=== PATIENT | female | born 1980 | race African-American/Black ===

== ENCOUNTER 2022-09-22 17:31 | Emergency (ER) | payer OTHER ==
--- OUTSIDE RECORDS SUMMARY | 2022-09-22 17:43 | XMS REPORT | Continuity of Care Document ---
:1980 Author Organization [facility] t Address [address] [facility] [address] [place] [address] Care Team Providers Name Role Phone Asked, No Pcp Primary Care Physician Unavailable ADAMS_R Attending Clinician Unavailable Yenny MORENO, Blanco Sanchez Attending Clinician [phone] Tyler MORENO, Yusuf Brown Attending Clinician Evelia Navarrete RN Attending Clinician Unavailable Sae MORENO, Samantha Rushing Attending Clinician [phone] 1 Mateo RNAndria Attending Clinician Unavailable Hallie Medina Attending Clinician Unavailable Brandee Xavier DO Attending Clinician Ramu RNHemalatha Attending Clinician Unavailable Primo MORENO, Ishaan Mercado Attending Clinician Cecilia Obrien MD Attending Clinician Nadege Obrien MD Attending Clinician Den Lea Attending Clinician Noah MORENO, David Britt Attending Clinician Marga MORENO, Nan Attending Clinician Demetrio HAMMOND, Keith Irvin Attending Clinician [phone] Cleo GUTIERRES Attending Clinician Cong Pearson Attending Clinician Jhon Cherry MD Attending Clinician [phone] JIMMIE ALVARADO Attending Clinician Unavailable Marshal Maya Attending Clinician Unavailable Yusuf Castle Attending Clinician Unavailable Delisa Shepherd Attending Clinician Unavailable Chuy Vega Attending Clinician Unavailable ANDRIY_Gee Admitting Clinician Unavailable YUSUF BRADY Admitting Clinician Unavailable Physician, No Primary or Family Admitting Clinician UnavailCECILIA Ray Admitting Clinician Unavailable MD ISHAAN TILLMAN Admitting Clinician Unavailable Marshal Maya Admitting Clinician Unavailable Yusuf Castle Admitting Clinician Unavailable Delisa Shepherd Admitting Clinician Unavailable UNDEFINED Admitting Clinician Unavailable KNOW, DOES_NOT Admitting Clinician Unavailable Payers Payer Name Policy Type Policy Number Effective Date Expiration Date S ource Problems Condition Condition Condition Status Onset Resolution Last Treating Co mments Source Name Details Category Date Date Treatment Clinician Date Diabetes Diabetes Problem Active Lm t mellitus Mellitus 09-17 Clinic 00:00: 00 Osteomyeli Osteomyeli Problem Active C hrist tis of tis of 09-17 Clinic left foot Left Foot 00:00: 00 Generalize Generalize Disease Active M ethodi d weakness d weakness 09-07 st 00:00: Hospita 00 l 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 09-02 st left foot, left foot, 00:00: Ho spita unspecifie unspecifie 00 l d type d type Left foot Left foot Disease Active Met hodi infection infection 06-16 st 00:00: Hospita 00 l Allergies, Adverse Reactions, Alerts Allergy Allergy Status Severity Reaction(s) Onset Inactive Treating Comm ents Source Name Type Date Date Clinician Sulfa Propensi Active Hives Methodi (Sulfona ty to 3-08 st mide adverse 00:00: Hospita Antibiot reaction 00 l ics) s to drug Sulfa DA Active [place] [facility] (Sulfona 8-17 Clear mide 00:00: [facility] Sulfa DA Active [place] [facility] (Sulfona 4-15 Clear mide 00:00: Jj Antibiot 00 [facility] Social History Social Habit Start Date Stop Date Quantity Comments Source Gender identity [facility] Sexual orientation [facility] History of Social 2022-09-08 2022-09-[address] function 00:00:00 00:00:00 Hospital Alcohol intake 2022-09-02 2022-09-02 Lifetime [facility] 00:00:00 00:00:00 non-drinker Hospital (finding) Tobacco use and 2022-06-16 2022-06-16 Smokeless [facility] 00:00:00 00:00:00 tobacco non-user Hospital Sex Assigned At [birth year] [facility] 00[facility] Smoking Status Start Date Stop Date Source Never Smoker [facility] Medications Ordered Filled Start Stop Current Ordering Indication Dosage Frequency Signature Comments Components Source Medication Medication Date Date Medication? Clinician (SIG) Name Name insulin Yes 26U Q.5D Inject Methodi GLARGINE -[address] (LANTUS) 16:41: (26 Units [facility]osp [facility] 100 unit/mL 13 total) l injection under the (vial) skin 2 (two) times a day. insulin Yes Inject Method[facility] lispro [address] (HUMALOG 16:41: skin. Hospita U-100 13 l INSULIN SUBQ) linezolid 2022- No 600mg Q.5D Take 1 Meth abby (ZYVOX) 600 5-30 06-[address] mg tablet 00:00: 04:59 (600 mg Hosp [facility] 00 :00 total) by l mouth 2 (two) times a day for 14 days. levoFLOXaci 2022- No 750mg QD Take 1 Me thodi n 09-07 06-[address] (Levaquin) 00:00: 04:59 (750 mg Hos isabel 750 MG 00 :00 total) by l tablet mouth daily for 14 days. metroNIDAZO 2022- No 500mg [id number] Take 1 Methodi LE (FlagyL) 09-07 06-[id number] 500 MG 00:00: 04:59 3D (500 mg Hospita tablet 00 :00 total) by l mouth 3 (three) times a day for 14 days. insulin Yes 26U Q.5D Inject Methodi GLARGINE 5-[address] (LANTUS) 11:39: (26 Units [facility]osp [facility] 100 unit/mL 09 total) l injection under the (vial) skin 2 (two) times a day. insulin Yes Inject Methodi lispro 5-[address] (HUMALOG 11:32: skin. Hospita U-100 20 l INSULIN SUBQ) insulin Yes Inject Methodi GLARGINE 3-[address] (LANTUS) 20:22: skin. Hospita 100 unit/mL 02 l injection (vial) insulin 0 Yes Inject Method[facility] lispro 3-[address] (HUMALOG 20:22: skin. Hospita U-100 02 l INSULIN SUBQ) polyethylen 2022- No 17g QD Take 17 g Methodi e glycol 3-16 04-[address] (MIRALAX) 00:00: 04:59 daily for Ho spita 17 gram 00 :00 30 days. l packet polyethylen 2022-0 2022- No 17g QD Take 17 g Methodi e glycol 3-16 04-[address] (MIRALAX) 00:00: 04:59 daily for Ho spita 17 gram 00 :00 30 days. l packet polyethylen 2022-0 2022- No 17g QD Take 17 g Methodi e glycol 3-16 04-[address] (MIRALAX) 00:00: 04:59 daily for Ho spita 17 gram 00 :00 30 days. l packet cefTRIAXone 2022-0 2022- No 2g Q24H Infuse 2 g Methodi (ROCEPHIN) 3-16 03-[address] 2 g in 100 00:00: 04:59 venous Hosp [facility] ML Mini-Bag 00 :00 catheter l Plus daily for 14 days. cefTRIAXone 2022- No 2g Q24H Infuse 2 g Methodi (ROCEPHIN) 06-[address] 2 g in 100 00:00: 04:59 venous [facility]osp [facility]a ML Mini-Bag 00 :00 catheter l Plus daily for 14 days. cefTRIAXone 0 2022- No 2g Q24H Infuse 2 g Methodi (ROCEPHIN) 06-[address] 2 g in 100 00:00: 04:59 venous Hosp [facility] ML Mini-Bag 00 :00 catheter l Plus daily for 14 days. [place]DRO[place] [id number] 1{tbl} Q6H Take 1 M ethodi -acetaminop 3-[address] hen (WatchParty) 00:00: mouth Hospi ta 7.5-325 mg 00 every 6 l per tablet (six) hours as needed for severe pain .acute pain. Max Daily Amount: 4 tablets naloxone 0 Yes .2mg Infuse 0.5 Met hodi (NARCAN) 3-15 mL (0.[address] 0.4 mg/mL 00:00: total) Hospit a injection 00 into a l venous catheter once as needed for opioid reversal or respirator y depression (as needed for respirator y rate 8 per minute or less OR patient sommnolent and difficult to arouse (POSS GREATER than 3).). HYDROcodone Yes [id number] 1{tbl} Q6H Take 1 M ethodi -acetaminop 3-[address] hen (WatchParty) 00:00: mouth Hospi ta 7.5-325 mg 00 every 6 l per tablet (six) hours as needed for severe pain .acute pain. Max Daily Amount: 4 tablets naloxone 2022-0 Yes .2mg Infuse 0.5 Met hodi (NARCAN) 3-15 mL (0.[address] 0.4 mg/mL 00:00: total) Hospit a injection 00 into a l venous catheter once as needed for opioid reversal or respirator y depression (as needed for respirator y rate 8 per minute or less OR patient sommnolent and difficult to arouse (POSS GREATER than 3).). HYDROcodone Yes [id number] 1{tbl} Q6H Take 1 M ethodi -acetaminop 3-[address] hen (NORCO) 00:00: mouth Hospi ta 7.5-325 mg 00 every 6 l per tablet (six) hours as needed for severe pain .acute pain. Max Daily Amount: 4 tablets naloxone Yes .2mg Infuse 0.5 Met hodi (NARCAN) 3-15 mL (0.[address] 0.4 mg/mL 00:00: total) Hospit a injection 00 into a l venous catheter once as needed for opioid reversal or respirator y depression (as needed for respirator y rate 8 per minute or less OR patient sommnolent and difficult to arouse (POSS GREATER than 3).). bisacodyL 2022- No 10mg Q24H Insert 1 Met hodi (DULCOLAX) 3-15 -[address] 10 mg 00:00: 04:59 y (10 mg Hospita suppository 00 :00 total) l into the rectum daily as needed for constipati on for up to 30 days. lactulose 2022- No 20g Q.5D Take 30 mL M ethodi 20 gram/30 -15 -15 ([address] mL solution 00:00: 04:59 total) by Hospita 00 :00 mouth 2 l (two) times a day as needed (constipat ion) for up to 30 days. ondansetron 2022- No 4mg Q8H Take 1 Met hodi ODT 3-15 -15 tablet (4 st (ZOFRAN-ODT 00:00: 04:59 mg total) Hospita ) 4 MG 00 :00 by mouth l disintegrat every 8 ing tablet (eight) hours as needed for nausea or vomiting for up to 30 days. sennosides- 2022- No 2{tbl} Q.5D Take 2 M ethodi docusate 3-15 04-[address] sodium 00:00: 04:59 mouth 2 Hospita (SENOKOT-S) 00 :00 (two) l 8.6-50 mg times a per tablet day for 30 days. bisacodyL 2022-0 3- No 10mg Q24H Insert 1 Met hodi (DULCOLAX) 3-15 04-[address] 10 mg 00:00: 04:59 y (10 mg Hospita suppository 00 :00 total) l into the rectum daily as needed for constipati on for up to 30 days. lactulose 2022-0 2023- No 20g Q.5D Take 30 mL M ethodi 20 gram/30 3-15 04-15 ([address] mL solution 00:00: 04:59 total) by Hospita 00 :00 mouth 2 l (two) times a day as needed (constipat ion) for up to 30 days. ondansetron 2022-0 2022- No 4mg Q8H Take 1 Met hodi ODT 3-15 04-15 tablet (4 st (ZOFRAN-ODT 00:00: 04:59 mg total) Hospita ) 4 MG 00 :00 by mouth l disintegrat every 8 ing tablet (eight) hours as needed for nausea or vomiting for up to 30 days. sennosides- 2022-0 2022- No 2{tbl} Q.5D Take 2 M ethodi docusate 3-15 04-[address] sodium 00:00: 04:59 mouth 2 Hospita (SENOKOT-S) 00 :00 (two) l 8.6-50 mg times a per tablet day for 30 days. bisacodyL 2022-0 3- No 10mg Q24H Insert 1 Met hodi (DULCOLAX) 3-15 04-[address] 10 mg 00:00: 04:59 y (10 mg Hospita suppository 00 :00 total) l into the rectum daily as needed for constipati on for up to 30 days. lactulose 3-0 2023- No 20g Q.5D Take 30 mL M ethodi 20 gram/30 3-15 04-15 ([address] mL solution 00:00: 04:59 total) by Hospita 00 :00 mouth 2 l (two) times a day as needed (constipat ion) for up to 30 days. ondansetron 2022-0 2023- No 4mg Q8H Take 1 Met hodi ODT 3-15 04-15 tablet (4 st (ZOFRAN-ODT 00:00: 04:59 mg total) Hospita ) 4 MG 00 :00 by mouth l disintegrat every 8 ing tablet (eight) hours as needed for nausea or vomiting for up to 30 days. sennosides- 2022-0 2022- No 2{tbl} Q.5D Take 2 M ethodi docusate 3-15 04-[address] sodium 00:00: 04:59 mouth 2 Hospita (SENOKOT-S) 00 :00 (two) l 8.6-50 mg times a per tablet day for 30 days. Humalog Humalog No Humalog Porter Jamie [facility] KwikPen KwikPen KwikPen (U-100) 100 (U-100) 100 (U-100) unit/mL unit/mL 100 subcutaneou subcutaneou unit/mL s half-unit s half-unit subcutaneo pen Inject pen Inject us by by half-unit subcutaneou subcutaneou pen Inject s route. s route. by subcutaneo us route. Lantus Lantus No Lantus [facility] U-100 U-100 U-100 Clinic Insulin 100 Insulin 100 Insulin unit/mL unit/mL 100 subcutaneou subcutaneou unit/mL s solution s solution subcutaneo INJECT 25 INJECT 25 us UNITS UNDER UNITS UNDER solution THE SKIN THE SKIN INJECT 25 TWICE A DAY TWICE A DAY UNITS UNDER THE SKIN TWICE A DAY levofloxaci levofloxaci No 1 Q1D levofloxac Porter n 750 mg n 750 mg in 750 mg Cl inic tablet Take tablet Take tablet 1 tablet 1 tablet Take 1 every day every day tablet by oral by oral every day route. route. by oral route. linezolid linezolid No 1 Q12H linezolid Porter 600 mg 600 mg 600 mg Clinic tablet Take tablet Take tablet 1 tablet 1 tablet Take 1 every 12 every 12 tablet hours by hours by every 12 oral route oral route hours by for 14 for 14 oral route days. days. for 14 days. metronidazo metronidazo No metronidaz [facility] le 500 mg le 500 mg ole 500 mg Clinic tablet TAKE tablet TAKE tablet 1 TABLET BY 1 TABLET BY TAKE 1 MOUTH THREE MOUTH THREE TABLET BY TIMES DAILY TIMES DAILY MOUTH THREE TIMES DAILY Vital Signs Vital Name Observation Time Observation Value Comments Source BP Diastolic 2022-09-17 00:00:00 95 mm[Hg] [facility] Height 2022-09-17 00:00:00 71 [in_i] [facility] BP Systolic 2022-09-17 00:00:00 146 mm[Hg] [facility] Systolic blood 2022-09-08 12:46:54 146 mm[Hg] [facility] Hospital pressure Diastolic blood 2022-09-08 12:46:54 81 [facility]Hg[facility] Heart rate 2022-09-08 12:46:54 88 /min [facility] Body temperature 2022-09-08 12:46:54 36.94 Latricia [facility] Respiratory rate 2022-09-08 12:46:54 18 /min [facility] Oxygen saturation in 2022-09-08 12:46:54 99 /min [facility] Arterial blood by Pulse oximetry Systolic blood 2022-09-07 21:09:01 142 mm[Hg] Method ist Hospital pressure Diastolic blood 2022-09-07 21:09:01 74 mm[Hg] [facility] pressure Heart rate 2022-09-07 21:09:01 80 /min [facility] Body temperature 2022-09-07 21:09:01 36.83 Latricia [facility] Respiratory rate 2022-09-07 21:09:01 16 /min [facility] Oxygen saturation in 2022-09-07 21:09:01 100 /min [facility] Arterial blood by Pulse oximetry Body weight 2022-09-02 11:00:00 102.3 kg [facility] BMI 2022-09-02 11:00:00 32.36 kg/m2 [facility] Body height 2022-09-02 04:07:00 177.8 cm [facility] Systolic blood 2022-08-05 22:33:32 119 mm[Hg] [facility] Hospital pressure Diastolic blood 2022-08-05 22:33:32 71 mm[Hg] [facility] Hospital pressure Heart rate 2022-08-05 22:33:32 95 /min [facility] Body temperature 2022-08-05 22:33:32 36.72 Latricia [facility] Respiratory rate 2022-08-05 22:33:32 19 /min [facility] Oxygen saturation in 2022-08-05 22:33:32 100 /min [facility] Arterial blood by Pulse oximetry Body height 2022-06-17 04:34:00 177.8 cm [facility] Body weight 2022-06-17 04:34:00 157.8 kg [facility] BMI 2022-06-17 04:34:00 49.92 kg/m2 [facility] Procedures Procedure Date / Time Performing Clinician Source Performed POC GLUCOSE 2022-09-08 17:31:00 Moosavi, Yusuf [facility] POC GLUCOSE 2022-09-08 13:53:00 Moosavi, Yusuf [facility] POC GLUCOSE 2022-09-08 12:48:00 Tyler, Yusuf [facility] CBC WITH PLATELET AND 2022-09-08 10:45:00 Elvira Rodriguez [facility] DIFFERENTIAL BASIC METABOLIC PANEL 2022-09-08 10:45:00 Elvira Rodriguez [facility] ESTIMATED GFR 2022-09-08 10:45:00 Elvira Rodriguez [facility] MANUAL DIFFERENTIAL 2022-09-08 10:45:00 Elvira Rodriguez [facility] POC GLUCOSE 2022-09-08 01:19:00 Moosavi, Yusuf [facility] POC GLUCOSE 2022-09-07 22:22:00 Moosavi, Yusuf [facility] POC GLUCOSE 2022-09-07 16:17:00 Moosavi, Yusuf [facility] POC GLUCOSE 2022-09-07 12:24:00 Moosachata, Uysuf [facility] CBC WITH PLATELET AND 2022-09-07 09:47:00 Elvira Rodriguezhad [facility] DIFFERENTIAL BASIC METABOLIC PANEL 2022-09-07 09:47:00 Elvira Rodriguez [facility] CREATINE KINASE, TOTAL 2022-09-07 09:47:00 Idalia Glaser [facility] (CPK) ESTIMATED GFR 2022-09-07 09:47:00 Elvira Rodriguez [facility] PICC INSERTION REQUEST 2022-09-07 03:03:[address]asp[address]Dean [facility] POC GLUCOSE 2022-09-07 02:59:00 Moosavi, Yusuf [facility] POC GLUCOSE 2022-09-07 01:08:00 Moosavi, Yusuf [facility] POC GLUCOSE 2022-09-06 22:29:00 Moosavi, Yusuf [facility] POC GLUCOSE 2022-09-06 17:04:00 Moosavi, Yusuf [facility] POC GLUCOSE 2022-09-06 13:20:00 Moosavi, Yusuf [facility] BASIC METABOLIC PANEL 2022-09-06 09:05:00 [facility] WITH [facility] AND 2022-09-06 09:05:00 Elvira Rodriguez [facility] DIFFERENTIAL ESTIMATED GFR 2022-09-06 09:05:00 RudolphBambi [facility] POC GLUCOSE 2022-09-06 04:09:00 Moosavi, Yusuf [facility] POC GLUCOSE 2022-09-06 00:34:00 Moosavi, Yusuf [facility] POC GLUCOSE 2022-09-05 22:53:00 Moosavi, Yusuf [facility] POC GLUCOSE 2022-09-05 18:00:00 Moosavi, Yusuf [facility] TTE COMPLETE, WO CONTRAST, 2022-09-05 15:28:21 Idalia Glaser [facility] W DOPPLER ([id number]) CBC WITH PLATELET AND 2022-09-05 15:02:00 [facility] METABOLIC PANEL 2022-09-05 13:38:00 Rudolph [facility] ESTIMATED GFR 2022-09-05 13:38:00 [facility] 2022-09-05 13:27:00 Moosavi, Yusuf [facility] CREATININE LEVEL 2022-09-05 10:53:00 [facility] ESTIMATED GFR 2022-09-05 10:53:00 [facility] POC GLUCOSE 2022-09-05 06:19:00 Moosavi, Yusuf [facility] POC GLUCOSE 2022-09-05 01:49:00 Moosavi, Yusuf [facility] POC GLUCOSE 2022-09-04 23:37:00 Moosavi, Yusuf [facility] POC GLUCOSE 2022-09-04 19:17:00 Moosavi, Yusuf [facility] POC GLUCOSE 2022-09-04 18:25:00 Moosavi, Yusuf [facility] POC GLUCOSE 2022-09-04 13:58:00 Moosavi, Yusuf [facility] BLOOD CULTURE, AEROBIC & 2022-09-04 08:11:00 [facility] ANAEROBIC CREATININE LEVEL 2022-09-04 08:10:00 [facility] VANCOMYCIN LEVEL, RANDOM 2022-09-04 08:10:00 [facility] ESTIMATED GFR 2022-09-04 08:10:00 [facility] POC GLUCOSE 2022-09-04 02:59:00 Moosavi, Yusuf [facility] POC GLUCOSE 2022-09-04 01:50:00 Moosavi, Yusuf [facility] POC GLUCOSE 2022-09-03 22:20:00 Moosavi, Yusuf [facility] POC GLUCOSE 2022-09-03 17:45:00 Moosavi, Yusuf [facility] POC GLUCOSE 2022-09-03 14:43:00 Moosavi, Yusuf [facility] VANCOMYCIN LEVEL, RANDOM 2022-09-03 13:57:00 [facility] CREATININE LEVEL 2022-09-03 13:57:00 [facility] ESTIMATED GFR 2022-09-03 13:57:00 Jailyn [facility] POC GLUCOSE 2022-09-03 13:22:00 Moosavi, Yusuf [facility] POC GLUCOSE 2022-09-03 03:49:00 Moosavi, Yusuf [facility] MRI LOWER EXTREMITY JOINT 2022-09-03 03[facility] Chika MRI LOWER EXTREMITY W WO 2022-09-03 03:29:34 Jailyn [facility] CONTRAST LEFT POC GLUCOSE 2022-09-03 01:20:00 Moosavi, Yusuf [facility] spital [facility] METHICILLIN-RESISTANT 2022-09-03 00:58:00 [facility] STAPHYLOCOCCUS AUREUS (MRSA), ANIRUDH POC GLUCOSE 2022-09-02 23:19:00 Moosavi, Yusuf [facility] spital [facility]ada[facility] POC GLUCOSE 2022-09-02 22:05:00 Moosavi, Yusuf [facility] POC GLUCOSE 2022-09-02 19:18:00 Moosavi, Yusuf [facility] POC GLUCOSE 2022-09-02 18:24:00 Moosavi, [facility] spital [facility] AEROBIC CULTURE 2022-09-02 17:37:00 Bryson [facility] GRAM STAIN 2022-09-02 17:37:00 Bryson [facility] ANAEROBIC CULTURE 2022-09-02 17:37:00 Bryson [facility] POC GLUCOSE 2022-09-02 15:16:00 Moosavi, Yusuf [facility] spital [facility] CBC WITH PLATELET AND 2022-09-02 11:35:00 Ian Raymundo [facility] DIFFERENTIAL COMPREHENSIVE METABOLIC 2022-09-02 11:35:00 Ian Raymundo [facility] PANEL LACTIC ACID LEVEL, SEPSIS 2022-09-02 11:35:00 Murphy Ramon [facility] - NOW AND REPEAT 2X EVERY Go 3 HOURS ESTIMATED GFR 2022-09-02 11:35:00 Ian Raymundo [facility] HEMOGLOBIN A1C 2022-09-02 11:35:00 Idalia Glaser [facility] URINE CULTURE 2022-09-02 11:32:00 [facility] Go URINALYSIS SCREEN AND 2022-09-02 11:32:00 [facility] MICROSCOPY, WITH REFLEX TO Go CULTURE POC GLUCOSE 2022-09-02 08:30:00 Yusuf Brady [facility] LACTIC ACID LEVEL, SEPSIS 2022-09-02 08:04:00 [facility] - NOW AND REPEAT 2X EVERY Go 3 HOURS BLOOD CULTURE, AEROBIC & 2022-09-02 05:01:00 [facility] ANAEROBIC Go BLOOD CULTURE, AEROBIC & 2022-09-02 05:00:00 [facility] ANAEROBIC Go LACTIC ACID LEVEL, SEPSIS 2022-09-02 05:00:00 [facility] - NOW AND REPEAT 2X EVERY Go 3 HOURS CBC WITH PLATELET AND 2022-09-02 05:00:00 [facility] DIFFERENTIAL Go COMPREHENSIVE METABOLIC 2022-09-02 05:00:00 [facility] PANEL Go PROTHROMBIN TIME WITH INR 2022-09-02 05:00:00 [facility] Go PARTIAL THROMBOPLASTIN 2022-09-02 05:00:00 [facility] TIME (PTT) Go ESTIMATED GFR 2022-09-02 05:00:00 [facility] Go BLOOD CULTURE, AEROBIC & 2022-08-27 08:24:[address] [facility] ANAEROBIC Kristan LACTIC ACID, I-STAT 2022-08-27 07:46:00 [facility] BLOOD CULT[facility], AEROBIC & 2022-08-27 07:05:[address] [facility] ANAEROBIC Kristan CBC WITH PLATELET AND 2022-08-27 07:05:00 Samantha Quevedo Method [facility] DIFFERENTIAL Kristan COMPREHENSIVE METABOLIC 2022-08-27 07:05:00 [facility] PANEL Kristan ESTIMATED GFR 2022-08-27 07:05:00 [facility] 2022-08-27 07:05:00 [facility] XR FOOT 2 VW LEFT 2022-08-27 05:27:45 [facility] POC GLUCOSE 2022-06-23 21:22:[address] [facility] VENIP[facility] NEED PHYS 2022-06-23 19:40:32 AltreVeronique [facility] SKILL,DX OR RX POC GLUCOSE 2022-06-23 17:09:00 [facility] POC GLUCOSE 2022-06-23 13:10:00 [facility] BASIC METABOLIC PANEL 2022-06-23 10:48:00 Keith Atkinson [facility] CBC WITH PLATELET AND 2022-06-23 10:48:00 Marga [facility] DIFFERENTIAL ESTIMATED GFR 2022-06-23 10:48:00 Keith Atkinson [facility] POC GLUCOSE 2022-06-23 10:01:00 [facility] POC GLUCOSE 2022-06-23 02:27:00 Marga, [facility] POC GLUCOSE 2022-06-22 21:26:00 [facility] POC GLUCOSE 2022-06-22 16:54:00 [facility] POC GLUCOSE 2022-06-22 12:51:00 [facility] POC GLUCOSE 2022-06-22 08:09:00 David Zamora POC GLUCOSE 2022-06-22 01:38:00 Zamora, David [facility] POC GLUCOSE 2022-06-21 21:53:00 Zamora, David [facility] POC GLUCOSE 2022-06-21 17:36:00 Zamora, David [facility] POC GLUCOSE 2022-06-21 12:40:00 Zamora, David [facility] POC GLUCOSE 2022-06-21 09:38:00 Zamora, David [facility] POC GLUCOSE 2022-06-21 01:21:00 Zamora, David [facility] POC GLUCOSE 2022-06-20 20:46:00 Zamora, David [facility] POC GLUCOSE 2022-06-20 13:09:00 Zamora, David [facility] COMPREHENSIVE METABOLIC 2022-06-20 09:10:00 [facility] [facility] PANEL [facility] ESTIMATED GFR 2022-06-20 09:10:00 MicahNadege capellan Ho spital VANCOMYCIN LEVEL, TROUGH 2022-06-20 09:10:00 [facility] CBC WITH PLATELET AND 2022-06-20 09:10:00 Zamora, [facility] DIFFERENTIAL Balwinder POC GLUCOSE 2022-06-20 03:12:00 Zamora, David [facility] Balwinder POC GLUCOSE 2022-06-19 23:02:00 Zamora, David [facility] Balwinder POC GLUCOSE 2022-06-19 18:12:00 Zamora, David Bateman Ho spital Balwinder XR FOOT 3+ VW LEFT 2022-06-19 15:16:52 Demetrio, [facility] POC GLUCOSE 2022-06-19 14:43:00 Zamora, David Ghosh spital Balwinder FUNGUS CULTURE 2022-06-19 14:22:00 Demetrio bebo Ghosh spital [employer] CULTURE 2022-06-19 14:22:00 Keith Atkinson spital [employer] GRAM STAIN 2022-06-19 14:22:00 [facility]GICAL PATHOLOGY REQUEST 2022-06-19 13:59:00 [facility], FOOT, 2022-06-19 13:50:00 Demetrio [facility] TRANSMETATARSAL Brandee ANAEROBIC CULTURE 2022-06-19 13:22:00 Demetrio [facility] Brandee AEROBIC CULTURE 2022-06-19 13:22:00 Keith Atkinson [facility] Brandee FUNGUS SMEAR 2022-06-19 13:22:00 [facility] [employer] STAIN 2022-06-19 13:22:00 [facility]rio [facility] Brandee COMPREHENSIVE METABOLIC 2022-06-19 12:12:00 Demetrio bebo [facility] PANEL Brandee CBC WITH PLATELET AND 2022-06-19 12:12:00 [facility] Brandee ESTIMATED GFR 2022-06-19 12:12:00 Dem[facility]rio [facility] Brandee PROTHROMBIN TIME WITH INR 2022-06-19 12:12:00 [facility] Yusuf POC GLUCOSE 2022-06-19 09:46:00 [facility] Yusuf ESTIMATED GFR 2022-06-19 08:29:00 [facility] Yusuf POC GLUCOSE 2022-06-19 05:34:00 [facility] Yusuf POC GLUCOSE 2022-06-19 02:27:00 [facility] Yusuf POC GLUCOSE 2022-06-18 22:10:00 [facility] Yusuf BASIC METABOLIC PANEL 2022-06-18 20:30:[address] [facility] Brandee CBC WITH PLATELET AND 2022-06-18 20:30:[address] [facility] DIFFERENTIAL Kunjan ESTIMATED GFR 2022-06-18 20:30:00 [facility] Yusuf POC GLUCOSE 2022-06-18 14:21:00 [facility] Yusuf [place] AN ELECTIVE 2022-06-18 12:59:18 Lilian Pineda Ho spital [employer] [place] POC GLUCOSE 2022-06-18 12:29:00 [facility] Yusuf POC GLUCOSE 2022-06-18 03:30:00 [facility] Yusuf POC GLUCOSE 2022-06-17 22:13:00 [facility] Yusuf POC GLUCOSE 2022-06-17 18:07:00 [facility] Yusuf XR FOOT 3+ VW LEFT 2022-06-17 16:53:57 Demetrio [facility] SURGICAL PATHOLOG[facility] REQUEST 2022-06-17 15:10:00 [facility] Yusuf POC GLUCOSE 2022-06-17 14:35:00 [facility] Yusuf POC GLUCOSE 2022-06-17 13:35:00 [facility] Yusuf FUNGUS CULTURE 2022-06-17 13:12:00 Keith Atkinson spital [employer] CULTURE 2022-06-17 13:12:00 Keith Atkinson spital [employer] GRAM STAIN 2022-06-17 13:12:00 Demetrio bebo Ghosh spital [employer] AMPUTATION, FOOT, 2022-06-17 12:43:00 Demetrio [facility] TRANSMETATARSAL Brandee ANAEROBIC CULTURE 2022-06-17 12:12:00 [facility] AEROBIC CULTURE 2022-06-17 12:12:00 Keith Atkinson spital [employer] STAIN 2022-06-17 12:12:00 Keith Atkinson spital [employer] ABO AND RH CONFIRMATION BY 2022-06-17 12:08:00 Nadege Obrien [facility] PROTOCOL PROTHROMBIN TIME WITH INR 2022-06-17 11:45:00 Keith Atkinson [facility] Brandee TYPE AND SCREEN 2022-06-17 11:45:00 Keith Atkinson spital Brandee POC GLUCOSE 2022-06-17 11:42:00 Nadege Obrien Ho spital US DUPLEX ARTERIAL LOWER 2022-06-17 10:30:[address] [facility] EXTREMITY LEFT CBC HEMOGRAM 2022-06-17 10:20:00 Nadege Obrien spital MAGNESIUM LEVEL 2022-06-17 10:20:00 Nadege Obrien spital THYROID STIMULATING 2022-06-17 10:20:00 Nadege Obrien [facility] HORMONE CREATINE KINASE, TOTAL 2022-06-17 10:20:00 Nadege Obrien [facility] ([facility] VITAMIN B12 LEVEL 2022-06-17 10:20:00 [facility] Brand[facility] B NATRIURETIC PEPTIDE 2022-06-17 10:20:00 Nadege Obrien [facility] PROCALCITONIN 2022-06-17 10:20:00 Keith Atkinson spital Brandee COMPREHENSIVE METABOLIC 2022-06-17 10:20:00 Nadege Obrien [facility] PANEL ESTIMATED GFR 2022-06-17 10:20:00 Nadege Obrien spital AMYLASE LEVEL 2022-06-17 10:20:00 Nadege Obrien spital FERRITIN LEVEL 2022-06-17 10:20:00 Nadege Obrien spital TOTAL IRON BINDING 2022-06-17 10:20:00 Micah [facility] CAPACITY URINE CULTURE 2022-06-17 08:11:[address] LOWER EXTREMITY WO 2022-06-17 08:09:39 Nadege Obrien [facility] CONTRAST LEFT CT HEAD WO CONTRAST 2022-06-17 07:54:30 Micah [facility] URINALYSIS SCREEN AND 2022-06-17 07:40:00 [facility] MICROSCOPY, WITH REFLEX TO CULTURE SODIUM LEVEL, URINE, 2022-06-17 07:40:00 [facility] RANDOM CHLORIDE LEVEL, URINE, 2022-06-17 07:40:00 [facility] RANDOM OSMOLALITY, URINE 2022-06-17 07:40:00 [facility] HCG QUALITATIVE, URINE 2022-06-17 07:40:00 [facility] SCREEN ECG 12-LEAD 2022-06-17 06:15:21 [facility] spital METHICILLIN-RESISTANT 2022-06-17 05:35:00 [facility] STAPHYLOCOCCUS AUREUS (MRSA), ANIRUDH LACTIC ACID LEVEL 2022-06-17 05:35:00 [facility] PROCALCITONIN 2022-06-17 05:35:00 [facility] spital XR FOOT 3+ VW LEFT 2022-06-17 04:01:51 [facility] Rogelio TROPONIN T 2022-06-17 03:46:00 [facility] hyac[facility]htal Brandee TROPONIN, I-STAT 2022-06-17 00:39:00 Keith Atkinsonist H ospital Brandee SEDIMENTATION RATE 2022-06-17 00:39:00 [facility] Rogelio C-REACTIVE PROTEIN 2022-06-17 00:39:00 [facility] Rogelio CT RENAL STONE PROTOCOL 2022-06-16 23:59:00 [facility] Rogelio XR CHEST 2 VW 2022-06-16 23:58:45 [facility] spital Rogelio COVID-19, INFLUENZA A&B, 2022-06-16 21:58:00 [facility] AND RSV QUALITATIVE RT-PCR Rogelio CBC WITH PLATELET AND 2022-06-16 21:58:00 [facility] DIFFERENTIAL Rogelio COMPREHENSIVE METABOLIC 2022-06-16 21:58:00 [facility] PANEL Rogelio TROPONIN, I-STAT 2022-06-16 21:58:00 Keith Atkinson NATRIURETIC PEP, I-STAT 2022-06-16 21:58:00 Ishaan Tillman [facility] Rogelio AMYLASE LEVEL 2022-06-16 21:58:00 Ishaan Tillman Ho spital Rogelio ESTIMATED GFR 2022-06-16 21:58:00 Ishaan Tillman spital Rogelio MANUAL DIFFERENTIAL 2022-06-16 21:58:00 [facility] ED PRELIMINARY 2022-06-16 21:57:50 [facility] INTERPRETATION Rogelio BLOOD CULTURE, AEROBIC & 2022-06-16 21:05:[address] [facility] ANAEROBIC Rogelio BLOOD CULTURE, AEROBIC & 2022-06-16 21:00:[address] [facility] ANAEROBIC Rogelio ECG 12-LEAD 2022-06-15 21:51:22 Nadege Obrien Ho spital [id number] 2022-02-12 00:00:00 [facility] [id number] 2022-02-12 00:00:00 [facility] [id number] 2022-02-08 00:00:00 [facility] [id number] 2021-11-30 00:00:00 BOKSY [facility] [id number] 2021-11-27 00:00:00 SCOTTIE.01 [facility] [id number] 2021-11-27 00:00:00 SCOTTIE.01 [facility] [id number] 2021-10-15 00:00:00 NASLI.01 [facility] [id number] 2021-10-14 00:00:00 NASLI.01 [facility] [id number] 2021-10-12 00:00:00 NASLI.01 [facility] [id number] 2021-10-08 00:00:00 [facility] [id number] 2021-10-08 00:00[facility] [id number] 2021-10-08 [facility] Plan of Care Planned Activity Planned Date Details Comments Source Future Scheduled 2022-09-17 COVID-19 VACCINE (#1) [facility] Test 09:10:33 [code = COVID-19 VACCINE (#1)] Future Scheduled 2022-09-17 Pneumococcal Vaccine: [facility] Test 09:10:33 Pediatrics (0 to 5 Years) and At-Risk Patients (6 to 64 Years) (1 - PCV) [code = Pneumococcal Vaccine: Pediatrics (0 to 5 Years) and At-Risk Patients (6 to 64 Years) (1 - PCV)] Future Scheduled 2022-09-17 DIABETES: RETINAL EYE [facility] Test 09:10:33 EXAM [code = DIABETES: RETINAL EYE EXAM] Future Scheduled 2022-09-17 [facility] 09:10:33 [code = URINE MICROALBUMIN] Future Scheduled 2022-09-17 Hepatitis C screening [facility] Test 09:10:33 (procedure) [code = 155275713] Future Scheduled 2022-09-17 [facility] Test 09:10:33 malignant neoplasm of cervix (procedure) [code = 626232675] Future Scheduled 2022-09-17 BREAST CANCER [facility] Test 09:10:33 SCREENING [code = BREAST CANCER SCREENING] Future Scheduled 2022-09-17 INFLUENZA VACCINE [facility] 09:10:33 [code = INFLUENZA VACCINE] Future Scheduled 2022-09-17 [facility]ETIC [facility] Test 09:10:33 [code = DIABETIC FOOT EXAM] Diagnostic Test 2022-09-17 HbA1c (hemoglobin [facility] Pending 00:00:00 A1c), blood [code = HbA1c (hemoglobin A1c), blood] Diagnostic Test 2022-09-17 glucose, fingerstick, [facility] Pending 00:00:00 blood [code = glucose, fingerstick, blood] Future Scheduled 2022-09-07 COVID-19 VACCINE (#1) [facility] Test 14:47:37 [code = COVID-19 VACCINE (#1)] Future Scheduled 2022-09-07 Pneumococcal Vaccine: [facility] Test 14:47:37 Pediatrics (0 to 5 Years) and At-Risk Patients (6 to 64 Years) (1 - PCV) [code = Pneumococcal Vaccine: Pediatrics (0 to 5 Years) and At-Risk Patients (6 to 64 Years) (1 - PCV)] Future Scheduled 2022-09-07 DIABETES: RETINAL EYE [facility] Test 14:47:37 EXAM [code = DIABETES: RETINAL EYE EXAM] Future Scheduled 2022-09-07 [facility] Test 14:47:37 [code = URINE MICROALBUMIN] Future Scheduled 2022-09-07 Hepatitis C screening [facility] Test 14:47:37 (procedure) [code = 173198102] Future Scheduled 2022-09-07 [facility] Test 14:47:37 malignant neoplasm of cervix (procedure) [code = 128465556] Future Scheduled 2022-09-07 BREAST CANCER [facility] Test 14:47:37 SCREENING [code = BREAST CANCER SCREENING] Future Scheduled 2022-09-07 INFLUENZA VACCINE [facility] Test 14:47:37 [code = INFLUENZA VACCINE] Future Scheduled 2022-09-07 [facility] Test 14:47:37 [code = DIABETIC FOOT EXAM] Future Scheduled 2022-08-10 COVID-19 VACCINE (#1) [facility] Test 09:04:27 [code = COVID-19 VACCINE (#1)] Future Scheduled 2022-08-10 Pneumococcal Vaccine: [facility] Test 09:04:27 Pediatrics (0 to 5 Years) and At-Risk Patients (6 to 64 Years) (1 - PCV) [code = Pneumococcal Vaccine: Pediatrics (0 to 5 Years) and At-Risk Patients (6 to 64 Years) (1 - PCV)] Future Scheduled 2022-08-10 DIABETES: RETINAL EYE [facility] Test 09:04:27 EXAM [code = DIABETES: RETINAL EYE EXAM] Future Scheduled 2022-08-10 [facility] Test 09:04:27 [code = URINE MICROALBUMIN] Future Scheduled 2022-08-10 Hepatitis C screening [facility] Test 09:04:27 (procedure) [code = 878106340] Future Scheduled 2022-08-10 [facility] Test 09:04:27 malignant neoplasm of cervix (procedure) [code = 110155348] Future Scheduled 2022-08-10 BREAST CANCER [facility] Test 09:04:27 SCREENING [code = BREAST CANCER SCREENING] Future Scheduled 2022-08-10 INFLUENZA VACCINE [facility] Test 09:04:27 [code = INFLUENZA VACCINE] Future Scheduled 2022-08-10 DIABETIC FOOT [facility]AM [facility] Test 09:04: [code = DIABETIC FOOT EXAM] Encounters Start End Encounter Admission Attending Care Care Encounter Source Date/Time Date/Time Type Type Clinicians Facility Department ID 2022-09-20 2022-09-20 Outpatient [facility] [id number] [facility]:00:00 00:00:00 06 Clinic 2022-09-17 2022-09-17 Outpatient [facility] [id number] [facility] 00:00:00 00:00:00 0609 [facility] 2022-09-17 2022-09-17 Tahira [facility] [place] - [facility] 09 [facility] 00:00:00 00:00:00 [facility] Musa Emerson 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 2022-09-16 2022-09-16 Outpatient [facility] [id number] [facility] 00:00:00 00:00:00 0608 [facility] 2022-09-15 2022-09-15 Outpatient [facility] [id number] [facility] 00:00:00 00:00:00 0607 [facility] 2022-09-01 2022-09-08 [facility] Schuyler RamonMason 1.2.840.1 [id number] Methodi 23:08:00 16:41:00 Encounter TylerYusuf 27245.1.[address] 3.430.2.7 Hospit a .3.698031 l .8 2022-09-08 2022-09-08 Orders Evelia Navarrete 1.2.840.1 [id number] Methodi 00:00:00 00:00:[address] 3.430.2.7 Hospit a .3.666407 l .8 2022-09-01 2022-09-08 [facility], 1.2.840.1 [id number] 2099 [id number] [place] 00:00:00 00:00:00 Encounter YUSUF 52729.1.1 [address] .3.172554 .8 2022-09-02 2022-09-02 Travel 1.2.840.1 1.2.601.567 0878 [id number] Methodi 00:00:00 00:00:[address] 3.430.2.7 0.2.7.3.698 Ho spita .3.126171 084.8 l .8 2022-09-02 2022-09-02 Travel 1.2.840.1 1.2.727.437 8596 024058 Methodi 00:00:00 00:00:[address] 3.430.2.7 0.2.7.3.698 Ho spita .3.868087 084.8 l .8 2022-08-26 2022-08-27 Emergency Nweze, 1.2.840.1 [id number] 2099 [id number] Methodi 23:54:00 04:10:[address] Kristan 3.430.2.7 Hosp sonya .3.285749 l .8 2022-08-26 2022-08-27 Emergency Nweze, 1.2.840.1 [id number] 2099 [id number] Methodi 23:54:00 04:10:[address] Kristan 3.430.2.7 Hosp sonya .3.996076 l .8 2022-08-26 2022-08-26 Travel 1.2.840.1 1.2.219.727 2882 049464 Methodi 00:00:00 00:00:[address] 3.430.2.7 0.2.7.3.698 Ho spita .3.957469 084.8 l .8 2022-08-26 2022-08-26 Travel 1.2.840.1 1.2.508.396 7593 819714 Methodi 00:00:00 00:00:[address] 3.430.2.7 0.2.7.3.698 Ho spita .3.585567 084.8 l .8 2022-08-12 2022-08-12 Abstract Mindy Galindoi 1.2.840.1 [id number] 2 [id number] Methodi 00:00:00 00:00:[address] 3.430.2.7 Hospit a .3.899557 l .8 2022-08-12 2022-08-12 Abstract Mateo Andria 1.2.840.1 [id number] 2 [id number] Methodi 00:00:00 00:00:[address] 3.430.2.7 Hospit a .3.201774 l .8 2022-08-10 2022-08-11 Emergency EM Carol, [facility] WENDY [id number] [facility] 18:52:00 00:15:[address] 2022-08-05 2022-08-05 Emergency [facility], 1.2.840.1 [id number] Methodi 18:57:00 20:12:[address] 3.430.2.7 Hospit a .3.317200 l .8 2022-08-05 2022-08-05 Travel 1.2.840.1 1.2.633.373 1175 [id number] Methodi 00:00:00 00:00:[address] 3.430.2.7 0.2.7.3.698 Ho spita .3.812357 084.8 l .8 2022-08-05 2022-08-05 Emergency [facility] 807 [id number] 392 [place] 00:00:00 00:00:[address]AN[address] 2022-08-05 2022-08-05 Travel 1.2.840.1 1.2.825.081 9892 745577 Methodi 00:00:00 00:00:[address] 3.430.2.7 0.2.7.3.698 Ho spita .3.035510 084.8 l .8 2022-06-29 2022-06-29 Orders Obi, Hemalatha 1.2.840.1 [id number] 053 [id number] Methodi 00:00:00 00:00:[address] 3.430.2.7 Hospit a .3.221147 l .8 2022-06-29 2022-06-29 Orders Obi, Hemalatha 1.2.840.1 [id number] Methodi 00:00:00 00:00:[address] 3.430.2.7 Hospit a .3.989411 l .8 2022-06-16 2022-06-23 [facility] Ishaan Tillman 1.2.840.1 1 [id number] Methodi 15:30:00 20:22:00 Encounter Cecilia Obrien 75223.1.[address] Micah, Nadege 3.430.2.7 [facility] .3.869946 l David Zamora .8 Nan Gresham 2022-06-16 2022-06-23 [facility] 1.2.840.1 1 [id number] Methodi 15:30:00 20:22:00 Encounter MicahCecilia capellan 01864.1.[address] Micah, Nadege 3.430.2.7 [facility] Yusuf .3.163917 l David Zamora .8 Nan Gresham 2022-06-19 2022-06-19 Surgery Demetrio, 1.2.840.1 [id number] Methodi 08:00:00 09:20:[address] Kunjan 3.430.2.7 Hospit a .3.736741 l .8 2022-06-19 2022-06-19 Surgery Demetrio, 1.2.840.1 [id number] 9466 Methodi 08:00:00 09:20:[address] Kunjan 3.430.2.7 Hospit a .3.635125 l .8 2022-06-19 2022-06-19 Anesthesia , Cleo 1.2.840.1 [id number] 426 [id number] Methodi 07:50:00 08:39:00 Event Lili, Cong Redd 89670.1.[address] 3.430.2.7 Hospit a .3.706189 l .8 2022-06-19 2022-06-19 Anesthesia Tom, Cleo 1.2.840.1 [id number] 779 [id number] Methodi 07:50:00 08:39:00 Event Lili, Cong Redd 85633.1.[address] 3.430.2.7 Hospit a .3.326043 l .8 2022-06-17 2022-06-17 Surgery Demetrio, 1.2.840.1 [id number] 7373 Methodi 07:10:00 08:40:[address] Kunjan 3.430.2.7 Hospit a .3.621971 l .8 2022-06-17 2022-06-17 Surgery Demetrio, 1.2.840.1 [id number] 3464 Methodi 07:10:00 08:40:[address] Kunjan 3.430.2.7 Hospit a .3.545771 l .8 2022-06-17 2022-06-17 Anesthesia [facility] 1.2.840.1 [id number] Methodi 06:43:00 07:34:00 Event janie, 42935.1.[address] Jhon 3.430.2.7 Hosp sonya .3.819814 l .8 2022-06-17 2022-06-17 Anesthesia Pasdar-Ambar 1.2.840.1 [id number] Methodi 06:43:00 07:34:00 Event janie, 37853.1.[address] Jhon 3.430.2.7 Hosp sonya .3.153550 l .8 2022-06-16 2022-06-16 Travel 1.2.840.1 1.2.928.930 2774 519004 Methodi 00:00:00 00:00:[address] 3.430.2.7 0.2.7.3.698 Ho spita .3.224484 084.8 l .8 2022-06-16 2022-06-16 Travel 1.2.840.1 1.2.610.718 5461 601672 Methodi 00:00:00 00:00:[address] 3.430.2.7 0.2.7.3.698 Ho spita .3.412065 084.8 l .8 2022-03-11 2022-03-11 Outpatient [facility] [id number] [facility] 00:00:00 00:00:00 JIMMIE 2022-02-08 2022-02-13 Inpatient EM CRYSTAL Maya MEDI.01 [id number] [facility] 00:23:00 13:44:00 Musaddiq 12 [facility] 2022-02-08 2022-02-08 Outpatient ONI Maya LABO [id number] [facility] 00:43:00 00:43:00 Musaddiq 97 [facility] 2021-11-25 2021-12-07 Inpatient EM CRYSTAL Castle INTE.02 [id number] [facility] 18:22:00 18:52:00 Yusuf 30 [facility] 2021-10-08 2021-10-22 Inpatient EM MARY Shepherd INTE [id number] [facility] 21:44:00 18:23:00 Delisa [id number] [facility] 2021-10-08 2021-10-22 Inpatient EM Cora, HCACL INTE [id number] [facility] 21:44:00 18:23:00 Delisa 26 [facility] 2021-10-09 2021-10-09 Outpatient NEERU Vega, HCACL LABO [id number] [facility] 00:42:00 00:42:00 Chuy 73 [facility] 2021-10-09 2021-10-09 Outpatient NEERU Vega, HCACL HCACL [id number] [facility] 00:42:00 00:42:00 Chuy [id number] [facility] 2021-10-08 2021-10-08 Emergency EM Silvia, HCAPM WENDY [id number] [facility] 13:58:00 20:10:00 Chuy 63 [facility] 2021-10-08 2021-10-08 Emergency EM Silvia, HCAPM HCAPM [id number] [facility] 13:58:00 20:10:00 Chuy [id number] [facility] 2017-06-17 2017-06-17 [facility] [id number] [place] 00:00:00 00:00:00 [facility] Results Test Description Test Time Test Comments Results Result Comments Source Hemoglobin A1c/Hemoglobin.total in Blood 2022-09-17 15:45:47 Test Item Value Reference Range Interpretation Comme nts HbA1c (test code = HbA1c) 8.2 [facility] [Mass/volume] in Capillary [id number] 15:34:50 Test Item Value Reference Range Interpretation Comments Blood Glucose: mg/dl (test code = Blood 502 Glucose: mg/dl) [facility] [id number] 17:32:00 Test Item Value Reference Range Interpretation Comments POC glucose (test code 119 mg/dL 65-99 H Opera ebenezer Name: Estuardo = 45119-2) UmbargerDevice ID: [id number] able: HMW Notified public health technician Interpretation Abnormal (test code = 47594-4) [facility] [id number] 16:18:00 Test Item Value Reference Range Interpretation Comments POC glucose (test code 160 mg/dL 65-99 H Opera tor Name: Sussy = 82004-0) Sommer ID: [id number] able: HMW Notified public health technician Interpretation Abnormal (test code = 22933-0) [id number] 19:28:00 Test Item Value Reference Interpretation Comments Range Anaerobic culture Porphyromonas A Specimen isolate ([facility] Information[facility] code = 49498-1) performance Source: Woun dSpecimen characteristics of Site: Paxton muñoz, left this assay on this isolatewere validated by the Microbiology Laboratory at [facility]. This source has not been approved by the U.S. Food and Drug Administration. The results are not intended to be used as the sole means for clinical diagnosis or patient management. The Microbiology Laboratory is authorized under the clinical Laboratory Improvement Amendments of 1988 (CLIA-88) to perform high complexity testing. Lab Abnormal Interpretation (test code = 54506-8) [facility] [id number] 19:28:00 Test Item Value Reference Interpretation Comments Range Anaerobic culture Porphyromonas A Specimen isolate ([facility] InformationSpe [facility] code = 86402-7) performance Source: Woun dSpecimen characteristics of Site: Paxton t, leonides this assay on this isolatewere validated by the Microbiology Laboratory at [facility]. This source has not been approved by the U.S. Food and Drug Administration. The results are not intended to be used as the sole means for clinical diagnosis or patient management. The Microbiology Laboratory is authorized under the clinical Laboratory Improvement Amendments of 1988 (CLIA-88) to perform high complexity testing. Lab Abnormal Interpretation (test code = 56947-0) [facility], (w Contrast, Strain and 3D if needed)2022-09-05 15:50:16 Test Item Value Reference Interpretation Comments Range IVS,d (test code = 0.84 cm 0.6-1.19 [id number]) IVS s 2D (test code 1.43 cm = 5567928466) LVPWD,d (test code = 1.07 cm 0.60-1.19 1862779107) LVPW s PLAX (test 1.31 cm code = 6775711425) LV,s (test code = 3.65 cm 3617229432) LV mass (test code = 173.59 g 9913822820) LVOT Diam,S (test 1.97 cm code = 9135424288) LV [place] VOL (test 120.24 ml 46-106 A code = 0384265647) LV SYS VOL (test 56.08 ml 14-42 A code = 2405745623) MV [place] (test 1.00 m/s code = 5769873292) MV [place] A [place] (test 0.60 m/s code = 4389773438) E/A ratio (test code 1.67 <=0.8 A = 3599078024) E wave decelartion 185.12 See_Comment A [Automat ed time (test code = message] T he [id number]) system which generated this result transmitted reference range : 200 msec. The reference range was not used to interpret this result as normal/abnormal . LV,d (test code = 5.04 cm 2915963117) IVS/LVPW,2D (test 0.79 code = 6245881069) LV EF,2D (test code 62.09 % = 5788374387) LV FS Cube 2D (test 27.62 code = 2597086766) LV FS Teich 2D (test 27.62 code = 1684880525) LV SV Teich 2D (test 64.16 ml code = 1869657623) LV Vol s Teich PSAX 56.08 ml (test code = 1121363962) LVOT stroke volume 0.49 cm3 (test code = 9156559749) Left Atrium 3.82 cm <=3.8 A Dimension Anterior (test code = 1248142521) LA Vol MOD A4C (test 49.39 ml code = 0645656186) LA area s A4C (test 19.64 cm2 code = 3531336170) LVOT area (test code 3.05 cm2 = 6624547291) LVOT Vmax (test code 0.92 m/s = 5292779030) AoV Mean PG (test 3.41 See_Comment [Automate d code = 2213931864) message] The system which generated this result transmitted reference range : 20 mmHg. The reference range was not used to interpret this result as normal/abnormal . AoV Peak PG (test 6.37 mmHg code = 6184207797) AV LVOT peak 3.37 mmHg gradient (test code = 0270033464) AoV Area, Vmax (test 2.23 cm2 >=1.5 code = 7156134285) LVOT VTI (CM) (test 16.00 cm code = 6757401363) AoV Vmax (test code 1.26 m/s = 3680713162) AoV Vmn (test code = 0.87 m/s 4609290238) AoV Area, VTI (test 1.83 cm2 code = 1465954267) LVOT CO (test code = 3.77 l/min 2266829652) LVOT HR for LVOT CO 79.02 bpm (test code = 8701292391) Velocity Ratio 0.73 m/s (V1/V2) (test code = 4689) MV mean gradient 0.88 See_Comment [Automated (test code = message] The 6622783932) system which generated this result transmitted reference range : 5 mmHg. The reference range was not used to interpret this result as normal/abnormal . MR peak grad (test 2.05 mmHg code = 7312945928) MV stenosis pressure 53.68 ms <=150 1/2 time (test code = 9374569371) MV E A ratio (test 1.68 code = 3324796111) MV valve area p 1/2 4.10 cm2 method (test code = 3597713158) MV VTI Tips (test 0.16 m code = 5649213475) MV Vmax (test code = 0.72 m 7512643084) RVOT Vmax (test code 0.60 m/s = 8074347749) PV Mean Grad (test 1.44 mmHg code = 7102557046) PV Pk Grad (test 2.57 See_Comment [Automated code = 4728194848) message] The system which generated this result transmitted reference range : 36 mmHg. The reference range was not used to interpret this result as normal/abnormal . PV VTI (test code = 0.18 m 7539966851) RVOT pk grad (test 1.45 mmHg code = 3332684942) PV VMAX (test code = 0.80 m/s <=3 3835845487) PV Vmn (test code = 0.57 7404254993) Ao Root Diameter 2.57 cm <=3.99 (test code = 6655985835) Ao Root Diameter 2.57 cm (test code = 1324327662) Ascending aorta 2.04 cm (test code = 8027460307) Pred METS R1 (test 9.27 code = 7064759508) Pred Exer Dur R1 9.88 (test code = 2999421343) MV Decel slope (test 5.42 m/s2 code = 2579741445) LVPW pct thck PLAX 21.87 % (test code = 0542343885) LV vol s cube 2D 48.43 ml (test code = 0150227402) LV vol d cube 2D 127.73 ml (test code = 1450981926) LV SV Cube 2D (test 79.30 ml code = 4878200531) IVS pct thck PLAX 69.63 % (test code = 7006364916) Calc MPHR (test code 178.23 bpm = 7375975187) 85 of MPHR (test 151.50 code = 3063409734) RVOT VTI (test code 0.13 m = 6278657553) RVOT Vmn (test code 0.45 m/s = 4580939737) RVOT mean grad (test 0.89 mmHg code = 6918099941) LVOT mean grad (test 1.61 mmHg code = 9537944894) Aov area Vmn (test 2.10 cm2 code = 5761055333) MV AE ratio (test 0.59 code = 7301756051) LVOT Vmn (test code 0.60 = 4724542478) AoV VTI (test code = 0.26 m 3837800453) LVOT VTI (test code 0.16 m = 3693909153) BECKY (test code = BECKY) Left Ventricle: Normal wall motion. Normal systolic function with a visually estimated EF of 55 - 60%. Right Ventricle: Normal systolic function. Pericardium: There is no pericardial effusion present. Left VentricleLeft ventricle size is normal. Normal wall thickness. Normal wall motion. Normal systolic function with a visually estimated EF of 55 - 60%.Right VentricleRight ventricle size is normal. Normal systolic function.Left AtriumLeft atrium size is normal.Right AtriumRight atrium size is normal.Mitral ValveValve structure is normal. No significant valvular regurgitation. No stenosis.Tricuspid ValveValve structure is normal. No significant valvular regurgitation. No stenosis.Aortic ValveValve structure is normal. No significant valvular regurgitation. No stenosis.Pulmonic ValveValve structure is normal. No significant valvular regurgitation. No stenosis.Pericardium There is no pericardial effusion present.AortaNormal sized aortic root.Study DetailsStudy quality was adequate. A complete 2D, color flow Doppler and spectral Doppler echocardiogram was performed. Technical difficulties due to patient's body habitus and lung artifact. Lab Interpretation Abnormal (test code = 61059-8) [facility], (w Contrast, Strain and 3D if needed)2022-09-05 15:50:16 Test Item Value Reference Interpretation Comments Range IVS,d (test code = 0.84 cm 0.6-1.19 6764604303) IVS s 2D (test code 1.43 cm = 6461769251) LVPWD,d (test code = 1.07 cm 0.60-1.19 1603902570) LVPW s PLAX (test 1.31 cm code = 3093139333) LV,s (test code = 3.65 cm 2548884300) LV mass (test code = 173.59 g 9899435850) LVOT Diam,S (test 1.97 cm code = 5836245530) LV SHE[place]TON VOL (test 120.24 ml 46-106 A code = 9838240922) LV SYS VOL (test 56.08 ml 14-42 A code = 4177081166) MV Peak E [place] (test 1.00 m/s code = 0075018215) MV Peak A [place] (test 0.60 m/s code = 7316847203) E/A ratio (test code 1.67 <=0.8 A = 7296242852) E wave decelartion 185.12 See_Comment A [Automat ed time (test code = message] T he 2200468026) system which generated this result transmitted reference range : 200 msec. The reference range was not used to interpret this result as normal/abnormal . LV,d (test code = 5.04 cm 4819716345) IVS/LVPW,2D (test 0.79 code = 7675208163) LV EF,2D (test code 62.09 % = 7042487854) LV FS Cube 2D (test 27.62 code = 7100160349) LV FS Teich 2D (test 27.62 code = 6508784787) LV SV Teich 2D (test 64.16 ml code = 3289000690) LV Vol s Teich PSAX 56.08 ml (test code = 2397973104) LVOT stroke volume 0.49 cm3 (test code = 3624589947) Left Atrium 3.82 cm <=3.8 A Dimension Anterior (test code = 1726469016) LA Vol MOD A4C (test 49.39 ml code = 3360907064) LA area s A4C (test 19.64 cm2 code = 0931782057) LVOT area (test code 3.05 cm2 = 4103482985) LVOT Vmax (test code 0.92 m/s = 2671913720) AoV Mean PG (test 3.41 See_Comment [Automate d code = 1950174721) message] The system which generated this result transmitted reference range : 20 mmHg. The reference range was not used to interpret this result as normal/abnormal . AoV Peak PG (test 6.37 mmHg code = 5854695929) AV LVOT peak 3.37 mmHg gradient (test code = 4216982784) AoV Area, Vmax (test 2.23 cm2 >=1.5 code = 2934364153) LVOT VTI (CM) (test 16.00 cm code = 1088889834) AoV Vmax (test code 1.26 m/s = 0501855739) AoV Vmn (test code = 0.87 m/s 6107047949) AoV Area, VTI (test 1.83 cm2 code = 4459062233) LVOT CO (test code = 3.77 l/min 1449935330) LVOT HR for LVOT CO 79.02 bpm (test code = 5420549578) Velocity Ratio 0.73 m/s (V1/V2) (test code = 4689) MV mean gradient 0.88 See_Comment [Automated (test code = message] The 9021566795) system which generated this result transmitted reference range : 5 mmHg. The reference range was not used to interpret this result as normal/abnormal . MR peak grad (test 2.05 mmHg code = 4418964808) MV stenosis pressure 53.68 ms <=150 1/2 time (test code = 4959254965) MV E A ratio (test 1.68 code = 6202167464) MV valve area p 1/2 4.10 cm2 method (test code = 8184205475) MV VTI Tips (test 0.16 m code = 5866930097) MV Vmax (test code = 0.72 m 7935772892) RVOT Vmax (test code 0.60 m/s = 1003647350) PV Mean Grad (test 1.44 mmHg code = 6670565631) PV Pk Grad (test 2.57 See_Comment [Automated code = 4137945898) message] The system which generated this result transmitted reference range : 36 mmHg. The reference range was not used to interpret this result as normal/abnormal . PV VTI (test code = 0.18 m 1404872952) RVOT pk grad (test 1.45 mmHg code = 4471991444) PV VMAX (test code = 0.80 m/s <=3 2610698412) PV Vmn (test code = 0.57 0854074732) Ao Root Diameter 2.57 cm <=3.99 (test code = 6301551328) Ao Root Diameter 2.57 cm (test code = 1736745750) Ascending aorta 2.04 cm (test code = 6259798331) Pred METS R1 (test 9.27 code = 3242817161) Pred Exer Dur R1 9.88 (test code = 4288996675) MV Decel slope (test 5.42 m/s2 code = 0267107088) LVPW pct thck PLAX 21.87 % (test code = 5489709194) LV vol s cube 2D 48.43 ml (test code = 8537306162) LV vol d cube 2D 127.73 ml (test code = 3798548467) LV SV Cube 2D (test 79.30 ml code = 2283496502) IVS pct thck PLAX 69.63 % (test code = 8651475343) Calc MPHR (test code 178.23 bpm = 2202682706) 85 of MPHR (test 151.50 code = 1028663034) RVOT VTI (test code 0.13 m = 1142774497) RVOT Vmn (test code 0.45 m/s = 5074277211) RVOT mean grad (test 0.89 mmHg code = 9337877874) LVOT mean grad (test 1.61 mmHg code = 1559494580) Aov area Vmn (test 2.10 cm2 code = 4022348380) MV AE ratio (test 0.59 code = 8364070340) LVOT Vmn (test code 0.60 = 5637989091) AoV VTI (test code = 0.26 m 7576587842) LVOT VTI (test code 0.16 m = 8500600332) BECKY (test code = BECKY) Left Ventricle: Normal wall motion. Normal systolic function with a visually estimated EF of 55 - 60%. Right Ventricle: Normal systolic function. Pericardium: There is no pericardial effusion present. Left VentricleLeft ventricle size is normal. Normal wall thickness. Normal wall motion. Normal systolic function with a visually estimated EF of 55 - 60%.Right VentricleRight ventricle size is normal. Normal systolic function.Left AtriumLeft atrium size is normal.Right AtriumRight atrium size is normal.Mitral ValveValve structure is normal. No significant valvular regurgitation. No stenosis.Tricuspid ValveValve structure is normal. No significant valvular regurgitation. No stenosis.Aortic ValveValve structure is normal. No significant valvular regurgitation. No stenosis.Pulmonic ValveValve structure is normal. No significant valvular regurgitation. No stenosis.Pericardium There is no pericardial effusion present.AortaNormal sized aortic root.Study DetailsStudy quality was adequate. A complete 2D, color flow Doppler and spectral Doppler echocardiogram was performed. Technical difficulties due to patient's body habitus and lung artifact. Lab Interpretation Abnormal (test code = 24177-4) [facility] [id number] 12:20:00 Test Item Value Reference Range Interpretation Comments Urine culture (test SEE COMMENT Bacteriu chaitanya screen code = 1820127) negative. [facility] [id number] 12:20:00 Test Item Value Reference Range Interpretation Comments Urine culture (test SEE COMMENT Bacteriu chaitanya screen code = 6446387) negative. [facility] [id number] 22:29:00 Test Item Value Reference Range Interpretation Comments SODIUM (test code 135 mmol/L 134-147 N = NA) POTASSIUM (test 3.8 mmol/L 3.4-5.0 N code = K) CHLORIDE (test 105 mmol/L 100-108 N code = CL) CARBON DIOXIDE 26 mmol/L 21-32 N (test code = CO2) ANION GAP (test 4.0 GAP calc 4.0-15.0 N code = GAP) GLUCOSE (test code 183 MG/DL 70-110 H = GLU) BLOOD UREA 21 MG/DL 7-18 H NITROGEN (test code = BUN) GLOMERULAR >=60 max >60 The Glomerular FILTRATION RATE estimate estGFR Filtratio n Rate is a (test code = GFR) calculated parameterbased on serum Creatinin e, patient age and sex. GFR valuesless than 60 mL/min/1.73 square meters are mahnaz cative ofChronic Kidne y Disease. Values less than 15 mL/min/1.73squa re meters indicate Kidney failure. The calculation for GFR is based on the CK D-EPI (2020) calculat ion. This formulais race indifferent and is the recommended formula for GFR by the National Kid[employer] Foundation for Adults.The GFR will not calculate i f the sex is unknown or if thepatient's ag e is <18 years. CREATININE (test 1.0 MG/DL 0.6-1.0 N code = CREAT) TOTAL PROTEIN 7.7 G/DL 6.4-8.2 N (test code = PROT) ALBUMIN (test code 3.0 G/DL 3.4-5.0 L = ALB) GLOBULIN (test 4.7 GM/dL code = GLOB) ALBUMIN/GLOBULIN 0.6 RATIO 1.2-2.2 L RATIO (test code = A/G) CALCIUM (test code 9.0 MG/DL 8.5-10.1 N = CA) BILIRUBIN TOTAL 0.40 MG/DL 0.2-1.2 N (test code = BILT) SGOT/AST (test 20 Unit/L 15-37 N code = AST) SGPT/ALT (test 18 Unit/L 12-78 N code = ALT) ALKALINE 66 Unit/L 45-117 N PHOSPHATASE TOTAL (test code = ALKP) CBC W/AUTO [id number] 21:46:00 Test Item Value Reference Range Interpretation Comments WHITE BLOOD CELL (test code = 11.1 K/mm3 3.5-11.0 H WBC) RED BLOOD CELL (test code = 3.93 M/mm3 4.70-6.10 L RBC) HEMOGLOBIN (test code = HGB) 9.9 G/DL 10.4-14.9 L HEMATOCRIT (test code = HCT) 31.2 % 31.5-44.1 L MEAN CELL VOLUME (test code = 79.4 Fl 84.5-98.6 L MCV) MEAN CELL HGB (test code = MCH) 25.2 pg 27.0-34.2 L MEAN CELL HGB CONCETRATION 31.7 G/DL 31.5-34.0 N (test code = MCHC) RED CELL DISTRIBUTION WIDTH 15.3 SD 11.5-14.5 H (test code = RDW) PLATELET COUNT (test code = 227 K/mm3 150-450 N PLT) MEAN PLATELET VOLUME (test code 11.60 fL 7.0-10.5 H = MPV) NEUTROPHIL % (test code = NT%) 55.2 % 40-76 N IMMATURE GRANULOCYTE % (test 0.4 % 0.0-5.0 N code = IG%) LYMPHOCYTE % (test code = LY%) 37.9 % 20.5-51.1 N MONOCYTE % (test code = MO%) 5.9 % 1.7-9.3 N EOSINOPHIL % (test code = EO%) 0.0 % 0.0-6.0 N BASOPHIL % (test code = BA%) 0.6 % 0.0-2.0 N NUCLEATED RBC % (test code = 0.0 /100WBC% 0.0-1.0 N NRBC%) NEUTROPHIL # (test code = NT#) 6.1 K/mm3 1.8-7.6 N IMMATURE GRANULOCYTE # (test 0.04 x10 3/uL 0.00-0.03 H code = IG#) LYMPHOCYTE # (test code = LY#) 4.2 K/mm3 0.6-3.2 H MONOCYTE # (test code = MO#) 0.7 K/mm3 0.3-1.1 N EOSINOPHIL # (test code = EO#) 0.0 K/mm3 0.0-0.4 N BASOPHIL # (test code = BA#) 0.1 K/mm3 0.0-0.1 N NUCLEATED RBC # (test code = 0.0 K/mm3 0.0-0.1 N NRBC#) MANUAL DIFF REQUIRED (test code NO DIFF/SCN CRITERIA = MDIFF) AFB [id number] 00:13:00 Test Item Value Reference Range Interpretation Comments AFB culture No growth Specimen isolate (test after 6 weeks InformationSp ecimen code = 543-9) of Source: [place] geSpecimen incubation. Site: [facility] [id number] 00:13:00 Test Item Value Reference Range Interpretation Comments AFB culture No growth Specimen isolate (test after 6 weeks InformationSp ecimen code = 543-9) of Source: [place] geSpecimen incubation. Site: Foot: [facility]ef [facility] [id number] 00:13:00 Test Item Value Reference Range Interpretation Comments AFB culture No growth Specimen isolate (test after 6 weeks InformationSp ecimen code = 543-9) of Source: [place] geSpecimen incubation. Site: Foot: [facility]ef [facility] [id number] 00:15:00 Test Item Value Reference Range Interpretation Comments Fungus culture No growth Specimen isolate (test after 4 weeks InformationSp ecimen code = 580-1) of Source: [place] geSpecimen incubation. Site: Foot: [facility]ef [facility] [id number] 00:15:00 Test Item Value Reference Range Interpretation Comments Fungus culture No growth Specimen isolate (test after 4 weeks InformationSp ecimen code = 580-1) of Source: [place] geSpecimen incubation. Site: Foot: [facility]ef t [facility] [id number] 00:15:00 Test Item Value Reference Range Interpretation Comments Fungus culture No growth Specimen isolate (test after 4 weeks InformationSp ecimen code = 580-1) of Source: [place] geSpecimen incubation. Site: Foot: [facility]ef [facility] [id number] 13:44:20 Test Item Value Reference Range Interpretation Comments Case number (test code = [id number]) Surgical pathology See link below for report (test code = PDF Lab Report 2252) Result status (test code This is Final Report = [id number]) for [id number] [facility] [id number] 13:44:20 Test Item Value Reference Range Interpretation Comments Case number (test code = [id number]) Surgical pathology See link below for report (test code = PDF Lab Report 2255) Result status (test code This is Final Report = [id number]) for [id number] [facility] [id number] 13:44:20 Test Item Value Reference Range Interpretation Comments Case number (test code = [id number]) Surgical pathology See link below for report (test code = PDF Lab Report 2255) Result status (test code This is Final Report = [id number]) for [id number] [facility] [id number] 21:23:00 Test Item Value Reference Range Interpretation Comments POC glucose (test code = 125 mg/dL 65-99 H Ope rator Name: Vasquez [id number]) GimiDevice ID: [id number] able: RN Notified Lab Interpretation (test Abnormal code = 41453-7) [facility] [id number] 14:56:00 Test Item Value Reference Range Interpretation Comments Anaerobic No anaerobic Specimen culture isolate organisms InformationS pecimen (test code = isolated. Source: [facility] 03685-6) Site: Foot: Lef t foot culture [facility] [id number] 21:54:00 Test Item Value Reference Range Interpretation Comments AFB stain No acid fast Specimen (test code = bacilli (AFB) InformationSpe cimen 676-7) seen. Source: [facility] Site: Foot: Lef t foot culture [facility] [id number] 21:54:00 Test Item Value Reference Range Interpretation Comments AFB stain No acid fast Specimen (test code = bacilli (AFB) InformationSpe cimen 676-7) seen. Source: [facility] eSpecimen Site: Foot: Lef t foot culture [facility] [id number] 21:54:00 Test Item Value Reference Range Interpretation Comments AFB stain No acid fast Specimen (test code = bacilli (AFB) InformationSpe cimen 676-7) seen. Source: [facility] Site: Foot: Lef t foot culture [facility] [id number] 18:01:00 Test Item Value Reference Range Interpretation Comments Fungus smear No fungi Specimen (test code = observed. InformationSpec imen Source: 1443) DrainageSpecime n Site: Foot: Left foot culture [facility] [id number] 18:01:00 Test Item Value Reference Range Interpretation Comments Fungus smear No fungi Specimen (test code = observed. InformationSpec imen Source: 1443) DrainageSpecime n Site: Foot: Left foot culture [facility] [id number] 18:01:00 Test Item Value Reference Range Interpretation Comments Fungus smear No fungi Specimen (test code = observed. InformationSpec imen Source: 1443) DrainageSpecime n Site: Foot: Left foot culture [facility] [id number] 02:31:00 Test Item Value Reference Range Interpretation Comments Gram stain No WBC's or Specimen isolate (test organisms seen. Information Specimen code = 1469) Source: [place] eSpecimen Site: Foot: Lef t foot culture [facility] [id number] 18:47:00 Test Item Value Reference Range Interpretation Comments Urine culture Mixed adelso Specimen isolate (test <=10-3 col/cc InformationSp ecimen code = 40923-4) Source: Urin eSpecimen Site: Clean cat ch [facility] 12 [id number] 17:51:52 Test Item Value Reference Range Interpretation Comments Ventricular rate (test 87 code = 253) Atrial rate (test code 87 = 255) TN interval (test code 178 = 266) QRSD interval (test 96 code = 260) QT interval (test code 378 = 264) QTC interval (test code 454 = 265) P axis 1 (test code = 67 267) QRS axis 1 (test code = 21 268) T wave axis (test code 62 = 270) EKG impression (test Normal sinus code = 273) rhythm-Normal ECG-In automated comparison with ECG of 31-OCT-2012 10:14,-No significant change was found- [facility] [id number] 17:51:52 Test Item Value Reference Range Interpretation Comments Ventricular rate (test 87 code = 253) Atrial rate (test code 87 = 255) TN interval (test code 178 = 266) QRSD interval (test 96 code = 260) QT interval (test code 378 = 264) QTC interval (test code 454 = 265) P axis 1 (test code = 67 267) QRS axis 1 (test code = 21 268) T wave axis (test code 62 = 270) EKG impression (test Normal sinus code = 273) rhythm-Normal ECG-In automated comparison with ECG of 31-OCT-2012 10:14,-No significant change was found- [facility] 12 [id number] 17:51:52 Test Item Value Reference Range Interpretation Comments Ventricular rate (test 87 code = 253) Atrial rate (test code 87 = 255) TN interval (test code 178 = 266) QRSD interval (test 96 code = 260) QT interval (test code 378 = 264) QTC interval (test code 454 = 265) P axis 1 (test code = 67 267) QRS axis 1 (test code = 21 268) T wave axis (test code 62 = 270) EKG impression (test Normal sinus code = 273) rhythm-Normal ECG-In automated comparison with ECG of 31-OCT-2012 10:14,-No significant change was found- [facility] Preliminary Interpretation - Not an [id number] 21:57:50 Test Item Value Reference Range Interpretation Comments BECKY (test code = BECKY) Ishaan Tillman MD 06/18/2022 7:08 [facility] Preliminary Interpretation - Not an OrderPerformed by: Ishaan Tillman MDAuthorized by: Ishaan Tillman MD ECG reviewed by ED Physician in the absence of a aerial photogrammetrist: yes Interpretation: Interpretation: abnormal Quality: Tracing quality: Limited by artifactRate: ECG rate: 114 ECG rate assessment: tachycardic Rhythm: Rhythm: sinus tachycardia Ectopy: Ectopy: none QRS: QRS axis: Normal QRS intervals: NormalConduction: Conduction: normal ST segments: ST segments: NormalT waves: T waves: inverted Inverted: AVLComments: TN 152. QRS 96. QTc 443. Lab Interpretation Abnormal (test code = 60782-0) [facility] Preliminary Interpretation - Not an [id number] 21:57:50 Test Item Value Reference Range Interpretation Comments BECKY (test code = BECKY) Ishaan Tillman MD 06/18/2022 7:08 [facility] Preliminary Interpretation - Not an OrderPerformed by: Ishaan Tillman MDAuthorized by: Ishaan Tillman MD ECG reviewed by ED Physician in the absence of a aerial photogrammetrist: yes Interpretation: Interpretation: abnormal Quality: Tracing quality: Limited by artifactRate: ECG rate: 114 ECG rate assessment: tachycardic Rhythm: Rhythm: sinus tachycardia Ectopy: Ectopy: none QRS: QRS axis: Normal QRS intervals: NormalConduction: Conduction: normal ST segments: ST segments: NormalT waves: T waves: inverted Inverted: AVLComments: TN 152. QRS 96. QTc 443. Lab Interpretation Abnormal (test code = 13318-0) [facility] Preliminary Interpretation - Not an [id number] 21:57:50 Test Item Value Reference Range Interpretation Comments BECKY (test code = BECKY) Ishaan Tillman MD 06/18/2022 7:08 [facility] Preliminary Interpretation - Not an OrderPerformed by: Ishaan Tillman MDAuthorized by: Ishaan Tillman MD ECG reviewed by ED Physician in the absence of a aerial photogrammetrist: yes Interpretation: Interpretation: abnormal Quality: Tracing quality: Limited by artifactRate: ECG rate: 114 ECG rate assessment: tachycardic Rhythm: Rhythm: sinus tachycardia Ectopy: Ectopy: none QRS: QRS axis: Normal QRS intervals: NormalConduction: Conduction: normal ST segments: ST segments: NormalT waves: T waves: inverted Inverted: AVLComments: TN 152. QRS 96. QTc 443. Lab Interpretation Abnormal (test code = 99113-6) [facility] virus A and B [id number] 16:55:25 Test Item Value Reference Range Interpretation Comments SARS-CoV-2 (COVID-19) RNA Not detected [Presence] in Respiratory specimen by ANIRUDH with probe detection (test code = 81891-8) Whether patient resides in a No congregate care setting (test code = 09688-4) Date and time of symptom onset Unknown (test code = 75600-4) Whether the patient was No hospitalized for condition of interest (test code = 96829-9) Whether the patient was admitted No to intensive care unit (ICU) for condition of interest (test code = 86866-7) Whether patient is employed in a No healthcare setting (test code = 56997-9) Whether the patient has symptoms No related to condition of interest (test code = 55540-8) status (test code = No 31592-4) [facility] [id number] 11:33:00 Test Item Value Reference Range Interpretation Comments GLUCOSE BEDSIDE TESTING (test code 136 mg/dL 70-110 H = GLUBED) GLUCOSE BEDSIDE [id number] 11:32:00 Test Item Value Reference Range Interpretation Comments GLUCOSE BEDSIDE TESTING (test code 162 mg/dL 70-110 H = GLUBED) GLUCOSE BEDSIDE [id number] 11:36:00 Test Item Value Reference Range Interpretation Comments GLUCOSE BEDSIDE TESTING (test code 154 mg/dL 70-110 H = GLUBED) GLUCOSE BEDSIDE [id number] 07:55:00 Test Item Value Reference Range Interpretation Comments GLUCOSE BEDSIDE TESTING (test code 135 mg/dL 70-110 H = GLUBED) [id number] 21:13:00 Test Item Value Reference Range Interpretation Comments VANCOMYCIN (test code = VANCO) 7.0 mcG/ML 5-40 N GLUCOSE BEDSIDE [id number] 20:28:00 Test Item Value Reference Range Interpretation Comments GLUCOSE BEDSIDE TESTING (test code 249 mg/dL 70-110 H = GLUBED) - XR CHEST 1 [id number] 19:31:00 [facility] 1980 Sex: F Name: HARLEEN [facility]ZANO [facility] [place] : 1980 Age/S: 41 / F [address] Unit #: [id number] Loc: [place] [address] Phys: Prakash Larsen MD Acct: [id number] Dis Date: Status: ADM IN PHONE #: [phone] Exam Date: 02/12/20221919 FAX #: Reason: PICC PLACEMENT EXAMS: CPT: [id number] XR CHEST 1 V 98146 Fluoro Time: DAP (Gy m2): Air Kerma (mGy): EXAMINATION: - XR CHEST 1 V HISTORY: PICC line placement COMPARISON: Chest x-ray performed December 01, 2021 LOCATION CODE: C3 FINDINGS: Single frontal view of the chest is submitted for evaluation. Right-sided PICC line has been placed since the prior study. Tip projects over the area of the mid to distal superior vena cava. Cardiac silhouette is the upper limits of normal for size. Lungs are clear. No acute bony abnormalities are identified. IMPRESSION: Right-sided PICC line as above [id number] Reported and signed by: Shantell Macario M.D. CC: Prakash Larsen MD; Marshal Maya MD PAGE 1 Signed Report Name: HARLEEN MANZANO [place] : 1980 Age/S: 41 / F [address] [place] [address] Unit #: [id number] Loc: [place] [address] Phys: Prakash Larsen MD Acct: [id number] Dis Date: Status: ADM IN PHONE #: [phone] Exam Date: 02/12/20221919 FAX #: Reason: PICC PLACEMENT EXAMS: CPT: [id number] XR CHEST 1 V 56327 Fluoro Time: DAP (Gy m2): Air Kerma (mGy): (Continued) Technologist: Yamila Chavez, RT(R)(CT) Trnscb Date/Time: 02/12/2022 (1930) [id number] Orig Print D/T: S: 02/12/2022 (9192) PAGE 2 Signed ReportGLUCOSE BEDSIDE [id number] 16:39:00 Test Item Value Reference Range Interpretation Comments GLUCOSE BEDSIDE TESTING (test code 206 mg/dL 70-110 H = GLUBED) GLUCOSE BEDSIDE [id number] 07:31:00 Test Item Value Reference Range Interpretation Comments GLUCOSE BEDSIDE TESTING (test code 160 mg/dL 70-110 H = GLUBED) CREATINE KINASE (CK)2022-02-12 04:51:00 Test Item Value Reference Range Interpretation Comments CREATINE KINASE (CK) (test code = 139 Unit/L 26-192 N CK) GLUCOSE BEDSIDE [id number] 20:35:00 Test Item Value Reference Range Interpretation Comments GLUCOSE BEDSIDE TESTING (test code 216 mg/dL 70-110 H = GLUBED) GLUCOSE BEDSIDE [id number] 17:03:00 Test Item Value Reference Range Interpretation Comments GLUCOSE BEDSIDE TESTING (test code 198 mg/dL 70-110 H = GLUBED) GLUCOSE BEDSIDE [id number] 07:47:00 Test Item Value Reference Range Interpretation Comments GLUCOSE BEDSIDE TESTING (test code 161 mg/dL 70-110 H = GLUBED) [id number] 06:48:00 Test Item Value Reference Range Interpretation Comments VANCOMYCIN (test code = VANCO) 22.1 mcG/ML 5-40 N VANCOMYCIN [id number] 21:20:00 Test Item Value Reference Range Interpretation Comments VANCOMYCIN TROUGH (test code = 29.9 mcG/ML 10-20 H VANCT) GLUCOSE BEDSIDE [id number] 20:35:00 Test Item Value Reference Range Interpretation Comments GLUCOSE BEDSIDE TESTING (test code 186 mg/dL 70-110 H = GLUBED) GLUCOSE BEDSIDE [id number] 17:06:00 Test Item Value Reference Range Interpretation Comments GLUCOSE BEDSIDE TESTING (test code 260 mg/dL 70-110 H = GLUBED) VANCOMYCIN [id number] 12:38:00 Test Item Value Reference Range Interpretation Comments VANCOMYCIN PEAK (test code = 37.9 mcG/ML 20-40 N VANCP) GLUCOSE BEDSIDE [id number] 11:38:00 Test Item Value Reference Range Interpretation Comments GLUCOSE BEDSIDE TESTING (test code 177 mg/dL 70-110 H = GLUBED) GLUCOSE BEDSIDE [id number] 08:10:00 Test Item Value Reference Range Interpretation Comments GLUCOSE BEDSIDE TESTING (test code 149 mg/dL 70-110 H = GLUBED) GLUCOSE BEDSIDE [id number] 20:41:00 Test Item Value Reference Range Interpretation Comments GLUCOSE BEDSIDE TESTING (test code 267 mg/dL 70-110 H = GLUBED) GLUCOSE BEDSIDE [id number] 16:58:00 Test Item Value Reference Range Interpretation Comments GLUCOSE BEDSIDE TESTING (test code 262 mg/dL 70-110 H = GLUBED) GLUCOSE BEDSIDE [id number] 11:26:00 Test Item Value Reference Range Interpretation Comments GLUCOSE BEDSIDE TESTING (test code 246 mg/dL 70-110 H = GLUBED) - MRI LOW EXT W/O CONT [id number] 09:24:00 [facility] : 1980 Sex: F FAX: Juan A Perkins [phone] Camps: PM St: ADM FAX: Marshal Maya MD [phone] Name: HARLEEN MANZANO [facility] : 1980 Age/S: 41/F [address] [facility] [address] Unit #: [id number] Loc: [address] [place] [address] Phys: Pro Bustamante MD Acct: [id number] Dis Date: Status: ADM IN PHONE #: [phone] Exam Date: 02/09/2022 0856 FAX #: Reason: R/o abscess, osteomyelitis, gas producing infec EXAMS: CPT: [id number] [place] [address] EXAM: - MRI LOW EXT W/O CONT LT LOCATION: C3 HISTORY: R/o abscess, osteomyelitis, gas producing infection COMPARISON: None available at the time of interpretation. 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 Loss of T1 signal in the 4th metatarsal head and 4th proximal phalangeal base. Soft tissues: 4.5 x 0.8 x 1.5 cm fluidcollection at the dorsal lateral aspect of the forefoot adjacent to the 4th and 5th digits with 2 sinus tracts at the lateral and dorsal aspect of the skin. IMPRESSION: Osteomyelitis involving the distal 5th metatarsal and around the 4th MTP joint as above. 4.5 cm fluid collection at the dorsal lateral aspect of the forefoot with 2 sinus tracts. Electronically Signed by CORTNEY PARKINSON M.D. on02/09/2022 at 0924 Reported and signed by: CORTNEY PARKINSON M.D. CC: Pro Pritchard MD; Marshal Maya MD Technologist: Hussein Tamayo, RT(R)(CT)(MR) Transcribed Date/Time/By: 02/09/2022 (923) :[email or web address] Orig Print D/T: S: 02/09/2022 (4150) PAGE 1 Signed ReportGLUCOSE BEDSIDE [id number] 07:39:00 Test Item Value Reference Range Interpretation Comments GLUCOSE BEDSIDE TESTING (test code 243 mg/dL 70-110 H = GLUBED) GLUCOSE BEDSIDE [id number] 06:12:00 Test Item Value Reference Range Interpretation Comments GLUCOSE BEDSIDE TESTING (test code 307 mg/dL 70-110 H = GLUBED) BASIC METABOLIC [id number] 04:41:00 Test Item Value Reference Range Interpretation Comments SODIUM (test code = NA) 134 mmol/L 134-147 N POTASSIUM (test code = 4.1 mmol/L 3.4-5.0 N K) CHLORIDE (test code = 105 mmol/L 100-108 N CL) CARBON DIOXIDE (test 22 mmol/L 21-32 N code = CO2) ANION GAP (test code = 7.0 GAP calc 4.0-15.0 N GAP) GLUCOSE (test code = 230 MG/DL 70-110 H GLU) BLOOD UREA NITROGEN 19 MG/DL 7-18 H (test code = BUN) GLOMERULAR FILTRATION >=60 max estimate >60 RATE (test code = GFR) estGFR CREATININE (test code = 1.0 MG/DL 0.6-1.0 N CREAT) CALCIUM (test code = CA) 8.6 MG/DL 8.5-10.1 N CBC W/AUTO [id number] 04:31:00 Test Item Value Reference Range Interpretation Comments WHITE BLOOD CELL (test code = 8.7 K/mm3 3.5-11.0 N WBC) RED BLOOD CELL (test code = 3.76 M/mm3 4.70-6.10 L RBC) HEMOGLOBIN (test code = HGB) 9.3 G/DL 10.4-14.9 L HEMATOCRIT (test code = HCT) 29.6 % 31.5-44.1 L MEAN CELL VOLUME (test code = 78.7 Fl 84.5-98.6 L MCV) MEAN CELL HGB (test code = MCH) 24.7 pg 27.0-34.2 L MEAN CELL HGB CONCETRATION 31.4 G/DL 31.5-34.0 L (test code = MCHC) RED CELL DISTRIBUTION WIDTH 16.1 SD 11.5-14.5 H (test code = RDW) PLATELET COUNT (test code = 284 K/mm3 150-450 N PLT) MEAN PLATELET VOLUME (test code 11.20 fL 7.0-10.5 H = MPV) NEUTROPHIL % (test code = NT%) 65.2 % 40-76 IMMATURE GRANULOCYTE % (test 0.3 % 0.0-5.0 N code = IG%) LYMPHOCYTE % (test code = LY%) 26.6 % 20.5-51.1 N MONOCYTE % (test code = MO%) 7.2 % 1.7-9.3 N EOSINOPHIL % (test code = EO%) 0.1 % 0.0-6.0 N BASOPHIL % (test code = BA%) 0.6 % 0.0-2.0 N NUCLEATED RBC % (test code = 0.0 /100WBC% 0.0-1.0 N NRBC%) NEUTROPHIL # (test code = NT#) 5.7 K/mm3 1.8-7.6 N IMMATURE GRANULOCYTE # (test 0.03 x10 3/uL 0.00-0.03 N code = IG#) LYMPHOCYTE # (test code = LY#) 2.3 K/mm3 0.6-3.2 N MONOCYTE # (test code = MO#) 0.6 K/mm3 0.3-1.1 N EOSINOPHIL # (test code = EO#) 0.0 K/mm3 0.0-0.4 N BASOPHIL # (test code = BA#) 0.1 K/mm3 0.0-0.1 N NUCLEATED RBC # (test code = 0.0 K/mm3 0.0-0.1 N NRBC#) MANUAL DIFF REQUIRED (test code NO DIFF/SCN CRITERIA = MDIFF) GLUCOSE BEDSIDE [id number] 22:52:00 Test Item Value Reference Range Interpretation Comments GLUCOSE BEDSIDE TESTING (test code 264 mg/dL 70-110 H = GLUBED) GLUCOSE BEDSIDE [id number] 21:22:00 Test Item Value Reference Range Interpretation Comments GLUCOSE BEDSIDE TESTING (test code 291 mg/dL 70-110 H = GLUBED) GLUCOSE BEDSIDE [id number] 12:12:00 Test Item Value Reference Range Interpretation Comments GLUCOSE BEDSIDE TESTING (test code 163 mg/dL 70-110 H = GLUBED) GLUCOSE BEDSIDE [id number] 07:27:00 Test Item Value Reference Range Interpretation Comments GLUCOSE BEDSIDE TESTING (test code 157 mg/dL 70-110 H = GLUBED) GLUCOSE BEDSIDE [id number] 01:57:00 Test Item Value Reference Range Interpretation Comments GLUCOSE BEDSIDE TESTING (test code 156 mg/dL 70-110 H = GLUBED) - XR FOOT 3+V [id number] 22:39:00 [facility] 1980 Sex: F Name: HARLEEN MANZANO [facility] : 1980 Age/S: 41 / F [address] Unit #: [id number] Loc: [place] [address] Phys: Abdi Prabhakar NP Acct: [id number] Dis Date: Status: REG ER PHONE #: [phone] Exam Date: 02/07/20222199 FAX #: Reason: LEFT FOOT PAIN EXAMS: CPT: [id number] XR FOOT 3+[place] [address] Fluoro Time: DAP (Gy m2): Air Kerma (mGy): LOCATION: [facility] HISTORY: Female, 41 years of age with left foot pain, wound. Surgery last month. EXAM: LEFT FOOT, 3 VIEWS COMPARISON: Previous left footx-rays 11/25/2021 FINDINGS: The patient has had amputation of 5th toe at the level of distal metatarsal diaphysis. Soft tissue swelling and soft tissue wound noted at the amputation stump. 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 Osteolytic change in the head of 4th metatarsal and base of 4th proximal phalanx has progressed, now with pathologic nond isplaced fractures. Periosteal reaction is seen along the stump of 5th metatarsal. No other osteolytic lesions. IMPRESSION: 1. Open wound at 5th ray stump. 2. 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 3. 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 at 7272 Reported and signed by: Adri Urrutia MD CC: Abdi Prabhakar BIG DATA SOFTWARE ENGINEER PAGE 1 Signed Report Name: HARLEEN MANZANO [facility] : 1980 Age/S: 41 / F [address] [facility] [address] Unit #: [id number] Loc: [place] [address] Phys: Abdi Prabhakar [employer] DATA SOFTWARE ENGINEER Acct: [id number] Dis Date: Status: REG ER PHONE #: [phone] Exam Date: 02/07/20222199 FAX #: Reason: LEFT FOOT PAIN EXAMS: CPT: [id number] XR FOOT 3+[place] [address] Fluoro Time: DAP (Gy m2): Air Kerma (mGy): (Continued) Technologist: Roslyn Llanos, RT(R)(CT) Trnscb Date/Time: 02/07/2022 (2238) [email or web address] Orig Print D/T: S: 02/07/2022 (2241) PAGE 2 Signed ReportUA RFLX MICR CULT IF [id number] 22:21:00 Test Item Value Reference Range Interpretation Comments UA COLOR (test code = YELLOW discript YEL/STRAW COLU) UA APPEARANCE (test code CLOUDY discript CLEAR A = APPU) UA GLUCOSE DIPSTICK (test NEGATIVE mg/dL NEG code = DGLUU) UA BILIRUBIN DIPSTICK NEGATIVE mg/dL NEG (test code = BILU) UA KETONE DIPSTICK (test NEGATIVE mg/dL NEG code = KETU) UA SPECIFIC GRAVITY (test 1.010 SG 1.005-1.030 code = SGU) UA BLOOD DIPSTICK (test TRACE mg/DL NEG A code = JOYCELYN) UA PH DIPSTICK (test code 6.0 pH UNITS 5.0-7.0 = CATERINA) UA PROTEIN DIPSTICK (test 1+ mg/dL NEG A code = PROU) UA UROBILINIOGEN DIPSTICK 0.2 mg/dL <2.0 (test code = URO) UA NITRITE DIPSTICK (test POSITIVE SCREEN NEG A code = BRITNEY) UA LEUKOCYTE ESTERASE 2+ Leuk/mcL NEGATIVE A DIPSTICK (test code = LEUU) UA CULTURE NEEDED? (test YES,WBC>10 & EPI<25 Culture CHK code = UACULT) Criteria UA WBC (test code = WBCU) >50 #WBC/HPF 0-3 A UA RBC (test code = RBCU) 0-1 #RBC/HPF 0-3 UA BACTERIA (test code = 4+ /HPF NONE-TRACE A BACU) UA SQUAMOUS CELLS (test 1+ /HPF NONE A code = SQU) Indication for culture: Dysuria/FrequencySOURCE OF URINE: CLEAN CATCHCOVID 19 INHOUSE [id number] 22:14:00 Test Item Value Reference Range Interpretation Comments COVID 19 INHOUSE AG NEGATIVE Negative Per manu facturer, (test code = negative result s should [id number]) be treated aspr esumptive and, if inconsi stent with clinical signs andsymptoms or necessary for patient man agement, should betested with an alternative mol ecular assay. Negative resultsdo not preclude SA RS-CoV-2 infection and s hould not be usedas the s ole basis for patient man agement decisions. Nega tive results should be considered in t he context of apatient's r ecent exposures, hist ory, presence of cli nicalsigns and symptoms co nsistent with COVID-19. CBC W/AUTO [id number] 21:58:00 Test Item Value Reference Range Interpretation Comments WHITE BLOOD CELL (test code = 11.7 K/mm3 3.5-11.0 H WBC) RED BLOOD CELL (test code = 4.26 M/mm3 4.70-6.10 L RBC) HEMOGLOBIN (test code = HGB) 10.4 G/DL 10.4-14.9 N HEMATOCRIT (test code = HCT) 33.0 % 31.5-44.1 N MEAN CELL VOLUME (test code = 77.5 Fl 84.5-98.6 L MCV) MEAN CELL HGB (test code = MCH) 24.4 pg 27.0-34.2 L MEAN CELL HGB CONCETRATION 31.5 G/DL 31.5-34.0 N (test code = MCHC) RED CELL DISTRIBUTION WIDTH 16.5 SD 11.5-14.5 H (test code = RDW) PLATELET COUNT (test code = 293 K/mm3 150-450 N PLT) MEAN PLATELET VOLUME (test code 11.00 fL 7.0-10.5 H = MPV) NEUTROPHIL % (test code = NT%) 56.5 % 40-76 N IMMATURE GRANULOCYTE % (test 0.4 % 0.0-5.0 N code = IG%) LYMPHOCYTE % (test code = LY%) 36.8 % 20.5-51.1 N MONOCYTE % (test code = MO%) 5.7 % 1.7-9.3 N EOSINOPHIL % (test code = EO%) 0.0 % 0.0-6.0 N BASOPHIL % (test code = BA%) 0.6 % 0.0-2.0 N NUCLEATED RBC % (test code = 0.0 /100WBC% 0.0-1.0 N NRBC%) NEUTROPHIL # (test code = NT#) 6.6 K/mm3 1.8-7.6 N IMMATURE GRANULOCYTE # (test 0.05 x10 3/uL 0.00-0.03 H code = IG#) LYMPHOCYTE # (test code = LY#) 4.3 K/mm3 0.6-3.2 H MONOCYTE # (test code = MO#) 0.7 K/mm3 0.3-1.1 N EOSINOPHIL # (test code = EO#) 0.0 K/mm3 0.0-0.4 N BASOPHIL # (test code = BA#) 0.1 K/mm3 0.0-0.1 N NUCLEATED RBC # (test code = 0.0 K/mm3 0.0-0.1 N NRBC#) MANUAL DIFF REQUIRED (test code NO DIFF/SCN CRITERIA = MDIFF) HCG [id number] 21:56:00 Test Item Value Reference Range Interpretation Comments HCG SERUM (test < 1 mi-IU/ML 0-6 N 0 - 6 NOT > 6 code = HCG) SUGGESTIVE OF E YEHUDA RISES TWO FOLD EVERY 2 DAYS; S UGGEST RECONFIRMING AF TER 2 DAYS. 150,000-2 00[address] TRIMESTER 10 ,000 - 50,000 2ND & 3R D TRIMESTER BASIC METABOLIC [id number] 21:56:00 Test Item Value Reference Range Interpretation Comments SODIUM (test code = NA) 135 mmol/L 134-147 N POTASSIUM (test code = 4.6 mmol/L 3.4-5.0 N K) CHLORIDE (test code = 102 mmol/L 100-108 N CL) CARBON DIOXIDE (test 24 mmol/L 21-32 N code = CO2) ANION GAP (test code = 9.0 GAP calc 4.0-15.0 N GAP) GLUCOSE (test code = 137 MG/DL 70-110 H GLU) BLOOD UREA NITROGEN 25 MG/DL 7-18 H (test code = BUN) GLOMERULAR FILTRATION >=60 max estimate >60 RATE (test code = GFR) estGFR CREATININE (test code = 1.2 MG/DL 0.6-1.0 H CREAT) CALCIUM (test code = CA) 9.0 MG/DL 8.5-10.1 N HEPATIC FUNCTION [id number] 21:56:00 Test Item Value Reference Range Interpretation Comments TOTAL PROTEIN (test code = PROT) 8.3 G/DL 6.4-8.2 H ALBUMIN (test code = ALB) 3.3 G/DL 3.4-5.0 L BILIRUBIN TOTAL (test code = BILT) 0.20 MG/DL 0.2-1.2 N BILIRUBIN DIRECT (test code = 0.10 MG/DL 0.00-0.30 N BILD) BILIRUBIN INDIRECT (test code = 0.10 MG/DL 0.2-1.2 L BILIND) SGOT/AST (test code = AST) 22 Unit/L 15-37 N SGPT/ALT (test code = ALT) 23 Unit/L 12-78 N ALKALINE PHOSPHATASE TOTAL (test 78 Unit/L 45-117 N code = ALKP) LACTIC [id number] 21:43:00 Test Item Value Reference Range Interpretation Comments LACTIC ACID (test code = LACT) 1.7 mmol/L 0.4-2.0 N [id number] 16:45:00 Test Item Value Reference Range Interpretation Comments SURGICAL (test code = SR) --------RUN DATE: 12/08/21 [facility] EMILY PAGE 1 RUN TIME: 1645 Specimen Inquiry RUN USER: INTERFACE --------PATIENT: HARLEEN MANZANO LOC: JOSE Meléndez #: [id number] AGE/SX: 41/F ROOM: [facility] RE11/25/21REG DR: Yusuf Castle MD : 80 BED: 1 DIS: 12/07/21 STATUS: DIS IN TLOC: -------- SPEC #: [id number]:[id number] RECD: 11/27/21 STATUS: HUMAIRA REQ #: [id number] LAURA: 11/27/21 [facility] DR: Yusuf Castle MD ENTERED: 11/27/21 SP TYPE: SURGICAL OTHR DR: No Primary or Family Physician Self Referred Jose Garland MD, Stephen Q MD Mendoza Requena, Daniel MDORDERED: 85560, 22305, 68464, ANATOMIC SPEC, SPECIMEN TRACK COPIES TO: No Primary or Family Physician [place] [address] [facility] [address] [place] [address] Jose Garland MD [address] [facility] [address] [place] [address] Jonathan Hernandez MD [address] [place] [address] [place] [address] [place] [address] PROCEDURES: 33581 (12/08/21-1639) 78868 (12/08/21-1639) 47953 (12/08/21-1640) SPECIMEN TRACK (11/27/21-1027) TISSUES: A. TOE, NOS - 5TH LEFT TOE CONTINUED ON NEXT PAGE --------RUN DATE: 12/08/21 [facility] PAGE 2 RUN TIME: 1644 Specimen Inquiry RUN USER: INTERFACE --------SPEC #: [id number]:[id number]:[id number] PATIENT: HARLEEN MANZANO #[id number] (Continued) FINAL DIAGNOSIS LEFT 5TH TOE, AMPUTATION: - Ischemic changes involving skin and subcutaneous tissue.- Focal acute inflammation.- Negative special stain for fungal elements.- No osteomyelitis.- Bone and soft tissue margin free of inflammation. GROSS DESCRIPTION Left 5th toe. It consists of distal tip of toe measuring 1.7 x 2.2 x 1.7 cm. The margin ofresection is inked black. Cut sections reveal a lesion on the anterior surface measuring0.6 x 0.5 cm with a thin rim of possible viable skin. The margin of resection is inkedblack. Cut sections reveal firm underlying bone. Sections are submitted fordecalcification as A1. The remainder of the toe is sectioned and submitted entirely asA2-A3. [facility] component [facility], [place] [address] MICROSCOPIC DESCRIPTION Specimen is entirely submitted for microscopic evaluation. Sections reveal skin andunderlying bone. There is focal ischemic changes. Under the ischemic changes, the smallblood vessels are thrombosed with complete occlusion of lumen. There is markedhyperkeratosis and parakeratosis. There is acute inflammation involving epithelial layer. Special stain of PAS for fungal elements is negative. No osteomyelitis is seen. Softtissue and bone margins are free of inflammation. -------- Signed SIGNATURE ON FILE Flora Chahal 12/08/21 1645 -------- END OF REPORT GLUCOSE BEDSIDE [id number] 16:19:00 Test Item Value Reference Range Interpretation Comments GLUCOSE BEDSIDE TESTING (test code 271 mg/dL 70-110 H = GLUBED) GLUCOSE BEDSIDE [id number] 11:59:00 Test Item Value Reference Range Interpretation Comments GLUCOSE BEDSIDE TESTING (test code 164 mg/dL 70-110 H = GLUBED) GLUCOSE BEDSIDE [id number] 08:18:00 Test Item Value Reference Range Interpretation Comments GLUCOSE BEDSIDE TESTING (test code 113 mg/dL 70-110 H = GLUBED) BASIC METABOLIC [id number] 04:37:00 Test Item Value Reference Range Interpretation Comments SODIUM (test code = NA) 139 mmol/L 134-147 N POTASSIUM (test code = K) 3.6 mmol/L 3.4-5.0 N CHLORIDE (test code = CL) 106 mmol/L 100-108 N CARBON DIOXIDE (test code = CO2) 27 mmol/L 21-32 N ANION GAP (test code = GAP) 6.0 GAP calc 4.0-15.0 N GLUCOSE (test code = GLU) 135 MG/DL 70-110 H BLOOD UREA NITROGEN (test code = 8 MG/DL 7-18 N BUN) GLOMERULAR FILTRATION RATE (test 53 estGFR >60 L code = GFR) CREATININE (test code = CREAT) 1.4 MG/DL 0.6-1.0 H CALCIUM (test code = CA) 8.6 MG/DL 8.5-10.1 N [id number] 04:37:00 Test Item Value Reference Range Interpretation Comments PHOSPHOROUS (test code = PHOS) 3.6 MG/DL 2.5-4.9 N [id number] 04:37:00 Test Item Value Reference Range Interpretation Comments MAGNESIUM (test code = MAG) 1.6 MG/DL 1.8-2.4 L CBC W/AUTO [id number] 04:23:00 Test Item Value Reference Range Interpretation Comments WHITE BLOOD CELL (test code = 9.3 K/mm3 3.5-11.0 N WBC) RED BLOOD CELL (test code = 3.67 M/mm3 4.70-6.10 L RBC) HEMOGLOBIN (test code = HGB) 9.0 G/DL 10.4-14.9 L HEMATOCRIT (test code = HCT) 29.7 % 31.5-44.1 L MEAN CELL VOLUME (test code = 80.9 Fl 84.5-98.6 L MCV) MEAN CELL HGB (test code = MCH) 24.5 pg 27.0-34.2 L MEAN CELL HGB CONCETRATION 30.3 G/DL 31.5-34.0 L (test code = MCHC) RED CELL DISTRIBUTION WIDTH 13.9 SD 11.5-14.5 N (test code = RDW) PLATELET COUNT (test code = 286 K/mm3 150-450 N PLT) MEAN PLATELET VOLUME (test code 10.90 fL 7.0-10.5 H = MPV) NEUTROPHIL % (test code = NT%) 56.6 % 40-76 N IMMATURE GRANULOCYTE % (test 0.5 % 0.0-5.0 N code = IG%) LYMPHOCYTE % (test code = LY%) 35.5 % 20.5-51.1 N MONOCYTE % (test code = MO%) 6.7 % 1.7-9.3 N EOSINOPHIL % (test code = EO%) 0.0 % 0.0-6.0 N BASOPHIL % (test code = BA%) 0.7 % 0.0-2.0 N NUCLEATED RBC % (test code = 0.0 /100WBC% 0.0-1.0 N NRBC%) NEUTROPHIL # (test code = NT#) 5.3 K/mm3 1.8-7.6 N IMMATURE GRANULOCYTE # (test 0.05 x10 3/uL 0.00-0.03 H code = IG#) LYMPHOCYTE # (test code = LY#) 3.3 K/mm3 0.6-3.2 H MONOCYTE # (test code = MO#) 0.6 K/mm3 0.3-1.1 N EOSINOPHIL # (test code = EO#) 0.0 K/mm3 0.0-0.4 N BASOPHIL # (test code = BA#) 0.1 K/mm3 0.0-0.1 N NUCLEATED RBC # (test code = 0.0 K/mm3 0.0-0.1 N NRBC#) MANUAL DIFF REQUIRED (test code NO DIFF/SCN CRITERIA = MDIFF) GLUCOSE BEDSIDE [id number] 20:13:00 Test Item Value Reference Range Interpretation Comments GLUCOSE BEDSIDE TESTING (test code 236 mg/dL 70-110 H = GLUBED) GLUCOSE BEDSIDE [id number] 17:06:00 Test Item Value Reference Range Interpretation Comments GLUCOSE BEDSIDE TESTING (test code 188 mg/dL 70-110 H = GLUBED) GLUCOSE BEDSIDE [id number] 11:39:00 Test Item Value Reference Range Interpretation Comments GLUCOSE BEDSIDE TESTING (test code 135 mg/dL 70-110 H = GLUBED) GLUCOSE BEDSIDE [id number] 08:11:00 Test Item Value Reference Range Interpretation Comments GLUCOSE BEDSIDE TESTING (test code = 89 mg/dL 70-110 N GLUBED) CBC W/AUTO [id number] 05:27:00 Test Item Value Reference Range Interpretation Comments WHITE BLOOD CELL (test code = 10.1 K/mm3 3.5-11.0 N WBC) RED BLOOD CELL (test code = 3.41 M/mm3 4.70-6.10 L RBC) HEMOGLOBIN (test code = HGB) 8.4 G/DL 10.4-14.9 L HEMATOCRIT (test code = HCT) 27.6 % 31.5-44.1 L MEAN CELL VOLUME (test code = 80.9 Fl 84.5-98.6 L MCV) MEAN CELL HGB (test code = MCH) 24.6 pg 27.0-34.2 L MEAN CELL HGB CONCETRATION 30.4 G/DL 31.5-34.0 L (test code = MCHC) RED CELL DISTRIBUTION WIDTH 14.0 SD 11.5-14.5 N (test code = RDW) PLATELET COUNT (test code = 281 K/mm3 150-450 N PLT) MEAN PLATELET VOLUME (test code 11.20 fL 7.0-10.5 H = MPV) NEUTROPHIL % (test code = NT%) 59.1 % 40-76 N IMMATURE GRANULOCYTE % (test 0.4 % 0.0-5.0 N code = IG%) LYMPHOCYTE % (test code = LY%) 31.7 % 20.5-51.1 N MONOCYTE % (test code = MO%) 8.0 % 1.7-9.3 N EOSINOPHIL % (test code = EO%) 0.0 % 0.0-6.0 N BASOPHIL % (test code = BA%) 0.8 % 0.0-2.0 N NUCLEATED RBC % (test code = 0.0 /100WBC% 0.0-1.0 N NRBC%) NEUTROPHIL # (test code = NT#) 6.0 K/mm3 1.8-7.6 N IMMATURE GRANULOCYTE # (test 0.04 x10 3/uL 0.00-0.03 H code = IG#) LYMPHOCYTE # (test code = LY#) 3.2 K/mm3 0.6-3.2 N MONOCYTE # (test code = MO#) 0.8 K/mm3 0.3-1.1 N EOSINOPHIL # (test code = EO#) 0.0 K/mm3 0.0-0.4 N BASOPHIL # (test code = BA#) 0.1 K/mm3 0.0-0.1 N NUCLEATED RBC # (test code = 0.0 K/mm3 0.0-0.1 N NRBC#) MANUAL DIFF REQUIRED (test code NO DIFF/SCN CRITERIA = MDIFF) GLUCOSE BEDSIDE [id number] 19:29:00 Test Item Value Reference Range Interpretation Comments GLUCOSE BEDSIDE TESTING (test code 185 mg/dL 70-110 H = GLUBED) GLUCOSE BEDSIDE [id number] 15:49:00 Test Item Value Reference Range Interpretation Comments GLUCOSE BEDSIDE TESTING (test code 197 mg/dL 70-110 H = GLUBED) GLUCOSE BEDSIDE [id number] 11:52:00 Test Item Value Reference Range Interpretation Comments GLUCOSE BEDSIDE TESTING (test code 177 mg/dL 70-110 H = GLUBED) GLUCOSE BEDSIDE [id number] 08:04:00 Test Item Value Reference Range Interpretation Comments GLUCOSE BEDSIDE TESTING (test code 121 mg/dL 70-110 H = GLUBED) GLUCOSE BEDSIDE [id number] 16:44:00 Test Item Value Reference Range Interpretation Comments GLUCOSE BEDSIDE TESTING (test code 148 mg/dL 70-110 H = GLUBED) GLUCOSE BEDSIDE [id number] 11:42:00 Test Item Value Reference Range Interpretation Comments GLUCOSE BEDSIDE TESTING (test code 121 mg/dL 70-110 H = GLUBED) GLUCOSE BEDSIDE [id number] 07:54:00 Test Item Value Reference Range Interpretation Comments GLUCOSE BEDSIDE TESTING (test code = 79 mg/dL 70-110 N GLUBED) GLUCOSE BEDSIDE [id number] 20:33:00 Test Item Value Reference Range Interpretation Comments GLUCOSE BEDSIDE TESTING (test code 212 mg/dL 70-110 H = GLUBED) GLUCOSE BEDSIDE [id number] 16:07:00 Test Item Value Reference Range Interpretation Comments GLUCOSE BEDSIDE TESTING (test code 142 mg/dL 70-110 H = GLUBED) GLUCOSE BEDSIDE [id number] 11:50:00 Test Item Value Reference Range Interpretation Comments GLUCOSE BEDSIDE TESTING (test code = 85 mg/dL 70-110 N GLUBED) GLUCOSE BEDSIDE [id number] 07:21:00 Test Item Value Reference Range Interpretation Comments GLUCOSE BEDSIDE TESTING (test code 124 mg/dL 70-110 H = GLUBED) RENAL FUNCTION [id number] 05:07:00 Test Item Value Reference Range Interpretation Comments SODIUM (test code = NA) 141 mmol/L 134-147 N POTASSIUM (test code = K) 3.5 mmol/L 3.4-5.0 N CHLORIDE (test code = CL) 108 mmol/L 100-108 N CARBON DIOXIDE (test code = CO2) 26 mmol/L 21-32 N GLUCOSE (test code = GLU) 128 MG/DL 70-110 H BLOOD UREA NITROGEN (test code = 11 MG/DL 7-18 N BUN) GLOMERULAR FILTRATION RATE (test 40 estGFR >60 L code = GFR) CREATININE (test code = CREAT) 1.8 MG/DL 0.6-1.0 H ALBUMIN (test code = ALB) 2.0 G/DL 3.4-5.0 L CALCIUM (test code = CA) 8.5 MG/DL 8.5-10.1 N PHOSPHOROUS (test code = PHOS) 4.0 MG/DL 2.5-4.9 N CREATINE KINASE (CK)2021-12-03 05:07:00 Test Item Value Reference Range Interpretation Comments CREATINE KINASE (CK) (test code = 64 Unit/L 26-192 N CK) GLUCOSE BEDSIDE [id number] 20:52:00 Test Item Value Reference Range Interpretation Comments GLUCOSE BEDSIDE TESTING (test code 151 mg/dL 70-110 H = GLUBED) GLUCOSE BEDSIDE [id number] 15:43:00 Test Item Value Reference Range Interpretation Comments GLUCOSE BEDSIDE TESTING (test code 183 mg/dL 70-110 H = GLUBED) GLUCOSE BEDSIDE [id number] 11:32:00 Test Item Value Reference Range Interpretation Comments GLUCOSE BEDSIDE TESTING (test code 116 mg/dL 70-110 H = GLUBED) GLUCOSE BEDSIDE [id number] 07:40:00 Test Item Value Reference Range Interpretation Comments GLUCOSE BEDSIDE TESTING (test code = 98 mg/dL 70-110 N GLUBED) BASIC METABOLIC [id number] 05:08:00 Test Item Value Reference Range Interpretation Comments SODIUM (test code = NA) 140 mmol/L 134-147 N POTASSIUM (test code = K) 3.5 mmol/L 3.4-5.0 N CHLORIDE (test code = CL) 110 mmol/L 100-108 H CARBON DIOXIDE (test code = CO2) 25 mmol/L 21-32 N ANION GAP (test code = GAP) 5.0 GAP calc 4.0-15.0 N GLUCOSE (test code = GLU) 115 MG/DL 70-110 H BLOOD UREA NITROGEN (test code = 11 MG/DL 7-18 N BUN) GLOMERULAR FILTRATION RATE (test 33 estGFR >60 L code = GFR) CREATININE (test code = CREAT) 2.1 MG/DL 0.6-1.0 H CALCIUM (test code = CA) 8.4 MG/DL 8.5-10.1 L RENAL FUNCTION [id number] 05:08:00 Test Item Value Reference Range Interpretation Comments ALBUMIN (test code = ALB) 2.1 G/DL 3.4-5.0 L PHOSPHOROUS (test code = PHOS) 4.0 MG/DL 2.5-4.9 N THYROID STIMULATING [id number] 05:08:00 Test Item Value Reference Range Interpretation Comments THYROID STIMULATING HORMONE 1.370 mcIU/ML 0.340-4.820 N (test code = TSH) GLUCOSE BEDSIDE [id number] 20:22:00 Test Item Value Reference Range Interpretation Comments GLUCOSE BEDSIDE TESTING (test code 200 mg/dL 70-110 H = GLUBED) GLUCOSE BEDSIDE [id number] 16:44:00 Test Item Value Reference Range Interpretation Comments GLUCOSE BEDSIDE TESTING (test code 135 mg/dL 70-110 H = GLUBED) - XR CHEST 2 [id number] 15:56:00 [facility] 1980 Sex: F Name: HARLEEN MANZANO [facility] : 1980 Age/S: 41 / F [address] Unit #: [id number] Loc: [place] [address] Phys: Yusuf Castle MD Acct: [id number] Dis Date: Status: ADM IN PHONE #: [phone] Exam Date: 12/01/2021 1510 FAX #: Reason: abnormal xr chest 1view EXAMS: CPT: [id number] XR CHEST 2 V 62337 Fluoro Time: DAP (Gy m2): Air Kerma (mGy): C3 TIME OF STUDY: 12/01/2021 12:29 PM REASON FOR EXAM: abnormal xr chest 1view COMPARISON: Chest radiograph one day prior FINDINGS: PA and lateral upright views of the chest were obtained. Support devices: Stable Lungs: Patchy bilateral airspace opacities are unchanged. Pleura: No pleural effusion or pneumothorax. Heart and Mediastinum: Normalcardiomediastinal silhouette and great vessels. Bones: Normal regional skeletal structures. IMPRESSION: 1. Stable patchy bilateral airspace opacities. 2. Previously questioned nodular density over the right upper chest is likely due to superimposed 1st rib artifact as it is not visualized on this exam. at 1556 Reported and signed by: Basilio Holcomb M.D. CC: Yusuf Castle MD PAGE 1 Signed Report Name: HARLEEN MANZANO [facility] : 1980 Age/S: 41 / F [address] [address] Unit #: [id number] Loc: [place] [address] Phys: Yusuf Castle MD Acct: [id number] Dis Date: Status: ADM IN PHONE #: [phone] Exam Date: 12/01/2021 1510 FAX #: Reason: abnormal xr chest 1view EXAMS: CPT: [id number] XR CHEST 2 V 65567 Fluoro Time: DAP (Gy m2): Air Kerma (mGy): (Continued) Technologist: James Osullivan RT(R) Trnncb Date/Time: 12/01/2021 (1086) [email or web address] Orig Print D/T: S: 12/01/2021 (1600) PAGE 2 Signed ReportGLUCOSE BEDSIDE [id number] 11:39:00 Test Item Value Reference Range Interpretation Comments GLUCOSE BEDSIDE TESTING (test code 247 mg/dL 70-110 H = GLUBED) GLUCOSE BEDSIDE [id number] 07:34:00 Test Item Value Reference Range Interpretation Comments GLUCOSE BEDSIDE TESTING (test code 126 mg/dL 70-110 H = GLUBED) BASIC METABOLIC [id number] 05:47:00 Test Item Value Reference Range Interpretation Comments SODIUM (test code = NA) 141 mmol/L 134-147 N POTASSIUM (test code = K) 3.7 mmol/L 3.4-5.0 N CHLORIDE (test code = CL) 109 mmol/L 100-108 H CARBON DIOXIDE (test code = CO2) 25 mmol/L 21-32 N ANION GAP (test code = GAP) 7.0 GAP calc 4.0-15.0 N GLUCOSE (test code = GLU) 149 MG/DL 70-110 H BLOOD UREA NITROGEN (test code = 14 MG/DL 7-18 N BUN) GLOMERULAR FILTRATION RATE (test 29 estGFR >60 L code = GFR) CREATININE (test code = CREAT) 2.4 MG/DL 0.6-1.0 H CALCIUM (test code = CA) 8.0 MG/DL 8.5-10.1 L RENAL FUNCTION [id number] 05:47:00 Test Item Value Reference Range Interpretation Comments ALBUMIN (test code = ALB) 1.9 G/DL 3.4-5.0 L PHOSPHOROUS (test code = PHOS) 4.0 MG/DL 2.5-4.9 N [id number] 05:47:00 Test Item Value Reference Range Interpretation Comments MAGNESIUM (test code = MAG) 1.5 MG/DL 1.8-2.4 L GLUCOSE BEDSIDE [id number] 20:43:00 Test Item Value Reference Range Interpretation Comments GLUCOSE BEDSIDE TESTING (test code 204 mg/dL 70-110 H = GLUBED) GLUCOSE BEDSIDE [id number] 16:33:00 Test Item Value Reference Range Interpretation Comments GLUCOSE BEDSIDE TESTING (test code 115 mg/dL 70-110 H = GLUBED) - XR CHEST 1 [id number] 15:26:00 [facility] 1980 Sex: F Name: HARLEEN MANZANO [place] : 1980 Age/S: 41 / F [address] [address] Unit #: [id number] Loc: [place] [address] Phys: Pro Bustamante MD Acct: [id number] Dis Date: Status: ADM IN PHONE #: [phone] Exam Date: 11/30/2021 1510 FAX #: Reason: PICC PLACEMENT EXAMS: CPT: [id number] XR CHEST 1 V 60308 Fluoro Time: DAP (Gy m2): Air Kerma (mGy): Location: C3 EXAM: XR CHEST 1 VIEW INDICATION: PICC PLACEMENT COMPARISON: 11/25/2021 TECHNIQUE: AP Chest FINDINGS: Lines, tubes and hardware: Left PICC tip overlies the expected location of the cavoatrial junction. Lungs and pleura: Low lung volumes limit the evaluation. No focal consolidation. Bilateral costophrenic sulci are sharp. No appreciable pneumothorax. There is a 1.7 cm nodular opacity along the superior right hilum. Heart/mediastinum: The cardiomediastinal silhouette is stable. Bones/soft tissues: No acute bony abnormality. IMPRESSION: 1. Left PICC, as above. 2. No appreciable pneumothorax. No radiographic evidence of acute cardiopulmonary abnormality. 4. Incidental 1.7 cm superior right hilar nodular opacity, which may represent a prominent vessel or an object on the skin surface. A pulmonary nodule is not excluded. Low lung volumes limit evaluation. Consider follow-up with a standing, PA/lateral 2 view chest radiograph versus CT. at 1526 Reported and signed by: Vance Culp M.D. CC: Yusuf Castle MD; Pro Pritchard MD PAGE 1 Signed Report Name: HARLEEN MANZANO [facility] : 1980 Age/S: 41 / F [address] [address] Unit #: [id number] Loc: [place] [address] Phys: Pro Bustamante MD Acct: [id number] Dis Date: Status: ADM IN PHONE #: [phone] Exam Date: 11/30/2021 1510 FAX #: Reason: PICC PLACEMENT EXAMS: CPT: [id number] XR CHEST 1 V 87110 Fluoro Time: DAP (Gy m2): Air Kerma (mGy): (Continued) Technologist: Tiffani Santiago RT(R)(CT) Trnscb Date/Time: 11/30/2021 (152) [email or web address] Orig Print D/T: S: 11/30/2021 (4272) PAGE 2 Signed ReportGLUCOSE BEDSIDE [id number] 11:44:00 Test Item Value Reference Range Interpretation Comments GLUCOSE BEDSIDE TESTING (test code 214 mg/dL 70-110 H = GLUBED) GLUCOSE BEDSIDE [id number] 07:51:00 Test Item Value Reference Range Interpretation Comments GLUCOSE BEDSIDE TESTING (test code 133 mg/dL 70-110 H = GLUBED) GLUCOSE BEDSIDE [id number] 06:30:00 Test Item Value Reference Range Interpretation Comments GLUCOSE BEDSIDE TESTING (test code 138 mg/dL 70-110 H = GLUBED) BASIC METABOLIC [id number] 06:17:00 Test Item Value Reference Range Interpretation Comments SODIUM (test code = NA) 140 mmol/L 134-147 N POTASSIUM (test code = K) 3.7 mmol/L 3.4-5.0 N CHLORIDE (test code = CL) 108 mmol/L 100-108 N CARBON DIOXIDE (test code = CO2) 25 mmol/L 21-32 N ANION GAP (test code = GAP) 7.0 GAP calc 4.0-15.0 N GLUCOSE (test code = GLU) 135 MG/DL 70-110 H BLOOD UREA NITROGEN (test code = 14 MG/DL 7-18 N BUN) GLOMERULAR FILTRATION RATE (test 26 estGFR >60 L code = GFR) CREATININE (test code = CREAT) 2.6 MG/DL 0.6-1.0 H CALCIUM (test code = CA) 8.2 MG/DL 8.5-10.1 L RENAL FUNCTION [id number] 06:17:00 Test Item Value Reference Range Interpretation Comments ALBUMIN (test code = ALB) 2.1 G/DL 3.4-5.0 L PHOSPHOROUS (test code = PHOS) 4.1 MG/DL 2.5-4.9 N CBC W/AUTO [id number] 06:10:00 Test Item Value Reference Range Interpretation Comments WHITE BLOOD CELL (test code = 8.5 K/mm3 3.5-11.0 N WBC) RED BLOOD CELL (test code = 3.69 M/mm3 4.70-6.10 L RBC) HEMOGLOBIN (test code = HGB) 9.1 G/DL 10.4-14.9 L HEMATOCRIT (test code = HCT) 29.5 % 31.5-44.1 L MEAN CELL VOLUME (test code = 79.9 Fl 84.5-98.6 L MCV) MEAN CELL HGB (test code = MCH) 24.7 pg 27.0-34.2 L MEAN CELL HGB CONCETRATION 30.8 G/DL 31.5-34.0 L (test code = MCHC) RED CELL DISTRIBUTION WIDTH 13.6 SD 11.5-14.5 N (test code = RDW) PLATELET COUNT (test code = 325 K/mm3 150-450 N PLT) MEAN PLATELET VOLUME (test code 10.90 fL 7.0-10.5 H = MPV) NEUTROPHIL % (test code = NT%) 63.2 % 40-76 N IMMATURE GRANULOCYTE % (test 0.4 % 0.0-5.0 N code = IG%) LYMPHOCYTE % (test code = LY%) 26.4 % 20.5-51.1 N MONOCYTE % (test code = MO%) 9.6 % 1.7-9.3 H EOSINOPHIL % (test code = EO%) 0.0 % 0.0-6.0 N BASOPHIL % (test code = BA%) 0.4 % 0.0-2.0 N NUCLEATED RBC % (test code = 0.0 /100WBC% 0.0-1.0 N NRBC%) NEUTROPHIL # (test code = NT#) 5.4 K/mm3 1.8-7.6 N IMMATURE GRANULOCYTE # (test 0.03 x10 3/uL 0.00-0.03 N code = IG#) LYMPHOCYTE # (test code = LY#) 2.2 K/mm3 0.6-3.2 N MONOCYTE # (test code = MO#) 0.8 K/mm3 0.3-1.1 N EOSINOPHIL # (test code = EO#) 0.0 K/mm3 0.0-0.4 N BASOPHIL # (test code = BA#) 0.0 K/mm3 0.0-0.1 N NUCLEATED RBC # (test code = 0.0 K/mm3 0.0-0.1 N NRBC#) MANUAL DIFF REQUIRED (test code NO DIFF/SCN CRITERIA = MDIFF) UR SODIUM [id number] 05:12:00 Test Item Value Reference Range Interpretation Comments UR SODIUM RANDOM 37 MEQ/L See_Comment The Referen ce Range and (test code = YADI) Method Per formance specificationsh ave not been established for this fluid. The test result should be correlated into the clinical context forinte rpretation. [Automated mess age] The system which ge nerated this result transmit kennedy reference range: (). The reference range was not u sed to interpret this result as normal/abnormal . UR CREATININE [id number] 05:12:00 Test Item Value Reference Range Interpretation Comments UR CREATININE RANDOM (test code = 76.6 MG/DL 30-125 N CREATU) UR SODIUM [id number] 05:11:00 Test Item Value Reference Range Interpretation Comments UR SODIUM RANDOM 37 MEQ/L The Referen ce Range and (test code = YADI) Method Per formance specificationsh ave not been established for this fluid. The test result should be correlated into the clinical context forinte rpretation. GLUCOSE BEDSIDE [id number] 20:59:00 Test Item Value Reference Range Interpretation Comments GLUCOSE BEDSIDE TESTING (test code 191 mg/dL 70-110 H = GLUBED) - DUP LE ART UNI [id number] 16:33:00 [facility] 1980 Sex: F [place] : 1980 Age/S: 41 / F [address] [address] Unit #: [id number] Loc: [place] [address] Phys: Jonathan Hernandez MD Acct: [id number] Dis Date: Status: ADM IN PHONE #: [phone] Exam Date: 11/29/2021 1600 FAX #: Reason: check on blood circulation/rule out PAD EXAMS: CPT: [id number] PEND[facility] TO [facility] [address] Location code: H5 Arterial Sonogram Left Lower Extremity Indication: check on blood circulation/rule out PAD. Comparison: None Technique: [place] scale, color flow, and spectral Doppler imaging of the left lower extremity was performed. Findings: Triphasic flow with normal spectral analysis and normal peak systolic and diastolic velocities, is identified in the common femoral, superficial femoral, popliteal, anterior tibial, and posterior tibial arteries. Impression: 1. No evidence of hemodynamically significant stenosis. The degree of stenosis is determined by Nascet derived PSV criteria. at 1633 Reported and signed by: Pro Ugarte M.D. CC: Yusuf Castle MD; Jonathan Hernandez MD Technologist: Susanne Emerson [facility] Date/Time: 11/29/2021 (1633) [email or web address] PAGE 1 Signed Report Name: HARLEEN MANZANO : 1980 Age/S: 41 / F [address] [address] Unit #: [id number] Loc: [place] [address] Phys: Jonathan Hernandez MD Acct: [id number] Dis Date: Status: ADM IN PHONE #: [phone] Exam Date: 11/29/2021 1600 FAX #: Reason: check on blood circulation/rule out PAD EXAMS: CPT: [id number] [place] [address] (Continued) Orig Print D/T: S: 11/29/2021 (1636) Probe: PAGE 2 Signed ReportGLUCOSE BEDSIDE [id number] 15:14:00 Test Item Value Reference Range Interpretation Comments GLUCOSE BEDSIDE TESTING (test code 164 mg/dL 70-110 H = GLUBED) GLUCOSE BEDSIDE [id number] 11:18:00 Test Item Value Reference Range Interpretation Comments GLUCOSE BEDSIDE TESTING (test code 148 mg/dL 70-110 H = GLUBED) GLUCOSE BEDSIDE [id number] 06:48:00 Test Item Value Reference Range Interpretation Comments GLUCOSE BEDSIDE TESTING (test code 127 mg/dL 70-110 H = GLUBED) BASIC METABOLIC [id number] 05:57:00 Test Item Value Reference Range Interpretation Comments SODIUM (test code = NA) 137 mmol/L 134-147 N POTASSIUM (test code = K) 3.5 mmol/L 3.4-5.0 N CHLORIDE (test code = CL) 106 mmol/L 100-108 N CARBON DIOXIDE (test code = CO2) 24 mmol/L 21-32 N ANION GAP (test code = GAP) 7.0 GAP calc 4.0-15.0 N GLUCOSE (test code = GLU) 128 MG/DL 70-110 H BLOOD UREA NITROGEN (test code = 14 MG/DL 7-18 N BUN) GLOMERULAR FILTRATION RATE (test 27 estGFR >60 L code = GFR) CREATININE (test code = CREAT) 2.5 MG/DL 0.6-1.0 H CALCIUM (test code = CA) 7.8 MG/DL 8.5-10.1 L RENAL FUNCTION [id number] 05:57:00 Test Item Value Reference Range Interpretation Comments ALBUMIN (test code = ALB) 2.0 G/DL 3.4-5.0 L PHOSPHOROUS (test code = PHOS) 4.3 MG/DL 2.5-4.9 N [id number] 05:57:00 Test Item Value Reference Range Interpretation Comments MAGNESIUM (test code = MAG) 1.8 MG/DL 1.8-2.4 N CBC W/AUTO [id number] 05:43:00 Test Item Value Reference Range Interpretation Comments WHITE BLOOD CELL (test code = 8.1 K/mm3 3.5-11.0 N WBC) RED BLOOD CELL (test code = 3.33 M/mm3 4.70-6.10 L RBC) HEMOGLOBIN (test code = HGB) 8.3 G/DL 10.4-14.9 L HEMATOCRIT (test code = HCT) 26.0 % 31.5-44.1 L MEAN CELL VOLUME (test code = 78.1 Fl 84.5-98.6 L MCV) MEAN CELL HGB (test code = MCH) 24.9 pg 27.0-34.2 L MEAN CELL HGB CONCETRATION 31.9 G/DL 31.5-34.0 N (test code = MCHC) RED CELL DISTRIBUTION WIDTH 13.5 SD 11.5-14.5 N (test code = RDW) PLATELET COUNT (test code = 314 K/mm3 150-450 N PLT) MEAN PLATELET VOLUME (test code 11.20 fL 7.0-10.5 H = MPV) NEUTROPHIL % (test code = NT%) 58.2 % 40-76 IMMATURE GRANULOCYTE % (test 0.5 % 0.0-5.0 N code = IG%) LYMPHOCYTE % (test code = LY%) 31.6 % 20.5-51.1 N MONOCYTE % (test code = MO%) 9.2 % 1.7-9.3 N EOSINOPHIL % (test code = EO%) 0.0 % 0.0-6.0 N BASOPHIL % (test code = BA%) 0.5 % 0.0-2.0 N NUCLEATED RBC % (test code = 0.0 /100WBC% 0.0-1.0 N NRBC%) NEUTROPHIL # (test code = NT#) 4.7 K/mm3 1.8-7.6 N IMMATURE GRANULOCYTE # (test 0.04 x10 3/uL 0.00-0.03 H code = IG#) LYMPHOCYTE # (test code = LY#) 2.6 K/mm3 0.6-3.2 N MONOCYTE # (test code = MO#) 0.7 K/mm3 0.3-1.1 N EOSINOPHIL # (test code = EO#) 0.0 K/mm3 0.0-0.4 N BASOPHIL # (test code = BA#) 0.0 K/mm3 0.0-0.1 N NUCLEATED RBC # (test code = 0.0 K/mm3 0.0-0.1 N NRBC#) MANUAL DIFF REQUIRED (test code NO DIFF/SCN CRITERIA = MDIFF) GLUCOSE BEDSIDE [id number] 20:57:00 Test Item Value Reference Range Interpretation Comments GLUCOSE BEDSIDE TESTING (test code 211 mg/dL 70-110 H = GLUBED) GLUCOSE BEDSIDE [id number] 17:11:00 Test Item Value Reference Range Interpretation Comments GLUCOSE BEDSIDE TESTING (test code 179 mg/dL 70-110 H = GLUBED) - US RETRO [id number] 17:06:00 [facility] 1980 Sex: F Name: HARLEEN MANZANO [facility] : 1980 Age/S: 41 / F [address] [address] Unit #: [id number] Loc: [place] [address] Phys: Gabriela Higginbotham MD Acct: [id number] Dis Date: Status: ADM IN PHONE #: [phone] Exam Date: 2021 1643 FAX #: Reason: JAYLEEN/CKD EXAMS: CPT: [id number] [facility] [address] Location code: H5 Renal Sonogram Indication: JAYLEEN/CKD. Comparison: None. Technical factors: Long and short axis york scale images were obtained with Doppler and color flow evaluation. Findings: Rightkidney: The kidney measures 10.5 x 5.7 x 6.2 cm. No hydronephrosis or perirenal fluid collection. Renal cortical thickness of 1.9 cm is normal. Parenchymal echogenicity is normal. No evidence of renal cyst or mass. Left kidney: The kidney measures 9.2 x 5 x 4.7 cm. No hydronephrosis or perirenal fluidcollection. Renal cortical thickness of 1.8 cmis normal. Parenchymal echogenicity is normal. No evidence of renal cyst or mass. Impression: 1. Normal exam. at 1706 Reported and signed by: Pro Ugarte M.D. CC: Gabriela Higginbotham MD; Yusuf Castle MD Technologist: Susanne Emerson Trnncb Date/Time: 2021 (170) [email or web address] PAGE 1 Signed Report Name: HARLEEN MANZANO [facility] : 1980 Age/S: 41 / F [address] [address] Unit #: [id number] Loc: [place] [address] Phys: Gabriela Higginbotham MD Acct: [id number] Dis Date: Status: ADM IN PHONE #: [phone] Exam Date: 2021 1643 FAX #: Reason: JAYLEEN/CKD EXAMS: CPT: [id number] [facility] [address] (Continued) Orig Print D/T: S: 2021 (170) Probe: PAGE 2 SignedReport GLUCOSE BEDSIDE [id number] 11:17:00 Test Item Value Reference Range Interpretation Comments GLUCOSE BEDSIDE TESTING (test code 170 mg/dL 70-110 H = GLUBED) GLUCOSE BEDSIDE [id number] 07:37:00 Test Item Value Reference Range Interpretation Comments GLUCOSE BEDSIDE TESTING (test code 229 mg/dL 70-110 H = GLUBED) BASIC METABOLIC [id number] 05:48:00 Test Item Value Reference Range Interpretation Comments SODIUM (test code = NA) 134 mmol/L 134-147 N POTASSIUM (test code = K) 3.2 mmol/L 3.4-5.0 L CHLORIDE (test code = CL) 101 mmol/L 100-108 N CARBON DIOXIDE (test code = 21 mmol/L 21-32 N CO2) ANION GAP (test code = GAP) 12.0 GAP calc 4.0-15.0 N GLUCOSE (test code = GLU) 216 MG/DL 70-110 H BLOOD UREA NITROGEN (test code 13 MG/DL 7-18 N = BUN) GLOMERULAR FILTRATION RATE 30 estGFR >60 L (test code = GFR) CREATININE (test code = CREAT) 2.3 MG/DL 0.6-1.0 H CALCIUM (test code = CA) 8.0 MG/DL 8.5-10.1 L [id number] 05:48:00 Test Item Value Reference Range Interpretation Comments PHOSPHOROUS (test code = PHOS) 3.7 MG/DL 2.5-4.9 N [id number] 05:48:00 Test Item Value Reference Range Interpretation Comments MAGNESIUM (test code = MAG) 1.3 MG/DL 1.8-2.4 L GLUCOSE BEDSIDE [id number] 15:59:00 Test Item Value Reference Range Interpretation Comments GLUCOSE BEDSIDE TESTING (test code 262 mg/dL 70-110 H = GLUBED) GLUCOSE BEDSIDE [id number] 11:13:00 Test Item Value Reference Range Interpretation Comments GLUCOSE BEDSIDE TESTING (test code 205 mg/dL 70-110 H = GLUBED) GLUCOSE BEDSIDE [id number] 10:16:00 Test Item Value Reference Range Interpretation Comments GLUCOSE BEDSIDE TESTING (test code 182 mg/dL 70-110 H = GLUBED) BASIC METABOLIC [id number] 07:08:00 Test Item Value Reference Range Interpretation Comments SODIUM (test code = NA) 137 mmol/L 134-147 N POTASSIUM (test code = K) 3.2 mmol/L 3.4-5.0 L CHLORIDE (test code = CL) 103 mmol/L 100-108 N CARBON DIOXIDE (test code = 24 mmol/L 21-32 N CO2) ANION GAP (test code = GAP) 10.0 GAP calc 4.0-15.0 N GLUCOSE (test code = GLU) 144 MG/DL 70-110 H BLOOD UREA NITROGEN (test code 7 MG/DL 7-18 N = BUN) GLOMERULAR FILTRATION RATE 58 estGFR >60 L (test code = GFR) CREATININE (test code = CREAT) 1.3 MG/DL 0.6-1.0 H CALCIUM (test code = CA) 8.0 MG/DL 8.5-10.1 L HCG SERUM [id number] 07:08:00 Test Item Value Reference Range Interpretation Comments HCG SERUM QUAL (test SERUM NEGATIVE SCREEN NEGATIVE code = HCGQL) VANCOMYCIN [id number] 06:49:00 Test Item Value Reference Range Interpretation Comments VANCOMYCIN TROUGH (test code = 27.5 mcG/ML 10-20 H VANCT) CBC W/AUTO [id number] 06:38:00 Test Item Value Reference Range Interpretation Comments WHITE BLOOD CELL (test code = 10.0 K/mm3 3.5-11.0 N WBC) RED BLOOD CELL (test code = 3.54 M/mm3 4.70-6.10 L RBC) HEMOGLOBIN (test code = HGB) 8.8 G/DL 10.4-14.9 L HEMATOCRIT (test code = HCT) 27.5 % 31.5-44.1 L MEAN CELL VOLUME (test code = 77.7 Fl 84.5-98.6 L MCV) MEAN CELL HGB (test code = MCH) 24.9 pg 27.0-34.2 L MEAN CELL HGB CONCETRATION 32.0 G/DL 31.5-34.0 N (test code = MCHC) RED CELL DISTRIBUTION WIDTH 13.5 SD 11.5-14.5 N (test code = RDW) PLATELET COUNT (test code = 344 K/mm3 150-450 N PLT) MEAN PLATELET VOLUME (test code 11.00 fL 7.0-10.5 H = MPV) NEUTROPHIL % (test code = NT%) 72.0 % 40-76 N IMMATURE GRANULOCYTE % (test 0.5 % 0.0-5.0 N code = IG%) LYMPHOCYTE % (test code = LY%) 15.1 % 20.5-51.1 L MONOCYTE % (test code = MO%) 12.0 % 1.7-9.3 H EOSINOPHIL % (test code = EO%) 0.0 % 0.0-6.0 N BASOPHIL % (test code = BA%) 0.4 % 0.0-2.0 N NUCLEATED RBC % (test code = 0.0 /100WBC% 0.0-1.0 N NRBC%) NEUTROPHIL # (test code = NT#) 7.2 K/mm3 1.8-7.6 N IMMATURE GRANULOCYTE # (test 0.05 x10 3/uL 0.00-0.03 H code = IG#) LYMPHOCYTE # (test code = LY#) 1.5 K/mm3 0.6-3.2 N MONOCYTE # (test code = MO#) 1.2 K/mm3 0.3-1.1 H EOSINOPHIL # (test code = EO#) 0.0 K/mm3 0.0-0.4 N BASOPHIL # (test code = BA#) 0.0 K/mm3 0.0-0.1 N NUCLEATED RBC # (test code = 0.0 K/mm3 0.0-0.1 N NRBC#) MANUAL DIFF REQUIRED (test code NO DIFF/SCN CRITERIA = MDIFF) GLUCOSE BEDSIDE [id number] 20:22:00 Test Item Value Reference Range Interpretation Comments GLUCOSE BEDSIDE TESTING (test code 273 mg/dL 70-110 H = GLUBED) GLUCOSE BEDSIDE [id number] 16:55:00 Test Item Value Reference Range Interpretation Comments GLUCOSE BEDSIDE TESTING (test code 265 mg/dL 70-110 H = GLUBED) - MRI LOW EXT W/O CONT [id number] 16:18:00 [facility] 1980 Sex: F FAX: Yusuf Finch MD [phone] Camps: PM St: ADM FAX: Ryanne Alonso [phone] Name: HARLEEN MANZANO [facility] [place] : 1980 Age/S: 40/F [address] Unit #: [id number] Loc: LEliasPO[address] [place], [place] [address]Pxwr: Jose Garland MD Acct: [id number] Dis Date: Status: ADM IN PHONE #: [phone] Exam Date: 11/26/2021 1420 FAX #: Reason: Left foot osteomyelitis 5the toe, rule out 4th EXAMS: CPT: [id number] [place] L[place] EX[place] W/[place] [address] Exam: MRI left foot without contrast Dictation location: B2 INDICATION: Left foot cellulitis 5th toe, rule out 4th toe osteomyelitis COMPARISON: Left foot x-ray on 07/26/2021 TECHNIQUE: Axial T1 and T2 fat-sat, coronal T1 and PD fat-sat, and sagittal STIR and T1-weighted sequences of the left foot were obtained without IV contrast. DISCUSSION: Osseous structures: There is cortical erosion or T1 marrow replacement involving the proximal, mid, and distal phalanges of the 5th digit, as well as the head, neck, distal diaphysis of the 5th metatarsal, consistent with osteomyelitis. There are cortical erosions and marrow replacement of the 4th metatarsal head, consistent with osteomyelitis, and questionably at the volar base of the proximal 4th phalanx. The 1st through 3rd rays are unremarkable. Septic arthritis at the 4th and 5th MTP joints is possible, although would be more likely at the 5th MTP joint. Soft tissues: A wound/ulcer is identified plantar to the 4thand 5th MTP joints. An abscess is seen dorsal to the proximal 5th phalanx and continuing inferiorly on each side of the proximal 5th phalanx, measuring up to 4 x 2 x 1.8 cm (dorsal to plantar by transverse by proximal distal). IMPRESSION: 1. Osteomyelitis of the 5th digit phalanges and the head, neck, and distal diaphysis of the 5th metatarsal. 2. Osteomyelitis of the head of the 4th metatarsal. There is questionable osteomyelitis of the volar base of the proximal 4th phalanx. Septic arthritis of the 4th and 5th MTP joints is possible, although would be more likely of the 5th MTP joint. 3. Wound/ulcer plantar to the 4th and 5th MTP joints. There is an abscess dorsal, medial, and lateral to the proximal 5th phalanx, measuring 4 x 2 x 1.8 cm. PAGE 1 Signed Report (CONTINUED) FAX: Yusuf Finch [facility] [phone] Camps: PM St: ADM FAX: Ryanne Alonso [phone] Name: HARLEEN MANZANO [facility] : 1980 Age/S: 40/F [address] Unit #: [id number] Loc: L.[address] [place] [address] Phys: Jose Garland MD Acct: [id number] Dis Date: Status: ADM IN PHONE #: [phone] Exam Date: 11/26/2021 1420 FAX #: Reason: Left foot osteomyelitis 5the toe, rule out 4th EXAMS: CPT: [id number] [place] LOWEXT W/[place] [address] (Continued) at 1618 Reported and signed by: Jimmy Arango M.D. CC: Yusuf Castle MD; Jose Valiente Technologist: RT Maura(R)(MR) Transcribed Date/Time/By: 11/26/2021 (1618) :[email or web address] Orig Print D/T: S: 11/26/2021 (3498) PAGE 2 Signed ReportGLUCOSE BEDSIDE TESTING 2021-11-26 12:04:00 Test Item Value Reference Range Interpretation Comments GLUCOSE BEDSIDE TESTING (test code 246 mg/dL 70-110 H = GLUBED) GLUCOSE BEDSIDE [id number] 08:10:00 Test Item Value Reference Range Interpretation Comments GLUCOSE BEDSIDE TESTING (test code 213 mg/dL 70-110 H = GLUBED) GLUCOSE BEDSIDE [id number] 22:01:00 Test Item Value Reference Range Interpretation Comments GLUCOSE BEDSIDE TESTING (test code 238 mg/dL 70-110 H = GLUBED) - XR CHEST 1 [id number] 21:35:00 [facility] : 1980 Sex: F Name: HARLEEN MANZANO [facility] : 1980 Age/S: 40 / F [address] Unit #: [id number] Loc: [place] [address] Phys: Yusuf Castle MD Acct: [id number] Dis Date: Status: ADM IN PHONE #: [phone] Exam Date: 11/25/20211920 FAX #: Reason: fever EXAMS: CPT: [id number] XR CHEST 1 V 29802 Fluoro Time: DAP (Gy m2): Air Kerma (mGy): HISTORY: Fever Location: C3 COMPARISON:10/15/2021 FINDINGS: Heart size is upper normal. The lungs are clear of focal consolidation. No effusion, pneumothorax, oracute osseous abnormality. IMPRESSION: 1. No focal consolidation. No other acute abnormality. Elec tronically Signed by Faizan Vazquez on 11/25/2021 at 2135 Reported and signed by: Timi Vazquez M.D. CC: Yusuf Castle MD PAGE 1 Signed Report Name: HARLEEN MANZANO [facility] : 1980 Age/S: 40 / F [address] Unit #: [id number] Loc: [place] [address] Phys: Yusuf Castle MD Acct: [id number] Dis Date: Status: ADM IN PHONE #: [phone] Exam Date: 11/25/20211920 FAX #: Reason: fever EXAMS: CPT: [id number] XR CHEST 1 V 34219 Fluoro Time: DAP (Gy m2): Air Kerma (mGy): (Continued) Technologist: Olga Acosta, RT(R)(CT) Trnscb Date/Time: 11/25/2021 (2134) [email or web address] Orig Print D/T: S: 11/25/2021 (2137) PAGE 2 Signed ReportLACTIC [id number] 19:31:00 Test Item Value Reference Range Interpretation Comments LACTIC ACID (test code = LACT) 1.0 mmol/L 0.4-2.0 COVID 19 Asymptomatic IH [id number] 19:03:00 Test Item Value Reference Range Interpretation Comments COVID 19 Asymptomatic NEGATIVE Negative Per ma nufacturer, IH AG (test code = negative results should COVNONPUIAG) be treated aspresumptive a nd, if inconsistent wi th clinical signs andsymptoms or necessary for p atient management, ramya uld betested with a n alternative mol ecular assay. Negative resultsdo not p reclude SARS-CoV-2 infe ction and should not be usedas the sole basis for patient man agement decisions. Nega tive results should be considered in t he context of apat ient's recent exposure s, history, presen ce of clinicalsigns a nd symptoms consis tent with COVID-19. LACTIC [id number] 17:25:00 Test Item Value Reference Range Interpretation Comments LACTIC ACID (test code = LACT) 2.7 mmol/L 0.4-2.0 H BASIC METABOLIC [id number] 17:24:00 Test Item Value Reference Range Interpretation Comments SODIUM (test code = NA) 132 mmol/L 134-147 L POTASSIUM (test code = K) 3.0 mmol/L 3.4-5.0 L CHLORIDE (test code = CL) 96 mmol/L 100-108 L CARBON DIOXIDE (test code = 25 mmol/L 21-32 N CO2) ANION GAP (test code = GAP) 11.0 GAP calc 4.0-15.0 N GLUCOSE (test code = GLU) 211 MG/DL 70-110 H BLOOD UREA NITROGEN (test code 6 MG/DL 7-18 L = BUN) GLOMERULAR FILTRATION RATE 58 estGFR >60 L (test code = GFR) CREATININE (test code = CREAT) 1.3 MG/DL 0.6-1.0 H CALCIUM (test code = CA) 9.1 MG/DL 8.5-10.1 N Completed by Nursing: NOHEPATIC FUNCTION [id number] 17:24:00 Test Item Value Reference Range Interpretation Comments TOTAL PROTEIN (test code = PROT) 8.5 G/DL 6.4-8.2 H ALBUMIN (test code = ALB) 2.8 G/DL 3.4-5.0 L BILIRUBIN TOTAL (test code = BILT) 0.40 MG/DL 0.2-1.2 N BILIRUBIN DIRECT (test code = 0.10 MG/DL 0.00-0.30 N BILD) BILIRUBIN INDIRECT (test code = 0.30 MG/DL 0.2-1.2 N BILIND) SGOT/AST (test code = AST) 14 Unit/L 15-37 L SGPT/ALT (test code = ALT) 11 Unit/L 12-78 L ALKALINE PHOSPHATASE TOTAL (test 73 Unit/L 45-117 N code = ALKP) Completed by Nursing: NOTROP-I HIGH [id number] 17:24:00 Test Item Value Reference Range Interpretation Comments TROP-I HIGH 4.7 ng/L 0-34 N CAUTION: Units of the SENSITIVITY (test current te st methodology code = TROPIHS) (ng/L) diffe rfrom the prior test meth odology (ng/mL) by a fa ctor of 1000. 99t h Percentile Uppe r Reference Limit (URL):Fem ales: 34 ng/LMales: 54 n g/L In order to distin guish acute elevations of h igh sensitivitytrop onin from other clinical conditions, the FourthUnive rsal Definition of M yocardial Infarction stressesclinica l assessment and the demonstration o f a rise and/orfall in s erial troponin result s above the URL. Results fr om different metho dologies should not be c omparedto one another as quantitative re sults and URLs may varyby method. Completed by Nursing: NOCBC W/AUTO [id number] 16:59:00 Test Item Value Reference Range Interpretation Comments WHITE BLOOD CELL (test code = 12.3 K/mm3 3.5-11.0 H WBC) RED BLOOD CELL (test code = 4.26 M/mm3 4.70-6.10 L RBC) HEMOGLOBIN (test code = HGB) 10.6 G/DL 10.4-14.9 N HEMATOCRIT (test code = HCT) 33.1 % 31.5-44.1 N MEAN CELL VOLUME (test code = 77.7 Fl 84.5-98.6 L MCV) MEAN CELL HGB (test code = MCH) 24.9 pg 27.0-34.2 L MEAN CELL HGB CONCETRATION 32.0 G/DL 31.5-34.0 N (test code = MCHC) RED CELL DISTRIBUTION WIDTH 13.2 SD 11.5-14.5 N (test code = RDW) PLATELET COUNT (test code = 425 K/mm3 150-450 N PLT) MEAN PLATELET VOLUME (test code 11.30 fL 7.0-10.5 H = MPV) NEUTROPHIL % (test code = NT%) 78.6 % 40-76 H IMMATURE GRANULOCYTE % (test 0.4 % 0.0-5.0 N code = IG%) LYMPHOCYTE % (test code = LY%) 15.9 % 20.5-51.1 L MONOCYTE % (test code = MO%) 4.9 % 1.7-9.3 N EOSINOPHIL % (test code = EO%) 0.0 % 0.0-6.0 N BASOPHIL % (test code = BA%) 0.2 % 0.0-2.0 N NUCLEATED RBC % (test code = 0.0 /100WBC% 0.0-1.0 N NRBC%) NEUTROPHIL # (test code = NT#) 9.7 K/mm3 1.8-7.6 H IMMATURE GRANULOCYTE # (test 0.05 x10 3/uL 0.00-0.03 H code = IG#) LYMPHOCYTE # (test code = LY#) 2.0 K/mm3 0.6-3.2 N MONOCYTE # (test code = MO#) 0.6 K/mm3 0.3-1.1 N EOSINOPHIL # (test code = EO#) 0.0 K/mm3 0.0-0.4 N BASOPHIL # (test code = BA#) 0.0 K/mm3 0.0-0.1 N NUCLEATED RBC # (test code = 0.0 K/mm3 0.0-0.1 N NRBC#) MANUAL DIFF REQUIRED (test code NO DIFF/SCN CRITERIA = MDIFF) - XR FOOT 3+V [id number] 16:43:00 [facility] 1980 Sex: F Name: AHRLEEN MANZANO [facility] : 1980 Age/S: 40 / F [address] [address] Unit #: [id number] Loc: [place] [address] Phys: ZenonMichael Acct: [id number] Dis Date: Status: PRE ER PHONE #: [phone] Exam Date: 11/25/2021 1623 FAX #: Reason: infection EXAMS: CPT: [id number] XR FOOT 3+V LT [address]Envexb Time: DAP (Gy m2): Air Kerma (mGy): Dictation location: U19. LEFT FOOT, 3 VIEWS HISTORY: Infection. FINDINGS: Soft tissue swelling and subcutaneous emphysema seen along the fifth digit MTP joint. Erosions are seen along the fifth metatarsal head and fifth proximal phalanx. Likely pathological fractures involving the fifth metatarsal head and fifth proximal phalanx. Degenerative changes noted along the dorsum of the midfoot with dorsal osteophytes. Vascular calcifications. IMPRESSION: Osteomyelitis with pathological fractures involving the fifth metatarsal head and fifth proximal phalanx. Subcutaneous emphysema overlying the fifth proximal phalanx may relate to overlying wound or potentially a gas gangrene. at 1643 Reported and signed by: Christine Marshall M.D. CC: Michael Wu DO PAGE 1 Signed Report Name: HARLEEN MANZANO [facility] : 1980 Age/S: 40 / F [address] [address] Unit #: [id number] Loc: [place] [address] Phys: Michael Wu DO Acct: [id number] Dis Date: Status: PRE ER PHONE #: [phone] Exam Date: 11/25/2021 1629 FAX #: Reason: infection EXAMS: CPT: [id number] XR FOOT 3+[place] [address] FluoroTime: DAP (Gy m2): Air Kerma (mGy): (Continued) Technologist: Nicholas Mas, RT(R)(CT) Trnscb Date/Time: 11/25/2021 (1642) [email or web address] Orig Print D/T: S: 11/25/2021 (1645) PAGE 2 S[facility] Report[facility] ART[facility] BLOOD [id number] 11:02:00 Test Item Value Reference Range Interpretation Comments POC ARTERIAL BLOOD GAS PH (test < 6.999 7.35-7.45 LL code = POCPHA) POC ARTERIAL BLOOD GAS PCO2 32.3 mmHg 35.0-45 L (test code = [id number]) POC TCO2 ARTERIAL (test code = 7.8 POCTCO2) POC ARTERIAL BLOOD GAS PO2 (test 546.0 mmHg 80-100.0 HH code = NRPWO7E) POC HCO3 ARTERIAL (test code = 6.8 MMOL/L 22.0-26.0 LL [id number]) POC BASE EXCESS (test code = -25.6 MMOL/L -4.0-4.0 L POCBEA) POC O2 SATURATION (test code = 99.9 % 90-100 N POCO2S) FIO2 (test code = FIO2A) 100 % PaO2/FiO2 (test code = [id number]) 546.00 mm/Hg ABG DELIVERY (test code = CARLOS) Adult Vent ABG VENT MODE (test code = AC MODEA) ABG VENT RESP RATE (test code = 18 /MIN RRA) ABG TIDAL VOLUME (test code = 500 ml TVA) ABG PEEP (test code = PEEPA) 5 cmH2O ABG TEMPERATURE (test code = 98.6 F TEMPA) ABG SITE (test code = SITEA) R Radial SINTIA'S TEST (test code = Positive ALLENS) BASIC METABOLIC [id number] 11:02:00 Test Item Value Reference Range Interpretation Comments SODIUM (test code = NA/ABG) 133 MEQ/L 134-147 L POTASSIUM (test code = K/ABG) 4.5 MEQ/L 3.4-5.0 N CHLORIDE (test code = CL/ABG) 108 MEQ/L 100-108 N CREATININE ABG (test code = 2.3 mg/dL 0.6-1.0 H CREAABG) POC IONIZED CALCIUM (test code = 1.25 MMOL/L 1.12-1.32 N POCCA) POC GLUCOSE (test code = POCGLU) > 700 MG/DL 70-110 H HEMOGLOBIN [id number] 11:02:00 Test Item Value Reference Range Interpretation Comments HEMOGLOBIN ABG (test code = 13.0 G/DL 11.0-15.0 N HGB/ABG) [id number] 11:02:00 Test Item Value Reference Range Interpretation Comments HEMATOCRIT (test code = HCT/ABG) 38 % 33.0-45.0 N POC LACTIC [id number] 11:02:00 Test Item Value Reference Range Interpretation Comments POC LACTIC ACID (test code = 1.5 mmol/l 0.9-1.7 N POCLAC) GLUCOSE [id number] 15:34:00 Test Item Value Reference Range Interpretation Comments GLUCOSE BEDSIDE (test 302 MG/DL 70-110 H Perfor med by certified code = GLUBED) 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 RENAL FUNCTION [id number] 07:20:00 Test Item Value Reference Range Interpretation Comments SODIUM (test code = NA) 132 mEq/L 134-147 L POTASSIUM (test code = 5.4 mEq/L 3.4-5.0 H SPECI MEN 1+ K) HEMOLYZED.Resul ts known to be adv ersely affected by hem olysis are: Potassium Magnesium LDH Phosphorus CHLORIDE (test code = 101 mEq/L 100-108 N CL) CARBON DIOXIDE (test 20 mEq/l 21-33 L code = CO2) ANION GAP (test code = 16 0-20 N GAP) GLUCOSE (test code = 189 mg/dL 70-110 H GLU) BLOOD UREA NITROGEN 12 mg/dL 7-18 (test code = BUN) GLOMERULAR FILTRATION 31.6 95-105 L Units of measure = RATE (test code = GFR) ml/mi n/1.73 m2 CREATININE (test code = 2.1 mg/dL 0.6-1.3 H CREAT) ALBUMIN (test code = 2.30 g/dL 3.4-5.0 L ALB) CALCIUM (test code = 8.5 mg/dL 8.0-10.5 N CA) PHOSPHOROUS (test code 4.4 MG/DL 2.5-4.9 N = PHOS) GLUCOSE [id number] 22:27:00 Test Item Value Reference Range Interpretation Comments GLUCOSE BEDSIDE (test 153 MG/DL 70-110 H Perfor med by certified code = GLUBED) 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 GLUCOSE [id number] 17:09:00 Test Item Value Reference Range Interpretation Comments GLUCOSE BEDSIDE (test 172 MG/DL 70-110 H Perfor med by certified code = GLUBED) 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 GLUCOSE [id number] 11:34:00 Test Item Value Reference Range Interpretation Comments GLUCOSE BEDSIDE (test 173 MG/DL 70-110 H Perfor med by certified code = GLUBED) 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 CBC W/AUTO [id number] 08:04:00 Test Item Value Reference Range Interpretation Comments WHITE BLOOD CELL (test code = 12.9 x10 3/uL 4.5-11.0 H WBC) RED BLOOD CELL (test code = 3.68 x10 6/uL 3.54-5.02 N RBC) HEMOGLOBIN (test code = HGB) 9.2 g/dL 11.0-15.0 L HEMATOCRIT (test code = HCT) 31.1 % 33.0-45.0 L MEAN CELL VOLUME (test code = 84.5 fL 81.0-99.0 N MCV) MEAN CELL HGB (test code = MCH) 25.0 pg 27.0-33.0 L MEAN CELL HGB CONCETRATION 29.6 g/dL 33.0-37.0 L (test code = MCHC) RED CELL DISTRIBUTION WIDTH CV 14.2 % 11.5-14.5 N (test code = RDW) RED CELL DISTRIBUTION WIDTH SD 44.0 fL 37.0-54.0 N (test code = RDW-SD) PLATELET COUNT (test code = 350 x10 3/uL 150-400 N PLT) MEAN PLATELET VOLUME (test code 12.4 fL 7.0-9.0 H = MPV) NEUTROPHIL % (test code = NT%) 51.0 % 56.0-77.0 L IMMATURE GRANULOCYTE % (test 0.3 % 0.0-2.0 N code = IG%) LYMPHOCYTE % (test code = LY%) 38.8 % 14.0-32.0 H MONOCYTE % (test code = MO%) 9.0 % 4.8-9.0 N EOSINOPHIL % (test code = EO%) 0.2 % 0.3-3.7 L BASOPHIL % (test code = BA%) 0.7 % 0.0-2.0 N NUCLEATED RBC % (test code = 0.0 % 0-0 N NRBC%) NEUTROPHIL # (test code = NT#) 6.58 x10 3/uL 2.0-7.6 N IMMATURE GRANULOCYTE # (test 0.04 x10 3/uL 0.00-0.03 H code = IG#) LYMPHOCYTE # (test code = LY#) 5.00 x10 3/uL 1.0-3.8 H MONOCYTE # (test code = MO#) 1.16 x10 3/uL 0.1-0.8 H EOSINOPHIL # (test code = EO#) 0.02 x10 3/uL 0.0-0.2 N BASOPHIL # (test code = BA#) 0.09 x10 3/uL 0.0-0.2 N NUCLEATED RBC # (test code = 0.00 x10 3/uL 0.0-0.1 N NRBC#) MANUAL DIFF REQUIRED (test code NO = MDIFF) GLUCOSE [id number] 07:48:00 Test Item Value Reference Range Interpretation Comments GLUCOSE BEDSIDE (test 240 MG/DL 70-110 H Perfor med by certified code = GLUBED) 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 RENAL FUNCTION [id number] 07:43:00 Test Item Value Reference Range Interpretation Comments SODIUM (test code = NA) 138 mEq/L 134-147 N POTASSIUM (test code = 3.3 mEq/L 3.4-5.0 L K) CHLORIDE (test code = 99 mEq/L 100-108 L CL) CARBON DIOXIDE (test 28 mEq/l 21-33 code = CO2) ANION GAP (test code = 14 0-20 N GAP) GLUCOSE (test code = 229 mg/dL 70-110 H GLU) BLOOD UREA NITROGEN 19 mg/dL 7-18 H (test code = BUN) GLOMERULAR FILTRATION 28.4 95-105 L Units of measure = RATE (test code = GFR) ml/mi n/1.73 m2 CREATININE (test code = 2.3 mg/dL 0.6-1.3 H CREAT) ALBUMIN (test code = 2.90 g/dL 3.4-5.0 L ALB) CALCIUM (test code = CA) 8.9 mg/dL 8.0-10.5 N PHOSPHOROUS (test code = 4.3 MG/DL 2.5-4.9 N PHOS) GLUCOSE [id number] 23:43:00 Test Item Value Reference Range Interpretation Comments GLUCOSE BEDSIDE (test 286 MG/DL 70-110 H Perfor med by certified code = GLUBED) 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 GLUCOSE [id number] 17:13:00 Test Item Value Reference Range Interpretation Comments GLUCOSE BEDSIDE (test 308 MG/DL 70-110 H Perfor med by certified code = GLUBED) 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 GLUCOSE [id number] 12:07:00 Test Item Value Reference Range Interpretation Comments GLUCOSE BEDSIDE (test 332 MG/DL 70-110 H Perfor med by certified code = GLUBED) 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 [facility] CBC W/AUTO [id number] 08:50:00 Test Item Value Reference Range Interpretation Comments WHITE BLOOD CELL (test code = 14.8 x10 3/uL 4.5-11.0 H WBC) RED BLOOD CELL (test code = 3.76 x10 6/uL 3.54-5.02 N RBC) HEMOGLOBIN (test code = HGB) 9.6 g/dL 11.0-15.0 L HEMATOCRIT (test code = HCT) 32.4 % 33.0-45.0 L MEAN CELL VOLUME (test code = 86.2 fL 81.0-99.0 N MCV) MEAN CELL HGB (test code = MCH) 25.5 pg 27.0-33.0 L MEAN CELL HGB CONCETRATION 29.6 g/dL 33.0-37.0 L (test code = MCHC) RED CELL DISTRIBUTION WIDTH CV 14.6 % 11.5-14.5 H (test code = RDW) RED CELL DISTRIBUTION WIDTH SD 45.7 fL 37.0-54.0 N (test code = RDW-SD) PLATELET COUNT (test code = 326 x10 3/uL 150-400 N PLT) MEAN PLATELET VOLUME (test code 12.3 fL 7.0-9.0 H = MPV) NEUTROPHIL % (test code = NT%) 59.6 % 56.0-77.0 N IMMATURE GRANULOCYTE % (test 0.5 % 0.0-2.0 N code = IG%) LYMPHOCYTE % (test code = LY%) 30.5 % 14.0-32.0 N MONOCYTE % (test code = MO%) 8.7 % 4.8-9.0 N EOSINOPHIL % (test code = EO%) 0.1 % 0.3-3.7 L BASOPHIL % (test code = BA%) 0.6 % 0.0-2.0 N NUCLEATED RBC % (test code = 0.0 % 0-0 N NRBC%) NEUTROPHIL # (test code = NT#) 8.82 x10 3/uL 2.0-7.6 H IMMATURE GRANULOCYTE # (test 0.07 x10 3/uL 0.00-0.03 H code = IG#) LYMPHOCYTE # (test code = LY#) 4.52 x10 3/uL 1.0-3.8 H MONOCYTE # (test code = MO#) 1.29 x10 3/uL 0.1-0.8 H EOSINOPHIL # (test code = EO#) 0.02 x10 3/uL 0.0-0.2 N BASOPHIL # (test code = BA#) 0.09 x10 3/uL 0.0-0.2 N NUCLEATED RBC # (test code = 0.00 x10 3/uL 0.0-0.1 N NRBC#) MANUAL DIFF REQUIRED (test code NO = MDIFF) RENAL FUNCTION [id number] 08:18:00 Test Item Value Reference Range Interpretation Comments SODIUM (test code = NA) 137 mEq/L 134-147 N POTASSIUM (test code = 3.4 mEq/L 3.4-5.0 N K) CHLORIDE (test code = 97 mEq/L 100-108 L CL) CARBON DIOXIDE (test 22 mEq/l 21-33 N code = CO2) ANION GAP (test code = 21 0-20 H GAP) GLUCOSE (test code = 328 mg/dL 70-110 H GLU) BLOOD UREA NITROGEN 24 mg/dL 7-18 H (test code = BUN) GLOMERULAR FILTRATION 25.8 95-105 L Units of measure = RATE (test code = GFR) ml/mi n/1.73 m2 CREATININE (test code = 2.5 mg/dL 0.6-1.3 H CREAT) ALBUMIN (test code = 2.90 g/dL 3.4-5.0 L ALB) CALCIUM (test code = CA) 8.9 mg/dL 8.0-10.5 N PHOSPHOROUS (test code = 5.0 MG/DL 2.5-4.9 H PHOS) GLUCOSE [id number] 08:05:00 Test Item Value Reference Range Interpretation Comments GLUCOSE BEDSIDE (test 325 MG/DL 70-110 H Perfor med by certified code = GLUBED) 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 [facility] GLUCOSE [id number] 06:47:00 Test Item Value Reference Range Interpretation Comments GLUCOSE BEDSIDE (test 301 MG/DL 70-110 H Perfor med by certified code = GLUBED) 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 [facility] GLUCOSE [id number] 21:37:00 Test Item Value Reference Range Interpretation Comments GLUCOSE BEDSIDE (test 237 MG/DL 70-110 H Perfor med by certified code = GLUBED) 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 GLUCOSE [id number] 17:58:00 Test Item Value Reference Range Interpretation Comments GLUCOSE BEDSIDE (test 207 MG/DL 70-110 H Perfor med by certified code = GLUBED) 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 GLUCOSE [id number] 12:39:00 Test Item Value Reference Range Interpretation Comments GLUCOSE BEDSIDE (test 230 MG/DL 70-110 H Perfor med by certified code = GLUBED) 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 GLUCOSE [id number] 11:34:00 Test Item Value Reference Range Interpretation Comments GLUCOSE BEDSIDE (test 209 MG/DL 70-110 H Perfor med by certified code = GLUBED) 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 BASIC METABOLIC [id number] 08:14:00 Test Item Value Reference Range Interpretation Comments SODIUM (test code = NA) 141 mEq/L 134-147 N POTASSIUM (test code = 3.3 mEq/L 3.4-5.0 L K) CHLORIDE (test code = 100 mEq/L 100-108 N CL) CARBON DIOXIDE (test 27 mEq/l 21-33 N code = CO2) ANION GAP (test code = 18 0-20 N GAP) GLUCOSE (test code = 127 mg/dL 70-110 H GLU) BLOOD UREA NITROGEN 26 mg/dL 7-18 H (test code = BUN) GLOMERULAR FILTRATION 28.4 95-105 L Units of measure = RATE (test code = GFR) ml/mi n/1.73 m2 CREATININE (test code = 2.3 mg/dL 0.6-1.3 H CREAT) CALCIUM (test code = 8.9 mg/dL 8.0-10.5 N CA) CBC W/AUTO [id number] 07:50:00 Test Item Value Reference Range Interpretation Comments WHITE BLOOD CELL (test code = 12.2 x10 3/uL 4.5-11.0 H WBC) RED BLOOD CELL (test code = 4.01 x10 6/uL 3.54-5.02 N RBC) HEMOGLOBIN (test code = HGB) 10.2 g/dL 11.0-15.0 L HEMATOCRIT (test code = HCT) 33.7 % 33.0-45.0 N MEAN CELL VOLUME (test code = 84.0 fL 81.0-99.0 N MCV) MEAN CELL HGB (test code = MCH) 25.4 pg 27.0-33.0 L MEAN CELL HGB CONCETRATION 30.3 g/dL 33.0-37.0 L (test code = MCHC) RED CELL DISTRIBUTION WIDTH CV 14.5 % 11.5-14.5 N (test code = RDW) RED CELL DISTRIBUTION WIDTH SD 44.3 fL 37.0-54.0 N (test code = RDW-SD) PLATELET COUNT (test code = 357 x10 3/uL 150-400 N PLT) MEAN PLATELET VOLUME (test code 12.0 fL 7.0-9.0 H = MPV) NEUTROPHIL % (test code = NT%) 49.5 % 56.0-77.0 L IMMATURE GRANULOCYTE % (test 0.4 % 0.0-2.0 N code = IG%) LYMPHOCYTE % (test code = LY%) 38.3 % 14.0-32.0 H MONOCYTE % (test code = MO%) 11.0 % 4.8-9.0 H EOSINOPHIL % (test code = EO%) 0.2 % 0.3-3.7 L BASOPHIL % (test code = BA%) 0.6 % 0.0-2.0 N NUCLEATED RBC % (test code = 0.0 % 0-0 N NRBC%) NEUTROPHIL # (test code = NT#) 6.03 x10 3/uL 2.0-7.6 N IMMATURE GRANULOCYTE # (test 0.05 x10 3/uL 0.00-0.03 H code = IG#) LYMPHOCYTE # (test code = LY#) 4.67 x10 3/uL 1.0-3.8 H MONOCYTE # (test code = MO#) 1.34 x10 3/uL 0.1-0.8 H EOSINOPHIL # (test code = EO#) 0.02 x10 3/uL 0.0-0.2 N BASOPHIL # (test code = BA#) 0.07 x10 3/uL 0.0-0.2 N NUCLEATED RBC # (test code = 0.00 x10 3/uL 0.0-0.1 N NRBC#) MANUAL DIFF REQUIRED (test code NO = MDIFF) GLUCOSE [id number] 07:35:00 Test Item Value Reference Range Interpretation Comments GLUCOSE BEDSIDE (test 140 MG/DL 70-110 H Perfor med by certified code = GLUBED) 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 GLUCOSE [id number] 20:28:00 Test Item Value Reference Range Interpretation Comments GLUCOSE BEDSIDE (test 118 MG/DL 70-110 H Perfor med by certified code = GLUBED) 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 GLUCOSE [id number] 17:06:00 Test Item Value Reference Range Interpretation Comments GLUCOSE BEDSIDE (test 105 MG/DL 70-110 N Perfor med by certified code = GLUBED) 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 GLUCOSE [id number] 12:03:00 Test Item Value Reference Range Interpretation Comments GLUCOSE BEDSIDE (test 96 MG/DL 70-110 N Perfor med by certified code = GLUBED) 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 CBC W/AUTO [id number] 10:25:00 Test Item Value Reference Range Interpretation Comments WHITE BLOOD CELL 11.4 x10 3/uL 4.5-11.0 H (test code = WBC) RED BLOOD CELL (test 3.90 x10 6/uL 3.54-5.02 N code = RBC) HEMOGLOBIN (test code 9.8 g/dL 11.0-15.0 L = HGB) HEMATOCRIT (test code 32.3 % 33.0-45.0 L = HCT) MEAN CELL VOLUME 82.8 fL 81.0-99.0 N (test code = MCV) MEAN CELL HGB (test 25.1 pg 27.0-33.0 L code = MCH) MEAN CELL HGB 30.3 g/dL 33.0-37.0 L CONCETRATION (test code = MCHC) RED CELL DISTRIBUTION 14.6 % 11.5-14.5 H WIDTH CV (test code = RDW) RED CELL DISTRIBUTION 43.4 fL 37.0-54.0 N WIDTH SD (test code = RDW-SD) PLATELET COUNT (test 310 x10 3/uL 150-400 N code = PLT) MEAN PLATELET VOLUME 11.5 fL 7.0-9.0 H (test code = MPV) NEUTROPHIL % (test 39.8 % 56.0-77.0 L code = NT%) LYMPHOCYTE % (test 46.9 % 14.0-32.0 H code = LY%) NEUTROPHIL # (test 4.54 x10 3/uL 2.0-7.6 N code = NT#) LYMPHOCYTE # (test 5.35 x10 3/uL 1.0-3.8 H code = LY#) MANUAL DIFF REQUIRED NO SLIDE R JAMENABILMONO, (test code = MDIFF) CONSISTE NT WITH AUTO DIFF. IMMATURE GRANULOCYTE 0.6 % 0.0-2.0 N % (test code = IG%) MONOCYTE % (test code 12.0 % 4.8-9.0 H = MO%) EOSINOPHIL % (test 0.2 % 0.3-3.7 L code = EO%) BASOPHIL % (test code 0.5 % 0.0-2.0 N = BA%) NUCLEATED RBC % (test 0.0 % 0-0 N code = NRBC%) IMMATURE GRANULOCYTE 0.07 x10 3/uL 0.00-0.03 H # (test code = IG#) MONOCYTE # (test code 1.37 x10 3/uL 0.1-0.8 H = MO#) EOSINOPHIL # (test 0.02 x10 3/uL 0.0-0.2 N code = EO#) BASOPHIL # (test code 0.06 x10 3/uL 0.0-0.2 N = BA#) NUCLEATED RBC # (test 0.00 x10 3/uL 0.0-0.1 N code = NRBC#) GLUCOSE [id number] 08:15:00 Test Item Value Reference Range Interpretation Comments GLUCOSE BEDSIDE (test 87 MG/DL 70-[address] 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 [facility] BASIC METABOLIC [id number] 08:13:00 Test Item Value Reference Range Interpretation Comments SODIUM (test code = NA) 142 mEq/L 134-147 N POTASSIUM (test code = 3.1 mEq/L 3.4-5.0 L K) CHLORIDE (test code = 101 mEq/L 100-108 CL) CARBON DIOXIDE (test 34 mEq/l 21-33 H code = CO2) ANION GAP (test code = 10 0-20 N GAP) GLUCOSE (test code = 88 mg/dL 70-110 N GLU) BLOOD UREA NITROGEN 36 mg/dL 7-18 H (test code = BUN) GLOMERULAR FILTRATION 25.8 95-105 L Units of measure = RATE (test code = GFR) ml/mi n/1.73 m2 CREATININE (test code = 2.5 mg/dL 0.6-1.3 H CREAT) CALCIUM (test code = 8.7 mg/dL 8.0-10.5 N CA) GLUCOSE [id number] 06:26:00 Test Item Value Reference Range Interpretation Comments GLUCOSE BEDSIDE (test 90 MG/DL 70-110 N Perfor med by certified code = GLUBED) 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 GLUCOSE [id number] 04:43:00 Test Item Value Reference Range Interpretation Comments GLUCOSE BEDSIDE (test 67 MG/DL 70-110 L Perfor med by certified code = GLUBED) 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 GLUCOSE [id number] 20:30:00 Test Item Value Reference Range Interpretation Comments GLUCOSE BEDSIDE (test 62 MG/DL 70-110 L Perfor med by certified code = GLUBED) 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 BASIC METABOLIC [id number] 04:21:00 Test Item Value Reference Range Interpretation Comments SODIUM (test code = NA) 146 mEq/L 134-147 N POTASSIUM (test code = 3.4 mEq/L 3.4-5.0 N K) CHLORIDE (test code = 107 mEq/L 100-108 N CL) CARBON DIOXIDE (test 30 mEq/l 21-33 N code = CO2) ANION GAP (test code = 12 0-20 N GAP) GLUCOSE (test code = 84 mg/dL 70-110 N GLU) BLOOD UREA NITROGEN 34 mg/dL 7-18 H (test code = BUN) GLOMERULAR FILTRATION 19.4 95-105 L Units of measure = RATE (test code = GFR) ml/mi n/1.73 m2 CREATININE (test code = 3.2 mg/dL 0.6-1.3 H CREAT) CALCIUM (test code = 9.1 mg/dL 8.0-10.5 N CA) CBC W/O [id number] 04:04:00 Test Item Value Reference Range Interpretation Comments WHITE BLOOD CELL (test code = 8.6 x10 3/uL 4.5-11.0 N WBC) RED BLOOD CELL (test code = 4.04 x10 6/uL 3.54-5.02 N RBC) HEMOGLOBIN (test code = HGB) 10.4 g/dL 11.0-15.0 L HEMATOCRIT (test code = HCT) 34.1 % 33.0-45.0 N MEAN CELL VOLUME (test code = 84.4 fL 81.0-99.0 MCV) MEAN CELL HGB (test code = MCH) 25.7 pg 27.0-33.0 L MEAN CELL HGB CONCETRATION 30.5 g/dL 33.0-37.0 L (test code = MCHC) RED CELL DISTRIBUTION WIDTH CV 15.1 % 11.5-14.5 H (test code = RDW) RED CELL DISTRIBUTION WIDTH SD 46.1 fL 37.0-54.0 N (test code = RDW-SD) PLATELET COUNT (test code = 251 x10 3/uL 150-400 N PLT) MEAN PLATELET VOLUME (test code 11.3 fL 7.0-9.0 H = MPV) GLUCOSE [id number] 00:49:00 Test Item Value Reference Range Interpretation Comments GLUCOSE BEDSIDE (test 105 MG/DL 70-110 N Perfor med by certified code = GLUBED) 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 [facility] COMPREHENSIVE METABOLIC [id number] 08:10:00 Test Item Value Reference Range Interpretation Comments SODIUM (test code = NA) 145 mEq/L 134-147 N POTASSIUM (test code = 3.5 mEq/L 3.4-5.0 N K) CHLORIDE (test code = 106 mEq/L 100-108 N CL) CARBON DIOXIDE (test 32 mEq/l 21-33 N code = CO2) ANION GAP (test code = 11 0-20 N GAP) GLUCOSE (test code = 96 mg/dL 70-110 GLU) BLOOD UREA NITROGEN 51 mg/dL 7-18 H (test code = BUN) GLOMERULAR FILTRATION 15.9 95-105 L Units of measure = RATE (test code = GFR) ml/mi n/1.73 m2 CREATININE (test code = 3.8 mg/dL 0.6-1.3 H CREAT) TOTAL PROTEIN (test 7.6 g/dL 6.4-8.2 N code = PROT) ALBUMIN (test code = 2.80 g/dL 3.4-5.0 L ALB) CALCIUM (test code = 9.6 mg/dL 8.0-10.5 N CA) BILIRUBIN TOTAL (test 0.20 mg/dL 0.0-1.0 N code = BILT) SGOT/AST (test code = 22 IUnit/L 15-37 N AST) SGPT/ALT (test code = < 7 IUnit/L 30-65 L ALT) ALKALINE PHOSPHATASE 142 IUnit/L 20-125 H TOTAL (test code = ALKP) [id number] 08:10:00 Test Item Value Reference Range Interpretation Comments PHOSPHOROUS (test code = PHOS) 4.5 MG/DL 2.5-4.9 N [id number] 08:10:00 Test Item Value Reference Range Interpretation Comments MAGNESIUM (test code = MAG) 2.32 mg/dL 1.80-2.40 N CALCIUM [id number] 08:10:00 Test Item Value Reference Range Interpretation Comments CALCIUM IONIZED (test code = TOMER) 1.21 MMOL/L 1.12-1.32 N CBC W/AUTO [id number] 07:53:00 Test Item Value Reference Range Interpretation Comments WHITE BLOOD CELL (test code = 12.2 x10 3/uL 4.5-11.0 H WBC) RED BLOOD CELL (test code = 3.88 x10 6/uL 3.54-5.02 N RBC) HEMOGLOBIN (test code = HGB) 10.1 g/dL 11.0-15.0 L HEMATOCRIT (test code = HCT) 31.6 % 33.0-45.0 L MEAN CELL VOLUME (test code = 81.4 fL 81.0-99.0 MCV) MEAN CELL HGB (test code = MCH) 26.0 pg 27.0-33.0 L MEAN CELL HGB CONCETRATION 32.0 g/dL 33.0-37.0 L (test code = MCHC) RED CELL DISTRIBUTION WIDTH CV 15.1 % 11.5-14.5 H (test code = RDW) RED CELL DISTRIBUTION WIDTH SD 44.5 fL 37.0-54.0 N (test code = RDW-SD) PLATELET COUNT (test code = 291 x10 3/uL 150-400 N PLT) MEAN PLATELET VOLUME (test code 11.0 fL 7.0-9.0 H = MPV) NEUTROPHIL % (test code = NT%) 49.7 % 56.0-77.0 L IMMATURE GRANULOCYTE % (test 1.9 % 0.0-2.0 N code = IG%) LYMPHOCYTE % (test code = LY%) 29.4 % 14.0-32.0 N MONOCYTE % (test code = MO%) 18.2 % 4.8-9.0 H EOSINOPHIL % (test code = EO%) 0.3 % 0.3-3.7 N BASOPHIL % (test code = BA%) 0.5 % 0.0-2.0 N NUCLEATED RBC % (test code = 0.0 % 0-0 N NRBC%) NEUTROPHIL # (test code = NT#) 6.06 x10 3/uL 2.0-7.6 N IMMATURE GRANULOCYTE # (test 0.23 x10 3/uL 0.00-0.03 H code = IG#) LYMPHOCYTE # (test code = LY#) 3.58 x10 3/uL 1.0-3.8 N MONOCYTE # (test code = MO#) 2.22 x10 3/uL 0.1-0.8 H EOSINOPHIL # (test code = EO#) 0.04 x10 3/uL 0.0-0.2 N BASOPHIL # (test code = BA#) 0.06 x10 3/uL 0.0-0.2 N NUCLEATED RBC # (test code = 0.00 x10 3/uL 0.0-0.1 N NRBC#) MANUAL DIFF REQUIRED (test code NO = MDIFF) GLUCOSE [id number] 01:53:00 Test Item Value Reference Range Interpretation Comments GLUCOSE BEDSIDE (test 164 MG/DL 70-110 H Perfor med by certified code = GLUBED) 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 GLUCOSE [id number] 08:42:00 Test Item Value Reference Range Interpretation Comments GLUCOSE BEDSIDE (test 148 MG/DL 70-110 H Perfor med by certified code = GLUBED) 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 COMPREHENSIVE METABOLIC [id number] 07:34:00 Test Item Value Reference Range Interpretation Comments SODIUM (test code = NA) 145 mEq/L 134-147 N POTASSIUM (test code = 3.2 mEq/L 3.4-5.0 L K) CHLORIDE (test code = 107 mEq/L 100-108 N CL) CARBON DIOXIDE (test 28 mEq/l 21-33 code = CO2) ANION GAP (test code = 13 0-20 N GAP) GLUCOSE (test code = 189 mg/dL 70-110 H GLU) BLOOD UREA NITROGEN 56 mg/dL 7-18 H (test code = BUN) GLOMERULAR FILTRATION 13.8 95-105 L Units of measure = RATE (test code = GFR) ml/mi n/1.73 m2 CREATININE (test code = 4.3 mg/dL 0.6-1.3 H CREAT) TOTAL PROTEIN (test 6.9 g/dL 6.4-8.2 N code = PROT) ALBUMIN (test code = 2.60 g/dL 3.4-5.0 L ALB) CALCIUM (test code = 9.2 mg/dL 8.0-10.5 N CA) BILIRUBIN TOTAL (test 0.20 mg/dL 0.0-1.0 N code = BILT) SGOT/AST (test code = 16 IUnit/L 15-37 N AST) SGPT/ALT (test code = < 7 IUnit/L 30-65 L ALT) ALKALINE PHOSPHATASE 149 IUnit/L 20-125 H TOTAL (test code = ALKP) [id number] 07:34:00 Test Item Value Reference Range Interpretation Comments PHOSPHOROUS (test code = PHOS) 4.8 MG/DL 2.5-4.9 N [id number] 07:34:00 Test Item Value Reference Range Interpretation Comments MAGNESIUM (test code = MAG) 2.39 mg/dL 1.80-2.40 N CALCIUM [id number] 07:34:00 Test Item Value Reference Range Interpretation Comments CALCIUM IONIZED (test code = TOMER) 1.20 MMOL/L 1.12-1.32 N CBC W/AUTO [id number] 07:14:00 Test Item Value Reference Range Interpretation Comments WHITE BLOOD CELL (test code = 11.9 x10 3/uL 4.5-11.0 H WBC) RED BLOOD CELL (test code = 3.56 x10 6/uL 3.54-5.02 N RBC) HEMOGLOBIN (test code = HGB) 9.2 g/dL 11.0-15.0 L HEMATOCRIT (test code = HCT) 27.6 % 33.0-45.0 L MEAN CELL VOLUME (test code = 77.5 fL 81.0-99.0 L MCV) MEAN CELL HGB (test code = MCH) 25.8 pg 27.0-33.0 L MEAN CELL HGB CONCETRATION 33.3 g/dL 33.0-37.0 N (test code = MCHC) RED CELL DISTRIBUTION WIDTH CV 14.6 % 11.5-14.5 H (test code = RDW) PLATELET COUNT (test code = 262 x10 3/uL 150-400 N PLT) NEUTROPHIL % (test code = NT%) 59.3 % 56.0-77.0 N LYMPHOCYTE % (test code = LY%) 22.5 % 14.0-32.0 N NEUTROPHIL # (test code = NT#) 7.05 x10 3/uL 2.0-7.6 N LYMPHOCYTE # (test code = LY#) 2.68 x10 3/uL 1.0-3.8 N MANUAL DIFF REQUIRED (test code NO = MDIFF) RED CELL DISTRIBUTION WIDTH SD 41.2 fL 37.0-54.0 N (test code = RDW-SD) MEAN PLATELET VOLUME (test code 11.4 fL 7.0-9.0 H = MPV) IMMATURE GRANULOCYTE % (test 1.5 % 0.0-2.0 N code = IG%) MONOCYTE % (test code = MO%) 15.6 % 4.8-9.0 H EOSINOPHIL % (test code = EO%) 0.8 % 0.3-3.7 N BASOPHIL % (test code = BA%) 0.3 % 0.0-2.0 N NUCLEATED RBC % (test code = 0.0 % 0-0 N NRBC%) IMMATURE GRANULOCYTE # (test 0.18 x10 3/uL 0.00-0.03 H code = IG#) MONOCYTE # (test code = MO#) 1.85 x10 3/uL 0.1-0.8 H EOSINOPHIL # (test code = EO#) 0.09 x10 3/uL 0.0-0.2 N BASOPHIL # (test code = BA#) 0.04 x10 3/uL 0.0-0.2 N NUCLEATED RBC # (test code = 0.00 x10 3/uL 0.0-0.1 N NRBC#) GLUCOSE [id number] 06:18:00 Test Item Value Reference Range Interpretation Comments GLUCOSE BEDSIDE (test 176 MG/DL 70-110 H Perfor med by certified code = GLUBED) 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 1 [id number] 00:00:00 [facility] 1980 Sex: F FAX: Laura Trinh MD [phone] [place]: St: ADM FAX: Y J Carlos Gomez MD [phone] Name: HARLEEN MANZANO [facility] : 1980 Age/S: 40/F [address] [place] [address] Unit #: [id number] Loc: G.28 [place] [address] Phys: J Carlos Gomez MD Acct: [id number] Dis Date: Status: ADM IN PHONE #: [phone] Exam Date: 10/15/2021 0608 FAX #: [phone] Reason: INTUBATED/COVID EXAMS: CPT CODE: [id number] XR CHEST 1 V [id number] PROCEDURE INFORMATION: Exam: XR Chest Exam date and time: 10/15/2021 5:41 AM Age: 40 years old Clinical indication: Other: Intubated/covid TECHNIQUE: Imaging protocol: Radiologic exam of the chest. Views: 1 view. COMPARISON: CR XR CHEST 1V 10/14/2021 5:53 AM FINDINGS: Tubes, catheters and devices: Right IJ catheter terminating the cavoatrial junction. Interval removal of the endotracheal and esop hagogastric tubes. Lungs: Low lung volumes. Stable bilateral perihilar fullness. No focal airspace consolidations. Pleural spaces: Unremarkable. No pleural effusion. No pneumothorax. Heart/Mediastinum:Unremarkable. Bones/joints: Unremarkable. IMPRESSION: Mild vascular congestion. No focal airspace con solidations. at 0740 Reported and signed by: Petey Brooks M.D. 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 GLUCOSE [id number] 10:22:00 Test Item Value Reference Range Interpretation Comments GLUCOSE BEDSIDE (test 311 MG/DL 70-110 H Perfor med by certified code = GLUBED) 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 COMPREHENSIVE METABOLIC [id number] 05:53:00 Test Item Value Reference Range Interpretation Comments SODIUM (test code = NA) 139 mEq/L 134-147 N POTASSIUM (test code = 4.1 mEq/L 3.4-5.0 N K) CHLORIDE (test code = 103 mEq/L 100-108 N CL) CARBON DIOXIDE (test 22 mEq/l 21-33 N code = CO2) ANION GAP (test code = 18 0-20 N GAP) GLUCOSE (test code = 401 mg/dL 70-110 H GLU) BLOOD UREA NITROGEN 68 mg/dL 7-18 H (test code = BUN) GLOMERULAR FILTRATION 11.3 95-105 L Units of measure = RATE (test code = GFR) ml/mi n/1.73 m2 CREATININE (test code = 5.1 mg/dL 0.6-1.3 H CREAT) TOTAL PROTEIN (test 6.6 g/dL 6.4-8.2 code = PROT) ALBUMIN (test code = 2.50 g/dL 3.4-5.0 L ALB) CALCIUM (test code = 8.6 mg/dL 8.0-10.5 N CA) BILIRUBIN TOTAL (test 0.20 mg/dL 0.0-1.0 code = BILT) SGOT/AST (test code = 18 IUnit/L 15-37 N AST) SGPT/ALT (test code = < 7 IUnit/L 30-65 L ALT) ALKALINE PHOSPHATASE 153 IUnit/L 20-125 H TOTAL (test code = ALKP) [id number] 05:53:00 Test Item Value Reference Range Interpretation Comments PHOSPHOROUS (test code = PHOS) 5.2 MG/DL 2.5-4.9 H [id number] 05:53:00 Test Item Value Reference Range Interpretation Comments MAGNESIUM (test code = MAG) 2.51 mg/dL 1.80-2.40 H CALCIUM [id number] 05:53:00 Test Item Value Reference Range Interpretation Comments CALCIUM IONIZED (test code = TOMER) 1.18 MMOL/L 1.12-1.32 N CBC W/AUTO [id number] 05:34:00 Test Item Value Reference Range Interpretation Comments WHITE BLOOD CELL (test code = 12.1 x10 3/uL 4.5-11.0 H WBC) RED BLOOD CELL (test code = 3.27 x10 6/uL 3.54-5.02 L RBC) HEMOGLOBIN (test code = HGB) 8.5 g/dL 11.0-15.0 L HEMATOCRIT (test code = HCT) 25.6 % 33.0-45.0 L MEAN CELL VOLUME (test code = 78.3 fL 81.0-99.0 L MCV) MEAN CELL HGB (test code = MCH) 26.0 pg 27.0-33.0 L MEAN CELL HGB CONCETRATION 33.2 g/dL 33.0-37.0 N (test code = MCHC) RED CELL DISTRIBUTION WIDTH CV 14.8 % 11.5-14.5 H (test code = RDW) RED CELL DISTRIBUTION WIDTH SD 42.7 fL 37.0-54.0 N (test code = RDW-SD) PLATELET COUNT (test code = 223 x10 3/uL 150-400 N PLT) MEAN PLATELET VOLUME (test code 11.8 fL 7.0-9.0 H = MPV) NEUTROPHIL % (test code = NT%) 71.5 % 56.0-77.0 N IMMATURE GRANULOCYTE % (test 1.4 % 0.0-2.0 N code = IG%) LYMPHOCYTE % (test code = LY%) 15.0 % 14.0-32.0 N MONOCYTE % (test code = MO%) 11.6 % 4.8-9.0 H EOSINOPHIL % (test code = EO%) 0.3 % 0.3-3.7 N BASOPHIL % (test code = BA%) 0.2 % 0.0-2.0 N NUCLEATED RBC % (test code = 0.0 % 0-0 N NRBC%) NEUTROPHIL # (test code = NT#) 8.63 x10 3/uL 2.0-7.6 H IMMATURE GRANULOCYTE # (test 0.17 x10 3/uL 0.00-0.03 H code = IG#) LYMPHOCYTE # (test code = LY#) 1.81 x10 3/uL 1.0-3.8 N MONOCYTE # (test code = MO#) 1.40 x10 3/uL 0.1-0.8 H EOSINOPHIL # (test code = EO#) 0.04 x10 3/uL 0.0-0.2 N BASOPHIL # (test code = BA#) 0.02 x10 3/uL 0.0-0.2 N NUCLEATED RBC # (test code = 0.00 x10 3/uL 0.0-0.1 N NRBC#) MANUAL DIFF REQUIRED (test code NO = MDIFF) POC ARTERIAL BLOOD [id number] 03:13:00 Test Item Value Reference Range Interpretation Comments POC ARTERIAL BLOOD GAS PH (test 7.376 7.35-7.45 N code = POCPHA) POC ARTERIAL BLOOD GAS PCO2 35.9 mmHg 35.0-45 N (test code = FRPADP6U) POC TCO2 ARTERIAL (test code = 22.2 POCTCO2) POC ARTERIAL BLOOD GAS PO2 (test 93.8 mmHg 80-100.0 N code = POONO0D) POC HCO3 ARTERIAL (test code = 21.1 MMOL/L 22.0-26.0 L [id number]) POC BASE EXCESS (test code = -4.1 MMOL/L -4.0-4.0 L POCBEA) POC O2 SATURATION (test code = 97.2 % 90-100 N POCO2S) FIO2 (test code = FIO2A) 40 % PaO2/FiO2 (test code = [id number]) 234.50 mm/Hg ABG DELIVERY (test code = CARLOS) Adult Vent ABG VENT MODE (test code = AC MODEA) ABG VENT RESP RATE (test code = 18 /MIN RRA) ABG TIDAL VOLUME (test code = 500 ml TVA) ABG PEEP (test code = PEEPA) 5 cmH2O ABG SITE (test code = SITEA) R Radial SINTIA'S TEST (test code = Positive ALLENS) GLUCOSE [id number] 00:36:00 Test Item Value Reference Range Interpretation Comments GLUCOSE BEDSIDE (test 303 MG/DL 70-110 H Perfor med by certified code = GLUBED) 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 1 [id number] 00:00:00 [facility] 1980 Sex: F FAX: Laura Trinh MD [phone] [place]: St: ADM FAX: Y J Carlos Gomez MD [phone] Name: HARLEEN MANZANO [facility] : 1980 Age/S: 40/F [address] [place] [address] Unit #: [id number] Loc: G.28 [place] [address] Phys: J Carlos Gomez MD Acct: [id number] Dis Date: Status: ADM IN PHONE #: [phone] Exam Date: 10/14/2021641 FAX #: [phone] Reason: INTUBATED/COVID EXAMS: CPT CODE: [id number] XR CHEST1 V [id number] PROCEDURE INFORMATION: Exam: XR Chest Exam date and time: 10/14/2021 5:53 AM Age: 40 years old Clinical indication: Other: Intubated/covid TECHNIQUE: Imaging protocol: Radiologic exam of the chest. Views: 1 view. COMPARISON: CR XR CHEST 1V 10/13/2021 5:43 AM FINDINGS: There is no abnormal radiopaque foreign body. The cardiac silhouette is normal. There is no pneumothorax visible. There are prominent bilateral interstitial lung markings. There are opacities in the right lung base. There is an endotracheal tube. Its tip is in the mid trachea. There is a nasogastric tube. Its tip is in the stomach. There is a central line. Its tip is in the region of the superior cavoatrial junction. IMPRESSION: 1. There are prominent bilateral interstitial lung markings. This may be due to pulmonary edema or atypical pneumonitis. 2. There are opacities in the right lung base. This may be due to the alveolar component of pulmonary edema, atelectasis, or pneumonia. at 4605 Reported and signed by: Abdi Bradford M.D. 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 GLUCOSE [id number] 08:30:00 Test Item Value Reference Range Interpretation Comments GLUCOSE BEDSIDE (test 188 MG/DL 70-110 H Perfor med by certified code = GLUBED) 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 COMPREHENSIVE METABOLIC [id number] 06:13:00 Test Item Value Reference Range Interpretation Comments SODIUM (test code = NA) 137 mEq/L 134-147 N POTASSIUM (test code = 3.7 mEq/L 3.4-5.0 N K) CHLORIDE (test code = 108 mEq/L 100-108 N CL) CARBON DIOXIDE (test 23 mEq/l 21-33 N code = CO2) ANION GAP (test code = 10 0-20 N GAP) GLUCOSE (test code = 162 mg/dL 70-110 H GLU) BLOOD UREA NITROGEN 65 mg/dL 7-18 H (test code = BUN) GLOMERULAR FILTRATION 11.6 95-105 L Units of measure = RATE (test code = GFR) ml/mi n/1.73 m2 CREATININE (test code = 5.0 mg/dL 0.6-1.3 H CREAT) TOTAL PROTEIN (test 5.6 g/dL 6.4-8.2 L code = PROT) ALBUMIN (test code = 2.30 g/dL 3.4-5.0 L ALB) CALCIUM (test code = 8.2 mg/dL 8.0-10.5 N CA) BILIRUBIN TOTAL (test 0.30 mg/dL 0.0-1.0 N code = BILT) SGOT/AST (test code = 24 IUnit/L 15-37 N AST) SGPT/ALT (test code = 7 IUnit/L 30-65 L ALT) ALKALINE PHOSPHATASE 152 IUnit/L 20-125 H TOTAL (test code = ALKP) [id number] 06:13:00 Test Item Value Reference Range Interpretation Comments PHOSPHOROUS (test code = PHOS) 4.0 MG/DL 2.5-4.9 [id number] 06:13:00 Test Item Value Reference Range Interpretation Comments MAGNESIUM (test code = MAG) 2.46 mg/dL 1.80-2.40 H VITAMIN [id number] 06:13:00 Test Item Value Reference Range Interpretation Comments VITAMIN B12 (test code = VITB12) 1579 pg/mL 193-986 H CALCIUM [id number] 06:13:00 Test Item Value Reference Range Interpretation Comments CALCIUM IONIZED (test code = TOMER) 1.16 MMOL/L 1.12-1.32 N CORTISOL [id number] 06:13:00 Test Item Value Reference Range Interpretation Comments CORTISOL AM (test 19.35 ug/dL Reference Interval: code = CORTAM) 2mo-13yrs: 2. 4-22.9 ug/dL 14-15yrs( Male): 2.5-22.9 ug/dL 14-15yrs(Female ): 2.5-28.6 ug/dL 16-18yrs(M/F): 2.4-28.6 ug/dLAdults(M/F ) AM: 4.3-22.4 ug/dLAdults(M/F ) PM: 3.1-16.7 ug/dL C REACTIVE [id number] 05:58:00 Test Item Value Reference Range Interpretation Comments C REACTIVE PROTEIN (test code = 116.0 mg/L <10.0 H CRP) CBC W/AUTO [id number] 05:51:00 Test Item Value Reference Range Interpretation Comments WHITE BLOOD CELL (test code = 11.8 x10 3/uL 4.5-11.0 H WBC) RED BLOOD CELL (test code = 2.97 x10 6/uL 3.54-5.02 L RBC) HEMOGLOBIN (test code = HGB) 7.8 g/dL 11.0-15.0 L HEMATOCRIT (test code = HCT) 23.3 % 33.0-45.0 L MEAN CELL VOLUME (test code = 78.5 fL 81.0-99.0 L MCV) MEAN CELL HGB (test code = MCH) 26.3 pg 27.0-33.0 L MEAN CELL HGB CONCETRATION 33.5 g/dL 33.0-37.0 N (test code = MCHC) RED CELL DISTRIBUTION WIDTH CV 14.9 % 11.5-14.5 H (test code = RDW) RED CELL DISTRIBUTION WIDTH SD 42.9 fL 37.0-54.0 N (test code = RDW-SD) PLATELET COUNT (test code = 205 x10 3/uL 150-400 N PLT) MEAN PLATELET VOLUME (test code 11.9 fL 7.0-9.0 H = MPV) NEUTROPHIL % (test code = NT%) 62.4 % 56.0-77.0 N IMMATURE GRANULOCYTE % (test 0.8 % 0.0-2.0 N code = IG%) LYMPHOCYTE % (test code = LY%) 23.4 % 14.0-32.0 N MONOCYTE % (test code = MO%) 12.9 % 4.8-9.0 H EOSINOPHIL % (test code = EO%) 0.3 % 0.3-3.7 N BASOPHIL % (test code = BA%) 0.2 % 0.0-2.0 N NUCLEATED RBC % (test code = 0.0 % 0-0 N NRBC%) NEUTROPHIL # (test code = NT#) 7.39 x10 3/uL 2.0-7.6 N IMMATURE GRANULOCYTE # (test 0.09 x10 3/uL 0.00-0.03 H code = IG#) LYMPHOCYTE # (test code = LY#) 2.77 x10 3/uL 1.0-3.8 N MONOCYTE # (test code = MO#) 1.53 x10 3/uL 0.1-0.8 H EOSINOPHIL # (test code = EO#) 0.03 x10 3/uL 0.0-0.2 N BASOPHIL # (test code = BA#) 0.02 x10 3/uL 0.0-0.2 N NUCLEATED RBC # (test code = 0.00 x10 3/uL 0.0-0.1 N NRBC#) MANUAL DIFF REQUIRED (test code NO = MDIFF) [id number] 05:51:00 Test Item Value Reference Range Interpretation Comments AMMONIA (test code = AMM) < 10 umol/L 11-35 L UA RFLX MICR CULT IF [id number] 04:43:00 Test Item Value Reference Range Interpretation Comments UA COLOR (test code = COLU) YELLOW YEL/STRAW UA APPEARANCE (test code = SL CLOUDY CLEAR APPU) UA GLUCOSE DIPSTICK (test code NEGATIVE NEGATIVE = DGLUU) UA BILIRUBIN DIPSTICK (test NEGATIVE NEGATIVE code = BILU) UA KETONE DIPSTICK (test code = NEGATIVE NEGATIVE KETU) UA SPECIFIC GRAVITY (test code 1.005 1.005-1.030 N = SGU) UA BLOOD DIPSTICK (test code = 1+ NEGATIVE A JOYCELYN) UA PH DIPSTICK (test code = 5.0 5.0-7.0 N CATERINA) UA PROTEIN DIPSTICK (test code NEGATIVE NEGATIVE = PROU) UA UROBILINIOGEN DIPSTICK (test 0.2 mg/dL 0.2-1.0 code = URO) UA NITRITE DIPSTICK (test code NEGATIVE NEGATIVE = BRITNEY) UA LEUKOCYTE ESTERASE DIPSTICK NEGATIVE NEGATIVE (test code = LEUU) UA WBC (test code = WBCU) 10-20 WBC/HPF 0-3 A UA RBC (test code = RBCU) 4-10 RBC/HPF 0-3 UA WBC NO REFLEX (test code = 10-20 WBC/HPF 0-3 A WBCUCL) UA BACTERIA (test code = BACU) TRACE /HPF NONE SEEN UA SQUAMOUS CELLS (test code = 0-5 /HPF NONE SEEN SQU) UA TRANSITIONAL CELLS (test TRACE /HPF NONE SEEN code = TRANU) UA MUCUS (test code = MUCU) TRACE /LPF NONE SEEN UR HCG [id number] 04:33:00 Test Item Value Reference Range Interpretation Comments UR HCG QUAL (test code = HCGQLU) NEGATIVE NEGATIVE POC ARTERIAL BLOOD [id number] 03:24:00 Test Item Value Reference Range Interpretation Comments POC ARTERIAL BLOOD GAS PH (test 7.404 7.35-7.45 N code = POCPHA) POC ARTERIAL BLOOD GAS PCO2 34.8 mmHg 35.0-45 L (test code = [id number]) POC TCO2 ARTERIAL (test code = 22.9 POCTCO2) POC ARTERIAL BLOOD GAS PO2 (test 157.5 mmHg 80-100.0 H code = ASWAG5K) POC HCO3 ARTERIAL (test code = 21.8 MMOL/L 22.0-26.0 L SRFPOO7E) POC BASE EXCESS (test code = -2.9 MMOL/L -4.0-4.0 N POCBEA) POC O2 SATURATION (test code = 99.4 % 90-100 N POCO2S) FIO2 (test code = FIO2A) 40 % PaO2/FiO2 (test code = [id number]) 393.75 mm/Hg ABG DELIVERY (test code = CARLOS) Adult Vent ABG VENT MODE (test code = AC MODEA) ABG VENT RESP RATE (test code = 18 /MIN RRA) ABG TIDAL VOLUME (test code = 500 ml TVA) ABG PEEP (test code = PEEPA) 5 cmH2O ABG SITE (test code = SITEA) R Radial SINTIA'S TEST (test code = Positive ALLENS) GLUCOSE [id number] 01:22:00 Test Item Value Reference Range Interpretation Comments GLUCOSE BEDSIDE (test 113 MG/DL 70-110 H Perfor med by certified code = GLUBED) 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 1 [id number] 00:00[facility]00 [facility] 1980 Sex: F FAX: Laura Trinh MD [phone] [place]: St: ADM FAX: Y J Carlos Gomez MD [phone] Name: HARLEEN MANZANO [facility] : 1980 Age/S: 40/F [address] [place] [address] Unit #: [id number] Loc: G.M328 [place] [address] Phys: J Carlos Gomez MD Acct: [id number] Dis Date: Status: ADM IN PHONE #: [phone] Exam Date: 10/13/2021615 FAX #: [phone] Reason: INTUBATED/COVID EXAMS: CPT CODE: [id number] XR CHEST1 V 17477 PROCEDURE INFORMATION: Exam: XR Chest Exam date and time: 10/13/2021 5:43 AM Age: 40 years old Clinical indication: Other: Intubated/covid TECHNIQUE: Imaging protocol: Radiologic exam of the chest. Views: 1 view. COMPARISON: CR XR CHEST 1V 10/12/2021 5:50 AM FINDINGS: Tubes, catheters and devices: Right jugular line, endotracheal tube, and gastric tube are not significantly changed. Lungs: No change in mild patchy airspace opacities and interstitial infiltrates bilaterally. Pleural spaces: Nopleural effusion. No pneumothorax. Heart/Mediastinum: Heart size is within normal limits. Vasculature is unremarkable. Bones/joints: No acute abnormality. IMPRESSION: Stable chest. at 0658 Reported and signed by: Jimmy Figueroa M.D. CC: Laura Trinh MD; J Carlos Gomez MD Technologist: RT Destiny(R) Trnscrd Date/Time/By: 10/13/2021 (0658) : By: [email or web address] Orig Print D/T: S: 10/13/2021 (0659) PAGE 1 Signed Report- XR FOOT 2 VIEWS [id number] 00:00:00 [facility] JJName: HARLEEN MANZANO : 1980 Sex: F FAX: Deonte Huff MD [place]: St: [facility] FAX: Laura Trinh MD [phone] Name: HARLEEN MANZANO [facility] : 1980Age/S: 40/ [address] [place] [address] Unit #: [id number] Loc: G.M328 [place] [address] Phys: Doente Higginbotham MD Acct: [id number] Dis Date: Status: ADM IN PHONE #: [phone] Exam Date: 10/13/2021 1328 FAX #: [phone] Reason: R/O OM EXAMS: CPT CODE: [id number] XR FOOT 2 [place] [id number] PROCEDURE INFORMATION: Exam: XR Right Foot Exam date and time: 10/13/2021 11:22 AM Age: 40 years old Clinical indication: Condition or disease; Other: Rule out osteomyelitis; Additional info: R/O om; signs and symptomsnot specified. TECHNIQUE: Imaging protocol: Radiologic exam of the Right foot. Views: 1 or 2 views. AP and Lateral COMPARISON: No relevant prior studies available. FINDINGS: Limitations: Bandage and other material external of the patient. Absence of oblique image may limit assessment. Bones/joints: There is no fracture, dislocation or bone destructive lesion. There are mild degenerative changes of the 1st metatarsophalangeal joint. Soft tissues: Soft tissues appear diffusely edematous. No gross subcutaneous gas or radiopaque foreign material. Notes: If there is further concern, follow-up radiographs, CT or MRI may be obtained for complete assessment. PROCEDURE INFORMATION: Exam: XR Left Foot Exam date and time: 10/13/2021 11:22 AM Age: 40 years old Clinical indication: Condition or disease; Other: Rule out osteomyelitis; Additional info: R/O om; signs and symptoms not specified. TECHNIQUE: Imaging protocol: Radiologic exam of the Left foot. Views: 1 or 2 views. AP and Lateral COMPARISON: No relevant prior studies available. FINDINGS: Limitations: Bandage and other material external of the patient. Absence of oblique image may limit assessment. Bones/joints: There isno fracture, dislocation or bone destructive lesion. There are mild degenerative changes of the 1st metatarsophalangeal joint. Soft tissues: The soft tissues are diffusely edematous. No gross subcutaneous gas or radiopaque foreign material. Notes: If there is further concern, follow-up radiographs, CTor PAGE 1 Signed Report (CONTINUED) FAX: Deonte Huff MD [place]: St: [facility] FAX: Laura Trinh MD Name: HARLEEN MANZANO [facility] : 1980 Age/S: 40/F [address] [place] [address] Unit #: [id number] Loc: G.M328 [place] [address] Phys: Deonte Higginbotham MD Acct: [id number] Dis Date: Status: ADM IN PHONE #: [phone] Exam Date: 10/13/2021 1328 FAX #: [phone] Reason: R/O OM EXAMS: CPT CODE: [id number] FOOT [address] [place] [address] <Continued> MRI may be obtained for complete assessment. IMPRESSION: XR Right Foot 1. Soft tissue swelling. 2. No radiographic evidence for osteomyelitis. XR Left Foot 1. Soft tissue swelling. 2. No radiographic evidence for osteomyelitis. El ectronically Signed by Faizan Mares on 10/13/2021 at 1327 Reported and signed by: Mason Mares M.D. 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 [id number] 13:47:00 Test Item Value Reference Range Interpretation Comments [id number] POSITIVE Negative A Note: this e ntry is for (test code = TRACKING purpos es only and [id number]) [facility] See specimen commen ts fororiginal lab oratory and specimen date. 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 HGB [id number] 12:44:00 Test Item Value Reference Range Interpretation Comments HEMOGLOBIN (test code = HGB) 7.9 g/dL 11.0-15.0 L HEMATOCRIT (test code = HCT) 23.2 % 33.0-45.0 L GLUCOSE [id number] 08:43:00 Test Item Value Reference Range Interpretation Comments GLUCOSE BEDSIDE (test 88 MG/DL 70-[address] 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 The test result should be correlated into the clinical context forinte rpretation. UR CREATININE [id number] 07:23:00 Test Item Value Reference Range Interpretation Comments UR CREATININE 113.5 mg/dL The Reference Range and RANDOM (test code Method Per formance = CREATU) specificationsh ave not been establishe d for this fluid. The test resultshould be correlated into the clinical contex t forinterpretati on. POC ARTERIAL BLOOD [id number] 06:28:00 Test Item Value Reference Range Interpretation Comments POC ARTERIAL BLOOD GAS PH (test 7.415 7.35-7.45 N code = POCPHA) POC ARTERIAL BLOOD GAS PCO2 37.0 mmHg 35.0-45 N (test code = VBIAJS9D) POC TCO2 ARTERIAL (test code = 24.8 POCTCO2) POC ARTERIAL BLOOD GAS PO2 (test 75.3 mmHg 80-100.0 L code = YPXRT3W) POC HCO3 ARTERIAL (test code = 23.7 MMOL/L 22.0-26.0 N MKISMP1X) POC BASE EXCESS (test code = -0.9 MMOL/L -4.0-4.0 N POCBEA) POC O2 SATURATION (test code = 95.2 % 90-100 N POCO2S) FIO2 (test code = FIO2A) 30 % PaO2/FiO2 (test code = [id number]) 251.00 mm/Hg ABG DELIVERY (test code = CARLOS) Adult Vent ABG VENT MODE (test code = AC MODEA) ABG VENT RESP RATE (test code = 18 /MIN RRA) ABG TIDAL VOLUME (test code = 500 ml TVA) ABG PEEP (test code = PEEPA) 5 cmH2O ABG SITE (test code = SITEA) R Radial SINTIA'S TEST (test code = Positive ALLENS) COMPREHENSIVE METABOLIC [id number] 05:25:00 Test Item Value Reference Range Interpretation Comments SODIUM (test code = NA) 138 mEq/L 134-147 N POTASSIUM (test code = 3.8 mEq/L 3.4-5.0 N K) CHLORIDE (test code = 106 mEq/L 100-108 N CL) CARBON DIOXIDE (test 25 mEq/l 21-33 N code = CO2) ANION GAP (test code = 11 0-20 N GAP) GLUCOSE (test code = 88 mg/dL 70-110 GLU) BLOOD UREA NITROGEN 54 mg/dL 7-18 H (test code = BUN) GLOMERULAR FILTRATION 12.8 95-105 L Units of measure = RATE (test code = GFR) ml/mi n/1.73 m2 CREATININE (test code = 4.6 mg/dL 0.6-1.3 H CREAT) TOTAL PROTEIN (test 6.0 g/dL 6.4-8.2 L code = PROT) ALBUMIN (test code = 2.50 g/dL 3.4-5.0 L ALB) CALCIUM (test code = 8.3 mg/dL 8.0-10.5 N CA) BILIRUBIN TOTAL (test 0.30 mg/dL 0.0-1.0 N code = BILT) SGOT/AST (test code = 24 IUnit/L 15-37 N AST) SGPT/ALT (test code = 11 IUnit/L 30-65 L ALT) ALKALINE PHOSPHATASE 117 IUnit/L 20-125 N TOTAL (test code = ALKP) [id number] 05:25:00 Test Item Value Reference Range Interpretation Comments PHOSPHOROUS (test code = PHOS) 2.5 MG/DL 2.5-4.9 [id number] 05:25:00 Test Item Value Reference Range Interpretation Comments MAGNESIUM (test code = MAG) 2.53 mg/dL 1.80-2.40 H CALCIUM [id number] 05:25:00 Test Item Value Reference Range Interpretation Comments CALCIUM IONIZED (test code = TOMER) 1.17 MMOL/L 1.12-1.32 N CBC W/AUTO [id number] 05:12:00 Test Item Value Reference Range Interpretation Comments WHITE BLOOD CELL (test code = 12.3 x10 3/uL 4.5-11.0 H WBC) RED BLOOD CELL (test code = 2.84 x10 6/uL 3.54-5.02 L RBC) HEMOGLOBIN (test code = HGB) 7.4 g/dL 11.0-15.0 L HEMATOCRIT (test code = HCT) 22.3 % 33.0-45.0 L MEAN CELL VOLUME (test code = 78.5 fL 81.0-99.0 L MCV) MEAN CELL HGB (test code = MCH) 26.1 pg 27.0-33.0 L MEAN CELL HGB CONCETRATION 33.2 g/dL 33.0-37.0 N (test code = MCHC) RED CELL DISTRIBUTION WIDTH CV 14.6 % 11.5-14.5 H (test code = RDW) RED CELL DISTRIBUTION WIDTH SD 42.1 fL 37.0-54.0 N (test code = RDW-SD) PLATELET COUNT (test code = 199 x10 3/uL 150-400 N PLT) MEAN PLATELET VOLUME (test code 12.0 fL 7.0-9.0 H = MPV) NEUTROPHIL % (test code = NT%) 49.4 % 56.0-77.0 L IMMATURE GRANULOCYTE % (test 0.6 % 0.0-2.0 N code = IG%) LYMPHOCYTE % (test code = LY%) 37.5 % 14.0-32.0 H MONOCYTE % (test code = MO%) 12.2 % 4.8-9.0 H EOSINOPHIL % (test code = EO%) 0.1 % 0.3-3.7 L BASOPHIL % (test code = BA%) 0.2 % 0.0-2.0 N NUCLEATED RBC % (test code = 0.2 % 0-0 H NRBC%) NEUTROPHIL # (test code = NT#) 6.10 x10 3/uL 2.0-7.6 N IMMATURE GRANULOCYTE # (test 0.07 x10 3/uL 0.00-0.03 H code = IG#) LYMPHOCYTE # (test code = LY#) 4.63 x10 3/uL 1.0-3.8 H MONOCYTE # (test code = MO#) 1.50 x10 3/uL 0.1-0.8 H EOSINOPHIL # (test code = EO#) 0.01 x10 3/uL 0.0-0.2 N BASOPHIL # (test code = BA#) 0.03 x10 3/uL 0.0-0.2 N NUCLEATED RBC # (test code = 0.02 x10 3/uL 0.0-0.1 N NRBC#) MANUAL DIFF REQUIRED (test code NO = MDIFF) GLUCOSE [id number] 04:48:00 Test Item Value Reference Range Interpretation Comments GLUCOSE BEDSIDE (test 90 MG/DL 70-110 N Perfor med by certified code = GLUBED) 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 1 [id number] 00:00:00 [facility] JJName: HARLEEN MANZANO : 1980 Sex: F FAX: Laura Trinh MD [phone] [place]: St: [facility] FAX: Y J Carlos Gomez MD [phone] Name: HARLEEN MANZANO [facility] : 1980 Age/S: 40/F [address] [place] [address] Unit #: [id number] Loc: G.M328 [place] [address] Phys: J Carlos Gomez MD Acct: [id number] Dis Date: Status: ADM IN PHONE #: [phone] Exam Date: 10/12/2021622 FAX #: [phone] Reason: INTUBATED/COVID EXAMS: CPT CODE: [id number] XR CHEST1 V 51578 PROCEDURE INFORMATION: Exam: XR Chest Exam date and time: 10/12/2021 5:50 AM Age: 40 years o ld Clinical indication: Device placement; Ett placement (vent status); Additional info: Intubated/covid TECHNIQUE: Imaging protocol: Radiologic exam of the chest. Views: 1 view. COMPARISON: CR XR [id number] 10/11/2021 5:43 AM FINDINGS: Limitations: Portable technique and patient body habitus. Skin fold overlies the left hemithorax creating artifactual lucencies. Tubes, catheters and devices: Endotrachealtube approximately 3.4 cm above the watson. Enteric tube enters the stomach, redirected on itself with tip beyond the field of view. Right central venous catheter tip at the level of cavoatrial junction. EKG leads overlie the chest. Lungs: Lung volumes are low similar to that on prior exam. There are i ndistinct perihilar and infrahilar opacities. Pleural spaces: There is no pneumothorax or gross pleural effusion. Heart/Mediastinum: The cardiomediastinal silhouette is stable. Artifactual lucency paralleling the left mediastinal contours related to skin fold. Bones/joints: Unremarkable. IMPRESSION: Es sentially stable exam. Mid and lower lung zone pulmonary opacities. Edema and pneumonia in the differential. at 0710 Reported and signed by: aMson Mares M.D. 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 BASIC METABOLIC [id number] 07:28:00 Test Item Value Reference Range Interpretation Comments SODIUM (test code = NA) 140 mEq/L 134-147 N POTASSIUM (test code = 3.2 mEq/L 3.4-5.0 L K) CHLORIDE (test code = 106 mEq/L 100-108 N CL) CARBON DIOXIDE (test 24 mEq/l 21-33 N code = CO2) ANION GAP (test code = 14 0-20 N GAP) GLUCOSE (test code = 174 mg/dL 70-110 H GLU) BLOOD UREA NITROGEN 49 mg/dL 7-18 H (test code = BUN) GLOMERULAR FILTRATION 15.4 95-105 L Units of measure = RATE (test code = GFR) ml/mi n/1.73 m2 CREATININE (test code = 3.9 mg/dL 0.6-1.3 H CREAT) CALCIUM (test code = 7.9 mg/dL 8.0-10.5 L CA) [id number] 07:28:00 Test Item Value Reference Range Interpretation Comments PHOSPHOROUS (test code = PHOS) 1.8 MG/DL 2.5-4.9 L [id number] 07:28:00 Test Item Value Reference Range Interpretation Comments LIPASE (test code = LIP) 45 U/L 13-57 N [id number] 07:28:00 Test Item Value Reference Range Interpretation Comments MAGNESIUM (test code = MAG) 2.73 mg/dL 1.80-2.40 H T4 [id number] 07:28:00 Test Item Value Reference Range Interpretation Comments T4 FREE (test code = T4F) 1.0 ng/dL 0.77-1.61 N THYROID STIMULATING [id number] 07:28:00 Test Item Value Reference Range Interpretation Comments THYROID STIMULATING 0.03 0.42-5.47 L Results in HORMONE (test code = TSH) mi lli-International Units/mL [id number] 05:36:00 Test Item Value Reference Range Interpretation Comments AMMONIA (test code = AMM) 20 umol/L 11-35 N PROTHROMBIN [id number] 05:28:00 Test Item Value Reference Range Interpretation Comments PROTHROMBIN TIME 11.6 SECONDS 9.3-12.9 N PATIENT (test code = PTP) INTERNATIONAL NORMAL 1.0 0.8-1.2 N TARGET INR BY RATIO (test code = INDICATIO N Indication INR) INR1. Prophylax is of venous thrombos is 2.0 - 3.0 (orthoped ic surgery), Proph ylaxis of venous throm bosis (other than hig h-risk surgery), Treat ment of Deep Vein Thrombosis/Pulm onary Embolism, Preve ntion of systemic emb olism - Tissue heart va lves, Acute Myocardia l Infarction (to prevent systemic emboli sm), Valvular heart disease, Atrial Fibrillation, Bileaflet mecha nical valve in aortic position.2. Mec hanical prosthetic valv es (high risk), 2 .5 - 3.5 Presence of Lupus Anticoagulant o r Antiphospholipi d Antibodies, Pre vention of systemic emb olism - Acute Myocardia l Infarction (to prevent recurrent infar ct). CBC W/AUTO [id number] 05:28:00 Test Item Value Reference Range Interpretation Comments WHITE BLOOD CELL (test code = 16.1 x10 3/uL 4.5-11.0 H WBC) RED BLOOD CELL (test code = 3.00 x10 6/uL 3.54-5.02 L RBC) HEMOGLOBIN (test code = HGB) 7.9 g/dL 11.0-15.0 L HEMATOCRIT (test code = HCT) 23.5 % 33.0-45.0 L MEAN CELL VOLUME (test code = 78.3 fL 81.0-99.0 L MCV) MEAN CELL HGB (test code = MCH) 26.3 pg 27.0-33.0 L MEAN CELL HGB CONCETRATION 33.6 g/dL 33.0-37.0 N (test code = MCHC) RED CELL DISTRIBUTION WIDTH CV 14.6 % 11.5-14.5 H (test code = RDW) RED CELL DISTRIBUTION WIDTH SD 41.1 fL 37.0-54.0 N (test code = RDW-SD) PLATELET COUNT (test code = 211 x10 3/uL 150-400 N PLT) MEAN PLATELET VOLUME (test code 11.9 fL 7.0-9.0 H = MPV) NEUTROPHIL % (test code = NT%) 57.0 % 56.0-77.0 N IMMATURE GRANULOCYTE % (test 1.1 % 0.0-2.0 N code = IG%) LYMPHOCYTE % (test code = LY%) 31.2 % 14.0-32.0 N MONOCYTE % (test code = MO%) 10.4 % 4.8-9.0 H EOSINOPHIL % (test code = EO%) 0.1 % 0.3-3.7 L BASOPHIL % (test code = BA%) 0.2 % 0.0-2.0 N NUCLEATED RBC % (test code = 0.4 % 0-0 H NRBC%) NEUTROPHIL # (test code = NT#) 9.16 x10 3/uL 2.0-7.6 H IMMATURE GRANULOCYTE # (test 0.18 x10 3/uL 0.00-0.03 H code = IG#) LYMPHOCYTE # (test code = LY#) 5.02 x10 3/uL 1.0-3.8 H MONOCYTE # (test code = MO#) 1.67 x10 3/uL 0.1-0.8 H EOSINOPHIL # (test code = EO#) 0.01 x10 3/uL 0.0-0.2 N BASOPHIL # (test code = BA#) 0.03 x10 3/uL 0.0-0.2 N NUCLEATED RBC # (test code = 0.06 x10 3/uL 0.0-0.1 N NRBC#) MANUAL DIFF REQUIRED (test code NO = MDIFF) POC ARTERIAL BLOOD [id number] 03:37:00 Test Item Value Reference Range Interpretation Comments POC ARTERIAL BLOOD GAS PH (test 7.397 7.35-7.45 N code = POCPHA) POC ARTERIAL BLOOD GAS PCO2 37.6 mmHg 35.0-45 N (test code = AVPRPI1G) POC TCO2 ARTERIAL (test code = 24.3 POCTCO2) POC ARTERIAL BLOOD GAS PO2 (test 150.8 mmHg 80-100.0 H code = KEYAO3V) POC HCO3 ARTERIAL (test code = 23.1 MMOL/L 22.0-26.0 N EOSKFB1K) POC BASE EXCESS (test code = -1.7 MMOL/L -4.0-4.0 N POCBEA) POC O2 SATURATION (test code = 99.3 % 90-100 N POCO2S) FIO2 (test code = FIO2A) 30 % PaO2/FiO2 (test code = [id number]) 502.66 mm/Hg ABG DELIVERY (test code = CARLOS) Adult Vent ABG VENT MODE (test code = AC MODEA) ABG VENT RESP RATE (test code = 18 /MIN RRA) ABG PEEP (test code = PEEPA) 5 cmH2O ABG SITE (test code = SITEA) R Radial SINTIA'S TEST (test code = Positive [facility]) - CT HEAD/BRAIN W/O [id number] 00:00:00 [facility] 1980 Sex: F Name: HARLEEN MANZANO [facility] : 1980 Age/S: 40 / F [address] [place] [address] Unit #: [id number] Loc: [place] [address] Phys: Kermit Casas MD Acct: [id number] Dis Date: Status: ADM IN PHONE#: [phone] Exam Date: 10/11/2021 1608 FAX #: [phone] Reason: encephalopathy EXAMS: CPT CODE: [id number] CT HEAD/BRAIN W/O CONT [id number] PROCEDURE INFORMATION: Exam: CT Head Without Contrast Examdate and time: 10/11/2021 4:08 PM Age: 40 years old Clinical indication: Other: Encephalopathy TECHNIQUE: Imaging protocol: Computed tomography of the head without contrast. Radiation optimization: All CT scans at this facility use at least one of these dose optimization techniques: automated exposure control; mA and/or kV adjustment per patient size (includes targeted exams where dose is matched to clinical indication); or iterative reconstruction. COMPARISON: CT HEAD/BRAIN W/O CONT 10/08/2021 4:10 PM FINDINGS: Tubes, catheters and devices: ET tube and nasogastric tube are noted. Brain: There is mild patchy low attenuation in the cerebral white matter, likely reflecting chronic small vessel ischemic disease. No mass, mass effect, extra-axial fluid collection or hemorrhage is seen. Cerebral ventricles: No ventriculomegaly. Paranasal sinuses: Mild mucosal thickening is present along ethmoid septations and within the maxillary antra bilaterally. There is mild mucosal thickening in the left sphenoidsinus. No fluid levels. Mastoid air cells: Visualized mastoid air cells are well aerated. Bones/joints: Unremarkable. No acute fracture. Soft tissues: Unremarkable. IMPRESSION: No acute intracranial abnormality. No change as compared to a study dated 10/08/2021. at 1624 Reported and signed by: Hollie De La Rosa M.D. CC: Laura Trinh MD; Kermit Casas MD Technologist:CONI Muniz (N)(CT) CTDI: DLP: Trnscb Date/Time: 10/11/2021 (1623) [email or web address] Orig Print D/T: S: 10/11/2021 (8430) PAGE 1 Signed Report- CT ABD PELVIS W/O [id number] 00:00:00 [facility] 1980 Sex: F Name: HARLEEN MANZANO [facility] [place] : 1980 Age/S: 40 / F [address] [place] [address] Unit #: [id number] Loc: [place] [address] Phys: Kermit Casas MD Acct: [id number] Dis Date: Status: ADM IN PHONE#: [phone] Exam Date: 10/11/2021 1604 FAX #: [phone] Reason: small bowel obstruction EXAMS: CPT CODE: [id number] CT ABD PELVIS W/O CONT 33678 PROCEDURE INFORMATION: Exam: CT Abdomen And PelvisWithout Contrast Exam date and time: 10/11/2021 4:03 PM Age: 40 years old Clinical indication: Other: Small bowel obstruction TECHNIQUE: Imaging protocol: Computed tomography of the abdomen and pelvis without contrast. Radiation optimization: All CT scans at this facility use at least one of these doseoptimization techniques: automated exposure control; mA and/or kV adjustment per patient size (includes targeted exams where dose is matched to clinical indication); or iterative reconstruction. Other contrast: Oral, Gastrografin, 10; COMPARISON: US ABDOMEN COMPLETE 10/08/2021 7:02 PM FINDINGS: Tubes, catheters and devices: Nasogastric tube terminates in the distal stomach. Lungs: Small bilateral basilar pleural effusions. Bilateral basilar dependent passive atelectasis. Liver: Normal. No mass. Gallbladder and bile ducts: Normal. No calcified stones. No ductal dilation. Pancreas: Normal. No ductal dilation. Spleen: Normal. No splenomegaly. Adrenal glands: Normal. No mass. Kidneys and ureters: Normal. No hydronephrosis. Stomach and bowel: Normal stomach and duodenum. Normal small bowel. No small bowel obstruction. Normal colon. Appendix: Normal appendix. Intraperitoneal space: Unremarkable. No free air. No significant fluid collection. Vasculature: Mild iliac arterial calcifications. Lymph nodes: Unremarkable. No enlarged lymph nodes. Urinary bladder: Urinary bladder decompressed by [place] catheter. Reproductive: Unremarkable as visualized. Bones/joints: No acute osseous abnormality or aggressive osseous lesion. Old healed fracture deformity of the right proximal femur noted. Soft tissues: Small 2 cm fat-containing umbilical hernia. IMPRESSION: 1. No small- bowel obstruction. 2. Small bilateral basilar pleural effusions. 3. No acute abnormality in the abdomen or pelvis. PAGE 1 Signed Report (CONTINUED) Name: HARLEEN MANZANO [facility] Eliel Jj : 1980 Age/S: 40 / F [address] [place] [address] BlvdUnit #: [id number] Loc: [place] [address] Phys: Kermit Casas MD Acct: [id number] Dis Date: Status:ADM IN PHONE #: [phone] Exam Date: 10/11/2021 1604 FAX #: [phone] Reason: small bowel obstruction EXAMS: CPT CODE: [id number] CT ABD PELVIS W/O CONT 06789 <Continued> Electronically Si gned by Faizan Boston on 10/11/2021 at 1632 Reported and signed by: Mulugeta Boston M.D. CC: Laura Trinh MD; Kermit Casas MD Technologist:CONI Muniz (N)(CT) CTDI: DLP: Trnscb Date/Time: 10/11/2021 (1631) [email or web address] Orig Print D/T: S: 10/11/2021 (598) PAGE 2 Signed Report- XR CHEST 1 [id number] 00:00:00 [facility] 1980 Sex: F FAX: Laura Trinh MD [phone] [place]: St: ADM FAX: J Carlos Franz MD [phone] Name: HARLEEN MANZANO [facility] : 1980 Age/S: 40/F [address] [place] [address] Unit #: [id number] Loc: [address] [place] [address] Phys: J Carlos Gomez MD Acct: [id number] Dis Date: Status: ADM IN PHONE #: [phone] Exam Date: 10/11/2021 1633 FAX #: [phone] Reason: INTUBATED/COVID EXAMS: CPT CODE: [id number] XR CHEST 1 V 38801 PROCEDURE INFORMATION: Exam: XR Chest Exam date and time: 10/11/2021 5:43 AM Age: 40 years old Clinical indication: Pain; Additional info: Intubated/covid TECHNIQUE: Imaging protocol: Radiologicexam of the chest. Views: 1 view. COMPARISON: CR XR CHEST 1V 10/10/2021 8:42 AM FINDINGS: Tubes, catheters and devices: Support devices are stable in position. Lungs: Ill-defined bibasilar infiltrates and diminished lung volumes. Findings may reflect atelectasis, aspiration or pneumonia. Pleural spaces:No pleural effusion. No pneumothorax. Heart/Mediastinum: Heart size is stable. Bones/joints: No acute abnormality. IMPRESSION: 1. Support devices are stable in position. 2. Ill-defined bibasilar infiltrates and diminished lung volumes. Findings may reflect atelectasis, aspiration or pneumonia. at 0640 Reported and signed by: Gunnar Pack M.D. CC: Laura Trinh MD; J Carlos Gomez MD Technologist: Sara Jernigan, RT(R) Trnscrd Date/Time/By: 10/11/2021 (06) : By: [email or web address] Orig Print D/T: S: 10/11/2021 (1630) PAGE 1 Signed Report- US RETROPERITONEAL [id number] 00:00:00 [facility] : 1980 Sex: F Name: HARLEEN MANZANO [facility] [place] : 1980 Age/S: 40 / F [address] [place] [address] Unit #: [id number] Loc: [place] [address] Phys: Laura Trinh MD Acct: [id number] Dis Date: Status: ADM IN PHONE #:[phone] Exam Date: 10/11/2021752 FAX #: [phone] Reason: JAYLEEN EXAMS: CPT CODE: [id number] US RETROPERITONEAL COM [id number] PROCEDURE INFORMATION: Exam: US Retroperitoneal; Complete; Kidneys and Bladder Exam date and time: 10/11/2021 7:19 AM Age: 40 years old Clinical indication: Other: Jayleen TECHNIQUE: Imaging protocol: Real-time ultrasound of the retroperitoneum with image documentation. Complete exam focused on the kidneys and bladder. COMPARISON: No relevant prior studies available. FINDINGS: Right kidney: The right kidney measures 12.9 cm. No stones. No hydronephrosis. Left kidney: Limited visualization left kidney. No stones. No hydronephrosis. Urinary bladder: Unremarkable. IMPRESSION: No acute sonographic finding at 0859 Reported and signed by: Nazario Li M.D. CC: Laura Trinh MD Technologist: Maria Del Rosario Dimas RDMS() Trnscb Date/Time: 10/11/2021 (0859) [email or web address] Orig Print D/T: S: 10/11/2021 (0900) Probe: PAGE 1 Signed ReportAMMONIA 2021-10-10 19:58:00 Test Item Value Reference Range Interpretation Comments AMMONIA (test code = AMM) 21 umol/L 11-35 N LACTIC [id number] 18:51:00 Test Item Value Reference Range Interpretation Comments LACTIC ACID (test code = LACT) 1.1 mmol/L 0.4-1.9 N UA RFLX MICR CULT IF [id number] 18:49:00 Test Item Value Reference Range Interpretation Comments UA COLOR (test code = COLU) YELLOW YEL/STRAW UA APPEARANCE (test code = CLOUDY CLEAR A APPU) UA GLUCOSE DIPSTICK (test code 2+ NEGATIVE A = DGLUU) UA BILIRUBIN DIPSTICK (test NEGATIVE NEGATIVE code = BILU) UA KETONE DIPSTICK (test code = TRACE NEGATIVE A KETU) UA SPECIFIC GRAVITY (test code 1.009 1.005-1.030 N = SGU) UA BLOOD DIPSTICK (test code = 2+ NEGATIVE A JOYCELYN) UA PH DIPSTICK (test code = 5.0 5.0-7.0 N CATERINA) UA PROTEIN DIPSTICK (test code 1+ NEGATIVE A = PROU) UA UROBILINIOGEN DIPSTICK (test 0.2 mg/dL 0.2-1.0 code = URO) UA NITRITE DIPSTICK (test code NEGATIVE NEGATIVE = BRITNEY) UA LEUKOCYTE ESTERASE DIPSTICK 3+ NEGATIVE A (test code = LEUU) UA WBC (test code = WBCU) 21-50 WBC/HPF 0-3 A UA RBC (test code = RBCU) 21-50 RBC/HPF 0-3 UA WBC NO REFLEX (test code = 21-50 WBC/HPF 0-3 A WBCUCL) UA BACTERIA (test code = BACU) 1+ /HPF NONE SEEN A UA SQUAMOUS CELLS (test code = 0-5 /HPF NONE SEEN SQU) UA MUCUS (test code = MUCU) TRACE /LPF NONE SEEN Cath type: Temporary/indwellingIN date: 10/08/21IN time: 2143Elapse time: 43 Hrs 05 MinsIndication for culture: Temperature > 100.4 FSpecimen Description: INDWELLING CATH ([place])Cath Status: Under 72 hoursGLUCOSE [id number] 17:37:00 Test Item Value Reference Range Interpretation Comments GLUCOSE BEDSIDE (test 233 MG/DL 70-110 H Perfor med by certified code = GLUBED) 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 [facility] RENAL FUNCTION [id number] 16:09:00 Test Item Value Reference Range Interpretation Comments SODIUM (test code = NA) 139 mEq/L 134-147 N POTASSIUM (test code = 3.2 mEq/L 3.4-5.0 L K) CHLORIDE (test code = 106 mEq/L 100-108 N CL) CARBON DIOXIDE (test 24 mEq/l 21-33 N code = CO2) ANION GAP (test code = 12 0-20 N GAP) GLUCOSE (test code = 242 mg/dL 70-110 H GLU) BLOOD UREA NITROGEN 47 mg/dL 7-18 H (test code = BUN) GLOMERULAR FILTRATION 16.9 95-105 L Units of measure = RATE (test code = GFR) ml/mi n/1.73 m2 CREATININE (test code = 3.6 mg/dL 0.6-1.3 H CREAT) ALBUMIN (test code = 2.80 g/dL 3.4-5.0 L ALB) CALCIUM (test code = CA) 8.0 mg/dL 8.0-10.5 N PHOSPHOROUS (test code = 2.1 MG/DL 2.5-4.9 L PHOS) COMMENTS: Every 6 hours until anion gap </= 12 mEq/L, then every morning [id number] 16:09:00 Test Item Value Reference Range Interpretation Comments MAGNESIUM (test code = MAG) 2.63 mg/dL 1.80-2.40 H COMMENTS: Every 6 hours until anion gap </= 12 mEq/L, then every morning GLUCOSE [id number] 14:46:00 Test Item Value Reference Range Interpretation Comments GLUCOSE BEDSIDE (test 265 MG/DL 70-110 H Perfor med by certified code = GLUBED) 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 [facility] CBC W/AUTO [id number] 05:36:00 Test Item Value Reference Range Interpretation Comments WHITE BLOOD CELL (test code = 16.6 x10 3/uL 4.5-11.0 H WBC) RED BLOOD CELL (test code = 3.06 x10 6/uL 3.54-5.02 L RBC) HEMOGLOBIN (test code = HGB) 8.1 g/dL 11.0-15.0 L HEMATOCRIT (test code = HCT) 23.4 % 33.0-45.0 L MEAN CELL VOLUME (test code = 76.5 fL 81.0-99.0 L MCV) MEAN CELL HGB (test code = 26.5 pg 27.0-33.0 L MCH) MEAN CELL HGB CONCETRATION 34.6 g/dL 33.0-37.0 N (test code = MCHC) RED CELL DISTRIBUTION WIDTH CV 14.0 % 11.5-14.5 N (test code = RDW) RED CELL DISTRIBUTION WIDTH SD 39.4 fL 37.0-54.0 N (test code = RDW-SD) PLATELET COUNT (test code = 224 x10 3/uL 150-400 N PLT) MEAN PLATELET VOLUME (test 11.9 fL 7.0-9.0 H code = MPV) NEUTROPHIL % (test code = NT%) 74.4 % 56.0-77.0 N IMMATURE GRANULOCYTE % (test 2.4 % 0.0-2.0 H code = IG%) LYMPHOCYTE % (test code = LY%) 12.1 % 14.0-32.0 L MONOCYTE % (test code = MO%) 11.0 % 4.8-9.0 H EOSINOPHIL % (test code = EO%) 0.0 % 0.3-3.7 L BASOPHIL % (test code = BA%) 0.1 % 0.0-2.0 N NUCLEATED RBC % (test code = 0.7 % 0-0 H NRBC%) NEUTROPHIL # (test code = NT#) 12.34 x10 3/uL 2.0-7.6 H IMMATURE GRANULOCYTE # (test 0.40 x10 3/uL 0.00-0.03 H code = IG#) LYMPHOCYTE # (test code = LY#) 2.01 x10 3/uL 1.0-3.8 N MONOCYTE # (test code = MO#) 1.83 x10 3/uL 0.1-0.8 H EOSINOPHIL # (test code = EO#) 0.00 x10 3/uL 0.0-0.2 N BASOPHIL # (test code = BA#) 0.02 x10 3/uL 0.0-0.2 N NUCLEATED RBC # (test code = 0.12 x10 3/uL 0.0-0.1 H NRBC#) MANUAL DIFF REQUIRED (test NO code = MDIFF) RENAL FUNCTION [id number] 05:07:00 Test Item Value Reference Range Interpretation Comments SODIUM (test code = NA) 139 mEq/L 134-147 N POTASSIUM (test code = 3.9 mEq/L 3.4-5.0 N K) CHLORIDE (test code = 107 mEq/L 100-108 N CL) CARBON DIOXIDE (test 24 mEq/l 21-33 N code = CO2) ANION GAP (test code = 12 0-20 N GAP) GLUCOSE (test code = 266 mg/dL 70-110 H GLU) BLOOD UREA NITROGEN 45 mg/dL 7-18 H (test code = BUN) GLOMERULAR FILTRATION 18.7 95-105 L Units of measure = RATE (test code = GFR) ml/mi n/1.73 m2 CREATININE (test code = 3.3 mg/dL 0.6-1.3 H CREAT) ALBUMIN (test code = 2.30 g/dL 3.4-5.0 L ALB) CALCIUM (test code = CA) 8.1 mg/dL 8.0-10.5 N PHOSPHOROUS (test code = 2.2 MG/DL 2.5-4.9 L PHOS) COMMENTS: Every 6 hours until anion gap </= 12 mEq/L, then every morning [id number] 05:07:00 Test Item Value Reference Range Interpretation Comments MAGNESIUM (test code = MAG) 1.84 mg/dL 1.80-2.40 N COMMENTS: Every 6 hours until anion gap </= 12 mEq/L, then every morning GLUCOSE [id number] 05:01:00 Test Item Value Reference Range Interpretation Comments GLUCOSE BEDSIDE (test 263 MG/DL 70-110 H Perfor med by certified code = GLUBED) 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 POC ARTERIAL BLOOD [id number] 04:22:00 Test Item Value Reference Range Interpretation Comments POC ARTERIAL BLOOD GAS PH (test 7.353 7.35-7.45 N code = POCPHA) POC ARTERIAL BLOOD GAS PCO2 42.3 mmHg 35.0-45 N (test code = [id number]) POC TCO2 ARTERIAL (test code = 24.8 POCTCO2) POC ARTERIAL BLOOD GAS PO2 (test 188.3 mmHg 80-100.0 H code = BIPJC0G) POC HCO3 ARTERIAL (test code = 23.5 MMOL/L 22.0-26.0 N [id number]) POC BASE EXCESS (test code = -2.0 MMOL/L -4.0-4.0 N POCBEA) POC O2 SATURATION (test code = 99.6 % 90-100 N POCO2S) FIO2 (test code = FIO2A) 35 % PaO2/FiO2 (test code = [id number]) 538.00 mm/Hg ABG DELIVERY (test code = CARLOS) Adult Vent ABG VENT MODE (test code = AC MODEA) ABG VENT RESP RATE (test code = 18 /MIN RRA) ABG TIDAL VOLUME (test code = 500 ml TVA) ABG PEEP (test code = PEEPA) 5 cmH2O ABG SITE (test code = SITEA) R Radial SINTIA'S TEST (test code = Negative ALLENS) RENAL FUNCTION [id number] 00:37:00 Test Item Value Reference Range Interpretation Comments SODIUM (test code = NA) 137 mEq/L 134-147 N POTASSIUM (test code = 3.7 mEq/L 3.4-5.0 N K) CHLORIDE (test code = 105 mEq/L 100-108 N CL) CARBON DIOXIDE (test 25 mEq/l 21-33 N code = CO2) ANION GAP (test code = 11 0-20 N GAP) GLUCOSE (test code = 302 mg/dL 70-110 H GLU) BLOOD UREA NITROGEN 44 mg/dL 7-18 H (test code = BUN) GLOMERULAR FILTRATION 18.7 95-105 L Units of measure = RATE (test code = GFR) ml/mi n/1.73 m2 CREATININE (test code = 3.3 mg/dL 0.6-1.3 H CREAT) ALBUMIN (test code = 2.40 g/dL 3.4-5.0 L ALB) CALCIUM (test code = CA) 8.1 mg/dL 8.0-10.5 N PHOSPHOROUS (test code = 1.3 MG/DL 2.5-4.9 L PHOS) COMMENTS: Every 6 hours until anion gap </= 12 mEq/L, then every morning [id number] 00:37:00 Test Item Value Reference Range Interpretation Comments MAGNESIUM (test code = MAG) 1.90 mg/dL 1.80-2.40 N COMMENTS: Every 6 hours until anion gap </= 12 mEq/L, then every morning- XR CHEST 1 [id number] 00:00:00 [facility] 1980 Sex: F FAX: Greg Mallory MD [place]: St: ADM FAX: James Cruz MD [phone] Name: HARLEEN MANZANO [facility] [place] : 1980 Age/S: 40/F [address] [place] [address] Unit #: [id number] Loc: G.M328 [place] [address] Phys: Greg Araiza MD Acct: [id number] Dis Date: Status: ADM IN PHONE #: [phone] Exam Date: 10/10/2021 0857 FAX #: [phone] Reason: Intubated EXAMS: CPT CODE: [id number] XR CHEST 1 V 55390 PROCEDURE INFORMATION: Exam: XR Chest Exam date and time: 10/10/2021 8:42 AM Age: 40 years old Clinical indication: Other: Intubated TECHNIQUE: Imaging protocol: Radiologic exam of the chest. Views: 1 view. COMPARISON: CR XR CHEST 1V 10/08/2021 9:20 PM FINDINGS: Tubes, catheters and devices: Endotracheal tube, nasogastric tube and right IJ catheter remain in place Lungs: Lungs are slightly low volume. No definite consolidation allowing for technique. Pleural spaces: Unremarkable. No pleural effusion. No pneumot horax. Heart/Mediastinum: Heart size is within normal limits. Vasculature is unremarkable. Bones/joints: Unremarkable. IMPRESSION: Stable radiographic appearance of the chest. at 0916 Reported and signed by: Nazario Li M.D. CC: Greg Mallory MD; James Teran MD Technologist: RT Prakash(R) Trnscrd Date/Time/By: 10/10/2021 (915) : By: [email or web address] Orig Print D/T: S: 10/10/2021 (16) PAGE 1 Signed ReportRENAL FUNCTION [id number] 20:16:00 Test Item Value Reference Range Interpretation Comments SODIUM (test code = NA) 138 mEq/L 134-147 N POTASSIUM (test code = 3.5 mEq/L 3.4-5.0 N K) CHLORIDE (test code = 105 mEq/L 100-108 N CL) CARBON DIOXIDE (test 25 mEq/l 21-33 N code = CO2) ANION GAP (test code = 11 0-20 N GAP) GLUCOSE (test code = 347 mg/dL 70-110 H GLU) BLOOD UREA NITROGEN 46 mg/dL 7-18 H (test code = BUN) GLOMERULAR FILTRATION 19.4 95-105 L Units of measure = RATE (test code = GFR) ml/mi n/1.73 m2 CREATININE (test code = 3.2 mg/dL 0.6-1.3 H CREAT) ALBUMIN (test code = 2.60 g/dL 3.4-5.0 L ALB) CALCIUM (test code = CA) 8.4 mg/dL 8.0-10.5 N PHOSPHOROUS (test code = 1.6 MG/DL 2.5-4.9 L PHOS) COMMENTS: Every 6 hours until anion gap </= 12 mEq/L, then every morning [id number] 20:16:00 Test Item Value Reference Range Interpretation Comments MAGNESIUM (test code = MAG) 1.94 mg/dL 1.80-2.40 COMMENTS: Every 6 hours until anion gap </= 12 mEq/L, then every morning GLUCOSE [id number] 17:41:00 Test Item Value Reference Range Interpretation Comments GLUCOSE BEDSIDE (test 334 MG/DL 70-110 H Perfor med by certified code = GLUBED) 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 RENAL FUNCTION [id number] 14:18:00 Test Item Value Reference Range Interpretation Comments SODIUM (test code = NA) 137 mEq/L 134-147 N POTASSIUM (test code = 3.0 mEq/L 3.4-5.0 L K) CHLORIDE (test code = 104 mEq/L 100-108 N CL) CARBON DIOXIDE (test 22 mEq/l 21-33 N code = CO2) ANION GAP (test code = 14 0-20 N GAP) GLUCOSE (test code = 441 mg/dL 70-110 H GLU) BLOOD UREA NITROGEN 48 mg/dL 7-18 H (test code = BUN) GLOMERULAR FILTRATION 18.1 95-105 L Units of measure = RATE (test code = GFR) ml/mi n/1.73 m2 CREATININE (test code = 3.4 mg/dL 0.6-1.3 H CREAT) ALBUMIN (test code = 2.50 g/dL 3.4-5.0 L ALB) CALCIUM (test code = CA) 8.6 mg/dL 8.0-10.5 N PHOSPHOROUS (test code = 0.7 MG/DL 2.5-4.9 L PHOS) COMMENTS: Every 6 hours until anion gap </= 12 mEq/L, then every morning [id number] 14:18:00 Test Item Value Reference Range Interpretation Comments MAGNESIUM (test code = MAG) 1.54 mg/dL 1.80-2.40 L COMMENTS: Every 6 hours until anion gap </= 12 mEq/L, then every morning GLUCOSE [id number] 13:08:00 Test Item Value Reference Range Interpretation Comments GLUCOSE BEDSIDE (test 398 MG/DL 70-110 H Perfor med by certified code = GLUBED) 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 [id number] 08:29:00 Test Item Value Reference Range Interpretation Comments HGBA1C% (test code = HGBA1C%) > 14.0 %A1C 4.8-6.0 H RENAL FUNCTION [id number] 07:03:00 Test Item Value Reference Range Interpretation Comments SODIUM (test code = NA) 137 mEq/L 134-147 POTASSIUM (test code = 3.0 mEq/L 3.4-5.0 L K) CHLORIDE (test code = 104 mEq/L 100-108 CL) CARBON DIOXIDE (test 18 mEq/l 21-33 L code = CO2) ANION GAP (test code = 18 0-20 N GAP) GLUCOSE (test code = 687 mg/dL 70-110 HH Critica l result GLU) called to TRU LÓPEZ/Gee Hall GEliasLAB.LS at 065 8 10/09/21Nurse gee torres back resut and tech confirmed it's correct? YES BLOOD UREA NITROGEN 47 mg/dL 7-18 H (test code = BUN) GLOMERULAR FILTRATION 19.4 95-105 L Units of measure = RATE (test code = GFR) ml/mi n/1.73 m2 CREATININE (test code = 3.2 mg/dL 0.6-1.3 H CREAT) ALBUMIN (test code = 2.40 g/dL 3.4-5.0 L ALB) CALCIUM (test code = 8.3 mg/dL 8.0-10.5 N CA) PHOSPHOROUS (test code 1.3 MG/DL 2.5-4.9 L = PHOS) COMMENTS: Every 6 hours until anion gap </= 12 mEq/L, then every morning [id number] 07:03:00 Test Item Value Reference Range Interpretation Comments MAGNESIUM (test code = MAG) 1.65 mg/dL 1.80-2.40 L COMMENTS: Every 6 hours until anion gap </= 12 mEq/L, then every morning GLUCOSE [id number] 06:26:00 Test Item Value Reference Range Interpretation Comments GLUCOSE BEDSIDE > 600 MG/DL 70-110 H Performed by certified (test code = GLUBED) operato r at [facility] GLUCOSE [id number] 06:18:00 Test Item Value Reference Range Interpretation Comments GLUCOSE BEDSIDE > 600 MG/DL 70-110 H Performed by certified (test code = GLUBED) operato r at [facility] GLUCOSE [id number] 06:18:00 Test Item Value Reference Range Interpretation Comments GLUCOSE BEDSIDE > 600 MG/DL 70-110 H Performed by certified (test code = GLUBED) operato r at [facility] GLUCOSE [id number] 06:18:00 Test Item Value Reference Range Interpretation Comments GLUCOSE BEDSIDE > 600 MG/DL 70-110 H Performed by certified (test code = GLUBED) operato r at [facility] GLUCOSE [id number] 06:18:00 Test Item Value Reference Range Interpretation Comments GLUCOSE BEDSIDE > 600 MG/DL 70-110 H Performed by certified (test code = GLUBED) operato r at [facility] GLUCOSE [id number] 06:18:00 Test Item Value Reference Range Interpretation Comments GLUCOSE BEDSIDE > 600 MG/DL 70-110 H Performed by certified (test code = GLUBED) operato r at [facility] POC ARTERIAL BLOOD [id number] 04:05:00 Test Item Value Reference Range Interpretation Comments POC ARTERIAL BLOOD GAS PH (test 7.223 7.35-7.45 LL code = POCPHA) POC ARTERIAL BLOOD GAS PCO2 29.3 mmHg 35.0-45 LL (test code = BDNTPW7D) POC TCO2 ARTERIAL (test code = 13.0 POCTCO2) POC ARTERIAL BLOOD GAS PO2 (test 217.6 mmHg 80-100.0 HH code = BGXGF1L) POC HCO3 ARTERIAL (test code = 12.1 MMOL/L 22.0-26.0 LL HVGQZA5N) POC BASE EXCESS (test code = -15.6 MMOL/L -4.0-4.0 L POCBEA) POC O2 SATURATION (test code = 99.6 % 90-100 N POCO2S) FIO2 (test code = FIO2A) 40 % PaO2/FiO2 (test code = GCH1TLM1) 544.00 mm/Hg ABG DELIVERY (test code = CARLOS) Adult Vent ABG VENT MODE (test code = AC MODEA) ABG VENT RESP RATE (test code = 18 /MIN RRA) ABG TIDAL VOLUME (test code = 500 ml TVA) ABG PEEP (test code = PEEPA) 5 cmH2O ABG SITE (test code = SITEA) R Radial SINTIA'S TEST (test code = Positive ALLENS) COMPREHENSIVE METABOLIC [id number] 22:09:00 Test Item Value Reference Range Interpretation Comments SODIUM (test code = 130 mEq/L 134-147 L NA) POTASSIUM (test 4.3 mEq/L 3.4-5.0 N code = K) CHLORIDE (test code 99 mEq/L 100-108 L = CL) CARBON DIOXIDE < 10 mEq/l 21-33 L (test code = CO2) ANION GAP (test TEST NOT 0-20 NOT CALCULAT ED DUE code = GAP) PERFORMED TO CO2<10 GLUCOSE (test code 903 mg/dL 70-110 HH Critical result = GLU) called to Sheldon NELSON G.LAB.UN at 220 7 10/08/21Nurse r ead back resut and tech confirmed it's correct? Y BLOOD UREA NITROGEN 40 mg/dL 7-18 H (test code = BUN) GLOMERULAR 22.6 95-105 L Units of measur e = FILTRATION RATE ml/min/1.73 m2 (test code = GFR) CREATININE (test 2.8 mg/dL 0.6-1.3 H code = CREAT) TOTAL PROTEIN (test 6.7 g/dL 6.4-8.2 N code = PROT) ALBUMIN (test code 2.50 g/dL 3.4-5.0 L = ALB) CALCIUM (test code 8.5 mg/dL 8.0-10.5 N = CA) BILIRUBIN TOTAL 0.60 mg/dL 0.0-1.0 N (test code = BILT) SGOT/AST (test code 29 IUnit/L 15-37 N = AST) SGPT/ALT (test code 15 IUnit/L 30-65 L = ALT) ALKALINE 126 IUnit/L 20-125 H PHOSPHATASE TOTAL (test code = ALKP) [id number] 22:09:00 Test Item Value Reference Range Interpretation Comments PHOSPHOROUS (test code = PHOS) 7.1 MG/DL 2.5-4.9 H [id number] 22:09:00 Test Item Value Reference Range Interpretation Comments MAGNESIUM (test code = MAG) 2.02 mg/dL 1.80-2.40 N CBC W/AUTO [id number] 22:01:00 Test Item Value Reference Range Interpretation Comments WHITE BLOOD CELL 22.6 x10 3/uL 4.5-11.0 H (test code = WBC) RED BLOOD CELL (test 4.15 x10 6/uL 3.54-5.02 N code = RBC) HEMOGLOBIN (test code 10.9 g/dL 11.0-15.0 L = HGB) HEMATOCRIT (test code 35.7 % 33.0-45.0 N = HCT) MEAN CELL VOLUME 86.0 fL 81.0-99.0 N (test code = MCV) MEAN CELL HGB (test 26.3 pg 27.0-33.0 L code = MCH) MEAN CELL HGB 30.5 g/dL 33.0-37.0 L CONCETRATION (test code = MCHC) RED CELL DISTRIBUTION 14.4 % 11.5-14.5 N WIDTH CV (test code = RDW) RED CELL DISTRIBUTION 45.2 fL 37.0-54.0 N WIDTH SD (test code = RDW-SD) PLATELET COUNT (test 315 x10 3/uL 150-400 N code = PLT) MEAN PLATELET VOLUME 12.3 fL 7.0-9.0 H (test code = MPV) NEUTROPHIL % (test 52.6 % 56.0-77.0 L code = NT%) LYMPHOCYTE % (test 10.5 % 14.0-32.0 L code = LY%) NEUTROPHIL # (test 11.89 x10 3/uL 2.0-7.6 H code = NT#) LYMPHOCYTE # (test 2.37 x10 3/uL 1.0-3.8 N code = LY#) MANUAL DIFF REQUIRED NO SLIDE R EVIEWED, (test code = MDIFF) CONSISTE NT WITH AUTO DIFF. IMMATURE GRANULOCYTE 2.7 % 0.0-2.0 H % (test code = IG%) MONOCYTE % (test code 3.6 % 4.8-9.0 L = MO%) EOSINOPHIL % (test 30.4 % 0.3-3.7 H code = EO%) BASOPHIL % (test code 0.2 % 0.0-2.0 N = BA%) NUCLEATED RBC % (test 0.1 % 0-0 H code = NRBC%) IMMATURE GRANULOCYTE 0.60 x10 3/uL 0.00-0.03 H # (test code = IG#) MONOCYTE # (test code 0.82 x10 3/uL 0.1-0.8 H = MO#) EOSINOPHIL # (test 6.87 x10 3/uL 0.0-0.2 H code = EO#) BASOPHIL # (test code 0.04 x10 3/uL 0.0-0.2 N = BA#) NUCLEATED RBC # (test 0.02 x10 3/uL 0.0-0.1 N code = NRBC#) LACTIC [id number] 21:47:00 Test Item Value Reference Range Interpretation Comments LACTIC ACID (test code = LACT) 1.3 mmol/L 0.4-1.9 N - US ABDOMEN [id number] 20:27:00 [facility] 1980 Sex: F Name: HARLEEN MANZANO [facility] : 1980 Age/S: 40 / F [id number] [address] Unit #: [id number] Loc: [place] [address] Phys: Chuy Vega MD Acct: [id number] Dis Date: Status: DEP ER PHONE #: [phone] Exam Date: 10/08/20212022 FAX #: Reason: Abdominal pain, elevated lipase, AMS EXAMS: CPT: [id number] US ABDOMEN COMPLETE 85596 EXAMINATION: - US ABDOMEN COMPLETE INDICATION: Abdominal pain, elevated lipase, AMS COMPARISON: Ultrasound abdomen June 02, 2011 LOCATION: H68 TECHNIQUE: Grayscale and Doppler sonographic images were obtained of the abdomen. FINDINGS: Exam is significantly limited by body habitus and bowel gas. Liver is unremarkable in appearance. Common bile duct measures 0.4 cm in caliber where visualized. No gallstones. Gallbladder wall is normal in thickness. No pericholecystic fluid. Spleen measures 10.8 cm. Right kidney measures 11.7 x 6.6 x 5.8 cm. Normal cortical echogenicity. Normal cortical thickness. No hydronephrosis. Left kidney measures 11.7 x 6.6 x 5.9 cm. Normal cortical echogenicity. Normal cortical thickness. No hydronephrosis. Pancreas, aorta, and IVC are not well seen due to limitations of exam. IMPRESSION: Significantly limited exam. No abnormalities were seen. at 2026 Reported and signed by: Michael Justice M.D. CC: Chuy Vega MD Technologist: Special Needs Child Caregiver Trnscb Date/Time: 10/08/2021 (2026) [email or web address] PAGE 1 Signed Report Name: HARLEEN MANZANO [facility] : 1980 Age/S: 40 / F [id number] [address] Unit #: [id number] Loc: [place] [address] Phys: Chuy Vega MD Acct: [id number] Dis Date: Status: DEP ER PHONE #: [phone] Exam Date: 10/08/20212022 FAX #: Reason: Abdominal pain, elevated lipase, AMS EXAMS: CPT: [id number] US ABDOMEN COMPLETE 25382 (Continued) Orig Print D/T: S: 10/08/2021 (2030) Probe: PAGE 2 Signed ReportBASIC METABOLIC [id number] 18:34:00 Test Item Value Reference Range Interpretation Comments SODIUM (test code = NA) 136 mmol/L 134-147 N POTASSIUM (test code = K) 5.7 mmol/L 3.4-5.0 H CHLORIDE (test code = CL) 100 mmol/L 100-108 N CARBON DIOXIDE (test code = 9 mmol/L 21-32 LL CO2) ANION GAP (test code = GAP) 27.0 GAP calc 4.0-15.0 H GLUCOSE (test code = GLU) 1043 MG/DL 70-110 HH BLOOD UREA NITROGEN (test code 41 MG/DL 7-18 H = BUN) GLOMERULAR FILTRATION RATE 27 estGFR >60 L (test code = GFR) CREATININE (test code = CREAT) 2.5 MG/DL 0.6-1.0 H CALCIUM (test code = CA) 8.8 MG/DL 8.5-10.1 N CREATINE KINASE (CK)2021-10-08 18:34:00 Test Item Value Reference Range Interpretation Comments CREATINE KINASE (CK) (test code = 197 Unit/L 26-192 H CK) Last Dose Date: 10/08/21 Dose Time: [id number] 18:34:00 Test Item Value Reference Range Interpretation Comments ACETAMINOPHEN (test code = ACET) < 2.0 mcG/ML 10.0-30.0 L Last Dose Date: 10/08/21 Dose Time: 1408VENOUS BLOOD [id number] 17:58:00 Test Item Value Reference Range Interpretation Comments VENOUS BLOOD GAS 6.87 pH units 7.26-7.43 L PH (test code = PHV) VENOUS BLOOD GAS 46 mmHg 33-58 N PCO2 (test code = PCO2V) VENOUS BLOOD GAS 176 mmHg 80-100 H PO2 (test code = PO2V) VBG HCO3 (test 8.1 mmol/L 22.0-26.0 L code = HCO3V) VBG BASE EXCESS -25.5 mmol/L -2.0-2.0 L (test code = LUNA) VENOUS BLOOD GAS 98 % (calc) 72-77 H O2 SAT. (test code = O2SATV) VENOUS BLOOD GAS 100 % 21-100 N FIO2 (test code = FIO2V) VBG VENT MODE A/C Descript VentMode (test code = MODEV) ISAURA. BLOOD GAS 25 /MIN RESP. RATE (test code = RRV) VBG TIDAL VOLUME 450 ml (test code = TVV) VENOUS BLOOD GAS 5.0 cm H2O See_Comment [Automated message] PEEP (test code = The system which PEEPV) generated this result transmitted ref erence range: 0-. The reference range was not used to int erpret this result as normal/abnormal . VENOUS BLOOD GAS Other Site DESCRIPTION SITE (test code = SITEV) CBC W/O [id number] 17:53:00 Test Item Value Reference Range Interpretation Comments WHITE BLOOD CELL (test code = WBC) 21.4 K/mm3 3.5-11.0 H RED BLOOD CELL (test code = RBC) 3.87 M/mm3 4.70-6.10 L HEMOGLOBIN (test code = HGB) 10.2 G/DL 10.4-14.9 L HEMATOCRIT (test code = HCT) 33.7 % 31.5-44.1 N MEAN CELL VOLUME (test code = MCV) 87.1 Fl 84.5-98.6 N MEAN CELL HGB (test code = MCH) 26.4 pg 27.0-34.2 L MEAN CELL HGB CONCETRATION (test 30.3 G/DL 31.5-34.0 L code = MCHC) RED CELL DISTRIBUTION WIDTH (test 14.4 SD 11.5-14.5 N code = RDW) PLATELET COUNT (test code = PLT) 294 K/mm3 150-450 N MEAN PLATELET VOLUME (test code = 11.60 fL 7.0-10.5 H MPV) LACTIC [id number] 17:34:00 Test Item Value Reference Range Interpretation Comments LACTIC ACID (test code = LACT) 1.0 mmol/L 0.4-2.0 CBC W/AUTO [id number] 16:47:00 Test Item Value Reference Range Interpretation Comments WHITE BLOOD CELL 26.1 K/mm3 3.5-11.0 H (test code = WBC) RED BLOOD CELL (test 4.62 M/mm3 4.70-6.10 L code = RBC) HEMOGLOBIN (test code 11.9 G/DL 10.4-14.9 N = HGB) HEMATOCRIT (test code 41.7 % 31.5-44.1 N = HCT) MEAN CELL VOLUME 90.3 Fl 84.5-98.6 N (test code = MCV) MEAN CELL HGB (test 25.8 pg 27.0-34.2 L code = MCH) MEAN CELL HGB 28.5 G/DL 31.5-34.0 L CONCETRATION (test code = MCHC) RED CELL DISTRIBUTION 14.6 SD 11.5-14.5 H WIDTH (test code = RDW) PLATELET COUNT (test 386 K/mm3 150-450 N code = PLT) MEAN PLATELET VOLUME 12.20 fL 7.0-10.5 H (test code = MPV) NEUTROPHIL % (test 75.8 % 40-76 N code = NT%) IMMATURE GRANULOCYTE 3.9 % 0.0-5.0 N % (test code = IG%) LYMPHOCYTE % (test 13.8 % 20.5-51.1 L code = LY%) MONOCYTE % (test code 6.0 % 1.7-9.3 N = MO%) EOSINOPHIL % (test 0.0 % 0.0-6.0 N code = EO%) BASOPHIL % (test code 0.5 % 0.0-2.0 N = BA%) NUCLEATED RBC % (test 0.0 /100WBC% 0.0-1.0 N code = NRBC%) NEUTROPHIL # (test 19.8 K/mm3 1.8-7.6 H code = NT#) IMMATURE GRANULOCYTE 1.03 x10 3/uL 0.00-0.03 H # (test code = IG#) LYMPHOCYTE # (test 3.6 K/mm3 0.6-3.2 H code = LY#) MONOCYTE # (test code 1.6 K/mm3 0.3-1.1 H = MO#) EOSINOPHIL # (test 0.0 K/mm3 0.0-0.4 N code = EO#) BASOPHIL # (test code 0.1 K/mm3 0.0-0.1 N = BA#) NUCLEATED RBC # (test 0.0 K/mm3 0.0-0.1 N code = NRBC#) MANUAL DIFF REQUIRED NO DIFF/SCN CRITERIA SLIDE R BELINDA (test code = MDIFF) CONSISTA NT WITH AUTO DIFFERENTI AL. - CT HEAD/BRAIN W/O [id number] 16:32:00 [facility] 1980 Sex: F Name: HARLEEN MANZANO [facility] : 1980 Age/S: 40 / F [id number] Unit #: [id number] Loc: [place] [address] Phys: Chuy Vega MD Acct: [id number] Dis Date: Status: REG ER PHONE #: [phone] Exam Date: 10/08/20211612 FAX #: Reason: found down, vomiting EXAMS: CPT: [id number] CT HEAD/BRAIN W/O CONT 31485 Location code: H5 CT Cervical Spine Indication: found down, vomiting. Comparison: none. Technique: Axial images were obtained with sagittal and coronal reconstruction. Dose: 1352.07 mGy. This exam was performed according to our departmental dose-optimization program, which includes automated exposure control, adjustment of the mA and/or kV according to patient size and/or use of iterative reconstruction technique. Findings: Alignment is satisfactory . Vertebral body height is maintained. No fracture or subluxation. Mild narrowing of the intervertebral disc spaces with moderateanterior spondylosis at C4-5 and C5-6. The craniocervical junction is intact. Soft tissues are unremarkable. C2 -- 3: Unremarkable. C3 -- 4: Unremarkable. C4---5: Unremarkable. C5 -- 6: Unremarkable. C6 -- 7: Unremarkable. C7 -- T1: Unremarkable. NG tube and oral endotracheal tube in place. PAGE 1 Signed Report (CONTINUED) Name: HARLEEN MANZANO [facility] : 1980 Age/S: 40 / F [address] [facility] Unit #: [id number] Loc: [place] [address] Phys: Chuy Vega MD Acct: [id number] Dis Date: Status: REG ER PHONE #: [phone] Exam Date: 10/08/20211612 FAX #: Reason: found down, vomiting EXAMS: CPT: [id number] CT HEAD/BRAIN W/O CONT 68603 (Continued) Impression: 1. No evidence of trauma. Location code: H5 CT Brain Without Contrast Indication: found down, vomiting Comparison: None Technical factors: Axial images were obtained from the base of the skull to the vertex. Sagittal and coronal reconstruction.Dose: 1352 mGy. This exam was performed according to our departmental dose-optimization program, which includes automated exposure control, adjustment of the mA and/or kV accordingto patient size and/or use of iterative reconstruction technique. Findings: Ventricles and sulci areof normal caliber for patient age. No hemorrhage, mass-effect, or abnormal extra-axial fluid collection. No evidence of acute infarct. Calvarium is unremarkable. No confluent otomastoid disease. Orbitsare normal in appearance. Paranasal sinuses are clear. Impression: 1. Normal non contrast CT scan ofthe brain. PAGE 2 Signed Report (CONTINUED) Name: HARLEEN MANZANO [facility] : 1980 Age/S: 40 / F [address] Unit #: [id number] Loc: [place] [address] Phys: Chuy Vega MD Acct: [id number] Dis Date: Status: REG ER PHONE #: [phone] Exam Date: 10/08/20211612 FAX #: Reason: found down, vomiting EXAMS: CPT: [id number] CT HEAD/BRAIN W/O CONT 07167 (Continued) ElectronicallySigned by Faizan Ugarte on 10/08/2021 at 1632 Reported and signed by: Pro Ugarte M.D. CC: Chuy Vega MD Technologist:James Osullivan, RT(R); Damian CTDI: DLP: Trnscb Date/Time: 10/08/2021 (1631) Ciera Orig Print D/T: S: 10/08/2021 (1634) PAGE 3 Signed Report- CT C-SPINE W/O [id number] 16:32:00 [facility] 1980 Sex: F Name: HARLEEN MANZANO [facility] : 1980 Age/S: 40 / F [address] [address] Unit #: [id number] Loc: [place] [address] Phys: Chuy Vega MD Acct: [id number] Dis Date: Status: REG ER PHONE #: [phone] Exam Date: 10/08/2021 1612 FAX #: Reason: found down, vomiting EXAMS: CPT: [id number] CT C- SPINE W/O CONT 91236 Location code: H5 CT Cervical Spine Indication: found down, vomiting. Comparison: none. Technique: Axial images were obtained with sagittal and coronal reconstruction. Dose: 1352.07 mGy. This exam was performed according to our departmental dose-optimization program, which includes automated exposure control, adjustment of the mA and/or kV according to patient size and/or use of iterative reconstruction technique. Findings: Alignment is satisfactory . Vertebral body height is maintained. No fracture or subluxation. Mild narrowing of the intervertebral disc spaces with moderateanterior spondylosis at C4-5 and C5-6. The craniocervical junction is intact. Soft tissues are unremarkable. C2 -- 3: Unremarkable. C3 -- 4: Unremarkable. C4---5: Unremarkable. C5 -- 6: Unremarkable. C6 -- 7: Unremarkable. C7 -- T1: Unremarkable. NG tube and oral endotracheal tube in place. PAGE 1 Signed Report (CONTINUED) [facility] 1980 Age[facility]S: 40 / F [id number] Unit #: [id number] Loc: [place] [address] Phys: Chuy Vega MD Acct: [id number] Dis Date:Status: REG ER PHONE #: [phone] Exam Date: 10/08/20211611 FAX #: Reason: found down, vomiting EXAMS: CPT: [id number] CT C-SPINE W/O CONT 76764 (Continued) Impression: 1. No evidence of trauma. Location code: H5 CT Brain Without Contrast Indication: found down, vomiting Comparison: None Technicalfactors: Axial images were obtained from the base of the skull to the vertex. Sagittal and coronal reconstruction.Dose: 1352 mGy. This exam was performed according to our departmental dose-optimizationprogram, which includes automated exposure control, adjustment of the mA and/or kV according to patient size and/or use of iterative reconstruction technique. Findings: Ventricles and sulci are of normal caliber for patient age. No hemorrhage, mass-effect, or abnormal extra-axial fluid collection. No evidence of acute infarct. Calvarium is unremarkable. No confluent otomastoid disease. Orbits are normal in appearance. Paranasal sinuses are clear. Impression: 1. Normal non contrast CT scan of the brain. PAGE 2 Signed Report (CONTINUED) Name: HARLEEN MANZANO [facility] : 1980 Age/S: 40 / F [id number] [address] Unit #: [id number] Loc: [place] [address] Phys: Chuy Vega MD Acct: [id number] Dis Date: Status: REG ER PHONE #: [phone] Exam Date: 10/08/20211611 FAX #: Reason: founddown, vomiting EXAMS: CPT: [id number] CT C-SPINE W/O CONT 46633 (Continued) at 1632 Reported and signed by: Pro Ugarte M.D. CC: Chuy Vega MD Technologist:James Osullivan, RT(R); Damian CTDI: DLP: Trnscb Date/Time: 0 10/08/2021 (163) [email or web address] Orig Print D/T: S: 10/08/2021 (1255) PAGE 3 Signed ReportBASIC METABOLIC [id number] 16:28:00 Test Item Value Reference Range Interpretation Comments SODIUM (test code = NA) 130 mmol/L 134-147 L POTASSIUM (test code = K) 6.4 mmol/L 3.4-5.0 HH CHLORIDE (test code = CL) 98 mmol/L 100-108 L CARBON DIOXIDE (test code = 6 mmol/L 21-32 LL CO2) ANION GAP (test code = GAP) 26.0 GAP calc 4.0-15.0 H GLUCOSE (test code = GLU) 1095 MG/DL 70-110 HH BLOOD UREA NITROGEN (test code 38 MG/DL 7-18 H = BUN) GLOMERULAR FILTRATION RATE 29 estGFR >60 L (test code = GFR) CREATININE (test code = CREAT) 2.4 MG/DL 0.6-1.0 H CALCIUM (test code = CA) 8.5 MG/DL 8.5-10.1 N Completed by Nursing: YESTroponin I Result: .Performed By: .If Critical Value, Physician Notified: .Date & Time Test Performed: .HEPATIC FUNCTION PANEL 2021-10-08 16:28:00 Test Item Value Reference Range Interpretation Comments TOTAL PROTEIN (test code = PROT) 7.1 G/DL 6.4-8.2 N ALBUMIN (test code = ALB) 2.1 G/DL 3.4-5.0 L BILIRUBIN TOTAL (test code = BILT) 0.90 MG/DL 0.2-1.2 N BILIRUBIN DIRECT (test code = 0.30 MG/DL 0.00-0.30 N BILD) BILIRUBIN INDIRECT (test code = 0.60 MG/DL 0.2-1.2 N BILIND) SGOT/AST (test code = AST) 29 Unit/L 15-37 N SGPT/ALT (test code = ALT) 13 Unit/L 12-78 N ALKALINE PHOSPHATASE TOTAL (test 130 Unit/L 45-117 H code = ALKP) Completed by Nursing: YESTroponin I Result: .Performed By: .If Critical Value, Physician Notified: .Date & Time Test Performed: .[id number] 16:28:00 Test Item Value Reference Range Interpretation Comments PHOSPHOROUS (test code = PHOS) 8.9 MG/DL 2.5-4.9 H Completed by Nursing: YESTroponin I Result: .Performed By: .If Critical Value, Physician Notified: .Date & Time Test Performed: .[id number] 16:28:00 Test Item Value Reference Range Interpretation Comments LIPASE (test code = LIP) 636 Unit/L 114-286 H Completed by Nursing: YESTroponin I Result: .Performed By: .If Critical Value, Physician Notified: .Date & Time Test Performed: .[id number] 16:28:00 Test Item Value Reference Range Interpretation Comments MAGNESIUM (test code = MAG) 2.7 MG/DL 1.8-2.4 H Completed by Nursing: YESTroponin I Result: .Performed By: .If Critical Value, Physician Notified: .Date & Time Test Performed: .NT PRO-BRAIN NATRIURETIC [id number] 16:28:00 Test Item Value Reference Range Interpretation Comments NT PRO-BRAIN NATRIURETIC PEPTI 2132 PG/ML 0-100 H (test code = PROBNP) Completed by Nursing: YESTroponin I Result: .Performed By: .If Critical Value, Physician Notified: .Date & Time Test Performed: .TROP-I HIGH SENSITIVITY 2021-10-08 16:28:00 Test Item Value Reference Range Interpretation Comments TROP-I HIGH 10.2 ng/L 0-34 N CAUTION: Units of the SENSITIVITY (test current te st methodology code = TROPIHS) (ng/L) diffe rfrom the prior test meth odology (ng/mL) by a fa ctor of 1000. 99t h Percentile Uppe r Reference Limit (URL):Fem ales: 34 ng/LMales: 54 n g/L In order to distin guish acute elevations of h igh sensitivitytrop onin from other clinical conditions, the FourthUnive rsal Definition of M yocardial Infarction stressesclinica l assessment and the demonstration o f a rise and/orfall in s erial troponin result s above the URL. Results fr om different metho dologies should not be c omparedto one another as quantitative re sults and URLs may varyby method. Completed by Nursing: YESTroponin I Result: .Performed By: .If Critical Value, Physician Notified: .Date & Time Test Performed: .[id number] 16:28:00 Test Item Value Reference Range Interpretation Comments ALCOHOL (test code = ALC) < 3 MG/DL 0-10 N Completed by Nursing: YESTroponin I Result: .Performed By: .If Critical Value, Physician Notified: .Date & Time Test Performed: .- XR CHEST 1 [id number] 16:15:00[facility] 1980 Sex: F Name: HARLEEN MANZANO [facility] : 1980 Age/S: 40 / F [address] [facility] [address] Unit #: [id number] Loc: [place] [address] Phys: Chuy Vega MD Acct: [id number] Dis Date: Status: REG ER PHONE #: [phone] Exam Date: 10/08/2021 160 FAX #: Reason: Code Sepsis EXAMS: CPT: [id number] XR CHEST 1 V 11780 Fluoro Time: DAP (Gy m2): Air Kerma (mGy): REASON FOR EXAM: Code sepsis, unresponsive. COMPARISON: February 26, 2014. Chest, portable single frontal view. Right jugular line with its tip in the superior vena cava and right atrial junction. ET tube 4.5 cm above the watson. NG tube in the stomach. The lungs are slightly decreased in inflation with perihilar densities present that may indicate somevascular congestion/fluid overload.. Heart size is normal. No effusion or pneumothorax can be seen. Osseous structures appear to be intact. IMPRESSION: Support lines and tubes intact. Decreased lung inflation level. Vascular congestive changes possibly. Location: 9 at 1615 Reported and signed by: Timi Davis M.D. CC: Elba Vega MD PAGE 1 Signed Report Name: HARLEEN MANZANO [place] : 1980 Age/S: 40 / F [address] [address] Unit #: [id number] Loc: [place] [address] Phys: Chuy Vega MD Acct: [id number] Dis Date: Status: REG ER PHONE #: [phone] Exam Date: 10/08/2021 1609 FAX #: Reason: Code Sepsis EXAMS: CPT: [id number] XR CHEST 1 V 49951 Fluoro Time: DAP (Gy m2): Air Kerma (mGy): (Continued) Technologist: Anisa Peng, RT(R) Trnscb Date/Time: 10/08/2021 (1615) [email or web address] Orig Print D/T: S: 10/08/2021 (1618) PAGE 2 Signed ReportUA RFLX MICR CULT IF [id number] 15:26:00 Test Item Value Reference Range Interpretation Comments UA COLOR (test code = YELLOW discript YEL/STRAW COLU) UA APPEARANCE (test code CLEAR discript CLEAR = APPU) UA GLUCOSE DIPSTICK (test 3+ mg/dL NEG code = DGLUU) UA BILIRUBIN DIPSTICK NEGATIVE mg/dL NEG (test code = BILU) UA KETONE DIPSTICK (test 3+ mg/dL NEG A code = KETU) UA SPECIFIC GRAVITY (test 1.020 SG 1.005-1.030 code = SGU) UA BLOOD DIPSTICK (test 2+ mg/DL NEG A code = JOYCELYN) UA PH DIPSTICK (test code <=5.0 pH UNITS 5.0-7.0 = CATERINA) UA PROTEIN DIPSTICK (test 1+ mg/dL NEG A code = PROU) UA UROBILINIOGEN DIPSTICK 0.2 mg/dL <2.0 (test code = URO) UA NITRITE DIPSTICK (test NEGATIVE SCREEN NEG code = BRITNEY) UA LEUKOCYTE ESTERASE NEGATIVE Leuk/mcL NEGATIVE DIPSTICK (test code = LEUU) UA CULTURE NEEDED? (test NO, WBC<10 Criteria Culture CHK code = UACULT) UA WBC (test code = WBCU) 0-1 #WBC/HPF 0-3 UA RBC (test code = RBCU) 3-5 #RBC/HPF 0-3 A UA BACTERIA (test code = 1+ /HPF NONE-TRACE A BACU) UA SQUAMOUS CELLS (test 1+ /HPF NONE A code = SQU) Indication for culture: Gross HematuriaDRUGS OF ABUSE SCREEN [id number] 15:26:00 Test Item Value Reference Range Interpretation Comments URN COCAINE (test NEGATIVE See_Comment UNCONFIRME D code = COCAURN) SCcutoff SCREENING RE SULTS SHOULD NOT BE U SED FORNON-MEDICAL PURPOSES. [Automated message] The system which generated this result transmit kennedy reference range : <300 NG/ML. The reference range was not used to interpret this result as normal/abnormal . URN CANNABINOIDS NEGATIVE See_Comment UNCONFIRMED (test code = SCcutoff SCREENING RESUL TS CANNABURN) SHOULD NOT BE U SED FORNON-MEDICAL PURPOSES. [Automated message] The system which generated this result transmit kennedy reference range : <50 NG/ML. The reference range was not used to interpret this result as normal/abnormal . URN AMPHETAMINE (test NEGATIVE See_Comment UNCONF IRMED code = AMPHETURN) SCcutoff SCREENING RESULTS SHOULD NOT BE U SED FORNON-MEDICAL PURPOSES. [Automated message] The system which generated this result transmit kennedy reference range : <1000 NG/ML. Th e reference range was not used to interpret this result as normal/abnormal . URN BARBITURATE (test NEGATIVE See_Comment UNCONF IRMED code = BARBITURN) SCcutoff SCREENING RESULTS SHOULD NOT BE U SED FORNON-MEDICAL PURPOSES. [Automated message] The system which generated this result transmit kennedy reference range : <200 NG/ML. The reference range was not used to interpret this result as normal/abnormal . URN BENZODIAZEPINE NEGATIVE See_Comment UNCONFIRM ED (test code = SCcutoff SCREENING RESUL TS BENZOURN) SHOULD NOT BE U SED FORNON-MEDICAL PURPOSES. [Automated message] The system which generated this result transmit kennedy reference range : <200 NG/ML. The reference range was not used to interpret this result as normal/abnormal . URN OPIATES (test NEGATIVE See_Comment UNCONFIRME D code = OPIATURN) SCcutoff SCREENING R ESULTS SHOULD NOT BE U SED FORNON-MEDICAL PURPOSES. [Automated message] The system which generated this result transmit kennedy reference range : <300 NG/ML. The reference range was not used to interpret this result as normal/abnormal . URN PHENCYCLIDINE NEGATIVE See_Comment UNCONFIRME D (PCP) (test code = SCcutoff SCREENING RESULTS PHENCURN) SHOULD NOT BE U SED FORNON-MEDICAL PURPOSES. [Automated message] The system which generated this result transmit kennedy reference range : <25 NG/ML. The reference range was not used to interpret this result as normal/abnormal . URN METHADONE (test NEGATIVE See_Comment UNCONFIR MED code = METHAURN) SCcutoff SCREENING R ESULTS SHOULD NOT BE U SED FORNON-MEDICAL PURPOSES. [Automated message] The system which generated this result transmit kennedy reference range : <300 NG/ML. The reference range was not used to interpret this result as normal/abnormal . Indication for culture: Gross HematuriaCOVID 19 Asymptomatic IH [id number] 15:01:00 Test Item Value Reference Range Interpretation Comments COVID 19 Asymptomatic IH AG (test POSITIVE Negative A code = COVNONPUIAG) HCG [id number] 15:00:00 Test Item Value Reference Range Interpretation Comments HCG SERUM (test < 1 mi-IU/ML 0-6 N 0 - 6 NOT P REGNANT > 6 code = HCG) SUGGESTIVE OF E YEHUDA RISES TWO FOLD EVERY 2 DAYS; S UGGEST RECONFIRMING AF TER 2 DAYS. 150,000-2 00,[address] TRIMESTER 10 ,000 - 50,000 2ND & 3R D TRIMESTER LACTIC [id number] 15:00:00 Test Item Value Reference Range Interpretation Comments LACTIC ACID (test code = LACT) 2.1 mmol/L 0.4-2.0 H [id number] 14:59:00 Test Item Value Reference Range Interpretation Comments SALICYLATE (test code 4.8 MG/DL See_Comment N [Auto mated message] = RAMON) The system whic h generated this result transmitted ref erence range: 2.8-20.0 THER. The reference r west was not used to interpret this result as normal/abnor mal. PROTHROMBIN [id number] 14:47:00 Test Item Value Reference Range Interpretation Comments PT PATIENT (test 11.7 SECONDS 9.3-12.9 N code = PTP) INTERNATIONAL NORMAL 1.03 INR Unit 0.8-1.2 N TARGE T INR BY RATIO (test code = INDICATIO N Indication INR) INR1. Prophylax is of venous thrombos is 2.0 - 3.0 (orthoped ic surgery), Proph ylaxis of venous throm bosis (other than hig h-risk surgery), Treat ment of Deep Vein Thrombosis/Pulm onary Embolism, Preve ntion of systemic emb olism - Tissue heart va lves, Acute Myocardia l Infarction (to prevent systemic emboli sm), Valvular heart disease, Acute Myocardial Infa rction (to prevent sys temic embolism), Valv ular heart disease, Atrial Fibrillation, Bileaflet mecha nical valve in aortic position.2. Mec hanical prosthetic valv es (high risk), 2. 5 - 3.5 Presence of Lup us Anticoagulant o r Antiphospholipi d Antibodies, Pre vention of systemic emb olism - Acute Myocardia l Infarction (to prevent recurrent infar ct). THROMBOPLASTIN TIME [id number] 14:47:00 Test Item Value Reference Range Interpretation Comments THROMBOPLASTIN TIME PARTIAL 26.3 SECONDS 26-35 N (test code = PTT) VENOUS BLOOD [id number] 14:19:00 Test Item Value Reference Range Interpretation Comments VENOUS BLOOD GAS PH 6.71 pH units 7.26-7.43 L (test code = PHV) VENOUS BLOOD GAS PCO2 25 mmHg 33-58 L (test code = PCO2V) VENOUS BLOOD GAS PO2 68 mmHg 80-100 L (test code = PO2V) VBG HCO3 (test code = 3.0 mmol/L 22.0-26.0 L HCO3V) VBG BASE EXCESS (test -33.2 mmol/L -2.0-2.0 L code = LUNA) VENOUS BLOOD GAS O2 67 % (calc) 72-77 L SAT. (test code = O2SATV) VENOUS BLOOD GAS FIO2 100 % 21-100 N (test code = FIO2V) VBG VENT MODE (test non-rebreather mask VentMode code = MODEV) Descript VENOUS BLOOD GAS SITE Other Site DESCRIPTION (test code = SITEV) - XR CHEST 1 [id number] 00:00:00 [facility] : 1980 Sex: F FAX: Mark Gorman MD [place]: St: ADM Name: HARLEEN MANZANO [facility] : 1980 Age/S: 40/F [address] [place] [address] Unit #: [id number] Loc: [place] [address] Phys: Mark Gorman MD Acct: [id number] Dis Date: Status: ADM IN PHONE #: [phone] Exam Date: 10/08/20212149 FAX #: [phone] Reason: intubated EXAMS: CPT CODE: [id number] XR CHEST 1 V 24018 PROCEDURE INFORMATION: Exam: XR Chest Exam date and time: 10/08/2021 9:20 PM Age: 40 years old Clinical indication: Device placement; Ett placement (vent status); Additional info: Intubated TECHNIQUE: Imaging protocol: Radiologic exam of the chest. Views: 1 view. COMPARISON: CR XR CHEST 1V 10/08/2021 3:50 PM FINDINGS: Tubes, catheters and devices: An endotracheal tube terminates 5.1 cm above the watson. An enteric tube enters the stomach and extends beyond the field of view. A right neck access central venous catheter terminates in the superior venacava similar to prior. Lungs: Unremarkable. No consolidation. Pleural spaces: Unremarkable. No pleural effusion. No pneumothorax. Heart/Mediastinum: Unremarkable. No cardiomegaly. Bones/joints: Unremarkable. IMPRESSION: 1. An endotracheal tube terminates 5.1 cm above the watson. 2. An enteric tube enters the stomach and extends beyond the field of view. 3. A right neck access central venous catheter terminates in the superior vena cava similar to prior. 4. There is no acute cardiopulmonary process. at 2221 Reported and signed by: Mark De Leon D.O. CC: Mark Gorman MD Technologist: RT Ronn(Gee) Trnscrd Date/Time/By:10/08/2021 (2220) : By: [email or web address] Orig Print D/T: S: 10/08/2021 (2220) PAGE 1 Signed Report Notes Date/Time Note Provider Source 2022-08-10 20:06:00-00:00 [facility] ([facility]) EMERGENCY PROVIDER REPORT REPORT#:[id number] REPORT STATUS: Signed DATE:08/10/22 TIME:2005 PATIENT: HARLEEN MANZANO UNIT #: [id number] ROOM/BED: : 80 AGE: 41 SEX: F PCP PHYS: No Prima ry or Family Physician SERVICE AUTHOR: Hallie Medina MD * ALL edits or amendments must be made on the [email or web address]/computer document * HPI- Female Free Text HPI Notes Free Text HPI Notes 41-year-old female with history of diabetes, CKD presenting with 2 weeks of urinary symptoms which she describes the increas ed frequency and urgency. Denies dysuria. Denies fever or chills. She also is concerned and would like her kidney function checked. She is also request ing a dressing change for her prior amputation. Pending wound care appointment on August 18 General Initial Greet Date/Time 08/10/22 1855 Presentation Chief Complaint Urinary frequency )( Sudden in Onset? No Review of Systems ROS Statements All systems rev neg except as marked. Basic Review of Systems Basic ROS EYES: No redness, RESP: No SOB , CV: No chest pain, HEM: No bleeding/ bruising, PSYCH: NL thought content Focused Review of Systems Constitutional Denies: Chills, Fatigue, Fever. Past Medical History - Adult Stated Complaint FREQUENT URINATION, WOUND DRESS ING CHANGE L FOOT Allergies Coded Allergies: Sulfa (Sulfonamide Antibiotics) (Mild, HIVES ) Home Medications Active Scripts DME - GLUCOSE LANCETS (GLUCOSE LANCETS) EACH MIS C DAILY DME - GLUCOSE LANCETS (GLUCOSE LANCETS) EACH OK SC DAILY #400 Prov: 10/22/21 DME - GLUCOSE METER (GLUCOSE METER) EACH MISC DIR DME - GLUCOSE METER (GLUCOSE METER) EACH MISC A SDIR #1 Prov: 10/22/21 DME - GLUCOSE STRIPS (GLUCOSE STRIPS) EACH MISC DAILY DME - GLUCOSE STRIPS (GLUCOSE STRIPS) EACH MISC DAILY #400 Prov: 10/22/21 cefTRIAXone (ROCEPHIN) 2,000 MG IV DAILY metroNIDAZOLE (FLAGYL) 500 MG PO TID metroNIDAZOLE (FLAGYL) 500 MG PO TID #127 TABS Prov: 02/12/22 DAPTOmycin (CUBICIN) 1,000 MG IV DAILY INSULIN GLARGINE (LANTUS) 25 UNIT SUBQ QAM INSULIN GLARGINE (LANTUS) 30 UNIT SUBQ QPM INSULIN LISPRO (HumaLOG) 6 UNIT SUBQ AC INSULIN LISPRO (HumaLOG) 6 UNIT SUBQ AC #1000 M L Prov: 10/22/21 Past Medical History: Reports: Diabetes mellitus. 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 Recent illness as mentioned in HPI Additional Surgical History Additional Family History Reviewed not significant in this patient's care Alcohol Use Denies EtOH use Drug Use Denies recreational drugs Smoking status for patients 13 years old or olde r: Unknown,if ever smoked Physical Exam Vital Signs Vital Signs First Documented: Result Date Time Pulse Ox 100 08/10 1953 B/P 148/87 08/10 1953 B/P Mean 107 08/10 1953 O2 Delivery Room air 08/10 1953 Temp 37.2 08/10 1953 Pulse 91 08/10 1953 Resp 18 08/10 1953 Last Documented: Result Date Time Pulse Ox 100 08/11 14 B/P 148/91 08/11 14 B/P Mean 110 08/11 14 O2 Delivery Room air 08/11 14 Temp 37.1 08/11 14 Pulse 90 08/11 14 Resp 17 08/11 14 Review of Vital Signs Reviewed Basic Physical Exam Basic PE GEN: Well appearing /NAD, HEAD: Atraumatic/NC, EYES: PERRL, conj clear, ENT: Membranes moist, NECK: Supple, RESP: No res p distress, CV: Reg rate rhythm, ABD: Soft/non-tender , EXT: No gross abnormality, SKIN: No rashes, warm/ dry, NEURO: alert oriented, NEURO: gross movemen t NL, PSYCH: NL thought content Focused PE Genitourinary General Exam deferred (No pelvic or vaginal com plaint) Interpretation Diagnostics Lab Results Interpretation Results Laboratory Tests 08/10/222126: [Embedded Image Not Available] Laboratory Tests: 08/10 2126 Chemistry Sodium (134 - 147 mmol/L) 135 Potassium (3.4 - 5.0 mmol/L) 3.8 Chloride (100 - 108 mmol/L) 105 Carbon Dioxide (21 - 32 mmol/L) 26 Anion Gap (4.0 - 15.0 GAP calc) 4.0 BUN (7 - 18 MG/DL) 21 H Creatinine (0.6 - 1.0 MG/DL) 1.0 Glomerular Filtr Rate (>60 estGFR) >=60 max est imate Glucose (70 - 110 MG/DL) 183 H Calcium (8.5 - 10.1 MG/DL) 9.0 Total Bilirubin (0.2 - 1.2 MG/DL) 0.40 AST (15 - 37 Unit/L) 20 ALT (12 - 78 Unit/L) 18 Total Alk Phosphatase (45 - 117 Unit/L) 66 Total Protein (6.4 - 8.2 G/DL) 7.7 Albumin (3.4 - 5.0 G/DL) 3.0 L Globulin (GM/dL) 4.7 Albumin/Globulin Ratio (1.2 - 2.2 RATIO) 0.6 L Hematology WBC (3.5 - 11.0 K/mm3) 11.1 H RBC (4.70 - 6.10 M/mm3) 3.93 L Hgb (10.4 - 14.9 G/DL) 9.9 L Hct (31.5 - 44.1 %) 31.2 L MCV (84.5 - 98.6 Fl) 79.4 L MCH (27.0 - 34.2 pg) 25.2 L MCHC (31.5 - 34.0 G/DL) 31.7 RDW (11.5 - 14.5 SD) 15.3 H Plt Count (150 - 450 K/mm3) 227 MPV (7.0 - 10.5 fL) 11.60 H Neut % (Auto) (40 - 76 %) 55.2 Lymph % (Auto) (20.5 - 51.1 %) 37.9 [place] % (Auto) (1.7 - 9.3 %) 5.9 Eos % (Auto) (0.0 - 6.0 %) 0.0 Baso % (Auto) (0.0 - 2.0 %) 0.6 Neut # (Auto) (1.8 - 7.6 K/mm3) 6.1 Lymph # (Auto) (0.6 - 3.2 K/mm3) 4.2 H [place] # (Auto) (0.3 - 1.1 K/mm3) 0.7 Eos # (Auto) (0.0 - 0.4 K/mm3) 0.0 Baso # (Auto) (0.0 - 0.1 K/mm3) 0.1 Abs Immat Gran (auto) (0.00 - 0.03 x10 3/uL) 0. 04 H Add Manual Diff (CRITERIA DIFF/SCN) NO Immature Gran % (0.0 - 5.0 %) 0.4 Nucleated RBC % (0.0 - 1.0 /100WBC%) 0.0 Patient Discharge Departure Vital Signs/Condition Vital Signs First Documented: Result Date Time Pulse Ox 100 08/10 1953 B/P 148/87 08/10 1953 B/P Mean 107 08/10 1953 O2 Delivery Room air 08/10 1953 Temp 37.2 08/10 1953 Pulse 91 08/10 1953 Resp 18 08/10 1953 Last Documented: Result Date Time Pulse Ox 100 05/03 0015 B/P 148/91 05/03 0015 B/P Mean 110 08/11 14 O2 Delivery Room air 08/11 14 Temp 37.1 08/11 14 Pulse 90 08/11 14 Resp 17 08/11 14 All vital signs available at the time of this en try have been reviewed. Clinical Impression Clinical Impression Primary Impression: Encounter for dressing of wo und Disposition Decision Discharge )( Discharged to Home Yes )( Time 0002 )( Date 08/11/22 Discharge/Care Plan Counseled Regarding Diagnosis, Lab resul ts, Need for follow-up, When to return to ED Patient Instructions ED Dressing Change Additional Instructions FOLLOW UP WITH YOUR PRIMARY CARE DOCTOR Discharge Note I have spoken with the patie nt and/or caregivers. I have explained the patient's condition, diagnoses and josé luis atment plan based on the information available to me at this time. I have answered the patient's and/ or caregiver's questions and addressed any concerns. The patient and/or careg kasia have as good an understanding of the patient 's diagnosis, condition and treatment plan as can be expected at this point. The vital signs have bee n stable. The patient's condition is stable and appr opriate for discharge from the emergency department. The patient will pursue further outpatient evalu ation with the primary care physician or other designated or consulting phys ician as outlined in the discharge instructions. The patient and/or caregivers are agreeable to this plan of care and follow-up instructions have been exp lained in detail. The patient and/or caregivers have received these instructio ns in written format and have expressed an understanding of the discharge inst ructions. The patient and/or caregivers are aware that any significant change in condition or worsening of symptoms should prompt an immediate return to [facility] or the closest emergency department or a call to 911. at [address] [facility] #: [id number] END OF REPORT 2022-02-19 20:54:00-00:00 [id number] [facility] [address] [place] [id number] PATIENT NAME: HARLEEN MANZANO ADMIT DATE: 2 ACCOUNT NO: [id number] ROOM NO: S218 AGE: 41 REPORT TYPE: 360 - QUERY RESPONSE DOCUMENT SEX: F ADMITTING PHYSICIAN: Marshal Maya MD ATTENDING PHYSICIAN: Marshal Maya MD Provider Query QUERY TEXT: Relationship Procedure Condition 360MD Query related questions should be directed to::Jennifer moni [facility] Coding Query Helpline Please clarify the etiology of the diagnosis Paxton t wound/Osteomyelitis and its relationship, if an y, to the procedure left 5th toe ray amputation. The classification system provides these guideli melina for intraoperative and/or post procedure conditions /diagnoses: -- Not all post procedure conditions are classif ied as complications. - There must be an unexpected or abnormal occurr ence. - There must be a documented cause and effect re lationship between the condition and the care. - There must be an indication that it is a compl ication -- The term ''complication'' as used in ICD-10-C M does not imply that improper or inadequate care is respo nsible for the problem -- There is no time limit for development of com plication -- The term postoperative requires clarity to de termine if it is a complication or condition resulting fro m medical/surgical care that is a residual condit ion of the procedure. -- When laceration/tear/enterotomy occurs during a procedure, the physician must provide clarity a s to whether the tear was an incidental occurrence i nherent to the procedure or clinically significant (compli cation). -- When hemorrhage occurs with procedure, clarif y if it is expected or unexpected as well as abnormal amou nt of blood loss and the organ or tissue structure involved (i.e., subcutaneous, fascia, specific organ, specific artery/vein, etc.). The patient's Clinical Indicators include: Medical Reason: LEFT FOOT OSTEOMYELITIS, UTI - O E orders on 02/08/2022 S/p left 5th toe ray amputation and debridement 4th toe MTP joint 12/01/21 - Hospitalist History Physical Open wound at 5th ray stump - ED PHYSICIAN RECOR D 02/07/2022 Left foot severe soft tissue infection with oste omyelitis - Infect Disease Consult Note 02/08/2022 X ray of the foot shows open wound (5th) with blankenship bcutaneous emphysema/gas gangrene (4th, 5th) and progressi on of osteomyelitis (4th) - Hospitalist Discharge Curt mckeon 02/13/2022 Wound of left foot, suspicious gas gangrene - Ho spitalist History Physical 02/08/2022 Options provided: -- Routine, inherent or integral -- Unexpected or abnormal -- Unrelated, Please specify the cause if known. -- Other - I will add my own diagnosis -- Dismiss - Not applicable / Not valid -- Dismiss - Clinically unable to determine / Un known -- Assign to another provider QUERY RESPONSE: This was unrelated to procedure/due to other cau se. Query created by: Jin Whitlock on 022 4:13 AM at 2054 PATIENT NAME: HARLEEN MANZANO 0412 2022-02-13 19:08:00-00:00 [facility] ([facility]) Infectious Dis. Progress Note REPORT#:[id number] REPORT STATUS: Signed DATE:02/13/22 TIME:1907 PATIENT: HARLEEN MANZANO UNIT #: [id number] ROOM/BED: [place] [address] : 80 AGE: 41 SEX: F ATTEND: Tee Maya MD ADM AUTHOR: Pro Bustamante MD * ALL edits or amendments must be made on the wst.cn/computer document * Subjective Chief complaint: Foot infection HPI: Pain under control, she wants to go home . Pt is on vancomycin, ceftriaxone and metronidazole. Review of Systems Constitutional: Denies: fever. Objective General VS/I O: Vital Signs Date Temp Pulse Resp B/P B/P Mean Pulse Ox FiO2 02/12-02/13 36.6-37.1 88-100 14-16 109-134/61-85 77.4-101.2 97-100 Last Documented: Result Date Time Pulse Ox 99 02/13 1128 B/P 127/79 02/13 1128 B/P Mean 94.8 02/13 112 O2 Delivery Room air 02/14 1128 Temp 36.9 02/13 112 Pulse 90 02/13 112 Resp 14 02/13 1128 Vital Signs: Date Time Temp Pulse Resp B/P B/P Pulse O2 O2 F low FiO2 Mean Ox Delivery Rate 02/13 1128 36.9 90 14 127/79 94.8 99 Room air 02/13 0746 37.1 88 14 109/61 77.4 97 Room air 02/13 0321 36.8 90 15 119/75 90.1 98 Room air 02/12 2307 36.6 96 16 134/85 101.2 99 Room air 02/12 1944 36.9 100 16 130/84 99.1 100 Room air 24 hour I O ending at 0700: 02/13 0700 02/12 1900 Intake Total 240 Output Total Balance 240 Intake, Oral 240 Number Voids 1 PATIENT WEIGHT: Weight (lb): Weight (oz): Weight (kg): 165.909 Physical Exam General appearance: obese, awake Head/Eyes: atraumatic, normocephalic Cardiovascular: regular rate rhythm Respiratory: aerating well, no distress Abdomen: non-tender, soft, no distention Extremities: Left foot with dressing Neuro/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 OPERATOR: alert, oriented X 3, normal speech Diagnosis, Assessment Plan Free Text A P: No new CBC Imaging X-ray left foot reviewed 02/07 MRI left foot reviewed 02/09 Assessment 1. Left foot soft tissue infection with osteomye litis. 2. Recent E. coli bacteremia (S=ceftriaxone, Jazzmine syn). 3. Previous wound cx showed E. coli, VRE (R=ampi cillin) and MSSE. 4. S/p I D on 11/27/21 and left 5th toe ray amput ation and debridement 4th toe MTP joint 12/01/21. 5. Acute renal insufficiency. 3. Uncontrolled DM with peripheral neuropathy. 5. Obesity, severe. 6. UTI - E. coli Plan 1. Vancomycin and ceftriaxone (day 7) with metro nidazole (day 6). 2. For discharge, pt can go on ceftriaxo ne 2 gm IV q24h and daptomycin 1 gm IV q24h for 4-6 weeks. 3. Case discussed with Dr. Darlene garcia. He recommends conservative management as the gas observed in the foot is due to an op en wound and the fluid collection does not look infected. 4. Monitor CBC and kidney function. 5. Recommend removing old PICC line and placing a new one before discharge. 6. CM consulted to arrange home IV abxs. 7. Pt can be discharged from ID standpoint. at 1909 RPT #: [id number] END OF REPORT 2022-02-13 14:35:00-00:00 [facility] ([facility]) Hospitalist Discharge Summary REPORT#:[id number] REPORT STATUS: Signed DATE:02/13/22 TIME:1435 PATIENT: HARLEEN MANZANO UNIT #: [id number] ROOM/BED: [place] [address] : 80 AGE: 41 SEX: F ATTEND: Tee aMya MD ADM AUTHOR: Prakash Larsen MD * ALL edits or amendments must be made on the el [employer]/computer document * General Information Date of admission: Observation Start Date: Date of admission: 02/08/22 Discharge date: 02/13/22 Discharge diagnosis: see hosp course Hospital course: 41-year-old morbidly obese female with PMSHx lef t diabetic foot osteomyelitis with abscess and sepsis with E. coli bacteremia, s/p left 5th toe ray amputation and debridement 4th toe MTP joint 12/01/21 who was discharged to home health with IV antibiotics Ceftriaxone 2 gm IV q24h and daptomycin 1 gm IV q24h for 6 weeks til 01/05/22, and oral metron idazole til 12/21/21 presented to the ED with a left foot odor for the past 4 weeks. Patient complete d antibiotics regimen. Still PICC line present. After home health ser vice completion, patient quit changing the dressing or providing any care to her foot a pproximately 4 weeks ago [employer]. Patient has a severe appearing infection on her proximal left lateral foot . X ray of the foot shows open w ound (5th) with subcutaneous emphysema/gas gangrene (4th, 5th) and progression of osteomyelitis (4th ). Patient was not septic. Ceftriaxone/vancomycin given at ED. Orthopedic c onsulted. Also found to have UTI. Patient is admitted for further evaluation and management of foot gangrene. Free text DxA P notes: #Wound of left foot, suspicious gas gangrene ortho consulted Appreciate recommendations Antibiotics mgmg per ID blood culture negative to date MRI of the left foot noted, fluid noted 4.5 cm, no need for any surgical intervention this admission PER orthopedics #Osteomyelitis of left DM foot ortho consulted Appreciate surgery On IV Antibiotics- per ID needs home abx: CM con sulted dc home with home IV abx #Type I diabetes mellitus, uncontrolled, with ne uropathy ACHS SSI #UTI (urinary tract infection) on antibiotics E coli on cxs #Obesity Lifestyle modification #Renal insufficiency monitor renal parameter Caution with nephrotoxic meds Seen and examined, much improved Discharge home with home IV antibiotics Discharge time 33 minutes Pt. condition on discharge: improved, stable Free Text DxA P Notes Free text DxA P notes: #Wound of left foot, suspicious gas gangrene ortho consulted Appreciate recommendations Antibiotics mgmg per ID blood culture negative to date MRI of the left foot noted, fluid noted 4.5 cm, no need for any surgical intervention this admission orthopedics #Osteomyelitis of left DM foot ortho consulted Appreciate surgery On IV Antibiotics #Type I diabetes mellitus, uncontrolled, with ne uropathy ACHS SSI #UTI (urinary tract infection) on antibiotics #Obesity Lifestyle modification #Renal insufficiency monitor renal parameter Caution with nephrotoxic meds Disposition Patient improved, conditional discharge once yves e IV antibiotics are set up Pending on antibiotics set up VTE ppx: Lovenox Full code Med Rec Med Rec Discharge meds: Stop taking the following medications: INSULIN GLARGINE (LANTUS) 100 UNIT/ML VIAL 15 UNIT SUBCUTANEOUS EVERY 12 HOURS. Qty = 20 Continue taking these medications: INSULIN LISPRO (HumaLOG) 100 UNIT/ML VIAL 6 UNIT SUBCUTANEOUS BEFORE MEALS. Qty = 1000 Start taking the following new medications: cefTRIAXone (ROCEPHIN) 2 GRAM VIAL 2,000 MILLIGRAM INTRAVENOUS DAILY. Days = 42 No Refills INSULIN GLARGINE (LANTUS) 100 UNIT/ML VIAL 25 UNIT SUBCUTANEOUS EVERY MORNING. Days = 30 No Refills INSULIN GLARGINE (LANTUS) 100 UNIT/ML VIAL 30 UNIT SUBCUTANEOUS EVERY EVENING. Days = 30 No Refills metroNIDAZOLE (FLAGYL) 500 MG TAB 500 MILLIGRAM ORAL THREE TIMES A DAY. Qty = 127 No Refills DAPTOmycin (CUBICIN) 500 MG VIAL 1,000 MILLIGRAM INTRAVENOUS DAILY. Days = 42 No Refills Discharge Instructions PCP Discharge to: Home Health wPlan of Care Additional Discharge Routines: PCP Follow-Up, Co nsultant Follow-Up Diet: Resume Home Diet/Feeds Activity: As Tolerated Prescriptions: on chart Discharge management: greater than 30 mins Follow-up Appointments PCP follow-up: PCP: No Primary or Family Physician PCP follow up timeframe: In 3 days Attending Physician: Attending Physician: Prakash Larsen MD Consulting provider 1: Provider 1: Hector Garcia MD Specialty: ORTHOEDICS Consult follow up timeframe: In 1-2 weeks Electronically Signed by Prakash Larsen MD on at 1849 RPT #: [id number] END OF REPORT 2022-02-12 11:56:00-00:00 [facility] Hospitalist Progress Note REPORT#:[id number] REPORT STATUS: Signed DATE:02/12/22 TIME:1156 PATIENT: HARLEEN MANZANO UNIT #: [id number] ROOM/BED: [place] [address] : 80 AGE: 41 SEX: F ATTEND: Cy Maya MD ADM AUTHOR: Prakash Larsen MD * ALL edits or amendments must be made on the wst.cn/computer document * Subjective Chief complaint: left foot wound Review of Systems Respiratory: Denies: SOB. Cardiovascular: Denies: chest pain. GI: Denies: nausea, vomiting. Objective General VS/I O: Vital Signs: Date Time Temp Pulse Resp B/P B/P Pulse O2 O2 F low FiO2 Mean Ox Delivery Rate 02/12 1139 36.7 85 15 155/86 109.2 100 Room air 02/12 0630 36.9 90 16 124/78 93.0 99 Room air 02/12 0443 37.0 95 14 106/68 80.4 97 Room air 02/11 2251 37.0 99 15 133/80 97.5 98 Room air 02/11 1907 36.9 96 15 131/84 99.4 99 Room air 02/11 1604 37.1 88 16 127/84 98.5 100 Room air PATIENT WEIGHT: Weight (lb): Weight (oz): Weight (kg): 165.909 Physical Exam General appearance: alert, awake Cardiovascular: normal capillary refill, normal heart sounds, regular rate rhythm Respiratory: aerating well, clear to auscultatio n, symmetric expansion, no distress Abdomen: non-tender, normal bowel sounds , soft, no distention, no guarding, no mass/organomegaly, no rebound Genitourinary: no flank pain Extremities: moves all, LLE open wound/edema Musculoskeletal: normal inspection Neuro/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 OPERATOR: alert, oriented X 3, normal speech, n o motor deficits, no sensory deficits Wound/incision: Location: left 4th and 5th toe Site Condition: necrotic tissue, odor Diagnosis, Assessment Plan Free Text DxA P Notes Free text DxA P notes: #Wound of left foot, suspicious gas gangrene ortho consulted Appreciate recommendations Antibiotics mgmg per ID blood culture negative to date MRI of the left foot noted, fluid noted 4.5 cm, no need for any surgical intervention this admission orthopedics #Osteomyelitis of left DM foot ortho consulted Appreciate surgery On IV Antibiotics #Type I diabetes mellitus, uncontrolled, with ne uropathy ACHS SSI #UTI (urinary tract infection) on antibiotics #Obesity Lifestyle modification #Renal insufficiency monitor renal parameter Caution with nephrotoxic meds Disposition Patient improved, conditional discharge once yves e IV antibiotics are set up Pending on antibiotics set up VTE ppx: Lovenox Full code Electronically Signed by Prakash Larsen MD on at 0758 RPT #: [id number] END OF REPORT 2022-02-12 10:07:00-00:00 [facility] ([facility]) Infectious Dis. Progress Note REPORT#:[id number] REPORT STATUS: Signed DATE:02/12/22 TIME:1007 PATIENT: HARLEEN MANZANO UNIT #: [id number] ROOM/BED: [place] [address] : 80 AGE: 41 SEX: F ATTEND: Tee Maya MD ADM AUTHOR: Pro Bustamante MD * ALL edits or amendments must be made on the el [employer]/computer document * Subjective Chief complaint: Foot infection HPI: Last WBC was normal, pt is on vancomycin, ceftri axone and metronidazole. Review of Systems Constitutional: Denies: fever. Objective General VS/I O: Vital Signs Date Temp Pulse Resp B/P B/P Mean Pulse Ox FiO2 02/11-02/12 36.9-37.1 88-99 14-16 106-133/64-84 80.4-99.4 97-100 Last Documented: Result Date Time Pulse Ox 99 02/12 0630 B/P 124/78 02/12 0630 B/P Mean 93.0 02/12 0630 O2 Delivery Room air 02/12 06 Temp 36.9 02/12 0630 Pulse 90 02/12 0630 Resp 16 02/12 0630 Vital Signs: Date Time Temp Pulse Resp B/P B/P Pulse O2 O2 F low FiO2 Mean Ox Delivery Rate 02/12 630 36.9 90 16 124/78 93.0 99 Room air 02/12 0443 37.0 95 14 106/68 80.4 97 Room air 02/11 2251 37.0 99 15 133/80 97.5 98 Room air 02/11 1907 36.9 96 15 131/84 99.4 99 Room air 02/11 1604 37.1 88 16 127/84 98.5 100 Room air 02/11 1150 36.9 90 15 113/64 80.4 99 Room air PATIENT WEIGHT: Weight (lb): Weight (oz): Weight (kg): 165.909 Physical Exam General appearance: alert, awake, oriented Head/Eyes: atraumatic, normocephalic Cardiovascular: regular rate rhythm Respiratory: aerating well, no distress Abdomen: non-tender, soft, no distention Extremities: Left foot with dressing Neuro/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 OPERATOR: alert, oriented X 3, normal speech Diagnosis, Assessment Plan Free Text A P: No new CBC Imaging X-ray left foot reviewed 02/07 MRI left foot reviewed 02/09 Assessment 1. Left foot soft tissue infection with osteomye litis. 2. Recent E. coli bacteremia (S=ceftriaxone, Jazzmine syn). 3. Previous wound cx showed E. coli, VRE (R=ampi cillin) and MSSE. 4. S/p I D on 11/27/21 and left 5th toe ray amput ation and debridement 4th toe MTP joint 12/01/21. 5. Acute renal insufficiency. 3. Uncontrolled DM with peripheral neuropathy. 5. Obesity, severe. 6. UTI - E. coli Plan 1. Vancomycin and ceftriaxone (day 6) with metro nidazole (day 5). 2. For discharge, pt can go on ceftriaxo ne 2 gm IV q24h and daptomycin 1 gm IV q24h for 4-6 weeks. 3. Case discussed with Dr. Darlene garcia. He recommends conservative management as the gas observed in the foot is due to an op en wound and the fluid collection does not look infected. 4. Monitor CBC and kidney function. 5. Recommend removing old PICC line and placing a new one before discharge. 6. CM consulted to arrange home IV abxs. 7. Pt can be discharged from ID standpoint. at 1010 RPT #: [id number] END OF REPORT 2022-02-11 20:50:00-00:00 [facility] ([facility]) Orthopaedic Progress Note REPORT#:[id number] REPORT STATUS: Signed DATE:02/11/22 TIME:2049 PATIENT: HARLEEN MANZANO UNIT #: [id number] ROOM/BED: [place] [address] : 80 AGE: 41 SEX: F ATTEND: Tee Maya MD ADM AUTHOR: Hector Garcia MD * ALL edits or amendments must be made on the el [employer]/computer document * Subjective Chief complaint: had long discussion with jamaica peguero, did not have silvadene dressing changes until today, fluid not abscess but fluid from wound, n o surgical debridement indications, will follow Electronically Signed by Hector Garcia MD on at 2059 RPT #: [id number] END OF REPORT 2022-02-11 13:58:00-00:00 [facility] ([facility]) Infectious Dis. Progress Note REPORT#:[id number] REPORT STATUS: Signed DATE:02/11/22 TIME:1357 PATIENT: HARLEEN MANZANO UNIT #: [id number] ROOM/BED: [place] [address] : 80 AGE: 41 SEX: F ATTEND: Cy Maya MD ADM AUTHOR: Pro Bustamante MD * ALL edits or amendments must be made on the el [employer]ronic/computer document * Subjective Chief complaint: Foot infection HPI: Last WBC was normal, pt is on vancomycin, ceftri axone and metronidazole. Review of Systems Constitutional: Denies: fever. Objective Physical Exam Head/Eyes: atraumatic, normocephalic Cardiovascular: regular rate rhythm Respiratory: aerating well, no distress Abdomen: non-tender, soft, no distention Extremities: Left foot with dressing Neuro/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 OPERATOR: alert, oriented X 3, normal speech Diagnosis, Assessment Plan Free Text A P: No new CBC Imaging X-ray left foot reviewed 02/07 MRI left foot reviewed 02/09 Assessment 1. Left foot soft tissue infection with osteomye litis. 2. Recent E. coli bacteremia (S=ceftriaxone, Jazzmine syn). 3. Previous wound cx showed E. coli, VRE (R=ampi cillin) and MSSE. 4. S/p I D on 11/27/21 and left 5th toe ray amput ation and debridement 4th toe MTP joint 12/01/21. 5. Acute renal insufficiency. 3. Uncontrolled DM with peripheral neuropathy. 5. Obesity, severe. 6. UTI - E. coli Plan 1. Vancomycin and ceftriaxone (day 5) and metron idazole (day 4). 2. For discharge, pt could g o on ceftriaxone 2 gm IV q24h and daptomycin 1 gm IV q24h for 6 weeks plus metronidazole for 4 weeks. 3. Case discussed with Dr. Darlene garcia. He recommends conservative management as the gas observed in the foot is due to an op en wound and the fluid collection does not look infected. 4. Monitor CBC, vanco levels and kidney function . 5. Recommend removing old PICC line and placing a new one before discharge. 6. CM consulted to arrange home IV abxs. at 2216 [facility] #: [id number] END OF REPORT 2022-02-11 11:58:00-00:00 [facility] Hospitalist Progress Note REPORT#:[id number] REPORT STATUS: Signed DATE:02/11/22 TIME:1158 PATIENT: HARLEEN MANZANO UNIT #: [id number] ROOM/BED: [address]1 : 80 AGE: 41 SEX: F ATTEND: Tee Maya MD ADM AUTHOR: Prakash Larsen MD * ALL edits or amendments must be made on the [employer]/computer document * Subjective Chief complaint: left foot wound Review of Systems Respiratory: Denies: SOB. Cardiovascular: Denies: chest pain. GI: Denies: nausea, vomiting. Objective General VS/I O: Vital Signs: Date Time Temp Pulse Resp B/P B/P Pulse O2 O2 F low FiO2 Mean Ox Delivery Rate 02/11 1150 36.9 90 15 113/64 80.4 99 Room air 02/11 0629 37.0 89 15 120/73 88.5 98 Room air 02/11 0424 36.8 93 16 102/66 78.5 98 02/10 2336 36.4 92 16 113/71 85.2 100 02/10 2032 37.0 93 15 124/77 92.6 100 Room air 02/10 1653 37.0 89 14 133/81 98.5 99 Room air 24 hour I O ending at 0700: 02/11 0700 02/10 1900 Intake Total Output Total Balance Number Voids 1 PATIENT WEIGHT: Weight (lb): Weight (oz): Weight (kg): 165.909 Physical Exam General appearance: alert, awake Cardiovascular: normal capillary refill, normal heart sounds, regular rate rhythm Respiratory: aerating well, clear to auscultatio n, symmetric expansion, no distress Abdomen: non-tender, normal bowel sounds , soft, no distention, no guarding, no mass/organomegaly, no rebound Genitourinary: no flank pain Extremities: moves all, LLE open wound/edema Musculoskeletal: normal inspection Neuro/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 OPERATOR: alert, oriented X 3, normal speech, n o motor deficits, no sensory deficits Wound/incision: Location: left 4th and 5th toe Site Condition: necrotic tissue, odor Diagnosis, Assessment Plan Free Text DxA P Notes Free text DxA P notes: #Wound of left foot, suspicious gas gangrene ortho consulted Appreciate recommendations Antibiotics mgmg per ID blood culture negative to date MRI of the left foot noted, fluid noted 4.5 cm, no need for any surgical intervention this admission orthopedics #Osteomyelitis of left DM foot ortho consulted Appreciate surgery On IV Antibiotics #Type I diabetes mellitus, uncontrolled, with ne uropathy ACHS SSI #UTI (urinary tract infection) on antibiotics #Obesity Lifestyle modification #Renal insufficiency monitor renal parameter Caution with nephrotoxic meds VTE ppx: Lovenox Full code Electronically Signed by Prakash Larsen MD on at 1159 RPT #: [id number] END OF REPORT 2022-02-11 08:31:00-00:00 [facility] Prog.Note-Vancomycin REPORT#:[id number] REPORT STATUS: Signed DATE:02/11/22 TIME:830 PATIENT: HARLEEN MANZANO UNIT #: [id number] ROOM/BED: [place] [address] : 80 AGE: 41 SEX: F ATTEND: Tee Maya MD ADM AUTHOR: Jose Grace [facility] * ALL edits or amendments must be made on the wst.cn/computer document * Vancomycin Vancomycin Medication Therapy Goal: AUC 400-600 mcg*hr/mL Indication for treatment: LEFT FOOT OSTEOMYELITIS VS and I/O: Vital Signs Date Temp Pulse Resp B/P B/P Mean Pulse Ox FiO2 02/08-02/11 36.4-37.0 85-106 14-16 102-165/66-97 78.5-119.8 98-100 72 hours ending at 0700 02/11 1900 02/10 1900 02/08 1900 Intake 500 500 Total Output Total Balance 500 500 Intake, 500 500 Oral Number 1 Voids 72 Hour I O Total 02/11 07 Intake Total 500 500 Output Total Balance 500 500 Labs: Laboratory Tests: 02/11 2030 1206 Toxicology Vancomycin Peak (20 - 40 mcG/ML) 37.9 Vancomycin Trough (10 - 20 mcG/ML) 29.9 H Random Vancomycin (5 - 40 mcG/ML) 22.1 Treatment plan: consult Rationale: 41 y/o 165kg female with h/o left foot osteo with abscess and E. Coli bacteremia continuing vancomycin/ceftriaxone/metron idazole. ID following, recs amputation or at least debridement as abx alone are unlikel y to cure infection. LABS * leukocytosis resolved * SCr 1, CrCL >100 * urine culture grew E. Coli (pansensitive) * blood cultures show NGTD * calculated vanc AUC on 1500mg q12h was 816 (goal 400-600), random level this AM is 22.1. PLAN: Will hold vancomycin today as well and ord er random level with AM labs. Calculated revised dose of vancomycin 10 00mg q12h would give an AUC of 544 and revised trough of 19.3. If random level is <19 t omorrow will start vancomycin 1000mg q12h. Pharmacy will continue to follow up! at 0832 RPT #: [id number] END OF REPORT 2022-02-10 10:29:00-00:00 [facility] ([facility]) Infectious Dis. Progress Note REPORT#:[id number] REPORT STATUS: Signed DATE:02/10/22 TIME:1029 PATIENT: HARLEEN MANZANO UNIT #: [id number] ROOM/BED: [place] [address] : 80 AGE: 41 SEX: F ATTEND: Tee Maya MD ADM AUTHOR: Donna Vieyra MD * ALL edits or amendments must be made on the el [employer]/computer document * Subjective HPI: 41-year-old morbidly obese f emale with h/o left foot osteomyelitis with abscess and E. coli bacteremia, s/p left 5th toe ray amputation and debridement 4th toe MTP joint 12/01/21 who was di scharged to home with ceftriaxone and daptomycin for 6 weeks til 01/05/22, and oral metronidazole til 12/21/21. I spoke with the pt after discharge. She receive d the antibiotic bags at home but let the antbiotic bags . She informed esau mcclure that she did not take the antibiotics (unclear for how long) fort personal reas ons. I explained her that it was extremely important to take the antibiotics otherwise she would lose her foot, develop sepsis or . I also spoke with Dr. Hernandez who informed me t hat she had missed the apppointments with him. I explained to her that the appointments with Dr. Hernandez were critical but still she did not present to h er appointments. Pt now presents to the ED with worsening left f oot wound with foul smell for 4 weeks. Pt still has a PICC line. X-ray of the foot show ed subcutaneous emphysema/gas gangrene (4th, 5th) and progression of osteomyel itis (4th). events noted no new complaints Review of Systems Constitutional: Denies: fever. Objective General VS/I O: Vital Signs Date Temp Pulse Resp B/P B/P Mean Pulse Ox FiO2 02/09-02/10 36.7-37.0 90-106 14-16 119-154/75-91 91.4-112.3 100 Last Documented: Result Date Time Pulse Ox 100 02/10 0714 B/P 154/91 02/10 0714 B/P Mean 112.3 02/10 0714 O2 Delivery Room air 02/10 07 Temp 37.0 02/10 0714 Pulse 106 02/10 0714 Resp 14 02/10 0714 Vital Signs: Date Time Temp Pulse Resp B/P B/P Pulse O2 O2 F low FiO2 Mean Ox Delivery Rate 02/10 07 37.0 106 14 154/91 112.3 100 Room ai r 02/10 0508 36.8 90 15 119/78 91.4 100 02/09 2347 36.7 92 16 130/83 98.4 100 02/09 1842 36.9 94 16 142/85 103.9 100 02/09 1653 37.0 100 14 126/76 92.5 100 Room air 02/09 1120 36.9 97 14 128/75 92.7 100 Room air 24 hour I O ending at 0700: 02/10 0700 02/09 1900 Intake Total 500 Output Total Balance 500 Intake, Oral 500 PATIENT WEIGHT: Weight (lb): Weight (oz): Weight (kg): 165.909 Physical Exam General appearance: awake Head/Eyes: atraumatic, normocephalic ENT: moist mucosal membranes Neck: no masses or swelling Cardiovascular: regular rate rhythm Respiratory: aerating well, no distress Abdomen: non-tender, soft, no distention Genitourinary: no flank pain Extremities: Left foot with dressing Neuro/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 OPERATOR: alert, oriented X 3, normal speech Skin: no rash Psychiatry: normal affect, normal judgment/insig ht Diagnosis, Assessment Plan Free Text A P: Laboratory Tests Laboratory Tests 02/09/22 0410: [Embedded Image Not Available] 02/07/222108: [Embedded Image Not Available] 02/07/222053: [Embedded Image Not Available] Imaging X-ray left foot reviewed 02/07 Assessment 1. Left foot severe soft tissue infection with o steomyelitis. noted MRI 2. Recent E. coli bacteremia (S=ceftriaxone, Jazzmine syn). 3. Previous wound cx showed E. coli, VRE (R=ampi cillin) and MSSE. 4. S/p I D on 11/27/21 and left 5th toe ray amput ation and debridement 4th toe MTP joint 12/01/21. 5. Acute renal insufficiency. 3. Uncontrolled DM with peripheral neuropathy. 5. Obesity, severe. 6. UTI- E.coli Plan 1. Pt has major issues with compliance, may not be a candidate for home IV abx unless she committs to treatment plan this time 2. recommend amputation or al least debridement as antibiotics alone are unlikely to cure her infection. also there are no optimal po Ab to treat the VRE usp it is also ampicillin resistant MRI (osteomyelitis involving the distal 5th meta tarsal and around the 4th MTP joint as above. 4.5 cm fluid collection at the dorsal lateral as pect of the forefoot with 2 sinus tracts). 3. Vancomycin and ceftriaxone for now (day 4). 4. on metronidazole (day 3). 5. Follow vancomycin levels. 6. Monitor CBC and kidney function. 7. Ortho consult noted. Pt may be amenable to debidement if needed will await ortho recs 8. Wound care consult. 9. Recommend removing old PICC line before disch arge. Electronically Signed by Donna Vieyra MD on 06/02 at 1647 RPT #: [id number] END OF REPORT 2022-02-09 14:04:00-00:00 [facility] ([facility]) Hospitalist Progress Note REPORT#:[id number] REPORT STATUS: Signed DATE:02/09/22 TIME:1403 PATIENT: HARLEEN MANZANO UNIT #: [id number] ROOM/BED: [place] [address] : 80 AGE: 41 SEX: F ATTEND: Tee Maya MD ADM AUTHOR: Prakash Larsen MD * ALL edits or amendments must be made on the [email or web address].cn/computer document * Subjective Chief complaint: left foot wound Review of Systems Respiratory: Denies: productive cough (sputum), SOB. Cardiovascular: Denies: chest pain. GI: Denies: nausea, vomiting. Objective General VS/I O: Vital Signs: Date Time Temp Pulse Resp B/P B/P Pulse O2 O2 F low FiO2 Mean Ox Delivery Rate 02/09 1120 36.9 97 14 128/75 92.7 100 Room air 02/09 0638 37.0 96 14 128/74 91.6 99 Room air 02/09 0429 36.9 103 16 136/82 99.8 100 02/08 2327 36.8 96 16 134/83 100.4 100 02/08 2107 36.8 102 16 165/97 119.8 100 02/08 1640 36.5 98 14 149/92 111.1 100 Room air 24 hour I O ending at 0700: 02/09 0700 02/08 1900 Intake Total 500 Output Total Balance 500 Intake, Oral 500 PATIENT WEIGHT: Weight (lb): Weight (oz): Weight (kg): 165.909 Physical Exam General appearance: alert, awake Cardiovascular: normal capillary refill, normal heart sounds, regular rate rhythm Respiratory: aerating well, clear to auscultatio n, symmetric expansion, no distress Abdomen: non-tender, normal bowel sounds , soft, no distention, no guarding, no mass/organomegaly, no rebound Genitourinary: no flank pain Extremities: moves all, LLE open wound/edema Musculoskeletal: normal inspection Neuro/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 OPERATOR: alert, oriented X 3, normal speech, n o motor deficits, no sensory deficits Wound/incision: Location: left 4th and 5th toe Site Condition: necrotic tissue, odor Diagnosis, Assessment Plan Free Text DxA P Notes Free text DxA P notes: #Wound of left foot, suspicious gas gangrene ortho consulted Appreciate recommendations Antibiotics mgmg per ID blood culture pending MRI of the left foot noted, fluid noted 4.5 cm, pending further recommendations from Ortho #Osteomyelitis of left DM foot ortho consulted Appreciate surgery On IV Antibiotics #Type I diabetes mellitus, uncontrolled, with ne uropathy ACHS SSI #UTI (urinary tract infection) on antibiotics #Obesity Lifestyle modification #Renal insufficiency monitor renal parameter Caution with nephrotoxic meds VTE ppx: Lovenox Full code Electronically Signed by Prakash Larsen MD on at 1405 RPT #: [id number] END OF REPORT 2022-02-09 10:27:00-00:00 [facility] ([facility]) Infectious Dis. Progress Note REPORT#:[id number] REPORT STATUS: Signed DATE:02/09/22 TIME:1027 PATIENT: HARLEEN MANZANO UNIT #: [id number] ROOM/BED: [place] [address] : 80 AGE: 41 SEX: F ATTEND: Tee Maya MD ADM AUTHOR: Donna Vieyra MD * ALL edits or amendments must be made on the [email or web address].cn/computer document * Subjective HPI: 41-year-old morbidly obese f emale with h/o left foot osteomyelitis with abscess and E. coli bacteremia, s/p left 5th toe ray amputation and debridement 4th toe MTP joint 12/01/21 who was di scharged to home with ceftriaxone and daptomycin for 6 weeks til 01/05/22, and oral metronidazole til 12/21/21. I spoke with the pt after discharge. She receive d the antibiotic bags at home but let the antbiotic bags . She informed esau mcclure that she did not take the antibiotics (unclear for how long) fort personal reas ons. I explained her that it was extremely important to take the antibiotics otherwise she would lose her foot, develop sepsis or . I also spoke with Dr. Hernandez who informed me t hat she had missed the apppointments with him. I explained to her that the appointments with Dr. Hernandez were critical but still she did not present to h er appointments. Pt now presents to the ED with worsening left f oot wound with foul smell for 4 weeks. Pt still has a PICC line. X-ray of the foot show ed subcutaneous emphysema/gas gangrene (4th, 5th) and progression of osteomyel itis (4th). events noted Review of Systems Constitutional: Denies: fever. Objective General VS/I O: Vital Signs Date Temp Pulse Resp B/P B/P Mean Pulse Ox FiO2 02/08-02/09 36.5-37.0 85-103 14-16 128-165/74-97 91.6-119.8 99-100 Last Documented: Result Date Time Pulse Ox 99 02/09 0638 B/P 128/74 02/09 0638 B/P Mean 91.6 02/09 0638 O2 Delivery Room air 02/09 638 Temp 37.0 02/09 06 Pulse 96 02/09 06 Resp 14 02/09 06 Vital Signs: Date Time Temp Pulse Resp B/P B/P Pulse O2 O2 F low FiO2 Mean Ox Delivery Rate 02/09 06 37.0 96 14 128/74 91.6 99 Room air 02/09 0429 36.9 103 16 136/82 99.8 100 02/08 2327 36.8 96 16 134/83 100.4 100 02/08 2107 36.8 102 16 165/97 119.8 100 02/08 1640 36.5 98 14 149/92 111.1 100 Room air 02/08 1054 36.7 85 14 142/84 103.2 100 Room air 24 hour I O ending at 0700: 02/09 0700 02/08 1900 Intake Total 500 Output Total Balance 500 Intake, Oral 500 PATIENT WEIGHT: Weight (lb): Weight (oz): Weight (kg): 165.909 Physical Exam General appearance: awake Head/Eyes: atraumatic, normocephalic ENT: moist mucosal membranes Neck: non-tender, normal thyroid, no masses or s welling Cardiovascular: regular rate rhythm Respiratory: aerating well, no distress Abdomen: non-tender, normal bowel sounds, no dis tention Genitourinary: no flank pain Extremities: Left foot with dressing Neuro/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 OPERATOR: alert, oriented X 3, normal speech Skin: no rash Psychiatry: normal affect, normal judgment/insig ht, normal mood Diagnosis, Assessment Plan Free Text A P: Laboratory Tests 02/07/222108: [Embedded Image Not Available] 02/07/222053: [Embedded Image Not Available] Imaging X-ray left foot reviewed 02/07 Assessment 1. Left foot severe soft tissue infection with o steomyelitis. noted MRI 2. Recent E. coli bacteremia (S=ceftriaxone, Jazzmine syn). 3. Previous wound cx showed E. coli, VRE (R=ampi cillin) and MSSE. 4. S/p I D on 11/27/21 and left 5th toe ray amput ation and debridement 4th toe MTP joint 12/01/21. 5. Acute renal insufficiency. 3. Uncontrolled DM with peripheral neuropathy. 5. Obesity, severe. Plan 1. Pt has major issues with compliance, I do not think she is a candidate for home IV abx therapy as she changed her mind and did not want to have IV abxs after discharge and she let the antibioti c bags that were sent to her home. 2. recommend amputation or al least debridement as antibiotics alone are unlikely to cure her infection. also there are no optimal po Ab to treat the VRE 3. Vancomycin and ceftriaxone for now (day 3). 4. on metronidazole (day 2). 5. Follow vancomycin levels. 6. MRI left foot noted. 7. Monitor CBC and kidney function. 8. Ortho consult noted. Pt may be amenable to debidement if needed 9. Wound care consult. 10. Recommend removing old PICC line before disc harge. 11. follow urine cx Electronically Signed by Donna Vieyra MD on 05/02 at 1553 [facility] #: [id number] END OF REPORT 2022-02-08 11:36:00-00:00 [facility] ([facility]) Infect Disease Consult Note REPORT#:[id number] REPORT STATUS: Signed DATE:02/08/22 TIME:113 PATIENT: HARLEEN MANZANO UNIT #: [id number] ROOM/BED: [place] [address] : 80 AGE: 41 SEX: F ATTEND: Tee Maya MD ADM AUTHOR: Pro Bustamante MD * ALL edits or amendments must be made on the [email or web address]/computer document * History of Present Illness Reason for consult: Foot infection PCP: PCP: No Primary or Family Physician HPI: 41-year-old morbidly obese f emale with h/o left foot osteomyelitis with abscess and E. coli bacteremia, s/p left 5th toe ray amputation and debridement 4th toe MTP joint 12/01/21 who was di scharged to home with ceftriaxone and daptomycin for 6 weeks til 01/05/22, and oral metronidazole til 12/21/21. I spoke with the pt after discharge. She receive d the antibiotic bags at home but let the antbiotic bags . She informed esau mcclure that she did not take the antibiotics (unclear for how long) fort personal reas ons. I explained her that it was extremely important to take the antibiotics otherwise she would lose her foot, develop sepsis or . I also spoke with Dr. Hernandez who informed me t hat she had missed the apppointments with him. I explained to her that the appointments with Dr. Hernandez were critical but still she did not present to h er appointments. Pt now presents to the ED with worsening left f oot wound with foul smell for 4 weeks. Pt still has a PICC line. X-ray of the foot show ed subcutaneous emphysema/gas gangrene (4th, 5th) and progression of osteomyel itis (4th). History - Adult longitudinal Past medical history: Reports: Diabetes mellitus. 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 Additional surgical history: S/p left 5th toe ray amputation and debridement 4th toe MTP joint 12/01/21 Additional family history: Reviewed not significant in this patient's care Alcohol use: Denies EtOH use Drug use: Denies recreational drugs Smoking status for patients 13 years old or olde r: Never Smoker Allergies: Coded Allergies: Sulfa (Sulfonamide Antibiotics) (Mild, HIVES ) Review of Systems Constitutional: Reports: fatigue. Skin: Denies: rash. Allergy/Immun: Denies itching Eyes: Denies discharge ENT: Denies: throat pain. Respiratory: Denies: productive cough (sputum). Cardiovascular: Denies: chest pain. GI: Denies: abdominal pain. : Denies: dysuria. Musculoskeletal: Reports: other (Left foot wound). Neuro: Denies: headache. Objective General VS/I O: Vital Signs Date Temp Pulse Resp B/P B/P Mean Pulse Ox FiO 2 02/07-02/08 36.7-36.9 85-103 14-19 139-160/73-8 9 95-112.4 98-100 Last Documented: Result Date Time Pulse Ox 100 02/08 1054 B/P 142/84 02/08 1054 B/P Mean 103.2 02/08 1054 O2 Delivery Room air 02/08 1054 Temp 36.7 02/08 1054 Pulse 85 02/08 1054 Resp 14 02/08 1054 Vital Signs: Date Time Temp Pulse Resp B/P B/P Pulse O2 O2 F low FiO2 Mean Ox Delivery Rate 02/08 1054 36.7 85 14 142/84 103.2 100 Room air 02/08 0721 36.7 95 14 143/83 103.1 100 Room air 02/08 0144 36.9 103 18 160/89 112.4 100 Room a ir 02/07 2330 98 16 155/74 101 98 02/07 2230 90 17 139/73 95 100 02/07 2130 99 17 142/76 98 100 02/07 1958 36.8 97 19 143/82 102 100 Room air 24 hour I O ending at 0700: 02/08 0700 02/07 1900 Intake Total Output Total Balance Patient 165.909 kg Weight Weight Stated/Reported Measurement Method PATIENT WEIGHT: Weight (lb): Weight (oz): Weight (kg): 165.909 Physical Exam General appearance: obese, alert, awake, oriente d, conversational, no respiratory distress Head/Eyes: atraumatic, clear cornea, EOMI, maria l l conjunctiva/sclera, normal eyelids/periorb, normocephalic ENT: moist mucosal membranes, normal nose Neck: full range of motion, non-tender, supple/n o meningismus, no masses or swelling Cardiovascular: regular rate rhythm Respiratory: aerating well, symmetric expansion, no distress Abdomen: non-tender, normal bowel sounds, soft, no CVA tenderness, no distention , no guarding Genitourinary: no flank pain Extremities: Left foot wound with foul smell, wi th dressing Neuro/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 OPERATOR: alert, oriented X 3, CNII-XII intact, normal speech Skin: normal turgor, no rash Psychiatry: normal affect, normal judgment/insig ht, normal mood Diagnosis, Assessment Plan Free Text DxA P Notes Free text DxA P notes: Laboratory Tests 02/07/222108: [Embedded Image Not Available] 02/07/222053: [Embedded Image Not Available] Imaging X-ray left foot reviewed 02/07 Assessment 1. Left foot severe soft tissue infection with o steomyelitis. 2. Recent E. coli bacteremia (S=ceftriaxone, Jazzmine syn). 3. Previous wound cx showed E. coli, VRE (R=ampi cillin) and MSSE. 4. S/p I D on 11/27/21 and left 5th toe ray amput ation and debridement 4th toe MTP joint 12/01/21. 5. Acute renal insufficiency. 3. Uncontrolled DM with peripheral neuropathy. 5. Obesity, severe. Plan 1. Pt has major issues with compliance, I do not think she is a candidate for home IV abx therapy as she changed her mind and did not want to have IV abxs after discharge and she let the antibioti c bags that were sent to her home. 2. I recommend amputation or al least debridemen t as antibiotics alone are unlikely to cure her infection. 3. Vancomycin and ceftriaxone for now (day 2). 4. Add metronidazole. 5. Follow vancomycin levels. 6. MRI left foot. 7. Monitor CBC and kidney function. 8. Ortho sx consult. 9. Wound care consult. 10. Recommend removing old PICC line before disc harge. Thank you for this consult. at 1530 RPT #: [id number] END OF REPORT 2022-02-08 10:56:00-00:00 [facility] ([facility]) Hospitalist Progress Note REPORT#:[id number] REPORT STATUS: Signed DATE:02/08/22 TIME:1055 PATIENT: HARLEEN MANZANO UNIT #: [id number] ROOM/BED: [place] [address] : 80 AGE: 41 SEX: F ATTEND: Tee Maya MD ADM AUTHOR: Stephy Benitez MSN * ALL edits or amendments must be made on the [email or web address]/computer document * Stephy Benitez 02/08/22 1056: Subjective Chief complaint: left foot wound and odor HPI: 41-year-old morbidly obese female with PMSHx lef t diabetic foot osteomyelitis with abscess and sepsis with E. coli bacteremia, s/p left 5th toe ray amputation and debridement 4th toe MTP joint 12/01/21 who was discharged to home health with IV antibiotics Ceftriaxone 2 gm IV q24h and daptomycin 1 gm IV q24h for 6 weeks til 01/05/22, and oral metron idazole til 12/21/21 presented to the ED with a left foot odor for the past 4 weeks. Patient complete d antibiotics regimen. Still PICC line present. After home health ser vice completion, patient quit changing the dressing or providing any care to her foot a pproximately 4 weeks ago. Patient has a severe appeari ng infection on her proximal left lateral foot with a string gauze hanging out that the patient repo rts has been in there over 5 weeks. The foot has a malodor coming from it. Th ere is no wound drainage at this time. X ray of the foot shows open wound (5th) with subcutaneous emphysema /gas gangrene (4th, 5th) and progression of oste omyelitis (4th). Patient was not septic. Ceftriaxone/vancomycin given at ED. Orthopedic consulted. Also found to have UTI. Patient i s admitted for further evaluation and management of foot gangrene. Review of Systems Skin: Reports: swelling. Musculoskeletal: Extremity pain: Reports: left lower. Extremity swelling: Reports: left lower. All systems rev neg: except as marked Objective General Medications: Active Meds + DC'd Last 24 Hrs Non-Formulary Medication (VANCOMYCIN TROUGH BISI NDER) 1 EACH ONCE ONE MISC Non-Formulary Medication (VANCOMYCIN PEAK REMIND ER) 1 EACH ONCE ONE MISC Enoxaparin Sodium (lovENOX) 40 MG Q12HR SUBQ Vancomycin HCl (Vancomycin HCl) 1,500 MG Q12HR I V Sodium Chloride (0.9% Sodium Chloride) 250 ML Sterile Water (WATER FOR INJECTION) 20 ML DAILY IV Ceftriaxone Sodium (ROCEPHIN) 2,000 MG DAILY IV Vancomycin HCl (VANCOMYCIN HCL) 1,000 MG Q12HR I V (DC) Sodium Chloride (0.9% Sodium Chloride) 250 ML Insulin Human Lispro (HUMALOG) S/SCALE LOW AC HS SUBQ Dextrose/Water (Dextrose 50% W SYRINGE) 50 ML DIR PRN IV (CKD) Docusate Sodium (COLACE) 100 MG Q12H PRN PRN PO Miscellaneous Information (VANCOMYCIN PHARMACY T O DOSE) PHARMACY TO DOSE REMINDER ASDIR IV Morphine Sulfate (morphine Sulfate) 2 MG Q3H PRN PRN IV Ondansetron HCl (ZOFRAN) 4 MG Q4H PRN PRN IV Vancomycin HCl (Vancomycin HCl) 1,500 MG ONCE@03 00 IV (DC) Sodium Chloride (0.9% Sodium Chloride) 250 ML Vancomycin HCl (VANCOMYCIN HCL) 1,[address] A IV (DC) Sodium Chloride (0.9% Sodium Chloride) 250 ML Ceftriaxone Sodium (ROCEPHIN) 1,000 MG X1ED STA IV (DC) Sterile Water (WATER FOR INJECTION) 10 ML Sodium Chloride (0.9% Sodium Chloride) 1,000 ML X1ED STA IV (DC) Physical Exam General appearance: alert, awake, oriented Head/Eyes: atraumatic, normal conjunctiva/sclera , normal eyelids/periorb., normocephalic, PERRL ENT: moist mucosal membranes Cardiovascular: normal capillary refill, normal heart sounds, regular rate rhythm Respiratory: aerating well, clear to auscultatio n, symmetric expansion, no distress Abdomen: non-tender, normal bowel sounds , soft, no distention, no guarding, no mass/organomegaly, no rebound Extremities: moves all, LLE open wound/edema Neuro/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 OPERATOR: alert, oriented X 3, normal speech, n o motor deficits, no sensory deficits Wound/incision: Location: left 4th and 5th toe Site Condition: necrotic tissue, odor Psychiatry: normal affect Results Findings/Data: Laboratory Tests 02/08 02/08 02/07 02/07 0718 0149 2108 2010 Chemistry Sodium (134 - 147 mmol/L) 135 Potassium (3.4 - 5.0 mmol/L) 4.6 Chloride (100 - 108 mmol/L) 102 Carbon Dioxide (21 - 32 mmol/L) 24 Anion Gap (4.0 - 15.0 GAP calc) 9.0 BUN (7 - 18 MG/DL) 25 H Creatinine (0.6 - 1.0 MG/DL) 1.2 H Glomerular Filtr Rate (>60 estGFR) >=60 max est imate Glucose (70 - 110 MG/DL) 137 H POC Glucose (70 - 110 mg/dL) 157 H 156 H Lactic Acid (0.4 - 2.0 mmol/L) 1.7 Calcium (8.5 - 10.1 MG/DL) 9.0 Total Bilirubin (0.2 - 1.2 MG/DL) 0.20 Direct Bilirubin (0.00 - 0.30 MG/DL) 0.10 Indirect Bilirubin (0.2 - 1.2 MG/DL) 0.10 L AST (15 - 37 Unit/L) 22 ALT (12 - 78 Unit/L) 23 Total Alk Phosphatase (45 - 117 78 Unit/L) Total Protein (6.4 - 8.2 G/DL) 8.3 H Albumin (3.4 - 5.0 G/DL) 3.3 L Laboratory Tests 02/07 2054 Hematology WBC (3.5 - 11.0 K/mm3) 11.7 H RBC (4.70 - 6.10 M/mm3) 4.26 L Hgb (10.4 - 14.9 G/DL) 10.4 Hct (31.5 - 44.1 %) 33.0 MCV (84.5 - 98.6 Fl) 77.5 L MCH (27.0 - 34.2 pg) 24.4 L MCHC (31.5 - 34.0 G/DL) 31.5 RDW (11.5 - 14.5 SD) 16.5 H Plt Count (150 - 450 K/mm3) 293 MPV (7.0 - 10.5 fL) 11.00 H Neut % (Auto) (40 - 76 %) 56.5 Lymph % (Auto) (20.5 - 51.1 %) 36.8 [place] % (Auto) (1.7 - 9.3 %) 5.7 Eos % (Auto) (0.0 - 6.0 %) 0.0 Baso % (Auto) (0.0 - 2.0 %) 0.6 Neut # (Auto) (1.8 - 7.6 K/mm3) 6.6 Lymph # (Auto) (0.6 - 3.2 K/mm3) 4.3 H [place] # (Auto) (0.3 - 1.1 K/mm3) 0.7 Eos # (Auto) (0.0 - 0.4 K/mm3) 0.0 Baso # (Auto) (0.0 - 0.1 K/mm3) 0.1 Abs Immat Gran (auto) (0.00 - 0.03 x10 3/uL) 0. 05 H Add Manual Diff (CRITERIA DIFF/SCN) NO Immature Gran % (0.0 - 5.0 %) 0.4 Nucleated RBC % (0.0 - 1.0 /100WBC%) 0.0 Laboratory Tests 02/07 2109 Miscellaneous Maternal Serum HCG (0 - 6 mi-IU/ML) < 1 Laboratory Tests 02/07 2109 Serology SARS-CoV-2 Ag (Rapid) (Negative) NEGATIVE Laboratory Tests 02/08 2124 Urines Urine Color (YEL/STRAW discript) YELLOW Urine Appearance (CLEAR discript) CLOUDY H Urine pH (5.0 - 7.0 pH UNITS) 6.0 Ur Specific [place] (1.005 - 1.030 SG) 1.010 Urine Protein (NEG mg/dL) 1+ H Urine Glucose (UA) (NEG mg/dL) NEGATIVE Urine Ketones (NEG mg/dL) NEGATIVE Urine Blood (NEG mg/DL) TRACE H Urine Nitrite (NEG SCREEN) POSITIVE H Urine Bilirubin (NEG mg/dL) NEGATIVE Urine Urobilinogen (<2.0 mg/dL) 0.2 Ur Leukocyte Esterase (NEGATIVE Leuk/mcL) 2+ H Urine RBC (0 - 3 #RBC/HPF) 0-1 Urine WBC (0 - 3 #WBC/HPF) >50 H Ur Squamous Epith Cells (NONE /HPF) 1+ H Urine Bacteria (NONE - TRACE /HPF) 4+ H Urine Culture Screen (Culture CHK Criteria) YES ,WBC>10 EPI<25 Radiology data: Recent Impressions: RADIOLOGY - XR FOOT 3+V LT 02/08 2140 Report Impression - Status: SIGNED Entered: 02/07/20222241 IMPRESSION: 1. Open wound at 5th ray stump. 2. Subcutaneous emphysema/gas gangrene in soft t issues dorsal to the 4th and 5th metatarsals. 3. Progression of osteomyelitis in head of 4th m etatarsal and base of 4th proximal phalanx with pathologic fractures. Impression By: Mary Urrutia MD Diagnosis, Assessment Plan Free Text DxA P Notes Free text DxA P notes: #Wound of left foot, suspicious gas gangrene ortho consulted N.p.o. for possible surgery Antibiotics mgmg per ID blood culture pending #Osteomyelitis of left DM foot ortho consulted Awaits surgery evaluation On IV Antibiotics #Type I diabetes mellitus, uncontrolled, with ne uropathy ACHS SSI #UTI (urinary tract infection) on antibiotics #Obesity Lifestyle modification #Renal insufficiency monitor renal parameter Caution with nephrotoxic meds VTE ppx: hold for possible surgery Full code Marshal Maya 02/08/22 1425: Attestations Physician Attestation Agree w/findings plan: Agree with the findings and plan as documented facundo Keyes NP; * my personal evaluation is L foot wound, ortho consult, IV antibx Electronically Signed by Stephy Benitez MSN o n 02/08/22 at 1102 Electronically Signed by Marshal Maya MD on 1 at 1429 RPT #: [id number] END OF REPORT 2022-02-08 10:56:00-00:00 [id number] [address] PATIENT NAME: HARLEEN MANZANO ADMIT DATE: ACCOUNT NO: [id number] ROOM NO: [facility] AGE: 41 REPORT TYPE: CONSULTATION SEX: F ADMITTING PHYSICIAN: Marshal Maya MD ATTENDING PHYSICIAN: Marshal Maya MD CONSULTATION DATE: 02/08/2022 SNOW REMOVAL SUPERVISOR: Hector Garcia MD. HISTORY OF PRESENT ILLNESS: This is a very pleas ant 41-year-old who was here with her 10-year-old mayuri flynn who unfortunately back in November had an amputation of the fifth toe. She showed me pictures from at, initially had a very big ulcer on the bottom of the fifth toe and there w as a question of gas gangrene that was read by the radiologist with air in it. Unfortunately, what happened is that she went about a tue without doing dressing changes and I guess maybe three times a week, a nurse was coming or maybe it was on a daily basis and she was packing in the surface a nd so this gauze had been in there for one month and was becoming foul smelling and that is why she e nded up coming in. REVIEW OF SYSTEMS: In terms of her review of sys tems, she does have diabetes. She does have obesity. Her creatinine wa s 1.2. She has a positive UA, so maybe has a UTI as well. Albumin is 3.3. No other hear t, lung, GI, or Endocrine. PHYSICAL EXAMINATION: She has got a coup le of ulcers superiorly that are small kind of areas where I think they have been packi ng it just creating this area and then on the bottom part, it is probably about a half dollar size underneath like the fourth metatarsal. Review of the plain x-rays d oes show some air in the joint, but it is because of the packing there on the wound, but not necessar breana because of it is a gas gangrene. She has a little b it of motion up and down with her toes. Her big toe does not seem to move. The tissue is nicely gran ulating. I think it kind of smelled a little bad only an d the fact that the packing had been in there for a month, but she has got capillary refill less abdirizak n 3 seconds. I could not palpate dorsalis pedis per se, but the skin is o pen. ASSESSMENT AND PLAN: We had a long discu ssion and she is quite reasonable. Her white count is up a little b it of 11.7, but I thought we could either do one of two things. If she wants it closed, we can do a fourth ray resection there to kind of close the skin there and there does seem to be some bony changes in the fourth that are consistent with osteomyelitis. I am okay with doing some wet-to-dry, it is open, so I am not so worried a bout the infection going the other way, but do some Silvadene dressin g changes b.i.d. and when she does not feel like it is progressing, then we cou ld do the amputation at that point. My recommendation would be probably to do that ampu tation to get closure, but at this point, she does not want to do that and I a m not sure that there is an emergency to do it at this point, so we are jarvis g to just kind of do the PATIENT NAME: HARLEEN MANZANO 0412 Silvadene dressing changes, treat it with some IV antibiotics and I gave her my card and told her to call me 01/11 with a ny questions, and if she feels like it is not progressing, but at this point, she feels like it is progressing and getting better and at this point, there is no real gangrene, so I am okay just treating it with the Silvadene dressing changes. I did gauze and Miguel wrap as opposed to the Kerlix that is there. Thank you again for the kind consultation. If yo u have any comments or questions, please give me a call. Dictated By: Hector Garcia MD Date Dictated: 02/08/2022 10:56:26 Date Transcribed: 02/08/2022 18:49:16 /[facility] Receipt ID: [id number] Authenticated by Hector Garcia MD On 09:41:53 AM at 0941 PATIENT NAME: HARLEEN MANZANO [id number] 2022-02-08 07:35:00-00:00 [facility] ([facility]) Pharmacy Prog.Note-Vancomycin REPORT#:[id number] REPORT STATUS: Signed DATE:02/08/22 TIME:734 PATIENT: HARLEEN MANZANO UNIT #: [id number] ROOM/BED: [address] : 80 AGE: 41 SEX: F ATTEND: Tee Maya MD ADM AUTHOR: Jose Grace [facility] * ALL edits or amendments must be made on the el [employer]/computer document * Vancomycin Vancomycin Medication Therapy Goal: AUC 400-600 mcg*hr/mL Indication for treatment: LEFT FOOT OSTEOMYELITIS VS and I/O: Vital Signs Date Temp Pulse Resp B/P B/P Mean Pulse Ox FiO 2 02/07-02/08 36.7-36.9 90-103 14-19 139-160/73-8 9 95-112.4 98-100 72 hours ending at 0700 02/08 0702/07 1900 Intake Total Output Total Balance Patient 165.909 kg Weight Weight Stated/Rep orted Measuremen t Method 72 Hour I O Total 02/08 Intake Total Output Total Balance Labs: Laboratory Test : 02/07 Chemistry BUN (7 - 18 MG/DL) 25 H Creatinine (0.6 - 1.0 MG/DL) 1.2 H Hematology WBC (3.5 - 11.0 K/mm3) 11.7 H Microbiology: 02/08 643 BLOOD: Blood Culture - RECD 02/08 23 NASAL: MRSA Screen - ORD 02/07 2221 URINE: Urine Culture - RECD 02/07 2109 BLOOD: Blood Culture - CAN Cancelled: @SPECIMEN REJECTED DUE TO: ALICIA 02/07 2045 BLOOD: Blood Culture - RECD Treatment plan: consult, initiation of therapy Rationale: 41 y/o 165kg female presented to [facility] with left f oot osteomyelitis. Of note patient has h/o left diabeti c foot osteomyelitis s/p left 5th ray amputation and 4th ray debridement on . Patient has sulfa allergy was on ceftriaxone and daptomycin for 6 weeks (end day 01/05) and oral m etronidazole from 12/21 to present. Additionally patient found to have UTI. Pharmacy consulted to dose vancomycin for osteomyelitis. LABS * mild leukocytosis * SCr 1.2 (patient has CKD III, baseline?), CrCl AdjBW >100 * blood and urine cultures pending. PLAN: Vancomycin 2500mg loading dose giv en followed by vancomycin 1500mg q12h. Vancomycin peak and trough scheduled for 02/10 @1200 and 2000 respectively with goal AUC 400-600. Pharmacy will continue to follow up! at 0736 RPT #: [id number] END OF REPORT 2022-02-08 01:07:00-00:00 [facility] ([facility]) Hospitalist History Physical REPORT#:[id number] REPORT STATUS: Signed DATE:02/08/22 TIME:106 PATIENT: HARLEEN MANZANO UNIT #: [id number] ROOM/BED: [facility]18-1 : 80 AGE: 41 SEX: F ATTEND: Tee Maya MD ADM AUTHOR: Marilyn Sotelo APRNNP * ALL edits or amendments must be made on the el [employer]/computer document * Marilyn Sotelo 02/08/22 010: History of Present Illness HPI Chief complaint: left foot wound and odor PCP: PCP: No Primary or Family Physician HPI: 41-year-old morbidly obese female with PMSHx lef t diabetic foot osteomyelitis with abscess and sepsis with E. coli bacteremia, s/p left 5th toe ray amputation and debridement 4th toe MTP joint 12/01/21 who was discharged to home health with IV antibiotics Ceftriaxone 2 gm IV q24h and daptomycin 1 gm IV q24h for 6 weeks til 01/05/22, and oral metron idazole til 12/21/21 presented to the ED with a left foot odor for the past 4 weeks. Patient complete d antibiotics regimen. Still PICC line present. After home health ser vice completion, patient quit changing the dressing or providing any care to her foot a pproximately 4 weeks ago. Patient has a severe appeari ng infection on her proximal left lateral foot with a string gauze hanging out that the patient repo rts has been in there over 5 weeks. The foot has a malodor coming from it. Th ere is no wound drainage at this time. X ray of the foot shows open wound (5th) with subcutaneous emphysema /gas gangrene (4th, 5th) and progression of oste omyelitis (4th). Patient was not septic. Ceftriaxone/vancomycin given at ED. Orthopedic consulted. Also found to have UTI. Patient i s admitted for further evaluation and management of foot gangrene. Informant/historian: patient, prior records, ref erring physician History Past medical history: Reports: Diabetes mellitus. 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 Additional surgical history: S/p left 5th toe ray amputation and debridement 4th toe MTP joint 12/01/21 Additional family history: Reviewed not significant in this patient's care Alcohol use: Denies EtOH use Drug use: Denies recreational drugs Smoking status for patients 13 years old or olde r: Never Smoker Medication/Allergy-Vaccine Hx Medications: Home Medications: Medication Dose/Rte/Freq Days Qty Entered Last Max Daily Dose Reviewed DME - GLUCOSE LANCETS 10/22/21 02/08/22 (GLUCOSE LANCETS) 1345 0149 Strength: 1 ITEM EACH DME - GLUCOSE METER 10/22/21 02/08/22 (GLUCOSE METER) 1345 0149 Strength: 1 ITEM EACH DME - GLUCOSE STRIPS 10/22/21 02/08/22 (GLUCOSE STRIPS) 1345 0149 Strength: 1 ITEM EACH INSULIN GLARGINE 15 UNIT SUBQ Q12H 20 12/07/21 02/08/22 (LANTUS) 1333 0148 Strength: 100 UNIT/ML VIAL INSULIN LISPRO (HumaLOG) 6 UNIT SUBQ AC 1000 Strength: 100 UNIT/ML VIAL 1306 Current Hospital Medications: Anti-Infective Agents Sig/Aubrey Start time Last Medication Dose Route Stop Time Status Admin Vancomycin HCl 1,000 MG X1ED STA 02/07 2300 DC 02/07 (VANCOMYCIN HCL) IV 02/07 2359 2336 Sodium Chloride 250 ML (0.9% Sodium Chloride) Ceftriaxone Sodium 1,000 MG X1ED STA 02/07 2009 AC 02/07 (ROCEPHIN) IV 02/08 0608 2307 Sterile Water 10 ML (WATER FOR INJECTION) Electrolytic, Caloric, And Noe Sig/Aubrey Start time Last Medication Dose Route Stop Time Status Admin Sodium Chloride 1,000 ML X1ED STA 02/08 2008 DC 02/07 (0.9% Sodium IV 02/07 2108 2125 Chloride) Allergies: Coded Allergies: Sulfa (Sulfonamide Antibiotics) (Mild, HIVES ) Review of Systems Constitutional: Denies: chills, fatigue, fever, generalized weak ness, lethargy, malaise. Skin: Reports: other (left foot wound). Allergy/Immun: Denies: allergic reaction. Eyes: Denies: redness, discharge. ENT: Denies: sore throat. Respiratory: Denies: MCALLISTER (dyspnea on exertion), hemop tysis, productive cough (sputum), SOB, wheezing. Cardiovascular: Denies: chest pain, MCALLISTER (dyspnea on exertion), e xochitl, palpitations, parox nocturnal dyspnea. GI: Denies: abdominal pain, nausea, vomiting. : Denies: dysuria, flank pain. Musculoskeletal: Extremity pain: Denies: left upper, left lower, right upper, ri ght lower. Heme: Denies: adenopathy. Endocrine: Denies: cold intolerance, heat intolerance. Neuro: Denies: confusion, dizziness, seizure, syncope. Psych: Denies: anxiety. Objective General VS/I O: Vital Signs: Date Time Temp Pulse Resp B/P B/P Pulse O2 O2 F low FiO2 Mean Ox Delivery Rate 02/08 0144 36.9 103 18 160/89 112.4 100 Room ai r 02/07 2330 98 16 155/74 101 98 02/07 2230 90 17 139/73 95 100 02/07 2130 99 17 142/76 98 100 02/07 1958 36.8 97 19 143/82 102 100 Room air 24 hour I O ending at 0700: 02/08 0700 02/07 1900 Intake Total Output Total Balance Patient 165.909 kg Weight Weight Stated/Reported Measurement Method PATIENT WEIGHT: Weight (lb): Weight (oz): Weight (kg): 165.909 Medications: Active Meds + DC'd Last 24 Hrs Vancomycin HCl (VANCOMYCIN HCL) 1,[address] A IV (DC) Sodium Chloride (0.9% Sodium Chloride) 250 ML Ceftriaxone Sodium (ROCEPHIN) 1,000 MG X1ED STA IV Sterile Water (WATER FOR INJECTION) 10 ML Sodium Chloride (0.9% Sodium Chloride) 1,000 ML X1ED STA IV (DC) Physical Exam General appearance: alert, a wake, oriented, no acute distress, pleasant, mental status normal, no respiratory distress Head/Eyes: atraumatic, normal conjunctiva/sclera , normal eyelids/periorb., normocephalic, PERRL ENT: moist mucosal membranes Neck: full range of motion, normal thyroid, no J VD, no masses or swelling Cardiovascular: normal capillary refill, normal heart sounds, regular rate rhythm Respiratory: aerating well, clear to auscultatio n, symmetric expansion, no distress Abdomen: non-tender, normal bowel sounds , soft, no distention, no guarding, no mass/organomegaly, no rebound Genitourinary: no flank pain Extremities: no cyanosis, no edema Musculoskeletal: normal inspection Neuro/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 OPERATOR: alert, oriented X 3, normal speech, n o motor deficits, no sensory deficits Wound/incision: Location: left 4th and 5th toe Site Condition: necrotic tissue, odor Lymphatics: neck normal, no lymphadenopathy Psychiatry: normal affect Results Findings/Data: Laboratory Tests 02/08 Chemistry Sodium (134 - 147 mmol/L) 135 Potassium (3.4 - 5.0 mmol/L) 4.6 Chloride (100 - 108 mmol/L) 102 Carbon Dioxide (21 - 32 mmol/L) 24 Anion Gap (4.0 - 15.0 GAP calc) 9.0 BUN (7 - 18 MG/DL) 25 H Creatinine (0.6 - 1.0 MG/DL) 1.2 H Glomerular Filtr Rate (>60 estGFR) >=60 max est imate Glucose (70 - 110 MG/DL) 137 H POC Glucose (70 - 110 mg/dL) 156 H Lactic Acid (0.4 - 2.0 mmol/L) 1.7 Calcium (8.5 - 10.1 MG/DL) 9.0 Total Bilirubin (0.2 - 1.2 MG/DL) 0.20 Direct Bilirubin (0.00 - 0.30 MG/DL) 0.10 Indirect Bilirubin (0.2 - 1.2 MG/DL) 0.10 L AST (15 - 37 Unit/L) 22 ALT (12 - 78 Unit/L) 23 Total Alk Phosphatase (45 - 117 Unit/L) 78 Total Protein (6.4 - 8.2 G/DL) 8.3 H Albumin (3.4 - 5.0 G/DL) 3.3 L Laboratory Tests 02/07 2054 Hematology WBC (3.5 - 11.0 K/mm3) 11.7 H RBC (4.70 - 6.10 M/mm3) 4.26 L Hgb (10.4 - 14.9 G/DL) 10.4 Hct (31.5 - 44.1 %) 33.0 MCV (84.5 - 98.6 Fl) 77.5 L MCH (27.0 - 34.2 pg) 24.4 L MCHC (31.5 - 34.0 G/DL) 31.5 RDW (11.5 - 14.5 SD) 16.5 H Plt Count (150 - 450 K/mm3) 293 MPV (7.0 - 10.5 fL) 11.00 H Neut % (Auto) (40 - 76 %) 56.5 Lymph % (Auto) (20.5 - 51.1 %) 36.8 [place] % (Auto) (1.7 - 9.3 %) 5.7 Eos % (Auto) (0.0 - 6.0 %) 0.0 Baso % (Auto) (0.0 - 2.0 %) 0.6 Neut # (Auto) (1.8 - 7.6 K/mm3) 6.6 Lymph # (Auto) (0.6 - 3.2 K/mm3) 4.3 H [place] # (Auto) (0.3 - 1.1 K/mm3) 0.7 Eos # (Auto) (0.0 - 0.4 K/mm3) 0.0 Baso # (Auto) (0.0 - 0.1 K/mm3) 0.1 Abs Immat Gran (auto) (0.00 - 0.03 x10 3/uL) 0 .05 H Add Manual Diff (CRITERIA DIFF/SCN) NO Immature Gran % (0.0 - 5.0 %) 0.4 Nucleated RBC % (0.0 - 1.0 /100WBC%) 0.0 Laboratory Tests 02/07 2109 Miscellaneous Maternal Serum HCG (0 - 6 mi-IU/ML) < 1 Laboratory Tests 02/07 2109 Serology SARS-CoV-2 Ag (Rapid) (Negative) NEGATIVE Laboratory Tests 02/08 2124 Urines Urine Color (YEL/STRAW discript) YELLOW Urine Appearance (CLEAR discript) CLOUDY H Urine pH (5.0 - 7.0 pH UNITS) 6.0 Ur Specific [place] (1.005 - 1.030 SG) 1.010 Urine Protein (NEG mg/dL) 1+ H Urine Glucose (UA) (NEG mg/dL) NEGATIVE Urine Ketones (NEG mg/dL) NEGATIVE Urine Blood (NEG mg/DL) TRACE H Urine Nitrite (NEG SCREEN) POSITIVE H Urine Bilirubin (NEG mg/dL) NEGATIVE Urine Urobilinogen (<2.0 mg/dL) 0.2 Ur Leukocyte Esterase (NEGATIVE Leuk/mcL) 2+ H Urine RBC (0 - 3 #RBC/HPF) 0-1 Urine WBC (0 - 3 #WBC/HPF) >50 H Ur Squamous Epith Cells (NONE /HPF) 1+ H Urine Bacteria (NONE - TRACE /HPF) 4+ H Urine Culture Screen (Culture CHK Criteria) YES ,WBC>10 EPI<25 Radiology data: Recent Impressions: RADIOLOGY - XR FOOT 3+V LT 02/08 2140 Report Impression - Status: SIGNED Entered: 02/07/20222241 IMPRESSION: 1. Open wound at 5th ray stump. 2. Subcutaneous emphysema/gas gangrene in soft t issues dorsal to the 4th and 5th metatarsals. 3. Progression of osteomyelitis in head of 4th m etatarsal and base of 4th proximal phalanx with pathologic fractures. Impression By: Mary - Adri Urrutia MD Diagnosis, Assessment Plan Free Text DxA P Notes Free Text DxA P Notes: 1. Wound of left foot, suspicious gas gangrene ortho consulted N.p.o. midnight for possible surgery Antibiotics no evidences of sepsis (LA nl, vitals stable), trace leukocytosis monitor for sepsis blood culture pending defer vascular surgeon consult per day team 2. Osteomyelitis of left DM foot ortho consulted N.p.o. midnight for possible surgery Antibiotics 3. Type I diabetes mellitus, uncontrolled, with neuropathy ACHS SSI 4. UTI (urinary tract infection) on antibiotics 5. Obesity Lifestyle modification 6. Renal insufficiency monitor renal parameter VTE ppx: hold for possible surgery Full code Marshal Maya 02/08/22 1357: Attestations Physician Attestation Agree w/findings plan: Agree with the findings and plan as documented b y KEL Cruz * my personal evaluation is foot wound, antibx, cultures Electronically Signed by Marilyn Sotelo n 02/08/22 at 0252 Electronically Signed by Marshal Maya MD on 1 at 142 RPT #: [id number] END OF REPORT 2022-02-07 20:07:00-00:00 [facility] ([facility]) EMERGENCY PROVIDER REPORT REPORT#:[id number] REPORT STATUS: Signed DATE:02/07/22 TIME:2006 PATIENT: HARLEEN MANZANO UNIT #: [id number] ROOM/BED: S218-1 : 80 AGE: 41 SEX: F PCP PHYS: No Primar y or Family Physician SERVICE AUTHOR: Abdi Prabhakar BIG DATA SOFTWARE ENGINEER * ALL edits or amendments must be made on the el [employer]/computer document * Abdi Prabhakar 02/07/22 2007: HPI-Foot Prob/Inj General Initial Greet Date/Time 02/07/221902 Presentation Chief Complaint LEFT FOOT ODOR Hx Obtained From Patient Free Text HPI Notes Free Text HPI Notes 41-year-old morbidly obese female presen ts to the ED with a left foot odor for the past 4 weeks. Patient reports she had surger y on November 27, [address] Garland of the orthopedic surgeon related to a diabetic foot wound. Patient reports she was discharged from the hospital on December 08 2021 and had home health coming to her home until 30 days ago when they quit coming. Patient states she quit changing the dressing or providi ng any care to her foot approximately 4 weeks ago. Patient has a severe appearing infection on her proximal left lateral foot with a string gauze h anging out that the patient reports has been in there over 5 weeks. The foot has a malodorous aura coming from it. There is no wound drainage at this time . Review of Systems ROS Statements All systems rev neg except as marked. Free Text ROS Notes Free Text ROS Notes Left foot wound Past Medical History - Adult Stated Complaint SURGERY IN DEC, WOUND DRESSING NEEDS CHANGING Allergies Coded Allergies: Sulfa (Sulfonamide Antibiotics) (Mild, HIVES ) Home Medications Active Scripts DME - GLUCOSE LANCETS (GLUCOSE LANCETS) EACH MIS C DAILY DME - GLUCOSE LANCETS (GLUCOSE LANCETS) EACH OK SC DAILY #400 Prov: 10/22/21 DME - GLUCOSE METER (GLUCOSE METER) EACH MISC DIR DME - GLUCOSE METER (GLUCOSE METER) EACH MISC A SDIR #1 Prov: 10/22/21 DME - GLUCOSE STRIPS (GLUCOSE STRIPS) EACH MISC DAILY DME - GLUCOSE STRIPS (GLUCOSE STRIPS) EACH MISC DAILY #400 Prov: 10/22/21 METOPROLOL TARTRATE (LOPRESSOR) 25 MG PO Q12HR METOPROLOL TARTRATE (LOPRESSOR) 25 MG PO Q12HR #60 TAB Prov: 12/07/21 INSULIN GLARGINE (LANTUS) 15 UNIT SUBQ Q12H INSULIN GLARGINE (LANTUS) 15 UNIT SUBQ Q12H #20 ML Prov: 12/07/21 cefTRIAXone (ROCEPHIN) 1 GM IV DAILY DAPTOmycin (CUBICIN) 1,000 MG IV Q24H metroNIDAZOLE (FLAGYL) 500 MG PO Q12H metroNIDAZOLE (FLAGYL) 500 MG PO Q12H #42 TABS Prov: 12/07/21 INSULIN LISPRO (HumaLOG) 6 UNIT SUBQ AC INSULIN LISPRO (HumaLOG) 6 UNIT SUBQ AC #1000 M L Prov: 10/22/21 Past Medical History: Reports: Diabetes mellitus. 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 Recent illness as mentioned in HPI Additional Surgical History Additional Family History Reviewed not significant in this patient's care Alcohol Use Denies EtOH use Drug Use Denies recreational drugs Smoking status for patients 13 years old or olde r: Never Smoker Physical Exam Vital Signs Vital Signs First Documented: Result Date Time Pulse Ox 100 02/07 1958 B/P 143/82 02/07 1958 B/P Mean 102 02/07 1958 O2 Delivery Room air 02/07 1958 Temp 36.8 02/07 1958 Pulse 97 02/07 1958 Resp 19 02/07 1958 Last Documented: Result Date Time Pulse Ox 98 02/07 2330 B/P 155/74 02/07 2330 B/P Mean 101 02/07 2330 Pulse 98 02/07 2330 Resp 16 02/07 2330 O2 Delivery Room air 02/07 1958 Temp 36.8 02/07 1958 Review of Vital Signs Reviewed Focused PE General/Const General/Const Awake, Alert, Well appearing MS Ankle/Foot Ankle/Foot Atraumatic, Full range of mo tion, No deformity, Neurologic intact, Vascular intact, No ligamentous injury, Tendon f unction NL, No edema Text/Dict Note Patient has a severe appear ing infection on her proximal left lateral foot with a string gauze hanging out that the patient repo rts has been in there over 5 weeks. The foot has a malodorous aura coming fro m it. There is no wound drainage at this time. 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 Left Foot Swelling present, Tenderness present, Erythema present, Warmth present. Skin Skin Color NL, Warm, Dry, Intact, Turgor NL, No swelling Neurologic Neurologic Oriented X3, Speech NL, No motor def icits, No sensory deficits Interpretation Diagnostics Lab Results Interpretation Results Laboratory Tests 02/07/222108: [Embedded Image Not Available] 02/07/222053: [Embedded Image Not Available] Laboratory Tests: 02/08 2124 Urines Urine Color (YEL/STRAW discript) YELLOW Urine Appearance (CLEAR discript) CLOUDY H Urine pH (5.0 - 7.0 pH UNITS) 6.0 Ur Specific [place] (1.005 - 1.030 SG) 1.010 Urine Protein (NEG mg/dL) 1+ H Urine Glucose (UA) (NEG mg/dL) NEGATIVE Urine Ketones (NEG mg/dL) NEGATIVE Urine Blood (NEG mg/DL) TRACE H Urine Nitrite (NEG SCREEN) POSITIVE H Urine Bilirubin (NEG mg/dL) NEGATIVE Urine Urobilinogen (<2.0 mg/dL) 0.2 Ur Leukocyte Esterase (NEGATIVE Leuk/mcL) 2+ H Urine RBC (0 - 3 #RBC/HPF) 0-1 Urine WBC (0 - 3 #WBC/HPF) >50 H Ur Squamous Epith Cells (NONE /HPF) 1+ H Urine Bacteria (NONE - TRACE /HPF) 4+ H Urine Culture Screen (Culture CHK Criteria) YES ,WBC>10 EPI<25 02/07 Chemistry Sodium (134 - 147 mmol/L) 135 Potassium (3.4 - 5.0 mmol/L) 4.6 Chloride (100 - 108 mmol/L) 102 Carbon Dioxide (21 - 32 mmol/L) 24 Anion Gap (4.0 - 15.0 GAP calc) 9.0 BUN (7 - 18 MG/DL) 25 H Creatinine (0.6 - 1.0 MG/DL) 1.2 H Glomerular Filtr Rate (>60 estGFR) >=60 max est imate Glucose (70 - 110 MG/DL) 137 H Calcium (8.5 - 10.1 MG/DL) 9.0 Total Bilirubin (0.2 - 1.2 MG/DL) 0.20 Direct Bilirubin (0.00 - 0.30 MG/DL) 0.10 Indirect Bilirubin (0.2 - 1.2 MG/DL) 0.10 L AST (15 - 37 Unit/L) 22 ALT (12 - 78 Unit/L) 23 Total Alk Phosphatase (45 - 117 Unit/L) 78 Total Protein (6.4 - 8.2 G/DL) 8.3 H Albumin (3.4 - 5.0 G/DL) 3.3 L Hematology WBC (3.5 - 11.0 K/mm3) 11.7 H RBC (4.70 - 6.10 M/mm3) 4.26 L Hgb (10.4 - 14.9 G/DL) 10.4 Hct (31.5 - 44.1 %) 33.0 MCV (84.5 - 98.6 Fl) 77.5 L MCH (27.0 - 34.2 pg) 24.4 L MCHC (31.5 - 34.0 G/DL) 31.5 RDW (11.5 - 14.5 SD) 16.5 H Plt Count (150 - 450 K/mm3) 293 MPV (7.0 - 10.5 fL) 11.00 H Neut % (Auto) (40 - 76 %) 56.5 Lymph % (Auto) (20.5 - 51.1 %) 36.8 [place] % (Auto) (1.7 - 9.3 %) 5.7 Eos % (Auto) (0.0 - 6.0 %) 0.0 Baso % (Auto) (0.0 - 2.0 %) 0.6 Neut # (Auto) (1.8 - 7.6 K/mm3) 6.6 Lymph # (Auto) (0.6 - 3.2 K/mm3) 4.3 H [place] # (Auto) (0.3 - 1.1 K/mm3) 0.7 Eos # (Auto) (0.0 - 0.4 K/mm3) 0.0 Baso # (Auto) (0.0 - 0.1 K/mm3) 0.1 Abs Immat Gran (auto) (0.00 - 0.03 x10 3/uL) 0. 05 H Add Manual Diff (CRITERIA DIFF/SCN) NO Immature Gran % (0.0 - 5.0 %) 0.4 Nucleated RBC % (0.0 - 1.0 /100WBC%) 0.0 Miscellaneous Maternal Serum HCG (0 - 6 mi-IU/ML) < 1 Serology SARS-CoV-2 Ag (Rapid) (Negative) NEGATIVE 02/07 2011 Chemistry Lactic Acid (0.4 - 2.0 mmol/L) 1.7 Microbiology: Date/Time Procedure - Status Source Growth 02/08 0023 MRSA Screen - ORD NASAL 02/07 2221 Urine Culture - RECD URINE 02/07 2109 Blood Culture - CAN BLOOD Cancelled: @SPECIMEN REJECTED DUE TO: CAT GABY 02/07 2045 Blood Culture - RECD BLOOD Recent Impressions: RADIOLOGY - XR FOOT 3+V LT 02/08 2140 Report Impression - Status: SIGNED Entered: 02/07/20222241 IMPRESSION: 1. Open wound at 5th ray stump. 2. Subcutaneous emphysema/gas gangrene in soft t issues dorsal to the 4th and 5th metatarsals. 3. Progression of osteomyelitis in head of 4th m etatarsal and base of 4th proximal phalanx with pathologic fractures. Impression By: Mary - Adri Urrutia MD Lab Imaging Statement Laboratory radiographic studies reviewed and con sidered in the medical decision-making. Point of Care Testing Pulse Oximetry Pulse Ox % 100 On: Room air Interpretation Interpreted by me Re-Evaluation MDM Free Text MDM Notes Free Text MDM Notes Upon seeing patient she did not trigger sepsis based on her vital sign. However , due to the level of infection that I observed in her left foot a sepsis protocol was initiated. While the nurses were dr binaing the blood work, the patient refused any antibiotics until he r blood work came back. I attempted to explain the necessity of these antibiotics due t o her foot infection but she adamantly refused again, stating," not until my blood results come back". Patient has leukocytosis but the lactic is maria l l. Patient has a severe osteomyelitis in her left foot which the radiologist reports the open wound at the fifth ray stump. Subcuta neous emphysema/gas gangrene in the soft tissues of the dorsal fourth and fifth metatarsals. Progres britni of osteomyelitis in the head of the fourth metatarsal and base of the fo urth proximal phalanx with pathologic fractures. Discussed these re sults with patient who is agreeable to admission. ED Course Medication(s) Ordered Medication(s) Ordered: Anti-Infective Agents Sig/Aubrey Start time Last Medication Dose Route Stop Time Status Admin Vancomycin HCl 1,000 MG X1ED STA 02/07 2300 DC 02/07 Sodium Chloride 250 ML IV 02/07 2359 2336 Ceftriaxone Sodium 1,000 MG X1ED STA 02/07 2009 AC 02/07 Sterile Water 10 ML IV 02/08 0608 2307 Electrolytic, Caloric, And Noe Sig/Aubrey Start time Last Medication Dose Route Stop Time Status Admin Sodium Chloride 1,000 ML X1ED STA 02/08 2008 DC 10/30 IV 02/07 Consultation Consultation Referral/Consult Name Hector Garcia MD Audio/Video Technician Called Surgeon Requested Call Time 003 Requested Call Date 02/08/22 Call Returned Call returned Call Returned Time 004 Call Returned Date 02/08/22 Audio/Video Technician Will see patient, Agrees with eval, Agrees with plan Patient Discharge Departure Vital Signs/Condition Vital Signs First Documented: Result Date Time Pulse Ox 100 02/07 1958 B/P 143/82 02/07 1958 B/P Mean 102 02/07 1958 O2 Delivery Room air 02/07 1958 Temp 36.8 02/07 1958 Pulse 97 02/07 1958 Resp 19 02/07 1958 Last Documented: Result Date Time Pulse Ox 98 02/07 2330 B/P 155/74 02/07 2330 B/P Mean 101 02/07 2330 Pulse 98 02/07 2330 Resp 16 02/07 2330 O2 Delivery Room air 02/07 1958 Temp 36.8 02/07 1958 All vital signs available at the time of this en try have been reviewed. Condition Stable Clinical Impression Clinical Impression Primary Impression: Osteomyelitis of left foot Secondary Impressions: UTI (urinary tract infect ion) Disposition Decision Admit Admit Physician Name Marshal Maya MD Request Time 0020 Request Date 02/08/22 )( Admission Accepts Yes )( Accepted Time 002 )( Accepted Date 02/08/22 Call Information will see patient, agrees with eval, agrees with plan, ADMISSION ACCEPTED BY MARILYN SOTELO BIG DATA SOFTWARE ENGINEER FOR DR. MAYA. Ranjeet Paulino 02/08/22 0141: Patient Discharge Departure Supervising Physician Note MidLv Saw Pt Alone I have reviewed the PA/BIG DATA SOFTWARE ENGINEER's note and plan of car e. I was available for consultation as needed at al l times during the patient's visit in the emergency department. I agree with the clinical impression , plan and disposition. Electronically Signed by Abdi Prabhakar NP on at 0041 Electronically Signed by Ranjeet Coronel MD on at 0141 RPT #: [id number] END OF REPORT 2021-12-07 20:23:00-00:00 [facility] nephrology progress note report#:[id number] report status: signed date:12/07/21 time:2022 patient: harleen manzano unit #: [id number] room/bed: linda [place] [address] : 80 age: 41 sex: f attend: samanta castle md adm dt: 11/25/21 author: gabriela higginbotham md * all edits or amendments must be made on the [employer]st[employer]/computer document * subjective hpi: events noted and chart reviewed. no report of cp , sob or n/v. objective general vs/i o: vital signs: date time temp pulse resp b/p b/p pulse o2 o2 f low fio2 mean ox delivery rate 12/07 1610 36.6 83 14 151/96 114.5 100 room air 12/07 1150 37.0 77 16 157/80 105.6 100 12/07 1132 36.7 12/07 1128 79 18 135/83 100 97 nasal 2 cannula 12/07 0806 36.4 82 18 143/86 105.0 99 12/07 0412 36.7 85 17 129/85 100.0 99 12/07 0024 36.5 76 16 125/82 96.4 99 24 hour i o ending at 0700: 12/07 0700 12/06 1900 intake total 490.00 output total balance 490.00 intake, iv 250.00 intake, oral 240 number voids 1 patient weight: weight (lb): 365 weight (oz): 12.27 weight (kg): 165.561 medications active meds + dc'd last 24 hrs magnesium oxide (mag-ox 400) 800 mg once one po (dc) insulin glargine (lantus/semglee) 15 unit q12h s ubq (dcd) alteplase, recombinant (cathflo activase) 2 mg a sdir iv (dcd) sterile water (water for injection) 2.2 ml linezolid (zyvox) 600 mg q12hr po (dcd) insulin human lispro (humalog) 4 unit ac subq (d cd) ampicillin sodium/sulbactam sodium (unasyn 3 gm) 3 gm q6hr iv (dcd) sodium chloride (sodium chloride 0.9%) 100 ml loratadine (claritin) 10 mg daily po (dcd) docusate sodium (colace) 100 mg bid po (dcd) ondansetron hcl (zofran) 8 mg q8h prn prn po (dc d) ondansetron hcl (zofran) 8 mg q8h prn prn iv (dc d) non-formulary medication (vancomycin trough bisi nder) 1 each asdir misc (dc) dextrose/water (dextrose 50% w syringe) 25 ml as dir prn iv (dcd) dextrose/water (dextrose 50% w syringe) 50 ml as dir prn iv (dcd) glucagon (glucagon) 1 mg asdir prn im (dcd) heparin sodium (porcine) (heparin sodium) 5,000 unit q8hr subq (dcd) insulin human lispro (humalog) 0 ac hs subq (dcd ) metoprolol tartrate (lopressor) 25 mg q12hr po ( dcd) hydralazine hcl (apresoline) 10 mg q6h prn prn i v (dcd) lactulose (lactulose) 20 gm q6h prn prn po (dcd) ondansetron hcl (zofran odt) 4 mg q4h prn prn po (dcd) physical exam general appearance: no respiratory distress head/eyes: atraumatic neck: supple/no meningismus cardiovascular: regular rate and rhythm respiratory: clear to auscultation abdomen: soft extremities: no edema neuro/insurance risk surveyor: alert psychiatry: normal mood results findings/data: laboratory tests 12/07 12/07 12/07 12/07 1605 1142 0803 0415 chemistry sodium (134 - 147 mmol/l) 139 potassium (3.4 - 5.0 mmol/l) 3.6 chloride (100 - 108 mmol/l) 106 carbon dioxide (21 - 32 mmol/l) 27 anion gap (4.0 - 15.0 gap calc) 6.0 bun (7 - 18 mg/dl) 8 creatinine (0.6 - 1.0 mg/dl) 1.4 h glomerular filtr rate (>60 estgfr) 53 l glucose (70 - 110 mg/dl) 135 h poc glucose (70 - 110 mg/dl) 271 h 164 h 113 h calcium (8.5 - 10.1 mg/dl) 8.6 phosphorus (2.5 - 4.9 mg/dl) 3.6 magnesium (1.8 - 2.4 mg/dl) 1.6 l laboratory tests 12/07 0415 hematology wbc (3.5 - 11.0 k/mm3) 9.3 rbc (4.70 - 6.10 m/mm3) 3.67 l hgb (10.4 - 14.9 g/dl) 9.0 l hct (31.5 - 44.1 %) 29.7 l mcv (84.5 - 98.6 fl) 80.9 l mch (27.0 - 34.2 pg) 24.5 l mchc (31.5 - 34.0 g/dl) 30.3 l rdw (11.5 - 14.5 sd) 13.9 plt count (150 - 450 k/mm3) 286 mpv (7.0 - 10.5 fl) 10.90 h neut % (auto) (40 - 76 %) 56.6 lymph % (auto) (20.5 - 51.1 %) 35.5 mono % (auto) (1.7 - 9.3 %) 6.7 eos % (auto) (0.0 - 6.0 %) 0.0 baso % (auto) (0.0 - 2.0 %) 0.7 neut # (auto) (1.8 - 7.6 k/mm3) 5.3 lymph # (auto) (0.6 - 3.2 k/mm3) 3.3 h mono # (auto) (0.3 - 1.1 k/mm3) 0.6 eos # (auto) (0.0 - 0.4 k/mm3) 0.0 baso # (auto) (0.0 - 0.1 k/mm3) 0.1 abs immat gran (auto) (0.00 - 0.03 x10 3/ul) 0. 05 h add manual diff (criteria diff/scn) no immature gran % (0.0 - 5.0 %) 0.5 nucleated rbc % (0.0 - 1.0 /100wbc%) 0.0 diagnosis, assessment plan free text a p: assessment/plan: jayleen on ckd-iiia likely due to atn. improving ser um cr. continue to monitor volume status - acceptable. off ivf serum lytes/acid-base - acceptable. hypomagnesemia - replete mag. dm - per primary team. no acute indication for hd today. ok to dc home from renal standpoint. consultants: infectious disease, nephrology, ort hopedics electronically signed by gabriela higginbotham md on 12/15/21 at 0731 rpt #: [id number] end of report 2021-12-07 17:41:00-00:00 [facility] ([facility]) wound care progress note report#:[id number] report status: signed date:12/07/21 time:1740 patient: harleen manzano unit #: [id number] room/bed: [place] [address] : 80 age: 41 sex: f attend: samanta castle md adm dt: 11/25/21 author: jonathan hernandez md * all edits or amendments must be made on the el [employer]/computer document * subjective chief complaint: wound care hpi: i carried out the wound care at bedside unable to obtain: medical condition objective general vs: last documented: result date time pulse ox 100 12/07 1610 b/p 151/96 12/07 1610 b/p mean 114.5 12/07 1610 o2 delivery room air 12/07 1610 temp 97.9 12/07 1610 pulse 83 12/07 1610 resp 14 12/07 1610 o2 flow rate 2 12/07 1128 patient weight: weight (lb): 365 weight (oz): 12.27 weight (kg): 165.561 medications: active meds + dc'd last 24 hrs magnesium oxide (mag-ox 400) 800 mg once one po (dc) insulin glargine (lantus/semglee) 15 unit q12h s ubq (dc) insulin glargine (lantus/semglee) 15 unit q12h subq alteplase, recombinant (cathflo activase) 2 mg a sdir iv (ckd) sterile water (water for injection) 2.2 ml linezolid (zyvox) 600 mg q12hr po insulin human lispro (humalog) 4 unit ac subq ampicillin sodium/sulbactam sodium (unasyn 3 gm) 3 gm q6hr iv sodium chloride (sodium chloride 0.9%) 100 ml loratadine (claritin) 10 mg daily po docusate sodium (colace) 100 mg bid po ondansetron hcl (zofran) 8 mg q8h prn prn po ondansetron hcl (zofran) 8 mg q8h prn prn iv non-formulary medication (vancomycin trough bisi nder) 1 each asdir misc (dc) dextrose/water (dextrose 50% w syringe) 25 ml as dir prn iv (ckd) dextrose/water (dextrose 50% w syringe) 50 ml as dir prn iv (ckd) glucagon (glucagon) 1 mg asdir prn im heparin sodium (porcine) (heparin sodium) 5,000 unit q8hr subq insulin human lispro (humalog) 0 ac hs subq metoprolol tartrate (lopressor) 25 mg q12hr po hydralazine hcl (apresoline) 10 mg q6h prn prn i v lactulose (lactulose) 20 gm q6h prn prn po ondansetron hcl (zofran odt) 4 mg q4h prn prn po nutrition assessment: the data set between the solid lines has been im ported from the dietitian's assessment. any exceptions have been noted under provider comments. bmi calculated: 50.9 nutrition related diagnosis: nutrition diagnosis details: nutrition problem: nutrition etiology: nutrition signs and symptoms: nutrition prescription: dietitian name: assessment completed: provider comments on imported dietitian assessme nt: physical exam general appearance: chronically ill appearing neck: no jvd abdomen: non-tender extremities: no edema wound assessment wound assessment 1: type/cause: post-op wound location: foot tissue layers: limited to skin breakdown diagnosis, assessment plan problem list/a p: 1. wound of left foot 3 times a week wound dressing changes a long with once weekly dressing changes done in my office wll be conducted lavage the wound cavity with saline pack with aquacel ag cover with nonwoven gauze kerlix wrap then miguel band as secondary change dressings daily 2. obesity advised weight loss to help with pressure reduc tion. 3. type i diabetes mellitus with hyperosmolarit y, uncontrolled arterial dopplers negative for any pad 4. jayleen (acute kidney injury) consultants: infectious disease, nephrology, ort hopedics electronically signed by jonathan hernandez md on at 1745 rpt #: [id number] end of report 2021-12-07 15:45:00-00:00 [facility] ([facility]) hospitalist discharge summary report#:[id number] report status: signed date:12/07/21 time:1545 patient: harleen manzano unit #: [id number] room/bed: [place] [address] : 80 age: 41 sex: f attend: samanta castle md adm dt: 11/25/21 author: prakash larsen md * all edits or amendments must be made on the el [employer]/computer document * general information date of admission: observation start date: date of admission: 11/25/21 discharge date: 12/07/21 discharge diagnosis: see hosp course hospital course: this is 40-year-old lady who came in with compla ins of fevers nausea and vomiting and left foot infection. patient stated that she was admitted and [facility] for 2 weeks and was discharged home on october 22 a t which point she was found to have left foot wound for which podiatry recommended outpatient follow -up and oral antibiotics. patient was getting home health and woun d care at home and she went to see her film and video graphics designer on and as told that she has probably bone infection and was given antibiotics - since she had been having fevers on and off and some nausea episodes of vomiting nonbilious and nonbloody. free text dxa p notes: sepsis with osteomyelitis of the left foot follow infectious work-up in cluding blood cultures-blood culture november 25 with e. 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 orthopedics thinks that they did not get the margins cleared up so will need 6 weeks of iv antibiotics monitor hemodynamic status closely postoperative care as per orthopedics. have also involved wound care as requested by orthopedics. id also on board as per id dc with iv ceftriaxone and dapto and p o flagyl left foot osteo- see above e. coli bacteremia patient blood culture growing e. coli pansensiti ve. most probable source appears to be left foot osteo and abscess. repea t blood cultures negative so far. already got picc line.. id on board. diabetes mellitus continue with insulin lantus. keep on insulin sl iding scale and premeal insulin. monitor blood sugars. renal dysfunction patient actually had atn in october and creatinine was slowly improving but then again deteriorated. cr improved 1.4 anemia in the postoperative phase. monitor h h. improved abnormal chest x-ray does seem to be some artifact. 2 view x-ray did show that it was overreading. dvt prophylaxis patient is full code disposition patient has no insurance coverage for [facility] nursing, patient will need to go home with iv antibiotics, discussed with case teo hilary seen and examined discharge home with home health discharge time 34-minute consultants: infectious disease, nephrology, ort hopediwill pt. condition on discharge: improved, stable free text dxa p notes free text dxa p notes: sepsis with osteomyelitis of the left foot follow infectious work-up in cluding blood cultures-blood culture november 25 with e. 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 orthopedics thinks that they did not get the margins cleared up so will need 6 weeks of iv antibiotics monitor hemodynamic status closely postoperative care as per orthopedics. have also involved wound care as requested by orthopedics. id also on board as per id wound cultures are growing enterococcu s and possibly e. coli. still pending final sensitivity and identification in the system but as per id enterococcus is vre. started on linezolid and un asyn probably discharged on daptomycin. left foot osteo- see above e. coli bacteremia patient blood culture growing e. coli pansensiti ve. most probable source appears to be left foot osteo and abscess. repea t blood cultures negative so far. already got picc line.. id on board. diabetes mellitus continue with insulin lantus. keep on insulin sl iding scale and premeal insulin. monitor blood sugars. patient refused long-acting insulin this morning renal dysfunction patient actually had atn in october and creatinine was slowly improving but then again deteriorated. could be related to the zulma efren. nephrology on board thinks there could be some prerenal component. s top iv fluids. continue to monitor renal function avoid nephrotoxic medicat ion anemia in the postoperative phase. monitor h h. improved abnormal chest x-ray does seem to be some artifact. 2 view x-ray did show that it was overreading. dvt prophylaxis patient is full code disposition patient [facility], patient will need to go home with iv antibiotics, discussed with case teo richard med rec med rec discharge meds: stop taking the following medications: amoxicillin (amoxil) 500 mg cap 500 milligram oral every 8 hours. qty = 33 furosemide (lasix) 40 mg tab 40 milligram oral daily. qty = 30 insulin glargine (lantus) 100 unit/ml vial 20 unit subcutaneous twice daily. qty = 1000 continue taking these medications: insulin lispro (humalog) 100 unit/ml vial 6 unit subcutaneous before meals. qty = 1000 start taking the following new medications: metoprolol tartrate (lopressor) 25 mg tab 25 milligram oral every 12 hours. qty = 60 no refills insulin glargine (lantus) 100 unit/ml vial 15 unit subcutaneous every 12 hours. qty = 20 no refills ceftriaxone (rocephin) 2 gram vial 1 gram intravenous daily. days = 42 no refills daptomycin (cubicin) 500 mg vial 1,000 milligram intravenous every 24 hours. days = 42 no refills metronidazole (flagyl) 500 mg tab 500 milligram oral every 12 hours. qty = 42 no refills objective free text obj notes free text obj notes: physical examination patient is a pleasant person lying on the bed does not appear to be in distress heent pupils equal round reactive light and acco mmodating normocephalic/ atraumatic skull normal oral mucosa neck supple no jvd chest clear bilateral entry no wheeze or crackle s cvs s1-s2 no murmur rubs or gallop abdomen soft nontender bowel sounds positive extremities no pedal edema pulses palpable left foot fifth metatarsal under the bandage whi ch was not open insurance risk surveyor alert oriented x3 moving all 4 extremities d ecrease sensation bilateral lower extremity up to chaney psych examination normal mood discharge instructions pcp discharge to: home health wplan of care additional discharge routines: pcp follow-up, co nsultant follow-up diet: diabetic, cardiac activity: as tolerated prescriptions: on chart discharge management: greater than 30 mins follow-up appointments pcp follow-up: pcp: no primary or family physician pcp follow up timeframe: in 3 days consulting provider 1: provider 1: jose garland md specialty: orthopaedic surgery phone: [phone] consult follow up timeframe: in 5 days electronically signed by prakash larsen md on at 1524 rpt #: [id number] end of report 2021-12-07 12:49:00-00:00 [facility] ([facility]) infectious dis. progress note report#:[id number] report status: signed date:12/07/21 time:1249 patient: harleen manzano unit #: [id number] room/bed: [facility]1 : 80 age: 41 sex: f attend: samanta castle md adm dt: 11/25/21 author: pro bustamante md * all edits or amendments must be made on the el [employer]/computer document * subjective chief complaint: foot infection, left hpi: wbc remains normal, pt is on unasyn and linezoli d. review of systems constitutional: denies: fever. objective physical exam general appearance: alert, awake head/eyes: atraumatic, normocephalic cardiovascular: normal heart sounds respiratory: clear to auscultation, no distress abdomen: non-tender, soft, no distention neuro/insurance risk surveyor: alert, oriented x 3 skin: no rash diagnosis, assessment plan free text a p: laboratory tests 12/07/21 0415: [embedded image not available] 12/06/21 0445: [embedded image not available] current abx zyvox 6 unasyn 7 prior clindamycin 7 ceftriaxone 7 zosyn impression 1. 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 coli bacteremia (s=ceftriaxone, unasyn). wound cx ramya wed e. 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 acute renal insufficiency, also had atn/arf i n 10/2021 3. uncontrolled dm with neuropathy had complex hospital stay 10/09-10/22/21- had to be intubated per records 4. h/o covid - october 2021 5. obesity discussion leukocytosis resolved grew e.coli and enterococcus from foot wound 10/10 (sensitive isolates) was sent home on amoxicillin and started on clin damycin as outpt after seeing film and video graphics designer recs 1. ceftriaxone 2 gm iv q24h and daptomycin 1 gm iv q24h for 6 weeks. end date: . 2. oral metronidazole for 2 additional weeks. en d date: 12/21/21. 3. picc line 4. watch cbc diff and kidney function/cr closely 5. wound care 6. cm consulted. pt going home as her insurance does not cover snf services. 7. pt can be discharged from id standpoint. electronically signed by pro bustamante md on 12/07/21 at 1251 rpt #: [id number] end of report 2021-12-07 12:41:00-00:00 [facility] ([facility]) hospitalist progress note report#:[id number] report status: signed date:12/07/21 time:1241 patient: harleen manzano unit #: [id number] room/bed: [place] [address] : 80 age: 41 sex: f attend: samanta castle md adm dt: 11/25/21 author: prakash larsen md * all edits or amendments must be made on the [employer]/computer document * subjective chief complaint: no complaints today review of systems respiratory: denies: sob. cardiovascular: denies: chest pain. gi: denies: nausea, vomiting. objective general vs/i o: vital signs: date time temp pulse resp b/p b/p pulse o2 o2 f low fio2 mean ox delivery rate 12/07 1150 37.0 77 16 157/80 105.6 100 12/07 1132 36.7 12/07 1128 79 18 135/83 100 97 nasal 2 cannula 12/07 0806 36.4 82 18 143/86 105.0 99 12/07 0412 36.7 85 17 129/85 100.0 99 12/07 0024 36.5 76 16 125/82 96.4 99 12/06 2006 36.4 88 16 154/95 114.6 100 room air 12/06 1627 36.5 83 18 159/93 115.2 99 room air 24 hour i o ending at 0700: 12/07 0700 12/06 1900 intake total 490.00 output total balance 490.00 intake, iv 250.00 intake, oral 240 number voids 1 patient weight: weight (lb): 365 weight (oz): 12.27 weight (kg): 165.561 physical exam general appearance: alert, awake cardiovascular: normal capillary refill, regular rate rhythm respiratory: clear to auscultation, no distress abdomen: non-tender, normal bowel sounds, soft, no distention extremities: moves all, normal capillary refill, normal range of motion, no edema neuro/insurance risk surveyor: alert, oriented x 3 diagnosis, assessment plan free text dxa p notes free text dxa p notes: sepsis with osteomyelitis of the left foot follow infectious work-up in cluding blood cultures-blood culture november 25 with e. 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 orthopedics thinks that they did not get the margins cleared up so will need 6 weeks of iv antibiotics monitor hemodynamic status closely postoperative care as per orthopedics. have also involved wound care as requested by orthopedics. id also on board as per id wound cultures are growing enterococcu s and possibly e. coli. still pending final sensitivity and identification in the system but as per id enterococcus is vre. started on linezolid and un asyn probably discharged on daptomycin. left foot osteo- see above e. coli bacteremia patient blood culture growing e. coli pansensiti ve. most probable source appears to be left foot osteo and abscess. repea t blood cultures negative so far. already got picc line.. id on board. diabetes mellitus continue with insulin lantus. keep on insulin sl iding scale and premeal insulin. monitor blood sugars. patient refused long-acting insulin this morning renal dysfunction patient actually had atn in october and creatinine was slowly improving but then again deteriorated. could be related to the surg krissy. nephrology on board thinks there could be some prerenal component. s top iv fluids. continue to monitor renal function avoid nephrotoxic medicat ion anemia in the postoperative phase. monitor h h. improved abnormal chest x-ray does seem to be some artifact. 2 view x-ray did show that it was overreading. dvt prophylaxis patient is full code disposition patient has no insurance coverage for [facility] nursing, patient will need to go home with iv antibiotics, discussed with case teo richard electronically signed by prakash larsen md on at 1241 rpt #: [id number] end of report 2021-12-06 12:42:00-00:00 [facility] ([facility]) hospitalist progress note report#:[id number] report status: signed date:12/06/21 time:1242 patient: harleen manzano unit #: [id number] room/bed: [place] [address] : 80 age: 41 sex: f attend: samnata castle md adm dt: 11/25/21 author: prakash larsen md * all edits or amendments must be made on the [employer]/computer document * subjective chief complaint: no complaints today review of systems respiratory: denies: sob. cardiovascular: denies: chest pain. gi: denies: nausea, vomiting. objective general vs/i o: vital signs: date time temp pulse resp b/p b/p pulse o2 o2 f low fio2 mean ox delivery rate 12/06 1055 36.4 87 18 143/85 104.1 99 room air 12/06 0800 37.5 90 18 152/93 112.7 100 room air 12/06 0452 36.8 86 14 134/81 98.3 99 room air 12/05 2355 36.4 86 18 142/85 104.0 100 12/05 2153 36.5 95 17 153/95 113.9 100 room air 12/05 1532 36.4 80 17 135/89 104.6 100 room air patient weight: weight (lb): 365 weight (oz): 12.27 weight (kg): 165.561 physical exam general appearance: alert, awake cardiovascular: normal capillary refill, regular rate rhythm respiratory: clear to auscultation, no distress abdomen: non-tender, normal bowel sounds, soft, no distention extremities: moves all, normal capillary refill, normal range of motion, no edema neuro/insurance risk surveyor: alert, oriented x 3 diagnosis, assessment plan free text dxa p notes free text dxa p notes: sepsis with osteomyelitis of the left foot follow infectious work-up in cluding blood cultures-blood culture november 25 with e. 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 orthopedics thinks that they did not get the margins cleared up so will need 6 weeks of iv antibiotics monitor hemodynamic status closely postoperative care as per orthopedics. have also involved wound care as requested by orthopedics. id also on board as per id wound cultures are growing enterococcu s and possibly e. coli. still pending final sensitivity and identification in the system but as per id enterococcus is vre. started on linezolid and un asyn probably discharged on daptomycin. left foot osteo- see above e. coli bacteremia patient blood culture growing e. coli pansensiti ve. most probable source appears to be left foot osteo and abscess. repea t blood cultures negative so far. already got picc line.. id on board. diabetes mellitus continue with insulin lantus. keep on insulin sl iding scale and premeal insulin. monitor blood sugars. patient refused long-acting insulin this morning renal dysfunction patient actually had atn in october and creatinine was slowly improving but then again deteriorated. could be related to the surg krissy. nephrology on board thinks there could be some prerenal component. s top iv fluids. continue to monitor renal function avoid nephrotoxic medicat ion anemia in the postoperative phase. monitor h h. improved abnormal chest x-ray does seem to be some artifact. 2 view x-ray did show that it was overreading. dvt prophylaxis patient is full code disposition patient has no insurance coverage for [facility] nursing, patient will need to go home with iv antibiotics, discussed with case teo richard electronically signed by prakash larsen md on at 1247 rpt #: [id number] end of report 2021-12-06 11:39:00-00:00 [facility] ([facility]) infectious dis. progress note report#:[id number] report status: signed date:12/06/21 time:1139 patient: harleen manzano unit #: [id number] room/bed: [place] [address] : 80 age: 41 sex: f attend: samanta castle md adm dt: 11/25/21 author: pro bustamante md * all edits or amendments must be made on the el [employer]/computer document * subjective chief complaint: foot infection, left hpi: wbc remains normal, pt remains on unasyn and holland ezolid. review of systems constitutional: denies: fever. objective physical exam general appearance: alert, awake head/eyes: atraumatic, normocephalic cardiovascular: normal heart sounds respiratory: clear to auscultation, no distress abdomen: non-tender, soft, no distention extremities: no cyanosis neuro/insurance risk surveyor: alert, oriented x 3 skin: no rash diagnosis, assessment plan free text a p: laboratory tests 12/06/21 0445: [embedded image not available] current abx zyvox 5 unasyn 6 prior clindamycin 7 ceftriaxone 7 zosyn impression 1. 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 coli bacteremia (s=ceftriaxone, unasyn). wound cx ramya wed e. 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 acute renal insufficiency, also had atn/arf i n 10/2021 3. uncontrolled dm with neuropathy had complex hospital stay 10/09-10/22/21- had to be intubated per records 4. h/o covid - october 2021 5. obesity discussion leukocytosis resolved grew e.coli and enterococcus from foot wound 10/10 (sensitive isolates) was sent home on amoxicillin and started on clin damycin as outpt after seeing film and video graphics designer recs 1. ceftriaxone 2 gm iv q24h and daptomycin 1 gm iv q24h for 6 weeks. end datel . 2. oral metronidazole for 2 additional weeks. en d date: 12/21/21. 3. picc line 4. watch cbc diff and kidney function/cr closely 5. wound care 6. cm consulted. pt going home as her insurance does not cover snf services. electronically signed by pro bustamnate md on 12/06/21 at 1201 rpt #: [id number] end of report 2021-12-05 18:26:00-00:00 [facility] ([facility]) wound care progress note report#:[id number] report status: signed date:12/05/21 time:1825 patient: harleen manzano unit #: [id number] room/bed: [facility]1 : 80 age: 41 sex: f attend: samanta castle md adm dt: 11/25/21 author: jonathan hernandez md * all edits or amendments must be made on the el [employer]/computer document * subjective chief complaint: wound care hpi: i carried out the wound care at bedside patient reports: yes: able to communicate, drainage from wound, f eeling better. no: odor. objective general vs: last documented: result date time pulse ox 100 12/05 153 b/p 135/89 12/06 1531 b/p mean 104.6 12/05 153 o2 delivery room air 12/06 1531 temp 97.5 12/06 1531 pulse 80 12/05 153 resp 17 12/05 153 patient weight: weight (lb): 365 weight (oz): 12.27 weight (kg): 165.561 medications: active meds + dc'd last 24 hrs alteplase, recombinant (cathflo activase) 2 mg a sdir iv (ckd) sterile water (water for injection) 2.2 ml linezolid (zyvox) 600 mg q12hr po insulin glargine (lantus/semglee) 22 unit q12h s ubq insulin human lispro (humalog) 4 unit ac subq ampicillin sodium/sulbactam sodium (unasyn 3 gm) 3 gm q6hr iv sodium chloride (sodium chloride 0.9%) 100 ml loratadine (claritin) 10 mg daily po docusate sodium (colace) 100 mg bid po ondansetron hcl (zofran) 8 mg q8h prn prn po ondansetron hcl (zofran) 8 mg q8h prn prn iv non-formulary medication (vancomycin trough bisi nder) 1 each asdir misc dextrose/water (dextrose 50% w syringe) 25 ml as dir prn iv (ckd) dextrose/water (dextrose 50% w syringe) 50 ml as dir prn iv (ckd) glucagon (glucagon) 1 mg asdir prn im heparin sodium (porcine) (heparin sodium) 5,000 unit q8hr subq insulin human lispro (humalog) 0 ac hs subq metoprolol tartrate (lopressor) 25 mg q12hr po hydralazine hcl (apresoline) 10 mg q6h prn prn i v hydrocodone bitart/acetaminophen (norco 10/325) 1 tab q6h prn prn po lactulose (lactulose) 20 gm q6h prn prn po ondansetron hcl (zofran odt) 4 mg q4h prn prn po tramadol hcl (ultram) 50 mg q6h prn prn po nutrition assessment: the data set between the solid lines has been im ported from the dietitian's assessment. any exceptions have been noted under provider comments. bmi calculated: 50.9 nutrition related diagnosis: nutrition diagnosis details: nutrition problem: nutrition etiology: nutrition signs and symptoms: nutrition prescription: dietitian name: assessment completed: provider comments on imported dietitian assessme nt: physical exam general appearance: chronically ill appearing neck: no jvd abdomen: non-tender extremities: no edema wound assessment wound assessment 1: type/cause: post-op wound location: foot tissue layers: limited to skin breakdown diagnosis, assessment plan problem list/a p: 1. wound of left foot cont daily dressing changes while in ho use. use my same home health order for discharge lavage the wound cavity with saline pack with aquacel ag cover with nonwoven gauze kerlix wrap then miguel band as secondary change dressings daily 2. obesity advised weight loss to help with pressure reduc tion. 3. type i diabetes mellitus with hyperosmolarit y, uncontrolled arterial dopplers negative for any pad 4. jayleen (acute kidney injury) consultants: infectious disease, nephrology, ort hopedics electronically signed by jonathan hernandez md on at 1827 rpt #: [id number] end of report 2021-12-05 10:58:00-00:00 [facility] ([facility]) hospitalist progress note report#:[id number] report status: signed date:12/05/21 time:1057 patient: harleen manzano unit #: [id number] room/bed: [place] [address] : 80 age: 41 sex: f attend: samanta castle md adm dt: 11/25/21 author: prakash larsen md * all edits or amendments must be made on the [employer] document * subjective chief complaint: no complaints today review of systems respiratory: denies: sob. cardiovascular: denies: chest pain. gi: denies: nausea, vomiting. objective general vs/i o: vital signs: date time temp pulse resp b/p b/p pulse o2 o2 f low fio2 mean ox delivery rate 12/05 0711 91 132/83 99.4 99 room air 12/05 0344 36.8 85 14 126/79 94.5 95 12/04 2354 36.4 79 14 147/87 107.1 99 12/04 1941 36.4 89 14 155/89 111.4 99 12/04 1603 36.4 85 17 143/91 108.0 99 room air 12/04 1102 36.5 82 17 132/84 99.8 100 room air patient weight: weight (lb): 365 weight (oz): 12.27 weight (kg): 165.561 physical exam general appearance: alert, awake cardiovascular: normal capillary refill, regular rate rhythm respiratory: clear to auscultation, no distress abdomen: non-tender, normal bowel sounds, soft, no distention extremities: moves all, normal capillary refill, normal range of motion, no edema neuro/insurance risk surveyor: alert, oriented x 3 free text obj notes free text obj notes: physical examination patient is a pleasant person lying on the bed does not appear to be in distress heent pupils equal round reactive light and acco mmodating normocephalic/ atraumatic skull normal oral mucosa neck supple no jvd chest clear bilateral entry no wheeze or crackle s cvs s1-s2 no murmur rubs or gallop abdomen soft nontender bowel sounds positive extremities no pedal edema pulses palpable left foot fifth metatarsal under the bandage whi ch was not open insurance risk surveyor alert oriented x3 moving all 4 extremities d ecrease sensation bilateral lower extremity up to chaney psych examination normal mood diagnosis, assessment plan free text dxa p notes free text dxa p notes: sepsis with osteomyelitis of the left foot follow infectious work-up in cluding blood cultures-blood culture november 25 with e. 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 orthopedics thinks that they did not get the margins cleared up so will need 6 weeks of iv antibiotics monitor hemodynamic status closely postoperative care as per orthopedics. have also involved wound care as requested by orthopedics. id also on board as per id wound cultures are growing enterococcu s and possibly e. coli. still pending final sensitivity and identification in the system but as per id enterococcus is vre. started on linezolid and un asyn probably discharged on daptomycin. left foot osteo- see above e. coli bacteremia patient blood culture growing e. coli pansensiti ve. most probable source appears to be left foot osteo and abscess. repea t blood cultures negative so far. already got picc line.. id on board. diabetes mellitus continue with insulin lantus. keep on insulin sl iding scale and premeal insulin. monitor blood sugars. renal dysfunction patient actually had atn in october and creatinine was slowly improving but then again deteriorated. could be related to the surg krissy. nephrology on board thinks there could be some prerenal component. s top iv fluids. continue to monitor renal function avoid nephrotoxic medicat ion anemia in the postoperative phase. monitor h h. improved abnormal chest x-ray does seem to be some artifact. 2 view x-ray did show that it was overreading. dvt prophylaxis patient is full code disposition patient has no insurance coverage for [facility] nursing, patient will need to go home with iv antibiotics, discussed with case teo martinmarlyn electronically signed by prakash larsen md on at 1215 rpt #: [id number] end of report 2021-12-04 22:10:00-00:00 [facility] ([facility]) wound care progress note report#:[id number] report status: signed date:12/04/21 time:2209 patient: harleen manzano unit #: [id number] room/bed: [place] [address] : 80 age: 41 sex: f attend: samanta castle md adm dt: 11/25/21 author: jonathan hernandez md * all edits or amendments must be made on the el [employer]/computer document * subjective chief complaint: wound care hpi: ortho requested daily dressing changes patient reports: yes: able to communicate, drainage from wound, f eeling better. no: odor. objective general vs: last documented: result date time pulse ox 99 12/04 1940 b/p 155/89 12/04 1940 b/p mean 111.4 12/04 1940 temp 97.5 12/04 1940 pulse 89 12/04 1940 resp 14 12/04 1940 o2 delivery room air 12/04 1603 patient weight: weight (lb): 365 weight (oz): 12.27 weight (kg): 165.561 medications: active meds + dc'd last 24 hrs linezolid (zyvox) 600 mg q12hr po insulin glargine (lantus/semglee) 22 unit q12h s ubq insulin human lispro (humalog) 4 unit ac subq ampicillin sodium/sulbactam sodium (unasyn 3 gm) 3 gm q6hr iv sodium chloride (sodium chloride 0.9%) 100 ml insulin glargine (lantus/semglee) 25 unit q12h s ubq (dc) insulin human lispro (humalog) 3 unit ac subq (d c) loratadine (claritin) 10 mg daily po linezolid (zyvox 600mg/ d5w 300ml) 300 ml q12h i v (dc) ampicillin sodium/sulbactam sodium (unasyn 3 gm) 3 gm q8h iv (dc) sodium chloride (sodium chloride 0.9%) 100 ml docusate sodium (colace) 100 mg bid po ondansetron hcl (zofran) 8 mg q8h prn prn po ondansetron hcl (zofran) 8 mg q8h prn prn iv non-formulary medication (vancomycin trough bisi nder) 1 each asdir misc dextrose/water (dextrose 50% w syringe) 25 ml a sdir prn iv (ckd) dextrose/water (dextrose 50% w syringe) 50 ml as dir prn iv (ckd) glucagon (glucagon) 1 mg asdir prn im heparin sodium (porcine) (heparin sodium) 5,000 unit q8hr subq insulin human lispro (humalog) 0 ac hs subq metoprolol tartrate (lopressor) 25 mg q12hr po hydralazine hcl (apresoline) 10 mg q6h prn prn i v hydrocodone bitart/acetaminophen (norco 10/325) 1 tab q6h prn prn po lactulose (lactulose) 20 gm q6h prn prn po ondansetron hcl (zofran odt) 4 mg q4h prn prn po tramadol hcl (ultram) 50 mg q6h prn prn po nutrition assessment: the data set between the solid lines has been im ported from the dietitian's assessment. any exceptions have been noted under provider comments. bmi calculated: 50.9 nutrition related diagnosis: nutrition diagnosis details: nutrition problem: nutrition etiology: nutrition signs and symptoms: nutrition prescription: dietitian name: assessment completed: provider comments on imported dietitian assessme nt: physical exam general appearance: chronically ill appearing neck: no jvd abdomen: non-tender extremities: no edema wound assessment wound assessment 1: type/cause: post-op wound location: foot tissue layers: limited to skin breakdown diagnosis, assessment plan problem list/a p: 1. wound of left foot escalate to daily dressing changes while in sharifa se lavage the wound cavity with saline pack with aquacel ag cover with nonwoven gauze kerlix wrap then miguel band as secondary change dressings daily 2. obesity advised weight loss to help with pressure reduc tion. 3. type i diabetes mellitus with hyperosmolarit y, uncontrolled arterial dopplers negative for any pad 4. jayleen (acute kidney injury) consultants: infectious disease, nephrology, ort hopedics electronically signed by jonathan hernandez md on at 2213 rpt #: [id number] end of report 2021-12-04 11:40:00-00:00 [facility] ([facility]) hospitalist progress note report#:[id number] report status: signed date:12/04/21 time:1140 patient: harleen manzano unit #: [id number] room/bed: [place] [address] : 80 age: 41 sex: f attend: samanta castle md adm dt: 11/25/21 author: yusuf castle md * all edits or amendments must be made on the [employer]/computer document * subjective chief complaint: fevers nausea vomiting comments: .patient lying on the bed feels better objective general vs/i o: vital signs: date time temp pulse resp b/p b/p pulse o2 o2 f low fio2 mean ox delivery rate 12/04 1102 97.7 82 17 132/84 99.8 100 room air 12/04 0715 98.1 91 18 105/62 76.3 97 room air 12/04 0514 98.4 90 18 124/77 93.0 98 12/04 0000 97.5 87 18 144/90 107.7 100 12/03 1956 98.1 12/03 1946 87 18 134/81 99.0 100 12/03 1554 97.5 91 14 141/92 108.1 100 room ai r 24 hour i o ending at 0700: 12/04 0700 12/03 1900 intake total 870.00 1290.00 output total 280 balance 590.00 1290.00 intake, iv 540.00 420.00 intake, oral 330 870 number voids 2 output, urine 280 patient weight: weight (lb): 365 weight (oz): 12.27 weight (kg): 165.561 medications: active meds + dc'd last 24 hrs linezolid (zyvox) 600 mg q12hr po insulin glargine (lantus/semglee) 22 unit q12h subq (unv) insulin human lispro (humalog) 4 unit ac subq (u nv) ampicillin sodium/sulbactam sodium (unasyn 3 gm) 3 gm q6hr iv sodium chloride (sodium chloride 0.9%) 100 ml insulin glargine (lantus/semglee) 25 unit q12h s ubq (dcr) insulin human lispro (humalog) 3 unit ac subq (d cr) loratadine (claritin) 10 mg daily po linezolid (zyvox 600mg/ d5w 300ml) 300 ml q12h i v (dc) ampicillin sodium/sulbactam sodium (unasyn 3 gm) 3 gm q8h iv (dc) sodium chloride (sodium chloride 0.9%) 100 ml docusate sodium (colace) 100 mg bid po ondansetron hcl (zofran) 8 mg q8h prn prn po ondansetron hcl (zofran) 8 mg q8h prn prn iv non-formulary medication (vancomycin trough bisi nder) 1 each asdir misc insulin glargine (lantus/semglee) 30 unit q12h s ubq (dc) insulin human lispro (humalog) 5 unit ac subq (d c) dextrose/water (dextrose 50% w syringe) 25 ml as dir prn iv (ckd) dextrose/water (dextrose 50% w syringe) 50 ml as dir prn iv (ckd) glucagon (glucagon) 1 mg asdir prn im heparin sodium (porcine) (heparin sodium) 5,000 unit q8hr subq insulin human lispro (humalog) 0 ac hs subq metoprolol tartrate (lopressor) 25 mg q12hr po hydralazine hcl (apresoline) 10 mg q6h prn prn i v hydrocodone bitart/acetaminophen (norco 10/325) 1 tab q6h prn prn po lactulose (lactulose) 20 gm q6h prn prn po ondansetron hcl (zofran odt) 4 mg q4h prn prn po tramadol hcl (ultram) 50 mg q6h prn prn po results findings/data: laboratory tests 12/04 12/03 12/03 0713 2006 1551 chemistry poc glucose (70 - 110 mg/dl) 79 212 h 142 h results: labs reviewed, current med profile rev' d free text obj notes free text obj notes: physical examination patient is a pleasant person lying on the bed does not appear to be in distress heent pupils equal round reactive light and acco mmodating normocephalic/ atraumatic skull normal oral mucosa neck supple no jvd chest clear bilateral entry no wheeze or crackle s cvs s1-s2 no murmur rubs or gallop abdomen soft nontender bowel sounds positive extremities no pedal edema pulses palpable left foot fifth metatarsal under the bandage whi ch was not open insurance risk surveyor alert oriented x3 moving all 4 extremities d ecrease sensation bilateral lower extremity up to chaney psych examination normal mood diagnosis, assessment plan consultants: infectious disease, nephrology, ort hopedics free text dxa p notes free text dxa p notes: sepsis with osteomyelitis of the left foot follow infectious work-up including blood cultur es orthopedics consulted status post amputation of 5th ray, i d of 4th to e mtp joint. orthopedics thinks that they did not get the margins cleared up so will need 6 weeks of iv antibiotics monitor hemodynamic status closely postoperative care as per orthopedics. have also involved wound care as requested by orthopedics. id also on board as per id wound cultures are growing enterococcu s and possibly e. coli. still pending final sensitivity and identification in the system but as per id enterococcus is vre. started on linezolid and un asyn probably discharged on daptomycin. left foot osteo- see above e. coli bacteremia patient blood culture growing e. coli pansensiti ve. most probable source appears to be left foot osteo and abscess. repea t blood cultures negative so far. already got picc line.. id on board. diabetes mellitus continue with insulin lantus. keep on insulin sl iding scale and premeal insulin. monitor blood sugars. renal dysfunction patient actually had atn in october and creatinine was slowly improving but then again deteriorated. could be related to the surg krissy. nephrology on board thinks there could be some prerenal component. s top iv fluids. continue to monitor renal function avoid nephrotoxic medicat ion anemia in the postoperative phase. monitor h h. improved abnormal chest x-ray does seem to be some artifact. 2 view x-ray did show that it was overreading. dvt prophylaxis patient is full code patient was explained the pl an in detail all medication effect side effects were discussed all questions answered she agreed with the plan possible skilled placement versus rehab versus h ome with home health electronically signed by yusuf castle md on at 1143 rpt #: [id number] end of report 2021-12-04 10:39:00-00:00 [facility] ([facility] nephrology progress note report#:[id number] report status: signed date:12/04/21 time:1039 patient: harleen manzano unit #: [id number] room/bed: [place] [address] : 80 age: 41 sex: f attend: samanta castle md adm dt: 11/25/21 author: jaylen harrison md * all edits or amendments must be made on the [employer]/computer document * subjective hpi: no events, no cp, no sob, no n/v/abd pain objective general vs/i o: vital signs: date time temp pulse resp b/p b/p pulse o2 o2 f low fio2 mean ox delivery rate 12/04 0715 36.7 91 18 105/62 76.3 97 room air 12/04 0514 36.9 90 18 124/77 93.0 98 12/04 0000 36.4 87 18 144/90 107.7 100 12/03 1956 36.7 12/03 1946 87 18 134/81 99.0 100 12/03 1554 36.4 91 14 141/92 108.1 100 room air 12/03 1138 36.8 80 14 152/82 105.4 100 room air 24 hour i o ending at 0700: 12/04 0700 12/03 1900 intake total 870.00 1290.00 output total 280 balance 590.00 1290.00 intake, iv 540.00 420.00 intake, oral 330 870 number voids 2 output, urine 280 patient weight: weight (lb): 365 weight (oz): 12.27 weight (kg): 165.561 physical exam general appearance: no acute distress head/eyes: atraumatic neck: supple/no meningismus cardiovascular: regular rate and rhythm respiratory: clear to auscultation abdomen: soft extremities: no edema neuro/insurance risk surveyor: alert psychiatry: normal mood diagnosis, assessment plan free text a p: assessment/plan: jayleen on ckd-iiia likely due to atn. indices rowan r, continue to monitor volume status now ok, off ivf lytes, acid-base acceptable ok to dc home from renal standpoint electronically signed by jaylen harrison md on 12/04/21 at 1039 rpt #: [id number] end of report 2021-12-04 10:34:00-00:00 [facility] ([facility]) infectious dis. progress note report#:[id number] report status: signed date:12/04/21 time:1034 patient: harleen manzano unit #: [id number] room/bed: [place] [address] : 80 age: 41 sex: f attend: samanta castle md adm dt: 11/25/21 author: donna vieyra md * all edits or amendments must be made on the [employer]/computer document * subjective chief complaint: foot infection, left hpi: no more itching events noted no other new complaints review of systems constitutional: denies: fever. skin: denies: rash. objective general vs/i o: vital signs date temp pulse resp b/p b/p mean pulse ox fio2 12/03-12/04 36.4-36.9 80-91 14-18 105-152/62-92 76.3-108.1 97-100 last documented: result date time pulse ox 97 12/04 714 b/p 105/62 12/04 714 b/p mean 76.3 12/04 07 o2 delivery room air 12/04 714 temp 36.7 12/04 07 pulse 91 12/04 0715 resp 18 12/04 714 vital signs: date time temp pulse resp b/p b/p pulse o2 o2 f low fio2 mean ox delivery rate 12/04 0715 36.7 91 18 105/62 76.3 97 room air 12/04 0514 36.9 90 18 124/77 93.0 98 12/04 0000 36.4 87 18 144/90 107.7 100 12/03 1956 36.7 12/03 1946 87 18 134/81 99.0 100 12/03 1554 36.4 91 14 141/92 108.1 100 room air 12/03 1138 36.8 80 14 152/82 105.4 100 room air 24 hour i o ending at 0700: 12/04 0700 12/03 1900 intake total 870.00 1290.00 output total 280 balance 590.00 1290.00 intake, iv 540.00 420.00 intake, oral 330 870 number voids 2 output, urine 280 patient weight: weight (lb): 365 weight (oz): 12.27 weight (kg): 165.561 physical exam general appearance: awake head/eyes: atraumatic, normocephalic ent: moist mucosal membranes neck: no masses or swelling cardiovascular: normal heart sounds respiratory: clear to auscultation, no distress abdomen: non-tender, soft, no distention genitourinary: no flank pain extremities: no cyanosis musculoskeletal: no joint swelling neuro/insurance risk surveyor: alert, oriented x 3 skin: no rash psychiatry: normal affect diagnosis, assessment plan free text a p: laboratory tests 12/02/21 0425: [embedded image not available] 12/01/21 0515: [embedded image not available] mar was reviewed current abx zyvox 3 unasyn 4 prior clindamycin 7 ceftriaxone 7 zosyn impression 1. 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 coli bacteremia (s=ceftriaxone, unasyn). wound cx ramya wed e. 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 acute renal insufficiency, also had atn/arf i n 10/2021 3. uncontrolled dm with neuropathy had complex hospital stay 10/09-10/22/21- had to be intubated per records 4. h/o covid - october 2021 5. obesity discussion leukocytosis resolved grew e.coli and enterococcus from foot wound 10/10 (sensitive isolates) was sent home on amoxicillin and started on clin damycin as outpt after seeing film and video graphics designer recs 1. unasyn (which covers e. coli and anaerobes)- jenae adjust dose 2. start daptomycin 1000 mg iv daily for vre at time of dc; is on zyvox while here cpk from yesterday is 64 3. duration: 6 weeks. end date: 01/05/22. 4. picc line 5. watch cbc diff and kidney function/cr closely 6. wound care 7.no more itching- no rash seen could be from xerosis/ dryness 8. will need lab monitoring by physician at facility- at least weekly cbc diff, cmp, esr, crp, cpk consultants: infectious disease, nephrology, ort hopedics electronically signed by donna vieyra md on at 1520 rpt #: [id number] end of report 2021-12-04 09:54:00-00:00 [facility] ([facility]) orthopaedic progress note report#:[id number] report status: signed date:12/04/21 time:953 patient: harleen manzano unit #: [id number] room/bed: [place] [address] : 80 age: 41 sex: f attend: samanta castle md adm dt: 11/25/21 author: jose garland * all edits or amendments must be made on the el [employer]/computer document * subjective hpi: 7 days s/p left foot i d with amputation of 5th ray, i d of 4th toe mtp joint she has been doing well. able to ambulate with post op shoe wound care is on board for dressing change she denies any drainage objective vs: last documented: result date time pulse ox 97 12/04 0715 b/p 105/62 12/04 0715 b/p mean 76.3 12/04 0715 o2 delivery room air 12/04 714 temp 98.1 12/04 0715 pulse 91 12/04 0715 resp 18 12/04 0715 patient weight: weight (lb): 365 weight (oz): 12.27 weight (kg): 165.561 free text obj notes free text obj notes: wound: clean, dry with open wound on plantar lat eral aspect of foot diagnosis, assessment plan free text a p: diagnosis, assessment plan free text a p: 7 days s/p left foot i d with amputation of 5th ray, i d of 4th toe mtp joint plan: continue dressing change as per wound care recom mendation continue pt patient can be discharged once cleared by admitt ing team, and id team for iv antibioics consultants: infectious disease, nephrology, ort hopedics electronically signed by jose garland on 12/04/21 at 0959 rpt #: [id number] end of report 2021-12-03 16:41:00-00:00 [facility] ([facility]) wound care progress note report#:[id number] report status: signed date:12/03/21 time:164 patient: harleen manzano unit #: [id number] room/bed: [place] [address] : 80 age: 41 sex: f attend: samanta castle md adm dt: 11/25/21 author: jonathan hernandez md * all edits or amendments must be made on the el [employer]/computer document * subjective chief complaint: wound care hpi: no acute events unable to obtain: medical condition objective general vs: last documented: result date time pulse ox 100 12/04 1102 b/p 132/84 12/04 1102 b/p mean 99.8 12/04 1102 o2 delivery room air 12/04 110 temp 97.7 12/04 1102 pulse 82 12/04 1102 resp 17 12/04 1102 patient weight: weight (lb): 365 weight (oz): 12.27 weight (kg): 165.561 medications: active meds + dc'd last 24 hrs linezolid (zyvox) 600 mg q12hr po insulin glargine (lantus/semglee) 22 unit q12h s ubq insulin human lispro (humalog) 4 unit ac subq ampicillin sodium/sulbactam sodium (unasyn 3 gm) 3 gm q6hr iv sodium chloride (sodium chloride 0.9%) 100 ml insulin glargine (lantus/semglee) 25 unit q12h s ubq (dc) insulin human lispro (humalog) 3 unit ac subq (d c) loratadine (claritin) 10 mg daily po linezolid (zyvox 600mg/ d5w 300ml) 300 ml q12h i v (dc) ampicillin sodium/sulbactam sodium (unasyn 3 gm) 3 gm q8h iv (dc) sodium chloride (sodium chloride 0.9%) 100 ml docusate sodium (colace) 100 mg bid po ondansetron hcl (zofran) 8 mg q8h prn prn po ondansetron hcl (zofran) 8 mg q8h prn prn iv non-formulary medication (vancomycin trough bisi nder) 1 each asdir misc dextrose/water (dextrose 50% w syringe) 25 ml as dir prn iv (ckd) dextrose/water (dextrose 50% w syringe) 50 ml as dir prn iv (ckd) glucagon (glucagon) 1 mg asdir prn im heparin sodium (porcine) (heparin sodium) 5,000 unit q8hr subq insulin human lispro (humalog) 0 ac hs subq metoprolol tartrate (lopressor) 25 mg q12hr po hydralazine hcl (apresoline) 10 mg q6h prn prn i v hydrocodone bitart/acetaminophen (norco 10/325) 1 tab q6h prn prn po lactulose (lactulose) 20 gm q6h prn prn po ondansetron hcl (zofran odt) 4 mg q4h prn prn po tramadol hcl (ultram) 50 mg q6h prn prn po nutrition assessment: the data set between the solid lines has been im ported from the dietitian's assessment. any exceptions have been noted under provider comments. bmi calculated: 50.9 nutrition related diagnosis: nutrition diagnosis details: nutrition problem: nutrition etiology: nutrition signs and symptoms: nutrition prescription: dietitian name: assessment completed: provider comments on imported dietitian assessme nt: physical exam general appearance: obese neck: no jvd abdomen: non-tender extremities: no edema wound assessment wound assessment 1: type/cause: post-op wound location: foot tissue layers: limited to skin breakdown diagnosis, assessment plan problem list/a p: 1. wound of left foot lavage the wound cavity with saline pack with aquacel ag cover with nonwoven gauze kerlix wrap then miguel band as secondary change dressing on tuesday, tuesday, s unday 2. obesity advised weight loss to help with pressure reduc tion. 3. type i diabetes mellitus with hyperosmolarit y, uncontrolled arterial dopplers negative for any pad 4. jayleen (acute kidney injury) consultants: infectious disease, nephrology, ort hopedics electronically signed by jonathan hernandez md on at 1535 rpt #: [id number] end of report 2021-12-03 12:04:00-00:00 [facility] ([facility]) hospitalist progress note report#:[id number] report status: signed date:12/03/21 time:1204 patient: harleen manzano unit #: [id number] room/bed: [place] [address] : 80 age: 41 sex: f attend: samanta castle md adm dt: 11/25/21 author: yusuf castle md * all edits or amendments must be made on the el [employer]/computer document * subjective chief complaint: fevers nausea vomiting comments: patient lying on the bed feels better di d mention that she had some itching in the past few days but no rash objective general vs/i o: vital signs: date time temp pulse resp b/p b/p pulse o2 o2 f low fio2 mean ox delivery rate 12/03 1138 98.2 80 14 152/82 105.4 100 room air 12/03 0819 97.7 80 14 111/71 84.3 97 room air 12/03 0425 98.2 86 18 139/83 101.4 99 12/02 2358 97.9 85 16 103/69 80.3 97 room air 12/02 1946 97.7 90 16 152/93 113.0 99 room air 12/02 1600 97.7 84 14 147/84 105 99 room air 12/02 1533 97.7 84 14 147/84 105.1 99 room air 24 hour i o ending at 0700: 12/03 0700 12/02 1900 intake total 540.00 1260.00 output total 280 balance 540.00 980.00 intake, iv 420.00 100.00 intake, oral 120 1160 number voids 4 output, 280 emesis patient 165.561 kg weight patient weight: weight (lb): 365 weight (oz): 12.27 weight (kg): 165.561 medications: active meds + dc'd last 24 hrs linezolid (zyvox 600mg/ d5w 300ml) 300 ml q12h i v daptomycin (cubicin 500mg) 1,000 mg q24h iv (can ) sodium chloride (sodium chloride 0.9%) 100 ml ampicillin sodium/sulbactam sodium (unasyn 3 gm) 3 gm q8h iv sodium chloride (sodium chloride 0.9%) 100 ml docusate sodium (colace) 100 mg bid po ondansetron hcl (zofran) 8 mg q8h prn prn po ondansetron hcl (zofran) 8 mg q8h prn prn iv non-formulary medication (vancomycin trough bisi nder) 1 each asdir misc insulin glargine (lantus/semglee) 30 unit q12h s ubq insulin human lispro (humalog) 5 unit ac subq dextrose/water (dextrose 50% w syringe) 25 ml as dir prn iv (ckd) dextrose/water (dextrose 50% w syringe) 50 ml as dir prn iv (ckd) glucagon (glucagon) 1 mg asdir prn im heparin sodium (porcine) (heparin sodium) 5,000 unit q8hr subq insulin human lispro (humalog) 0 ac hs subq metoprolol tartrate (lopressor) 25 mg q12hr po hydralazine hcl (apresoline) 10 mg q6h prn prn i v hydrocodone bitart/acetaminophen (norco 10/325) 1 tab q6h prn prn po lactulose (lactulose) 20 gm q6h prn prn po ondansetron hcl (zofran odt) 4 mg q4h prn prn po tramadol hcl (ultram) 50 mg q6h prn prn po results findings/data: laboratory tests 12/03 12/03 12/03 12/02 12/02 1135 0712 0315 1942 1531 chemistry sodium (134 - 147 mmol/l) 141 potassium (3.4 - 5.0 mmol/l) 3.5 chloride (100 - 108 mmol/l) 108 carbon dioxide (21 - 32 mmol/l) 26 bun (7 - 18 mg/dl) 11 creatinine (0.6 - 1.0 mg/dl) 1.8 h glomerular filtr rate (>60 estgfr) 40 l glucose (70 - 110 mg/dl) 128 h poc glucose (70 - 110 mg/dl) 85 124 h 151 h 183 h calcium (8.5 - 10.1 mg/dl) 8.5 phosphorus (2.5 - 4.9 mg/dl) 4.0 total creatine kinase (26 - 192 unit/l) 64 albumin (3.4 - 5.0 g/dl) 2.0 l results: labs reviewed, current med profile rev' d free text obj notes free text obj notes: physical examination patient is a pleasant person lying on the bed does not appear to be in distress heent pupils equal round reactive light and acco mmodating normocephalic/ atraumatic skull normal oral mucosa neck supple no jvd chest clear bilateral entry no wheeze or crackle s cvs s1-s2 no murmur rubs or gallop abdomen soft nontender bowel sounds positive extremities no pedal edema pulses palpable left foot fifth metatarsal under the bandage whi ch was not open insurance risk surveyor alert oriented x3 moving all 4 extremities d ecrease sensation bilateral lower extremity up to chaney psych examination normal mood diagnosis, assessment plan consultants: infectious disease, nephrology, ort hopejason free text dxa p notes free text dxa p notes: sepsis with osteomyelitis of the left foot continue with iv fluids follow infectious work-up including blood cultur es started on broad-spectrum antibiotics including vanco ceftriaxone and clindamycin. now switched to unasyn by infectiou s disease. orthopedics consulted status post i d and fifth metatarsal amputation. orthopedics thinks that they did not get the margins cleared up so will need 6 weeks of iv antibiotics monitor hemodynamic status closely postoperative care as per orthopedics. have also involved wound care as requested by orthopedics. id also on board as per id wound cultures are growing enterococcu s and possibly e. coli. still pending final sensitivity and identification in the system but as per id enterococcus is vre. started on linezolid probab ly discharged on daptomycin. left foot osteo- see above e. coli bacteremia patient blood culture growing e. coli pansensiti ve. most probable source appears to be left foot osteo and abscess. repea t blood cultures negative so far. already got picc line.. id on board. diabetes mellitus continue with insulin lantus. keep on insulin sl iding scale and premeal insulin. monitor blood sugars. renal dysfunction patient actually had atn in october and creatinine was slowly improving but then again deteriorated. could be related to the surg krissy. nephrology on board thinks there could be some prerenal component. s top iv fluids. continue to monitor renal function avoid nephrotoxic medicat ion anemia in the postoperative phase. monitor h h. improved abnormal chest x-ray does seem to be some artifact. 2 view x-ray did show that it was overreading. dvt prophylaxis patient is full code patient was explained the pl an in detail all medication effect side effects were discussed all questions answered she agreed with the plan possible skilled placement versus rehab versus h ome with home health electronically signed by yusuf castle md on at 1207 rpt #: [id number] end of report 2021-12-03 11:11:00-00:00 [facility]) infectious dis. progress note report#:[id number] report status: signed date:12/03/21 time:1111 patient: harleen manzano unit #: [id number] room/bed: po10-1 : 80 age: 41 sex: f attend: samanta castle md adm dt: 11/25/21 author: donna vieyra md * all edits or amendments must be made on the el [employer]/computer document * subjective chief complaint: foot infection, left hpi: c/o itching events noted review of systems constitutional: denies: fever. skin: denies: rash. objective general vs/i o: vital signs date temp pulse resp b/p b/p mean pulse ox fio2 12/02-12/03 36.5-36.8 80-90 14-18 103-152/69-93 80.3-113.0 97-99 last documented: result date time pulse ox 97 12/03 0819 b/p 111/71 12/03 0819 b/p mean 84.3 12/03 0819 o2 delivery room air 12/03 0819 temp 36.5 12/03 0819 pulse 80 12/03 0819 resp 14 12/03 0819 vital signs: date time temp pulse resp b/p b/p pulse o2 o2 f low fio2 mean ox delivery rate 12/03 0819 36.5 80 14 111/71 84.3 97 room air 12/03 0425 36.8 86 18 139/83 101.4 99 12/02 2358 36.6 85 16 103/69 80.3 97 room air 12/02 1946 36.5 90 16 152/93 113.0 99 room air 12/02 1600 36.5 84 14 147/84 105 99 room air 12/02 1533 36.5 84 14 147/84 105.1 99 room air 12/02 1200 36.5 80 14 135/90 105 98 room air 12/02 1130 36.5 80 14 135/90 105.3 98 room air 24 hour i o ending at 0700: 12/03 0700 12/02 1900 intake total 540.00 1260.00 output total 280 balance 540.00 980.00 intake, iv 420.00 100.00 intake, oral 120 1160 number voids 4 output, 280 emesis patient 165.561 kg weight patient weight: weight (lb): 365 weight (oz): 12.27 weight (kg): 165.561 physical exam general appearance: awake head/eyes: atraumatic, normocephalic ent: moist mucosal membranes neck: no masses or swelling cardiovascular: normal heart sounds respiratory: clear to auscultation, no distress abdomen: non-tender, soft, no distention genitourinary: no flank pain extremities: no cyanosis, le ft foot wound plantar, 5th toe, boggy area on dorsum with fluctuance musculoskeletal: no joint swelling neuro/insurance risk surveyor: alert, oriented x 3 skin: no rash psychiatry: normal affect diagnosis, assessment plan free text a p: laboratory tests 12/02/21 0425: [embedded image not available] 12/01/21 0515: [embedded image not available] mar was reviewed current abx zyvox 2 unasyn 3 prior clindamycin 7 ceftriaxone 7 zosyn impression 1. 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 coli bacteremia (s=ceftriaxone, unasyn). wound cx ramya wed e. coli, vre and coag-neg staph (msse) gas was present in tissue s/p partial amputation by ortho 11/27/21 s/p left 5th toe ray amputation and debridement 4th toe 12/01/21 2. acute renal insufficiency,n also had atn/arf in 10/2021 3. uncontrolled dm with neuropathy had complex hospital stay 10/09-10/22/21- had to be intubated per records 4. h/o covid - october 2021 5. obesity discussion leukocytosis resolved grew e.coli and enterococcus from foot wound 10/10 (sensitive isolates) was sent home on amoxicillin and started clindam ycin as outpt after seeing film and video graphics designer recs 1. unasyn (which covers e. coli and anaerobes) 2. start daptomycin for vre at time of dc, on zy vox while here 3. duration: 6 weeks. end date: 01/05/22. 4. picc line ordered 5. watch cbc diff and kidney function/cr closely 6. wound care 7. c/o itching- no rash seen will monitor consultants: infectious disease, nephrology, ort hopedics electronically signed by donna vieyra md on at 1528 [facility] #: [id number] end of report 2021-12-02 22:23:00-00:00 [facility] ([facility]) wound care progress note report#:[id number] report status: signed date:12/02/21 time:2222 patient: harleen manzano unit #: [id number] room/bed: [place] [address] : 80 age: 41 sex: f attend: samanta castle md adm dt: 11/25/21 author: jonathan hernandez md * all edits or amendments must be made on the [employer]/computer document * subjective chief complaint: wound care hpi: i carried out the wound care at bedside patient reports: yes: able to communicate, drainage from wound, f eeling better. no: odor. objective general vs: last documented: result date time pulse ox 99 12/02 1945 b/p 152/93 12/02 1945 b/p mean 113.0 12/02 1945 o2 delivery room air 12/02 1945 temp 97.7 12/02 1945 pulse 90 12/02 1945 resp 16 12/02 1945 patient weight: weight (lb): 365 weight (oz): 12.27 weight (kg): 165.561 medications: active meds + dc'd last 24 hrs linezolid (zyvox 600mg/ d5w 300ml) 300 ml q12h i v daptomycin (cubicin 500mg) 1,000 mg q24h iv (can ) sodium chloride (sodium chloride 0.9%) 100 ml ampicillin sodium/sulbactam sodium (unasyn 3 gm) 3 gm q8h iv sodium chloride (sodium chloride 0.9%) 100 ml docusate sodium (colace) 100 mg bid po ondansetron hcl (zofran) 8 mg q8h prn prn po ondansetron hcl (zofran) 8 mg q8h prn prn iv non-formulary medication (vancomycin trough bisi nder) 1 each asdir misc insulin glargine (lantus/semglee) 30 unit q12h s ubq insulin human lispro (humalog) 5 unit ac subq dextrose/water (dextrose 50% w syringe) 25 ml as dir prn iv (ckd) dextrose/water (dextrose 50% w syringe) 50 ml as dir prn iv (ckd) glucagon (glucagon) 1 mg asdir prn im heparin sodium (porcine) (heparin sodium) 5,000 unit q8hr subq insulin human lispro (humalog) 0 ac hs subq metoprolol tartrate (lopressor) 25 mg q12hr po hydralazine hcl (apresoline) 10 mg q6h prn prn i v hydrocodone bitart/acetaminophen (norco 10/325) 1 tab q6h prn prn po lactulose (lactulose) 20 gm q6h prn prn po ondansetron hcl (zofran odt) 4 mg q4h prn prn po tramadol hcl (ultram) 50 mg q6h prn prn po nutrition assessment: the data set between the solid lines has been im ported from the dietitian's assessment. any exceptions have been noted under provider comments. bmi calculated: 50.9 nutrition related diagnosis: nutrition diagnosis details: nutrition problem: nutrition etiology: nutrition signs and symptoms: nutrition prescription: dietitian name: assessment completed: provider comments on imported dietitian assessme nt: physical exam general appearance: obese neck: no jvd abdomen: non-tender extremities: no edema wound assessment wound assessment 1: type/cause: post-op wound location: foot tissue layers: limited to skin breakdown diagnosis, assessment plan problem list/a p: 1. wound of left foot lavage the wound cavity with saline pack with aquacel ag cover with nonwoven gauze kerlix wrap then miguel band as secondary change dressing on tuesday, day tuesday, s unday 2. obesity advised weight loss to help with pressure reduc tion. 3. type i diabetes mellitus with hyperosmolarit y, uncontrolled arterial dopplers negative for any pad 4. jayleen (acute kidney injury) consultants: infectious disease, nephrology, ort hopedics electronically signed by jonathan hernandez md on at 2227 rpt #: [id number] end of report 2021-12-02 12:01:00-00:00 [facility] ([facility]) infectious dis. progress note report#:[id number] report status: signed date:12/02/21 time:1201 patient: harleen manzano unit #: [id number] room/bed: [place] [address] : 80 age: 41 sex: f attend: samanta castle md adm dt: 11/25/21 author: pro bustamante md * all edits or amendments must be made on the [employer]computer document * subjective chief complaint: foot infection, left hpi: leukocytosis resolved. last blood cx neg to date . wound cx showed vre. objective physical exam head/eyes: atraumatic, normocephalic cardiovascular: normal heart sounds respiratory: clear to auscultation, no distress abdomen: non-tender, soft, no distention extremities: no cyanosis, le ft foot wound plantar, 5th toe, boggy area on dorsum with fluctuance neuro/insurance risk surveyor: alert, oriented x 3 skin: no rash diagnosis, assessment plan free text a p: laboratory tests 12/02/21 0425: [embedded image not available] 12/01/21 0515: [embedded image not available] current abx clindamycin 7 ceftriaxone 7 zosyn dc impression 1. 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 coli bacteremia (s=ceftriaxone, unasyn). wound cx ramya wed e. coli, vre and coag-neg staph gas present in tissue s/p partial amputation by ortho 11/27/21 s/p left 5th toe ray amputation and debridement 4th toe 12/01/21 2. acute renal insufficiency, had atn/arf in 2021 3. uncontrolled dm with neuropathy had complex hospital stay 10/09-10/22/21- had to be intubated per records 4. h/o covid - october 2021 5. obesity discussion leukocytosis resolved grew e.coli and enterococcus from foot wound 10/10 (sensitive isolates) was sent home on amoxicillin and started clindam ycin as outpt after seeing film and video graphics designer recs 1. unasyn (which covers e. coli and anaerobes) 2. start daptomycin for vre 3. duration: around 6 weeks. end date: 01/05/22. 4. picc line ordered 5. watch cbc diff and kidney function 6. wound care electronically signed by pro bustamante md on 12/02/21 at 1431 rpt #: [id number] end of report 2021-12-02 10:23:00-00:00 [facility] ([facility]) hospitalist progress note report#:[id number] report status: signed date:12/02/21 time:1023 patient: harleen manzano unit #: [id number] room/bed: [address] : 80 age: 41 sex: f attend: samanta castle md adm dt: 11/25/21 author: yusuf castle md * all edits or amendments must be made on the [employer]computer document * subjective chief complaint: fevers nausea vomiting comments: patient lying on the bed, feels better. objective general vs/i o: vital signs: date time temp pulse resp b/p b/p pulse o2 o2 flow fio2 mean ox delivery rate 12/02 0836 98.2 87 14 131/85 100.4 100 room air 12/02 0750 98.4 85 16 107/68 81.3 97 12/02 0318 98.2 87 16 128/84 98.6 97 room air 12/01 2303 98.2 92 16 120/76 90.9 98 room air 12/01 1917 99 16 151/84 0.0 100 room air 12/01 1103 98.4 88 16 125/84 97.7 99 24 hour i o ending at 0700: 12/02 0700 12/01 1900 intake total 270.00 output total balance 270.00 intake, iv 20.00 intake, oral 250 number voids 1 patient weight: weight (lb): 365 weight (oz): 12.27 weight (kg): 165.909 medications: active meds + dc'd last 24 hrs ampicillin sodium/sulbactam sodium (unasyn 3 gm) 3 gm q8h iv sodium chloride (sodium chloride 0.9%) 100 ml magnesium sulfate/dextrose (magnesium sulfate 1 g in dextrose 5% 100 ml) 100 ml once one iv (dc) docusate sodium (colace) 100 mg bid po ondansetron hcl (zofran) 8 mg q8h prn prn po ondansetron hcl (zofran) 8 mg q8h prn prn iv non-formulary medication (vancomycin trough bisi nder) 1 each asdir misc insulin glargine (lantus/semglee) 30 unit q12h s ubq insulin human lispro (humalog) 5 unit ac subq ceftriaxone sodium (rocephin) 2,000 mg q24h iv ( dc) sodium chloride (0.9% sodium chloride) 50 ml dextrose/water (dextrose 50% w syringe) 25 ml as dir prn iv (ckd) dextrose/water (dextrose 50% w syringe) 50 ml as dir prn iv (ckd) glucagon (glucagon) 1 mg asdir prn im clindamycin phosphate/dextrose (cleocin 900mg/d5 w 50ml) 50 ml q8hr iv ( dc) heparin sodium (porcine) (heparin sodium) 5,000 unit q8hr subq insulin human lispro (humalog) 0 ac hs subq metoprolol tartrate (lopressor) 25 mg q12hr po hydralazine hcl (apresoline) 10 mg q6h prn prn i v hydrocodone bitart/acetaminophen (norco 10/325) 1 tab q6h prn prn po lactulose (lactulose) 20 gm q6h prn prn po ondansetron hcl (zofran odt) 4 mg q4h prn prn po tramadol hcl (ultram) 50 mg q6h prn prn po results findings/data: laboratory tests 12/02 12/02 12/01 12/01 12/01 0729 0425 1907 1558 1104 chemistry sodium (134 - 147 mmol/l) 140 potassium (3.4 - 5.0 mmol/l) 3.5 chloride (100 - 108 mmol/l) 110 h carbon dioxide (21 - 32 mmol/l) 25 anion gap (4.0 - 15.0 gap calc) 5.0 bun (7 - 18 mg/dl) 11 creatinine (0.6 - 1.0 mg/dl) 2.1 h glomerular filtr rate (>60 estgfr) 33 l glucose (70 - 110 mg/dl) 115 h poc glucose (70 - 110 mg/dl) 98 200 h 135 h 247 h calcium (8.5 - 10.1 mg/dl) 8.4 l phosphorus (2.5 - 4.9 mg/dl) 4.0 albumin (3.4 - 5.0 g/dl) 2.1 l tsh (0.340 - 4.820 mciu/ml) 1.370 radiology data: recent impressions: radiology - xr chest 2 v 12/01 1505 report impression - status: signed entered: 12/01/2021 1600 impression: 1. stable patchy bilateral airspace opacities. 2. previously questioned nodular density over th e right upper chest is likely due to superimposed 1st rib artifact a s it is not visualized on this exam. impression by: momo holcomb m.d. results: labs reviewed, current med profile rev' d free text obj notes free text obj notes: physical examination patient is a pleasant person lying on the bed does not appear to be in distress heent pupils equal round reactive light and acco mmodating normocephalic/ atraumatic skull normal oral mucosa neck supple no jvd chest clear bilateral entry no wheeze or crackle s cvs s1-s2 no murmur rubs or gallop abdomen soft nontender bowel sounds positive extremities no pedal edema pulses palpable left foot fifth metatarsal under the bandage whi ch was not open insurance risk surveyor alert oriented x3 moving all 4 extremities d ecrease sensation bilateral lower extremity up to chaney psych examination normal mood diagnosis, assessment plan consultants: infectious disease, nephrology, ort hopediwill free text dxa p notes free text dxa p notes: sepsis with osteomyelitis of the left foot continue with iv fluids follow infectious work-up including blood cultur es started on broad-spectrum antibiotics including vanco ceftriaxone and clindamycin. now switched to unasyn by infectiou s disease. orthopedics consulted status post i d and fifth metatarsal amputation. orthopedics thinks that they did not get the margins cleared up so will need 6 weeks of iv antibiotics monitor hemodynamic status closely postoperative care as per orthopedics. have also involved wound care as requested by orthopedics. id also on board as per id wound cultures are growing enterococcu s and possibly e. coli. still pending final sensitivity and identification. left foot osteo- see above e. coli bacteremia patient blood culture growing e. coli pansensiti ve. most probable source appears to be left foot osteo and abscess. repea t blood cultures negative so far. already got picc line.. id on board. diabetes mellitus continue with insulin lantus. keep on insulin sl iding scale and premeal insulin. monitor blood sugars. renal dysfunction patient actually had atn in october and creatinine was slowly improving but then again deteriorated. could be related to the surg krissy. nephrology on board thinks there could be some prerenal component st op iv. continue to monitor renal function avoid nephrotoxic medication anemia in the postoperative phase. monitor h h. improved abnormal chest x-ray does seem to be some artifact. 2 view x-ray did show that it was overreading. dvt prophylaxis patient is full code patient was explained the pl an in detail all medication effect side effects were discussed all questions answered she agreed with the plan possible skilled placement electronically signed by yusuf castle md on at 1027 rpt #: [id number] end of report 2021-12-02 09:48:00-00:00 [facility] ([facility]) nephrology progress note report#:[id number] report status: signed date:12/02/21 time:947 patient: harleen manzano unit #: [id number] [address] age: 41 sex: f attend: samanta castle md adm dt: 11/25/21 author: jaylen harrison md * all edits or amendments must be made on the el ectronic/computer document * subjective hpi: no events, no cp, no sob, no n/v/abd pain objective general vs/i o: vital signs: date time temp pulse resp b/p b/p pulse o2 o2 f low fio2 mean ox delivery rate 12/02 0836 36.8 87 14 131/85 100.4 100 room ai r 12/02 0750 36.9 85 16 107/68 81.3 97 12/02 0318 36.8 87 16 128/84 98.6 97 room air 12/01 2303 36.8 92 16 120/76 90.9 98 room air 12/01 1917 99 16 151/84 0.0 100 room air 12/01 1103 36.9 88 16 125/84 97.7 99 24 hour i o ending at 0700: 12/02 0700 12/01 1900 intake total 270.00 output total balance 270.00 intake, iv 20.00 intake, oral 250 number voids 1 patient weight: weight (lb): 365 weight (oz): 12.27 weight (kg): 165.909 medications active meds + dc'd last 24 hrs ampicillin sodium/sulbactam sodium (unasyn 3 gm) 3 gm q8h iv sodium chloride (sodium chloride 0.9%) 100 ml magnesium sulfate/dextrose (magnesium sulfate 1 g in dextrose 5% 100 ml) 100 ml once one iv (dc) docusate sodium (colace) 100 mg bid po ondansetron hcl (zofran) 8 mg q8h prn prn po ondansetron hcl (zofran) 8 mg q8h prn prn iv non-formulary medication (vancomycin trough bisi nder) 1 each asdir misc insulin glargine (lantus/semglee) 30 unit q12h s ubq insulin human lispro (humalog) 5 unit ac subq ceftriaxone sodium (rocephin) 2,000 mg q24h iv ( dc) sodium chloride (0.9% sodium chloride) 50 ml dextrose/water (dextrose 50% w syringe) 25 ml as dir prn iv (ckd) dextrose/water (dextrose 50% w syringe) 50 ml as dir prn iv (ckd) glucagon (glucagon) 1 mg asdir prn im clindamycin phosphate/dextrose (cleocin 900mg/d5 w 50ml) 50 ml q8hr iv ( dc) heparin sodium (porcine) (heparin sodium) 5,000 unit q8hr subq insulin human lispro (humalog) 0 ac hs subq metoprolol tartrate (lopressor) 25 mg q12hr po hydralazine hcl (apresoline) 10 mg q6h prn prn i v hydrocodone bitart/acetaminophen (norco 10/325) 1 tab q6h prn prn po lactulose (lactulose) 20 gm q6h prn prn po ondansetron hcl (zofran odt) 4 mg q4h prn prn po tramadol hcl (ultram) 50 mg q6h prn prn po physical exam general appearance: no acute distress head/eyes: atraumatic neck: supple/no meningismus cardiovascular: regular rate and rhythm respiratory: clear to auscultation abdomen: soft extremities: no edema neuro/insurance risk surveyor: alert psychiatry: normal mood diagnosis, assessment plan free text a p: assessment/plan: jayleen on ckd-iiia likely due to atn. indices rowan r, continue to monitor volume status now ok, off ivf lytes, acid-base acceptable ok to dc home from renal standpoint electronically signed by jaylen harrison md on 12/02/21 at 0949 [facility] #: [id number] end of report 2021-12-01 18:58:00-00:00 [facility] ([facility]) wound care progress note report#:[id number] report status: signed date:12/01/21 time:1857 patient: harleen manzano unit #: [id number] room/bed: [facility] : 80 age: 41 sex: f attend: samanta castle md adm dt: 11/25/21 author: jonathan hernandez md * all edits or amendments must be made on the wst.cn/computer document * subjective chief complaint: wound care hpi: i carried out the woudn care at bedside patient reports: yes: able to communicate, feeling better, pain c ontrolled. no: drainage from wound. objective general vs: last documented: result date time pulse ox 99 12/01 1103 b/p 125/84 12/01 1103 b/p mean 97.7 12/01 1103 temp 98.4 12/01 1103 pulse 88 12/01 1103 resp 16 12/01 1103 o2 delivery room air 12/01 0702 patient weight: weight (lb): 365 weight (oz): 12.27 weight (kg): 165.909 medications: active meds + dc'd last 24 hrs ampicillin sodium/sulbactam sodium (unasyn 3 gm) 3 gm q8h iv sodium chloride (sodium chloride 0.9%) 100 ml magnesium sulfate/dextrose (magnesium sulfate 1 g in dextrose 5% 100 ml) 100 ml once one iv (dc) docusate sodium (colace) 100 mg bid po ondansetron hcl (zofran) 8 mg q8h prn prn po ondansetron hcl (zofran) 8 mg q8h prn prn iv non-formulary medication (vancomycin trough bisi nder) 1 each asdir misc insulin glargine (lantus/semglee) 30 unit q12h s ubq insulin human lispro (humalog) 5 unit ac subq ceftriaxone sodium (rocephin) 2,000 mg q24h iv ( dc) sodium chloride (0.9% sodium chloride) 50 ml dextrose/water (dextrose 50% w syringe) 25 ml as dir prn iv (ckd) dextrose/water (dextrose 50% w syringe) 50 ml as dir prn iv (ckd) glucagon (glucagon) 1 mg asdir prn im clindamycin phosphate/dextrose (cleocin 900mg/d5 w 50ml) 50 ml q8hr iv ( dc) heparin sodium (porcine) (heparin sodium) 5,000 unit q8hr subq insulin human lispro (humalog) 0 ac hs subq metoprolol tartrate (lopressor) 25 mg q12hr po hydralazine hcl (apresoline) 10 mg q6h prn prn i v hydrocodone bitart/acetaminophen (norco 10/325) 1 tab q6h prn prn po lactulose (lactulose) 20 gm q6h prn prn po ondansetron hcl (zofran odt) 4 mg q4h prn prn po tramadol hcl (ultram) 50 mg q6h prn prn po nutrition assessment: the data set between the solid lines has been im ported from the dietitian's assessment. any exceptions have been noted under provider comments. bmi calculated: 51.0 nutrition related diagnosis: nutrition diagnosis details: nutrition problem: nutrition etiology: nutrition signs and symptoms: nutrition prescription: dietitian name: assessment completed: provider comments on imported dietitian assessme nt: physical exam general appearance: chronically ill appearing neck: no jvd abdomen: non-tender extremities: no edema wound assessment wound assessment 1: type/cause: post-op wound location: foot tissue layers: limited to skin breakdown diagnosis, assessment plan problem list/a p: 1. wound of left foot lavage the wound cavity with saline pack with aquacel ag cover with nonwoven gauze kerlix wrap then miguel band as secondary change dressing on tuesday, tuesday, s unday 2. obesity advised weight loss to help with pressure reduc tion. 3. type i diabetes mellitus with hyperosmolarit y, uncontrolled arterial dopplers negative for any pad 4. jayleen (acute kidney injury) consultants: infectious disease, nephrology, ort hopedics electronically signed by jonathan hernandez md on at 0233 rpt #: [id number] end of report 2021-12-01 12:26:00-00:00 [facility] ([facility]) hospitalist progress note report#:[id number] report status: signed date:12/01/21 time:1225 patient: harleen manzano unit #: [id number] room/bed: [place] [address] : 80 age: 41 sex: f attend: samanta castle md adm dt: 11/25/21 author: yusuf castle md * all edits or amendments must be made on the wst.cn/[employer] document * subjective chief complaint: fevers nausea vomiting comments: patient lying on the bed. denies any complaints. objective general vs/i o: vital signs: date time temp pulse resp b/p b/p pulse o2 o2 f low fio2 mean ox delivery rate 12/01 1103 98.4 88 16 125/84 97.7 99 12/01 0702 97.5 82 18 112/65 80.3 97 room air 12/01 0443 98.6 82 16 110/72 84.5 97 room air 12/01 0229 98.4 85 16 94/61 72.3 97 room air 11/30 2010 99.0 94 16 142/83 103.0 98 room air 11/30 1627 98.6 89 16 144/96 112 100 room air patient weight: weight (lb): 365 weight (oz): 12.27 weight (kg): 165.909 results findings/data: laboratory tests 12/01 12/01 12/01 11/30 11/30 1104 0700 0515 2036 1625 chemistry sodium (134 - 147 mmol/l) 141 potassium (3.4 - 5.0 mmol/l) 3.7 chloride (100 - 108 mmol/l) 109 h carbon dioxide (21 - 32 mmol/l) 25 anion gap (4.0 - 15.0 gap calc) 7.0 bun (7 - 18 mg/dl) 14 creatinine (0.6 - 1.0 mg/dl) 2.4 h glomerular filtr rate (>60 estgfr) 29 l glucose (70 - 110 mg/dl) 149 h poc glucose (70 - 110 mg/dl) 247 h 126 h 204 h 115 h calcium (8.5 - 10.1 mg/dl) 8.0 l phosphorus (2.5 - 4.9 mg/dl) 4.0 magnesium (1.8 - 2.4 mg/dl) 1.5 l albumin (3.4 - 5.0 g/dl) 1.9 l radiology data: recent impressions: radiology - xr chest 1 v 11/30 1505 report impression - status: signed entered: 11/30/2021 1529 impression: 1. left picc, as above. 2. no appreciable pneumothorax. no radiographic evidence of acute cardiopulmonary abnormality. 4. incidental 1.7 cm superior right hilar nodula r opacity, which may represent a prominent vessel or an object on the skin surface. a pulmonary nodule is not excluded. low lung volum es limit evaluation. consider follow-up with a standing, pa/lateral 2 view chest radiograph versus ct. impression by: [email or web address] - virgil vasquez results: labs reviewed, current med profile rev' d free text obj notes free text obj notes: physical examination patient is a pleasant person lying on the bed does not appear to be in distress heent pupils equal round reactive light and acco mmodating normocephalic/ atraumatic skull normal oral mucosa neck supple no jvd chest clear bilateral entry no wheeze or crackle s cvs s1-s2 no murmur rubs or gallop abdomen soft nontender bowel sounds positive extremities no pedal edema pulses palpable left foot fifth metatarsal under the bandage whi ch was not open insurance risk surveyor alert oriented x3 moving all 4 extremities d ecrease sensation bilateral lower extremity up to chaney psych examination normal mood diagnosis, assessment plan consultants: infectious disease, nephrology, ort hopedics free text dxa p notes free text dxa p notes: sepsis with osteomyelitis of the left foot continue with iv fluids follow infectious work-up including blood cultur es started on broad-spectrum antibiotics including vanco ceftriaxone and clindamycin. vanco was stopped. orthopedics consulted status post i d and fifth metatarsal amputation. orthopedics thinks that they did not get the margins cleared up so will need 6 weeks of iv antibiotics monitor hemodynamic status closely postoperative care as per orthopedics. have also involved wound care as requested by orthopedics. id also on board as per id wound cultures are growing enterococcu s and possibly e. coli. still pending final sensitivity and identification left foot osteo- see above e. coli bacteremia patient blood culture growing e. coli pansensiti ve. most probable source appears to be left foot osteo and abscess. repea t blood cultures negative so far. already got picc line.. id on board. diabetes mellitus continue with insulin lantus. keep on insulin sl iding scale and premeal insulin. monitor blood sugars. renal dysfunction patient actually had atn in october and creatinine was slowly improving but then again deteriorated. could be related to the surg krissy. nephrology on board thinks there could be some p rerenal component continue with fluids. continue to monitor renal function avoid nephrotoxic medicat ion anemia in the postoperative phase. monitor h h. improved abnormal chest x-ray does seem to be some artifact. will get two-view x-ray chest dvt prophylaxis patient is full code patient was explained the pl an in detail all medication effect side effects were discussed all questions answered she agreed with the plan electronically signed by yusuf castle md on at 1231 rpt #: [id number] end of report 2021-12-01 12:09:00-00:00 [facility] ([facility]) infectious dis. progress note report#:[id number] report status: signed date:12/01/21 time:1209 patient: harleen manzano unit #: [id number] room/bed: [place] [address] : 80 age: 41 sex: f attend: samanta castle md adm dt: 11/25/21 author: pro bustamante md * all edits or amendments must be made on the el [employer]/computer document * subjective chief complaint: foot infection, left hpi: leukocytosis resolved. last blood cx neg to date . review of systems constitutional: denies: fever. objective general vs/i o: vital signs date temp pulse resp b/p b/p mean pulse ox fio2 11/30-12/01 36.4-37.2 82-94 16-18 94-144/61-96 72.3-112 97-100 last documented: result date time pulse ox 99 12/01 1103 b/p 125/84 12/01 1103 b/p mean 97.7 12/01 1103 temp 36.9 12/01 1103 pulse 88 12/01 1103 resp 16 12/01 1103 o2 delivery room air 12/01 0702 vital signs: date time temp pulse resp b/p b/p pulse o2 o2 f low fio2 mean ox delivery rate 12/01 1103 36.9 88 16 125/84 97.7 99 12/01 0702 36.4 82 18 112/65 80.3 97 room air 12/01 0443 37.0 82 16 110/72 84.5 97 room air 12/01 0229 36.9 85 16 94/61 72.3 97 room air 11/30 2010 37.2 94 16 142/83 103.0 98 room air 11/30 1627 37.0 89 16 144/96 112 100 room air patient weight: weight (lb): 365 weight (oz): 12.27 weight (kg): 165.909 physical exam general appearance: alert, awake head/eyes: atraumatic, normocephalic cardiovascular: normal heart sounds respiratory: clear to auscultation, no distress abdomen: non-tender, soft, no distention extremities: no cyanosis, le ft foot wound plantar, 5th toe, boggy area on dorsum with fluctuance neuro/insurance risk surveyor: alert, oriented x 3 diagnosis, assessment plan free text a p: laboratory tests 12/01/21 0515: [embedded image not available] 11/30/21 0555: [embedded image not available] current abx clindamycin 6 ceftriaxone 6 zosyn dc impression 1. 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 coli bacteremia (s=ceftriaxone, unasyn). gas present in tissue s/p partial amputation by ortho 11/27/21 s/p left 5th toe ray amputation and debridement 4th toe 12/01/21 2. acute renal insufficiency, had atn/arf in 2021 3. uncontrolled dm with neuropathy had complex hospital stay 10/09-10/22/21- had to be intubated per records 4. h/o covid - october 2021 5. obesity discussion leukocytosis resolved grew e.coli and enterococcus from foot wound 10/10 (sensitive isolates) was sent home on amoxicillin and started clindam ycin as outpt after seeing film and video graphics designer recs 1. switch ceftriaxone and clindamycin to unasyn (which covers e. coli and enterococcus) 2. duration: 6 weeks. end date: 01/05/22. 3. picc line ordered 4. watch cbc diff and kidney function 5. follow blood and wound cxs 6. wound care electronically signed by pro bustamante md on 12/01/21 at 1410 rpt #: [id number] end of report 2021-12-01 11:55:00-00:00 [facility] ([facility]) nephrology progress note report#:[id number] report status: signed date:12/01/21 time:1155 patient: harleen manzano unit #: [id number] room/bed: [place] [address] : 80 age: 41 sex: f attend: samanta castle md adm dt: 11/25/21 author: jaylen harrison md * all edits or amendments must be made on the wst.cn/computer document * subjective hpi: overall better, no cp, no sob, no n/v/abd pain objective general vs/i o: vital signs: date time temp pulse resp b/p b/p pulse o2 o2 f low fio2 mean ox delivery rate 12/01 1103 36.9 88 16 125/84 97.7 99 12/01 0702 36.4 82 18 112/65 80.3 97 room air 12/01 0443 37.0 82 16 110/72 84.5 97 room air 12/01 0229 36.9 85 16 94/61 72.3 97 room air 11/30 2010 37.2 94 16 142/83 103.0 98 room air 11/30 1627 37.0 89 16 144/96 112 100 room air patient weight: weight (lb): 365 weight (oz): 12.27 weight (kg): 165.909 physical exam general appearance: no acute distress head/eyes: atraumatic neck: supple/no meningismus cardiovascular: regular rate and rhythm respiratory: clear to auscultation abdomen: soft extremities: no edema neuro/insurance risk surveyor: alert psychiatry: normal mood diagnosis, assessment plan free text a p: assessment/plan: jayleen on ckd-iiia likely due to atn. indices rowan r, continue to monitor volume status now ok, dcd ivf lytes, acid-base acceptable electronically signed by jaylen harrison md on 12/01/21 at 1156 rpt #: [id number] end of report 2021-12-01 00:44:00-00:00 [id number] [facility] [address] [place] [address] patient name: harleen manzano admit date: 2 account no: [id number] room no: [facility] age: 41 report type: operative report sex: f admitting physician: yusuf castle md attending physician: yusuf castle md operation date: 11/27/2021 operating surgeon: jose garland md bus assistant: preoperative diagnoses: 1. left foot nonhealing ulce rs extending deep to the bone on the plantar aspect of the foot. 2. left foot osteomyelitis of the fifth metatars al and proximal phalanx. 3. left foot osteomyelitis and septic arthritis of the fourth metatarsophalangeal joint. postoperative diagnoses: 1. left foot nonhealing ulce rs extending deep to the bone on the plantar aspect of the foot. 2. left foot osteomyelitis of the fifth metatars al and proximal phalanx. 3. left foot osteomyelitis and septic arthritis of the fourth metatarsophalangeal joint. operative procedures: 1. ray amputation of the left fifth toe. 2. arthrotomy with debridement and synovectomy o f the left fourth toe metatarsophalangeal joints. 3. irrigation with excisional debridement of the left foot nonhealing ulcer extending deep to the bone. anesthesia: indications: the patient is a 41-year-old female with a history of uncontrolled diabetes, admitted to the [facility] with nonhealing ulcers of the foot on the plantar aspect with drainage . after reviewing radiographs and mri, found to have osteomyelitis of the fifth metatarsal as well as proximal phalanx of the fifth toe with some changes on th e fourth toe mtp joint area. operative procedure was indicated. risks and benefits were discussed. potential complications were reviewed and consent was obta ined. description of the procedure : the patient was brought to the operating room and placed on the operating tabl e in supine position with a bump under the left hip. general anesthesia was given. preoperative iv a ntibiotic was given. left lower extremity was prepped and draped in usual sterile fashion. time-out was performed. tourniquet was inflated. we started c leaning the abscess on the patient name: harleen manzano 3430 plantar aspect with excision of the necrotic tis sues. since we noticed it was extending all the way deep to the metatarsal hea d, we excised, a decision was made to proceed with a ray amputation. w e used the open ulcer area and excised all necrotic ulcer border and margins to the ble eding tissue. so, the completion of the amputation was performed by excising the fifth toe as well as part of the metatarsal head. we obtained the juliet per cultures, and we ended up excising the necrotic bone all the way up to the mid shaft area. we found a good circulation from more proximal part of the fifth metatarsal. the tissue was sent for histopathological review. tissue wa s also sent for cultures too. we excised all necrotic tiss ues around the ulcer bed and excised completely and wound was irrigated by using 6 l of normal salin e. we changed all instruments and all brand new gloves. arthrotomy of the fourth toe, we found some necrotic tissues around the mtp evgeny nt. synovectomy was performed. we also did sequestrectomy of the base of the proximal p halanx as well as part of the metatarsal, though the most of the oint was stil l maintained and decision was made to salvage the joint. wound was irrigated a gain and we left it open and packed with half-inch iodoform dressing gauze. wet-to-dry dressing was placed. the patient was placed in a postoperativ e shoe. the patient was shifted in the recovery room in stable condition. the patient t olerated the entire operative procedures very well. i, dr. garland, performed the entire operative procedure. dictated by: jose garland md wt: op:ladithya/scottie. dd: 12/01/2021 00:44:55 dt: 12/01/2021 01:35:59 conf#: [id number]/did#: [id number] authenticated and edited by jose keene i, md on 12/06/21 11:32:02 pm electronically signed by jose garland md on 12/06/21 at 1133 patient name: harleen manzano 3430 2021-11-30 16:20:00-00:00 [facility] ([facility]) wound care progress note report#:[id number] report status: signed date:11/30/21 time:1620 patient: harleen manzano unit #: [id number] room/bed: [place] [address] : 80 age: 41 sex: f attend: samanta castle md adm dt: 11/25/21 author: jonathan hernandez md * all edits or amendments must be made on the wst.cn/computer document * subjective chief complaint: wound care hpi: i informed ms. manzano about her negative arteria l doppler patient reports: yes: able to communicate, feeling better, pain c ontrolled. no: drainage from wound. objective general vs: last documented: result date time pulse ox 98 11/30 1108 b/p 118/82 11/30 1108 b/p mean 94 11/30 1108 o2 delivery room air 11/30 1108 temp 97.9 11/30 1108 pulse 78 11/30 1108 resp 18 11/30 1108 patient weight: weight (lb): 365 weight (oz): 12.27 weight (kg): 165.909 medications: active meds + dc'd last 24 hrs potassium chloride (kcl) 10 meq .q20h iv (dc) lactated ringer's (lactated ringers) 1,000 ml docusate sodium (colace) 100 mg bid po pregabalin (lyrica) 75 mg bid po (dc) ondansetron hcl (zofran) 8 mg q8h prn prn po ondansetron hcl (zofran) 8 mg q8h prn prn iv non-formulary medication (vancomycin trough bisi nder) 1 each asdir misc insulin glargine (lantus/semglee) 30 unit q12h s ubq insulin human lispro (humalog) 5 unit ac subq ceftriaxone sodium (rocephin) 2,000 mg q24h iv sodium chloride (0.9% sodium chloride) 50 ml dextrose/water (dextrose 50% w syringe) 25 ml as dir prn iv (ckd) dextrose/water (dextrose 50% w syringe) 50 ml as dir prn iv (ckd) glucagon (glucagon) 1 mg asdir prn im clindamycin phosphate/dextrose (cleocin 900mg/d5 w 50ml) 50 ml q8hr iv heparin sodium (porcine) (heparin sodium) 5,000 unit q8hr subq insulin human lispro (humalog) 0 ac hs subq metoprolol tartrate (lopressor) 25 mg q12hr po hydralazine hcl (apresoline) 10 mg q6h prn prn i v hydrocodone bitart/acetaminophen (norco 10/325) 1 tab q6h prn prn po lactulose (lactulose) 20 gm q6h prn prn po ondansetron hcl (zofran odt) 4 mg q4h prn prn po tramadol hcl (ultram) 50 mg q6h prn prn po nutrition assessment: the data set between the solid lines has been im ported from the dietitian's assessment. any exceptions have been noted under provider comments. bmi calculated: 51.0 nutrition related diagnosis: nutrition diagnosis details: nutrition problem: nutrition etiology: nutrition signs and symptoms: nutrition prescription: dietitian name: assessment completed: provider comments on imported dietitian assessme nt: physical exam general appearance: chronically ill appearing neck: no jvd abdomen: non-tender extremities: no edema wound assessment wound assessment 1: type/cause: post-op wound location: foot tissue layers: limited to skin breakdown diagnosis, assessment plan problem list/a p: 1. wound of left foot defer dressing changes to orthopedics. defer de cision to bear any weight though would be better to non weight bear for no w. 2. obesity advised weight loss to help with pressure reduc tion. 3. type i diabetes mellitus with hyperosmolarit y, uncontrolled arterial dopplers negative for any pad 4. jayleen (acute kidney injury) consultants: infectious disease, nephrology, ort hopedics electronically signed by jonathan hernandez md on at 1621 rpt #: [id number] end of report 2021-11-30 11:40:00-00:00 [facility] hospital) hospitalist progress note report#:[id number] report status: signed date:11/30/21 time:1140 patient: harleen manzano unit #: [id number] room/bed: [place] [address] : 80 age: 41 sex: f attend: samanta castle md adm dt: 11/25/21 author: yusuf castle md * all edits or amendments must be made on the [employer]/computer document * subjective chief complaint: fevers nausea vomiting comments: patient lying on the bed feels better denies any complaint. objective general vs/i o: vital signs: date time temp pulse resp b/p b/p pulse o2 o2 f low fio2 mean ox delivery rate 11/30 07 98.1 80 18 105/70 81.9 96 room air 11/30 0505 98.2 86 18 130/75 93.2 98 room air 11/30 0007 98.6 81 16 135/79 97.6 98 room air 11/29 2016 98.4 90 16 110/73 84.9 98 room air 11/29 180 98.1 101 14 132/84 99.9 97 room air 24 hour i o ending at 0700: 11/30 0700 11/29 1900 intake total 900.00 360 output total balance 900.00 360 intake, iv 800.00 intake, oral 100 360 number voids 1 patient weight: weight (lb): 365 weight (oz): 12.27 weight (kg): 165.909 medications: active meds + dc'd last 24 hrs potassium chloride (kcl) 10 meq .q20h iv (dc) lactated ringer's (lactated ringers) 1,000 ml docusate sodium (colace) 100 mg bid po pregabalin (lyrica) 75 mg bid po (dc) ondansetron hcl (zofran) 8 mg q8h prn prn po ondansetron hcl (zofran) 8 mg q8h prn prn iv non-formulary medication (vancomycin trough bisi nder) 1 each asdir misc insulin glargine (lantus/semglee) 30 unit q12h s ubq insulin human lispro (humalog) 5 unit ac subq ceftriaxone sodium (rocephin) 2,000 mg q24h iv sodium chloride (0.9% sodium chloride) 50 ml dextrose/water (dextrose 50% w syringe) 25 ml as dir prn iv (ckd) dextrose/water (dextrose 50% w syringe) 50 ml as dir prn iv (ckd) glucagon (glucagon) 1 mg asdir prn im clindamycin phosphate/dextrose (cleocin 900mg/d5 w 50ml) 50 ml q8hr iv heparin sodium (porcine) (heparin sodium) 5,000 unit q8hr subq insulin human lispro (humalog) 0 ac hs subq metoprolol tartrate (lopressor) 25 mg q12hr po hydralazine hcl (apresoline) 10 mg q6h prn prn i v hydrocodone bitart/acetaminophen (norco 10/325) 1 tab q6h prn prn po lactulose (lactulose) 20 gm q6h prn prn po ondansetron hcl (zofran odt) 4 mg q4h prn prn po tramadol hcl (ultram) 50 mg q6h prn prn po results findings/data: laboratory tests 11/30 11/30 11/30 11/29 11/29 0714 0617 0555 2050 1502 chemistry sodium (134 - 147 mmol/l) 140 potassium (3.4 - 5.0 mmol/l) 3.7 chloride (100 - 108 mmol/l) 108 carbon dioxide (21 - 32 mmol/l) 25 anion gap (4.0 - 15.0 gap calc) 7.0 bun (7 - 18 mg/dl) 14 creatinine (0.6 - 1.0 mg/dl) 2.6 h glomerular filtr rate (>60 estgfr) 26 l glucose (70 - 110 mg/dl) 135 h poc glucose (70 - 110 mg/dl) 133 h 138 h 191 h 164 h calcium (8.5 - 10.1 mg/dl) 8.2 l phosphorus (2.5 - 4.9 mg/dl) 4.1 albumin (3.4 - 5.0 g/dl) 2.1 l laboratory tests 11/30 0555 hematology wbc (3.5 - 11.0 k/mm3) 8.5 rbc (4.70 - 6.10 m/mm3) 3.69 l hgb (10.4 - 14.9 g/dl) 9.1 l hct (31.5 - 44.1 %) 29.5 l mcv (84.5 - 98.6 fl) 79.9 l mch (27.0 - 34.2 pg) 24.7 l mchc (31.5 - 34.0 g/dl) 30.8 l rdw (11.5 - 14.5 sd) 13.6 plt count (150 - 450 k/mm3) 325 mpv (7.0 - 10.5 fl) 10.90 h neut % (auto) (40 - 76 %) 63.2 lymph % (auto) (20.5 - 51.1 %) 26.4 mono % (auto) (1.7 - 9.3 %) 9.6 h eos % (auto) (0.0 - 6.0 %) 0.0 baso % (auto) (0.0 - 2.0 %) 0.4 neut # (auto) (1.8 - 7.6 k/mm3) 5.4 lymph # (auto) (0.6 - 3.2 k/mm3) 2.2 mono # (auto) (0.3 - 1.1 k/mm3) 0.8 eos # (auto) (0.0 - 0.4 k/mm3) 0.0 baso # (auto) (0.0 - 0.1 k/mm3) 0.0 abs immat gran (auto) (0.00 - 0.03 x10 3/ul) 0. 03 add manual diff (criteria diff/scn) no immature gran % (0.0 - 5.0 %) 0.4 nucleated rbc % (0.0 - 1.0 /100wbc%) 0.0 radiology data: recent impressions: ultrasound - dup le art uni lt 11/29 1518 report impression - status: signed entered: 11/29/2021 1636 impression: 1. no evidence of hemodynamically significant st enosis. the degree of stenosis is determined by nascet d erived psv criteria. impression by: esau morin results: labs reviewed, current med profile rev' d free text obj notes free text obj notes: physical examination patient is a pleasant person lying on the bed does not appear to be in distress heent pupils equal round reactive light and acco mmodating normocephalic/ atraumatic skull normal oral mucosa neck supple no jvd chest clear bilateral entry no wheeze or crackle s cvs s1-s2 no murmur rubs or gallop abdomen soft nontender bowel sounds positive extremities no pedal edema pulses palpable left foot fifth metatarsal under the bandage whi ch was not open insurance risk surveyor alert oriented x3 moving all 4 extremities d ecrease sensation bilateral lower extremity up to chaney psych examination normal mood diagnosis, assessment plan consultants: infectious disease, nephrology, ort hopedics free text dxa p notes free text dxa p notes: sepsis with osteomyelitis of the left foot continue with iv fluids follow infectious work-up including blood cultur es started on broad-spectrum antibiotics including vanco ceftriaxone and clindamycin. vanco was stopped. orthopedics consulted status post i d and fifth metatarsal amputation. orthopedics thinks that they did not get the margins cleared up so will need 6 weeks of iv antibiotics monitor hemodynamic status closely postoperative care as per orthopedics. have also involved wound care as requested by orthopedics. id also on board left foot osteo- see above e. coli bacteremia patient blood culture growing e. coli pansensiti ve. most probable source appears to be left foot osteo and abscess. repea t blood cultures negative so far. id ordered picc line. id on board. diabetes mellitus continue with insulin lantus. keep on insulin sl iding scale and premeal insulin. monitor blood sugars. renal dysfunction patient actually had atn in october and creatinine was slowly improving but then again deteriorated. could be related to the surg krissy. nephrology on board thinks there could be some p rerenal component continue with fluids. continue to monitor renal function avoid nephrotoxic medicat ion anemia in the postoperative phase. monitor h h. improved dvt prophylaxis patient is full code patient was explained the pl an in detail all medication effect side effects were discussed all questions answered she agreed with the plan electronically signed by yusuf castle md on at 1142 rpt #: [id number] end of report 2021-11-30 11:38:00-00:00 [facility] ([facility]) infectious dis. progress note report#:[id number] report status: signed date:11/30/21 time:1138 patient: harleen manzano unit #: [id number] room/bed: [place] [address] : 80 age: 41 sex: f attend: samanta castle md adm dt: 11/25/21 author: pro bustamante md * all edits or amendments must be made on the el [employer]/computer document * subjective chief complaint: foot infection, left hpi: leukocytosis resolved. e. coli found in blood cx . review of systems constitutional: denies: fever. objective physical exam general appearance: awake head/eyes: atraumatic, normocephalic cardiovascular: normal heart sounds respiratory: clear to auscultation, no distress abdomen: non-tender, soft, no distention extremities: no cyanosis, le ft foot wound plantar, 5th toe, boggy area on dorsum with fluctuance neuro/insurance risk surveyor: alert, oriented x 3 skin: no rash diagnosis, assessment plan free text a p: laboratory tests 11/30/21 0555: [embedded image not available] current abx clindamycin 6 ceftriaxone zosyn dc impression 1. 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 coli bacteremia (s=ceftriaxone, unasyn). gas was seen in tissue on imaging s/p partial am putation by ortho 11/27/21 2. acute renal insufficiency had atn/arf in 10/2021 3. uncontrolled dm with neuropathy had dka in 10/2021 had complex hospital stay 10/09-10/22/21- had to be intubated per records 4. h/o covid - october 2021 5. 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) nephrology progress note report#:[id number] report status: signed date:11/30/21 time:1025 patient: harleen manzano unit #: [id number] room/bed: [place] [address] : 80 age: 41 sex: f attend: samanta castle md adm dt: 11/25/21 author: jaylen harrison md * all edits or amendments must be made on the [employer]/computer document * subjective hpi: overall better, no cp, no sob, no n/v/abd pain, tolerating po intake objective general vs/i o: vital signs: date time temp pulse resp b/p b/p pulse o2 o2 f low fio2 mean ox delivery rate 11/30 0716 36.7 80 18 105/70 81.9 96 room air 11/30 0505 36.8 86 18 130/75 93.2 98 room air 11/30 0007 37.0 81 16 135/79 97.6 98 room air 11/29 2016 36.9 90 16 110/73 84.9 98 room air 11/29 1806 36.7 101 14 132/84 99.9 97 room air 11/29 1112 36.3 79 14 105/68 80.4 98 room air 24 hour i o ending at 0700: 11/30 0700 11/29 1900 intake total 900.00 360 output total balance 900.00 360 intake, iv 800.00 intake, oral 100 360 number voids 1 patient weight: weight (lb): 365 weight (oz): 12.27 weight (kg): 165.909 medications active meds + dc'd last 24 hrs potassium chloride (kcl) 10 meq .q20h iv (dcr) lactated ringer's (lactated ringers) 1,000 ml docusate sodium (colace) 100 mg bid po pregabalin (lyrica) 75 mg bid po (dc) ondansetron hcl (zofran) 8 mg q8h prn prn po ondansetron hcl (zofran) 8 mg q8h prn prn iv non-formulary medication (vancomycin trough bisi nder) 1 each asdir misc insulin glargine (lantus/semglee) 30 unit q12h s ubq insulin human lispro (humalog) 5 unit ac subq ceftriaxone sodium (rocephin) 2,000 mg q24h iv sodium chloride (0.9% sodium chloride) 50 ml dextrose/water (dextrose 50% w syringe) 25 ml as dir prn iv (ckd) dextrose/water (dextrose 50% w syringe) 50 ml as dir prn iv (ckd) glucagon (glucagon) 1 mg asdir prn im clindamycin phosphate/dextrose (cleocin 900mg/d5 w 50ml) 50 ml q8hr iv heparin sodium (porcine) (heparin sodium) 5,000 unit q8hr subq insulin human lispro (humalog) 0 ac hs subq metoprolol tartrate (lopressor) 25 mg q12hr po hydralazine hcl (apresoline) 10 mg q6h prn prn i v hydrocodone bitart/acetaminophen (norco 10/325) 1 tab q6h prn prn po lactulose (lactulose) 20 gm q6h prn prn po ondansetron hcl (zofran odt) 4 mg q4h prn prn po tramadol hcl (ultram) 50 mg q6h prn prn po physical exam general appearance: no acute distress head/eyes: atraumatic neck: supple/no meningismus cardiovascular: regular rate and rhythm respiratory: clear to auscultation abdomen: soft extremities: no edema neuro/insurance risk surveyor: alert psychiatry: normal mood diagnosis, assessment plan free text a p: assessment/plan: jayleen on ckd-iiia likely due to atn. indices stabi lizing, continue to monitor volume status now ok, dc ivf lytes, acid-base acceptable electronically signed by jaylen harrison md on 11/30/21 at 1027 rpt #: [id number] end of report 2021-11-29 14:56:00-00:00 [facility] ([facility]) wound care progress note report#:[id number] report status: signed date:11/29/21 time:6 patient: harleen manzano unit #: [id number] room/bed: [place] [address] : 80 age: 41 sex: f attend: samanta castle md adm dt: 11/25/21 author: jonathan hernandez md * all edits or amendments must be made on the [employer]/computer document * subjective chief complaint: wound care hpi: mri showed abscess and osteo. pt has been walkin g on her ext patient reports: yes: able to communicate, dr salazar from wound, feeling better, pain controlled. objective general vs: last documented: result date time pulse ox 98 11/29 1112 b/p 105/68 11/29 111 b/p mean 80.4 11/29 1112 o2 delivery room air 11/29 111 temp 97.3 11/29 111 pulse 79 11/29 1112 resp 14 11/29 111 patient weight: weight (lb): 365 weight (oz): 12.27 weight (kg): 165.909 medications: active meds + dc'd last 24 hrs potassium chloride (kcl) 10 meq .q20h iv lactated ringer's (lactated ringers) 1,000 ml potassium chloride (k-dur 20 meq) 20 meq once on e po (dc) magnesium sulfate/dextrose (magnesium sulfate 1 g in dextrose 5% 100 ml) 100 ml once one iv (dc) docusate sodium (colace) 100 mg bid po pregabalin (lyrica) 75 mg bid po ondansetron hcl (zofran) 8 mg q8h prn prn po ondansetron hcl (zofran) 8 mg q8h prn prn iv non-formulary medication (vancomycin trough bisi nder) 1 each asdir misc insulin glargine (lantus/semglee) 30 unit q12h s ubq insulin human lispro (humalog) 5 unit ac subq ceftriaxone sodium (rocephin) 2,000 mg q24h iv sodium chloride (0.9% sodium chloride) 50 ml dextrose/water (dextrose 50% w syringe) 25 ml as dir prn iv (ckd) dextrose/water (dextrose 50% w syringe) 50 ml as dir prn iv (ckd) glucagon (glucagon) 1 mg asdir prn im clindamycin phosphate/dextrose (cleocin 900mg/d5 w 50ml) 50 ml q8hr iv heparin sodium (porcine) (heparin sodium) 5,000 unit q8hr subq insulin human lispro (humalog) 0 ac hs subq metoprolol tartrate (lopressor) 25 mg q12hr po hydralazine hcl (apresoline) 10 mg q6h prn prn i v hydrocodone bitart/acetaminophen (norco 10/325) 1 tab q6h prn prn po lactulose (lactulose) 20 gm q6h prn prn po ondansetron hcl (zofran odt) 4 mg q4h prn prn po tramadol hcl (ultram) 50 mg q6h prn prn po nutrition assessment: the data set between the solid lines has been im ported from the dietitian's assessment. any exceptions have been noted under provider comments. bmi calculated: 51.0 nutrition related diagnosis: nutrition diagnosis details: nutrition problem: nutrition etiology: nutrition signs and symptoms: nutrition prescription: dietitian name: assessment completed: provider comments on imported dietitian assessme nt: physical exam general appearance: obese neck: no jvd abdomen: non-tender extremities: no edema wound assessment wound assessment 1: type/cause: post-op wound location: foot tissue layers: limited to skin breakdown diagnosis, assessment plan problem list/a p: 1. wound of left foot defer dressing changes to orthopedics. defer de cision to bear any weight though would be better to non weight bear for no w. 2. obesity advised weight loss to help with pressure reduc tion. 3. type i diabetes mellitus with hyperosmolarit y, uncontrolled based on mri, ordered arterial doppler to eval vasculature patency 4. jayleen (acute kidney injury) consultants: infectious disease, nephrology, ort hopedics electronically signed by jonathan hernandez md on at 1458 rpt #: [id number] end of report 2021-11-29 11:41:00-00:00 [facility] ([facility] hospitalist progress note report#:[id number] report status: signed date:11/29/21 time:1141 patient: harleen maznano unit #: [id number] room/bed: [place] [address] : 80 age: 41 sex: f attend: samanta castle md adm dt: 11/25/21 author: yusuf castle md * all edits or amendments must be made on the [employer]/computer document * subjective chief complaint: fevers nausea vomiting comments: patient lying on the bed feels better. denies an y complaints. objective general vs/i o: vital signs: date time temp pulse resp b/p b/p pulse o2 o2 f low fio2 mean ox delivery rate 11/29 1112 97.3 79 14 105/68 80.4 98 room air 11/29 0827 97.5 80 14 114/75 88.1 99 room air 11/28 2324 97.9 78 16 115/77 89.5 97 room air 11/28 2026 98.6 84 16 135/72 93.0 98 room air 11/28 1643 97.9 82 16 118/71 86.6 99 24 hour i o ending at 0700: 11/29 0700 11/28 1900 intake total 1000.00 output total balance 1000.00 intake, iv 800.00 intake, oral 200 patient weight: weight (lb): 365 weight (oz): 12.27 weight (kg): 165.909 medications: active meds + dc'd last 24 hrs potassium chloride (kcl) 10 meq .q20h iv lactated ringer's (lactated ringers) 1,000 ml potassium chloride (k-dur 20 meq) 20 meq once on e po (dc) magnesium sulfate/dextrose (magnesium sulfate 1 g in dextrose 5% 100 ml) 100 ml once one iv (dc) docusate sodium (colace) 100 mg bid po pregabalin (lyrica) 75 mg bid po ondansetron hcl (zofran) 8 mg q8h prn prn po ondansetron hcl (zofran) 8 mg q8h prn prn iv non-formulary medication (vancomycin trough bisi nder) 1 each asdir misc insulin glargine (lantus/semglee) 30 unit q12h s ubq insulin human lispro (humalog) 5 unit ac subq ceftriaxone sodium (rocephin) 2,000 mg q24h iv sodium chloride (0.9% sodium chloride) 50 ml dextrose/water (dextrose 50% w syringe) 25 ml as dir prn iv (ckd) dextrose/water (dextrose 50% w syringe) 50 ml as dir prn iv (ckd) glucagon (glucagon) 1 mg asdir prn im clindamycin phosphate/dextrose (cleocin 900mg/d5 w 50ml) 50 ml q8hr iv heparin sodium (porcine) (heparin sodium) 5,000 unit q8hr subq insulin human lispro (humalog) 0 ac hs subq metoprolol tartrate (lopressor) 25 mg q12hr po hydralazine hcl (apresoline) 10 mg q6h prn prn i v hydrocodone bitart/acetaminophen (norco 10/325) 1 tab q6h prn prn po lactulose (lactulose) 20 gm q6h prn prn po ondansetron hcl (zofran odt) 4 mg q4h prn prn po tramadol hcl (ultram) 50 mg q6h prn prn po results findings/data: laboratory tests 11/29 11/29 11/29 11/28 11/28 1111 0642 0503 2049 1640 chemistry sodium (134 - 147 mmol/l) 137 potassium (3.4 - 5.0 mmol/l) 3.5 chloride (100 - 108 mmol/l) 106 carbon dioxide (21 - 32 mmol/l) 24 anion gap (4.0 - 15.0 gap calc) 7.0 bun (7 - 18 mg/dl) 14 creatinine (0.6 - 1.0 mg/dl) 2.5 h glomerular filtr rate (>60 estgfr) 27 l glucose (70 - 110 mg/dl) 128 h poc glucose (70 - 110 mg/dl) 148 h 127 h 211 h 179 h calcium (8.5 - 10.1 mg/dl) 7.8 l phosphorus (2.5 - 4.9 mg/dl) 4.3 magnesium (1.8 - 2.4 mg/dl) 1.8 albumin (3.4 - 5.0 g/dl) 2.0 l laboratory tests 11/29 0530 hematology wbc (3.5 - 11.0 k/mm3) 8.1 rbc (4.70 - 6.10 m/mm3) 3.33 l hgb (10.4 - 14.9 g/dl) 8.3 l hct (31.5 - 44.1 %) 26.0 l mcv (84.5 - 98.6 fl) 78.1 l mch (27.0 - 34.2 pg) 24.9 l mchc (31.5 - 34.0 g/dl) 31.9 rdw (11.5 - 14.5 sd) 13.5 plt count (150 - 450 k/mm3) 314 mpv (7.0 - 10.5 fl) 11.20 h neut % (auto) (40 - 76 %) 58.2 lymph % (auto) (20.5 - 51.1 %) 31.6 mono % (auto) (1.7 - 9.3 %) 9.2 eos % (auto) (0.0 - 6.0 %) 0.0 baso % (auto) (0.0 - 2.0 %) 0.5 neut # (auto) (1.8 - 7.6 k/mm3) 4.7 lymph # (auto) (0.6 - 3.2 k/mm3) 2.6 mono # (auto) (0.3 - 1.1 k/mm3) 0.7 eos # (auto) (0.0 - 0.4 k/mm3) 0.0 baso # (auto) (0.0 - 0.1 k/mm3) 0.0 abs immat gran (auto) (0.00 - 0.03 x10 3/ul) 0. 04 h add manual diff (criteria diff/scn) no immature gran % (0.0 - 5.0 %) 0.5 nucleated rbc % (0.0 - 1.0 /100wbc%) 0.0 laboratory tests 11/29 1040 urines ur random creatinine (30 - 125 mg/dl) 76.6 radiology data: recent impressions: ultrasound - [facility] 11/28 1623 report impression - status: signed entered: 2021 0820 impression: 1. normal exam. impression by: esau morin results: labs reviewed, current med profile rev' d free text obj notes free text obj notes: physical examination patient is a pleasant person lying on the bed does not appear to be in distress heent pupils equal round reactive light and acco mmodating normocephalic/ atraumatic skull normal oral mucosa neck supple no jvd chest clear bilateral entry no wheeze or crackle s cvs s1-s2 no murmur rubs or gallop abdomen soft nontender bowel sounds positive extremities no pedal edema pulses palpable left foot fifth metatarsal under the bandage whi ch was not open insurance risk surveyor alert oriented x3 moving all 4 extremities d ecrease sensation bilateral lower extremity up to chaney psych examination normal mood diagnosis, assessment plan consultants: infectious disease, nephrology, ort hopedics free text dxa p notes free text dxa p notes: sepsis with osteomyelitis of the left foot continue with iv fluids follow infectious work-up including blood cultur es started on broad-spectrum antibiotics including vanco ceftriaxone and clindamycin. vanco was stopped. orthopedics consulted status post i d and fifth metatarsal amputation. orthopedics thinks that they did not get the margins cleared up so will need 6 weeks of iv antibiotics monitor hemodynamic status closely postoperative care as per orthopedics. have also involved wound care as requested by orthopedics. id also on board left foot osteo- see above e. coli bacteremia patient blood culture growing e. coli pansensiti ve. most probable source appears to be left foot osteo and abscess. repea t blood cultures negative for 24 hours. id ordered picc line. id on board. diabetes mellitus continue with insulin lantus. keep on insulin sl iding scale and premeal insulin. monitor blood sugars. renal dysfunction patient actually had atn in october and creatinine was slowly improving but then again deteriorated. could be related to the surg krissy. nephrology on board thinks there could be some p rerenal component continue with fluids. continue to monitor renal function avoid nephrotoxic medicat ion anemia in the postoperative phase. monitor h h. still fluctuating. dvt prophylaxis patient is full code patient was explained the pl an in detail all medication effect side effects were discussed all questions answered she agreed with the plan electronically signed by yusuf castle md on at 1147 rpt #: [id number] end of report 2021 16:03:00-00:00 [facility] ([facility]) nephrology consultation note report#:[id number] report status: signed date:11/28/21 time:1603 patient: harleen manzano unit #: [id number] room/bed: [place] [address] : 80 age: 41 sex: f attend: samanta castle md adm dt: 11/25/21 author: gabriela higginbotham md * all edits or amendments must be made on the el [employer]/computer document * history of present illness requesting clinician: dr. castle reason for consult: elevated serum creatinine. fluid, electrolyte, and acid-base management. chief complaint: n/v fever pcp: pcp: no primary or family physician hpi: patient is a 41 years old female who was admitted to [facility] for sepsis and left foot infecti on after she presented with chief c/o n/vand fever. s/p surgery. was on iv vanco mycin. serum cr at 2.3 from 1.3 on admission. no cp , sob, dysuria or nunez at the present time. history - adult longitudinal past medical history: reports: diabetes mellitus. 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 recent illness as mentioned in hpi additional surgical history: family history additional family history: reviewed not significant in this patient's care social history alcohol use: denies etoh use drug use: denies recreational drugs smoking status: smoking status for patients 13 years old or old er: never smoker medication/allergy-vaccine hx medications: home medications: dme - glucose lancets (glucose lancets) each mis c daily dme - glucose meter (glucose meter) each misc as dir dme - glucose strips (glucose strips) each misc daily amoxicillin (amoxil) 500 mg po q8hr furosemide (lasix) 40 mg po daily insulin glargine (lantus) 20 unit subq bid insulin lispro (humalog) 6 unit subq ac allergies: coded allergies: sulfa (sulfonamide antibiotics) (mild, hives ) review of systems constitutional: reports: fever. eyes: denies: visual loss/blurred. ent: denies: sore throat. respiratory: denies: sob. cardiovascular: denies: chest pain. gi: reports: nausea, vomiting. gu: denies: dysuria. neuro: denies: seizure. objective general vs/i o: vital signs: date time temp pulse resp b/p b/p pulse o2 o2 f low fio2 mean ox delivery rate 11/28 1044 36.8 79 18 111/70 83.5 100 11/28 0759 36.7 77 16 100/61 73.8 97 11/28 0337 36.9 81 16 122/72 88.4 96 room air 11/27 2342 36.9 80 16 136/77 96.6 95 room air 11/27 1927 36.6 81 16 142/84 103.6 99 room air 24 hour i o ending at 0700: 11/28 0700 11/27 1900 intake total 310.00 480 output total balance 310.00 480 intake, iv 70.00 intake, oral 240 480 patient weight: weight (lb): 365 weight (oz): 12.27 weight (kg): 165.909 medications: active meds + dc'd last 24 hrs magnesium sulfate/dextrose (magnesium sulfate 1 g in dextrose 5% 100 ml) 100 ml once one iv (dc) docusate sodium (colace) 100 mg bid po pregabalin (lyrica) 75 mg bid po insulin human lispro (humalog) 10 unit once one subq (dc) lactated ringer's (lactated ringers) 1,000 ml as dir iv (dc) ondansetron hcl (zofran) 8 mg q8h prn prn po ondansetron hcl (zofran) 8 mg q8h prn prn iv non-formulary medication (vancomycin trough bisi nder) 1 each asdir misc hydrocodone bitart/acetaminophen (norco 5/325) 1 tab pacu once prn po ( dc) hydrocodone bitart/acetaminophen (norco 10/325) 1 tab pacu once prn po ( dc) hydromorphone hcl (dilaudid) 0.5 mg pacu q10min prn prn iv (dc) insulin human lispro (humalog) 0 pacu once prn s ubq (dc) labetalol hcl (trandate) 5 mg pacu q10min prn pr n iv (dc) meperidine hcl (demerol) 12.5 mg pacu once prn i v (dc) ondansetron hcl (zofran) 4 mg pacu once prn iv ( dc) insulin glargine (lantus/semglee) 30 unit q12h s ubq insulin human lispro (humalog) 5 unit ac subq ceftriaxone sodium (rocephin) 2,000 mg q24h iv sodium chloride (0.9% sodium chloride) 50 ml dextrose/water (dextrose 50% w syringe) 25 ml as dir prn iv (ckd) dextrose/water (dextrose 50% w syringe) 50 ml as dir prn iv (ckd) glucagon (glucagon) 1 mg asdir prn im clindamycin phosphate/dextrose (cleocin 900mg/d5 w 50ml) 50 ml q8hr iv heparin sodium (porcine) (heparin sodium) 5,000 unit q8hr subq insulin human lispro (humalog) 0 ac hs subq metoprolol tartrate (lopressor) 25 mg q12hr po hydralazine hcl (apresoline) 10 mg q6h prn prn i v hydrocodone bitart/acetaminophen (norco 10/325) 1 tab q6h prn prn po lactulose (lactulose) 20 gm q6h prn prn po ondansetron hcl (zofran odt) 4 mg q4h prn prn po tramadol hcl (ultram) 50 mg q6h prn prn po physical exam general appearance: no respiratory distress head/eyes: atraumatic neck: supple/no meningismus cardiovascular: regular rate and rhythm respiratory: clear to auscultation abdomen: soft extremities: no edema neuro/insurance risk surveyor: alert psychiatry: normal mood results findings/data: laboratory tests 11/28 11/28 11/28 1042 0717 0515 chemistry sodium (134 - 147 mmol/l) 134 potassium (3.4 - 5.0 mmol/l) 3.2 l chloride (100 - 108 mmol/l) 101 carbon dioxide (21 - 32 mmol/l) 21 anion gap (4.0 - 15.0 gap calc) 12.0 bun (7 - 18 mg/dl) 13 creatinine (0.6 - 1.0 mg/dl) 2.3 h glomerular filtr rate (>60 estgfr) 30 l glucose (70 - 110 mg/dl) 216 h poc glucose (70 - 110 mg/dl) 170 h 229 h calcium (8.5 - 10.1 mg/dl) 8.0 l phosphorus (2.5 - 4.9 mg/dl) 3.7 magnesium (1.8 - 2.4 mg/dl) 1.3 l diagnosis, assessment plan consultants: infectious disease, nephrology, ort lili free text dxa p notes free text dxa p notes: assessment: jayleen on ckd-iiia. volume depletion. hypokalemia. hyponatremia - improved. hypomagnesemia. anemia. left foot infection. dm. obesity. sepsis. plan: differential for jayleen on ckd includes pre-renal + /- atn in setting of volume depletion, infection/bacteremia, vancomycin use, and s/p surgery. will check renal ultrasound to evaluate the kidneys and rule out obstruction. will continue to monitor renal indices and urine output. will check ua + microscopic analysis, and urine sodium and urine c reatinine levels. off vancomycin. will start on ivf with lr + kcl as pt also has hypokalemia. serum electrolytes - replete k. serum sodium bet ter. monitor serum lytes. acid/base - stable. replete mag. monitor serum calcium, phosphorous, and magnesium levels. monitor h and h levels. monitor blood pressure. strict i's and o's and daily weights. renally dose all medications. avoid nsaid's except aspirin. no miguel inhibitor/arb for now. presently, there is no acute indication for hemo dialysis. plan d/w primary attending. thanks for the consult. will follow pt with you. please call for any questions. electronically signed by gabriela higginbotham md on 12/15/21 at 0731 rpt #: [id number] end of report 2021 10:59:00-00:00 [facility] ([facility]) hospitalist progress note report#:[id number] report status: signed date:11/28/21 time:105 patient: harleen manzano unit #: [id number] room/bed: [place] [address] : 80 age: 41 sex: f attend: samanta castle md adm dt: 11/25/21 author: yusuf castle md * all edits or amendments must be made on the el [employer]/computer document * see addendum subjective chief complaint: fevers nausea vomiting free text subj notes free text subj notes: patient lying on the bed feels better. slightly sleepy as did not sleep that well overnight. blood culture growing e. coli objective general vs/i o: vital signs: date time temp pulse resp b/p b/p pulse o2 o2 f low fio2 mean ox delivery rate 11/28 1044 98.2 79 18 111/70 83.5 100 11/28 0759 98.1 77 16 100/61 73.8 97 11/28 0337 98.4 81 16 122/72 88.4 96 room air 11/27 2342 98.4 80 16 136/77 96.6 95 room air 11/27 1927 97.9 81 16 142/84 103.6 99 room air 11/27 1541 88 16 158/87 111.0 11/27 1453 97.7 89 14 161/86 110.9 99 room air 24 hour i o ending at 0700: 11/28 0700 11/27 1900 intake total 310.00 480 output total balance 310.00 480 intake, iv 70.00 intake, oral 240 480 patient weight: weight (lb): 365 weight (oz): 12.27 weight (kg): 165.909 medications: active meds + dc'd last 24 hrs docusate sodium (colace) 100 mg bid po pregabalin (lyrica) 75 mg bid po vancomycin hcl (vancomycin hcl) 1,500 mg daily i v (can) sodium chloride (0.9% sodium chloride) 250 ml insulin human lispro (humalog) 10 unit once one subq (dc) potassium chloride (k-dur 20 meq) 40 meq once o ne po (dc) lactated ringer's (lactated ringers) 1,000 ml as dir iv (dc) ondansetron hcl (zofran) 8 mg q8h prn prn po ondansetron hcl (zofran) 8 mg q8h prn prn iv non-formulary medication (vancomycin trough bisi nder) 1 each asdir misc hydrocodone bitart/acetaminophen (norco 5/325) 1 tab pacu once prn po ( dc) hydrocodone bitart/acetaminophen (norco 10/325) 1 tab pacu once prn po ( dc) hydromorphone hcl (dilaudid) 0.5 mg pacu q10min prn prn iv (dc) insulin human lispro (humalog) 0 pacu once prn s ubq (dc) labetalol hcl (trandate) 5 mg pacu q10min prn pr n iv (dc) meperidine hcl (demerol) 12.5 mg pacu once prn i v (dc) ondansetron hcl (zofran) 4 mg pacu once prn iv ( dc) insulin glargine (lantus/semglee) 30 unit q12h s ubq insulin human lispro (humalog) 5 unit ac subq ceftriaxone sodium (rocephin) 2,000 mg q24h iv sodium chloride (0.9% sodium chloride) 50 ml dextrose/water (dextrose 50% w syringe) 25 ml as dir prn iv (ckd) dextrose/water (dextrose 50% w syringe) 50 ml as dir prn iv (ckd) glucagon (glucagon) 1 mg asdir prn im clindamycin phosphate/dextrose (cleocin 900mg/d5 w 50ml) 50 ml q8hr iv heparin sodium (porcine) (heparin sodium) 5,000 unit q8hr subq insulin human lispro (humalog) 0 ac hs subq metoprolol tartrate (lopressor) 25 mg q12hr po hydralazine hcl (apresoline) 10 mg q6h prn prn i v hydrocodone bitart/acetaminophen (norco 10/325) 1 tab q6h prn prn po lactulose (lactulose) 20 gm q6h prn prn po miscellaneous information (vancomycin pharmacy t o dose) 1 each asdir iv (dc) ondansetron hcl (zofran odt) 4 mg q4h prn prn po tramadol hcl (ultram) 50 mg q6h prn prn po results findings/data: laboratory tests 11/28 11/28 11/27 0717 0515 1544 chemistry sodium (134 - 147 mmol/l) 134 potassium (3.4 - 5.0 mmol/l) 3.2 l chloride (100 - 108 mmol/l) 101 carbon dioxide (21 - 32 mmol/l) 21 anion gap (4.0 - 15.0 gap calc) 12.0 bun (7 - 18 mg/dl) 13 creatinine (0.6 - 1.0 mg/dl) 2.3 h glomerular filtr rate (>60 estgfr) 30 l glucose (70 - 110 mg/dl) 216 h poc glucose (70 - 110 mg/dl) 229 h 262 h calcium (8.5 - 10.1 mg/dl) 8.0 l phosphorus (2.5 - 4.9 mg/dl) 3.7 magnesium (1.8 - 2.4 mg/dl) 1.3 l results: labs reviewed, current med profile rev' d free text obj notes free text obj notes: physical examination patient is a pleasant person lying on the bed does not appear to be in distress heent pupils equal round reactive light and acco mmodating normocephalic/ atraumatic skull normal oral mucosa neck supple no jvd chest clear bilateral entry no wheeze or crackle s cvs s1-s2 no murmur rubs or gallop abdomen soft nontender bowel sounds positive extremities no pedal edema pulses palpable left foot fifth metatarsal under the bandage whi ch was not open insurance risk surveyor alert oriented x3 moving all 4 extremities d ecrease sensation bilateral lower extremity up to chaney psych examination normal mood diagnosis, assessment plan consultants: infectious disease, nephrology, ort hopedics free text dxa p notes free text dxa p notes: sepsis with osteomyelitis of the left foot continue with iv fluids follow infectious work-up including blood cultur es started on broad-spectrum antibiotics including vanco ceftriaxone and clindamycin. vanco was stopped. orthopedics consulted status post i d and fifth metatarsal amputation. orthopedics thinks that they did not get the margins cleared up so will need 6 weeks of iv antibiotics monitor hemodynamic status closely postoperative care as per orthopedics. have also involved wound care as requested by orthopedics. id also on board left foot osteo- see above e. coli bacteremia patient blood culture growing e. coli pansensiti ve. most probable source appears to be left foot osteo and abscess. will need to get repeat blood cultures to document that the bacteremia is kathie red up before putting in the picc line. id on board. diabetes mellitus continue with insulin lantus. keep on insulin sl iding scale and premeal insulin. monitor blood sugars. renal dysfunction patient actually had atn in october and creatinine was slowly improving but then again deteriorated. could be related to the surg krissy. i have asked nephrology to evaluate. continue to monitor renal function avoid nephrotoxic medication dvt prophylaxis patient is full code patient was explained the pl an in detail all medication effect side effects were discussed all questions answered she agreed with the plan electronically signed by yusuf castle md on at 1105 addendum 1: 11/28/21 1105 by yusuf castle md will get bladder scan to make sure there is no u rinary tension. electronically signed by yusuf castle md on at 1106 rpt #: [id number] end of report 2021 10:32:00-00:00 [facility] ([facility]) infectious dis. progress note report#:[id number] report status: signed date:11/28/21 time:1032 patient: harleen manzano unit #: [id number] room/bed: [place] [address] : 80 age: 41 sex: f attend: samanta castle md adm dt: 11/25/21 author: pro bustamante md * all edits or amendments must be made on the [employer]/computer document * subjective chief complaint: foot infection, left hpi: leukocytosis has decreased. e. coli found in blo od cx. objective physical exam head/eyes: atraumatic, normocephalic cardiovascular: normal heart sounds respiratory: clear to auscultation, no distress abdomen: non-tender, soft, no distention extremities: no cyanosis, le ft foot wound plantar, 5th toe, boggy area on dorsum with fluctuance neuro/insurance risk surveyor: alert, oriented x 3 skin: no rash diagnosis, assessment plan free text a p: laboratory tests 11/28/21 0515: [embedded image not available] 11/27/21 0620: [embedded image not available] current ab zosyn, clindamycin 4 impression 1. 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 coli bacteremia (s=ceftriaxone, unasyn). gas was seen in tissue on imaging s/p partial am putation by ortho 11/27/21 2. acute renal insufficiency had atn/arf in 10/2021 3. uncontrolled dm with neuropathy had dka in 10/2021 had complex hospital stay 10/09-10/22/21- had to be intubated per records 4. h/o covid - october 2021 5. 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) wound care consultation note report#:[id number] report status: signed date:11/27/21 time:2321 patient: harleen manzano unit #: [id number] room/bed: [place] [address] : 80 age: 41 sex: f attend: carlo castle ed, md adm dt: 11/25/21 author: jonathan hernandez md * all edits or amendments must be made on the [employer]/computer document * history of present illness requesting clinician: yusuf castle md reason for consult: wound care hpi: ms. curran is a 40 year old lady who came in with complains of fevers nausea and vomiting and left foot infection. patien t stated that she was admitted and [facility] for 2 weeks and wa s discharged home on october 22 at which point she was found to have left foot wound. podiatry recommen ded outpatient follow-up and oral antibiotics. history past history past medical history: diabetes mellitus past surgical history: tma past family history: father mother relation not specified for: family history: diabetes family history: heart disease medications: home medications: medication dose/rte/freq days qty entered last max daily dose reviewed dme - glucose lancets 10/22/21 (glucose lancets) 1345 strength: 1 item each dme - glucose meter 10/22/21 (glucose meter) 1345 strength: 1 item each dme - glucose strips 10/22/21 (glucose strips) 1345 strength: 1 item each amoxicillin (amoxil) 500 mg po q8hr 33 10/22/21 strength: 500 mg cap 1306 furosemide (lasix) 40 mg po daily 30 10/22/21 strength: 40 mg tab 1306 insulin glargine 20 unit subq bid 1000 10/22/21 (lantus) 1306 strength: 100 unit/ml vial insulin lispro (humalog) 6 unit subq ac 1000 0 10/22/21 strength: 100 unit/ml vial 1306 current hospital medications: 08:00 sig/aubrey start time last medication dose route stop time status admin non-formulary 1 each asdir 11/27 0800 ac medication misc 12/27 0759 (vancomycin trough reminder) anti-infective agents sig/aubrey start time last medication dose route stop time status admin ceftriaxone sodium 2,000 mg q24h 11/26 1245 ac 11/29 (rocephin) iv 12/10 1244 1242 sodium chloride 50 ml (0.9% sodium chloride) clindamycin 50 ml q8hr 11/26 0600 ac 11/29 phosphate/dextrose iv 12/10 0559 0601 (cleocin 900mg/d5w 50ml) blood formation,coagulation sig/aubrey start time last medication dose route stop time status admin heparin sodium 5,000 unit q8hr 11/25 2200 ac (porcine) subq 12/09 2159 0601 (heparin sodium) cardiovascular drugs sig/aubrey start time last medication dose route stop time status admin metoprolol tartrate 25 mg q12hr 11/25 2100 ac 0 11/29 (lopressor) po 12/25 2059 0850 hydralazine hcl 10 mg q6h prn prn 11/25 1900 ac 11/26 (apresoline) iv 12/25 1859 0422 central nervous system agents sig/aubrey start time last medication dose route stop time status admin magnesium sulfate/ 100 ml once one 11/28 1415 d c 11/28 dextrose iv 11/28 1514 1446 (magnesium sulfate 1 g in dextrose 5% 100 ml) pregabalin 75 mg bid 11/28 0900 ac 11/29 (lyrica) po 11/29 1701 0850 hydrocodone bitart/ 1 tab q6h prn prn 11/25 190 0 ac 11/26 acetaminophen po 12/05 1859 1726 (norco 10/325) tramadol hcl 50 mg q6h prn prn 11/25 1900 ac (ultram) po 12/05 1859 2157 electrolytic, caloric, and noe sig/aubrey start time last medication dose route stop time status admin potassium chloride 10 meq .q20h 11/28 1745 ac 0 11/28 (kcl) iv 12/28 1744 1842 lactated ringer's 1,000 ml (lactated ringers) potassium chloride 20 meq once one 11/28 1745 d c 11/28 (k-dur 20 meq) po 11/28 1746 1825 dextrose/water 25 ml asdir prn 11/26 1030 ckd (dextrose 50% w iv 12/26 1029 syringe) dextrose/water 50 ml asdir prn 11/26 1030 ckd (dextrose 50% w iv 12/26 1029 syringe) lactulose 20 gm q6h prn prn 11/25 1900 ac (lactulose) po 12/25 1859 gastrointestinal drugs sig/aubrey start time last medication dose route stop time status admin docusate sodium 100 mg bid 11/28 0900 ac 11/29 (colace) po 12/28 0859 0850 ondansetron hcl 8 mg q8h prn prn 11/27 0845 ac (zofran) po 12/27 0844 ondansetron hcl 8 mg q8h prn prn 11/27 0845 ac (zofran) iv 12/27 0844 ondansetron hcl 4 mg q4h prn prn 11/25 1900 ac (zofran odt) po 12/25 1859 hormones and synthetic substit sig/aubrey start time last medication dose route stop time status admin insulin glargine 30 unit q12h 11/26 1900 ac (lantus/semglee) subq 12/26 1859 0646 insulin human lispro 5 unit ac 11/26 1630 ac (humalog) subq 12/26 1629 1241 glucagon 1 mg asdir prn 11/26 1030 ac (glucagon) im 12/26 1029 insulin human lispro 0 ac hs 11/25 2100 ac 11/10 0 (humalog) subq 12/259 1825 allergies: coded allergies: sulfa (sulfonamide antibiotics) (mild, hives ) review of systems skin: reports: other (left foot wound). objective vs/i o: last documented: result date time pulse ox 98 11/29 1112 b/p 105/68 11/29 1112 b/p mean 80.4 11/29 1112 o2 delivery room air 11/29 111 temp 97.3 11/29 1112 pulse 79 11/29 1112 resp 14 11/29 1112 24 hour i o ending at 0700: 11/29 0700 11/28 1900 intake total 1000.00 output total balance 1000.00 intake, iv 800.00 intake, oral 200 general appearance: obese head/eyes: atraumatic neck: no jvd cardiovascular: no rub respiratory: no distress abdomen: soft, non-tender extremities: no edema neuro/insurance risk surveyor: alert, disoriented skin: dry wound assessment wound assessment 1: type/cause: post-op wound location: foot tissue layers: limited to skin breakdown diagnosis, assessment plan problem list/a p: 1. wound of left foot a p defer dressing changes to orthopedics. defer de cision to bear any weight though would be better to non weight bear for no w. 2. obesity a p advised weight loss to help with pressure reduc tion. 3. type i diabetes mellitus with hyperosmolarit y, uncontrolled a p f/u mri. may need to implore vasculature patenc y 4. jayleen (acute kidney injury) electronically signed by jonathan hernandez md on at 1456 rpt #: [id number] end of report 2021-11-27 14:52:00-00:00 [facility] ([facility]) hospitalist progress note report#:[id number] report status: signed date:11/27/21 time:1452 patient: harleen manzano unit #: [id number] [address] age: 40 sex: f attend: carlo castle ed, md adm dt: 11/25/21 author: yusuf castle md * all edits or amendments must be made on the [employer] document * subjective chief complaint: fevers nausea vomiting comments: patient lying on the bed just returned from surg krissy. feels better. objective general vs/i o: vital signs: date time temp pulse resp b/p b/p pulse o2 o2 f low fio2 mean ox delivery rate 11/27 1046 97.6 86 16 128/82 97 98 11/27 1025 83 10 126/75 99 11/27 1020 85 11 126/77 99 11/27 1015 90 11 128/71 98 11/27 1010 84 16 130/61 99 room air 11/27 1005 97.1 83 20 131/73 100 room air 11/27 0713 85 18 122/60 100 room air 11/27 0327 98.4 81 16 94/62 72.6 98 room air 11/26 2313 98.8 87 16 106/66 79.3 97 room air 11/26 1941 98.8 92 16 91/56 67.6 97 room air 11/26 1644 99.1 98 18 147/80 102.5 98 room air 24 hour i o ending at 0700: 11/27 0700 11/26 1900 intake total output total balance patient 165.909 kg weight weight stated/reported measurement method patient weight: weight (lb): 365 weight (oz): 12.27 weight (kg): 165.909 medications: active meds + dc'd last 24 hrs docusate sodium (colace) 100 mg bid po pregabalin (lyrica) 75 mg bid po vancomycin hcl (vancomycin hcl) 1,500 mg daily i v (can) sodium chloride (0.9% sodium chloride) 250 ml fentanyl citrate (sublimaze) 0 .stk-med one .rou te (dc) acetaminophen (tylenol extra strength) 1,000 mg q6h po (dc) lactated ringer's (lactated ringers) 1,000 ml as dir iv ondansetron hcl (zofran) 8 mg q8h prn prn po ondansetron hcl (zofran) 8 mg q8h prn prn iv ephedrine sulfate (ephedrine sulfate) 0 .stk-med one .route (dc) sodium chloride (sodium chloride 0.9%) 10 ml .s tk-med one iv (dc) non-formulary medication (vancomycin trough bisi nder) 1 each asdir misc fentanyl citrate (sublimaze) 0 .stk-med one .rou te (dc) glycopyrrolate (robinul) 0 .stk-med one .route ( dc) lidocaine hcl (xylocaine) 0 .stk-med one .route (dc) propofol (diprivan) 20 ml .stk-med one iv (dc) bupivacaine hcl (marcaine 0.5%) 0 .stk-med one . route (dc) vancomycin hcl (vancomycin hcl) 0 .stk-med one . route (dc) hydrocodone bitart/acetaminophen (norco 5/325) 1 tab pacu once prn po hydrocodone bitart/acetaminophen (norco 10/325) 1 tab pacu once prn po hydromorphone hcl (dilaudid) 0.5 mg pacu q10min prn prn iv insulin human lispro (humalog) 0 pacu once prn s ubq labetalol hcl (trandate) 5 mg pacu q10min prn pr n iv meperidine hcl (demerol) 12.5 mg pacu once prn i v ondansetron hcl (zofran) 4 mg pacu once prn iv insulin glargine (lantus/semglee) 30 unit q12h s ubq insulin human lispro (humalog) 5 unit ac subq ceftriaxone sodium (rocephin) 2,000 mg q24h iv sodium chloride (0.9% sodium chloride) 50 ml dextrose/water (dextrose 50% w syringe) 25 ml as dir prn iv (ckd) dextrose/water (dextrose 50% w syringe) 50 ml as dir prn iv (ckd) glucagon (glucagon) 1 mg asdir prn im vancomycin hcl (vancomycin hcl) 1,250 mg q12hr i v (dc) sodium chloride (0.9% sodium chloride) 250 ml clindamycin phosphate/dextrose (cleocin 900mg/d5 w 50ml) 50 ml q8hr iv heparin sodium (porcine) (heparin sodium) 5,000 unit q8hr subq insulin human lispro (humalog) 0 ac hs subq metoprolol tartrate (lopressor) 25 mg q12hr po hydralazine hcl (apresoline) 10 mg q6h prn prn i v hydrocodone bitart/acetaminophen (norco 10/325) 1 tab q6h prn prn po lactulose (lactulose) 20 gm q6h prn prn po miscellaneous information (vancomycin pharmacy t o dose) 1 each asdir iv (dc) ondansetron hcl (zofran odt) 4 mg q4h prn prn po sodium chloride (0.9% sodium chloride) 1,000 ml .q10h iv (dc) tramadol hcl (ultram) 50 mg q6h prn prn po results findings/data: laboratory tests 11/27 11/27 11/27 11/26 1053 1009 0620 1937 chemistry sodium (134 - 147 mmol/l) 137 potassium (3.4 - 5.0 mmol/l) 3.2 l chloride (100 - 108 mmol/l) 103 carbon dioxide (21 - 32 mmol/l) 24 anion gap (4.0 - 15.0 gap calc) 10.0 bun (7 - 18 mg/dl) 7 creatinine (0.6 - 1.0 mg/dl) 1.3 h glomerular filtr rate (>60 estgfr) 58 l glucose (70 - 110 mg/dl) 144 h poc glucose (70 - 110 mg/dl) 205 h 182 h 273 h calcium (8.5 - 10.1 mg/dl) 8.0 l serum , qual (negative screen) serum n egative 11/26 1643 chemistry poc glucose (70 - 110 mg/dl) 265 h laboratory tests 11/27 0620 hematology wbc (3.5 - 11.0 k/mm3) 10.0 rbc (4.70 - 6.10 m/mm3) 3.54 l hgb (10.4 - 14.9 g/dl) 8.8 l hct (31.5 - 44.1 %) 27.5 l mcv (84.5 - 98.6 fl) 77.7 l mch (27.0 - 34.2 pg) 24.9 l mchc (31.5 - 34.0 g/dl) 32.0 rdw (11.5 - 14.5 sd) 13.5 plt count (150 - 450 k/mm3) 344 mpv (7.0 - 10.5 fl) 11.00 h neut % (auto) (40 - 76 %) 72.0 lymph % (auto) (20.5 - 51.1 %) 15.1 l mono % (auto) (1.7 - 9.3 %) 12.0 h eos % (auto) (0.0 - 6.0 %) 0.0 baso % (auto) (0.0 - 2.0 %) 0.4 neut # (auto) (1.8 - 7.6 k/mm3) 7.2 lymph # (auto) (0.6 - 3.2 k/mm3) 1.5 mono # (auto) (0.3 - 1.1 k/mm3) 1.2 h eos # (auto) (0.0 - 0.4 k/mm3) 0.0 baso # (auto) (0.0 - 0.1 k/mm3) 0.0 abs immat gran (auto) (0.00 - 0.03 x10 3/ul) 0. 05 h add manual diff (criteria diff/scn) no immature gran % (0.0 - 5.0 %) 0.5 nucleated rbc % (0.0 - 1.0 /100wbc%) 0.0 laboratory tests 11/27 0620 toxicology vancomycin trough (10 - 20 mcg/ml) 27.5 h results: labs reviewed, current med profile rev' d free text obj notes free text obj notes: physical examination patient is a pleasant person lying on the bed does not appear to be in distress heent pupils equal round reactive light and acco mmodating normocephalic/ atraumatic skull normal oral mucosa neck supple no jvd chest clear bilateral entry no wheeze or crackle s cvs s1-s2 no murmur rubs or gallop abdomen soft nontender bowel sounds positive extremities no pedal edema pulses palpable left foot fifth metatarsal under the bandage whi ch was not open insurance risk surveyor alert oriented x3 moving all 4 extremities d ecrease sensation bilateral lower extremity up to chaney psych examination normal mood diagnosis, assessment plan consultants: infectious disease, orthopedics free text dxa p notes free text dxa p notes: sepsis with osteomyelitis of the left foot continue with iv fluids follow infectious work-up including blood cultur es started on broad-spectrum antibiotics including vanco ceftriaxone and clindamycin orthopedics consulted status post i d and fifth metatarsal amputation. orthopedics thinks that they did not get the margins cleared up so will need 6 weeks of iv antibiotics monitor hemodynamic status closely postoperative care as per orthopedics. have also involved wound care as requested by orthopedics. id also on board left foot osteo- see above bacteremia patient blood culture growing gram-negat kianna rods. most probable source appears to be left foot osteo and abscess. will need to get repeat blood cultures to document that the bacteremia is cleared up before putting in the picc line. id on board. diabetes mellitus continue with insulin lantus. keep on insulin sl iding scale and premeal insulin. monitor blood sugars. renal dysfunction patient actually had atn in october and creatinine is slowly improving. continue to monitor renal function avoid nephrotoxic medi cation dvt prophylaxis patient is full code patient was explained the pl an in detail all medication effect side effects were discussed all questions answered she agreed with the plan electronically signed by yusuf castle md on at 1455 [facility] #: [id number] end of report 2021-11-27 12:29:00-00:00 [facility] ([facility]) infectious dis. progress note report#:[id number] report status: signed date:11/27/21 time:1229 patient: harleen manzano unit #: [id number] room/bed: [place] [address] : 80 age: 40 sex: f attend: samanta castle md adm dt: 11/25/21 author: pro bustamante md * all edits or amendments must be made on the el [employer]/computer document * subjective chief complaint: foot infection, left hpi: leukocytosis has decreased. e. coli found in blo od cx. review of systems constitutional: denies: fever. objective physical exam general appearance: awake head/eyes: atraumatic, normocephalic cardiovascular: normal heart sounds respiratory: clear to auscultation, no distress abdomen: non-tender, soft, no distention extremities: no cyanosis, le ft foot wound plantar, 5th toe, boggy area on dorsum with fluctuance neuro/insurance risk surveyor: alert, oriented x 3 diagnosis, assessment plan free text a p: laboratory tests 11/27/21 0620: [embedded image not available] current ab vancomycin,zosyn, clindamycin 3 impression 1. left diabetic foot osteomyelitis with abscess and sepsis gas was seen in tissue on imaging s/p partial am putation by ortho 11/27/21 2. acute renal insufficiency had atn/arf in 10/2021 3. uncontrolled dm with neuropathy had dka in 10/2021 had complex hospital stay 10/09-10/22/21- had to be intubated per records 4. h/o covid - october 2021 5. 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) pharmacy prog.note-vancomycin report#:[id number] report status: signed date:11/27/21 time:1019 patient: harleen manzano unit #: [id number] room/bed: [place] [address] : 80 age: 40 sex: f attend: samanta castle md adm dt: 11/25/21 author: abigail spain [facility] * all edits or amendments must be made on the el [employer]/computer document * vancomycin vancomycin medication therapy goal: trough 15-20 mcg/ml indication for treatment: osteomyelitis site of infection: suspected, known current therapy: vanc 1.25g q12hr weight: actual weight (kg): 165 labs: laboratory tests: 11/28 619 toxicology vancomycin trough (10 - 20 mcg/ml) 27.5 h laboratory test : 11/28 619 chemistry bun (7 - 18 mg/dl) 7 creatinine (0.6 - 1.0 mg/dl) 1.3 h hematology wbc (3.5 - 11.0 k/mm3) 10.0 microbiology: 11/27 920 wnd other: acid fast bacilli smear - recd 11/27 920 wnd other: acid fast bacilli culture - recd 11/27 920 drainage: fungal smear - recd 11/27 920 drainage: fungal culture - recd 11/27 920 toe: wound culture - recd 11/27 920 toe: anaerobic culture - recd 11/27 920 toe: gram stain - recd 11/26 041 nasal: mrsa screen - comp 11/25 162 blood: blood culture - res 11/25 1620 blood: blood culture - res 11/25 161 blood: blood culture - res gram negative max 11/25 161 blood: blood culture - res treatment plan: change regimen regimen: trough 27.5 hold vanc dose today restart tomorrow at vanc 1.5g q24hr draw trough on 12/01 @ 0800 monitor renal function electronically signed by abigail spain [facility] on 2 at 1021 rpt #: [id number] end of report 2021-11-27 08:05:00-00:00 [facility] ([facility]) orthopaedic progress note report#:[id number] report status: signed date:11/27/21 time:804 patient: harleen manzano unit #: [id number] room/bed: [place] [address] : 80 age: 40 sex: f attend: samanta castle md adm dt: 11/25/21 author: jose garland * all edits or amendments must be made on the el [employer]/computer document * subjective hpi: follow up of mri exam. objective vs: last documented: result date time pulse ox 100 11/27 0713 b/p 122/60 11/27 0713 o2 delivery room air 11/27 07 pulse 85 11/27 0713 resp 18 11/27 07 b/p mean 72.6 11/27 0327 temp 98.4 11/27 0327 patient weight: weight (lb): 365 weight (oz): 12.27 weight (kg): 165.909 free text obj notes free text obj notes: physical exam vs/i o: vital signs date temp pulse resp b/p b/p mean pulse ox fio2 11/25 102.5 115 18 148/78 101 100 last documented: result date time pulse ox 100 11/25 1600 b/p 148/78 11/25 1600 b/p mean 101 11/25 1600 o2 delivery room air 11/25 1600 temp 102.5 11/25 1600 pulse 115 11/25 1600 resp 18 11/25 1600 patient weight and bmi weight (kg): 165.909 bmi: 51.0 results findings/data: laboratory tests: 11/25 11/25 1620 1615 chemistry sodium (134 - 147 mmol/l) 132 l potassium (3.4 - 5.0 mmol/l) 3.0 l chloride (100 - 108 mmol/l) 96 l carbon dioxide (21 - 32 mmol/l) 25 anion gap (4.0 - 15.0 gap calc) 11.0 bun (7 - 18 mg/dl) 6 l creatinine (0.6 - 1.0 mg/dl) 1.3 h glomerular filtr rate (>60 estgfr) 58 l glucose (70 - 110 mg/dl) 211 h lactic acid (0.4 - 2.0 mmol/l) 2.7 h calcium (8.5 - 10.1 mg/dl) 9.1 total bilirubin (0.2 - 1.2 mg/dl) 0.40 direct bilirubin (0.00 - 0.30 mg/dl) 0.10 indirect bilirubin (0.2 - 1.2 mg/dl) 0.30 ast (15 - 37 unit/l) 14 l alt (12 - 78 unit/l) 11 l total alk phosphatase (45 - 117 unit/l) 73 troponin i high sens (0 - 34 ng/l) 4.7 total protein (6.4 - 8.2 g/dl) 8.5 h albumin (3.4 - 5.0 g/dl) 2.8 l hematology wbc (3.5 - 11.0 k/mm3) 12.3 h rbc (4.70 - 6.10 m/mm3) 4.26 l hgb (10.4 - 14.9 g/dl) 10.6 hct (31.5 - 44.1 %) 33.1 mcv (84.5 - 98.6 fl) 77.7 l mch (27.0 - 34.2 pg) 24.9 l mchc (31.5 - 34.0 g/dl) 32.0 rdw (11.5 - 14.5 sd) 13.2 plt count (150 - 450 k/mm3) 425 mpv (7.0 - 10.5 fl) 11.30 h neut % (auto) (40 - 76 %) 78.6 h lymph % (auto) (20.5 - 51.1 %) 15.9 l mono % (auto) (1.7 - 9.3 %) 4.9 eos % (auto) (0.0 - 6.0 %) 0.0 baso % (auto) (0.0 - 2.0 %) 0.2 neut # (auto) (1.8 - 7.6 k/mm3) 9.7 h lymph # (auto) (0.6 - 3.2 k/mm3) 2.0 mono # (auto) (0.3 - 1.1 k/mm3) 0.6 eos # (auto) (0.0 - 0.4 k/mm3) 0.0 baso # (auto) (0.0 - 0.1 k/mm3) 0.0 abs immat gran (auto) (0.00 - 0.03 x10 3/ul) 0. 05 h add manual diff (criteria diff/scn) no immature gran % (0.0 - 5.0 %) 0.4 nucleated rbc % (0.0 - 1.0 /100wbc%) 0.0 laboratory tests 11/25/21 1620: [embedded image not available] radiology data: recent impressions: radiology - xr foot 3+v lt 11/259 report impression - status: signed entered: 11/25/2021 6442 impression: osteomyelitis with pathological fractures involv ing the fifth metatarsal head and fifth proximal phalanx. subc utaneous emphysema overlying the fifth proximal phalanx may relate to overlying wound or potentially a gas gangrene. impression by: [email or web address] Misa marshall m.d. results: labs reviewed, x-ray personally reviewe d, current med profile rev'd mri of foot: osteomyelitis of 5th and 4th toe at metatarsal head with septic arthritis of 4th and 5th mtp joint free text pe notes free text pe notes: physical examination patient is a pleasant person lying on the bed does not appear to be in distress heent pupils equal round reactive light and acco mmodating normocephalic/ atraumatic skull normal oral mucosa neck supple no jvd chest clear bilateral entry no wheeze or crackle s cvs s1-s2 no murmur rubs or gallop abdomen soft nontender bowel sounds positive extremities no pedal edema pulses palpable left foot fifth metatarsal bone malodorous wound no discharge nontender dusky colored. decrease sensation at tip of 5th toe wi th unstable mtp joint. mild swelling of 4th toe insurance risk surveyor alert oriented x3 moving all 4 extremities decree sensation bilateral lower extremity up to chaney psych examination normal mood no suicidal homici breanna ideation diagnosis, assessment plan free text a p: diagnosis, assessment plan free text a p: left foot diabetic ulcer with drainage left foot osteomyelitis of 5h toe proxim al phalanx and part of metatarsal head osteomyelitis of 4th toe metatarsal head with septic arthrtis of 5th and 4th mtp joints plan: recommend surgery recommend mri of foot to rule out osteomyelitis of 4th toe surgery tomorrow i d of left foot with amputation of 5th toe, pos sible amputation of 4th toe . diabetic control as per hosptialist service antibiotics as per id physician recommendation consultants: infectious disease, orthopedics electronically signed by jose garland on 11/27/21 at 0809 rpt #: [id number] end of report 2021-11-26 12:41:00-00:00 [facility] ([facility]) infect disease consult note report#:[id number] report status: signed date:11/26/21 time:1241 patient: harleen manzano unit #: [id number] room/bed: [place] [address] : 80 age: 40 sex: f attend: samanta castle md adm dt: 11/25/21 author: donna vieyra md * all edits or amendments must be made on the el [employer]/computer document * history of present illness reason for consult: diabetic foot infection chief complaint: foot infection, left hpi: came with worsening left foot wound c/o n/v and fever had a recent complex hospitalization in [facility] 10/09-10/20/21 dka/ atn/ covid 19/ diabetic foot infection no cp/sob has some foul odor and drainage from letf foot history - adult longitudinal past medical history: reports: diabetes mellitus. 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 recent illness as mentioned in hpi additional surgical history: additional family history: reviewed not significant in this patient's care alcohol use: denies etoh use drug use: denies recreational drugs smoking status: smoking status for patients 13 years old or old er: never smoker medications: home medications: medication dose/rte/freq days qty entered last max daily dose reviewed dme - glucose lancets 10/22/21 (glucose lancets) 1345 strength: 1 item each dme - glucose meter 10/22/21 (glucose meter) 1345 strength: 1 item each dme - glucose strips 10/22/21 (glucose strips) 1345 strength: 1 item each amoxicillin (amoxil) 500 mg po q8hr 33 10/22/21 strength: 500 mg cap 1306 furosemide (lasix) 40 mg po daily 30 10/22/21 strength: 40 mg tab 1306 insulin glargine 20 unit subq bid 1000 10/22/21 (lantus) 1306 strength: 100 unit/ml vial insulin lispro (humalog) 6 unit subq ac 1000 strength: 100 unit/ml vial 1306 current hospital medications: 08:00 sig/aubrey start time last medication dose route stop time status admin non-formulary 1 each asdir 11/27 0800 ac medication misc 12/27 0759 (vancomycin trough reminder) miscellaneous 1 each asdir 11/25 1900 ac information iv 12/25 1859 (vancomycin pharmacy to dose) anti-infective agents sig/aubrey start time last medication dose route stop time status admin ceftriaxone sodium 2,000 mg q24h 11/26 1245 unv (rocephin) iv 12/10 1244 sodium chloride 50 ml (0.9% sodium chloride) vancomycin hcl 1,250 mg q12hr 11/26 0900 ac (vancomycin hcl) iv 12/10 0859 0813 sodium chloride 250 ml (0.9% sodium chloride) clindamycin 50 ml q8hr 11/26 0600 ac 11/26 phosphate/dextrose iv 12/10 0559 0511 (cleocin 900mg/d5w 50ml) piperacillin sod/ 3.375 gm q8hr 11/26 0600 dcr 11/26 tazobactam sod iv 12/10 0559 0510 (zosyn) sodium chloride 100 ml (sodium chloride 0.9%) clindamycin 50 ml x1ed sta 11/25 1649 dc 11/25 phosphate/dextrose iv 11/25 1708 1758 (cleocin 900mg/d5w 50ml) piperacillin sod/ 4.5 gm x1ed sta 11/25 1611 d c 11/25 tazobactam sod iv 11/25 1658 1713 (zosyn) sodium chloride 100 ml (sodium chloride 0.9%) vancomycin hcl 1,000 mg x1ed sta 11/25 1611 dc 11/25 (vancomycin hcl) iv 11/25 1740 1845 sodium chloride 250 ml (0.9% sodium chloride) blood formation,coagulation sig/aubrey start time last medication dose route stop time status admin heparin sodium 5,000 unit q8hr 11/25 2200 ac (porcine) subq 12/09 2159 0511 (heparin sodium) cardiovascular drugs sig/aubrey start time last medication dose route stop time status admin metoprolol tartrate 25 mg q12hr 11/25 2100 ac 0 11/26 (lopressor) po 12/25 2058 0812 hydralazine hcl 10 mg q6h prn prn 11/25 1900 ac 11/26 (apresoline) iv 12/25 1859 0422 central nervous system agents sig/aubrey start time last medication dose route stop time status admin hydrocodone bitart/ 1 tab q6h prn prn 11/25 190 0 ac acetaminophen po 12/05 185 (norco 10/325) tramadol hcl 50 mg q6h prn prn 11/25 1900 ac (ultram) po 12/05 1859 acetaminophen 1,000 mg x1ed sta 11/25 1610 dc 0 11/25 (tylenol extra po 11/25 1611 1724 strength) electrolytic, caloric, and noe sig/aubrey start time last medication dose route stop time status admin dextrose/water 25 ml asdir prn 11/26 1030 ckd (dextrose 50% w iv 12/26 1029 syringe) dextrose/water 50 ml asdir prn 11/26 1030 ckd (dextrose 50% w iv 12/26 1029 syringe) lactulose 20 gm q6h prn prn 11/25 1900 ac (lactulose) po 12/25 1859 sodium chloride 1,000 ml .q10h 11/25 1900 ac (0.9% sodium iv 11/26 1459 0510 chloride) potassium chloride 40 meq x1ed sta 11/25 1822 d c 11/25 (k-dur 20 meq) po 11/25 1823 1903 sodium chloride 1,000 ml x1ed sta 11/25 1610 dc 11/25 (0.9% sodium iv 11/25 1710 1759 chloride) gastrointestinal drugs sig/aubrey start time last medication dose route stop time status admin ondansetron hcl 4 mg q4h prn prn 11/25 1900 ac (zofran odt) po 12/25 1859 ondansetron hcl 4 mg x1ed sta 11/25 1713 dc (zofran) iv 11/25 1714 1733 hormones and synthetic substit sig/aubrey start time last medication dose route stop time status admin insulin glargine 30 unit q12h 11/26 1900 unv (lantus/semglee) subq 12/26 1859 insulin human lispro 5 unit ac 11/26 1630 unv (humalog) subq 12/26 1629 glucagon 1 mg asdir prn 11/26 1030 ac (glucagon) im 12/26 1029 insulin human lispro 0 ac hs 11/25 2100 ac 11/09 8 (humalog) subq 12/25 2059 1146 insulin glargine 20 unit q12h 11/25 1900 dcr (lantus/semglee) subq 12/25 1859 0813 allergies: coded allergies: sulfa (sulfonamide antibiotics) (mild, hives ) free text pmh notes: history past medical surgical hx 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 recent illness as mentioned in hpi additional surgical history: family history additional family history: reviewed not significant in this patient's care social history alcohol use: denies etoh use drug use: denies recreational drugs smoking status: smoking status for patients 13 years old or old er: never smoker medication/allergy-vaccine hx medications: home medications: dme - glucose lancets (glucose lancets) each mis c daily dme - glucose meter (glucose meter) each misc as dir dme - glucose strips (glucose strips) each misc daily amoxicillin (amoxil) 500 mg po q8hr furosemide (lasix) 40 mg po daily insulin glargine (lantus) 20 unit subq bid insulin lispro (humalog) 6 unit subq ac allergies: coded allergies: sulfa (sulfonamide antibiotics) (mild, hives ) review of systems constitutional: reports: fever. skin: denies: rash. eyes: denies eye pain ent: denies: mouth pain. respiratory: denies: mcallister (dyspnea on exertion). cardiovascular: denies: chest pain. gi: denies: abdominal pain. gu: denies: flank pain. musculoskeletal: denies: joint swelling. neuro: denies: confusion. psych: denies: agitation. all systems rev neg: except as marked objective general vs/i o: vital signs date temp pulse resp b/p b/p mean pulse ox fio2 11/25-11/26 36.6-39.2 82-115 16-18 112-163/65-10 80.8-121.3 97-100 0 last documented: result date time pulse ox 100 11/26 1106 b/p 121/74 11/26 1106 b/p mean 89.9 11/26 1106 o2 delivery room air 11/26 1106 temp 37.5 11/26 1106 pulse 82 11/26 1106 resp 18 11/26 1106 vital signs: date time temp pulse resp b/p b/p pulse o2 o2 f low fio2 mean ox delivery rate 11/26 1106 37.5 82 18 121/74 89.9 100 room air 11/26 0712 37.8 94 18 112/65 80.8 97 room air 11/26 0411 37.8 94 18 163/100 121.3 99 11/26 0001 36.6 88 16 147/84 105.3 99 room air 11/25 2032 37.0 94 16 126/80 95.2 99 room air 11/25 1909 36.7 98 134/80 98 100 11/25 1600 39.2 115 18 148/78 101 100 room air 24 hour i o ending at 0700: 11/26 0700 11/25 1900 intake total output total balance patient 165.909 kg weight weight stated/reported measurement method patient weight: weight (lb): weight (oz): weight (kg): 165.909 physical exam general appearance: awake head/eyes: atraumatic, normocephalic ent: moist mucosal membranes neck: no masses or swelling cardiovascular: normal heart sounds respiratory: clear to auscultation, no distress abdomen: non-tender, soft, no distention genitourinary: no flank pain extremities: no cyanosis, le ft foot wound plantar, 5th toe, boggy area on dorsum with fluctuance musculoskeletal: no joint swelling neuro/insurance risk surveyor: alert, oriented x 3 skin: no rash psychiatry: normal affect diagnosis, assessment plan free text dxa p notes free text dxa p notes: laboratory tests 11/25/21 1620: [embedded image not available] current ab vancomycin,zosyn, clindamycin 2 impression 1. left diabetic foot infection with sepsis gas was seen in tissue on imaging suspected osteomyelitis left 5th prox phalanx an d metatarsal head suspect abscess 2. renal insufficiency had atn/arf in 10/2021 3. uncontrolled dm with neuropathy had dka in 10/2021 has complex hospital stay 10/09-10/22/21- had to be intubated per records 4. h/o covid - october 2021 5. obesity discussion noted fevers has leukocytosis- mild grew e.coli and enterococcus from foot wound 10/10 (sensitive isolates) was sent home on amoxicillin and started clindam ycin last week afetr seeing film and video graphics designer recs cont vancomcyin per pharm dosing cautiously- dis cussed with pharmacy dc zosyn- start ceftriaoxone cont clindamycin for now monitor fever curve watch cbc diff and bmp watch crcl closely- recent atn 10/2021 follow blood cx discussed with ortho- or tomorrow (5th and possi ble 4th toe amputations) will follow mri left foot will await or findings wound care will follow or cx and path assess tdap status electronically signed by donna vieyra md on at 1455 rpt #: [id number] end of report 2021-11-26 12:09:00-00:00 [facility]) hospitalist progress note report#:[id number] report status: signed date:11/26/21 time:1209 patient: harleen manzano unit #: [id number] room/bed: [place] [address] : 80 age: 40 sex: f attend: samanta castle md adm dt: 11/25/21 author: yusuf castle md * all edits or amendments must be made on the [employer]/computer document * subjective chief complaint: fevers nausea vomiting comments: patient lying on the bed actually feels better w as afebrile overnight. orthopedics evaluating the patient. objective general vs/i o: vital signs: date time temp pulse resp b/p b/p pulse o2 o2 f low fio2 mean ox delivery rate 11/26 1106 99.5 82 18 121/74 89.9 100 room air 11/26 0712 100.0 94 18 112/65 80.8 97 room air 11/26 0411 100.0 94 18 163/100 121.3 99 11/26 0001 97.9 88 16 147/84 105.3 99 room air 11/25 2032 98.6 94 16 126/80 95.2 99 room air 11/25 1909 98.1 98 134/80 98 100 11/25 1600 102.5 115 18 148/78 101 100 room air 24 hour i o ending at 0700: 11/26 0700 11/25 1900 intake total output total balance patient 165.909 kg weight weight stated/reported measurement method patient weight: weight (lb): weight (oz): weight (kg): 165.909 medications: active meds + dc'd last 24 hrs non-formulary medication (vancomycin trough bisi nder) 1 each asdir misc insulin glargine (lantus/semglee) 30 unit q12h s ubq (unv) insulin human lispro (humalog) 5 unit ac subq (u nv) dextrose/water (dextrose 50% w syringe) 25 ml as dir prn iv (ckd) dextrose/water (dextrose 50% w syringe) 50 ml as dir prn iv (ckd) glucagon (glucagon) 1 mg asdir prn im vancomycin hcl (vancomycin hcl) 1,250 mg q12hr i v sodium chloride (0.9% sodium chloride) 250 ml clindamycin phosphate/dextrose (cleocin 900mg/d5 w 50ml) 50 ml q8hr iv piperacillin sod/tazobactam sod (zosyn) 3.375 gm q8hr iv sodium chloride (sodium chloride 0.9%) 100 ml heparin sodium (porcine) (heparin sodium) 5,000 unit q8hr subq insulin human lispro (humalog) 0 ac hs subq metoprolol tartrate (lopressor) 25 mg q12hr po hydralazine hcl (apresoline) 10 mg q6h prn prn i v hydrocodone bitart/acetaminophen (norco 10/325) 1 tab q6h prn prn po insulin glargine (lantus/semglee) 20 unit q12h s ubq (dcr) lactulose (lactulose) 20 gm q6h prn prn po miscellaneous information (vancomycin pharmacy t o dose) 1 each asdir iv ondansetron hcl (zofran odt) 4 mg q4h prn prn po sodium chloride (0.9% sodium chloride) 1,000 ml .q10h iv tramadol hcl (ultram) 50 mg q6h prn prn po potassium chloride (k-dur 20 meq) [address] a po (dc) ondansetron hcl (zofran) 4 mg x1ed sta iv (dc) clindamycin phosphate/dextrose (cleocin 900mg/d5 w 50ml) 50 ml x1ed sta iv (dc) piperacillin sod/tazobactam sod (zosyn) 4.5 gm x 1ed sta iv (dc) sodium chloride (sodium chloride 0.9%) 100 ml vancomycin hcl (vancomycin hcl) 1,[address] a iv (dc) sodium chloride (0.9% sodium chloride) 250 ml acetaminophen (tylenol extra strength) 1,000 mg x1ed sta po (dc) sodium chloride (0.9% sodium chloride) 1,000 ml x1ed sta iv (dc) results findings/data: laboratory tests 11/26 11/26 11/25 11/25 11/25 1134 0758 2144 1850 1620 chemistry sodium (134 - 147 mmol/l) 132 l potassium (3.4 - 5.0 mmol/l) 3.0 l chloride (100 - 108 mmol/l) 96 l carbon dioxide (21 - 32 mmol/l) 25 anion gap (4.0 - 15.0 gap calc) 11.0 bun (7 - 18 mg/dl) 6 l creatinine (0.6 - 1.0 mg/dl) 1.3 h glomerular filtr rate (>60 estgfr) 58 l glucose (70 - 110 mg/dl) 211 h poc glucose (70 - 110 mg/dl) 246 h 213 h 238 h lactic acid (0.4 - 2.0 mmol/l) 1.0 calcium (8.5 - 10.1 mg/dl) 9.1 total bilirubin (0.2 - 1.2 mg/dl) 0.40 direct bilirubin (0.00 - 0.30 mg/dl) 0.10 indirect bilirubin (0.2 - 1.2 mg/dl) 0.30 ast (15 - 37 unit/l) 14 l alt (12 - 78 unit/l) 11 l total alk phosphatase (45 - 117 unit/l) 73 troponin i high sens (0 - 34 ng/l) 4.7 total protein (6.4 - 8.2 g/dl) 8.5 h albumin (3.4 - 5.0 g/dl) 2.8 l 11/25 1615 chemistry lactic acid (0.4 - 2.0 mmol/l) 2.7 h laboratory tests 11/25 1620 hematology wbc (3.5 - 11.0 k/mm3) 12.3 h rbc (4.70 - 6.10 m/mm3) 4.26 l hgb (10.4 - 14.9 g/dl) 10.6 hct (31.5 - 44.1 %) 33.1 mcv (84.5 - 98.6 fl) 77.7 l mch (27.0 - 34.2 pg) 24.9 l mchc (31.5 - 34.0 g/dl) 32.0 rdw (11.5 - 14.5 sd) 13.2 plt count (150 - 450 k/mm3) 425 mpv (7.0 - 10.5 fl) 11.30 h neut % (auto) (40 - 76 %) 78.6 h lymph % (auto) (20.5 - 51.1 %) 15.9 l mono % (auto) (1.7 - 9.3 %) 4.9 eos % (auto) (0.0 - 6.0 %) 0.0 baso % (auto) (0.0 - 2.0 %) 0.2 neut # (auto) (1.8 - 7.6 k/mm3) 9.7 h lymph # (auto) (0.6 - 3.2 k/mm3) 2.0 mono # (auto) (0.3 - 1.1 k/mm3) 0.6 eos # (auto) (0.0 - 0.4 k/mm3) 0.0 baso # (auto) (0.0 - 0.1 k/mm3) 0.0 abs immat gran (auto) (0.00 - 0.03 x10 3/ul) 0. 05 h add manual diff (criteria diff/scn) no immature gran % (0.0 - 5.0 %) 0.4 nucleated rbc % (0.0 - 1.0 /100wbc%) 0.0 laboratory tests 11/25 1644 serology sars-cov-2 ag (rapid) (negative) negative radiology data: recent impressions: radiology - xr foot 3+v lt 11/25 1629 report impression - status: signed entered: 11/25/2021 1646 impression: osteomyelitis with pathological fractures involv ing the fifth metatarsal head and fifth proximal phalanx. subc utaneous emphysema overlying the fifth proximal phalanx may relate to overlying wound or potentially a gas gangrene. impression by: [email or web address] - christine marshall m.d. radiology - xr chest 1 v 11/25 1921 report impression - status: signed entered: 11/25/2021 2138 impression: 1. no focal consolidation. no other acute abnorm ality. impression by: [email or web address] - timi vazquez m.d. results: labs reviewed, current med profile rev' d free text obj notes free text obj notes: physical examination patient is a pleasant person lying on the bed does not appear to be in distress heent pupils equal round reactive light and acco mmodating normocephalic/ atraumatic skull normal oral mucosa neck supple no jvd chest clear bilateral entry no wheeze or crackle s cvs s1-s2 no murmur rubs or gallop abdomen soft nontender bowel sounds positive extremities no pedal edema pulses palpable left foot fifth metatarsal under the bandage whi ch was not open insurance risk surveyor alert oriented x3 moving all 4 extremities decree sensation bilateral lower extremity up to chaney psych examination normal mood diagnosis, assessment plan consultants: infectious disease, orthopedics free text dxa p notes free text dxa p notes: sepsis with osteomyelitis of the left foot continue with iv fluids follow infectious work-up including blood cultur es started on broad-spectrum antibiotics including vanco zosyn and clindamycin orthopedics consulted planning for surgical i d tomorrow monitor hemodynamic status closely keep n.p.o. overnight id also on board left foot osteo- see above diabetes mellitus continue with insulin lantus. keep on insulin sl iding scale and premeal insulin. monitor blood sugars. give half the dos e if patient is going to go for any procedure. renal dysfunction patient actually had atn in october and creatinine is slowly improving. continue to monitor renal function avoid nephrotoxic medi cation dvt prophylaxis patient is full code patient was explained the an in detail all medication effect side effects were discussed all questions answered she agreed with the plan electronically signed by yusuf castle md on at 1211 rpt #: [id number] end of report 2021-11-26 12:01:00-00:00 [facility] ([facility]) orthopaedic consult note report#:[id number] report status: signed date:11/26/21 time:1201 patient: harleen manzano unit #: [id number] room/bed: [place] [address] : 80 age: 40 sex: f attend: samanta castle md adm dt: 11/25/21 author: jose garland md * all edits or amendments must be made on the el [employer]/computer document * history of present illness free text hpi notes free text hpi notes: hpi chief complaint: left foot non healing ulcer with drainage hpi: this is 40-year-old lady with uncontrolled type i dm who came to er yesterday in with complains of fevers nausea and vomiting and left foot swelling with non healing ulcer and drainage patient stated that she was admitted and [facility] and was discharged home on october 22 a t which point she was found to have left foot wound for which podiatry and recommended outpatient fo llow-up and oral antibiotics. patient was getting home health and woun d care at home and she went to see her film and video graphics designer on and w as told that she has probably bone infection and was given antibiotics even though she was asked to c ome to the ed but she had to make arrangements for her care so she ca me today to the er. since she has been having fevers on and off and some nause a episodes of vomiting nonbilious and nonbloody. she says that there is some wound discharge but not that much it does have some odor on the left foot wound. she does not feel that much pain because of neuropathy. she denies any headache sore throat cough earache nasal discharge visual changes any chest pain palpitation shortness of breath a ny abdominal pain diarrhea constipation any problem in the urine she does have peripheral neuropathy which has not changed denies any focal weakness. denie s any bruising bleeding any rash. in october she was admitted for dka sepsis was intu bated in the icu gradually improved and was moved out of icu. orthopedic surgery was consulted for left foot n on healing wound history - adult longitudinal past medical history: reports: diabetes mellitus. 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 recent illness as mentioned in hpi additional surgical history: family history additional family history: reviewed not significant in this patient's care social history alcohol use: denies etoh use drug use: denies recreational drugs smoking status: smoking status for patients 13 years old or old er: never smoker medication/allergy-vaccine hx medications: home medications: dme - glucose lancets (glucose lancets) each mis c daily dme - glucose meter (glucose meter) each misc as dir dme - glucose strips (glucose strips) each misc daily amoxicillin (amoxil) 500 mg po q8hr furosemide (lasix) 40 mg po daily insulin glargine (lantus) 20 unit subq bid insulin lispro (humalog) 6 unit subq ac allergies: coded allergies: sulfa (sulfonamide antibiotics) (mild, hives ) review of systems free text ros notes free text ros notes: review of systems all systems rev neg: except as noted objective vs: last documented: result date time pulse ox 100 11/26 1106 b/p 121/74 11/26 1106 b/p mean 89.9 11/26 1106 o2 delivery room air 11/26 1106 temp 99.5 11/26 1106 pulse 82 11/26 1106 resp 18 11/26 1106 patient weight: weight (lb): weight (oz): weight (kg): 165.909 free text obj notes free text obj notes: physical exam vs/i o: vital signs date temp pulse resp b/p b/p mean pulse ox fio2 11/25 102.5 115 18 148/78 101 100 last documented: result date time pulse ox 100 11/25 1600 b/p 148/78 11/25 1600 b/p mean 101 11/25 1600 o2 delivery room air 11/25 1600 temp 102.5 11/25 1600 pulse 115 11/25 1600 resp 18 11/25 1600 patient weight and bmi weight (kg): 165.909 bmi: 51.0 results findings/data: laboratory tests: 11/25 11/25 1620 1615 chemistry sodium (134 - 147 mmol/l) 132 l potassium (3.4 - 5.0 mmol/l) 3.0 l chloride (100 - 108 mmol/l) 96 l carbon dioxide (21 - 32 mmol/l) 25 anion gap (4.0 - 15.0 gap calc) 11.0 bun (7 - 18 mg/dl) 6 l creatinine (0.6 - 1.0 mg/dl) 1.3 h glomerular filtr rate (>60 estgfr) 58 l glucose (70 - 110 mg/dl) 211 h lactic acid (0.4 - 2.0 mmol/l) 2.7 h calcium (8.5 - 10.1 mg/dl) 9.1 total bilirubin (0.2 - 1.2 mg/dl) 0.40 direct bilirubin (0.00 - 0.30 mg/dl) 0.10 indirect bilirubin (0.2 - 1.2 mg/dl) 0.30 ast (15 - 37 unit/l) 14 l alt (12 - 78 unit/l) 11 l total alk phosphatase (45 - 117 unit/l) 73 troponin i high sens (0 - 34 ng/l) 4.7 total protein (6.4 - 8.2 g/dl) 8.5 h albumin (3.4 - 5.0 g/dl) 2.8 l hematology wbc (3.5 - 11.0 k/mm3) 12.3 h rbc (4.70 - 6.10 m/mm3) 4.26 l hgb (10.4 - 14.9 g/dl) 10.6 hct (31.5 - 44.1 %) 33.1 mcv (84.5 - 98.6 fl) 77.7 l mch (27.0 - 34.2 pg) 24.9 l mchc (31.5 - 34.0 g/dl) 32.0 rdw (11.5 - 14.5 sd) 13.2 plt count (150 - 450 k/mm3) 425 mpv (7.0 - 10.5 fl) 11.30 h neut % (auto) (40 - 76 %) 78.6 h lymph % (auto) (20.5 - 51.1 %) 15.9 l mono % (auto) (1.7 - 9.3 %) 4.9 eos % (auto) (0.0 - 6.0 %) 0.0 baso % (auto) (0.0 - 2.0 %) 0.2 neut # (auto) (1.8 - 7.6 k/mm3) 9.7 h lymph # (auto) (0.6 - 3.2 k/mm3) 2.0 mono # (auto) (0.3 - 1.1 k/mm3) 0.6 eos # (auto) (0.0 - 0.4 k/mm3) 0.0 baso # (auto) (0.0 - 0.1 k/mm3) 0.0 abs immat gran (auto) (0.00 - 0.03 x10 3/ul) 0. 05 h add manual diff (criteria diff/scn) no immature gran % (0.0 - 5.0 %) 0.4 nucleated rbc % (0.0 - 1.0 /100wbc%) 0.0 laboratory tests 11/25/21 1620: [embedded image not available] radiology data: recent impressions: radiology - xr foot 3+v lt 11/25 1629 report impression - status: signed entered: 11/25/2021 1646 impression: osteomyelitis with pathological fractures involv ing the fifth metatarsal head and fifth proximal phalanx. subc utaneous emphysema overlying the fifth proximal phalanx may relate to overlying wound or potentially a gas gangrene. impression by: [email or web address] - christine marshall m.d. results: labs reviewed, x-ray personally reviewe d, current med profile rev'd free text pe notes free text pe notes: physical examination patient is a pleasant person lying on the bed does not appear to be in distress heent pupils equal round reactive light and acco mmodating normocephalic/ atraumatic skull normal oral mucosa neck supple no jvd chest clear bilateral entry no wheeze or crackle s cvs s1-s2 no murmur rubs or gallop abdomen soft nontender bowel sounds positive extremities no pedal edema pulses palpable left foot fifth metatarsal bone malodorous wound no discharge nontender dusky colored. decrease sensation at tip of 5th toe wi th unstable mtp joint. mild swelling of 4th toe insurance risk surveyor alert oriented x3 moving all 4 extremities decree sensation bilateral lower extremity up to chaney psych examination normal mood no suicidal homici breanna ideation diagnosis, assessment plan free text a p: diagnosis, assessment plan free text a p: left foot diabetic ulcer with drainage left foot osteomyelitis of 5h toe proxim al phalanx and part of metatarsal head plan: recommend surgery recommend mri of foot to rule out osteomyelitis of 4th toe surgery tomorrow i d of left foot with possibel amputation of 5th toe, possibly 4th toe, depending on mri findings. diabetic control as per hosptialist service antibiotics as per id physician recommendation consultants: orthopedics electronically signed by jose garland on 11/26/21 at 1209 rpt #: [id number] end of report 2021-11-25 19:27:00-00:00 [facility] Prog.Note-Vancomycin REPORT#:[id number] REPORT STATUS: Signed DATE:11/25/21 TIME:1926 PATIENT: HARLEEN MANZANO UNIT #: [id number] ROOM/BED: [place] [address] : 80 AGE: 40 SEX: F ATTEND: Samanta Castle MD ADM AUTHOR: Verna Hickman RPh * ALL edits or amendments must be made on the [email or web address]/computer document * Vancomycin Vancomycin Medication Therapy Goal: trough 15-20 mcg/mL Indication for treatment: OSTEOMYELITIS Day of therapy: 1 Weight: Actual weight (kg): 165.9 Labs: Laboratory Test : 11/25 1620 Chemistry BUN (7 - 18 MG/DL) 6 L Creatinine (0.6 - 1.0 MG/DL) 1.3 H Hematology WBC (3.5 - 11.0 K/mm3) 12.3 H Microbiology: 11/25 1822 NASAL: MRSA Screen - ORD 11/25 1620 BLOOD: Blood Culture - RECD 11/25 1615 BLOOD: Blood Culture - RECD Treatment plan: consult, initiation of therapy Regimen: BMI 51 VANC 1 G X1 IN ER VANC 1.25 G Q12H TROUGH 11/28 799 Electronically Signed by Verna Hickman RPh on 0 11/25/21 at 1930 RPT #: [id number] END OF REPORT 2021-11-25 18:53:00-00:00 [facility] Hospitalist History Physical REPORT#:[id number] REPORT STATUS: Signed DATE:11/25/21 TIME:1852 PATIENT: HARLEEN MANZANO UNIT #: [id number] ROOM/BED: [place] : 80 AGE: 40 SEX: F ATTEND: Samanta Castle MD ADM AUTHOR: Yusuf Castle MD * ALL edits or amendments must be made on the el [employer]/computer document * History of Present Illness HPI Chief complaint: Fevers nausea vomiting HPI: This is 40-year-old lady who came in with compla ins of fevers nausea and vomiting and left foot infection. Patient stated that she was admitted and [facility] for [facility] weeks and was discharged home on October 22 a t which point she was found to have left foot wound for which podiatry and recommended outpatient fo llow-up and oral antibiotics. Patient was getting home health and woun d care at home and she went to see her film and video graphics designer on and w as told that she has probably bone infection and was given antibiotics even though she was asked to c ome to the ED but she had to make arrangements for her care so she ca me today to the ER. Since she has been having fevers on and off and some nause a episodes of vomiting nonbilious and nonbloody. She says that there is some wound discharge but not that much it does have some odor on the left foot wound. She does not feel that much pain because of neuropathy. She denies any headache sore throat cough earache nasal discharge visual changes any chest pain palpitation shortness of breath a ny abdominal pain diarrhea constipation any problem in the urine she does have peripheral neuropathy which has not changed denies any focal weakness. Denie s any bruising bleeding any rash. In October she was admitted for DKA sepsis was intu bated in the ICU gradually improved and was moved out of ICU. History Past Medical Surgical Hx Additional medical history: Diabetes mellitus on insulin With neuropathy Recent illness as mentioned in HPI Additional surgical history: Family History Additional family history: Reviewed not significant in this patient's care Social History Alcohol use: Denies EtOH use Drug use: Denies recreational drugs Smoking status: Smoking status for patients 13 years old or old er: Never Smoker Medication/Allergy-Vaccine Hx Medications: Home Medications: DME - GLUCOSE LANCETS (GLUCOSE LANCETS) EACH MIS C DAILY DME - GLUCOSE METER (GLUCOSE METER) EACH MISC DIR DME - GLUCOSE STRIPS (GLUCOSE STRIPS) EACH MISC DAILY AMOXICILLIN (AMOXIL) 500 MG PO Q8HR FUROSEMIDE (LASIX) 40 MG PO DAILY INSULIN GLARGINE (LANTUS) 20 UNIT SUBQ BID INSULIN LISPRO (HumaLOG) 6 UNIT SUBQ AC Allergies: Coded Allergies: Sulfa (Sulfonamide Antibiotics) (Mild, HIVES ) Review of Systems All systems rev neg: except as noted Physical Exam VS/I O: Vital Signs Date Temp Pulse Resp B/P B/P Mean Pulse Ox FiO2 11/25 102.5 115 18 148/78 101 100 Last Documented: Result Date Time Pulse Ox 100 11/25 1600 B/P 148/78 11/25 1600 B/P Mean 101 11/25 1600 O2 Delivery Room air 11/25 1600 Temp 102.5 11/25 1600 Pulse 115 11/25 1600 Resp 18 11/25 1600 Patient Weight and BMI Weight (kg): 165.909 BMI: 51.0 Results Findings/Data: Laboratory Tests: 11/25 11/25 1620 1615 Chemistry Sodium (134 - 147 mmol/L) 132 L Potassium (3.4 - 5.0 mmol/L) 3.0 L Chloride (100 - 108 mmol/L) 96 L Carbon Dioxide (21 - 32 mmol/L) 25 Anion Gap (4.0 - 15.0 GAP calc) 11.0 BUN (7 - 18 MG/DL) 6 L Creatinine (0.6 - 1.0 MG/DL) 1.3 H Glomerular Filtr Rate (>60 estGFR) 58 L Glucose (70 - 110 MG/DL) 211 H Lactic Acid (0.4 - 2.0 mmol/L) 2.7 H Calcium (8.5 - 10.1 MG/DL) 9.1 Total Bilirubin (0.2 - 1.2 MG/DL) 0.40 Direct Bilirubin (0.00 - 0.30 MG/DL) 0.10 Indirect Bilirubin (0.2 - 1.2 MG/DL) 0.30 AST (15 - 37 Unit/L) 14 L ALT (12 - 78 Unit/L) 11 L Total Alk Phosphatase (45 - 117 Unit/L) 73 Troponin I High Sens (0 - 34 ng/L) 4.7 Total Protein (6.4 - 8.2 G/DL) 8.5 H Albumin (3.4 - 5.0 G/DL) 2.8 L Hematology WBC (3.5 - 11.0 K/mm3) 12.3 H RBC (4.70 - 6.10 M/mm3) 4.26 L Hgb (10.4 - 14.9 G/DL) 10.6 Hct (31.5 - 44.1 %) 33.1 MCV (84.5 - 98.6 Fl) 77.7 L MCH (27.0 - 34.2 pg) 24.9 L MCHC (31.5 - 34.0 G/DL) 32.0 RDW (11.5 - 14.5 SD) 13.2 Plt Count (150 - 450 K/mm3) 425 MPV (7.0 - 10.5 fL) 11.30 H Neut % (Auto) (40 - 76 %) 78.6 H Lymph % (Auto) (20.5 - 51.1 %) 15.9 L [place] % (Auto) (1.7 - 9.3 %) 4.9 Eos % (Auto) (0.0 - 6.0 %) 0.0 Baso % (Auto) (0.0 - 2.0 %) 0.2 Neut # (Auto) (1.8 - 7.6 K/mm3) 9.7 H Lymph # (Auto) (0.6 - 3.2 K/mm3) 2.0 [place] # (Auto) (0.3 - 1.1 K/mm3) 0.6 Eos # (Auto) (0.0 - 0.4 K/mm3) 0.0 Baso # (Auto) (0.0 - 0.1 K/mm3) 0.0 Abs Immat Gran (auto) (0.00 - 0.03 x10 3/uL) 0. 05 H Add Manual Diff (CRITERIA DIFF/SCN) NO Immature Gran % (0.0 - 5.0 %) 0.4 Nucleated RBC % (0.0 - 1.0 /100WBC%) 0.0 Laboratory Tests 11/25/21 1620: [Embedded Image Not Available] Radiology data: Recent Impressions: RADIOLOGY - XR FOOT 3+V LT 11/25 1629 Report Impression - Status: SIGNED Entered: 11/25/2021 1646 IMPRESSION: Osteomyelitis with pathological fractures involv ing the fifth metatarsal head and fifth proximal phalanx. Subc utaneous emphysema overlying the fifth proximal phalanx may relate to overlying wound or potentially a gas gangrene. Impression By: [email or web address] Mias Marshall M.D. Results: labs reviewed, x-ray personally reviewe d, current med profile rev'd Free Text PE Notes Free Text PE Notes: Physical examination Patient is a pleasant person lying on the bed does not appear to be in distress HEENT pupils equal round reactive light and acco mmodating normocephalic/ atraumatic skull normal oral mucosa Neck supple no JVD Chest clear bilateral entry no wheeze or crackle s CVS S1-S2 no murmur rubs or gallop Abdomen soft nontender bowel sounds positive Extremities no pedal edema pulses palpable Left foot fifth metatarsal bone malodorous wound no discharge nontender dusky colored 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 Monitor hemodynamic status closely Tentatively keep n.p.o. overnight We will also ask ID to evaluate Left foot osteo- See above Diabetes mellitus Continue with insulin Lantus. Keep on insulin sl iding scale. Monitor blood sugars. Give half the dose if patient is going t o go for any procedure. Renal dysfunction Patient actually had ATN in October and creatinine is slowly improving. Continue to monitor renal function avoid nephrotoxic medi cation DVT prophylaxis Patient is full code Patient was explained the pl an in detail all medication effect side effects were discussed all questions answered she agreed with the plan Consultants: orthopedics Electronically Signed by Yusuf Castle MD on at 1902 RPT #: [id number] END OF REPORT 2021-11-25 17:03:00-00:00 [id number] [facility] [address] [place] [address] patient name: harleen manzano admit date: 2 account no: [id number] room no: [facility] age: 41 report type: eelectrocardiogram sex: f admitting physician: yusuf castle md attending physician: yusuf castle md order: [id number] test reason : cp test date/time stamp: tuenov 25 2021 17:03:42 blood pressure : 188/086 mmhg vent. rate : 114 bpm atrial rate : 114 bpm p-r int : 174 ms qrs dur : 092 ms qt int : 336 ms p-r-t axes : 116 184 088 degree s qtc int : 463 ms suspect arm lead reversal, interpretation as sumes no reversal sinus tachycardia right superior axis deviation pulmonary disease pattern abnormal ecg no previous ecgs available confirmed by md eloisa, ramon ([id number]) on 11:13:24 am referred by: self referred confirmed by:ramon robert md electronically signed by ramon amin md on 11/29/21 at 1113 patient name: harleen manzano [id number] 2021-11-25 16:12:00-00:00 [facility] ([facility]) emergency provider report report#:[id number] report status: signed date:11/25/21 time:1612 patient: harleen manzano unit #: [id number] room/bed: [address] : 80 age: 40 sex: f pcp phys: no primar y or family physician service dt: 11/25/21 author: michael wu do * all edits or amendments must be made on the el [employer]/computer document * hpi-general illness general confirmed patient yes initial greet date/time 11/25/21 5718 presentation chief complaint __ (foot infection) hx obtained from patient sudden in onset? no onset occurred days ago symptom duration since onset progression since onset gradually worsening context of onset amphetamine use caused by no trauma by history severity: current no pain currently associated with denies: abdominal pain, bleeding, chest pain, co ugh, fever, headache, loss of consciousness, rash, shortness of breath, syncop e, vomiting. 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 review of systems ros statements complete sys rev neg except as marked. review of systems constitutional denies: chills, fatigue, fever, recent wt loss. respiratory denies: cough, non-productive, cough, productive , shortness of breath. gi denies: abdominal pain, nausea, vomiting. musculoskeletal denies: extremity pain, extremity swelling, join t pain, joint swelling. skin denies: rash, swelling. past medical history - adult stated complaint left foot infection, chills, ab d pain allergies coded allergies: sulfa (sulfonamide antibiotics) (mild, hives ) home medications active scripts dme - glucose lancets (glucose lancets) each mis c daily dme - glucose lancets (glucose lancets) each sc sc daily #400 prov: 10/22/21 dme - glucose meter (glucose meter) each misc as dir dme - glucose meter (glucose meter) each misc a sdir #1 prov: 10/22/21 dme - glucose strips (glucose strips) [facility] - glucose strips (glucose strips) each misc daily #400 prov: 10/22/21 amoxicillin (amoxil) 500 mg po q8hr amoxicillin (amoxil) 500 mg po q8hr #33 cap prov: 10/22/21 furosemide (lasix) 40 mg po daily furosemide (lasix) 40 mg po daily #30 tab prov: 10/22/21 insulin glargine (lantus) 20 unit subq bid insulin glargine (lantus) 20 unit subq bid #100 0 ml prov: 10/22/21 insulin lispro (humalog) 6 unit subq ac insulin lispro (humalog) 6 unit subq ac #1000 m l prov: 10/22/21 past medical history: reports: diabetes mellitus. additional medical history anemia additional surgical history right hip smoking status for patients 13 years old or olde r: never smoker physical exam vital signs vital signs first documented: result date time pulse ox 100 11/25 1600 b/p 148/78 11/25 1600 b/p mean 101 11/25 1600 o2 delivery room air 11/25 1600 temp 102.5 11/25 1600 pulse 115 11/25 1600 resp 18 11/25 1600 last documented: result date time pulse ox 100 11/25 1600 b/p 148/78 11/25 1600 b/p mean 101 11/25 1600 o2 delivery room air 11/25 1600 temp 102.5 11/25 1600 pulse 115 11/25 1600 resp 18 11/25 1600 review of vital signs reviewed physical exam general/const general/const awake, alert, not toxic appearing ms head head normocephalic eyes eyes perrl ears/nose/throat ears/nose/throat airway patent, mucous membrane s moist, pharynx nl ms neck neck supple, no meningismus, full range of crystal on, no swelling, non-tender, no masses resp/chest respiratory/chest breath sounds nl, breath soun ds = bilat, no respiratory distress, no rales, no rhonchi, no wheezing cardiovascular cardiovascular heart rate nl, regular r hythm, heart sounds nl, cap refill not delayed, peripheral circulation nl ms upper extrem upper extremity/ms inspection nl, no swelling, non-tender, no erythema, no deformity, neurologic intact, vascular intact, n o clubbing/cyanosis ms wrist/hand wrist/hand inspection nl, no swelling, no erythema, non-tender, no deformity, neurologic intact, vascular intact, no clubbing/ cyanosis ms lower extrem lower ext/pelvis/ms inspection nl, no swelling, non-tender, no erythema, no deformity, neurologic intact, vascular intact, n o edema ms ankle/foot ankle/foot non-tender, no deformity, neurologic intact, vascular intact text/dict notes open wound present to left foot. it is foul-smel ling and with yellow puslike drainage. no crepitus. skin skin color nl, warm, dry, turgor nl neurologic neurologic oriented x3, speech nl, no motor def icits, no sensory deficits interpretation diagnostics lab results interpretation results laboratory tests 11/25/21 1620: [embedded image not available] laboratory tests: 11/25 11/25 11/25 1645 1620 1615 chemistry sodium (134 - 147 mmol/l) 132 l potassium (3.4 - 5.0 mmol/l) 3.0 l chloride (100 - 108 mmol/l) 96 l carbon dioxide (21 - 32 mmol/l) 25 anion gap (4.0 - 15.0 gap calc) 11.0 bun (7 - 18 mg/dl) 6 l creatinine (0.6 - 1.0 mg/dl) 1.3 h glomerular filtr rate (>60 estgfr) 58 l glucose (70 - 110 mg/dl) 211 h lactic acid (0.4 - 2.0 mmol/l) 2.7 h calcium (8.5 - 10.1 mg/dl) 9.1 total bilirubin (0.2 - 1.2 mg/dl) 0.40 direct bilirubin (0.00 - 0.30 mg/dl) 0.10 indirect bilirubin (0.2 - 1.2 mg/dl) 0.30 ast (15 - 37 unit/l) 14 l alt (12 - 78 unit/l) 11 l total alk phosphatase (45 - 117 unit/l) 73 troponin i high sens (0 - 34 ng/l) 4.7 total protein (6.4 - 8.2 g/dl) 8.5 h albumin (3.4 - 5.0 g/dl) 2.8 l hematology wbc (3.5 - 11.0 k/mm3) 12.3 h rbc (4.70 - 6.10 m/mm3) 4.26 l hgb (10.4 - 14.9 g/dl) 10.6 hct (31.5 - 44.1 %) 33.1 mcv (84.5 - 98.6 fl) 77.7 l mch (27.0 - 34.2 pg) 24.9 l mchc (31.5 - 34.0 g/dl) 32.0 rdw (11.5 - 14.5 sd) 13.2 plt count (150 - 450 k/mm3) 425 mpv (7.0 - 10.5 fl) 11.30 h neut % (auto) (40 - 76 %) 78.6 h lymph % (auto) (20.5 - 51.1 %) 15.9 l mono % (auto) (1.7 - 9.3 %) 4.9 eos % (auto) (0.0 - 6.0 %) 0.0 baso % (auto) (0.0 - 2.0 %) 0.2 neut # (auto) (1.8 - 7.6 k/mm3) 9.7 h lymph # (auto) (0.6 - 3.2 k/mm3) 2.0 mono # (auto) (0.3 - 1.1 k/mm3) 0.6 eos # (auto) (0.0 - 0.4 k/mm3) 0.0 baso # (auto) (0.0 - 0.1 k/mm3) 0.0 abs immat gran (auto) (0.00 - 0.03 x10 3/ul) 0 .05 h add manual diff (criteria diff/scn) no immature gran % (0.0 - 5.0 %) 0.4 nucleated rbc % (0.0 - 1.0 /100wbc%) 0.0 serology sars-cov-2 ag (rapid) (negative) negative microbiology: date/time procedure - status source growth 11/25 1620 blood culture - res blood 11/25 1620 blood culture - res blood 11/25 1615 blood culture - res blood gram negative max 11/25 1615 blood culture - res blood recent impressions: radiology - xr foot 3+v lt 11/25 1629 report impression - status: signed entered: 11/25/2021 1646 impression: osteomyelitis with pathological fractures involv ing the fifth metatarsal head and fifth proximal phalanx. subc utaneous emphysema overlying the fifth proximal phalanx may relate to overlying wound or potentially a gas gangrene. impression by: [email or web address] - christine marshall m.d. ecg #1 interpretation text/dict note sinus tachycardia rate 114 left axis no acute st segment or t wave changes no heart blocks date 11/25/21 time 1703 interpreted by and reviewed by me re-evaluation mdm re-evaluation/progress #1 text/dict note no longer febrile or tachycardic. blood pressure remained stable. no additional complaints. time of re-eval 1800 re-eval status improved ed course medication(s) ordered medication(s) ordered: anti-infective agents sig/aubrey start time last medication dose route stop time status admin clindamycin 50 ml x1ed sta 11/25 1649 dc 11/25 phosphate/dextrose iv 11/25 1708 1758 piperacillin sod/ 4.5 gm x1ed sta 11/25 1611 dc 11/25 tazobactam sod iv 11/25 1658 1713 sodium chloride 100 ml vancomycin hcl 1,000 mg x1ed sta 11/25 1611 dc sodium chloride 250 ml iv 11/25 1740 central nervous system agents sig/aubrey start time last medication dose route stop time status admin acetaminophen 1,000 mg x1ed sta 11/25 1610 dc 0 11/25 po 11/25 1611 1724 electrolytic, caloric, and neo sig/aubrey start time last medication dose route stop time status admin potassium chloride 40 meq x1ed sta 11/25 1822 d c po 11/25 1823 sodium chloride 1,000 ml x1ed sta 11/25 1610 dc 11/25 iv 11/25 1710 1759 gastrointestinal drugs sig/aubrey start time last medication dose route stop time status admin ondansetron hcl 4 mg x1ed sta 11/25 1713 dc iv 11/25 1714 1733 consultation consultation referral/consult name jose garland md natural remedy consultant called orthopedic requested call time 1815 requested call date 11/25/21 call returned call returned call returned time 1815 call returned date 11/25/21 natural remedy consultant will see patient patient discharge departure vital signs/condition vital signs first documented: result date time pulse ox 100 11/25 1600 b/p 148/78 11/25 1600 b/p mean 101 11/25 1600 o2 delivery room air 11/25 1600 temp 102.5 11/25 1600 pulse 115 11/25 1600 resp 18 11/25 1600 last documented: result date time pulse ox 100 11/25 1600 b/p 148/78 11/25 1600 b/p mean 101 11/25 1600 o2 delivery room air 11/25 1600 temp 102.5 11/25 1600 pulse 115 11/25 1600 resp 18 11/25 1600 all vital signs available at the time of this en try have been reviewed. clinical impression clinical impression primary impression: osteomyelitis of left foot secondary impressions: severe sepsis disposition decision admit admit physician name yusuf castle md admit physician hospitalist request time 180 request date 11/25/21 )( admission accepts yes )( accepted time 180 )( accepted date 11/25/21 call information will see patient, agrees with eval, agrees with plan discharge/care plan counseled regarding diagnosi s, lab results, imaging studies, need for admission critical care time spent (minutes): 35 services performed patient management by me, maria isabel mcclure spent at bedside, reviewing test results, reviewing imaging, discussing henrietta ent care, documentation in record, time with fam/surrogate separately billable procedures excluded from maria isabel mcclure. electronically signed by michael wu do on at 1041 [facility] #: [id number] end of report 2021-11-22 22:37:00-00:00 [id number] [place] [address] PATIENT NAME: HARLEEN MANZANO ADMIT DATE: 2 ACCOUNT NO: [id number] ROOM NO: AGE: 40 REPORT TYPE: DISCHARGE SUMMARY SEX: F ADMITTING PHYSICIAN: ATTENDING PHYSICIAN:Chuy Vega MD ADMISSION DATE: 10/09/2021 DISCHARGE DATE: 10/22/2021 01:00:00 REASON FOR ADMISSION: Altered mental status. DISCHARGE DIAGNOSES: 1. Acute hypoxic respiratory failure. 2. Sepsis. 3. Acute kidney injury. 4. Acute encephalopathy. 5. Anemia. 6. Bacteremia. 7. Diabetic foot infected wounds. 8. Urinary tract infection. 9. Diabetic ketoacidosis. 10. COVID-19 infection. 11. Hypernatremia. CONSULTANTS: Critical care, Darvin costello MD from endocrinology, Pradip Akhtar MD from infectious disease, Tuyet Mccollum MD from nephrology, neurology service. HOSPITAL COURSE: This is a 40-year-old female wi th history significant for diabetes mellitus, who was found unresponsive wh en she was brought in the ED, she was seem to have DKA. Her CO2 was 9. Her WBC was 20. She was resuscitated, intubated, and central line was pl aced in the ED. She was admitted to ICU. She was put on IV insulin drip. Her A1c was greater than 14. Endocrinology was following for her diabetes. Marge mcclure was also seen to have JAYLEEN, which was followed by nephrology, along with a l ow CO2. She was found to have multiple infections. She was seen to hav e a wound infection in the foot wound, which grew Escherichia coli and Enteroco ccus. She was followed by ID services. She was also seen to have UTI along with bactere bruno. Strep mitis was found on the blood culture. Repeat on 10/10/2021 was nega tive. She was also seemed to have COVID positive. She was subsequently extuba kennedy. Her antibiotic was changed to amoxicillin. She did much better. She was sent to the floor. She was subsequently discharged on 10/22/2021. PHYSICAL EXAMINATION: VITAL SIGNS: Stable. Please see the EMR. GENERAL: No acute distress. NECK: Supple. LUNGS: Clear to auscultation bilaterally. HEART: S1 and S2. Regular rate and rhythm. No mu rmurs, gallops, or rubs. ABDOMEN: Positive bowel sounds. Soft, nontender, and nondistended. PATIENT NAME: HARLEEN MANZANO 2173 EXTREMITIES: No clubbing, cyanosis, or edema. LABORATORY DATA: Reviewed. MEDICATIONS: Please see the EMR. DIET: Diabetic. ACTIVITY: As tolerated. FOLLOWUP: 1. Follow up with endocrinology in about 2 weeks . 2. Follow up with PCP. spent more than 30 min in discharge planning for the patient. Dictated By: Delisa Shepherd MD WT: DS:[email or web address] Conf#: [id number]#: [id number] Authenticated and Edited by Delisa Shepherd MD On 11/23/21 7:15:29 AM at 0717 PATIENT NAME: HARLEEN MANZANO 2173 2021-10-22 19:49:00-00:00 [facility] Infectious Dis. Progress Note REPORT#:[id number] REPORT STATUS: Signed DATE:10/22/21 TIME: 1948 PATIENT: HARLEEN MANZANO UNIT #: [id number] ROOM/BED: [place] [address] : 80 AGE: 40 SEX: F ATTEND: Shoaib Shepherd MD ADM AUTHOR: Pradip Akhtar MD, MD * ALL edits or amendments must be made on the el ectronic/computer document * Subjective Chief complaint: DKA HPI: 40-year-old female with past medical history sig nificant for diabetes who was found unresponsive by her da ughter for unknown period of time. Her glucose 1095 and WBC 20 1K. Patient was resuscitated, intubated and central line was placed in ED. Patient reports: No: complaints. Review of Systems Constitutional: Denies: chills, fatigue. Skin: Denies: abrasion, bruising. Allergy/Immun: Denies: allergic reaction, anaphylaxis. Eyes: Denies: redness, discharge. ENT: Denies: ear drainage, ear ringing. Respiratory: Denies: MCALLISTER (dyspnea on exertion), non productiv e cough. Cardiovascular: Denies: chest pain, MCALLISTER (dyspnea on exertion). Objective General VS/I O: Vital Signs Date Temp Pulse Resp B/P B/P Mean Pulse Ox FiO2 10/21-10/22 97.7-98.4 84-107 12-16 120-130/78-86 92.1-98.8 97-99 Last Documented: Result Date Time Pulse Ox 99 10/22 1522 B/P 129/81 10/22 1522 B/P Mean 97.2 10/22 1522 Temp 98.2 10/22 1522 Pulse 94 10/22 1522 Resp 12 10/22 1134 O2 Delivery Room air 10/22 0854 FiO2 21 10/15 0920 O2 Flow Rate 15.0 07/03 1600 Vital Signs: Date Time Temp Pulse Resp B/P B/P Pulse O2 O2 F low FiO2 Mean Ox Delivery Rate 10/22 1522 98.2 94 129/81 97.2 99 10/22 1134 97.7 107 12 124/86 98.8 97 10/22 0854 98.2 87 15 128/79 95.6 99 Room air 10/22 0504 98.4 90 16 130/79 95.6 97 Room air 10/21 2350 98.2 84 14 120/78 92.1 98 Room air PATIENT WEIGHT: Weight (lb): 378 Weight (oz): 0 Weight (kg): 171.458 Medications: Active Meds + DC'd Last 24 Hrs Sodium Polystyrene Sulfonate (KAYEXELATE) 30 GM ONCE ONE PO (DC) Insulin Human Lispro (HUMALOG) 6 UNIT AC SUBQ (D CD) Potassium Chloride (POTASSIUM CHLORIDE 20MEQ TAB .ER) 20 MEQ ONCE PO (DC) Furosemide (LASIX) 40 MG DAILY PO (DCD) Insulin Glargine (Lantus/Semglee) 20 UNIT BID BLANKENSHIP BQ (DCD) Ondansetron HCl (ZOFRAN) 4 MG Q6H PRN PRN IV (DC D) Amoxicillin (AMOXIL) 500 MG Q8HR PO (DCD) Polyethylene Glycol (MIRALAX) 17 GM DAILY PRN PO (DCD) Senna (SENOKOT 8.6 MG TABLET) 2 TAB DAILY PRN PO (DCD) Insulin Human Lispro (HUMALOG) 0 AC HS SUBQ (DCD ) Acetaminophen (TYLENOL) 650 MG Q6H PRN PRN PO (D CD) Sodium Hypochlorite (DAKIN'S 1/2 STRENGTH 0.25% 480 ML TOP SOLN) 1 APPLIC DAILY TOPICAL (DCD) Labetalol HCl (LABETALOL HCL) 20 MG Q6H PRN PRN IV (DCD) Heparin Sodium (HEPARIN 5000 UNITS/ML) 5,000 UNI T Q8H SUBQ (DCD) Dextrose/Water (DEXTROSE 50% W SYRINGE) 50 ML DIR PRN IV (DCD) Physical Exam General appearance: no acute distress Head/Eyes: atraumatic, normocephalic Neck: non-tender, supple/no meningismus Cardiovascular: normal heart sounds, no murmur Respiratory: clear to auscultation, symmetric ex pansion Abdomen: non-tender, soft Extremities: no clubbing Results Findings/Data: Laboratory Tests 10/22 10/22 10/22 10/22 10/21 1520 1136 0856 0540 2216 Chemistry Sodium (134 - 147 mEq/L) 132 L Potassium (3.4 - 5.0 mEq/L) 5.4 H Chloride (100 - 108 mEq/L) 101 Carbon Dioxide (21 - 33 mEq/l) 20 L Anion Gap (0 - 20) 16 BUN (7 - 18 mg/dL) 12 Creatinine (0.6 - 1.3 mg/dL) 2.1 H Glomerular Filtr Rate (95 - 105) 31.6 L Glucose (70 - 110 mg/dL) 189 H POC Glucose (70 - 110 MG/DL) 302 H 191 H 211 H 153 H Calcium (8.0 - 10.5 mg/dL) 8.5 Phosphorus (2.5 - 4.9 MG/DL) 4.4 Albumin (3.4 - 5.0 g/dL) 2.30 L Results: labs reviewed, turner l signs reviewed, x-ray personally reviewed, current med profile rev'd Treatment Prophylaxis Treatment Prophylaxis CVC/PICC documentation: The data below has been imported from nursing do cumentation. Any exceptions have been noted below under Provider comments. CVC/PICC insertion date/time: No CVC/PICC Provider comments on imported nursing data: [] Diagnosis, Assessment Plan Problem List/A P: 1. DKA (diabetic ketoacidosis) 2. COVID 3. JAYLEEN (acute kidney injury) 4. Severe sepsis 5. Metabolic encephalopathy Free Text A P: Severe DKA, intubated due to AMS COVID positive 10/08, without pnuemonia or hypoxi a Strep mitis on blood 10/08, repeat 10/10 negative L foot wound culture 10/10 E coli and Enterococcus JAYLEEN, resolving AMS improved and extubated 10/14 s/p Ancef, on Amoxil -11/01 will follow Consultants: endocrinology, infectious disease, nephrology Electronically Signed by Pradip Akhtar MD, MD on at 1950 RPT #:[id number] END OF REPORT 2021-10-22 18:32:00-00:00 [facility] ([facility] Podiatry Progress Note REPORT#:[id number] REPORT STATUS: Signed DATE:10/22/21 TIME: 1831 PATIENT: HARLEEN MANZANO UNIT #: [id number] ROOM/BED: [place] [address] : 80 AGE: 40 SEX: F ATTEND: Shoaib Shepherd MD ADM AUTHOR: Kristin Alvarenga DPM * ALL edits or amendments must be made on the el [employer]/computer document * Subjective Chief complaint: left and right foot ulcers Objective General VS: Last Documented: Result Date Time Pulse Ox 99 10/22 1522 B/P 129/81 10/22 1522 B/P Mean 97.2 10/22 1522 Temp 36.8 10/22 1522 Pulse 94 10/22 1522 Resp 12 10/22 1134 O2 Delivery Room air 10/22 0854 FiO2 21 10/15 0920 O2 Flow Rate 15.0 10/11 1600 PATIENT WEIGHT: Weight (lb): 378 Weight (oz): 0 Weight (kg): 171.458 Medications: Active Meds + DC'd Last 24 Hrs Sodium Polystyrene Sulfonate (KAYEXELATE) 30 GM ONCE ONE PO (DC) Insulin Human Lispro (HUMALOG) 6 UNIT AC SUBQ (D CD) Potassium Chloride (POTASSIUM CHLORIDE 20MEQ TAB .ER) 20 MEQ ONCE PO (DC) Furosemide (LASIX) 40 MG DAILY PO (DCD) Insulin Glargine (Lantus/Semglee) 20 UNIT BID BLANKENSHIP BQ (DCD) Ondansetron HCl (ZOFRAN) 4 MG Q6H PRN PRN IV (DC D) Amoxicillin (AMOXIL) 500 MG Q8HR PO (DCD) Polyethylene Glycol (MIRALAX) 17 GM DAILY PRN PO (DCD) Senna (SENOKOT 8.6 MG TABLET) 2 TAB DAILY PRN PO (DCD) Insulin Human Lispro (HUMALOG) 0 AC HS SUBQ (DCD ) Acetaminophen (TYLENOL) 650 MG Q6H PRN PRN PO (D CD) Sodium Hypochlorite (DAKIN'S 1/2 STRENGTH 0.25% 480 ML TOP SOLN) 1 APPLIC DAILY TOPICAL (DCD) Labetalol HCl (LABETALOL HCL) 20 MG Q6H PRN PRN IV (DCD) Heparin Sodium (HEPARIN 5000 UNITS/ML) 5,000 UNI T Q8H SUBQ (DCD) Dextrose/Water (DEXTROSE 50% W SYRINGE) 50 ML DIR PRN IV (DCD) Nutrition assessment: The data set between the solid lines has been im ported from the dietitian's assessment. Any exceptions have been noted under Provider comments. BMI Calculated: 55.8 Nutrition related diagnosis: Morbid obesity Nutrition diagnosis details: BMI 40 or more Nutrition problem: Inadequate energy intake Nutrition etiology: Acute illness Nutrition signs and symptoms: <10% MEAL INTAKE Nutrition prescription: LIBERALIZE DIET TO REGUL AR ENSURE TID Dietitian name: Travis Soriano, DIET Assessment completed: 10/19/21 Provider comments on imported dietitian assessme nt: Physical Exam General appearance: awake Wound/incision: Location: left and right foot Musculoskeletal: Musculoskeletal: decreased ROM Skin: erythema Ulcer: Location: foot Results Findings/Data: Laboratory Tests: 10/22 10/22 10/22 10/22 10/21 1520 1136 0856 0540 2216 Chemistry Sodium (134 - 147 mEq/L) 132 L Potassium (3.4 - 5.0 mEq/L) 5.4 H Chloride (100 - 108 mEq/L) 101 Carbon Dioxide (21 - 33 mEq/l) 20 L Anion Gap (0 - 20) 16 BUN (7 - 18 mg/dL) 12 Creatinine (0.6 - 1.3 mg/dL) 2.1 H Glomerular Filtr Rate (95 - 105) 31.6 L Glucose (70 - 110 mg/dL) 189 H POC Glucose (70 - 110 MG/DL) 302 H 191 H 211 H 153 H Calcium (8.0 - 10.5 mg/dL) 8.5 Phosphorus (2.5 - 4.9 MG/DL) 4.4 Albumin (3.4 - 5.0 g/dL) 2.30 L Results: labs reviewed Diagnosis, Assessment Plan Free Text A P: Ulcerations bilateral feet Type II DM Ulceration left foot may benefit from debridemen t Continue with local wound care for now. Discussed with patient that the x-rays showed so ft tissue swelling, but no evidence of bone infection. Will await improvement before any consideration of operative plans ID on board Will follow Consultants: endocrinology, infectious disease, nephrology Electronically Signed by Kristin Alvarenga DPM on at 1509 RPT #:[id number] END OF REPORT 2021-10-22 16:13:00-00:00 [facility] ([facility]) Nephrology Progress Note REPORT#:[id number] REPORT STATUS: Signed DATE:10/22/21 TIME: 1613 PATIENT: HARLEEN MANZANO UNIT #: [id number] ROOM/BED: [place] [address] : 80 AGE: 40 SEX: F ATTEND: Shoaib Shepherd MD ADM AUTHOR: Timoteo Walker MD * ALL edits or amendments must be made on the wst.cn/computer document * Subjective Comments: Data and notes, reviewed Dw pt and Rn Dw Dr Shepherd awake, nad No chf sxs vss Review of Systems Constitutional: Denies: fever. Respiratory: Denies: MCALLISTER (dyspnea on exer tion), hemoptysis, non productive cough, productive cough (sputum), SOB. Cardiovascular: Denies: chest pain, parox nocturnal dyspnea. GI: Denies: abdominal pain, nausea. Heme: Denies: bleeding. Neuro: Denies: change in LOC, confusion. Objective General VS/I O: Vital Signs: Date Time Temp Pulse Resp B/P B/P Pulse O2 O2 F low FiO2 Mean Ox Delivery Rate 10/22 1522 98.2 94 129/81 97.2 99 10/22 1134 97.7 107 12 124/86 98.8 97 10/22 0854 98.2 87 15 128/79 95.6 99 Room air 10/22 0504 98.4 90 16 130/79 95.6 97 Room air 10/21 2350 98.2 84 14 120/78 92.1 98 Room air 10/21 1902 98.1 83 12 155/84 107.8 99 Room air 10/21 1700 98.6 87 16 127/79 95.1 96 Room air PATIENT WEIGHT: Weight (lb): 378 Weight (oz): 0 Weight (kg): 171.458 Physical Exam General appearance: alert, awake, oriented, no a cute distress, pleasant, conversational, mental status normal, no respira tory distress ENT: moist mucous membranes Cardiovascular: regular rate and rhythm Respiratory: decreased breath sounds, aerating w ell, normal breath sounds, symmetric expansion, no distress Abdomen: soft, obese Genitourinary: no flank pain Extremities: swelling Neuro/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 OPERATOR: alert, oriented X 3 Skin: intact Psychiatry: no hallucinations Results Results: labs reviewed, vital signs reviewed, vi viv signs stable Diagnosis, Assessment Plan Free Text A P: JAYLEEN, nonoliguric stable azotemia CKD 4 Fluid overload +Diuresis/po Hyperkalemia med rx and diet DKA Resolved glycemic rx underway Respiratory failure Improved COVID+ Bacteremia, alpha Strep Left foot wound culture with E.coli and Enteroco ccus JAYLEEN likely 2/2 ATN Plan: Outpt renal clinic in 2 weeks/labs Lowered K+ diet, dw pt Consultants: endocrinology, infectious disease, nephrology Plan discussed with: patient, admitting physicia n, nurse Electronically Signed by Timoteo Walker MD on 10/09 07/31 at 1616 RPT #:[id number] END OF REPORT 2021-10-22 08:40:00-00:00 [facility] Progress Note REPORT#:[id number] REPORT STATUS: Signed DATE:10/22/21 TIME: 0840 PATIENT: HARLEEN MANZANO UNIT #: [id number] ROOM/BED: [place] [address] : 80 AGE: 40 SEX: F ATTEND: Shoaib Shepherd MD ADM AUTHOR: Ema Hernandez PA-C * ALL edits or amendments must be made on the el MD[employer]unction/computer document * Subjective Chief complaint: Pt seen and examined. States feeling much more c onfident today with getting around. Objective General VS: Vital Signs: Date Time Temp Pulse Resp B/P B/P Pulse O2 O2 F low FiO2 Mean Ox Delivery Rate 10/22 0504 98.4 90 16 130/79 95.6 97 Room air 10/21 2350 98.2 84 14 120/78 92.1 98 Room air 10/21 1902 98.1 83 12 155/84 107.8 99 Room air 10/21 1700 98.6 87 16 127/79 95.1 96 Room air 10/21 1123 98.2 92 18 130/76 94.1 97 Room air PATIENT WEIGHT: Weight (lb): 378 Weight (oz): 0 Weight (kg): 171.458 Medications: Active Meds + DC'd Last 24 Hrs Insulin Human Lispro (HUMALOG) 6 UNIT AC SUBQ Potassium Chloride (POTASSIUM CHLORIDE 20MEQ TAB .ER) 20 MEQ ONCE PO (DC) Furosemide (LASIX) 40 MG DAILY PO Insulin Glargine (Lantus/Semglee) 20 UNIT BID BLANKENSHIP BQ Insulin Human Lispro (HUMALOG) 5 UNIT AC SUBQ (D C) Ondansetron HCl (ZOFRAN) 4 MG Q6H PRN PRN IV Amoxicillin (AMOXIL) 500 MG Q8HR PO Polyethylene Glycol (MIRALAX) 17 GM DAILY PRN PO Senna (SENOKOT 8.6 MG TABLET) 2 TAB DAILY PRN PO (CKD) Insulin Human Lispro (HUMALOG) 0 AC HS SUBQ Acetaminophen (TYLENOL) 650 MG Q6H PRN PRN PO Sodium Hypochlorite (DAKIN'S 1/2 STRENGTH 0.25% 480 ML TOP SOLN) 1 APPLIC DAILY TOPICAL Labetalol HCl (LABETALOL HCL) 20 MG Q6H PRN PRN IV Heparin Sodium (HEPARIN 5000 UNITS/ML) 5,000 UNI T Q8H SUBQ Dextrose/Water (DEXTROSE 50% W SYRINGE) 50 ML DIR PRN IV (CKD) Functional Progress Functional progress: FUNCTIONAL TRAINING 1. Medical Record reviewed. 2. Explanation of procedure, desired effects, a nd precautions reviewed with patient and/or caregiver. 3. Patient positioned for comfort, dressed for privacy, footwear utilized. 4. Exposed skin inspected before and after proc edure. 5. Patient checked for lines, tubes, dressing, incisions, and other medical devices for safe mobility and/or positioning. SUPERVISION: 1. One on one supervision with josseline aj provided to ensure proper performance of all activities. Yes Precautions: Fall SAFETY CONSIDERATIONS COVID Safety addressed through use of: Gait Belt Extra Personnel Verbal Cues Weightbearing Restrictions: No Restriction ACTIVITIES PERFORMED: Bed Mobility - Rolling: Modified [place] Bed Mobility - Supine to Sit: Modified Independ ence Bed Mobility - Sit to Supine: Modified Independ ence Scooting: Modified [place] Pivot Transfer: Modified [place] Trunk control: Modified [place] Sit to Stand: Modified [place] Static Sitting: Modified [place] Dynamic Sitting: Modified [place] Static Standing: Modified [place] Dynamic Standing: Modified [place] Functional Ambulation: Supervision or Set-up Distance in Feet: 15 Functional Exercises: BED MOBILITY SITTING EOB SIT TO STANDS GAIT STEP TAPS ATTEMPTED STEP UPS Durable Medical Equipment Currently Utilized: Hospital Bed Walker, Rolling Effects of Treatment: [place] of care decreased Post [place] Precautions: IN BED CALL BUTTON WITHIN REACH NURSING NOTIFIED Functional Mob.Cmt: PT AGREEABLE TO P.TLAVERNE Griffin SESSION, CASE MANAGMENT STATED PT INPATIENT REHAB IS DENIED, HOWEVER THE CONCERN IS STAIRS. PT TX SUPINE TO SIT INDEPENDENTLY R SIDE OF BED, STATES SHE CANNOT PERFORM TASK OT L SIDE OF BED. SIT TO SUPINE P T STANDS UP, TURNS 180, AND CRAWLS IN BED. STATED SHE CANNOT PERFOM TASK ANY OTHER WAY. PT WALKED AROUND BED, LIFTED WALKER OVER HEAD TO AMBULATE TO L SIDE OF BED. COMPLETED 5 X STEP TAPS ON 6" STEP TO PREPARE FOR STAIR TRAINING. 2X ATTEMTPED YAYO P UPS ON STAIR TO PREPARE FOR D/C HOME TO HOUSE WITH STAIRS, PT UNABLE TO LIFT UP ONTO STEP, USING R W FOR SUPPORT. UPON FURTHER DISCUSSION PT STATES HER BEDROOM AND FULL BATH IS UPSTAIRS, HOWEVER THER E IS A HALF BATH AND BED TO STAY DOWN STAIRS. PT PRESENTS WITH SAFETY DEFICITS AND IS UNABLE AT THIS TIME TO ACCESS UPSTAIRS TO TAKE A SHOWER. PT STATES HER SISTER IS COMING INTO TOWN NEXT MARÍA Suggs TO ASSIST NEEDED. P.T. CONTINUES TO RECOMMEND INPATIENT REHAB. WILL CONTINUE GAIT TRAINING, STAIR TRAINING, SAFETY EDUCATION WHILE IN HOSPITAL. NURSE NOTIFIEID. ATTEMPTED TO FIND [facility] HOWEVER PER NURSE, ORANGE GROWER IS GONE FOR THE DAY. PT charges: FT/Therap. Activity 69496 If this is the patient's last treatment, this e ntry serves as the discharge summary: Y Start time: 1515 Stop time: 154 Treatment Time : ( minutes) 0:30 Completed by: Rosanna Thomas . Physical Therapy: Plan of Care Short Term Goals TARGET DATE GOAL MET End Polisher Goals TARGET DATE GOAL MET . PRIOR TO TREATMENT: 1. Medical Record reviewed. 2. Explanation of procedure, desired effects, a nd precautions reviewed with patient and/or caregiver. 3. Patient positioned for comfort and privacy. 4. Exposed skin inspected before and after proc edure. 5. Patient checked for lines, tubes, dressing, incisions, and other medical devices for safe mobility and/or positioning. 6. Patient verbalizes awareness and willingness to participate as applicable. SUPERVISION: 1. One on one supervision with cueing and edmond tance provided to ensure proper performance of all activities: Yes ACTIVITIES PERFORMED: Bathing Training: No Grooming and Hygiene: Yes Toileting: Yes Feeding: No Upper Extremity Dressing: No Lower Extremity Dressing: No Precautions: Fall Airborne Contact Droplet Requires verbal cues to direct task: No Positions Used: Standing no Assist Sitting on edge of bed FUNCTIONAL BALANCE DURING ACTIVITY: Good TREATMENT OUTCOMES: Goals Achieved: Yes Progress demonstrated toward desired goals: Yes Decreased level of assistance needed: Yes Patient unable to tolerate intervention: No Activity tolerance: 10-20 minutes Durable Medical Equipment Recomended: RW Comments: completed bed mobility Mod I, t/f into bathroom w/ use of RW Mod I sit<>stand from toilet/toileting Mod I hygiene/grooming sinkside w/ occasional externalsupport Mod I patient progressing well towards meeting goals no complaints of pain before, during, after session Document OT charges: SELF/HOME MGT/ADL [id number] Document Pain/Education: No Review OT Plan of Care: Yes If this is the patient's last treatment, this e ntry serves as the discharge summary: Y Start Time: 1023 Stop Time: 1035 Treatment time ( minutes): 0:12 Completed by: Sin Bess - GROOMING/HYGIENE: Washing hands/face: Modified [place] Oral Hygiene: Modified [place] Combing/brushing hair: Not Tested Applying/removing make-up: Not Tested Shaving face: Not Applicable ----- Toileting: Modified [place] Safety awareness demonstrated during completion of task: Yes Requires set up of supplies: No ----- ----- ----- ----- . 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 . Physical Exam General appearance: alert, awake HEENT: anicteric, mucosal membranes moist, scler a clear Neck: supple, no JVD Cardiovascular: regular rate rhythm, S1/S2 Respiratory: aerating well, clear bilaterally Abdomen: obese, bowel sounds present, non-disten ded, soft, non-tender Skin: dry, intact, no rash Musculoskeletal - general: Musculoskeletal - general: joints normal, range of motion normal, strength testing normal Neuro/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 OPERATOR: alert, oriented X 3, no motor deficit s, no sensory deficits Results Findings/Data: Laboratory Tests: 10/22 10/21 10/21 10/21 0540 2216 1658 1122 Chemistry Sodium (134 - 147 mEq/L) 132 L Potassium (3.4 - 5.0 mEq/L) 5.4 H Chloride (100 - 108 mEq/L) 101 Carbon Dioxide (21 - 33 mEq/l) 20 L Anion Gap (0 - 20) 16 BUN (7 - 18 mg/dL) 12 Creatinine (0.6 - 1.3 mg/dL) 2.1 H Glomerular Filtr Rate (95 - 105) 31.6 L Glucose (70 - 110 mg/dL) 189 H POC Glucose (70 - 110 MG/DL) 153 H 172 H 173 H Calcium (8.0 - 10.5 mg/dL) 8.5 Phosphorus (2.5 - 4.9 MG/DL) 4.4 Albumin (3.4 - 5.0 g/dL) 2.30 L Diagnosis, Assessment Plan Free Text A P: Pt is actually doing pretty well from a mobility standpoint. No needs for OT. Ok to DC home with once medically cleared. Discu ssed with her and she agrees. Her aunt lives near by and sister is flying in t o assist her next week. Discussed importance of medical complinace. Thank you for allowing us to particpate in the c are of the patient. 10/22:Pt seen and examined. She has been up and walking with the RW. She states more confident today with mobility. Discussed wi th CM. HH arranged. Consultants: endocrinology, infectious disease, nephrology Rehab attestation: Face to face exam completed. Treatment plan disc ussed with patient. Meets continued stay criteria. Agree with interdiscipl inary treatment plan. Electronically Signed by Ema Hernandez PA-C on at 1823 [facility] #:[id number] END OF REPORT 2021-10-21 20:05:00-00:00 [facility] Hospitalist Progress Note REPORT#:[id number] REPORT STATUS: Signed DATE:10/21/21 TIME: 2004 PATIENT: HARLEEN MANZANO UNIT #: [id number] ROOM/BED: [place] [address] : 80 AGE: 40 SEX: F ATTEND: Laura Trinh ADM AUTHOR: Delisa Shepherd MD * ALL edits or amendments must be made on the [email or web address]/computer document * Subjective Chief complaint: Patient too high functioning [facility] Patient got denied. Patient working with PT/OT. No acute complaints. Objective General VS/I O: Vital Signs: Date Time Temp Pulse Resp B/P B/P Pulse O2 O2 Flow FiO2 Mean Ox Delivery Rate 10/21 1902 98.1 83 12 155/84 107.8 99 Room air 10/21 1700 98.6 87 16 127/79 95.1 96 Room air 10/21 1123 98.2 92 18 130/76 94.1 97 Room air 10/21 0740 98.1 93 18 138/82 100.9 95 Room air 10/21 0335 98.2 88 17 131/80 96.7 96 Room air 10/20 2338 98.2 96 17 147/82 103.4 96 Room air PATIENT WEIGHT: Weight (lb): 378 Weight (oz): 0 Weight (kg): 171.458 Medications: Active Meds + DC'd Last 24 Hrs Insulin Human Lispro (HUMALOG) 6 UNIT AC SUBQ Potassium Chloride (POTASSIUM CHLORIDE 20MEQ TAB .ER) 20 MEQ ONCE PO (CKD ) Furosemide (LASIX) 40 MG DAILY PO Insulin Glargine (Lantus/Semglee) 20 UNIT BID BLANKENSHIP BQ Insulin Human Lispro (HUMALOG) 5 UNIT AC SUBQ ( DC) Ondansetron HCl (ZOFRAN) 4 MG Q6H PRN PRN IV Amoxicillin (AMOXIL) 500 MG Q8HR PO Polyethylene Glycol (MIRALAX) 17 GM DAILY PRN PO Senna (SENOKOT 8.6 MG TABLET) 2 TAB DAILY PRN PO (CKD) Insulin Human Lispro (HUMALOG) 0 AC HS SUBQ Acetaminophen (TYLENOL) 650 MG Q6H PRN PRN PO Sodium Hypochlorite (DAKIN'S 1/2 STRENGTH 0.25% 480 ML TOP SOLN) 1 APPLIC DAILY TOPICAL Labetalol HCl (LABETALOL HCL) 20 MG Q6H PRN PRN IV Heparin Sodium (HEPARIN 5000 UNITS/ML) 5,000 UNI T Q8H SUBQ Dextrose/Water (DEXTROSE 50% W SYRINGE) 50 ML DIR PRN IV (CKD) Nutrition assessment: The data set between the solid lines has been im ported from the dietitian's assessment. Any exceptions have been noted under Provider comments. BMI Calculated: 55.8 Nutrition related diagnosis: Morbid obesity Nutrition diagnosis details: BMI 40 or more Nutrition problem: Inadequate energy intake Nutrition etiology: Acute illness Nutrition signs and symptoms: <10% MEAL INTAKE Nutrition prescription: LIBERALIZE DIET TO REGUL AR ENSURE TID Dietitian name: Travis Soriano, DIET Assessment completed: 10/19/21 Provider comments on imported dietitian assessme nt: Physical Exam General appearance: no acute distress Head/Eyes: normocephalic ENT: moist mucosal membranes Neck: no JVD Cardiovascular: normal heart sounds, regular rat e rhythm Respiratory: aerating well, clear to auscultatio n, symmetric expansion Abdomen: non-tender, normal bowel sounds, soft, no distention Extremities: b/l feet wound Neuro/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 OPERATOR: alert, oriented X 3, CNII-XII intact, normal speech Skin: dry Psychiatry: normal mood Results Findings/Data: Laboratory Tests 10/21 10/21 10/21 10/21 10/20 1658 1122 0737 0530 2332 Chemistry Sodium (134 - 147 mEq/L) 138 Potassium (3.4 - 5.0 mEq/L) 3.3 L Chloride (100 - 108 mEq/L) 99 L Carbon Dioxide (21 - 33 mEq/l) 28 Anion Gap (0 - 20) 14 BUN (7 - 18 mg/dL) 19 H Creatinine (0.6 - 1.3 mg/dL) 2.3 H Glomerular Filtr Rate (95 - 105) 28.4 L Glucose (70 - 110 mg/dL) 229 H POC Glucose (70 - 110 MG/DL) 172 H 173 H 240 H 286 H Calcium (8.0 - 10.5 mg/dL) 8.9 Phosphorus (2.5 - 4.9 MG/DL) 4.3 Albumin (3.4 - 5.0 g/dL) 2.90 L Laboratory Tests 10/21 0530 Hematology WBC (4.5 - 11.0 x10 3/uL) 12.9 H RBC (3.54 - 5.02 x10 6/uL) 3.68 Hgb (11.0 - 15.0 g/dL) 9.2 L Hct (33.0 - 45.0 %) 31.1 L MCV (81.0 - 99.0 fL) 84.5 MCH (27.0 - 33.0 pg) 25.0 L MCHC (33.0 - 37.0 g/dL) 29.6 L RDW (11.5 - 14.5 %) 14.2 Plt Count (150 - 400 x10 3/uL) 350 MPV (7.0 - 9.0 fL) 12.4 H Neut % (Auto) (56.0 - 77.0 %) 51.0 L Lymph % (Auto) (14.0 - 32.0 %) 38.8 H [place] % (Auto) (4.8 - 9.0 %) 9.0 Eos % (Auto) (0.3 - 3.7 %) 0.2 L Baso % (Auto) (0.0 - 2.0 %) 0.7 Neut # (Auto) (2.0 - 7.6 x10 3/uL) 6.58 Lymph # (Auto) (1.0 - 3.8 x10 3/uL) 5.00 H [place] # (Auto) (0.1 - 0.8 x10 3/uL) 1.16 H Eos # (Auto) (0.0 - 0.2 x10 3/uL) 0.02 Baso # (Auto) (0.0 - 0.2 x10 3/uL) 0.09 Abs Immat Gran (auto) (0.00 - 0.03 x10 3/uL) 0. 04 H Add Manual Diff NO Immature Gran % (0.0 - 2.0 %) 0.3 Nucleated RBC % (0 - 0 %) 0.0 Nucleated RBCs # (Man) (0.0 - 0.1 x10 3/uL) 0.0 0 Diagnosis, Assessment Plan Consultants: endocrinology, infectious disease, nephrology Free Text DxA P Notes Free text DxA P notes: Assessment and plans: Acute respiratory failure: Intubated for airway protection, sedated ICC on board S/p extubation on 10/14 Now saturating well on room air Sepsis: Blood culture strep species on 10/08, repeat blo od culture from 10/10 negative, urine culture growing yeast, wound cultu re growing diphtheroids, coag negative staph, E. coli, Enterococcus species s/p ancef; on amoxicillin till 11/01 -ID and podiatry seen On fluconazole for yeast in urine (10/23) Leukocytosis-improving JAYLEEN: creat stable; on lasix Acute encephalopathy: -due to above causes -treat underlying causes CT head ordered unremarkable 10/11 EEG showing moderate encephalopathy 10/12 Resolved Anemia: No active bleeding noted Monitor H H every 6 hours for 24 hours 10/12 blood transfusion if hemoglobin drops below 7 H H stable Bacteremia Management same as above b/l Foot infected wound Management same as above UTI Management same as above DKA: A1c more than 14 Insulin drip switched to blankenship bcu insulin, Glargine 25 unit bid, lispro 2 unit AC , ISS, hypoglycemia protocol Endocrine managing Constipation: Bowel regimen COVID 19 infection: Patient did not have respiratory distress on ad mission, intubated for airway protection COVID PCR positive Hyponatremia from osmotic hyperglycemia: Corrected sodium is elevated in hyperna tremic range due to severe dehydration Monitor lab hypokalemia-replete and monitor -heparin for DVT prophylaxis Diabetic diet Famotidine for GI prophylaxis Morning labs Disposition: On IV antibiotic. On IV Lasix. [place] l function slowly improving. Awaiting PT/OT eval. check labs in am Possible home with home health tomorrow Quality: Gen Med Crit Care VTE Prophylaxis VTE prophylaxis initiated: yes Current Medications Current medication review: I attest that the foregoing medication list in t medical record is true, accurate, and complete to the best of my knowled ge. Electronically Signed by Delisa Shepherd MD on 0 10/21/21 at 2007 RPT #:[id number] END OF REPORT 2021-10-21 19:47:00-00:00 [facility] Podiatry Progress Note REPORT#:[id number] REPORT STATUS: Signed DATE:10/21/21 TIME: 1946 PATIENT: HARLEEN MANZANO UNIT #: [id number] ROOM/BED: [place] [address] : 80 AGE: 40 SEX: F ATTEND: Shoaib Shepherd MD ADM AUTHOR: Kristin Alvarenga DPM * ALL edits or amendments must be made on the [email or web address].cn/computer document * Subjective Chief complaint: left and right foot ulcers Objective Physical Exam Wound/incision: Location: left and right foot Musculoskeletal: Musculoskeletal: decreased ROM Skin: erythema Ulcer: Location: foot Results Findings/Data: Laboratory Tests: 10/21 10/21 10/21 10/21 10/20 1658 1122 0737 0530 2332 Chemistry Sodium (134 - 147 mEq/L) 138 Potassium (3.4 - 5.0 mEq/L) 3.3 L Chloride (100 - 108 mEq/L) 99 L Carbon Dioxide (21 - 33 mEq/l) 28 Anion Gap (0 - 20) 14 BUN (7 - 18 mg/dL) 19 H Creatinine (0.6 - 1.3 mg/dL) 2.3 H Glomerular Filtr Rate (95 - 105) 28.4 L Glucose (70 - 110 mg/dL) 229 H POC Glucose (70 - 110 MG/DL) 172 H 173 H 240 H 286 H Calcium (8.0 - 10.5 mg/dL) 8.9 Phosphorus (2.5 - 4.9 MG/DL) 4.3 Albumin (3.4 - 5.0 g/dL) 2.90 L Hematology WBC (4.5 - 11.0 x10 3/uL) 12.9 H RBC (3.54 - 5.02 x10 6/uL) 3.68 Hgb (11.0 - 15.0 g/dL) 9.2 L Hct (33.0 - 45.0 %) 31.1 L MCV (81.0 - 99.0 fL) 84.5 MCH (27.0 - 33.0 pg) 25.0 L MCHC (33.0 - 37.0 g/dL) 29.6 L RDW (11.5 - 14.5 %) 14.2 Plt Count (150 - 400 x10 3/uL) 350 MPV (7.0 - 9.0 fL) 12.4 H Neut % (Auto) (56.0 - 77.0 %) 51.0 L Lymph % (Auto) (14.0 - 32.0 %) 38.8 H [place] % (Auto) (4.8 - 9.0 %) 9.0 Eos % (Auto) (0.3 - 3.7 %) 0.2 L Baso % (Auto) (0.0 - 2.0 %) 0.7 Neut # (Auto) (2.0 - 7.6 x10 3/uL) 6.58 Lymph # (Auto) (1.0 - 3.8 x10 3/uL) 5.00 H [place] # (Auto) (0.1 - 0.8 x10 3/uL) 1.16 H Eos # (Auto) (0.0 - 0.2 x10 3/uL) 0.02 Baso # (Auto) (0.0 - 0.2 x10 3/uL) 0.09 Abs Immat Gran (auto) (0.00 - 0.03 0.04 H x10 3/uL) Add Manual Diff NO Immature Gran % (0.0 - 2.0 %) 0.3 Nucleated RBC % (0 - 0 %) 0.0 Nucleated RBCs # (Man) (0.0 - 0.1 0.00 x10 3/uL) Results: labs reviewed Diagnosis, Assessment Plan Free Text A P: Ulcerations bilateral feet Type II DM Ulceration left foot may benefit from debridemen t Continue with local wound care for now. Discussed with patient that the x-rays showed so ft tissue swelling, but no evidence of bone infection. Will await improvement before any consideration of operative plans ID on board Will follow Consultants: endocrinology, infectious disease, nephrology Electronically Signed by Kristin Alvarenga DPM on at 1509 RPT #:[id number] END OF REPORT 2021-10-21 15:37:00-00:00 [facility] ([facility]) Infectious Dis. Progress Note REPORT#:[id number] REPORT STATUS: Signed DATE:10/21/21 TIME: 1537 PATIENT: HARLEEN MANZANO UNIT #: [id number] ROOM/BED: [place] [address] : 80 AGE: 40 SEX: F ATTEND: Laura Trinh ADM AUTHOR: Pradip Akhtar MD, MD * ALL edits or amendments must be made on the [email or web address]/computer document * Subjective Chief complaint: DKA HPI: 40-year-old female with past medical history sig nificant for diabetes who was found unresponsive by her da ughter for unknown period of time. Her glucose 1095 and WBC 20 1K. Patient was resuscitated, intubated and central line was placed in ED. Patient reports: No: complaints. Review of Systems Constitutional: Denies: chills, fatigue. Skin: Denies: abrasion, bruising. Allergy/Immun: Denies: allergic reaction, anaphylaxis. Eyes: Denies: redness, discharge. ENT: Denies: ear drainage, ear ringing. Respiratory: Denies: MCALLISTER (dyspnea on exertion), hemoptysis. Cardiovascular: Denies: chest pain, MCALLISTER (dyspnea on exertion). Objective General VS/I O: Vital Signs Date Temp Pulse Resp B/P B/P Mean Pulse Ox FiO2 10/20-10/21 98.1-98.2 88-101 17-18 106-149/64-85 77.7-106.3 95-99 Last Documented: Result Date Time Pulse Ox 97 10/21 1123 B/P 130/76 10/21 1123 B/P Mean 94.1 10/21 1123 O2 Delivery Room air 10/21 1123 Temp 98.2 10/21 1123 Pulse 92 10/21 1123 Resp 18 10/21 1123 FiO2 21 10/15 0920 O2 Flow Rate 15.0 10/11 1600 Vital Signs: Date Time Temp Pulse Resp B/P B/P Pulse O2 O2 F low FiO2 Mean Ox Delivery Rate 10/21 1123 98.2 92 18 130/76 94.1 97 Room air 10/21 0740 98.1 93 18 138/82 100.9 95 Room air 10/21 0335 98.2 88 17 131/80 96.7 96 Room air 10/20 2338 98.2 96 17 147/82 103.4 96 Room air 10/20 1930 98.1 101 17 106/64 77.7 96 Room air 10/20 1703 101 18 149/85 106.3 99 Room air PATIENT WEIGHT: Weight (lb): 378 Weight (oz): 0 Weight (kg): 171.458 Medications: Active Meds + DC'd Last 24 Hrs Insulin Human Lispro (HUMALOG) 6 UNIT AC SUBQ Potassium Chloride (POTASSIUM CHLORIDE 20MEQ TAB .ER) 20 MEQ ONCE PO (CKD ) Furosemide (LASIX) 40 MG DAILY PO Insulin Glargine (Lantus/Semglee) 20 UNIT BID BLANKENSHIP BQ Insulin Human Lispro (HUMALOG) 5 UNIT AC SUBQ (D C) Ondansetron HCl (ZOFRAN) 4 MG Q6H PRN PRN IV Amoxicillin (AMOXIL) 500 MG Q8HR PO Polyethylene Glycol (MIRALAX) 17 GM DAILY PRN PO Senna (SENOKOT 8.6 MG TABLET) 2 TAB DAILY PRN PO (CKD) Insulin Human Lispro (HUMALOG) 0 AC HS SUBQ Acetaminophen (TYLENOL) 650 MG Q6H PRN PRN PO Sodium Hypochlorite (DAKIN'S 1/2 STRENGTH 0.25% 480 ML TOP SOLN) 1 APPLIC DAILY TOPICAL Labetalol HCl (LABETALOL HCL) 20 MG Q6H PRN PRN IV Heparin Sodium (HEPARIN 5000 UNITS/ML) 5,000 UNI T Q8H SUBQ Dextrose/Water (DEXTROSE 50% W SYRINGE) 50 ML DIR PRN IV (CKD) Physical Exam General appearance: no acute distress Head/Eyes: atraumatic, normocephalic Neck: non-tender, supple/no meningismus Cardiovascular: normal heart sounds, no murmur Respiratory: clear to auscultation, symmetric ex pansion Abdomen: non-tender, soft Extremities: no clubbing Results Findings/Data: Laboratory Tests 10/21 10/21 10/21 10/20 10/20 1122 0737 0530 2332 1701 Chemistry Sodium (134 - 147 mEq/L) 138 Potassium (3.4 - 5.0 mEq/L) 3.3 L Chloride (100 - 108 mEq/L) 99 L Carbon Dioxide (21 - 33 mEq/l) 28 Anion Gap (0 - 20) 14 BUN (7 - 18 mg/dL) 19 H Creatinine (0.6 - 1.3 mg/dL) 2.3 H Glomerular Filtr Rate (95 - 105) 28.4 L Glucose (70 - 110 mg/dL) 229 H POC Glucose (70 - 110 MG/DL) 173 H 240 H 286 H 308 H Calcium (8.0 - 10.5 mg/dL) 8.9 Phosphorus (2.5 - 4.9 MG/DL) 4.3 Albumin (3.4 - 5.0 g/dL) 2.90 L Laboratory Tests 10/21 0530 Hematology WBC (4.5 - 11.0 x10 3/uL) 12.9 H RBC (3.54 - 5.02 x10 6/uL) 3.68 Hgb (11.0 - 15.0 g/dL) 9.2 L Hct (33.0 - 45.0 %) 31.1 L MCV (81.0 - 99.0 fL) 84.5 MCH (27.0 - 33.0 pg) 25.0 L MCHC (33.0 - 37.0 g/dL) 29.6 L RDW (11.5 - 14.5 %) 14.2 Plt Count (150 - 400 x10 3/uL) 350 MPV (7.0 - 9.0 fL) 12.4 H Neut % (Auto) (56.0 - 77.0 %) 51.0 L Lymph % (Auto) (14.0 - 32.0 %) 38.8 H [place] % (Auto) (4.8 - 9.0 %) 9.0 Eos % (Auto) (0.3 - 3.7 %) 0.2 L Baso % (Auto) (0.0 - 2.0 %) 0.7 Neut # (Auto) (2.0 - 7.6 x10 3/uL) 6.58 Lymph # (Auto) (1.0 - 3.8 x10 3/uL) 5.00 H [place] # (Auto) (0.1 - 0.8 x10 3/uL) 1.16 H Eos # (Auto) (0.0 - 0.2 x10 3/uL) 0.02 Baso # (Auto) (0.0 - 0.2 x10 3/uL) 0.09 Abs Immat Gran (auto) (0.00 - 0.03 x10 3/uL) 0. 04 H Add Manual Diff NO Immature Gran % (0.0 - 2.0 %) 0.3 Nucleated RBC % (0 - 0 %) 0.0 Nucleated RBCs # (Man) (0.0 - 0.1 x10 3/uL) 0.0 0 Results: labs reviewed, turner l signs reviewed, x-ray personally reviewed, current med profile rev'd Treatment Prophylaxis Treatment Prophylaxis CVC/PICC documentation: The data below has been imported from nursing do cumentation. Any exceptions have been noted below under Provider comments. CVC/PICC insertion date/time: No CVC/PICC Provider comments on imported nursing data: [] Diagnosis, Assessment Plan Problem List/A P: 1. DKA (diabetic ketoacidosis) 2. COVID 3. JAYLEEN (acute kidney injury) 4. Severe sepsis 5. Metabolic encephalopathy Free Text A P: Severe DKA, intubated due to AMS COVID positive 10/08, without pnuemonia or hypoxi a Strep mitis on blood 10/08, repeat 10/10 negative L foot wound culture 10/10 E coli and Enterococcus JAYLEEN, resolving AMS improved and extubated 10/14 s/p Ancef, on Amoxil -11/01 will follow Consultants: endocrinology, infectious disease, nephrology Electronically Signed by Pradip Akhtar MD, MD on at 1539 [facility] #:[id number] END OF REPORT 2021-10-21 15:31:00-00:00 [facility] ([facility]) Nephrology Progress Note REPORT#:[id number] REPORT STATUS: Signed DATE:10/21/21 TIME: 1531 PATIENT: HARLEEN MANZANO UNIT #: [id number] ROOM/BED: [place] [address] : 80 AGE: 40 SEX: F ATTEND: Laura Trinh ADM AUTHOR: Timoteo Walker MD * ALL edits or amendments must be made on the wst.cn/[employer] document * Subjective Comments: Data and notes, reviewed Dw Rn Vic Review of Systems Constitutional: Denies: fever. Respiratory: Denies: non productive cough, productive cough ( sputum). Cardiovascular: Denies: chest pain. GI: Denies: abdominal pain, nausea. Heme: Denies: bleeding. Neuro: Denies: change in LOC, confusion. Objective General VS/I O: Vital Signs: Date Time Temp Pulse Resp B/P B/P Pulse O2 O2 F low FiO2 Mean Ox Delivery Rate 10/21 1123 98.2 92 18 130/76 94.1 97 Room air 10/21 0740 98.1 93 18 138/82 100.9 95 Room air 10/21 0335 98.2 88 17 131/80 96.7 96 Room air 10/20 2338 98.2 96 17 147/82 103.4 96 Room air 10/20 1930 98.1 101 17 106/64 77.7 96 Room air 10/20 1703 101 18 149/85 106.3 99 Room air PATIENT WEIGHT: Weight (lb): 378 Weight (oz): 0 Weight (kg): 171.458 Physical Exam General appearance: alert, awake, no acute distr ess, no respiratory distress ENT: moist mucous membranes Cardiovascular: regular rate and rhythm Respiratory: decreased breath sounds Abdomen: soft, obese Genitourinary: urinary catheter Extremities: swelling Neuro/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 OPERATOR: alert, oriented X 3 Psychiatry: no hallucinations Results Results: labs reviewed, vital signs reviewed, vi viv signs stable Diagnosis, Assessment Plan Free Text A P: JAYLEEN, nonoliguric stable azotemia/imporved CKD 4 Fluid overload +Diuresis Hypokalemia Replete, prn DKA Resolved glycemic rx underway Respiratory failure Improved COVID+ Bacteremia, alpha Strep Left foot wound culture with E.coli and Enteroco ccus JAYLEEN likely 2/2 ATN Plan: Replete K+, po Changed to po Lasix, daily Strict I/Os No indication for dialysis at this time Consultants: endocrinology, infectious disease, nephrology Plan discussed with: nurse Electronically Signed by Timoteo Walker MD on 10/09 06/30 at 1532 RPT #:[id number] END OF REPORT 2021-10-21 13:30:00-00:00 [facility] Endocrinology Progress Note REPORT#:[id number] REPORT STATUS: Signed DATE:10/21/21 TIME: 1330 PATIENT: HARLEEN MANZANO UNIT #: [id number] ROOM/BED: [place] [address] : 80 AGE: 40 SEX: F ATTEND: Shoaib Shepherd MD ADM AUTHOR: Gino Hernandez * ALL edits or amendments must be made on the [email or web address]/[employer] document * Subjective Chief complaint: f/u DM I tolerating diet Objective General VS: Last Documented: Result Date Time Pulse Ox 97 10/21 1123 B/P 130/76 10/21 1123 B/P Mean 94.1 10/21 1123 O2 Delivery Room air 10/21 1123 Temp 98.2 10/21 1123 Pulse 92 10/21 1123 Resp 18 10/21 1123 FiO2 21 10/15 0920 O2 Flow Rate 15.0 10/11 1600 PATIENT WEIGHT: Weight (lb): 378 Weight (oz): 0 Weight (kg): 171.458 Medications: Active Meds + DC'd Last 24 Hrs Insulin Human Lispro (HUMALOG) 6 UNIT AC SUBQ (U NV) Potassium Chloride (POTASSIUM CHLORIDE 20MEQ TAB .ER) 20 MEQ ONCE PO (CKD ) Furosemide (LASIX) 40 MG DAILY PO Insulin Glargine (Lantus/Semglee) 20 UNIT BID BLANKENSHIP BQ Insulin Human Lispro (HUMALOG) 5 UNIT AC SUBQ (D Cr) Ondansetron HCl (ZOFRAN) 4 MG Q6H PRN PRN IV Amoxicillin (AMOXIL) 500 MG Q8HR PO Insulin Glargine (Lantus/Semglee) 20 UNIT DAILY SUBQ (DC) Polyethylene Glycol (MIRALAX) 17 GM DAILY PRN PO Senna (SENOKOT 8.6 MG TABLET) 2 TAB DAILY PRN PO (CKD) Insulin Human Lispro (HUMALOG) 0 AC HS SUBQ Acetaminophen (TYLENOL) 650 MG Q6H PRN PRN PO Furosemide (LASIX 20MG INJ) 20 MG BID 9A 5P IV ( DC) Sodium Hypochlorite (DAKIN'S 1/2 STRENGTH 0.25% 480 ML TOP SOLN) 1 APPLIC DAILY TOPICAL Fluconazole/Sodium Chloride (FLUCONAZOLE 200MG/N S 100ML) 100 ML DAILY IV (DC) Labetalol HCl (LABETALOL HCL) 20 MG Q6H PRN PRN IV Heparin Sodium (HEPARIN 5000 UNITS/ML) 5,000 UNI T Q8H SUBQ Dextrose/Water (DEXTROSE 50% W SYRINGE) 50 ML DIR PRN IV (CKD) Nutrition assessment: The data set between the solid lines has been im ported from the dietitian's assessment. Any exceptions have been noted under Provider comments. BMI Calculated: 55.8 Nutrition related diagnosis: Morbid obesity Nutrition diagnosis details: BMI 40 or more Nutrition problem: Inadequate energy intake Nutrition etiology: Acute illness Nutrition signs and symptoms: <10% MEAL INTAKE Nutrition prescription: LIBERALIZE DIET TO REGUL AR ENSURE TID Dietitian name: Travis Soriano, DIET Assessment completed: 10/19/21 Provider comments on imported dietitian assessme nt: Physical Exam General appearance: alert, awake, oriented HEENT: normocephalic Neck: supple Cardiovascular: regular rate rhythm Respiratory: no distress Abdomen: soft Genitourinary: not indicated Extremities: warm Musculoskeletal: normal inspection Neuro/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 OPERATOR: alert, oriented X 3, normal speech Skin: dry, intact, warm Findings/data: Laboratory Tests: 10/21 10/21 10/21 10/20 10/20 1122 0737 0530 2332 1701 Chemistry Sodium (134 - 147 mEq/L) 138 Potassium (3.4 - 5.0 mEq/L) 3.3 L Chloride (100 - 108 mEq/L) 99 L Carbon Dioxide (21 - 33 mEq/l) 28 Anion Gap (0 - 20) 14 BUN (7 - 18 mg/dL) 19 H Creatinine (0.6 - 1.3 mg/dL) 2.3 H Glomerular Filtr Rate (95 - 105) 28.4 L Glucose (70 - 110 mg/dL) 229 H POC Glucose (70 - 110 MG/DL) 173 H 240 H 286 H 308 H Calcium (8.0 - 10.5 mg/dL) 8.9 Phosphorus (2.5 - 4.9 MG/DL) 4.3 Albumin (3.4 - 5.0 g/dL) 2.90 L Hematology WBC (4.5 - 11.0 x10 3/uL) 12.9 H RBC (3.54 - 5.02 x10 6/uL) 3.68 Hgb (11.0 - 15.0 g/dL) 9.2 L Hct (33.0 - 45.0 %) 31.1 L MCV (81.0 - 99.0 fL) 84.5 MCH (27.0 - 33.0 pg) 25.0 L MCHC (33.0 - 37.0 g/dL) 29.6 L RDW (11.5 - 14.5 %) 14.2 Plt Count (150 - 400 x10 3/uL) 350 MPV (7.0 - 9.0 fL) 12.4 H Neut % (Auto) (56.0 - 77.0 %) 51.0 L Lymph % (Auto) (14.0 - 32.0 %) 38.8 H [place] % (Auto) (4.8 - 9.0 %) 9.0 Eos % (Auto) (0.3 - 3.7 %) 0.2 L Baso % (Auto) (0.0 - 2.0 %) 0.7 Neut # (Auto) (2.0 - 7.6 x10 3/uL) 6.58 Lymph # (Auto) (1.0 - 3.8 x10 3/uL) 5.00 H [place] # (Auto) (0.1 - 0.8 x10 3/uL) 1.16 H Eos # (Auto) (0.0 - 0.2 x10 3/uL) 0.02 Baso # (Auto) (0.0 - 0.2 x10 3/uL) 0.09 Abs Immat Gran (auto) (0.00 - 0.03 0.04 H x10 3/uL) Add Manual Diff NO Immature Gran % (0.0 - 2.0 %) 0.3 Nucleated RBC % (0 - 0 %) 0.0 Nucleated RBCs # (Man) (0.0 - 0.1 0.00 x10 3/uL) Laboratory Tests: 10/21 10/21 10/21 10/20 10/20 1122 0737 0530 2332 1701 Chemistry Sodium (134 - 147 mEq/L) 138 Potassium (3.4 - 5.0 mEq/L) 3.3 L Chloride (100 - 108 mEq/L) 99 L Carbon Dioxide (21 - 33 mEq/l) 28 Anion Gap (0 - 20) 14 BUN (7 - 18 mg/dL) 19 H Creatinine (0.6 - 1.3 mg/dL) 2.3 H Glomerular Filtr Rate (95 - 105) 28.4 L Glucose (70 - 110 mg/dL) 229 H POC Glucose (70 - 110 MG/DL) 173 H 240 H 286 H 308 H Calcium (8.0 - 10.5 mg/dL) 8.9 Phosphorus (2.5 - 4.9 MG/DL) 4.3 Albumin (3.4 - 5.0 g/dL) 2.90 L Hematology WBC (4.5 - 11.0 x10 3/uL) 12.9 H RBC (3.54 - 5.02 x10 6/uL) 3.68 Hgb (11.0 - 15.0 g/dL) 9.2 L Hct (33.0 - 45.0 %) 31.1 L MCV (81.0 - 99.0 fL) 84.5 MCH (27.0 - 33.0 pg) 25.0 L MCHC (33.0 - 37.0 g/dL) 29.6 L RDW (11.5 - 14.5 %) 14.2 Plt Count (150 - 400 x10 3/uL) 350 MPV (7.0 - 9.0 fL) 12.4 H Neut % (Auto) (56.0 - 77.0 %) 51.0 L Lymph % (Auto) (14.0 - 32.0 %) 38.8 H [place] % (Auto) (4.8 - 9.0 %) 9.0 Eos % (Auto) (0.3 - 3.7 %) 0.2 L Baso % (Auto) (0.0 - 2.0 %) 0.7 Neut # (Auto) (2.0 - 7.6 x10 3/uL) 6.58 Lymph # (Auto) (1.0 - 3.8 x10 3/uL) 5.00 H [place] # (Auto) (0.1 - 0.8 x10 3/uL) 1.16 H Eos # (Auto) (0.0 - 0.2 x10 3/uL) 0.02 Baso # (Auto) (0.0 - 0.2 x10 3/uL) 0.09 Abs Immat Gran (auto) (0.00 - 0.03 0.04 H x10 3/uL) Add Manual Diff NO Immature Gran % (0.0 - 2.0 %) 0.3 Nucleated RBC % (0 - 0 %) 0.0 Nucleated RBCs # (Man) (0.0 - 0.1 0.00 x10 3/uL) Diagnosis, Assessment Plan Free Text A P: 1.DM I in DKA HgbA1c >14 adjust Lantus adjust Humalog monitor glucose diabetic diet diabetic teaching DC Plan:Lantus and Humalog, follow in office at the next available appointment. 2.Sick euthyroid recheck in 6 weeks 3.Acute respiratory failure intubated 4.Altered mental status non-contrast CTH unremarkable patient not MRI-compatible resolved neurology following 5.JAYLEEN with worsening renal function nephrology following 6.COVID-19 7.Bacteremia with alpha Streptococcus species on abx ID following 8.Wounds present to L + R foot debridement on abx Podiatry following Consultants: endocrinology, infectious disease, nephrology at 1348 Electronically Signed by Darvin Mooney MD on 0 10/23/21 at 1523 [facility] #:[id number] END OF REPORT 2021-10-21 13:20:00-00:00 [id number] [place] [address] PATIENT NAME: HARLEEN MANZANO ADMIT DATE: 2 ACCOUNT NO: [id number] ROOM NO: [facility] AGE: 40 REPORT TYPE: 360 - QUERY RESPONSE DOCUMENT SEX: F ADMITTING PHYSICIAN:Laura Trinh MD ATTENDING PHYSICIAN:Laura Trinh MD Provider Query QUERY TEXT: Stage CKD 360MD Query related questions should be directed to: Jennifer montenegro [facility] [place] Coding Query Hotline Based on your clinical judgment, can you further specify the stage of the chronic kidney disease located in [Insert source document(s) and date(s)]? Pertinent lab findings are as follows: [Insert serum creatinine and/or glomerular filtr ation rate and date(s)] Stages of Kidney Damage according to the [employer] are defined as follows: -- Stage 1 Kidney damage with normal kidney func tion (GFR > 90) -- Stage 2 Kidney damage with mildly decreased k idney function (GFR 60-89) -- Stage 3a Kidney damage with mildly to moderat scooter decreased kidney function (GFR 45-59) -- Stage 3b Kidney damage with moderately to sev erely decreased kidney function (GFR 30-44) -- Stage 4 Kidney damage with severely decreased kidney function (GFR 15-29) -- Stage 5 Kidney failure (GFR <15 or on dialysi s) -- End Stage Renal Disease (GFR <15 or on dialys is or transplant) The patient's Clinical Indicators include: JAYLEEN vs JAYLEEN on CKD secondary to DKA/hypovolemia/A TN: high dose lasix. avoid nephrotoxins.: ccpn 10/13 BUN-49H CREATININE-3.9H GFR-15.4L NS 1,000 mL: JUN 15 Options provided: -- Stage 1 -- Stage 2 -- Stage 3a -- Stage 3b -- Stage 3 -- Stage 4 -- Stage 5 -- End Stage -- Other - I will add my own diagnosis -- Dismiss - Not applicable / Not valid -- Dismiss - Clinically unable to determine / Un known -- Assign to another provider QUERY RESPONSE: The patient has stage 2 chronic kidney disease. Query created by: MOMO CORTES on 022 12:34 AM Electronically Signed by Laura Trinh MD on at 1320 PATIENT NAME: HARLEEN MANZANO [id number] 2021-10-21 06:52:00-00:00 [facility] Rehab Consult REPORT#:[id number] REPORT STATUS: Signed DATE:10/21/21 TIME: 651 PATIENT: HARLEEN MANZANO UNIT #: [id number] ROOM/BED: [place] [address] : 80 AGE: 40 SEX: F ATTEND: Laura Trinh ADM AUTHOR: Ema Hernandez PA-C * ALL edits or amendments must be made on the wst.cn/computer document * History of Present Illness HPI PCP: PCP: No Primary or Family Physician Requesting clinician: Dr. Shepherd Etiologic diagnosis: Critical Illness Myopathy/ Metabolic Encephalopa thy HPI: Patient is a 40-year-old fem venita with past medical history significant for type I diabetes who was found unresponsive by her daugh ter for an unknown period of time. In the ER she was noted to have a blood blankenship gar in the thousands with CO2 of 9 and WBC count of 20,000. She underwent resu scitation and was intubated with central line placed. e was admitted secondary to DKA and found to have a COVID-positive test and acut e respiratory failure with acute kidney injury. She was aggressively treated with IV hydration and p laced on a insulin drip. She was noted to have a left and right foot wound li brennen from poorly controlled diabetes. ID, Endocrinology and nephrology were consulted. Renal ultrasound was performed on 7 3 showing no acute sonographi c findings. CT of the abdomen pelvis shows no small bowel obstruction, small b ilateral basilar pleural effusions with no other abnormalities noted. CT of the head brain shows no acute intercranial abnormalities. Chest x-ray sh ows ill-defined bibasilar infiltrates diminished lung volumes likely atelectasis. During her ICU stay she was noted to have metabolic encephalopathy. CT h ead negative. An EEG was ordered. Blood cultures grew out strep mitis johann teremia, L foot wound culture with E coli and Enterococcus. EEG showed presenc e of continuous slowing suggestive of moderate degree of encephalopathy. Given her degree of Encephalopathy Neurology recmmended a LP. Her Cr started to elevated. Fluids held thinking more related to fluid overload and given IV lasix. She was able to be extubated, but remained confused. Underwen t a 24 hr EEG. Her Blood cultures have since remained negative. ID switch ed her from ancef to amoxicillin. She has improved enough she has bee n transferred out of the ICU. Off all drips. Therapy consu lted. She is making improvements with mobility, but did have a fall the other day. No acute injuries . She was seen by Occupational Therapy and noted to be supervision with grooming/ hygiene, modified independent with toileting, blankenship pervision with lower body dressing. She ambulated with physical therapy 35 feet at supervision. Functional Status PT evaluation: devices for safe mobility and/or positioning. SUPERVISION: 1. One on one supervision with cueing and edmond tance provided to ensure proper performance of all activities. Yes Precautions: Fall SAFETY CONSIDERATIONS COVID Safety addressed through use of: Gait Belt Extra Personnel Verbal Cues Weightbearing Restrictions: No Restriction ACTIVITIES PERFORMED: Bed Mobility - Rolling: Moderate Assistance Bed Mobility - Supine to Sit: Not Tested Bed Mobility - Sit to Supine: Moderate Assistan ce Scooting: Moderate Assistance Pivot Transfer: Supervision or Set-up Trunk control: Supervision or Set-up Sit to Stand: Supervision or Set-up Static Sitting: Supervision or Set-up Dynamic Sitting: Supervision or Set-up Static Standing: Supervision or Set-up Dynamic Standing: Supervision or Set-up Functional Ambulation: Supervision or Set-up Distance in Feet: 35 FT Functional Exercises: BED MOBS SIT TO STANDS AND GAIT WITH RW Durable Medical Equipment Currently Utilized: Hospital Bed Walker, Rolling Effects of Treatment: [place] of care decreased Post [place] Precautions: In Bed, rails Up Bed Alarm Raw Finish Mill Operator Light in Reach Nursing Notified Pulse OX in Place Review Plan of Care: Yes Functional Mob.Cmt: PT WAS SITTING IN CHAIR AT THE START OF THERAPY.SIT TO STANDS VERY SLOWLY FROM TRANSPOR T CHAIR.GAIT WITH RW X 35 FT WITH MIN ASSIST.SLOW [place]AG[place].TRANSFER BACK TO BED IWTH MOD ASSIST WITH PT HAVING PROBLEMS GETTING LE BACK INTO BED.LEG LIFT WAS TRIED BUT PT WAS UNABLE TO PUT LE BACK INTO BED. PT charges: FT/Therap. Activity 11916 If this is the patient's last treatment, this e ntry Start time: 1340 Stop time: 1355 Treatment Time : ( minutes) 0:15 Completed by: Mateus Thapa Conference/Supervising PT: Yes Supervising Therapist: Taya Hammonds . Physical Therapy: Plan of Care OT evaluation: TREATMENT OUTCOMES: Goals Achieved: Yes Progress demonstrated toward desired goals: Yes Decreased level of assistance needed: Yes Patient unable to tolerate intervention: No Activity tolerance: 20-30 minutes Durable Medical Equipment Recomended: RW Comments: no c/o pain before, during, after session. bed mobility: Min A w/ use of hospital bed LE dressing: supervision EOB toileting w/ riser: Mod I t/fs: SBA w/ and w/o RW hyg/grooming standing sinkside: Supervision w/ external support of sink motivated and willing to participate Document OT charges: SELF/HOME MGT/ADL [id number] Document Pain/Education: No Review OT Plan of Care: Yes If this is the patient's last treatment, this e ntry serves as the discharge summary: Y Start Time: 1007 Stop Time: 1035 Treatment time ( minutes): 0:28 Completed by: Sin Bess - GROOMING/HYGIENE: Washing hands/face: Supervision or Set-up Oral Hygiene: Supervision or Set-up Combing/brushing hair: Not Tested Applying/removing make-up: Not Tested Shaving face: Not Applicable ----- Toileting: Modified [place] Safety awareness demonstrated during completion of task: Yes Requires set up of supplies: No ----- ----- ----- Lower Extremity Dressing: Supervision or Set-up Increased time required: Yes Requires set up of supplies: Yes - History Past medical history: Reports: Diabetes mellitus. Additional medical history: anemia Additional surgical history: right hip Smoking status: Smoking status for patients 13 years old or old er: Unknown,if ever smoked Medications: Home Medications: Medication Dose/Rte/Freq Days Qty Entered Last Max Daily Dose Reviewed Unable to Obtain Home Medication History Current Hospital Medications: Anti-Infective Agents Sig/Aubrey Start time Last Medication Dose Route Stop Time Status Admin Amoxicillin 500 MG Q8HR 10/18 2199 AC 10/21 (AMOXIL) PO 11/01 6392 8660 Fluconazole/Sodium 100 ML DAILY 10/13 0900 DC 0 10/20 Chloride IV 10/23 0859 0852 (FLUCONAZOLE 200MG/ NS 100ML) Blood Formation,Coagulation Sig/Aubrey Start time Last Medication Dose Route Stop Time Status Admin Heparin Sodium 5,000 UNIT Q8H 10/10 0600 AC (HEPARIN 5000 UNITS/ SUBQ 11/09 0559 0452 ML) Cardiovascular Drugs Sig/Aubrey Start time Last Medication Dose Route Stop Time Status Admin Labetalol HCl 20 MG Q6H PRN PRN 10/12 2315 AC 0 10/17 (LABETALOL HCL) IV 11/11 2314 0003 Central Nervous System Agents Sig/Aubrey Start time Last Medication Dose Route Stop Time Status Admin Acetaminophen 650 MG Q6H PRN PRN 10/15 1515 AC 10/16 (TYLENOL) PO 11/14 1514 0151 Disinfectants (For Non-Dermato Sig/Aubrey Start time Last Medication Dose Route Stop Time Status Admin Sodium Hypochlorite 1 APPLIC DAILY 10/14 0900 A C 10/20 (DAKIN'S 1/2 TOPICAL 11/13 0859 0853 STRENGTH 0.25% 480 ML TOP SOLN) Electrolytic, Caloric, And Noe Sig/Aubrey Start time Last Medication Dose Route Stop Time Status Admin Furosemide 40 MG DAILY 10/21 0900 AC (LASIX) PO 11/20 0859 Furosemide 20 MG BID 9A 5P 10/15 0900 DC 10/20 (LASIX 20MG INJ) IV 11/14 0859 0852 Dextrose/Water 50 ML ASDIR PRN 10/08 2130 CKD (DEXTROSE 50% W IV 11/07 2128 SYRINGE) Gastrointestinal Drugs Sig/Aubrey Start time Last Medication Dose Route Stop Time Status Admin Ondansetron HCl 4 MG Q6H PRN PRN 10/19 0130 AC 10/19 (ZOFRAN) IV 11/18 0129 0136 Polyethylene Glycol 17 GM DAILY PRN 10/17 1315 AC (MIRALAX) PO 11/16 1314 Senna 2 TAB DAILY PRN 10/17 1300 CKD (SENOKOT 8.6 MG PO 11/17 0859 TABLET) Hormones And Synthetic Substit Sig/Aubrey Start time Last Medication Dose Route Stop Time Status Admin Insulin Glargine 20 UNIT BID 10/20 2100 AC 10/09 2 (Lantus/Semglee) SUBQ 11/19 Insulin Human Lispro 5 UNIT AC 10/20 1630 AC (HUMALOG) SUBQ 11/19 1629 1726 Insulin Glargine 20 UNIT DAILY 10/18 0905 DC (Lantus/Semglee) SUBQ 11/17 0904 0821 Insulin Human Lispro 0 AC HS 10/15 1630 AC 10/09 2 (HUMALOG) SUBQ 11/14 1629 2227 Allergies: Coded Allergies: Sulfa (Sulfonamide Antibiotics) (Mild, HIVES ) Objective Physical Exam VS: Last Documented: Result Date Time Pulse Ox 96 10/21 033 B/P 131/80 10/21 0335 B/P Mean 96.7 10/21 033 O2 Delivery Room air 10/21 334 Temp 98.2 10/21 334 Pulse 88 10/21 334 Resp 17 10/21 033 FiO2 21 10/15 0920 O2 Flow Rate 15.0 10/11 1600 PATIENT WEIGHT: Weight (lb): 378 Weight (oz): 0 Weight (kg): 171.458 General appearance: alert, awake, oriented HEENT: anicteric, mucosal membranes moist, scler a clear Neck: supple, no JVD Cardiovascular: regular rate rhythm, S1/S2 Respiratory: aerating well, clear bilaterally Abdomen: obese, bowel sounds present, non-disten ded, soft, non-tender Skin: dry, intact, no rash Musculoskeletal - general: Musculoskeletal - general: joints normal, range of motion normal, strength testing normal Neuro/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 OPERATOR: alert, oriented X 3, no motor deficit s, no sensory deficits Results Findings/Data: Laboratory Tests: 10/20 10/20 10/20 10/20 2332 1701 1156 0753 Chemistry POC Glucose (70 - 110 MG/DL) 286 H 308 H 332 H 325 H Diagnosis, Assessment Plan Free Text A P: Pt is actually doing pretty well from a mobility standpoint. No needs for OT. Ok to DC home with HH once medically cleared. Discu ssed with her and she agrees. Her aunt lives near by and sister is flying in t o assist her next week. Discussed importance of medical complinace. Thank you for allowing us to particpate in the c are of the patient. Electronically Signed by Ema Hernandez PA-C on at 1441 RPT #:[id number] END OF REPORT 2021-10-20 23:40:00-00:00 [facility] Hospitalist Progress Note REPORT#:[id number] REPORT STATUS: Signed DATE:10/20/21 TIME: 2339 PATIENT: HARLEEN MANZANO UNIT #: [id number] ROOM/BED: [place] [address] : 80 AGE: 40 SEX: F ATTEND: Laura Trinh ADM AUTHOR: Delisa Shepherd MD * ALL edits or amendments must be made on the wst.cn/Rec[employer]Match document * Subjective Chief complaint: per PT cannot go home as cannot walk up the stai rs. Objective General VS/I O: Vital Signs: Date Time Temp Pulse Resp B/P B/P Pulse O2 O2 F low FiO2 Mean Ox Delivery Rate 10/20 2338 98.2 96 17 147/82 103.4 96 Room air 10/20 1930 98.1 101 17 106/64 77.7 96 Room air 10/20 1703 101 18 149/85 106.3 99 Room air 10/20 1158 98.2 103 18 100/70 80.1 98 Room air 10/20 0756 98.2 97 16 145/68 93.6 96 Room air 10/20 0416 98.4 96 20 134/76 95.6 95 / 0026 99.0 97 18 142/79 100.4 97 PATIENT WEIGHT: Weight (lb): 378 Weight (oz): 0 Weight (kg): 171.458 Medications: Active Meds + DC'd Last 24 Hrs Furosemide (LASIX) 40 MG DAILY PO Insulin Glargine (Lantus/Semglee) 20 UNIT BID BLANKENSHIP BQ Insulin Human Lispro (HUMALOG) 5 UNIT AC SUBQ Ondansetron HCl (ZOFRAN) 4 MG Q6H PRN PRN IV Amoxicillin (AMOXIL) 500 MG Q8HR PO Insulin Glargine (Lantus/Semglee) 20 UNIT DAILY SUBQ (DC) Polyethylene Glycol (MIRALAX) 17 GM DAILY PRN PO Senna (SENOKOT 8.6 MG TABLET) 2 TAB DAILY PRN PO (CKD) Insulin Human Lispro (HUMALOG) 0 AC HS SUBQ Acetaminophen (TYLENOL) 650 MG Q6H PRN PRN PO Furosemide (LASIX 20MG INJ) 20 MG BID 9A 5P IV ( DC) Sodium Hypochlorite (DAKIN'S 1/2 STRENGTH 0.25% 480 ML TOP SOLN) 1 APPLIC DAILY TOPICAL Fluconazole/Sodium Chloride (FLUCONAZOLE 200MG/N S 100ML) 100 ML DAILY IV (DC) Labetalol HCl (LABETALOL HCL) 20 MG Q6H PRN PRN IV Heparin Sodium (HEPARIN 5000 UNITS/ML) 5,000 UNI T Q8H SUBQ Dextrose/Water (DEXTROSE 50% W SYRINGE) 50 ML DIR PRN IV (CKD) Physical Exam General appearance: no acute distress Head/Eyes: normocephalic ENT: moist mucosal membranes Neck: no JVD Cardiovascular: normal heart sounds, regular rat e rhythm Respiratory: aerating well, clear to auscultatio n, symmetric expansion Abdomen: non-tender, normal bowel sounds, soft, no distention Extremities: b/l feet wound Neuro/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 OPERATOR: alert, oriented X 3, CNII-XII intact, normal speech Skin: dry Psychiatry: normal mood Results Findings/Data: Laboratory Tests 10/20 10/20 10/20 10/20 10/20 1701 1156 0753 0636 0550 Chemistry Sodium (134 - 147 mEq/L) 137 Potassium (3.4 - 5.0 mEq/L) 3.4 Chloride (100 - 108 mEq/L) 97 L Carbon Dioxide (21 - 33 mEq/l) 22 Anion Gap (0 - 20) 21 H BUN (7 - 18 mg/dL) 24 H Creatinine (0.6 - 1.3 mg/dL) 2.5 H Glomerular Filtr Rate (95 - 105) 25.8 L Glucose (70 - 110 mg/dL) 328 H POC Glucose (70 - 110 MG/DL) 308 H 332 H 325 H 301 H Calcium (8.0 - 10.5 mg/dL) 8.9 Phosphorus (2.5 - 4.9 MG/DL) 5.0 H Albumin (3.4 - 5.0 g/dL) 2.90 L Laboratory Tests 10/20 0550 Hematology WBC (4.5 - 11.0 x10 3/uL) 14.8 H RBC (3.54 - 5.02 x10 6/uL) 3.76 Hgb (11.0 - 15.0 g/dL) 9.6 L Hct (33.0 - 45.0 %) 32.4 L MCV (81.0 - 99.0 fL) 86.2 MCH (27.0 - 33.0 pg) 25.5 L MCHC (33.0 - 37.0 g/dL) 29.6 L RDW (11.5 - 14.5 %) 14.6 H Plt Count (150 - 400 x10 3/uL) 326 MPV (7.0 - 9.0 fL) 12.3 H Neut % (Auto) (56.0 - 77.0 %) 59.6 Lymph % (Auto) (14.0 - 32.0 %) 30.5 [place] % (Auto) (4.8 - 9.0 %) 8.7 Eos % (Auto) (0.3 - 3.7 %) 0.1 L Baso % (Auto) (0.0 - 2.0 %) 0.6 Neut # (Auto) (2.0 - 7.6 x10 3/uL) 8.82 H Lymph # (Auto) (1.0 - 3.8 x10 3/uL) 4.52 H [place] # (Auto) (0.1 - 0.8 x10 3/uL) 1.29 H Eos # (Auto) (0.0 - 0.2 x10 3/uL) 0.02 Baso # (Auto) (0.0 - 0.2 x10 3/uL) 0.09 Abs Immat Gran (auto) (0.00 - 0.03 x10 3/uL) 0. 07 H Add Manual Diff NO Immature Gran % (0.0 - 2.0 %) 0.5 Nucleated RBC % (0 - 0 %) 0.0 Nucleated RBCs # (Man) (0.0 - 0.1 x10 3/uL) 0.0 0 Diagnosis, Assessment Plan Consultants: endocrinology, infectious disease, nephrology Free Text DxA P Notes Free text DxA P notes: Assessment and plans: Acute respiratory failure: Intubated for airway protection, sedated ICC on board S/p extubation on 10/14 Now saturating well on room air Sepsis: Blood culture strep species on 10/08, repeat blo od culture from 10/10 negative, urine culture growing yeast, wound cultu re growing diphtheroids, coag negative staph, E. coli, Enterococcus species s/p ancef; on amoxicillin till 11/01 -ID and podiatry seen On fluconazole for yeast in urine (10/23) JAYLEEN: creat stable; on lasix Acute encephalopathy: -due to above causes -treat underlying causes CT head ordered unremarkable 10/11 EEG showing moderate encephalopathy 10/12 Resolved Anemia: No active bleeding noted Monitor H H every 6 hours for 24 hours 10/12 blood transfusion if hemoglobin drops below 7 H H stable Bacteremia Management same as above b/l Foot infected wound Management same as above UTI Management same as above DKA: A1c more than 14 Insulin drip switched to blankenship bcu insulin, Glargine 25 unit bid, lispro 2 unit AC , ISS, hypoglycemia protocol Endocrine managing Constipation: Bowel regimen COVID 19 infection: Patient did not have respiratory distress on ad mission, intubated for airway protection COVID PCR positive Hyponatremia from osmotic hyperglycemia: Corrected sodium is elevated in hyperna tremic range due to severe dehydration Monitor lab hypokalemia-replete and monitor -heparin for DVT prophylaxis Diabetic diet Famotidine for GI prophylaxis Morning labs Disposition: On IV antibiotic. On IV Lasix. Eden l function slowly improving. Awaiting PT/OT eval. check labs in am will consult rehab and case manageement for poss ible IRF patient's insurance has no benefit for SNF Quality: Gen Med Crit Care VTE Prophylaxis VTE prophylaxis initiated: yes Current Medications Current medication review: I attest that the foregoing medication list in t he medical record is true, accurate, and complete to the best of my knowled ge. Electronically Signed by Delisa Shepherd MD on 0 10/21/21 at 0924 [facility] #:[id number] END OF REPORT 2021-10-20 15:55:00-00:00 [facility] Nephrology Progress Note REPORT#:[id number] REPORT STATUS: Signed DATE:10/20/21 TIME: 155 PATIENT: HARLEEN MANZANO UNIT #: [id number] ROOM/BED: [place] [address] : 80 AGE: 40 SEX: F ATTEND: Laura Trinh ADM AUTHOR: Timoteo Walker MD * ALL edits or amendments must be made on the el MD[employer]/computer document * Subjective Comments: Data and notes, reviewed Dw pt Awake, nad No chf sxs vss Review of Systems Constitutional: Denies: fever. Respiratory: Denies: MCALLISTER (dyspnea on exertion), non productiv e cough, productive cough ( sputum), SOB. Cardiovascular: Denies: chest pain. GI: Denies: abdominal pain, nausea. Heme: Denies: bleeding. Neuro: Denies: change in LOC, confusion. Objective General VS/I O: Vital Signs: Date Time Temp Pulse Resp B/P B/P Pulse O2 O2 F low FiO2 Mean Ox Delivery Rate 10/20 1158 98.2 103 18 100/70 80.1 98 Room air 10/20 0756 98.2 97 16 145/68 93.6 96 Room air 10/20 0416 98.4 96 20 134/76 95.6 95 10/20 0026 99.0 97 18 142/79 100.4 97 10/19 1927 98.2 98 18 138/79 98.9 98 PATIENT WEIGHT: Weight (lb): 378 Weight (oz): 0 Weight (kg): 171.458 Physical Exam General appearance: alert, a wake, oriented, no acute distress, pleasant, mental status normal, no respiratory distress ENT: moist mucous membranes Cardiovascular: regular rate and rhythm Respiratory: decreased breath sounds Abdomen: soft, obese Genitourinary: urinary catheter Extremities: swelling Neuro/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 OPERATOR: alert, oriented X 3 Psychiatry: no hallucinations Results Results: labs reviewed, vital signs reviewed, vi viv signs stable Diagnosis, Assessment Plan Free Text A P: JAYLEEN, nonoliguric and improvied/stable azotemia Fluid overload +Diuresis Hypokalemia Replete, prn DKA Resolved glycemic rx underway Respiratory failure Improved COVID+ Bacteremia, alpha Strep Left foot wound culture with E.coli and Enteroco ccus JAYLEEN likely 2/2 ATN Plan: Replete K+, prn Change to po Lasix, daily Strict I/Os No indication for dialysis at this time Consultants: endocrinology, infectious disease, nephrology Plan discussed with: patient, admitting physicia n Electronically Signed by Timoteo Walker MD on 07/1 2/22 at 1557 RPT #:[id number] END OF REPORT 2021-10-20 14:58:00-00:00 [facility] ([facility] Infectious Dis. Progress Note REPORT#:[id number] REPORT STATUS: Signed DATE:10/20/21 TIME: 1457 PATIENT: HARLEEN MANZANO UNIT #: [id number] ROOM/BED: [place] [address] : 80 AGE: 40 SEX: F ATTEND: Laura Trinh ADM AUTHOR: Pradip Akhtar MD, MD * ALL edits or amendments must be made on the [email or web address]/computer document * Subjective Chief complaint: DKA HPI: 40-year-old female with past medical history sig nificant for diabetes who was found unresponsive by her da ughter for unknown period of time. Her glucose 1095 and WBC 20 1K. Patient was resuscitated, intubated and central line was placed in ED. Patient reports: No: complaints. Review of Systems Constitutional: Denies: chills, fatigue. Skin: Denies: abrasion, bruising. Allergy/Immun: Denies: allergic reaction, anaphylaxis. Eyes: Denies: redness, discharge. ENT: Denies: ear drainage, ear ringing. Respiratory: Denies: MCALLISTER (dyspnea on exertion), hemoptysis. Cardiovascular: Denies: chest pain, MCALLISTER (dyspnea on exertion). GI: Denies: abdominal pain, anorexia. Objective General VS/I O: Vital Signs Date Temp Pulse Resp B/P B/P Mean Pulse Ox FiO2 10/19-10/20 98.2-99.0 92-103 16-20 100-145/68-82 80.1-100.4 95-98 Last Documented: Result Date Time Pulse Ox 98 10/20 1158 B/P 100/70 10/20 1158 B/P Mean 80.1 10/20 1158 O2 Delivery Room air 10/20 1158 Temp 98.2 10/20 1158 Pulse 103 / 1158 Resp 18 10/20 1158 FiO2 21 10/15 0920 O2 Flow Rate 15.0 07/03 1600 Vital Signs: Date Time Temp Pulse Resp B/P B/P Pulse O2 O2 F low FiO2 Mean Ox Delivery Rate 10/20 1158 98.2 103 18 100/70 80.1 98 Room air 10/20 0756 98.2 97 16 145/68 93.6 96 Room air 10/20 0416 98.4 96 20 134/76 95.6 95 10/20 0026 99.0 97 18 142/79 100.4 97 10/19 1927 98.2 98 18 138/79 98.9 98 10/19 1535 98.4 92 18 132/82 99.1 98 PATIENT WEIGHT: Weight (lb): 378 Weight (oz): 0 Weight (kg): 171.458 Medications: Active Meds + DC'd Last 24 Hrs Insulin Glargine (Lantus/Semglee) 20 UNIT BID BLANKENSHIP BQ Insulin Human Lispro (HUMALOG) 5 UNIT AC SUBQ Ondansetron HCl (ZOFRAN) 4 MG Q6H PRN PRN IV Amoxicillin (AMOXIL) 500 MG Q8HR PO Insulin Glargine (Lantus/Semglee) 20 UNIT DAILY SUBQ (DC) Polyethylene Glycol (MIRALAX) 17 GM DAILY PRN PO Senna (SENOKOT 8.6 MG TABLET) 2 TAB DAILY PRN PO (CKD) Insulin Human Lispro (HUMALOG) 0 AC HS SUBQ Acetaminophen (TYLENOL) 650 MG Q6H PRN PRN PO Furosemide (LASIX 20MG INJ) 20 MG BID 9A 5P IV Sodium Hypochlorite (DAKIN'S 1/2 STRENGTH 0.25% 480 ML TOP SOLN) 1 APPLIC DAILY TOPICAL Fluconazole/Sodium Chloride (FLUCONAZOLE 200MG/N S 100ML) 100 ML DAILY IV Labetalol HCl (LABETALOL HCL) 20 MG Q6H PRN PRN IV Heparin Sodium (HEPARIN 5000 UNITS/ML) 5,000 UNI T Q8H SUBQ Dextrose/Water (DEXTROSE 50% W SYRINGE) 50 ML DIR PRN IV (CKD) Physical Exam General appearance: no acute distress Head/Eyes: atraumatic, normocephalic Neck: non-tender, supple/no meningismus Cardiovascular: normal heart sounds, no murmur Respiratory: clear to auscultation, symmetric ex pansion Abdomen: non-tender, soft Extremities: no clubbing Results Findings/Data: Laboratory Tests 07/10/20 1156 0753 0636 0550 2127 Chemistry Sodium (134 - 147 mEq/L) 137 Potassium (3.4 - 5.0 mEq/L) 3.4 Chloride (100 - 108 mEq/L) 97 L Carbon Dioxide (21 - 33 mEq/l) 22 Anion Gap (0 - 20) 21 H BUN (7 - 18 mg/dL) 24 H Creatinine (0.6 - 1.3 mg/dL) 2.5 H Glomerular Filtr Rate (95 - 105) 25.8 L Glucose (70 - 110 mg/dL) 328 H POC Glucose (70 - 110 MG/DL) 332 H 325 H 301 H 237 H Calcium (8.0 - 10.5 mg/dL) 8.9 Phosphorus (2.5 - 4.9 MG/DL) 5.0 H Albumin (3.4 - 5.0 g/dL) 2.90 L 10/19 1747 Chemistry POC Glucose (70 - 110 MG/DL) 207 H Laboratory Tests 10/20 0550 Hematology WBC (4.5 - 11.0 x10 3/uL) 14.8 H RBC (3.54 - 5.02 x10 6/uL) 3.76 Hgb (11.0 - 15.0 g/dL) 9.6 L Hct (33.0 - 45.0 %) 32.4 L MCV (81.0 - 99.0 fL) 86.2 MCH (27.0 - 33.0 pg) 25.5 L MCHC (33.0 - 37.0 g/dL) 29.6 L RDW (11.5 - 14.5 %) 14.6 H Plt Count (150 - 400 x10 3/uL) 326 MPV (7.0 - 9.0 fL) 12.3 H Neut % (Auto) (56.0 - 77.0 %) 59.6 Lymph % (Auto) (14.0 - 32.0 %) 30.5 [place] % (Auto) (4.8 - 9.0 %) 8.7 Eos % (Auto) (0.3 - 3.7 %) 0.1 L Baso % (Auto) (0.0 - 2.0 %) 0.6 Neut # (Auto) (2.0 - 7.6 x10 3/uL) 8.82 H Lymph # (Auto) (1.0 - 3.8 x10 3/uL) 4.52 H [place] # (Auto) (0.1 - 0.8 x10 3/uL) 1.29 H Eos # (Auto) (0.0 - 0.2 x10 3/uL) 0.02 Baso # (Auto) (0.0 - 0.2 x10 3/uL) 0.09 Abs Immat Gran (auto) (0.00 - 0.03 x10 3/uL) 0. 07 H Add Manual Diff NO Immature Gran % (0.0 - 2.0 %) 0.5 Nucleated RBC % (0 - 0 %) 0.0 Nucleated RBCs # (Man) (0.0 - 0.1 x10 3/uL) 0.0 0 Results: labs reviewed, turner l signs reviewed, x-ray personally reviewed, current med profile rev'd Treatment Prophylaxis Treatment Prophylaxis CVC/PICC documentation: The data below has been imported from nursing do cumentation. Any exceptions have been noted below under Provider comments. CVC/PICC insertion date/time: No CVC/PICC Provider comments on imported nursing data: [] Diagnosis, Assessment Plan Problem List/A P: 1. DKA (diabetic ketoacidosis) 2. COVID 3. JAYLEEN (acute kidney injury) 4. Severe sepsis 5. Metabolic encephalopathy Free Text A P: Severe DKA, intubated due to AMS COVID positive 10/08, without pnuemonia or hypoxi a Strep mitis on blood 10/08, repeat 10/10 negative L foot wound culture 10/10 E coli and Enterococcus JAYLEEN, resolving AMS improved and extubated 10/14 s/p Ancef, on Amoxil -11/01 will follow Consultants: endocrinology, infectious disease, nephrology Electronically Signed by Pradip Akhtar MD, MD on at 1459 RPT #:[id number] END OF REPORT 2021-10-20 14:21:00-00:00 [facility] ([facility]) Endocrinology Progress Note REPORT#:[id number] REPORT STATUS: Signed DATE:10/20/21 TIME: 1421 PATIENT: HARLEEN MANZANO UNIT #: [id number] ROOM[address]BED: [address] : 80 AGE: 40 SEX: F ATTEND: Geoff Shepherd MD ADM AUTHOR: Gino Hernandez * ALL edits or amendments must be made on the [email or web address]/computer document * Subjective Chief complaint: f/u DM I tolerating diet had fruit today Objective General VS: Last Documented: Result Date Time Pulse Ox 98 10/20 1158 B/P 100/70 10/20 1158 B/P Mean 80.1 10/20 1158 O2 Delivery Room air 10/20 1158 Temp 98.2 10/20 1158 Pulse 103 10/20 1158 Resp 18 10/20 1158 FiO2 21 10/15 0920 O2 Flow Rate 15.0 10/11 1600 PATIENT WEIGHT: Weight (lb): 378 Weight (oz): 0 Weight (kg): 171.458 Medications: Active Meds + DC'd Last 24 Hrs Insulin Glargine (Lantus/Semglee) 20 UNIT BID BLANKENSHIP BQ Insulin Human Lispro (HUMALOG) 5 UNIT AC SUBQ Ondansetron HCl (ZOFRAN) 4 MG Q6H PRN PRN IV Amoxicillin (AMOXIL) 500 MG Q8HR PO Insulin Glargine (Lantus/Semglee) 20 UNIT DAILY SUBQ (DC) Polyethylene Glycol (MIRALAX) 17 GM DAILY PRN PO Senna (SENOKOT 8.6 MG TABLET) 2 TAB DAILY PRN PO (CKD) Insulin Human Lispro (HUMALOG) 0 AC HS SUBQ Acetaminophen (TYLENOL) 650 MG Q6H PRN PRN PO Furosemide (LASIX 20MG INJ) 20 MG BID 9A 5P IV Sodium Hypochlorite (DAKIN'S 1/2 STRENGTH 0.25% 480 ML TOP SOLN) 1 APPLIC DAILY TOPICAL Fluconazole/Sodium Chloride (FLUCONAZOLE 200MG/N S 100ML) 100 ML DAILY IV Labetalol HCl (LABETALOL HCL) 20 MG Q6H PRN PRN IV Heparin Sodium (HEPARIN 5000 UNITS/ML) 5,000 UNI T Q8H SUBQ Dextrose/Water (DEXTROSE 50% W SYRINGE) 50 ML DIR PRN IV (CKD) Nutrition assessment: The data set between the solid lines has been im ported from the dietitian's assessment. Any exceptions have been noted under Provider comments. BMI Calculated: 55.8 Nutrition related diagnosis: Morbid obesity Nutrition diagnosis details: BMI 40 or more Nutrition problem: Inadequate energy intake Nutrition etiology: Acute illness Nutrition signs and symptoms: <10% MEAL INTAKE Nutrition prescription: LIBERALIZE DIET TO REGUL AR ENSURE TID Dietitian name: Travis Soriano, DIET Assessment completed: 10/19/21 Provider comments on imported dietitian assessme nt: Physical Exam General appearance: alert, awake, oriented HEENT: normocephalic Neck: supple Cardiovascular: regular rate rhythm Respiratory: no distress Abdomen: soft Genitourinary: not indicated Extremities: warm Musculoskeletal: normal inspection Neuro/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 OPERATOR: alert, oriented X 3, normal speech Skin: dry, intact, warm Findings/data: Laboratory Tests: 10/20 10/20 10/20 10/20 10/19 1156 0753 0636 0550 2127 Chemistry Sodium (134 - 147 mEq/L) 137 Potassium (3.4 - 5.0 mEq/L) 3.4 Chloride (100 - 108 mEq/L) 97 L Carbon Dioxide (21 - 33 mEq/l) 22 Anion Gap (0 - 20) 21 H BUN (7 - 18 mg/dL) 24 H Creatinine (0.6 - 1.3 mg/dL) 2.5 H Glomerular Filtr Rate (95 - 105) 25.8 L Glucose (70 - 110 mg/dL) 328 H POC Glucose (70 - 110 MG/DL) 332 H 325 H 301 H 237 H Calcium (8.0 - 10.5 mg/dL) 8.9 Phosphorus (2.5 - 4.9 MG/DL) 5.0 H Albumin (3.4 - 5.0 g/dL) 2.90 L Hematology WBC (4.5 - 11.0 x10 3/uL) 14.8 H RBC (3.54 - 5.02 x10 6/uL) 3.76 Hgb (11.0 - 15.0 g/dL) 9.6 L Hct (33.0 - 45.0 %) 32.4 L MCV (81.0 - 99.0 fL) 86.2 MCH (27.0 - 33.0 pg) 25.5 L MCHC (33.0 - 37.0 g/dL) 29.6 L RDW (11.5 - 14.5 %) 14.6 H Plt Count (150 - 400 x10 3/uL) 326 MPV (7.0 - 9.0 fL) 12.3 H Neut % (Auto) (56.0 - 77.0 %) 59.6 Lymph % (Auto) (14.0 - 32.0 %) 30.5 [place] % (Auto) (4.8 - 9.0 %) 8.7 Eos % (Auto) (0.3 - 3.7 %) 0.1 L Baso % (Auto) (0.0 - 2.0 %) 0.6 Neut # (Auto) (2.0 - 7.6 x10 3/uL) 8.82 H Lymph # (Auto) (1.0 - 3.8 x10 3/uL) 4.52 H [place] # (Auto) (0.1 - 0.8 x10 3/uL) 1.29 H Eos # (Auto) (0.0 - 0.2 x10 3/uL) 0.02 Baso # (Auto) (0.0 - 0.2 x10 3/uL) 0.09 Abs Immat Gran (auto) (0.00 - 0.03 0.07 H x10 3/uL) Add Manual Diff NO Immature Gran % (0.0 - 2.0 %) 0.5 Nucleated RBC % (0 - 0 %) 0.0 Nucleated RBCs # (Man) (0.0 - 0.1 0.00 x10 3/uL) 10/19 1747 Chemistry POC Glucose (70 - 110 MG/DL) 207 H Laboratory Tests: 10/20 10/20 10/20 10/20 10/19 1156 0753 0628 0177 9574 Chemistry Sodium (134 - 147 mEq/L) 137 Potassium (3.4 - 5.0 mEq/L) 3.4 Chloride (100 - 108 mEq/L) 97 L Carbon Dioxide (21 - 33 mEq/l) 22 Anion Gap (0 - 20) 21 H BUN (7 - 18 mg/dL) 24 H Creatinine (0.6 - 1.3 mg/dL) 2.5 H Glomerular Filtr Rate (95 - 105) 25.8 L Glucose (70 - 110 mg/dL) 328 H POC Glucose (70 - 110 MG/DL) 332 H 325 H 301 H 237 H Calcium (8.0 - 10.5 mg/dL) 8.9 Phosphorus (2.5 - 4.9 MG/DL) 5.0 H Albumin (3.4 - 5.0 g/dL) 2.90 L Hematology WBC (4.5 - 11.0 x10 3/uL) 14.8 H RBC (3.54 - 5.02 x10 6/uL) 3.76 Hgb (11.0 - 15.0 g/dL) 9.6 L Hct (33.0 - 45.0 %) 32.4 L MCV (81.0 - 99.0 fL) 86.2 MCH (27.0 - 33.0 pg) 25.5 L MCHC (33.0 - 37.0 g/dL) 29.6 L RDW (11.5 - 14.5 %) 14.6 H Plt Count (150 - 400 x10 3/uL) 326 MPV (7.0 - 9.0 fL) 12.3 H Neut % (Auto) (56.0 - 77.0 %) 59.6 Lymph % (Auto) (14.0 - 32.0 %) 30.5 [place] % (Auto) (4.8 - 9.0 %) 8.7 Eos % (Auto) (0.3 - 3.7 %) 0.1 L Baso % (Auto) (0.0 - 2.0 %) 0.6 Neut # (Auto) (2.0 - 7.6 x10 3/uL) 8.82 H Lymph # (Auto) (1.0 - 3.8 x10 3/uL) 4.52 H [place] # (Auto) (0.1 - 0.8 x10 3/uL) 1.29 H Eos # (Auto) (0.0 - 0.2 x10 3/uL) 0.02 Baso # (Auto) (0.0 - 0.2 x10 3/uL) 0.09 Abs Immat Gran (auto) (0.00 - 0.03 0.07 H x10 3/uL) Add Manual Diff NO Immature Gran % (0.0 - 2.0 %) 0.5 Nucleated RBC % (0 - 0 %) 0.0 Nucleated RBCs # (Man) (0.0 - 0.1 0.00 x10 3/uL) 10/19 1747 Chemistry POC Glucose (70 - 110 MG/DL) 207 H Diagnosis, Assessment Plan Free Text A P: 1.DM I in DKA HgbA1c >14 adjust lantus adjust Humalog monitor glucose diabetic diet diabetic teaching DC Plan:Lantus and Humalog, follow in office at the next available appointment. 2.Sick euthyroid recheck in 6 weeks 3.Acute respiratory failure intubated 4.Altered mental status non-contrast CTH unremarkable patient not MRI-compatible resolved neurology following 5.JAYLEEN with worsening renal function nephrology following 6.COVID-19 7.Bacteremia with alpha Streptococcus species on abx ID following 8.Wounds present to L + R foot debridement on abx Podiatry following Consultants: endocrinology, infectious disease, nephrology at 1348 Electronically Signed by Darvin Mooney MD on 0 10/23/21 at 1523 RPT #:[id number] END OF REPORT 2021-10-19 22:49:00-00:00 [facility] Hospitalist Progress Note REPORT#:[id number] REPORT STATUS: Signed DATE:10/19/21 TIME: 2248 PATIENT: HARLEEN MANZANO UNIT #: [id number] ROOM/BED: [place] [address] : 80 AGE: 40 SEX: F ATTEND: Laura Trinh ADM AUTHOR: Delisa Shepherd MD * ALL edits or amendments must be made on the [email or web address]/computer document * Subjective Chief complaint: PT/OT seen. still needs to have more practice wh ile inhouse. Objective General VS/I O: Vital Signs: Date Time Temp Pulse Resp B/P B/P Pulse O2 O2 F low FiO2 Mean Ox Delivery Rate 10/19 1927 98.2 98 18 138/79 98.9 98 10/19 1535 98.4 92 18 132/82 99.1 98 10/19 1102 98.6 100 16 134/74 93.7 97 10/19 0701 98.2 95 16 145/84 104.0 96 10/19 0416 98.4 91 12 137/84 101.8 96 Room air 10/19 0028 98.8 99 12 123/84 96.9 97 Room air 24 hour I O ending at 0700: 10/19 0700 10/18 1900 Intake Total Output Total 2600 Balance -2600 Output, Urine 2600 PATIENT WEIGHT: Weight (lb): 378 Weight (oz): 0 Weight (kg): 171.458 Medications: Active Meds + DC'd Last 24 Hrs Potassium Chloride (POTASSIUM CHLORIDE 20MEQ TAB .ER) 20 MEQ ONCE ONE PO (DC) Ondansetron HCl (ZOFRAN) 4 MG Q6H PRN PRN IV Amoxicillin (AMOXIL) 500 MG Q8HR PO Insulin Glargine (Lantus/Semglee) 20 UNIT DAILY SUBQ Polyethylene Glycol (MIRALAX) 17 GM DAILY PRN PO Senna (SENOKOT 8.6 MG TABLET) 2 TAB DAILY PRN PO (CKD) Insulin Human Lispro (HUMALOG) 2 UNIT AC SUBQ (D C) Insulin Human Lispro (HUMALOG) 0 AC HS SUBQ Acetaminophen (TYLENOL) 650 MG Q6H PRN PRN PO Furosemide (LASIX 20MG INJ) 20 MG BID 9A 5P IV Sodium Hypochlorite (DAKIN'S 1/2 STRENGTH 0.25% 480 ML TOP SOLN) 1 APPLIC DAILY TOPICAL Fluconazole/Sodium Chloride (FLUCONAZOLE 200MG/N S 100ML) 100 ML DAILY IV Labetalol HCl (LABETALOL HCL) 20 MG Q6H PRN PRN IV Heparin Sodium (HEPARIN 5000 UNITS/ML) 5,000 UNI T Q8H SUBQ Dextrose/Water (DEXTROSE 50% W SYRINGE) 50 ML DIR PRN IV (CKD) Physical Exam General appearance: no acute distress Head/Eyes: normocephalic ENT: moist mucosal membranes Neck: no JVD Cardiovascular: normal heart sounds, regular rat e rhythm Respiratory: aerating well, clear to auscultatio n, symmetric expansion Abdomen: non-tender, normal bowel sounds, soft, no distention Extremities: b/l feet wound Neuro/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 OPERATOR: alert, oriented X 3, CNII-XII intact, normal speech Skin: dry Psychiatry: normal mood Results Findings/Data: Laboratory Tests 10/19 10/19 10/19 10/19 10/19 2127 1747 1228 1103 0703 Chemistry POC Glucose (70 - 110 MG/DL) 237 H 207 H 230 H 209 H 140 H 10/19 0525 Chemistry Sodium (134 - 147 mEq/L) 141 Potassium (3.4 - 5.0 mEq/L) 3.3 L Chloride (100 - 108 mEq/L) 100 Carbon Dioxide (21 - 33 mEq/l) 27 Anion Gap (0 - 20) 18 BUN (7 - 18 mg/dL) 26 H Creatinine (0.6 - 1.3 mg/dL) 2.3 H Glomerular Filtr Rate (95 - 105) 28.4 L Glucose (70 - 110 mg/dL) 127 H Calcium (8.0 - 10.5 mg/dL) 8.9 Laboratory Tests 10/19 0525 Hematology WBC (4.5 - 11.0 x10 3/uL) 12.2 H RBC (3.54 - 5.02 x10 6/uL) 4.01 Hgb (11.0 - 15.0 g/dL) 10.2 L Hct (33.0 - 45.0 %) 33.7 MCV (81.0 - 99.0 fL) 84.0 MCH (27.0 - 33.0 pg) 25.4 L MCHC (33.0 - 37.0 g/dL) 30.3 L RDW (11.5 - 14.5 %) 14.5 Plt Count (150 - 400 x10 3/uL) 357 MPV (7.0 - 9.0 fL) 12.0 H Neut % (Auto) (56.0 - 77.0 %) 49.5 L Lymph % (Auto) (14.0 - 32.0 %) 38.3 H [place] % (Auto) (4.8 - 9.0 %) 11.0 H Eos % (Auto) (0.3 - 3.7 %) 0.2 L Baso % (Auto) (0.0 - 2.0 %) 0.6 Neut # (Auto) (2.0 - 7.6 x10 3/uL) 6.03 Lymph # (Auto) (1.0 - 3.8 x10 3/uL) 4.67 H [place] # (Auto) (0.1 - 0.8 x10 3/uL) 1.34 H Eos # (Auto) (0.0 - 0.2 x10 3/uL) 0.02 Baso # (Auto) (0.0 - 0.2 x10 3/uL) 0.07 Abs Immat Gran (auto) (0.00 - 0.03 x10 3/uL) 0. 05 H Add Manual Diff NO Immature Gran % (0.0 - 2.0 %) 0.4 Nucleated RBC % (0 - 0 %) 0.0 Nucleated RBCs # (Man) (0.0 - 0.1 x10 3/uL) 0.0 0 Diagnosis, Assessment Plan Consultants: endocrinology, infectious disease, nephrology Free Text DxA P Notes Free text DxA P notes: Assessment and plans: Acute respiratory failure: Intubated for airway protection, sedated ICC on board S/p extubation on 10/14 Now saturating well on room air Sepsis: Blood culture strep species on 10/08, repeat blo od culture from 10/10 negative, urine culture growing yeast, wound cultu re growing diphtheroids, coag negative staph, E. coli, Enterococcus species s/p ancef; on amoxicillin till 11/01 -ID and podiatry seen On fluconazole for yeast in urine (10/23) JAYLEEN: creat stable; on lasix Acute encephalopathy: -due to above causes -treat underlying causes CT head ordered unremarkable 10/11 EEG showing moderate encephalopathy 10/12 Resolved Anemia: No active bleeding noted Monitor H H every 6 hours for 24 hours 10/12 blood transfusion if hemoglobin drops below 7 H H stable Bacteremia Management same as above b/l Foot infected wound Management same as above UTI Management same as above DKA: A1c more than 14 Insulin drip switched to blankenship bcu insulin, Glargine 25 unit bid, lispro 2 unit AC , ISS, hypoglycemia protocol Endocrine managing Constipation: Bowel regimen COVID 19 infection: Patient did not have respiratory distress on ad mission, intubated for airway protection COVID PCR positive Hyponatremia from osmotic hyperglycemia: Corrected sodium is elevated in hyperna tremic range due to severe dehydration Monitor lab hypokalemia-replete and monitor -heparin for DVT prophylaxis Diabetic diet Famotidine for GI prophylaxis Morning labs Disposition: On IV antibiotic. On IV Lasix. Eden l function slowly improving. Awaiting PT/OT eval. check labs in am Disposition:- based on PT/OT. Quality: Gen Med Crit Care VTE Prophylaxis VTE prophylaxis initiated: yes Current Medications Current medication review: I attest that the foregoing medication list in t medical record is true, accurate, and complete to the best of my knowled ge. Electronically Signed by Delisa Shepherd MD on 0 10/19/21 at 2253 [facility] #:[id number] END OF REPORT 2021-10-19 12:55:00-00:00 [facility] Nephrology Progress Note REPORT#:[id number] REPORT STATUS: Signed DATE:10/19/21 TIME: 1255 PATIENT: HARLEEN MANZANO UNIT #: [id number] ROOM/BED: [place] [address] : 80 AGE: 40 SEX: F ATTEND: Laura Trinh ADM AUTHOR: Timoteo Walker MD * ALL edits or amendments must be made on the wst.cn/computer document * Subjective Comments: Data and notes, reviewed Awake, alert nad Feels better, per pt O>I vss Review of Systems Constitutional: Reports: fatigue. Denies: fever. Respiratory: Denies: hemoptysis, productive cough (sputum). Cardiovascular: Denies: chest pain. GI: Denies: abdominal pain, nausea, vomiting. Heme: Denies: bleeding. Neuro: Denies: change in LOC, confusion. Objective General VS/I O: Vital Signs: Date Time Temp Pulse Resp B/P B/P Pulse O2 O2 F low FiO2 Mean Ox Delivery Rate 10/19 1102 98.6 100 16 134/74 93.7 97 10/19 0701 98.2 95 16 145/84 104.0 96 10/19 0416 98.4 91 12 137/84 101.8 96 Room air 10/19 0028 98.8 99 12 123/84 96.9 97 Room air 10/18 2018 98.2 85 12 153/87 108.7 97 Room air 10/18 1656 98.2 83 18 133/88 103.0 96 Room air 24 hour I O ending at 0700: 10/19 0700 10/18 1900 Intake Total Output Total 2600 Balance -2600 Output, Urine 2600 PATIENT WEIGHT: Weight (lb): 378 Weight (oz): 0 Weight (kg): 171.458 Physical Exam General appearance: alert, awake, oriented, no a cute distress, pleasant, conversational, mental status normal, no respira tory distress ENT: moist mucous membranes Cardiovascular: regular rate and rhythm Respiratory: decreased breath sounds Abdomen: soft, obese Genitourinary: urinary catheter Extremities: swelling Neuro/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 OPERATOR: alert, oriented X 3 Psychiatry: no hallucinations Results Results: labs reviewed, vital signs reviewed, vi viv signs stable Diagnosis, Assessment Plan Free Text A P: JAYLEEN, nonoliguric and improving azotemia Fluid overload +Diuresis Hypokalemia Replete, prn DKA Resolved glycemic rx underway Respiratory failure Improved COVID+ Bacteremia, alpha Strep Left foot wound culture with E.coli and Enteroco ccus JAYLEEN likely 2/2 ATN Cr continues to trend down now Replete K+ Continue scheduled IV Lasix Strict I/Os No indication for dialysis at this time Consultants: endocrinology, infectious disease, nephrology Plan discussed with: patient Electronically Signed by Timoteo Walker MD on 10/09 05/02 at 1257 RPT #:[id number] END OF REPORT 2021-10-19 11:47:00-00:00 [facility] Infectious Dis. Progress Note REPORT#:[id number] REPORT STATUS: Signed DATE:10/19/21 TIME: 1147 PATIENT: HARLEEN MANZANO UNIT #: [id number] ROOM/BED: [address] : 80 AGE: 40 SEX: F ATTEND: Laura Trinh ADM AUTHOR: Pradip Akhtar MD, MD * ALL edits or amendments must be made on the el ectronic/computer document * Subjective Chief complaint: DKA HPI: 40-year-old female with past medical history sig nificant for diabetes who was found unresponsive by her da ughter for unknown period of time. Her glucose 1095 and WBC 20 1K. Patient was resuscitated, intubated and central line was placed in ED. Patient reports: No: complaints. Review of Systems Constitutional: Denies: chills, fatigue. Skin: Denies: abrasion, bruising. Allergy/Immun: Denies: allergic reaction, anaphylaxis. Eyes: Denies: redness, discharge. ENT: Denies: ear drainage, ear ringing. Respiratory: Denies: MCALLISTER (dyspnea on exertion), hemoptysis. Cardiovascular: Denies: chest pain, MCALLISTER (dyspnea on exertion). Objective General VS/I O: Vital Signs Date Temp Pulse Resp B/P B/P Mean Pulse Ox FiO2 10/18-10/19 98.2-98.8 83-100 12-18 123-154/74-89 93.7-111.0 96-97 Last Documented: Result Date Time Pulse Ox 97 10/19 1102 B/P 134/74 07/ 1102 B/P Mean 93.7 10/19 1102 Temp 98.6 10/19 1102 Pulse 100 / 1102 Resp 16 10/19 1102 O2 Delivery Room air 10/19 0416 FiO2 21 / 0920 O2 Flow Rate 15.0 07/03 1600 Vital Signs: Date Time Temp Pulse Resp B/P B/P Pulse O2 O2 F low FiO2 Mean Ox Delivery Rate 10/19 1102 98.6 100 16 134/74 93.7 97 / 0701 98.2 95 16 145/84 104.0 96 10/19 0416 98.4 91 12 137/84 101.8 96 Room air 10/19 0028 98.8 99 12 123/84 96.9 97 Room air 10/18 2017 98.2 85 12 153/87 108.7 97 Room air 10/18 1656 98.2 83 18 133/88 103.0 96 Room air 10/18 1154 98.6 89 16 154/89 111.0 97 Room air 24 hour I O ending at 0700: 10/19 0700 10/18 1900 Intake Total Output Total 2600 Balance -2600 Output, Urine 2600 PATIENT WEIGHT: Weight (lb): 378 Weight (oz): 0 Weight (kg): 171.458 Medications: Active Meds + DC'd Last 24 Hrs Ondansetron HCl (ZOFRAN) 4 MG Q6H PRN PRN IV Amoxicillin (AMOXIL) 500 MG Q8HR PO Insulin Glargine (Lantus/Semglee) 20 UNIT DAILY SUBQ Polyethylene Glycol (MIRALAX) 17 GM DAILY PRN PO Senna (SENOKOT 8.6 MG TABLET) 2 TAB DAILY PRN PO (CKD) Insulin Human Lispro (HUMALOG) 2 UNIT AC SUBQ Insulin Human Lispro (HUMALOG) 0 AC HS SUBQ Acetaminophen (TYLENOL) 650 MG Q6H PRN PRN PO Furosemide (LASIX 20MG INJ) 20 MG BID 9A 5P IV Sodium Hypochlorite (DAKIN'S 1/2 STRENGTH 0.25% 480 ML TOP SOLN) 1 APPLIC DAILY TOPICAL Fluconazole/Sodium Chloride (FLUCONAZOLE 200MG/N S 100ML) 100 ML DAILY IV Labetalol HCl (LABETALOL HCL) 20 MG Q6H PRN PRN IV Heparin Sodium (HEPARIN 5000 UNITS/ML) 5,000 UNI T Q8H SUBQ Dextrose/Water (DEXTROSE 50% W SYRINGE) 50 ML DIR PRN IV (CKD) Physical Exam General appearance: no acute distress Head/Eyes: atraumatic, normocephalic Neck: non-tender, supple/no meningismus Cardiovascular: normal heart sounds, no murmur Respiratory: clear to auscultation, symmetric ex pansion Abdomen: non-tender, soft Extremities: no clubbing Results Findings/Data: Laboratory Tests 10/19 10/19 10/19 10/18 10/18 [id number] Chemistry Sodium (134 - 147 mEq/L) 141 Potassium (3.4 - 5.0 mEq/L) 3.3 L Chloride (100 - 108 mEq/L) 100 Carbon Dioxide (21 - 33 mEq/l) 27 Anion Gap (0 - 20) 18 BUN (7 - 18 mg/dL) 26 H Creatinine (0.6 - 1.3 mg/dL) 2.3 H Glomerular Filtr Rate (95 - 105) 28.4 L Glucose (70 - 110 mg/dL) 127 H POC Glucose (70 - 110 MG/DL) 209 H 140 H 118 H 105 Calcium (8.0 - 10.5 mg/dL) 8.9 10/18 1152 Chemistry POC Glucose (70 - 110 MG/DL) 96 Laboratory Tests 10/19 0525 Hematology WBC (4.5 - 11.0 x10 3/uL) 12.2 H RBC (3.54 - 5.02 x10 6/uL) 4.01 Hgb (11.0 - 15.0 g/dL) 10.2 L Hct (33.0 - 45.0 %) 33.7 MCV (81.0 - 99.0 fL) 84.0 MCH (27.0 - 33.0 pg) 25.4 L MCHC (33.0 - 37.0 g/dL) 30.3 L RDW (11.5 - 14.5 %) 14.5 Plt Count (150 - 400 x10 3/uL) 357 MPV (7.0 - 9.0 fL) 12.0 H Neut % (Auto) (56.0 - 77.0 %) 49.5 L Lymph % (Auto) (14.0 - 32.0 %) 38.3 H [place] % (Auto) (4.8 - 9.0 %) 11.0 H Eos % (Auto) (0.3 - 3.7 %) 0.2 L Baso % (Auto) (0.0 - 2.0 %) 0.6 Neut # (Auto) (2.0 - 7.6 x10 3/uL) 6.03 Lymph # (Auto) (1.0 - 3.8 x10 3/uL) 4.67 H [place] # (Auto) (0.1 - 0.8 x10 3/uL) 1.34 H Eos # (Auto) (0.0 - 0.2 x10 3/uL) 0.02 Baso # (Auto) (0.0 - 0.2 x10 3/uL) 0.07 Abs Immat Gran (auto) (0.00 - 0.03 x10 3/uL) 0. 05 H Add Manual Diff NO Immature Gran % (0.0 - 2.0 %) 0.4 Nucleated RBC % (0 - 0 %) 0.0 Nucleated RBCs # (Man) (0.0 - 0.1 x10 3/uL) 0.0 0 Results: labs reviewed, turner l signs reviewed, x-ray personally reviewed, current med profile rev'd Treatment Prophylaxis Treatment Prophylaxis CVC/PICC documentation: The data below has been imported from nursing do cumentation. Any exceptions have been noted below under Provider comments. CVC/PICC insertion date/time: No CVC/PICC Provider comments on imported nursing data: [] Diagnosis, Assessment Plan Problem List/A P: 1. DKA (diabetic ketoacidosis) 2. COVID 3. JAYLEEN (acute kidney injury) 4. Severe sepsis 5. Metabolic encephalopathy Free Text A P: Severe DKA, intubated due to AMS COVID positive 10/08, without pnuemonia or hypoxi a Strep mitis on blood 10/08, repeat 10/10 negative L foot wound culture 10/10 E coli and Enterococcus JAYLEEN, resolving AMS improved and extubated 10/14 s/p Ancef, on Amoxil -11/01 will follow Consultants: endocrinology, infectious disease, nephrology Electronically Signed by Pradip Akhtar MD, MD on at 1148 RPT #:[id number] END OF REPORT 2021-10-18 17:03:00-00:00 [facility] ([facility]) Infectious Dis. Progress Note REPORT#:[id number] REPORT STATUS: Signed DATE:10/18/21 TIME: 1702 PATIENT: HARLEEN MANZANO UNIT #: [id number] ROOM[address]BED: [address] : [address] AGE: 40 SEX: F ATTEND: Laura Trinh ADM AUTHOR: Pradip Akhtar MD, MD * ALL edits or amendments must be made on the [employer]/computer document * Subjective Chief complaint: DKA HPI: 40-year-old female with past medical history sig nificant for diabetes who was found unresponsive by her marisa chavez for unknown period of time. Her glucose 1095 and WBC 20 1K. Patient was resuscitated, intubated and central line was placed in ED. Patient reports: No: complaints. Review of Systems Constitutional: Denies: chills, fatigue. Skin: Denies: abrasion, bruising. Allergy/Immun: Denies: allergic reaction, hives. Eyes: Denies: redness, discharge. ENT: Denies: ear drainage, earache. Respiratory: Denies: MCALLISTER (dyspnea on exertion), hemoptysis. Cardiovascular: Denies: chest pain, MCALLISTER (dyspnea on exertion). Objective General VS/I O: Vital Signs Date Temp Pulse Resp B/P B/P Mean Pulse Ox FiO2 10/17-10/18 98.2-98.8 83-89 12-18 132-156/73-89 92.8-111.0 94-98 Last Documented: Result Date Time Pulse Ox 96 10/18 1656 B/P 133/88 / 1656 B/P Mean 103.0 / 1656 O2 Delivery Room air 10/18 1656 Temp 98.2 07/ 1656 Pulse 83 07/10 1656 Resp 18 07/10 1656 FiO2 21 /07 0920 O2 Flow Rate 15.0 07/03 1600 Vital Signs: Date Time Temp Pulse Resp B/P B/P Pulse O2 O2 F low FiO2 Mean Ox Delivery Rate 10/18 1656 98.2 83 18 133/88 103.0 96 Room air 10/18 1154 98.6 89 16 154/89 111.0 97 Room air / 0804 98.6 85 18 132/73 92.8 97 Room air / 0433 98.4 88 14 145/84 104.6 94 Room air / 0044 98.2 86 18 140/82 101.6 98 / 2203 98.8 87 12 156/84 108 98 Room air PATIENT WEIGHT: Weight (lb): 378 Weight (oz): 0 Weight (kg): 171.458 Medications: Active Meds + DC'd Last 24 Hrs Insulin Glargine (Lantus/Semglee) 20 UNIT DAILY SUBQ Insulin Glargine (Lantus/Semglee) 20 UNIT BID BLANKENSHIP BQ (DC) Polyethylene Glycol (MIRALAX) 17 GM DAILY PRN PO Senna (SENOKOT 8.6 MG TABLET) 2 TAB DAILY PRN PO (CKD) Insulin Human Lispro (HUMALOG) 2 UNIT AC SUBQ Insulin Human Lispro (HUMALOG) 0 AC HS SUBQ Acetaminophen (TYLENOL) 650 MG Q6H PRN PRN PO Furosemide (LASIX 20MG INJ) 20 MG BID 9A 5P IV Sodium Hypochlorite (DAKIN'S 1/2 STRENGTH 0.25% 480 ML TOP SOLN) 1 APPLIC DAILY TOPICAL Fluconazole/Sodium Chloride (FLUCONAZOLE 200MG/N S 100ML) 100 ML DAILY IV Labetalol HCl (LABETALOL HCL) 20 MG Q6H PRN PRN IV Cefazolin Sodium (KEFZOL OR ANCEF) 1 GM Q12H IV (DC) Sodium Chloride (SODIUM CHLORIDE) 10 ML Heparin Sodium (HEPARIN 5000 UNITS/ML) 5,000 UNI T Q8H SUBQ Dextrose/Water (DEXTROSE 50% W SYRINGE) 50 ML DIR PRN IV (CKD) Physical Exam General appearance: no acute distress Head/Eyes: atraumatic, normocephalic Neck: non-tender, supple/no meningismus Cardiovascular: normal heart sounds, no murmur Respiratory: clear to auscultation, symmetric ex pansion Abdomen: non-tender, soft Extremities: no clubbing Results Findings/Data: Laboratory Tests 10/18 10/18 10/18 10/18 10/18 1152 0803 0616 0600 0432 Chemistry Sodium (134 - 147 mEq/L) 142 Potassium (3.4 - 5.0 mEq/L) 3.1 L Chloride (100 - 108 mEq/L) 101 Carbon Dioxide (21 - 33 mEq/l) 34 H Anion Gap (0 - 20) 10 BUN (7 - 18 mg/dL) 36 H Creatinine (0.6 - 1.3 mg/dL) 2.5 H Glomerular Filtr Rate (95 - 105) 25.8 L Glucose (70 - 110 mg/dL) 88 POC Glucose (70 - 110 MG/DL) 96 87 90 67 L Calcium (8.0 - 10.5 mg/dL) 8.7 10/17 2018 Chemistry POC Glucose (70 - 110 MG/DL) 62 L Laboratory Tests 10/18 0600 Hematology WBC (4.5 - 11.0 x10 3/uL) 11.4 H RBC (3.54 - 5.02 x10 6/uL) 3.90 Hgb (11.0 - 15.0 g/dL) 9.8 L Hct (33.0 - 45.0 %) 32.3 L MCV (81.0 - 99.0 fL) 82.8 MCH (27.0 - 33.0 pg) 25.1 L MCHC (33.0 - 37.0 g/dL) 30.3 L RDW (11.5 - 14.5 %) 14.6 H Plt Count (150 - 400 x10 3/uL) 310 MPV (7.0 - 9.0 fL) 11.5 H Neut % (Auto) (56.0 - 77.0 %) 39.8 L Lymph % (Auto) (14.0 - 32.0 %) 46.9 H [place] % (Auto) (4.8 - 9.0 %) 12.0 H Eos % (Auto) (0.3 - 3.7 %) 0.2 L Baso % (Auto) (0.0 - 2.0 %) 0.5 Neut # (Auto) (2.0 - 7.6 x10 3/uL) 4.54 Lymph # (Auto) (1.0 - 3.8 x10 3/uL) 5.35 H [place] # (Auto) (0.1 - 0.8 x10 3/uL) 1.37 H Eos # (Auto) (0.0 - 0.2 x10 3/uL) 0.02 Baso # (Auto) (0.0 - 0.2 x10 3/uL) 0.06 Abs Immat Gran (auto) (0.00 - 0.03 x10 3/uL) 0. 07 H Add Manual Diff NO Immature Gran % (0.0 - 2.0 %) 0.6 Nucleated RBC % (0 - 0 %) 0.0 Nucleated RBCs # (Man) (0.0 - 0.1 x10 3/uL) 0.0 0 Results: labs reviewed, turner l signs reviewed, x-ray personally reviewed, current med profile rev'd Treatment Prophylaxis Treatment Prophylaxis CVC/PICC documentation: The data below has been imported from nursing do cumentation. Any exceptions have been noted below under Provider comments. CVC/PICC insertion date/time: No CVC/PICC Provider comments on imported nursing data: [] Diagnosis, Assessment Plan Problem List/A P: 1. DKA (diabetic ketoacidosis) 2. COVID 3. JAYLEEN (acute kidney injury) 4. Severe sepsis 5. Metabolic encephalopathy Free Text A P: Severe DKA, intubated due to AMS COVID positive 10/08, without pnuemonia or hypoxi a Strep mitis on blood 10/08, repeat 10/10 negative L foot wound culture 10/10 E coli and Enterococcus JAYLEEN, resolving AMS improved and extubated 10/14 s/p Ancef, on Amoxil -11/01 will follow Electronically Signed by Pradip Akhtar MD, MD on at 1707 RPT #:[id number] END OF REPORT 2021-10-18 10:29:00-00:00 [facility] Podiatry Progress Note REPORT#:[id number] REPORT STATUS: Signed DATE:10/18/21 TIME: 1029 PATIENT: HARLEEN MANZANO UNIT #: [id number] ROOM/BED: [place] [address] : 80 AGE: 40 SEX: F ATTEND: Laura Trinh ADM AUTHOR: Martir Zamora DPEsau * ALL edits or amendments must be made on the [email or web address]/computer document * Subjective Chief complaint: left and right foot ulcers Patient reports: no abdomina l pain, no chest pain, no cough, no fever, no nausea Objective General VS: Last Documented: Result Date Time Pulse Ox 97 10/19 803 B/P 132/73 10/19 803 B/P Mean 92.8 10/19 803 O2 Delivery Room air 07/10 0804 Temp 98.6 10/18 0804 Pulse 85 10/18 0804 Resp 18 10/18 0804 FiO2 21 10/15 0920 O2 Flow Rate 15.0 10/11 1600 PATIENT WEIGHT: Weight (lb): 378 Weight (oz): 0 Weight (kg): 171.458 Medications: Active Meds + DC'd Last 24 Hrs Insulin Glargine (Lantus/Semglee) 20 UNIT DAILY SUBQ Polyethylene Glycol (MIRALAX) 17 GM DAILY PO (CA N) Insulin Glargine (Lantus/Semglee) 20 UNIT BID BLANKENSHIP BQ (DC) Polyethylene Glycol (MIRALAX) 17 GM DAILY PRN PO Senna (SENOKOT 8.6 MG TABLET) 2 TAB DAILY PRN PO (CKD) Insulin Glargine (Lantus/Semglee) 25 UNIT BID BLANKENSHIP BQ (DC) Insulin Human Lispro (HUMALOG) 2 UNIT AC SUBQ Insulin Human Lispro (HUMALOG) 0 AC HS SUBQ Acetaminophen (TYLENOL) 650 MG Q6H PRN PRN PO Furosemide (LASIX 20MG INJ) 20 MG BID 9A 5P IV Sodium Hypochlorite (DAKIN'S 1/2 STRENGTH 0.25% 480 ML TOP SOLN) 1 APPLIC DAILY TOPICAL Fluconazole/Sodium Chloride (FLUCONAZOLE 200MG/N S 100ML) 100 ML DAILY IV Labetalol HCl (LABETALOL HCL) 20 MG Q6H PRN PRN IV Polyethylene Glycol (MIRALAX) 17 GM BID FEED-TUB E (DC) Senna/Docusate Sodium (SENOKOT S) 2 TAB DAILY FE ED-TUBE (DC) Cefazolin Sodium (KEFZOL OR ANCEF) 1 GM Q12H IV (DC) Sodium Chloride (SODIUM CHLORIDE) 10 ML Heparin Sodium (HEPARIN 5000 UNITS/ML) 5,000 UNI T Q8H SUBQ Dextrose/Water (DEXTROSE 50% W SYRINGE) 50 ML DIR PRN IV (CKD) Nutrition assessment: The data set between the solid lines has been im ported from the dietitian's assessment. Any exceptions have been noted under Provider comments. BMI Calculated: 55.8 Nutrition related diagnosis: Morbid obesity Nutrition diagnosis details: BMI 40 or more Nutrition problem: Inadequate energy intake Nutrition etiology: Acute illness Nutrition signs and symptoms: <10% MEAL INTAKE Nutrition prescription: LIBERALIZE DIET TO REGUL AR ENSURE TID Dietitian name: Travis Soriano, DIET Assessment completed: 10/15/21 Provider comments on imported dietitian assessme nt: Physical Exam General appearance: alert, awake, oriented Wound/incision: Location: left and right foot Musculoskeletal: Musculoskeletal: decreased ROM Skin: erythema Ulcer: Location: foot Results Findings/Data: Laboratory Tests: 10/18 10/18 10/18 10/18 10/17 0803 0616 0600 0432 2018 Chemistry Sodium (134 - 147 mEq/L) 142 Potassium (3.4 - 5.0 mEq/L) 3.1 L Chloride (100 - 108 mEq/L) 101 Carbon Dioxide (21 - 33 mEq/l) 34 H Anion Gap (0 - 20) 10 BUN (7 - 18 mg/dL) 36 H Creatinine (0.6 - 1.3 mg/dL) 2.5 H Glomerular Filtr Rate (95 - 105) 25.8 L Glucose (70 - 110 mg/dL) 88 POC Glucose (70 - 110 MG/DL) 87 90 67 L 62 L Calcium (8.0 - 10.5 mg/dL) 8.7 Hematology WBC (4.5 - 11.0 x10 3/uL) 11.4 H RBC (3.54 - 5.02 x10 6/uL) 3.90 Hgb (11.0 - 15.0 g/dL) 9.8 L Hct (33.0 - 45.0 %) 32.3 L MCV (81.0 - 99.0 fL) 82.8 MCH (27.0 - 33.0 pg) 25.1 L MCHC (33.0 - 37.0 g/dL) 30.3 L RDW (11.5 - 14.5 %) 14.6 H Plt Count (150 - 400 x10 3/uL) 310 MPV (7.0 - 9.0 fL) 11.5 H Neut % (Auto) (56.0 - 77.0 %) 39.8 L Lymph % (Auto) (14.0 - 32.0 %) 46.9 H [place] % (Auto) (4.8 - 9.0 %) 12.0 H Eos % (Auto) (0.3 - 3.7 %) 0.2 L Baso % (Auto) (0.0 - 2.0 %) 0.5 Neut # (Auto) (2.0 - 7.6 x10 3/uL) 4.54 Lymph # (Auto) (1.0 - 3.8 x10 3/uL) 5.35 H [place] # (Auto) (0.1 - 0.8 x10 3/uL) 1.37 H Eos # (Auto) (0.0 - 0.2 x10 3/uL) 0.02 Baso # (Auto) (0.0 - 0.2 x10 3/uL) 0.06 Abs Immat Gran (auto) (0.00 - 0.03 0.07 H x10 3/uL) Add Manual Diff NO Immature Gran % (0.0 - 2.0 %) 0.6 Nucleated RBC % (0 - 0 %) 0.0 Nucleated RBCs # (Man) (0.0 - 0.1 0.00 x10 3/uL) 10/17 07 1642 1133 Chemistry POC Glucose (70 - 110 MG/DL) 73 118 H Diagnosis, Assessment Plan Free Text A P: Ulcerations bilateral feet Type II DM Ulceration left foot may benefit from debridemen t Continue with local wound care for now. Discussed with patient that the x-rays showed so ft tissue swelling, but no evidence of bone infection. Will await improvement before any consideration of operative plans ID on board Will follow Electronically Signed by Martir Zamora DPM on 01/30 at 1031 RPT #:[id number] END OF REPORT 2021-10-18 08:02:00-00:00 [facility] ([facility]) Hospitalist Progress Note REPORT#:[id number] REPORT STATUS: Signed DATE:10/18/21 TIME: 801 PATIENT: HARLEEN MANZANO UNIT #: [id number] ROOM/BED: [place] [address] : 80 AGE: 40 SEX: F ATTEND: Laura Trinh ADM AUTHOR: Delisa Shepherd MD * ALL edits or amendments must be made on the [employer]/computer document * Subjective Chief complaint: awaiting PT/OT evaluation. Objective General VS/I O: Vital Signs: Date Time Temp Pulse Resp B/P B/P Pulse O2 O2 F low FiO2 Mean Ox Delivery Rate 10/18 0433 98.4 88 14 145/84 104.6 94 Room air 10/18 0044 98.2 86 18 140/82 101.6 98 10/17 2203 98.8 87 12 156/84 108 98 Room air 10/17 1643 97.7 89 18 159/82 107.7 97 Room air 10/17 1137 97.9 97 18 180/84 115.9 97 Room air PATIENT WEIGHT: Weight (lb): 378 Weight (oz): 0 Weight (kg): 171.458 Medications: Active Meds + DC'd Last 24 Hrs Polyethylene Glycol (MIRALAX) 17 GM DAILY PO (CA N) Insulin Glargine (Lantus/Semglee) 20 UNIT BID BLANKENSHIP BQ Polyethylene Glycol (MIRALAX) 17 GM DAILY PRN P O Senna (SENOKOT 8.6 MG TABLET) 2 TAB DAILY PRN PO (CKD) Insulin Glargine (Lantus/Semglee) 25 UNIT BID BLANKENSHIP BQ (DC) Insulin Human Lispro (HUMALOG) 2 UNIT AC SUBQ Insulin Human Lispro (HUMALOG) 0 AC HS SUBQ Acetaminophen (TYLENOL) 650 MG Q6H PRN PRN PO Furosemide (LASIX 20MG INJ) 20 MG BID 9A 5P IV Sodium Hypochlorite (DAKIN'S 1/2 STRENGTH 0.25% 480 ML TOP SOLN) 1 APPLIC DAILY TOPICAL Fluconazole/Sodium Chloride (FLUCONAZOLE 200MG/N S 100ML) 100 ML DAILY IV Labetalol HCl (LABETALOL HCL) 20 MG Q6H PRN PRN IV Polyethylene Glycol (MIRALAX) 17 GM BID FEED-TUB E (DC) Senna/Docusate Sodium (SENOKOT S) 2 TAB DAILY FE ED-TUBE (DC) Cefazolin Sodium (KEFZOL OR ANCEF) 1 GM Q12H IV (DC) Sodium Chloride (SODIUM CHLORIDE) 10 ML Heparin Sodium (HEPARIN 5000 UNITS/ML) 5,000 UNI T Q8H SUBQ Dextrose/Water (DEXTROSE 50% W SYRINGE) 50 ML DIR PRN IV (CKD) Physical Exam General appearance: no acute distress Head/Eyes: normocephalic ENT: moist mucosal membranes Neck: no JVD Cardiovascular: normal heart sounds, regular rat e rhythm Respiratory: aerating well, clear to auscultatio n, symmetric expansion Abdomen: non-tender, normal bowel sounds, soft, no distention Extremities: b/l feet wound Neuro/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 OPERATOR: alert, oriented X 3, CNII-XII intact, normal speech Skin: dry Psychiatry: normal mood Results Findings/Data: Laboratory Tests 10/1816 2 2018 1642 1133 Chemistry POC Glucose (70 - 110 MG/DL) 90 67 L 62 L 73 11 8 H Laboratory Tests 10/18 0600 Hematology WBC (4.5 - 11.0 x10 3/uL) 11.4 H RBC (3.54 - 5.02 x10 6/uL) 3.90 Hgb (11.0 - 15.0 g/dL) 9.8 L Hct (33.0 - 45.0 %) 32.3 L MCV (81.0 - 99.0 fL) 82.8 MCH (27.0 - 33.0 pg) 25.1 L MCHC (33.0 - 37.0 g/dL) 30.3 L RDW (11.5 - 14.5 %) 14.6 H Plt Count (150 - 400 x10 3/uL) 310 MPV (7.0 - 9.0 fL) 11.5 H Diagnosis, Assessment Plan Consultants: endocrinology, infectious disease, nephrology Free Text DxA P Notes Free text DxA P notes: Assessment and plans: Acute respiratory failure: Intubated for airway protection, sedated ICC on board S/p extubation on 10/14 Now saturating well on room air Sepsis: Blood culture strep species on 10/08, repeat blo od culture from 10/10 negative, urine culture growing yeast, wound cultu re growing diphtheroids, coag negative staph, E. coli, Enterococcus species Received vancomycin x1 s/p ancef ID on board Echo when recommended by ID May need debridement of the left foot wound as per podiatry Unable to MRI, bilateral foot x-ray unremarkabl e for OM On fluconazole for yeast in urine (10/23) JAYLEEN: Likely secondary to above causes. Patient also received Lasix today 10/10 Avoid nephrotoxic drugs Renal ultrasound Was on dopamine for short duration 10/11 IV fluid hydration - LR DC'd Renal managing On IV Lasix 20 mg bid Renal function improved Acute encephalopathy: -due to above causes -treat underlying causes CT head ordered unremarkable 10/11 EEG showing moderate encephalopathy 10/12 Resolved Anemia: No active bleeding noted Monitor H H every 6 hours for 24 hours 10/12 blood transfusion if hemoglobin drops below 7 H H stable Bacteremia Management same as above b/l Foot infected wound Management same as above UTI Management same as above DKA: A1c more than 14 Insulin drip switched to blankenship bcu insulin, Glargine 25 unit bid, lispro 2 unit AC , ISS, hypoglycemia protocol Endocrine managing Constipation: Bowel regimen COVID 19 infection: Patient did not have respiratory distress on ad mission, intubated for airway protection COVID PCR positive Hyponatremia from osmotic hyperglycemia: Corrected sodium is elevated in hyperna tremic range due to severe dehydration Monitor lab -heparin for DVT prophylaxis Diabetic diet Famotidine for GI prophylaxis Morning labs Disposition: On IV antibiotic. On IV Lasix. Eden l function slowly improving. Awaiting PT/OT eval. check labs in am Quality: Gen Med Crit Care VTE Prophylaxis VTE prophylaxis initiated: yes Current Medications Current medication review: I attest that the [facility] is true, accurate, and complete to the best of my knowled ge. Electronically Signed by Delisa Shepherd MD on 0 10/18/21 at 2325 RPT #:[id number] END OF REPORT 2021-10-17 23:29:00-00:00 [facility] Hospitalist Progress Note REPORT#:[id number] REPORT STATUS: Signed DATE:10/17/21 TIME: 2329 PATIENT: HARLEEN MANZANO UNIT #: [id number] ROOM/BED: [address] : 80 AGE: 40 SEX: F ATTEND: Laura Trinh ADM AUTHOR: Delisa Shepherd MD * ALL edits or amendments must be made on the [employer]/computer document * Subjective Chief complaint: awaiting PT/OT evaluation. Objective General VS/I O: Vital Signs: Date Time Temp Pulse Resp B/P B/P Pulse O2 O2 F low FiO2 Mean Ox Delivery Rate 10/17 2203 98.8 87 12 156/84 108 98 Room air 10/17 1643 97.7 89 18 159/82 107.7 97 Room air 10/17 1137 97.9 97 18 180/84 115.9 97 Room air 10/17 0751 98.6 75 18 130/78 95.4 100 Room air 10/17 0340 98.6 88 16 159/87 110.7 99 / 0200 80 24 170/87 118 96 / 0100 81 14 156/76 107 97 / 0033 98 Room air / 0029 84 15 154/77 108 100 07/ 0000 98.9 07/ 0000 87 16 187/84 120 97 24 hour I O ending at 0700: 10/17 0700 07/08 1900 Intake Total 509.31 Output Total 1300 2450 Balance -1300 -1940.69 Intake, IV 109.31 Intake, Oral 400 Number 2 Bowel Movements Output, Urine 1300 2450 PATIENT WEIGHT: Weight (lb): 378 Weight (oz): 0 Weight (kg): 171.458 Medications: Active Meds + DC'd Last 24 Hrs Polyethylene Glycol (MIRALAX) 17 GM DAILY PO (CA N) Insulin Glargine (Lantus/Semglee) 20 UNIT BID BLANKENSHIP BQ Polyethylene Glycol (MIRALAX) 17 GM DAILY PRN PO Senna (SENOKOT 8.6 MG TABLET) 2 TAB DAILY PRN PO (CKD) Dextrose/Sodium Chloride (D5 0.225%NS 1,000mL) 1 ,000 ML .Q8H IV (CAN) Sodium Bicarbonate (SODIUM BICARBONATE) 50 MEQ ONCE ONE IV (CAN) Insulin Glargine (Lantus/Semglee) 25 UNIT BID BLANKENSHIP BQ (DC) Insulin Human Lispro (HUMALOG) 2 UNIT AC SUBQ Insulin Human Lispro (HUMALOG) 0 AC HS SUBQ Acetaminophen (TYLENOL) 650 MG Q6H PRN PRN PO Furosemide (LASIX 20MG INJ) 20 MG BID 9A 5P IV Sodium Hypochlorite (DAKIN'S 1/2 STRENGTH 0.25% 480 ML TOP SOLN) 1 APPLIC DAILY TOPICAL Fluconazole/Sodium Chloride (FLUCONAZOLE 200MG/N S 100ML) 100 ML DAILY IV Labetalol HCl (LABETALOL HCL) 20 MG Q6H PRN PRN IV Polyethylene Glycol (MIRALAX) 17 GM BID FEED-TUB E (DC) Senna/Docusate Sodium (SENOKOT S) 2 TAB DAILY FE ED-TUBE (DC) Cefazolin Sodium (KEFZOL OR ANCEF) 1 GM Q12H IV Sodium Chloride (SODIUM CHLORIDE) 10 ML Heparin Sodium (HEPARIN 5000 UNITS/ML) 5,000 UNI T Q8H SUBQ Dextrose/Water (DEXTROSE 50% W SYRINGE) 50 ML DIR PRN IV (CKD) Physical Exam General appearance: no acute distress Head/Eyes: normocephalic ENT: moist mucosal membranes Neck: no JVD Cardiovascular: normal heart sounds, regular rat e rhythm Respiratory: aerating well, clear to auscultatio n, symmetric expansion Abdomen: non-tender, normal bowel sounds, soft, no distention Extremities: b/l feet wound Neuro/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 OPERATOR: alert, oriented X 3, CNII-XII intact, normal speech Skin: dry Psychiatry: normal mood Results Findings/Data: Laboratory Tests 10/17 1642 1133 0749 0330 Chemistry Sodium (134 - 147 mEq/L) 146 Potassium (3.4 - 5.0 mEq/L) 3.4 Chloride (100 - 108 mEq/L) 107 Carbon Dioxide (21 - 33 mEq/l) 30 Anion Gap (0 - 20) 12 BUN (7 - 18 mg/dL) 34 H Creatinine (0.6 - 1.3 mg/dL) 3.2 H Glomerular Filtr Rate (95 - 105) 19.4 L Glucose (70 - 110 mg/dL) 84 POC Glucose (70 - 110 MG/DL) 62 L 73 118 H 52 L Calcium (8.0 - 10.5 mg/dL) 9.1 10/17 0037 Chemistry POC Glucose (70 - 110 MG/DL) 105 Laboratory Tests 10/17 0330 Hematology WBC (4.5 - 11.0 x10 3/uL) 8.6 RBC (3.54 - 5.02 x10 6/uL) 4.04 Hgb (11.0 - 15.0 g/dL) 10.4 L Hct (33.0 - 45.0 %) 34.1 MCV (81.0 - 99.0 fL) 84.4 MCH (27.0 - 33.0 pg) 25.7 L MCHC (33.0 - 37.0 g/dL) 30.5 L RDW (11.5 - 14.5 %) 15.1 H Plt Count (150 - 400 x10 3/uL) 251 MPV (7.0 - 9.0 fL) 11.3 H Diagnosis, Assessment Plan Free Text DxA P Notes Free text DxA P notes: Assessment and plans: Acute respiratory failure: Intubated for airway protection, sedated ICC on board S/p extubation on 10/14 Now saturating well on room air Sepsis: Blood culture strep species on 10/08, repeat blo od culture from 10/10 negative, urine culture growing yeast, wound cultu re growing diphtheroids, coag negative staph, E. coli, Enterococcus species Received vancomycin x1 Ancef as per ID (10/18); amoxicillin on discharg e ID on board Echo when recommended by ID May need debridement of the left foot wound as per podiatry Unable to MRI, bilateral foot x-ray unremarkabl e for OM On fluconazole for yeast in urine (10/23) JAYLEEN: Likely secondary to above causes. Patient also received Lasix today 10/10 Avoid nephrotoxic drugs Renal ultrasound Was on dopamine for short duration 10/11 IV fluid hydration - LR DC'd Renal managing On IV Lasix 20 mg bid Renal function improved Acute encephalopathy: -due to above causes -treat underlying causes CT head ordered unremarkable 10/11 EEG showing moderate encephalopathy 10/12 Resolved Anemia: No active bleeding noted Monitor H H every 6 hours for 24 hours 10/12 blood transfusion if hemoglobin drops below 7 H H stable Bacteremia Management same as above b/l Foot infected wound Management same as above UTI Management same as above DKA: A1c more than 14 Insulin drip switched to blankenship bcu insulin, Glargine 25 unit bid, lispro 2 unit AC , ISS, hypoglycemia protocol Endocrine managing Constipation: Bowel regimen COVID 19 infection: Patient did not have respiratory distress on ad mission, intubated for airway protection COVID PCR positive Hyponatremia from osmotic hyperglycemia: Corrected sodium is elevated in hyperna tremic range due to severe dehydration Monitor lab -heparin for DVT prophylaxis Diabetic diet Famotidine for GI prophylaxis Morning labs Disposition: On IV antibiotic. On IV Lasix. Eden l function slowly improving. Awaiting PT/OT eval. check labs in am Quality: Gen Med Crit Care VTE Prophylaxis VTE prophylaxis initiated: yes Current Medications Current medication review: I attest that the foregoing medication list in t medical record is true, accurate, and complete to the best of my knowled ge. Electronically Signed by Delisa Shepherd MD on 0 10/17/21 at 2331 RPT #:[id number] END OF REPORT 2021-10-17 13:51:00-00:00 [facility] Endocrinology Progress Note REPORT#:[id number] REPORT STATUS: Signed DATE:10/17/21 TIME: 1351 PATIENT: HARLEEN MANZANO UNIT #: [id number] ROOM/BED: [place] [address] : 80 AGE: 40 SEX: F ATTEND: Laura Trinh ADM AUTHOR: Darvin Mooney MD * ALL edits or amendments must be made on the [email or web address]/computer document * Subjective Chief complaint: f/u DM I on diet Objective General VS: Last Documented: Result Date Time Pulse Ox 97 10/17 1137 B/P 180/84 10/17 1137 B/P Mean 115.9 10/17 1137 O2 Delivery Room air 10/17 113 Temp 36.6 10/17 1137 Pulse 97 10/17 1137 Resp 18 10/17 1137 FiO2 21 10/15 0920 O2 Flow Rate 15.0 10/11 1600 PATIENT WEIGHT: Weight (lb): 378 Weight (oz): 0 Weight (kg): 171.458 Medications: Active Meds + DC'd Last 24 Hrs Polyethylene Glycol (MIRALAX) 17 GM DAILY PO (C AN) Insulin Glargine (Lantus/Semglee) 20 UNIT BID BLANKENSHIP BQ Polyethylene Glycol (MIRALAX) 17 GM DAILY PRN PO Senna (SENOKOT 8.6 MG TABLET) 2 TAB DAILY PRN PO (CKD) Dextrose/Sodium Chloride (D5 0.225%NS 1,000mL) 1 ,000 ML .Q8H IV (CAN) Sodium Bicarbonate (SODIUM BICARBONATE) 50 MEQ O NCE ONE IV (CAN) Insulin Glargine (Lantus/Semglee) 25 UNIT BID [place] BQ (DC) Insulin Human Lispro (HUMALOG) 2 UNIT AC SUBQ Insulin Glargine (Lantus/Semglee) 35 UNIT BID [place] BQ (DC) Insulin Human Lispro (HUMALOG) 5 UNIT AC SUBQ (D C) Insulin Human Lispro (HUMALOG) 0 AC HS SUBQ Acetaminophen (TYLENOL) 650 MG Q6H PRN PRN PO Furosemide (LASIX 20MG INJ) 20 MG BID 9A 5P IV Sodium Hypochlorite (DAKIN'S 1/2 STRENGTH 0.25% 480 ML TOP SOLN) 1 APPLIC DAILY TOPICAL Fluconazole/Sodium Chloride (FLUCONAZOLE 200MG/N S 100ML) 100 ML DAILY IV Labetalol HCl (LABETALOL HCL) 20 MG Q6H PRN PRN IV Polyethylene Glycol (MIRALAX) 17 GM BID FEED-TUB E (DC) Senna/Docusate Sodium (SENOKOT S) 2 TAB DAILY FE ED-TUBE (DC) Cefazolin Sodium (KEFZOL OR ANCEF) 1 GM Q12H IV Sodium Chloride (SODIUM CHLORIDE) 10 ML Heparin Sodium (HEPARIN 5000 UNITS/ML) 5,000 UNI T Q8H SUBQ Dextrose/Water (DEXTROSE 50% W SYRINGE) 50 ML DIR PRN IV (CKD) Physical Exam General appearance: sleeping comfortably Findings/data: Laboratory Tests: 10/17 10/17 10/17 10/17 10/16 1133 0749 0330 0037 2008 Chemistry Sodium (134 - 147 mEq/L) 146 Potassium (3.4 - 5.0 mEq/L) 3.4 Chloride (100 - 108 mEq/L) 107 Carbon Dioxide (21 - 33 mEq/l) 30 Anion Gap (0 - 20) 12 BUN (7 - 18 mg/dL) 34 H Creatinine (0.6 - 1.3 mg/dL) 3.2 H Glomerular Filtr Rate (95 - 105) 19.4 L Glucose (70 - 110 mg/dL) 84 POC Glucose (70 - 110 MG/DL) 118 H 52 L 105 107 Calcium (8.0 - 10.5 mg/dL) 9.1 Hematology WBC (4.5 - 11.0 x10 3/uL) 8.6 RBC (3.54 - 5.02 x10 6/uL) 4.04 Hgb (11.0 - 15.0 g/dL) 10.4 L Hct (33.0 - 45.0 %) 34.1 MCV (81.0 - 99.0 fL) 84.4 MCH (27.0 - 33.0 pg) 25.7 L MCHC (33.0 - 37.0 g/dL) 30.5 L RDW (11.5 - 14.5 %) 15.1 H Plt Count (150 - 400 x10 3/uL) 251 MPV (7.0 - 9.0 fL) 11.3 H 07/08 1633 Chemistry POC Glucose (70 - 110 MG/DL) 142 H Diagnosis, Assessment Plan Free Text A P: 1.DM I in DKA HgbA1c >14 adjust lantus adjust Humalog monitor glucose diabetic diet diabetic teaching DC Plan:Lantus and Humalog, follow in office at the next available appointment. 2.Sick euthyroid recheck in 6 weeks 3.Acute respiratory failure intubated 4.Altered mental status non-contrast CTH unremarkable patient not MRI-compatible resolved neurology following 5.JAYLEEN with worsening renal function nephrology following 6.COVID-19 7.Bacteremia with alpha Streptococcus species on abx ID following 8.Wounds present to L + R foot debridement on abx Podiatry following Electronically Signed by Darvin Mooney MD on 0 10/17/21 at 1351 RPT #:[id number] END OF REPORT 2021-10-17 10:59:00-00:00 [facility] ([facility] Podiatry Progress Note REPORT#:[id number] REPORT STATUS: Signed DATE:10/17/21 TIME: 1059 PATIENT: HARLEEN MANZANO UNIT #: [id number] ROOM/BED: [place] [address] : 80 AGE: 40 SEX: F ATTEND: Laura Trinh ADM AUTHOR: Martir Zamora DPM * ALL edits or amendments must be made on the [email or web address] document * Subjective Chief complaint: left and right foot ulcers Patient reports: no abdominal pain, no chest eliana n, no cough, no fatigue, no fever, no nausea, no shortness of breath Objective General VS: Last Documented: Result Date Time Pulse Ox 100 10/17 750 B/P 130/78 10/17 750 B/P Mean 95.4 10/17 750 O2 Delivery Room air 10/17 750 Temp 98.6 10/17 750 Pulse 75 10/17 750 Resp 18 10/17 750 FiO2 21 10/16 919 O2 Flow Rate 15.0 10/11 1600 PATIENT WEIGHT: Weight (lb): 378 Weight (oz): 0 Weight (kg): 171.458 Medications: Active Meds + DC'd Last 24 Hrs Dextrose/Sodium Chloride (D5 0.225%NS 1,000mL) 1 ,000 ML .Q8H IV (CAN) Sodium Bicarbonate (SODIUM BICARBONATE) 50 MEQ O NCE ONE IV (CAN) Insulin Glargine (Lantus/Semglee) 25 UNIT BID BLANKENSHIP BQ Insulin Human Lispro (HUMALOG) 2 UNIT AC SUBQ Insulin Glargine (Lantus/Semglee) 35 UNIT BID BLANKENSHIP BQ (DC) Insulin Human Lispro (HUMALOG) 5 UNIT AC SUBQ (D C) Insulin Human Lispro (HUMALOG) 0 AC HS SUBQ Acetaminophen (TYLENOL) 650 MG Q6H PRN PRN PO Furosemide (LASIX 20MG INJ) 20 MG BID 9A 5P IV Sodium Hypochlorite (DAKIN'S 1/2 STRENGTH 0.25% 480 ML TOP SOLN) 1 APPLIC DAILY TOPICAL Fluconazole/Sodium Chloride (FLUCONAZOLE 200MG/N S 100ML) 100 ML DAILY IV Labetalol HCl (LABETALOL HCL) 20 MG Q6H PRN PRN IV Polyethylene Glycol (MIRALAX) 17 GM BID FEED-TUB E Senna/Docusate Sodium (SENOKOT S) 2 TAB DAILY FE ED-TUBE Cefazolin Sodium (KEFZOL OR ANCEF) 1 GM Q12H IV Sodium Chloride (SODIUM CHLORIDE) 10 ML Heparin Sodium (HEPARIN 5000 UNITS/ML) 5,000 UNI T Q8H SUBQ Dextrose/Water (DEXTROSE 50% W SYRINGE) 50 ML DIR PRN IV (CKD) I O: 24 hour I O ending at 0700: 10/17 0700 10/16 1900 Intake Total 509.31 Output Total 1300 2450 Balance -1300 -1940.69 Intake, IV 109.31 Intake, Oral 400 Number 2 Bowel Movements Output, Urine 1300 2450 Nutrition assessment: The data set between the solid lines has been im ported from the dietitian's assessment. Any exceptions have been noted under Provider comments. BMI Calculated: 55.8 Nutrition related diagnosis: Morbid obesity Nutrition diagnosis details: BMI 40 or more Nutrition problem: Inadequate energy intake Nutrition etiology: Acute illness Nutrition signs and symptoms: <10% MEAL INTAKE Nutrition prescription: LIBERALIZE DIET TO REGU LAR ENSURE TID Dietitian name: Clevelanddavid Fitzgeraldd, DIET Assessment completed: 10/15/21 Provider comments on imported dietitian assessme nt: Physical Exam General appearance: alert, awake, oriented Wound/incision: Location: left and right foot Musculoskeletal: Musculoskeletal: decreased ROM Skin: erythema Ulcer: Location: foot Results Findings/Data: Laboratory Tests: 10/17 10/17 10/17 10/16 10/16 0749 0330 0037 2008 1633 Chemistry Sodium (134 - 147 mEq/L) 146 Potassium (3.4 - 5.0 mEq/L) 3.4 Chloride (100 - 108 mEq/L) 107 Carbon Dioxide (21 - 33 mEq/l) 30 Anion Gap (0 - 20) 12 BUN (7 - 18 mg/dL) 34 H Creatinine (0.6 - 1.3 mg/dL) 3.2 H Glomerular Filtr Rate (95 - 105) 19.4 L Glucose (70 - 110 mg/dL) 84 POC Glucose (70 - 110 MG/DL) 52 L 105 107 142 H Calcium (8.0 - 10.5 mg/dL) 9.1 Hematology WBC (4.5 - 11.0 x10 3/uL) 8.6 RBC (3.54 - 5.02 x10 6/uL) 4.04 Hgb (11.0 - 15.0 g/dL) 10.4 L Hct (33.0 - 45.0 %) 34.1 MCV (81.0 - 99.0 fL) 84.4 MCH (27.0 - 33.0 pg) 25.7 L MCHC (33.0 - 37.0 g/dL) 30.5 L RDW (11.5 - 14.5 %) 15.1 H Plt Count (150 - 400 x10 3/uL) 251 MPV (7.0 - 9.0 fL) 11.3 H 07/08 1326 Chemistry POC Glucose (70 - 110 MG/DL) 76 Radiology data: IMPRESSION: XR Right Foot 1. Soft tissue swelling. 2. No radiographic evidence for osteomyelitis. XR Left Foot 1. Soft tissue swelling. 2. No radiographic evidence for osteomyelitis. Diagnosis, Assessment Plan Free Text A P: Ulcerations bilateral feet Ulceration left foot may benefit from debridemen t Continue with local wound care for now. Discussed with patient that the x-rays showed so ft tissue swelling, but no evidence of bone infection. Will await improvement before any consideration of operative plans ID on board Will follow Electronically Signed by Martir Zamora DPM on 12/31 at 1102 RPT #:[id number] END OF REPORT 2021-10-17 06:56:00-00:00 [facility] ([facility]) Nephrology Progress Note REPORT#:[id number] REPORT STATUS: Signed DATE:10/17/21 TIME: 655 PATIENT: HARLEEN MANZANO UNIT #: [id number] ROOM/BED: [facility] : 80 AGE: 40 SEX: F ATTEND: Laura Trinh ADM AUTHOR: Gen Agosto MD * ALL edits or amendments must be made on the [email or web address]/computer document * Subjective Chief complaint: Chart reviewed Events noted Objective General VS/I O: Vital Signs: Date Time Temp Pulse Resp B/P B/P Pulse O2 O2 F low FiO2 Mean Ox Delivery Rate 10/17 0340 98.6 88 16 159/87 110.7 99 07/09 0200 80 24 170/87 118 96 07/09 0100 81 14 156/76 107 97 07/09 0033 98 Room air 07/09 0029 84 15 154/77 108 100 07/09 0000 98.9 07/09 0000 87 16 187/84 120 97 07/08 2301 88 20 174/80 115 97 07/08 2203 90 23 142/71 101 96 07/08 2100 88 14 96 07/08 2000 99.2 07/08 2000 86 15 98 07/08 1900 98 22 97 07/08 1836 88 14 170/73 105 96 07/08 1705 91 33 161/71 97 98 07/08 1632 93 26 177/86 123 97 07/08 1600 98.3 07/08 1445 91 20 132/71 94 95 07/08 1331 86 20 182/84 121 99 07/08 1200 98.0 07/08 1038 86 15 167/76 109 99 07/08 0904 93 16 175/79 113 100 07/08 0800 98.1 07/08 0734 102 23 179/86 123 94 24 hour I O ending at 0700: 07/09 0700 07/08 1900 Intake Total 509.31 Output Total 1300 2450 Balance -1300 -1940.69 Intake, IV 109.31 Intake, Oral 400 Number 2 Bowel Movements Output, Urine 1300 2450 PATIENT WEIGHT: Weight (lb): 378 Weight (oz): 0 Weight (kg): 171.458 Medications Active Meds + DC'd Last 24 Hrs Dextrose/Sodium Chloride (D5 0.225%NS 1,000mL) 1 ,000 ML .Q8H IV (CAN) Sodium Bicarbonate (SODIUM BICARBONATE) 50 MEQ O NCE ONE IV (CAN) Insulin Glargine (Lantus/Semglee) 25 UNIT BID BLANKENSHIP BQ Insulin Human Lispro (HUMALOG) 2 UNIT AC SUBQ Insulin Glargine (Lantus/Semglee) 35 UNIT BID BLANKENSHIP BQ (DC) Insulin Human Lispro (HUMALOG) 5 UNIT AC SUBQ (D C) Insulin Human Lispro (HUMALOG) 0 AC HS SUBQ Acetaminophen (TYLENOL) 650 MG Q6H PRN PRN PO Furosemide (LASIX 20MG INJ) 20 MG BID 9A 5P IV Sodium Hypochlorite (DAKIN'S 1/2 STRENGTH 0.25% 480 ML TOP SOLN) 1 APPLIC DAILY TOPICAL Fluconazole/Sodium Chloride (FLUCONAZOLE 200MG/N S 100ML) 100 ML DAILY IV Labetalol HCl (LABETALOL HCL) 20 MG Q6H PRN PRN IV Polyethylene Glycol (MIRALAX) 17 GM BID FEED-TUB E Senna/Docusate Sodium (SENOKOT S) 2 TAB DAILY FE ED-TUBE Cefazolin Sodium (KEFZOL OR ANCEF) 1 GM Q12H IV Sodium Chloride (SODIUM CHLORIDE) 10 ML Heparin Sodium (HEPARIN 5000 UNITS/ML) 5,000 UNI T Q8H SUBQ Dextrose/Water (DEXTROSE 50% W SYRINGE) 50 ML DIR PRN IV (CKD) Physical Exam ENT: moist mucous membranes Cardiovascular: regular rate and rhythm Respiratory: decreased breath sounds Abdomen: soft, obese Genitourinary: urinary catheter Extremities: swelling Neuro/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 OPERATOR: alert, oriented X 3 Psychiatry: unable to evaluate Results Findings/Data: Laboratory Tests 10/17 1633 1326 Chemistry Sodium (134 - 147 mEq/L) 146 Potassium (3.4 - 5.0 mEq/L) 3.4 Chloride (100 - 108 mEq/L) 107 Carbon Dioxide (21 - 33 mEq/l) 30 Anion Gap (0 - 20) 12 BUN (7 - 18 mg/dL) 34 H Creatinine (0.6 - 1.3 mg/dL) 3.2 H Glomerular Filtr Rate (95 - 105) 19.4 L Glucose (70 - 110 mg/dL) 84 POC Glucose (70 - 110 MG/DL) 105 107 142 H 76 Calcium (8.0 - 10.5 mg/dL) 9.1 10/16 10/16 0843 0740 Chemistry Sodium (134 - 147 mEq/L) 145 Potassium (3.4 - 5.0 mEq/L) 3.5 Chloride (100 - 108 mEq/L) 106 Carbon Dioxide (21 - 33 mEq/l) 32 Anion Gap (0 - 20) 11 BUN (7 - 18 mg/dL) 51 H Creatinine (0.6 - 1.3 mg/dL) 3.8 H Glomerular Filtr Rate (95 - 105) 15.9 L Glucose (70 - 110 mg/dL) 96 POC Glucose (70 - 110 MG/DL) 92 Calcium (8.0 - 10.5 mg/dL) 9.6 Ionized Calcium Jay (1.12 - 1.32 MMOL/L) 1.21 Phosphorus (2.5 - 4.9 MG/DL) 4.5 Magnesium (1.80 - 2.40 mg/dL) 2.32 Total Bilirubin (0.0 - 1.0 mg/dL) 0.20 AST (15 - 37 IUnit/L) 22 ALT (30 - 65 IUnit/L) < 7 L Total Alk Phosphatase (20 - 125 IUnit/L) 142 H Total Protein (6.4 - 8.2 g/dL) 7.6 Albumin (3.4 - 5.0 g/dL) 2.80 L Laboratory Tests 10/17 10/16 0330 0740 Hematology WBC (4.5 - 11.0 x10 3/uL) 8.6 12.2 H RBC (3.54 - 5.02 x10 6/uL) 4.04 3.88 Hgb (11.0 - 15.0 g/dL) 10.4 L 10.1 L Hct (33.0 - 45.0 %) 34.1 31.6 L MCV (81.0 - 99.0 fL) 84.4 81.4 MCH (27.0 - 33.0 pg) 25.7 L 26.0 L MCHC (33.0 - 37.0 g/dL) 30.5 L 32.0 L RDW (11.5 - 14.5 %) 15.1 H 15.1 H Plt Count (150 - 400 x10 3/uL) 251 291 MPV (7.0 - 9.0 fL) 11.3 H 11.0 H Neut % (Auto) (56.0 - 77.0 %) 49.7 L Lymph % (Auto) (14.0 - 32.0 %) 29.4 [place] % (Auto) (4.8 - 9.0 %) 18.2 H Eos % (Auto) (0.3 - 3.7 %) 0.3 Baso % (Auto) (0.0 - 2.0 %) 0.5 Neut # (Auto) (2.0 - 7.6 x10 3/uL) 6.06 Lymph # (Auto) (1.0 - 3.8 x10 3/uL) 3.58 [place] # (Auto) (0.1 - 0.8 x10 3/uL) 2.22 H Eos # (Auto) (0.0 - 0.2 x10 3/uL) 0.04 Baso # (Auto) (0.0 - 0.2 x10 3/uL) 0.06 Abs Immat Gran (auto) (0.00 - 0.03 x10 3/uL) 0. 23 H Add Manual Diff NO Immature Gran % (0.0 - 2.0 %) 1.9 Nucleated RBC % (0 - 0 %) 0.0 Nucleated RBCs # (Man) (0.0 - 0.1 x10 3/uL) 0.0 0 Diagnosis, Assessment Plan Free Text A P: JAYLEEN Fluid overload Hypokalemia Hypophosphatemia DKA Respiratory failure COVID+ Bacteremia, alpha Strep Left foot wound culture with E.coli and Enteroco ccus JAYLEEN likely 2/2 ATN Cr continues to trend down now Lytes and acid/base status acceptable Continue scheduled IV Lasix Strict I/Os No indication for dialysis at this time Electronically Signed by Gen Agosto MD on 12/31 at 1710 RPT #:[id number] END OF REPORT 2021-10-16 17:08:00-00:00 [facility] ([facility]) Infectious Dis. Progress Note REPORT#:[id number] REPORT STATUS: Signed DATE:10/16/21 TIME: 1708 PATIENT: HARLEEN MANZANO UNIT #: [id number] ROOM/BED: [place] [id number] : 80 AGE: 40 SEX: F ATTEND: Laura Trinh ADM AUTHOR: Pradip Akhtar MD, MD * ALL edits or amendments must be made on the el ectronic/computer document * Subjective Chief complaint: DKA HPI: 40-year-old female with past medical history sig nificant for diabetes who was found unresponsive by her da kathy for unknown period of time. Her glucose 1095 and WBC 20 1K. Patient was resuscitated, intubated and central line was placed in ED. Patient reports: No: complaints. Review of Systems Constitutional: Denies: chills, fatigue. Skin: Denies: abrasion, bruising. Allergy/Immun: Denies: allergic reaction, anaphylaxis. Eyes: Denies: redness, discharge. ENT: Denies: ear drainage, ear ringing. Respiratory: Denies: MCALLISTER (dyspnea on exertion), hemoptysis. Objective General VS/I O: Vital Signs Date Temp Pulse Resp B/P B/P Mean Pulse Ox FiO2 07/-10/16 98.0-98.4 86-103 15-24 132-182/65-8 6 94-123 94-100 Last Documented: Result Date Time Pulse Ox 95 07/08 1445 B/P 132/71 07/08 1445 B/P Mean 94 07/08 1445 Pulse 91 07/08 1445 Resp 20 /08 1445 Temp 98.0 07/08 1200 FiO2 21 07/07 0920 O2 Delivery Room air /07 0920 O2 Flow Rate 15.0 07/03 1600 Vital Signs: Date Time Temp Pulse Resp B/P B/P Pulse O2 O2 F low FiO2 Mean Ox Delivery Rate /08 1445 91 20 132/71 94 95 07/08 1331 86 20 182/84 121 99 07/08 1200 98.0 07/08 1038 86 15 167/76 109 99 07/08 0904 93 16 175/79 113 100 07/08 0800 98.1 07/08 0734 102 23 179/86 123 94 07/08 0638 92 20 154/74 106 98 07/08 0400 98.3 07/08 0015 97 16 146/65 94 96 07/08 0000 98.4 07/07 2242 102 19 163/81 114 98 07/07 2146 103 15 147/79 107 99 07/07 1999 98.2 07/07 1804 101 24 167/77 111 99 24 hour I O ending at 0700: 07/08 0700 07/07 1900 Intake Total 971.61 Output Total 1999 5120 Balance -19994148.39 Intake, IV 471.61 Intake, Oral 500 Number 1 Bowel Movements Output, Urine 1999 5120 Patient 171.458 kg Weight PATIENT WEIGHT: Weight (lb): 378 Weight (oz): 0 Weight (kg): 171.458 Medications: Active Meds + DC'd Last 24 Hrs Insulin Glargine (Lantus/Semglee) 25 UNIT BID BLANKENSHIP BQ Insulin Human Lispro (HUMALOG) 2 UNIT AC SUBQ Insulin Glargine (Lantus/Semglee) 35 UNIT BID BLANKENSHIP BQ (DC) Insulin Human Lispro (HUMALOG) 5 UNIT AC SUBQ (D C) Insulin Human Lispro (HUMALOG) 0 AC HS SUBQ Acetaminophen (TYLENOL) 650 MG Q6H PRN PRN PO Furosemide (LASIX 20MG INJ) 20 MG BID 9A 5P IV Sodium Hypochlorite (DAKIN'S 1/2 STRENGTH 0.25% 480 ML TOP SOLN) 1 APPLIC DAILY TOPICAL Fluconazole/Sodium Chloride (FLUCONAZOLE 200MG/N S 100ML) 100 ML DAILY IV Labetalol HCl (LABETALOL HCL) 20 MG Q6H PRN PRN IV Polyethylene Glycol (MIRALAX) 17 GM BID FEED-TUB E Senna/Docusate Sodium (SENOKOT S) 2 TAB DAILY FE ED-TUBE Cefazolin Sodium (KEFZOL OR ANCEF) 1 GM Q12H IV Sodium Chloride (SODIUM CHLORIDE) 10 ML Heparin Sodium (HEPARIN 5000 UNITS/ML) 5,000 UNI T Q8H SUBQ Dextrose/Water (DEXTROSE 50% W SYRINGE) 50 ML DIR PRN IV (CKD) Physical Exam General appearance: no acute distress Head/Eyes: atraumatic, normocephalic Neck: non-tender, supple/no meningismus Cardiovascular: normal heart sounds, no murmur Respiratory: clear to auscultation, symmetric ex pansion Abdomen: non-tender, soft Extremities: no clubbing Results Findings/Data: Laboratory Tests 10/16 10/16 10/16 10/16 10/15 1633 1326 0843 0740 2110 Chemistry Sodium (134 - 147 mEq/L) 145 Potassium (3.4 - 5.0 mEq/L) 3.5 Chloride (100 - 108 mEq/L) 106 Carbon Dioxide (21 - 33 mEq/l) 32 Anion Gap (0 - 20) 11 BUN (7 - 18 mg/dL) 51 H Creatinine (0.6 - 1.3 mg/dL) 3.8 H Glomerular Filtr Rate (95 - 105) 15.9 L Glucose (70 - 110 mg/dL) 96 POC Glucose (70 - 110 MG/DL) 142 H 76 92 164 H Calcium (8.0 - 10.5 mg/dL) 9.6 Ionized Calcium Jay (1.12 - 1.32 MMOL/L) 1.21 Phosphorus (2.5 - 4.9 MG/DL) 4.5 Magnesium (1.80 - 2.40 mg/dL) 2.32 Total Bilirubin (0.0 - 1.0 mg/dL) 0.20 AST (15 - 37 IUnit/L) 22 ALT (30 - 65 IUnit/L) < 7 L Total Alk Phosphatase (20 - 125 IUnit/L) 142 H Total Protein (6.4 - 8.2 g/dL) 7.6 Albumin (3.4 - 5.0 g/dL) 2.80 L Laboratory Tests 10/16 0740 Hematology WBC (4.5 - 11.0 x10 3/uL) 12.2 H RBC (3.54 - 5.02 x10 6/uL) 3.88 Hgb (11.0 - 15.0 g/dL) 10.1 L Hct (33.0 - 45.0 %) 31.6 L MCV (81.0 - 99.0 fL) 81.4 MCH (27.0 - 33.0 pg) 26.0 L MCHC (33.0 - 37.0 g/dL) 32.0 L RDW (11.5 - 14.5 %) 15.1 H Plt Count (150 - 400 x10 3/uL) 291 MPV (7.0 - 9.0 fL) 11.0 H Neut % (Auto) (56.0 - 77.0 %) 49.7 L Lymph % (Auto) (14.0 - 32.0 %) 29.4 [place] % (Auto) (4.8 - 9.0 %) 18.2 H Eos % (Auto) (0.3 - 3.7 %) 0.3 Baso % (Auto) (0.0 - 2.0 %) 0.5 Neut # (Auto) (2.0 - 7.6 x10 3/uL) 6.06 Lymph # (Auto) (1.0 - 3.8 x10 3/uL) 3.58 [place] # (Auto) (0.1 - 0.8 x10 3/uL) 2.22 H Eos # (Auto) (0.0 - 0.2 x10 3/uL) 0.04 Baso # (Auto) (0.0 - 0.2 x10 3/uL) 0.06 Abs Immat Gran (auto) (0.00 - 0.03 x10 3/uL) 0. 23 H Add Manual Diff NO Immature Gran % (0.0 - 2.0 %) 1.9 Nucleated RBC % (0 - 0 %) 0.0 Nucleated RBCs # (Man) (0.0 - 0.1 x10 3/uL) 0.0 0 Results: labs reviewed, turner l signs reviewed, x-ray personally reviewed, current med profile rev'd Treatment Prophylaxis Treatment Prophylaxis CVC/PICC documentation: The data below has been imported from nursing do cumentation. Any exceptions have been noted below under Provider comments. CVC/PICC insertion date/time: No CVC/PICC Provider comments on imported nursing data: [] Diagnosis, Assessment Plan Problem List/A P: 1. DKA (diabetic ketoacidosis) 2. COVID 3. JAYLEEN (acute kidney injury) 4. Severe sepsis 5. Metabolic encephalopathy Free Text A P: Severe DKA, intubated due to AMS COVID without pnuemonia or hypoxia Strep mitis on blood 10/08, repeat 10/10 negative L foot wound culture E coli and Enterococcus JAYLEEN, Nephrology monitoring for HD need AMS improved and extubated 10/14 On Ancef while inpt plan on Amoxil for DC will follow Electronically Signed by Pradip Akhtar MD, MD on at 1712 RPT #:[id number] END OF REPORT 2021-10-16 16:35:00-00:00 [facility] ([facility] Nephrology Progress Note REPORT#:[id number] REPORT STATUS: Signed DATE:10/16/21 TIME: 1635 PATIENT: HARLEEN MANZANO UNIT #: [id number] ROOM/BED: [place] [id number] : 80 AGE: 40 SEX: F ATTEND: Laura Trinh ADM AUTHOR: Mary Steiner MD * ALL edits or amendments must be made on the el [employer]/computer document * Subjective Chief complaint: Chart reviewed Events noted Objective General VS/I O: Vital Signs: Date Time Temp Pulse Resp B/P B/P Pulse O2 O2 F low FiO2 Mean Ox Delivery Rate 10/16 1445 91 20 132/71 94 95 07/08 1331 86 20 182/84 121 99 07/08 1200 36.7 07/08 1038 86 15 167/76 109 99 07/08 0904 93 16 175/79 113 100 07/08 0800 36.7 07/08 0734 102 23 179/86 123 94 07/08 0638 92 20 154/74 106 98 07/08 0400 36.8 07/08 0015 97 16 146/65 94 96 07/08 0000 36.9 07/07 2242 102 19 163/81 114 98 07/07 2146 103 15 147/79 107 99 07/07 2000 36.8 07/07 1804 101 24 167/77 111 99 07/07 1700 96 20 149/72 103 97 24 hour I O ending at 0700: 07/08 0700 07/07 1900 Intake Total 971.61 Output Total 1999 5120 Balance -1999 -4148.39 Intake, IV 471.61 Intake, Oral 500 Number 1 Bowel Movements Output, Urine 1999 5120 Patient 171.458 kg Weight PATIENT WEIGHT: Weight (lb): 378 Weight (oz): 0 Weight (kg): 171.458 Medications Active Meds + DC'd Last 24 Hrs Insulin Glargine (Lantus/Semglee) 25 UNIT BID BLANKENSHIP BQ Insulin Human Lispro (HUMALOG) 2 UNIT AC SUBQ Insulin Glargine (Lantus/Semglee) 35 UNIT BID BLANKENSHIP BQ (DC) Insulin Human Lispro (HUMALOG) 5 UNIT AC SUBQ (D C) Insulin Human Lispro (HUMALOG) 0 AC HS SUBQ Acetaminophen (TYLENOL) 650 MG Q6H PRN PRN PO Furosemide (LASIX 20MG INJ) 20 MG BID 9A 5P IV Sodium Hypochlorite (DAKIN'S 1/2 STRENGTH 0.25% 480 ML TOP SOLN) 1 APPLIC DAILY TOPICAL Fluconazole/Sodium Chloride (FLUCONAZOLE 200MG/N S 100ML) 100 ML DAILY IV Labetalol HCl (LABETALOL HCL) 20 MG Q6H PRN PRN IV Polyethylene Glycol (MIRALAX) 17 GM BID FEED-TUB E Senna/Docusate Sodium (SENOKOT S) 2 TAB DAILY FE ED-TUBE Cefazolin Sodium (KEFZOL OR ANCEF) 1 GM Q12H IV Sodium Chloride (SODIUM CHLORIDE) 10 ML Heparin Sodium (HEPARIN 5000 UNITS/ML) 5,000 UNI T Q8H SUBQ Dextrose/Water (DEXTROSE 50% W SYRINGE) 50 ML DIR PRN IV (CKD) Physical Exam General appearance: no acute distress ENT: moist mucous membranes Cardiovascular: regular rate and rhythm Respiratory: decreased breath sounds Abdomen: soft, obese Genitourinary: urinary catheter Extremities: swelling Neuro/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 OPERATOR: alert, oriented X 3 Results Findings/Data: Laboratory Tests 10/16 10/16 10/16 10/15 10/15 1326 0843 0740 2110 1645 Chemistry Sodium (134 - 147 mEq/L) 145 Potassium (3.4 - 5.0 mEq/L) 3.5 Chloride (100 - 108 mEq/L) 106 Carbon Dioxide (21 - 33 mEq/l) 32 Anion Gap (0 - 20) 11 BUN (7 - 18 mg/dL) 51 H Creatinine (0.6 - 1.3 mg/dL) 3.8 H Glomerular Filtr Rate (95 - 105) 15.9 L Glucose (70 - 110 mg/dL) 96 POC Glucose (70 - 110 MG/DL) 76 92 164 H 139 H Calcium (8.0 - 10.5 mg/dL) 9.6 Ionized Calcium Jay (1.12 - 1.32 MMOL/L) 1.21 Phosphorus (2.5 - 4.9 MG/DL) 4.5 Magnesium (1.80 - 2.40 mg/dL) 2.32 Total Bilirubin (0.0 - 1.0 mg/dL) 0.20 AST (15 - 37 IUnit/L) 22 ALT (30 - 65 IUnit/L) < 7 L Total Alk Phosphatase (20 - 125 IUnit/L) 142 H Total Protein (6.4 - 8.2 g/dL) 7.6 Albumin (3.4 - 5.0 g/dL) 2.80 L Laboratory Tests 10/16 0740 Hematology WBC (4.5 - 11.0 x10 3/uL) 12.2 H RBC (3.54 - 5.02 x10 6/uL) 3.88 Hgb (11.0 - 15.0 g/dL) 10.1 L Hct (33.0 - 45.0 %) 31.6 L MCV (81.0 - 99.0 fL) 81.4 MCH (27.0 - 33.0 pg) 26.0 L MCHC (33.0 - 37.0 g/dL) 32.0 L RDW (11.5 - 14.5 %) 15.1 H Plt Count (150 - 400 x10 3/uL) 291 MPV (7.0 - 9.0 fL) 11.0 H Neut % (Auto) (56.0 - 77.0 %) 49.7 L Lymph % (Auto) (14.0 - 32.0 %) 29.4 [place] % (Auto) (4.8 - 9.0 %) 18.2 H Eos % (Auto) (0.3 - 3.7 %) 0.3 Baso % (Auto) (0.0 - 2.0 %) 0.5 Neut # (Auto) (2.0 - 7.6 x10 3/uL) 6.06 Lymph # (Auto) (1.0 - 3.8 x10 3/uL) 3.58 [place] # (Auto) (0.1 - 0.8 x10 3/uL) 2.22 H Eos # (Auto) (0.0 - 0.2 x10 3/uL) 0.04 Baso # (Auto) (0.0 - 0.2 x10 3/uL) 0.06 Abs Immat Gran (auto) (0.00 - 0.03 x10 3/uL) 0. 23 H Add Manual Diff NO Immature Gran % (0.0 - 2.0 %) 1.9 Nucleated RBC % (0 - 0 %) 0.0 Nucleated RBCs # (Man) (0.0 - 0.1 x10 3/uL) 0.0 0 Diagnosis, Assessment Plan Free Text A P: JAYLEEN Fluid overload Hypokalemia Hypophosphatemia DKA Respiratory failure COVID+ Bacteremia, alpha Strep Left foot wound culture with E.coli and Enteroco ccus JAYLEEN likely 2/2 ATN Cr continues to trend down now Lytes and acid/base status acceptable Continue scheduled IV Lasix Strict I/Os No indication for dialysis at this time Electronically Signed by Mary Steiner MD on 0 10/16/21 at 1637 RPT #:[id number] END OF REPORT 2021-10-16 15:09:00-00:00 [facility] Endocrinology Progress Note REPORT#:[id number] REPORT STATUS: Signed DATE:10/16/21 TIME: 1509 PATIENT: HARLEEN MANZANO UNIT #: [id number] ROOM/BED: [place] [address] : 80 AGE: 40 SEX: F ATTEND: Laura Trinh ADM AUTHOR: Gino Hernandez * ALL edits or amendments must be made on the [email or web address] document * Subjective Chief complaint: f/u DM I on diet Objective General VS: Last Documented: Result Date Time Pulse Ox 99 10/16 1038 B/P 167/76 10/16 1038 B/P Mean 109 10/16 1038 Pulse 86 10/16 1038 Resp 15 10/16 1038 Temp 98.3 10/16 0400 FiO2 21 10/15 0920 O2 Delivery Room air 10/15 0920 O2 Flow Rate 15.0 10/11 1600 PATIENT WEIGHT: Weight (lb): 378 Weight (oz): 0 Weight (kg): 171.458 Medications: Active Meds + DC'd Last 24 Hrs Insulin Glargine (Lantus/Semglee) 25 UNIT BID BLANKENSHIP BQ Insulin Human Lispro (HUMALOG) 2 UNIT AC SUBQ (U NV) Insulin Glargine (Lantus/Semglee) 35 UNIT BID BLANK[place]IP BQ (DC) Insulin Human Lispro (HUMALOG) 5 UNIT AC SUBQ (D Cr) Insulin Human Lispro (HUMALOG) 0 AC HS SUBQ Potassium Chloride (POTASSIUM CHLORIDE 10 MEQ TA B.ER) 30 MEQ ONCE ONE PO (DC) Acetaminophen (TYLENOL) 650 MG Q6H PRN PRN PO Furosemide (LASIX 20MG INJ) 20 MG BID 9A 5P IV Sodium Hypochlorite (DAKIN'S 1/2 STRENGTH 0.25% 480 ML TOP SOLN) 1 APPLIC DAILY TOPICAL Fluconazole/Sodium Chloride (FLUCONAZOLE 200MG/N S 100ML) 100 ML DAILY IV Labetalol HCl (LABETALOL HCL) 20 MG Q6H PRN PRN IV Polyethylene Glycol (MIRALAX) 17 GM BID FEED-TUB E Senna/Docusate Sodium (SENOKOT S) 2 TAB DAILY FE ED-TUBE Cefazolin Sodium (KEFZOL OR ANCEF) 1 GM Q12H IV Sodium Chloride (SODIUM CHLORIDE) 10 ML Heparin Sodium (HEPARIN 5000 UNITS/ML) 5,000 UNI T Q8H SUBQ Dextrose/Water (DEXTROSE 50% W SYRINGE) 50 ML DIR PRN IV (CKD) Nutrition assessment: The data set between the solid lines has been im ported from the dietitian's assessment. Any exceptions have been noted under Provider comments. BMI Calculated: 55.8 Nutrition related diagnosis: Morbid obesity Nutrition diagnosis details: BMI 40 or more Nutrition problem: Inadequate energy intake Nutrition etiology: Acute illness Nutrition signs and symptoms: <10% MEAL INTAKE Nutrition prescription: LIBERALIZE DIET TO REGUL AR ENSURE TID Dietitian name: Travis Soriano, DIET Assessment completed: 10/15/21 Provider comments on imported dietitian assessme nt: Physical Exam General appearance: alert, awake HEENT: normocephalic Neck: supple Cardiovascular: regular rate rhythm Respiratory: no distress Genitourinary: not indicated Musculoskeletal: normal inspection Neuro/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 OPERATOR: alert Findings/data: Laboratory Tests: 10/16 10/16 10/16 10/15 10/15 1326 0843 0740 2110 1645 Chemistry Sodium (134 - 147 mEq/L) 145 Potassium (3.4 - 5.0 mEq/L) 3.5 Chloride (100 - 108 mEq/L) 106 Carbon Dioxide (21 - 33 mEq/l) 32 Anion Gap (0 - 20) 11 BUN (7 - 18 mg/dL) 51 H Creatinine (0.6 - 1.3 mg/dL) 3.8 H Glomerular Filtr Rate (95 - 105) 15.9 L Glucose (70 - 110 mg/dL) 96 POC Glucose (70 - 110 MG/DL) 76 92 164 H 139 H Calcium (8.0 - 10.5 mg/dL) 9.6 Ionized Calcium Jay (1.12 - 1.32 MMOL/L) 1.21 Phosphorus (2.5 - 4.9 MG/DL) 4.5 Magnesium (1.80 - 2.40 mg/dL) 2.32 Total Bilirubin (0.0 - 1.0 mg/dL) 0.20 AST (15 - 37 IUnit/L) 22 ALT (30 - 65 IUnit/L) < 7 L Total Alk Phosphatase (20 - 125 IUnit/L) 142 H Total Protein (6.4 - 8.2 g/dL) 7.6 Albumin (3.4 - 5.0 g/dL) 2.80 L Hematology WBC (4.5 - 11.0 x10 3/uL) 12.2 H RBC (3.54 - 5.02 x10 6/uL) 3.88 Hgb (11.0 - 15.0 g/dL) 10.1 L Hct (33.0 - 45.0 %) 31.6 L MCV (81.0 - 99.0 fL) 81.4 MCH (27.0 - 33.0 pg) 26.0 L MCHC (33.0 - 37.0 g/dL) 32.0 L RDW (11.5 - 14.5 %) 15.1 H Plt Count (150 - 400 x10 3/uL) 291 MPV (7.0 - 9.0 fL) 11.0 H Neut % (Auto) (56.0 - 77.0 %) 49.7 L Lymph % (Auto) (14.0 - 32.0 %) 29.4 [place] % (Auto) (4.8 - 9.0 %) 18.2 H Eos % (Auto) (0.3 - 3.7 %) 0.3 Baso % (Auto) (0.0 - 2.0 %) 0.5 Neut # (Auto) (2.0 - 7.6 x10 3/uL) 6.06 Lymph # (Auto) (1.0 - 3.8 x10 3/uL) 3.58 [place] # (Auto) (0.1 - 0.8 x10 3/uL) 2.22 H Eos # (Auto) (0.0 - 0.2 x10 3/uL) 0.04 Baso # (Auto) (0.0 - 0.2 x10 3/uL) 0.06 Abs Immat Gran (auto) (0.00 - 0.03 0.23 H x10 3/uL) Add Manual Diff NO Immature Gran % (0.0 - 2.0 %) 1.9 Nucleated RBC % (0 - 0 %) 0.0 Nucleated RBCs # (Man) (0.0 - 0.1 0.00 x10 3/uL) Laboratory Tests: 10/16 10/16 10/16 10/15 10/15 1326 0843 0740 2110 1645 Chemistry Sodium (134 - 147 mEq/L) 145 Potassium (3.4 - 5.0 mEq/L) 3.5 Chloride (100 - 108 mEq/L) 106 Carbon Dioxide (21 - 33 mEq/l) 32 Anion Gap (0 - 20) 11 BUN (7 - 18 mg/dL) 51 H Creatinine (0.6 - 1.3 mg/dL) 3.8 H Glomerular Filtr Rate (95 - 105) 15.9 L Glucose (70 - 110 mg/dL) 96 POC Glucose (70 - 110 MG/DL) 76 92 164 H 139 H Calcium (8.0 - 10.5 mg/dL) 9.6 Ionized Calcium Jay (1.12 - 1.32 MMOL/L) 1.21 Phosphorus (2.5 - 4.9 MG/DL) 4.5 Magnesium (1.80 - 2.40 mg/dL) 2.32 Total Bilirubin (0.0 - 1.0 mg/dL) 0.20 AST (15 - 37 IUnit/L) 22 ALT (30 - 65 IUnit/L) < 7 L Total Alk Phosphatase (20 - 125 IUnit/L) 142 H Total Protein (6.4 - 8.2 g/dL) 7.6 Albumin (3.4 - 5.0 g/dL) 2.80 L Hematology WBC (4.5 - 11.0 x10 3/uL) 12.2 H RBC (3.54 - 5.02 x10 6/uL) 3.88 Hgb (11.0 - 15.0 g/dL) 10.1 L Hct (33.0 - 45.0 %) 31.6 L MCV (81.0 - 99.0 fL) 81.4 MCH (27.0 - 33.0 pg) 26.0 L MCHC (33.0 - 37.0 g/dL) 32.0 L RDW (11.5 - 14.5 %) 15.1 H Plt Count (150 - 400 x10 3/uL) 291 MPV (7.0 - 9.0 fL) 11.0 H Neut % (Auto) (56.0 - 77.0 %) 49.7 L Lymph % (Auto) (14.0 - 32.0 %) 29.4 [place] % (Auto) (4.8 - 9.0 %) 18.2 H Eos % (Auto) (0.3 - 3.7 %) 0.3 Baso % (Auto) (0.0 - 2.0 %) 0.5 Neut # (Auto) (2.0 - 7.6 x10 3/uL) 6.06 Lymph # (Auto) (1.0 - 3.8 x10 3/uL) 3.58 [place] # (Auto) (0.1 - 0.8 x10 3/uL) 2.22 H Eos # (Auto) (0.0 - 0.2 x10 3/uL) 0.04 Baso # (Auto) (0.0 - 0.2 x10 3/uL) 0.06 Abs Immat Gran (auto) (0.00 - 0.03 0.23 H x10 3/uL) Add Manual Diff NO Immature Gran % (0.0 - 2.0 %) 1.9 Nucleated RBC % (0 - 0 %) 0.0 Nucleated RBCs # (Man) (0.0 - 0.1 0.00 x10 3/uL) Diagnosis, Assessment Plan Free Text A P: 1.DM I in DKA HgbA1c >14 adjust lantus adjust Humalog monitor glucose diabetic diet diabetic teaching DC Plan:Lantus and Humalog, follow in office at the next available appointment. 2.Sick euthyroid recheck in 6 weeks 3.Acute respiratory failure intubated 4.Altered mental status non-contrast CTH unremarkable patient not MRI-compatible resolved neurology following 5.JAYLEEN with worsening renal function nephrology following 6.COVID-19 7.Bacteremia with alpha Streptococcus species on abx ID following 8.Wounds present to L + R foot debridement on abx Podiatry following at 1511 Electronically Signed by Darvin Mooney MD on 0 10/17/21 at 1229 RPT #:[id number] END OF REPORT 2021-10-16 11:52:00-00:00 [facility] Hospitalist Progress Note REPORT#:[id number] REPORT STATUS: Signed DATE:10/16/21 TIME: 1152 PATIENT: HARLEEN MANZANO UNIT #: [id number] ROOM[address]BED: [address] : 80 AGE: 40 SEX: F ATTEND: Laura Trinh ADM AUTHOR: Laura Trinh MD * ALL edits or amendments must be made on the [email or web address]/computer document * Subjective Chief complaint: Patient had a fall by bedside, slipped on the fl oor, did not hit her head. No other complaints Objective General VS/I O: Vital Signs: Date Time Temp Pulse Resp B/P B/P Pulse O2 O2 F low FiO2 Mean Ox Delivery Rate 10/16 1038 86 15 167/76 109 99 07/08 0904 93 16 175/79 113 100 /08 0734 102 23 179/86 123 94 07/08 0638 92 20 154/74 106 98 07/08 0400 98.3 / 0015 97 16 146/65 94 96 07/08 0000 98.4 10/15 2242 102 19 163/81 114 98 10/15 2146 103 15 147/79 107 99 10/16 1999 98.2 10/15 1804 101 24 167/77 111 99 10/15 1700 96 20 149/72 103 97 10/15 1601 102 146/65 94 10/15 1600 98.5 24 hour I O ending at 0700: 10/16 0700 10/15 1900 Intake Total 971.61 Output Total 1999 5120 Balance -1999 -4148.39 Intake, IV 471.61 Intake, Oral 500 Number 1 Bowel Movements Output, Urine 1999 5120 Patient 171.458 kg Weight PATIENT WEIGHT: Weight (lb): 378 Weight (oz): 0 Weight (kg): 171.458 Medications: Active Meds + DC'd Last 24 Hrs Insulin Glargine (Lantus/Semglee) 25 UNIT BID BLANKENSHIP BQ Insulin Human Lispro (HUMALOG) 2 UNIT AC SUBQ Insulin Glargine (Lantus/Semglee) 35 UNIT BID BLANKENSHIP BQ (DC) Insulin Human Lispro (HUMALOG) 5 UNIT AC SUBQ (D C) Insulin Human Lispro (HUMALOG) 0 AC HS SUBQ Potassium Chloride (POTASSIUM CHLORIDE 10 MEQ TA B.ER) 30 MEQ ONCE ONE PO (DC) Acetaminophen (TYLENOL) 650 MG Q6H PRN PRN PO Furosemide (LASIX 20MG INJ) 20 MG BID 9A 5P IV Sodium Hypochlorite (DAKIN'S 1/2 STRENGTH 0.25% 480 ML TOP SOLN) 1 APPLIC DAILY TOPICAL Fluconazole/Sodium Chloride (FLUCONAZOLE 200MG/N S 100ML) 100 ML DAILY IV Labetalol HCl (LABETALOL HCL) 20 MG Q6H PRN PRN IV Polyethylene Glycol (MIRALAX) 17 GM BID FEED-TUB E Senna/Docusate Sodium (SENOKOT S) 2 TAB DAILY FE ED-TUBE Cefazolin Sodium (KEFZOL OR ANCEF) 1 GM Q12H IV Sodium Chloride (SODIUM CHLORIDE) 10 ML Heparin Sodium (HEPARIN 5000 UNITS/ML) 5,000 UNI T Q8H SUBQ Dextrose/Water (DEXTROSE 50% W SYRINGE) 50 ML DIR PRN IV (CKD) Physical Exam General appearance: alert, awake, oriented Head/Eyes: normocephalic ENT: moist mucosal membranes Neck: no JVD Cardiovascular: normal heart sounds, regular rat e rhythm Respiratory: aerating well, clear to auscultatio n, symmetric expansion Abdomen: non-tender, normal bowel sounds, soft, no distention Extremities: b/l feet wound Neuro/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 OPERATOR: alert, oriented X 3, CNII-XII intact, normal speech Skin: dry Psychiatry: normal mood Results Findings/Data: Laboratory Tests 10/16 10/16 10/16 10/15 10/15 1326 0843 0740 2110 1645 Chemistry Sodium (134 - 147 mEq/L) 145 Potassium (3.4 - 5.0 mEq/L) 3.5 Chloride (100 - 108 mEq/L) 106 Carbon Dioxide (21 - 33 mEq/l) 32 Anion Gap (0 - 20) 11 BUN (7 - 18 mg/dL) 51 H Creatinine (0.6 - 1.3 mg/dL) 3.8 H Glomerular Filtr Rate (95 - 105) 15.9 L Glucose (70 - 110 mg/dL) 96 POC Glucose (70 - 110 MG/DL) 76 92 164 H 139 H Calcium (8.0 - 10.5 mg/dL) 9.6 Ionized Calcium Jay (1.12 - 1.32 MMOL/L) 1.21 Phosphorus (2.5 - 4.9 MG/DL) 4.5 Magnesium (1.80 - 2.40 mg/dL) 2.32 Total Bilirubin (0.0 - 1.0 mg/dL) 0.20 AST (15 - 37 IUnit/L) 22 ALT (30 - 65 IUnit/L) < 7 L Total Alk Phosphatase (20 - 125 IUnit/L) 142 H Total Protein (6.4 - 8.2 g/dL) 7.6 Albumin (3.4 - 5.0 g/dL) 2.80 L Laboratory Tests 10/16 0740 Hematology WBC (4.5 - 11.0 x10 3/uL) 12.2 H RBC (3.54 - 5.02 x10 6/uL) 3.88 Hgb (11.0 - 15.0 g/dL) 10.1 L Hct (33.0 - 45.0 %) 31.6 L MCV (81.0 - 99.0 fL) 81.4 MCH (27.0 - 33.0 pg) 26.0 L MCHC (33.0 - 37.0 g/dL) 32.0 L RDW (11.5 - 14.5 %) 15.1 H Plt Count (150 - 400 x10 3/uL) 291 MPV (7.0 - 9.0 fL) 11.0 H Neut % (Auto) (56.0 - 77.0 %) 49.7 L Lymph % (Auto) (14.0 - 32.0 %) 29.4 [place] % (Auto) (4.8 - 9.0 %) 18.2 H Eos % (Auto) (0.3 - 3.7 %) 0.3 Baso % (Auto) (0.0 - 2.0 %) 0.5 Neut # (Auto) (2.0 - 7.6 x10 3/uL) 6.06 Lymph # (Auto) (1.0 - 3.8 x10 3/uL) 3.58 [place] # (Auto) (0.1 - 0.8 x10 3/uL) 2.22 H Eos # (Auto) (0.0 - 0.2 x10 3/uL) 0.04 Baso # (Auto) (0.0 - 0.2 x10 3/uL) 0.06 Abs Immat Gran (auto) (0.00 - 0.03 x10 3/uL) 0. 23 H Add Manual Diff NO Immature Gran % (0.0 - 2.0 %) 1.9 Nucleated RBC % (0 - 0 %) 0.0 Nucleated RBCs # (Man) (0.0 - 0.1 x10 3/uL) 0. 00 Diagnosis, Assessment Plan Free Text DxA P Notes Free text DxA P notes: Assessment and plans: Acute respiratory failure: Intubated for airway protection, sedated ICC on board S/p extubation on 10/14 Now saturating well on room air Sepsis: Leukocytosis, tachycardia, JAYLEEN, UA positive for UTI, bilateral foot wounds, low blood pressure Blood culture strep species on 10/08, repeat blo od culture from 10/10 negative, urine culture growing yeast, wound cultu re growing diphtheroids, coag negative staph, E. coli, Enterococcus species Received vancomycin x1 Ancef as per ID (10/18) ID on board Echo when recommended by ID Wound care nurse consult for bilateral foot wou nd CT abdomen and pelvis unremarkable May need debridement of the left foot wound as per podiatry Unable to MRI, bilateral foot x-ray unremarkabl e for OM On fluconazole for yeast in urine (10/23) JAYLEEN: Likely secondary to above causes. Patient also received Lasix today 10/10 Avoid nephrotoxic drugs Renal ultrasound Was on dopamine for short duration 10/11 IV fluid hydration - LR DC'd Renal managing On IV Lasix 20 mg bid Renal function improving Acute encephalopathy: -due to above causes -treat underlying causes CT head ordered unremarkable 10/11 EEG showing moderate encephalopathy 10/12 Resolved Anemia: No active bleeding noted Monitor H H every 6 hours for 24 hours 10/12 blood transfusion if hemoglobin drops below 7 H H stable Bacteremia Management same as above b/l Foot infected wound Management same as above UTI Management same as above DKA: A1c more than 14 Insulin drip switched to blankenship bcu insulin, Glargine 25 unit bid, lispro 2 unit AC , ISS, hypoglycemia protocol Endocrine managing Constipation: Bowel regimen COVID 19 infection: Patient did not have respiratory distress on ad mission, intubated for airway protection COVID PCR positive Hyponatremia from osmotic hyperglycemia: Corrected sodium is elevated in hyperna tremic range due to severe dehydration Monitor lab -heparin for DVT prophylaxis Diabetic diet Famotidine for GI prophylaxis Morning labs Disposition: On IV antibiotic. On IV Lasix. Eden l function slowly improving. Awaiting PT/OT eval. okay to transfer out of ICU to [facility]. Quality: Gen Med Crit Care VTE Prophylaxis VTE prophylaxis initiated: yes Current Medications Current medication review: I attest that the foregoing medication list in t medical record is true, accurate, and complete to the best of my knowled ge. Electronically Signed by Laura Trinh MD on 2 at 1530 [facility] #:[id number] END OF REPORT 2021-10-15 22:47:00-00:00 [facility] ([facility]) Infectious Dis. Progress Note REPORT#:[id number] REPORT STATUS: Signed DATE:10/15/21 TIME: 2246 PATIENT: HARLEEN MANZANO UNIT #: [id number] ROOM/BED: [place] [address] : 80 AGE: 40 SEX: F ATTEND: Laura Trinh ADM AUTHOR: Pradip Akhtar MD, MD * ALL edits or amendments must be made on the [email or web address]/computer document * Subjective Chief complaint: DKA HPI: 40-year-old female with past medical history sig nificant for diabetes who was found unresponsive by her da kathy for unknown period of time. Her glucose 1095 and WBC 20 1K. Patient was resuscitated, intubated and central line was placed in ED. Patient reports: No: complaints. Review of Systems Constitutional: Denies: chills, fatigue. Skin: Denies: abrasion, bruising. Allergy/Immun: Denies: allergic reaction, anaphylaxis. Eyes: Denies: redness, discharge. ENT: Denies: ear drainage, ear ringing. Respiratory: Denies: MCALLISTER (dyspnea on exertion), hemoptysis. Cardiovascular: Denies: chest pain, MCALLISTER (dyspnea on exertion). Objective General VS/I O: Vital Signs Date Temp Pulse Resp B/P B/P Mean Pulse Ox FiO2 07/-10/15 97.0-98.5 55-104 11-28 134-173/65-9 4 94-120 94-100 21 Last Documented: Result Date Time Pulse Ox 99 07/ 1804 B/P 167/77 07/07 1804 B/P Mean 111 07/07 1804 Pulse 101 07/07 1804 Resp 24 / 1804 Temp 98.5 07/07 1600 FiO2 21 / 0920 O2 Delivery Room air / 0920 O2 Flow Rate 15.0 07/03 1600 Vital Signs: Date Time Temp Pulse Resp B/P B/P Pulse O2 O2 F low FiO2 Mean Ox Delivery Rate /07 1804 101 24 167/77 111 99 07/07 1700 96 20 149/72 103 97 07/07 1601 102 146/65 94 07/07 1600 98.5 07/07 1430 104 21 173/77 110 94 07/07 1345 95 17 164/86 117 97 07/07 1330 92 19 100 07/07 1300 83 28 99 07/07 1200 98.1 07/07 1200 88 22 159/94 120 99 07/07 1100 97.7 76 18 148/81 107 100 07/07 1000 97.2 63 19 143/86 108 100 07/07 0920 98 Room air 21 07/07 0900 97.0 63 11 134/82 103 100 07/07 0800 98.5 07/07 0800 97.0 55 12 142/77 104 100 07/07 0700 97.0 56 12 145/80 106 100 07/07 0645 97.0 56 12 100 07/07 0630 97.0 58 12 100 07/07 0615 97.0 59 12 100 07/07 0600 97.2 57 12 141/78 103 100 07/07 0545 97.2 58 12 100 07/07 0530 97.2 60 13 99 07/07 0515 97.2 61 12 100 07/07 0500 97.2 62 16 139/81 104 100 07/07 0445 97.2 64 12 100 07/07 0430 97.2 66 12 100 07/07 0415 97.2 67 12 100 07/07 0400 97.2 69 12 100 07/07 0345 97.2 71 13 100 07/07 0330 97.2 70 15 100 07/07 0315 97.2 68 12 100 07/07 0300 97.2 63 12 100 07/07 0245 97.2 58 12 100 07/07 0230 97.2 59 12 100 07/07 0215 97.2 60 12 100 07/07 0200 97.2 65 15 100 07/07 0145 97.2 60 13 100 07/07 0130 97.3 62 13 100 07/07 0115 97.3 55 12 100 07/07 0100 97.5 56 12 100 07/07 0030 97.7 60 13 99 07/07 0015 97.5 58 12 100 07/07 0000 97.5 62 13 100 07/06 2345 97.5 58 12 99 07/06 2330 97.7 60 12 99 07/06 2315 97.7 63 13 100 07/06 2300 97.7 66 14 158/85 117 100 24 hour I O ending at 0700: 07/07 0700 07/06 1900 Intake Total 410.00 Output Total 3386 Balance -2976.00 Intake, Free 30 Water Intake, IV 80.00 Intake, Tube 300 Feeding Number 1 Bowel Movements Output, Urine 3386 Patient 171.7 kg Weight Weight Bed scale Measurement Method PATIENT WEIGHT: Weight (lb): 378 Weight (oz): 0 Weight (kg): 171.458 Medications: Active Meds + DC'd Last 24 Hrs Insulin Glargine (Lantus/Semglee) 35 UNIT BID BLANKENSHIP BQ Insulin Human Lispro (HUMALOG) 5 UNIT AC SUBQ Insulin Human Lispro (HUMALOG) 0 AC HS SUBQ Potassium Chloride (POTASSIUM CHLORIDE 10 MEQ TA B.ER) 30 MEQ ONCE ONE PO (DC) Acetaminophen (TYLENOL) 650 MG Q6H PRN PRN PO Furosemide (LASIX 20MG INJ) 20 MG BID 9A 5P IV Insulin Glargine (Lantus/Semglee) 30 UNIT BID BLANKENSHIP BQ (DC) Sodium Hypochlorite (DAKIN'S 1/2 STRENGTH 0.25% 480 ML TOP SOLN) 1 APPLIC DAILY TOPICAL Fluconazole/Sodium Chloride (FLUCONAZOLE 200MG/N S 100ML) 100 ML DAILY IV Dexmedetomidine/Sodium Chloride (PRECEDEX 1000MC G/NS 250ML) 250 ML ASDIR IV (DC) Metoclopramide HCl (REGLAN) 5 MG Q8H IV (DC) Labetalol HCl (LABETALOL HCL) 20 MG Q6H PRN PRN IV Polyethylene Glycol (MIRALAX) 17 GM BID FEED-TUB E Senna/Docusate Sodium (SENOKOT S) 2 TAB DAILY F EED-TUBE Insulin Human Lispro (HUMALOG) 0 Q4H SUBQ (DC) Cefazolin Sodium (KEFZOL OR ANCEF) 1 GM Q12H IV Sodium Chloride (SODIUM CHLORIDE) 10 ML Heparin Sodium (HEPARIN 5000 UNITS/ML) 5,000 UNI T Q8H SUBQ Propofol (DIPRIVAN 1,000MG/100ML) 100 ML TITRATE IV (DC) Lactated Ringer's (LACTATED RINGERS) 1,000 ML B OLUS IV (DC) Dextrose/Water (DEXTROSE 50% W SYRINGE) 50 ML DIR PRN IV (CKD) Dextrose/Water (Dextrose 10% W) 1,000 ML ASDIR I V (DC) Magnesium Sulfate (MAGNESIUM SULFATE 2GM/SWFI 50 ML) 50 ML ASDIR PRN IV ( DC) Magnesium Sulfate (MAGNESIUM SULFATE 4GM/SWFI 10 0ML) 100 ML ASDIR PRN IV (DC) Potassium Chloride (POTASSIUM CHLORIDE 20MEQ TAB .ER) 20 MEQ ASDIR PRN PO (DC) Potassium Chloride (POTASSIUM CHLORIDE 20MEQ TAB .ER) 40 MEQ ASDIR PRN PO (DC) Potassium Chloride (POTASSIUM CHLORIDE 20MEQ TAB .ER) 60 MEQ ASDIR PRN PO (DC) Potassium Chloride (KCL 20MEQ/SWFI 100ML) 100 ML ASDIR PRN IV (DC) Potassium Phosphate (POTASSIUM PHOSPHATE) 15 MM ASDIR PRN IV (DC) Sodium Chloride (SODIUM CHLORIDE 0.9%) 250 ML Physical Exam General appearance: no acute distress Head/Eyes: atraumatic, normocephalic Neck: non-tender, supple/no meningismus Cardiovascular: normal heart sounds, no murmur Respiratory: clear to auscultation, symmetric ex pansion Abdomen: non-tender, soft Extremities: no clubbing Results Findings/Data: Laboratory Tests 10/15 10/15 10/15 10/15 10/15 1645 1403 1117 0830 0630 Chemistry Sodium (134 - 147 mEq/L) 145 Potassium (3.4 - 5.0 mEq/L) 3.2 L Chloride (100 - 108 mEq/L) 107 Carbon Dioxide (21 - 33 mEq/l) 28 Anion Gap (0 - 20) 13 BUN (7 - 18 mg/dL) 56 H Creatinine (0.6 - 1.3 mg/dL) 4.3 H Glomerular Filtr Rate (95 - 105) 13.8 L Glucose (70 - 110 mg/dL) 189 H POC Glucose (70 - 110 MG/DL) 139 H 165 H 164 H 148 H Calcium (8.0 - 10.5 mg/dL) 9.2 Ionized Calcium Jay (1.12 - 1.32 MMOL/L) 1.20 Phosphorus (2.5 - 4.9 MG/DL) 4.8 Magnesium (1.80 - 2.40 mg/dL) 2.39 Total Bilirubin (0.0 - 1.0 mg/dL) 0.20 AST (15 - 37 IUnit/L) 16 ALT (30 - 65 IUnit/L) < 7 L Total Alk Phosphatase (20 - 125 IUnit/L) 149 H Total Protein (6.4 - 8.2 g/dL) 6.9 Albumin (3.4 - 5.0 g/dL) 2.60 L 10/15 10/15 0608 0128 Chemistry POC Glucose (70 - 110 MG/DL) 176 H 249 H Laboratory Tests 10/15 629 Hematology WBC (4.5 - 11.0 x10 3/uL) 11.9 H RBC (3.54 - 5.02 x10 6/uL) 3.56 Hgb (11.0 - 15.0 g/dL) 9.2 L Hct (33.0 - 45.0 %) 27.6 L MCV (81.0 - 99.0 fL) 77.5 L MCH (27.0 - 33.0 pg) 25.8 L MCHC (33.0 - 37.0 g/dL) 33.3 RDW (11.5 - 14.5 %) 14.6 H Plt Count (150 - 400 x10 3/uL) 262 MPV (7.0 - 9.0 fL) 11.4 H Neut % (Auto) (56.0 - 77.0 %) 59.3 Lymph % (Auto) (14.0 - 32.0 %) 22.5 [place] % (Auto) (4.8 - 9.0 %) 15.6 H Eos % (Auto) (0.3 - 3.7 %) 0.8 Baso % (Auto) (0.0 - 2.0 %) 0.3 Neut # (Auto) (2.0 - 7.6 x10 3/uL) 7.05 Lymph # (Auto) (1.0 - 3.8 x10 3/uL) 2.68 [place] # (Auto) (0.1 - 0.8 x10 3/uL) 1.85 H Eos # (Auto) (0.0 - 0.2 x10 3/uL) 0.09 Baso # (Auto) (0.0 - 0.2 x10 3/uL) 0.04 Abs Immat Gran (auto) (0.00 - 0.03 x10 3/uL) 0. 18 H Add Manual Diff NO Immature Gran % (0.0 - 2.0 %) 1.5 Nucleated RBC % (0 - 0 %) 0.0 Nucleated RBCs # (Man) (0.0 - 0.1 x10 3/uL) 0.0 0 Radiology data: Recent Impressions: RADIOLOGY - XR CHEST 1 V 10/15 0608 Report Impression - Status: SIGNED Entered: 10/15/2021 2493 IMPRESSION: Mild vascular congestion. No focal airspace cons olidations. Impression By: [email or web address] - Virgil Jaime Results: labs reviewed, turner l signs reviewed, x-ray personally reviewed, current med profile rev'd Treatment Prophylaxis Treatment Prophylaxis CVC/PICC documentation: The data below has been imported from nursing do cumentation. Any exceptions have been noted below under Provider comments. CVC/PICC insertion date/time: No CVC/PICC Provider comments on imported nursing data: [] Diagnosis, Assessment Plan Problem List/A P: 1. DKA (diabetic ketoacidosis) 2. COVID 3. JAYLEEN (acute kidney injury) 4. Severe sepsis 5. Metabolic encephalopathy Free Text A P: Severe DKA, intubated due to AMS COVID without pnuemonia or hypoxia Strep mitis on blood 10/08, repeat 10/10 negative L foot wound culture E coli and Enterococcus JAYLEEN, Nephrology monitoring for HD need AMS improved and extubated 10/14 On Ancef will follow Electronically Signed by Pradip Akhtar MD, MD on at 2248 RPT #:[id number] END OF REPORT 2021-10-15 15:54:00-00:00 [facility] ([facility]) Nephrology Progress Note REPORT#:[id number] REPORT STATUS: Signed DATE:10/15/21 TIME: 1554 PATIENT: HARLEEN MANZANO UNIT #: [id number] ROOM/BED: [facility] : 80 AGE: 40 SEX: F ATTEND: Laura Trinh ADM AUTHOR: Mary Steiner MD * ALL edits or amendments must be made on the el [employer]/computer document * Subjective Chief complaint: Chart reviewed Events noted Extubated Sitting up at the side of the bed Objective General VS/I O: Vital Signs: Date Time Temp Pulse Resp B/P B/P Pulse O2 O2 F low FiO2 Mean Ox Delivery Rate 10/15 1200 36.7 07/07 0920 98 Room air 21 07/07 0700 36.1 56 12 145/80 106 100 07/07 0645 36.1 56 12 100 07/07 0630 36.1 58 12 100 07/07 0615 36.1 59 12 100 07/07 0600 36.2 57 12 141/78 103 100 07/07 0545 36.2 58 12 100 07/07 0530 36.2 60 13 99 07/07 0515 36.2 61 12 100 07/07 0500 36.2 62 16 139/81 104 100 07/07 0445 36.2 64 12 100 07/07 0430 36.2 66 12 100 07/07 0415 36.2 67 12 100 07/07 0400 36.2 69 12 100 07/07 0345 36.2 71 13 100 07/07 0330 36.2 70 15 100 07/07 0315 36.2 68 12 100 07/07 0300 36.2 63 12 100 07/07 0245 36.2 58 12 100 07/07 0230 36.2 59 12 100 07/07 0215 36.2 60 12 100 07/07 0200 36.2 65 15 100 07/07 0145 36.2 60 13 100 07/07 0130 36.3 62 13 100 07/07 0115 36.3 55 12 100 07/07 0100 36.4 56 12 100 07/07 0030 36.5 60 13 99 07/07 0015 36.4 58 12 100 07/07 0000 36.4 62 13 100 07/06 2345 36.4 58 12 99 07/06 2330 36.5 60 12 99 07/06 2315 36.5 63 13 100 07/06 2300 36.5 66 14 158/85 117 100 07/06 2245 36.5 66 12 99 07/06 2230 36.6 61 13 100 07/06 2215 36.6 62 13 99 07/06 2200 36.6 62 14 100 07/06 2145 36.6 67 14 07/06 2130 36.6 69 17 07/06 2115 36.7 63 12 99 07/06 2100 36.7 65 14 99 07/06 2045 36.7 68 14 99 07/06 2029 36.7 67 14 99 07/06 2014 36.7 68 15 100 07/06 2000 36.7 74 17 168/92 121 99 07/06 1945 36.9 89 26 99 07/06 1930 37.0 75 20 100 07/06 1915 37.0 76 19 99 07/06 1909 37.0 73 22 168/79 113 99 07/06 1900 37.0 71 21 98 07/06 1845 36.9 70 14 99 07/06 1830 37.0 73 14 99 07/06 1815 37.0 78 22 99 07/06 1802 36.9 74 20 136/76 101 100 07/06 1800 36.9 72 21 98 07/06 1745 36.9 74 15 98 07/06 1730 36.9 80 15 97 07/06 1715 36.9 69 14 98 07/06 1700 36.9 73 22 148/69 99 98 07/06 1645 37.0 66 14 96 07/06 1630 37.0 67 15 97 07/06 1615 37.1 69 15 97 07/06 1600 37.1 63 17 146/74 103 96 24 hour I O ending at 0700: 10/15 0700 07/06 1900 Intake Total 410.00 Output Total 3386 Balance -2976.00 Intake, Free 30 Water Intake, IV 80.00 Intake, Tube 300 Feeding Number 1 Bowel Movements Output, Urine 3386 Patient 171.7 kg Weight Weight Bed scale Measurement Method PATIENT WEIGHT: Weight (lb): 378 Weight (oz): 8.54 Weight (kg): 171.700 Medications Active Meds + DC'd Last 24 Hrs Insulin Glargine (Lantus/Semglee) 35 UNIT BID BLANKENSHIP BQ Insulin Human Lispro (HUMALOG) 5 UNIT AC SUBQ Insulin Human Lispro (HUMALOG) 0 AC HS SUBQ Acetaminophen (TYLENOL) 650 MG Q6H PRN PRN PO Furosemide (LASIX 20MG INJ) 20 MG BID 9A 5P IV Insulin Glargine (Lantus/Semglee) 30 UNIT BID BLANKENSHIP BQ (DC) Sodium Hypochlorite (DAKIN'S 1/2 STRENGTH 0.25% 480 ML TOP SOLN) 1 APPLIC DAILY TOPICAL Fluconazole/Sodium Chloride (FLUCONAZOLE 200MG/N S 100ML) 100 ML DAILY IV Dexmedetomidine/Sodium Chloride (PRECEDEX 1000MC G/NS 250ML) 250 ML ASDIR IV (DC) Metoclopramide HCl (REGLAN) 5 MG Q8H IV (DC) Labetalol HCl (LABETALOL HCL) 20 MG Q6H PRN PRN IV Polyethylene Glycol (MIRALAX) 17 GM BID FEED-TUB E Senna/Docusate Sodium (SENOKOT S) 2 TAB DAILY FE ED-TUBE Insulin Human Lispro (HUMALOG) 0 Q4H SUBQ (DC) Cefazolin Sodium (KEFZOL OR ANCEF) 1 GM Q12H IV Sodium Chloride (SODIUM CHLORIDE) 10 ML Heparin Sodium (HEPARIN 5000 UNITS/ML) 5,000 UNI T Q8H SUBQ Propofol (DIPRIVAN 1,000MG/100ML) 100 ML TITRATE IV (DC) Lactated Ringer's (LACTATED RINGERS) 1,000 ML DIAZ EVANGELINA IV (DC) Dextrose/Water (DEXTROSE 50% W SYRINGE) 50 ML DIR PRN IV (CKD) Dextrose/Water (Dextrose 10% W) 1,000 ML ASDIR I V (DC) Magnesium Sulfate (MAGNESIUM SULFATE 2GM/SWFI 50 ML) 50 ML ASDIR PRN IV ( DC) Magnesium Sulfate (MAGNESIUM SULFATE 4GM/SWFI 10 0ML) 100 ML ASDIR PRN IV (DC) Potassium Chloride (POTASSIUM CHLORIDE 20MEQ TAB .ER) 20 MEQ ASDIR PRN PO (DC) Potassium Chloride (POTASSIUM CHLORIDE 20MEQ TAB .ER) 40 MEQ ASDIR PRN PO (DC) Potassium Chloride (POTASSIUM CHLORIDE 20MEQ TAB .ER) 60 MEQ ASDIR PRN PO (DC) Potassium Chloride (KCL 20MEQ/SWFI 100ML) 100 ML ASDIR PRN IV (DC) Potassium Phosphate (POTASSIUM PHOSPHATE) 15 MM ASDIR PRN IV (DC) Sodium Chloride (SODIUM CHLORIDE 0.9%) 250 ML Physical Exam General appearance: no acute distress ENT: moist mucous membranes Cardiovascular: regular rate and rhythm Respiratory: decreased breath sounds Abdomen: soft, obese Genitourinary: urinary catheter Extremities: swelling Neuro/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 OPERATOR: alert, oriented X 3 Results Findings/Data: Laboratory Tests 10/15 10/15 10/15 10/15 10/15 1403 1117 0830 0630 0608 Chemistry Sodium (134 - 147 mEq/L) 145 Potassium (3.4 - 5.0 mEq/L) 3.2 L Chloride (100 - 108 mEq/L) 107 Carbon Dioxide (21 - 33 mEq/l) 28 Anion Gap (0 - 20) 13 BUN (7 - 18 mg/dL) 56 H Creatinine (0.6 - 1.3 mg/dL) 4.3 H Glomerular Filtr Rate (95 - 105) 13.8 L Glucose (70 - 110 mg/dL) 189 H POC Glucose (70 - 110 MG/DL) 165 H 164 H 148 H 176 H Calcium (8.0 - 10.5 mg/dL) 9.2 Ionized Calcium Jay (1.12 - 1.32 1.20 MMOL/L) Phosphorus (2.5 - 4.9 MG/DL) 4.8 Magnesium (1.80 - 2.40 mg/dL) 2.39 Total Bilirubin (0.0 - 1.0 mg/dL) 0.20 AST (15 - 37 IUnit/L) 16 ALT (30 - 65 IUnit/L) < 7 L Total Alk Phosphatase (20 - 125 149 H IUnit/L) Total Protein (6.4 - 8.2 g/dL) 6.9 Albumin (3.4 - 5.0 g/dL) 2.60 L 10/15 10/14 10/14 0128 2133 1804 Chemistry POC Glucose (70 - 110 MG/DL) 249 H 224 H 282 H Laboratory Tests 10/15 0630 Hematology WBC (4.5 - 11.0 x10 3/uL) 11.9 H RBC (3.54 - 5.02 x10 6/uL) 3.56 Hgb (11.0 - 15.0 g/dL) 9.2 L Hct (33.0 - 45.0 %) 27.6 L MCV (81.0 - 99.0 fL) 77.5 L MCH (27.0 - 33.0 pg) 25.8 L MCHC (33.0 - 37.0 g/dL) 33.3 RDW (11.5 - 14.5 %) 14.6 H Plt Count (150 - 400 x10 3/uL) 262 MPV (7.0 - 9.0 fL) 11.4 H Neut % (Auto) (56.0 - 77.0 %) 59.3 Lymph % (Auto) (14.0 - 32.0 %) 22.5 [place] % (Auto) (4.8 - 9.0 %) 15.6 H Eos % (Auto) (0.3 - 3.7 %) 0.8 Baso % (Auto) (0.0 - 2.0 %) 0.3 Neut # (Auto) (2.0 - 7.6 x10 3/uL) 7.05 Lymph # (Auto) (1.0 - 3.8 x10 3/uL) 2.68 [place] # (Auto) (0.1 - 0.8 x10 3/uL) 1.85 H Eos # (Auto) (0.0 - 0.2 x10 3/uL) 0.09 Baso # (Auto) (0.0 - 0.2 x10 3/uL) 0.04 Abs Immat Gran (auto) (0.00 - 0.03 x10 3/uL) 0. 18 H Add Manual Diff NO Immature Gran % (0.0 - 2.0 %) 1.5 Nucleated RBC % (0 - 0 %) 0.0 Nucleated RBCs # (Man) (0.0 - 0.1 x10 3/uL) 0.0 0 Diagnosis, Assessment Plan Free Text A P: JAYLEEN Fluid overload Hypokalemia Hypophosphatemia DKA Respiratory failure COVID+ Left foot wound culture with E.coli and Enteroco ccus JAYLEEN likely 2/2 ATN Cr starting to trend down now Continue scheduled IV Lasix Strict I/Os Replete K Phos better after repletion Acidosis also better No emergent indication for dialysis yet, but jenae l continue to monitor renal indices closely Electronically Signed by Mary Steiner MD on 0 10/15/21 at 1558 RPT #:[id number] END OF REPORT 2021-10-15 14:04:00-00:00 [facility] ([facility] Endocrinology Progress Note REPORT#:[id number] REPORT STATUS: Signed DATE:10/15/21 TIME: 1404 PATIENT: HARLEEN MANZANO UNIT #: [id number] ROOM/BED: [place] [address] : 80 AGE: 40 SEX: F ATTEND: Laura Trinh ADM AUTHOR: Gino Hernandez * ALL edits or amendments must be made on the el ectronic/computer document * Subjective Chief complaint: f/u DM I up in bed to start diet Objective General VS: Last Documented: Result Date Time Pulse Ox 98 10/16 919 FiO2 21 10/16 919 O2 Delivery Room air 10/16 919 B/P 145/80 10/15 699 B/P Mean 106 10/15 699 Temp 97.0 10/15 699 Pulse 56 10/15 699 Resp 12 10/15 699 O2 Flow Rate 15.0 10/11 1600 PATIENT WEIGHT: Weight (lb): 378 Weight (oz): 8.54 Weight (kg): 171.700 Medications: Active Meds + DC'd Last 24 Hrs Insulin Glargine (Lantus/Semglee) 35 UNIT BID BLANKENSHIP BQ (UNV) Insulin Human Lispro (HUMALOG) 5 UNIT AC SUBQ (U NV) Insulin Human Lispro (HUMALOG) 0 AC HS SUBQ (UNV r) Furosemide (LASIX 20MG INJ) 20 MG BID 9A 5P IV Insulin Glargine (Lantus/Semglee) 30 UNIT BID BLANKENSHIP BQ (DCr) Sodium Hypochlorite (DAKIN'S 1/2 STRENGTH 0.25% 480 ML TOP SOLN) 1 APPLIC DAILY TOPICAL Fluconazole/Sodium Chloride (FLUCONAZOLE 200MG/N S 100ML) 100 ML DAILY IV Dexmedetomidine/Sodium Chloride (PRECEDEX 1000MC G/NS 250ML) 250 ML ASDIR IV (DC) Metoclopramide HCl (REGLAN) 5 MG Q8H IV (DC) Labetalol HCl (LABETALOL HCL) 20 MG Q6H PRN PRN IV Polyethylene Glycol (MIRALAX) 17 GM BID FEED-TUB E Senna/Docusate Sodium (SENOKOT S) 2 TAB DAILY FE ED-TUBE Insulin Human Lispro (HUMALOG) 0 Q4H SUBQ (DCr) Cefazolin Sodium (KEFZOL OR ANCEF) 1 GM Q12H IV Sodium Chloride (SODIUM CHLORIDE) 10 ML Heparin Sodium (HEPARIN 5000 UNITS/ML) 5,000 UNI T Q8H SUBQ Propofol (DIPRIVAN 1,000MG/100ML) 100 ML TITRATE IV (DC) Lactated Ringer's (LACTATED RINGERS) 1,000 ML DIAZ EVANGELINA IV (DC) Dextrose/Water (DEXTROSE 50% W SYRINGE) 50 ML DIR PRN IV (CKD) Dextrose/Water (Dextrose 10% W) 1,000 ML ASDIR I V (DC) Magnesium Sulfate (MAGNESIUM SULFATE 2GM/SWFI 50 ML) 50 ML ASDIR PRN IV ( DC) Magnesium Sulfate (MAGNESIUM SULFATE 4GM/SWFI 10 0ML) 100 ML ASDIR PRN IV (DC) Potassium Chloride (POTASSIUM CHLORIDE 20MEQ TAB .ER) 20 MEQ ASDIR PRN PO (DC) Potassium Chloride (POTASSIUM CHLORIDE 20MEQ TAB .ER) 40 MEQ ASDIR PRN PO (DC) Potassium Chloride (POTASSIUM CHLORIDE 20MEQ TAB .ER) 60 MEQ ASDIR PRN PO (DC) Potassium Chloride (KCL 20MEQ/SWFI 100ML) 100 ML ASDIR PRN IV (DC) Potassium Phosphate (POTASSIUM PHOSPHATE) 15 MM ASDIR PRN IV (DC) Sodium Chloride (SODIUM CHLORIDE 0.9%) 250 ML Nutrition assessment: The data set between the solid lines has been im ported from the dietitian's assessment. Any exceptions have been noted under Provider comments. BMI Calculated: 55.9 Nutrition related diagnosis: Morbid obesity Nutrition diagnosis details: BMI 40 or more Nutrition problem: Inadequate energy intake Nutrition etiology: Ventilator dependent Nutrition signs and symptoms: +OGT REQUIRING TF TO MEET, NEEDS Nutrition prescription: TURNER L HP @ 65 ML/HR; FWF @ 30 ML Q4H PROVIDES 1560 KCAL , 137 G PRO, 1484 ML FREE H2O TF+PROPOFOL PROVID ES 1956 KCAL/D MEETS 100% OF ESTIMATED NEEDS Dietitian name: Travis Soriano, DIET Assessment completed: 10/12/21 Provider comments on imported dietitian assessme nt: Physical Exam General appearance: obese, alert, awake HEENT: normocephalic Cardiovascular: regular rate rhythm Respiratory: no distress Genitourinary: not indicated Musculoskeletal: normal inspection Neuro/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 OPERATOR: alert Findings/data: Laboratory Tests: 10/15 10/15 10/15 10/15 1117 0830 0630 0608 Chemistry Sodium (134 - 147 mEq/L) 145 Potassium (3.4 - 5.0 mEq/L) 3.2 L Chloride (100 - 108 mEq/L) 107 Carbon Dioxide (21 - 33 mEq/l) 28 Anion Gap (0 - 20) 13 BUN (7 - 18 mg/dL) 56 H Creatinine (0.6 - 1.3 mg/dL) 4.3 H Glomerular Filtr Rate (95 - 105) 13.8 L Glucose (70 - 110 mg/dL) 189 H POC Glucose (70 - 110 MG/DL) 164 H 148 H 176 H Calcium (8.0 - 10.5 mg/dL) 9.2 Ionized Calcium Jay (1.12 - 1.32 MMOL/L) 1.20 Phosphorus (2.5 - 4.9 MG/DL) 4.8 Magnesium (1.80 - 2.40 mg/dL) 2.39 Total Bilirubin (0.0 - 1.0 mg/dL) 0.20 AST (15 - 37 IUnit/L) 16 ALT (30 - 65 IUnit/L) < 7 L Total Alk Phosphatase (20 - 125 IUnit/L) 149 H Total Protein (6.4 - 8.2 g/dL) 6.9 Albumin (3.4 - 5.0 g/dL) 2.60 L Hematology WBC (4.5 - 11.0 x10 3/uL) 11.9 H RBC (3.54 - 5.02 x10 6/uL) 3.56 Hgb (11.0 - 15.0 g/dL) 9.2 L Hct (33.0 - 45.0 %) 27.6 L MCV (81.0 - 99.0 fL) 77.5 L MCH (27.0 - 33.0 pg) 25.8 L MCHC (33.0 - 37.0 g/dL) 33.3 RDW (11.5 - 14.5 %) 14.6 H Plt Count (150 - 400 x10 3/uL) 262 MPV (7.0 - 9.0 fL) 11.4 H Neut % (Auto) (56.0 - 77.0 %) 59.3 Lymph % (Auto) (14.0 - 32.0 %) 22.5 [place] % (Auto) (4.8 - 9.0 %) 15.6 H Eos % (Auto) (0.3 - 3.7 %) 0.8 Baso % (Auto) (0.0 - 2.0 %) 0.3 Neut # (Auto) (2.0 - 7.6 x10 3/uL) 7.05 Lymph # (Auto) (1.0 - 3.8 x10 3/uL) 2.68 [place] # (Auto) (0.1 - 0.8 x10 3/uL) 1.85 H Eos # (Auto) (0.0 - 0.2 x10 3/uL) 0.09 Baso # (Auto) (0.0 - 0.2 x10 3/uL) 0.04 Abs Immat Gran (auto) (0.00 - 0.03 x10 3/uL) 0. 18 H Add Manual Diff NO Immature Gran % (0.0 - 2.0 %) 1.5 Nucleated RBC % (0 - 0 %) 0.0 Nucleated RBCs # (Man) (0.0 - 0.1 x10 3/uL) 0.0 0 10/15 10/14 10/14 0128 2133 1804 Chemistry POC Glucose (70 - 110 MG/DL) 249 H 224 H 282 H Recent Impressions: RADIOLOGY - XR CHEST 1 V 10/15 06 Report Impression - Status: SIGNED Entered: 10/15/2021 0741 IMPRESSION: Mild vascular congestion. No focal airspace cons olidations. Impression By: [email or web address] - Virgil Jaime Laboratory Tests: 10/15 10/15 10/15 10/15 1117 0830 0630 0608 Chemistry Sodium (134 - 147 mEq/L) 145 Potassium (3.4 - 5.0 mEq/L) 3.2 L Chloride (100 - 108 mEq/L) 107 Carbon Dioxide (21 - 33 mEq/l) 28 Anion Gap (0 - 20) 13 BUN (7 - 18 mg/dL) 56 H Creatinine (0.6 - 1.3 mg/dL) 4.3 H Glomerular Filtr Rate (95 - 105) 13.8 L Glucose (70 - 110 mg/dL) 189 H POC Glucose (70 - 110 MG/DL) 164 H 148 H 176 H Calcium (8.0 - 10.5 mg/dL) 9.2 Ionized Calcium Jay (1.12 - 1.32 MMOL/L) 1.20 Phosphorus (2.5 - 4.9 MG/DL) 4.8 Magnesium (1.80 - 2.40 mg/dL) 2.39 Total Bilirubin (0.0 - 1.0 mg/dL) 0.20 AST (15 - 37 IUnit/L) 16 ALT (30 - 65 IUnit/L) < 7 L Total Alk Phosphatase (20 - 125 IUnit/L) 149 H Total Protein (6.4 - 8.2 g/dL) 6.9 Albumin (3.4 - 5.0 g/dL) 2.60 L Hematology WBC (4.5 - 11.0 x10 3/uL) 11.9 H RBC (3.54 - 5.02 x10 6/uL) 3.56 Hgb (11.0 - 15.0 g/dL) 9.2 L Hct (33.0 - 45.0 %) 27.6 L MCV (81.0 - 99.0 fL) 77.5 L MCH (27.0 - 33.0 pg) 25.8 L MCHC (33.0 - 37.0 g/dL) 33.3 RDW (11.5 - 14.5 %) 14.6 H Plt Count (150 - 400 x10 3/uL) 262 MPV (7.0 - 9.0 fL) 11.4 H Neut % (Auto) (56.0 - 77.0 %) 59.3 Lymph % (Auto) (14.0 - 32.0 %) 22.5 [place] % (Auto) (4.8 - 9.0 %) 15.6 H Eos % (Auto) (0.3 - 3.7 %) 0.8 Baso % (Auto) (0.0 - 2.0 %) 0.3 Neut # (Auto) (2.0 - 7.6 x10 3/uL) 7.05 Lymph # (Auto) (1.0 - 3.8 x10 3/uL) 2.68 [place] # (Auto) (0.1 - 0.8 x10 3/uL) 1.85 H Eos # (Auto) (0.0 - 0.2 x10 3/uL) 0.09 Baso # (Auto) (0.0 - 0.2 x10 3/uL) 0.04 Abs Immat Gran (auto) (0.00 - 0.03 x10 3/uL) 0. 18 H Add Manual Diff NO Immature Gran % (0.0 - 2.0 %) 1.5 Nucleated RBC % (0 - 0 %) 0.0 Nucleated RBCs # (Man) (0.0 - 0.1 x10 3/uL) 0.0 0 10/15 10/14 10/14 0128 2133 1804 Chemistry POC Glucose (70 - 110 MG/DL) 249 H 224 H 282 H Recent Impressions: RADIOLOGY - XR CHEST 1 V 10/15 0608 Report Impression - Status: SIGNED Entered: 10/15/202141 IMPRESSION: Mild vascular congestion. No focal airspace cons olidations. Impression By: [email or web address] - Virgil Jaime Diagnosis, Assessment Plan Free Text A P: 1.DM I in DKA HgbA1c >14 adjust lantus start Humalog monitor glucose diabetic diet diabetic teaching DC Plan:Lantus and Humalog, follow in office at the next available appointment. 2.Abnormal thyroid function recheck TSH post decadron 3.Acute respiratory failure intubated 4.Altered mental status non-contrast CTH unremarkable patient not MRI-compatible resolved neurology following 5.JAYLEEN with worsening renal function nephrology following 6.COVID-19 7.Bacteremia with alpha Streptococcus species on abx ID following 8.Wounds present to L + R foot debridement on abx Podiatry following at 1510 Electronically Signed by Darvin Mooney MD on 0 10/17/21 at 3159 RPT #:[id number] END OF REPORT 2021-10-15 12:18:00-00:00 [facility] Hospitalist Progress Note REPORT#:[id number] REPORT STATUS: Signed DATE:10/15/21 TIME: 1218 PATIENT: HARLEEN MANZANO UNIT #: [id number] ROOM/BED: [facility]28-1 : 80 AGE: 40 SEX: F ATTEND: Laura Trinh ADM AUTHOR: Laura Trinh MD * ALL edits or amendments must be made on the [email or web address] document * Subjective Chief complaint: Patient extubated yesterday. Now widely awake. P assed speech eval. Objective General VS/I O: Vital Signs: Date Time Temp Pulse Resp B/P B/P Pulse O2 O2 F low FiO2 Mean Ox Delivery Rate 10/15 1200 98.1 07/ 0920 98 Room air 21 / 0700 97.0 56 12 145/80 106 100 07/07 0645 97.0 56 12 100 07/07 0630 97.0 58 12 100 07/07 0615 97.0 59 12 100 07/07 0600 97.2 57 12 141/78 103 100 07/07 0545 97.2 58 12 100 07/07 0530 97.2 60 13 99 07/07 0515 97.2 61 12 100 07/07 0500 97.2 62 16 139/81 104 100 07/07 0445 97.2 64 12 100 07/07 0430 97.2 66 12 100 07/07 0415 97.2 67 12 100 07/07 0400 97.2 69 12 100 07/07 0345 97.2 71 13 100 07/07 0330 97.2 70 15 100 07/07 0315 97.2 68 12 100 07/07 0300 97.2 63 12 100 07/07 0245 97.2 58 12 100 07/07 0230 97.2 59 12 100 07/07 0215 97.2 60 12 100 07/07 0200 97.2 65 15 100 07/07 0145 97.2 60 13 100 07/07 0130 97.3 62 13 100 07/07 0115 97.3 55 12 100 07/07 0100 97.5 56 12 100 07/07 0030 97.7 60 13 99 07/07 0015 97.5 58 12 100 07/07 0000 97.5 62 13 100 07/06 2345 97.5 58 12 99 07/06 2330 97.7 60 12 99 07/06 2315 97.7 63 13 100 07/06 2300 97.7 66 14 158/85 117 100 07/06 2245 97.7 66 12 99 07/06 2230 97.9 61 13 100 07/06 2215 97.9 62 13 99 07/06 2200 97.9 62 14 100 07/06 2145 97.9 67 14 07/06 2130 97.9 69 17 07/06 2115 98.1 63 12 99 07/06 2099 98.1 65 14 99 07/06 2044 98.1 68 14 99 07/06 2029 98.1 67 14 99 07/06 2014 98.1 68 15 100 07/06 1999 98.1 74 17 168/92 121 99 07/06 1945 98.4 89 26 99 07/06 1930 98.6 75 20 100 07/06 1915 98.6 76 19 99 07/06 1909 98.6 73 22 168/79 113 99 07/06 1900 98.6 71 21 98 07/06 1845 98.4 70 14 99 07/06 1830 98.6 73 14 99 07/06 1815 98.6 78 22 99 07/06 1802 98.4 74 20 136/76 101 100 07/06 1800 98.4 72 21 98 07/06 1745 98.4 74 15 98 07/06 1730 98.4 80 15 97 07/06 1715 98.4 69 14 98 07/06 1700 98.4 73 22 148/69 99 98 07/06 1645 98.6 66 14 96 07/06 1630 98.6 67 15 97 07/06 1615 98.8 69 15 97 07/06 1600 98.8 63 17 146/74 103 96 07/06 1545 98.8 65 15 95 07/06 1530 98.8 66 15 95 07/06 1515 98.8 70 16 95 24 hour I O ending at 0700: 07/07 0700 07/06 1900 Intake Total 410.00 Output Total 3386 Balance -2976.00 Intake, Free 30 Water Intake, IV 80.00 Intake, Tube 300 Feeding Number 1 Bowel Movements Output, Urine 3386 Patient 171.7 kg Weight Weight Bed scale Measurement Method PATIENT WEIGHT: Weight (lb): 378 Weight (oz): 8.54 Weight (kg): 171.700 Medications: Active Meds + DC'd Last 24 Hrs Insulin Glargine (Lantus/Semglee) 35 UNIT BID BLANKENSHIP BQ Insulin Human Lispro (HUMALOG) 5 UNIT AC SUBQ Insulin Human Lispro (HUMALOG) 0 AC HS SUBQ Acetaminophen (TYLENOL) 650 MG Q6H PRN PRN PO (U NV) Furosemide (LASIX 20MG INJ) 20 MG BID 9A 5P IV Insulin Glargine (Lantus/Semglee) 30 UNIT BID BLANKENSHIP BQ (DC) Sodium Hypochlorite (DAKIN'S 1/2 STRENGTH 0.25% 480 ML TOP SOLN) 1 APPLIC DAILY TOPICAL Fluconazole/Sodium Chloride (FLUCONAZOLE 200MG/N S 100ML) 100 ML DAILY IV Dexmedetomidine/Sodium Chloride (PRECEDEX 1000MC G/NS 250ML) 250 ML ASDIR IV (DC) Metoclopramide HCl (REGLAN) 5 MG Q8H IV (DC) Labetalol HCl (LABETALOL HCL) 20 MG Q6H PRN PRN IV Polyethylene Glycol (MIRALAX) 17 GM BID FEED-TUB E Senna/Docusate Sodium (SENOKOT S) 2 TAB DAILY FE ED-TUBE Insulin Human Lispro (HUMALOG) 0 Q4H SUBQ (DC) Cefazolin Sodium (KEFZOL OR ANCEF) 1 GM Q12H IV Sodium Chloride (SODIUM CHLORIDE) 10 ML Heparin Sodium (HEPARIN 5000 UNITS/ML) 5,000 UNI T Q8H SUBQ Propofol (DIPRIVAN 1,000MG/100ML) 100 ML TITRATE IV (DC) Lactated Ringer's (LACTATED RINGERS) 1,000 ML DIAZ EVANGELINA IV (DC) Dextrose/Water (DEXTROSE 50% W SYRINGE) 50 ML DIR PRN IV (CKD) Dextrose/Water (Dextrose 10% W) 1,000 ML ASDIR I V (DC) Magnesium Sulfate (MAGNESIUM SULFATE 2GM/SWFI 50 ML) 50 ML ASDIR PRN IV ( DC) Magnesium Sulfate (MAGNESIUM SULFATE 4GM/SWFI 10 0ML) 100 ML ASDIR PRN IV (DC) Potassium Chloride (POTASSIUM CHLORIDE 20MEQ TAB .ER) 20 MEQ ASDIR PRN PO (DC) Potassium Chloride (POTASSIUM CHLORIDE 20MEQ TAB .ER) 40 MEQ ASDIR PRN PO (DC) Potassium Chloride (POTASSIUM CHLORIDE 20MEQ TAB .ER) 60 MEQ ASDIR PRN PO (DC) Potassium Chloride (KCL 20MEQ/SWFI 100ML) 100 ML ASDIR PRN IV (DC) Potassium Phosphate (POTASSIUM PHOSPHATE) 15 MM ASDIR PRN IV (DC) Sodium Chloride (SODIUM CHLORIDE 0.9%) 250 ML Physical Exam General appearance: obese, alert, awake, oriente d Head/Eyes: normocephalic ENT: moist mucosal membranes Neck: no JVD Cardiovascular: normal heart sounds, regular rat e rhythm Respiratory: aerating well, clear to auscultatio n, symmetric expansion Abdomen: non-tender, normal bowel sounds, soft, no distention Extremities: b/l feet wound Neuro/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20 Phosphorus (2.5 - 4.9 MG/DL) 4.8 Magnesium (1.80 - 2.40 mg/dL) 2.39 Total Bilirubin (0.0 - 1.0 mg/dL) 0.20 AST (15 - 37 IUnit/L) 16 ALT (30 - 65 IUnit/L) < 7 L Total Alk Phosphatase (20 - 125 IUnit/L) 149 H Total Protein (6.4 - 8.2 g/dL) 6.9 Albumin (3.4 - 5.0 g/dL) 2.60 L 10/15 10/14 10/14 0128 2133 1804 Chemistry POC Glucose (70 - 110 MG/DL) 249 H 224 H 282 H Laboratory Tests 10/15 0630 Hematology WBC (4.5 - 11.0 x10 3/uL) 11.9 H RBC (3.54 - 5.02 x10 6/uL) 3.56 Hgb (11.0 - 15.0 g/dL) 9.2 L Hct (33.0 - 45.0 %) 27.6 L MCV (81.0 - 99.0 fL) 77.5 L MCH (27.0 - 33.0 pg) 25.8 L MCHC (33.0 - 37.0 g/dL) 33.3 RDW (11.5 - 14.5 %) 14.6 H Plt Count (150 - 400 x10 3/uL) 262 MPV (7.0 - 9.0 fL) 11.4 H Neut % (Auto) (56.0 - 77.0 %) 59.3 Lymph % (Auto) (14.0 - 32.0 %) 22.5 [place] % (Auto) (4.8 - 9.0 %) 15.6 H Eos % (Auto) (0.3 - 3.7 %) 0.8 Baso % (Auto) (0.0 - 2.0 %) 0.3 Neut # (Auto) (2.0 - 7.6 x10 3/uL) 7.05 Lymph # (Auto) (1.0 - 3.8 x10 3/uL) 2.68 [place] # (Auto) (0.1 - 0.8 x10 3/uL) 1.85 H Eos # (Auto) (0.0 - 0.2 x10 3/uL) 0.09 Baso # (Auto) (0.0 - 0.2 x10 3/uL) 0.04 Abs Immat Gran (auto) (0.00 - 0.03 x10 3/uL) 0. 18 H Add Manual Diff NO Immature Gran % (0.0 - 2.0 %) 1.5 Nucleated RBC % (0 - 0 %) 0.0 Nucleated RBCs # (Man) (0.0 - 0.1 x10 3/uL) 0.0 0 Radiology data: Recent Impressions: RADIOLOGY - XR CHEST 1 V 10/15 0608 Report Impression - Status: SIGNED Entered: 10/15/2021 0741 IMPRESSION: Mild vascular congestion. No focal airspace cons olidations. Impression By: [email or web address] - Virgil Jaime Diagnosis, Assessment Plan Free Text DxA P Notes Free text DxA P notes: Assessment and plans: Acute respiratory failure: Intubated for airway protection, sedated ICC on board S/p extubation on 10/14 Now saturating well on room air Sepsis: Leukocytosis, tachycardia, JAYLEEN, UA positive for UTI, bilateral foot wounds, low blood pressure Blood culture strep species on 10/08, repeat blo od culture from 10/10 negative, urine culture growing yeast, wound cultu re growing diphtheroids, coag negative staph, E. coli, Enterococcus species Received vancomycin x1 Ancef as per ID ID on board Echo when recommended by ID Wound care nurse consult for bilateral foot wou nd CT abdomen and pelvis unremarkable May need debridement of the left foot wound as per podiatry Unable to MRI, bilateral foot x-ray unremarkabl e for OM On fluconazole for yeast in urine JAYLEEN: Likely secondary to above causes. Patient also received Lasix today 10/10 Avoid nephrotoxic drugs Renal ultrasound Was on dopamine for short duration 10/11 IV fluid hydration - LR DC'd Renal managing On IV Lasix Renal function improving Acute encephalopathy: -due to above causes -treat underlying causes CT head ordered unremarkable 10/11 EEG showing moderate encephalopathy 10/12 Resolved Anemia: No active bleeding noted Monitor H H every 6 hours for 24 hours 10/12 blood transfusion if hemoglobin drops below 7 H H stable Bacteremia Management same as above b/l Foot infected wound Management same as above UTI Management same as above DKA: A1c more than 14 Insulin drip switched to subcu insulin Endocrine managing Constipation: Bowel regimen COVID 19 infection: Patient did not have respiratory distress on ad mission, intubated for airway protection COVID PCR positive Hyponatremia from osmotic hyperglycemia: Corrected sodium is elevated in hyperna tremic range due to severe dehydration Monitor lab -heparin for DVT prophylaxis Diabetic diet Famotidine for GI prophylaxis Morning labs Disposition: On IV antibiotic. On IV Lasix. Eden l function worsening. Awaiting PT/OT eval. Continue ICU care. Quality: Gen Med Crit Care VTE Prophylaxis VTE prophylaxis initiated: yes Current Medications Current medication review: I attest that the foregoing medication list in t medical record is true, accurate, and complete to the best of my knowled ge. Electronically Signed by Laura Trinh MD on 2 at 1516 RPT #:[id number] END OF REPORT 2021-10-15 11:16:00-00:00 [facility] ([facility] Electroencephalogram-EEG REPORT#:[id number] REPORT STATUS: Signed DATE:10/15/21 TIME: 1116 PATIENT: HARLEEN MANZANO UNIT #: [id number] ROOM/BED: [place] [id number] : 80 AGE: 40 SEX: F ATTEND: Shoaib Shepherd MD ADM AUTHOR: Maegan Munoz MD * ALL edits or amendments must be made on the [email or web address] document * Procedure Procedure Date of procedure: 10/15/21 Procedure performed: continuous VEEG Indication: seizure, status epilepticus Impression/Conclusion: Date of procedure: 10/14-10/2021 Procedure performed: continuous VEEG Indication: seizure, status epilepticus Impression/Conclusion: Begin Time: 10/14/2021 226 pm End Time: 10/15/2021 1001am TECHNICAL SUMMARY: This is an adult usp vi bobby electroencephalogram performed using the standard [employer] 10/20 electrode placement system. One channel was used for EOG and other channel was u sed for ECG. This study was retrospectively reviewed. FINDINGS: The background act ivity shows a posterior dominant rhythm 6-7 Hz which is intermittently sustained. There is diffuse sl owing of the background. There are no definite areas of focal abnormaliti es or epileptiform activity noted. The EKG rhythm strip demonstrates a regu lar rhythm and a rate of approximately 60-90 beats per minute. IMPRESSION: This patient's usp vid eo electroencephalogram is abnormal in the presence of diffuse slowing of the b ackground. There are no definite areas of epileptiform activity noted. Electronically Signed by Maegan Munoz MD 11/23/21 at 1937 RPT #:[id number] END OF REPORT 2021-10-14 18:18:00-00:00 [facility] ([facility]) Infectious Dis. Progress Note REPORT#:[id number] REPORT STATUS: Signed DATE:10/14/21 TIME: 1817 PATIENT: HARLEEN MANZANO UNIT #: [id number] ROOM/BED: [place] [id number] : 80 AGE: 40 SEX: F ATTEND: Laura Trinh ADM AUTHOR: Pradip Akhtar MD, MD * ALL edits or amendments must be made on the el [employer]/computer document * Subjective Chief complaint: DKA HPI: 40-year-old female with past medical history sig nificant for diabetes who was found unresponsive by her da ughter for unknown period of time. Her glucose 1095 and WBC 20 1K. Patient was resuscitated, intubated and central line was placed in ED. Unable to obtain: medical condition Review of Systems Unable to obtain due to: mc Objective General VS/I O: Vital Signs Date Temp Pulse Resp B/P B/P Mean Pulse Ox FiO2 07/05-10/14 96.6-98.6 62-91 17-45 141-183/67-99 97-131 100 40 Last Documented: Result Date Time Pulse Ox 100 07/06 1204 FiO2 40 07/06 1204 Pulse 86 07/06 1204 O2 Delivery Ventilator 07/06 0800 B/P 146/69 07/06 0630 B/P Mean 99 07/06 0630 Temp 97.9 07/06 0630 Resp 18 07/06 0630 O2 Flow Rate 15.0 07/03 1600 Vital Signs: Date Time Temp Pulse Resp B/P B/P Pulse O2 O2 F low FiO2 Mean Ox Delivery Rate /06 1204 86 100 40 07/06 0800 Ventilator 07/06 0750 100 Ventilator 40 07/06 0750 71 100 40 07/06 0630 97.9 69 18 146/69 99 100 07/06 0600 97.5 69 18 144/68 98 100 07/06 0530 98.1 71 17 142/67 97 100 07/06 0500 98.4 75 22 142/67 97 100 07/06 0400 98.3 07/06 0400 98.6 81 31 170/83 119 100 07/06 0330 98.4 72 18 161/78 112 100 07/06 0315 98.4 69 21 163/78 112 100 07/06 0308 69 100 40 07/06 0300 98.2 74 19 170/78 116 100 07/06 0245 98.1 78 21 176/85 122 100 07/06 0230 97.9 82 29 176/89 125 100 07/06 0215 97.5 91 22 183/90 129 100 07/06 0200 97.3 74 18 155/78 110 100 07/06 0145 97.2 84 22 176/97 126 100 07/06 0130 97.0 66 22 153/84 112 100 07/06 0115 97.0 68 24 151/76 110 100 07/06 0100 96.8 72 18 156/89 117 100 07/06 0045 96.8 75 17 155/88 115 100 07/06 0030 96.8 62 18 150/82 110 100 07/06 0015 97.0 62 18 150/83 110 100 07/06 0000 97.2 07/06 0000 97.0 63 18 151/84 111 100 07/05 2345 97.0 65 20 154/85 113 100 07/05 2330 96.8 68 23 157/81 113 100 07/05 2315 96.8 82 38 163/84 116 100 07/05 2302 83 100 40 07/05 2300 96.8 89 45 183/99 131 100 07/05 2245 96.8 69 22 147/84 109 100 07/05 2230 96.8 72 30 141/81 104 100 07/05 2215 96.8 69 23 143/84 108 100 07/05 2200 96.6 64 20 148/80 110 100 07/05 2145 96.8 64 19 150/87 113 100 07/05 2130 96.8 64 18 148/86 111 100 07/05 2115 96.8 64 18 148/85 111 100 07/05 2099 97.0 64 18 148/85 111 100 07/05 2044 97.0 64 18 148/85 110 100 07/05 2029 97.0 65 19 150/85 112 100 07/05 2014 97.0 66 20 152/85 112 100 07/05 1999 97.0 40 07/05 1999 Ventilator 40 07/05 1999 97.0 68 18 154/81 111 100 07/05 3 69 100 40 07/05 5 97.0 77 40 161/95 120 100 07/05 1930 97.0 66 18 146/88 112 100 07/05 1915 97.0 66 18 145/87 111 100 07/05 1902 97.0 68 17 100 07/05 1900 97.0 69 19 145/86 110 100 07/05 1845 97.0 66 18 149/88 113 100 07/05 1830 97.0 66 18 149/84 110 100 24 hour I O ending at 0700: 07/06 0700 07/05 1900 Intake Total 961.39 1012.79 Output Total 1475 2600 Balance -513.61 -1587.21 Intake, Free 60 60 Water Intake, IV 205.39 395.79 Intake, Tube 696 557 Feeding Number 1 1 Bowel Movements Output, Urine 1475 2600 Patient 171.5 kg Weight Weight Bed scale Measurement Method PATIENT WEIGHT: Weight (lb): 378 Weight (oz): 8.54 Weight (kg): 171.700 Medications: Active Meds + DC'd Last 24 Hrs Furosemide (LASIX 20MG INJ) 20 MG BID 9A 5P IV Insulin Glargine (Lantus/Semglee) 36 UNIT BID BLANKENSHIP BQ (DC) Insulin Glargine (Lantus/Semglee) 30 UNIT BID BLANKENSHIP BQ Furosemide (LASIX 20MG INJ) 20 MG ONCE ONE IV (D C) Insulin Glargine (Lantus/Semglee) 10 UNIT ONCE O NE SUBQ (DC) Sodium Hypochlorite (DAKIN'S 1/2 STRENGTH 0.25% 480 ML TOP SOLN) 1 APPLIC DAILY TOPICAL Insulin Glargine (Lantus/Semglee) 20 UNIT BID BLANKENSHIP BQ (DC) Fluconazole/Sodium Chloride (FLUCONAZOLE 200MG/N S 100ML) 100 ML DAILY IV Dexmedetomidine/Sodium Chloride (PRECEDEX 1000MC G/NS 250ML) 250 ML ASDIR IV Metoclopramide HCl (REGLAN) 5 MG Q8H IV Labetalol HCl (LABETALOL HCL) 20 MG Q6H PRN PRN IV Polyethylene Glycol (MIRALAX) 17 GM BID FEED-TUB E Senna/Docusate Sodium (SENOKOT S) 2 TAB DAILY FE ED-TUBE Insulin Human Lispro (HUMALOG) 0 Q4H SUBQ Cefazolin Sodium (KEFZOL OR ANCEF) 1 GM Q12H IV Sodium Chloride (SODIUM CHLORIDE) 10 ML Heparin Sodium (HEPARIN 5000 UNITS/ML) 5,000 UNI T Q8H SUBQ Propofol (DIPRIVAN 1,000MG/100ML) 100 ML TITRATE IV (CKD) Lactated Ringer's (LACTATED RINGERS) 1,000 ML DIAZ EVANGELINA IV Famotidine (PEPCID) 20 MG Q12HR IV (DC) Fentanyl Citrate (Fentanyl 2,500MCG/NS 250ML) 25 0 ML ASDIR IV (DC) Dextrose/Water (DEXTROSE 50% W SYRINGE) 50 ML DIR PRN IV (CKD) Dextrose/Water (Dextrose 10% W) 1,000 ML ASDIR I V Magnesium Sulfate (MAGNESIUM SULFATE 2GM/SWFI 50 ML) 50 ML ASDIR PRN IV Magnesium Sulfate (MAGNESIUM SULFATE 4GM/SWFI 10 0ML) 100 ML ASDIR PRN IV Potassium Chloride (POTASSIUM CHLORIDE 20MEQ TAB .ER) 20 MEQ ASDIR PRN PO Potassium Chloride (POTASSIUM CHLORIDE 20MEQ TAB .ER) 40 MEQ ASDIR PRN PO Potassium Chloride (POTASSIUM CHLORIDE 20MEQ TAB .ER) 60 MEQ ASDIR PRN PO (CKD) Potassium Chloride (KCL 20MEQ/SWFI 100ML) 100 ML ASDIR PRN IV Potassium Phosphate (POTASSIUM PHOSPHATE) 15 MM ASDIR PRN IV Sodium Chloride (SODIUM CHLORIDE 0.9%) 250 ML Physical Exam General appearance: lethargic Head/Eyes: atraumatic, normocephalic Neck: non-tender, supple/no meningismus Cardiovascular: normal heart sounds, no murmur Respiratory: clear to auscultation, symmetric ex pansion Abdomen: non-tender, soft Extremities: no clubbing Results Findings/Data: Laboratory Tests 10/14 310 Blood Gas Puncture Site R Radial O2 Saturation (90 - 100 %) 97.2 ABG pH (7.35 - 7.45) 7.376 ABG pCO2 (35.0 - 45 mmHg) 35.9 ABG pO2 (80 - 100.0 mmHg) 93.8 ABG PO2/FiO2 Ratio (mm/Hg) 234.50 ABG HCO3 (22.0 - 26.0 MMOL/L) 21.1 L ABG Total CO2 22.2 ABG Base Excess (-4.0 - 4.0 MMOL/L) -4.1 L Sintia Test Positive O2 Delivery Device Adult Vent Vent Mode AC Vent Rate (/MIN) 18 FiO2 (%) 40 Tidal Volume (ml) 500 PEEP (cmH2O) 5 Laboratory Tests 10/14 10/14 10/14 10/14 10/13 1217 0948 0515 0021 2000 Chemistry Sodium (134 - 147 mEq/L) 139 Potassium (3.4 - 5.0 mEq/L) 4.1 Chloride (100 - 108 mEq/L) 103 Carbon Dioxide (21 - 33 mEq/l) 22 Anion Gap (0 - 20) 18 BUN (7 - 18 mg/dL) 68 H Creatinine (0.6 - 1.3 mg/dL) 5.1 H Glomerular Filtr Rate (95 - 105) 11.3 L Glucose (70 - 110 mg/dL) 401 H POC Glucose (70 - 110 MG/DL) 286 H 311 H 303 H 240 H Calcium (8.0 - 10.5 mg/dL) 8.6 Ionized Calcium Jay (1.12 - 1.32 MMOL/L) 1.18 Phosphorus (2.5 - 4.9 MG/DL) 5.2 H Magnesium (1.80 - 2.40 mg/dL) 2.51 H Total Bilirubin (0.0 - 1.0 mg/dL) 0.20 AST (15 - 37 IUnit/L) 18 ALT (30 - 65 IUnit/L) < 7 L Total Alk Phosphatase (20 - 125 IUnit/L) 153 H Total Protein (6.4 - 8.2 g/dL) 6.6 Albumin (3.4 - 5.0 g/dL) 2.50 L Laboratory Tests 10/14 514 Hematology WBC (4.5 - 11.0 x10 3/uL) 12.1 H RBC (3.54 - 5.02 x10 6/uL) 3.27 L Hgb (11.0 - 15.0 g/dL) 8.5 L Hct (33.0 - 45.0 %) 25.6 L MCV (81.0 - 99.0 fL) 78.3 L MCH (27.0 - 33.0 pg) 26.0 L MCHC (33.0 - 37.0 g/dL) 33.2 RDW (11.5 - 14.5 %) 14.8 H Plt Count (150 - 400 x10 3/uL) 223 MPV (7.0 - 9.0 fL) 11.8 H Neut % (Auto) (56.0 - 77.0 %) 71.5 Lymph % (Auto) (14.0 - 32.0 %) 15.0 [place] % (Auto) (4.8 - 9.0 %) 11.6 H Eos % (Auto) (0.3 - 3.7 %) 0.3 Baso % (Auto) (0.0 - 2.0 %) 0.2 Neut # (Auto) (2.0 - 7.6 x10 3/uL) 8.63 H Lymph # (Auto) (1.0 - 3.8 x10 3/uL) 1.81 [place] # (Auto) (0.1 - 0.8 x10 3/uL) 1.40 H Eos # (Auto) (0.0 - 0.2 x10 3/uL) 0.04 Baso # (Auto) (0.0 - 0.2 x10 3/uL) 0.02 Abs Immat Gran (auto) (0.00 - 0.03 x10 3/uL) 0. 17 H Add Manual Diff NO Immature Gran % (0.0 - 2.0 %) 1.4 Nucleated RBC % (0 - 0 %) 0.0 Nucleated RBCs # (Man) (0.0 - 0.1 x10 3/uL) 0.0 0 Radiology data: Recent Impressions: RADIOLOGY - XR CHEST 1 V 10/14 0542 Report Impression - Status: SIGNED Entered: 10/14/2021 0755 IMPRESSION: 1. There are prominent bilateral interstitial marleny ng markings. This may be due to pulmonary edema or atypical pneumo nitis. 2. There are opacities in the right lung base. T his may be due to the alveolar component of pulmonary edema, atele ctasis, or pneumonia. Impression By: [email or web address] - Abdi Bradford M.D. Results: labs reviewed, turner l signs reviewed, x-ray personally reviewed, current med profile rev'd Treatment Prophylaxis Treatment Prophylaxis CVC/PICC documentation: The data below has been imported from nursing do cumentation. Any exceptions have been noted below under Provider comments. CVC/PICC insertion date/time: CVC multi lumen tr iple Internal jugular Right Inserted 10/08/212143 Provider comments on imported nursing data: [] Diagnosis, Assessment Plan Problem List/A P: 1. DKA (diabetic ketoacidosis) 2. COVID 3. JAYLEEN (acute kidney injury) 4. Severe sepsis 5. Metabolic encephalopathy Free Text A P: Severe DKA, intubated due to AMS COVID without pnuemonia or hypoxia Strep mitis on blood 10/08, repeat 10/10 negative L foot wound culture E coli and Enterococcus JAYLEEN, Nephrology monitoring for HD need AMS improved and extubated 10/14 On Ancef will follow Electronically Signed by Pradip Akhtar MD, MD on at 1820 RPT #:[id number] END OF REPORT 2021-10-14 18:13:00-00:00 [facility] ([facility]) Electroencephalogram-EEG REPORT#:[id number] REPORT STATUS: Signed DATE:10/14/21 TIME: 1812 PATIENT: HARLEEN MANZANO UNIT #: [id number] ROOM/BED: [place] [address] : 80 AGE: 40 SEX: F ATTEND: Shoaib Shepherd MD ADM AUTHOR: Maegan Munoz MD * ALL edits or amendments must be made on the [email or web address]/computer document * Procedure Procedure Date of procedure: 10/14/21 Procedure performed: continuous VEEG Indication: seizure, status epilepticus Impression/Conclusion: Date of procedure: 10/14/2021 Procedure performed: continuous VEEG Indication: seizure, status epilepticus Impression/Conclusion: Begin Time: 10/14/2021 626 am End Time: 10/14/2021 226 pm TECHNICAL SUMMARY: This is an adult usp vi bobby electroencephalogram performed using the standard [employer] 10/20 electrode placement system. One channel was used for EOG and other channel was u sed for ECG. This study was retrospectively reviewed. FINDINGS: The background act ivity shows a posterior dominant rhythm 6-7 Hz which is intermittently sustained. There is diffuse sl owing of the background. Occasional triphasic waves are seen with no kathie r laterality. There are no definite areas of focal abnormaliti es or epileptiform activity noted. The EKG rhythm strip demonstrates a regu lar rhythm and a rate of approximately 60-90 beats per minute. IMPRESSION: This patient's usp vid eo electroencephalogram is abnormal in the presence of diffuse slowing of the b ackground. There are no definite areas of epileptiform activity noted. Electronically Signed by Maegan Munoz MD o n 11/23/21 at 1936 RPT #:[id number] END OF REPORT 2021-10-14 16:16:00-00:00 [facility] Nephrology Progress Note REPORT#:[id number] REPORT STATUS: Signed DATE:10/14/21 TIME: 1616 PATIENT: HARLEEN MANZANO UNIT #: [id number] ROOM/BED: [place] [id number] : 80 AGE: 40 SEX: F ATTEND: Laura Trinh ADM AUTHOR: Mary Steiner MD * ALL edits or amendments must be made on the [email or web address]/computer document * Subjective Chief complaint: Chart reviewed Events noted Off sedation and following commands Objective General VS/I O: Vital Signs: Date Time Temp Pulse Resp B/P B/P Pulse O2 O2 F low FiO2 Mean Ox Delivery Rate 10/14 1204 86 100 40 07/06 0800 Ventilator / 0750 100 Ventilator 40 07/06 0750 71 100 40 07/06 0630 36.6 69 18 146/69 99 100 07/06 0600 36.4 69 18 144/68 98 100 07/06 0530 36.7 71 17 142/67 97 100 07/06 0500 36.9 75 22 142/67 97 100 07/06 0400 36.8 07/06 0400 37.0 81 31 170/83 119 100 07/06 0330 36.9 72 18 161/78 112 100 07/06 0315 36.9 69 21 163/78 112 100 07/06 0308 69 100 40 07/06 0300 36.8 74 19 170/78 116 100 07/06 0245 36.7 78 21 176/85 122 100 07/06 0230 36.6 82 29 176/89 125 100 07/06 0215 36.4 91 22 183/90 129 100 07/06 0200 36.3 74 18 155/78 110 100 07/06 0145 36.2 84 22 176/97 126 100 07/06 0130 36.1 66 22 153/84 112 100 07/06 0115 36.1 68 24 151/76 110 100 07/06 0100 36.0 72 18 156/89 117 100 07/06 0045 36.0 75 17 155/88 115 100 07/06 0030 36.0 62 18 150/82 110 100 07/06 0015 36.1 62 18 150/83 110 100 07/06 0000 36.2 07/06 0000 36.1 63 18 151/84 111 100 07/05 2345 36.1 65 20 154/85 113 100 07/05 2330 36.0 68 23 157/81 113 100 07/05 2315 36.0 82 38 163/84 116 100 07/05 2302 83 100 40 07/05 2300 36.0 89 45 183/99 131 100 07/05 2245 36.0 69 22 147/84 109 100 07/05 2230 36.0 72 30 141/81 104 100 07/05 2215 36.0 69 23 143/84 108 100 07/05 2200 35.9 64 20 148/80 110 100 07/05 2145 36.0 64 19 150/87 113 100 07/05 2130 36.0 64 18 148/86 111 100 07/05 2115 36.0 64 18 148/85 111 100 07/05 2100 36.1 64 18 148/85 111 100 07/05 2045 36.1 64 18 148/85 110 100 07/05 2030 36.1 65 19 150/85 112 100 07/05 2015 36.1 66 20 152/85 112 100 07/05 1999 36.1 40 07/05 1999 Ventilator 40 07/05 1999 36.1 68 18 154/81 111 100 07/05 1953 69 100 40 07/05 1945 36.1 77 40 161/95 120 100 07/05 1930 36.1 66 18 146/88 112 100 07/05 1915 36.1 66 18 145/87 111 100 07/05 1902 36.1 68 17 100 07/05 1900 36.1 69 19 145/86 110 100 07/05 1845 36.1 66 18 149/88 113 100 07/05 1830 36.1 66 18 149/84 110 100 07/05 1815 36.1 66 18 149/81 109 100 07/05 1800 36.1 76 18 154/93 116 100 07/05 1745 36.1 65 18 145/84 109 100 07/05 1730 36.2 66 18 142/83 107 100 07/05 1715 36.2 67 18 143/87 108 100 07/05 1700 36.2 67 18 143/82 108 100 07/05 1645 36.3 69 19 141/85 108 100 07/05 1630 36.3 72 23 139/86 106 100 24 hour I O ending at 0700: 10/14 0700 07 1900 Intake Total 961.39 1012.79 Output Total 1475 2600 Balance -513.61 -1587.21 Intake, Free 60 60 Water Intake, IV 205.39 395.79 Intake, Tube 696 557 Feeding Number 1 1 Bowel Movements Output, Urine 1475 2600 Patient 171.5 kg Weight Weight Bed scale Measurement Method PATIENT WEIGHT: Weight (lb): 378 Weight (oz): 8.54 Weight (kg): 171.700 Medications Active Meds + DC'd Last 24 Hrs Insulin Glargine (Lantus/Semglee) 36 UNIT BID BLANKENSHIP BQ (DC) Insulin Glargine (Lantus/Semglee) 30 UNIT BID BLANKENSHIP BQ Furosemide (LASIX 20MG INJ) 20 MG ONCE ONE IV (D C) Insulin Glargine (Lantus/Semglee) 10 UNIT ONCE O NE SUBQ (DC) Sodium Hypochlorite (DAKIN'S 1/2 STRENGTH 0.25% 480 ML TOP SOLN) 1 APPLIC DAILY TOPICAL Insulin Glargine (Lantus/Semglee) 15 UNIT BID BLANKENSHIP BQ (CAN) Insulin Glargine (Lantus/Semglee) 20 UNIT BID BLANKENSHIP BQ (DC) Fluconazole/Sodium Chloride (FLUCONAZOLE 200MG/N S 100ML) 100 ML DAILY IV Dexmedetomidine/Sodium Chloride (PRECEDEX 1000MC G/NS 250ML) 250 ML ASDIR IV Metoclopramide HCl (REGLAN) 5 MG Q8H IV Labetalol HCl (LABETALOL HCL) 20 MG Q6H PRN PRN IV Polyethylene Glycol (MIRALAX) 17 GM BID FEED-TUB E Senna/Docusate Sodium (SENOKOT S) 2 TAB DAILY FE ED-TUBE Insulin Human Lispro (HUMALOG) 0 Q4H SUBQ Cefazolin Sodium (KEFZOL OR ANCEF) 1 GM Q12H IV Sodium Chloride (SODIUM CHLORIDE) 10 ML Heparin Sodium (HEPARIN 5000 UNITS/ML) 5,000 UNI T Q8H SUBQ Propofol (DIPRIVAN 1,000MG/100ML) 100 ML TITRATE IV (CKD) Lactated Ringer's (LACTATED RINGERS) 1,000 ML IDAZ EVANGELINA IV Famotidine (PEPCID) 20 MG Q12HR IV (DC) Fentanyl Citrate (Fentanyl 2,500MCG/NS 250ML) 25 0 ML ASDIR IV (DC) Dextrose/Water (DEXTROSE 50% W SYRINGE) 50 ML DIR PRN IV (CKD) Dextrose/Water (Dextrose 10% W) 1,000 ML ASDIR I V Magnesium Sulfate (MAGNESIUM SULFATE 2GM/SWFI 50 ML) 50 ML ASDIR PRN IV Magnesium Sulfate (MAGNESIUM SULFATE 4GM/SWFI 10 0ML) 100 ML ASDIR PRN IV Potassium Chloride (POTASSIUM CHLORIDE 20MEQ TAB .ER) 20 MEQ ASDIR PRN PO Potassium Chloride (POTASSIUM CHLORIDE 20MEQ TAB .ER) 40 MEQ ASDIR PRN PO Potassium Chloride (POTASSIUM CHLORIDE 20MEQ TAB .ER) 60 MEQ ASDIR PRN PO (CKD) Potassium Chloride (KCL 20MEQ/SWFI 100ML) 100 ML ASDIR PRN IV Potassium Phosphate (POTASSIUM PHOSPHATE) 15 MM ASDIR PRN IV Sodium Chloride (SODIUM CHLORIDE 0.9%) 250 ML Physical Exam General appearance: respiratory support, awake ENT: ET tube Cardiovascular: regular rate and rhythm Respiratory: decreased breath sounds Abdomen: soft, obese Genitourinary: urinary catheter Extremities: swelling Neuro/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 OPERATOR: alert, follows commands Results Findings/Data: Laboratory Tests 10/14 310 Blood Gas Puncture Site R Radial O2 Saturation (90 - 100 %) 97.2 ABG pH (7.35 - 7.45) 7.376 ABG pCO2 (35.0 - 45 mmHg) 35.9 ABG pO2 (80 - 100.0 mmHg) 93.8 ABG PO2/FiO2 Ratio (mm/Hg) 234.50 ABG HCO3 (22.0 - 26.0 MMOL/L) 21.1 L ABG Total CO2 22.2 ABG Base Excess (-4.0 - 4.0 MMOL/L) -4.1 L Sintia Test Positive O2 Delivery Device Adult Vent Vent Mode AC Vent Rate (/MIN) 18 FiO2 (%) 40 Tidal Volume (ml) 500 PEEP (cmH2O) 5 Laboratory Tests 10/1448 0515 1 2000 1639 Chemistry Sodium (134 - 147 mEq/L) 139 Potassium (3.4 - 5.0 mEq/L) 4.1 Chloride (100 - 108 mEq/L) 103 Carbon Dioxide (21 - 33 mEq/l) 22 Anion Gap (0 - 20) 18 BUN (7 - 18 mg/dL) 68 H Creatinine (0.6 - 1.3 mg/dL) 5.1 H Glomerular Filtr Rate (95 - 105) 11.3 L Glucose (70 - 110 mg/dL) 401 H POC Glucose (70 - 110 MG/DL) 311 H 303 H 240 H 226 H Calcium (8.0 - 10.5 mg/dL) 8.6 Ionized Calcium Jay (1.12 - 1.32 1.18 MMOL/L) Phosphorus (2.5 - 4.9 MG/DL) 5.2 H Magnesium (1.80 - 2.40 mg/dL) 2.51 H Total Bilirubin (0.0 - 1.0 mg/dL) 0.20 AST (15 - 37 IUnit/L) 18 ALT (30 - 65 IUnit/L) < 7 L Total Alk Phosphatase (20 - 125 153 H IUnit/L) Total Protein (6.4 - 8.2 g/dL) 6.6 Albumin (3.4 - 5.0 g/dL) 2.50 L Laboratory Tests 10/14 514 Hematology WBC (4.5 - 11.0 x10 3/uL) 12.1 H RBC (3.54 - 5.02 x10 6/uL) 3.27 L Hgb (11.0 - 15.0 g/dL) 8.5 L Hct (33.0 - 45.0 %) 25.6 L MCV (81.0 - 99.0 fL) 78.3 L MCH (27.0 - 33.0 pg) 26.0 L MCHC (33.0 - 37.0 g/dL) 33.2 RDW (11.5 - 14.5 %) 14.8 H Plt Count (150 - 400 x10 3/uL) 223 MPV (7.0 - 9.0 fL) 11.8 H Neut % (Auto) (56.0 - 77.0 %) 71.5 Lymph % (Auto) (14.0 - 32.0 %) 15.0 [place] % (Auto) (4.8 - 9.0 %) 11.6 H Eos % (Auto) (0.3 - 3.7 %) 0.3 Baso % (Auto) (0.0 - 2.0 %) 0.2 Neut # (Auto) (2.0 - 7.6 x10 3/uL) 8.63 H Lymph # (Auto) (1.0 - 3.8 x10 3/uL) 1.81 [place] # (Auto) (0.1 - 0.8 x10 3/uL) 1.40 H Eos # (Auto) (0.0 - 0.2 x10 3/uL) 0.04 Baso # (Auto) (0.0 - 0.2 x10 3/uL) 0.02 Abs Immat Gran (auto) (0.00 - 0.03 x10 3/uL) 0. 17 H Add Manual Diff NO Immature Gran % (0.0 - 2.0 %) 1.4 Nucleated RBC % (0 - 0 %) 0.0 Nucleated RBCs # (Man) (0.0 - 0.1 x10 3/uL) 0.0 0 Diagnosis, Assessment Plan Free Text A P: JAYLEEN Fluid overload Hypokalemia Hypophosphatemia DKA Respiratory failure COVID+ Left foot wound culture with E.coli and Enteroco ccus JAYLEEN likely 2/2 ATN Cr continues to rise but good UOP Another dose of Lasix given today. Will schedule this for now to help with volume status Potassium and phosphorus improved after repletio n Acidosis also better No emergent indication for dialysis yet, but jenae l continue to monitor renal indices closely Electronically Signed by Mary Steiner MD on 0 10/14/21 at 1620 RPT #:[id number] END OF REPORT 2021-10-14 15:32:00-00:00 [facility] ([facility]) Critical Care Progress Note REPORT#:[id number] REPORT STATUS: Signed DATE:10/14/21 TIME: 1531 PATIENT: HARLEEN MANZANO UNIT #: [id number] ROOM/BED: [address] : 80 AGE: 40 SEX: F ATTEND: Laura Trinh ADM AUTHOR: Greg Mallory MD * ALL edits or amendments must be made on the [email or web address]/computer document * Subjective Chief complaint: AMS HPI: 40 year old female with hist ory of DM, obesity. Presented to [facility] on with complaints of lethar gy, weakness, nausea, and vomiting. Pt was intubated for airway protection then t x to [facility] d/t bed availabilty. She was found to be in DKA and +COVID. Blood cultures were positive for alpha strep. Comments: Interval history- Patient was awake off sedation following command s. SBT done and was extubated Objective General VS/I O Last Documented: Result Date Time Pulse Ox 100 10/14 1204 FiO2 40 10/14 1204 Pulse 86 10/14 1204 O2 Delivery Ventilator 10/14 0800 B/P 146/69 10/14 0630 B/P Mean 99 10/14 0630 Temp 36.6 10/14 0630 Resp 18 10/14 0630 O2 Flow Rate 15.0 10/11 1600 24 hour I O ending at 0700: 06 0700 07/ 1900 Intake Total 961.39 1012.79 Output Total 1475 2600 Balance -513.61 -1587.21 Intake, Free 60 60 Water Intake, IV 205.39 395.79 Intake, Tube 696 557 Feeding Number 1 1 Bowel Movements Output, Urine 1475 2600 Patient 171.5 kg Weight Weight Bed scale Measurement Method PATIENT WEIGHT: Weight (lb): 378 Weight (oz): 1.48 Weight (kg): 171.500 Medications: Active Meds + DC'd Last 24 Hrs Insulin Glargine (Lantus/Semglee) 36 UNIT BID BLANKENSHIP BQ (DC) Insulin Glargine (Lantus/Semglee) 30 UNIT BID BLANKENSHIP BQ Furosemide (LASIX 20MG INJ) 20 MG ONCE ONE IV (D C) Insulin Glargine (Lantus/Semglee) 10 UNIT ONCE O NE SUBQ (DC) Sodium Hypochlorite (DAKIN'S 1/2 STRENGTH 0.25% 480 ML TOP SOLN) 1 APPLIC DAILY TOPICAL Insulin Glargine (Lantus/Semglee) 15 UNIT BID BLANKENSHIP BQ (CAN) Insulin Glargine (Lantus/Semglee) 20 UNIT BID BLANKENSHIP BQ (DC) Fluconazole/Sodium Chloride (FLUCONAZOLE 200MG/N S 100ML) 100 ML DAILY IV Dexmedetomidine/Sodium Chloride (PRECEDEX 1000MC G/NS 250ML) 250 ML ASDIR IV Metoclopramide HCl (REGLAN) 5 MG Q8H IV Labetalol HCl (LABETALOL HCL) 20 MG Q6H PRN PRN IV Polyethylene Glycol (MIRALAX) 17 GM BID FEED-TUB E Senna/Docusate Sodium (SENOKOT S) 2 TAB DAILY FE ED-TUBE Insulin Human Lispro (HUMALOG) 0 Q4H SUBQ Cefazolin Sodium (KEFZOL OR ANCEF) 1 GM Q12H IV Sodium Chloride (SODIUM CHLORIDE) 10 ML Heparin Sodium (HEPARIN 5000 UNITS/ML) 5,000 UNI T Q8H SUBQ Propofol (DIPRIVAN 1,000MG/100ML) 100 ML TITRATE IV (CKD) Lactated Ringer's (LACTATED RINGERS) 1,000 ML DIAZ EVANGELINA IV Famotidine (PEPCID) 20 MG Q12HR IV (DC) Fentanyl Citrate (Fentanyl 2,500MCG/NS 250ML) 25 0 ML ASDIR IV (DC) Dextrose/Water (DEXTROSE 50% W SYRINGE) 50 ML DIR PRN IV (CKD) Dextrose/Water (Dextrose 10% W) 1,000 ML ASDIR I V Magnesium Sulfate (MAGNESIUM SULFATE 2GM/SWFI 50 ML) 50 ML ASDIR PRN IV Magnesium Sulfate (MAGNESIUM SULFATE 4GM/SWFI 10 0ML) 100 ML ASDIR PRN IV Potassium Chloride (POTASSIUM CHLORIDE 20MEQ TAB .ER) 20 MEQ ASDIR PRN PO Potassium Chloride (POTASSIUM CHLORIDE 20MEQ TAB .ER) 40 MEQ ASDIR PRN PO Potassium Chloride (POTASSIUM CHLORIDE 20MEQ TAB .ER) 60 MEQ ASDIR PRN PO (CKD) Potassium Chloride (KCL 20MEQ/SWFI 100ML) 100 ML ASDIR PRN IV Potassium Phosphate (POTASSIUM PHOSPHATE) 15 MM ASDIR PRN IV Sodium Chloride (SODIUM CHLORIDE 0.9%) 250 ML Physical Exam Head/eyes: atraumatic, clear cornea, normal eyel ids/periorb. ENT: moist mucosal membranes, normal dentition, normal nose Neck: full range of motion, non-tender, no JVD, no masses or swelling Cardiovascular: normal capillary refill, normal heart sounds, regular rate and rhythm Respiratory: aerating well, clear to auscultatio n, symmetric expansion Abdomen: obese, soft, non-tender, normal bowel s ounds Genitourinary: urinary catheter Extremities: moves all, no cyanosis, no edema Musculoskeletal normal inspection 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, disoriented, n o motor deficits, no sensory deficits Skin: dry, intact Psychiatry: unable to evaluate Results Findings/data: Laboratory Tests 10/14 031 Blood Gas Puncture Site R Radial O2 Saturation (90 - 100 %) 97.2 ABG pH (7.35 - 7.45) 7.376 ABG pCO2 (35.0 - 45 mmHg) 35.9 ABG pO2 (80 - 100.0 mmHg) 93.8 ABG PO2/FiO2 Ratio (mm/Hg) 234.50 ABG HCO3 (22.0 - 26.0 MMOL/L) 21.1 L ABG Total CO2 22.2 ABG Base Excess (-4.0 - 4.0 MMOL/L) -4.1 L Sintia Test Positive O2 Delivery Device Adult Vent Vent Mode AC Vent Rate (/MIN) 18 FiO2 (%) 40 Tidal Volume (ml) 500 PEEP (cmH2O) 5 Laboratory Tests 10/14 10/14 10/14 10/13 10/13 0948 0515 0021 2000 1639 Chemistry Sodium (134 - 147 mEq/L) 139 Potassium (3.4 - 5.0 mEq/L) 4.1 Chloride (100 - 108 mEq/L) 103 Carbon Dioxide (21 - 33 mEq/l) 22 Anion Gap (0 - 20) 18 BUN (7 - 18 mg/dL) 68 H Creatinine (0.6 - 1.3 mg/dL) 5.1 H Glomerular Filtr Rate (95 - 105) 11.3 L Glucose (70 - 110 mg/dL) 401 H POC Glucose (70 - 110 MG/DL) 311 H 303 H 240 H 226 H Calcium (8.0 - 10.5 mg/dL) 8.6 Ionized Calcium Jay (1.12 - 1.32 1.18 MMOL/L) Phosphorus (2.5 - 4.9 MG/DL) 5.2 H Magnesium (1.80 - 2.40 mg/dL) 2.51 H Total Bilirubin (0.0 - 1.0 mg/dL) 0.20 AST (15 - 37 IUnit/L) 18 ALT (30 - 65 IUnit/L) < 7 L Total Alk Phosphatase (20 - 125 153 H IUnit/L) Total Protein (6.4 - 8.2 g/dL) 6.6 Albumin (3.4 - 5.0 g/dL) 2.50 L Laboratory Tests 10/14 0515 Hematology WBC (4.5 - 11.0 x10 3/uL) 12.1 H RBC (3.54 - 5.02 x10 6/uL) 3.27 L Hgb (11.0 - 15.0 g/dL) 8.5 L Hct (33.0 - 45.0 %) 25.6 L MCV (81.0 - 99.0 fL) 78.3 L MCH (27.0 - 33.0 pg) 26.0 L MCHC (33.0 - 37.0 g/dL) 33.2 RDW (11.5 - 14.5 %) 14.8 H Plt Count (150 - 400 x10 3/uL) 223 MPV (7.0 - 9.0 fL) 11.8 H Neut % (Auto) (56.0 - 77.0 %) 71.5 Lymph % (Auto) (14.0 - 32.0 %) 15.0 [place] % (Auto) (4.8 - 9.0 %) 11.6 H Eos % (Auto) (0.3 - 3.7 %) 0.3 Baso % (Auto) (0.0 - 2.0 %) 0.2 Neut # (Auto) (2.0 - 7.6 x10 3/uL) 8.63 H Lymph # (Auto) (1.0 - 3.8 x10 3/uL) 1.81 [place] # (Auto) (0.1 - 0.8 x10 3/uL) 1.40 H Eos # (Auto) (0.0 - 0.2 x10 3/uL) 0.04 Baso # (Auto) (0.0 - 0.2 x10 3/uL) 0.02 Abs Immat Gran (auto) (0.00 - 0.03 x10 3/uL) 0. 17 H Add Manual Diff NO Immature Gran % (0.0 - 2.0 %) 1.4 Nucleated RBC % (0 - 0 %) 0.0 Nucleated RBCs # (Man) (0.0 - 0.1 x10 3/uL) 0.0 0 Laboratory Tests 10/14/21 0515: [Embedded Image Not Available] Microbiology: 10/13 152 URINE: Urine Culture - RES YEAST Radiology data Recent Impressions: RADIOLOGY - XR CHEST 1 V 10/14 0542 Report Impression - Status: SIGNED Entered: 10/14/2021 0755 IMPRESSION: 1. There are prominent bilateral interstitial marleny ng markings. This may be due to pulmonary edema or atypical pneumo nitis. 2. There are opacities in the right lung base. T his may be due to the alveolar component of pulmonary edema, atele ctasis, or pneumonia. Impression By: [email or web address] - Abdi Bradford M.D. Diagnosis, Assessment Plan Problem list/A P: 1. DKA (diabetic ketoacidosis) 2. Respiratory failure 3. COVID 4. JAYLEEN (acute kidney injury) 5. Hyperkalemia 6. Severe sepsis 7. Metabolic encephalopathy Free text A P: 40-year-old female admitted to ICU Acute respiratory failure requiring intubation d ue to mental status change Altered mental status likely metabolic encephalo antonio DKA with acidosis severe pH was less than 6.9 JAYLEEN with worsening renal function Diabetes with hemoglobin A1c more than 14 Bacteremia with alpha Streptococcus species COVID-positive She was awake and following commands, extubated. 2 L nasal cannula saturating well. Creatinine increasing but she has good urine out put. We will give 1 dose of Lasix to help with diuresis so that we can extubate her. Chest x-ray also shows features of pulmonary edema. Renal is following. She is on cefazolin. ID following EEG has been negative. Insulin is being adjusted for blood sugars. By e ndocrine. She is n.p.o. After bedside swallow can start her on diabetic diet. Heparin subcu for DVT prophylaxis PT OT eval Total critical care time 35 minutes Electronically Signed by Greg Mallory MD on 0 10/14/21 at 1555 RPT #:[id number] END OF REPORT 2021-10-14 13:29:00-00:00 [facility] Endocrinology Progress Note REPORT#:[id number] REPORT STATUS: Signed DATE:10/14/21 TIME: 1329 PATIENT: HARLEEN MANZANO UNIT #: [id number] ROOM/BED: [place] [address] : 80 AGE: 40 SEX: F ATTEND: Laura Trinh ADM AUTHOR: Gino Hernandez * ALL edits or amendments must be made on the [email or web address] document * Subjective Chief complaint: f/u DM I extubated TF off swallow screen pending Objective General VS: Last Documented: Result Date Time Pulse Ox 100 10/14 1204 FiO2 40 07/ 1204 Pulse 86 07/06 1204 O2 Delivery Ventilator 10/14 0750 B/P 146/69 07/06 0630 B/P Mean 99 10/14 0630 Temp 97.9 10/14 0630 Resp 18 / 0630 O2 Flow Rate 15.0 07/ 1600 PATIENT WEIGHT: Weight (lb): 378 Weight (oz): 1.48 Weight (kg): 171.500 Medications: Active Meds + DC'd Last 24 Hrs Insulin Glargine (Lantus/Semglee) 36 UNIT BID S UBQ Furosemide (LASIX 20MG INJ) 20 MG ONCE ONE IV (D C) Insulin Glargine (Lantus/Semglee) 10 UNIT ONCE O NE SUBQ (DC) Sodium Hypochlorite (DAKIN'S 1/2 STRENGTH 0.25% 480 ML TOP SOLN) 1 APPLIC DAILY TOPICAL Insulin Glargine (Lantus/Semglee) 15 UNIT BID BLANKENSHIP BQ (CAN) Insulin Glargine (Lantus/Semglee) 20 UNIT BID BLANKENSHIP BQ (DC) Fluconazole/Sodium Chloride (FLUCONAZOLE 200MG/N S 100ML) 100 ML DAILY IV Dexmedetomidine/Sodium Chloride (PRECEDEX 1000MC G/NS 250ML) 250 ML ASDIR IV Metoclopramide HCl (REGLAN) 5 MG Q8H IV Labetalol HCl (LABETALOL HCL) 20 MG Q6H PRN PRN IV Insulin Glargine (Lantus/Semglee) 25 UNIT BID BLANKENSHIP BQ (DC) Polyethylene Glycol (MIRALAX) 17 GM BID FEED-TUB E Senna/Docusate Sodium (SENOKOT S) 2 TAB DAILY FE ED-TUBE Insulin Human Lispro (HUMALOG) 0 Q4H SUBQ Cefazolin Sodium (KEFZOL OR ANCEF) 1 GM Q12H IV Sodium Chloride (SODIUM CHLORIDE) 10 ML Heparin Sodium (HEPARIN 5000 UNITS/ML) 5,000 UNI T Q8H SUBQ Propofol (DIPRIVAN 1,000MG/100ML) 100 ML TITRATE IV (CKD) Lactated Ringer's (LACTATED RINGERS) 1,000 ML DIAZ EVANGELINA IV Famotidine (PEPCID) 20 MG Q12HR IV (DC) Fentanyl Citrate (Fentanyl 2,500MCG/NS 250ML) 25 0 ML ASDIR IV (DC) Dextrose/Water (DEXTROSE 50% W SYRINGE) 50 ML DIR PRN IV (CKD) Dextrose/Water (Dextrose 10% W) 1,000 ML ASDIR IV Magnesium Sulfate (MAGNESIUM SULFATE 2GM/SWFI 50 ML) 50 ML ASDIR PRN IV Magnesium Sulfate (MAGNESIUM SULFATE 4GM/SWFI 10 0ML) 100 ML ASDIR PRN IV Potassium Chloride (POTASSIUM CHLORIDE 20MEQ TAB .ER) 20 MEQ ASDIR PRN PO Potassium Chloride (POTASSIUM CHLORIDE 20MEQ TAB .ER) 40 MEQ ASDIR PRN PO Potassium Chloride (POTASSIUM CHLORIDE 20MEQ TAB .ER) 60 MEQ ASDIR PRN PO (CKD) Potassium Chloride (KCL 20MEQ/SWFI 100ML) 100 ML ASDIR PRN IV Potassium Phosphate (POTASSIUM PHOSPHATE) 15 MM ASDIR PRN IV Sodium Chloride (SODIUM CHLORIDE 0.9%) 250 ML Nutrition assessment: The data set between the solid lines has been im ported from the dietitian's assessment. Any exceptions have been noted under Provider comments. BMI Calculated: 55.8 Nutrition related diagnosis: Morbid obesity Nutrition diagnosis details: BMI 40 or more Nutrition problem: Inadequate energy intake Nutrition etiology: Ventilator dependent Nutrition signs and symptoms: +OGT REQUIRING TF TO MEET, NEEDS Nutrition prescription: TURNER L HP @ 65 ML/HR; FWF @ 30 ML Q4H PROVIDES 1560 KCAL , 137 G PRO, 1484 ML FREE H2O TF+PROPOFOL PROVID ES 1956 KCAL/D MEETS 100% OF ESTIMATED NEEDS Dietitian name: Travis Soriano, DIET Assessment completed: 10/12/21 Provider comments on imported dietitian assessme nt: Physical Exam General appearance: alert, awake HEENT: normocephalic Cardiovascular: regular rate rhythm Genitourinary: not indicated Musculoskeletal: normal inspection Neuro/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 OPERATOR: alert Findings/data: Laboratory Tests: 10/14 10/14 10/14 10/14 0948 0515 0311 0021 Blood Gas Puncture Site R Radial O2 Saturation (90 - 100 %) 97.2 ABG pH (7.35 - 7.45) 7.376 ABG pCO2 (35.0 - 45 mmHg) 35.9 ABG pO2 (80 - 100.0 mmHg) 93.8 ABG PO2/FiO2 Ratio (mm/Hg) 234.50 ABG HCO3 (22.0 - 26.0 MMOL/L) 21.1 L ABG Total CO2 22.2 ABG Base Excess (-4.0 - 4.0 MMOL/L) -4.1 L Sintia Test Positive O2 Delivery Device Adult Vent Vent Mode AC Vent Rate (/MIN) 18 FiO2 (%) 40 Tidal Volume (ml) 500 PEEP (cmH2O) 5 Chemistry Sodium (134 - 147 mEq/L) 139 Potassium (3.4 - 5.0 mEq/L) 4.1 Chloride (100 - 108 mEq/L) 103 Carbon Dioxide (21 - 33 mEq/l) 22 Anion Gap (0 - 20) 18 BUN (7 - 18 mg/dL) 68 H Creatinine (0.6 - 1.3 mg/dL) 5.1 H Glomerular Filtr Rate (95 - 105) 11.3 L Glucose (70 - 110 mg/dL) 401 H POC Glucose (70 - 110 MG/DL) 311 H 303 H Calcium (8.0 - 10.5 mg/dL) 8.6 Ionized Calcium Jay (1.12 - 1.32 MMOL/L) 1.18 Phosphorus (2.5 - 4.9 MG/DL) 5.2 H Magnesium (1.80 - 2.40 mg/dL) 2.51 H Total Bilirubin (0.0 - 1.0 mg/dL) 0.20 AST (15 - 37 IUnit/L) 18 ALT (30 - 65 IUnit/L) < 7 L Total Alk Phosphatase (20 - 125 IUnit/L) 153 H Total Protein (6.4 - 8.2 g/dL) 6.6 Albumin (3.4 - 5.0 g/dL) 2.50 L Hematology WBC (4.5 - 11.0 x10 3/uL) 12.1 H RBC (3.54 - 5.02 x10 6/uL) 3.27 L Hgb (11.0 - 15.0 g/dL) 8.5 L Hct (33.0 - 45.0 %) 25.6 L MCV (81.0 - 99.0 fL) 78.3 L MCH (27.0 - 33.0 pg) 26.0 L MCHC (33.0 - 37.0 g/dL) 33.2 RDW (11.5 - 14.5 %) 14.8 H Plt Count (150 - 400 x10 3/uL) 223 MPV (7.0 - 9.0 fL) 11.8 H Neut % (Auto) (56.0 - 77.0 %) 71.5 Lymph % (Auto) (14.0 - 32.0 %) 15.0 [place] % (Auto) (4.8 - 9.0 %) 11.6 H Eos % (Auto) (0.3 - 3.7 %) 0.3 Baso % (Auto) (0.0 - 2.0 %) 0.2 Neut # (Auto) (2.0 - 7.6 x10 3/uL) 8.63 H Lymph # (Auto) (1.0 - 3.8 x10 3/uL) 1.81 [place] # (Auto) (0.1 - 0.8 x10 3/uL) 1.40 H Eos # (Auto) (0.0 - 0.2 x10 3/uL) 0.04 Baso # (Auto) (0.0 - 0.2 x10 3/uL) 0.02 Abs Immat Gran (auto) (0.00 - 0.03 x10 3/uL) 0. 17 H Add Manual Diff NO Immature Gran % (0.0 - 2.0 %) 1.4 Nucleated RBC % (0 - 0 %) 0.0 Nucleated RBCs # (Man) (0.0 - 0.1 x10 3/uL) 0.0 0 10/13 1639 1349 Chemistry POC Glucose (70 - 110 MG/DL) 240 H 226 H 215 H Recent Impressions: RADIOLOGY - XR CHEST 1 V 10/14 0542 Report Impression - Status: SIGNED Entered: 10/14/2021 0755 IMPRESSION: 1. There are prominent bilateral interstitial marleny ng markings. This may be due to pulmonary edema or atypical pneumo nitis. 2. There are opacities in the right lung base. T his may be due to the alveolar component of pulmonary edema, atele ctasis, or pneumonia. Impression By: [email or web address] - Abdi Bradford M.D. Laboratory Tests: 10/14 10/14 10/14 10/14 0948 0515 0311 0021 Blood Gas Puncture Site R Radial O2 Saturation (90 - 100 %) 97.2 ABG pH (7.35 - 7.45) 7.376 ABG pCO2 (35.0 - 45 mmHg) 35.9 ABG pO2 (80 - 100.0 mmHg) 93.8 ABG PO2/FiO2 Ratio (mm/Hg) 234.50 ABG HCO3 (22.0 - 26.0 MMOL/L) 21.1 L ABG Total CO2 22.2 ABG Base Excess (-4.0 - 4.0 MMOL/L) -4.1 L Sintia Test Positive O2 Delivery Device Adult Vent Vent Mode AC Vent Rate (/MIN) 18 FiO2 (%) 40 Tidal Volume (ml) 500 PEEP (cmH2O) 5 Chemistry Sodium (134 - 147 mEq/L) 139 Potassium (3.4 - 5.0 mEq/L) 4.1 Chloride (100 - 108 mEq/L) 103 Carbon Dioxide (21 - 33 mEq/l) 22 Anion Gap (0 - 20) 18 BUN (7 - 18 mg/dL) 68 H Creatinine (0.6 - 1.3 mg/dL) 5.1 H Glomerular Filtr Rate (95 - 105) 11.3 L Glucose (70 - 110 mg/dL) 401 H POC Glucose (70 - 110 MG/DL) 311 H 303 H Calcium (8.0 - 10.5 mg/dL) 8.6 Ionized Calcium Jay (1.12 - 1.32 MMOL/L) 1.18 Phosphorus (2.5 - 4.9 MG/DL) 5.2 H Magnesium (1.80 - 2.40 mg/dL) 2.51 H Total Bilirubin (0.0 - 1.0 mg/dL) 0.20 AST (15 - 37 IUnit/L) 18 ALT (30 - 65 IUnit/L) < 7 L Total Alk Phosphatase (20 - 125 IUnit/L) 153 H Total Protein (6.4 - 8.2 g/dL) 6.6 Albumin (3.4 - 5.0 g/dL) 2.50 L Hematology WBC (4.5 - 11.0 x10 3/uL) 12.1 H RBC (3.54 - 5.02 x10 6/uL) 3.27 L Hgb (11.0 - 15.0 g/dL) 8.5 L Hct (33.0 - 45.0 %) 25.6 L MCV (81.0 - 99.0 fL) 78.3 L MCH (27.0 - 33.0 pg) 26.0 L MCHC (33.0 - 37.0 g/dL) 33.2 RDW (11.5 - 14.5 %) 14.8 H Plt Count (150 - 400 x10 3/uL) 223 MPV (7.0 - 9.0 fL) 11.8 H Neut % (Auto) (56.0 - 77.0 %) 71.5 Lymph % (Auto) (14.0 - 32.0 %) 15.0 [place] % (Auto) (4.8 - 9.0 %) 11.6 H Eos % (Auto) (0.3 - 3.7 %) 0.3 Baso % (Auto) (0.0 - 2.0 %) 0.2 Neut # (Auto) (2.0 - 7.6 x10 3/uL) 8.63 H Lymph # (Auto) (1.0 - 3.8 x10 3/uL) 1.81 [place] # (Auto) (0.1 - 0.8 x10 3/uL) 1.40 H Eos # (Auto) (0.0 - 0.2 x10 3/uL) 0.04 Baso # (Auto) (0.0 - 0.2 x10 3/uL) 0.02 Abs Immat Gran (auto) (0.00 - 0.03 x10 3/uL) 0. 17 H Add Manual Diff NO Immature Gran % (0.0 - 2.0 %) 1.4 Nucleated RBC % (0 - 0 %) 0.0 Nucleated RBCs # (Man) (0.0 - 0.1 x10 3/uL) 0.0 0 10/13 1639 1349 Chemistry POC Glucose (70 - 110 MG/DL) 240 H 226 H 215 H Recent Impressions: RADIOLOGY - XR CHEST 1 V 10/14 0642 Report Impression - Status: SIGNED Entered: 10/14/2021 1923 IMPRESSION: 1. There are prominent bilateral interstitial marleny ng markings. This may be due to pulmonary edema or atypical pneumo nitis. 2. There are opacities in the right lung base. T his may be due to the alveolar component of pulmonary edema, atele ctasis, or pneumonia. Impression By: [email or web address] - Abdi Bradford M.D. Diagnosis, Assessment Plan Free Text A P: 1.DM I in DKA HgbA1c >14 adjust lantus swallow screen pending continue SSI monitor glucose 2.Abnormal thyroid function recheck TSH post decadron 3.Acute respiratory failure intubated 4.Altered mental status non-contrast CTH unremarkable patient not MRI-compatible LP neurology following 5.JAYLEEN with worsening renal function nephrology following 6.COVID-19 7.Bacteremia with alpha Streptococcus species on abx ID following 8.Wounds present to L + R foot debridement on abx Podiatry following at 1407 Electronically Signed by Darvin Mooney MD on 0 10/17/21 at 0417 RPT #:[id number] END OF REPORT 2021-10-14 12:12:00-00:00 [facility] Neurology Progress Note REPORT#:[id number] REPORT STATUS: Signed DATE:10/14/21 TIME: 1212 PATIENT: HARLEEN MANZANO UNIT #: [id number] ROOM/BED: [place] [id number] : 80 AGE: 40 SEX: F ATTEND: Laura Trinh ADM AUTHOR: Rj Menjivar MD * ALL edits or amendments must be made on the [email or web address] document * Subjective Comments: Video EEG without focal triphasic waves or dysfu nction or epileptiform discharges. No acute changes. Remains intubated on precedex. Review of Systems Free Text ROS Notes Free Text ROS Notes: KATHERYN 2/2 pt condition Objective General VS: Last Documented: Result Date Time Pulse Ox 100 10/14 1204 FiO2 40 10/14 1204 Pulse 86 / 1204 O2 Delivery Ventilator 10/14 0750 B/P 146/69 10/14 0630 B/P Mean 99 10/14 0630 Temp 36.6 10/14 0630 Resp 18 10/14 0630 O2 Flow Rate 15.0 10/11 1600 PATIENT WEIGHT: Weight (lb): 378 Weight (oz): 1.48 Weight (kg): 171.500 Medications Current Home Medications Unable to Obtain Home Medication History Active Meds + DC'd Last 24 Hrs Insulin Glargine (Lantus/Semglee) 36 UNIT BID BLANKENSHIP BQ (UNV) Furosemide (LASIX 20MG INJ) 20 MG ONCE ONE IV ( DC) Insulin Glargine (Lantus/Semglee) 10 UNIT ONCE O NE SUBQ (DC) Sodium Hypochlorite (DAKIN'S 1/2 STRENGTH 0.25% 480 ML TOP SOLN) 1 APPLIC DAILY TOPICAL Insulin Glargine (Lantus/Semglee) 15 UNIT BID BLANKENSHIP BQ (CAN) Insulin Glargine (Lantus/Semglee) 20 UNIT BID BLANKENSHIP BQ (DCr) Fluconazole/Sodium Chloride (FLUCONAZOLE 200MG/N S 100ML) 100 ML DAILY IV Dexmedetomidine/Sodium Chloride (PRECEDEX 1000MC G/NS 250ML) 250 ML ASDIR IV Metoclopramide HCl (REGLAN) 5 MG Q8H IV Labetalol HCl (LABETALOL HCL) 20 MG Q6H PRN PRN IV Insulin Glargine (Lantus/Semglee) 25 UNIT BID BLANKENSHIP BQ (DC) Polyethylene Glycol (MIRALAX) 17 GM BID FEED-TUB E Senna/Docusate Sodium (SENOKOT S) 2 TAB DAILY FE ED-TUBE Insulin Human Lispro (HUMALOG) 0 Q4H SUBQ Cefazolin Sodium (KEFZOL OR ANCEF) 1 GM Q12H IV Sodium Chloride (SODIUM CHLORIDE) 10 ML Heparin Sodium (HEPARIN 5000 UNITS/ML) 5,000 UNI T Q8H SUBQ Propofol (DIPRIVAN 1,000MG/100ML) 100 ML TITRATE IV (CKD) Lactated Ringer's (LACTATED RINGERS) 1,000 ML DIAZ EVANGELINA IV Famotidine (PEPCID) 20 MG Q12HR IV Fentanyl Citrate (Fentanyl 2,500MCG/NS 250ML) 25 0 ML ASDIR IV (DC) Dextrose/Water (DEXTROSE 50% W SYRINGE) 50 ML DIR PRN IV (CKD) Dextrose/Water (Dextrose 10% W) 1,000 ML ASDIR I V Magnesium Sulfate (MAGNESIUM SULFATE 2GM/SWFI 50 ML) 50 ML ASDIR PRN IV Magnesium Sulfate (MAGNESIUM SULFATE 4GM/SWFI 10 0ML) 100 ML ASDIR PRN IV Potassium Chloride (POTASSIUM CHLORIDE 20MEQ TAB .ER) 20 MEQ ASDIR PRN PO Potassium Chloride (POTASSIUM CHLORIDE 20MEQ TAB .ER) 40 MEQ ASDIR PRN PO Potassium Chloride (POTASSIUM CHLORIDE 20MEQ TAB .ER) 60 MEQ ASDIR PRN PO (CKD) Potassium Chloride (KCL 20MEQ/SWFI 100ML) 100 ML ASDIR PRN IV Potassium Phosphate (POTASSIUM PHOSPHATE) 15 MM ASDIR PRN IV Sodium Chloride (SODIUM CHLORIDE 0.9%) 250 ML Nutrition assessment: The data set between the solid lines has been im ported from the dietitian's assessment. Any exceptions have been noted under Provider comments. BMI Calculated: 55.8 Nutrition related diagnosis: Morbid obesity Nutrition diagnosis details: BMI 40 or more Nutrition problem: Inadequate energy intake Nutrition etiology: Ventilator dependent Nutrition signs and symptoms: +OGT REQUIRING TF TO MEET, NEEDS Nutrition prescription: TURNER L HP @ 65 ML/HR; FWF @ 30 ML Q4H PROVIDES 1560 KCAL , 137 G PRO, 1484 ML FREE H2O TF+PROPOFOL PROVID ES 1956 KCAL/D MEETS 100% OF ESTIMATED NEEDS Dietitian name: Travis Soriano, DIET Assessment completed: 10/12/21 Provider comments on imported dietitian assessme nt: Results Findings/Data: Laboratory Tests 10/14 031 Blood Gas Puncture Site R Radial O2 Saturation (90 - 100 %) 97.2 ABG pH (7.35 - 7.45) 7.376 ABG pCO2 (35.0 - 45 mmHg) 35.9 ABG pO2 (80 - 100.0 mmHg) 93.8 ABG PO2/FiO2 Ratio (mm/Hg) 234.50 ABG HCO3 (22.0 - 26.0 MMOL/L) 21.1 L ABG Total CO2 22.2 ABG Base Excess (-4.0 - 4.0 MMOL/L) -4.1 L Sintia Test Positive O2 Delivery Device Adult Vent Vent Mode AC Vent Rate (/MIN) 18 FiO2 (%) 40 Tidal Volume (ml) 500 PEEP (cmH2O) 5 Laboratory Tests 10/14 10/14 10/14 10/13 10/13 0948 0515 0021 2000 1639 Chemistry Sodium (134 - 147 mEq/L) 139 Potassium (3.4 - 5.0 mEq/L) 4.1 Chloride (100 - 108 mEq/L) 103 Carbon Dioxide (21 - 33 mEq/l) 22 Anion Gap (0 - 20) 18 BUN (7 - 18 mg/dL) 68 H Creatinine (0.6 - 1.3 mg/dL) 5.1 H Glomerular Filtr Rate (95 - 105) 11.3 L Glucose (70 - 110 mg/dL) 401 H POC Glucose (70 - 110 MG/DL) 311 H 303 H 240 H 226 H Calcium (8.0 - 10.5 mg/dL) 8.6 Ionized Calcium Jay (1.12 - 1.32 MMOL/L) 1.18 Phosphorus (2.5 - 4.9 MG/DL) 5.2 H Magnesium (1.80 - 2.40 mg/dL) 2.51 H Total Bilirubin (0.0 - 1.0 mg/dL) 0.20 AST (15 - 37 IUnit/L) 18 ALT (30 - 65 IUnit/L) < 7 L Total Alk Phosphatase (20 - 125 IUnit/L) 153 H Total Protein (6.4 - 8.2 g/dL) 6.6 Albumin (3.4 - 5.0 g/dL) 2.50 L 10/13 1349 Chemistry POC Glucose (70 - 110 MG/DL) 215 H Laboratory Tests 10/14 0515 Hematology WBC (4.5 - 11.0 x10 3/uL) 12.1 H RBC (3.54 - 5.02 x10 6/uL) 3.27 L Hgb (11.0 - 15.0 g/dL) 8.5 L Hct (33.0 - 45.0 %) 25.6 L MCV (81.0 - 99.0 fL) 78.3 L MCH (27.0 - 33.0 pg) 26.0 L MCHC (33.0 - 37.0 g/dL) 33.2 RDW (11.5 - 14.5 %) 14.8 H Plt Count (150 - 400 x10 3/uL) 223 MPV (7.0 - 9.0 fL) 11.8 H Neut % (Auto) (56.0 - 77.0 %) 71.5 Lymph % (Auto) (14.0 - 32.0 %) 15.0 [place] % (Auto) (4.8 - 9.0 %) 11.6 H Eos % (Auto) (0.3 - 3.7 %) 0.3 Baso % (Auto) (0.0 - 2.0 %) 0.2 Neut # (Auto) (2.0 - 7.6 x10 3/uL) 8.63 H Lymph # (Auto) (1.0 - 3.8 x10 3/uL) 1.81 [place] # (Auto) (0.1 - 0.8 x10 3/uL) 1.40 H Eos # (Auto) (0.0 - 0.2 x10 3/uL) 0.04 Baso # (Auto) (0.0 - 0.2 x10 3/uL) 0.02 Abs Immat Gran (auto) (0.00 - 0.03 x10 3/uL) 0. 17 H Add Manual Diff NO Immature Gran % (0.0 - 2.0 %) 1.4 Nucleated RBC % (0 - 0 %) 0.0 Nucleated RBCs # (Man) (0.0 - 0.1 x10 3/uL) 0.0 0 Radiology Data: Recent Impressions: RADIOLOGY - XR FOOT 2 VIEWS BI 10/13 1214 Report Impression - Status: SIGNED Entered: 10/13/2021 1329 IMPRESSION: XR Right Foot 1. Soft tissue swelling. 2. No radiographic evidence for osteomyelitis. XR Left Foot 1. Soft tissue swelling. 2. No radiographic evidence for osteomyelitis. Impression By: Bryanna Mares M.D. RADIOLOGY - XR CHEST 1 V 10/14 0642 Report Impression - Status: SIGNED Entered: 10/14/2021 0755 IMPRESSION: 1. There are prominent bilateral interstitial marleny ng markings. This may be due to pulmonary edema or atypical pneumo nitis. 2. There are opacities in the right lung base. T his may be due to the alveolar component of pulmonary edema, atele ctasis, or pneumonia. Impression By: Anuradha Bradford M.D. Results: labs reviewed, vital signs reviewed Free Text Obj Notes Free Text Obj Notes: Intubated and sedated on precedex, breathing at ventilator set rate, no motor response to noxious stimuli Pupils 2.5mm reactive b/l, i ntermittent arrhythmic left orbicularis contraction, no BTT either side Facial symmetry difficult to determine 2/2 ETT Reflexes 0+ throughout Extremities flaccid x4 (+)cough (+)gag (+)corneals (-)dolls Diagnosis, Assessment Plan Free Text A P: 40-year-old woman with diabe elisabet currently admitted to ICU since 10/08/21 with DKA , sepsis in setting of UTI and bilateral foot wo unds on antibiotics, course notable for persistent encephalopathy, worsening JAYLEEN and difficulty weaning ventilator support. No focal or clearly epilepti form findings. EEG with suggestion of structural vs epileptiform dysfunc tion left central region. Impression: toxic-metabolic/infectious e ncephalopathy, ICU delirium, ?critical illness neuropathy/myopathy, consider neuroinfec tious etiologies. Recommend: - non-contrast CTH unremarkable - patient not MRI-compatible - discuss with ID whether would broaden antimicr obial coverage for bacterial/ viral meningoencephalitides - would ideally need CSF if able to obtain - cEEG reviewed, no epileptiform abnormalities o r non-convulsive seizures - no AEDs for now - management of acute infectious and metabolic i ssues per primary, ICC, consultants - at this time with no speci fic neurologic interventions pending neurology will follow peripherally, please do not hesitate to c all with any questions or if patient with new focal signs or symptoms - d/w RN Electronically Signed by Rj Menjivar MD on 09/30 at 1217 RPT #:[id number] END OF REPORT 2021-10-14 11:23:00-00:00 [facility] Hospitalist Progress Note REPORT#:[id number] REPORT STATUS: Signed DATE:10/14/21 TIME: 1123 PATIENT: HARLEEN MANZANO UNIT #: [id number] ROOM/BED: [address] : 80 AGE: 40 SEX: F ATTEND: Laura Trinh ADM AUTHOR: Laura Trinh MD * ALL edits or amendments must be made on the el [employer]/computer document * Subjective Chief complaint: On spontaneous breathing trial today, following commands. Renal function worsening, IV Lasix x1, on 24-hour EEG, on subcu insulin Objective General VS/I O: Vital Signs: Date Time Temp Pulse Resp B/P B/P Pulse O2 O2 F low FiO2 Mean Ox Delivery Rate 07/ 1204 86 100 40 07/06 0750 100 Ventilator 40 07/06 0750 71 100 40 07/06 0630 97.9 69 18 146/69 99 100 07/06 0600 97.5 69 18 144/68 98 100 07/06 0530 98.1 71 17 142/67 97 100 07/06 0500 98.4 75 22 142/67 97 100 07/06 0400 98.3 07/06 0400 98.6 81 31 170/83 119 100 07/06 0330 98.4 72 18 161/78 112 100 07/06 0315 98.4 69 21 163/78 112 100 07/06 0308 69 100 40 07/06 0300 98.2 74 19 170/78 116 100 07/06 0245 98.1 78 21 176/85 122 100 07/06 0230 97.9 82 29 176/89 125 100 07/06 0215 97.5 91 22 183/90 129 100 07/06 0200 97.3 74 18 155/78 110 100 07/06 0145 97.2 84 22 176/97 126 100 07/06 0130 97.0 66 22 153/84 112 100 07/06 0115 97.0 68 24 151/76 110 100 07/06 0100 96.8 72 18 156/89 117 100 07/06 0045 96.8 75 17 155/88 115 100 07/06 0030 96.8 62 18 150/82 110 100 07/06 0015 97.0 62 18 150/83 110 100 07/06 0000 97.2 07/06 0000 97.0 63 18 151/84 111 100 07/05 2345 97.0 65 20 154/85 113 100 07/05 2330 96.8 68 23 157/81 113 100 07/05 2315 96.8 82 38 163/84 116 100 07/05 2302 83 100 40 07/05 2300 96.8 89 45 183/99 131 100 07/05 2245 96.8 69 22 147/84 109 100 07/05 2230 96.8 72 30 141/81 104 100 07/05 2215 96.8 69 23 143/84 108 100 07/05 2200 96.6 64 20 148/80 110 100 07/05 2145 96.8 64 19 150/87 113 100 07/05 2130 96.8 64 18 148/86 111 100 07/05 211 96.8 64 18 148/85 111 100 07/05 2100 97.0 64 18 148/85 111 100 07/05 2044 97.0 64 18 148/85 110 100 07/05 2029 97.0 65 19 150/85 112 100 07/05 2014 97.0 66 20 152/85 112 100 07/05 1999 97.0 40 07/05 1999 Ventilator 40 07/05 1999 97.0 68 18 154/81 111 100 07/05 1953 69 100 40 07/05 1945 97.0 77 40 161/95 120 100 07/05 1930 97.0 66 18 146/88 112 100 07/05 1915 97.0 66 18 145/87 111 100 07/05 1902 97.0 68 17 100 07/05 1900 97.0 69 19 145/86 110 100 07/05 1845 97.0 66 18 149/88 113 100 07/05 1830 97.0 66 18 149/84 110 100 07/05 1815 97.0 66 18 149/81 109 100 07/05 1800 97.0 76 18 154/93 116 100 07/05 1745 97.0 65 18 145/84 109 100 07/05 1730 97.2 66 18 142/83 107 100 07/05 1715 97.2 67 18 143/87 108 100 07/05 1700 97.2 67 18 143/82 108 100 07/05 1645 97.3 69 19 141/85 108 100 07/05 1630 97.3 72 23 139/86 106 100 07/05 1615 97.3 68 18 135/81 103 100 07/05 1612 97.3 69 18 100 07/05 1600 97.3 07/05 1600 97.3 69 18 135/78 101 100 07/05 1545 97.3 80 18 145/90 111 100 07/05 1530 97.3 69 18 135/79 102 100 07/05 1519 68 100 07/05 1515 97.5 68 18 133/78 100 100 24 hour I O ending at 0700: 07/06 0700 07/05 1900 Intake Total 961.39 1012.79 Output Total 1475 2600 Balance -513.61 -1587.21 Intake, Free 60 60 Water Intake, IV 205.39 395.79 Intake, Tube 696 557 Feeding Number 1 1 Bowel Movements Output, Urine 1475 2600 Patient 171.5 kg Weight Weight Bed scale Measurement Method PATIENT WEIGHT: Weight (lb): 378 Weight (oz): 1.48 Weight (kg): 171.500 Medications: Active Meds + DC'd Last 24 Hrs Insulin Glargine (Lantus/Semglee) 36 UNIT BID BLANKENSHIP BQ (DC) Insulin Glargine (Lantus/Semglee) 30 UNIT BID BLANKENSHIP BQ Furosemide (LASIX 20MG INJ) 20 MG ONCE ONE IV (D C) Insulin Glargine (Lantus/Semglee) 10 UNIT ONCE O NE SUBQ (DC) Sodium Hypochlorite (DAKIN'S 1/2 STRENGTH 0.25% 480 ML TOP SOLN) 1 APPLIC DAILY TOPICAL Insulin Glargine (Lantus/Semglee) 15 UNIT BID BLANKENSHIP BQ (CAN) Insulin Glargine (Lantus/Semglee) 20 UNIT BID BLANKENSHIP BQ (DC) Fluconazole/Sodium Chloride (FLUCONAZOLE 200MG/N S 100ML) 100 ML DAILY IV Dexmedetomidine/Sodium Chloride (PRECEDEX 1000MC G/NS 250ML) 250 ML ASDIR IV Metoclopramide HCl (REGLAN) 5 MG Q8H IV Labetalol HCl (LABETALOL HCL) 20 MG Q6H PRN PRN IV Polyethylene Glycol (MIRALAX) 17 GM BID FEED-TUB E Senna/Docusate Sodium (SENOKOT S) 2 TAB DAILY FE ED-TUBE Insulin Human Lispro (HUMALOG) 0 Q4H SUBQ Cefazolin Sodium (KEFZOL OR ANCEF) 1 GM Q12H IV Sodium Chloride (SODIUM CHLORIDE) 10 ML Heparin Sodium (HEPARIN 5000 UNITS/ML) 5,000 UNI T Q8H SUBQ Propofol (DIPRIVAN 1,000MG/100ML) 100 ML TITRATE IV (CKD) Lactated Ringer's (LACTATED RINGERS) 1,000 ML DIAZ EVANGELINA IV Famotidine (PEPCID) 20 MG Q12HR IV (DC) Fentanyl Citrate (Fentanyl 2,500MCG/NS 250ML) 25 0 ML ASDIR IV (DC) Dextrose/Water (DEXTROSE 50% W SYRINGE) 50 ML DIR PRN IV (CKD) Dextrose/Water (Dextrose 10% W) 1,000 ML ASDIR I V Magnesium Sulfate (MAGNESIUM SULFATE 2GM/SWFI 50 ML) 50 ML ASDIR PRN IV Magnesium Sulfate (MAGNESIUM SULFATE 4GM/SWFI 10 0ML) 100 ML ASDIR PRN IV Potassium Chloride (POTASSIUM CHLORIDE 20MEQ TAB .ER) 20 MEQ ASDIR PRN PO Potassium Chloride (POTASSIUM CHLORIDE 20MEQ TAB .ER) 40 MEQ ASDIR PRN PO Potassium Chloride (POTASSIUM CHLORIDE 20MEQ TAB .ER) 60 MEQ ASDIR PRN PO (CKD) Potassium Chloride (KCL 20MEQ/SWFI 100ML) 100 ML ASDIR PRN IV Potassium Phosphate (POTASSIUM PHOSPHATE) 15 MM ASDIR PRN IV Sodium Chloride (SODIUM CHLORIDE 0.9%) 250 ML Physical Exam General appearance: altered mental status Head/Eyes: normocephalic ENT: intubated Neck: no JVD Cardiovascular: normal heart sounds, regular rat e rhythm Respiratory: aerating well, clear to auscultatio n, symmetric expansion Abdomen: non-tender, normal bowel sounds, soft, no distention Extremities: b/l feet wound 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 Skin: dry Psychiatry: unable to evaluate Results Findings/Data: Laboratory Tests 10/14 310 Blood Gas Puncture Site R Radial O2 Saturation (90 - 100 %) 97.2 ABG pH (7.35 - 7.45) 7.376 ABG pCO2 (35.0 - 45 mmHg) 35.9 ABG pO2 (80 - 100.0 mmHg) 93.8 ABG PO2/FiO2 Ratio (mm/Hg) 234.50 ABG HCO3 (22.0 - 26.0 MMOL/L) 21.1 L ABG Total CO2 22.2 ABG Base Excess (-4.0 - 4.0 MMOL/L) -4.1 L Sintia Test Positive O2 Delivery Device Adult Vent Vent Mode AC Vent Rate (/MIN) 18 FiO2 (%) 40 Tidal Volume (ml) 500 PEEP (cmH2O) 5 Laboratory Tests 10/14 10/14 10/14 10/13 10/13 0948 0515 0021 2000 1639 Chemistry Sodium (134 - 147 mEq/L) 139 Potassium (3.4 - 5.0 mEq/L) 4.1 Chloride (100 - 108 mEq/L) 103 Carbon Dioxide (21 - 33 mEq/l) 22 Anion Gap (0 - 20) 18 BUN (7 - 18 mg/dL) 68 H Creatinine (0.6 - 1.3 mg/dL) 5.1 H Glomerular Filtr Rate (95 - 105) 11.3 L Glucose (70 - 110 mg/dL) 401 H POC Glucose (70 - 110 MG/DL) 311 H 303 H 240 H 226 H Calcium (8.0 - 10.5 mg/dL) 8.6 Ionized Calcium Jay (1.12 - 1.32 1.18 MMOL/L) Phosphorus (2.5 - 4.9 MG/DL) 5.2 H Magnesium (1.80 - 2.40 mg/dL) 2.51 H Total Bilirubin (0.0 - 1.0 mg/dL) 0.20 AST (15 - 37 IUnit/L) 18 ALT (30 - 65 IUnit/L) < 7 L Total Alk Phosphatase (20 - 125 153 H IUnit/L) Total Protein (6.4 - 8.2 g/dL) 6.6 Albumin (3.4 - 5.0 g/dL) 2.50 L Laboratory Tests 10/14 0515 Hematology WBC (4.5 - 11.0 x10 3/uL) 12.1 H RBC (3.54 - 5.02 x10 6/uL) 3.27 L Hgb (11.0 - 15.0 g/dL) 8.5 L Hct (33.0 - 45.0 %) 25.6 L MCV (81.0 - 99.0 fL) 78.3 L MCH (27.0 - 33.0 pg) 26.0 L MCHC (33.0 - 37.0 g/dL) 33.2 RDW (11.5 - 14.5 %) 14.8 H Plt Count (150 - 400 x10 3/uL) 223 MPV (7.0 - 9.0 fL) 11.8 H Neut % (Auto) (56.0 - 77.0 %) 71.5 Lymph % (Auto) (14.0 - 32.0 %) 15.0 [place] % (Auto) (4.8 - 9.0 %) 11.6 H Eos % (Auto) (0.3 - 3.7 %) 0.3 Baso % (Auto) (0.0 - 2.0 %) 0.2 Neut # (Auto) (2.0 - 7.6 x10 3/uL) 8.63 H Lymph # (Auto) (1.0 - 3.8 x10 3/uL) 1.81 [place] # (Auto) (0.1 - 0.8 x10 3/uL) 1.40 H Eos # (Auto) (0.0 - 0.2 x10 3/uL) 0.04 Baso # (Auto) (0.0 - 0.2 x10 3/uL) 0.02 Abs Immat Gran (auto) (0.00 - 0.03 x10 3/uL) 0. 17 H Add Manual Diff NO Immature Gran % (0.0 - 2.0 %) 1.4 Nucleated RBC % (0 - 0 %) 0.0 Nucleated RBCs # (Man) (0.0 - 0.1 x10 3/uL) 0.0 0 Radiology data: Recent Impressions: RADIOLOGY - XR CHEST 1 V 10/14 0642 Report Impression - Status: SIGNED Entered: 10/14/2021 0755 IMPRESSION: 1. There are prominent bilateral interstitial marleny ng markings. This may be due to pulmonary edema or atypical pneumo nitis. 2. There are opacities in the right lung base. T his may be due to the alveolar component of pulmonary edema, atele ctasis, or pneumonia. Impression By: [email or web address] - Abdi Bradford M.D. Diagnosis, Assessment Plan Free Text DxA P Notes Free text DxA P notes: Assessment and plans: Acute respiratory failure: Intubated for airway protection, sedated Failed CPAP trial 10/10 ICC on board Spontaneous breathing trial, plan for extubatio n today 10/14 Sepsis: Leukocytosis, tachycardia, JAYLEEN, UA positive for UTI, bilateral foot wounds, low blood pressure Blood culture strep species on 10/08, repeat blo od culture from 10/10 negative, urine culture growing yeast, wound cultu re growing diphtheroids, coag negative staph, E. coli, Enterococcus species Received vancomycin x1 Ancef as per ID ID on board Echo when recommended by ID Wound care nurse consult for bilateral foot wou nd CT abdomen and pelvis unremarkable May need debridement of the left foot wound as per podiatry Unable to MRI, bilateral foot x-ray unremarkabl e for OM On fluconazole for yeast in urine JAYLEEN: Likely secondary to above causes. Patient also received Lasix today 10/10 Avoid nephrotoxic drugs Renal ultrasound Was on dopamine for short duration 10/11 IV fluid hydration - LR DC'd Renal managing Lasix as needed May require hemodialysis Acute encephalopathy: -due to above causes -treat underlying causes CT head ordered unremarkable 10/11 EEG showing moderate encephalopathy 10/12 Ammonia IR consulted for LP On 24-hour EEG Anemia: No active bleeding noted Monitor H H every 6 hours for 24 hours / blood transfusion if hemoglobin drops below 7 H H stable Bacteremia Management same as above b/l Foot infected wound Management same as above UTI Management same as above DKA: A1c more than 14 Insulin drip switched to subcu insulin Endocrine managing Constipation: Bowel regimen COVID 19 infection: Patient did not have respiratory distress on ad mission, intubated for airway protection COVID PCR positive Hyponatremia from osmotic hyperglycemia: Corrected sodium is elevated in hyperna tremic range due to severe dehydration Monitor lab -heparin for DVT prophylaxis T feeding Famotidine for GI prophylaxis [place] in place Morning labs Disposition: On IV antibioti c. Intubated, on spontaneous breathing trial today, plan for extubation today. Follow-up with aniya hernandez. May need LP as per neurology. Renal function worsening. PT/OT consu lt. Continue ICU care. Quality: Gen Med Crit Care VTE Prophylaxis VTE prophylaxis initiated: yes Current Medications Current medication review: I attest that the foregoing medication list in t medical record is true, accurate, and complete to the best of my knowled ge. Electronically Signed by Laura Trinh MD on 2 at 1515 RPT #:[id number] END OF REPORT 2021-10-14 09:28:00-00:00 [facility] ([facility]) Electroencephalogram-EEG REPORT#:[id number] REPORT STATUS: Signed DATE:10/14/21 TIME: 927 PATIENT: HARLEEN MANZANO UNIT #: [id number] ROOM/BED: [facility]-1 : 80 AGE: 40 SEX: F ATTEND: Shoaib Shepherd MD ADM AUTHOR: Maegan Munoz MD * ALL edits or amendments must be made on the el ectronic/RecycleMatch document * Procedure Procedure Date of procedure: 10/14/21 Procedure performed: continuous VEEG Indication: seizure, status epilepticus Impression/Conclusion: Date of procedure: 10/13-09/2021 Procedure performed: continuous VEEG Indication: seizure, status epilepticus Impression/Conclusion: Begin Time: 10/13/2021 226 pm End Time: 10/14/2021 626 am TECHNICAL SUMMARY: This is an adult director long term care vi bobby electroencephalogram performed using the standard [employer] 10/20 electrode placement system. One channel was used for EOG and other channel was u sed for ECG. This study was retrospectively reviewed. FINDINGS: The background act ivity shows a posterior dominant rhythm 6-7 Hz which is intermittently sustained. There is diffuse sl owing of the background. Occasional triphasic waves are seen with no kathie r laterality. There are no definite areas of focal abnormaliti es or epileptiform activity noted. The EKG rhythm strip demonstrates a regu lar rhythm and a rate of approximately 60-90 beats per minute. IMPRESSION: This patient's director long term care vid eo electroencephalogram is abnormal in the presence of diffuse slowing of the b ackground. There are no definite areas of epileptiform activity noted. Electronically Signed by Maegan Munoz MD 11/23/21 at 1936 RPT #:[id number] END OF REPORT 2021-10-13 16:05:00-00:00 [facility] REPORT#:[id number] REPORT STATUS: Signed DATE:10/13/21 TIME: 1605 PATIENT: HARLEEN MANZANO UNIT #: [id number] ROOM[address]BED[address] : [address] AGE: 40 SEX: F ATTEND: Laura Trinh ADM AUTHOR: Fermin Perea DPEsau * ALL edits or amendments must be made on the [email or web address]/RecycleMatch document * Subjective Chief complaint: left and right foot ulcers Objective Physical Exam General appearance: alert, no acute distress Wound/incision: Location: left and right foot Musculoskeletal: Musculoskeletal: decreased ROM Skin: erythema Ulcer: Location: foot Diagnosis, Assessment Plan Free Text A P: A/P Wounds present to L + R foot Wound present to L foot may benefit from debride ment Will get radiographs to establish baseline for B /L lower extremities Will await improvement before any consideration of operative plans ID on board Will follow dr perea Electronically Signed by Fermin Perea DPM on at 1608 RPT #:[id number] END OF REPORT 2021-10-13 15:17:00-00:00 [facility] ([facility] Endocrinology Progress Note REPORT#:[id number] REPORT STATUS: Signed DATE:10/13/21 TIME: 151 PATIENT: HARLEEN MANZANO UNIT #: [id number] ROOM/BED: [place] [address] : 80 AGE: 40 SEX: F ATTEND: Laura Trinh ADM AUTHOR: Gino Hernandez * ALL edits or amendments must be made on the [email or web address]/[email or web address] document * Subjective Chief complaint: f/u DM I Lantus had to be held last night now back on vital protein TF Objective General VS: Last Documented: Result Date Time Pulse Ox 97 10/13 1204 Temp 98.4 07/ 1204 Pulse 88 07/ 1204 Resp 39 07/ 1204 B/P 159/121 07/05 1200 B/P Mean 136 07/05 1200 FiO2 97 / 0822 O2 Delivery Ventilator 10/13 0822 O2 Flow Rate 15.0 07/03 1600 PATIENT WEIGHT: Weight (lb): 414 Weight (oz): 14.56 Weight (kg): 188.200 Medications: Active Meds + DC'd Last 24 Hrs Insulin Glargine (Lantus/Semglee) 15 UNIT BID BLANKENSHIP BQ Fluconazole/Sodium Chloride (FLUCONAZOLE 200MG/N S 100ML) 100 ML DAILY IV Dexmedetomidine/Sodium Chloride (PRECEDEX 1000MC G/NS 250ML) 250 ML ASDIR IV Fluconazole/Sodium Chloride (FLUCONAZOLE 200MG/N S 100ML) 100 ML ONCE ONE IV (DC) Metoclopramide HCl (REGLAN) 5 MG Q8H IV Labetalol HCl (LABETALOL HCL) 20 MG Q6H PRN PRN IV Insulin Glargine (Lantus/Semglee) 25 UNIT BID BLANKENSHIP BQ (DC) Polyethylene Glycol (MIRALAX) 17 GM BID FEED-TUB E Senna/Docusate Sodium (SENOKOT S) 2 TAB DAILY FE ED-TUBE Insulin Human Lispro (HUMALOG) 0 Q4H SUBQ Cefazolin Sodium (KEFZOL OR ANCEF) 1 GM Q12H IV Sodium Chloride (SODIUM CHLORIDE) 10 ML Heparin Sodium (HEPARIN 5000 UNITS/ML) 5,000 UNI T Q8H SUBQ Propofol (DIPRIVAN 1,000MG/100ML) 100 ML TITRATE IV (CKD) Lactated Ringer's (LACTATED RINGERS) 1,000 ML DIAZ EVANGELINA IV Famotidine (PEPCID) 20 MG Q12HR IV Fentanyl Citrate (Fentanyl 2,500MCG/NS 250ML) 25 0 ML ASDIR IV (CKD) Mupirocin (BACTROBAN 2% 22 GM OINTMENT) 1 APPLIC BID NASAL (DC) Dextrose/Water (DEXTROSE 50% W SYRINGE) 50 ML DIR PRN IV (CKD) Dextrose/Water (Dextrose 10% W) 1,000 ML ASDIR I V Magnesium Sulfate (MAGNESIUM SULFATE 2GM/SWFI 50 ML) 50 ML ASDIR PRN IV Magnesium Sulfate (MAGNESIUM SULFATE 4GM/SWFI 10 0ML) 100 ML ASDIR PRN IV Potassium Chloride (POTASSIUM CHLORIDE 20MEQ TAB .ER) 20 MEQ ASDIR PRN PO Potassium Chloride (POTASSIUM CHLORIDE 20MEQ TAB .ER) 40 MEQ ASDIR PRN PO Potassium Chloride (POTASSIUM CHLORIDE 20MEQ TAB .ER) 60 MEQ ASDIR PRN PO (CKD) Potassium Chloride (KCL 20MEQ/SWFI 100ML) 100 ML ASDIR PRN IV Potassium Phosphate (POTASSIUM PHOSPHATE) 15 MM ASDIR PRN IV Sodium Chloride (SODIUM CHLORIDE 0.9%) 250 ML Nutrition assessment: The data set between the solid lines has been im ported from the dietitian's assessment. Any exceptions have been noted under Provider comments. BMI Calculated: 61.3 Nutrition related diagnosis: Morbid obesity Nutrition diagnosis details: BMI 40 or more Nutrition problem: Inadequate energy intake Nutrition etiology: Ventilator dependent Nutrition signs and symptoms: +OGT REQUIRING TF TO MEET, NEEDS Nutrition prescription: TURNER L HP @ 65 ML/HR; FWF @ 30 ML Q4H PROVIDES 1560 KCAL , 137 G PRO, 1484 ML FREE H2O TF+PROPOFOL PROVID ES 1956 KCAL/D MEETS 100% OF ESTIMATED NEEDS Dietitian name: Travis Soriano, DIET Assessment completed: 10/12/21 Provider comments on imported dietitian assessme nt: Physical Exam General appearance: altered mental status HEENT: normocephalic Neck: supple Cardiovascular: regular rate rhythm Respiratory: intubated Genitourinary: not indicated Musculoskeletal: normal inspection 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 Findings/data: Laboratory Tests: 10/13 10/13 10/13 10/13 1349 0819 0510 0510 Chemistry POC Glucose (70 - 110 MG/DL) 215 H 188 H Ammonia (11 - 35 umol/L) < 10 L C-Reactive Protein (<10.0 mg/L) 116.0 H 10/13 10/13 10/13 0510 0319 0153 Blood Gas Puncture Site R Radial O2 Saturation (90 - 100 %) 99.4 ABG pH (7.35 - 7.45) 7.404 ABG pCO2 (35.0 - 45 mmHg) 34.8 L ABG pO2 (80 - 100.0 mmHg) 157.5 H ABG PO2/FiO2 Ratio (mm/Hg) 393.75 ABG HCO3 (22.0 - 26.0 MMOL/L) 21.8 L ABG Total CO2 22.9 ABG Base Excess (-4.0 - 4.0 MMOL/L) -2.9 Sintia Test Positive O2 Delivery Device Adult Vent Vent Mode AC Vent Rate (/MIN) 18 FiO2 (%) 40 Tidal Volume (ml) 500 PEEP (cmH2O) 5 Chemistry Sodium (134 - 147 mEq/L) 137 Potassium (3.4 - 5.0 mEq/L) 3.7 Chloride (100 - 108 mEq/L) 108 Carbon Dioxide (21 - 33 mEq/l) 23 Anion Gap (0 - 20) 10 BUN (7 - 18 mg/dL) 65 H Creatinine (0.6 - 1.3 mg/dL) 5.0 H Glomerular Filtr Rate (95 - 105) 11.6 L Glucose (70 - 110 mg/dL) 162 H Calcium (8.0 - 10.5 mg/dL) 8.2 Ionized Calcium Jay (1.12 - 1.32 MMOL/L) 1.16 Phosphorus (2.5 - 4.9 MG/DL) 4.0 Magnesium (1.80 - 2.40 mg/dL) 2.46 H Total Bilirubin (0.0 - 1.0 mg/dL) 0.30 AST (15 - 37 IUnit/L) 24 ALT (30 - 65 IUnit/L) 7 L Total Alk Phosphatase (20 - 125 IUnit/L) 152 H Total Protein (6.4 - 8.2 g/dL) 5.6 L Albumin (3.4 - 5.0 g/dL) 2.30 L Vitamin B12 (193 - 986 pg/mL) 1579 H Cortisol AM Sample (ug/dL) 19.35 Hematology WBC (4.5 - 11.0 x10 3/uL) 11.8 H RBC (3.54 - 5.02 x10 6/uL) 2.97 L Hgb (11.0 - 15.0 g/dL) 7.8 L Hct (33.0 - 45.0 %) 23.3 L MCV (81.0 - 99.0 fL) 78.5 L MCH (27.0 - 33.0 pg) 26.3 L MCHC (33.0 - 37.0 g/dL) 33.5 RDW (11.5 - 14.5 %) 14.9 H Plt Count (150 - 400 x10 3/uL) 205 MPV (7.0 - 9.0 fL) 11.9 H Neut % (Auto) (56.0 - 77.0 %) 62.4 Lymph % (Auto) (14.0 - 32.0 %) 23.4 [place] % (Auto) (4.8 - 9.0 %) 12.9 H Eos % (Auto) (0.3 - 3.7 %) 0.3 Baso % (Auto) (0.0 - 2.0 %) 0.2 Neut # (Auto) (2.0 - 7.6 x10 3/uL) 7.39 Lymph # (Auto) (1.0 - 3.8 x10 3/uL) 2.77 [place] # (Auto) (0.1 - 0.8 x10 3/uL) 1.53 H Eos # (Auto) (0.0 - 0.2 x10 3/uL) 0.03 Baso # (Auto) (0.0 - 0.2 x10 3/uL) 0.02 Abs Immat Gran (auto) (0.00 - 0.03 x10 3/uL) 0 .09 H Add Manual Diff NO Immature Gran % (0.0 - 2.0 %) 0.8 Nucleated RBC % (0 - 0 %) 0.0 Nucleated RBCs # (Man) (0.0 - 0.1 x10 3/uL) 0.0 0 Urines Urine HCG, Qual (NEGATIVE) NEGATIVE 10/13 10/12 10/12 10/12 0153 2345 2108 1651 Chemistry POC Glucose (70 - 110 MG/DL) 113 H 112 H 92 Urines Urine Color (YEL/STRAW) YELLOW Urine Appearance (CLEAR) SL CLOUDY Urine pH (5.0 - 7.0) 5.0 Ur Specific [place] (1.005 - 1.030) 1.005 Urine Protein (NEGATIVE) NEGATIVE Urine Glucose (UA) (NEGATIVE) NEGATIVE Urine Ketones (NEGATIVE) NEGATIVE Urine Blood (NEGATIVE) 1+ H Urine Nitrite (NEGATIVE) NEGATIVE Urine Bilirubin (NEGATIVE) NEGATIVE Urine Urobilinogen (0.2 - 1.0 mg/dL) 0.2 Ur Leukocyte Esterase (NEGATIVE) NEGATIVE Urine RBC (0 - 3 RBC/HPF) 4-10 Urine WBC (0 - 3 WBC/HPF) 10-20 H Ur Squamous Epith Cells (NONE SEEN /HPF) 0-5 Ur Transition Epith Cell (NONE SEEN /HPF) TRACE Urine Bacteria (NONE SEEN /HPF) TRACE Urine Mucus (NONE SEEN /LPF) TRACE Microbiology: Date/Time Procedure - Status Source Growth 10/13 152 Urine Culture - RECD URINE Recent Impressions: RADIOLOGY - XR CHEST 1 V 10/14 615 Report Impression - Status: SIGNED Entered: 10/13/2021 0659 IMPRESSION: Stable chest. Impression By: [email or web address] Esau Stein RADIOLOGY - XR FOOT 2 VIEWS BI 10/13 1214 Report Impression - Status: SIGNED Entered: 10/13/2021 1329 IMPRESSION: XR Right Foot 1. Soft tissue swelling. 2. No radiographic evidence for osteomyelitis. XR Left Foot 1. Soft tissue swelling. 2. No radiographic evidence for osteomyelitis. Impression By: Bryanna Mares M.D. Laboratory Tests: 10/13 10/13 10/13 10/13 1349 0819 0510 0510 Chemistry POC Glucose (70 - 110 MG/DL) 215 H 188 H Ammonia (11 - 35 umol/L) < 10 L C-Reactive Protein (<10.0 mg/L) 116.0 H 10/13 10/13 10/13 0510 0319 0153 Blood Gas Puncture Site R Radial O2 Saturation (90 - 100 %) 99.4 ABG pH (7.35 - 7.45) 7.404 ABG pCO2 (35.0 - 45 mmHg) 34.8 L ABG pO2 (80 - 100.0 mmHg) 157.5 H ABG PO2/FiO2 Ratio (mm/Hg) 393.75 ABG HCO3 (22.0 - 26.0 MMOL/L) 21.8 L ABG Total CO2 22.9 ABG Base Excess (-4.0 - 4.0 MMOL/L) -2.9 Sintia Test Positive O2 Delivery Device Adult Vent Vent Mode AC Vent Rate (/MIN) 18 FiO2 (%) 40 Tidal Volume (ml) 500 PEEP (cmH2O) 5 Chemistry Sodium (134 - 147 mEq/L) 137 Potassium (3.4 - 5.0 mEq/L) 3.7 Chloride (100 - 108 mEq/L) 108 Carbon Dioxide (21 - 33 mEq/l) 23 Anion Gap (0 - 20) 10 BUN (7 - 18 mg/dL) 65 H Creatinine (0.6 - 1.3 mg/dL) 5.0 H Glomerular Filtr Rate (95 - 105) 11.6 L Glucose (70 - 110 mg/dL) 162 H Calcium (8.0 - 10.5 mg/dL) 8.2 Ionized Calcium Jay (1.12 - 1.32 MMOL/L) 1.16 Phosphorus (2.5 - 4.9 MG/DL) 4.0 Magnesium (1.80 - 2.40 mg/dL) 2.46 H Total Bilirubin (0.0 - 1.0 mg/dL) 0.30 AST (15 - 37 IUnit/L) 24 ALT (30 - 65 IUnit/L) 7 L Total Alk Phosphatase (20 - 125 IUnit/L) 152 H Total Protein (6.4 - 8.2 g/dL) 5.6 L Albumin (3.4 - 5.0 g/dL) 2.30 L Vitamin B12 (193 - 986 pg/mL) 1579 H Cortisol AM Sample (ug/dL) 19.35 Hematology WBC (4.5 - 11.0 x10 3/uL) 11.8 H RBC (3.54 - 5.02 x10 6/uL) 2.97 L Hgb (11.0 - 15.0 g/dL) 7.8 L Hct (33.0 - 45.0 %) 23.3 L MCV (81.0 - 99.0 fL) 78.5 L MCH (27.0 - 33.0 pg) 26.3 L MCHC (33.0 - 37.0 g/dL) 33.5 RDW (11.5 - 14.5 %) 14.9 H Plt Count (150 - 400 x10 3/uL) 205 MPV (7.0 - 9.0 fL) 11.9 H Neut % (Auto) (56.0 - 77.0 %) 62.4 Lymph % (Auto) (14.0 - 32.0 %) 23.4 [place] % (Auto) (4.8 - 9.0 %) 12.9 H Eos % (Auto) (0.3 - 3.7 %) 0.3 Baso % (Auto) (0.0 - 2.0 %) 0.2 Neut # (Auto) (2.0 - 7.6 x10 3/uL) 7.39 Lymph # (Auto) (1.0 - 3.8 x10 3/uL) 2.77 [place] # (Auto) (0.1 - 0.8 x10 3/uL) 1.53 H Eos # (Auto) (0.0 - 0.2 x10 3/uL) 0.03 Baso # (Auto) (0.0 - 0.2 x10 3/uL) 0.02 Abs Immat Gran (auto) (0.00 - 0.03 x10 3/uL) 0. 09 H Add Manual Diff NO Immature Gran % (0.0 - 2.0 %) 0.8 Nucleated RBC % (0 - 0 %) 0.0 Nucleated RBCs # (Man) (0.0 - 0.1 x10 3/uL) 0.0 0 Urines Urine HCG, Qual (NEGATIVE) NEGATIVE 10/13 10/12 10/12 10/12 0153 2345 2108 1651 Chemistry POC Glucose (70 - 110 MG/DL) 113 H 112 H 92 Urines Urine Color (YEL/STRAW) YELLOW Urine Appearance (CLEAR) SL CLOUDY Urine pH (5.0 - 7.0) 5.0 Ur Specific [place] (1.005 - 1.030) 1.005 Urine Protein (NEGATIVE) NEGATIVE Urine Glucose (UA) (NEGATIVE) NEGATIVE Urine Ketones (NEGATIVE) NEGATIVE Urine Blood (NEGATIVE) 1+ H Urine Nitrite (NEGATIVE) NEGATIVE Urine Bilirubin (NEGATIVE) NEGATIVE Urine Urobilinogen (0.2 - 1.0 mg/dL) 0.2 Ur Leukocyte Esterase (NEGATIVE) NEGATIVE Urine RBC (0 - 3 RBC/HPF) 4-10 Urine WBC (0 - 3 WBC/HPF) 10-20 H Ur Squamous Epith Cells (NONE SEEN /HPF) 0-5 Ur Transition Epith Cell (NONE SEEN /HPF) TRACE Urine Bacteria (NONE SEEN /HPF) TRACE Urine Mucus (NONE SEEN /LPF) TRACE Microbiology: Date/Time Procedure - Status Source Growth 10/13 015 Urine Culture - RECD URINE Recent Impressions: RADIOLOGY - XR CHEST 1 V 10/13 0616 Report Impression - Status: SIGNED Entered: 10/13/2021 0659 IMPRESSION: Stable chest. Impression By: [email or web address] - Esau Angelo. RADIOLOGY - XR FOOT 2 VIEWS BI 10/13 1214 Report Impression - Status: SIGNED Entered: 10/13/2021 1329 IMPRESSION: XR Right Foot 1. Soft tissue swelling. 2. No radiographic evidence for osteomyelitis. XR Left Foot 1. Soft tissue swelling. 2. No radiographic evidence for osteomyelitis. Impression By: Bryanna Mares M.D. Diagnosis, Assessment Plan Free Text A P: 1.DM I in DKA HgbA1c >14 adjust lantus on TF monitor glucose 2.Abnormal thyroid function recheck TSH post decadron 3.Acute respiratory failure intubated 4.Altered mental status non-contrast CTH unremarkable patient not MRI-compatible LP neurology following 5.JAYLEEN with worsening renal function nephrology following 6.COVID-19 7.Bacteremia with alpha Streptococcus species on abx ID following 8.Wounds present to L + R foot debridement on abx Podiatry following at 1338 Electronically Signed by Darvin Mooney MD on 0 10/17/21 at 1229 RPT #:[id number] END OF REPORT 2021-10-13 15:02:00-00:00 [facility] Infectious Dis. Progress Note REPORT#:[id number] REPORT STATUS: Signed DATE:10/13/21 TIME: 1502 PATIENT: HARLEEN MANZANO UNIT #: [id number] ROOM/BED: [place] [address] : 80 AGE: 40 SEX: F ATTEND: Laura Trinh ADM AUTHOR: Pradip Akhtar MD, MD * ALL edits or amendments must be made on the [email or web address]/computer document * Subjective Chief complaint: DKA HPI: 40-year-old female with past medical history sig nificant for diabetes who was found unresponsive by her marisa chavez for unknown period of time. Her glucose 1095 and WBC 20 1K. Patient was resuscitated, intubated and central line was placed in ED. Unable to obtain: medical condition Review of Systems Unable to obtain due to: mc Objective General VS/I O: Vital Signs Date Temp Pulse Resp B/P B/P Mean Pulse Ox FiO2 /-10/13 97.3-99.3 82-118 10-56 114-199/57-12 1 81-137 40-100 30-97 Last Documented: Result Date Time Pulse Ox 97 10/13 1204 Temp 98.4 07/05 1204 Pulse 88 07/05 1204 Resp 39 07/05 1204 B/P 159/121 07/05 1200 B/P Mean 136 07/05 1200 FiO2 97 07/05 0822 O2 Delivery Ventilator 07/05 0822 O2 Flow Rate 15.0 07/03 1600 Vital Signs: Date Time Temp Pulse Resp B/P B/P Pulse O2 O2 Flow FiO2 Mean Ox Delivery Rate 07/05 1204 98.4 88 39 97 07/05 1200 98.4 07/05 1200 98.4 90 48 159/121 136 97 07/05 1151 96 97 07/05 1145 98.4 99 44 161/91 118 94 07/05 1130 98.6 96 33 97 07/05 1115 98.8 94 39 145/74 100 95 07/05 1100 103 56 168/97 125 93 07/05 1046 99.0 103 42 177/89 124 96 07/05 1045 99.0 103 39 96 07/05 1030 98.8 106 42 191/101 136 99 07/05 1015 98.8 100 27 158/75 108 100 07/05 1000 98.8 96 22 143/69 99 96 07/05 0945 99.0 95 42 136/63 91 94 07/05 0930 99.0 115 48 187/92 130 97 07/05 0915 99.0 118 48 195/93 133 99 07/05 0900 99.0 118 41 186/92 130 99 07/05 0845 99.0 102 26 134/63 90 100 07/05 0830 99.1 102 24 142/65 94 100 07/05 0822 40 Ventilator 97 07/05 0822 107 97 40 07/05 0815 99.1 103 22 131/57 86 97 07/05 0800 99.1 Ventilator 07/05 0800 99.1 116 22 171/79 114 98 07/05 0745 99.1 116 26 178/83 121 100 07/05 0730 99.1 116 22 182/91 127 100 07/05 0715 99.0 113 25 182/86 123 100 07/05 0700 99.0 109 18 174/84 121 100 07/05 0400 98.6 07/05 0318 91 100 30 07/05 0300 98.4 91 17 156/77 110 100 07/05 0230 98.4 111 27 190/96 137 100 07/05 0209 98.6 98 20 149/74 108 100 07/05 0200 98.8 109 40 163/104 127 100 07/05 0159 98.8 101 31 142/72 101 100 07/05 0100 99.1 91 18 114/57 81 100 07/05 0030 99.3 96 18 127/59 85 100 07/05 0000 99.3 07/05 0000 99.3 109 18 163/77 111 98 07/04 2330 99.3 97 18 130/61 88 100 07/04 2300 99.1 96 19 135/63 90 99 07/04 2257 98 100 40 07/04 2230 98.8 102 18 140/72 99 100 07/04 2200 98.4 94 18 129/62 88 100 07/04 2130 98.1 99 18 164/75 108 100 07/04 2100 97.7 101 18 171/83 119 100 07/04 2030 97.5 101 19 177/82 118 100 07/04 1999 99.0 07/04 1999 Ventilator 30 07/04 1999 97.5 98 21 179/85 122 100 07/04 1947 100 100 30 07/04 1930 97.3 100 13 186/89 128 100 07/04 1915 97.3 96 13 100 07/04 1900 97.3 96 13 156/78 108 100 07/04 1826 97.3 94 12 100 07/04 1815 97.5 93 12 100 07/04 1808 97.5 96 13 163/93 119 100 07/04 1800 97.5 105 15 199/94 135 100 07/04 1745 97.5 92 14 100 07/04 1730 97.5 84 13 123/69 90 100 07/04 1715 97.5 90 11 100 07/04 1700 97.5 84 12 127/66 90 100 07/04 1645 97.5 85 13 100 07/04 1634 97.5 85 21 100 07/04 1630 97.5 85 11 137/68 96 100 07/04 1615 97.5 83 15 100 07/04 1600 97.5 07/04 1600 97.5 90 12 147/75 105 100 07/04 1557 82 100 30 07/04 1557 89 12 100 07/04 1545 97.3 87 10 100 07/04 1530 97.3 88 18 146/75 103 100 07/04 1515 97.3 89 18 100 24 hour I O ending at 0700: 0705 0700 0704 1900 Intake Total 489.71 1338.55 Output Total 2075 700 Balance -1585.29 638.55 Intake, Free 60 60 Water Intake, IV 113.71 941.55 Intake, Tube 316 337 Feeding Number 0 Bowel Movements Output, Urine 2075 700 Patient 188.2 kg 188.6 kg Weight Weight Bed scale Bed scale Measurement Method PATIENT WEIGHT: Weight (lb): 414 Weight (oz): 14.56 Weight (kg): 188.200 Medications: Active Meds + DC'd Last 24 Hrs Insulin Glargine (Lantus/Semglee) 15 UNIT BID BLANKENSHIP BQ Fluconazole/Sodium Chloride (FLUCONAZOLE 200MG/N S 100ML) 100 ML DAILY IV Dexmedetomidine/Sodium Chloride (PRECEDEX 1000MC G/NS 250ML) 250 ML ASDIR IV Fluconazole/Sodium Chloride (FLUCONAZOLE 200MG/N S 100ML) 100 ML ONCE ONE IV (DC) Metoclopramide HCl (REGLAN) 5 MG Q8H IV Labetalol HCl (LABETALOL HCL) 20 MG Q6H PRN PRN IV Insulin Glargine (Lantus/Semglee) 25 UNIT BID BLANKENSHIP BQ (DC) Lactated Ringer's (LACTATED RINGERS) 1,000 ML .Q 20H IV (DC) Polyethylene Glycol (MIRALAX) 17 GM BID FEED-TUB E Senna/Docusate Sodium (SENOKOT S) 2 TAB DAILY FE ED-TUBE Insulin Human Lispro (HUMALOG) 0 Q4H SUBQ Cefazolin Sodium (KEFZOL OR ANCEF) 1 GM Q12H IV Sodium Chloride (SODIUM CHLORIDE) 10 ML Heparin Sodium (HEPARIN 5000 UNITS/ML) 5,000 UNI T Q8H SUBQ Lactated Ringer's (LACTATED RINGERS) 1,000 ML .Q 10H IV (DC) Propofol (DIPRIVAN 1,000MG/100ML) 100 ML TITRATE IV (CKD) Lactated Ringer's (LACTATED RINGERS) 1,000 ML DIAZ EVANGELINA IV Famotidine (PEPCID) 20 MG Q12HR IV Fentanyl Citrate (Fentanyl 2,500MCG/NS 250ML) 25 0 ML ASDIR IV (CKD) Mupirocin (BACTROBAN 2% 22 GM OINTMENT) 1 APPLIC BID NASAL (DC) Dextrose/Water (DEXTROSE 50% W SYRINGE) 50 ML DIR PRN IV (CKD) Dextrose/Water (Dextrose 10% W) 1,000 ML ASDIR I V Magnesium Sulfate (MAGNESIUM SULFATE 2GM/SWFI 50 ML) 50 ML ASDIR PRN IV Magnesium Sulfate (MAGNESIUM SULFATE 4GM/SWFI 10 0ML) 100 ML ASDIR PRN IV Potassium Chloride (POTASSIUM CHLORIDE 20MEQ TAB .ER) 20 MEQ ASDIR PRN PO Potassium Chloride (POTASSIUM CHLORIDE 20MEQ TAB .ER) 40 MEQ ASDIR PRN PO Potassium Chloride (POTASSIUM CHLORIDE 20MEQ TAB .ER) 60 MEQ ASDIR PRN PO (CKD) Potassium Chloride (KCL 20MEQ/SWFI 100ML) 100 ML ASDIR PRN IV Potassium Phosphate (POTASSIUM PHOSPHATE) 15 MM ASDIR PRN IV Sodium Chloride (SODIUM CHLORIDE 0.9%) 250 ML Physical Exam General appearance: lethargic Head/Eyes: atraumatic, normocephalic Neck: non-tender, supple/no meningismus Cardiovascular: normal heart sounds, no murmur Respiratory: clear to auscultation, symmetric ex pansion Abdomen: non-tender, soft Extremities: no clubbing Results Findings/Data: Laboratory Tests 10/13 0319 Blood Gas Puncture Site R Radial O2 Saturation (90 - 100 %) 99.4 ABG pH (7.35 - 7.45) 7.404 ABG pCO2 (35.0 - 45 mmHg) 34.8 L ABG pO2 (80 - 100.0 mmHg) 157.5 H ABG PO2/FiO2 Ratio (mm/Hg) 393.75 ABG HCO3 (22.0 - 26.0 MMOL/L) 21.8 L ABG Total CO2 22.9 ABG Base Excess (-4.0 - 4.0 MMOL/L) -2.9 Sintia Test Positive O2 Delivery Device Adult Vent Vent Mode AC Vent Rate (/MIN) 18 FiO2 (%) 40 Tidal Volume (ml) 500 PEEP (cmH2O) 5 Laboratory Tests 10/13 10/13 10/13 10/13 1349 0819 0510 0510 Chemistry POC Glucose (70 - 110 MG/DL) 215 H 188 H Ammonia (11 - 35 umol/L) < 10 L C-Reactive Protein (<10.0 mg/L) 116.0 H 10/13 2345 2108 1651 Chemistry Sodium (134 - 147 mEq/L) 137 Potassium (3.4 - 5.0 mEq/L) 3.7 Chloride (100 - 108 mEq/L) 108 Carbon Dioxide (21 - 33 mEq/l) 23 Anion Gap (0 - 20) 10 BUN (7 - 18 mg/dL) 65 H Creatinine (0.6 - 1.3 mg/dL) 5.0 H Glomerular Filtr Rate (95 - 105) 11.6 L Glucose (70 - 110 mg/dL) 162 H POC Glucose (70 - 110 MG/DL) 113 H 112 H 92 Calcium (8.0 - 10.5 mg/dL) 8.2 Ionized Calcium Jay (1.12 - 1.32 MMOL/L) 1.16 Phosphorus (2.5 - 4.9 MG/DL) 4.0 Magnesium (1.80 - 2.40 mg/dL) 2.46 H Total Bilirubin (0.0 - 1.0 mg/dL) 0.30 AST (15 - 37 IUnit/L) 24 ALT (30 - 65 IUnit/L) 7 L Total Alk Phosphatase (20 - 125 IUnit/L) 152 H Total Protein (6.4 - 8.2 g/dL) 5.6 L Albumin (3.4 - 5.0 g/dL) 2.30 L Vitamin B12 (193 - 986 pg/mL) 1579 H Cortisol AM Sample (ug/dL) 19.35 Laboratory Tests 10/13 509 Hematology WBC (4.5 - 11.0 x10 3/uL) 11.8 H RBC (3.54 - 5.02 x10 6/uL) 2.97 L Hgb (11.0 - 15.0 g/dL) 7.8 L Hct (33.0 - 45.0 %) 23.3 L MCV (81.0 - 99.0 fL) 78.5 L MCH (27.0 - 33.0 pg) 26.3 L MCHC (33.0 - 37.0 g/dL) 33.5 RDW (11.5 - 14.5 %) 14.9 H Plt Count (150 - 400 x10 3/uL) 205 MPV (7.0 - 9.0 fL) 11.9 H Neut % (Auto) (56.0 - 77.0 %) 62.4 Lymph % (Auto) (14.0 - 32.0 %) 23.4 [place] % (Auto) (4.8 - 9.0 %) 12.9 H Eos % (Auto) (0.3 - 3.7 %) 0.3 Baso % (Auto) (0.0 - 2.0 %) 0.2 Neut # (Auto) (2.0 - 7.6 x10 3/uL) 7.39 Lymph # (Auto) (1.0 - 3.8 x10 3/uL) 2.77 [place] # (Auto) (0.1 - 0.8 x10 3/uL) 1.53 H Eos # (Auto) (0.0 - 0.2 x10 3/uL) 0.03 Baso # (Auto) (0.0 - 0.2 x10 3/uL) 0.02 Abs Immat Gran (auto) (0.00 - 0.03 x10 3/uL) 0. 09 H Add Manual Diff NO Immature Gran % (0.0 - 2.0 %) 0.8 Nucleated RBC % (0 - 0 %) 0.0 Nucleated RBCs # (Man) (0.0 - 0.1 x10 3/uL) 0.0 0 Laboratory Tests 10/13 10/13 0153 0153 Urines Urine Color (YEL/STRAW) YELLOW Urine Appearance (CLEAR) SL CLOUDY Urine pH (5.0 - 7.0) 5.0 Ur Specific [place] (1.005 - 1.030) 1.005 Urine Protein (NEGATIVE) NEGATIVE Urine Glucose (UA) (NEGATIVE) NEGATIVE Urine Ketones (NEGATIVE) NEGATIVE Urine Blood (NEGATIVE) 1+ H Urine Nitrite (NEGATIVE) NEGATIVE Urine Bilirubin (NEGATIVE) NEGATIVE Urine Urobilinogen (0.2 - 1.0 mg/dL) 0.2 Ur Leukocyte Esterase (NEGATIVE) NEGATIVE Urine RBC (0 - 3 RBC/HPF) 4-10 Urine WBC (0 - 3 WBC/HPF) 10-20 H Ur Squamous Epith Cells (NONE SEEN /HPF) 0-5 Ur Transition Epith Cell (NONE SEEN /HPF) TRACE Urine Bacteria (NONE SEEN /HPF) TRACE Urine Mucus (NONE SEEN /LPF) TRACE Urine HCG, Qual (NEGATIVE) NEGATIVE Radiology data: Recent Impressions: RADIOLOGY - XR CHEST 1 V 10/13 0616 Report Impression - Status: SIGNED Entered: 10/13/2021 0659 IMPRESSION: Stable chest. Impression By: KhaiBJMEsau Bello. RADIOLOGY - XR FOOT 2 VIEWS BI 10/13 1214 Report Impression - Status: SIGNED Entered: 10/13/2021 1329 IMPRESSION: XR Right Foot 1. Soft tissue swelling. 2. No radiographic evidence for osteomyelitis. XR Left Foot 1. Soft tissue swelling. 2. No radiographic evidence for osteomyelitis. Impression By: Bryanna Mares M.D. Results: labs reviewed, turner l signs reviewed, x-ray personally reviewed, current med profile rev'd Treatment Prophylaxis Treatment Prophylaxis CVC/PICC documentation: The data below has been imported from nursing do cumentation. Any exceptions have been noted below under Provider comments. CVC/PICC insertion date/time: CVC multi lumen tr iple Internal jugular Right Inserted 10/08/21 2651 Provider comments on imported nursing data: [] Diagnosis, Assessment Plan Problem List/A P: 1. DKA (diabetic ketoacidosis) 2. COVID 3. JAYLEEN (acute kidney injury) 4. Severe sepsis 5. Metabolic encephalopathy Free Text A P: Severe DKA, intubated due to AMS COVID without pnuemonia or hypoxia Strep mitis on blood 10/08, repeat 10/10 negative L foot wound culture E coli and Enterococcus JAYLEEN, Nephrology monitoring for HD need On Ancef LP requested by Neurology plan to change to Unasyn/Augemetin after LP will follow Plan discussed with: admitting physician, thais mancilla ([facility] BIG DATA SOFTWARE ENGINEER) Electronically Signed by Pradip Akhtar MD, MD on at 1508 RPT #:[id number] END OF REPORT 2021-10-13 14:02:00-00:00 [facility] ([facility] Nephrology Progress Note REPORT#:[id number] REPORT STATUS: Signed DATE:10/13/21 TIME: 1402 PATIENT: HARLEEN MANZANO UNIT #: [id number] ROOM/BED: [place] [id number] : 80 AGE: 40 SEX: F ATTEND: Laura Trinh ADM AUTHOR: Mary Steiner MD * ALL edits or amendments must be made on the [email or web address]/[employer] document * Subjective Chief complaint: Chart reviewed Events noted Objective General VS/I O: Vital Signs: Date Time Temp Pulse Resp B/P B/P Pulse O2 O2 F low FiO2 Mean Ox Delivery Rate 07/05 1204 36.9 88 39 97 07/05 1200 36.9 07/05 1200 36.9 90 48 159/121 136 97 07/05 1151 96 97 07/05 1145 36.9 99 44 161/91 118 94 07/05 1130 37.0 96 33 97 07/05 1115 37.1 94 39 145/74 100 95 07/05 1100 103 56 168/97 125 93 07/05 1046 37.2 103 42 177/89 124 96 07/05 1045 37.2 103 39 96 07/05 1030 37.1 106 42 191/101 136 99 07/05 1015 37.1 100 27 158/75 108 100 07/05 1000 37.1 96 22 143/69 99 96 07/05 0945 37.2 95 42 136/63 91 94 07/05 0930 37.2 115 48 187/92 130 97 07/05 0915 37.2 118 48 195/93 133 99 07/05 0900 37.2 118 41 186/92 130 99 07/05 0845 37.2 102 26 134/63 90 100 07/05 0830 37.3 102 24 142/65 94 100 07/05 0822 40 Ventilator 97 07/05 0822 107 97 40 07/05 0815 37.3 103 22 131/57 86 97 07/05 0800 37.3 Ventilator 07/05 0800 37.3 116 22 171/79 114 98 07/05 0745 37.3 116 26 178/83 121 100 07/05 0730 37.3 116 22 182/91 127 100 07/05 0715 37.2 113 25 182/86 123 100 07/05 0700 37.2 109 18 174/84 121 100 07/05 0400 37.0 07/05 0318 91 100 30 07/05 0300 36.9 91 17 156/77 110 100 07/05 0230 36.9 111 27 190/96 137 100 07/05 0209 37.0 98 20 149/74 108 100 07/05 0200 37.1 109 40 163/104 127 100 07/05 0159 37.1 101 31 142/72 101 100 07/05 0100 37.3 91 18 114/57 81 100 07/05 0030 37.4 96 18 127/59 85 100 07/05 0000 37.4 07/05 0000 37.4 109 18 163/77 111 98 07/04 2330 37.4 97 18 130/61 88 100 07/04 2300 37.3 96 19 135/63 90 99 07/04 2257 98 100 40 07/04 2230 37.1 102 18 140/72 99 100 07/04 2200 36.9 94 18 129/62 88 100 07/04 2130 36.7 99 18 164/75 108 100 07/04 2100 36.5 101 18 171/83 119 100 07/04 2030 36.4 101 19 177/82 118 100 07/04 2000 37.2 07/04 2000 Ventilator 30 07/04 2000 36.4 98 21 179/85 122 100 07/04 1947 100 100 30 07/04 1930 36.3 100 13 186/89 128 100 07/04 1915 36.3 96 13 100 07/04 1900 36.3 96 13 156/78 108 100 07/04 1826 36.3 94 12 100 07/04 1815 36.4 93 12 100 07/04 1808 36.4 96 13 163/93 119 100 07/04 1800 36.4 105 15 199/94 135 100 07/04 1745 36.4 92 14 100 07/04 1730 36.4 84 13 123/69 90 100 07/04 1715 36.4 90 11 100 07/04 1700 36.4 84 12 127/66 90 100 07/04 1645 36.4 85 13 100 07/04 1634 36.4 85 21 100 07/04 1630 36.4 85 11 137/68 96 100 07/04 1615 36.4 83 15 100 07/04 1600 36.4 07/04 1600 36.4 90 12 147/75 105 100 07/04 1557 82 100 30 07/04 1557 89 12 100 07/04 1545 36.3 87 10 100 07/04 1530 36.3 88 18 146/75 103 100 07/04 1515 36.3 89 18 100 07/04 1500 36.3 89 18 145/71 100 100 07/04 1445 36.2 82 18 100 07/04 1430 36.2 90 18 154/76 108 100 07/04 1415 36.2 92 18 100 07/04 1413 36.2 92 18 100 24 hour I O ending at 0700: 07/05 0700 07/04 1900 Intake Total 489.71 1338.55 Output Total 2075 700 Balance -1585.29 638.55 Intake, Free 60 60 Water Intake, IV 113.71 941.55 Intake, Tube 316 337 Feeding Number 0 Bowel Movements Output, Urine 2075 700 Patient 188.2 kg 188.6 kg Weight Weight Bed scale Bed scale Measurement Method PATIENT WEIGHT: Weight (lb): 414 Weight (oz): 14.56 Weight (kg): 188.200 Medications Active Meds + DC'd Last 24 Hrs Fluconazole/Sodium Chloride (FLUCONAZOLE 200MG/N S 100ML) 100 ML DAILY IV Dexmedetomidine/Sodium Chloride (PRECEDEX 1000MC G/NS 250ML) 250 ML ASDIR IV Fluconazole/Sodium Chloride (FLUCONAZOLE 200MG/N S 100ML) 100 ML ONCE ONE IV (DC) Metoclopramide HCl (REGLAN) 5 MG Q8H IV Labetalol HCl (LABETALOL HCL) 20 MG Q6H PRN PRN IV Insulin Glargine (Lantus/Semglee) 25 UNIT BID BLANKENSHIP BQ Furosemide (LASIX 40 mg/4 mL INJECTION) 80 MG ON CE ONE IV (DC) Lactated Ringer's (LACTATED RINGERS) 1,000 ML .Q 20H IV (DC) Polyethylene Glycol (MIRALAX) 17 GM BID FEED-TUB E Senna/Docusate Sodium (SENOKOT S) 2 TAB DAILY F EED-TUBE Insulin Human Lispro (HUMALOG) 0 Q4H SUBQ Cefazolin Sodium (KEFZOL OR ANCEF) 1 GM Q12H IV Sodium Chloride (SODIUM CHLORIDE) 10 ML Heparin Sodium (HEPARIN 5000 UNITS/ML) 5,000 UNI T Q8H SUBQ Lactated Ringer's (LACTATED RINGERS) 1,000 ML .Q 10H IV (DC) Propofol (DIPRIVAN 1,000MG/100ML) 100 ML TITRATE IV (CKD) Lactated Ringer's (LACTATED RINGERS) 1,000 ML DIAZ EVANGELINA IV Famotidine (PEPCID) 20 MG Q12HR IV Fentanyl Citrate (Fentanyl 2,500MCG/NS 250ML) 25 0 ML ASDIR IV (CKD) Mupirocin (BACTROBAN 2% 22 GM OINTMENT) 1 APPLIC BID NASAL (DC) Dextrose/Water (DEXTROSE 50% W SYRINGE) 50 ML DIR PRN IV (CKD) Dextrose/Water (Dextrose 10% W) 1,000 ML ASDIR I V Magnesium Sulfate (MAGNESIUM SULFATE 2GM/SWFI 50 ML) 50 ML ASDIR PRN IV Magnesium Sulfate (MAGNESIUM SULFATE 4GM/SWFI 10 0ML) 100 ML ASDIR PRN IV Potassium Chloride (POTASSIUM CHLORIDE 20MEQ TAB .ER) 20 MEQ ASDIR PRN PO Potassium Chloride (POTASSIUM CHLORIDE 20MEQ TAB .ER) 40 MEQ ASDIR PRN PO Potassium Chloride (POTASSIUM CHLORIDE 20MEQ TAB .ER) 60 MEQ ASDIR PRN PO (CKD) Potassium Chloride (KCL 20MEQ/SWFI 100ML) 100 ML ASDIR PRN IV Potassium Phosphate (POTASSIUM PHOSPHATE) 15 MM ASDIR PRN IV Sodium Chloride (SODIUM CHLORIDE 0.9%) 250 ML Physical Exam General appearance: respiratory support ENT: ET tube Cardiovascular: deferred due to COVID-19 isolati on Respiratory: deferred due to COVID-19 isolation Abdomen: deferred due to COVID-19 isolation Genitourinary: urinary catheter Extremities: trace visible edema Neuro/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 OPERATOR: on vent, per RN, does not follow comm ands Psychiatry: unable to evaluate Results Findings/Data: Laboratory Tests 10/13 318 Blood Gas Puncture Site R Radial O2 Saturation (90 - 100 %) 99.4 ABG pH (7.35 - 7.45) 7.404 ABG pCO2 (35.0 - 45 mmHg) 34.8 L ABG pO2 (80 - 100.0 mmHg) 157.5 H ABG PO2/FiO2 Ratio (mm/Hg) 393.75 ABG HCO3 (22.0 - 26.0 MMOL/L) 21.8 L ABG Total CO2 22.9 ABG Base Excess (-4.0 - 4.0 MMOL/L) -2.9 Sintia Test Positive O2 Delivery Device Adult Vent Vent Mode AC Vent Rate (/MIN) 18 FiO2 (%) 40 Tidal Volume (ml) 500 PEEP (cmH2O) 5 Laboratory Tests 10/13 10/13 10/13 10/13 1349 0819 0510 0510 Chemistry POC Glucose (70 - 110 MG/DL) 215 H 188 H Ammonia (11 - 35 umol/L) < 10 L C-Reactive Protein (<10.0 mg/L) 116.0 H 10/13 10/12 10/12 10/12 0510 2345 2108 1651 Chemistry Sodium (134 - 147 mEq/L) 137 Potassium (3.4 - 5.0 mEq/L) 3.7 Chloride (100 - 108 mEq/L) 108 Carbon Dioxide (21 - 33 mEq/l) 23 Anion Gap (0 - 20) 10 BUN (7 - 18 mg/dL) 65 H Creatinine (0.6 - 1.3 mg/dL) 5.0 H Glomerular Filtr Rate (95 - 105) 11.6 L Glucose (70 - 110 mg/dL) 162 H POC Glucose (70 - 110 MG/DL) 113 H 112 H 92 Calcium (8.0 - 10.5 mg/dL) 8.2 Ionized Calcium Jay (1.12 - 1.32 MMOL/L) 1.16 Phosphorus (2.5 - 4.9 MG/DL) 4.0 Magnesium (1.80 - 2.40 mg/dL) 2.46 H Total Bilirubin (0.0 - 1.0 mg/dL) 0.30 AST (15 - 37 IUnit/L) 24 ALT (30 - 65 IUnit/L) 7 L Total Alk Phosphatase (20 - 125 IUnit/L) 152 H Total Protein (6.4 - 8.2 g/dL) 5.6 L Albumin (3.4 - 5.0 g/dL) 2.30 L Vitamin B12 (193 - 986 pg/mL) 1579 H Cortisol AM Sample (ug/dL) 19.35 Laboratory Tests 10/13 0510 Hematology WBC (4.5 - 11.0 x10 3/uL) 11.8 H RBC (3.54 - 5.02 x10 6/uL) 2.97 L Hgb (11.0 - 15.0 g/dL) 7.8 L Hct (33.0 - 45.0 %) 23.3 L MCV (81.0 - 99.0 fL) 78.5 L MCH (27.0 - 33.0 pg) 26.3 L MCHC (33.0 - 37.0 g/dL) 33.5 RDW (11.5 - 14.5 %) 14.9 H Plt Count (150 - 400 x10 3/uL) 205 MPV (7.0 - 9.0 fL) 11.9 H Neut % (Auto) (56.0 - 77.0 %) 62.4 Lymph % (Auto) (14.0 - 32.0 %) 23.4 [place] % (Auto) (4.8 - 9.0 %) 12.9 H Eos % (Auto) (0.3 - 3.7 %) 0.3 Baso % (Auto) (0.0 - 2.0 %) 0.2 Neut # (Auto) (2.0 - 7.6 x10 3/uL) 7.39 Lymph # (Auto) (1.0 - 3.8 x10 3/uL) 2.77 [place] # (Auto) (0.1 - 0.8 x10 3/uL) 1.53 H Eos # (Auto) (0.0 - 0.2 x10 3/uL) 0.03 Baso # (Auto) (0.0 - 0.2 x10 3/uL) 0.02 Abs Immat Gran (auto) (0.00 - 0.03 x10 3/uL) 0. 09 H Add Manual Diff NO Immature Gran % (0.0 - 2.0 %) 0.8 Nucleated RBC % (0 - 0 %) 0.0 Nucleated RBCs # (Man) (0.0 - 0.1 x10 3/uL) 0.0 0 Laboratory Tests 10/13 10/13 0153 8963 Urines Urine Color (YEL/STRAW) YELLOW Urine Appearance (CLEAR) SL CLOUDY Urine pH (5.0 - 7.0) 5.0 Ur Specific [place] (1.005 - 1.030) 1.005 Urine Protein (NEGATIVE) NEGATIVE Urine Glucose (UA) (NEGATIVE) NEGATIVE Urine Ketones (NEGATIVE) NEGATIVE Urine Blood (NEGATIVE) 1+ H Urine Nitrite (NEGATIVE) NEGATIVE Urine Bilirubin (NEGATIVE) NEGATIVE Urine Urobilinogen (0.2 - 1.0 mg/dL) 0.2 Ur Leukocyte Esterase (NEGATIVE) NEGATIVE Urine RBC (0 - 3 RBC/HPF) 4-10 Urine WBC (0 - 3 WBC/HPF) 10-20 H Ur Squamous Epith Cells (NONE SEEN /HPF) 0-5 Ur Transition Epith Cell (NONE SEEN /HPF) TRACE Urine Bacteria (NONE SEEN /HPF) TRACE Urine Mucus (NONE SEEN /LPF) TRACE Urine HCG, Qual (NEGATIVE) NEGATIVE Radiology data: Recent Impressions: RADIOLOGY - XR CHEST 1 V 10/13 0616 Report Impression - Status: SIGNED Entered: 10/13/2021 0659 IMPRESSION: Stable chest. Impression By: KhaiBJMEsau Bello. RADIOLOGY - XR FOOT 2 VIEWS BI 10/13 1214 Report Impression - Status: SIGNED Entered: 10/13/2021 1329 IMPRESSION: XR Right Foot 1. Soft tissue swelling. 2. No radiographic evidence for osteomyelitis. XR Left Foot 1. Soft tissue swelling. 2. No radiographic evidence for osteomyelitis. Impression By: Bryanna Mares M.D. Diagnosis, Assessment Plan Free Text A P: JAYLEEN Hypokalemia Hypophosphatemia DKA Respiratory failure COVID+ Left foot wound culture with E.coli and Enteroco ccus JAYLEEN likely 2/2 ATN Cr continues to rise but good UOP S/p IV Lasix x 1 yesterday and she continues to make about 100mL/hr of urine Hold further dosing of Lasix for now Potassium and phosphorus improved after repletio n Acidosis also better No emergent indication for dialysis yet, but jenae l continue to monitor renal indices closely Electronically Signed by Mary Steiner MD on 0 10/13/21 at 1632 RPT #:[id number] END OF REPORT 2021-10-13 13:32:00-00:00 [facility] Critical Care Progress Note REPORT#:[id number] REPORT STATUS: Signed DATE:10/13/21 TIME: 1332 PATIENT: HARLEEN MANZANO UNIT #: [id number] ROOM/BED: [facility] : 80 AGE: 40 SEX: F ATTEND: Laura Trinh ADM AUTHOR: Ira Salazar BIG DATA SOFTWARE ENGINEER * ALL edits or amendments must be made on the [email or web address]/computer document * Subjective Chief complaint: AMS HPI: 40 year old female with hist ory of DM, obesity. Presented to [facility] on with complaints of lethar gy, weakness, nausea, and vomiting. Pt was intubated for airway protection then t x to [facility] d/t bed availabilty. She was found to be in DKA and +COVID. Blood cultures were positive for alpha strep. Review of Systems Unable to obtain due to: intubated Objective General VS/I O Vital Signs Date Temp Pulse Resp B/P B/P Mean Pulse Ox FiO2 10/12-10/13 97.2-99.3 82-118 10-56 114-199/57-12 1 81-137 40-100 30-97 24 hour I O ending at 0700: 10/13 0700 07/ 1900 Intake Total 489.71 1338.55 Output Total 2075 700 Balance -1585.29 638.55 Intake, Free 60 60 Water Intake, IV 113.71 941.55 Intake, Tube 316 337 Feeding Number 0 Bowel Movements Output, Urine 2075 700 Patient 188.2 kg 188.6 kg Weight Weight Bed scale Bed scale Measurement Method PATIENT WEIGHT: Weight (lb): 414 Weight (oz): 14.56 Weight (kg): 188.200 Temperature maximum: 99.3 Nutrition assessment: The data set between the solid lines has been im ported from the dietitian's assessment. Any exceptions have been noted under Provider comments. BMI Calculated: 61.3 Nutrition related diagnosis: Morbid obesity Nutrition diagnosis details: BMI 40 or more Nutrition problem: Inadequate energy intake Nutrition etiology: Ventilator dependent Nutrition signs and symptoms: +OGT REQUIRING TF TO MEET, NEEDS Nutrition prescription: TURNER L HP @ 65 ML/HR; FWF @ 30 ML Q4H PROVIDES 1560 KCAL , 137 G PRO, 1484 ML FREE H2O TF+PROPOFOL PROVID ES 1956 KCAL/D MEETS 100% OF ESTIMATED NEEDS Dietitian name: Travis Soriano, DIET Assessment completed: 10/12/21 Provider comments on imported dietitian assessme nt: Physical Exam General appearance: altered mental status, obese , respiratory support Head/eyes: atraumatic, clear cornea, normal eyel ids/periorb. ENT: moist mucosal membranes, normal dentition, normal nose Neck: full range of motion, non-tender, no JVD, no masses or swelling Cardiovascular: normal capillary refill, normal heart sounds, regular rate and rhythm Respiratory: aerating well, clear to auscultatio n, symmetric expansion Abdomen: obese, soft, non-tender, normal bowel s ounds Genitourinary: urinary catheter Extremities: moves all, no cyanosis, no edema Musculoskeletal normal inspection 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, disoriented, n o motor deficits, no sensory deficits Skin: dry, intact Psychiatry: unable to evaluate Results Findings/data: Laboratory Tests 10/13 318 Blood Gas Puncture Site R Radial O2 Saturation (90 - 100 %) 99.4 ABG pH (7.35 - 7.45) 7.404 ABG pCO2 (35.0 - 45 mmHg) 34.8 L ABG pO2 (80 - 100.0 mmHg) 157.5 H ABG PO2/FiO2 Ratio (mm/Hg) 393.75 ABG HCO3 (22.0 - 26.0 MMOL/L) 21.8 L ABG Total CO2 22.9 ABG Base Excess (-4.0 - 4.0 MMOL/L) -2.9 Sintia Test Positive O2 Delivery Device Adult Vent Vent Mode AC Vent Rate (/MIN) 18 FiO2 (%) 40 Tidal Volume (ml) 500 PEEP (cmH2O) 5 Laboratory Tests 10/13/21 0510: [Embedded Image Not Available] Microbiology: 07/05 0153 URINE: Urine Culture - RECD 10/11 0858 BLOOD: Blood Culture - RES 10/11 0858 BLOOD: Blood Culture - RES 10/10 1755 URINE: Urine Culture - COMP YEAST 10/10 1745 FOOT: Wound Culture - COMP ESCHERICHIA COLI ENTEROCOCCUS FAECALIS Radiology data Recent Impressions: RADIOLOGY - XR CHEST 1 V 10/13 0616 Report Impression - Status: SIGNED Entered: 10/13/2021 0659 IMPRESSION: Stable chest. Impression By: KhaiBJMEsau Bello RADIOLOGY - XR FOOT 2 VIEWS BI 10/13 1214 Report Impression - Status: SIGNED Entered: 10/13/2021 1329 IMPRESSION: XR Right Foot 1. Soft tissue swelling. 2. No radiographic evidence for osteomyelitis. XR Left Foot 1. Soft tissue swelling. 2. No radiographic evidence for osteomyelitis. Impression By: Bryanna Mares M.D. Results: labs reviewed, vital signs reviewed, vi viv signs stable, rhythm personally rev'd, x-ray personally reviewed, cur rent med profile rev'd Diagnosis, Assessment Plan Problem list/A P: 1. DKA (diabetic ketoacidosis) 2. Respiratory failure 3. COVID 4. JAYLEEN (acute kidney injury) 5. Hyperkalemia 6. Severe sepsis 7. Metabolic encephalopathy Free text A P: Neuro: *agitation, anxiety - propofol, fent. ho ld sedatives as tolerated for accurate neuro check *metabolic encephalopathy - Hold sedative as phoebe erated. monitor neuro checks q4h. reverse metabolic derrangments. -CTH on admission negative for any intracranial abnormality -f/u CTH 10/11 shows no change -EEG 10/13 shows continuous slowing, generalized, triphasic waves which are left central predominant. The pre sence of diffuse slowing is suggestive of a moderate degree of encephalopathy. Tr iphasic waves suggest metabolic encephalopathy, but with some focal triphasic wa ves there may be underlying anatomical or functional dysfunction, possibly epileptiform--- VEEG order ed -Pt is unable to have MRI d/t body habitus -ordered LP as reccomened by neurology * Neurology following CV: *hypotension - resolved off dopamine Pulm/airway: *acute respiratory failure, dependence on mechanical ventilation - currently on cmv 18/500/5/30 daily SAT/SB T. opens eyes briskly but does not FC. Consider SBT once more awake. ABG stable. GI: cont tf/ bowel regimen Renal: *JAYLEEN vs JAYLEEN on CKD secondary to DKA/hypovolemia/ ATN: high dose lasix. avoid nephrotoxins. Monitor I O. hypervolemic, oliguri c. no acute need for HD. * Nephrology following Heme: *microcytic anemia - stable ID: *Alpha strep bacteremia - 7 day course of ancef *covid: no current need for steriods or RDV * ID following Endo: *uncontrolled DM, DKA - DKA and GAP resolved; cont low SSI + 15 units of lantus BID. glucose so far controlled. PPX DVT: hep sq GI px: famotidine Dispo: cont ICU I have spent 33 minutes crit ical care time assessing, reviewing labs and imaging and discussing plan of care with the critical ca re weight inspector. Code status: full code Plan discussed with: admitting physician, collab orating MD, nurse, interdisc care team, pharmacy/pharmacist Critical care time: Minutes: 33 Quality: Gen Med Crit Care VTE Prophylaxis VTE prophylaxis initiated: yes Electronically Signed by Ira Salazar NP on 0 10/13/21 at 1443 RPT #:[id number] END OF REPORT 2021-10-13 11:47:00-00:00 [facility] Neurology Consultation Note REPORT#:[id number] REPORT STATUS: Signed DATE:10/13/21 TIME: 1147 PATIENT: HARLEEN MANZANO UNIT #: [id number] ROOM/BED: [facility]28-1 : 80 AGE: 40 SEX: F ATTEND: Laura Trinh ADM AUTHOR: Rj Menjivar MD * ALL edits or amendments must be made on the el [employer]/computer document * History of Present Illness HPI Requesting clinician: KEL Salazar Reason for consult: encephalopathy HPI: History is obtained from chart and staff as henrietta ent intubated. Attempted to reach patient's spouse Eryn Wilcox ([phone] ) [facility]'s other listed NOK advises he has not sp oken to patient in over 10 years. 40 year-old woman with a history of diabetes is currently admitted to ICU for management of DKA, neurology consulted for ongoi ng encephalopathy. Per documentation the patient was found down by her daughter and brought to an outside hospital ER on , where she was found to be in severe DKA, JAYLEEN and sepsis. She required intubation for airw ay protection. On admission to ICU she was noted to be COVID+ with positive UTI, bilate ral foot wounds growing diphtheroids, CoNS, E. coli, enterococcus, and b lood cultures positive for strep. She failed a CPAP trial 10/10/21, and has n ot clearly been following any commands. She has been on ce fazolin. Her renal function appears to be worsening daily. Staff note she has roving eye movements, and is moving all extremities equally and appears to be very strong. No clearl y abnormal rhythmic motor activity. EEG 10/12/21 demonstrated continuous slowing with triphasic waves that are left central predominant, possibl y due to focal dysfunction or epileptiform activity. History - Adult longitudinal Past medical history: Reports: Diabetes mellitus. Additional medical history: anemia Additional surgical history: right hip Smoking status: Smoking status for patients 13 years old or old er: Unknown,if ever smoked Allergies: Coded Allergies: Sulfa (Sulfonamide Antibiotics) (Mild, HIVES ) Review of Systems Free Text ROS Notes Free Text ROS Notes: KATHERYN 2/2 pt condition Objective General VS: Last Documented: Result Date Time Pulse Ox 40 10/13 0822 FiO2 97 10/13 0822 O2 Delivery Ventilator 10/13 08 Pulse 107 / 0822 Temp 37.0 / 0400 B/P 156/77 / 0300 B/P Mean 110 / 0300 Resp 17 10/13 0300 O2 Flow Rate 15.0 10/11 1600 PATIENT WEIGHT: Weight (lb): 414 Weight (oz): 14.56 Weight (kg): 188.200 Medications Current Home Medications Unable to Obtain Home Medication History Active Meds + DC'd Last 24 Hrs Fluconazole/Sodium Chloride (FLUCONAZOLE 200MG/N S 100ML) 100 ML DAILY IV Dexmedetomidine/Sodium Chloride (PRECEDEX 1000MC G/NS 250ML) 250 ML ASDIR IV Fluconazole/Sodium Chloride (FLUCONAZOLE 200MG/N S 100ML) 100 ML ONCE ONE IV (DC) Metoclopramide HCl (REGLAN) 5 MG Q8H IV Labetalol HCl (LABETALOL HCL) 20 MG Q6H PRN PRN IV Insulin Glargine (Lantus/Semglee) 25 UNIT BID BLANKENSHIP BQ Furosemide (LASIX 40 mg/4 mL INJECTION) 80 MG ON CE ONE IV (DC) Lactated Ringer's (LACTATED RINGERS) 1,000 ML .Q 20H IV (DC) Polyethylene Glycol (MIRALAX) 17 GM BID FEED-TUB E Senna/Docusate Sodium (SENOKOT S) 2 TAB DAILY FE ED-TUBE Insulin Human Lispro (HUMALOG) 0 Q4H SUBQ Cefazolin Sodium (KEFZOL OR ANCEF) 1 GM Q12H IV Sodium Chloride (SODIUM CHLORIDE) 10 ML Heparin Sodium (HEPARIN 5000 UNITS/ML) 5,000 UNI T Q8H SUBQ Lactated Ringer's (LACTATED RINGERS) 1,000 ML .Q 10H IV (DC) Propofol (DIPRIVAN 1,000MG/100ML) 100 ML TITRATE IV (CKD) Lactated Ringer's (LACTATED RINGERS) 1,000 ML DIAZ EVANGELINA IV Famotidine (PEPCID) 20 MG Q12HR IV Fentanyl Citrate (Fentanyl 2,500MCG/NS 250ML) 25 0 ML ASDIR IV (CKD) Mupirocin (BACTROBAN 2% 22 GM OINTMENT) 1 APPLIC BID NASAL (DC) Dextrose/Water (DEXTROSE 50% W SYRINGE) 50 ML DIR PRN IV (CKD) Dextrose/Water (Dextrose 10% W) 1,000 ML ASDIR I V Magnesium Sulfate (MAGNESIUM SULFATE 2GM/SWFI 50 ML) 50 ML ASDIR PRN IV Magnesium Sulfate (MAGNESIUM SULFATE 4GM/SWFI 10 0ML) 100 ML ASDIR PRN IV Potassium Chloride (POTASSIUM CHLORIDE 20MEQ TAB .ER) 20 MEQ ASDIR PRN PO Potassium Chloride (POTASSIUM CHLORIDE 20MEQ TAB .ER) 40 MEQ ASDIR PRN PO Potassium Chloride (POTASSIUM CHLORIDE 20MEQ TAB .ER) 60 MEQ ASDIR PRN PO (CKD) Potassium Chloride (KCL 20MEQ/SWFI 100ML) 100 ML ASDIR PRN IV Potassium Phosphate (POTASSIUM PHOSPHATE) 15 MM ASDIR PRN IV Sodium Chloride (SODIUM CHLORIDE 0.9%) 250 ML Nutrition assessment: The data set between the solid lines has been im ported from the dietitian's assessment. Any exceptions have been noted under Provider comments. BMI Calculated: 61.3 Nutrition related diagnosis: Morbid obesity Nutrition diagnosis details: BMI 40 or more Nutrition problem: Inadequate energy intake Nutrition etiology: Ventilator dependent Nutrition signs and symptoms: +OGT REQUIRING TF TO MEET, NEEDS Nutrition prescription: TURNER L HP @ 65 ML/HR; FWF @ 30 ML Q4H PROVIDES 1560 KCAL , 137 G PRO, 1484 ML FREE H2O TF+PROPOFOL PROVID ES 1956 KCAL/D MEETS 100% OF ESTIMATED NEEDS Dietitian name: Travis Soriano, DIET Assessment completed: 10/12/21 Provider comments on imported dietitian assessme nt: Results Findings/Data: Laboratory Tests 10/13 318 Blood Gas Puncture Site R Radial O2 Saturation (90 - 100 %) 99.4 ABG pH (7.35 - 7.45) 7.404 ABG pCO2 (35.0 - 45 mmHg) 34.8 L ABG pO2 (80 - 100.0 mmHg) 157.5 H ABG PO2/FiO2 Ratio (mm/Hg) 393.75 ABG HCO3 (22.0 - 26.0 MMOL/L) 21.8 L ABG Total CO2 22.9 ABG Base Excess (-4.0 - 4.0 MMOL/L) -2.9 Sintia Test Positive O2 Delivery Device Adult Vent Vent Mode AC Vent Rate (/MIN) 18 FiO2 (%) 40 Tidal Volume (ml) 500 PEEP (cmH2O) 5 Laboratory Tests 10/13 10/13 10/13 10/13 0819 0510 0510 0510 Chemistry Sodium (134 - 147 mEq/L) 137 Potassium (3.4 - 5.0 mEq/L) 3.7 Chloride (100 - 108 mEq/L) 108 Carbon Dioxide (21 - 33 mEq/l) 23 Anion Gap (0 - 20) 10 BUN (7 - 18 mg/dL) 65 H Creatinine (0.6 - 1.3 mg/dL) 5.0 H Glomerular Filtr Rate (95 - 105) 11.6 L Glucose (70 - 110 mg/dL) 162 H POC Glucose (70 - 110 MG/DL) 188 H Calcium (8.0 - 10.5 mg/dL) 8.2 Ionized Calcium Jay (1.12 - 1.32 MMOL/L) 1.16 Phosphorus (2.5 - 4.9 MG/DL) 4.0 Magnesium (1.80 - 2.40 mg/dL) 2.46 H Total Bilirubin (0.0 - 1.0 mg/dL) 0.30 AST (15 - 37 IUnit/L) 24 ALT (30 - 65 IUnit/L) 7 L Total Alk Phosphatase (20 - 125 IUnit/L) 152 H Ammonia (11 - 35 umol/L) < 10 L C-Reactive Protein (<10.0 mg/L) 116.0 H Total Protein (6.4 - 8.2 g/dL) 5.6 L Albumin (3.4 - 5.0 g/dL) 2.30 L Vitamin B12 (193 - 986 pg/mL) 1579 H Cortisol AM Sample (ug/dL) 19.35 10/12 10/12 10/12 10/12 2345 2108 1651 1236 Chemistry POC Glucose (70 - 110 MG/DL) 113 H 112 H 92 79 Laboratory Tests 10/13 10/12 0510 1228 Hematology WBC (4.5 - 11.0 x10 3/uL) 11.8 H RBC (3.54 - 5.02 x10 6/uL) 2.97 L Hgb (11.0 - 15.0 g/dL) 7.8 L 7.9 L Hct (33.0 - 45.0 %) 23.3 L 23.2 L MCV (81.0 - 99.0 fL) 78.5 L MCH (27.0 - 33.0 pg) 26.3 L MCHC (33.0 - 37.0 g/dL) 33.5 RDW (11.5 - 14.5 %) 14.9 H Plt Count (150 - 400 x10 3/uL) 205 MPV (7.0 - 9.0 fL) 11.9 H Neut % (Auto) (56.0 - 77.0 %) 62.4 Lymph % (Auto) (14.0 - 32.0 %) 23.4 [place] % (Auto) (4.8 - 9.0 %) 12.9 H Eos % (Auto) (0.3 - 3.7 %) 0.3 Baso % (Auto) (0.0 - 2.0 %) 0.2 Neut # (Auto) (2.0 - 7.6 x10 3/uL) 7.39 Lymph # (Auto) (1.0 - 3.8 x10 3/uL) 2.77 [place] # (Auto) (0.1 - 0.8 x10 3/uL) 1.53 H Eos # (Auto) (0.0 - 0.2 x10 3/uL) 0.03 Baso # (Auto) (0.0 - 0.2 x10 3/uL) 0.02 Abs Immat Gran (auto) (0.00 - 0.03 x10 3/uL) 0. 09 H Add Manual Diff NO Immature Gran % (0.0 - 2.0 %) 0.8 Nucleated RBC % (0 - 0 %) 0.0 Nucleated RBCs # (Man) (0.0 - 0.1 x10 3/uL) 0.0 0 Laboratory Tests 10/13 10/13 0153 0153 Urines Urine Color (YEL/STRAW) YELLOW Urine Appearance (CLEAR) SL CLOUDY Urine pH (5.0 - 7.0) 5.0 Ur Specific [place] (1.005 - 1.030) 1.005 Urine Protein (NEGATIVE) NEGATIVE Urine Glucose (UA) (NEGATIVE) NEGATIVE Urine Ketones (NEGATIVE) NEGATIVE Urine Blood (NEGATIVE) 1+ H Urine Nitrite (NEGATIVE) NEGATIVE Urine Bilirubin (NEGATIVE) NEGATIVE Urine Urobilinogen (0.2 - 1.0 mg/dL) 0.2 Ur Leukocyte Esterase (NEGATIVE) NEGATIVE Urine RBC (0 - 3 RBC/HPF) 4-10 Urine WBC (0 - 3 WBC/HPF) 10-20 H Ur Squamous Epith Cells (NONE SEEN /HPF) 0-5 Ur Transition Epith Cell (NONE SEEN /HPF) TRACE Urine Bacteria (NONE SEEN /HPF) TRACE Urine Mucus (NONE SEEN /LPF) TRACE Urine HCG, Qual (NEGATIVE) NEGATIVE Radiology Data: Recent Impressions: RADIOLOGY - XR CHEST 1 V 10/14 615 Report Impression - Status: SIGNED Entered: 10/13/2021 0659 IMPRESSION: Stable chest. Impression By: [email or web address] - Esau Angelo Results: labs reviewed, vital signs reviewed, CT results reviewed Free Text Obj Notes Free Text Obj Notes: Exam is deferred due to COVID-positive status Diagnosis, Assessment Plan Plan discussed with: nurse Free Text DxA P Notes Free text DxA P notes: 40-year-old woman with diabe elisabet currently admitted to ICU since 10/08/21 with DKA , sepsis in setting of UTI and bilateral foot wo unds on antibiotics, course notable for persistent encephalopathy, worsening JAYLEEN and difficulty weaning ventilator support. No focal or clearly epilepti form findings. EEG with suggestion of structural vs epileptiform dysfunc tion left central region. Impression: toxic-metabolic/infectious encephalo antonio, ICU delirium, should evaluate for non-convulsive seizures and conside r neuroinfectious etiologies. Recommend: - non-contrast CTH unremarkable - patient not MRI-compatible - discuss with ID whether would broaden antimicr obial coverage for bacterial/ viral meningoencephalitides - would ideally need CSF however body habitus m ay preclude this - cEEG - no AEDs for now - management of acute infectious and metabolic i ssues per primary, ICC, consultants - will follow up results of testing with further recommendations - d/w RN Electronically Signed by Rj Menjivar MD on 08/30 at 1224 RPT #:[id number] END OF REPORT 2021-10-13 10:42:00-00:00 [facility] ([facility] Hospitalist Progress Note REPORT#:[id number] REPORT STATUS: Signed DATE:10/13/21 TIME: 1041 PATIENT: HARLEEN MANZANO UNIT #: [id number] ROOM/BED: [address] : 80 AGE: 40 SEX: F ATTEND: Laura Trinh ADM AUTHOR: Laura Trinh MD * ALL edits or amendments must be made on the [email or web address] document * Subjective Chief complaint: Patient intubated, sedated, weaning off sedation Objective General VS/I O: Vital Signs: Date Time Temp Pulse Resp B/P B/P Pulse O2 O2 F low FiO2 Mean Ox Delivery Rate 07/05 1902 97.0 68 17 100 07/05 1900 97.0 69 19 145/86 110 100 07/05 1845 97.0 66 18 149/88 113 100 07/05 1830 97.0 66 18 149/84 110 100 07/05 1815 97.0 66 18 149/81 109 100 07/05 1800 97.0 76 18 154/93 116 100 07/05 1745 97.0 65 18 145/84 109 100 07/05 1730 97.2 66 18 142/83 107 100 07/05 1715 97.2 67 18 143/87 108 100 07/05 1700 97.2 67 18 143/82 108 100 07/05 1645 97.3 69 19 141/85 108 100 07/05 1630 97.3 72 23 139/86 106 100 07/05 1615 97.3 68 18 135/81 103 100 07/05 1612 97.3 69 18 100 07/05 1600 97.3 07/05 1600 97.3 69 18 135/78 101 100 07/05 1545 97.3 80 18 145/90 111 100 07/05 1530 97.3 69 18 135/79 102 100 07/05 1519 68 100 07/05 1515 97.5 68 18 133/78 100 100 07/05 1500 97.5 68 18 134/77 100 100 07/05 1445 97.5 68 18 135/78 101 100 07/05 1430 97.7 71 23 137/77 101 100 07/05 1415 97.7 75 38 139/78 102 100 07/05 1400 97.7 72 35 129/73 94 100 07/05 1345 97.9 75 34 132/74 97 99 07/05 1330 97.9 74 37 129/69 93 99 07/05 1315 97.9 74 27 131/69 94 98 07/05 1300 98.1 80 27 138/70 98 99 07/05 1245 98.1 81 33 138/68 96 97 07/05 1230 98.2 83 36 140/69 98 97 07/05 1215 98.2 90 39 153/77 108 95 07/05 1204 98.4 88 39 97 07/05 1200 98.4 07/05 1200 98.4 90 48 159/121 136 97 07/05 1151 96 97 07/05 1145 98.4 99 44 161/91 118 94 07/05 1130 98.6 96 33 97 07/05 1115 98.8 94 39 145/74 100 95 07/05 1100 103 56 168/97 125 93 07/05 1046 99.0 103 42 177/89 124 96 07/05 1045 99.0 103 39 96 07/05 1030 98.8 106 42 191/101 136 99 07/05 1015 98.8 100 27 158/75 108 100 07/05 1000 98.8 96 22 143/69 99 96 07/05 0945 99.0 95 42 136/63 91 94 07/05 0930 99.0 115 48 187/92 130 97 07/05 0915 99.0 118 48 195/93 133 99 07/05 0900 99.0 118 41 186/92 130 99 07/05 0845 99.0 102 26 134/63 90 100 07/05 0830 99.1 102 24 142/65 94 100 07/05 0822 40 Ventilator 97 07/05 0822 107 97 40 07/05 0815 99.1 103 22 131/57 86 97 07/05 0800 99.1 Ventilator 07/05 0800 99.1 116 22 171/79 114 98 07/05 0745 99.1 116 26 178/83 121 100 07/05 0730 99.1 116 22 182/91 127 100 07/05 0715 99.0 113 25 182/86 123 100 07/05 0700 99.0 109 18 174/84 121 100 07/05 0400 98.6 07/05 0318 91 100 30 07/05 0300 98.4 91 17 156/77 110 100 07/05 0230 98.4 111 27 190/96 137 100 07/05 0209 98.6 98 20 149/74 108 100 07/05 0200 98.8 109 40 163/104 127 100 07/05 0159 98.8 101 31 142/72 101 100 07/05 0100 99.1 91 18 114/57 81 100 07/05 0030 99.3 96 18 127/59 85 100 07/05 0000 99.3 07/05 0000 99.3 109 18 163/77 111 98 07/04 2330 99.3 97 18 130/61 88 100 07/04 2300 99.1 96 19 135/63 90 99 07/04 2257 98 100 40 07/04 2230 98.8 102 18 140/72 99 100 07/04 2200 98.4 94 18 129/62 88 100 07/04 2130 98.1 99 18 164/75 108 100 07/04 2100 97.7 101 18 171/83 119 100 07/04 2030 97.5 101 19 177/82 118 100 07/04 1999 99.0 071999 Ventilator 30 10/13 1999 97.5 98 21 179/85 122 100 07/04 1947 100 100 30 07/ 1930 97.3 100 13 186/89 128 100 07/04 1915 97.3 96 13 100 24 hour I O ending at 0700: 10/13 0700 / 1900 Intake Total 489.71 1338.55 Output Total 2075 700 Balance -1585.29 638.55 Intake, Free 60 60 Water Intake, IV 113.71 941.55 Intake, Tube 316 337 Feeding Number 0 Bowel Movements Output, Urine 2075 700 Patient 188.2 kg 188.6 kg Weight Weight Bed scale Bed scale Measurement Method PATIENT WEIGHT: Weight (lb): 414 Weight (oz): 14.56 Weight (kg): 188.200 Medications: Active Meds + DC'd Last 24 Hrs Insulin Glargine (Lantus/Semglee) 15 UNIT BID BLANKENSHIP BQ (CAN) Insulin Glargine (Lantus/Semglee) 20 UNIT BID BLANKENSHIP BQ Fluconazole/Sodium Chloride (FLUCONAZOLE 200MG/N S 100ML) 100 ML DAILY IV Dexmedetomidine/Sodium Chloride (PRECEDEX 1000MC G/NS 250ML) 250 ML ASDIR IV Fluconazole/Sodium Chloride (FLUCONAZOLE 200MG/N S 100ML) 100 ML ONCE ONE IV (DC) Metoclopramide HCl (REGLAN) 5 MG Q8H IV Labetalol HCl (LABETALOL HCL) 20 MG Q6H PRN PRN IV Insulin Glargine (Lantus/Semglee) 25 UNIT BID BLANKENSHIP BQ (DC) Polyethylene Glycol (MIRALAX) 17 GM BID FEED-TUB E Senna/Docusate Sodium (SENOKOT S) 2 TAB DAILY FE ED-TUBE Insulin Human Lispro (HUMALOG) 0 Q4H SUBQ Cefazolin Sodium (KEFZOL OR ANCEF) 1 GM Q12H IV Sodium Chloride (SODIUM CHLORIDE) 10 ML Heparin Sodium (HEPARIN 5000 UNITS/ML) 5,000 UNI T Q8H SUBQ Propofol (DIPRIVAN 1,000MG/100ML) 100 ML TITRATE IV (CKD) Lactated Ringer's (LACTATED RINGERS) 1,000 ML DIAZ EVANGELINA IV Famotidine (PEPCID) 20 MG Q12HR IV Fentanyl Citrate (Fentanyl 2,500MCG/NS 250ML) 25 0 ML ASDIR IV (CKD) Mupirocin (BACTROBAN 2% 22 GM OINTMENT) 1 APPLIC BID NASAL (DC) Dextrose/Water (DEXTROSE 50% W SYRINGE) 50 ML DIR PRN IV (CKD) Dextrose/Water (Dextrose 10% W) 1,000 ML ASDIR I V Magnesium Sulfate (MAGNESIUM SULFATE 2GM/SWFI 50 ML) 50 ML ASDIR PRN IV Magnesium Sulfate (MAGNESIUM SULFATE 4GM/SWFI 10 0ML) 100 ML ASDIR PRN IV Potassium Chloride (POTASSIUM CHLORIDE 20MEQ TAB .ER) 20 MEQ ASDIR PRN PO Potassium Chloride (POTASSIUM CHLORIDE 20MEQ TAB .ER) 40 MEQ ASDIR PRN PO Potassium Chloride (POTASSIUM CHLORIDE 20MEQ TAB .ER) 60 MEQ ASDIR PRN PO (CKD) Potassium Chloride (KCL 20MEQ/SWFI 100ML) 100 ML ASDIR PRN IV Potassium Phosphate (POTASSIUM PHOSPHATE) 15 MM ASDIR PRN IV Sodium Chloride (SODIUM CHLORIDE 0.9%) 250 ML Physical Exam General appearance: altered mental status Head/Eyes: normocephalic ENT: intubated Neck: no JVD Cardiovascular: normal heart sounds, regular rat e rhythm Respiratory: aerating well, clear to auscultatio n, symmetric expansion Abdomen: non-tender, normal bowel sounds, soft, no distention Extremities: b/l feet wound 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 Skin: dry Psychiatry: unable to evaluate Results Findings/Data: Laboratory Tests 10/13 318 Blood Gas Puncture Site R Radial O2 Saturation (90 - 100 %) 99.4 ABG pH (7.35 - 7.45) 7.404 ABG pCO2 (35.0 - 45 mmHg) 34.8 L ABG pO2 (80 - 100.0 mmHg) 157.5 H ABG PO2/FiO2 Ratio (mm/Hg) 393.75 ABG HCO3 (22.0 - 26.0 MMOL/L) 21.8 L ABG Total CO2 22.9 ABG Base Excess (-4.0 - 4.0 MMOL/L) -2.9 Sintia Test Positive O2 Delivery Device Adult Vent Vent Mode AC Vent Rate (/MIN) 18 FiO2 (%) 40 Tidal Volume (ml) 500 PEEP (cmH2O) 5 Laboratory Tests 10/13 10/13 10/13 10/13 10/13 1639 1349 0819 0510 0510 Chemistry POC Glucose (70 - 110 MG/DL) 226 H 215 H 188 H Ammonia (11 - 35 umol/L) < 10 L C-Reactive Protein (<10.0 mg/L) 116.0 H 10/13 10/12 10/12 0510 2345 2108 Chemistry Sodium (134 - 147 mEq/L) 137 Potassium (3.4 - 5.0 mEq/L) 3.7 Chloride (100 - 108 mEq/L) 108 Carbon Dioxide (21 - 33 mEq/l) 23 Anion Gap (0 - 20) 10 BUN (7 - 18 mg/dL) 65 H Creatinine (0.6 - 1.3 mg/dL) 5.0 H Glomerular Filtr Rate (95 - 105) 11.6 L Glucose (70 - 110 mg/dL) 162 H POC Glucose (70 - 110 MG/DL) 113 H 112 H Calcium (8.0 - 10.5 mg/dL) 8.2 Ionized Calcium Jay (1.12 - 1.32 MMOL/L) 1.16 Phosphorus (2.5 - 4.9 MG/DL) 4.0 Magnesium (1.80 - 2.40 mg/dL) 2.46 H Total Bilirubin (0.0 - 1.0 mg/dL) 0.30 AST (15 - 37 IUnit/L) 24 ALT (30 - 65 IUnit/L) 7 L Total Alk Phosphatase (20 - 125 IUnit/L) 152 H Total Protein (6.4 - 8.2 g/dL) 5.6 L Albumin (3.4 - 5.0 g/dL) 2.30 L Vitamin B12 (193 - 986 pg/mL) 1579 H Cortisol AM Sample (ug/dL) 19.35 Laboratory Tests 10/13 0510 Hematology WBC (4.5 - 11.0 x10 3/uL) 11.8 H RBC (3.54 - 5.02 x10 6/uL) 2.97 L Hgb (11.0 - 15.0 g/dL) 7.8 L Hct (33.0 - 45.0 %) 23.3 L MCV (81.0 - 99.0 fL) 78.5 L MCH (27.0 - 33.0 pg) 26.3 L MCHC (33.0 - 37.0 g/dL) 33.5 RDW (11.5 - 14.5 %) 14.9 H Plt Count (150 - 400 x10 3/uL) 205 MPV (7.0 - 9.0 fL) 11.9 H Neut % (Auto) (56.0 - 77.0 %) 62.4 Lymph % (Auto) (14.0 - 32.0 %) 23.4 [place] % (Auto) (4.8 - 9.0 %) 12.9 H Eos % (Auto) (0.3 - 3.7 %) 0.3 Baso % (Auto) (0.0 - 2.0 %) 0.2 Neut # (Auto) (2.0 - 7.6 x10 3/uL) 7.39 Lymph # (Auto) (1.0 - 3.8 x10 3/uL) 2.77 [place] # (Auto) (0.1 - 0.8 x10 3/uL) 1.53 H Eos # (Auto) (0.0 - 0.2 x10 3/uL) 0.03 Baso # (Auto) (0.0 - 0.2 x10 3/uL) 0.02 Abs Immat Gran (auto) (0.00 - 0.03 x10 3/uL) 0 .09 H Add Manual Diff NO Immature Gran % (0.0 - 2.0 %) 0.8 Nucleated RBC % (0 - 0 %) 0.0 Nucleated RBCs # (Man) (0.0 - 0.1 x10 3/uL) 0.0 0 Laboratory Tests 10/13 10/13 0153 0153 Urines Urine Color (YEL/STRAW) YELLOW Urine Appearance (CLEAR) SL CLOUDY Urine pH (5.0 - 7.0) 5.0 Ur Specific [place] (1.005 - 1.030) 1.005 Urine Protein (NEGATIVE) NEGATIVE Urine Glucose (UA) (NEGATIVE) NEGATIVE Urine Ketones (NEGATIVE) NEGATIVE Urine Blood (NEGATIVE) 1+ H Urine Nitrite (NEGATIVE) NEGATIVE Urine Bilirubin (NEGATIVE) NEGATIVE Urine Urobilinogen (0.2 - 1.0 mg/dL) 0.2 Ur Leukocyte Esterase (NEGATIVE) NEGATIVE Urine RBC (0 - 3 RBC/HPF) 4-10 Urine WBC (0 - 3 WBC/HPF) 10-20 H Ur Squamous Epith Cells (NONE SEEN /HPF) 0-5 Ur Transition Epith Cell (NONE SEEN /HPF) TRACE Urine Bacteria (NONE SEEN /HPF) TRACE Urine Mucus (NONE SEEN /LPF) TRACE Urine HCG, Qual (NEGATIVE) NEGATIVE Radiology data: Recent Impressions: RADIOLOGY - XR CHEST 1 V 10/13 0616 Report Impression - Status: SIGNED Entered: 10/13/2021 0659 IMPRESSION: Stable chest. Impression By: [email or web address] Esau Stein RADIOLOGY - XR FOOT 2 VIEWS BI 10/13 1214 Report Impression - Status: SIGNED Entered: 10/13/2021 1329 IMPRESSION: XR Right Foot 1. Soft tissue swelling. 2. No radiographic evidence for osteomyelitis. XR Left Foot 1. Soft tissue swelling. 2. No radiographic evidence for osteomyelitis. Impression By: Bryanna Mares M.D. Diagnosis, Assessment Plan Free Text DxA P Notes Free text DxA P notes: Assessment and plans: Acute respiratory failure: Intubated for airway protection, sedated Failed CPAP trial 10/10 ICC on board Sepsis: Leukocytosis, tachycardia, JAYLEEN, UA positive for UTI, bilateral foot wounds, low blood pressure Blood culture strep species on 10/08, repeat blo od culture from 10/10 negative, urine culture growing yeast, wound cultu re growing diphtheroids, coag negative staph, E. coli, Enterococcus species Received vancomycin x1 Ancef as per ID ID on board Echo when recommended by ID Wound care nurse consult for bilateral foot wou nd CT abdomen and pelvis unremarkable May need debridement of the left foot wound as per podiatry Unable to MRI, bilateral foot x-ray unremarkabl e for OM On fluconazole for yeast in urine JAYLEEN: Likely secondary to above causes. Patient also received Lasix today 7/ Avoid nephrotoxic drugs Renal ultrasound Was on dopamine for short duration / IV fluid hydration - LR DC'd Renal managing Lasix as needed May require hemodialysis Acute encephalopathy: -due to above causes -treat underlying causes CT head ordered unremarkable 10/11 EEG showing moderate encephalopathy / Ammonia IR consulted for LP Anemia: No active bleeding noted Monitor H H every 6 hours for 24 hours / blood transfusion if hemoglobin drops below 7 H H stable Bacteremia Management same as above b/l Foot infected wound Management same as above UTI Management same as above DKA: A1c more than 14 Insulin drip switched to subcu insulin Endocrine managing Constipation: Bowel regimen COVID 19 infection: Patient did not have respiratory distress on ad mission, intubated for airway protection COVID PCR positive Hyponatremia from osmotic hyperglycemia: Corrected sodium is elevated in hyperna tremic range due to severe dehydration Monitor lab -heparin for DVT prophylaxis T feeding Famotidine for GI prophylaxis [place] in place Morning labs Disposition: On IV antibiotic. Intubated, sedate d. Follow-up with cultures. Mental status altered. IR consulted for LP. Cont inue ICU care. Quality: Gen Med Crit Care VTE Prophylaxis VTE prophylaxis initiated: yes Current Medications Current medication review: I attest that the foregoing medication list in t medical record is true, accurate, and complete to the best of my knowled ge. Electronically Signed by Laura Trinh MD on 2 at 1920 RPT #:[id number] END OF REPORT 2021-10-13 10:34:00-00:00 [facility] ([facility] Electroencephalogram-EEG REPORT#:[id number] REPORT STATUS: Signed DATE:10/13/21 TIME: 1034 PATIENT: HARLEEN MANZANO UNIT #: [id number] ROOM/BED: M328-1 : 80 AGE: 40 SEX: F ATTEND: Laura Trinh ADM AUTHOR: Maegan Ricardo MD * ALL edits or amendments must be made on the [email or web address] document * Procedure Procedure Date of procedure: 10/12/21 Procedure performed: routine EEG Indication: seizure Impression/Conclusion: Procedure description This is an adult electroence phalogram performed using the standard international 10/20 electrode placement system. One channel is used for EOG and another channel is used for EKG. Findings During the maximum alert state no definite poste rior dominant rhythm or an anterior to posterior voltage gradient s een. Background consists predominantly of diffuse 6-7 Hz theta activity intermixed with occasional 3-4 Hz delta activity. There are triphasi c waves noted in the EEG which are more frequent and higher amplitude in the left central region. There were no significant ch anges noted in the EEG using varying frequencies of flickering light. No electrographic seizures are seen. The EKG rhythm strip demonstrates a regu lar cardiac rhythm and a rate of 60-90 bpm. Impression: This is an abnormal EEG due to the presence of continuous slowing, generalized, triphasic waves which are left central predomina nt. The presence of diffuse slowing is suggestive of a moderate degree of en cephalopathy. Triphasic waves suggest metabolic encephalop athy, but with some focal triphasic waves there may be underlying anatomical or functional dysfuncti on, possibly epileptiform. No electrographic seizures seen. Electronically Signed by Maegan Ricardo MD 10/13/21 at 1110 RPT #:[id number] END OF REPORT 2021-10-12 15:14:00-00:00 [facility]) Clinical Note REPORT#:[id number] REPORT STATUS: Signed DATE:10/12/21 TIME: 1514 PATIENT: HARLEEN MANZANO UNIT #: [id number] ROOM/BED: [place] [id number] : 80 AGE: 40 SEX: F ATTEND: Laura Trinh ADM AUTHOR: Filipe Owens MD * ALL edits or amendments must be made on the [email or web address] document * Clinical Note Note: [id number] Electronically Signed by Filipe Owens MD on at 1514 RPT #:[id number] END OF REPORT 2021-10-12 15:14:00-00:00 [id number] [address] PATIENT NAME: HARLEEN MANZANO ADMIT DATE: 2 ACCOUNT NO: [id number] ROOM NO: [id number].[id number] AGE: 40 REPORT TYPE: PROGRESS NOTE SEX: F ADMITTING PHYSICIAN:Delisa Shepherd MD ATTENDING PHYSICIAN:Delisa Shepherd MD DATE: 10/12/2021 SUBJECTIVE: Remains on the ventilator. In COVID isolation. Some swelling is noted. OBJECTIVE: VITAL SIGNS: Temperature 36.1, pulse 90, blood p ressure 157/71. Exam is done from a distance due to COVID-19 travis demic. Visible swelling is noted. Orally intubated. Appears sedate and generally calm. LABORATORY DATA: Hemoglobin 7.9, white count 12, 300, platelets are 199. Creatinine up to 4.6, BUN is 54, serum CO2 of 25 , potassium 3.8. IMAGING: Chest x-ray seems to be showing potenti ally some pulmonary edema. ASSESSMENT: 1. Acute tubular necrosis, presumably so urce of the urine versus skin lesions. 2. Respiratory failure. 3. Below-knee amputation. 4. Acute tubular necrosis. PLAN: From renal standpoint, I do not think the fluids are actually helping her renal function, we will stop them given chest x-ray appearance. Start Lasix IV. May need dialysis if she does not turn around. We will follow along with you. Remains critically ill. Dictated By: Filipe Owens MD WT: PN:FRANCIS/OSMIN/MALINA Conf#: [id number]#: [id number] Authenticated by Filipe Owens MD On 10/31/2021 08 :40:11 AM Electronically Signed by Filipe Owens MD on 10/31 at 0840 PATIENT NAME: AHRLEEN MANZANO [id number] 2021-10-12 12:08:00-00:00 [facility] ([place]) Hospitalist Progress Note REPORT#:[id number] REPORT STATUS: Signed DATE:10/12/21 TIME: 1208 PATIENT: HARLEEN MANZANO UNIT #: [id number] ROOM/BED: [address] : 80 AGE: 40 SEX: F ATTEND: Laura Trinh ADM AUTHOR: Laura Trinh MD * ALL edits or amendments must be made on the [email or web address] document * Subjective Chief complaint: Patient intubated, sedated, weaning off sedation Objective General VS/I O: Vital Signs: Date Time Temp Pulse Resp B/P B/P Pulse O2 O2 Flow FiO2 Mean Ox Delivery Rate 10/12 1413 97.2 92 18 100 07/04 1400 97.0 95 18 157/77 110 100 07/04 1345 97.0 90 18 100 07/04 1330 97.0 91 18 155/78 110 100 07/04 1315 97.0 97 23 100 07/04 1300 96.8 95 18 162/82 115 100 07/04 1245 96.8 90 18 100 07/04 1243 96.8 92 18 100 07/04 1230 96.8 92 18 148/75 103 100 07/04 1223 94 100 07/04 1215 97.0 95 23 100 07/04 1200 97.0 07/04 1200 97.0 93 25 146/75 104 100 07/04 1145 97.0 92 14 100 07/04 1130 97.0 91 14 152/76 106 100 07/04 1115 97.2 91 21 100 07/04 1100 97.2 91 18 151/84 111 100 07/04 1051 97.2 92 18 100 07/04 1045 97.2 90 18 100 07/04 1030 97.2 75 18 99/54 71 100 07/04 1015 97.3 77 18 100 07/04 1000 97.3 78 18 103/60 75 100 07/04 0945 97.3 78 18 100 07/04 0930 97.3 78 18 107/60 77 100 07/04 0915 97.5 79 18 100 07/04 0900 97.5 83 18 116/62 83 100 07/04 0845 97.7 87 19 100 07/04 0830 97.7 89 18 118/66 87 100 07/04 0817 100 Ventilator 30 07/04 0817 88 100 30 07/04 0815 97.7 87 18 100 07/04 0800 97.9 07/04 0800 Ventilator 07/04 0800 97.9 82 18 105/59 78 100 07/04 0745 97.9 87 18 100 07/04 0730 97.9 87 18 115/59 81 100 07/04 0715 98.1 84 18 100 07/04 0700 98.1 86 18 115/57 79 99 07/04 0630 18 07/04 0630 90 07/04 0630 98.2 07/04 0630 83 07/04 0630 117/60 07/04 0630 100 07/04 0621 18 07/04 0621 91 07/04 0621 98.4 07/04 0621 79 07/04 0621 114/58 07/04 0621 100 07/04 0500 19 07/04 0500 90 07/04 0500 98.8 07/04 0500 75 07/04 0500 101/55 07/04 0500 99 07/04 0430 97 07/04 0430 98.8 07/04 0430 83 07/04 0430 122/59 07/04 0430 100 07/04 0400 100 07/04 0400 98.8 07/04 0400 98.0 Ventilator 30 07/04 0400 87 07/04 0400 130/61 07/04 0400 99 07/04 0330 101 07/04 0330 98.8 07/04 0330 92 07/04 0330 131/67 07/04 0330 100 07/04 0245 14 07/04 0244 90 100 35 07/04 0230 0 07/04 0230 90 07/04 0230 98.4 07/04 0230 82 07/04 0230 117/58 07/04 0230 99 07/04 0200 13 07/04 0200 102 07/04 0200 98.1 07/04 0200 157/80 07/04 0200 100 07/04 0100 97.7 07/04 0100 82 07/04 0100 115/58 07/04 0100 99 07/04 0000 99 07/04 0000 97.5 07/04 0000 97.9 Ventilator 30 07/04 0000 108 07/04 0000 157/75 07/04 0000 100 07/03 2300 99 10/11 2300 97.9 10/11 2300 106 / 2300 159/75 10/11 2300 100 10/11 2250 101 10/11 2250 98.1 10/11 2250 108 / 2250 159/75 / 2250 100 / 2245 98 100 30 10/11 2200 18 10/11 2200 85 10/11 2200 98.2 10/11 2200 66 10/11 2200 87/54 10/11 2200 99 10/11 2099 18 10/11 2099 99 10/11 2099 98.6 10/11 2100 75 10/11 2100 104/57 10/11 2100 100 10/12 1999 18 10/12 1999 97 10/12 1999 98.8 10/12 1999 98.8 Ventilator 30 10/12 1999 Ventilator 30 10/12 1999 67 10/12 1999 95/52 10/12 1999 100 10/11 1944 99 100 30 10/11 1900 18 10/11 1900 92 10/11 1900 98.4 10/11 1900 69 10/11 1900 94/53 10/11 1900 99 10/11 1616 97 100 30 24 hour I O ending at 0700: 10/12 0700 10/11 1900 Intake Total 1669.00 1753.00 Output Total 160 150 Balance 1509.00 1603.00 Intake, Free 30 0 Water Intake, IV 1501.00 1753.00 Intake, Oral 0 Intake, Other 0 Intake, Tube 138 0 Feeding Number 0 Bowel Movements Output, Urine 160 150 Patient 182.4 kg Weight Weight Bed scale Measurement Method PATIENT WEIGHT: Weight (lb): 415 Weight (oz): 12.67 Weight (kg): 188.600 Medications: Active Meds + DC'd Last 24 Hrs Insulin Glargine (Lantus/Semglee) 25 UNIT BID BLANKENSHIP BQ Furosemide (LASIX 40 mg/4 mL INJECTION) 80 MG ON CE ONE IV (DC) Lactated Ringer's (LACTATED RINGERS) 1,000 ML .Q 20H IV (DC) Polyethylene Glycol (MIRALAX) 17 GM BID FEED-TUB E Senna/Docusate Sodium (SENOKOT S) 2 TAB DAILY FE ED-TUBE Bisacodyl (DULCOLAX) 10 MG ONCE ONE RECTAL (DC) Insulin Human Lispro (HUMALOG) 0 Q4H SUBQ Cefazolin Sodium (KEFZOL OR ANCEF) 1 GM Q12H IV Sodium Chloride (SODIUM CHLORIDE) 10 ML Insulin Glargine (Lantus/Semglee) 36 UNIT BID BLANKENSHIP BQ (DC) Heparin Sodium (HEPARIN 5000 UNITS/ML) 5,000 UNI T Q8H SUBQ Lactated Ringer's (LACTATED RINGERS) 1,000 ML .Q 10H IV (DC) Propofol (DIPRIVAN 1,000MG/100ML) 100 ML TITRATE IV (CKD) Lactated Ringer's (LACTATED RINGERS) 1,000 ML DIAZ EVANGELINA IV Famotidine (PEPCID) 20 MG Q12HR IV Fentanyl Citrate (Fentanyl 2,500MCG/NS 250ML) 25 0 ML ASDIR IV (CKD) Mupirocin (BACTROBAN 2% 22 GM OINTMENT) 1 APPLIC BID NASAL Dextrose/Water (DEXTROSE 50% W SYRINGE) 50 ML DIR PRN IV (CKD) Dextrose/Water (Dextrose 10% W) 1,000 ML ASDIR I V Insulin Human Regular (HumuLIN R) 100 UNIT ASDIR IV (DC) Sodium Chloride (SODIUM CHLORIDE 0.9%) 99 ML Magnesium Sulfate (MAGNESIUM SULFATE 2GM/SWFI 50 ML) 50 ML ASDIR PRN IV Magnesium Sulfate (MAGNESIUM SULFATE 4GM/SWFI 10 0ML) 100 ML ASDIR PRN IV Potassium Chloride (POTASSIUM CHLORIDE 20MEQ TAB .ER) 20 MEQ ASDIR PRN PO Potassium Chloride (POTASSIUM CHLORIDE 20MEQ TAB .ER) 40 MEQ ASDIR PRN PO Potassium Chloride (POTASSIUM CHLORIDE 20MEQ TAB .ER) 60 MEQ ASDIR PRN PO (CKD) Potassium Chloride (KCL 20MEQ/SWFI 100ML) 100 ML ASDIR PRN IV Potassium Phosphate (POTASSIUM PHOSPHATE) 15 MM ASDIR PRN IV Sodium Chloride (SODIUM CHLORIDE 0.9%) 250 ML Physical Exam General appearance: altered mental status Head/Eyes: normocephalic ENT: intubated Neck: no JVD Cardiovascular: normal heart sounds, regular rat e rhythm Respiratory: aerating well, clear to auscultatio n, symmetric expansion Abdomen: non-tender, normal bowel sounds, soft, no distention Extremities: b/l feet wound 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 Skin: dry Psychiatry: unable to evaluate Results Findings/Data: Laboratory Tests 10/12 06 Blood Gas Puncture Site R Radial O2 Saturation (90 - 100 %) 95.2 ABG pH (7.35 - 7.45) 7.415 ABG pCO2 (35.0 - 45 mmHg) 37.0 ABG pO2 (80 - 100.0 mmHg) 75.3 L ABG PO2/FiO2 Ratio (mm/Hg) 251.00 ABG HCO3 (22.0 - 26.0 MMOL/L) 23.7 ABG Total CO2 24.8 ABG Base Excess (-4.0 - 4.0 MMOL/L) -0.9 Sintia Test Positive O2 Delivery Device Adult Vent Vent Mode AC Vent Rate (/MIN) 18 FiO2 (%) 30 Tidal Volume (ml) 500 PEEP (cmH2O) 5 Laboratory Tests 10/12 10/12 10/12 10/12 10/12 1236 0818 0450 0437 0044 Chemistry Sodium (134 - 147 mEq/L) 138 Potassium (3.4 - 5.0 mEq/L) 3.8 Chloride (100 - 108 mEq/L) 106 Carbon Dioxide (21 - 33 mEq/l) 25 Anion Gap (0 - 20) 11 BUN (7 - 18 mg/dL) 54 H Creatinine (0.6 - 1.3 mg/dL) 4.6 H Glomerular Filtr Rate (95 - 105) 12.8 L Glucose (70 - 110 mg/dL) 88 POC Glucose (70 - 110 MG/DL) 79 88 90 99 Calcium (8.0 - 10.5 mg/dL) 8.3 Ionized Calcium Jay (1.12 - 1.32 MMOL/L) 1.17 Phosphorus (2.5 - 4.9 MG/DL) 2.5 Magnesium (1.80 - 2.40 mg/dL) 2.53 H Total Bilirubin (0.0 - 1.0 mg/dL) 0.30 AST (15 - 37 IUnit/L) 24 ALT (30 - 65 IUnit/L) 11 L Total Alk Phosphatase (20 - 125 IUnit/L) 117 Total Protein (6.4 - 8.2 g/dL) 6.0 L Albumin (3.4 - 5.0 g/dL) 2.50 L 10/11 10/11 10/11 10/11 2105 1839 1755 1641 Chemistry POC Glucose (70 - 110 MG/DL) 100 98 115 H 109 Laboratory Tests 10/12 10/12 1228 0450 Hematology WBC (4.5 - 11.0 x10 3/uL) 12.3 H RBC (3.54 - 5.02 x10 6/uL) 2.84 L Hgb (11.0 - 15.0 g/dL) 7.9 L 7.4 L Hct (33.0 - 45.0 %) 23.2 L 22.3 L MCV (81.0 - 99.0 fL) 78.5 L MCH (27.0 - 33.0 pg) 26.1 L MCHC (33.0 - 37.0 g/dL) 33.2 RDW (11.5 - 14.5 %) 14.6 H Plt Count (150 - 400 x10 3/uL) 199 MPV (7.0 - 9.0 fL) 12.0 H Neut % (Auto) (56.0 - 77.0 %) 49.4 L Lymph % (Auto) (14.0 - 32.0 %) 37.5 H [place] % (Auto) (4.8 - 9.0 %) 12.2 H Eos % (Auto) (0.3 - 3.7 %) 0.1 L Baso % (Auto) (0.0 - 2.0 %) 0.2 Neut # (Auto) (2.0 - 7.6 x10 3/uL) 6.10 Lymph # (Auto) (1.0 - 3.8 x10 3/uL) 4.63 H [place] # (Auto) (0.1 - 0.8 x10 3/uL) 1.50 H Eos # (Auto) (0.0 - 0.2 x10 3/uL) 0.01 Baso # (Auto) (0.0 - 0.2 x10 3/uL) 0.03 Abs Immat Gran (auto) (0.00 - 0.03 x10 3/uL) 0. 07 H Add Manual Diff NO Immature Gran % (0.0 - 2.0 %) 0.6 Nucleated RBC % (0 - 0 %) 0.2 H Nucleated RBCs # (Man) (0.0 - 0.1 x10 3/uL) 0.0 2 Laboratory Tests 10/12 0640 Urines Ur Random Creatinine (mg/dL) 113.5 Ur Random Sodium (MEQ/L) 39 Radiology data: Recent Impressions: RADIOLOGY - XR CHEST 1 V 10/11 1633 Report Impression - Status: SIGNED Entered: 10/11/2021 1634 IMPRESSION: 1. Support devices are stable in position. 2. Ill-defined bibasilar infiltrates and diminis hed lung volumes. Findings may reflect atelectasis, aspiration or pneumonia. Impression By: Melody Pack M.D. RADIOLOGY - XR CHEST 1 V 10/12 0623 Report Impression - Status: SIGNED Entered: 10/12/2021 0710 IMPRESSION: Essentially stable exam. Mid and lower lung zone pulmonary opacities. Edema and pneumonia in the differenti al. Impression By: Bryanna Mares M.D. Diagnosis, Assessment Plan Free Text DxA P Notes Free text DxA P notes: Assessment and plans: Acute respiratory failure: Intubated for airway protection, sedated Failed CPAP trial 10/10 ICC on board Sepsis: Leukocytosis, tachycardia, JAYLEEN, UA positive for UTI, bilateral foot wounds, low blood pressure Blood culture strep species on 10/08, repeat blo od culture, urine culture growing yeast, wound culture growing diphtheroids, coag negative staph, E. coli, Enterococcus species Received vancomycin x1 Ancef as per ID ID on board Echo when recommended by ID Wound care nurse consult for bilateral foot wou nd CT abdomen and pelvis unremarkable May need debridement of the left foot wound MRI of bilateral lower extremity to rule out OM JAYLEEN: Likely secondary to above causes. Patient also received Lasix today 10/10 Avoid nephrotoxic drugs Renal ultrasound Was on dopamine for short duration 10/11 IV fluid hydration - LR Renal managing Acute encephalopathy: -due to above causes -treat underlying causes CT head ordered unremarkable 10/11 Follow-up with EEG reading 10/12 Ammonia Anemia: No active bleeding noted Monitor H H every 6 hours Do blood transfusion if hemoglobin drops below 7 Bacteremia Management same as above b/l Foot infected wound Management same as above UTI Management same as above DKA: A1c more than 14 Insulin drip switched to subcu insulin Endocrine managing Constipation: Bowel regimen COVID 19 infection: Patient did not have respiratory distress on ad mission, intubated for airway protection COVID PCR pending Hyponatremia from osmotic hyperglycemia: Corrected sodium is elevated in hyperna tremic range due to severe dehydration Monitor lab -heparin for DVT prophylaxis T feeding Famotidine for GI prophylaxis [place] in place Morning labs Disposition: On IV antibiotic. Intubated, sedate d. Follow-up with cultures. MRI bilateral foot ordered to rule out O M. Follow-up with EEG reading. Follow- up with ammonia level. Continue ICU care. Quality: Gen Med Crit Care VTE Prophylaxis VTE prophylaxis initiated: yes Current Medications Current medication review: I attest that the foregoing medication list in t medical record is true, accurate, and complete to the best of my knowled ge. Electronically Signed by Laura Trinh MD on 2 at 1623 RPT #:[id number] END OF REPORT 2021-10-12 08:16:00-00:00 [facility] Critical Care Progress Note REPORT#:[id number] REPORT STATUS: Signed DATE:10/12/21 TIME: 815 PATIENT: HARLEEN MANZANO UNIT #: [id number] ROOM/BED: [facility]-1 : 80 AGE: 40 SEX: F ATTEND: Laura Trinh ADM AUTHOR: Ira Salazar BIG DATA SOFTWARE ENGINEER * ALL edits or amendments must be made on the el MD[employer]unction/computer document * Subjective Chief complaint: AMS HPI: 40 year old female with hist ory of DM, obesity. Presented to [facility] on with complaints of lethar gy, weakness, nausea, and vomiting. Pt was intubated for airway protection then t x to [facility] d/t bed availabilty. She was found to be in DKA and +COVID. Blood cultures were positive for alpha strep. Review of Systems Unable to obtain due to: intubated Objective General VS/I O Vital Signs Date Temp Pulse Resp B/P B/P Mean Pulse Ox FiO 2 10/11-10/12 97.5-98.8 85-102 0-19 78-159/48-80 58-108 99-100 30-35 24 hour I O ending at 0700: 10/12 0710/11 1900 Intake Total 1669.00 1753.00 Output Total 160 150 Balance 1509.00 1603.00 Intake, Free 30 0 Water Intake, IV 1501.00 1753.00 Intake, Oral 0 Intake, Other 0 Intake, Tube 138 0 Feeding Number 0 Bowel Movements Output, Urine 160 150 Patient 182.4 kg Weight Weight Bed scale Measurement Method PATIENT WEIGHT: Weight (lb): 402 Weight (oz): 1.97 Weight (kg): 182.400 Temperature maximum: 98.8 Nutrition assessment: The data set between the solid lines has been im ported from the dietitian's assessment. Any exceptions have been noted under Provider comments. BMI Calculated: 59.4 Nutrition related diagnosis: Morbid obesity Nutrition diagnosis details: BMI 40 or more Nutrition problem: Inadequate energy intake Nutrition etiology: Ventilator dependent Nutrition signs and symptoms: +OGT REQUIRING TF TO MEET, NEEDS Nutrition prescription: TURNER L HP @ 65 ML/HR; FWF @ 30 ML Q4H PROVIDES 1560 KCAL , 137 G PRO, 1484 ML FREE H2O TF+PROPOFOL PROVID ES 1824 KCAL/D MEETS 100% OF ESTIMATED NEEDS Dietitian name: Travis Fitzgeraldd, DIET Assessment completed: 10/09/21 Provider comments on imported dietitian assessme nt: Physical Exam General appearance: altered mental status, obese , respiratory support Head/eyes: atraumatic, clear cornea, normal eyel ids/periorb. ENT: moist mucosal membranes, normal dentition, normal nose Neck: full range of motion, non-tender, no JVD, no masses or swelling Cardiovascular: normal capillary refill, normal heart sounds, regular rate and rhythm Respiratory: aerating well, clear to auscultatio n, symmetric expansion Abdomen: obese, soft, non-tender, normal bowel s ounds Genitourinary: urinary catheter Extremities: moves all, no cyanosis, no edema Musculoskeletal normal inspection 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, disoriented, n o motor deficits, no sensory deficits Skin: dry, intact Psychiatry: unable to evaluate Results Findings/data: Laboratory Tests 10/12 06 Blood Gas Puncture Site R Radial O2 Saturation (90 - 100 %) 95.2 ABG pH (7.35 - 7.45) 7.415 ABG pCO2 (35.0 - 45 mmHg) 37.0 ABG pO2 (80 - 100.0 mmHg) 75.3 L ABG PO2/FiO2 Ratio (mm/Hg) 251.00 ABG HCO3 (22.0 - 26.0 MMOL/L) 23.7 ABG Total CO2 24.8 ABG Base Excess (-4.0 - 4.0 MMOL/L) -0.9 Sintia Test Positive O2 Delivery Device Adult Vent Vent Mode AC Vent Rate (/MIN) 18 FiO2 (%) 30 Tidal Volume (ml) 500 PEEP (cmH2O) 5 Laboratory Tests 10/12 10/12 10/12 10/11 10/11 0450 0437 0044 2105 1839 Chemistry Sodium (134 - 147 mEq/L) 138 Potassium (3.4 - 5.0 mEq/L) 3.8 Chloride (100 - 108 mEq/L) 106 Carbon Dioxide (21 - 33 mEq/l) 25 Anion Gap (0 - 20) 11 BUN (7 - 18 mg/dL) 54 H Creatinine (0.6 - 1.3 mg/dL) 4.6 H Glomerular Filtr Rate (95 - 105) 12.8 L Glucose (70 - 110 mg/dL) 88 POC Glucose (70 - 110 MG/DL) 90 99 100 98 Calcium (8.0 - 10.5 mg/dL) 8.3 Ionized Calcium Jay (1.12 - 1.32 MMOL/L) 1.17 Phosphorus (2.5 - 4.9 MG/DL) 2.5 Magnesium (1.80 - 2.40 mg/dL) 2.53 H Total Bilirubin (0.0 - 1.0 mg/dL) 0.30 AST (15 - 37 IUnit/L) 24 ALT (30 - 65 IUnit/L) 11 L Total Alk Phosphatase (20 - 125 IUnit/L) 117 Total Protein (6.4 - 8.2 g/dL) 6.0 L Albumin (3.4 - 5.0 g/dL) 2.50 L 10/11 10/11 10/11 10/11 10/11 1755 1641 1453 1359 1314 Chemistry POC Glucose (70 - 110 MG/DL) 115 H 109 109 115 H 113 H 10/11 10/11 10/11 10/11 1210 1048 0955 0909 Chemistry POC Glucose (70 - 110 MG/DL) 132 H 143 H 133 H 128 H Laboratory Tests 10/12 0450 Hematology WBC (4.5 - 11.0 x10 3/uL) 12.3 H RBC (3.54 - 5.02 x10 6/uL) 2.84 L Hgb (11.0 - 15.0 g/dL) 7.4 L Hct (33.0 - 45.0 %) 22.3 L MCV (81.0 - 99.0 fL) 78.5 L MCH (27.0 - 33.0 pg) 26.1 L MCHC (33.0 - 37.0 g/dL) 33.2 RDW (11.5 - 14.5 %) 14.6 H Plt Count (150 - 400 x10 3/uL) 199 MPV (7.0 - 9.0 fL) 12.0 H Neut % (Auto) (56.0 - 77.0 %) 49.4 L Lymph % (Auto) (14.0 - 32.0 %) 37.5 H [place] % (Auto) (4.8 - 9.0 %) 12.2 H Eos % (Auto) (0.3 - 3.7 %) 0.1 L Baso % (Auto) (0.0 - 2.0 %) 0.2 Neut # (Auto) (2.0 - 7.6 x10 3/uL) 6.10 Lymph # (Auto) (1.0 - 3.8 x10 3/uL) 4.63 H [place] # (Auto) (0.1 - 0.8 x10 3/uL) 1.50 H Eos # (Auto) (0.0 - 0.2 x10 3/uL) 0.01 Baso # (Auto) (0.0 - 0.2 x10 3/uL) 0.03 Abs Immat Gran (auto) (0.00 - 0.03 x10 3/uL) 0. 07 H Add Manual Diff NO Immature Gran % (0.0 - 2.0 %) 0.6 Nucleated RBC % (0 - 0 %) 0.2 H Nucleated RBCs # (Man) (0.0 - 0.1 x10 3/uL) 0.0 2 Laboratory Tests 10/12 0640 Urines Ur Random Creatinine (mg/dL) 113.5 Ur Random Sodium (MEQ/L) 39 Laboratory Tests 10/12/21 0450: [Embedded Image Not Available] Microbiology: 10/11 857 BLOOD: Blood Culture - RECD 10/11 08 BLOOD: Blood Culture - RECD 10/10 1755 URINE: Urine Culture - RES 10/10 1745 FOOT: Wound Culture - RES GRAM NEGATIVE MAX 10/10 0000 NASAL: MRSA DNA Surveillance Screen - COMP Radiology data Recent Impressions: CAT SCAN - CT ABD PELVIS W/O CONT 10/11 1300 Report Impression - Status: SIGNED Entered: 10/11/2021 1633 IMPRESSION: 1. No small-bowel obstruction. 2. Small bilateral basilar pleural effusions. 3. No acute abnormality in the abdomen or pelvis . Impression By: Scott Boston M.D. CAT SCAN - CT HEAD/BRAIN W/O CONT 10/11 1515 Report Impression - Status: SIGNED Entered: 10/11/2021 1625 IMPRESSION: No acute intracranial abnormality. No change as compared to a study dated 10/08/2021. Impression By: Virgil Lopez RADIOLOGY - XR CHEST 1 V 10/11 1633 Report Impression - Status: SIGNED Entered: 10/11/2021 1634 IMPRESSION: 1. Support devices are stable in position. 2. Ill-defined bibasilar infiltrates and diminis hed lung volumes. Findings may reflect atelectasis, aspiration or pneumonia. Impression By: Melody Pack M.D. RADIOLOGY - XR CHEST 1 V 10/12 0623 Report Impression - Status: SIGNED Entered: 10/12/2021 0710 IMPRESSION: Essentially stable exam. Mid and lower lung zone pulmonary opacities. Edema and pneumonia in the differenti al. Impression By: Bryanna Mares M.D. Results: labs reviewed, vital signs reviewed, vi viv signs stable, rhythm personally rev'd, x-ray personally reviewed, addis levinet med profile rev'd Diagnosis, Assessment Plan Problem list/A P: 1. DKA (diabetic ketoacidosis) 2. Respiratory failure 3. COVID 4. JAYLEEN (acute kidney injury) 5. Hyperkalemia 6. Severe sepsis 7. Metabolic encephalopathy Free text A P: Neuro: *agitation, anxiety - propofol, fent. ho ld sedatives as tolerated for accurate neuro check *metabolic encephalopathy - Hold sedative as phoebe erated. monitor neuro checks q4h. reverse metabolic derrangments. -CTH on admission negative for any intracranial abnormality -f/u CTH 10/11 shows no change -EEG pending CV: *hypotension - resolved off dopamine Pulm/airway: *acute respiratory failure, dependence on mechanical ventilation - currently on cmv 18/500/5/30 daily SAT/SB T. opens eyes briskly but does not FC. Consider SBT once more awake. ABG stable. GI: cont tf/ bowel regimen Renal: *JAYLEEN vs JAYLEEN on CKD secondary to DKA/hypovolemia/ ATN: cont IVF. avoid nephrotoxins. Monitor I O. hypervolemic, oliguri c * Nephrology following Heme: *microcytic anemia - downtrending, trend HH Q6h. ID: *Alpha strep bacteremia - 7 day course of ancef *covid: no current need for steriods or RDV * ID following Endo: *uncontrolled DM, DKA - DKA and GAP resolved; cont low SSI + 36 units of lantus BID. glucose so far controlled. PPX DVT: hep sq GI px: famotidine Dispo: cont ICU I have spent 35 minutes crit ical care time assessing, reviewing labs and imaging and discussing plan of care with the critical ca re weight inspector. Plan discussed with: lg dickerson MD, consultants, nurse, interdisc care team, pharmacy/pharmacist Critical care time: Minutes: 35 Quality: Gen Med Crit Care VTE Prophylaxis VTE prophylaxis initiated: yes Electronically Signed by Ira Salazar BIG DATA SOFTWARE ENGINEER on 0 10/12/21 at 1407 RPT #:[id number] END OF REPORT 2021-10-11 20:26:00-00:00 [facility] Endocrinology Progress Note REPORT#:[id number] REPORT STATUS: Signed DATE:10/11/21 TIME: 2025 PATIENT: HARLEEN MANZANO UNIT #: [id number] [address] : 80 AGE: 40 SEX: F ATTEND: Laura Trinh ADM AUTHOR: Gino Hernandez * ALL edits or amendments must be made on the [email or web address]/computer document * Subjective Chief complaint: f/u DM I on TF insulin gtt off Objective General VS: Last Documented: Result Date Time Pulse Ox 100 10/12 1943 FiO2 30 10/11 194 Pulse 99 / 1944 B/P 110/70 / 1600 B/P Mean 83 / 1600 O2 Delivery Ventilator 10/11 1600 O2 Flow Rate 15.0 / 1600 Temp 97.9 10/11 1600 Resp 17 10/11 1600 PATIENT WEIGHT: Weight (lb): 402 Weight (oz): 1.97 Weight (kg): 182.400 Medications: Active Meds + DC'd Last 24 Hrs Insulin Human Lispro (HUMALOG) 0 Q4H SUBQ Cefazolin Sodium (KEFZOL OR ANCEF) 1 GM Q12H IV Sodium Chloride (SODIUM CHLORIDE) 10 ML Ceftriaxone Sodium (ROCEPHIN 1000MG VIAL) 2,000 MG Q24H IV (DC) Sodium Chloride (SODIUM CHLORIDE) 10 ML Insulin Glargine (Lantus/Semglee) 36 UNIT BID BLANKENSHIP BQ Vancomycin HCl (VANCOMYCIN HCL) 3,000 MG ONCE ON E IV (DC) Sodium Chloride (NS 0.9%) 500 ML Miscellaneous Information (VANCOMYCIN PHARMACY T O DOSE) 1 EACH ASDIR IV (DC) Dopamine HCl/Dextrose (DOPamine 400MG/D5W 250ML) 250 ML ASDIR IV (DC) Insulin Glargine (Lantus/Semglee) 25 UNIT BID BLANKENSHIP BQ (DC) Heparin Sodium (HEPARIN 5000 UNITS/ML) 5,000 UNI T Q8H SUBQ Lactated Ringer's (LACTATED RINGERS) 1,000 ML .Q 10H IV Propofol (DIPRIVAN 1,000MG/100ML) 100 ML TITRATE IV (CKD) Lactated Ringer's (LACTATED RINGERS) 1,000 ML DIAZ EVANGELINA IV Famotidine (PEPCID) 20 MG Q12HR IV Fentanyl Citrate (Fentanyl 2,500MCG/NS 250ML) 25 0 ML ASDIR IV (CKD) Mupirocin (BACTROBAN 2% 22 GM OINTMENT) 1 APPLIC BID NASAL Dextrose/Water (DEXTROSE 50% W SYRINGE) 50 ML DIR PRN IV (CKD) Dextrose/Water (Dextrose 10% W) 1,000 ML ASDIR I V Insulin Human Regular (HumuLIN R) 100 UNIT ASDIR IV (DC) Sodium Chloride (SODIUM CHLORIDE 0.9%) 99 ML Magnesium Sulfate (MAGNESIUM SULFATE 2GM/SWFI 50 ML) 50 ML ASDIR PRN IV Magnesium Sulfate (MAGNESIUM SULFATE 4GM/SWFI 10 0ML) 100 ML ASDIR PRN IV Potassium Chloride (POTASSIUM CHLORIDE 20MEQ TAB .ER) 20 MEQ ASDIR PRN PO Potassium Chloride (POTASSIUM CHLORIDE 20MEQ TAB .ER) 40 MEQ ASDIR PRN PO Potassium Chloride (POTASSIUM CHLORIDE 20MEQ TAB .ER) 60 MEQ ASDIR PRN PO (CKD) Potassium Chloride (KCL 20MEQ/SWFI 100ML) 100 ML ASDIR PRN IV Potassium Phosphate (POTASSIUM PHOSPHATE) 15 MM ASDIR PRN IV Sodium Chloride (SODIUM CHLORIDE 0.9%) 250 ML Nutrition assessment: The data set between the solid lines has been im ported from the dietitian's assessment. Any exceptions have been noted under Provider comments. BMI Calculated: 59.4 Nutrition related diagnosis: Morbid obesity Nutrition diagnosis details: BMI 40 or more Nutrition problem: Inadequate energy intake Nutrition etiology: Ventilator dependent Nutrition signs and symptoms: +OGT REQUIRING TF TO MEET, NEEDS Nutrition prescription: TURNER L HP @ 65 ML/HR; FWF @ 30 ML Q4H PROVIDES 1560 KCAL , 137 G PRO, 1484 ML FREE H2O TF+PROPOFOL PROVID ES 1824 KCAL/D MEETS 100% OF ESTIMATED NEEDS Dietitian name: Travis Soriano, DIET Assessment completed: 10/09/21 Provider comments on imported dietitian assessme nt: Physical Exam General appearance: altered mental status HEENT: normocephalic Cardiovascular: regular rate rhythm Respiratory: intubated Genitourinary: not indicated Musculoskeletal: normal inspection 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 Findings/data: Laboratory Tests: 10/11 10/11 10/11 10/11 10/11 1641 1453 1359 1314 1210 Chemistry POC Glucose (70 - 110 MG/DL) 109 109 115 H 113 H 132 H 10/11 10/11 10/11 10/11 10/11 1048 0955 0909 0800 0500 Chemistry Sodium (134 - 147 mEq/L) 140 Potassium (3.4 - 5.0 mEq/L) 3.2 L Chloride (100 - 108 mEq/L) 106 Carbon Dioxide (21 - 33 mEq/l) 24 Anion Gap (0 - 20) 14 BUN (7 - 18 mg/dL) 49 H Creatinine (0.6 - 1.3 mg/dL) 3.9 H Glomerular Filtr Rate (95 - 105) 15.4 L Glucose (70 - 110 mg/dL) 174 H POC Glucose (70 - 110 MG/DL) 143 H 133 H 128 H 142 H Calcium (8.0 - 10.5 mg/dL) 7.9 L Phosphorus (2.5 - 4.9 MG/DL) 1.8 L Magnesium (1.80 - 2.40 mg/dL) 2.73 H Lipase (13 - 57 U/L) 45 TSH (0.42 - 5.47) 0.03 L Free T4 (0.77 - 1.61 ng/dL) 1.0 10/11 10/11 10/11 10/11 0500 0334 0323 0207 Blood Gas Puncture Site R Radial O2 Saturation (90 - 100 %) 99.3 ABG pH (7.35 - 7.45) 7.397 ABG pCO2 (35.0 - 45 mmHg) 37.6 ABG pO2 (80 - 100.0 mmHg) 150.8 H ABG PO2/FiO2 Ratio (mm/Hg) 502.66 ABG HCO3 (22.0 - 26.0 MMOL/L) 23.1 ABG Total CO2 24.3 ABG Base Excess (-4.0 - 4.0 MMOL/L) -1.7 Sintia Test Positive O2 Delivery Device Adult Vent Vent Mode AC Vent Rate (/MIN) 18 FiO2 (%) 30 PEEP (cmH2O) 5 Chemistry POC Glucose (70 - 110 MG/DL) 207 H 202 H Ammonia (11 - 35 umol/L) 20 Coagulation INR (0.8 - 1.2) 1.0 PT Patient/Control Mix (9.3 - 12.9 SECONDS) 11. 6 Hematology WBC (4.5 - 11.0 x10 3/uL) 16.1 H RBC (3.54 - 5.02 x10 6/uL) 3.00 L Hgb (11.0 - 15.0 g/dL) 7.9 L Hct (33.0 - 45.0 %) 23.5 L MCV (81.0 - 99.0 fL) 78.3 L MCH (27.0 - 33.0 pg) 26.3 L MCHC (33.0 - 37.0 g/dL) 33.6 RDW (11.5 - 14.5 %) 14.6 H Plt Count (150 - 400 x10 3/uL) 211 MPV (7.0 - 9.0 fL) 11.9 H Neut % (Auto) (56.0 - 77.0 %) 57.0 Lymph % (Auto) (14.0 - 32.0 %) 31.2 [place] % (Auto) (4.8 - 9.0 %) 10.4 H Eos % (Auto) (0.3 - 3.7 %) 0.1 L Baso % (Auto) (0.0 - 2.0 %) 0.2 Neut # (Auto) (2.0 - 7.6 x10 3/uL) 9.16 H Lymph # (Auto) (1.0 - 3.8 x10 3/uL) 5.02 H [place] # (Auto) (0.1 - 0.8 x10 3/uL) 1.67 H Eos # (Auto) (0.0 - 0.2 x10 3/uL) 0.01 Baso # (Auto) (0.0 - 0.2 x10 3/uL) 0.03 Abs Immat Gran (auto) (0.00 - 0.03 x10 3/uL) 0. 18 H Add Manual Diff NO Immature Gran % (0.0 - 2.0 %) 1.1 Nucleated RBC % (0 - 0 %) 0.4 H Nucleated RBCs # (Man) (0.0 - 0.1 x10 3/uL) 0.0 6 10/11 10/10 0010 2147 Chemistry POC Glucose (70 - 110 MG/DL) 237 H 254 H Microbiology: Date/Time Procedure - Status Source Growth 10/11 857 Blood Culture - RECD BLOOD 10/11 857 Blood Culture - RECD BLOOD Recent Impressions: ULTRASOUND - US RETROPERITONEAL COM 10/11 0753 Report Impression - Status: SIGNED Entered: 10/11/2021 0900 IMPRESSION: No acute sonographic finding Impression By: [email or web address] Esau Alonso. CAT SCAN - CT ABD PELVIS W/O CONT 10/11 1300 Report Impression - Status: SIGNED Entered: 10/11/2021 1633 IMPRESSION: 1. No small-bowel obstruction. 2. Small bilateral basilar pleural effusions. 3. No acute abnormality in the abdomen or pelvis . Impression By: Scott Boston M.D. CAT SCAN - CT HEAD/BRAIN W/O CONT 10/11 1515 Report Impression - Status: SIGNED Entered: 10/11/2021 1625 IMPRESSION: No acute intracranial abnormality. No change as compared to a study dated 10/08/2021. Impression By: Virgil Lopez RADIOLOGY - XR CHEST 1 V 10/11 1633 Report Impression - Status: SIGNED Entered: 10/11/2021 1634 IMPRESSION: 1. Support devices are stable in position. 2. Ill-defined bibasilar infiltrates and diminis hed lung volumes. Findings may reflect atelectasis, aspiration or pneumonia. Impression By: [email or web address] - Gunnar Pack M.D. Laboratory Tests: 10/11 10/11 10/11 10/11 10/11 1641 1453 1359 1314 1210 Chemistry POC Glucose (70 - 110 MG/DL) 109 109 115 H 113 H 132 H 10/11 10/11 10/11 10/11 10/11 1048 0955 0909 0800 0500 Chemistry Sodium (134 - 147 mEq/L) 140 Potassium (3.4 - 5.0 mEq/L) 3.2 L Chloride (100 - 108 mEq/L) 106 Carbon Dioxide (21 - 33 mEq/l) 24 Anion Gap (0 - 20) 14 BUN (7 - 18 mg/dL) 49 H Creatinine (0.6 - 1.3 mg/dL) 3.9 H Glomerular Filtr Rate (95 - 105) 15.4 L Glucose (70 - 110 mg/dL) 174 H POC Glucose (70 - 110 MG/DL) 143 H 133 H 128 H 142 H Calcium (8.0 - 10.5 mg/dL) 7.9 L Phosphorus (2.5 - 4.9 MG/DL) 1.8 L Magnesium (1.80 - 2.40 mg/dL) 2.73 H Lipase (13 - 57 U/L) 45 TSH (0.42 - 5.47) 0.03 L Free T4 (0.77 - 1.61 ng/dL) 1.0 10/11 10/11 10/11 10/11 0500 0334 0323 0207 Blood Gas Puncture Site R Radial O2 Saturation (90 - 100 %) 99.3 ABG pH (7.35 - 7.45) 7.397 ABG pCO2 (35.0 - 45 mmHg) 37.6 ABG pO2 (80 - 100.0 mmHg) 150.8 H ABG PO2/FiO2 Ratio (mm/Hg) 502.66 ABG HCO3 (22.0 - 26.0 MMOL/L) 23.1 ABG Total CO2 24.3 ABG Base Excess (-4.0 - 4.0 MMOL/L) -1.7 Sintia Test Positive O2 Delivery Device Adult Vent Vent Mode AC Vent Rate (/MIN) 18 FiO2 (%) 30 PEEP (cmH2O) 5 Chemistry POC Glucose (70 - 110 MG/DL) 207 H 202 H Ammonia (11 - 35 umol/L) 20 Coagulation INR (0.8 - 1.2) 1.0 PT Patient/Control Mix (9.3 - 12.9 SECONDS) 11. 6 Hematology WBC (4.5 - 11.0 x10 3/uL) 16.1 H RBC (3.54 - 5.02 x10 6/uL) 3.00 L Hgb (11.0 - 15.0 g/dL) 7.9 L Hct (33.0 - 45.0 %) 23.5 L MCV (81.0 - 99.0 fL) 78.3 L MCH (27.0 - 33.0 pg) 26.3 L MCHC (33.0 - 37.0 g/dL) 33.6 RDW (11.5 - 14.5 %) 14.6 H Plt Count (150 - 400 x10 3/uL) 211 MPV (7.0 - 9.0 fL) 11.9 H Neut % (Auto) (56.0 - 77.0 %) 57.0 Lymph % (Auto) (14.0 - 32.0 %) 31.2 [place] % (Auto) (4.8 - 9.0 %) 10.4 H Eos % (Auto) (0.3 - 3.7 %) 0.1 L Baso % (Auto) (0.0 - 2.0 %) 0.2 Neut # (Auto) (2.0 - 7.6 x10 3/uL) 9.16 H Lymph # (Auto) (1.0 - 3.8 x10 3/uL) 5.02 H [place] # (Auto) (0.1 - 0.8 x10 3/uL) 1.67 H Eos # (Auto) (0.0 - 0.2 x10 3/uL) 0.01 Baso # (Auto) (0.0 - 0.2 x10 3/uL) 0.03 Abs Immat Gran (auto) (0.00 - 0.03 x10 3/uL) 0. 18 H Add Manual Diff NO Immature Gran % (0.0 - 2.0 %) 1.1 Nucleated RBC % (0 - 0 %) 0.4 H Nucleated RBCs # (Man) (0.0 - 0.1 x10 3/uL) 0.0 6 10/11 10/10 0010 2147 Chemistry POC Glucose (70 - 110 MG/DL) 237 H 254 H Microbiology: Date/Time Procedure - Status Source Growth 10/11 857 Blood Culture - RECD BLOOD 07/03 0858 Blood Culture - RECD BLOOD Recent Impressions: ULTRASOUND - US RETROPERITONEAL COM 10/11 0753 Report Impression - Status: SIGNED Entered: 10/11/2021 0900 IMPRESSION: No acute sonographic finding Impression By: [email or web address] - Esau Gary. CAT SCAN - CT ABD PELVIS W/O CONT 10/11 1300 Report Impression - Status: SIGNED Entered: 10/11/2021 1633 IMPRESSION: 1. No small-bowel obstruction. 2. Small bilateral basilar pleural effusions. 3. No acute abnormality in the abdomen or pelvis . Impression By: KhaiAWG Misa Boston M.D. CAT SCAN - CT HEAD/BRAIN W/O CONT 10/11 1515 Report Impression - Status: SIGNED Entered: 10/11/2021 1625 IMPRESSION: No acute intracranial abnormality. No change as compared to a study dated 10/08/2021. Impression By: Virgil Lopez RADIOLOGY - XR CHEST 1 V 10/11 1633 Report Impression - Status: SIGNED Entered: 10/11/2021 1634 IMPRESSION: 1. Support devices are stable in position. 2. Ill-defined bibasilar infiltrates and diminis hed lung volumes. Findings may reflect atelectasis, aspiration or pneumonia. Impression By: [email or web address] - Gunnar Pack M.D. Diagnosis, Assessment Plan Free Text A P: 1.DM I in DKA HgbA1c >14 adjust lantus on TF monitor glucose 2.Abnormal thyroid function recheck TSH post decadron 3.Acute respiratory failure intubated 4.Altered mental status 5.JAYLEEN with worsening renal function nephrology following 6.COVID-19 7.Bacteremia with alpha Streptococcus species on abx 8.Wounds present to L + R foot debridement on abx Podiatry following at 1338 Electronically Signed by Darvin Mooney MD on 0 10/17/21 at 1228 RPT #:[id number] END OF REPORT 2021-10-11 19:59:00-00:00 [facility] ([facility] Nephrology Consultation Note REPORT#:[id number] REPORT STATUS: Signed DATE:10/11/21 TIME: 1958 PATIENT: HARLEEN MANZANO UNIT #: [id number] ROOM/BED: [facility]28-1 : 80 AGE: 40 SEX: F ATTEND: Laura Trinh ADM AUTHOR: Gabriela Higginbotham MD * ALL edits or amendments must be made on the [email or web address]/computer document * History of Present Illness Requesting clinician: Dr. Trinh Reason for consult: Elevated serum Cr Fluid, electrolyte, and acid/base management Chief complaint: AMS PCP: PCP: No Primary or Family Physician HPI: Patient is a 40 years old female who was admitted to [facility] ED for AMS, DKA, resp failure, JAYLEEN, COVID-19. She is currently in ICU, intubated and on vent. On IVF. Off Dopamine and Insulin drips. Nurse at [facility]. Serum Cr at 3.9 BUN 49. As pt is intubated and on vent, unable to pr ovide any history or ROS. History - Adult longitudinal Past medical history: Reports: Diabetes mellitus. Additional medical history: anemia Additional surgical history: right hip Smoking status: Smoking status for patients 13 years old or old er: Unknown,if ever smoked Allergies: Coded Allergies: Sulfa (Sulfonamide Antibiotics) (Mild, HIVES ) Review of Systems Unable to obtain due to: as pt on vent Objective General VS/I O: Vital Signs: Date Time Temp Pulse Resp B/P B/P Pulse O2 O2 F low FiO2 Mean Ox Delivery Rate 10/11 1944 99 100 30 07/03 1616 97 100 30 07/03 1600 36.6 99 17 110/70 83 100 Ventilator 15.0 30 07/03 1200 36.7 90 18 78/48 58 07/03 0800 36.7 99 18 103/55 71 100 Ventilator 15.0 30 07/03 0753 92 100 30 07/03 0400 36.7 Ventilator 30 07/ 0238 86 100 35 07/03 0151 100 07/ 0145 17 07/03 0145 88 07/03 0145 36.8 07/03 0145 72 07/03 0145 99/55 07/03 0145 100 07/03 0130 18 07/03 0130 88 07/03 0130 36.7 07/03 0130 76 07/03 0130 100/59 07/03 0130 100 07/03 0115 18 07/03 0115 87 07/03 0115 36.6 07/03 0115 73 07/03 0115 100/55 07/03 0115 100 07/03 0100 18 07/03 0100 85 07/03 0100 36.5 07/03 0100 77 07/03 0100 103/59 07/03 0100 100 07/03 0045 18 07/03 0045 88 07/03 0045 36.4 07/03 0045 75 07/03 0045 107/55 07/03 0045 100 07/03 0030 18 07/03 0030 90 07/03 0030 36.3 07/03 0030 77 07/03 0030 110/58 07/03 0030 100 07/03 0015 17 07/03 0015 100 07/03 0015 36.4 07/03 0015 86 07/03 0015 118/66 07/03 0015 100 07/03 0000 16 07/03 0000 105 07/03 0000 36.4 07/03 0000 36.5 Ventilator 30 07/03 0000 89 07/03 0000 123/68 07/03 0000 100 07/02 2345 28 07/02 2345 106 07/02 2345 36.3 07/02 2345 86 07/02 2345 117/70 07/02 2345 99 07/02 2330 18 07/02 2330 94 07/02 2330 36.5 07/02 2330 81 07/02 2330 111/59 07/02 2330 100 07/02 2315 18 07/02 2315 91 07/02 2315 36.5 07/02 2315 75 07/02 2315 109/55 07/02 2315 100 07/02 2300 18 07/02 2300 90 07/02 2300 36.5 07/02 2300 75 07/02 2300 108/55 07/02 2300 100 07/02 2245 18 07/02 2245 90 07/02 2245 36.5 07/02 2245 75 07/02 2245 108/55 07/02 2245 100 07/02 2230 18 07/02 2230 90 07/02 2230 36.6 07/02 2230 80 07/02 2230 108/58 07/02 2230 100 07/02 2227 92 100 335 07/02 2215 18 07/02 2215 92 07/02 2215 36.6 07/02 2215 76 07/02 2215 111/56 07/02 2215 100 07/02 2200 18 07/02 2200 95 07/02 2200 36.6 07/02 2200 79 07/02 2200 114/57 07/02 2200 100 07/02 2145 18 07/02 2145 96 07/02 2145 36.6 07/02 2145 79 07/02 2145 113/58 07/02 2145 100 07/02 2130 18 07/02 2130 90 07/02 2130 36.6 07/02 2130 79 07/02 2130 109/57 07/02 2130 100 07/02 2115 18 07/02 2115 100 07/02 2115 36.7 07/02 2115 85 07/02 2115 120/63 07/02 2115 100 07/02 2100 18 07/02 2100 90 07/02 2100 36.7 07/02 2100 80 07/02 2100 108/59 07/02 2100 100 07/02 2045 18 07/02 2045 91 07/02 2045 36.7 07/02 2045 79 07/02 2045 109/58 07/02 2045 98 07/02 2030 17 07/02 2030 93 07/02 2030 36.8 07/02 2030 80 07/02 2030 107/57 07/02 2030 99 07/02 2014 16 072014 98 07/02 2014 36.8 07/02 2015 83 07/02 2015 116/58 07/02 2014 99 07/02 1999 15 071999 104 07/02 1999 36.7 07/02 1999 Ventilator 30 07/02 1999 89 07/02 1999 129/62 07/02 2000 100 24 hour I O ending at 0700: 07/03 0700 07/02 1900 Intake Total 2456.00 2676.00 Output Total 705 175 Balance 1751.00 2501.00 Intake, Free 50 30 Water Intake, IV 2299.00 2473.00 Intake, Oral 0 Intake, Tube 107 173 Feeding Number 0 Bowel Movements Output, 450 Gastric Drainage Output, Urine 255 175 Patient 177.9 kg Weight Weight Bed scale Measurement Method PATIENT WEIGHT: Weight (lb): 402 Weight (oz): 1.97 Weight (kg): 182.400 Medications: Active Meds + DC'd Last 24 Hrs Insulin Human Lispro (HUMALOG) 0 Q4H SUBQ Cefazolin Sodium (KEFZOL OR ANCEF) 1 GM Q12H IV Sodium Chloride (SODIUM CHLORIDE) 10 ML Ceftriaxone Sodium (ROCEPHIN 1000MG VIAL) 2,000 MG Q24H IV (DC) Sodium Chloride (SODIUM CHLORIDE) 10 ML Insulin Glargine (Lantus/Semglee) 36 UNIT BID BLANKENSHIP BQ Vancomycin HCl (VANCOMYCIN HCL) 3,000 MG ONCE ON E IV (DC) Sodium Chloride (NS 0.9%) 500 ML Miscellaneous Information (VANCOMYCIN PHARMACY T O DOSE) 1 EACH ASDIR IV (DC) Dopamine HCl/Dextrose (DOPamine 400MG/D5W 250ML) 250 ML ASDIR IV (DC) Insulin Glargine (Lantus/Semglee) 25 UNIT BID BLANKENSHIP BQ (DC) Heparin Sodium (HEPARIN 5000 UNITS/ML) 5,000 UNI T Q8H SUBQ Lactated Ringer's (LACTATED RINGERS) 1,000 ML .Q 10H IV Propofol (DIPRIVAN 1,000MG/100ML) 100 ML TITRATE IV (CKD) Lactated Ringer's (LACTATED RINGERS) 1,000 ML DIAZ EVANGELINA IV Famotidine (PEPCID) 20 MG Q12HR IV Fentanyl Citrate (Fentanyl 2,500MCG/NS 250ML) 25 0 ML ASDIR IV (CKD) Mupirocin (BACTROBAN 2% 22 GM OINTMENT) 1 APPLIC BID NASAL Dextrose/Water (DEXTROSE 50% W SYRINGE) 50 ML DIR PRN IV (CKD) Dextrose/Water (Dextrose 10% W) 1,000 ML ASDIR I V Insulin Human Regular (HumuLIN R) 100 UNIT ASDIR IV (DC) Sodium Chloride (SODIUM CHLORIDE 0.9%) 99 ML Magnesium Sulfate (MAGNESIUM SULFATE 2GM/SWFI 50 ML) 50 ML ASDIR PRN IV Magnesium Sulfate (MAGNESIUM SULFATE 4GM/SWFI 10 0ML) 100 ML ASDIR PRN IV Potassium Chloride (POTASSIUM CHLORIDE 20MEQ TAB .ER) 20 MEQ ASDIR PRN PO Potassium Chloride (POTASSIUM CHLORIDE 20MEQ TAB .ER) 40 MEQ ASDIR PRN PO Potassium Chloride (POTASSIUM CHLORIDE 20MEQ TAB .ER) 60 MEQ ASDIR PRN PO (CKD) Potassium Chloride (KCL 20MEQ/SWFI 100ML) 100 ML ASDIR PRN IV Potassium Phosphate (POTASSIUM PHOSPHATE) 15 MM ASDIR PRN IV Sodium Chloride (SODIUM CHLORIDE 0.9%) 250 ML Physical Exam General appearance: intubated and on vent Head/eyes: atraumatic ENT: ET tube Cardiovascular: deferred due to COVID-19 isolati on Respiratory: deferred due to COVID-19 isolation Abdomen: deferred due to COVID-19 isolation Genitourinary: urinary catheter Extremities: trace edema Neuro/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 OPERATOR: on vent Psychiatry: unable to evaluate Results Findings/Data: Laboratory Tests 10/11 0334 Blood Gas Puncture Site R Radial O2 Saturation (90 - 100 %) 99.3 ABG pH (7.35 - 7.45) 7.397 ABG pCO2 (35.0 - 45 mmHg) 37.6 ABG pO2 (80 - 100.0 mmHg) 150.8 H ABG PO2/FiO2 Ratio (mm/Hg) 502.66 ABG HCO3 (22.0 - 26.0 MMOL/L) 23.1 ABG Total CO2 24.3 ABG Base Excess (-4.0 - 4.0 MMOL/L) -1.7 Sintia Test Positive O2 Delivery Device Adult Vent Vent Mode AC Vent Rate (/MIN) 18 FiO2 (%) 30 PEEP (cmH2O) 5 Laboratory Tests 10/11 10/11 10/11 10/11 10/11 1641 1453 1359 1314 1210 Chemistry POC Glucose (70 - 110 MG/DL) 109 109 115 H 113 H 132 H 10/11 10/11 10/11 10/11 10/11 1048 0955 0909 0800 0500 Chemistry Sodium (134 - 147 mEq/L) 140 Potassium (3.4 - 5.0 mEq/L) 3.2 L Chloride (100 - 108 mEq/L) 106 Carbon Dioxide (21 - 33 mEq/l) 24 Anion Gap (0 - 20) 14 BUN (7 - 18 mg/dL) 49 H Creatinine (0.6 - 1.3 mg/dL) 3.9 H Glomerular Filtr Rate (95 - 105) 15.4 L Glucose (70 - 110 mg/dL) 174 H POC Glucose (70 - 110 MG/DL) 143 H 133 H 128 H 142 H Calcium (8.0 - 10.5 mg/dL) 7.9 L Phosphorus (2.5 - 4.9 MG/DL) 1.8 L Magnesium (1.80 - 2.40 mg/dL) 2.73 H Lipase (13 - 57 U/L) 45 TSH (0.42 - 5.47) 0.03 L Free T4 (0.77 - 1.61 ng/dL) 1.0 10/11 10/11 10/11 10/11 10/10 0500 0323 0207 0010 2147 Chemistry POC Glucose (70 - 110 MG/DL) 207 H 202 H 237 H 254 H Ammonia (11 - 35 umol/L) 20 10/10 2008 Chemistry POC Glucose (70 - 110 MG/DL) 260 H Laboratory Tests 10/11 0500 Coagulation INR (0.8 - 1.2) 1.0 PT Patient/Control Mix (9.3 - 12.9 SECONDS) 11. 6 Laboratory Tests 10/11 0500 Hematology WBC (4.5 - 11.0 x10 3/uL) 16.1 H RBC (3.54 - 5.02 x10 6/uL) 3.00 L Hgb (11.0 - 15.0 g/dL) 7.9 L Hct (33.0 - 45.0 %) 23.5 L MCV (81.0 - 99.0 fL) 78.3 L MCH (27.0 - 33.0 pg) 26.3 L MCHC (33.0 - 37.0 g/dL) 33.6 RDW (11.5 - 14.5 %) 14.6 H Plt Count (150 - 400 x10 3/uL) 211 MPV (7.0 - 9.0 fL) 11.9 H Neut % (Auto) (56.0 - 77.0 %) 57.0 Lymph % (Auto) (14.0 - 32.0 %) 31.2 [place] % (Auto) (4.8 - 9.0 %) 10.4 H Eos % (Auto) (0.3 - 3.7 %) 0.1 L Baso % (Auto) (0.0 - 2.0 %) 0.2 Neut # (Auto) (2.0 - 7.6 x10 3/uL) 9.16 H Lymph # (Auto) (1.0 - 3.8 x10 3/uL) 5.02 H [place] # (Auto) (0.1 - 0.8 x10 3/uL) 1.67 H Eos # (Auto) (0.0 - 0.2 x10 3/uL) 0.01 Baso # (Auto) (0.0 - 0.2 x10 3/uL) 0.03 Abs Immat Gran (auto) (0.00 - 0.03 x10 3/uL) 0. 18 H Add Manual Diff NO Immature Gran % (0.0 - 2.0 %) 1.1 Nucleated RBC % (0 - 0 %) 0.4 H Nucleated RBCs # (Man) (0.0 - 0.1 x10 3/uL) 0.0 6 Radiology data: Recent Impressions: ULTRASOUND - US RETROPERITONEAL COM 10/11 0753 Report Impression - Status: SIGNED Entered: 10/11/2021 0900 IMPRESSION: No acute sonographic finding Impression By: [email or web address] Esau Alonso. CAT SCAN - CT ABD PELVIS W/O CONT 10/11 1300 Report Impression - Status: SIGNED Entered: 10/11/2021 1633 IMPRESSION: 1. No small-bowel obstruction. 2. Small bilateral basilar pleural effusions. 3. No acute abnormality in the abdomen or pelvis . Impression By: Scott Boston M.D. CAT SCAN - CT HEAD/BRAIN W/O CONT 10/11 1515 Report Impression - Status: SIGNED Entered: 10/11/2021 1625 IMPRESSION: No acute intracranial abnormality. No change as compared to a study dated 10/08/2021. Impression By: Virgil Lopez RADIOLOGY - XR CHEST 1 V 10/11 1633 Report Impression - Status: SIGNED Entered: 10/11/2021 1634 IMPRESSION: 1. Support devices are stable in position. 2. Ill-defined bibasilar infiltrates and diminis hed lung volumes. Findings may reflect atelectasis, aspiration or pneumonia. Impression By: Melody Pack M.D. Diagnosis, Assessment Plan Free Text DxA P Notes Free text DxA P notes: A: ? JAYLEEN vs JAYLEEN on CKD. Hypokalemia. S/p DKA. Hypophosphatemia. Uncontrolled DM. Resp failure. Anemia. Morbid obesity. + COVID-19. P: ? JAYLEEN vs JAYLEEN on CKD likely 2 ' to ATN. No hydro on renal U/S. Continue IVF. Will monitor renal indices and UOP. No acute indicati on for HD today. Will check urine sodium urine Cr levels. Replete K Phos. Monitor serum lytes, and serum C a/Phos/Mag levels. Acidosis - improved. Monitor serum HCO3. Vent per pulm. Renally dose all meds. Plan d/w pt's nurse. Thanks for the consult. Will follow pt with you. at 1635 RPT #:[id number] END OF REPORT 2021-10-11 13:25:00-00:00 [facility] Critical Care Progress Note REPORT#:[id number] REPORT STATUS: Signed DATE:10/11/21 TIME: 1325 PATIENT: HRALEEN MANZANO UNIT #: [id number] ROOM/BED: [place] [id number] : 80 AGE: 40 SEX: F ATTEND: Laura Trinh ADM AUTHOR: Kermit Casas MD * ALL edits or amendments must be made on the [email or web address]/computer document * Subjective HPI: 40 year old female with history of DM, obesity w ho presented 10/08 found down. She was found to have DKA and was incidental fnd ing of covid. Bacterial cultures were positive for step sp. Diagnosis, Assessment Plan Free text A P: 24 hr events: continued encephalopathy PE: intubated, unresponsive, kevin gs are clear to auscultation, heart is regular rate and rhythm, abdomen is soft AP: Neuro: *agitation, anxiety - propofol, fent *metabolic encephalopathy - minimize sedatives, check head CT, EEG CV: *hypotension - currently on renal dose dopamine, wean off as tolerated Pulm/airway: *acute respiratory failure, dependence on mechanical ventilation - currently on cmv 500/5/30 due to encephalopathy; cont full vent support pending improvement in encephalopathy GI: Renal: *acute renal failure - nephro consulted Heme: *anemia - no transfusion required at this time, cont trend hh ID: *bacteremia - cont abx per ID *covid - ID following Endo: *DM, DKA - DKA and GAP resolved; currently on in sulin infusion, wean off as tolerated MSK: Nutr: cont TF DVT px: hep sq GI px: famotidine Bowel regimen: Dispo: cont ICU I have seen and examined the patient and spent 3 8 min of critical care time excluding time spent on procedures. Electronically Signed by Kermit Casas MD on 06/30 at 1501 RPT #:[id number] END OF REPORT 2021-10-11 12:51:00-00:00 [facility] Hospitalist Progress Note REPORT#:[id number] REPORT STATUS: Signed DATE:10/11/21 TIME: 1251 PATIENT: HARLEEN MANZANO UNIT #: [id number] ROOM/BED: [place] [id number] : 80 AGE: 40 SEX: F ATTEND: Laura Trinh MD ADM AUTHOR: Laura Trinh MD * ALL edits or amendments must be made on the [employer]/computer document * Subjective Chief complaint: Patient intubated, sedated, altered off sedation , failed CPAP trial yesterday Objective General VS/I O: Vital Signs: Date Time Temp Pulse Resp B/P B/P Pulse O2 O2 F low FiO2 Mean Ox Delivery Rate 10/11 1200 98.0 90 18 78/48 58 07/ 0800 98.1 99 18 103/55 71 100 Ventilator 15.0 30 07/ 0400 98.1 Ventilator 30 10/11 0238 86 100 35 / 0151 100 10/11 0145 17 10/11 0145 88 / 0145 98.2 07/ 0145 72 07/ 0145 99/55 07/ 0145 100 07/ 0130 18 10/11 0130 88 / 0130 98.1 10/11 0130 76 / 0130 100/59 07/03 0130 100 07/03 0115 18 07/03 0115 87 07/03 0115 97.9 07/03 0115 73 07/03 0115 100/55 07/03 0115 100 07/03 0100 18 07/03 0100 85 07/03 0100 97.7 07/03 0100 77 07/03 0100 103/59 07/03 0100 100 07/03 0045 18 07/03 0045 88 07/03 0045 97.5 07/03 0045 75 07/03 0045 107/55 07/03 0045 100 07/03 0030 18 07/03 0030 90 07/03 0030 97.3 07/03 0030 77 07/03 0030 110/58 07/03 0030 100 07/03 0015 17 07/03 0015 100 07/03 0015 97.5 07/03 0015 86 07/03 0015 118/66 07/03 0015 100 07/03 0000 16 07/03 0000 105 07/03 0000 97.5 07/03 0000 97.7 Ventilator 30 07/03 0000 89 07/03 0000 123/68 07/03 0000 100 07/02 2345 28 07/02 2345 106 07/02 2345 97.3 07/02 2345 86 07/02 2345 117/70 07/02 2345 99 07/02 2330 18 07/02 2330 94 07/02 2330 97.7 07/02 2330 81 07/02 2330 111/59 07/02 2330 100 07/02 2315 18 07/02 2315 91 07/02 2315 97.7 07/02 2315 75 07/02 2315 109/55 07/02 2315 100 07/02 2300 18 07/02 2300 90 07/02 2300 97.7 07/02 2300 75 07/02 2300 108/55 07/02 2300 100 07/02 2245 18 07/02 2245 90 07/02 2245 97.7 07/02 2245 75 07/02 2245 108/55 07/02 2245 100 07/02 2230 18 07/02 2230 90 07/02 2230 97.9 07/02 2230 80 07/02 2230 108/58 07/02 2230 100 07/02 2227 92 100 335 07/02 2215 18 07/02 2215 92 07/02 2215 97.9 07/02 2215 76 07/02 2215 111/56 07/02 2215 100 07/02 2200 18 07/02 2200 95 07/02 2200 97.9 07/02 2200 79 07/02 2200 114/57 07/02 2200 100 07/02 2145 18 07/02 2145 96 07/02 2145 97.9 07/02 2145 79 07/02 2145 113/58 07/02 2145 100 07/02 2130 18 07/02 2130 90 07/02 2130 97.9 07/02 2130 79 07/02 2130 109/57 07/02 2130 100 07/02 2115 18 07/02 2115 100 07/02 2115 98.1 07/02 2115 85 07/02 2115 120/63 07/02 2115 100 07/02 2100 18 07/02 2100 90 07/02 2100 98.1 07/02 2100 80 07/02 2100 108/59 07/02 2100 100 07/02 2045 18 07/02 2045 91 07/02 2045 98.1 07/02 2045 79 07/02 2045 109/58 07/02 2045 98 07/02 2030 17 07/02 2030 93 07/02 2030 98.2 07/02 2030 80 07/02 2030 107/57 07/02 2030 99 07/02 2014 16 07/02 2014 98 07/02 2014 98.2 07/02 2014 83 07/02 2015 116/58 07/02 2015 99 07/02 1999 15 07/02 1999 104 07/02 1999 98.1 07/02 1999 Ventilator 30 07/02 1999 89 07/02 1999 129/62 07/02 1999 100 07/02 1949 99 100 30 07/02 1945 18 07/02 1945 97 07/02 1945 133/64 07/02 1945 100 07/02 1930 18 07/02 1930 102 07/02 1930 95 07/02 1930 136/69 07/02 1930 100 07/02 1918 97.5 Ventilator 30 07/02 1915 12 07/02 1915 96 07/02 1915 98 07/02 1915 141/69 07/02 1915 100 07/02 1900 102 07/02 1900 96 07/02 1900 140/68 07/02 1900 99 10/10 1845 118 10/10 1845 97.3 10/10 1845 111 10/10 1845 156/80 10/10 1845 100 10/10 1745 111 100 30 24 hour I O ending at 0700: 10/11 0710/10 1900 Intake Total 2456.00 2676.00 Output Total 705 175 Balance 1751.00 2501.00 Intake, Free 50 30 Water Intake, IV 2299.00 2473.00 Intake, Oral 0 Intake, Tube 107 173 Feeding Number 0 Bowel Movements Output, 450 Gastric Drainage Output, Urine 255 175 Patient 177.9 kg Weight Weight Bed scale Measurement Method PATIENT WEIGHT: Weight (lb): 402 Weight (oz): 1.97 Weight (kg): 182.400 Medications: Active Meds + DC'd Last 24 Hrs Cefazolin Sodium (KEFZOL OR ANCEF) 1 GM Q12H IV Sodium Chloride (SODIUM CHLORIDE) 10 ML Ceftriaxone Sodium (ROCEPHIN 1000MG VIAL) 2,000 MG Q24H IV (DC) Sodium Chloride (SODIUM CHLORIDE) 10 ML Insulin Glargine (Lantus/Semglee) 36 UNIT BID BLANKENSHIP BQ Vancomycin HCl (VANCOMYCIN HCL) 3,000 MG ONCE ON E IV (DC) Sodium Chloride (NS 0.9%) 500 ML Miscellaneous Information (VANCOMYCIN PHARMACY T O DOSE) 1 EACH ASDIR IV (DC) Dopamine HCl/Dextrose (DOPamine 400MG/D5W 250ML) 250 ML ASDIR IV (DC) Insulin Glargine (Lantus/Semglee) 25 UNIT BID BLANKENSHIP BQ (DC) Heparin Sodium (HEPARIN 5000 UNITS/ML) 5,000 UNI T Q8H SUBQ Lactated Ringer's (LACTATED RINGERS) 1,000 ML .Q 10H IV Propofol (DIPRIVAN 1,000MG/100ML) 100 ML TITRATE IV (CKD) Lactated Ringer's (LACTATED RINGERS) 1,000 ML DIAZ EVANGELINA IV Famotidine (PEPCID) 20 MG Q12HR IV Fentanyl Citrate (Fentanyl 2,500MCG/NS 250ML) 25 0 ML ASDIR IV (CKD) Mupirocin (BACTROBAN 2% 22 GM OINTMENT) 1 APPLIC BID NASAL Dextrose/Water (DEXTROSE 50% W SYRINGE) 50 ML DIR PRN IV (CKD) Dextrose/Water (Dextrose 10% W) 1,000 ML ASDIR I V Insulin Human Regular (HumuLIN R) 100 UNIT ASDIR IV (CKD) Sodium Chloride (SODIUM CHLORIDE 0.9%) 99 ML Magnesium Sulfate (MAGNESIUM SULFATE 2GM/SWFI 50 ML) 50 ML ASDIR PRN IV Magnesium Sulfate (MAGNESIUM SULFATE 4GM/SWFI 10 0ML) 100 ML ASDIR PRN IV Potassium Chloride (POTASSIUM CHLORIDE 20MEQ TAB .ER) 20 MEQ ASDIR PRN PO Potassium Chloride (POTASSIUM CHLORIDE 20MEQ TAB .ER) 40 MEQ ASDIR PRN PO Potassium Chloride (POTASSIUM CHLORIDE 20MEQ TAB .ER) 60 MEQ ASDIR PRN PO (CKD) Potassium Chloride (KCL 20MEQ/SWFI 100ML) 100 ML ASDIR PRN IV Potassium Phosphate (POTASSIUM PHOSPHATE) 15 MM ASDIR PRN IV Sodium Chloride (SODIUM CHLORIDE 0.9%) 250 ML Physical Exam General appearance: altered mental status Head/Eyes: normocephalic ENT: intubated Neck: no JVD Cardiovascular: normal heart sounds, regular rat e rhythm Respiratory: aerating well, clear to auscultatio n, symmetric expansion Abdomen: non-tender, normal bowel sounds, soft, no distention Extremities: b/l feet wound 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 Skin: dry Psychiatry: unable to evaluate Results Findings/Data: Laboratory Tests 10/11 0334 Blood Gas Puncture Site R Radial O2 Saturation (90 - 100 %) 99.3 ABG pH (7.35 - 7.45) 7.397 ABG pCO2 (35.0 - 45 mmHg) 37.6 ABG pO2 (80 - 100.0 mmHg) 150.8 H ABG PO2/FiO2 Ratio (mm/Hg) 502.66 ABG HCO3 (22.0 - 26.0 MMOL/L) 23.1 ABG Total CO2 24.3 ABG Base Excess (-4.0 - 4.0 MMOL/L) -1.7 Sintia Test Positive O2 Delivery Device Adult Vent Vent Mode AC Vent Rate (/MIN) 18 FiO2 (%) 30 PEEP (cmH2O) 5 Laboratory Tests 10/11 10/11 10/11 10/11 10/11 1641 1453 1359 1314 1210 Chemistry POC Glucose (70 - 110 MG/DL) 109 109 115 H 113 H 132 H 10/11 10/11 10/11 10/11 10/11 1048 0955 0909 0800 0500 Chemistry Sodium (134 - 147 mEq/L) 140 Potassium (3.4 - 5.0 mEq/L) 3.2 L Chloride (100 - 108 mEq/L) 106 Carbon Dioxide (21 - 33 mEq/l) 24 Anion Gap (0 - 20) 14 BUN (7 - 18 mg/dL) 49 H Creatinine (0.6 - 1.3 mg/dL) 3.9 H Glomerular Filtr Rate (95 - 105) 15.4 L Glucose (70 - 110 mg/dL) 174 H POC Glucose (70 - 110 MG/DL) 143 H 133 H 128 H 142 H Calcium (8.0 - 10.5 mg/dL) 7.9 L Phosphorus (2.5 - 4.9 MG/DL) 1.8 L Magnesium (1.80 - 2.40 mg/dL) 2.73 H Lipase (13 - 57 U/L) 45 TSH (0.42 - 5.47) 0.03 L Free T4 (0.77 - 1.61 ng/dL) 1.0 10/11 10/11 10/11 10/11 10/10 0500 0323 0207 0010 2147 Chemistry POC Glucose (70 - 110 MG/DL) 207 H 202 H 237 H 254 H Ammonia (11 - 35 umol/L) 10/10 1916 1809 1805 Chemistry POC Glucose (70 - 110 MG/DL) 260 H 291 H 290 H Lactic Acid (0.4 - 1.9 mmol/L) 1.1 Ammonia (11 - 35 umol/L) 10/10 1729 Chemistry POC Glucose (70 - 110 MG/DL) 273 H Laboratory Tests 10/11 050 Coagulation INR (0.8 - 1.2) 1.0 PT Patient/Control Mix (9.3 - 12.9 SECONDS) 11. 6 Laboratory Tests 10/11 0500 Hematology WBC (4.5 - 11.0 x10 3/uL) 16.1 H RBC (3.54 - 5.02 x10 6/uL) 3.00 L Hgb (11.0 - 15.0 g/dL) 7.9 L Hct (33.0 - 45.0 %) 23.5 L MCV (81.0 - 99.0 fL) 78.3 L MCH (27.0 - 33.0 pg) 26.3 L MCHC (33.0 - 37.0 g/dL) 33.6 RDW (11.5 - 14.5 %) 14.6 H Plt Count (150 - 400 x10 3/uL) 211 MPV (7.0 - 9.0 fL) 11.9 H Neut % (Auto) (56.0 - 77.0 %) 57.0 Lymph % (Auto) (14.0 - 32.0 %) 31.2 [place] % (Auto) (4.8 - 9.0 %) 10.4 H Eos % (Auto) (0.3 - 3.7 %) 0.1 L Baso % (Auto) (0.0 - 2.0 %) 0.2 Neut # (Auto) (2.0 - 7.6 x10 3/uL) 9.16 H Lymph # (Auto) (1.0 - 3.8 x10 3/uL) 5.02 H [place] # (Auto) (0.1 - 0.8 x10 3/uL) 1.67 H Eos # (Auto) (0.0 - 0.2 x10 3/uL) 0.01 Baso # (Auto) (0.0 - 0.2 x10 3/uL) 0.03 Abs Immat Gran (auto) (0.00 - 0.03 x10 3/uL) 0 .18 H Add Manual Diff NO Immature Gran % (0.0 - 2.0 %) 1.1 Nucleated RBC % (0 - 0 %) 0.4 H Nucleated RBCs # (Man) (0.0 - 0.1 x10 3/uL) 0.0 6 Laboratory Tests 10/10 1755 Urines Urine Color (YEL/STRAW) YELLOW Urine Appearance (CLEAR) CLOUDY H Urine pH (5.0 - 7.0) 5.0 Ur Specific [place] (1.005 - 1.030) 1.009 Urine Protein (NEGATIVE) 1+ H Urine Glucose (UA) (NEGATIVE) 2+ H Urine Ketones (NEGATIVE) TRACE H Urine Blood (NEGATIVE) 2+ H Urine Nitrite (NEGATIVE) NEGATIVE Urine Bilirubin (NEGATIVE) NEGATIVE Urine Urobilinogen (0.2 - 1.0 mg/dL) 0.2 Ur Leukocyte Esterase (NEGATIVE) 3+ H Urine RBC (0 - 3 RBC/HPF) 21-50 Urine WBC (0 - 3 WBC/HPF) 21-50 H Ur Squamous Epith Cells (NONE SEEN /HPF) 0-5 Urine Bacteria (NONE SEEN /HPF) 1+ H Urine Mucus (NONE SEEN /LPF) TRACE Radiology data: Recent Impressions: ULTRASOUND - US RETROPERITONEAL COM 10/11 0753 Report Impression - Status: SIGNED Entered: 10/11/2021 0900 IMPRESSION: No acute sonographic finding Impression By: [email or web address] - Esau Gary CAT SCAN - CT ABD PELVIS W/O CONT 10/11 1300 Report Impression - Status: SIGNED Entered: 10/11/2021 1633 IMPRESSION: 1. No small-bowel obstruction. 2. Small bilateral basilar pleural effusions. 3. No acute abnormality in the abdomen or pelvis . Impression By: KhaiAWG Misa Boston M.D. CAT SCAN - CT HEAD/BRAIN W/O CONT 10/11 1515 Report Impression - Status: SIGNED Entered: 10/11/2021 1625 IMPRESSION: No acute intracranial abnormality. No change as compared to a study dated 10/08/2021. Impression By: Virgil Lopez RADIOLOGY - XR CHEST 1 V 10/11 1633 Report Impression - Status: SIGNED Entered: 10/11/2021 1634 IMPRESSION: 1. Support devices are stable in position. 2. Ill-defined bibasilar infiltrates and diminis hed lung volumes. Findings may reflect atelectasis, aspiration or pneumonia. Impression By: Melody Pack M.D. Diagnosis, Assessment Plan Free Text DxA P Notes Free text DxA P notes: Assessment: DKA: A1c more than 14 On insulin drip, subcu insulin Endocrine managing Acute respiratory failure: Intubated for airway protection, sedated Failed CPAP trial 10/10 ICC on board Sepsis: Leukocytosis, tachycardia, JAYLEEN, UA positive for UTI, bilateral foot wounds, low blood pressure Blood culture strep species on 10/08, repeat blo od culture, urine culture, wound culture Received vancomycin x1 Ancef as per ID ID on board Echo when recommended by ID Wound care nurse consult for bilateral foot wou nd Awaiting podiatry recommendation for infected b ilateral foot wounds JAYLEEN: Likely secondary to above causes. Patient also received Lasix today 10/10 Renal consult IV fluid hydration Avoid nephrotoxic drugs Renal ultrasound Was on department for short duration 10/11 Acute encephalopathy: -due to above causes -treat underlying causes CT head ordered 10/11 COVID 19 infection: Patient did not have respiratory distress on ad mission, intubated for airway protection Hyponatremia from osmotic hyperglycemia: Corrected sodium is elevated in hyperna tremic range due to severe dehydration Monitor lab -heparin for DVT prophylaxis Tube feeding on hold because of high residuals. Follow-up with CT abdomen/ pelvis 10/[address] Disposition: Awaiting renal, podiatry recommenda tion. On IV antibiotic. Intubated, sedated. Follow-up with cultures. CT head, CT abdomen and pelvis ordered. Tube feeding on hold for high residuals . Continue ICU care. Quality: Gen Med Crit Care VTE Prophylaxis VTE prophylaxis initiated: yes Current Medications Current medication review: I attest that the [facility] is true, accurate, and complete to the best of my knowled ge. Electronically Signed by Laura Trinh MD on 2 at 1733 RPT #:[id number] END OF REPORT 2021-10-10 22:32:00-00:00 [facility] ([facility] Infect Disease Consult Note REPORT#:[id number] REPORT STATUS: Signed DATE:10/10/21 TIME: 2231 PATIENT: HARLEEN MANZANO UNIT #: [id number] ROOM/BED: [place] [id number] : 80 AGE: 40 SEX: F ATTEND: Laura Trinh ADM AUTHOR: Pradip Akhtar MD, MD * ALL edits or amendments must be made on the el [place]/computer document * History of Present Illness Requesting Clinician: Dr. Trinh Reason for consult: Bacteremia Chief complaint: DKA HPI: 40-year-old female with past medical history sig nificant for diabetes who was found unresponsive by her da ughter for unknown period of time. Her glucose 1095 and WBC 20 1K. Patient was resuscitated, intubated and central line was placed in ED. History - Adult longitudinal Past medical history: Reports: Diabetes mellitus. Additional medical history: anemia Additional surgical history: right hip Smoking status: Smoking status for patients 13 years old or old er: Unknown,if ever smoked Allergies: Coded Allergies: Sulfa (Sulfonamide Antibiotics) (Mild, HIVES ) Review of Systems Unable to obtain due to: mv Free Text ROS Notes Free Text ROS Notes: seen early PM Objective General VS/I O: Vital Signs Date Temp Pulse Resp B/P B/P Mean Pulse Ox FiO2 07/01-10/10 96.4-98.1 86-111 18-19 87-138/54-71 65-96 30-100 30335 Last Documented: Result Date Time Pulse Ox 100 / 222 FiO2 335 / 2227 Pulse 92 / 2227 O2 Delivery Ventilator /1999 Temp 97.5 07/02 1918 B/P 120/61 /02 1600 B/P Mean 80 07/02 1600 O2 Flow Rate 15.0 07/02 1600 Resp 18 07/ 1600 Vital Signs: Date Time Temp Pulse Resp B/P B/P Pulse O2 O2 F low FiO2 Mean Ox Delivery Rate /02 2227 92 100 335 07/02 2000 Ventilator 30 07/02 1949 99 100 30 07/02 1918 97.5 Ventilator 30 07/02 1745 111 100 30 07/02 1600 97.9 90 18 120/61 80 30 Ventilator 1 5.0 100 07/02 1242 98 100 30 07/02 1200 98.0 91 18 100/56 70 30 Ventilator 1 5.0 100 07/02 1100 Ventilator 15.0 30 07/02 0902 100 Ventilator 30 07/02 0902 88 100 30 07/02 0800 97.5 90 18 106/65 78 100 Ventilator 15.0 30 07/02 0600 19 07/02 0600 104 07/02 0600 97.7 07/02 0600 79 07/02 0600 105/63 07/02 0600 100 07/02 0500 18 07/02 0500 92 07/02 0500 98.1 07/02 0500 68 07/02 0500 90/55 07/02 0500 99 07/02 0400 18 07/02 0400 101 07/02 0400 97.9 07/02 0400 98.1 Ventilator 35 07/02 0400 75 07/02 0400 101/60 07/02 0400 98 07/02 0300 18 07/02 0300 92 07/02 0300 97.2 07/02 0300 68 07/02 0300 90/55 07/02 0300 99 07/02 0252 96 99 40 07/02 0200 18 07/02 0200 86 07/02 0200 96.6 07/02 0200 65 07/02 0200 87/54 07/02 0200 100 07/02 0100 18 07/02 0100 87 07/02 0100 96.4 07/02 0100 78 07/02 0100 104/61 07/02 0100 100 07/02 0000 19 07/02 0000 100 07/02 0000 96.6 07/02 0000 96.5 Ventilator 35 07/02 0000 92 07/02 0000 126/71 07/02 0000 100 07/01 2311 96 100 35 07/01 2300 18 07/ 2300 96 07/ 2300 96.8 07/ 2300 96 07/01 2300 138/71 07/01 2300 100 24 hour I O ending at 0700: /02 0700 07/ 1900 Intake Total 4700.00 4714.00 Output Total 50 510 Balance 4650.00 4204.00 Intake, Free 30 Water Intake, IV 4401.00 4639.00 Intake, Oral 0 Intake, Tube 269 25 Feeding Intake, Tube 50 Irrigant Number 0 Bowel Movements Output, 300 Gastric Drainage Output, Urine 50 210 Patient 166.4 kg Weight Weight Bed scale Measurement Method PATIENT WEIGHT: Weight (lb): 392 Weight (oz): 3.24 Weight (kg): 177.900 Antibiotic comments: Rocephin Physical Exam General appearance: respiratory support, respons iveness Head/Eyes: atraumatic, normocephalic Neck: non-tender, supple/no meningismus Cardiovascular: normal heart sounds, no murmur Respiratory: clear to auscultation, symmetric ex pansion Abdomen: non-tender, soft Extremities: no clubbing Results Findings/Data: Laboratory Tests 10/11 419 Blood Gas Puncture Site R Radial O2 Saturation (90 - 100 %) 99.6 ABG pH (7.35 - 7.45) 7.353 ABG pCO2 (35.0 - 45 mmHg) 42.3 ABG pO2 (80 - 100.0 mmHg) 188.3 H ABG PO2/FiO2 Ratio (mm/Hg) 538.00 ABG HCO3 (22.0 - 26.0 MMOL/L) 23.5 ABG Total CO2 24.8 ABG Base Excess (-4.0 - 4.0 MMOL/L) -2.0 Sintia Test Negative O2 Delivery Device Adult Vent Vent Mode AC Vent Rate (/MIN) 18 FiO2 (%) 35 Tidal Volume (ml) 500 PEEP (cmH2O) 5 Laboratory Tests 10/10 10/10 10/10 10/10 10/10 1920 1805 1520 1439 1234 Chemistry Sodium (134 - 147 mEq/L) 139 Potassium (3.4 - 5.0 mEq/L) 3.2 L Chloride (100 - 108 mEq/L) 106 Carbon Dioxide (21 - 33 mEq/l) 24 Anion Gap (0 - 20) 12 BUN (7 - 18 mg/dL) 47 H Creatinine (0.6 - 1.3 mg/dL) 3.6 H Glomerular Filtr Rate (95 - 105) 16.9 L Glucose (70 - 110 mg/dL) 242 H POC Glucose (70 - 110 MG/DL) 233 H 265 H Lactic Acid (0.4 - 1.9 mmol/L) 1.1 Calcium (8.0 - 10.5 mg/dL) 8.0 Phosphorus (2.5 - 4.9 MG/DL) 2.1 L Magnesium (1.80 - 2.40 mg/dL) 2.63 H Ammonia (11 - 35 umol/L) 21 Albumin (3.4 - 5.0 g/dL) 2.80 L 10/10 10/10 10/10 10/10 10/10 1124 0955 0910 0610 0405 Chemistry Sodium (134 - 147 mEq/L) 139 Potassium (3.4 - 5.0 mEq/L) 3.9 Chloride (100 - 108 mEq/L) 107 Carbon Dioxide (21 - 33 mEq/l) 24 Anion Gap (0 - 20) 12 BUN (7 - 18 mg/dL) 45 H Creatinine (0.6 - 1.3 mg/dL) 3.3 H Glomerular Filtr Rate (95 - 105) 18.7 L Glucose (70 - 110 mg/dL) 266 H POC Glucose (70 - 110 MG/DL) 258 H 234 H 244 H 269 H Calcium (8.0 - 10.5 mg/dL) 8.1 Phosphorus (2.5 - 4.9 MG/DL) 2.2 L Magnesium (1.80 - 2.40 mg/dL) 1.84 Albumin (3.4 - 5.0 g/dL) 2.30 L 10/10 10/10 10/10 10/10 10/09 0323 0200 0038 0000 2309 Chemistry Sodium (134 - 147 mEq/L) 137 Potassium (3.4 - 5.0 mEq/L) 3.7 Chloride (100 - 108 mEq/L) 105 Carbon Dioxide (21 - 33 mEq/l) 25 Anion Gap (0 - 20) 11 BUN (7 - 18 mg/dL) 44 H Creatinine (0.6 - 1.3 mg/dL) 3.3 H Glomerular Filtr Rate (95 - 105) 18.7 L Glucose (70 - 110 mg/dL) 302 H POC Glucose (70 - 110 MG/DL) 263 H 264 H 265 H 272 H Calcium (8.0 - 10.5 mg/dL) 8.1 Phosphorus (2.5 - 4.9 MG/DL) 1.3 L Magnesium (1.80 - 2.40 mg/dL) 1.90 Albumin (3.4 - 5.0 g/dL) 2.40 L 10/094 Chemistry POC Glucose (70 - 110 MG/DL) 275 H Laboratory Tests 10/10 0405 Hematology WBC (4.5 - 11.0 x10 3/uL) 16.6 H RBC (3.54 - 5.02 x10 6/uL) 3.06 L Hgb (11.0 - 15.0 g/dL) 8.1 L Hct (33.0 - 45.0 %) 23.4 L MCV (81.0 - 99.0 fL) 76.5 L MCH (27.0 - 33.0 pg) 26.5 L MCHC (33.0 - 37.0 g/dL) 34.6 RDW (11.5 - 14.5 %) 14.0 Plt Count (150 - 400 x10 3/uL) 224 MPV (7.0 - 9.0 fL) 11.9 H Neut % (Auto) (56.0 - 77.0 %) 74.4 Lymph % (Auto) (14.0 - 32.0 %) 12.1 L [place] % (Auto) (4.8 - 9.0 %) 11.0 H Eos % (Auto) (0.3 - 3.7 %) 0.0 L Baso % (Auto) (0.0 - 2.0 %) 0.1 Neut # (Auto) (2.0 - 7.6 x10 3/uL) 12.34 H Lymph # (Auto) (1.0 - 3.8 x10 3/uL) 2.01 [place] # (Auto) (0.1 - 0.8 x10 3/uL) 1.83 H Eos # (Auto) (0.0 - 0.2 x10 3/uL) 0.00 Baso # (Auto) (0.0 - 0.2 x10 3/uL) 0.02 Abs Immat Gran (auto) (0.00 - 0.03 x10 3/uL) 0. 40 H Add Manual Diff NO Immature Gran % (0.0 - 2.0 %) 2.4 H Nucleated RBC % (0 - 0 %) 0.7 H Nucleated RBCs # (Man) (0.0 - 0.1 x10 3/uL) 0.1 2 H Laboratory Tests 10/10 1755 Urines Urine Color (YEL/STRAW) YELLOW Urine Appearance (CLEAR) CLOUDY H Urine pH (5.0 - 7.0) 5.0 Ur Specific [place] (1.005 - 1.030) 1.009 Urine Protein (NEGATIVE) 1+ H Urine Glucose (UA) (NEGATIVE) 2+ H Urine Ketones (NEGATIVE) TRACE H Urine Blood (NEGATIVE) 2+ H Urine Nitrite (NEGATIVE) NEGATIVE Urine Bilirubin (NEGATIVE) NEGATIVE Urine Urobilinogen (0.2 - 1.0 mg/dL) 0.2 Ur Leukocyte Esterase (NEGATIVE) 3+ H Urine RBC (0 - 3 RBC/HPF) 21-50 Urine WBC (0 - 3 WBC/HPF) 21-50 H Ur Squamous Epith Cells (NONE SEEN /HPF) 0-5 Urine Bacteria (NONE SEEN /HPF) 1+ H Urine Mucus (NONE SEEN /LPF) TRACE Microbiology Date/Time Procedure - Status Source Growth 10/10 0000 MRSA DNA Surveillance Screen - COMP NASAL Radiology data: Recent Impressions: RADIOLOGY - XR CHEST 1 V 10/10 0857 Report Impression - Status: SIGNED Entered: 10/10/2021 0916 IMPRESSION: Stable radiographic appearance of the chest. Impression By: Esau Archer Results: labs reviewed, turner l signs reviewed, x-ray personally reviewed, current med profile rev'd Treatment Prophylaxis Treatment Prophylaxis CVC/PICC documentation: The data below has been imported from nursing do cumentation. Any exceptions have been noted below under Provider comments. CVC/PICC insertion date/time: CVC multi lumen tr iple Internal jugular Right Inserted 10/08/212143 Provider comments on imported nursing data: [] Diagnosis, Assessment Plan Problem List/A P: 1. DKA (diabetic ketoacidosis) 2. COVID 3. JAYLEEN (acute kidney injury) 4. Severe sepsis 5. Metabolic encephalopathy Free Text DxA P Notes Free text DxA P notes: Severe DKA, intubated due to AMS COVID without pnuemonia or hypoxia Strep sp on blood 10/08 JAYLEEN change to Ancef repeat blood culture will follow Thank you Electronically Signed by Pradip Akhtar MD, MD on at 2234 RPT #:[id number] END OF REPORT 2021-10-10 21:02:00-00:00 [facility] Endocrinology Consultation REPORT#:[id number] REPORT STATUS: Signed DATE:10/10/21 TIME: 2101 PATIENT: HARLEEN MANZANO UNIT #: [id number] ROOM/BED: [place] [id number] : 80 AGE: 40 SEX: F ATTEND: Laura Trinh ADM AUTHOR: Gino Hernandez * ALL edits or amendments must be made on the el ectronic/computer document * History of Present Illness Requesting Clinician: Reason for consult: DKA Chief complaint: Sepsis DKA intuabted HPI: 40-year-old female with past medical history sig nificant for diabetes who was found unresponsive by her daughter for u nknown period of time. Her GCS was low in ER and glucose was above thousand, serum CO2 was 9 and WBC 20 1K. Patient was resuscitated, intubated and central line was placed in ED. Consulted for DKA. She has PMH morbid ob esity and DM1 presented to [place] ER with complaints of lethargy and weakness, nausea and vomiting. Noted to have glucose >1000 and finding of COVID. Patient is intubated, sedated, altered, off sedation, failed CPAP trial. Arrived with a bloo d glucose of 903 here and CO2 greater than 10. Blood gluco se remain in the 200's and a stable insulin gtt rate of 6 u/hr. RN at bedside. Is on TF, nutrition is to see for change to glucerna. Currently not on steroids. HgbA1c >14 Check TFT' s History - Adult longitudinal Past medical history: Reports: Diabetes mellitus. Additional medical history: anemia Additional surgical history: right hip Smoking status: Smoking status for patients 13 years old or old er: Unknown,if ever smoked Allergies: Coded Allergies: Sulfa (Sulfonamide Antibiotics) (Mild, HIVES ) Review of Systems Unable to obtain due to: AMS Objective VS/I O: Last Documented: Result Date Time FiO2 30 10/11 1999 O2 Delivery Ventilator 10/11 1999 Pulse Ox 100 10/10 194 Pulse 99 10/10 1949 Temp 97.5 10/10 1918 B/P 120/61 10/10 1600 B/P Mean 80 10/10 1600 O2 Flow Rate 15.0 10/10 1600 Resp 18 10/10 1600 24 hour I O ending at 0700: 10/10 0700 10/09 1900 Intake Total 4700.00 4714.00 Output Total 50 510 Balance 4650.00 4204.00 Intake, Free 30 Water Intake, IV 4401.00 4639.00 Intake, Oral 0 Intake, Tube 269 25 Feeding Intake, Tube 50 Irrigant Number 0 Bowel Movements Output, 300 Gastric Drainage Output, Urine 50 210 Patient 166.4 kg Weight Weight Bed scale Measurement Method PATIENT WEIGHT: Weight (lb): 392 Weight (oz): 3.24 Weight (kg): 177.900 General appearance: altered mental status Head/Eyes: atraumatic, normocephalic ENT: normal ear left, normal ear right, normal n ose Cardiovascular: regular rate rhythm Respiratory: intubated 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 Results Findings/Data: Laboratory Tests: 10/10 10/10 10/10 10/10 10/10 1920 1805 1755 1520 1439 Chemistry Sodium (134 - 147 mEq/L) 139 Potassium (3.4 - 5.0 mEq/L) 3.2 L Chloride (100 - 108 mEq/L) 106 Carbon Dioxide (21 - 33 mEq/l) 24 Anion Gap (0 - 20) 12 BUN (7 - 18 mg/dL) 47 H Creatinine (0.6 - 1.3 mg/dL) 3.6 H Glomerular Filtr Rate (95 - 105) 16.9 L Glucose (70 - 110 mg/dL) 242 H POC Glucose (70 - 110 MG/DL) 233 H Lactic Acid (0.4 - 1.9 mmol/L) 1.1 Calcium (8.0 - 10.5 mg/dL) 8.0 Phosphorus (2.5 - 4.9 MG/DL) 2.1 L Magnesium (1.80 - 2.40 mg/dL) 2.63 H Ammonia (11 - 35 umol/L) 21 Albumin (3.4 - 5.0 g/dL) 2.80 L Urines Urine Color (YEL/STRAW) YELLOW Urine Appearance (CLEAR) CLOUDY H Urine pH (5.0 - 7.0) 5.0 Ur Specific [place] (1.005 - 1.030) 1.009 Urine Protein (NEGATIVE) 1+ H Urine Glucose (UA) (NEGATIVE) 2+ H Urine Ketones (NEGATIVE) TRACE H Urine Blood (NEGATIVE) 2+ H Urine Nitrite (NEGATIVE) NEGATIVE Urine Bilirubin (NEGATIVE) NEGATIVE Urine Urobilinogen (0.2 - 1.0 mg/dL) 0.2 Ur Leukocyte Esterase (NEGATIVE) 3+ H Urine RBC (0 - 3 RBC/HPF) 21-50 Urine WBC (0 - 3 WBC/HPF) 21-50 H Ur Squamous Epith Cells (NONE SEEN 0-5 /HPF) Urine Bacteria (NONE SEEN /HPF) 1+ H Urine Mucus (NONE SEEN /LPF) TRACE 10/10 10/10 10/10 10/10 10/10 1234 1124 0955 0910 0610 Chemistry POC Glucose (70 - 110 MG/DL) 265 H 258 H 234 H 244 H 269 H 10/10 10/10 10/10 10/10 4385 0407 0323 0200 Blood Gas Puncture Site R Radial O2 Saturation (90 - 100 %) 99.6 ABG pH (7.35 - 7.45) 7.353 ABG pCO2 (35.0 - 45 mmHg) 42.3 ABG pO2 (80 - 100.0 mmHg) 188.3 H ABG PO2/FiO2 Ratio (mm/Hg) 538.00 ABG HCO3 (22.0 - 26.0 MMOL/L) 23.5 ABG Total CO2 24.8 ABG Base Excess (-4.0 - 4.0 MMOL/L) -2.0 Sintia Test Negative O2 Delivery Device Adult Vent Vent Mode AC Vent Rate (/MIN) 18 FiO2 (%) 35 Tidal Volume (ml) 500 PEEP (cmH2O) 5 Chemistry Sodium (134 - 147 mEq/L) 139 Potassium (3.4 - 5.0 mEq/L) 3.9 Chloride (100 - 108 mEq/L) 107 Carbon Dioxide (21 - 33 mEq/l) 24 Anion Gap (0 - 20) 12 BUN (7 - 18 mg/dL) 45 H Creatinine (0.6 - 1.3 mg/dL) 3.3 H Glomerular Filtr Rate (95 - 105) 18.7 L Glucose (70 - 110 mg/dL) 266 H POC Glucose (70 - 110 MG/DL) 263 H 264 H Calcium (8.0 - 10.5 mg/dL) 8.1 Phosphorus (2.5 - 4.9 MG/DL) 2.2 L Magnesium (1.80 - 2.40 mg/dL) 1.84 Albumin (3.4 - 5.0 g/dL) 2.30 L Hematology WBC (4.5 - 11.0 x10 3/uL) 16.6 H RBC (3.54 - 5.02 x10 6/uL) 3.06 L Hgb (11.0 - 15.0 g/dL) 8.1 L Hct (33.0 - 45.0 %) 23.4 L MCV (81.0 - 99.0 fL) 76.5 L MCH (27.0 - 33.0 pg) 26.5 L MCHC (33.0 - 37.0 g/dL) 34.6 RDW (11.5 - 14.5 %) 14.0 Plt Count (150 - 400 x10 3/uL) 224 MPV (7.0 - 9.0 fL) 11.9 H Neut % (Auto) (56.0 - 77.0 %) 74.4 Lymph % (Auto) (14.0 - 32.0 %) 12.1 L [place] % (Auto) (4.8 - 9.0 %) 11.0 H Eos % (Auto) (0.3 - 3.7 %) 0.0 L Baso % (Auto) (0.0 - 2.0 %) 0.1 Neut # (Auto) (2.0 - 7.6 x10 3/uL) 12.34 H Lymph # (Auto) (1.0 - 3.8 x10 3/uL) 2.01 [place] # (Auto) (0.1 - 0.8 x10 3/uL) 1.83 H Eos # (Auto) (0.0 - 0.2 x10 3/uL) 0.00 Baso # (Auto) (0.0 - 0.2 x10 3/uL) 0.02 Abs Immat Gran (auto) (0.00 - 0.03 0.40 H x10 3/uL) Add Manual Diff NO Immature Gran % (0.0 - 2.0 %) 2.4 H Nucleated RBC % (0 - 0 %) 0.7 H Nucleated RBCs # (Man) (0.0 - 0.1 x10 3/uL) 0. 12 H 10/10 10/10 10/09 10/09 10/09 0038 0000 [id number] Chemistry Sodium (134 - 147 mEq/L) 137 Potassium (3.4 - 5.0 mEq/L) 3.7 Chloride (100 - 108 mEq/L) 105 Carbon Dioxide (21 - 33 mEq/l) 25 Anion Gap (0 - 20) 11 BUN (7 - 18 mg/dL) 44 H Creatinine (0.6 - 1.3 mg/dL) 3.3 H Glomerular Filtr Rate (95 - 105) 18.7 L Glucose (70 - 110 mg/dL) 302 H POC Glucose (70 - 110 MG/DL) 265 H 272 H 275 H 270 H Calcium (8.0 - 10.5 mg/dL) 8.1 Phosphorus (2.5 - 4.9 MG/DL) 1.3 L Magnesium (1.80 - 2.40 mg/dL) 1.90 Albumin (3.4 - 5.0 g/dL) 2.40 L Microbiology: Date/Time Procedure - Status Source Growth 10/10 1755 Urine Culture - [facility] URINE 10/10 1745 Wound Culture - [facility] FOOT 10/10 0000 MRSA DNA Surveillance Screen - COMP NASAL Recent Impressions: RADIOLOGY - XR CHEST 1 V 10/10 856 Report Impression - Status: SIGNED Entered: 10/10/2021915 IMPRESSION: Stable radiographic appearance of the chest. Impression By: Natalee - Esau Gary Diagnosis, Assessment Plan Free Text A P: 1.DM I in DKA HgbA1c >14 TFT's pending adjust lantus continue insulin gtt on TF monitor glucose 2.Acute respiratory failure intubated 3.Altered mental status 2/2 to DKA 4.JAYLEEN with worsening renal function 5.COVID-19 6.Bacteremia with alpha Streptococcus species on abx Thank you for the kind consult. at 1338 Electronically Signed by Darvin Mooney MD on 0 10/17/21 at 1228 RPT #:[id number] END OF REPORT 2021-10-10 17:35:00-00:00 [facility] ([facility] Critical Care Progress Note REPORT#:[id number] REPORT STATUS: Signed DATE:10/10/21 TIME: 1734 PATIENT: HARLEEN MANZANO UNIT #: [id number] ROOM/BED: [address] : 80 AGE: 40 SEX: F ATTEND: Laura Trinh ADM AUTHOR: Greg Mallory MD * ALL edits or amendments must be made on the el [employer]/computer document * Subjective Chief complaint: AMS HPI: she has PMH morbid obesity and DM1 presents to [place] ER with complaints of clarissa rgy and weakness, nausea and vomiting. noted to have gluc ose >1000 and finding of COVID as well. poor history due to patient mental status and she was intubat ed for airway protection. due to bed capacity transferred to our facility for further care. she is on insulin infusion, sedated with fentany l, on levophed at low dose Comments: Interval history- Patient's anion gap is improved Mental status not at baseline wakes up but not f ollows commands. Worsening renal function given fluid boluses ove rnight for decreased urine output Objective General VS/I O Last Documented: Result Date Time Pulse Ox 30 10/10 1600 B/P 120/61 10/10 1600 B/P Mean 80 10/10 1600 FiO2 100 10/10 1600 O2 Delivery Ventilator 10/11 1599 O2 Flow Rate 15.0 10/10 1600 Temp 36.6 10/10 1600 Pulse 90 10/10 1600 Resp 18 10/10 1600 24 hour I O ending at 0700: 10/10 0700 07/ 1900 Intake Total 4700.00 4714.00 Output Total 50 510 Balance 4650.00 4204.00 Intake, Free 30 Water Intake, IV 4401.00 4639.00 Intake, Oral 0 Intake, Tube 269 25 Feeding Intake, Tube 50 Irrigant Number 0 Bowel Movements Output, 300 Gastric Drainage Output, Urine 50 210 Patient 166.4 kg Weight Weight Bed scale Measurement Method PATIENT WEIGHT: Weight (lb): 392 Weight (oz): 3.24 Weight (kg): 177.900 Medications: Active Meds + DC'd Last 24 Hrs Ceftriaxone Sodium (ROCEPHIN 1000MG VIAL) 2,000 MG Q24H IV Sodium Chloride (SODIUM CHLORIDE) 10 ML Vancomycin HCl (VANCOMYCIN HCL) 3,000 MG ONCE ON E IV Sodium Chloride (NS 0.9%) 500 ML Miscellaneous Information (VANCOMYCIN PHARMACY T O DOSE) 1 EACH ASDIR IV (CKD) Phosphorus (K-PHOS NEUTRAL) 250 MG ONCE ONE FEED -TUBE (DC) Dopamine HCl/Dextrose (DOPamine 400MG/D5W 250ML) 250 ML ASDIR IV Insulin Glargine (Lantus/Semglee) 25 UNIT BID BLANKENSHIP BQ Albumin Human (ALBUMINAR-25%) 50 ML ONCE ONE IV (DC) Furosemide (LASIX 40 mg/4 mL INJECTION) 40 MG ON CE ONE IV (DC) Albumin Human (ALBUMINAR 5% 12.5GM/250ML) 250 ML Q30M IV (DC) Magnesium Sulfate (MAGNESIUM SULFATE 4GM/SWFI 10 0ML) 100 ML ONCE ONE IV (DC) Heparin Sodium (HEPARIN 5000 UNITS/ML) 5,000 UNI T Q8H SUBQ Sodium Chloride (SODIUM CHLORIDE 0.9%) 1,000 ML BOLUS ONCE ONE IV (DC) Sodium Chloride (SODIUM CHLORIDE 0.9%) 1,000 ML BOLUS ONCE ONE IV (DC) Lactated Ringer's (LACTATED RINGERS) 1,000 ML .Q 10H IV Lactated Ringer's (LACTATED RINGERS) 1,000 ML .Q 10H IV (DC) Propofol (DIPRIVAN 1,000MG/100ML) 100 ML TITRATE IV (CKD) Lactated Ringer's (LACTATED RINGERS) 1,000 ML DIAZ EVANGELINA IV Azithromycin (ZITHROMAX) 250 MG DAILY FEED-TUBE (DC) Famotidine (PEPCID) 20 MG Q12HR IV Fentanyl Citrate (Fentanyl 2,500MCG/NS 250ML) 25 0 ML ASDIR IV (CKD) Ceftriaxone Sodium (ROCEPHIN 1000MG VIAL) 1,000 MG Q24H IV (DC) Sodium Chloride (SODIUM CHLORIDE) 10 ML Mupirocin (BACTROBAN 2% 22 GM OINTMENT) 1 APPLIC BID NASAL Sodium Bicarbonate (SODIUM BICARBONATE) 150 ML Q 11H IV (DC) Dextrose/Water (DEXTROSE 5% WATER) 1,000 ML Dextrose/Water (DEXTROSE 50% W SYRINGE) 50 ML DIR PRN IV (CKD) Dextrose/Water (Dextrose 10% W) 1,000 ML ASDIR I V Insulin Human Regular (HumuLIN R) 100 UNIT ASDIR IV (CKD) Sodium Chloride (SODIUM CHLORIDE 0.9%) 99 ML Magnesium Sulfate (MAGNESIUM SULFATE 2GM/SWFI 50 ML) 50 ML ASDIR PRN IV Magnesium Sulfate (MAGNESIUM SULFATE 4GM/SWFI 10 0ML) 100 ML ASDIR PRN IV Potassium Chloride (POTASSIUM CHLORIDE 20MEQ TAB .ER) 20 MEQ ASDIR PRN PO Potassium Chloride (POTASSIUM CHLORIDE 20MEQ TAB .ER) 40 MEQ ASDIR PRN PO Potassium Chloride (POTASSIUM CHLORIDE 20MEQ TAB .ER) 60 MEQ ASDIR PRN PO (CKD) Potassium Chloride (KCL 20MEQ/SWFI 100ML) 100 ML ASDIR PRN IV Potassium Phosphate (POTASSIUM PHOSPHATE) 15 MM ASDIR PRN IV Sodium Chloride (SODIUM CHLORIDE 0.9%) 250 ML Results Findings/data: Laboratory Tests 10/10 0420 Blood Gas Puncture Site R Radial O2 Saturation (90 - 100 %) 99.6 ABG pH (7.35 - 7.45) 7.353 ABG pCO2 (35.0 - 45 mmHg) 42.3 ABG pO2 (80 - 100.0 mmHg) 188.3 H ABG PO2/FiO2 Ratio (mm/Hg) 538.00 ABG HCO3 (22.0 - 26.0 MMOL/L) 23.5 ABG Total CO2 24.8 ABG Base Excess (-4.0 - 4.0 MMOL/L) -2.0 Sintia Test Negative O2 Delivery Device Adult Vent Vent Mode AC Vent Rate (/MIN) 18 FiO2 (%) 35 Tidal Volume (ml) 500 PEEP (cmH2O) 5 Laboratory Tests 10/10 10/10 10/10 10/10 10/10 1520 1234 1124 0955 0910 Chemistry Sodium (134 - 147 mEq/L) 139 Potassium (3.4 - 5.0 mEq/L) 3.2 L Chloride (100 - 108 mEq/L) 106 Carbon Dioxide (21 - 33 mEq/l) 24 Anion Gap (0 - 20) 12 BUN (7 - 18 mg/dL) 47 H Creatinine (0.6 - 1.3 mg/dL) 3.6 H Glomerular Filtr Rate (95 - 105) 16.9 L Glucose (70 - 110 mg/dL) 242 H POC Glucose (70 - 110 MG/DL) 265 H 258 H 234 H 244 H Calcium (8.0 - 10.5 mg/dL) 8.0 Phosphorus (2.5 - 4.9 MG/DL) 2.1 L Magnesium (1.80 - 2.40 mg/dL) 2.63 H Albumin (3.4 - 5.0 g/dL) 2.80 L 10/10 10/10 10/10 10/10 10/10 0610 0405 0323 0200 0038 Chemistry Sodium (134 - 147 mEq/L) 139 Potassium (3.4 - 5.0 mEq/L) 3.9 Chloride (100 - 108 mEq/L) 107 Carbon Dioxide (21 - 33 mEq/l) 24 Anion Gap (0 - 20) 12 BUN (7 - 18 mg/dL) 45 H Creatinine (0.6 - 1.3 mg/dL) 3.3 H Glomerular Filtr Rate (95 - 105) 18.7 L Glucose (70 - 110 mg/dL) 266 H POC Glucose (70 - 110 MG/DL) 269 H 263 H 264 H 265 H Calcium (8.0 - 10.5 mg/dL) 8.1 Phosphorus (2.5 - 4.9 MG/DL) 2.2 L Magnesium (1.80 - 2.40 mg/dL) 1.84 Albumin (3.4 - 5.0 g/dL) 2.30 L 10/10 10/09 10/09 10/09 10/09 0000 2309 2234 2136 2026 Chemistry Sodium (134 - 147 mEq/L) 137 Potassium (3.4 - 5.0 mEq/L) 3.7 Chloride (100 - 108 mEq/L) 105 Carbon Dioxide (21 - 33 mEq/l) 25 Anion Gap (0 - 20) 11 BUN (7 - 18 mg/dL) 44 H Creatinine (0.6 - 1.3 mg/dL) 3.3 H Glomerular Filtr Rate (95 - 105) 18.7 L Glucose (70 - 110 mg/dL) 302 H POC Glucose (70 - 110 MG/DL) 272 H 275 H 270 H 323 H Calcium (8.0 - 10.5 mg/dL) 8.1 Phosphorus (2.5 - 4.9 MG/DL) 1.3 L Magnesium (1.80 - 2.40 mg/dL) 1.90 Albumin (3.4 - 5.0 g/dL) 2.40 L 10/09 10/09 191 191 Chemistry Sodium (134 - 147 mEq/L) 138 Potassium (3.4 - 5.0 mEq/L) 3.5 Chloride (100 - 108 mEq/L) 105 Carbon Dioxide (21 - 33 mEq/l) 25 Anion Gap (0 - 20) 11 BUN (7 - 18 mg/dL) 46 H Creatinine (0.6 - 1.3 mg/dL) 3.2 H Glomerular Filtr Rate (95 - 105) 19.4 L Glucose (70 - 110 mg/dL) 347 H POC Glucose (70 - 110 MG/DL) 330 H Calcium (8.0 - 10.5 mg/dL) 8.4 Phosphorus (2.5 - 4.9 MG/DL) 1.6 L Magnesium (1.80 - 2.40 mg/dL) 1.94 Albumin (3.4 - 5.0 g/dL) 2.60 L Laboratory Tests 10/10 0405 Hematology WBC (4.5 - 11.0 x10 3/uL) 16.6 H RBC (3.54 - 5.02 x10 6/uL) 3.06 L Hgb (11.0 - 15.0 g/dL) 8.1 L Hct (33.0 - 45.0 %) 23.4 L MCV (81.0 - 99.0 fL) 76.5 L MCH (27.0 - 33.0 pg) 26.5 L MCHC (33.0 - 37.0 g/dL) 34.6 RDW (11.5 - 14.5 %) 14.0 Plt Count (150 - 400 x10 3/uL) 224 MPV (7.0 - 9.0 fL) 11.9 H Neut % (Auto) (56.0 - 77.0 %) 74.4 Lymph % (Auto) (14.0 - 32.0 %) 12.1 L [place] % (Auto) (4.8 - 9.0 %) 11.0 H Eos % (Auto) (0.3 - 3.7 %) 0.0 L Baso % (Auto) (0.0 - 2.0 %) 0.1 Neut # (Auto) (2.0 - 7.6 x10 3/uL) 12.34 H Lymph # (Auto) (1.0 - 3.8 x10 3/uL) 2.01 [place] # (Auto) (0.1 - 0.8 x10 3/uL) 1.83 H Eos # (Auto) (0.0 - 0.2 x10 3/uL) 0.00 Baso # (Auto) (0.0 - 0.2 x10 3/uL) 0.02 Abs Immat Gran (auto) (0.00 - 0.03 x10 3/uL) 0. 40 H Add Manual Diff NO Immature Gran % (0.0 - 2.0 %) 2.4 H Nucleated RBC % (0 - 0 %) 0.7 H Nucleated RBCs # (Man) (0.0 - 0.1 x10 3/uL) 0.1 2 H Laboratory Tests 10/10/21 1520: [Embedded Image Not Available] 10/10/21 0405: [Embedded Image Not Available] 10/10/21 0000: [Embedded Image Not Available] 10/09/21 1915: [Embedded Image Not Available] Microbiology: 10/10 1650 FOOT: Wound Culture - ORD 10/10 0000 NASAL: MRSA DNA Surveillance Screen - COMP 10/08 2217 BLOOD: Blood Culture - CAN Cancelled: DUPLICATE ORDER 10/08 2217 BLOOD: Blood Culture - CAN Cancelled: DUPLICATE ORDER 10/09 2107 BLOOD: Blood Culture - RES 10/09 2107 BLOOD: Blood Culture - RES Free Text Obj Notes Free Text Obj Notes: Gen: intubated, sedated HEENT: no lymphadenopathy, no masses CVS: S1S2, RRR Resp: bilateral crackles, equal air entry bilate rally Gastro: non-distended, no organomegaly, BS reduc ed Lymphatics: trace LE edema, distal pulses palpab le Skin: Extremities lower foot poorly maintained. Neuro: gag and cough. Moving all extremities Diagnosis, Assessment Plan Problem list/A P: 1. DKA (diabetic ketoacidosis) 2. Respiratory failure 3. COVID 4. JAYLEEN (acute kidney injury) 5. Hyperkalemia 6. Severe sepsis 7. Metabolic encephalopathy Free text A P: 40-year-old female admitted to ICU Acute respiratory failure requiring intubation d ue to mental status change Altered mental status likely metabolic encephalo antonio DKA with acidosis severe pH was less than 6.9 JAYLEEN with worsening renal function Diabetes with hemoglobin A1c more than 14 Bacteremia with alpha Streptococcus species COVID-positive Sedate with propofol and fentanyl. And has received fluids as +8.8 L last n ight. We will give her 1 dose of Lasix to see if helps with her urine output. A lso started on dopamine renal dosing 3 mics. Renal consult was placed by primary to juana echavarria. Blood cultures are positive. Continue with antibiotics ceftriaxone increased to 2 g. And vancomycin pending sensitivities ID [email or web address] luation pending. Obtain echo Continue with the current ve nt settings requiring minimal vent support. Patient still not awake enough to extubated. Patient mcallister s have some upward eyeball rolling. Will place cerebral to rule out any sei zures Continue insulin. Started on Lantus 25 and twice daily. Awaiting endocrine evaluation. Continue with the drip until her sug ars are well controlled and then stop. Tube feeds PPI daily as intubated Heparin subcu for DVT prophylaxis Patient is critically ill Total critical care time 40 minutes Electronically Signed by Greg Mallory MD on 0 10/10/21 at 1742 RPT #:[id number] END OF REPORT 2021-10-10 17:05:00-00:00 [facility] ([facility] Pharmacy Prog.Note-Vancomycin REPORT#:[id number] REPORT STATUS: Signed DATE:10/10/21 TIME: 1705 PATIENT: HARLEEN MANZANO UNIT #: [id number] ROOM/BED: [place] [id number] : 80 AGE: 40 SEX: F ATTEND: Laura Trinh ADM AUTHOR: Ericka Evans [facility] * ALL edits or amendments must be made on the [email or web address] document * Vancomycin Vancomycin Medication Therapy Goal: trough 10-15 mcg/mL Indication for treatment: SSTI Current therapy: New start Day of therapy: Weight: Actual weight (kg): 178 VS and I/O: Vital Signs Date Temp Pulse Resp B/P B/P Mean Pulse Ox FiO2 10/08-10/10 94.5-99.0 62-130 9-37 87-143/50-71 65-98 30-100 30-100 72 hours ending at 0700 10/10 0710/09 1900 10/09 07 1900 Intake 4700.00 4714.00 770.00 Total Output 50 510 700 Total Balance 4650.00 4204.00 70.00 Intake, 30 Free Water Intake, IV 4401.00 4639.00 770.00 Intake, 0 Oral Intake, 269 25 Tube Feeding Intake, 50 Tube Irrigant Number 0 Bowel Movements Output, 300 Gastric Drainage Output, 50 210 700 Urine Patient 166.4 kg 162.273 kg Weight Weight Bed scale Estimated Measuremen t Method 72 Hour I O Total 10/10 0710/09 0710/08 07 Intake Total 9414.00 770.00 Output Total 560 700 Balance 8854.00 70.00 Labs: Laboratory Test : 10/10 10/10 10/10 10/09 1520 0405 0000 1915 Chemistry BUN (7 - 18 mg/dL) 47 H 45 H 44 H 46 H Creatinine (0.6 - 1.3 mg/dL) 3.6 H 3.3 H 3.3 H 3.2 H Hematology WBC (4.5 - 11.0 x10 3/uL) 16.6 H Microbiology: 10/10 1650 FOOT: Wound Culture - ORD 10/10 0000 NASAL: MRSA DNA Surveillance Screen - COMP 10/08 2217 BLOOD: Blood Culture - CAN Cancelled: DUPLICATE ORDER 10/08 2217 BLOOD: Blood Culture - CAN Cancelled: DUPLICATE ORDER 10/09 2107 BLOOD: Blood Culture - RES 10/09 2107 BLOOD: Blood Culture - RES Pertinent tests: Recent Impressions: RADIOLOGY - XR CHEST 1 V 10/10 0857 Report Impression - Status: SIGNED Entered: 10/10/2021 0916 IMPRESSION: Stable radiographic appearance of the chest. Impression By: [email or web address] - Esau Gary Treatment plan: consult, initiation of therapy Regimen: Ms. Manzano is a 40-year-old female with past med ical history significant for diabetes who was found unres ponsive by her daughter for unknown period of time. Her glucose was >1000 with an elevated WBC count of 22,600. Patient was resuscitated, intubated, and a central line was placed. Pharmacy has been consulted to dose vancomycin. Consulting MD: Dr. Laura Trinh Indication: SSTI Trough goal: 10-15 mcg/mL 10/10 A P: 1. Vitals - Afebrile, BP 120/61mmHg, satting 100 % on vent (FiO2 35, peep 5). 2. Labs - WBC 16.6 (down from 22.6), no ESR/CRP, lactic acid 1.3, BUN 47, SCr 3.6, UOP 260mL documented/24hrs, CrCL 36mL/min ( adjBW). 3. Micro - Blood cx: NGTD. Left foot wound cx: p ending receipt. MRSA surveillance screen: negative. 4. Imaging - See above. 5. Dosing Monitoring - No mention of SSTI in MD notes so far, but noted order for left foot wound cx. Will initiate va ncomycin with a loading dose of 3000mg IV x1 dose (17mg/kg). Considering the pa rachana's body habitus (ABW = 178kg) and significant renal dysfunction, will plan to dose vancomycin by level for now rather than starting a sched uled maintenance regimen. Will order a random serum level for tomorrow at 1400 and redose if indicat ed. Thank you for the consult. Pharmacy will continu e to follow. Electronically Signed by Ericka Evans [facility] on 06/02 at 1722 RPT #:[id number] END OF REPORT 2021-10-10 14:53:00-00:00 [facility] Hospitalist Progress Note REPORT#:[id number] REPORT STATUS: Signed DATE:10/10/21 TIME: 1452 PATIENT: HARLEEN MANZANO UNIT #: [id number] ROOM/BED: [place] [address] : 80 AGE: 40 SEX: F ATTEND: Laura Trinh ADM AUTHOR: Laura Trinh MD * ALL edits or amendments must be made on the [email or web address]/computer document * See Addendum Subjective Chief complaint: Patient intubated, sedated, altered off sedation , failed CPAP trial Objective General VS/I O: Vital Signs: Date Time Temp Pulse Resp B/P B/P Pulse O2 O2 F low FiO2 Mean Ox Delivery Rate 10/10 1949 99 100 30 / 1918 97.5 Ventilator 30 / 1745 111 100 30 07/ 1600 97.9 90 18 120/61 80 30 Ventilator 15.0 100 07/02 1242 98 100 30 07/02 1200 98.0 91 18 100/56 70 30 Ventilator 1 5.0 100 07/02 0902 100 Ventilator 30 07/02 0902 88 100 30 07/02 0800 97.5 90 18 106/65 78 100 Ventilator 15.0 30 07/02 0600 19 07/02 0600 104 07/02 0600 97.7 07/02 0600 79 07/02 0600 105/63 07/02 0600 100 07/ 0500 18 07/02 0500 92 07/02 0500 98.1 07/02 0500 68 07/02 0500 90/55 07/02 0500 99 07/02 0400 18 07/02 0400 101 07/02 0400 97.9 07/02 0400 98.1 Ventilator 35 07/02 0400 75 07/02 0400 101/60 07/02 0400 98 07/02 0300 18 07/02 0300 92 07/02 0300 97.2 07/02 0300 68 07/02 0300 90/55 07/02 0300 99 07/02 0252 96 99 40 07/02 0200 18 07/02 0200 86 07/02 0200 96.6 07/02 0200 65 07/02 0200 87/54 07/02 0200 100 07/02 0100 18 07/02 0100 87 07/02 0100 96.4 07/02 0100 78 07/02 0100 104/61 07/02 0100 100 07/02 0000 19 07/02 0000 100 07/02 0000 96.6 07/02 0000 96.5 Ventilator 35 07/02 0000 92 07/02 0000 126/71 07/02 0000 100 07/01 2311 96 100 35 07/01 2300 18 07/01 2300 96 07/01 2300 96.8 07/01 2300 96 07/01 2300 138/71 07/01 2300 100 07/01 2200 18 07/01 2200 99 07/01 2200 96.8 07/01 2200 76 07/01 2200 104/58 07/01 2200 99 07/01 2100 18 07/ 2100 97 07/01 2100 97.3 07/ 2100 77 07/01 2100 104/58 07/01 2100 100 24 hour I O ending at 0700: 07/02 0700 07/01 1900 Intake Total 4700.00 4714.00 Output Total 50 510 Balance 4650.00 4204.00 Intake, Free 30 Water Intake, IV 4401.00 4639.00 Intake, Oral 0 Intake, Tube 269 25 Feeding Intake, Tube 50 Irrigant Number 0 Bowel Movements Output, 300 Gastric Drainage Output, Urine 50 210 Patient 166.4 kg Weight Weight Bed scale Measurement Method PATIENT WEIGHT: Weight (lb): 392 Weight (oz): 3.24 Weight (kg): 177.900 Medications: Active Meds + DC'd Last 24 Hrs Ceftriaxone Sodium (ROCEPHIN 1000MG VIAL) 2,000 MG Q24H IV Sodium Chloride (SODIUM CHLORIDE) 10 ML Vancomycin HCl (VANCOMYCIN HCL) 3,000 MG ONCE ON E IV Sodium Chloride (NS 0.9%) 500 ML Miscellaneous Information (VANCOMYCIN PHARMACY T O DOSE) 1 EACH ASDIR IV (CKD) Phosphorus (K-PHOS NEUTRAL) 250 MG ONCE ONE FEED -TUBE (DC) Dopamine HCl/Dextrose (DOPamine 400MG/D5W 250ML) 250 ML ASDIR IV Insulin Glargine (Lantus/Semglee) 25 UNIT BID BLANKENSHIP BQ Albumin Human (ALBUMINAR-25%) 50 ML ONCE ONE IV (DC) Furosemide (LASIX 40 mg/4 mL INJECTION) 40 MG ON CE ONE IV (DC) Albumin Human (ALBUMINAR 5% 12.5GM/250ML) 250 ML Q30M IV (DC) Magnesium Sulfate (MAGNESIUM SULFATE 4GM/SWFI 10 0ML) 100 ML ONCE ONE IV (DC) Heparin Sodium (HEPARIN 5000 UNITS/ML) 5,000 UNI T Q8H SUBQ Sodium Chloride (SODIUM CHLORIDE 0.9%) 1,000 ML BOLUS ONCE ONE IV (DC) Sodium Chloride (SODIUM CHLORIDE 0.9%) 1,000 ML BOLUS ONCE ONE IV (DC) Lactated Ringer's (LACTATED RINGERS) 1,000 ML .Q 10H IV Propofol (DIPRIVAN 1,000MG/100ML) 100 ML TITRATE IV (CKD) Lactated Ringer's (LACTATED RINGERS) 1,000 ML DIAZ EVANGELINA IV Azithromycin (ZITHROMAX) 250 MG DAILY FEED-TUBE (DC) Famotidine (PEPCID) 20 MG Q12HR IV Fentanyl Citrate (Fentanyl 2,500MCG/NS 250ML) 25 0 ML ASDIR IV (CKD) Ceftriaxone Sodium (ROCEPHIN 1000MG VIAL) 1,000 MG Q24H IV (DC) Sodium Chloride (SODIUM CHLORIDE) 10 ML Mupirocin (BACTROBAN 2% 22 GM OINTMENT) 1 APPLIC BID NASAL Sodium Bicarbonate (SODIUM BICARBONATE) 150 ML Q 11H IV (DC) Dextrose/Water (DEXTROSE 5% WATER) 1,000 ML Dextrose/Water (DEXTROSE 50% W SYRINGE) 50 ML DIR PRN IV (CKD) Dextrose/Water (Dextrose 10% W) 1,000 ML ASDIR I V Insulin Human Regular (HumuLIN R) 100 UNIT ASDIR IV (CKD) Sodium Chloride (SODIUM CHLORIDE 0.9%) 99 ML Magnesium Sulfate (MAGNESIUM SULFATE 2GM/SWFI 50 ML) 50 ML ASDIR PRN IV Magnesium Sulfate (MAGNESIUM SULFATE 4GM/SWFI 10 0ML) 100 ML ASDIR PRN IV Potassium Chloride (POTASSIUM CHLORIDE 20MEQ TAB .ER) 20 MEQ ASDIR PRN PO Potassium Chloride (POTASSIUM CHLORIDE 20MEQ TAB .ER) 40 MEQ ASDIR PRN PO Potassium Chloride (POTASSIUM CHLORIDE 20MEQ TAB .ER) 60 MEQ ASDIR PRN PO (CKD) Potassium Chloride (KCL 20MEQ/SWFI 100ML) 100 ML ASDIR PRN IV Potassium Phosphate (POTASSIUM PHOSPHATE) 15 MM ASDIR PRN IV Sodium Chloride (SODIUM CHLORIDE 0.9%) 250 ML Physical Exam General appearance: altered mental status Head/Eyes: normocephalic ENT: intubated Neck: no JVD Cardiovascular: tachycardic, normal heart sounds , regular rate rhythm Respiratory: aerating well, clear to auscultatio n, symmetric expansion Abdomen: non-tender, normal bowel sounds, soft, no distention Extremities: b/l feet wound 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 Skin: dry Psychiatry: unable to evaluate Results Findings/Data: Laboratory Tests 10/10 042 Blood Gas Puncture Site R Radial O2 Saturation (90 - 100 %) 99.6 ABG pH (7.35 - 7.45) 7.353 ABG pCO2 (35.0 - 45 mmHg) 42.3 ABG pO2 (80 - 100.0 mmHg) 188.3 H ABG PO2/FiO2 Ratio (mm/Hg) 538.00 ABG HCO3 (22.0 - 26.0 MMOL/L) 23.5 ABG Total CO2 24.8 ABG Base Excess (-4.0 - 4.0 MMOL/L) -2.0 Sintia Test Negative O2 Delivery Device Adult Vent Vent Mode AC Vent Rate (/MIN) 18 FiO2 (%) 35 Tidal Volume (ml) 500 PEEP (cmH2O) 5 Laboratory Tests 10/10 10/10 10/10 10/10 10/10 1920 1805 1520 1439 1234 Chemistry Sodium (134 - 147 mEq/L) 139 Potassium (3.4 - 5.0 mEq/L) 3.2 L Chloride (100 - 108 mEq/L) 106 Carbon Dioxide (21 - 33 mEq/l) 24 Anion Gap (0 - 20) 12 BUN (7 - 18 mg/dL) 47 H Creatinine (0.6 - 1.3 mg/dL) 3.6 H Glomerular Filtr Rate (95 - 105) 16.9 L Glucose (70 - 110 mg/dL) 242 H POC Glucose (70 - 110 MG/DL) 233 H 265 H Lactic Acid (0.4 - 1.9 mmol/L) 1.1 Calcium (8.0 - 10.5 mg/dL) 8.0 Phosphorus (2.5 - 4.9 MG/DL) 2.1 L Magnesium (1.80 - 2.40 mg/dL) 2.63 H Ammonia (11 - 35 umol/L) 21 Albumin (3.4 - 5.0 g/dL) 2.80 L 10/10 10/10 10/10 10/10 10/10 1124 0955 0910 0610 0405 Chemistry Sodium (134 - 147 mEq/L) 139 Potassium (3.4 - 5.0 mEq/L) 3.9 Chloride (100 - 108 mEq/L) 107 Carbon Dioxide (21 - 33 mEq/l) 24 Anion Gap (0 - 20) 12 BUN (7 - 18 mg/dL) 45 H Creatinine (0.6 - 1.3 mg/dL) 3.3 H Glomerular Filtr Rate (95 - 105) 18.7 L Glucose (70 - 110 mg/dL) 266 H POC Glucose (70 - 110 MG/DL) 258 H 234 H 244 H 269 H Calcium (8.0 - 10.5 mg/dL) 8.1 Phosphorus (2.5 - 4.9 MG/DL) 2.2 L Magnesium (1.80 - 2.40 mg/dL) 1.84 Albumin (3.4 - 5.0 g/dL) 2.30 L 10/10 10/10 10/10 10/10 10/09 0323 0200 0038 0000 2309 Chemistry Sodium (134 - 147 mEq/L) 137 Potassium (3.4 - 5.0 mEq/L) 3.7 Chloride (100 - 108 mEq/L) 105 Carbon Dioxide (21 - 33 mEq/l) 25 Anion Gap (0 - 20) 11 BUN (7 - 18 mg/dL) 44 H Creatinine (0.6 - 1.3 mg/dL) 3.3 H Glomerular Filtr Rate (95 - 105) 18.7 L Glucose (70 - 110 mg/dL) 302 H POC Glucose (70 - 110 MG/DL) 263 H 264 H 265 H 272 H Calcium (8.0 - 10.5 mg/dL) 8.1 Phosphorus (2.5 - 4.9 MG/DL) 1.3 L Magnesium (1.80 - 2.40 mg/dL) 1.90 Albumin (3.4 - 5.0 g/dL) 2.40 L 10/09 10/09 10/09 2234 2136 2027 Chemistry POC Glucose (70 - 110 MG/DL) 275 H 270 H 323 H Laboratory Tests 10/10 0405 Hematology WBC (4.5 - 11.0 x10 3/uL) 16.6 H RBC (3.54 - 5.02 x10 6/uL) 3.06 L Hgb (11.0 - 15.0 g/dL) 8.1 L Hct (33.0 - 45.0 %) 23.4 L MCV (81.0 - 99.0 fL) 76.5 L MCH (27.0 - 33.0 pg) 26.5 L MCHC (33.0 - 37.0 g/dL) 34.6 RDW (11.5 - 14.5 %) 14.0 Plt Count (150 - 400 x10 3/uL) 224 MPV (7.0 - 9.0 fL) 11.9 H Neut % (Auto) (56.0 - 77.0 %) 74.4 Lymph % (Auto) (14.0 - 32.0 %) 12.1 L [place] % (Auto) (4.8 - 9.0 %) 11.0 H Eos % (Auto) (0.3 - 3.7 %) 0.0 L Baso % (Auto) (0.0 - 2.0 %) 0.1 Neut # (Auto) (2.0 - 7.6 x10 3/uL) 12.34 H Lymph # (Auto) (1.0 - 3.8 x10 3/uL) 2.01 [place] # (Auto) (0.1 - 0.8 x10 3/uL) 1.83 H Eos # (Auto) (0.0 - 0.2 x10 3/uL) 0.00 Baso # (Auto) (0.0 - 0.2 x10 3/uL) 0.02 Abs Immat Gran (auto) (0.00 - 0.03 x10 3/uL) 0. 40 H Add Manual Diff NO Immature Gran % (0.0 - 2.0 %) 2.4 H Nucleated RBC % (0 - 0 %) 0.7 H Nucleated RBCs # (Man) (0.0 - 0.1 x10 3/uL) 0.1 2 H Laboratory Tests 10/10 1755 Urines Urine Color (YEL/STRAW) YELLOW Urine Appearance (CLEAR) CLOUDY H Urine pH (5.0 - 7.0) 5.0 Ur Specific [place] (1.005 - 1.030) 1.009 Urine Protein (NEGATIVE) 1+ H Urine Glucose (UA) (NEGATIVE) 2+ H Urine Ketones (NEGATIVE) TRACE H Urine Blood (NEGATIVE) 2+ H Urine Nitrite (NEGATIVE) NEGATIVE Urine Bilirubin (NEGATIVE) NEGATIVE Urine Urobilinogen (0.2 - 1.0 mg/dL) 0.2 Ur Leukocyte Esterase (NEGATIVE) 3+ H Urine RBC (0 - 3 RBC/HPF) 21-50 Urine WBC (0 - 3 WBC/HPF) 21-50 H Ur Squamous Epith Cells (NONE SEEN /HPF) 0-5 Urine Bacteria (NONE SEEN /HPF) 1+ H Urine Mucus (NONE SEEN /LPF) TRACE Microbiology Date/Time Procedure - Status Source Growth 10/10 0000 MRSA DNA Surveillance Screen - COMP NASAL Radiology data: Recent Impressions: RADIOLOGY - XR CHEST 1 V 10/10 0857 Report Impression - Status: SIGNED Entered: 10/10/2021 0916 IMPRESSION: Stable radiographic appearance of the chest. Impression By: [email or web address] - Esau Gary Diagnosis, Assessment Plan Free Text DxA P Notes Free text DxA P notes: Assessment: DKA: A1c more than 14 On insulin drip Endocrine consult Acute respiratory failure: Intubated for airway protection, sedated Failed CPAP trial 10/10 ICC on board Sepsis: Leukocytosis, tachycardia, JAYLEEN, UA positive for UTI, bilateral foot wounds, low blood pressure Blood culture, urine culture, wound culture, la ctic acid Pharmacy consult for vancomycin dosage adjustme nt Rocephin ID consult Wound care nurse consult for bilateral foot wou nd Awaiting podiatry recommendation for infected b ilateral foot wounds JAYLEEN: Likely secondary to above causes. Patient also received Lasix today 10/10 Renal consult IV fluid hydration Avoid nephrotoxic drugs Renal ultrasound COVID 19 infection: Patient did not have respiratory distress on ad mission, intubated for airway protection Hyponatremia from osmotic hyperglycemia: Corrected sodium is elevated in hyperna tremic range due to severe dehydration Monitor lab -heparin for DVT prophylaxis Tube feeding [place] in place Disposition: Awaiting renal, ID recommendation. On IV antibiotic. Intubated, sedated. Failed CPAP trial today. Continue ICU c are. Quality: Gen Med Crit Care VTE Prophylaxis VTE prophylaxis initiated: yes Current Medications Current medication review: I attest that the foregoing medication list in t medical record is true, accurate, and complete to the best of my knowled ge. Electronically Signed by Laura Trinh MD on 2 at 2011 Addendum 1: 10/10/212116 by Laura Trinh MD acute encephalopathy: -due to above causes -treat underlying causes Electronically Signed by Laura Trinh MD on 2 at 211 RPT #:[id number] END OF REPORT 2021-10-09 15:37:00-00:00 [facility] Hospitalist Progress Note REPORT#:[id number] REPORT STATUS: Signed DATE:10/09/21 TIME: 1536 PATIENT: HARLEEN MANZANO UNIT #: [id number] ROOM/BED: [place] [address] : 80 AGE: 40 SEX: F ATTEND: James Teran MD ADM AUTHOR: Gilberto Siegel DO * ALL edits or amendments must be made on the [email or web address] document * Subjective Comments: Patient seen and examined, remains intub ated. Discussed case with RN. Still on insulin drip. Objective General VS/I O: Vital Signs: Date Time Temp Pulse Resp B/P B/P Pulse O2 O2 F low FiO2 Mean Ox Delivery Rate 10/09 1309 126 100 35 10/09 1200 98.2 122 19 10/09 0809 100 Ventilator 40 10/09 0809 130 100 40 10/09 0800 98.3 128 19 130/63 85 40 Ventilator 15.0 100 07/01 0700 98.8 117 19 114/59 80 100 07/01 0650 99.0 116 18 114/57 78 100 07/01 0640 99.0 118 18 114/60 81 100 07/01 0630 98.8 116 18 109/58 77 100 07/01 0620 98.8 117 18 113/58 80 100 07/01 0610 98.8 117 18 115/58 81 100 07/01 0600 98.8 116 18 113/58 80 100 07/01 0550 98.8 113 18 108/57 77 99 07/01 0540 98.8 113 18 107/57 78 99 07/01 0530 98.8 113 18 102/56 76 99 07/01 0520 98.8 114 18 99/54 73 99 07/01 0510 98.6 116 18 113/58 81 99 07/01 0500 98.6 115 18 110/59 81 99 07/01 0450 98.6 115 18 107/59 79 99 07/01 0440 98.6 116 16 107/57 75 100 07/01 0430 98.6 117 17 110/55 77 100 07/01 0420 98.6 117 17 111/57 80 100 07/01 0410 98.6 115 16 119/61 82 100 07/01 0400 98.6 118 16 113/59 82 99 07/01 0340 98.4 119 16 109/59 80 100 07/01 0330 98.4 119 16 112/57 82 100 07/01 0320 98.4 120 18 111/56 75 100 07/01 0319 62 100 50 07/01 0310 98.4 120 14 107/59 76 100 07/01 0300 98.4 120 16 100/59 77 100 07/01 0259 122 100 40 07/01 0250 98.2 120 16 98/53 69 100 07/01 0240 98.2 120 15 101/58 75 100 07/01 0230 98.1 120 11 104/57 77 100 07/01 0220 97.7 120 16 107/58 78 100 07/01 0210 97.5 120 16 105/57 78 100 07/01 0200 97.3 119 16 104/56 76 100 07/01 0150 97.0 119 16 107/55 73 100 07/01 0140 96.8 119 16 102/56 75 100 07/01 0130 96.6 116 15 91/53 70 100 07/01 0120 96.4 117 15 105/57 73 100 07/01 0110 96.1 116 13 101/59 78 100 07/01 0100 95.9 118 13 114/62 82 100 07/01 0050 95.7 117 13 128/61 86 100 07/01 0040 95.4 117 13 125/63 85 100 07/01 0030 95.2 116 13 125/65 88 100 07/01 0020 95.0 115 14 114/65 83 100 07/01 0010 94.8 113 13 115/64 84 100 07/01 0000 Ventilator 40 07/01 0000 94.6 114 13 120/61 86 100 06/30 2350 94.5 113 13 124/62 85 100 06/30 2340 94.5 112 15 120/65 86 100 06/30 2330 94.5 115 14 118/65 83 100 06/30 2324 94.5 119 37 100 06/30 2320 94.5 116 18 119/61 84 100 06/30 2312 116 26 109/56 77 100 06/30 2200 112 15 102/53 74 100 06/30 2130 110 15 107/59 79 100 06/30 2100 110 17 104/57 76 100 06/30 2049 110 100 100 06/30 2048 110 20 104/57 72 100 Ventilator 24 hour I O ending at 0700: 07/ 0700 10/08 1900 Intake Total 770.00 Output Total 700 Balance 70.00 Intake, IV 770.00 Output, Urine 700 Patient 162.273 kg Weight Weight Estimated Measurement Method PATIENT WEIGHT: Weight (lb): 366 Weight (oz): 13.59 Weight (kg): 166.400 Medications: Active Meds + DC'd Last 24 Hrs Heparin Sodium (HEPARIN 5000 UNITS/ML) 5,000 UNI T Q8H SUBQ Potassium Chloride (KCL 10MEQ/SWFI 50ML) 50 ML Q 1H IV Lactated Ringer's (LACTATED RINGERS) 1,000 ML DIAZ EVANGELINA IV Propofol (DIPRIVAN 1,000MG/100ML) 100 ML TITRATE IV (CKD) Albumin Human (ALBUMINAR 5% 12.5GM/250ML) 250 ML Q30M IV (DC) Lactated Ringer's (LACTATED RINGERS) 1,000 ML DIAZ EVANGELINA IV Azithromycin (ZITHROMAX) 250 MG DAILY FEED-TUBE Dexamethasone Sodium Phosphate (DECADRON) 6 MG D AILY IV (DC) Enoxaparin Sodium (lovENOX) 30 MG Q24H SUBQ (DC) Famotidine (PEPCID) 20 MG Q12HR IV Fentanyl Citrate (Fentanyl 2,500MCG/NS 250ML) 25 0 ML ASDIR IV (CKD) Fentanyl Citrate (fentaNYL 500MCG/NS 50ML) 50 ML ASDIR IV (DC) Ceftriaxone Sodium (ROCEPHIN 1000MG VIAL) 1,000 MG Q24H IV Sodium Chloride (SODIUM CHLORIDE) 10 ML Mupirocin (BACTROBAN 2% 22 GM OINTMENT) 1 APPLIC BID NASAL Sodium Bicarbonate (SODIUM BICARBONATE) 150 ML Q 11H IV (CKD) Dextrose/Water (DEXTROSE 5% WATER) 1,000 ML Dextrose/Water (DEXTROSE 50% W SYRINGE) 50 ML DIR PRN IV (CKD) Dextrose/Water (Dextrose 10% W) 1,000 ML ASDIR I V Fentanyl Citrate (fentaNYL 500MCG/NS 50ML) 200 M CG TITRATE IV (CAN) Insulin Human Regular (HumuLIN R) 100 UNIT ASDIR IV (CKD) Sodium Chloride (SODIUM CHLORIDE 0.9%) 99 ML Magnesium Sulfate (MAGNESIUM SULFATE 2GM/SWFI 50 ML) 50 ML ASDIR PRN IV Magnesium Sulfate (MAGNESIUM SULFATE 4GM/SWFI 10 0ML) 100 ML ASDIR PRN IV Potassium Chloride (POTASSIUM CHLORIDE 20MEQ TAB .ER) 20 MEQ ASDIR PRN PO Potassium Chloride (POTASSIUM CHLORIDE 20MEQ TAB .ER) 40 MEQ ASDIR PRN PO Potassium Chloride (POTASSIUM CHLORIDE 20MEQ TAB .ER) 60 MEQ ASDIR PRN PO (CKD) Potassium Chloride (KCL 20MEQ/SWFI 100ML) 100 ML ASDIR PRN IV Potassium Phosphate (POTASSIUM PHOSPHATE) 15 MM ASDIR PRN IV Sodium Chloride (SODIUM CHLORIDE 0.9%) 250 ML Physical Exam General appearance: altered mental status, respi ratory support Head/Eyes: normocephalic ENT: intubated Neck: no JVD Cardiovascular: tachycardic, normal heart sounds , regular rate rhythm Respiratory: aerating well, clear to auscultatio n, symmetric expansion Abdomen: non-tender, normal bowel sounds, soft, no distention 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 Skin: dry Results Findings/Data: Laboratory Tests 10/090 5 Blood Gas Puncture Site R Radial R Radial O2 Saturation (90 - 100 %) 99.6 99.9 ABG pH (7.35 - 7.45) 7.223 *L < 6.999 *L ABG pCO2 (35.0 - 45 mmHg) 29.3 *L 32.3 L ABG pO2 (80 - 100.0 mmHg) 217.6 *H 546.0 *H ABG PO2/FiO2 Ratio (mm/Hg) 544.00 546.00 ABG HCO3 (22.0 - 26.0 MMOL/L) 12.1 *L 6.8 *L ABG Total CO2 13.0 7.8 ABG Base Excess (-4.0 - 4.0 MMOL/L) -15.6 L -25 .6 L ABG Hematocrit (33.0 - 45.0 %) 38 ABG Hemoglobin (11.0 - 15.0 G/DL) 13.0 Sintia Test Positive Positive Sodium (134 - 147 MEQ/L) 133 L Potassium (3.4 - 5.0 MEQ/L) 4.5 Chloride (100 - 108 MEQ/L) 108 Ionized Calcium (1.12 - 1.32 MMOL/L) 1.25 Lactic Acid (0.9 - 1.7 mmol/l) 1.5 Temperature (F) 98.6 O2 Delivery Device Adult Vent Adult Vent Vent Mode AC AC Vent Rate (/MIN) 18 18 FiO2 (%) 40 100 Tidal Volume (ml) 500 500 PEEP (cmH2O) 5 5 Laboratory Tests 10/09 10/09 10/09 10/09 10/09 1438 1345 1257 1100 1016 Chemistry Sodium (134 - 147 mEq/L) 137 Potassium (3.4 - 5.0 mEq/L) 3.0 L Chloride (100 - 108 mEq/L) 104 Carbon Dioxide (21 - 33 mEq/l) 22 Anion Gap (0 - 20) 14 BUN (7 - 18 mg/dL) 48 H Creatinine (0.6 - 1.3 mg/dL) 3.4 H Glomerular Filtr Rate (95 - 105) 18.1 L Glucose (70 - 110 mg/dL) 441 H POC Glucose (70 - 110 MG/DL) 383 H 398 H 503 H 501 H Calcium (8.0 - 10.5 mg/dL) 8.6 Phosphorus (2.5 - 4.9 MG/DL) 0.7 L Magnesium (1.80 - 2.40 mg/dL) 1.54 L Albumin (3.4 - 5.0 g/dL) 2.50 L 10/09 10/09 10/09 10/09 10/09 0615 0615 0612 0241 0142 Chemistry Sodium (134 - 147 mEq/L) 137 Potassium (3.4 - 5.0 mEq/L) 3.0 L Chloride (100 - 108 mEq/L) 104 Carbon Dioxide (21 - 33 mEq/l) 18 L Anion Gap (0 - 20) 18 BUN (7 - 18 mg/dL) 47 H Creatinine (0.6 - 1.3 mg/dL) 3.2 H Glomerular Filtr Rate (95 - 105) 19.4 L Glucose (70 - 110 mg/dL) 687 *H POC Glucose (70 - 110 MG/DL) > 600 H > 600 H > 600 H Hemoglobin A1c (4.8 - 6.0 %A1C) > 14.0 H Calcium (8.0 - 10.5 mg/dL) 8.3 Phosphorus (2.5 - 4.9 MG/DL) 1.3 L Magnesium (1.80 - 2.40 mg/dL) 1.65 L Albumin (3.4 - 5.0 g/dL) 2.40 L 10/09 10/08 10/08 10/08 10/08 0042 2340 2207 2108 2108 Chemistry Sodium (134 - 147 mEq/L) 130 L Potassium (3.4 - 5.0 mEq/L) 4.3 Chloride (100 - 108 mEq/L) 99 L Carbon Dioxide (21 - 33 mEq/l) < 10 L Anion Gap (0 - 20) TNP BUN (7 - 18 mg/dL) 40 H Creatinine (0.6 - 1.3 mg/dL) 2.8 H Glomerular Filtr Rate (95 - 105) 22.6 L Glucose (70 - 110 mg/dL) 903 *H POC Glucose (70 - 110 MG/DL) > 600 H > 600 H > 600 H Lactic Acid (0.4 - 1.9 mmol/L) 1.3 Calcium (8.0 - 10.5 mg/dL) 8.5 Phosphorus (2.5 - 4.9 MG/DL) 7.1 H Magnesium (1.80 - 2.40 mg/dL) 2.02 Total Bilirubin (0.0 - 1.0 mg/dL) 0.60 AST (15 - 37 IUnit/L) 29 ALT (30 - 65 IUnit/L) 15 L Total Alk Phosphatase (20 - 125 126 H IUnit/L) Total Protein (6.4 - 8.2 g/dL) 6.7 Albumin (3.4 - 5.0 g/dL) 2.50 L 10/08 2054 Chemistry POC Creatinine (0.6 - 1.0 mg/dL) 2.3 H Laboratory Tests 10/09 2107 Hematology WBC (4.5 - 11.0 x10 3/uL) 22.6 H RBC (3.54 - 5.02 x10 6/uL) 4.15 Hgb (11.0 - 15.0 g/dL) 10.9 L Hct (33.0 - 45.0 %) 35.7 MCV (81.0 - 99.0 fL) 86.0 MCH (27.0 - 33.0 pg) 26.3 L MCHC (33.0 - 37.0 g/dL) 30.5 L RDW (11.5 - 14.5 %) 14.4 Plt Count (150 - 400 x10 3/uL) 315 MPV (7.0 - 9.0 fL) 12.3 H Neut % (Auto) (56.0 - 77.0 %) 52.6 L Lymph % (Auto) (14.0 - 32.0 %) 10.5 L [place] % (Auto) (4.8 - 9.0 %) 3.6 L Eos % (Auto) (0.3 - 3.7 %) 30.4 H Baso % (Auto) (0.0 - 2.0 %) 0.2 Neut # (Auto) (2.0 - 7.6 x10 3/uL) 11.89 H Lymph # (Auto) (1.0 - 3.8 x10 3/uL) 2.37 [place] # (Auto) (0.1 - 0.8 x10 3/uL) 0.82 H Eos # (Auto) (0.0 - 0.2 x10 3/uL) 6.87 H Baso # (Auto) (0.0 - 0.2 x10 3/uL) 0.04 Abs Immat Gran (auto) (0.00 - 0.03 x10 3/uL) 0 .60 H Add Manual Diff NO Immature Gran % (0.0 - 2.0 %) 2.7 H Nucleated RBC % (0 - 0 %) 0.1 H Nucleated RBCs # (Man) (0.0 - 0.1 x10 3/uL) 0.0 2 Radiology data: Recent Impressions: RADIOLOGY - XR CHEST 1 V 10/08 2149 Report Impression - Status: SIGNED Entered: 10/08/20212220 IMPRESSION: 1. An endotracheal tube terminates 5.1 cm above the watson. 2. An enteric tube enters the stomach and extend s beyond the field of view. 3. A right neck access central venous catheter t erminates in the superior vena cava similar to prior. 4. There is no acute cardiopulmonary process. Impression By: [email or web address] - Mark De Leon D.O. Diagnosis, Assessment Plan Free Text DxA P Notes Free text DxA P notes: Assessment: -DKA -Acute respiratory failure: - SARS-CoV2 PNA -JAYLEEN -Reactive leukocytosis -Hyponatremia from osmotic hyperglycemia. Correc kennedy sodium is elevated in hypernatremic range due to severe dehydration. Plan: -Continue ICU management in the ICU keep n.p.o., IV hydration, insulin drip and replace electrolytes as per DKA protocol. -Podiatry and endocrinology evaluation -Ceftriaxone and azithromycin. -Mechanical ventilation as per weight inspector. -Provide stress ulcer prophylaxis and VTE prophy laxis Electronically Signed by Gilberto Siegel DO on 05/02 at 1539 [facility] #:[id number] END OF REPORT 2021-10-09 14:20:00-00:00 [facility] Critical Care Progress Note REPORT#:[id number] REPORT STATUS: Signed DATE:10/09/21 TIME: 0 PATIENT: HARLEEN MANZANO UNIT #: [id number] ROOM/BED: [place] [address] : 80 AGE: 40 SEX: F ATTEND: James Teran MD ADM AUTHOR: Greg Mallory MD * ALL edits or amendments must be made on the [employer]/computer document * Subjective Chief complaint: AMS HPI: she has PMH morbid obesity and DM1 presents to [place] ER with complaints of clarissa rgy and weakness, nausea and vomiting. noted to have gluc ose >1000 and finding of COVID as well. poor history due to patient mental status and she was intubat ed for airway protection. due to bed capacity transferred to our facility for further care. she is on insulin infusion, sedated with fentany l, on levophed at low dose Comments: Interval history- Patient is waking up but not following commands yet Is making urien about 25cc/hr Anion gap improving Objective General VS/I O Last Documented: Result Date Time Pulse Ox 100 10/09 1309 FiO2 35 10/09 1309 Pulse 126 10/09 1309 Temp 36.8 10/09 1200 Resp 19 10/09 1200 O2 Delivery Ventilator 10/09 0809 B/P 130/63 10/09 0800 B/P Mean 85 10/09 0800 O2 Flow Rate 15.0 10/09 0800 24 hour I O ending at 0700: 10/09 0700 10/08 1900 Intake Total 770.00 Output Total 700 Balance 70.00 Intake, IV 770.00 Output, Urine 700 Patient 162.273 kg Weight Weight Estimated Measurement Method PATIENT WEIGHT: Weight (lb): 366 Weight (oz): 13.59 Weight (kg): 166.400 Medications: Active Meds + DC'd Last 24 Hrs Heparin Sodium (HEPARIN 5000 UNITS/ML) 5,000 UNI T Q8H SUBQ Lactated Ringer's (LACTATED RINGERS) 1,000 ML DIAZ EVANGELINA IV Propofol (DIPRIVAN 1,000MG/100ML) 100 ML TITRATE IV (UNV) Albumin Human (ALBUMINAR 5% 12.5GM/250ML) 250 ML Q30M IV Lactated Ringer's (LACTATED RINGERS) 1,000 ML DIAZ EVANGELINA IV Azithromycin (ZITHROMAX) 250 MG DAILY FEED-TUBE Dexamethasone Sodium Phosphate (DECADRON) 6 MG D AILY IV (DC) Enoxaparin Sodium (lovENOX) 30 MG Q24H SUBQ (DC ) Famotidine (PEPCID) 20 MG Q12HR IV Fentanyl Citrate (Fentanyl 2,500MCG/NS 250ML) 25 0 ML ASDIR IV (CKD) Fentanyl Citrate (fentaNYL 500MCG/NS 50ML) 50 ML ASDIR IV (DC) Ceftriaxone Sodium (ROCEPHIN 1000MG VIAL) 1,000 MG Q24H IV Sodium Chloride (SODIUM CHLORIDE) 10 ML Mupirocin (BACTROBAN 2% 22 GM OINTMENT) 1 APPLIC BID NASAL Sodium Bicarbonate (SODIUM BICARBONATE) 150 ML Q 11H IV (CKD) Dextrose/Water (DEXTROSE 5% WATER) 1,000 ML Dextrose/Water (DEXTROSE 50% W SYRINGE) 50 ML DIR PRN IV (CKD) Dextrose/Water (Dextrose 10% W) 1,000 ML ASDIR I V Fentanyl Citrate (fentaNYL 500MCG/NS 50ML) 200 M CG TITRATE IV (CAN) Insulin Human Regular (HumuLIN R) 100 UNIT ASDIR IV (CKD) Sodium Chloride (SODIUM CHLORIDE 0.9%) 99 ML Magnesium Sulfate (MAGNESIUM SULFATE 2GM/SWFI 50 ML) 50 ML ASDIR PRN IV Magnesium Sulfate (MAGNESIUM SULFATE 4GM/SWFI 10 0ML) 100 ML ASDIR PRN IV Potassium Chloride (POTASSIUM CHLORIDE 20MEQ TAB .ER) 20 MEQ ASDIR PRN PO Potassium Chloride (POTASSIUM CHLORIDE 20MEQ TAB .ER) 40 MEQ ASDIR PRN PO Potassium Chloride (POTASSIUM CHLORIDE 20MEQ TAB .ER) 60 MEQ ASDIR PRN PO (CKD) Potassium Chloride (KCL 20MEQ/SWFI 100ML) 100 ML ASDIR PRN IV Potassium Phosphate (POTASSIUM PHOSPHATE) 15 MM ASDIR PRN IV Sodium Chloride (SODIUM CHLORIDE 0.9%) 250 ML Results Findings/data: Laboratory Tests 10/09 Blood Gas Puncture Site R Radial R Radial O2 Saturation (90 - 100 %) 99.6 99.9 ABG pH (7.35 - 7.45) 7.223 *L < 6.999 *L ABG pCO2 (35.0 - 45 mmHg) 29.3 *L 32.3 L ABG pO2 (80 - 100.0 mmHg) 217.6 *H 546.0 *H ABG PO2/FiO2 Ratio (mm/Hg) 544.00 546.00 ABG HCO3 (22.0 - 26.0 MMOL/L) 12.1 *L 6.8 *L ABG Total CO2 13.0 7.8 ABG Base Excess (-4.0 - 4.0 MMOL/L) -15.6 L -25 .6 L ABG Hematocrit (33.0 - 45.0 %) 38 ABG Hemoglobin (11.0 - 15.0 G/DL) 13.0 Sintia Test Positive Positive Sodium (134 - 147 MEQ/L) 133 L Potassium (3.4 - 5.0 MEQ/L) 4.5 Chloride (100 - 108 MEQ/L) 108 Ionized Calcium (1.12 - 1.32 MMOL/L) 1.25 Lactic Acid (0.9 - 1.7 mmol/l) 1.5 Temperature (F) 98.6 O2 Delivery Device Adult Vent Adult Vent Vent Mode AC AC Vent Rate (/MIN) 18 18 FiO2 (%) 40 100 Tidal Volume (ml) 500 500 PEEP (cmH2O) 5 5 Laboratory Tests 10/09 10/09 10/09 10/09 10/09 1438 1345 1257 1100 1016 Chemistry Sodium (134 - 147 mEq/L) 137 Potassium (3.4 - 5.0 mEq/L) 3.0 L Chloride (100 - 108 mEq/L) 104 Carbon Dioxide (21 - 33 mEq/l) 22 Anion Gap (0 - 20) 14 BUN (7 - 18 mg/dL) 48 H Creatinine (0.6 - 1.3 mg/dL) 3.4 H Glomerular Filtr Rate (95 - 105) 18.1 L Glucose (70 - 110 mg/dL) 441 H POC Glucose (70 - 110 MG/DL) 383 H 398 H 503 H 501 H Calcium (8.0 - 10.5 mg/dL) 8.6 Phosphorus (2.5 - 4.9 MG/DL) 0.7 L Magnesium (1.80 - 2.40 mg/dL) 1.54 L Albumin (3.4 - 5.0 g/dL) 2.50 L 10/09 10/09 10/09 10/09 10/09 0615 0615 0612 0241 0142 Chemistry Sodium (134 - 147 mEq/L) 137 Potassium (3.4 - 5.0 mEq/L) 3.0 L Chloride (100 - 108 mEq/L) 104 Carbon Dioxide (21 - 33 18 L mEq/l) Anion Gap (0 - 20) 18 BUN (7 - 18 mg/dL) 47 H Creatinine (0.6 - 1.3 mg/dL) 3.2 H Glomerular Filtr Rate (95 - 19.4 L 105) Glucose (70 - 110 mg/dL) 687 *H POC Glucose (70 - 110 MG/DL) > 600 H > 600 H > 600 H Hemoglobin A1c (4.8 - 6.0 > 14.0 H %A1C) Calcium (8.0 - 10.5 mg/dL) 8.3 Phosphorus (2.5 - 4.9 MG/DL) 1.3 L Magnesium (1.80 - 2.40 1.65 L mg/dL) Albumin (3.4 - 5.0 g/dL) 2.40 L 10/09 10/08 10/08 10/08 0042 2340 2206 2107 Chemistry POC Glucose (70 - 110 MG/DL) > 600 H > 600 H > 600 H Lactic Acid (0.4 - 1.9 mmol/L) 1.3 10/08 Chemistry Sodium (134 - 147 mEq/L) 130 L Potassium (3.4 - 5.0 mEq/L) 4.3 Chloride (100 - 108 mEq/L) 99 L Carbon Dioxide (21 - 33 mEq/l) < 10 L Anion Gap (0 - 20) TNP BUN (7 - 18 mg/dL) 40 H Creatinine (0.6 - 1.3 mg/dL) 2.8 H POC Creatinine (0.6 - 1.0 mg/dL) 2.3 H Glomerular Filtr Rate (95 - 105) 22.6 L Glucose (70 - 110 mg/dL) 903 *H Calcium (8.0 - 10.5 mg/dL) 8.5 Phosphorus (2.5 - 4.9 MG/DL) 7.1 H Magnesium (1.80 - 2.40 mg/dL) 2.02 Total Bilirubin (0.0 - 1.0 mg/dL) 0.60 AST (15 - 37 IUnit/L) 29 ALT (30 - 65 IUnit/L) 15 L Total Alk Phosphatase (20 - 125 IUnit/L) 126 H Total Protein (6.4 - 8.2 g/dL) 6.7 Albumin (3.4 - 5.0 g/dL) 2.50 L Laboratory Tests 10/09 2107 Hematology WBC (4.5 - 11.0 x10 3/uL) 22.6 H RBC (3.54 - 5.02 x10 6/uL) 4.15 Hgb (11.0 - 15.0 g/dL) 10.9 L Hct (33.0 - 45.0 %) 35.7 MCV (81.0 - 99.0 fL) 86.0 MCH (27.0 - 33.0 pg) 26.3 L MCHC (33.0 - 37.0 g/dL) 30.5 L RDW (11.5 - 14.5 %) 14.4 Plt Count (150 - 400 x10 3/uL) 315 MPV (7.0 - 9.0 fL) 12.3 H Neut % (Auto) (56.0 - 77.0 %) 52.6 L Lymph % (Auto) (14.0 - 32.0 %) 10.5 L [place] % (Auto) (4.8 - 9.0 %) 3.6 L Eos % (Auto) (0.3 - 3.7 %) 30.4 H Baso % (Auto) (0.0 - 2.0 %) 0.2 Neut # (Auto) (2.0 - 7.6 x10 3/uL) 11.89 H Lymph # (Auto) (1.0 - 3.8 x10 3/uL) 2.37 [place] # (Auto) (0.1 - 0.8 x10 3/uL) 0.82 H Eos # (Auto) (0.0 - 0.2 x10 3/uL) 6.87 H Baso # (Auto) (0.0 - 0.2 x10 3/uL) 0.04 Abs Immat Gran (auto) (0.00 - 0.03 x10 3/uL) 0. 60 H Add Manual Diff NO Immature Gran % (0.0 - 2.0 %) 2.7 H Nucleated RBC % (0 - 0 %) 0.1 H Nucleated RBCs # (Man) (0.0 - 0.1 x10 3/uL) 0. 02 Laboratory Tests 10/09/21 1345: [Embedded Image Not Available] 10/09/21 0615: [Embedded Image Not Available] 10/08/218: [Embedded Image Not Available] Microbiology: 10/08 2217 BLOOD: Blood Culture - CAN Cancelled: DUPLICATE ORDER 10/08 2217 BLOOD: Blood Culture - CAN Cancelled: DUPLICATE ORDER 10/09 2107 BLOOD: Blood Culture - RECD 10/09 2107 BLOOD: Blood Culture - RECD Radiology data Recent Impressions: RADIOLOGY - XR CHEST 1 V 10/08 2149 Report Impression - Status: SIGNED Entered: 10/08/20212220 IMPRESSION: 1. An endotracheal tube terminates 5.1 cm above the watson. 2. An enteric tube enters the stomach and extend s beyond the field of view. 3. A right neck access central venous catheter t erminates in the superior vena cava similar to prior. 4. There is no acute cardiopulmonary process. Impression By: [email or web address] - Mark De Leon D.O. Free Text Obj Notes Free Text Obj Notes: Gen: intubated, sedated HEENT: no lymphadenopathy, no masses CVS: S1S2, RRR Resp: bilateral crackles, equal air entry bilate rally Gastro: non-distended, no organomegaly, BS reduc ed Lymphatics: trace LE edema, distal pulses palpab le Skin: no visible ulcerations or lacerations Neuro: gag and cough. Moving all extremities Diagnosis, Assessment Plan Problem list/A P: 1. DKA (diabetic ketoacidosis) 2. Respiratory failure 3. COVID 4. JAYLEEN (acute kidney injury) 5. Hyperkalemia 6. Severe sepsis 7. Metabolic encephalopathy Free text A P: she presents with AMS and severe DKA with acidos is and signs of severe sepsis given aggressive IVF resuscitation on insulin infusion therapy per protocol aggressive electrolyte replacement due to severe acidosis,reduce bicarb drip to 50c c/hr HBA1c >14 with concurrent encephalopathy maintain sedation for ventilator synchrony, on f entanyl and propofol outside CT head negative for acute findings presumed sepsis present on admission check cultures initial lactic WNL trend WBC empiric rocephin concurrent COVID 19 Likely incidental. With very low minimum vent se ttings. We will hold off on the steroids or remdesivir. monitor UOP closely Making urine but worsening BUN and creatinine. W ill give 2 L of LR bolus and albumin. DVT/GI prophylaxis Total critical care time 35-minute Electronically Signed by Greg Mallory MD on 0 10/09/21 at 1455 RPT #:[id number] END OF REPORT 2021-10-09 02:02:00-00:00 [facility] Hospitalist History Physical REPORT#:[id number] REPORT STATUS: Signed DATE:10/09/21 TIME: 0202 PATIENT: HARLEEN MANZANO UNIT #: [id number] ROOM/BED: [place] [address] : 80 AGE: 40 SEX: F ATTEND: James Teran MD ADM AUTHOR: Emilie Ferguson MD * ALL edits or amendments must be made on the [email or web address] document * History of Present Illness HPI Chief complaint: Altered mental status PCP: PCP: No Primary or Family Physician HPI: 40-year-old female with past medical history sig nificant for diabetes who was found unresponsive by her daughter for u nknown period of time. Her GCS was low in ER and glucose was above thousand, serum CO2 was 9 and WBC 20 1K. Patient was resuscitated, intubated and central line was placed in ED. History Past Medical Surgical Hx Additional medical history: anemia Additional surgical history: right hip Social History Smoking status: Smoking status for patients 13 years old or old er: Unknown,if ever smoked Medication/Allergy-Vaccine Hx Allergies: Coded Allergies: Sulfa (Sulfonamide Antibiotics) (Mild, HIVES ) Review of Systems Unable to obtain due to: She is currently sedated and intubated. Physical Exam VS/I O: Vital Signs Date Temp Pulse Resp B/P B/P Mean Pulse Ox FiO2 10/08-10/09 94.5-98.2 110-120 11-37 91-128/53-65 70-88 100 40-100 Last Documented: Result Date Time Pulse Ox 100 10/09 0240 B/P 101/58 10/09 0240 B/P Mean 75 / 0240 Temp 98.2 / 0240 Pulse 120 / 0240 Resp 15 10/09 0240 FiO2 40 07/ 0000 O2 Delivery Ventilator 10/09 0000 24 hour I O ending at 0700: 07/ 0700 10/08 1900 Intake Total Output Total Balance Patient 162.273 kg Weight Weight Estimated Measurement Method Patient Weight and BMI Weight (kg): 162.273 BMI: 52.8 General appearance: respiratory support Head/Eyes: normocephalic Neck: no JVD Cardiovascular: tachycardic Respiratory: aerating well Skin: dry Results Findings/Data: Laboratory Tests: 10/08 Blood Gas Puncture Site R Radial O2 Saturation (90 - 100 %) 99.9 ABG pH (7.35 - 7.45) < 6.999 *L ABG pCO2 (35.0 - 45 mmHg) 32.3 L ABG pO2 (80 - 100.0 mmHg) 546.0 *H ABG PO2/FiO2 Ratio (mm/Hg) 546.00 ABG HCO3 (22.0 - 26.0 MMOL/L) 6.8 *L ABG Total CO2 7.8 ABG Base Excess (-4.0 - 4.0 MMOL/L) -25.6 L ABG Hematocrit (33.0 - 45.0 %) 38 ABG Hemoglobin (11.0 - 15.0 G/DL) 13.0 Sintia Test Positive Sodium (134 - 147 MEQ/L) 133 L Potassium (3.4 - 5.0 MEQ/L) 4.5 Chloride (100 - 108 MEQ/L) 108 Ionized Calcium (1.12 - 1.32 MMOL/L) 1.25 Lactic Acid (0.9 - 1.7 mmol/l) 1.5 Temperature (F) 98.6 O2 Delivery Device Adult Vent Vent Mode AC Vent Rate (/MIN) 18 FiO2 (%) 100 Tidal Volume (ml) 500 PEEP (cmH2O) 5 Chemistry Sodium (134 - 147 mEq/L) 130 L Potassium (3.4 - 5.0 mEq/L) 4.3 Chloride (100 - 108 mEq/L) 99 L Carbon Dioxide (21 - 33 mEq/l) < 10 L Anion Gap (0 - 20) TNP BUN (7 - 18 mg/dL) 40 H Creatinine (0.6 - 1.3 mg/dL) 2.8 H POC Creatinine (0.6 - 1.0 mg/dL) 2.3 H Glomerular Filtr Rate (95 - 105) 22.6 L Glucose (70 - 110 mg/dL) 903 *H Lactic Acid (0.4 - 1.9 mmol/L) 1.3 Calcium (8.0 - 10.5 mg/dL) 8.5 Phosphorus (2.5 - 4.9 MG/DL) 7.1 H Magnesium (1.80 - 2.40 mg/dL) 2.02 Total Bilirubin (0.0 - 1.0 mg/dL) 0.60 AST (15 - 37 IUnit/L) 29 ALT (30 - 65 IUnit/L) 15 L Total Alk Phosphatase (20 - 125 IUnit/L) 126 H Total Protein (6.4 - 8.2 g/dL) 6.7 Albumin (3.4 - 5.0 g/dL) 2.50 L Hematology WBC (4.5 - 11.0 x10 3/uL) 22.6 H RBC (3.54 - 5.02 x10 6/uL) 4.15 Hgb (11.0 - 15.0 g/dL) 10.9 L Hct (33.0 - 45.0 %) 35.7 MCV (81.0 - 99.0 fL) 86.0 MCH (27.0 - 33.0 pg) 26.3 L MCHC (33.0 - 37.0 g/dL) 30.5 L RDW (11.5 - 14.5 %) 14.4 Plt Count (150 - 400 x10 3/uL) 315 MPV (7.0 - 9.0 fL) 12.3 H Neut % (Auto) (56.0 - 77.0 %) 52.6 L Lymph % (Auto) (14.0 - 32.0 %) 10.5 L [place] % (Auto) (4.8 - 9.0 %) 3.6 L Eos % (Auto) (0.3 - 3.7 %) 30.4 H Baso % (Auto) (0.0 - 2.0 %) 0.2 Neut # (Auto) (2.0 - 7.6 x10 3/uL) 11.89 H Lymph # (Auto) (1.0 - 3.8 x10 3/uL) 2.37 Sweet[place] # (Auto) (0.1 - 0.8 x10 3/uL) 0.82 H Eos # (Auto) (0.0 - 0.2 x10 3/uL) 6.87 H Baso # (Auto) (0.0 - 0.2 x10 3/uL) 0.04 Abs Immat Gran (auto) (0.00 - 0.03 x10 3/uL) 0. 60 H Add Manual Diff NO Immature Gran % (0.0 - 2.0 %) 2.7 H Nucleated RBC % (0 - 0 %) 0.1 H Nucleated RBCs # (Man) (0.0 - 0.1 x10 3/uL) 0.0 2 Laboratory Tests 10/08/212107: [Embedded Image Not Available] Radiology data: Recent Impressions: RADIOLOGY - XR CHEST 1 V 10/08 2149 Report Impression - Status: SIGNED Entered: 10/08/20212220 IMPRESSION: 1. An endotracheal tube terminates 5.1 cm above the watson. 2. An enteric tube enters the stomach and extend s beyond the field of view. 3. A right neck access central venous catheter t erminates in the superior vena cava similar to prior. 4. There is no acute cardiopulmonary process. Impression By: [email or web address] - Mark De Leon D.O. Diagnosis, Assessment Plan Free Text A P: Assessment: -DKA -Acute respiratory failure: - SARS-CoV2 PNA -JAYLEEN -Reactive leukocytosis -Hyponatremia from osmotic hyperglycemia. Correc kennedy sodium is elevated in hypernatremic range due to severe dehydration. Plan: -Admit to ICU. Keep n.p.o., IV hydration, start insulin IV and replace electrolytes as per DKA protocol. -Ceftriaxone and azithromycin. -Mechanical ventilation as per weight inspector. -Obtain UA, urine sodium and creatinine. -Provide stress ulcer prophylaxis and VTE prophy laxis Electronically Signed by Emilie Ferguson MD on 0 10/09/21 at 0315 RPT #:[id number] END OF REPORT 2021-10-08 22:12:00-00:00 [facility] ([facility] Critical Care Consult Note REPORT#:[id number] REPORT STATUS: Signed DATE:10/08/21 TIME: 2211 PATIENT: HARLEEN MANZANO UNIT #: [id number] ROOM/BED: [place] [id number] : 80 AGE: 40 SEX: F ATTEND: James Teran MD ADM AUTHOR: Pierre Cordero MD * ALL edits or amendments must be made on the el [employer]/computer document * History of Present Illness HPI Requesting clinician: ER Reason for consult: respiratory failure Chief complaint: AMS HPI: she has PMH morbid obesity and DM1 presents to [place] ER with complaints of clarissa rgy and weakness, nausea and vomiting. noted to have gluc ose >1000 and finding of COVID as well. poor history due to patient mental status and she was intubat ed for airway protection. due to bed capacity transferred to our facility for further care. she is on insulin infusion, sedated with fentany l, on levophed at low dose History - Adult longitudinal Past medical history: Reports: Diabetes mellitus. Additional medical history: anemia Additional surgical history: right hip Smoking status: Smoking status for patients 13 years old or old er: Unknown,if ever smoked Allergies: Coded Allergies: Sulfa (Sulfonamide Antibiotics) (Mild, HIVES ) Review of Systems ROS Unable to obtain due to: intubated Objective Physical Exam VS/I O: Last Documented: Result Date Time Pulse Ox 100 10/08 2048 FiO2 100 10/08 2048 Pulse 110 10/08 2048 B/P 104/57 10/09 2047 B/P Mean 72 10/09 2047 O2 Delivery Ventilator 10/09 2047 Resp 20 10/09 2047 Patient Weight and BMI Weight (kg): 162.273 BMI: 52.8 Medications: Active Meds + DC'd Last 24 Hrs Dexamethasone Sodium Phosphate (DECADRON) 6 MG D AILY IV (UNV) Ceftriaxone Sodium (ROCEPHIN 1000MG VIAL) 1,000 MG Q24H IV (UNV) Sodium Chloride (SODIUM CHLORIDE) 10 ML Mupirocin (BACTROBAN 2% 22 GM OINTMENT) 1 APPLIC BID NASAL Sodium Bicarbonate (SODIUM BICARBONATE) 150 ML Q 11H IV (UNV) Dextrose/Water (DEXTROSE 5% WATER) 1,000 ML Dextrose/Water (DEXTROSE 50% W SYRINGE) 50 ML DIR PRN IV (CKD) Dextrose/Water (Dextrose 10% W) 1,000 ML ASDIR I V Fentanyl Citrate (fentaNYL 500MCG/NS 50ML) 200 M CG TITRATE IV (UNV) Insulin Human Regular (HumuLIN R) 100 UNIT ASDIR IV (CKD) Sodium Chloride (SODIUM CHLORIDE 0.9%) 99 ML Magnesium Sulfate (MAGNESIUM SULFATE 2GM/SWFI 50 ML) 50 ML ASDIR PRN IV Magnesium Sulfate (MAGNESIUM SULFATE 4GM/SWFI 10 0ML) 100 ML ASDIR PRN IV Potassium Chloride (POTASSIUM CHLORIDE 20MEQ TAB .ER) 20 MEQ ASDIR PRN PO Potassium Chloride (POTASSIUM CHLORIDE 20MEQ TAB .ER) 40 MEQ ASDIR PRN PO Potassium Chloride (POTASSIUM CHLORIDE 20MEQ TAB .ER) 60 MEQ ASDIR PRN PO (CKD) Potassium Chloride (KCL 20MEQ/SWFI 100ML) 100 ML ASDIR PRN IV Potassium Phosphate (POTASSIUM PHOSPHATE) 15 MM ASDIR PRN IV Sodium Chloride (SODIUM CHLORIDE 0.9%) 250 ML Results Findings/Data: Laboratory Tests 10/08/212107: [Embedded Image Not Available] Laboratory Tests 10/08 2054 Blood Gas Puncture Site R Radial O2 Saturation (90 - 100 %) 99.9 ABG pH (7.35 - 7.45) < 6.999 *L ABG pCO2 (35.0 - 45 mmHg) 32.3 L ABG pO2 (80 - 100.0 mmHg) 546.0 *H ABG PO2/FiO2 Ratio (mm/Hg) 546.00 ABG HCO3 (22.0 - 26.0 MMOL/L) 6.8 *L ABG Total CO2 7.8 ABG Base Excess (-4.0 - 4.0 MMOL/L) -25.6 L ABG Hematocrit (33.0 - 45.0 %) 38 ABG Hemoglobin (11.0 - 15.0 G/DL) 13.0 Sintia Test Positive Sodium (134 - 147 MEQ/L) 133 L Potassium (3.4 - 5.0 MEQ/L) 4.5 Chloride (100 - 108 MEQ/L) 108 Ionized Calcium (1.12 - 1.32 MMOL/L) 1.25 Lactic Acid (0.9 - 1.7 mmol/l) 1.5 Temperature (F) 98.6 O2 Delivery Device Adult Vent Vent Mode AC Vent Rate (/MIN) 18 FiO2 (%) 100 Tidal Volume (ml) 500 PEEP (cmH2O) 5 Laboratory Tests 10/08 Chemistry Sodium (134 - 147 mEq/L) 130 L Potassium (3.4 - 5.0 mEq/L) 4.3 Chloride (100 - 108 mEq/L) 99 L Carbon Dioxide (21 - 33 mEq/l) < 10 L Anion Gap (0 - 20) TNP BUN (7 - 18 mg/dL) 40 H Creatinine (0.6 - 1.3 mg/dL) 2.8 H POC Creatinine (0.6 - 1.0 mg/dL) 2.3 H Glomerular Filtr Rate (95 - 105) 22.6 L Glucose (70 - 110 mg/dL) 903 *H Lactic Acid (0.4 - 1.9 mmol/L) 1.3 Calcium (8.0 - 10.5 mg/dL) 8.5 Phosphorus (2.5 - 4.9 MG/DL) 7.1 H Magnesium (1.80 - 2.40 mg/dL) 2.02 Total Bilirubin (0.0 - 1.0 mg/dL) 0.60 AST (15 - 37 IUnit/L) 29 ALT (30 - 65 IUnit/L) 15 L Total Alk Phosphatase (20 - 125 IUnit/L) 126 H Total Protein (6.4 - 8.2 g/dL) 6.7 Albumin (3.4 - 5.0 g/dL) 2.50 L Laboratory Tests 10/08 2108 Hematology WBC (4.5 - 11.0 x10 3/uL) 22.6 H RBC (3.54 - 5.02 x10 6/uL) 4.15 Hgb (11.0 - 15.0 g/dL) 10.9 L Hct (33.0 - 45.0 %) 35.7 MCV (81.0 - 99.0 fL) 86.0 MCH (27.0 - 33.0 pg) 26.3 L MCHC (33.0 - 37.0 g/dL) 30.5 L RDW (11.5 - 14.5 %) 14.4 Plt Count (150 - 400 x10 3/uL) 315 MPV (7.0 - 9.0 fL) 12.3 H Neut % (Auto) (56.0 - 77.0 %) 52.6 L Lymph % (Auto) (14.0 - 32.0 %) 10.5 L [place] % (Auto) (4.8 - 9.0 %) 3.6 L Eos % (Auto) (0.3 - 3.7 %) 30.4 H Baso % (Auto) (0.0 - 2.0 %) 0.2 Neut # (Auto) (2.0 - 7.6 x10 3/uL) 11.89 H Lymph # (Auto) (1.0 - 3.8 x10 3/uL) 2.37 [place] # (Auto) (0.1 - 0.8 x10 3/uL) 0.82 H Eos # (Auto) (0.0 - 0.2 x10 3/uL) 6.87 H Baso # (Auto) (0.0 - 0.2 x10 3/uL) 0.04 Abs Immat Gran (auto) (0.00 - 0.03 x10 3/uL) 0. 60 H Add Manual Diff NO Immature Gran % (0.0 - 2.0 %) 2.7 H Nucleated RBC % (0 - 0 %) 0.1 H Nucleated RBCs # (Man) (0.0 - 0.1 x10 3/uL) 0.0 2 Microbiology: 10/09 2107 BLOOD: Blood Culture - RECD 10/09 2107 BLOOD: Blood Culture - RECD Free Text Obj Notes Free Text Obj Notes: Gen: intubated, sedated HEENT: no lymphadenopathy, no masses CVS: S1S2, RRR Resp: bilateral crackles, equal air entry bilate rally Gastro: non-distended, no organomegaly, BS reduc ed Lymphatics: trace LE edema, distal pulses palpab le Skin: no visible ulcerations or lacerations Neuro: weak gag Diagnosis, Assessment Plan Diagnosis, Assessment Plan Problem list/A P: 1. DKA (diabetic ketoacidosis) 2. Respiratory failure 3. COVID 4. JAYLEEN (acute kidney injury) 5. Hyperkalemia 6. Severe sepsis 7. Metabolic encephalopathy Critical care time: Minutes: 35 Code Status/Resusc. Discussion Code status: full code Free text DxA P: she presents with AMS and severe DKA with acidos is and signs of severe sepsis given aggressive IVF resuscitation on insulin infusion therapy per protocol aggressive electrolyte replacement due to severe acidosis, start on bicarb suppleme ntation check a1c with concurrent encephalopathy maintain sedation for ventilator synchrony outside CT head negative for acute findings presumed sepsis present on admission check cultures initial lactic WNL trend WBC empiric rocephin concurrent COVID 19 unclear timeline due to respiratory failure start steroids consider ID consult due to JAYLEEN - hold remdesivir for now add bronchodilators and inhaled steroids start dexamethasone monitor UOP closely dallas catheter for close I/O in the initial phas e DVT/GI prophylaxis Electronically Signed by Pierre Cordero MD on 09/11 at 2217 RPT #:[id number] END OF REPORT 2021-10-08 21:39:00-00:00 [facility] ([facility]) EMERGENCY PROVIDER REPORT REPORT#:[id number] REPORT STATUS: Signed DATE:10/08/21 TIME: 2138 PATIENT: HARLEEN MANZANO UNIT #: [id number] ROOM/BED: [place] [address] AGE: 40 SEX: F PCP PHYS: No Primary or Family Ph ysician SERVICE AUTHOR: Mark Gorman MD * ALL edits or amendments must be made on the el [employer]/computer document * HPI-General Illness Free Text HPI Notes Free Text HPI Notes 40-year-old female, history of diabetes. Patient daughter called 911 after patient was found down, unknown period time. Dec reased level of GCS, glucose read "high". On arrival to [facility] in ER, pat ient was evaluated, resuscitated, intubated, ronald tral line placed. Found to have glucose, high sugar of greater band 1000, acidosis down to 6.7. Henrietta ent given bicarb bolus, drip, started on insulin drip, flu id resuscitation. Transferred here for ICU level of care General Initial Greet Date/Time 10/08/212051 Presentation Chief Complaint FOUND DOWN Review of Systems ROS Statements Unable to Obtain ROS Patient condition Past Medical History - Adult Stated Complaint RESP FAILURE, DKA, COVID POSITI VE Allergies Coded Allergies: Sulfa (Sulfonamide Antibiotics) (Mild, HIVES ) Home Medications Reported Medications Unable to Obtain Home Medication History Discontinued Reported Medications Insulin NPH Human Recom (NovoLIN N) Insulin Reg Human Rec (NovoLIN R) VIT/FE FUMARATE/FA ( Multivitam in w/ Iron) 1 TAB PO DAILY Past Medical History: Reports: Diabetes mellitus. Additional Medical History anemia Additional Surgical History right hip Smoking status for patients 13 years old or olde r: Unknown,if ever smoked Physical Exam Vital Signs Vital Signs First Documented: Result Date Time Pulse Ox 100 10/09 2047 B/P 104/57 10/09 2047 B/P Mean 72 10/09 2047 O2 Delivery Ventilator 10/09 2047 Pulse 110 10/09 2047 Resp 20 10/09 2047 FiO2 100 10/08 2048 Last Documented: Result Date Time Pulse Ox 100 10/08 2129 B/P 107/59 10/08 2129 B/P Mean 79 10/08 2129 Pulse 110 10/08 2129 Resp 15 10/08 2129 FiO2 100 10/08 2048 O2 Delivery Ventilator 10/09 2047 Review of Vital Signs Reviewed Physical Exam General/Const Text/Dict Notes Intubated, sedated Eyes Text/Dict Notes Pupils pinpoint, minimally reactive Ears/Nose/Throat Text/Dict Notes ET tube in place. MS Neck Text/Dict Notes Right IJ central line Resp/Chest Respiratory/Chest Breath sounds NL, Breath soun ds = bilat Cardiovascular Cardiovascular Regular rhythm, Heart sounds NL Abdomen/GI Abdomen/GI Soft, No guarding, No rebound Neurologic Text/Dict Notes GCS 3, intubated Interpretation Diagnostics Lab Results Interpretation Results Laboratory Tests 10/08/212107: [Embedded Image Not Available] Laboratory Tests: 10/08 Blood Gas Puncture Site R Radial O2 Saturation (90 - 100 %) 99.9 ABG pH (7.35 - 7.45) < 6.999 *L ABG pCO2 (35.0 - 45 mmHg) 32.3 L ABG pO2 (80 - 100.0 mmHg) 546.0 *H ABG PO2/FiO2 Ratio (mm/Hg) 546.00 ABG HCO3 (22.0 - 26.0 MMOL/L) 6.8 *L ABG Total CO2 7.8 ABG Base Excess (-4.0 - 4.0 MMOL/L) -25.6 L ABG Hematocrit (33.0 - 45.0 %) 38 ABG Hemoglobin (11.0 - 15.0 G/DL) 13.0 Sintia Test Positive Sodium (134 - 147 MEQ/L) 133 L Potassium (3.4 - 5.0 MEQ/L) 4.5 Chloride (100 - 108 MEQ/L) 108 Ionized Calcium (1.12 - 1.32 MMOL/L) 1.25 Lactic Acid (0.9 - 1.7 mmol/l) 1.5 Temperature (F) 98.6 O2 Delivery Device Adult Vent Vent Mode AC Vent Rate (/MIN) 18 FiO2 (%) 100 Tidal Volume (ml) 500 PEEP (cmH2O) 5 Chemistry Sodium (134 - 147 mEq/L) 130 L Potassium (3.4 - 5.0 mEq/L) 4.3 Chloride (100 - 108 mEq/L) 99 L Carbon Dioxide (21 - 33 mEq/l) < 10 L Anion Gap (0 - 20) TNP BUN (7 - 18 mg/dL) 40 H Creatinine (0.6 - 1.3 mg/dL) 2.8 H POC Creatinine (0.6 - 1.0 mg/dL) 2.3 H Glomerular Filtr Rate (95 - 105) 22.6 L Glucose (70 - 110 mg/dL) 903 *H Lactic Acid (0.4 - 1.9 mmol/L) 1.3 Calcium (8.0 - 10.5 mg/dL) 8.5 Phosphorus (2.5 - 4.9 MG/DL) 7.1 H Magnesium (1.80 - 2.40 mg/dL) 2.02 Total Bilirubin (0.0 - 1.0 mg/dL) 0.60 AST (15 - 37 IUnit/L) 29 ALT (30 - 65 IUnit/L) 15 L Total Alk Phosphatase (20 - 125 IUnit/L) 126 H Total Protein (6.4 - 8.2 g/dL) 6.7 Albumin (3.4 - 5.0 g/dL) 2.50 L Hematology WBC (4.5 - 11.0 x10 3/uL) 22.6 H RBC (3.54 - 5.02 x10 6/uL) 4.15 Hgb (11.0 - 15.0 g/dL) 10.9 L Hct (33.0 - 45.0 %) 35.7 MCV (81.0 - 99.0 fL) 86.0 MCH (27.0 - 33.0 pg) 26.3 L MCHC (33.0 - 37.0 g/dL) 30.5 L RDW (11.5 - 14.5 %) 14.4 Plt Count (150 - 400 x10 3/uL) 315 MPV (7.0 - 9.0 fL) 12.3 H Neut % (Auto) (56.0 - 77.0 %) 52.6 L Lymph % (Auto) (14.0 - 32.0 %) 10.5 L [place] % (Auto) (4.8 - 9.0 %) 3.6 L Eos % (Auto) (0.3 - 3.7 %) 30.4 H Baso % (Auto) (0.0 - 2.0 %) 0.2 Neut # (Auto) (2.0 - 7.6 x10 3/uL) 11.89 H Lymph # (Auto) (1.0 - 3.8 x10 3/uL) 2.37 [place] # (Auto) (0.1 - 0.8 x10 3/uL) 0.82 H Eos # (Auto) (0.0 - 0.2 x10 3/uL) 6.87 H Baso # (Auto) (0.0 - 0.2 x10 3/uL) 0.04 Abs Immat Gran (auto) (0.00 - 0.03 x10 3/uL) 0. 60 H Add Manual Diff NO Immature Gran % (0.0 - 2.0 %) 2.7 H Nucleated RBC % (0 - 0 %) 0.1 H Nucleated RBCs # (Man) (0.0 - 0.1 x10 3/uL) 0.0 2 Microbiology: Date/Time Procedure - Status Source Growth 10/09 2107 Blood Culture - RECD BLOOD 10/09 2107 Blood Culture - RECD BLOOD Re-Evaluation MDM Free Text MDM Notes Free Text MDM Notes 40-year-old female, intubated, sedated, COVID-po sitive -Continued resuscitation, wi ll repeat ABG, blood work. We will continue insulin drip as long as potassium allows. -We will continue sedation. Patient not moving, only on fentanyl, no need for propofol currently. -Reviewed imaging prior to arrival. CT head miya ctionable. Mental status likely secondary to metabolic and infectious enc ephalopathy -We will repeat labs, ensure that patient is imp roving, consult ICU and admit ED Course Medication(s) Ordered Medication(s) Ordered: Central Nervous System Agents Sig/Aubrey Start time Last Medication Dose Route Stop Time Status Admin Fentanyl Citrate 200 MCG TITRATE 10/08 2129 CAN IV 10/13 2128 Magnesium Sulfate 50 ML ASDIR PRN 10/08 2129 AC IV 11/07 2128 Magnesium Sulfate 100 ML ASDIR PRN 10/08 2129 A C IV 11/07 2128 Electrolytic, Caloric, And Noe Sig/Aubrey Start time Last Medication Dose Route Stop Time Status Admin Dextrose/Water 50 ML ASDIR PRN 10/08 2129 CKD IV 11/07 2128 Dextrose/Water 1,000 ML ASDIR 10/08 2129 AC IV 11/07 2128 Potassium Chloride 20 MEQ ASDIR PRN 10/08 2129 AC PO 11/07 2128 Potassium Chloride 40 MEQ ASDIR PRN 10/08 2129 AC PO 11/07 2128 Potassium Chloride 60 MEQ ASDIR PRN 10/08 2129 CKD PO 11/07 2128 Potassium Chloride 100 ML ASDIR PRN 10/08 2129 AC IV 11/07 2128 Potassium Phosphate 15 MM ASDIR PRN 10/08 2129 AC Sodium Chloride 250 ML IV 11/07 2128 Hormones And Synthetic Substit Sig/Aubrey Start time Last Medication Dose Route Stop Time Status Admin Insulin Human Regular 100 UNIT ASDIR 10/08 213 0 CKD 10/08 Sodium Chloride 99 ML IV 11/07 2128 222 Skin And Mucous Membrane Agent Sig/Aubrey Start time Last Medication Dose Route Stop Time Status Admin Mupirocin 1 APPLIC BID 10/08 2214 AC 10/09 NASAL 10/13 0901 0012 Patient Discharge Departure Vital Signs/Condition Vital Signs First Documented: Result Date Time Pulse Ox 100 10/09 2047 B/P 104/57 10/09 2047 B/P Mean 72 10/09 2047 O2 Delivery Ventilator 10/09 2047 Pulse 110 10/09 2047 Resp 20 10/09 2047 FiO2 100 10/08 2048 Last Documented: Result Date Time Pulse Ox 100 10/08 2129 B/P 107/59 10/08 2129 B/P Mean 79 10/08 2129 Pulse 110 10/08 2129 Resp 15 10/08 2129 FiO2 100 10/08 2048 O2 Delivery Ventilator 10/09 2047 All vital signs available at the time of this en try have been reviewed. Clinical Impression Clinical Impression Primary Impression: Acidosis Secondary Impressions: COVID, DKA (diabe tic ketoacidosis), Respiratory failure Disposition Decision Admit Admit Physician Name James Teran MD )( Admission Accepts Yes )( Accepted Time 2138 )( Accepted Date 10/08/21 Call Information agrees with eval, agrees with plan Discharge/Care Plan Counseled Regarding Diagnosi s, Lab results, Imaging studies, Need for admission (Auto) Prescriptions Current Visit Scripts Unable to Obtain Home Medication History Critical Care Time Spent (minutes): 32 Services Performed Patient management by meMaria Isabel spent at bedside, Reviewing test results, Reviewing imaging, Discussing henrietta ent care, Documentation in record, Time with fam/surrogate Separately billable procedures excluded from maria isabel e. Patient was critically ill due to: DKA, respiratory failure, COVID My treatment and management were: Fluids, insulin drip, DKA order set, admission I CU, review of prior records CC Note 1 Total critical care time 32 minutes. Total criti ham care time documented does not include time spent on separately billed proc edures or the services of residents, students, nurses or physician assista nts. I personally saw and examined the patient. I have reviewed all diagno stic interpretations and treatment plans as written. I was present for the velasquez portions of any procedures performed and the inclusive time noted in any critical care statement. Critical care time includes patient m anagement by me, time spent at the patients bedside, time to review lab and imaging results, discussing patient care, documentation in the medical record, and time spent with the f amily or caregiver. Electronically Signed by Mark Gorman MD on 05/02 at 0025 RPT #:[id number] END OF REPORT 2021-10-08 14:37:00-00:00 [facility] ([facility]) EMERGENCY PROVIDER REPORT REPORT#:[id number] REPORT STATUS: Signed DATE:10/08/21 TIME:1437 PATIENT: HARLEEN MANZANO UNIT #: [id number] ROOM/BED: : 80 AGE: 40 SEX: F PCP PHYS: DOES_NOT KNOW SERVICE AUTHOR: Chuy Vega MD * ALL edits or amendments must be made on the el [employer]/computer document * HPI-Altered Mental Status General Confirmed Patient Yes Initial Greet Date/Time 10/08/21 1406 Presentation Chief Complaint Not acting right Hx Obtained From EMS Unable to Obtain Hx Altered mental status Onset Occurred Unknown Quality Unable to verbalize Free Text HPI Notes Free Text HPI Notes 48-year-old female, past med ical history of diabetes with unclear compliance of medications. Patient's daugh tina called 911 after patient was down on the ground for an unspecified period of time. Severely decr eased level of consciousness with EMS. Glucose greater than 600. Risk-Altered Mental Status NIH Stroke Scale NIH Stroke Scale Response Value NIHSS Applicable? No 0 Total 0 Review of Systems ROS Statements Unable to Obtain ROS Altered mental status Past Medical History - Adult Stated Complaint UNRESPONSIVE WITH HIGH BLOOD GL UCOSE Allergies Coded Allergies: Sulfa (Sulfonamide Antibiotics) (Mild, HIVES ) Home Medications Reported Medications Unable to Obtain Home Medication History Discontinued Reported Medications Insulin NPH Human Recom (NovoLIN N) Insulin Reg Human Rec (NovoLIN R) VIT/FE FUMARATE/FA ( Multivitam in w/ Iron) 1 TAB PO DAILY Unable to Obtain Past medical history, Past surg ical history, Family history, Smoking history, Social history Unobtainable due to: Altered mental status Past Medical History: Reports: Diabetes mellitus. Additional Medical History anemia Additional Surgical History right hip Smoking status for patients 13 years old or olde r: Unknown,if ever smoked Physical Exam Vital Signs Vital Signs First Documented: Result Date Time Pulse Ox 100 10/08 1359 B/P 119/62 10/08 1359 B/P Mean 81 10/08 1359 O2 Delivery Non rebreather mask 10/08 1359 O2 Flow Rate 10 10/08 1359 Temp 33.2 10/08 1359 Pulse 101 10/08 1359 Resp 18 10/08 1359 FiO2 100 10/08 1500 Last Documented: Result Date Time Pulse Ox 100 10/08 1830 B/P 143/67 10/08 1830 B/P Mean 92 10/08 1830 FiO2 100 10/08 1830 O2 Delivery Ventilator 10/08 1830 Pulse 104 10/08 1830 Resp 20 10/08 1830 Temp 33.0 10/08 1630 O2 Flow Rate 15 10/08 1500 Review of Vital Signs Reviewed Free Text PE Notes Free Text PE Notes General: Patient with notably decreased level of consciousness, ill-appearing, no acute evidence of clinically significant trau ma Cardiac: normal S1/S2, no tachycardia, 2+ pulses Pulmonary: no respiratory distress, CTAB, no str idor, positive tachypnea Abdomen: soft, NTND, no peritoneal findings Neuro: Symmetric strength in the bilateral extre mities, not withdrawing to noxious stimuli in the bilateral lower extremiti es Eyes: no acute deformities, lids unremarkable ENT: pink mucosa, patent becky es, profoundly dry mucous membranes, black substance in mouth, possibly blood Head: normocephalic, no acute traumatic abnormal ities Extremities: no acute deformities, appro priate ROM, no evidence of compartment syndrome or gross deformity Skin: no acute appearing rashes, sacrum unremark able Neck: trachea midline, appropriate ROM Interpretation Diagnostics Lab Results Interpretation Considerations Independ review imaging Results Laboratory Tests 10/08/21 1735: [Embedded Image Not Available] 10/08/21 1537: [Embedded Image Not Available] 10/08/21 1410: [Embedded Image Not Available] Laboratory Tests: 10/08 10/08 10/08 10/08 1752 1735 1735 1640 Blood Gas Puncture Site (DESCRIPTION Site) Other VBG pH (7.26 - 7.43 pH units) 6.87 L VBG pCO2 (33 - 58 mmHg) 46 VBG pO2 (80 - 100 mmHg) 176 H VBG HCO3 (22.0 - 26.0 mmol/L) 8.1 L VBG O2 Sat (Calc) (72 - 77 % (calc)) 98 H VBG Base Excess (-2.0 - 2.0 mmol/L) -25.5 L Respiration Rate (/MIN) 25 Vent Mode (VentMode Descript) A/C FiO2 (21 - 100 %) 100 Tidal Volume (ml) 450 PEEP (0 cm H2O) 5.0 Chemistry Sodium (134 - 147 mmol/L) 136 Potassium (3.4 - 5.0 mmol/L) 5.7 H Chloride (100 - 108 mmol/L) 100 Carbon Dioxide (21 - 32 mmol/L) 9 *L Anion Gap (4.0 - 15.0 GAP calc) 27.0 H BUN (7 - 18 MG/DL) 41 H Creatinine (0.6 - 1.0 MG/DL) 2.5 H Glomerular Filtr Rate (>60 estGFR) 27 L Glucose (70 - 110 MG/DL) 1043 *H Lactic Acid (0.4 - 2.0 mmol/L) 1.0 Calcium (8.5 - 10.1 MG/DL) 8.8 Total Creatine Kinase (26 - 192 Unit/L) 197 H Hematology WBC (3.5 - 11.0 K/mm3) 21.4 H RBC (4.70 - 6.10 M/mm3) 3.87 L Hgb (10.4 - 14.9 G/DL) 10.2 L Hct (31.5 - 44.1 %) 33.7 MCV (84.5 - 98.6 Fl) 87.1 MCH (27.0 - 34.2 pg) 26.4 L MCHC (31.5 - 34.0 G/DL) 30.3 L RDW (11.5 - 14.5 SD) 14.4 Plt Count (150 - 450 K/mm3) 294 MPV (7.0 - 10.5 fL) 11.60 H Toxicology Acetaminophen (10.0 - 30.0 mcG/ML) < 2.0 L 10/08 10/08 1537 1418 Chemistry Sodium (134 - 147 mmol/L) 130 L Potassium (3.4 - 5.0 mmol/L) 6.4 *H Chloride (100 - 108 mmol/L) 98 L Carbon Dioxide (21 - 32 mmol/L) 6 *L Anion Gap (4.0 - 15.0 GAP calc) 26.0 H BUN (7 - 18 MG/DL) 38 H Creatinine (0.6 - 1.0 MG/DL) 2.4 H Glomerular Filtr Rate (>60 estGFR) 29 L Glucose (70 - 110 MG/DL) 1095 *H Calcium (8.5 - 10.1 MG/DL) 8.5 Phosphorus (2.5 - 4.9 MG/DL) 8.9 H Magnesium (1.8 - 2.4 MG/DL) 2.7 H Total Bilirubin (0.2 - 1.2 MG/DL) 0.90 Direct Bilirubin (0.00 - 0.30 MG/DL) 0.30 Indirect Bilirubin (0.2 - 1.2 MG/DL) 0.60 AST (15 - 37 Unit/L) 29 ALT (12 - 78 Unit/L) 13 Total Alk Phosphatase (45 - 117 Unit/L) 130 H Troponin I High Sens (0 - 34 ng/L) 10.2 NT-Pro-B Natriuret Pep (0 - 100 PG/ML) 2132 H Total Protein (6.4 - 8.2 G/DL) 7.1 Albumin (3.4 - 5.0 G/DL) 2.1 L Lipase (114 - 286 Unit/L) 636 H Miscellaneous Maternal Serum HCG (0 - 6 mi-IU/ML) < 1 Serology SARS-CoV-2 Ag (Rapid) (Negative) POSITIVE Toxicology Salicylates (2.8 - 20.0 THER MG/DL) 4.8 Ethyl Alcohol (0 - 10 MG/DL) < 3 10/08 1412 Blood Gas Puncture Site (DESCRIPTION Site) Other VBG pH (7.26 - 7.43 pH units) 6.71 L VBG pCO2 (33 - 58 mmHg) 25 L VBG pO2 (80 - 100 mmHg) 68 L VBG HCO3 (22.0 - 26.0 mmol/L) 3.0 L VBG O2 Sat (Calc) (72 - 77 % (calc)) 67 L VBG Base Excess (-2.0 - 2.0 mmol/L) -33.2 L Vent Mode (VentMode Descript) non-rebreather ma sk FiO2 (21 - 100 %) 100 0610/08 1410 1403 Chemistry Lactic Acid (0.4 - 2.0 mmol/L) 2.1 H Coagulation INR (0.8 - 1.2 INR Unit) 1.03 PTT (Bernardo) (26 - 35 SECONDS) 26.3 PT Patient/Control Mix (9.3 - 12.9 SECONDS) 11. 7 Hematology WBC (3.5 - 11.0 K/mm3) 26.1 H RBC (4.70 - 6.10 M/mm3) 4.62 L Hgb (10.4 - 14.9 G/DL) 11.9 Hct (31.5 - 44.1 %) 41.7 MCV (84.5 - 98.6 Fl) 90.3 MCH (27.0 - 34.2 pg) 25.8 L MCHC (31.5 - 34.0 G/DL) 28.5 L RDW (11.5 - 14.5 SD) 14.6 H Plt Count (150 - 450 K/mm3) 386 MPV (7.0 - 10.5 fL) 12.20 H Neut % (Auto) (40 - 76 %) 75.8 Lymph % (Auto) (20.5 - 51.1 %) 13.8 L [place] % (Auto) (1.7 - 9.3 %) 6.0 Eos % (Auto) (0.0 - 6.0 %) 0.0 Baso % (Auto) (0.0 - 2.0 %) 0.5 Neut # (Auto) (1.8 - 7.6 K/mm3) 19.8 H Lymph # (Auto) (0.6 - 3.2 K/mm3) 3.6 H [place] # (Auto) (0.3 - 1.1 K/mm3) 1.6 H Eos # (Auto) (0.0 - 0.4 K/mm3) 0.0 Baso # (Auto) (0.0 - 0.1 K/mm3) 0.1 Abs Immat Gran (auto) (0.00 - 0.03 x10 3/uL) 1. 03 H Add Manual Diff (CRITERIA DIFF/SCN) NO Immature Gran % (0.0 - 5.0 %) 3.9 Nucleated RBC % (0.0 - 1.0 /100WBC%) 0.0 Toxicology Urine Opiates Screen (<300 NG/ML SCcutoff) NEGA TIVE Urine Methadone Screen (<300 NG/ML SCcutoff) NE GATIVE Urine Barbiturates (<200 NG/ML SCcutoff) NEGATI VE Ur Phencyclidine Scrn (<25 NG/ML SCcutoff) NEGA TIVE Ur Amphetamines Screen (<1000 NG/ML SCcutoff) N EGATIVE U Benzodiazepines Scrn (<200 NG/ML SCcutoff) NE GATIVE Urine Cocaine Screen (<300 NG/ML SCcutoff) NEGA TIVE Urine Cannabinoids (<50 NG/ML SCcutoff) NEGATIV E Urines Urine Color (YEL/STRAW discript) YELLOW Urine Appearance (CLEAR discript) CLEAR Urine pH (5.0 - 7.0 pH UNITS) <=5.0 Ur Specific [place] (1.005 - 1.030 SG) 1.020 Urine Protein (NEG mg/dL) 1+ H Urine Glucose (UA) (NEG mg/dL) 3+ Urine Ketones (NEG mg/dL) 3+ H Urine Blood (NEG mg/DL) 2+ H Urine Nitrite (NEG SCREEN) NEGATIVE Urine Bilirubin (NEG mg/dL) NEGATIVE Urine Urobilinogen (<2.0 mg/dL) 0.2 Ur Leukocyte Esterase (NEGATIVE Leuk/mcL) NEGAT KIANNA Urine RBC (0 - 3 #RBC/HPF) 3-5 H Urine WBC (0 - 3 #WBC/HPF) 0-1 Ur Squamous Epith Cells (NONE /HPF) 1+ H Urine Bacteria (NONE - TRACE /HPF) 1+ H Urine Culture Screen (Culture CHK Criteria) NO, WBC<10 Microbiology: Date/Time Procedure - Status Source Growth 10/08 1414 Blood Culture - RECD BLOOD 10/08 1404 Blood Culture - RECD BLOOD Recent Impressions: RADIOLOGY - XR CHEST 1 V 10/08 1608 Report Impression - Status: SIGNED Entered: 10/08/2021 1618 IMPRESSION: Support lines and tubes intact. Decr eased lung inflation level. Vascular congestive changes possibly. Location: U19 Impression By: [email or web address] - Virgil Zambrano CAT SCAN - CT C-SPINE W/O CONT 10/080 Report Impression - Status: SIGNED Entered: 10/08/2021 1635 Impression: 1. No evidence of trauma. Location code: H5 CT Brain Without Contrast Indication: found down, vomiting Comparison: None Technical factors: Axial images were obtained fr om the base of the skull to the vertex. Sagittal and coronal recons truction.Dose: 1352 mGy. This exam was performed according to our [facility] ental dose-optimization program, which includes automa kennedy exposure control, adjustment of the mA and/or kV according to henrietta ent size and/or use of iterative reconstruction technique. Findings: Ventricles and sulci are of normal caliber for p atient age. No hemorrhage, mass-effect, or abnormal extra-ax ial fluid collection. No evidence of acute infarct. Calvarium is unremarkable. No confluent otomastoid disease. Orbits are normal in appearance. Paranasal sinuses are clear. Impression: 1. Normal non contrast CT scan of the brain. Impression By: [email or web address] Esau Estes CAT SCAN - CT HEAD/BRAIN W/O CONT 10/08 1610 Report Impression - Status: SIGNED Entered: 10/08/2021 1635 Impression: 1. No evidence of trauma. Location code: H5 CT Brain Without Contrast Indication: found down, vomiting Comparison: None Technical factors: Axial images were obtained fr om the base of the skull to the vertex. Sagittal and coronal recons truction.Dose: 1352 mGy. This exam was performed according to our [facility] ental dose-optimization program, which includes automa kennedy exposure control, adjustment of the mA and/or kV according to henrietta ent size and/or use of iterative reconstruction technique. Findings: Ventricles and sulci are of normal caliber for p atient age. No hemorrhage, mass-effect, or abnormal extra-ax ial fluid collection. No evidence of acute infarct. Calvarium is unremarkable. No confluent otomastoid disease. Orbits are normal in appearance. Paranasal sinuses are clear. Impression: 1. Normal non contrast CT scan of the brain. Impression By: Esau Morin Lab Imaging Statement Laboratory radiographic studies reviewed and con sidered in the medical decision-making. ECG #1 Interpretation Text/Dict Note EKG interperted by physician and performed on 2021, at 2:24 PM. Normal sinus rhythm at 98, no STEMI, adequate tr acing, prolonged QTC. Procedures Central Line Placement #1 Procedure Performed by ED physician Consent/Setup/Site Prep Verified correct patient , Informed consent provided, Consent from spouse, Time-out performed, Oxygen administered, Pulse oximeter applied, convalescent sitter ros lied, Hand hygiene observed, Standard surgical scrub , Max barrier precaution, Sterile drapes applied , Position supine Skin Preparation Agent Hibiclens - Chlorhexidine Procedural Sedation/Analgesia Sedation: Etomidat e, Analgesia: Fentanyl Side/Location/Ultrasound Internal jugular R, Ult rasound assisted Catheter/Lumen/Technique Tri ple lumen, Seldinger technique, Guide wire removed, Secured with suture Number of Attempts 1 Post-Procedure/Complications Dressing placed, CXR neg for pneumothorax, Cath tip good position, Condition improved, Tolerated pro cedure well, Patient stable Intubation #1 Procedure Performed by ED physician Consent/Setup/Site Prep Verified correct patient , Informed consent provided, Consent from guardian Patient Position Neutral position Blade/ET Tube/Route Noble scope, ET tube cuffed, Route: oral Procedural Sedation/Analgesia Sedation: Etomidat e Neuromuscular Agent Rocuronium ET Confirmation Direct visualization, BS equal, End tidal CO2 device, CXR Secured/Marked ET tube device, Tube marked at li p Number of Attempts 1 Complications None Post-Procedure Condition improved, Tolerated pro cedure well, Patient stable Re-Evaluation MDM Free Text MDM Notes Free Text MDM Notes 40-year-old female, here critically ill, found d own, severe DKA with severe acidosis and COVID. Also with JAYLEEN, hyper kalemia, leukocytosis. Unable to get a CT of her abdomen. Increasing ventilation to att empt to compensate for metabolic acidosis. Patient appears to be declin ing, for which intubation subsequently done once VBG resulted. Does not ap pear to require emergent dialysis. Additionally, questionable upper GI bl eed, low risk for cirrhosis given labs. )( Re-Evaluation/Progress #1 Text/Dict Note Discussed case with . Consent for central line and intubation. In process of assembling resources for this now Time of Re-Eval 1436 )( Re-Eval Status Unchanged Re-Evaluation/Progress #2 Text/Dict Note Additional reevaluation(s) were performed but no t documented. Increased minute ventilation. Patient with appro priate peak pressures indicating plateau pressure acceptable. Per resp iratory difficulty to plateau pressures on his machine Time of Eval 1812 Re-Eval Status Improved ED Course Medication(s) Ordered Medication(s) Ordered: Anti-Infective Agents Sig/Aubrey Start time Last Medication Dose Route Stop Time Status Admin Piperacillin Sod/ 4.5 GM X1ED STA 10/08 1409 DC 10/08 Tazobactam Sod IV 10/08 1456 1415 Sodium Chloride 100 ML Vancomycin HCl 1,000 MG X1ED STA 10/08 1409 DC 10/08 Sodium Chloride 250 ML IV 10/08 1538 1415 Autonomic Drugs Sig/Aubrey Start time Last Medication Dose Route Stop Time Status Admin Norepinephrine 250 ML X1ED STA 10/08 1706 AC /30 Bitartrate IV 10/19 0305 1729 Rocuronium Pike 150 MG X1ED STA 10/08 1427 D C 10/08 IV 10/08 1428 1445 Central Nervous System Agents Sig/Aubrey Start time Last Medication Dose Route Stop Time Status Admin Magnesium Sulfate/ 100 ML ASDIR PRN 10/08 1645 AC Dextrose IV 10/09 1644 Fentanyl Citrate 100 ML X1ED STA 10/08 1501 CKD /30 IV 10/12 1900 1508 Etomidate 20 MG X1ED STA 10/08 1427 DC 10/08 IV 10/08 1428 1445 Propofol 100 ML X1ED STA 10/08 1427 CKD IV 10/12 1826 Electrolytic, Caloric, And Noe Sig/Aubrey Start time Last Medication Dose Route Stop Time Status Admin Sodium Chloride 1,000 ML X1ED STA 10/08 1903 AC IV 10/08 2001 Sodium Chloride 1,000 ML X1ED STA 10/08 1901 AC 10/08 IV 10/09 1999 1917 Sodium Bicarbonate 0 .STK-MED ONE 10/08 1706 DC IV Dextrose/Water 50 ML ASDIR PRN 10/08 1645 CKD IV 10/09 1644 Potassium Chloride 100 ML ASDIR PRN 10/08 1645 AC IV 10/09 1644 Calcium Chloride 1 GM X1ED STA 10/08 1640 DC Sodium Chloride 100 ML IV 10/08 1709 1659 Sodium Bicarbonate 150 MEQ X1ED STA 10/08 1640 DC 10/08 IV 10/08 1641 1711 Sodium Chloride 1,000 ML X1ED STA 10/08 1640 DC 10/08 IV 10/08 1740 1658 Sodium Polystyrene 30 GM X1ED STA 10/08 1640 DC 10/08 Sulfonate RECTAL 10/08 1641 1700 Sodium Bicarbonate 150 MEQ Q10H 10/08 1430 AC 0 10/08 Sterile Water 1,000 ML IV 11/07 1429 1538 Sodium Bicarbonate 150 MEQ X1ED STA 10/08 1425 DC 10/08 IV 10/08 1426 1432 Sodium Chloride 1,000 ML X1ED STA 10/08 1408 DC 10/08 IV 10/08 1507 1416 Sodium Chloride 1,000 ML X1ED STA 10/08 1406 DC 10/08 IV 10/08 1506 1413 Eye, Ear, Nose And Throat (Een Sig/Aubrey Start time Last Medication Dose Route Stop Time Status Admin Dexamethasone Sodium 6 MG X1ED STA 10/08 1701 D C 10/08 Phosphate IV 10/08 1702 1712 Gastrointestinal Drugs Sig/Aubrey Start time Last Medication Dose Route Stop Time Status Admin Pantoprazole Sodium 80 MG X1ED STA 10/08 1544 D C 10/08 IV 10/08 1545 1634 Pantoprazole Sodium 40 MG X1ED STA 10/08 1544 A C 10/08 Sodium Chloride 50 ML IV 10/08 2043 1635 Hormones And Synthetic Substit Sig/Aubrey Start time Last Medication Dose Route Stop Time Status Admin Insulin Human Regular 100 ML TITRATE 10/08 1645 CKD 10/08 IV 11/07 1644 1709 Insulin Human Regular 10 UNIT X1ED STA 10/08 16 40 DC 10/08 IV 10/08 1641 1659 Patient Discharge Departure Vital Signs/Condition Vital Signs First Documented: Result Date Time Pulse Ox 100 10/08 1359 B/P 119/62 10/08 1359 B/P Mean 81 10/08 1359 O2 Delivery Non rebreather mask 10/08 1359 O2 Flow Rate 10 10/08 1359 Temp 33.2 10/08 1359 Pulse 101 10/08 1359 Resp 18 10/08 1359 FiO2 100 10/08 1500 Last Documented: Result Date Time Pulse Ox 100 10/08 1830 B/P 143/67 10/08 1830 B/P Mean 92 10/08 1830 FiO2 100 10/08 1830 O2 Delivery Ventilator 10/08 1830 Pulse 104 10/08 1830 Resp 20 10/08 1830 Temp 33.0 10/08 1630 O2 Flow Rate 15 10/08 1500 All vital signs available at the time of this en try have been reviewed. Clinical Impression Clinical Impression Primary Impression: DKA (diabetic ketoacidosis) Secondary Impressions: JAYLEEN (acute kidney injury) , COVID, Hyperkalemia, Respiratory failure Disposition Decision Transfer )( Request Time 1645 )( Request Date 10/08/21 Call Returned Time 1719 Spoke with: Emergency physician [facility] Transfer Accepted Yes Accepted by: Sherif )( Acceptance Time 1719 )( Acceptance Date 10/08/21 Transfer Reason Capacity Patient Status Stable for transfer Patient Informed Yes Consent Obtained yes Consent Signed by: spouse Discharge/Care Plan Counseled Regarding Diagnosis, Lab resul ts, Imaging studies, Need for transfer (Auto) Prescriptions Current Visit Scripts Unable to Obtain Home Medication History Critical Care Time Spent (minutes): 49 Services Performed Patient management by Maria Isabel rojas spent at bedside, Reviewing test results, Reviewing imaging, Discussing henrietta ent care, Documentation in record, Time with fam/surrogate Separately billable procedures excluded from maria isabel mcclure. Quality Measures US for IJ Central Line US assisted IJ placement Electronically Signed by Chuy Vega MD on at [address] [facility] #: [id number] END OF REPORT 2021-10-08 14:24:00-00:00 [id number] [address] PATIENT NAME: HARLEEN MANZANO ADMIT DATE: 2 ACCOUNT NO: [id number] ROOM NO: AGE: 40 REPORT TYPE: eELECTROCARDIOGRAM SEX: F ADMITTING PHYSICIAN: ATTENDING PHYSICIAN: Order: [id number] Test Reason : (Not Selected) Test Date/Time Stamp: TueOct 08 2021 14:24:55 Blood Pressure : 119/062 mmHG Vent. Rate : 098 BPM Atrial Rate : 098 BPM P-R Int : 144 ms QRS Dur : 122 ms QT Int : 400 ms P-R-T Axes : 070 005 075 degree s QTc Int : 510 ms Normal sinus rhythm Confirmed by MD Eloisa, [place] ([id number]) on 4:30:06 PM Referred By: Self Referred Confirmed by:Ramon medel MD at 1630 PATIENT NAME: HARLEEN MANZANO [id number]
--- NOTE | 2022-09-22 18:12 | EDPHYS ---
Physician Documentation [facility] Name: Serjio Armendariz Age: 41 yrs Sex: Female : 1980 Arrival Date: 09/22/2022 Time: 17:31 Bed 5 Private MD: ED Physician Estrada Zamora HPI: 09/22 17:40 This 41 yrs old Black Female presents to ER via Wheelchair with complaints of Needing cp foot clean. 17:40 Patient presents to ED for recheck of: chronic wound to left foot. 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 Comes to cp this ED for dressing change as she didn't want to drive to [facility] today. Historical: - Allergies: 17:40 No Known Allergies; mb9 - Home Meds: 17:40 Insulin: Lantus Sub-Q [Active]; metronidazole 500 mg Oral tablet [Active]; linezolid mb9 oral [Active]; Levofloxacin Oral [Active]; - PMHx: 17:40 Diabetes mellitus; mb9 - PSHx: 17:40 left toe amputation; mb9 - Immunization history:: Adult Immunizations up to date. - Social history:: Smoking status: Patient denies any tobacco usage or history of. ROS: 17:45 Constitutional: Negative for body aches, chills, fever, poor PO intake. cp 17:45 Skin: Positive for of the left foot, chronic wound. cp 17:45 All other systems are negative. Exam: 17:50 Head/Face: Normocephalic, atraumatic. cp 17:50 Chest/axilla: Inspection: normal. 17:50 Constitutional: The patient appears in no acute distress, alert, awake, non-toxic, well cp developed, well nourished, obese. 17:50 Cardiovascular: Rate: tachycardic. 17:50 Respiratory: the patient does not display signs of respiratory distress, Respirations: normal, no use of accessory muscles, no retractions, labored breathing, is not present. 17:50 Abdomen/GI: Inspection: abdomen appears normal. 17:50 Musculoskeletal/extremity: Extremities: noted in the left foot: amputation site appears cp w/o erythema, open wound noted to heel of foot with purulent drainage noted. Vital Signs: 17:37 Weight 156.49 kg; Height 5 ft. 11 in. ; mb9 17:37 Pulse 105; Resp 18; Temp 98.6; Pulse Ox 100% on R/A; mb9 18:58 Pulse 95; Resp 16; Temp 98.5; Pulse Ox 99% ; bp 17:37 Body Mass Index 48.12 (156.49 kg, 180.34 cm) mb9 MDM: 17:37 Patient medically screened. cp 17:55 Differential diagnosis: sepsis. cp 18:10 Data reviewed: vital signs, nurses notes. cp 18:10 Care significantly affected by the following chronic conditions: Diabetes, Obesity. cp Counseling: I had a detailed discussion with the patient and/or guardian regarding: the historical points, exam findings, and any diagnostic results supporting the discharge/admit diagnosis, the need for outpatient follow up, a family practitioner, to return to the emergency department if symptoms worsen or persist or if there are any questions or concerns that arise at home. 09/22 18:09 Order name: Wound dressing; Complete Time: 18:55 cp Administered Medications: No medications were administered Disposition Summary: 09/22/22 18:11 Discharge Ordered Location: Home cp Problem: an ongoing problem cp Symptoms: have improved cp Condition: Stable cp Diagnosis - Encounter for change or removal of nonsurgical wound dressing cp Followup: cp - With: Private Physician - When: 2 - 3 days - Reason: Wound Recheck Discharge Instructions: - Discharge Summary Sheet cp - How to Change Your Wound Dressing cp Forms: - Medication Reconciliation Form cp - Thank You Letter cp - Antibiotic Education cp - Prescription Opioid Use cp Signatures: Ronald Hart PA PA cp Breneman, Mary Beth, RN RN mb9 Corrections: (The following items were deleted from the chart) 17:42 17:40 PSHx: metronidazole; mb9 mb9 09/23 18:06 09/22 17:55 Head/Face: Normocephalic, atraumatic. cp cp 09/23 18:09/22 17:55 Chest/axilla: Inspection: normal, cp cp 09/23 18:19 09/22 17:55 Constitutional: The patient appears in no acute distress, alert, awake, cp non-toxic, well developed, well nourished, obese, cp 09/23 18:19 09/22 17:55 Cardiovascular: Rate: tachycardic, cp cp 09/23 18:09/22 17:55 Respiratory: the patient does not display signs of respiratory distress, cp Respirations: normal, no use of accessory muscles, no retractions, labored breathing, is not present, cp 09/23 18:09/22 17:55 Abdomen/GI: Inspection: abdomen appears normal, cp cp
--- NOTE | 2022-09-22 18:12 | ER ---
Nurse's Notes [facility] Name: Sejrio Armendariz Age: 41 yrs Sex: Female : 1980 Arrival Date: 09/22/2022 Time: 17:31 Bed 5 Private MD: Diagnosis: Encounter for change or removal of nonsurgical wound dressing Presentation: 09/22 17:37 Chief complaint: Patient states: "I'm supposed to go to [place] to get my diabetic foot mb9 clean at the [facility] but it's 2 hrs away and didn't want to make the drive. 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 I brought all the supplies". Coronavirus screen: Vaccine status: Patient reports being unvaccinated. Ebola Screen: No symptoms or risks identified at this time. Initial Sepsis Screen: Does the patient meet any 2 criteria? No. Patient's initial sepsis screen is negative. Does the patient have a suspected source of infection? No. Patient's initial sepsis screen is negative. Risk Assessment: Do you want to hurt yourself or someone else? Patient reports no desire to harm self or others. Onset of symptoms was September 22, 2022. 17:37 Method Of Arrival: Wheelchair mb9 17:37 Acuity: ANGÉLICA 4 mb9 Triage Assessment: 17:45 General: Appears in no apparent distress. comfortable, Behavior is calm, cooperative, bp appropriate for age. Pain: Denies pain. EENT: No deficits noted. Neuro: No deficits noted. Cardiovascular: No deficits noted. Respiratory: No deficits noted. GI: No signs and/or symptoms were reported involving the gastrointestinal system. : No signs and/or symptoms were reported regarding the genitourinary system. Derm: No deficits noted. Musculoskeletal: No deficits noted. Injury Description: SURGICAL WOUND TO LEFT FOOT. Historical: - Allergies: 17:40 No Known Allergies; mb9 - Home Meds: 17:40 Insulin: Lantus Sub-Q [Active]; metronidazole 500 mg Oral tablet [Active]; linezolid mb9 oral [Active]; Levofloxacin Oral [Active]; - PMHx: 17:40 Diabetes mellitus; mb9 - PSHx: 17:40 left toe amputation; mb9 - Immunization history:: Adult Immunizations up to date. - Social history:: Smoking status: Patient denies any tobacco usage or history of. Screenin:57 [facility] ED Fall Risk Assessment (Adult) History of falling in the last 3 months, bp including since admission No falls in past 3 months (0 pts). Abuse screen: Denies threats or abuse. Denies injuries from another. Nutritional screening: No deficits noted. Tuberculosis screening: No symptoms or risk factors identified. Assessment: 17:45 General: SEE TRIAGE NOTE. bp 18:57 Reassessment: PT DC HOME. bp 19:15 Reassessment: No changes from previously documented assessment. Patient and/or family vc1 updated on plan of care and expected duration. Pain level reassessed. Vital Signs: 17:37 Weight 156.49 kg; Height 5 ft. 11 in. ; mb9 17:37 Pulse 105; Resp 18; Temp 98.6; Pulse Ox 100% on R/A; mb9 18:58 Pulse 95; Resp 16; Temp 98.5; Pulse Ox 99% ; bp 17:37 Body Mass Index 48.12 (156.49 kg, 180.34 cm) mb9 ED Course: 17:34 Patient arrived in ED. im 17:36 Ronald Hart PA is PHCP. cp 17:36 Estrada Zamora MD is Attending Physician. cp 17:37 Arm band placed on. mb9 17:40 Triage completed. mb9 18:42 Jimmy Tellez, CHRISS is Primary Nurse. bp 18:57 Patient has correct armband on for positive identification. Bed in low position. Call bp light in reach. Side rails up X2. 18:57 No provider procedures requiring assistance completed. Patient did not have IV access bp during this emergency room visit. Wound care: to SURGICAL located on ball of left foot. Administered Medications: No medications were administered Medication: 18:57 VIS not applicable for this client. bp Outcome: 18:11 Discharge ordered by MD. cp 18:57 Discharged to home via wheelchair, with family. bp 18:57 Condition: stable 18:57 Discharge instructions given to patient, family, Instructed on discharge instructions, follow up and referral plans. wound care, Demonstrated understanding of instructions, follow-up care, wound care. 19:21 Patient left the ED. mb9 Signatures: Ronald Hart PA PA cp Peltier, Brian, RN RN bp Kathi Gbibs RN RN vc1 Barbie Pritchard RN RN mb9 Anita Alamo Corrections: (The following items were deleted from the chart) 17:42 17:40 PSHx: metronidazole; anthony mb9
[2022-09-22 19:27] VITALS: TEMP 98.5; O2SAT 99
== END 2022-09-22 19:21 | disposition home or self-care (01) ==
LOC: ER 17:31
DX: Z48.01 Encounter for change or removal of surgical wound dressing (principal); Z89.422 Acquired absence of other left toe(s)
CPT/HCPCS: 99283

== ENCOUNTER 2022-10-01 18:55 | Emergency (ER) | payer OTHER ==
--- OUTSIDE RECORDS SUMMARY | 2022-10-01 19:13 | XMS REPORT | Continuity of Care Document ---
:1980 Author Organization [facility] t Address [address] [place] [address] Care Team Providers Name Role Phone Asked, No Pcp Primary Care Physician Unavailable ADAMS_R Attending Clinician Unavailable Yenny MORENO, Blanco Sanchez Attending Clinician [phone] Tyler MORENO, Yusuf Brown Attending Clinician Evelia Navarrete RN Attending Clinician Unavailable Sae MORENO, Samantha Rushing Attending Clinician [phone] Mateo RNAndria Attending Clinician Unavailable Hallie Medina Attending Clinician Unavailable Brandee Xavier DO Attending Clinician Ramu RNHemalatha Attending Clinician Unavailable Primo MORENO, Ishaan Mercado Attending Clinician Cecilia Obrien MD Attending Clinician Nadege Obrien MD Attending Clinician Den Lea Attending Clinician Noah MORENO, David Britt Attending Clinician Marga MORENO, Nan Attending Clinician Demetrio HAMMOND, Keith Irvin Attending Clinician [phone] Cleo GUTIERRES Attending Clinician Cong Pearson Attending Clinician Jhon Cherry MD Attending Clinician [phone] JIMMIE ALVARADO Attending Clinician Unavailable Marshal Maya Attending Clinician Unavailable Yusuf Castle Attending Clinician Unavailable Delisa Shepherd Attending Clinician Unavailable Chuy Vega Attending Clinician Unavailable ANDRIY_Cindy Admitting Clinician Unavailable YUSUF BRADY Admitting Clinician [...] ics) s to drug Sulfa DA Active [facility] (Sulfona 8-17 Clear mide 00:00: [facility] Sulfa DA Active [place] [facility] (Sulfona 4-15 Clear mide 00:00: Jj Antibiot 00 [facility] Social History Social Habit Start Date Stop Date Quantity Comments Source [facility] History of Social 2022-09-08 2022-09-[address] function 00:00:00 00:00:00 Hospital Alcohol intake 2022-09-02 2022-09-02 Lifetime [facility] 00:[facility] 00:00:00 non-drinker Hospital (finding) Tobacco use and 2022-06-16 2022-06-16 Smokeless [facility] 00:00:00 00:00:00 tobacco non-user Hospital Sex Assigned At [birth year] [facility] 00:[facility]00 [facility] Smoking Status Start Date Stop Date Source Never Smoker [facility] Medications Ordered Filled Start Stop Current Ordering Indication Dosage Frequency Signature Comments Components Source Medication Medication Date Date Medication? Clinician (SIG) Name Name insulin Yes 26U Q.5D Inject Methodi GLARGINE 5-[address] (LANTUS) 16:41: (26 Units [facility]osp [facility] 100 unit/mL 13 total) l injection under the (vial) skin 2 (two) times a day. insulin Yes Inject Methodi lispro 5-[address] (HUMALOG 16:41: skin. Hospita U-100 13 l INSULIN SUBQ) insulin Yes 26U Q.5D Inject Methodi GLARGINE 5-[address] (LANTUS) 16:41: (26 Units Hosp [facility]a 100 unit/mL 13 total) l injection under the (vial) skin 2 (two) times a day. insulin Yes Inject Methodi lispro 5-[address] (HUMALOG 16:41: skin. Hospita U-100 13 l INSULIN SUBQ) linezolid 2022-0 3- No 600mg Q.5D Take 1 Meth abby (ZYVOX) 600 09-[address] mg tablet 00:00: 04:59 (600 mg Hosp sonya 00 :00 total) by l mouth 2 (two) times a day for 14 days. levoFLOXaci 2022-0 3- No 750mg QD Take 1 Me thodi n 09-[address] (Levaquin) 00:00: 04:59 (750 mg Hos isabel 750 MG 00 :00 total) by l tablet mouth daily for 14 days. metroNIDAZO 2022-0 2023- No 500mg [id number] Take 1 Methodi LE (FlagyL) 09-[id number] 500 MG 00:00: 04:59 3D (500 mg Hospita tablet 00 :00 total) by l mouth 3 (three) times a day for 14 days. linezolid 2022-0 2022- No 600mg Q.5D Take 1 Meth abby (ZYVOX) 600 09-[address] mg tablet 00:00: 04:59 (600 mg Hosp [facility] 00 :00 total) by l mouth 2 (two) times a day for 14 days. levoFLOXaci 2022-0 2022- No 750mg QD Take 1 Me thodi n 09-[address] (Levaquin) 00:00: 04:59 (750 mg Hos isabel 750 MG 00 :00 total) by l tablet mouth daily for 14 days. metroNIDAZO 2022-0 3- No 500mg Q.[id number] Take 1 Methodi LE (FlagyL) 09-[id number] 500 MG 00:00: 04:59 3D (500 mg Hospita tablet 00 :00 total) by l mouth 3 (three) times a day for 14 days. insulin 2022-0 Yes 26U Q.5D Inject Methodi GLARGINE 5-[address] (LANTUS) 11:39: (26 Units Hosp sonya 100 unit/mL 09 total) l injection under the (vial) skin 2 (two) times a day. insulin 2023-0 Yes Inject Methodi lispro 5-[address] (HUMALOG 11:32: skin. Hospita U-100 20 l INSULIN SUBQ) insulin 0 Yes Inject Methodi GLARGINE 3-[address] (LANTUS) 20:22: skin. Hospita 100 unit/mL 02 l injection (vial) insulin Yes Inject Methodi lispro 3-[address] (HUMALOG 20:22: skin. Hospita U-100 02 l INSULIN SUBQ) polyethylen 2022-0 2023- No 17g QD Take 17 g Methodi e glycol 3-16 04-[address] (MIRALAX) 00:00: 04:59 daily for Ho spita 17 gram 00 :00 30 days. l packet polyethylen 2022-0 2022- No 17g QD Take 17 g Methodi e glycol 3-16 04-[address] (MIRALAX) 00:00: 04:59 daily for Ho spita 17 gram 00 :00 30 days. l packet polyethylen 2022-2022- No 17g QD Take 17 g Methodi e glycol 3-16 04-[address] (MIRALAX) 00:00: 04:59 daily for Ho spita 17 gram 00 :00 30 days. l packet polyethylen 2022-0 3- No 17g QD Take 17 g Methodi [...] l Plus daily for 14 days. cefTRIAXone 2022-0 3- No 2g Q24H Infuse 2 g Methodi (ROCEPHIN) -24 06- into a st 2 g in 100 00:00: 04:59 venous Hosp sonya ML Mini-Bag 00 :00 catheter l Plus daily for 14 days. cefTRIAXone 2022-0 3- No 2g Q24H Infuse 2 g Methodi (ROCEPHIN) 06-[address] 2 g in 100 00:00: 04:59 venous Hosp sonya ML Mini-Bag 00 :00 catheter l Plus daily for 14 days. cefTRIAXone 2022-0 2023- No 2g Q24H Infuse 2 g Methodi (ROCEPHIN) 16 07-[address] 2 g in 100 00:00: 04:59 venous Hosp sonya ML Mini-Bag 00 :00 catheter l Plus daily for 14 days. HYDROcodone 2022-0 Yes [id number] 1{tbl} Q6H Take 1 M ethodi -acetaminop 3-[address] hen (Groupsite) 00:00: mouth Hospi ta 7.5-325 mg 00 [...] to arouse (POSS GREATER than 3).). HYDROcodone 2022-0 Yes [id number] 1{tbl} Q6H Take 1 M ethodi -acetaminop 3-[address] hen (Groupsite) 00:00: mouth Hospi ta 7.5-325 mg 00 [...] to arouse (POSS GREATER than 3).). HYDROcodone 2022-0 Yes [id number] 1{tbl} Q6H Take 1 M ethodi -acetaminop 3-[address] hen (Groupsite) 00:00: mouth Hospi ta 7.5-325 mg 00 [...] arouse (POSS GREATER than 3).). HYDROcodone Yes [id number] 1{tbl} Q6H Take 1 M ethodi -acetaminop [...] per tablet day for 30 days. bisacodyL 2022-2022- No 10mg Q24H Insert 1 Met hodi (DULCOLAX) 3-15 -[address] 10 mg 00:00: 04:59 y (10 mg Hospita suppository 00 :00 total) l into the rectum daily as needed for constipati on for up to 30 days. lactulose 2022- No 20g Q.5D Take 30 mL M ethodi 20 gram/30 -24 07-15 ([address] mL solution 00:00: 04:59 [...] Q.5D Take 2 M ethodi docusate 3-15 -[address] sodium 00:00: 04:59 mouth 2 Hospita (SENOKOT-S) 00 :00 (two) l 8.6-50 mg times a per tablet day for 30 days. bisacodyL 2022-0 2022- No 10mg Q24H Insert 1 Met hodi (DULCOLAX) 3-15 -[address] 10 mg 00:00: 04:59 y (10 mg Hospita suppository 00 :00 total) l into the rectum daily as needed for constipati on for up to 30 days. lactulose 2023-0 2023- No 20g Q.5D Take 30 mL [...] for up to 30 days. sennosides- 2022-0 2023- No 2{tbl} Q.5D Take 2 M ethodi docusate 3-15 04-[address] sodium 00:00: 04:59 mouth 2 Hospita (SENOKOT-S) 00 :00 (two) l 8.6-50 mg times a per tablet day for 30 days. bisacodyL 2022-0 2022- No 10mg Q24H Insert 1 Met hodi (DULCOLAX) 3-15 04-[address] 10 mg 00:00: 04:59 y (10 mg Hospita suppository 00 :00 total) l into the rectum daily as needed for constipati on for up to 30 days. lactulose 3-0 2023- No 20g Q.5D Take 30 mL M ethodi 20 gram/30 3-15 -15 ([address] mL solution 00:00: [...] for up to 30 days. sennosides- 2022-0 2023- No 2{tbl} Q.5D Take 2 M ethodi docusate 3-15 04-[address] sodium 00:00: 04:59 mouth 2 Hospita (SENOKOT-S) 00 :00 (two) l 8.6-50 mg times a per tablet day for 30 days. Humalog Humalog No Humalog Porter Jamie Jamie Jamie [facility] KwikPen KwikPen KwikPen (U-100) 100 (U-100) 100 [...] pressure Diastolic blood 2022-09-08 12:46:54 81 mm[Hg] [facility] Heart rate 2022-09-08 12:46:54 88 /min [facility] Body temperature 2022-09-08 12:46:54 36.94 Latricia [facility] Respiratory rate 2022-09-08 12:46:54 18 /min [facility] Oxygen saturation in 2022-09-08 12:46:54 99 /min [facility] Arterial blood by Pulse oximetry Systolic blood 2022-09-07 21:09:01 142 mm[Hg] [facility] Hospital pressure Diastolic blood 2022-09-07 21:09:01 74 mm[Hg] [facility] pressure Heart rate 2022-09-07 21:09:01 80 /min [facility] Body temperature 2022-09-07 21:09:01 36.83 Latricia [facility] Respiratory rate 2022-09-07 21:09:01 16 /min [facility] Oxygen saturation in 2022-09-07 21:09:01 100 /min [facility] Arterial blood by Pulse oximetry Body weight 2022-09-02 11:00:00 102.3 kg [facility] BMI 2022-09-02 11:00:00 32.36 kg/m2 [facility] Body height 2022-09-02 04:07:00 177.8 cm [facility] Systolic blood 2022-08-05 22:33:32 119 mm[Hg] Method is Hospital pressure Diastolic blood 2022-08-05 22:33:32 71 mm[Hg] [facility] Hospital pressure Heart rate 2022-08-05 22:33:32 95 /min [facility] Body temperature 2022-08-05 22:33:32 36.72 Latricia [facility] Respiratory rate 2022-08-05 22:33:32 19 /min [facility] Oxygen saturation in 2022-08-05 22:33:32 100 /min [facility] Arterial blood by Pulse oximetry Body height 2022-06-17 04:34:00 177.8 cm [facility] Body weight 2022-06-17 04:34:00 157.8 kg [facility] BMI 2022-06-17 04:34:00 49.92 kg/m2 [facility] Procedures Procedure Date / Time Performing Clinician Source Performed POC GLUCOSE 2022-09-08 17:31:00 Moosavi, Yusuf [facility] POC GLUCOSE 2022-09-08 13:53:00 Moosavi, Yusuf [facility] POC GLUCOSE 2022-09-08 12:48:00 Moosavi, Yusuf [facility] CBC WITH PLATELET AND 2022-09-08 10:45:00 [facility] BASIC METABOLIC PANEL 2022-09-08 10:45:00 [facility] ESTIMATED GFR 2022-09-08 10:45:00 [facility] 2022-09-08 10:45[facility]00 [facility] 2022-09-08 01:19:00 Moosavi, Yusuf [facility] POC GLUCOSE 2022-09-07 22:22:00 Moosavi, Yusuf [facility] POC GLUCOSE 2022-09-07 16:17:00 Moosavi, Yusuf [facility] POC GLUCOSE 2022-09-07 12:24:00 Moosavi, Yusuf [facility] CBC WITH PLATELET AND 2022-09-07 09:47:00 MichaelElvira brar [facility] DIFFERENTIAL BASIC METABOLIC PANEL 2022-09-07 09:47:00 Michael [facility] CREATINE KINASE, TOTAL 2022-09-07 09:47:00 Jailyn [facility] ESTIMATED GFR 2022-09-07 09:47:00 Michael [facility] PICC INSERTION REQUEST 2022-09-07 03:03:58 [facility] POC GLUCOSE 2022-09-07 02:59:00 Moosavi, Yusuf [facility] POC GLUCOSE 2022-09-07 01:08:00 Moosavi, Yusuf [facility] POC GLUCOSE 2022-09-06 22:29:00 Moosavi, Yusuf [facility] POC GLUCOSE 2022-09-06 17:04:00 Moosavi, Yusuf [facility] POC GLUCOSE 2022-09-06 13:20:00 Moosavi, Yusuf [facility] BASIC METABOLIC PANEL 2022-09-06 09:05:00 [place] [facility] CBC WITH PLATELET AND 2022-09-06 09:05:00 Michael [facility] DIFFERENTIAL ESTIMATED GFR 2022-09-06 09:05:00 [facility] POC GLUCOSE 2022-09-06 04:09:00 Moosavi, Yusuf [facility] POC GLUCOSE 2022-09-06 00:34:00 Moosavi, Yusuf [facility] POC GLUCOSE 2022-09-05 22:53:00 Moosavi, Yusuf [facility] POC GLUCOSE 2022-09-05 18:00:00 Moosavi, Yusuf [facility] TTE COMPLETE, WO CONTRAST, 2022-09-05 15:28:21 [id number] CBC WITH PLATELET AND 2022-09-05 15:02:00 Michael [facility] DIFFERENTIAL BASIC METABOLIC PANEL 2022-09-05 13:38:00 [place] [facility] ESTIMATED GFR 2022-09-05 13:38:00 [place] [facility] POC GLUCOSE 2022-09-05 13:27:00 Moosavi, Yusuf [facility] CREATININE LEVEL 2022-09-05 10:53:00 [facility] 2022-09-05 10:53:00 Jailyn [facility] [place] POC GLUCOSE 2022-09-05 06:19:00 Moosavi, Yusuf [facility] POC GLUCOSE 2022-09-05 01:49:00 Moosavi, Yusuf [facility] POC GLUCOSE 2022-09-04 23:37:00 Moosavi, Yusuf [facility] POC GLUCOSE 2022-09-04 19:17:00 Moosavi, Yusuf [facility] POC GLUCOSE 2022-09-04 18:25:00 Moosavi, Y[facility]uf [facility] POC GLUCOSE 2022-09-04 13:58:00 Moosavi, Yusuf [facility] BLOOD CULTURE, AEROBIC & 2022-09-04 08:11:00 [facility] ANAEROBIC CREATININE LEVEL 2022-09-04 08:10:00 [facility] VANCOMYCIN LEVEL, RANDOM 2022-09-04 08:10:00 [facility] ESTIMATED GFR 2022-09-04 08:10:00 [facility] POC GLUCOSE 2022-09-04 02:59:00 Moosavi, [facility]uf [facility] POC GLUCOSE 2022-09-04 01:50:00 Moosavi, Y[facility]uf [facility] POC GLUCOSE 2022-09-03 22:20:00 Moosavi, Y[facility]uf [facility] POC GLUCOSE 2022-09-03 17:45:00 Moosavi, Y[facility]uf [facility] POC GLUCOSE 2022-09-03 14:43:00 Moosavi, Yusuf [facility] VANCOMYCIN LEVEL, RANDOM 2022-09-03 13:57:00 [facility] CREATININE LEVEL 2022-09-03 13:57:00 [facility] ESTIMATED GFR 2022-09-03 13:57:00 [facility] POC GLUCOSE 2022-09-03 13:22:00 Moosavi, Yusuf [facility] POC GLUCOSE 2022-09-03 03:49:00 Moosavi, Yusuf [facility] MRI LOWER EXTREMITY JOINT 2022-09-03 03:30:09 Anahy [facility] W WO CONTRAST LEFT Chika MRI LOWER EXTREMITY W WO 2022-09-03 03:29:34 Jailyn [facility] [place] CONTRAST LEFT POC GLUCOSE 2022-09-03 01:20:00 Moosavi, Yusuf [facility] METHICILLIN-RESISTANT 2022-09-03 00:58:00 Jailyn, [facility] STAPHYLOCOCCUS AUREUS (MRSA), ANIRUDH POC GLUCOSE 2022-09-02 23:19:00 Moosavi, [facility]uf [facility] POC GLUCOSE 2022-09-02 22:05:00 Moosavi, Yusuf [facility] POC GLUCOSE 2022-09-02 19:18:00 Moosavi, [facility]uf [facility] POC GLUCOSE 2022-09-02 18:24:00 Moosavi, Yusuf [facility] AEROBIC CULTURE 2022-09-02 17:37:00 [facility] GRAM STAIN 2022-09-02 17:37:00 Bryson [facility] ANAEROBIC CULTURE 2022-09-02 17:37:00 [facility] 2022-09-02 15:16:00 Moosavi, [facility] CBC WITH PLATELET AND 2022-09-02 11:35:00 Breanne [facility] DIFFERENTIAL COMPREHENSIVE METABOLIC 2022-09-02 11:35:00 Breanne [facility] PANEL LACTIC ACID LEVEL, SEPSIS 2022-09-02 11:35:00 Murphy Ramon [facility] - NOW AND REPEAT 2X EVERY Go 3 HOURS ESTIMATED GFR 2022-09-02 11:35:00 Breanne [facility] HEMOGLOBIN A1C 2022-09-02 11:35:00 Jailyn [facility] [place] URINE CULTURE 2022-09-02 11:32:00 Blanco Ramon [facility] Go URINALYSIS SCREEN AND 2022-09-02 11:32:00 [facility] MICROSCOPY, WITH REFLEX TO Go CULTURE POC GLUCOSE 2022-09-02 08:30:00 Yusuf Brady [facility] joselito Sanchez LACTIC ACID LEVEL, SEPSIS 2022-09-02 08:04:00 [facility] - NOW AND REPEAT 2X EVERY Go 3 HOURS BLOOD CULTURE, AEROBIC & 2022-09-02 05:01:00 [facility] ANAEROBIC Go BLOOD CULTURE, AEROBIC & 2022-09-02 05:00:00 [facility] ANAEROBIC Go LACTIC ACID LEVEL, SEPSIS 2022-09-02 05:00:00 [facility] - NOW AND REPEAT 2X EVERY Go 3 HOURS CBC WITH PLATELET AND 2022-09-02 05:00:00 [facility] DIFFERENTIAL Go COMPREHENSIVE METABOLIC 2022-09-02 05:00:00 [facility] PANEL Go PROTHROMBIN TIME WITH INR 2022-09-02 05:00:00 [facility] Go PARTIAL THROMBOPLASTIN 2022-09-02 05:00:00 [facility] TIME (PTT) Go ESTIMATED GFR 2022-09-02 05:00:00 [facility] Go BLOOD CULTURE, AEROBIC & 2022-08-27 08:24:00 Samantha levine [facility] ANAEROBIC Kristan LACTIC ACID, I-STAT 2022-08-27 07:46:00 [facility] BLOOD CULTURE, AEROBIC & 2022-08-27 07:05:00 [facility] Kristan CBC WITH PLATELET AND 2022-08-27 07:05:00 [facility] Kristan COMPREHENSIVE METABOLIC 2022-08-27 07:05:00 [facility] PANEL Kristan ESTIMATED GFR 2022-08-27 07:05:00 [facility]UAL DIFFERENTIAL 2022-08-27 07:05:00 [facility]W LEFT 2022-08-27 05:27:45 Samantha Quevedo [facility] Kristan POC GLUCOSE 2022-06-23 21:22:00 Marga, [facility] VENIPUNC NEED PHYS 2022-06-23 19:40:32 Altre, Shellaise [facility] SKILL,DX OR RX POC GLUCOSE 2022-06-23 17:09:00 [facility], [facility] POC GLUCOSE 2022-06-23 13:10:00 [facility], [facility] BASIC METABOLIC PANEL 2022-06-23 10:48:00 Keith Atkinson [facility] CBC WITH PLATELET AND 2022-06-23 10:48:00 [facility] ESTIM[facility] GFR 2022-06-23 10:48:00 Keith Atkinson [facility] POC GLUCOSE 2022-06-23 10:01:00 [facility] POC GLUCOSE 2022-06-23 02:27:00 [facility], [facility] POC GLUCOSE 2022-06-22 21:26:00 [facility], [facility] POC GLUCOSE 2022-06-22 16:54:00 [facility] POC GLUCOSE 2022-06-22 12:51:00 [facility], [facility] POC GLUCOSE 2022-06-22 08:09:00 David Zamora [facility] [place] POC GLUCOSE 2022-06-22 01:38:00 Noah David [facility] [place] POC GLUCOSE 2022-06-21 21:53:00 Zamora, David [facility] [place] POC GLUCOSE 2022-06-21 17:36:00 Zamora, David [facility] [place] POC GLUCOSE 2022-06-21 12:40:00 Zamora David [facility] [place] POC GLUCOSE 2022-06-21 09:38:00 Zamora, David [facility] [place] POC GLUCOSE 2022-06-21 01:21:00 Zamora, David [facility] [place] POC GLUCOSE 2022-06-20 20:46:00 Zamora, David [facility] [place] POC GLUCOSE 2022-06-20 13:09:00 Zamora, David [facility] [place] COMPREHENSIVE METABOLIC 2022-06-20 09:10:00 Keith Atkinson [facility] PANEL [facility] ESTIMATED GFR 2022-06-20 09:10:00 MicahNadege spital VANCOMYCIN LEVEL, TROUGH 2022-06-20 09:10:[address] [facility] CBC WITH PLATELET AND 2022-06-20 09:10:00 [facility] Bal[facility]inder POC GLUCOSE 2022-06-20 03:12:00 Zamora, David [facility] [place] POC GLUCOSE 2022-06-19 23:02:00 Zamora, David [facility] [place] POC GLUCOSE 2022-06-19 18:12:00 Zamora, Davidfernando Bateman spital Balwinder XR FOOT 3+ VW LEFT 2022-06-19 15:16:52 Demetrio [facility] POC GLUCOSE 2022-06-19 14:43:00 Zamora, David Bateman spital Balwinder FUNGUS CULTURE 2022-06-19 14:22:00 Demetrio jerrodnj [facility] [employer] CULTURE 2022-06-19 14:22:00 Demetrio jerrodnj [facility] sp[facility] [place] GRAM STAIN 2022-06-19 14:22:00 [facility] 2022-06-19 13:59:00 [facility]ora, [facility], FOOT, 2022-06-19 13:50:00 Demetrio [facility] TRANSMETATARSAL [facility] ANAEROBIC CULTURE 2022-06-19 13:22:00 Demetrio, [facility] Brandee AEROBIC CULTURE 2022-06-19 13:22:00 Keith Atkinson spiviv Irvin FUNGUS SMEAR 2022-06-19 13:22:00 Keith Atkinson [facility] [employer] STAIN 2022-06-19 13:22:00 Demetrio bebo Bateman [facility] Brandee COMPREHENSIVE METABOLIC 2022-06-19 12:12:00 Keith Atkinson Meth [facility] PANEL Terryyeyo CBC WITH PLATELET AND 2022-06-19 12:12:00 [facility] Brandee ESTIMATED GFR 2022-06-19 12:12:00 Keith Atkinson [facility] Brandee PROTHROMBIN TIME WITH INR 2022-06-19 12:12:00 [facility] Yusuf POC GLUCOSE 2022-06-19 09:46:00 [facility] Yusuf ESTIMATED GFR 2022-06-19 08:29:00 [facility] Yusuf POC GLUCOSE 2022-06-19 05:34:00 [facility] Yusuf POC GLUCOSE 2022-06-19 02:27:00 [facility] Yusuf POC GLUCOSE 2022-06-18 22:10:00 [facility] Yusuf BASIC METABOLIC PANEL 2022-06-18 20:30:00 [facility] Brandee CBC WITH PLATELET AND 2022-06-18 20:30:00 Demetrio [facility] DIFFERENTIAL Brandee ESTIMATED GFR 2022-06-18 20:30:00 [facility] Yusuf POC GLUCOSE 2022-06-18 14:21:00 [facility] Yusuf MD AN ELECTIVE 2022-06-18 12:59:18 Lilian Pineda spital [employer] [place] POC GLUCOSE 2022-06-18 12:29:00 [facility] Yusuf POC GLUCOSE 2022-06-18 03:30:00 [facility] Yusuf POC GLUCOSE 2022-06-17 22:13:00 [facility] Yusuf POC GLUCOSE 2022-06-17 18:07:00 [facility] Yusuf XR FOOT 3+ VW LEFT 2022-06-17 16:53:57 [facility] 2022-06-17 15:10:00 [facility] Yusuf POC GLUCOSE 2022-06-17 14:35:00 [facility] Yusuf POC GLUCOSE 2022-06-17 13:35:00 [facility] Yusuf FUNGUS CULTURE 2022-06-17 13:12:00 Julius Atkinsonnj [facility] sp[facility] [employer] CULTURE 2022-06-17 13:12:00 Demetrio [facility] sp[facility] [employer] GRAM STAIN 2022-06-17 13:12:00 [facility] joselito Irvin AMPUTATION, FOOT, 2022-06-17 12:43:00 Demetrio [facility] TRANSMETATARSAL Brandee ANAEROBIC CULTURE 2022-06-17 12:12:00 [facility] 2022-06-17 12:12:00 Demetrio [facility] [employer] STAIN 2022-06-17 12:12:[address] [facility] [place] ABO AND RH CONFIRMATION BY 2022-06-17 12:08:00 Nadege Obrien [facility] PROTOCOL PROTHROMBIN TIME WITH INR 2022-06-17 11:45:00 Keith Atkinson [facility] Brandee TYPE AND SCREEN 2022-06-17 11:45:00 [facility] [place] POC GLUCOSE 2022-06-17 11:42:00 Nadege [facility] US DUPLEX ARTERIAL LOWER 2022-06-17 10:30:00 Nadege Obrien [facility] EXTREMITY LEFT CBC HEMOGRAM 2022-06-17 10:20:00 Nadege Obrien [facility] MAGNESIUM LEVEL 2022-06-17 10:20:00 Nadege Obrien spital THYROID STIMULATING 2022-06-17 10:20:00 Nadege Obrien [facility] HORMONE CREATINE KINASE, TOTAL 2022-06-17 10:20:00 Micah [facility] ([facility]) VITAMIN B12 LEVEL 2022-06-17 10:20:00 [facility] B NATRIURETIC PEPTIDE 2022-06-17 10:20:00 MicahNadege woods [facility] PROCALCITONIN 2022-06-17 10:20:00 Demetrio [facility] COMPREHENSIVE METABOLIC 2022-06-17 10:20:00 Nadege Obrien [facility] PANEL ESTIMATED GFR 2022-06-17 10:20:00 Nadege Obrien spital AMYLASE LEVEL 2022-06-17 10:20:00 Nadege Obrien spital FERRITIN LEVEL 2022-06-17 10:20:00 Nadege Obrien spital TOTAL IRON BINDING 2022-06-17 10:20:00 [facility] Nadege [facility] CAPACITY URINE CULTURE 2022-06-17 08:11:[address] LOWER EXTREMITY WO 2022-06-17 08:09:39 Nadege Obrien [facility] CONTRAST LEFT CT HEAD WO CONTRAST 2022-06-17 07:54:30 MicahNadege [facility] URINALYSIS SCREEN AND 2022-06-17 07:40:00 Micah [facility] MICROSCOPY, WITH REFLEX TO CULTURE SODIUM LEVEL, URINE, 2022-06-17 07:40:00 [facility] CHLORIDE LEVEL, URINE, 2022-06-17 07:40:00 [facility] RANDOM OSMOLALITY, URINE 2022-06-17 07:40:00 [facility] HCG QUALITATIVE, URINE 2022-06-17 07:40:00 [facility] SCREEN ECG 12-LEAD 2022-06-17 06:15:21 [facility] spital METHICILLIN-RESISTANT 2022-06-17 05:35:00 [facility] STAPHYLOCOCCUS AUREUS (MRSA), ANIRUDH LACTIC ACID LEVEL 2022-06-17 05:35:00 [facility] PROCALCITONIN 2022-06-17 05:35:00 [facility] spital XR FOOT 3+ VW LEFT 2022-06-17 04:01:51 [facility] Rogelio TROPONIN T 2022-06-17 03:46:00 Keith Atkinson [facility] spital Kunyeyo TROPONIN, I-STAT 2022-06-17 00:39:00 Keith Atkinson [facility] ospital Kunyeyo SEDIMENTATION RATE 2022-06-17 00:39:00 [facility] C-REACTIVE PROTEIN 2022-06-17 00:39:[address] [facility] [address] RENAL STONE PROTOCOL 2022-06-16 23:59:00 [facility] Rogelio XR CHEST 2 VW 2022-06-16 23:58:45 [facility] spital Rogelio COVID-19, INFLUENZA A&B, 2022-06-16 21:58:00 [facility] AND RSV QUALITATIVE RT-PCR Rogelio CBC WITH PLATELET AND 2022-06-16 21:58:00 [facility] DIFFERENTIAL Rogelio COMPREHENSIVE METABOLIC 2022-06-16 21:58:00 [facility] PANEL Rogelio TROPONIN, I-STAT 2022-06-16 21:58:00 Keith Atkinson [facility] ospital Kunyeyo B NATRIURETIC PEP, I-STAT 2022-06-16 21:58:00 [facility]io AMYLASE LEVEL 2022-06-16 21:58:00 Ishaan Tillman spital Rogelio ESTIMATED GFR 2022-06-16 21:58:00 Ishaan Tillman hyacinthtal Rogelio MANUAL DIFFERENTIAL 2022-06-16 21:58:00 [facility] ED PRELIMINARY 2022-06-16 21:57:50 Ishaan deng [facility] INTERPRETATION Rogelio BLOOD CULTURE, AEROBIC & 2022-06-16 21:05:00 Ishaan Tillman Met [facility] ANAEROBIC Rogelio BLOOD CULTURE, AEROBIC & 2022-06-16 21:00:00 Ishaan Tillman Met [facility] ANAEROBIC Rogelio ECG 12-LEAD 2022-06-15 21:51:22 Nadege Obrien Ho spital [id number] 2022-02-12 00:00:00 WAU [facility] [id number] 2022-02-12 00:00:00 WAHMU [facility] [id number] 2022-02-08 00:00:00 [facility] [id number] 2021-11-30 00:00:00 BOKSY [facility] [id number] 2021-11-27 00:00:00 MARY.01 [facility] [id number] 2021-11-27 00:00:00 MARY.01 [facility] [id number] 2021-10-15 00:00:00 NASLI.01 [facility] [id number] 2021-10-14 00:00:00 NASLI.01 [facility] [id number] 2021-10-12 00:00:00 NASLI.01 [facility] [id number] 2021-10-08 00:00:00 VUPH [facility] [id number] 2021-10-08 00:00:00 VUPH [facility] [id number] 2021-10-08 00:00:00 VUPH [facility] Plan of Care Planned Activity Planned Date Details Comments Source Future Scheduled 2022-10-01 COVID-19 VACCINE (#1) [facility] Test 13:25:54 [code = COVID-19 VACCINE (#1)] Future Scheduled 2022-10-01 [facility] Test 13:25:54 Pediatrics (0 to 5 Years) and At-Risk Patients (6 to 64 Years) (1 - PCV) [code = Pneumococcal Vaccine: Pediatrics (0 to 5 Years) and At-Risk Patients (6 to 64 Years) (1 - PCV)] Future Scheduled 2022-10-01 [facility]ETES[facility] 13:25:54 EXAM [code = DIABETES: RETINAL EYE EXAM] Future Scheduled 2022-10-01 URINE [facility]ALBUMIN [facility] Test 13:25:54 [code = URINE MICROALBUMIN] Future Scheduled 2022-10-01 Hepatitis C [facility] Test 13:25:54 (procedure) [code = 959855398] Future Scheduled 2022-10-01 [facility] Test 13:25:54 malignant neoplasm of cervix (procedure) [code = 061672955] Future Scheduled 2022-10-01 BREAST [facility]CER [facility] Test 13:25:54 SCREENING [code = BREAST CANCER SCREENING] Future Scheduled 2022-10-01 INFLUENZA VACCINE [facility] Test 13:25:54 [code = INFLUENZA VACCINE] Future Scheduled 2022-10-01 [facility] 13:25:54 [code = DIABETIC FOOT EXAM] Future Scheduled 2022-09-17 COVID-19 VACCINE (#1) [facility] Test 09:10:33 [code = COVID-19 VACCINE (#1)] Future Scheduled 2022-09-17 Pneumococcal Vaccine: [facility] Test 09:10:33 Pediatrics (0 to 5 Years) and At-Risk Patients (6 to 64 Years) (1 - PCV) [code = Pneumococcal Vaccine: Pediatrics (0 to 5 Years) and At-Risk Patients (6 to 64 Years) (1 - PCV)] Future Scheduled 2022-09-17 DIABETES: [facility] Test 09:10:33 EXAM [code = DIABETES: RETINAL EYE EXAM] Future Scheduled 2022-09-17 [facility] Test 09:10:33 [code = URINE MICROALBUMIN] Future Scheduled 2022-09-17 [facility] Test 09:10:33 (procedure) [code = 838010464] Future Scheduled 2022-09-17 [facility] Test 09:10:33 malignant neoplasm of cervix (procedure) [code = 014537239] Future Scheduled 2022-09-17 BREAST CANCER [facility] Test 09:10:33 SCREENING [code = BREAST CANCER SCREENING] Future Scheduled 2022-09-17 INFLUENZA VACCINE [facility] Test 09:10:33 [code = INFLUENZA VACCINE] Future Scheduled 2022-09-17 DIABETIC FOOT EXAM [facility] Test 09:10:33 [code = DIABETIC FOOT EXAM] Diagnostic Test 2022-09-17 HbA1c (hemoglobin [facility] Pending 00:00:00 A1c), blood [code = HbA1c (hemoglobin A1c), blood] Diagnostic Test 2022-09-17 glucose, fingerstick, Chr ist Clinic Pending 00:00:00 blood [code = glucose, fingerstick, blood] Future Scheduled 2022-09-07 COVID-19 VACCINE (#1) [facility] Test 14:47:37 [code = COVID-19 VACCINE (#1)] Future Scheduled 2022-09-07 Pneumococcal Vaccine: [facility] Test 14:47:37 Pediatrics (0 to 5 Years) and At-Risk Patients (6 to 64 Years) (1 - PCV) [code = Pneumococcal Vaccine: Pediatrics (0 to 5 Years) and At-Risk Patients (6 to 64 Years) (1 - PCV)] Future Scheduled 2022-09-07 DIABETES: RETINAL EYE [facility] Test 14:47:37 EXAM [code = DIABETES: RETINAL EYE EXAM] Future Scheduled 2022-09-07 [facility] 14:47:37 [code = URINE MICROALBUMIN] Future Scheduled 2022-09-07 Hepatitis C screening [facility] Test 14:47:37 (procedure) [code = 343662622] Future Scheduled 2022-09-07 [facility] Test 14:47:37 malignant neoplasm of cervix (procedure) [code = 561233719] Future Scheduled 2022-09-07 BREAST [facility]CER [facility] Test 14:47:37 SCREENING [code = BREAST CANCER SCREENING] Future Scheduled 2022-09-07 INFLUENZA VACCINE [facility] Test 14:47:37 [code = INFLUENZA VACCINE] Future Scheduled 2022-09-07 [facility] Test 14:47:37 [code = DIABETIC FOOT EXAM] Future Scheduled 2022-08-10 COVID-19 VACCINE (#1) [facility] Test 09:04:27 [code = COVID-19 VACCINE (#1)] Future Scheduled 2022-08-10 Pneumococcal Vaccine: [facility] Test 09:04:27 Pediatrics (0 to 5 Years) and At-Risk Patients (6 to 64 Years) (1 - PCV) [code = Pneumococcal Vaccine: Pediatrics (0 to 5 Years) and At-Risk Patients (6 to 64 Years) (1 - PCV)] Future Scheduled 2022-08-10 DIABETES: RETINAL EYE [facility] Test 09:04:27 EXAM [code = DIABETES: RETINAL EYE EXAM] Future Scheduled 2022-08-10 [facility] Test 09:04:27 [code = URINE MICROALBUMIN] Future Scheduled 2022-08-10 Hepatitis C screening [facility] Test 09:04:27 (procedure) [code = 333742620] Future Scheduled 2022-08-10 [facility] Test 09:04:27 malignant neoplasm of cervix (procedure) [code = 547881078] Future Scheduled 2022-08-10 BREAST [facility]CER [facility] Test 09:04:27 SCREENING [code = BREAST CANCER SCREENING] Future Scheduled 2022-08-10 INFLUENZA VACCINE [facility] Test 09:04:27 [code = INFLUENZA VACCINE] Future Scheduled 2022-08-10 [facility]ETIC [facility]OT [facility] Test 09:04:27 [code = DIABETIC FOOT EXAM] Encounters Start End Encounter Admission Attending Care Care Encounter Source Date/Time Date/Time Type Type Clinicians Facility Department ID 2022-09-20 2022-09-20 Outpatient [facility] [id number] [facility] 00:00:00 00:00:00 611 Clinic 2022-09-17 2022-09-17 Outpatient [facility] [id number] [facility] 00:00:00 00:00:00 0609 Clinic 2022-09-17 2022-09-17 Tahira BAIG [place] - [facility] 09 [facility] 00:00:00 00:00:00 [facility] 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 2022-09-16 2022-09-16 Outpatient [facility] [id number] [facility] 00:00:00 00:00:00 0608 Clinic 2022-09-15 2022-09-15 Outpatient [facility] [id number] [facility] 00:00:00 00:00:00 0607 [facility] 2022-09-01 2022-09-08 [facility], NeilMason 1.2.840.1 [id number] Methodi 23:08:00 16:41:00 Encounter Yusuf Bradyab 40757.1.[address] 3.430.2.7 Hospit a .3.792467 l .8 2022-09-01 2022-09-08 [facility], NeilMason 1.2.840.1 [id number] Methodi 23:08:00 16:41:00 Encounter Yusuf Bradyab 92944.1.[address] 3.430.2.7 Hospit a .3.412607 l .8 2022-09-08 2022-09-08 Orders Navarrete, Evelia 1.2.840.1 [id number] 21 [id number] Methodi 00:00:00 00:00:[address] 3.430.2.7 Hospit a .3.348245 l .8 2022-09-08 2022-09-08 Orders Navarrete, Evelia 1.2.840.1 [id number] Methodi 00:00:00 00:00:[address] 3.430.2.7 Hospit a .3.016273 l .8 2022-09-02 2022-09-02 Travel 1.2.840.1 1.2.265.732 1402 [id number] Methodi 00:00:00 00:00:[address] 3.430.2.7 0.2.7.3.698 Ho spita .3.952864 084.8 l .8 2022-09-02 2022-09-02 Travel 1.2.840.1 1.2.970.334 7123 336778 Methodi 00:00:00 00:00:[address] 3.430.2.7 0.2.7.3.698 Ho spita .3.009063 084.8 l .8 2022-08-26 2022-08-27 Emergency Nweze, 1.2.840.1 [id number] 2099 [id number] Methodi 23:54:00 04:10:[address] Kristan 3.430.2.7 Hosp sonya .3.369245 l .8 2022-08-26 2022-08-27 Emergency Nweze, 1.2.840.1 [id number] 2099 [id number] Methodi 23:54:00 04:10:[address] Kristan 3.430.2.7 Hosp sonya .3.387535 l .8 2022-08-26 2022-08-26 Travel 1.2.840.1 1.2.336.845 2506 508623 Methodi 00:00:00 00:00:[address] 3.430.2.7 0.2.7.3.698 Ho spita .3.391514 084.8 l .8 2022-08-26 2022-08-26 Travel 1.2.840.1 1.2.980.754 0858 886110 Methodi 00:00:00 00:00:[address] 3.430.2.7 0.2.7.3.698 Ho spita .3.934249 084.8 l .8 2022-08-12 2022-08-12 Abstract Mateo, Andria 1.2.840.1 [id number] 2 [id number] Methodi 00:00:00 00:00:[address] 3.430.2.7 Hospit a .3.174008 l .8 2022-08-12 2022-08-12 Abstract Andria Galindo 1.2.840.1 [id number] 2 [id number] Methodi 00:00:00 00:00:[address] 3.430.2.7 Hospit a .3.538363 l .8 2022-08-10 2022-08-[address] [facility] WENDY [id number] [facility] 18:52:00 00:15:[address] 2022-08-05 2022-08-05 Emergency Mantena, 1.2.840.1 [id number] Methodi 18:57:00 20:12:[address] 3.430.2.7 Hospit a .3.471258 l .8 2022-08-05 2022-08-05 Emergency Mantena, 1.2.840.1 [id number] 382 [id number] Methodi 18:57:00 20:12:[address] 3.430.2.7 Hospit a .3.039822 l .8 2022-08-05 2022-08-05 Travel 1.2.840.1 1.2.774.583 2633 [id number] Methodi 00:00:00 00:00:[address] 3.430.2.7 0.2.7.3.698 Ho spita .3.439759 084.8 l .8 2022-08-05 2022-08-05 Travel 1.2.840.1 1.2.908.598 4935 906571 Methodi 00:00:00 00:00:[address] 3.430.2.7 0.2.7.3.698 Ho spita .3.271260 084.8 l .8 2022-06-29 2022-06-29 Orders ObHemalatha capellan 1.2.840.1 [id number] 442 [id number] Methodi 00:00:00 00:00:[address] 3.430.2.7 Hospit a .3.958458 l .8 2022-06-29 2022-06-29 [facility] Hemalatha Guallpa 1.2.840.1 [id number] 596 [id number] Methodi 00:00:00 00:00:[address] 3.430.2.7 Hospit a .3.341441 l .8 2022-06-16 2022-06-23 [facility] 1.2.840.1 1 [id number] Methodi 15:30:00 20:22:00 Encounter Akua Obrienan 39139.1.[address] Micah, Nadege 3.430.2.7 [facility] Yusuf .3.604272 l David Zamora .8 Nan Gresham 2022-06-16 2022-06-23 [facility].2.840.1 1 [id number] Methodi 15:30:00 20:22:00 Encounter Akua Obrienan 12263.1.[address] Micah, Nadege 3.430.2.7 [facility] Yusuf .3.650319 l David Zamora .8 Nan Gresham 2022-06-19 2022-06-19 Surgery Demetrio, 1.2.840.1 [id number] 5476 Methodi 08:00:00 09:20:[address] Kunjan 3.430.2.7 Hospit a .3.191402 l .8 2022-06-19 2022-06-19 Surgery Demetrio, 1.2.840.1 [id number] 7532 Methodi 08:00:00 09:20:[address] Kunjan 3.430.2.7 Hospit a .3.453977 l .8 2022-06-19 2022-06-19 Anesthesia Tom, Cleo 1.2.840.1 [id number] Methodi 07:50:00 08:39:00 Event Cong Pearson Redd 58352.1.[address] 3.430.2.7 Hospit a .3.801093 l .8 2022-06-19 2022-06-19 Anesthesia Tom Cleo 1.2.840.1 [id number] 432 [id number] Methodi 07:50:00 08:39:00 Event Cong Pearson Redd 67537.1.[address] 3.430.2.7 Hospit a .3.606755 l .8 2022-06-17 2022-06-17 Surgery Demetrio, 1.2.840.1 [id number] 0135 Methodi 07:10:00 08:40:[address] Kunjan 3.430.2.7 Hospit a .3.315077 l .8 2022-06-17 2022-06-17 Surgery Demetrio, 1.2.840.1 [id number] 2063 Methodi 07:10:00 08:40:[address] Kunjan 3.430.2.7 Hospit a .3.024312 l .8 2022-06-17 2022-06-17 Anesthesia Pasdar-Ambar 1.2.840.1 [id number] Methodi 06:43:00 07:34:00 Event janie, 71281.1.[address] Jhon 3.430.2.7 Hosp sonya .3.769498 l .8 2022-06-17 2022-06-17 Anesthesia Pasdar-Ambar 1.2.840.1 [id number] Methodi 06:43:00 07:34:00 Event janie, 33430.1.[address] Jhon 3.430.2.7 Hosp sonya .3.785044 l .8 2022-06-16 2022-06-16 Travel 1.2.840.1 1.2.727.061 6908 511174 Methodi 00:00:00 00:00:[address] 3.430.2.7 0.2.7.3.698 Ho spita .3.708186 084.8 l .8 2022-06-16 2022-06-16 Travel 1.2.840.1 1.2.033.691 7290 441587 Methodi 00:00:00 00:00:[address] 3.430.2.7 0.2.7.3.698 Ho spita .3.349122 084.8 l .8 2022-03-11 2022-03-11 [id number] 00:00:00 00:00:00 JIMMIE 2022-02-08 2022-02-13 Inpatient EM ONI MayaPM MEDI.01 [id number] [facility] 00:23:00 13:44:00 Musaddiq 12 [facility] 2022-02-08 2022-02-08 Outpatient Zulma, ONICL LABO [id number] [facility] 00:43:00 00:43:00 Musaddiq 97 [facility] 2021-11-25 2021-12-07 Inpatient EM CRYSTAL Castle INTE.02 [id number] [facility] 18:22:00 18:52:00 Yusuf 30 [facility] 2021-10-08 2021-10-22 Inpatient EM ONI ShepherdCL INTE [id number] [facility] 21:44:00 18:23:00 Delisa [id number] [facility] 2021-10-08 2021-10-22 Inpatient EM Cora, ONICL INTE [id number] [facility] 21:44:00 18:23:00 Delisa 26 [facility] 2021-10-09 2021-10-09 Outpatient ONI GalvezCL LABO [id number] [facility] 00:42:00 00:42:00 Chuy 73 [facility] 2021-10-09 2021-10-09 Outpatient ONI GalvezCL HCACL [id number] [facility] 00:42:00 00:42:00 Chuy [id number] [facility] 2021-10-08 2021-10-08 Emergency EM Silvia HCAPM WENDY [id number] [facility] 13:58:00 20:10:00 Chuy 63 [facility] 2021-10-08 2021-10-08 Emergency EM CRYSTAL Vega HCAPM [id number] [facility] 13:58:00 20:10:00 Chuy [id number] [facility] 2017-06-17 2017-06-[address] [facility] [id number] [place] 00:00:00 00:00:00 [facility] Results Test Description Test Time Test Comments Results Result Comments Source Hemoglobin A1c/Hemoglobin.total in Blood 2022-09-17 15:45:47 Test Item Value Reference Range Interpretation Comme nts HbA1c (test code = HbA1c) 8.2 [facility] [Mass/volume] in Capillary [id number] 15:34:50 Test Item Value Reference Range Interpretation Comments Blood Glucose: mg/dl (test code = Blood 502 Glucose: mg/dl) [facility] [id number] 17:32:00 Test Item Value Reference Range Interpretation Comments POC glucose (test code 119 mg/dL 65-99 H Opera tor Name: Estuardo = 61091-5) UmbargerDevice ID: [id number] able: HMW Notified operating engineer apprentice Interpretation Abnormal (test code = 89825-2) [facility] [id number] 17:32:00 Test Item Value Reference Range Interpretation Comments POC glucose (test code 119 mg/dL 65-99 H Opera tor Name: Estuardo = 79294-7) UmbargerDevice ID: [id number] able: HMW Notified operating engineer apprentice Interpretation Abnormal (test code = 98660-1) [facility] [id number] 16:18:00 Test Item Value Reference Range Interpretation Comments POC glucose (test code 160 mg/dL 65-99 H Opera tor Name: Elianapeggy = 40087-8) MarcelDevice ID: [id number] able: HMW Notified operating engineer apprentice Interpretation Abnormal (test code = 07956-9) [facility]2023-05-29 19:28:00 Test Item Value Reference Interpretation Comments Range Anaerobic culture Porphyromonas A Specimen isolate (test someraeThe InformationSpe [facility] code = 81575-5) performance Source: Woun dSpecimen characteristics of Site: [place] t, left this assay on this isolatewere validated by the Microbiology Laboratory at [facility]. This source has not been approved by the U.S. Food and Drug Administration. The results are not intended to be used as the sole means for clinical diagnosis or patient management. The Microbiology Laboratory is authorized under the clinical Laboratory Improvement Amendments of 1988 (CLIA-88) to perform high complexity testing. Lab Abnormal Interpretation (test code = 26895-8) [facility]2023-05-29 19:28:00 Test Item Value Reference Interpretation Comments Range Anaerobic culture Porphyromonas A Specimen isolate (test someraeThe InformationSpe [facility] code = 84643-0) performance Source: Woun dSpecimen characteristics of Site: [place] t, left this assay on this isolatewere validated by the Microbiology Laboratory at [facility]. This source has not been approved by the U.S. Food and Drug Administration. The results are not intended to be used as the sole means for clinical diagnosis or patient management. The Microbiology Laboratory is authorized under the clinical Laboratory Improvement Amendments of 1988 (CLIA-88) to perform high complexity testing. Lab Abnormal Interpretation (test code = 76930-9) [facility]2023-05-29 19:28:00 Test Item Value Reference Interpretation Comments Range Anaerobic culture Porphyromonas A Specimen isolate (test someraeThe InformationSpe [facility] code = 03185-0) performance Source: Woun dSpecimen characteristics of Site: [place] t, left this assay on this isolatewere validated by the Microbiology Laboratory at [facility]. This source has not been approved by the U.S. Food and Drug Administration. The results are not intended to be used as the sole means for clinical diagnosis or patient management. The Microbiology Laboratory is authorized under the clinical Laboratory Improvement Amendments of 1988 (CLIA-88) to perform high complexity testing. Lab Abnormal Interpretation (test code = 34242-8) [facility], (w Contrast, Strain and 3D if needed)2022-09-05 15:50:16 Test Item Value Reference Interpretation Comments Range IVS,d (test code = 0.84 cm 0.6-1.19 8796608520) IVS s 2D (test code 1.43 cm = 0637428059) LVPWD,d (test code = 1.07 cm 0.60-1.19 1023218216) LVPW s PLAX (test 1.31 cm code = 2473034605) LV,s (test code = 3.65 cm 8406742132) LV mass (test code = 173.59 g 0429456068) LVOT Diam,S (test 1.97 cm code = 6041847412) LV SHELTON VOL (test 120.24 ml 46-106 A code = 9448109071) LV SYS VOL (test 56.08 ml 14-42 A code = 7164133636) MV [place] E [place] (test 1.00 m/s code = 0190567421) MV Peak A [place] (test 0.60 m/s code = 5328626011) E/A ratio (test code 1.67 <=0.8 A = 4336418712) E wave decelartion 185.12 See_Comment A [Automat ed time (test code = message] T he 8975016485) system which generated this result transmitted reference range : 200 msec. The reference range was not used to interpret this result as normal/abnormal . LV,d (test code = 5.04 cm 1717992308) IVS/LVPW,2D (test 0.79 code = 9906826613) LV EF,2D (test code 62.09 % = 6313418092) LV FS Cube 2D (test 27.62 code = 4716969945) LV FS Teich 2D (test 27.62 code = 5906768327) LV SV Teich 2D (test 64.16 ml code = 6557542245) LV Vol s Teich PSAX 56.08 ml (test code = 6531521106) LVOT stroke volume 0.49 cm3 (test code = 8631160598) Left Atrium 3.82 cm <=3.8 A Dimension Anterior (test code = 5859968697) LA Vol MOD A4C (test 49.39 ml code = 4707707377) LA area s A4C (test 19.64 cm2 code = 3574498799) LVOT area (test code 3.05 cm2 = 2191127727) LVOT Vmax (test code 0.92 m/s = 5311774551) AoV Mean PG (test 3.41 See_Comment [Automate d code = 7271771243) message] The system which generated this result transmitted reference range : 20 mmHg. The reference range was not used to interpret this result as normal/abnormal . AoV Peak PG (test 6.37 mmHg code = 7443389378) AV LVOT peak 3.37 mmHg gradient (test code = 0244892721) AoV Area, Vmax (test 2.23 cm2 >=1.5 code = 3471954809) LVOT VTI (CM) (test 16.00 cm code = 6566449680) AoV Vmax (test code 1.26 m/s = 8371938014) AoV Vmn (test code = 0.87 m/s 2534321720) AoV Area, VTI (test 1.83 cm2 code = 8793138483) LVOT CO (test code = 3.77 l/min 1440400482) LVOT HR for LVOT CO 79.02 bpm (test code = 6117630622) Velocity Ratio 0.73 m/s (V1/V2) (test code = 4689) MV mean gradient 0.88 See_Comment [Automated (test code = message] The [id number]) system which generated this result transmitted reference range : 5 mmHg. The reference range was not used to interpret this result as normal/abnormal . MR peak grad (test 2.05 mmHg code = 4735701856) MV stenosis pressure 53.68 ms <=150 1/2 time (test code = 7546894497) MV E A ratio (test 1.68 code = 3865392078) MV valve area p 1/2 4.10 cm2 method (test code = 8467644543) MV VTI Tips (test 0.16 m code = 5596807349) MV Vmax (test code = 0.72 m 8608875091) RVOT Vmax (test code 0.60 m/s = 5690747129) PV Mean Grad (test 1.44 mmHg code = 2308572550) PV Pk Grad (test 2.57 See_Comment [Automated code = 4585014435) message] The system which generated this result transmitted reference range : 36 mmHg. The reference range was not used to interpret this result as normal/abnormal . PV VTI (test code = 0.18 m 3294797680) RVOT pk grad (test 1.45 mmHg code = 1983554326) PV VMAX (test code = 0.80 m/s <=3 6101833447) PV Vmn (test code = 0.57 9626923554) Ao Root Diameter 2.57 cm <=3.99 (test code = 5318449669) Ao Root Diameter 2.57 cm (test code = 7428613118) Ascending aorta 2.04 cm (test code = 1863874432) Pred METS R1 (test 9.27 code = 6974628744) Pred Exer Dur R1 9.88 (test code = 8425396880) MV Decel slope (test 5.42 m/s2 code = 5909854543) LVPW pct thck PLAX 21.87 % (test code = 5821292666) LV vol s cube 2D 48.43 ml (test code = 0497832456) LV vol d cube 2D 127.73 ml (test code = 2252064742) LV SV Cube 2D (test 79.30 ml code = 1561678086) IVS pct thck PLAX 69.63 % (test code = 5698780824) Calc MPHR (test code 178.23 bpm = 2182315770) 85 of MPHR (test 151.50 code = 7508322783) RVOT VTI (test code 0.13 m = 4486495147) RVOT Vmn (test code 0.45 m/s = 4728459743) RVOT mean grad (test 0.89 mmHg code = 3390909368) LVOT mean grad (test 1.61 mmHg code = 2904394354) Aov area Vmn (test 2.10 cm2 code = 0473681661) MV AE ratio (test 0.59 code = 4589670259) LVOT Vmn (test code 0.60 = 5238373712) AoV VTI (test code = 0.26 m 5296119234) LVOT VTI (test code 0.16 m = 1213276998) BECKY (test code = BECKY) Left Ventricle: [...] artifact. Lab Interpretation Abnormal (test code = 68007-0) [facility], (w Contrast, Strain and 3D if needed)2022-09-05 15:50:16 Test Item Value Reference Interpretation Comments Range IVS,d (test code = 0.84 cm 0.6-1.19 0106795604) IVS s 2D (test code 1.43 cm = 0297811570) LVPWD,d (test code = 1.07 cm 0.60-1.19 2169721863) LVPW s PLAX (test 1.31 cm code = 4320619096) LV,s (test code = 3.65 cm 4174116864) LV mass (test code = 173.59 g 9426422052) LVOT Diam,S (test 1.97 cm code = 7632578554) LV SHELTON VOL (test 120.24 ml 46-106 A code = 8772732613) LV SYS VOL (test 56.08 ml 14-42 A code = 2936313362) MV Peak E [place] (test 1.00 m/s code = 2570145924) MV Peak A [place] (test 0.60 m/s code = 8398792372) E/A ratio (test code 1.67 <=0.8 A = 4130814379) E wave decelartion 185.12 See_Comment A [Automat ed time (test code = message] T he 4784081021) system which generated this result transmitted reference range : 200 msec. The reference range was not used to interpret this result as normal/abnormal . LV,d (test code = 5.04 cm 9470870369) IVS/LVPW,2D (test 0.79 code = 0300793255) LV EF,2D (test code 62.09 % = 9103423925) LV FS Cube 2D (test 27.62 code = 5241458431) LV FS Teich 2D (test 27.62 code = 3873113088) LV SV Teich 2D (test 64.16 ml code = 2822326651) LV Vol s Teich PSAX 56.08 ml (test code = 5222534584) LVOT stroke volume 0.49 cm3 (test code = 6564372578) Left Atrium 3.82 cm <=3.8 A Dimension Anterior (test code = 4101959001) LA Vol MOD A4C (test 49.39 ml code = 2841642307) LA area s A4C (test 19.64 cm2 code = 3005368915) LVOT area (test code 3.05 cm2 = 9419024261) LVOT Vmax (test code 0.92 m/s = 5671646825) AoV Mean PG (test 3.41 See_Comment [Automate d code = 1729224511) message] The system which generated this result transmitted reference range : 20 mmHg. The reference range was not used to interpret this result as normal/abnormal . AoV Peak PG (test 6.37 mmHg code = 2514309067) AV LVOT peak 3.37 mmHg gradient (test code = 0390007256) AoV Area, Vmax (test 2.23 cm2 >=1.5 code = 0201216304) LVOT VTI (CM) (test 16.00 cm code = 9528566260) AoV Vmax (test code 1.26 m/s = 7545867596) AoV Vmn (test code = 0.87 m/s 2373820140) AoV Area, VTI (test 1.83 cm2 code = 3094711213) LVOT CO (test code = 3.77 l/min 9595716222) LVOT HR for LVOT CO 79.02 bpm (test code = 2166048534) Velocity Ratio 0.73 m/s (V1/V2) (test code = 4689) MV mean gradient 0.88 See_Comment [Automated (test code = message] The 2699237366) system which generated this result transmitted reference range : 5 mmHg. The reference range was not used to interpret this result as normal/abnormal . MR peak grad (test 2.05 mmHg code = 0890007485) MV stenosis pressure 53.68 ms <=150 1/2 time (test code = 3683661742) MV E A ratio (test 1.68 code = 8532829695) MV valve area p 1/2 4.10 cm2 method (test code = 1850737776) MV VTI Tips (test 0.16 m code = 9364081776) MV Vmax (test code = 0.72 m 4237502268) RVOT Vmax (test code 0.60 m/s = 6764060608) PV Mean Grad (test 1.44 mmHg code = 1280701726) PV Pk Grad (test 2.57 See_Comment [Automated code = 9879181578) message] The system which generated this result transmitted reference range : 36 mmHg. The reference range was not used to interpret this result as normal/abnormal . PV VTI (test code = 0.18 m 6480091406) RVOT pk grad (test 1.45 mmHg code = 2501195043) PV VMAX (test code = 0.80 m/s <=3 5431914051) PV Vmn (test code = 0.57 3523898700) Ao Root Diameter 2.57 cm <=3.99 (test code = 1868261004) Ao Root Diameter 2.57 cm (test code = 1357214176) Ascending aorta 2.04 cm (test code = 4546010310) Pred METS R1 (test 9.27 code = 2628628061) Pred Exer Dur R1 9.88 (test code = 4519324769) MV Decel slope (test 5.42 m/s2 code = 1874093999) LVPW pct thck PLAX 21.87 % (test code = 4966989360) LV vol s cube 2D 48.43 ml (test code = 0439486547) LV vol d cube 2D 127.73 ml (test code = 8480517376) LV SV Cube 2D (test 79.30 ml code = 7488013346) IVS pct thck PLAX 69.63 % (test code = 2419389686) Calc MPHR (test code 178.23 bpm = 8795150406) 85 of MPHR (test 151.50 code = 1928710066) RVOT VTI (test code 0.13 m = 6078009007) RVOT Vmn (test code 0.45 m/s = 1655186334) RVOT mean grad (test 0.89 mmHg code = 6247044416) LVOT mean grad (test 1.61 mmHg code = 2989925614) Aov area Vmn (test 2.10 cm2 code = 2701254810) MV AE ratio (test 0.59 code = 2891178024) LVOT Vmn (test code 0.60 = 6528528171) AoV VTI (test code = 0.26 m 4579984452) LVOT VTI (test code 0.16 m = 0330701670) BECKY (test code = BECKY) Left Ventricle: [...] artifact. Lab Interpretation Abnormal (test code = 62749-8) [facility] [id number] 12:20:00 Test Item Value Reference Range Interpretation Comments Urine culture (test SEE COMMENT Bacteriu chaitanya screen code = 0763372) negative. [facility] [id number] 12:20:00 Test Item Value Reference Range Interpretation Comments Urine culture (test SEE COMMENT Bacteriu chaitanya screen code = 8005542) negative. [facility] [id number] 12:20:00 Test Item Value Reference Range Interpretation Comments Urine culture (test SEE COMMENT Bacteriu chaitanya screen code = 5937132) negative. [facility] [id number] 22:29:00 Test Item Value Reference Range Interpretation [...] TOTAL (test code = ALKP) CBC W/AUTO [id number] 21:46:00 Test Item Value Reference Range Interpretation [...] code NO DIFF/SCN CRITERIA = MDIFF) AFB [id number] 00:13:00 Test Item Value Reference Range Interpretation Comments AFB culture No growth Specimen isolate (test after 6 weeks InformationSp ecimen code = 543-9) of Source: [place] geSpecimen incubation. Site: Foot: Lef t foot culture [facility] [id number] 00:13:00 Test Item Value Reference Range Interpretation Comments AFB culture No growth Specimen isolate (test after 6 weeks InformationSp ecimen code = 543-9) of Source: [place] geSpecimen incubation. Site: Foot: Lef t foot culture [facility] [id number] 00:13:00 Test Item Value Reference Range Interpretation Comments AFB culture No growth Specimen isolate (test after 6 weeks InformationSp ecimen code = 543-9) of Source: [place] geSpecimen incubation. Site: [facility] [id number] 00:13:00 Test Item Value Reference Range Interpretation Comments AFB culture No growth Specimen isolate (test after 6 weeks InformationSp ecimen code = 543-9) of Source: [place] geSpecimen incubation. Site: [facility] [id number] 00:15:00 Test Item Value Reference Range Interpretation Comments Fungus culture No growth Specimen isolate (test after 4 weeks InformationSp ecimen code = 580-1) of Source: [place] geSpecimen incubation. Site: Foot: [facility] [id number] 00:15:00 Test Item Value Reference Range Interpretation Comments Fungus culture No growth Specimen isolate (test after 4 weeks InformationSp ecimen code = 580-1) of Source: [place] geSpecimen incubation. Site: Foot: [facility] [id number] 00:15:00 Test Item Value Reference Range Interpretation Comments Fungus culture No growth Specimen isolate (test after 4 weeks InformationSp ecimen code = 580-1) of Source: [place] geSpecimen incubation. Site: Foot: [facility]ef [facility] [id number] 00:15:00 Test Item Value Reference Range Interpretation Comments Fungus culture No growth Specimen isolate (test after 4 weeks InformationSp ecimen code = 580-1) of Source: [place] geSpecimen incubation. Site: Foot: [facility] [id number] 13:44:20 Test Item Value Reference Range Interpretation Comments Case number (test code = [id number]) Surgical pathology See link below for report (test code = PDF Lab Report 2255) Result status (test code This is Final Report = 6796683) for [id number] [facility] [id number] 13:44:20 Test Item Value Reference Range Interpretation Comments Case number (test code = [id number]) Surgical pathology See link below for report (test code = PDF Lab Report 2255) Result status (test code This is Final Report = 3160052) for [id number] [address] [facility] [id number] 13:44:20 Test Item Value Reference Range Interpretation Comments Case number (test code = [id number]) Surgical pathology See link below for report (test code = PDF Lab Report 2255) Result status (test code This is Final Report = 0809728) for [id number] [address] pathology [id number] 13:44:20 Test Item Value Reference Range Interpretation Comments Case number (test code = [id number]) Surgical pathology See link below for report (test code = PDF Lab Report 2255) Result status (test code This is Final Report = 5532432) for [id number] [address] [id number] 21:23:00 Test Item Value Reference Range Interpretation Comments POC glucose (test code = 125 mg/dL 65-99 H Ope rator Name: Vasquez Lund ID: [id number] able: RN Notified Lab Interpretation (test Abnormal code = 53207-6) [facility] [id number] 14:56:00 Test Item Value Reference Range Interpretation Comments Anaerobic No anaerobic Specimen culture isolate organisms InformationS pecimen (test code = isolated. Source: [facility] 25253-4) Site: Foot: [facility]ef t [facility] [id number] 21:54:00 Test Item Value Reference Range Interpretation Comments AFB stain No acid fast Specimen (test code = bacilli (AFB) InformationSpe cimen 676-7) seen. Source: [facility] Site: Foot: Lef t foot culture [facility] [id number] 21:54:00 Test Item Value Reference Range Interpretation Comments AFB stain No acid fast Specimen (test code = bacilli (AFB) InformationSpe cimen 676-7) seen. Source: [facility] Site: Foot: Lef t foot culture [facility] [id number] 21:54:00 Test Item Value Reference Range Interpretation Comments AFB stain No acid fast Specimen (test code = bacilli (AFB) InformationSpe cimen 676-7) seen. Source: [facility] Site: Foot: Lef t foot culture [facility] [id number] 21:54:00 Test Item Value Reference Range Interpretation Comments AFB stain No acid fast Specimen (test code = bacilli (AFB) InformationSpe cimen 676-7) seen. Source: [facility] Site: Foot: Lef t foot culture [facility] [id number] 18:01:00 Test Item Value Reference Range Interpretation Comments Fungus smear No fungi Specimen (test code = observed. InformationSpec imen Source: 1443) [facility] Site: Foot: Left foot culture [facility] [id number] 18:01:00 Test Item Value Reference Range Interpretation Comments Fungus smear No fungi Specimen (test code = observed. InformationSpec imen Source: 1443) [facility] Site: Foot: [facility] foot [facility] [id number] 18:01:00 Test Item Value Reference Range Interpretation Comments Fungus smear No fungi Specimen (test code = observed. InformationSpec imen Source: 1443) [facility] n Site: Foot: [facility] foot [facility] [id number] 18:01:00 Test Item Value Reference Range Interpretation Comments Fungus smear No fungi Specimen (test code = observed. InformationSpec imen Source: 1443) [facility]Spec[facility] n Site: Foot: Left foot culture [facility] [id number] 02:31:00 Test Item Value Reference Range Interpretation Comments Gram stain No WBC's or Specimen isolate (test organisms seen. Information Specimen code = 1469) Source: [facility] eSpecimen Site: Foot: Lef t foot culture [facility] [id number] 18:47:00 Test Item Value Reference Range Interpretation Comments Urine culture Mixed adelso Specimen isolate (test <=10-3 col/cc InformationSp ecimen code = 86948-0) Source: Urin eSpecimen Site: Clean cat ch [facility] 12 [id number] 17:51:52 Test Item Value Reference Range Interpretation Comments Ventricular rate (test 87 code = 253) Atrial rate (test code 87 = 255) MD interval (test code 178 = 266) QRSD [...] of 31-OCT-2012 10:14,-No significant change was found- [facility] 12 [id number] 17:51:52 Test Item Value Reference Range Interpretation Comments Ventricular rate (test 87 code = 253) Atrial rate (test code 87 = 255) MD interval (test code 178 = 266) QRSD [...] of 31-OCT-2012 10:14,-No significant change was found- [address]2023-03-09 17:51:52 Test Item Value Reference Range Interpretation Comments Ventricular rate (test 87 code = 253) Atrial rate (test code 87 = 255) MD interval (test code 178 = 266) QRSD [...] of 31-OCT-2012 10:14,-No significant change was found- [address]2023-03-09 17:51:52 Test Item Value Reference Range Interpretation Comments Ventricular rate (test 87 code = 253) Atrial rate (test code 87 = 255) MD interval (test code 178 = 266) QRSD [...] of 31-OCT-2012 10:14,-No significant change was found- [facility] ED Preliminary Interpretation - Not an [id number] 21:57:50 Test Item Value Reference Range Interpretation Comments BECKY (test code = BECKY) Ishaan Tillman MD 06/18/2022 7:08 [facility] ED Preliminary Interpretation - Not an OrderPerformed by: Ishaan Tillman MDAuthorized by: Ishaan Tillman MD ECG reviewed by ED Physician in the absence of a jacker feeder: yes Interpretation: Interpretation: abnormal Quality: Tracing quality: Limited by artifactRate: ECG rate: 114 ECG rate assessment: tachycardic Rhythm: Rhythm: sinus tachycardia Ectopy: Ectopy: none QRS: QRS axis: Normal QRS intervals: NormalConduction: Conduction: normal ST segments: ST segments: NormalT waves: T waves: inverted Inverted: AVLComments: MD 152. QRS 96. QTc 443. Lab Interpretation Abnormal (test code = 91129-9) [facility] Preliminary Interpretation - Not an [id number] 21:57:50 Test Item Value Reference Range Interpretation Comments BECKY (test code = BECKY) Ishaan Tillman MD 06/18/2022 7:08 [facility] ED Preliminary Interpretation - Not an OrderPerformed by: Ishaan Tillman MDAuthorized by: Ishaan Tillman MD ECG reviewed by ED Physician in the absence of a jacker feeder: yes Interpretation: Interpretation: abnormal Quality: Tracing quality: Limited by artifactRate: ECG rate: 114 ECG rate assessment: tachycardic Rhythm: Rhythm: sinus tachycardia Ectopy: Ectopy: none QRS: QRS axis: Normal QRS intervals: NormalConduction: Conduction: normal ST segments: ST segments: NormalT waves: T waves: inverted Inverted: AVLComments: MD 152. QRS 96. QTc 443. Lab Interpretation Abnormal (test code = 44897-6) [facility] ED Preliminary Interpretation - Not an [id number] 21:57:50 Test Item Value Reference Range Interpretation Comments BECKY (test code = BECKY) Ishaan Tillman MD 06/18/2022 7:08 [facility] ED Preliminary Interpretation - Not an OrderPerformed by: Ishaan Tillman MDAuthorized by: Ishaan Tillman MD ECG reviewed by ED Physician in the absence of a jacker feeder: yes Interpretation: Interpretation: abnormal Quality: Tracing quality: Limited by artifactRate: ECG rate: 114 ECG rate assessment: tachycardic Rhythm: Rhythm: sinus tachycardia Ectopy: Ectopy: none QRS: QRS axis: Normal QRS intervals: NormalConduction: Conduction: normal ST segments: ST segments: NormalT waves: T waves: inverted Inverted: AVLComments: MD 152. QRS 96. QTc 443. Lab Interpretation Abnormal (test code = 50412-0) [facility] ED Preliminary Interpretation - Not an [id number] 21:57:50 Test Item Value Reference Range Interpretation Comments BECKY (test code = BECKY) Ishaan Tillman MD 06/18/2022 7:08 [facility] ED Preliminary Interpretation - Not an OrderPerformed by: Ishaan Tillman MDAuthorized by: Ishaan Tillman MD ECG reviewed by ED Physician in the absence of a jacker feeder: yes Interpretation: Interpretation: abnormal Quality: Tracing quality: Limited by artifactRate: ECG rate: 114 ECG rate assessment: tachycardic Rhythm: Rhythm: sinus tachycardia Ectopy: Ectopy: none QRS: QRS axis: Normal QRS intervals: NormalConduction: Conduction: normal ST segments: ST segments: NormalT waves: T waves: inverted Inverted: AVLComments: MD 152. QRS 96. QTc 443. Lab Interpretation Abnormal (test code = 31953-3) [facility] [id number] 16:55:25 Test Item Value Reference Range Interpretation Comments SARS-CoV-2 (COVID-19) RNA Not detected [Presence] in Respiratory specimen by ANIRUDH with probe detection (test code = 75306-6) Whether patient resides in a No congregate care setting (test code = 91326-9) Date and time of symptom onset Unknown (test code = 80601-4) Whether the patient was No hospitalized for condition of interest (test code = 00297-6) Whether the patient was admitted No to intensive care unit (ICU) for condition of interest (test code = 35409-2) Whether patient is employed in a No healthcare setting (test code = 49884-5) Whether the patient has symptoms No related to condition of interest (test code = 10056-3) status (test code = No 29736-3) [facility] [id number] 11:33:00 Test Item Value Reference Range Interpretation Comments GLUCOSE BEDSIDE TESTING (test code 136 mg/dL 70-110 H = GLUBED) GLUCOSE BEDSIDE [id number] 11:32:00 Test Item Value Reference Range Interpretation Comments GLUCOSE BEDSIDE TESTING (test code 162 mg/dL 70-110 H = GLUBED) GLUCOSE BEDSIDE [id number] 11:36:00 Test Item Value Reference Range Interpretation Comments GLUCOSE BEDSIDE TESTING (test code 154 mg/dL 70-110 H = GLUBED) GLUCOSE BEDSIDE [id number] 07:55:00 Test Item Value Reference Range Interpretation Comments GLUCOSE BEDSIDE TESTING (test code 135 mg/dL 70-110 H = GLUBED) [id number] 21:13:00 Test Item Value Reference Range Interpretation Comments VANCOMYCIN (test code = VANCO) 7.0 mcG/ML 5-40 N GLUCOSE BEDSIDE [id number] 20:28:00 Test Item Value Reference Range Interpretation Comments GLUCOSE BEDSIDE TESTING (test code 249 mg/dL 70-110 H = GLUBED) - XR CHEST 1 [id number] 19:31:00 [facility] 1980 Sex: F Name: HARLEEN MANZANO [facility] : 1980 Age/S: 41 / F [address] Unit #: [id number] Loc: [place] [address] Phys: Prakash Larsen MD Acct: [id number] Dis Date: Status: ADM IN PHONE #: [phone] Exam Date: 02/12/20221919 FAX #: Reason: PICC PLACEMENT EXAMS: CPT: [id number] XR CHEST 1 V 03055 Fluoro Time: DAP (Gy m2): Air Kerma [...] identified. IMPRESSION: Right-sided PICC line as above [id number] Reported and signed by: Shantell Macario M.D. CC: Prakash Larsen MD; Marshal Maya MD PAGE 1S[facility] 1980 Age/S: 41 / F [address] Unit #: [id number] Loc: [place] [address] Phys: Prakash Larsen MD Acct: [id number] Dis Date: Status: ADM IN PHONE #: [phone] Exam Date: 02/12/20221919 FAX #: Reason: PICC PLACEMENT EXAMS: CPT: [id number] XR CHEST 1 V 67688 Fluoro Time: DAP (Gy m2): Air Kerma (mGy): (Continued) Technologist: Yamila Chavez RT(R)(CT) Trnscb Date/Time: 02/12/2022 (1930) KhaiAG38 Orig Print D/T: S: 02/12/2022 (1934) PAGE 2 Signed ReportGLUCOSE BEDSIDE [id number] 16:39:00 Test Item Value Reference Range Interpretation Comments GLUCOSE BEDSIDE TESTING (test code 206 mg/dL 70-110 H = GLUBED) GLUCOSE BEDSIDE [id number] 07:31:00 Test Item Value Reference Range Interpretation Comments GLUCOSE BEDSIDE TESTING (test code 160 mg/dL 70-110 H = GLUBED) CREATINE KINASE (CK)2022-02-12 04:51:00 Test Item Value Reference Range Interpretation Comments CREATINE KINASE (CK) (test code = 139 Unit/L 26-192 N CK) GLUCOSE BEDSIDE [id number] 20:35:00 Test Item Value Reference Range Interpretation Comments GLUCOSE BEDSIDE TESTING (test code 216 mg/dL 70-110 H = GLUBED) GLUCOSE BEDSIDE [id number] 17:03:00 Test Item Value Reference Range Interpretation Comments GLUCOSE BEDSIDE TESTING (test code 198 mg/dL 70-110 H = GLUBED) GLUCOSE BEDSIDE [id number] 07:47:00 Test Item Value Reference Range Interpretation Comments GLUCOSE BEDSIDE TESTING (test code 161 mg/dL 70-110 H = GLUBED) [id number] 06:48:00 Test Item Value Reference Range Interpretation Comments VANCOMYCIN (test code = VANCO) 22.1 mcG/ML 5-40 N VANCOMYCIN [id number] 21:20:00 Test Item Value Reference Range Interpretation Comments VANCOMYCIN TROUGH (test code = 29.9 mcG/ML 10-20 H VANCT) GLUCOSE BEDSIDE [id number] 20:35:00 Test Item Value Reference Range Interpretation Comments GLUCOSE BEDSIDE TESTING (test code 186 mg/dL 70-110 H = GLUBED) GLUCOSE BEDSIDE [id number] 17:06:00 Test Item Value Reference Range Interpretation Comments GLUCOSE BEDSIDE TESTING (test code 260 mg/dL 70-110 H = GLUBED) VANCOMYCIN [id number] 12:38:00 Test Item Value Reference Range Interpretation Comments VANCOMYCIN PEAK (test code = 37.9 mcG/ML 20-40 N VANCP) GLUCOSE BEDSIDE [id number] 11:38:00 Test Item Value Reference Range Interpretation Comments GLUCOSE BEDSIDE TESTING (test code 177 mg/dL 70-110 H = GLUBED) GLUCOSE BEDSIDE [id number] 08:10:00 Test Item Value Reference Range Interpretation Comments GLUCOSE BEDSIDE TESTING (test code 149 mg/dL 70-110 H = GLUBED) GLUCOSE BEDSIDE [id number] 20:41:00 Test Item Value Reference Range Interpretation Comments GLUCOSE BEDSIDE TESTING (test code 267 mg/dL 70-110 H = GLUBED) GLUCOSE BEDSIDE [id number] 16:58:00 Test Item Value Reference Range Interpretation Comments GLUCOSE BEDSIDE TESTING (test code 262 mg/dL 70-110 H = GLUBED) GLUCOSE BEDSIDE [id number] 11:26:00 Test Item Value Reference Range Interpretation Comments GLUCOSE BEDSIDE TESTING (test code 246 mg/dL 70-110 H = GLUBED) - MRI LOW EXT W/O CONT [id number] 09:24:00 [facility] 1980 Sex: F FAX: Juan A Perkins [phone] Camps: PM St: ADM FAX: Marshal Maya MD [phone] Name: HARLEEN MANZANO [facility] : 1980 Age/S: 41/F [address] [facility] Unit #: [id number] Loc: [address] [place] [address] Phys: Pro Bustamante MD Acct: [id number] Dis Date: Status: ADM IN PHONE #: [phone] Exam Date: 02/09/2022 0856 FAX #: Reason: R/o abscess, osteomyelitis, gas producing infec EXAMS: CPT:[id number] MRI LOW EXT W/[place] [address] EXAM: - MRI LOW EXT W/O CONT [...] tissues: 4.5 x 0.8 x 1.5 cm fluid collection at the dorsal lateral aspect of the forefoot adjacent to the 4th and 5th digits with 2 sinus tracts at the lateral and dorsal aspect of the skin. IMPRESSION: Osteomyelitis involving the distal 5th metatarsal and around the 4th MTP joint as above. 4.5 cm fluid collection at the dorsal lateral aspect of the forefoot with 2 sinus tracts. at 0924 Reported and signed by: CORTNEY PARKINSON M.D. CC: Pro Pritchard MD; Marshal Maya MD Technologist: Hussein Tamayo RT(R)(CT)(MR) Transcribed Date/Time/By: 02/09/2022 (923) :KhaiHV2 Orig Print D/T: S: 02/09/2022 (5516) PAGE 1 Signed ReportGLUCOSE BEDSIDE [id number] 07:39:00 Test Item Value Reference Range Interpretation Comments GLUCOSE BEDSIDE TESTING (test code 243 mg/dL 70-110 H = GLUBED) GLUCOSE BEDSIDE [id number] 06:12:00 Test Item Value Reference Range Interpretation Comments GLUCOSE BEDSIDE TESTING (test code 307 mg/dL 70-110 H = GLUBED) BASIC METABOLIC [id number] 04:41:00 Test Item Value Reference Range Interpretation [...] CA) 8.6 MG/DL 8.5-10.1 N CBC W/AUTO [id number] 04:31:00 Test Item Value Reference Range Interpretation [...] NO DIFF/SCN CRITERIA = MDIFF) GLUCOSE BEDSIDE [id number] 22:52:00 Test Item Value Reference Range Interpretation Comments GLUCOSE BEDSIDE TESTING (test code 264 mg/dL 70-110 H = GLUBED) GLUCOSE BEDSIDE [id number] 21:22:00 Test Item Value Reference Range Interpretation Comments GLUCOSE BEDSIDE TESTING (test code 291 mg/dL 70-110 H = GLUBED) GLUCOSE BEDSIDE [id number] 12:12:00 Test Item Value Reference Range Interpretation Comments GLUCOSE BEDSIDE TESTING (test code 163 mg/dL 70-110 H = GLUBED) GLUCOSE BEDSIDE [id number] 07:27:00 Test Item Value Reference Range Interpretation Comments GLUCOSE BEDSIDE TESTING (test code 157 mg/dL 70-110 H = GLUBED) GLUCOSE BEDSIDE [id number] 01:57:00 Test Item Value Reference Range Interpretation Comments GLUCOSE BEDSIDE TESTING (test code 156 mg/dL 70-110 H = GLUBED) - XR FOOT 3+V [id number] 22:39:00 [facility] 1980 Sex: F Name: HARLEEN MANZANO [facility] : 1980 Age/S: 41 / F [address] [address] Unit #: [id number] Loc: [place] [address] Phys: Abdi Prabhakar VETERINARY X RAY OPERATOR Acct: [id number] Dis Date: Status: REG ER PHONE #: [phone] Exam Date: 02/07/20222199 FAX #: Reason: LEFT FOOT PAIN EXAMS: CPT: [id number] XR FOOT 3+[place] [address] Fluoro Time: DAP (Gy m2): Air Kerma (mGy): LOCATION: 8 HISTORY: Female, 41 years of age with left foot pain, wound. Surgery last month. EXAM: LEFT FOOT, 3 VIEWS COMPARISON: Previous left foot x-rays 11/25/2021 FINDINGS: The patient has had amputation of 5th toe at the level of distal metatarsal diaphysis. Soft tissue swelling and soft tissue wound noted at the amputation stump. 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 Osteolytic change in the head of 4th metatarsal and base of 4th proximal phalanx has progressed, now with pathologic non displaced fractures. Periosteal reaction is seen along the stump of 5th metatarsal. No other osteolytic lesions. IMPRESSION: 1. Open wound at 5th ray stump. 2. 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 3. 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 at 2239 Reported and signed by: Adri Urrutia MD CC: Abdi Prabhakar NPPAGE 1 Signed Report Name: HARLEEN MANZANO [facility] : 1980 Age/S: 41 / F [address] [address] Unit #: [id number] Loc: [place] [address] Phys: Abdi Prabhakar VETERINARY X RAY OPERATOR Acct: [id number] Dis Date: Status: REG ER PHONE #: [phone] Exam Date: 02/07/20222199 FAX #: Reason: LEFT FOOT PAIN EXAMS: CPT: [id number] XR FOOT 3+[place] [address] Fluoro Time: DAP (Gy m2): Air Kerma (mGy): (Continued) Technologist: Roslyn Llanos, RT(R)(CT) Trnscb Date/Time: 02/07/2022 (154) Mary Orig Print D/T: S: 02/07 (7781) PAGE 2 Signed ReportUA RFLX MICR CULT IF [id number] 22:21:00 Test Item Value Reference Range Interpretation [...] Dysuria/FrequencySOURCE OF URINE: CLEAN CATCHCOVID 19 INHOUSE [id number] 22:14:00 Test Item Value Reference Range Interpretation Comments COVID 19 INHOUSE AG NEGATIVE Negative Per otilia facturer, (test code = negative result s should [id number]) be treated aspr esumptive and, if inconsi [...] symptoms co nsistent with COVID-19. CBC W/AUTO [id number] 21:58:00 Test Item Value Reference Range Interpretation [...] code NO DIFF/SCN CRITERIA = MDIFF) HCG [id number] 21:56:00 Test Item Value Reference Range Interpretation Comments HCG SERUM (test < 1 mi-IU/ML 0-6 N 0 - 6 NOT P REGNANT > 6 code = HCG) SUGGESTIVE OF E YEHUDA RISES TWO FOLD EVERY 2 DAYS; S UGGEST RECONFIRMING AF TER 2 DAYS. 150,000-2 00[address] TRIMESTER 10 ,000 - 50,000 2ND & 3R D TRIMESTER BASIC METABOLIC [id number] 21:56:00 Test Item Value Reference Range Interpretation [...] CA) 9.0 MG/DL 8.5-10.1 N HEPATIC FUNCTION [id number] 21:56:00 Test Item Value Reference Range Interpretation [...] Unit/L 45-117 N code = ALKP) LACTIC [id number] 21:43:00 Test Item Value Reference Range Interpretation Comments LACTIC ACID (test code = LACT) 1.7 mmol/L 0.4-2.0 N [id number] 16:45:00 Test Item Value Reference Range Interpretation Comments SURGICAL (test code = SR) --------RUN DATE: 12/08/21 [facility] PAGE 1 RUN TIME: 1645 Specimen Inquiry RUN USER: INTERFACE --------PATIENT: HARLEEN MANZANO LOC: JOSE #: [id number] AGE/SX: 41/F ROOM: [facility] RE11/25/21REG DR: Yusuf Castle MD : 80 BED: 1 DIS: 12/07/21 STATUS: DIS IN TLOC: -------- SPEC #: [id number]:[id number] RECD: 11/27/21 STATUS: HUMAIRA ORELLANA #: [id number] LAURA: 11/27/21 [facility] DR: Yusuf Castle MD ENTERED: 11/27/21 SP TYPE: SURGICAL OTHR DR: No Primary or Family Physician Self Referred Jose Garland MD, Stephen Q MD Mendoza Requena, Daniel MDORDERED: 16430, 52387, 50207, ANATOMIC SPEC, SPECIMEN TRACK COPIES TO: No Primary or Family Physician [place] [address] [facility] [address] [place] [address] Jose Garland MD [address] [facility] [address] [place] [address] Jonathan Hernandez MD [address] [place] [address] [place] [address] [place] [address] PROCEDURES: 45857 (12/08/21-1639) 04251 (12/08/21-1639) 51187 (12/08/21) SPECIMEN TRACK (11/27/21) TISSUES: A. TOE, NOS - 5TH LEFT TOE CONTINUED ON NEXT PAGE --------RUN DATE: 12/08/21 [facility] PAGE 2 RUN TIME: 1645 Specimen Inquiry RUN USER: INTERFACE --------SPEC #: [id number]:[facility]:[id number] PATIENT: HARLEEN MANZANO #[id number] (Continued) FINAL DIAGNOSIS LEFT 5TH TOE, AMPUTATION: [...] submitted entirely asA2-A3. Technical component performed at [employer],[id number] , [place] [address] MICROSCOPIC DESCRIPTION Specimen is entirely submitted for [...] 1645 -------- END OF REPORT GLUCOSE BEDSIDE [id number] 16:19:00 Test Item Value Reference Range Interpretation Comments GLUCOSE BEDSIDE TESTING (test code 271 mg/dL 70-110 H = GLUBED) GLUCOSE BEDSIDE [id number] 11:59:00 Test Item Value Reference Range Interpretation Comments GLUCOSE BEDSIDE TESTING (test code 164 mg/dL 70-110 H = GLUBED) GLUCOSE BEDSIDE [id number] 08:18:00 Test Item Value Reference Range Interpretation Comments GLUCOSE BEDSIDE TESTING (test code 113 mg/dL 70-110 H = GLUBED) BASIC METABOLIC [id number] 04:37:00 Test Item Value Reference Range Interpretation [...] code = CA) 8.6 MG/DL 8.5-10.1 N [id number] 04:37:00 Test Item Value Reference Range Interpretation Comments PHOSPHOROUS (test code = PHOS) 3.6 MG/DL 2.5-4.9 N [id number] 04:37:00 Test Item Value Reference Range Interpretation Comments MAGNESIUM (test code = MAG) 1.6 MG/DL 1.8-2.4 L CBC W/AUTO [id number] 04:23:00 Test Item Value Reference Range Interpretation [...] NO DIFF/SCN CRITERIA = MDIFF) GLUCOSE BEDSIDE [id number] 20:13:00 Test Item Value Reference Range Interpretation Comments GLUCOSE BEDSIDE TESTING (test code 236 mg/dL 70-110 H = GLUBED) GLUCOSE BEDSIDE [id number] 17:06:00 Test Item Value Reference Range Interpretation Comments GLUCOSE BEDSIDE TESTING (test code 188 mg/dL 70-110 H = GLUBED) GLUCOSE BEDSIDE [id number] 11:39:00 Test Item Value Reference Range Interpretation Comments GLUCOSE BEDSIDE TESTING (test code 135 mg/dL 70-110 H = GLUBED) GLUCOSE BEDSIDE [id number] 08:11:00 Test Item Value Reference Range Interpretation Comments GLUCOSE BEDSIDE TESTING (test code = 89 mg/dL 70-110 N GLUBED) CBC W/AUTO [id number] 05:27:00 Test Item Value Reference Range Interpretation [...] NO DIFF/SCN CRITERIA = MDIFF) GLUCOSE BEDSIDE [id number] 19:29:00 Test Item Value Reference Range Interpretation Comments GLUCOSE BEDSIDE TESTING (test code 185 mg/dL 70-110 H = GLUBED) GLUCOSE BEDSIDE [id number] 15:49:00 Test Item Value Reference Range Interpretation Comments GLUCOSE BEDSIDE TESTING (test code 197 mg/dL 70-110 H = GLUBED) GLUCOSE BEDSIDE [id number] 11:52:00 Test Item Value Reference Range Interpretation Comments GLUCOSE BEDSIDE TESTING (test code 177 mg/dL 70-110 H = GLUBED) GLUCOSE BEDSIDE [id number] 08:04:00 Test Item Value Reference Range Interpretation Comments GLUCOSE BEDSIDE TESTING (test code 121 mg/dL 70-110 H = GLUBED) GLUCOSE BEDSIDE [id number] 16:44:00 Test Item Value Reference Range Interpretation Comments GLUCOSE BEDSIDE TESTING (test code 148 mg/dL 70-110 H = GLUBED) GLUCOSE BEDSIDE [id number] 11:42:00 Test Item Value Reference Range Interpretation Comments GLUCOSE BEDSIDE TESTING (test code 121 mg/dL 70-110 H = GLUBED) GLUCOSE BEDSIDE [id number] 07:54:00 Test Item Value Reference Range Interpretation Comments GLUCOSE BEDSIDE TESTING (test code = 79 mg/dL 70-110 N GLUBED) GLUCOSE BEDSIDE [id number] 20:33:00 Test Item Value Reference Range Interpretation Comments GLUCOSE BEDSIDE TESTING (test code 212 mg/dL 70-110 H = GLUBED) GLUCOSE BEDSIDE [id number] 16:07:00 Test Item Value Reference Range Interpretation Comments GLUCOSE BEDSIDE TESTING (test code 142 mg/dL 70-110 H = GLUBED) GLUCOSE BEDSIDE [id number] 11:50:00 Test Item Value Reference Range Interpretation Comments GLUCOSE BEDSIDE TESTING (test code = 85 mg/dL 70-110 N GLUBED) GLUCOSE BEDSIDE [id number] 07:21:00 Test Item Value Reference Range Interpretation Comments GLUCOSE BEDSIDE TESTING (test code 124 mg/dL 70-110 H = GLUBED) RENAL FUNCTION [id number] 05:07:00 Test Item Value Reference Range Interpretation [...] 64 Unit/L 26-192 N CK) GLUCOSE BEDSIDE [id number] 20:52:00 Test Item Value Reference Range Interpretation Comments GLUCOSE BEDSIDE TESTING (test code 151 mg/dL 70-110 H = GLUBED) GLUCOSE BEDSIDE [id number] 15:43:00 Test Item Value Reference Range Interpretation Comments GLUCOSE BEDSIDE TESTING (test code 183 mg/dL 70-110 H = GLUBED) GLUCOSE BEDSIDE [id number] 11:32:00 Test Item Value Reference Range Interpretation Comments GLUCOSE BEDSIDE TESTING (test code 116 mg/dL 70-110 H = GLUBED) GLUCOSE BEDSIDE [id number] 07:40:00 Test Item Value Reference Range Interpretation Comments GLUCOSE BEDSIDE TESTING (test code = 98 mg/dL 70-110 N GLUBED) BASIC METABOLIC [id number] 05:08:00 Test Item Value Reference Range Interpretation [...] CA) 8.4 MG/DL 8.5-10.1 L RENAL FUNCTION [id number] 05:08:00 Test Item Value Reference Range Interpretation Comments ALBUMIN (test code = ALB) 2.1 G/DL 3.4-5.0 L PHOSPHOROUS (test code = PHOS) 4.0 MG/DL 2.5-4.9 N THYROID STIMULATING [id number] 05:08:00 Test Item Value Reference Range Interpretation Comments THYROID STIMULATING HORMONE 1.370 mcIU/ML 0.340-4.820 N (test code = TSH) GLUCOSE BEDSIDE [id number] 20:22:00 Test Item Value Reference Range Interpretation Comments GLUCOSE BEDSIDE TESTING (test code 200 mg/dL 70-110 H = GLUBED) GLUCOSE BEDSIDE [id number] 16:44:00 Test Item Value Reference Range Interpretation Comments GLUCOSE BEDSIDE TESTING (test code 135 mg/dL 70-110 H = GLUBED) - XR CHEST 2 [id number] 15:56:00 [facility] 1980 Sex: F Name: HARLEEN MANZANO [facility] : 1980 Age/S: 41 / F [address] [address] Unit #: [id number] Loc: [place] [address] Phys: Yusuf Castle MD Acct: [id number] Dis Date: Status: ADM IN PHONE #: [phone] Exam Date: 12/01/2021 1510 FAX #: Reason: abnormal xr chest 1view EXAMS: CPT: [id number] XR CHEST 2 V 23808 Fluoro Time: DAP (Gy m2): Air Kerma (mGy): C3 TIME OF STUDY: 12/01/2021 12:29 PM REASON FOR EXAM: abnormal xr chest 1view COMPARISON: Chest radiograph one day prior FINDINGS: PA and lateral upright views of the chest were obtained. Support devices: Stable Lungs: Patchy bilateral airspace opacities are unchanged. Pleura: No pleural effusion or pneumothorax. Heart and Mediastinum: Normal cardiomediastinal silhouette and great vessels. Bones: Normal regional skeletal structures. IMPRESSION: 1. Stable patchy bilateral airspace opacities. 2. Previously questioned nodular density over theright upper chest is likely due to superimposed 1st rib artifact as it is not visualized on this exam. at 1556 Reported and signed by: Basilio Holcomb M.D. CC: Yusuf Castle MD PAGE 1 Signed Report Name: HARLEEN MANZANO [facility] : 1980 Age/S: 41 / F [address] [address] Unit #: [id number] Loc: [place] [address] Phys: Yusuf Castle MD Acct: [id number] Dis Date: Status: ADM IN PHONE #: [phone] Exam Date: 12/01/2021 1510 FAX #: Reason: abnormal xr chest 1view EXAMS: CPT: [id number] XR CHEST 2 V 51887 Fluoro Time: DAP (Gy m2): Air Kerma (mGy): (Continued) Technologist: James Osullivan, RT(R) Trnscb Date/Time: 12/01/2021(1556) tJORGE [email or web address].[email or web address] Orig Print D/T: S: 12/01/2021 (1600) PAGE 2 Signed ReportGLUCOSE BEDSIDE [id number] 11:39:00 Test Item Value Reference Range Interpretation Comments GLUCOSE BEDSIDE TESTING (test code 247 mg/dL 70-110 H = GLUBED) GLUCOSE BEDSIDE [id number] 07:34:00 Test Item Value Reference Range Interpretation Comments GLUCOSE BEDSIDE TESTING (test code 126 mg/dL 70-110 H = GLUBED) BASIC METABOLIC [id number] 05:47:00 Test Item Value Reference Range Interpretation [...] CA) 8.0 MG/DL 8.5-10.1 L RENAL FUNCTION [id number] 05:47:00 Test Item Value Reference Range Interpretation Comments ALBUMIN (test code = ALB) 1.9 G/DL 3.4-5.0 L PHOSPHOROUS (test code = PHOS) 4.0 MG/DL 2.5-4.9 N [id number] 05:47:00 Test Item Value Reference Range Interpretation Comments MAGNESIUM (test code = MAG) 1.5 MG/DL 1.8-2.4 L GLUCOSE BEDSIDE [id number] 20:43:00 Test Item Value Reference Range Interpretation Comments GLUCOSE BEDSIDE TESTING (test code 204 mg/dL 70-110 H = GLUBED) GLUCOSE BEDSIDE [id number] 16:33:00 Test Item Value Reference Range Interpretation Comments GLUCOSE BEDSIDE TESTING (test code 115 mg/dL 70-110 H = GLUBED) - XR CHEST 1 [id number] 15:26:00 [facility] 1980 Sex: F Name: HARLEEN MANZANO [facility] : 1980 Age/S: 41 / F [address] [address] Unit #: [id number] Loc: [place] [address] Phys: Pro Bustamante MD Acct: [id number] Dis Date: Status: ADM IN PHONE #: [phone] Exam Date: 11/30/2021 1510 FAX #: Reason: PICC PLACEMENT EXAMS: CPT: [id number] XR CHEST 1 V 80979 Fluoro Time: DAP (Gy m2): Air Kerma (mGy): Location: C3 EXAM: XR CHEST 1 VIEW INDICATION: PICC PLACEMENT COMPARISON: 11/25/2021 TECHNIQUE: AP Chest FINDINGS: Lines, tubes and hardware:Left PICC tip overlies the expected location of [...] appreciable pneumothorax. No radiographic evidence of acute car diopulmonary abnormality. 4. Incidental 1.7 cm superior right [...] PAGE 1 Signed Report Name: HARLEEN MANZANO [facility] : 1980 Age/S: 41 / F [address] [address] Unit #: [id number] Loc: [place] [address] Phys: Pro Bustamante MD Acct: [id number] Dis Date: Status: ADM IN PHONE #: [phone] Exam Date: 11/30/2021 1510 FAX #: Reason: PICC PLACEMENT EXAMS: CPT: [id number] XR CHEST 1 V 47216 Fluoro Time: DAP (Gy m2): Air Kerma (mGy): (Continued) Technologist: Tiffani Santiago RT(R)(CT) Trnscb Date/Time: 11/30/2021 (944) [id number] Orig Print D/T: S: 11/30/2021(7937) PAGE 2 Signed ReportGLUCOSE BEDSIDE [id number] 11:44:00 Test Item Value Reference Range Interpretation Comments GLUCOSE BEDSIDE TESTING (test code 214 mg/dL 70-110 H = GLUBED) GLUCOSE BEDSIDE [id number] 07:51:00 Test Item Value Reference Range Interpretation Comments GLUCOSE BEDSIDE TESTING (test code 133 mg/dL 70-110 H = GLUBED) GLUCOSE BEDSIDE [id number] 06:30:00 Test Item Value Reference Range Interpretation Comments GLUCOSE BEDSIDE TESTING (test code 138 mg/dL 70-110 H = GLUBED) BASIC METABOLIC [id number] 06:17:00 Test Item Value Reference Range Interpretation [...] CA) 8.2 MG/DL 8.5-10.1 L RENAL FUNCTION [id number] 06:17:00 Test Item Value Reference Range Interpretation Comments ALBUMIN (test code = ALB) 2.1 G/DL 3.4-5.0 L PHOSPHOROUS (test code = PHOS) 4.1 MG/DL 2.5-4.9 N CBC W/AUTO [id number] 06:10:00 Test Item Value Reference Range Interpretation [...] NO DIFF/SCN CRITERIA = MDIFF) UR SODIUM [id number] 05:12:00 Test Item Value Reference Range Interpretation [...] this result as normal/abnormal . UR CREATININE [id number] 05:12:00 Test Item Value Reference Range Interpretation Comments UR CREATININE RANDOM (test code = 76.6 MG/DL 30-125 N CREATU) UR SODIUM [id number] 05:11:00 Test Item Value Reference Range Interpretation Comments UR SODIUM RANDOM 37 MEQ/L The Referen ce Range and (test code = YADI) Method Per formance specificationsh ave not been established for this fluid. The test result should be correlated into the clinical context forinte rpretation. GLUCOSE BEDSIDE [id number] 20:59:00 Test Item Value Reference Range Interpretation Comments GLUCOSE BEDSIDE TESTING (test code 191 mg/dL 70-110 H = GLUBED) - DUP LE ART UNI [id number] 16:33:00 [facility] 1980 Sex: F Name: HARLEEN MANZANO [facility] : 1980 Age/S: 41 / F [address] [address] Unit #: [id number] Loc: [place] [address] Phys: Jonathan Hernandez MD Acct: [id number] Dis Date: Status: ADM IN PHONE #: [phone] Exam Date: 11/29/2021 1600 FAX #: Reason: check on blood circulation/rule out PAD EXAMS: CPT: [id number] [facility] [place] [address] Location code: H5 Arterial Sonogram Left Lower [...] MD; Jonathan Hernandez MD Technologist: Sus[facility] Date/Time: 11/29/2021 (163) [email or web address] PAGE 1 Signed Report Name: HARLEEN FONTANA [facility] : 1980 Age/S: 41 / F [address] [address] Unit #: [id number] Loc: [place] [address] Phys: Jonathan Hernandez MD Acct: [id number] Dis Date: Status: ADM IN PHONE #: [phone] Exam Date: 11/29/2021 1600 FAX #: Reason: check on blood circulation/rule out PAD EXAMS: CPT:[id number] [facility] [place] [address] (Continued) Orig Print D/T: S: 11/29/2021 (1636) Probe: PAGE 2 Si gned ReportGLUCOSE BEDSIDE [id number] 15:14:00 Test Item Value Reference Range Interpretation Comments GLUCOSE BEDSIDE TESTING (test code 164 mg/dL 70-110 H = GLUBED) GLUCOSE BEDSIDE [id number] 11:18:00 Test Item Value Reference Range Interpretation Comments GLUCOSE BEDSIDE TESTING (test code 148 mg/dL 70-110 H = GLUBED) GLUCOSE BEDSIDE [id number] 06:48:00 Test Item Value Reference Range Interpretation Comments GLUCOSE BEDSIDE TESTING (test code 127 mg/dL 70-110 H = GLUBED) BASIC METABOLIC [id number] 05:57:00 Test Item Value Reference Range Interpretation [...] CA) 7.8 MG/DL 8.5-10.1 L RENAL FUNCTION [id number] 05:57:00 Test Item Value Reference Range Interpretation Comments ALBUMIN (test code = ALB) 2.0 G/DL 3.4-5.0 L PHOSPHOROUS (test code = PHOS) 4.3 MG/DL 2.5-4.9 N [id number] 05:57:00 Test Item Value Reference Range Interpretation Comments MAGNESIUM (test code = MAG) 1.8 MG/DL 1.8-2.4 N CBC W/AUTO [id number] 05:43:00 Test Item Value Reference Range Interpretation [...] NO DIFF/SCN CRITERIA = MDIFF) GLUCOSE BEDSIDE [id number] 20:57:00 Test Item Value Reference Range Interpretation Comments GLUCOSE BEDSIDE TESTING (test code 211 mg/dL 70-110 H = GLUBED) GLUCOSE BEDSIDE [id number] 17:11:00 Test Item Value Reference Range Interpretation Comments GLUCOSE BEDSIDE TESTING (test code 179 mg/dL 70-110 H = GLUBED) - RETRO [id number] 17:06:00 [facility] 1980 Sex: F Name: HARLEEN MANZANO [facility] : 1980 Age/S: 41 / F [address] [address] Unit #: [id number] Loc: [place] [address] Phys: Gabriela Higginbotham MD Acct: [id number] Dis Date: Status: ADM IN PHONE #: [phone] Exam Date: 2021 1643 FAX #: Reason: JAYLEEN/CKD EXAMS: CPT: [id number] [facility] [address] Location code: H5 Renal Sonogram Indication: JAYLEEN/CKD. Comparison: None. Technical factors: Long and short axis york scale images were obtained with Doppler and color flow evaluation. Findings: Right kidney: The kidney measures 10.5 x 5.7 x [...] signed by: Pro Ugarte M.D. CC: Gabriela Rodriguez MD; Yusuf Castle MD Technologist: Susanne Emerson [facility] Date/Time: 2021 (1705) [email or web address] PAGE 1 Signed Report Name: HARLEEN MANZANO : 1980 Age/S: 41 / F [address] [address] Unit #: [id number] Loc: [place] [address] Phys: Gabriela Higginbotham MD Acct: [id number] Dis Date: Status: ADM IN PHONE #: [phone] Exam Date: 2021 1643 FAX #: Reason: JAYLEEN/CKD EXAMS: CPT: [id number] [facility] [address] (Continued) Orig Print D/T: S: 2021 (1708) Probe: PAGE 2 Signed Report GLUCOSE BEDSIDE [id number] 11:17:00 Test Item Value Reference Range Interpretation Comments GLUCOSE BEDSIDE TESTING (test code 170 mg/dL 70-110 H = GLUBED) GLUCOSE BEDSIDE [id number] 07:37:00 Test Item Value Reference Range Interpretation Comments GLUCOSE BEDSIDE TESTING (test code 229 mg/dL 70-110 H = GLUBED) BASIC METABOLIC [id number] 05:48:00 Test Item Value Reference Range Interpretation [...] code = CA) 8.0 MG/DL 8.5-10.1 L [id number] 05:48:00 Test Item Value Reference Range Interpretation Comments PHOSPHOROUS (test code = PHOS) 3.7 MG/DL 2.5-4.9 N [id number] 05:48:00 Test Item Value Reference Range Interpretation Comments MAGNESIUM (test code = MAG) 1.3 MG/DL 1.8-2.4 L GLUCOSE BEDSIDE [id number] 15:59:00 Test Item Value Reference Range Interpretation Comments GLUCOSE BEDSIDE TESTING (test code 262 mg/dL 70-110 H = GLUBED) GLUCOSE BEDSIDE [id number] 11:13:00 Test Item Value Reference Range Interpretation Comments GLUCOSE BEDSIDE TESTING (test code 205 mg/dL 70-110 H = GLUBED) GLUCOSE BEDSIDE [id number] 10:16:00 Test Item Value Reference Range Interpretation Comments GLUCOSE BEDSIDE TESTING (test code 182 mg/dL 70-110 H = GLUBED) BASIC METABOLIC [id number] 07:08:00 Test Item Value Reference Range Interpretation [...] CA) 8.0 MG/DL 8.5-10.1 L HCG SERUM [id number] 07:08:00 Test Item Value Reference Range Interpretation Comments HCG SERUM QUAL (test SERUM NEGATIVE SCREEN NEGATIVE code = HCGQL) VANCOMYCIN [id number] 06:49:00 Test Item Value Reference Range Interpretation Comments VANCOMYCIN TROUGH (test code = 27.5 mcG/ML 10-20 H VANCT) CBC W/AUTO [id number] 06:38:00 Test Item Value Reference Range Interpretation [...] NO DIFF/SCN CRITERIA = MDIFF) GLUCOSE BEDSIDE [id number] 20:22:00 Test Item Value Reference Range Interpretation Comments GLUCOSE BEDSIDE TESTING (test code 273 mg/dL 70-110 H = GLUBED) GLUCOSE BEDSIDE [id number] 16:55:00 Test Item Value Reference Range Interpretation Comments GLUCOSE BEDSIDE TESTING (test code 265 mg/dL 70-110 H = GLUBED) - MRI LOW EXT W/O CONT [id number] 16:18:00 [facility] 1980 Sex: F FAX: Yusuf Finch MD [phone] Camps: PM St: ADM FAX: Ryanne Alonso [phone] Name: HARLEEN MANZANO [facility] : 1980 Age/S: 40/F [address] [facility] [place] Unit #: [id number] Loc: [address] [place], [place] [address]Cmig: Jose Garland MD Acct: [id number] Dis Date: Status: ADM IN PHONE #: [phone] Exam Date: 11/26/2021 1420 FAX #: Reason: Left foot osteomyelitis 5the toe, rule out 4th EXAMS: CPT: [id number] [place] [address] Exam: MRI left foot without contrast Dictation location: B2 INDICATION: Left foot cellulitis 5th toe, rule out 4th toe osteomyelitis COMPARISON: Left foot x-ray on07/26/2021 TECHNIQUE: Axial T1 and T2 fat-sat, coronal T1 and PD fat-sat, and sagittal STIR and T1-we ighted sequences of the left foot were obtained without IV contrast. DISCUSSION: Osseous structures:There is cortical erosion or T1 marrow replacement involving the proximal, mid, and distal phalangesof the 5th digit, as well as the head, neck, distal diaphysis of the 5th metatarsal, consistent withosteomyelitis. There are cortical erosions and marrow replacement of the 4th metatarsal head, consistent with osteomyelitis, and questionably at the volar base of the proximal 4th phalanx. The 1st through 3rd rays are unremarkable. Septic arthritis at the 4th and 5th MTP joints is possible, although would be more likely at the 5th MTP joint. Soft tissues: A wound/ulcer is identified plantar to the 4th and 5th MTP joints. An abscess is seen [...] 1 Signed Report (CONTINUED) FAX: Yusuf Finch [facility] [phone] Camps: PM St: ADM FAX: Ryanne Alonso [phone] Name: HARLEEN MANZANO [facility] : 1980 Age/S: 40/F [address] [address] [place] Unit #: [id number] Loc: [address] [place] [address] Phys: Jose Garland MD Acct: [id number] Dis Date: Status: ADM IN PHONE #: [phone] Exam Date: 11/26/2021 1420 FAX #: Reason: Left foot osteomyelitis 5the toe, rule out 4th EXAMS: CPT: [id number] [place] W/[place] [address] (Continued) at 1618 Reported and signed by: Jimmy Arango M.D. CC: Yusuf Castle MD; Jose Garland MD Technologist: Sandra Moncada, RT(R)(MR) Transcribed Date/Time/By: 11/26/2021 (1618) :[email or web address] Orig Print D/T: S: 11/26/2021 (4278) PAGE 2 Signed ReportGLUCOSE BEDSIDE TESTING 2021-11-26 12:04:00 Test Item Value Reference Range Interpretation Comments GLUCOSE BEDSIDE TESTING (test code 246 mg/dL 70-110 H = GLUBED) GLUCOSE BEDSIDE [id number] 08:10:00 Test Item Value Reference Range Interpretation Comments GLUCOSE BEDSIDE TESTING (test code 213 mg/dL 70-110 H = GLUBED) GLUCOSE BEDSIDE [id number] 22:01:00 Test Item Value Reference Range Interpretation Comments GLUCOSE BEDSIDE TESTING (test code 238 mg/dL 70-110 H = GLUBED) - XR CHEST 1 [id number] 21:35:00 [facility] 1980 Sex: F Name: HARLEEN MANZANO [place] : 1980 Age/S: 40 / F [address] [address] [place] Unit #: [id number] Loc: [place] [address] Phys: Yusuf Castle MD Acct: [id number] Dis Date: Status: ADM IN PHONE #: [phone] Exam Date: 11/25/20211920 FAX #: Reason: fever EXAMS: CPT: [id number] XR CHEST 1 V 64905 Fluoro Time: DAP (Gy m2): Air Kerma (mGy): HISTORY: Fever Location: C3 COMPARISON:10/15/2021 FINDINGS: Heart size is upper normal. The lungs are clear of focal consolidation. No effusion, pneumothorax, or acute osseous abnormality. IMPRESSION: 1. No focal consolidation. No other acute abnormality. El ectronically Signed by Faizan Vazquez on 11/25/2021 at 2135 Reported and signed by: Timi Vazquez M.D. CC: Yusuf Castle MD PAGE 1 Signed Report Name: HARLEEN MANZANO [facility] : 1980 Age/S: 40 / F [address] [address] [place] Unit #: [id number] Loc: [place] [address] Phys: Yusuf Castle MD Acct: [id number] Dis Date: Status: ADM IN PHONE #: [phone] Exam Date: 11/25/20211920 FAX #: Reason: fever EXAMS: CPT: [id number] XR CHEST 1 V 73501 Fluoro Time: DAP (Gy m2): Air Kerma(mGy): (Continued) Technologist: Olga Acosta RT(R)(CT) Trnscb Date/Time: 11/25/2021 (2134) [email or web address] Orig Print D/T: S: 11/25/2021 (2138) PAGE 2 Signed ReportLACTIC [id number] 19:31:00 Test Item Value Reference Range Interpretation Comments LACTIC ACID (test code = LACT) 1.0 mmol/L 0.4-2.0 COVID 19 Asymptomatic IH [id number] 19:03:00 Test Item Value Reference Range Interpretation [...] nd symptoms consis tent with COVID-19. LACTIC [id number] 17:25:00 Test Item Value Reference Range Interpretation Comments LACTIC ACID (test code = LACT) 2.7 mmol/L 0.4-2.0 H BASIC METABOLIC [id number] 17:24:00 Test Item Value Reference Range Interpretation [...] 8.5-10.1 N Completed by Nursing: NOHEPATIC FUNCTION [id number] 17:24:00 Test Item Value Reference Range Interpretation [...] = ALKP) Completed by Nursing: NOTROP-I HIGH [id number] 17:24:00 Test Item Value Reference Range Interpretation [...] varyby method. Completed by Nursing: NOCBC W/AUTO [id number] 16:59:00 Test Item Value Reference Range Interpretation [...] CRITERIA = MDIFF) - XR FOOT 3+V [id number] 16:43:00 [facility] 1980 Sex: F Name: HARLEEN MANZANO [facility] : 1980 Age/S: 40 / F [address] [address] [place] Unit #: [id number] Loc: [place] [address] Phys: Michael Wu DO Acct: [id number] Dis Date: Status: PRE ER PHONE #: [phone] Exam Date: 11/25/2021 1629 FAX #: Reason: infection EXAMS: CPT: [id number] XR FOOT 3+[place] [address] Fluoro Time: DAP (Gy m2): Air Kerma [...] PAGE 1 Signed Report Name: HARLEEN MANZANO [facility] : 1980 Age/S: 40 / F [address] [address] [place] Unit #: [id number] Loc: [place] [address] Phys: iMchael Wu DO Acct: [id number] Dis Date: Status: PRE ER PHONE #: [phone] Exam Date: 11/25/2021 1629 FAX #: Reason: infection EXAMS: CPT: [id number] XR FOOT 3+[place] [address] Fluoro Time: DAP (Gy m2): Air Kerma (mGy): (Continued) Technologist: Nicholas Mas, RT(R)(CT) Trnscb Date/Time: 11/25/2021 (1642) [email or web address] Orig Print D/T: S: 11/25/2021 (8266) PAGE 2 Signed ReportPOC ARTERIAL BLOOD [id number] 11:02:00 Test Item Value Reference Range Interpretation Comments POC ARTERIAL BLOOD GAS PH (test < 6.999 7.35-7.45 LL code = POCPHA) POC ARTERIAL BLOOD GAS PCO2 32.3 mmHg 35.0-45 L (test code = [id number]) POC TCO2 ARTERIAL (test code = 7.8 POCTCO2) POC ARTERIAL BLOOD GAS PO2 (test 546.0 mmHg 80-100.0 HH code = XVYDO1E) POC HCO3 ARTERIAL (test code = 6.8 MMOL/L 22.0-26.0 LL RHZJMO3B) POC BASE EXCESS (test code = -25.6 MMOL/L -4.0-4.0 L POCBEA) POC O2 SATURATION (test code = 99.9 % 90-100 N POCO2S) FIO2 (test code = FIO2A) 100 % PaO2/FiO2 (test code = [id number]) 546.00 mm/Hg ABG DELIVERY (test code = [...] (test code = Positive ALLENS) BASIC METABOLIC [id number] 11:02:00 Test Item Value Reference Range Interpretation [...] POCGLU) > 700 MG/DL 70-110 H HEMOGLOBIN [id number] 11:02:00 Test Item Value Reference Range Interpretation Comments HEMOGLOBIN ABG (test code = 13.0 G/DL 11.0-15.0 N HGB/ABG) [id number] 11:02:00 Test Item Value Reference Range Interpretation Comments HEMATOCRIT (test code = HCT/ABG) 38 % 33.0-45.0 N POC LACTIC [id number] 11:02:00 Test Item Value Reference Range Interpretation Comments POC LACTIC ACID (test code = 1.5 mmol/l 0.9-1.7 N POCLAC) GLUCOSE [id number] 15:34:00 Test Item Value Reference Range Interpretation Comments GLUCOSE BEDSIDE (test 302 MG/DL 70-110 H Perfor med by certified code = GLUBED) 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 [facility] GLUCOSE [id number] 11:48:00 Test Item Value Reference Range Interpretation Comments GLUCOSE BEDSIDE (test 191 MG/DL 70-110 H Perfor med by certified code = GLUBED) 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 [facility] GLUCOSE [id number] 09:07:00 Test Item Value Reference Range Interpretation Comments GLUCOSE BEDSIDE (test 211 MG/DL 70-110 H Perfor med by certified code = GLUBED) 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 [facility] RENAL FUNCTION [id number] 07:20:00 Test Item Value Reference Range Interpretation [...] 4.4 MG/DL 2.5-4.9 N = PHOS) GLUCOSE [id number] 22:27:00 Test Item Value Reference Range Interpretation Comments GLUCOSE BEDSIDE (test 153 MG/DL 70-110 H Perfor med by certified code = GLUBED) 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 [facility] GLUCOSE [id number] 17:09:00 Test Item Value Reference Range Interpretation Comments GLUCOSE BEDSIDE (test 172 MG/DL 70-110 H Perfor med by certified code = GLUBED) 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 [facility] GLUCOSE [id number] 11:34:00 Test Item Value Reference Range Interpretation Comments GLUCOSE BEDSIDE (test 173 MG/DL 70-110 H Perfor med by certified code = GLUBED) 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 [facility] CBC W/AUTO [id number] 08:04:00 Test Item Value Reference Range Interpretation [...] REQUIRED (test code NO = MDIFF) GLUCOSE [id number] 07:48:00 Test Item Value Reference Range Interpretation Comments GLUCOSE BEDSIDE (test 240 MG/DL 70-110 H Perfor med by certified code = GLUBED) 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 [facility] RENAL FUNCTION [id number] 07:43:00 Test Item Value Reference Range Interpretation [...] = 4.3 MG/DL 2.5-4.9 N PHOS) GLUCOSE [id number] 23:43:00 Test Item Value Reference Range Interpretation Comments GLUCOSE BEDSIDE (test 286 MG/DL 70-110 H Perfor med by certified code = GLUBED) 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 [facility] GLUCOSE [id number] 17:13:00 Test Item Value Reference Range Interpretation Comments GLUCOSE BEDSIDE (test 308 MG/DL 70-110 H Perfor med by certified code = GLUBED) 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 [facility] GLUCOSE [id number] 12:07:00 Test Item Value Reference Range Interpretation Comments GLUCOSE BEDSIDE (test 332 MG/DL 70-110 H Perfor med by certified code = GLUBED) 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 [facility] CBC W/AUTO [id number] 08:50:00 Test Item Value Reference Range Interpretation [...] (test code NO = MDIFF) RENAL FUNCTION [id number] 08:18:00 Test Item Value Reference Range Interpretation [...] = 5.0 MG/DL 2.5-4.9 H PHOS) GLUCOSE [id number] 08:05:00 Test Item Value Reference Range Interpretation Comments GLUCOSE BEDSIDE (test 325 MG/DL 70-110 H Perfor med by certified code = GLUBED) 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 [facility] GLUCOSE [id number] 06:47:00 Test Item Value Reference Range Interpretation Comments GLUCOSE BEDSIDE (test 301 MG/DL 70-110 H Perfor med by certified code = GLUBED) 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 [facility] GLUCOSE [id number] 21:37:00 Test Item Value Reference Range Interpretation Comments GLUCOSE BEDSIDE (test 237 MG/DL 70-110 H Perfor med by certified code = GLUBED) 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 [facility] GLUCOSE [id number] 17:58:00 Test Item Value Reference Range Interpretation Comments GLUCOSE BEDSIDE (test 207 MG/DL 70-110 H Perfor med by certified code = GLUBED) 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 [facility] GLUCOSE [id number] 12:39:00 Test Item Value Reference Range Interpretation Comments GLUCOSE BEDSIDE (test 230 MG/DL 70-110 H Perfor med by certified code = GLUBED) 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 [facility] GLUCOSE [id number] 11:34:00 Test Item Value Reference Range Interpretation Comments GLUCOSE BEDSIDE (test 209 MG/DL 70-110 H [facility] med by certified code = GLUBED) 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 [facility] BASIC METABOLIC [id number] 08:14:00 Test Item Value Reference Range Interpretation [...] 8.9 mg/dL 8.0-10.5 N CA) CBC W/AUTO [id number] 07:50:00 Test Item Value Reference Range Interpretation [...] REQUIRED (test code NO = MDIFF) GLUCOSE [id number] 07:35:00 Test Item Value Reference Range Interpretation Comments GLUCOSE BEDSIDE (test 140 MG/DL 70-110 H Perfor med by certified code = GLUBED) 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 [facility] GLUCOSE [id number] 20:28:00 Test Item Value Reference Range Interpretation Comments GLUCOSE BEDSIDE (test 118 MG/DL 70-110 H Perfor med by certified code = GLUBED) 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 [facility] GLUCOSE [id number] 17:06:00 Test Item Value Reference Range Interpretation Comments GLUCOSE BEDSIDE (test 105 MG/DL 70-110 N Perfor med by certified code = GLUBED) 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 [facility] GLUCOSE [id number] 12:03:00 Test Item Value Reference Range Interpretation Comments GLUCOSE BEDSIDE (test 96 MG/DL 70-110 N Perfor med by certified code = GLUBED) 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 [facility] CBC W/AUTO [id number] 10:25:00 Test Item Value Reference Range Interpretation [...] LY#) MANUAL DIFF REQUIRED NO SLIDE R EVNABILWED, (test code = MDIFF) CONSISTE NT WITH [...] 3/uL 0.0-0.1 N code = NRBC#) GLUCOSE [id number] 08:15:00 Test Item Value Reference Range Interpretation Comments GLUCOSE BEDSIDE (test 87 MG/DL 70-110 N Perfor med by certified code = GLUBED) 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 [facility] BASIC METABOLIC [id number] 08:13:00 Test Item Value Reference Range Interpretation [...] = 8.7 mg/dL 8.0-10.5 N CA) GLUCOSE [id number] 06:26:00 Test Item Value Reference Range Interpretation Comments GLUCOSE BEDSIDE (test 90 MG/DL 70-110 N Perfor med by certified code = GLUBED) 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 [facility] GLUCOSE [id number] 04:43:00 Test Item Value Reference Range Interpretation Comments GLUCOSE BEDSIDE (test 67 MG/DL 70-110 L Perfor med by certified code = GLUBED) 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 [facility] GLUCOSE [id number] 20:30:00 Test Item Value Reference Range Interpretation Comments GLUCOSE BEDSIDE (test 62 MG/DL 70-110 L Perfor med by certified code = GLUBED) 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 [facility] GLUCOSE [id number] 16:54:00 Test Item Value Reference Range Interpretation Comments GLUCOSE BEDSIDE (test 73 MG/DL 70-110 N Perfor med by certified code = GLUBED) 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 [facility] GLUCOSE [id number] 11:45:00 Test Item Value Reference Range Interpretation Comments GLUCOSE BEDSIDE (test 118 MG/DL 70-110 H Perfor med by certified code = GLUBED) 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 [facility] GLUCOSE [id number] 08:00:00 Test Item Value Reference Range Interpretation Comments GLUCOSE BEDSIDE (test 52 MG/DL 70-110 L Perfor med by certified code = GLUBED) 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 [facility] BASIC METABOLIC [id number] 04:21:00 Test Item Value Reference Range Interpretation [...] 9.1 mg/dL 8.0-10.5 N CA) CBC W/O [id number] 04:04:00 Test Item Value Reference Range Interpretation [...] 11.3 fL 7.0-9.0 H = MPV) GLUCOSE [id number] 00:49:00 Test Item Value Reference Range Interpretation Comments GLUCOSE BEDSIDE (test 105 MG/DL 70-110 N Perfor med by certified code = GLUBED) 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 [facility] GLUCOSE [id number] 21:40:00 Test Item Value Reference Range Interpretation Comments GLUCOSE BEDSIDE (test 107 MG/DL 70-110 N Perfor med by certified code = GLUBED) 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 [facility] GLUCOSE [id number] 16:44:00 Test Item Value Reference Range Interpretation Comments GLUCOSE BEDSIDE (test 142 MG/DL 70-110 H Perfor med by certified code = GLUBED) 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 [facility] GLUCOSE [id number] 13:38:00 Test Item Value Reference Range Interpretation Comments GLUCOSE BEDSIDE (test 76 MG/DL 70-110 N Perfor med by certified code = GLUBED) 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 [facility] GLUCOSE [id number] 10:04:00 Test Item Value Reference Range Interpretation Comments GLUCOSE BEDSIDE (test 92 MG/DL 70-110 N Perfor med by certified code = GLUBED) 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 [facility] COMPREHENSIVE METABOLIC [id number] 08:10:00 Test Item Value Reference Range Interpretation [...] 20-125 H TOTAL (test code = ALKP) [id number] 08:10:00 Test Item Value Reference Range Interpretation Comments PHOSPHOROUS (test code = PHOS) 4.5 MG/DL 2.5-4.9 N [id number] 08:10:00 Test Item Value Reference Range Interpretation Comments MAGNESIUM (test code = MAG) 2.32 mg/dL 1.80-2.40 N CALCIUM [id number] 08:10:00 Test Item Value Reference Range Interpretation Comments CALCIUM IONIZED (test code = TOMER) 1.21 MMOL/L 1.12-1.32 N CBC W/AUTO [id number] 07:53:00 Test Item Value Reference Range Interpretation [...] REQUIRED (test code NO = MDIFF) GLUCOSE [id number] 01:53:00 Test Item Value Reference Range Interpretation Comments GLUCOSE BEDSIDE (test 164 MG/DL 70-110 H Perfor med by certified code = GLUBED) 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 [facility] GLUCOSE [id number] 16:56:00 Test Item Value Reference Range Interpretation Comments GLUCOSE BEDSIDE (test 139 MG/DL 70-110 H Perfor med by certified code = GLUBED) 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 [facility] GLUCOSE [id number] 14:15:00 Test Item Value Reference Range Interpretation Comments GLUCOSE BEDSIDE (test 165 MG/DL 70-110 H Perfor med by certified code = GLUBED) 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 [facility] GLUCOSE [id number] 11:28:00 Test Item Value Reference Range Interpretation Comments GLUCOSE BEDSIDE (test 164 MG/DL 70-110 H Perfor med by certified code = GLUBED) 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 [facility] GLUCOSE [id number] 08:42:00 Test Item Value Reference Range Interpretation Comments GLUCOSE BEDSIDE (test 148 MG/DL 70-110 H Perfor med by certified code = GLUBED) 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 [facility] COMPREHENSIVE METABOLIC [id number] 07:34:00 Test Item Value Reference Range Interpretation [...] 20-125 H TOTAL (test code = ALKP) [id number] 07:34:00 Test Item Value Reference Range Interpretation Comments PHOSPHOROUS (test code = PHOS) 4.8 MG/DL 2.5-4.9 N [id number] 07:34:00 Test Item Value Reference Range Interpretation Comments MAGNESIUM (test code = MAG) 2.39 mg/dL 1.80-2.40 N CALCIUM [id number] 07:34:00 Test Item Value Reference Range Interpretation Comments CALCIUM IONIZED (test code = TOMER) 1.20 MMOL/L 1.12-1.32 N CBC W/AUTO [id number] 07:14:00 Test Item Value Reference Range Interpretation [...] 0.00 x10 3/uL 0.0-0.1 N NRBC#) GLUCOSE [id number] 06:18:00 Test Item Value Reference Range Interpretation Comments GLUCOSE BEDSIDE (test 176 MG/DL 70-110 H Perfor med by certified code = GLUBED) 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 [facility] GLUCOSE [id number] 01:38:00 Test Item Value Reference Range Interpretation Comments GLUCOSE BEDSIDE (test 249 MG/DL 70-110 H Perfor med by certified code = GLUBED) 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 [facility] - XR CHEST 1 [id number] 00:00:[address] [facility] DEMETRIOName: HARLEEN MANZANO : 1980 Sex: F FAX: Laura Trinh MD [phone] [place]: St: ADM FAX: Y J Carlos Gomez MD [phone] Name: HARLEEN MANZANO [facility] : 1980 Age/S: 40/F [address] [place] [address] Unit #: [id number] Loc: [address] [address] Phys: J Carlos Gomez MD Acct: [id number] Dis Date: Status: ADM IN PHONE #: [phone] Exam Date: 10/15/2021607 FAX #: [phone] Reason: INTUBATED/COVID EXAMS: CPT CODE: [id number] XR CHEST 1 V 02003 PROCEDURE INFORMATION: Exam: XR Chest Exam date and time: 10/15/2021 5:41 AM Age: 40 years old Clinical indication: Other: Intubated/covid TECHNIQUE: Imaging protocol: Radiologic exam of the chest. Views: 1 view. COMPARISON: CR XR CHEST 1V 10/14/2021 5:53 AM FINDINGS: Tubes, catheters and devices: Right IJ catheter terminating the cavoatrial junction. Interval removal of the endotracheal and eso phagogastric tubes. Lungs: Low lung volumes. Stable bilateral perihilar fullness. No focal airspaceconsolidations. Pleural spaces: Unremarkable. No pleural effusion. No pneumothorax. Heart/Mediastinum: Unremarkable. Bones/joints: Unremarkable. IMPRESSION: Mild vascular congestion. No focal airspace consolidations. at 0740 Reported and signed by: Petey Brooks M.D. CC: Laura Trinh MD; J Carlos Gomez MD Technologist: Pepe, RT(R); Martin Moseley RT(R) Trnscrd Date/Time/By: 10/15/2021 (0740) : By: [email or web address] Orig Print D/T: S: 10/15/2021 (0757) PAGE 1 Signed ReportGLUCOSE [id number] 21:44:00 Test Item Value Reference Range Interpretation Comments GLUCOSE BEDSIDE (test 224 MG/DL 70-110 H Perfor med by certified code = GLUBED) 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 [facility] GLUCOSE [id number] 20:15:00 Test Item Value Reference Range Interpretation Comments GLUCOSE BEDSIDE (test 282 MG/DL 70-110 H Perfor med by certified code = GLUBED) 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 [facility] GLUCOSE [id number] 16:30:00 Test Item Value Reference Range Interpretation Comments GLUCOSE BEDSIDE (test 286 MG/DL 70-110 H Perfor med by certified code = GLUBED) 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 [facility] GLUCOSE [id number] 10:22:00 Test Item Value Reference Range Interpretation Comments GLUCOSE BEDSIDE (test 311 MG/DL 70-110 H Perfor med by certified code = GLUBED) 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 [facility] COMPREHENSIVE METABOLIC [id number] 05:53:00 Test Item Value Reference Range Interpretation [...] 20-125 H TOTAL (test code = ALKP) [id number] 05:53:00 Test Item Value Reference Range Interpretation Comments PHOSPHOROUS (test code = PHOS) 5.2 MG/DL 2.5-4.9 H [id number] 05:53:00 Test Item Value Reference Range Interpretation Comments MAGNESIUM (test code = MAG) 2.51 mg/dL 1.80-2.40 H CALCIUM [id number] 05:53:00 Test Item Value Reference Range Interpretation Comments CALCIUM IONIZED (test code = TOMER) 1.18 MMOL/L 1.12-1.32 N CBC W/AUTO [id number] 05:34:00 Test Item Value Reference Range Interpretation [...] code NO = MDIFF) POC ARTERIAL BLOOD [id number] 03:13:00 Test Item Value Reference Range Interpretation Comments POC ARTERIAL BLOOD GAS PH (test 7.376 7.35-7.45 N code = POCPHA) POC ARTERIAL BLOOD GAS PCO2 35.9 mmHg 35.0-45 N (test code = [id number]) POC TCO2 ARTERIAL (test code = 22.2 POCTCO2) POC ARTERIAL BLOOD GAS PO2 (test 93.8 mmHg 80-100.0 N code = PECAK2V) POC HCO3 ARTERIAL (test code = 21.1 MMOL/L 22.0-26.0 L BGMHHP3N) POC BASE EXCESS (test code = -4.1 MMOL/L -4.0-4.0 L POCBEA) POC O2 SATURATION (test code = 97.2 % 90-100 N POCO2S) FIO2 (test code = FIO2A) 40 % PaO2/FiO2 (test code = [id number]) 234.50 mm/Hg ABG DELIVERY (test code = CARLOS) Adult Vent ABG VENT MODE (test code = AC MODEA) ABG VENT RESP RATE (test code = 18 /MIN RRA) ABG TIDAL VOLUME (test code = 500 ml TVA) ABG PEEP (test code = PEEPA) 5 cmH2O ABG SITE (test code = SITEA) R Radial SINTIA'S TEST (test code = Positive ALLENS) GLUCOSE [id number] 00:36:00 Test Item Value Reference Range Interpretation Comments GLUCOSE BEDSIDE (test 303 MG/DL 70-110 H Perfor med by certified code = GLUBED) 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 [facility] - XR CHEST 1 [id number] 00:00:00 [facility] : 1980 Sex: F FAX: Laura Trinh MD [phone] [place]: St: [facility] FAX: J Carlos Franz MD [phone] Name: HARLEEN MANZANO [facility] : 1980 Age/S: 40/[address] Unit #: [id number] Loc: G.M328 [place] [address] Phys: J Carlos Gomez MD Acct: [id number] Dis Date: Status: ADM IN PHONE #: [phone] Exam Date: 10/14/2021641 FAX #: [phone] Reason: INTUBATED/COVID EXAMS: CPT CODE: [id number] XR CHEST 1 V 97779 PROCEDURE INFORMATION: Exam: XR Chest Exam date [...] of pulmonary edema, atelectasis, or pneumonia. at 0755 Reported and signed by: Abdi Bradford M.D. CC: Laura rTinh MD; J Carlos Gomez MD Technologist: Spring Merchant RT(R) Trnscrd Date/Time/By: 10/14/2021 (075) : By: [email or web address] Orig Print D/T: S: 10/14/2021 (075) PAGE 1 Signed ReportGLUCOSE [id number] 20:12:00 Test Item Value Reference Range Interpretation Comments GLUCOSE BEDSIDE (test 240 MG/DL 70-110 H Perfor med by certified code = GLUBED) 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 [facility] GLUCOSE [id number] 17:06:00 Test Item Value Reference Range Interpretation Comments GLUCOSE BEDSIDE (test 226 MG/DL 70-110 H Perfor med by certified code = GLUBED) 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 [facility] GLUCOSE [id number] 14:00:00 Test Item Value Reference Range Interpretation Comments GLUCOSE BEDSIDE (test 215 MG/DL 70-110 H Perfor med by certified code = GLUBED) 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 [facility] GLUCOSE [id number] 08:30:00 Test Item Value Reference Range Interpretation Comments GLUCOSE BEDSIDE (test 188 MG/DL 70-110 H Perfor med by certified code = GLUBED) 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 [facility] COMPREHENSIVE METABOLIC [id number] 06:13:00 Test Item Value Reference Range Interpretation [...] 20-125 H TOTAL (test code = ALKP) [id number] 06:13:00 Test Item Value Reference Range Interpretation Comments PHOSPHOROUS (test code = PHOS) 4.0 MG/DL 2.5-4.9 [id number] 06:13:00 Test Item Value Reference Range Interpretation Comments MAGNESIUM (test code = MAG) 2.46 mg/dL 1.80-2.40 H VITAMIN [id number] 06:13:00 Test Item Value Reference Range Interpretation Comments VITAMIN B12 (test code = VITB12) 1579 pg/mL 193-986 H CALCIUM [id number] 06:13:00 Test Item Value Reference Range Interpretation Comments CALCIUM IONIZED (test code = TOMER) 1.16 MMOL/L 1.12-1.32 N CORTISOL [id number] 06:13:00 Test Item Value Reference Range Interpretation Comments CORTISOL AM (test 19.35 ug/dL Reference Interval: code = CORTAM) 2mo-13yrs: 2. 4-22.9 ug/dL 14-15yrs( Male): 2.5-22.9 ug/dL 14-15yrs(Female ): 2.5-28.6 ug/dL 16-18yrs(M/F): 2.4-28.6 ug/dLAdults(M/F ) AM: 4.3-22.4 ug/dLAdults(M/F ) PM: 3.1-16.7 ug/dL C REACTIVE [id number] 05:58:00 Test Item Value Reference Range Interpretation Comments C REACTIVE PROTEIN (test code = 116.0 mg/L <10.0 H CRP) CBC W/AUTO [id number] 05:51:00 Test Item Value Reference Range Interpretation [...] DIFF REQUIRED (test code NO = MDIFF) [id number] 05:51:00 Test Item Value Reference Range Interpretation Comments AMMONIA (test code = AMM) < 10 umol/L 11-35 L UA RFLX MICR CULT IF [id number] 04:43:00 Test Item Value Reference Range Interpretation [...] MUCU) TRACE /LPF NONE SEEN UR HCG [id number] 04:33:00 Test Item Value Reference Range Interpretation Comments UR HCG QUAL (test code = HCGQLU) NEGATIVE NEGATIVE POC ARTERIAL BLOOD [id number] 03:24:00 Test Item Value Reference Range Interpretation Comments POC ARTERIAL BLOOD GAS PH (test 7.404 7.35-7.45 N code = POCPHA) POC ARTERIAL BLOOD GAS PCO2 34.8 mmHg 35.0-45 L (test code = ELWVDB0H) POC TCO2 ARTERIAL (test code = 22.9 POCTCO2) POC ARTERIAL BLOOD GAS PO2 (test 157.5 mmHg 80-100.0 H code = VPFDU7E) POC HCO3 ARTERIAL (test code = 21.8 MMOL/L 22.0-26.0 L MSVSSV1P) POC BASE EXCESS (test code = -2.9 MMOL/L -4.0-4.0 N POCBEA) POC O2 SATURATION (test code = 99.4 % 90-100 N POCO2S) FIO2 (test code = FIO2A) 40 % PaO2/FiO2 (test code = [id number]) 393.75 mm/Hg ABG DELIVERY (test code = CARLOS) Adult Vent ABG VENT MODE (test code = AC MODEA) ABG VENT RESP RATE (test code = 18 /MIN RRA) ABG TIDAL VOLUME (test code = 500 ml TVA) ABG PEEP (test code = PEEPA) 5 cmH2O ABG SITE (test code = SITEA) R Radial SINTIA'S TEST (test code = Positive ALLENS) GLUCOSE [id number] 01:22:00 Test Item Value Reference Range Interpretation Comments GLUCOSE BEDSIDE (test 113 MG/DL 70-110 H Perfor med by certified code = GLUBED) 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 [facility] - XR CHEST 1 [id number] 00:00:00 [facility] : 1980 Sex: F FAX: Laura Trinh MD [phone] [place]: St: [facility] FAX: J Carlos Franz MD [phone] Name: HARLEEN MANZANO [facility] : 1980 Age/S: 40/F [address] [place] [address] Unit #: [id number] Loc: G.M328 [place] [address] Phys: J Carlos Gomez MD Acct: [id number] Dis Date: Status: ADM IN PHONE #: [phone] Exam Date: 10/13/2021615 FAX #: [phone] Reason: INTUBATED/COVID EXAMS: CPT CODE: [id number] XR CHEST 1 V 22414 PROCEDURE INFORMATION: Exam: XR Chest Exam date [...] opacities and interstitial infiltrates bilaterally. Pleural spaces: No pleural effusion. No pneumothorax. Heart/Mediastinum: Heart size is within normal limits. Vasculature is unremarkable. Bones/joints: No acute abnormality. IMPRESSION: Stable chest. at 0658 Reported and signed by: Jimmy Figueroa M.D. CC: Laura Trinh MD; J Carlos Gomez MD Technologist: RT Destiny(R) Trnscrd Date/Time/By: 10/13/2021 (58) : By: [email or web address] [facility] Print D/T: S: 10/13/2021 (0659) PAGE 1 Signed Report- XR FOOT 2 VIEWS [id number] 00:00:00[facility] HAR[facility]ANO : 1980 Sex: F FAX: Deonte Huff MD [place]: St: [facility] FAX: Laura Trinh MD [phone] Name: HARLEEN MANZANO [facility] : 1980Age/S: [address] [place] [address] Unit #: [id number] Loc: G.M328 [place] [address] Phys: Deonte Higginbotham MD Acct: [id number] Dis Date: Status: ADM IN PHONE #: [phone] Exam Date: 10/13/2021 1328 FAX #: [phone] Reason: R/O OM EXAMS: CPT CODE: [id number] XR FOOT 2 [place] [address] PROCEDURE INFORMATION: Exam: XR Right Foot Exam [...] foot. Views: 1 or 2 views. AP andLateral COMPARISON: No relevant prior studies available. FINDINGS: [...] Signed Report (CONTINUED) FAX: Deonte Huff MD [place]: St: ADM FAX: Laura Trinh MD Name: HARLEEN MANZANO [facility] : 1980 Age/S: 40/F [address] [place] [address] Unit #: [id number] Loc: G.M328 [place] [address] Phys: Deonte Higginbotham MD Acct: [id number] Dis Date: Status: ADM IN PHONE #: [phone] Exam Date: 10/13/2021 1328 FAX #: [phone] Reason: R/O OM EXAMS: CPT CODE: [id number] XR FOOT [address] [place] [id number] <Continued> MRI may be obtained for complete assessment. IMPRESSION: XR Right Foot 1. Soft tissue swelling. 2. No radiographic evidence for osteomyelitis. XR Left Foot 1. Soft tissue swelling. 2. No radiographic evidence for osteomyelitis. Elec tronically Signed by Faizan Mares on 10/13/2021 at 1327 Reported and signed by: Mason Mares M.D. CC: Deonte Higginbotham MD; Laura Trinh MD Technologist: RHETT GhotraR) Trnscrd Date/Time/By: 10/13/2021 (7457) : By: [email or web address] Orig Print D/T: S: 10/13/2021 (9631) PAGE 2 Signed ReportGLUCOSE [id number] 21:23:00 Test Item Value Reference Range Interpretation Comments GLUCOSE BEDSIDE (test 112 MG/DL 70-110 H Perfor med by certified code = GLUBED) 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 [facility] GLUCOSE [id number] 17:02:00 Test Item Value Reference Range Interpretation Comments GLUCOSE BEDSIDE (test 92 MG/DL 70-110 N Perfor med by certified code = GLUBED) 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 [facility] [id number] 13:47:00 Test Item Value Reference Range Interpretation Comments LLRDT33Cyramzom POSITIVE Negative A Note: this e ntry is for (test code = TRACKING purpos es only and KORXR23Mmaqoxpi) the testwas done at an outside [facility]. See specimen commen ts fororiginal lab oratory and specimen date. The [facility] 10/[facility]21Patient's account number from transferring facility: [id number] patient's current lab results are: PositiveGLUCOSE [id number] 12:51:00 Test Item Value Reference Range Interpretation Comments GLUCOSE BEDSIDE (test 79 MG/DL 70-110 N Perfor med by certified code = GLUBED) 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 [facility] HGB [id number] 12:44:00 Test Item Value Reference Range Interpretation Comments HEMOGLOBIN (test code = HGB) 7.9 g/dL 11.0-15.0 L HEMATOCRIT (test code = HCT) 23.2 % 33.0-45.0 L GLUCOSE [id number] 08:43:00 Test Item Value Reference Range Interpretation Comments GLUCOSE BEDSIDE (test 88 MG/DL 70-110 N Perfor med by certified code = GLUBED) 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 [facility] UR SODIUM [id number] 07:23:00 Test Item Value Reference Range Interpretation Comments UR SODIUM RANDOM 39 MEQ/L The Referen ce Range and (test code = YADI) Method Per formance specificationsh ave not been established for this fluid. The test result should be correlated into the clinical context forinte rpretation. UR CREATININE [id number] 07:23:00 Test Item Value Reference Range Interpretation Comments UR CREATININE 113.5 mg/dL The Reference Range and RANDOM (test code Method Per formance = CREATU) specificationsh ave not been establishe d for this fluid. The test resultshould be correlated into the clinical contex t forinterpretati on. POC ARTERIAL BLOOD [id number] 06:28:00 Test Item Value Reference Range Interpretation Comments POC ARTERIAL BLOOD GAS PH (test 7.415 7.35-7.45 N code = POCPHA) POC ARTERIAL BLOOD GAS PCO2 37.0 mmHg 35.0-45 N (test code = EOCWOW9B) POC TCO2 ARTERIAL (test code = 24.8 POCTCO2) POC ARTERIAL BLOOD GAS PO2 (test 75.3 mmHg 80-100.0 L code = ZZHOD0M) POC HCO3 ARTERIAL (test code = 23.7 MMOL/L 22.0-26.0 N QQBVSY0C) POC BASE EXCESS (test code = -0.9 MMOL/L -4.0-4.0 N POCBEA) POC O2 SATURATION (test code = 95.2 % 90-100 N POCO2S) FIO2 (test code = FIO2A) 30 % PaO2/FiO2 (test code = FOI2GEY0) 251.00 mm/Hg ABG DELIVERY (test code = CARLOS) Adult Vent ABG VENT MODE (test code = AC MODEA) ABG VENT RESP RATE (test code = 18 /MIN RRA) ABG TIDAL VOLUME (test code = 500 ml TVA) ABG PEEP (test code = PEEPA) 5 cmH2O ABG SITE (test code = SITEA) R Radial SINTIA'S TEST (test code = Positive ALLENS) COMPREHENSIVE METABOLIC [id number] 05:25:00 Test Item Value Reference Range Interpretation [...] 20-125 N TOTAL (test code = ALKP) [id number] 05:25:00 Test Item Value Reference Range Interpretation Comments PHOSPHOROUS (test code = PHOS) 2.5 MG/DL 2.5-4.9 [id number] 05:25:00 Test Item Value Reference Range Interpretation Comments MAGNESIUM (test code = MAG) 2.53 mg/dL 1.80-2.40 H CALCIUM [id number] 05:25:00 Test Item Value Reference Range Interpretation Comments CALCIUM IONIZED (test code = TOMER) 1.17 MMOL/L 1.12-1.32 N CBC W/AUTO [id number] 05:12:00 Test Item Value Reference Range Interpretation [...] REQUIRED (test code NO = MDIFF) GLUCOSE [id number] 04:48:00 Test Item Value Reference Range Interpretation Comments GLUCOSE BEDSIDE (test 90 MG/DL 70-110 N Perfor med by certified code = GLUBED) 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 [facility] GLUCOSE [id number] 00:57:00 Test Item Value Reference Range Interpretation Comments GLUCOSE BEDSIDE (test 100 MG/DL 70-110 N Perfor med by certified code = GLUBED) 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 [facility] GLUCOSE [id number] 00:57:00 Test Item Value Reference Range Interpretation Comments GLUCOSE BEDSIDE (test 98 MG/DL 70-110 N Perfor med by certified code = GLUBED) 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 [facility] GLUCOSE [id number] 00:57:00 Test Item Value Reference Range Interpretation Comments GLUCOSE BEDSIDE (test 115 MG/DL 70-110 H Perfor med by certified code = GLUBED) 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 [facility] GLUCOSE [id number] 00:55:00 Test Item Value Reference Range Interpretation Comments GLUCOSE BEDSIDE (test 99 MG/DL 70-110 N Perfor med by certified code = GLUBED) 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: HARLEEN MANZANO : 1980 Sex: F FAX: Laura Trinh MD [phone] [place]: St: [facility] FAX: J Carlos Franz MD [phone] Name: HARLEEN MANZANO [facility] [place] : 1980 Age/S: 40/F [address] [place] [address] Unit #: [id number] Loc: Harold[address] [place] [address] Phys: J Carlos Gomez MD Acct: [id number] Dis Date: Status: ADM IN PHONE #: [phone] Exam Date: 10/12/2021622 FAX #: [phone] Reason: INTUBATED/COVID EXAMS: CPT CODE: [id number] XR CHEST 1 V 69122 PROCEDURE INFORMATION: Exam: XR Chest Exam date and time: 10/12/2021 5:50 AM Age: 40 years old Clinical indication: Device placement; Ett placement (vent status); Additional info: Intubated/covid TECHNIQUE: Imaging protocol: Radiologic exam of the chest. Views: 1 view. COMPARISON: CR XR CHEST 1V 10/11/2021 5:43 AM FINDINGS: Limitations: Portable technique and patient body habitus. Skin fold overlies the left hemithorax creating artifactual lucencies. Tubes, catheters and devices: Endotracheal tube approximately 3.4 cm above the watson. Enteric tube enters the stomach, redirected on itself withtip beyond the field of view. Right central venous catheter tip at the level of cavoatrial junction.EKG leads overlie the chest. Lungs: Lung volumes are low similar to that on prior exam. There are ind istinct perihilar and infrahilar opacities. Pleural spaces: There is no pneumothorax or gross pleural effusion. Heart/Mediastinum: The cardiomediastinal silhouette is stable. Artifactual lucency paralleling the left mediastinal contours related to skin fold. Bones/joints: Unremarkable. IMPRESSION: Ess entially stable exam. Mid and lower lung zone pulmonary opacities. Edema and pneumonia in the differential. at 0710 Reported and signed by: Mason Mares M.D. CC: Laura Trinh MD; J Carlos Gomez MD Technologist: RT Ronn(R) [facility] Date/Time/By: 10/12/2021 (709) : By: [email or web address].KWL Orig Print D/T: S: 10/12/2021 (709) PAGE 1 Signed ReportGLUCOSE [id number] 16:52:00 Test Item Value Reference Range Interpretation Comments GLUCOSE BEDSIDE (test 109 MG/DL 70-110 N Perfor med by certified code = GLUBED) 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 [facility] GLUCOSE [id number] 15:04:00 Test Item Value Reference Range Interpretation Comments GLUCOSE BEDSIDE (test 109 MG/DL 70-110 N Perfor med by certified code = GLUBED) 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 [facility] GLUCOSE [id number] 14:10:00 Test Item Value Reference Range Interpretation Comments GLUCOSE BEDSIDE (test 115 MG/DL 70-110 H Perfor med by certified code = GLUBED) 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 [facility] GLUCOSE [id number] 13:25:00 Test Item Value Reference Range Interpretation Comments GLUCOSE BEDSIDE (test 113 MG/DL 70-110 H Perfor med by certified code = GLUBED) 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 [facility] GLUCOSE [id number] 12:21:00 Test Item Value Reference Range Interpretation Comments GLUCOSE BEDSIDE (test 132 MG/DL 70-110 H Perfor med by certified code = GLUBED) 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 [facility] GLUCOSE [id number] 10:59:00 Test Item Value Reference Range Interpretation Comments GLUCOSE BEDSIDE (test 143 MG/DL 70-110 H Perfor med by certified code = GLUBED) 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 [facility] GLUCOSE [id number] 10:08:00 Test Item Value Reference Range Interpretation Comments GLUCOSE BEDSIDE (test 133 MG/DL 70-110 H Perfor med by certified code = GLUBED) 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 [facility] GLUCOSE [id number] 10:03:00 Test Item Value Reference Range Interpretation Comments GLUCOSE BEDSIDE (test 128 MG/DL 70-110 H Perfor med by certified code = GLUBED) 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 [facility] GLUCOSE [id number] 09:27:00 Test Item Value Reference Range Interpretation Comments GLUCOSE BEDSIDE (test 207 MG/DL 70-110 H Perfor med by certified code = GLUBED) 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 [facility] GLUCOSE [id number] 09:27:00 Test Item Value Reference Range Interpretation Comments GLUCOSE BEDSIDE (test 202 MG/DL 70-110 H Perfor med by certified code = GLUBED) 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 [facility] GLUCOSE [id number] 09:27:00 Test Item Value Reference Range Interpretation Comments GLUCOSE BEDSIDE (test 237 MG/DL 70-110 H Perfor med by certified code = GLUBED) 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 [facility] GLUCOSE [id number] 09:27:00 Test Item Value Reference Range Interpretation Comments GLUCOSE BEDSIDE (test 254 MG/DL 70-110 H Perfor med by certified code = GLUBED) 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 [facility] GLUCOSE [id number] 09:27:00 Test Item Value Reference Range Interpretation Comments GLUCOSE BEDSIDE (test 260 MG/DL 70-110 H Perfor med by certified code = GLUBED) 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 [facility] GLUCOSE [id number] 09:27:00 Test Item Value Reference Range Interpretation Comments GLUCOSE BEDSIDE (test 291 MG/DL 70-110 H Perfor med by certified code = GLUBED) 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 [facility] GLUCOSE [id number] 09:27:00 Test Item Value Reference Range Interpretation Comments GLUCOSE BEDSIDE (test 290 MG/DL 70-110 H Perfor med by certified code = GLUBED) 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 [facility] GLUCOSE [id number] 09:27:00 Test Item Value Reference Range Interpretation Comments GLUCOSE BEDSIDE (test 273 MG/DL 70-110 H Perfor med by certified code = GLUBED) 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 [facility] GLUCOSE [id number] 08:12:00 Test Item Value Reference Range Interpretation Comments GLUCOSE BEDSIDE (test 142 MG/DL 70-110 H Perfor med by certified code = GLUBED) 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 [facility] BASIC METABOLIC [id number] 07:28:00 Test Item Value Reference Range Interpretation [...] code = 7.9 mg/dL 8.0-10.5 L CA) [id number] 07:28:00 Test Item Value Reference Range Interpretation Comments PHOSPHOROUS (test code = PHOS) 1.8 MG/DL 2.5-4.9 L [id number] 07:28:00 Test Item Value Reference Range Interpretation Comments LIPASE (test code = LIP) 45 U/L 13-57 N [id number] 07:28:00 Test Item Value Reference Range Interpretation Comments MAGNESIUM (test code = MAG) 2.73 mg/dL 1.80-2.40 H T4 [id number] 07:28:00 Test Item Value Reference Range Interpretation Comments T4 FREE (test code = T4F) 1.0 ng/dL 0.77-1.61 N THYROID STIMULATING [id number] 07:28:00 Test Item Value Reference Range Interpretation Comments THYROID STIMULATING 0.03 0.42-5.47 L Results in HORMONE (test code = TSH) mi lli-International Units/mL [id number] 05:36:00 Test Item Value Reference Range Interpretation Comments AMMONIA (test code = AMM) 20 umol/L 11-35 N PROTHROMBIN [id number] 05:28:00 Test Item Value Reference Range Interpretation [...] (to prevent recurrent infar ct). CBC W/AUTO [id number] 05:28:00 Test Item Value Reference Range Interpretation [...] code NO = MDIFF) POC ARTERIAL BLOOD [id number] 03:37:00 Test Item Value Reference Range Interpretation Comments POC ARTERIAL BLOOD GAS PH (test 7.397 7.35-7.45 N code = POCPHA) POC ARTERIAL BLOOD GAS PCO2 37.6 mmHg 35.0-45 N (test code = KEEJVX3D) POC TCO2 ARTERIAL (test code = 24.3 POCTCO2) POC ARTERIAL BLOOD GAS PO2 (test 150.8 mmHg 80-100.0 H code = WRSDS0Q) POC HCO3 ARTERIAL (test code = 23.1 MMOL/L 22.0-26.0 N JSQITZ7H) POC BASE EXCESS (test code = -1.7 MMOL/L -4.0-4.0 N POCBEA) POC O2 SATURATION (test code = 99.3 % 90-100 N POCO2S) FIO2 (test code = FIO2A) 30 % PaO2/FiO2 (test code = LRA1QYK9) 502.66 mm/Hg ABG DELIVERY (test code = CARLOS) Adult Vent ABG VENT MODE (test code = AC MODEA) ABG VENT RESP RATE (test code = 18 /MIN RRA) ABG PEEP (test code = PEEPA) 5 cmH2O ABG SITE (test code = SITEA) R Radial SINTIA'S TEST (test code = Positive [facility]) - CT HEAD/BRAIN W/O [id number] 00:00:00 [facility] : 1980 Sex: F Name: HARLEEN MANAZNO [facility] [place] : 1980 Age/S: 40 / F [address] [place] [address] Blvd Unit #: [id number] Loc: [place] [address] Phys: Kermit Casas MD Acct: [id number] Dis Date: Status: ADM IN PHONE #: [phone] Exam Date: 10/11/2021 1608 FAX #: [phone] Reason: encephalopathy EXAMS: CPT CODE: [id number] CT HEAD/BRAIN W/O CONT 30675 PROCEDURE INFORMATION: Exam: CT Head Without Contrast Exam date and time: 10/11/2021 4:08 PM Age: 40 years old Clinical indication: Other: Encephalopathy TECHNIQUE: Imaging protocol: Computed tomography of the head without contrast. Radiation optimization: All CTscans at this facility use at least one [...] vessel ischemic disease. No mass, mass effect, extra- axial fluid collection or hemorrhage is seen. Cerebral ventricles: No ventriculomegaly. Paranasal sinuses: Mild mucosal thickening is present along ethmoid septations and within the maxillary antra bilaterally. There is mild mucosal thickening in the left sphenoid sinus. No fluid levels. Mastoid air cells: Visualized mastoid air cells are well aerated. Bones/joints: Unremarkable. No acute fracture. Soft tissues: Unremarkable. IMPRESSION: No acute intracranial abnormality. No change as compared to a study dated 10/08/2021. at 1624 Reported and signed by: Hollie De La Rosa M.D. CC: Laura Trinh MD; Kermit Casas MD Technologist:CONI Muniz (N)(CT) CTDI: DLP: Trnscb Date/Time: 10/11/2021 (5901) [email or web address] Orig Print D/T: S: 10/11/2021 (9025) PAGE 1 Signed Report- CT ABD PELVIS W/O [id number] 00:00:00 [facility] : 1980 Sex: F Name: HARLEEN MANZANO [facility] : 1980 Age/S: 40 / F [address] [place] [address] Unit #: [id number] Loc: [place] [address] Phys: Kermit Casas MD Acct: [id number] Dis Date: Status: ADM IN PHONE #: [phone] Exam Date: 10/11/2021 1604 FAX #: [phone] Reason: small bowel obstruction EXAMS: CPT CODE: [id number] CT ABD PELVIS W/O CONT 42496 PROCEDURE INFORMATION: Exam: CT Abdomen And Pelvis Without Contrast Exam date and time: 10/11/2021 4:03 PM Age: 40 years old Clinical indication: Other: Small bowel obstruction TECHNIQUE: Imaging protocol: Computed tomography of the abdomen and pelviswithout contrast. Radiation optimization: All CT scans at [...] stomach and duodenum. Normal small bowel. No smallbowel obstruction. Normal colon. Appendix: Normal appendix. Intraperitoneal [...] 1 Signed Report (CONTINUED) Name: HARLEEN MANZANO [facility] : 1980 Age/S: 40 / F [address] [place] [address] Unit #: [id number] Loc: [place] [address] Phys: Kermit Casas MD Acct: [id number] Dis Date: Status: ADM IN PHONE #: [phone] Exam Date: 10/11/2021 1600 FAX #: [phone] Reason: small bowel obstruction EXAMS: CPT CODE: [id number] CT ABD PELVIS W/O CONT 37803 <Continued> Ken talbot Signed by Faizan Boston on 10/11/2021 at 1632 Reported and signed by: Mulugeta Boston M.D. CC: Laura Trinh MD; Kermit Casas MD Technologist:Tg Katie, ARRT (N)(CT) CTDI: DLP: Trnscb Date/Time: 10/11/2021 (1631) KhaiAWG Orig Print D/T: S: 10/11/2021 (711) PAGE 2 Signed Report- XR CHEST 1 [id number] 00:00:00 [facility] : 1980 Sex: F FAX: Laura Trinh MD [phone] [place]: St: ADM FAX: Y J Carlos Gomez MD [phone] Name: ISAKTimiMEREDITHEvy [facility] : 1980 Age/S: 40/F [address] [place] [address] Unit #: [id number] Loc: G.M328 [place] [address] Phys: J Carlos Gomez MD Acct: [id number] Dis Date: Status: ADM IN PHONE #: [phone] Exam Date: 10/11/20211632 FAX #: [phone] Reason: INTUBATED/COVID EXAMS: CPT CODE: [id number] XR CHEST 1 V 14169 PROCEDURE INFORMATION: Exam: XR Chest Exam date and time: 10/11/2021 5:43 AM Age: 40 years old Clinical indication: Pain; Additional info: Intubated/covid TECHNIQUE: Imaging protocol: Radiologic exam of the chest. Views: 1 view. COMPARISON: CR XR CHEST 1V 10/10/2021 8:42 AM FINDINGS: Tubes, catheters and devices: Support devices are stable in position. Lungs: Ill-defined bibasilar infiltrates and diminished lung volumes. Findings may reflect atelectasis, aspiration or pneumonia. Pleural spaces: No pleural effusion. No pneumothorax. Heart/Mediastinum: Heart size is stable. Bones/joints: No acute abnormality. IMPRESSION: 1. Support devices are stable in position. 2. Ill-defined bibasilar infiltrates and diminished lung volumes. Findings may reflect atelectasis, aspiration or pneumonia. at 0627 Reported and signed by: Gunnar Pack M.D. CC: Laura Trinh MD; J Carlos Gomez MD Technologist: RT Dennis(R) Trnscrd Date/Time/By: 10/11/2021 (06) : By: [email or web address] [facility] Print D/T: S: 10/11/2021 (1634) PAGE 1 Signed Report- US RETROPERITONEAL [id number] 00:00:00 [facility] : 1980 Sex: F Name: HARLEEN MANZANO [facility] [place] : 1980 Age/S: 40 / F [address] [place] [address] Unit #: [id number] Loc: [place] [address] Phys: Laura Trinh MD Acct: [id number] Dis Date: Status: ADM IN PHONE #: [phone] Exam Date: 10/11/2021 0753 FAX #: [phone] Reason: JAYLEEN EXAMS: CPT CODE: [id number] RETROPERITONEAL COM 82908 PROCEDURE INFORMATION: Exam: US Retroperitoneal; Complete; Kidneys and Bladder Exam date and time: 10/11/2021 7:19 AM Age: 40 years old Clinical indication: Other: Jayleen TECHNIQUE: Imaging protocol: Real-time ultrasound of the retroperitoneum with image documentation. Completeexam focused on the kidneys and bladder. COMPARISON: No relevant prior studies available. FINDINGS: Right kidney: The right kidney measures 12.9 cm. No stones. No hydronephrosis. Left kidney: Limited visualization left kidney. No stones. No hydronephrosis. Urinary bladder: Unremarkable. IMPRESSION: Noacute sonographic finding [id number] Reported and signed by: Nazario Li M.D. CC: Laura Trinh MD Technologist: Maria Del Rosario Dimas RDMS() Trnscb Date/Time: 10/11/2021 (858) t.SDR.CN5 Orig Print D/T: S: 10/11/2021 (0900) Probe: PAGE 1 Signed ReportAMMONIA 2021-10-10 19:58:00 Test Item Value Reference Range Interpretation Comments AMMONIA (test code = AMM) 21 umol/L 11-35 N LACTIC [id number] 18:51:00 Test Item Value Reference Range Interpretation Comments LACTIC ACID (test code = LACT) 1.1 mmol/L 0.4-1.9 N UA RFLX MICR CULT IF [id number] 18:49:00 Test Item Value Reference Range Interpretation [...] INDWELLING CATH ([place])Cath Status: Under 72 hoursGLUCOSE [id number] 17:37:00 Test Item Value Reference Range Interpretation Comments GLUCOSE BEDSIDE (test 233 MG/DL 70-110 H [facility] med by certified code = GLUBED) 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 [facility] RENAL FUNCTION [id number] 16:09:00 Test Item Value Reference Range Interpretation [...] gap </= 12 mEq/L, then every morning [id number] 16:09:00 Test Item Value Reference Range Interpretation Comments MAGNESIUM (test code = MAG) 2.63 mg/dL 1.80-2.40 H COMMENTS: Every 6 hours until anion gap </= 12 mEq/L, then every morning GLUCOSE [id number] 14:46:00 Test Item Value Reference Range Interpretation Comments GLUCOSE BEDSIDE (test 265 MG/DL 70-110 H Perfor med by certified code = GLUBED) 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 [facility] GLUCOSE [id number] 14:46:00 Test Item Value Reference Range Interpretation Comments GLUCOSE BEDSIDE (test 258 MG/DL 70-110 H Perfor med by certified code = GLUBED) 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 [facility] GLUCOSE [id number] 10:14:00 Test Item Value Reference Range Interpretation Comments GLUCOSE BEDSIDE (test 234 MG/DL 70-110 H Perfor med by certified code = GLUBED) 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 [facility] GLUCOSE [id number] 10:14:00 Test Item Value Reference Range Interpretation Comments GLUCOSE BEDSIDE (test 244 MG/DL 70-110 H Perfor med by certified code = GLUBED) 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 [facility] GLUCOSE [id number] 09:01:00 Test Item Value Reference Range Interpretation Comments GLUCOSE BEDSIDE (test 269 MG/DL 70-110 H Perfor med by certified code = GLUBED) 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 [facility] CBC W/AUTO [id number] 05:36:00 Test Item Value Reference Range Interpretation [...] (test NO code = MDIFF) RENAL FUNCTION [id number] 05:07:00 Test Item Value Reference Range Interpretation [...] gap </= 12 mEq/L, then every morning [id number] 05:07:00 Test Item Value Reference Range Interpretation Comments MAGNESIUM (test code = MAG) 1.84 mg/dL 1.80-2.40 N COMMENTS: Every 6 hours until anion gap </= 12 mEq/L, then every morning GLUCOSE [id number] 05:01:00 Test Item Value Reference Range Interpretation Comments GLUCOSE BEDSIDE (test 263 MG/DL 70-110 H Perfor med by certified code = GLUBED) 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 [facility] GLUCOSE [id number] 05:01:00 Test Item Value Reference Range Interpretation Comments GLUCOSE BEDSIDE (test 264 MG/DL 70-110 H Perfor med by certified code = GLUBED) 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 [facility] GLUCOSE [id number] 05:01:00 Test Item Value Reference Range Interpretation Comments GLUCOSE BEDSIDE (test 265 MG/DL 70-110 H Perfor med by certified code = GLUBED) 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 [facility] GLUCOSE [id number] 05:01:00 Test Item Value Reference Range Interpretation Comments GLUCOSE BEDSIDE (test 272 MG/DL 70-110 H Perfor med by certified code = GLUBED) 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 [facility] GLUCOSE [id number] 05:01:00 Test Item Value Reference Range Interpretation Comments GLUCOSE BEDSIDE (test 275 MG/DL 70-110 H Perfor med by certified code = GLUBED) 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 [facility] GLUCOSE [id number] 05:01:00 Test Item Value Reference Range Interpretation Comments GLUCOSE BEDSIDE (test 270 MG/DL 70-110 H Perfor med by certified code = GLUBED) 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 [facility] GLUCOSE [id number] 05:01:00 Test Item Value Reference Range Interpretation Comments GLUCOSE BEDSIDE (test 323 MG/DL 70-110 H Perfor med by certified code = GLUBED) 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 [facility] GLUCOSE [id number] 05:01:00 Test Item Value Reference Range Interpretation Comments GLUCOSE BEDSIDE (test 330 MG/DL 70-110 H Perfor med by certified code = GLUBED) 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 [facility] POC ARTERIAL BLOOD [id number] 04:22:00 Test Item Value Reference Range Interpretation Comments POC ARTERIAL BLOOD GAS PH (test 7.353 7.35-7.45 N code = POCPHA) POC ARTERIAL BLOOD GAS PCO2 42.3 mmHg 35.0-45 N (test code = VZPDBZ2S) POC TCO2 ARTERIAL (test code = 24.8 POCTCO2) POC ARTERIAL BLOOD GAS PO2 (test 188.3 mmHg 80-100.0 H code = KSYAO3N) POC HCO3 ARTERIAL (test code = 23.5 MMOL/L 22.0-26.0 N FRTKUQ3D) POC BASE EXCESS (test code = -2.0 MMOL/L -4.0-4.0 N POCBEA) POC O2 SATURATION (test code = 99.6 % 90-100 N POCO2S) FIO2 (test code = FIO2A) 35 % PaO2/FiO2 (test code = LWF4GLH7) 538.00 mm/Hg ABG DELIVERY (test code = CARLOS) Adult Vent ABG VENT MODE (test code = AC MODEA) ABG VENT RESP RATE (test code = 18 /MIN RRA) ABG TIDAL VOLUME (test code = 500 ml TVA) ABG PEEP (test code = PEEPA) 5 cmH2O ABG SITE (test code = SITEA) R Radial SINTIA'S TEST (test code = Negative ALLENS) RENAL FUNCTION [id number] 00:37:00 Test Item Value Reference Range Interpretation [...] gap </= 12 mEq/L, then every morning [id number] 00:37:00 Test Item Value Reference Range Interpretation Comments MAGNESIUM (test code = MAG) 1.90 mg/dL 1.80-2.40 N COMMENTS: Every 6 hours until anion gap </= 12 mEq/L, then every morning- XR CHEST 1 [id number] 00:00:[address] [facility] [place] HARLEEN [facility]O : 1980 Sex: F FAX: Greg Mallory MD [place]: St: ADM FAX: James Cruz MD [phone] Name: HARLEEN MANZANO [facility] : 1980 Age/S: 40/F [address] [place] [address] Unit #: [id number] Loc: [facility] [place] [address] Phys: Greg Choe MD Acct: [id number] Dis Date: Status: ADM IN PHONE #: [phone] Exam Date: 10/10/2021856 FAX #: [phone] Reason: Intubated EXAMS: CPT CODE: [id number] XR CHEST 1 V 61605 PROCEDURE INFORMATION: Exam: XR Chest Exam date and time: 10/10/2021 8:42 AM Age: 40 years old Clinical indica tion: Other: Intubated TECHNIQUE: Imaging protocol: Radiologic exam of the chest. Views: 1 view. COMPARISON: CR XR CHEST 1V 10/08/2021 9:20 PM FINDINGS: Tubes, catheters and devices: Endotracheal tube, nasogastric tube and right IJ catheter remain in place Lungs: Lungs are slightly low volume. No definite consolidation allowing for technique. Pleural spaces: Unremarkable. No pleural effusion. No pneumothorax. Heart/Mediastinum: Heart size is within normal limits. Vasculature is unremarkable. Bones/joints: Unremarkable. IMPRESSION: Stable radiographic appearance of the chest. at 0916 Reported and signed by: Nazario Li M.D. CC: Greg Mallory MD; James Teran MD Technologist: RT Prkaash(Cindy) Trnscrd Date/Time/By: 10/10/2021 (915) : By: [email or web address] Orig Print D/T: S: 10/10/2021 (4936) PAGE 1 Signed ReportRENAL FUNCTION PANEL 2021-10-09 20:16:00 Test Item Value Reference Range Interpretation [...] gap </= 12 mEq/L, then every morning [id number] 20:16:00 Test Item Value Reference Range Interpretation Comments MAGNESIUM (test code = MAG) 1.94 mg/dL 1.80-2.40 COMMENTS: Every 6 hours until anion gap </= 12 mEq/L, then every morning GLUCOSE [id number] 17:41:00 Test Item Value Reference Range Interpretation Comments GLUCOSE BEDSIDE (test 334 MG/DL 70-110 H Perfor med by certified code = GLUBED) 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 [facility] GLUCOSE [id number] 16:34:00 Test Item Value Reference Range Interpretation Comments GLUCOSE BEDSIDE (test 383 MG/DL 70-110 H Perfor med by certified code = GLUBED) 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 [facility] GLUCOSE [id number] 14:49:00 Test Item Value Reference Range Interpretation Comments GLUCOSE BEDSIDE (test 383 MG/DL 70-110 H Perfor med by certified code = GLUBED) 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 [facility] RENAL FUNCTION [id number] 14:18:00 Test Item Value Reference Range Interpretation [...] gap </= 12 mEq/L, then every morning [id number] 14:18:00 Test Item Value Reference Range Interpretation Comments MAGNESIUM (test code = MAG) 1.54 mg/dL 1.80-2.40 L COMMENTS: Every 6 hours until anion gap </= 12 mEq/L, then every morning GLUCOSE [id number] 13:08:00 Test Item Value Reference Range Interpretation Comments GLUCOSE BEDSIDE (test 398 MG/DL 70-110 H Perfor med by certified code = GLUBED) 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 [facility] GLUCOSE [id number] 11:12:00 Test Item Value Reference Range Interpretation Comments GLUCOSE BEDSIDE (test 503 MG/DL 70-110 H Perfor med by certified code = GLUBED) 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 [facility] GLUCOSE [id number] 10:27:00 Test Item Value Reference Range Interpretation Comments GLUCOSE BEDSIDE (test 501 MG/DL 70-110 H Perfor med by certified code = GLUBED) 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 [facility] [id number] 08:29:00 Test Item Value Reference Range Interpretation Comments HGBA1C% (test code = HGBA1C%) > 14.0 %A1C 4.8-6.0 H RENAL FUNCTION [id number] 07:03:00 Test Item Value Reference Range Interpretation [...] Critica l result GLU) called to TRU LÓPEZ/Cindy ZarcoLAB.LS at 065 8 10/09/21Nfrancis r nessd back resut and tech confirmed it's correct? [...] gap </= 12 mEq/L, then every morning [id number] 07:03:00 Test Item Value Reference Range Interpretation Comments MAGNESIUM (test code = MAG) 1.65 mg/dL 1.80-2.40 L COMMENTS: Every 6 hours until anion gap </= 12 mEq/L, then every morning GLUCOSE [id number] 06:26:00 Test Item Value Reference Range Interpretation Comments GLUCOSE BEDSIDE > 600 MG/DL 70-110 H Performed by certified (test code = GLUBED) operato r at [facility] GLUCOSE [id number] 06:18:00 Test Item Value Reference Range Interpretation Comments GLUCOSE BEDSIDE > 600 MG/DL 70-110 H Performed by certified (test code = GLUBED) operato r at [facility] GLUCOSE [id number] 06:18:00 Test Item Value Reference Range Interpretation Comments GLUCOSE BEDSIDE > 600 MG/DL 70-110 H Performed by certified (test code = GLUBED) operato r at [facility] GLUCOSE [id number] 06:18:00 Test Item Value Reference Range Interpretation Comments GLUCOSE BEDSIDE > 600 MG/DL 70-110 H Performed by certified (test code = GLUBED) operato r at [facility] GLUCOSE [id number] 06:18:00 Test Item Value Reference Range Interpretation Comments GLUCOSE BEDSIDE > 600 MG/DL 70-110 H Performed by certified (test code = GLUBED) operato r at [facility] GLUCOSE [id number] 06:18:00 Test Item Value Reference Range Interpretation Comments GLUCOSE BEDSIDE > 600 MG/DL 70-110 H Performed by certified (test code = GLUBED) operato r at [facility] POC ARTERIAL BLOOD [id number] 04:05:00 Test Item Value Reference Range Interpretation Comments POC ARTERIAL BLOOD GAS PH (test 7.223 7.35-7.45 LL code = POCPHA) POC ARTERIAL BLOOD GAS PCO2 29.3 mmHg 35.0-45 LL (test code = KANWTK2A) POC TCO2 ARTERIAL (test code = 13.0 POCTCO2) POC ARTERIAL BLOOD GAS PO2 (test 217.6 mmHg 80-100.0 HH code = PBNRO6I) POC HCO3 ARTERIAL (test code = 12.1 MMOL/L 22.0-26.0 LL JGHQPH6V) POC BASE EXCESS (test code = -15.6 MMOL/L -4.0-4.0 L POCBEA) POC O2 SATURATION (test code = 99.6 % 90-100 N POCO2S) FIO2 (test code = FIO2A) 40 % PaO2/FiO2 (test code = DSN6HKU0) 544.00 mm/Hg ABG DELIVERY (test code = CARLOS) Adult Vent ABG VENT MODE (test code = AC MODEA) ABG VENT RESP RATE (test code = 18 /MIN RRA) ABG TIDAL VOLUME (test code = 500 ml TVA) ABG PEEP (test code = PEEPA) 5 cmH2O ABG SITE (test code = SITEA) R Radial SINTIA'S TEST (test code = Positive ALLENS) COMPREHENSIVE METABOLIC [id number] 22:09:00 Test Item Value Reference Range Interpretation [...] Critical result = GLU) called to Sheldon NELSON[facility].UN at 220 7 10/08/21Nurse r ead back [...] H PHOSPHATASE TOTAL (test code = ALKP) [id number] 22:09:00 Test Item Value Reference Range Interpretation Comments PHOSPHOROUS (test code = PHOS) 7.1 MG/DL 2.5-4.9 H [id number] 22:09:00 Test Item Value Reference Range Interpretation Comments MAGNESIUM (test code = MAG) 2.02 mg/dL 1.80-2.40 N CBC W/AUTO [id number] 22:01:00 Test Item Value Reference Range Interpretation [...] 3/uL 0.0-0.1 N code = NRBC#) LACTIC [id number] 21:47:00 Test Item Value Reference Range Interpretation Comments LACTIC ACID (test code = LACT) 1.3 mmol/L 0.4-1.9 N - US ABDOMEN [id number] 20:27:00 [facility] 1980 Sex: F Name: HARLEEN MANZANO [facility] : 1980 Age/S: 40 / F [address] [place] Unit #: [id number] Loc: [place] [address] Phys: Chuy Vega MD Acct: [id number] Dis Date: Status: [facility] ER PHONE #: [phone] Exam Date: 10/08/20212022 FAX #: Reason: Abdominal pain, elevated lipase, AMS EXAMS: CPT: [id number] US ABDOMEN COMPLETE 80998 EXAMINATION: - US ABDOMEN COMPLETE INDICATION: Abdominal pain, elevated lipase, AMS COMPARISON: Ultrasound abdomen June 02, 2011 LOCATION: 8 TECHNIQUE: Grayscale and Doppler sonographic images were obtained of the abdomen. FINDINGS: Exam is significantly limited by body habitus and bowel gas. Liver is unremarkable in appearance. Common bile duct measures 0.4cm in caliber where visualized. No gallstones. Gallbladder [...] of exam. IMPRESSION: Significantly limited exam. No abnormalitieswere seen. at 2026 Reported and signed by: Michael Justice M.D. CC: Chuy Vega MD Technologist: Keg Raiser Trnscb Date/Time: 10/08/2021 (2026) KhaiPE1 PAGE 1 Signed Report Name: HARLEEN MANZANO [place] : 1980 Age/S: 40 / F [address] Unit #: [id number] Loc: [place] [address] Phys: Chuy Vega MD Acct: [id number] Dis Date: Status: DEP ER PHONE #: [phone] Exam Date: 10/08/20212022 FAX #: Reason:Abdominal pain, elevated lipase, AMS EXAMS: CPT: [id number] US ABDOMEN COMPLETE 48639 (Continued) Orig Print D/T: S: 10/08/2021 (2030) Probe: PAGE 2 Signed ReportBASIC METABOLIC [id number] 18:34:00 Test Item Value Reference Range Interpretation [...] CK) Last Dose Date: 10/08/21 Dose Time: [id number] 18:34:00 Test Item Value Reference Range Interpretation Comments ACETAMINOPHEN (test code = ACET) < 2.0 mcG/ML 10.0-30.0 L Last Dose Date: 10/08/21 Dose Time: 1408VENOUS BLOOD [id number] 17:58:00 Test Item Value Reference Range Interpretation [...] SITE (test code = SITEV) CBC W/O [id number] 17:53:00 Test Item Value Reference Range Interpretation [...] = 11.60 fL 7.0-10.5 H MPV) LACTIC [id number] 17:34:00 Test Item Value Reference Range Interpretation Comments LACTIC ACID (test code = LACT) 1.0 mmol/L 0.4-2.0 CBC W/AUTO [id number] 16:47:00 Test Item Value Reference Range Interpretation [...] DIFF REQUIRED NO DIFF/SCN CRITERIA SLIDE R LUISW (test code = MDIFF) CONSISTA NT WITH AUTO DIFFERENTI AL. - CT HEAD/BRAIN W/O [id number] 16:32:00 [facility] 1980 Sex: F Name: HARLEEN MANZANO [facility] : 1980 Age/S: 40 / F [address] [address] Unit #: [id number] Loc: [place] [address] Phys: Chuy Vega MD Acct: [id number] Dis Date: Status: REG ER PHONE #: [phone] Exam Date: 10/08/20211612 FAX #: Reason: found down, vomiting EXAMS: CPT: [id number] CT HE AD/BRAIN W/O CONT 70528 Location code: H5 CT Cervical Spine Indication: found down, vomiting. Comparison: none. Technique: Axial images were obtained with sagittal and coronal reconstruction. Dose: 1352.07 mGy. This exam was performed according to our departmental dose-optimization program, which includes automated exposure control, adjustment of the mA and/or kV according to patient size and/or useof iterative reconstruction technique. Findings: Alignment is satisfactory . Vertebral body height is maintained. No fracture or subluxation. Mild narrowing of the intervertebral disc spaces with moderate anterior spondylosis at C4-5 and C5-6. The craniocervical junction is intact. Soft tissues are unremarkable. C2 -- 3: Unremarkable. C3 -- 4: Unremarkable. C4---5: Unremarkable. C5 -- 6: Unremarkable. C6 -- 7: Unremarkable. C7 -- T1: Unremarkable. NG tube and oral endotracheal tube in place. PAGE 1 Signed Report (CONTINUED) [place]: [place] : 1980 Age/S: 40 / F [address] Unit #: [id number] Loc: [place] [address] Phys: Chuy Vega MD Acct: [id number] Dis Date: Status: REG ER PHONE #: [phone] Exam Date: 10/08/2021 161 FAX #: Reason: found down, vomiting EXAMS: CPT: [id number] CT HEAD/BRAIN W/O CONT 53768 (Continued) Impression: 1. No evidence of trauma. Location code: H5 CT Brain Without Contrast Indication: found down, vomiting Comparison: None Technical factors: Axial images were obtained from the base of the skull to the vertex. Sagittal and coronal reconstruction.Dose: 1352 mGy. This exam was performed according to our departmental dose-optimization program, which includes automated exposure control, adjustment of the mA and/or kV according topatient size and/or use of iterative reconstruction technique. Findings: Ventricles and sulci are ofnormal caliber for patient age. No hemorrhage, mass-effect, or abnormal extra-axial fluid collection. No evidence of acute infarct. Calvarium is unremarkable. No confluent otomastoid disease. Orbits are normal in appearance. Paranasal sinuses are clear. Impression: 1. Normal non contrast CT scan of the brain. PAGE 2 Signed Report (CONTINUED) Name: HARLEEN MANZANO [facility] : 1980 Age/S: 40 / F [address] [address] Unit #: [id number] Loc: [place] [address] Phys: Chuy Vega MD Acct: [id number] Dis Date: Status: REG ER PHONE #: [phone] Exam Date: 10/08/2021 1613 FAX #: Reason: found down, vomiting EXAMS: CPT: [id number] CT HEAD/BRAIN W/O CONT 15626 (Continued) at 1632 Reported and signed by: Pro Ugarte M.D. CC: Chuy Vega MD Technologist:James Osullivan, RT(R); Damian CTDI: DLP: Trnscb Date/Time: 10/08/2021 (1631) [email or web address] Orig Print D/T: S: 10/08/2021 (1634) PAGE 3 Signed Report- CT C-SPINE W/O [id number] 16:32:00 [facility] 1980 Sex: F Name: HARLEEN MANZANO [facility] : 1980 Age/S: 40 / F [address] [facility] Unit #: [id number] Loc: [place] [address] Phys: Chuy Vega MD Acct: [id number] Dis Date: Status: REG ER PHONE #: [phone] Exam Date: 10/08/2021 161 FAX #: Reason: found down, vomiting EXAMS: CPT: [id number] CT C-SPINE W/O CONT 28238 Location code: H5 CT Cervical Spine Indication: [...] narrowing of the intervertebral disc spaces with moderate anterior spondylosis at C4-5 and C5-6. The craniocervical junction is intact. Soft tissues are unremarkable. C2 -- 3: Unremarkable. C3 -- 4: Unremarkable. C4---5: Unremarkable. C5 -- 6: Unremarkable. C6 -- 7: Unremarkable. C7 -- T1: Unremarkable. NG tube and oral endotracheal tube in place. PAGE 1 Signed Report (CONTINUED) Name: HARLEEN MANZANO [place] : 1980 Age/S: 40 / F [address] [place] [address] Unit #: [id number] Loc: [place] [address] Phys: Chuy Vega MD Acct: [id number] Dis Date: Status: REG ER PHONE #: [phone] Exam Date: 10/08/2021 161 FAX #: Reason: found down, vomiting EXAMS: CPT: [id number] CT C-SPINE W/O CONT 15031 (Continued) Impression: 1. No evidence of trauma. [...] reconstruction technique. Findings: Ventricles and sulci are ofnormal caliber for patient age. No hemorrhage, mass-effect, or abnormal extra-axial fluid collection. No evidence of acute infarct. Calvarium is unremarkable. No confluent otomastoid disease. Orbits are normal in appearance. Paranasal sinuses are clear. Impression: 1. Normal non contrast CT scan of the brain. PAGE 2 Signed Report (CONTINUED) Name: HARLEEN MANZANO [facility] : 1980 Age/S: 40 / F [address] [address] Unit #: [id number] Loc: [place] [address] Phys: Chuy Vega MD Acct: [id number] Dis Date: Status: REG ER PHONE #: [phone] Exam Date: 10/08/2021 1612 FAX #: Reason: found down, vomiting EXAMS: CPT: [id number] CT C-SPINE W/O CONT 93529 (Continued) at 1632 Reported and signed by: Pro Ugarte M.D. CC: Chuy Vega MD Technologist:James Osullivan, RT(R); Damian CTDI: DLP: Trnscb Date/Time:10/08/2021 (163) t.SDR.[email or web address] Orig Print D/T: S: 10/08/2021 (1635) PAGE 3 Signed ReportBASIC METABOLIC [id number] 16:28:00 Test Item Value Reference Range Interpretation [...] Physician Notified: .Date & Time Test Performed: .[id number] 16:28:00 Test Item Value Reference Range Interpretation Comments PHOSPHOROUS (test code = PHOS) 8.9 MG/DL 2.5-4.9 H Completed by Nursing: YESTroponin I Result: .Performed By: .If Critical Value, Physician Notified: .Date & Time Test Performed: .[id number] 16:28:00 Test Item Value Reference Range Interpretation Comments LIPASE (test code = LIP) 636 Unit/L 114-286 H Completed by Nursing: YESTroponin I Result: .Performed By: .If Critical Value, Physician Notified: .Date & Time Test Performed: .[id number] 16:28:00 Test Item Value Reference Range Interpretation Comments MAGNESIUM (test code = MAG) 2.7 MG/DL 1.8-2.4 H Completed by Nursing: YESTroponin I Result: .Performed By: .If Critical Value, Physician Notified: .Date & Time Test Performed: .NT PRO-BRAIN NATRIURETIC [id number] 16:28:00 Test Item Value Reference Range Interpretation [...] Physician Notified: .Date & Time Test Performed: .[id number] 16:28:00 Test Item Value Reference Range Interpretation Comments ALCOHOL (test code = ALC) < 3 MG/DL 0-10 N Completed by Nursing: YESTroponin I Result: .Performed By: .If Critical Value, Physician Notified: .Date & Time Test Performed: .- XR CHEST 1 [id number] 16:15:00[facility] : 1980 Sex: F Name: HARLEEN [facility]O [facility] [place] : 1980 Age/S: 40 / F [id number] Unit #: [id number] Loc: [place] [address] Phys: Chuy Vega MD Acct: [id number] Dis Date: Status: REG ER PHONE #: [phone] Exam Date: 10/08/2021 1608 FAX #: Reason: Code Sepsis EXAMS: CPT: [id number] XR CHEST 1 V 04790 Fluoro Time: DAP (Gy m2): Air Kerma [...] and signed by: Timi Davis M.D. CC: Chuy Vega MD PAGE 1 Signed Report Name: HARLEEN MANZANO [facility] : 1980 Age/S: 40 / F [address] Unit #: [id number] Loc: [place] [address] Phys: Chuy Vega MD Acct: [id number] Dis Date: Status: REG ER PHONE #: [phone] Exam Date: 10/08/2021 1608 FAX #: Reason: Code Sepsis EXAMS: CPT: [id number] XR CHEST 1 V 84482 Fluoro Time: DAP (Gy m2): Air Kerma (mGy): (Continued) Technologist: Anisa Peng, RT(R) Trnscb Date/Time: 10/08/2021 (1614) [email or web address] Orig Print D/T:S: 10/08/2021 (746) PAGE 2 Signed ReportUA RFLX MICR CULT IF [id number] 15:26:00 Test Item Value Reference Range Interpretation [...] for culture: Gross HematuriaDRUGS OF ABUSE SCREEN [id number] 15:26:00 Test Item Value Reference Range Interpretation [...] for culture: Gross HematuriaCOVID 19 Asymptomatic IH [id number] 15:01:00 Test Item Value Reference Range Interpretation Comments COVID 19 Asymptomatic IH AG (test POSITIVE Negative A code = COVNONPUIAG) HCG [id number] 15:00:00 Test Item Value Reference Range Interpretation Comments HCG SERUM (test < 1 mi-IU/ML 0-6 N 0 - 6 NOT P REGNANT > 6 code = HCG) SUGGESTIVE OF E YEHUDA RISES TWO FOLD EVERY 2 DAYS; S UGGEST RECONFIRMING AF TER 2 DAYS. 150,000-2 00[address] TRIMESTER 10 ,000 - 50,000 2ND & 3R D TRIMESTER LACTIC [id number] 15:00:00 Test Item Value Reference Range Interpretation Comments LACTIC ACID (test code = LACT) 2.1 mmol/L 0.4-2.0 H [id number] 14:59:00 Test Item Value Reference Range Interpretation Comments SALICYLATE (test code 4.8 MG/DL See_Comment N [Auto mated message] = RAMON) The system whic h generated this result transmitted ref erence range: 2.8-20.0 THER. The reference r west was not used to interpret this result as normal/abnor mal. PROTHROMBIN [id number] 14:47:00 Test Item Value Reference Range Interpretation [...] (to prevent recurrent infar ct). THROMBOPLASTIN TIME [id number] 14:47:00 Test Item Value Reference Range Interpretation Comments THROMBOPLASTIN TIME PARTIAL 26.3 SECONDS 26-35 N (test code = PTT) VENOUS BLOOD [id number] 14:19:00 Test Item Value Reference Range Interpretation [...] code = SITEV) - XR CHEST 1 [id number] 00:00:[address] [facility] : 1980 Sex: F FAX: Mark Gorman MD [place]: St: ADM Name: HARLEEN MANZANO [facility] : 1980 Age/S: 40/F [address] [place] [address] Unit #: [id number] Loc: [place] [address] Phys: Mark Gorman MD Acct: [id number] Dis Date: Status: ADM IN PHONE #: [phone] Exam Date: 10/08/20212149 FAX #: [phone] Reason: intubated EXAMS: CPT CODE: [id number] XR CHEST 1 V 32910 PROCEDURE INFORMATION: Exam: XR Chest Exam date and time: 10/08/2021 9:20 PM Age: 40 years old Clinical indication: Device placement; Ett placement (vent status); Additional info: Intubated TECHNIQUE: Imaging protocol: Radiologic exam of the chest. Views: 1 view. COMPARISON: CR XR CHEST 1V 10/08/2021 3:50 PM FINDINGS: Tubes, catheters and devices: Anendotracheal tube terminates 5.1 cm above the watson. An enteric tube enters the stomach and extendsbeyond the field of view. A right neck access central venous catheter terminates in the superior vena cava similar to prior. Lungs: Unremarkable. No consolidation. Pleural spaces: Unremarkable. No pleural effusion. No pneumothorax. Heart/Mediastinum: Unremarkable. No cardiomegaly. Bones/joints: Unremarkable. IMPRESSION: 1. An endotracheal tube terminates 5.1 cm above the watson. 2. An enteric tube enters the stomach and extends beyond the field of view. 3. A right neck access central venous catheterterminates in the superior vena cava similar to prior. 4. There is no acute cardiopulmonary process. at 2221 Reported and signed by: Mark De Leon D.O. CC: Mark Gorman MD Technologist: RT Ronn(R) Trnscrd Date/Time/By:10/08/2021 (2220) : By: [email or web address] Orig Print D/T: S: 10/08/2021 (2220) PAGE 1 Signed Report Notes Date/Time Note Provider Source 2022-08-10 20:06:00-00:00 [facility] ([facility]) EMERGENCY PROVIDER REPORT REPORT#:[id number] REPORT STATUS: Signed DATE:08/10/22 TIME:2005 PATIENT: HARLEEN MANZANO UNIT #: [id number] ROOM/BED: : 80 AGE: 41 SEX: F PCP PHYS: No Primar y or Family Physician SERVICE AUTHOR: Hallie Medina MD * ALL edits or amendments must be made on the [employer]/computer document * HPI- Female Free Text HPI [...] August 18 General Initial Greet Date/Time 08/10/22 7665 Presentation Chief Complaint Urinary frequency )( Sudden [...] DME - GLUCOSE LANCETS (GLUCOSE LANCETS) EACH MT SC DAILY #400 Prov: 10/22/21 DME - [...] % (Auto) (20.5 - 51.1 %) 37.9 [place] % (Auto) (1.7 - 9.3 %) 5.9 Eos % (Auto) (0.0 - 6.0 %) 0.0 Baso % (Auto) (0.0 - 2.0 %) 0.6 Neut # (Auto) (1.8 - 7.6 K/mm3) 6.1 Lymph # (Auto) (0.6 - 3.2 K/mm3) 4.2 H [place] # (Auto) (0.3 - 1.1 K/mm3) 0.7 [...] Result Date Time Pulse Ox 100 08/11 0015 B/P 148/91 08/115 B/P Mean 110 08/11 14 O2 Delivery [...] symptoms should prompt an immediate return to [facility] or the closest emergency department or a call to 1. at 2341 RPT #: [id number] END OF REPORT 2022-02-19 20:54:00-00:00 [id number] [address] PATIENT NAME: HARLEEN MANZANO ADMIT DATE: 2 ACCOUNT NO: [id number] ROOM NO: L.S218 AGE: 41 REPORT TYPE: 360 - QUERY RESPONSE DOCUMENT SEX: F ADMITTING PHYSICIAN: Marshal Maya MD ATTENDING PHYSICIAN: Marshal Maya MD Provider Query QUERY TEXT: Relationship Procedure Condition 360MD Query related questions should be directed to::Jennifer montenegro [facility] Coding Query Helpline Please clarify the etiology [...] PATIENT NAME: HARLEEN MANZANO 0412 2022-02-13 19:08:00-00:00 [facility] Infectious Dis. Progress Note REPORT#:[id number] REPORT STATUS: Signed DATE:02/13/22 TIME:1907 PATIENT: HARLEEN MANZANO UNIT #: [id number] ROOM[address]BED: [address] : 80 AGE: 41 SEX: F ATTEND: Tee Maya MD ADM AUTHOR: Pro Bustamante MD * ALL edits or amendments must be made on the [employer]/computer document * Subjective Chief complaint: Foot infection [...] 127/79 02/13 1128 B/P Mean 94.8 02/13 1128 O2 Delivery Room air 02/13 1128 Temp 36.9 02/13 1128 Pulse 90 02/13 1128 Resp 14 02/13 1128 Vital Signs: Date [...] distention Extremities: Left foot with dressing Neuro/PNEUMATIC PRESS HAND: alert, oriented X 3, normal speech Diagnosis, [...] from ID standpoint. at 1909 RPT #: [id number] END OF REPORT 2022-02-13 14:35:00-00:00 [facility] ([facility]) Hospitalist Discharge Summary REPORT#:[id number] REPORT STATUS: Signed DATE:02/13/22 TIME:1435 PATIENT: HARLEEN MANZANO UNIT #: [id number] ROOM/BED: [facility]18-1 : 80 AGE: 41 SEX: F ATTEND: Tee Maya MD ADM AUTHOR: Prakash Larsen MD * ALL edits or amendments must be made on the el [employer]ronic/computer document * General Information Date of admission: [...] her foot a pproximately 4 weeks ago HAND IRONER. Patient has a severe appearing infection on [...] by Prakash Larsen MD on at 1849 [facility] #: [id number] END OF REPORT 2022-02-12 11:56:00-00:00 [facility] ([facility]) Hospitalist Progress Note REPORT#:[id number] REPORT STATUS: Signed DATE:02/12/22 TIME:1156 PATIENT: HARLEEN MANZANO UNIT #: [id number] ROOM/BED: [place] [address] : 80 AGE: 41 SEX: F ATTEND: Tee Maya MD ADM AUTHOR: Prakash Larsen MD * ALL edits or amendments must be made on the [employer] document * Subjective Chief complaint: left foot [...] LLE open wound/edema Musculoskeletal: normal inspection Neuro/PNEUMATIC PRESS HAND: alert, oriented X 3, normal speech, n [...] Larsen MD on at 0758 RPT #: [id number] END OF REPORT 2022-02-12 10:07:00-00:00 [facility] ([facility]) Infectious Dis. Progress Note REPORT#:[id number] REPORT STATUS: Signed DATE:02/12/22 TIME:1007 PATIENT: HARLEEN MANZANO UNIT #: [id number] ROOM/BED: [place] [address] : 80 AGE: 41 SEX: F ATTEND: Tee Maya MD ADM AUTHOR: Pro Bustamante MD * ALL edits or amendments must be made on the el [employer]/computer document * Subjective Chief complaint: Foot infection [...] 124/78 02/12 0630 B/P Mean 93.0 02/12 630 O2 Delivery Room air 02/12 630 Temp 36.9 02/12 630 Pulse 90 02/12 0630 Resp 16 02/12 630 Vital Signs: Date Time Temp Pulse Resp [...] distention Extremities: Left foot with dressing Neuro/PNEUMATIC PRESS HAND: alert, oriented X 3, normal speech Diagnosis, [...] from ID standpoint. at 1010 RPT #: [id number] END OF REPORT 2022-02-11 20:50:00-00:00 [facility]) Orthopaedic Progress Note REPORT#:[id number] REPORT STATUS: Signed DATE:02/11/22 TIME:2049 PATIENT: HARLEEN MANZANO UNIT #: [id number] ROOM/BED: [place] [address] : 80 AGE: 41 SEX: F ATTEND: Tee Maya MD ADM AUTHOR: Hector Garcia MD * ALL edits or amendments must be made on the [employer] document * Subjective Chief complaint: had long discussion with jamaica peguero, did not have silvadene dressing changes until today, fluid not abscess but fluid from wound, n o surgical debridement indications, will follow Electronically Signed by Hector Garcia MD on at 2059 RPT #: [id number] END OF REPORT 2022-02-11 13:58:00-00:00 [facility] ([facility]) Infectious Dis. Progress Note REPORT#:[id number] REPORT STATUS: Signed DATE:02/11/22 TIME:1357 PATIENT: HARLEEN MANZANO UNIT #: [id number] ROOM/BED: [place] [address] : 80 AGE: 41 SEX: F ATTEND: Tee Maya MD ADM AUTHOR: Pro Bustamante MD * ALL edits or amendments must be made on the el [employer] document * Subjective Chief complaint: Foot infection HPI: Last WBC was normal, pt is on vancomycin, ceftri axone and metronidazole. Review of Systems Constitutional: Denies: fever. Objective Physical Exam Head/Eyes: atraumatic, normocephalic Cardiovascular: regular rate rhythm Respiratory: aerating well, no distress Abdomen: non-tender, soft, no distention Extremities: Left foot with dressing Neuro/PNEUMATIC PRESS HAND: alert, oriented X 3, normal speech Diagnosis, [...] to arrange home IV abxs. at 2216 RPT #: [id number] END OF REPORT 2022-02-11 11:58:00-00:00 [facility] ([facility]) Hospitalist Progress Note REPORT#:[id number] REPORT STATUS: Signed DATE:02/11/22 TIME:1158 PATIENT: HARLEEN MANZANO UNIT #: [id number] ROOM/BED: [facility]18-1 : 80 AGE: 41 SEX: F ATTEND: Cy Maya MD ADM AUTHOR: Prakash Larsen MD * ALL edits or amendments must be made on the el [employer]/computer document * Subjective Chief complaint: left foot [...] LLE open wound/edema Musculoskeletal: normal inspection Neuro/PNEUMATIC PRESS HAND: alert, oriented X 3, normal speech, n [...] Larsen MD on at 1159 RPT #: [id number] END OF REPORT 2022-02-11 08:31:00-00:00 [facility] Prog.Note-Vancomycin REPORT#:[id number] REPORT STATUS: Signed DATE:02/11/22 TIME:830 PATIENT: HARLEEN MANZANO UNIT #: [id number] ROOM/BED: [place] [address] : 80 AGE: 41 SEX: F ATTEND: Tee Maya MD ADM AUTHOR: Jose Grace [facility] * ALL edits or amendments must be made on the [employer] document * Vancomycin Vancomycin Medication Therapy Goal: AUC 400-600 mcg*hr/mL Indication for treatment: LEFT FOOT OSTEOMYELITIS VS and I/O: Vital Signs Date Temp Pulse Resp B/P B/P Mean Pulse Ox FiO2 02/08-02/11 36.4-37.0 85-106 14-16 102-165/66-97 78.5-119.8 98-100 72 hours ending at 0700 02/11 0700 02/10 1900 02/10 0700 02/09 1900 02/08 0700 1900 Intake 500 500 Total Output Total Balance 500 500 Intake, 500 500 Oral Number 1 Voids 72 Hour I O Total 02/11 0702/10 0700 02/09 0700 Intake Total 500 500 Output Total Balance 500 500 Labs: Laboratory Tests: 02/11 02/10 02/10 0624 2030 1206 Toxicology Vancomycin Peak (20 - [...] to follow up! at 0832 RPT #: [id number] END OF REPORT 2022-02-10 10:29:00-00:00 [facility] Infectious Dis. Progress Note REPORT#:[id number] REPORT STATUS: Signed DATE:02/10/22 TIME:1029 PATIENT: HARLEEN MANZANO UNIT #: [id number] ROOM/BED: [place] [address] : 80 AGE: 41 SEX: F ATTEND: Tee Maya MD ADM AUTHOR: Donna Vieyra MD * ALL edits or amendments must be made on the [employer]/computer document * Subjective HPI: 41-year-old morbidly obese [...] but still she did not present to er appointments. Pt now presents to the [...] 154/91 02/10 0714 B/P Mean 112.3 02/10 07 O2 Delivery Room air 02/10 714 Temp 37.0 02/10 714 Pulse 106 02/10 07 Resp 14 02/10 714 Vital Signs: Date Time Temp Pulse Resp B/P B/P Pulse O2 O2 F low FiO2 Mean Ox Delivery Rate 02/10 714 37.0 106 14 154/91 112.3 100 Room [...] pain Extremities: Left foot with dressing Neuro/PNEUMATIC PRESS HAND: alert, oriented X 3, normal speech Skin: [...] optimal po Ab to treat the [facility] it is also ampicillin resistant MRI (osteomyelitis [...] MD on 06/02 at 1647 RPT #: [id number] END OF REPORT 2022-02-09 14:04:00-00:00 [facility] ([facility]) Hospitalist Progress Note REPORT#:[id number] REPORT STATUS: Signed DATE:02/09/22 TIME:1403 PATIENT: HARLEEN MANZANO UNIT #: [id number] ROOM/BED: S218-1 : 80 AGE: 41 SEX: F ATTEND: Tee Maya MD ADM AUTHOR: Prakash Larsen MD * ALL edits or amendments must be made on the [employer]computer document * Subjective Chief complaint: left foot [...] LLE open wound/edema Musculoskeletal: normal inspection Neuro/PNEUMATIC PRESS HAND: alert, oriented X 3, normal speech, n [...] Larsen MD on at 1405 RPT #: [id number] END OF REPORT 2022-02-09 10:27:00-00:00 [facility] ([facility]) Infectious Dis. Progress Note REPORT#:[id number] REPORT STATUS: Signed DATE:02/09/22 TIME:1027 PATIENT: HARLEEN MANZANO UNIT #: [id number] ROOM/BED: [place] [address] : 80 AGE: 41 SEX: F ATTEND: Tee Maya MD ADM AUTHOR: Donna Vieyra MD * ALL edits or amendments must be made on the [employer] document * Subjective HPI: 41-year-old morbidly obese [...] let the antbiotic bags . She informed m evy that she did not take the antibiotics [...] but still she did not present to er appointments. Pt now presents to the [...] Result Date Time Pulse Ox 99 02/09 638 B/P 128/74 02/09 638 B/P Mean 91.6 02/09 638 O2 Delivery Room air 02/09 638 Temp 37.0 02/09 638 Pulse 96 02/09 638 Resp 14 02/09 638 Vital Signs: Date Time Temp Pulse Resp B/P B/P Pulse O2 O2 F low FiO2 Mean Ox Delivery Rate 02/09 638 37.0 96 14 128/74 91.6 99 Room [...] pain Extremities: Left foot with dressing Neuro/PNEUMATIC PRESS HAND: alert, oriented X 3, normal speech Skin: [...] Donna Vieyra MD on 05/02 at 1553 RPT #: [id number] END OF REPORT 2022-02-08 11:36:00-00:00 [facility] ([facility]) Infect Disease Consult Note REPORT#:[id number] REPORT STATUS: Signed DATE:02/08/22 TIME:1136 PATIENT: HARLEEN MANZANO UNIT #: [id number] ROOM/BED: [place] [address] : 80 AGE: 41 SEX: F ATTEND: Tee Maya MD ADM AUTHOR: Pro Bustamante MD * ALL edits or amendments must be made on the [employer]/computer document * History of Present Illness Reason [...] Resp B/P B/P Mean Pulse Ox FiO2 02/07-02/08 36.7-36.9 85-103 14-19 139-160/73-8 9 95-112.4 [...] 36.7 95 14 143/83 103.1 100 Room ai r 02/08 0144 36.9 103 18 160/89 112.4 [...] with foul smell, wi th dressing Neuro/PNEUMATIC PRESS HAND: alert, oriented X 3, CNII-XII intact, normal [...] for this consult. at 1530 RPT #: [id number] END OF REPORT 2022-02-08 10:56:00-00:00 [facility] ([facility]) Hospitalist Progress Note REPORT#:[id number] REPORT STATUS: Signed DATE:02/08/22 TIME:105 PATIENT: HARLEEN MANZANO UNIT #: [id number] ROOM/BED: [place] [address] : 80 AGE: 41 SEX: F ATTEND: Tee Maya MD ADM AUTHOR: Stephy Benitez MSN * ALL edits or amendments must be made on the [employer]/computer document * Stephy Benitez 02/08/22 1056: Subjective [...] Extremities: moves all, LLE open wound/edema Neuro/PNEUMATIC PRESS HAND: alert, oriented X 3, normal speech, n [...] - 5.0 G/DL) 3.3 L Laboratory Tests 02/074 Hematology WBC (3.5 - 11.0 K/mm3) 11.7 [...] % (Auto) (20.5 - 51.1 %) 36.8 [place] % (Auto) (1.7 - 9.3 %) 5.7 Eos % (Auto) (0.0 - 6.0 %) 0.0 Baso % (Auto) (0.0 - 2.0 %) 0.6 Neut # (Auto) (1.8 - 7.6 K/mm3) 6.6 Lymph # (Auto) (0.6 - 3.2 K/mm3) 4.3 H [place] # (Auto) (0.3 - 1.1 K/mm3) 0.7 [...] - 7.0 pH UNITS) 6.0 Ur Specific [place] (1.005 - 1.030 SG) 1.010 Urine Protein [...] ppx: hold for possible surgery Full code Zulma,Musaddiq 02/08/22 1425: Attestations Physician Attestation Agree w/findings plan: Agree with the findings and plan as documented facundo Keyes NP; * my personal evaluation is L foot wound, ortho consult, IV antibx Electronically Signed by Stephy Benitez MSN o n 02/08/22 at 1102 Electronically Signed by Marshal Maya MD on 1 at 1429 [facility] #: [id number] END OF REPORT 2022-02-08 10:56:00-00:00 [id number] [place] [address] PATIENT NAME: HARLEEN MANZANO ADMIT DATE: 2 ACCOUNT NO: [id number] ROOM NO: L.S218 AGE: 41 REPORT TYPE: CONSULTATION SEX: F ADMITTING PHYSICIAN: Marshal Maya MD ATTENDING PHYSICIAN: Marshal Maya MD CONSULTATION DATE: 02/08/2022 CLOTH SHRINKER: Hector Garcia MD. HISTORY OF PRESENT ILLNESS: This is a very pleas ant 41-year-old who was here with her 10-year-old mayuri flynn who unfortunately back in November had an amputation of the fifth toe. She showed me pictures from th at, initially had a very big ulcer [...] Dictated: 02/08/2022 10:56:26 Date Transcribed: 02/08/2022 18:49:16 KD/BHA Receipt ID: [id number] Authenticated by Hector Garcia MD On 09:41:53 AM at 0941 PATIENT NAME: HARLEEN MANZANO 0412 2022-02-08 07:35:00-00:00 [facility] ([facility]) Pharmacy Prog.Note-Vancomycin REPORT#:[id number] REPORT STATUS: Signed DATE:02/08/22 TIME:734 PATIENT: HARLEEN MANZANO UNIT #: [id number] ROOM/BED: [place] [address] : 80 AGE: 41 SEX: F ATTEND: Tee Maya MD ADM AUTHOR: Jose Grace [facility] * ALL edits or amendments must be made on the el [employer]owa/computer document * Vancomycin Vancomycin Medication Therapy Goal: AUC 400-600 mcg*hr/mL Indication for treatment: LEFT FOOT OSTEOMYELITIS VS and I/O: Vital Signs Date Temp Pulse Resp B/P B/P Mean Pulse Ox FiO2 02/07-02/08 36.7-36.9 90-103 14-19 139-160/73-8 9 95-112.4 98-100 72 hours ending at 0700 02/08 1900 Intake Total Output Total Balance Patient 165.909 kg Weight Weight Stated/Rep orted Measuremen t Method 72 Hour I O Total 02/08 07 Intake Total Output Total Balance Labs: Laboratory Test : 02/07 Chemistry BUN (7 - 18 MG/DL) 25 H Creatinine (0.6 - 1.0 MG/DL) 1.2 H Hematology WBC (3.5 - 11.0 K/mm3) 11.7 H Microbiology: 02/08 0643 BLOOD: Blood Culture - RECD 02/08 0023 NASAL: MRSA Screen - ORD 02/07 2221 URINE: Urine Culture - RECD 02/07 2109 BLOOD: Blood Culture - CAN Cancelled: @SPECIMEN REJECTED DUE TO: ALICIA 02/07 2045 BLOOD: Blood Culture - RECD Treatment plan: consult, initiation of therapy Rationale: 41 y/o 165kg female presented to [facility] with left f oot osteomyelitis. Of note [...] to follow up! at 0736 RPT #: [id number] END OF REPORT 2022-02-08 01:07:00-00:00 [facility] ([facility]) Hospitalist History Physical REPORT#:[id number] REPORT STATUS: Signed DATE:02/08/22 TIME:106 PATIENT: HARLEEN MANZANO UNIT #: [id number] [address]BED: [address] : 80 AGE: 41 SEX: F ATTEND: Tee Maya MD ADM AUTHOR: Marilyn Sotelo APRNNP * ALL edits or amendments must be made on the el [employer]ronic/computer document * Marilyn Sotelo 02/08/22 0107: History of Present Illness HPI Chief complaint: [...] - GLUCOSE LANCETS 10/22/21 02/08/22 (GLUCOSE LANCETS) 8151 4106 Strength: 1 ITEM EACH DME - GLUCOSE METER 10/22/21 02/08/22 (GLUCOSE METER) 1347 0148 Strength: 1 ITEM EACH DME - GLUCOSE [...] cyanosis, no edema Musculoskeletal: normal inspection Neuro/PNEUMATIC PRESS HAND: alert, oriented X 3, normal speech, n [...] % (Auto) (20.5 - 51.1 %) 36.8 [place] % (Auto) (1.7 - 9.3 %) 5.7 Eos % (Auto) (0.0 - 6.0 %) 0.0 Baso % (Auto) (0.0 - 2.0 %) 0.6 Neut # (Auto) (1.8 - 7.6 K/mm3) 6.6 Lymph # (Auto) (0.6 - 3.2 K/mm3) 4.3 H [place] # (Auto) (0.3 - 1.1 K/mm3) 0.7 [...] - 7.0 pH UNITS) 6.0 Ur Specific [place] (1.005 - 1.030 SG) 1.010 Urine Protein [...] 2140 Report Impression - Status: SIGNED Entered: 02/07/2022 9604 IMPRESSION: 1. Open wound at 5th ray [...] the findings and plan as documented facundo Cruz * my personal evaluation is foot wound, antibx, cultures Electronically Signed by Marilyn Sotelo o n 02/08/22 at 0252 Electronically Signed by Marshal Maya MD on 1 at 1429 RPT #: [id number] END OF REPORT 2022-02-07 20:07:00-00:00 [facility] ([facility]) EMERGENCY PROVIDER REPORT REPORT#:[id number] REPORT STATUS: Signed DATE:02/07/22 TIME:2006 PATIENT: HARLEEN MANZANO UNIT #: [id number] ROOM/BED: [place] [address] : 80 AGE: 41 SEX: F PCP PHYS: No Primar y or Family Physician SERVICE AUTHOR: Abdi Prabhakar [employer] OPERATOR * ALL edits or amendments must be made on the el mPowa/computer document * Abdi Prabhakar 02/07/22 2007: HPI-Foot Prob/Inj General Initial Greet Date/Time 02/07/22 1903 Presentation Chief Complaint LEFT FOOT ODOR Hx Obtained From Patient Free Text HPI Notes Free Text HPI Notes 41-year-old morbidly obese female eli ts to the ED with a left [...] DME - GLUCOSE LANCETS (GLUCOSE LANCETS) EACH MT SC DAILY #400 Prov: 10/22/21 DME - [...] - 7.0 pH UNITS) 6.0 Ur Specific [place] (1.005 - 1.030 SG) 1.010 Urine Protein [...] % (Auto) (20.5 - 51.1 %) 36.8 [place] % (Auto) (1.7 - 9.3 %) 5.7 Eos % (Auto) (0.0 - 6.0 %) 0.0 Baso % (Auto) (0.0 - 2.0 %) 0.6 Neut # (Auto) (1.8 - 7.6 K/mm3) 6.6 Lymph # (Auto) (0.6 - 3.2 K/mm3) 4.3 H [place] # (Auto) (0.3 - 1.1 K/mm3) 0.7 [...] was initiated. While the nurses were dr mortensen the blood work, the patient refused any [...] 1,000 MG X1ED STA 02/07 2300 DC 10 Sodium Chloride 250 ML IV 02/07 2359 2336 Ceftriaxone Sodium 1,000 MG X1ED STA 02/07 2009 AC /30 Sterile Water 10 ML IV 02/08 0608 2307 Electrolytic, Caloric, And Noe Sig/Aubrey Start time Last Medication Dose Route Stop Time Status Admin Sodium Chloride 1,000 ML X1ED STA 02/08 2008 DC 10/30 IV 02/07 2108 212 Consultation Consultation Referral/Consult Name Hector Garcia MD Picker Packer Called Surgeon Requested Call Time 003 Requested Call Date 02/08/22 Call Returned Call returned Call Returned Time 0040 Call Returned Date 02/08/22 Picker Packer Will see patient, Agrees with eval, Agrees [...] )( Admission Accepts Yes )( Accepted Time 0020 )( Accepted Date 02/08/22 Call Information will see patient, agrees with eval, agrees with plan, ADMISSION ACCEPTED BY MARIYLN SOTELO VETERINARY X RAY OPERATOR FOR DR. MAYA. Ranjeet Paulino 02/08/22 0141: Patient Discharge Departure Supervising Physician Note MidLv Saw Pt Alone I have reviewed the PA/VETERINARY X RAY OPERATOR's note and plan of car e. I was available for consultation as needed at al l times during the patient's visit in the emergency department. I agree with the clinical impression , plan and disposition. Electronically Signed by Abdi Prabhakar NP on at 0041 Electronically Signed by Ranjeet Coronel MD on at 0141 RPT #: [id number] END OF REPORT 2021-12-07 20:23:00-00:00 [facility] nephrology progress note report#:[id number] report status: signed date:12/07/21 time:2022 patient: harleen manzano unit #: [id number] room/bed: [address]: 80 age: 41 sex: f attend: samanta castle md adm dt: 11/25/21 author: gabriela higginbotham md * all edits or amendments must be made on the [employer]/computer document * subjective hpi: events noted and [...] (zofran) 8 mg q8h prn prn iv (d cd) non-formulary medication (vancomycin trough bisi nder) 1 [...] to auscultation abdomen: soft extremities: no edema neuro/railroad police officer: alert psychiatry: normal mood results findings/data: laboratory [...] gabriela higginbotham md on 12/15/[address] [facility] #: [id number] end of report 2021-12-07 17:41:00-00:00 [facility] wound care progress note report#:[id number] report status: signed date:12/07/21 time:1740 patient: harleen manzano unit #: [id number] room/bed: [place] [address] : 80 age: 41 sex: f attend: samanta castle md adm dt: 11/25/21 author: jonathan hernandez md * all edits or amendments must be made on the el [employer]/computer document * subjective chief complaint: wound care hpi: i carried out the wound care at bedside unable to obtain: medical condition objective general vs: last documented: result date time pulse ox 100 12/07 1610 b/p 151/96 12/07 1610 b/p mean 114.5 12/07 1610 o2 delivery room air 12/07 161 temp 97.9 12/07 1610 pulse 83 12/07 [...] glargine (lantus/semglee) 15 unit q12h s ubq alteplase, recombinant (cathflo activase) 2 mg a [...] hernandez md on at 1745 rpt #: [id number] end of report 2021-12-07 15:45:00-00:00 [facility] hospitalist discharge summary report#:[id number] report status: signed date:12/07/21 time:1545 patient: harleen manzano unit #: [id number] room/bed: [place] [address] : 80 age: 41 sex: f attend: samanta castle md adm dt: 11/25/21 author: prakash larsen md * all edits or amendments must be made on the [employer]/computer document * general information date of admission: observation start date: date of admission: 11/25/21 discharge date: 12/07/21 discharge diagnosis: see hosp course hospital course: this is 40-year-old lady who came in with compla ins of fevers nausea and vomiting and left foot infection. patient stated that she was admitted and [facility] for 2 weeks and was discharged home on october 22 a t which point she was found to have left foot wound for which podiatry recommended outpatient follow -up and oral antibiotics. patient was getting home health and woun d care at home and she went to see her estate conservator on and w as told that she [...] disposition patient has no insurance coverage for [facility] nursing, patient will need to go home with iv antibiotics, discussed with case teo richard seen and examined discharge home with home health discharge time 34-minute consultants: infectious disease, nephrology, ort lili pt. condition on discharge: improved, stable free [...] disposition patient has no insurance coverage for [facility] nursing, patient will need to go [...] the bandage whi ch was not open railroad police officer alert oriented x3 moving all 4 extremities [...] jose garland md specialty: orthopaedic surgery phone: [phone] consult follow up timeframe: in 5 days electronically signed by prakash larsen md on at 1524 rpt #: [id number] end of report 2021-12-07 12:49:00-00:00 [facility] infectious dis. progress note report#:[id number] report status: signed date:12/07/21 time:1249 patient: harleen manzano unit #: [id number] room/bed: [place] [address] : 80 age: 41 sex: f attend: samanta castle md adm dt: 11/25/21 author: pro bustamante md * all edits or amendments must be made on the [employer]/computer document * subjective chief complaint: foot infection, left hpi: wbc remains normal, pt is on unasyn and linezoli d. review of systems constitutional: denies: fever. objective physical exam general appearance: alert, awake head/eyes: atraumatic, normocephalic cardiovascular: normal heart sounds respiratory: clear to auscultation, no distress abdomen: non-tender, soft, no distention neuro/railroad police officer: alert, oriented x 3 skin: no rash [...] on clin damycin as outpt after seeing estate conservator recs 1. ceftriaxone 2 gm iv q24h [...] md on 12/07/21 at 1251 rpt #: [id number] end of report 2021-12-07 12:41:00-00:00 [facility] hospitalist progress note report#:[id number] report status: signed date:12/07/21 time:1241 patient: harleen manzano unit #: [id number] room/bed: [facility] : 80 age: 41 sex: f attend: samanta castle md adm dt: 11/25/21 author: prakash larsen md * all edits or amendments must be made on the [employer]/computer document * subjective chief complaint: no complaints [...] refill, normal range of motion, no edema neuro/railroad police officer: alert, oriented x 3 diagnosis, assessment plan [...] disposition patient has no insurance coverage for [facility] nursing, patient will need to go home with iv antibiotics, discussed with case teo richard electronically signed by prakash larsen md on at 1241 rpt #: [id number] end of report 2021-12-06 12:42:00-00:00 [facility] ([facility] hospitalist progress note report#:[id number] report status: signed date:12/06/21 time:1242 patient: harleen manzano unit #: [id number] room/bed: [place] [address] : 80 age: 41 sex: f attend: samanta castle md adm dt: 11/25/21 author: prakash larsen md * all edits or amendments must be made on the el [employer]/computer document * subjective chief complaint: no complaints today review of systems respiratory: denies: sob. cardiovascular: denies: chest pain. gi: denies: nausea, vomiting. objective general vs/i o: vital signs: date time temp pulse resp b/p b/p pulse o2 o2 f low fio2 mean ox delivery rate 12/06 1055 36.4 87 18 143/85 104.1 99 room air 08/28 0800 37.5 90 18 152/93 112.7 100 [...] refill, normal range of motion, no edema neuro/railroad police officer: alert, oriented x 3 diagnosis, assessment plan [...] disposition patient has no insurance coverage for [facility] nursing, patient will need to go home with iv antibiotics, discussed with case teo richard electronically signed by prakash larsen md on at 1247 rpt #: [id number] end of report 2021-12-06 11:39:00-00:00 [facility] infectious dis. progress note report#:[id number] report status: signed date:12/06/21 time:1139 patient: harleen manzano unit #: [id number] room/bed: [place] [address] : 80 age: 41 sex: f attend: samanta castle md adm dt: 11/25/21 author: pro bustamante md * all edits or amendments must be made on the [employer]/computer document * subjective chief complaint: foot infection, left hpi: wbc remains normal, pt remains on unasyn and holland ezolid. review of systems constitutional: denies: fever. objective physical exam general appearance: alert, awake head/eyes: atraumatic, normocephalic cardiovascular: normal heart sounds respiratory: clear to auscultation, no distress abdomen: non-tender, soft, no distention extremities: no cyanosis neuro/railroad police officer: alert, oriented x 3 skin: no rash [...] on clin damycin as outpt after seeing estate conservator recs 1. ceftriaxone 2 gm iv q24h and daptomycin 1 gm iv q24h for 6 weeks. end datel . 2. oral metronidazole for 2 additional weeks. en d date: 12/21/21. 3. picc line 4. watch cbc diff and kidney function/cr closely 5. wound care 6. cm consulted. pt going home as her insurance does not cover snf services. electronically signed by pro bustamante md on 12/06/21 at 1201 rpt #: [id number] end of report 2021-12-05 18:26:00-00:00 [facility] wound care progress note report#:[id number] report status: signed date:12/05/21 time:1825 patient: harleen manzano unit #: [id number] room/bed: [place] [address] : 80 age: 41 sex: f attend: samanta castle md adm dt: 11/25/21 author: jonathan hernandez md * all edits or amendments must be made on the el [employer]/computer document * subjective chief complaint: wound care hpi: i carried out the wound care at bedside patient reports: yes: able to communicate, drainage from wound, f eeling better. no: odor. objective general vs: last documented: result date time pulse ox 100 12/05 1532 b/p 135/89 12/05 1532 b/p mean 104.6 12/05 1532 o2 delivery room air 12/05 153 temp 97.5 12/05 1532 pulse 80 12/05 1532 resp 17 12/05 1532 patient weight: weight (lb): 365 weight (oz): [...] dextrose/water (dextrose 50% w syringe) 50 ml a sdir prn iv (ckd) glucagon (glucagon) 1 mg [...] hernandez md on at 1827 rpt #: [id number] end of report 2021-12-05 10:58:00-00:00 [facility] hospitalist progress note report#:[id number] report status: signed date:12/05/21 time:1058 patient: harleen manzano unit #: [id number] room/bed: [place] [address] : 80 age: 41 sex: f attend: samanta castle md adm dt: 11/25/21 author: prakash larsen md * all edits or amendments must be made on the [employer]computer document * subjective chief complaint: no complaints [...] refill, normal range of motion, no edema neuro/railroad police officer: alert, oriented x 3 free text obj [...] the bandage whi ch was not open railroad police officer alert oriented x3 moving all 4 extremities [...] disposition patient has no insurance coverage for [facility] nursing, patient will need to go home with iv antibiotics, discussed with case teo richard electronically signed by prakash larsen md on at 1215 rpt #: [id number] end of report 2021-12-04 22:10:00-00:00 [facility] wound care progress note report#:[id number] report status: signed date:12/04/21 time:2209 patient: harleen manzano unit #: [id number] room/bed: [place] [address] : 80 age: 41 sex: f attend: [...] pulse ox 99 12/04 1940 b/p 155/89 08/26 1941 b/p mean 111.4 12/04 1940 temp 97.5 [...] (zyvox 600mg/ d5w 300ml) 300 ml q12h iv (dc) ampicillin sodium/sulbactam sodium (unasyn 3 gm) [...] escalate to daily dressing changes while in [facility] se lavage the wound cavity with saline [...] hernandez md on at 2213 rpt #: [id number] end of report 2021-12-04 11:40:00-00:00 [facility] hospitalist progress note report#:[id number] report status: signed date:12/04/21 time:1140 patient: harleen manzano unit #: [id number] room/bed: [address] : 80 age: 41 sex: f attend: samanta castle md adm dt: 11/25/21 author: yusuf castle md * all edits or amendments must be made on the [employer] document * subjective chief complaint: fevers nausea [...] 97.5 91 14 141/92 108.1 100 room air 24 hour i o [...] glargine (lantus/semglee) 22 unit q12h s ubq (unv) insulin human lispro (humalog) 4 unit [...] (zofran odt) 4 mg q4h prn prn p o tramadol hcl (ultram) 50 mg q6h prn [...] the bandage whi ch was not open railroad police officer alert oriented x3 moving all 4 extremities [...] castle md on at 1143 rpt #: [id number] end of report 2021-12-04 10:39:00-00:00 [facility] ([facility] nephrology progress note report#:[id number] report status: signed date:12/04/21 time:1039 patient: harleen manzano unit #: [id number] room/bed: [place] [address] : 80 age: 41 sex: f attend: samanta castle md adm dt: 11/25/21 author: jaylen harrison md * all edits or amendments must be made on the [employer]computer document * subjective hpi: no events, no [...] to auscultation abdomen: soft extremities: no edema neuro/railroad police officer: alert psychiatry: normal mood diagnosis, assessment plan free text a p: assessment/plan: jayleen on ckd-iiia likely due to atn. indices rowan r, continue to monitor volume status now ok, off ivf lytes, acid-base acceptable ok to dc home from renal standpoint electronically signed by jaylen harrison md on 12/04/21 at 1039 rpt #: [id number] end of report 2021-12-04 10:34:00-00:00 [facility] infectious dis. progress note report#:[id number] report status: signed date:12/04/21 time:1034 patient: harleen manzano unit #: [id number] room/bed: [place] [address] : 80 age: 41 sex: f attend: samanta castle md adm dt: 11/25/21 author: donna vieyra md * all edits or amendments must be made on the [employer] document * subjective chief complaint: foot infection, [...] 12/04 0715 o2 delivery room air 12/04 0715 temp 36.7 12/04 0715 pulse 91 12/04 0715 resp 18 12/04 0715 vital signs: date time temp pulse resp b/p b/p pulse o2 o2 flow fio2 mean ox delivery rate 12/04 0715 [...] extremities: no cyanosis musculoskeletal: no joint swelling neuro/railroad police officer: alert, oriented x 3 skin: no rash [...] on clin damycin as outpt after seeing estate conservator recs 1. unasyn (which covers e. coli [...] vieyra md on at 1520 rpt #: [id number] end of report 2021-12-04 09:54:00-00:00 [facility] orthopaedic progress note report#:[id number] report status: signed date:12/04/21 time:953 patient: harleen manzano unit #: [id number] room/bed: [place] [address] : 80 age: 41 sex: f attend: samanta castle md adm dt: 11/25/21 author: jose garland md * all edits or amendments must be made on the [employer] document * subjective hpi: 7 days s/p [...] by jose garland on 12/04/[address] [facility] #: [id number] end of report 2021-12-03 16:41:00-00:00 [facility] wound care progress note report#:[id number] report status: signed date:12/03/21 time:164 patient: harleen manzano unit #: [id number] room/bed: [place] [address] : 80 age: 41 sex: f attend: samanta castle md adm dt: 11/25/21 author: jonathan hernandez md * all edits or amendments must be made on the [employer] document * subjective chief complaint: wound care hpi: no acute events unable to obtain: medical condition objective general vs: last documented: result date time pulse ox 100 12/04 1102 b/p 132/84 12/04 1102 b/p mean 99.8 12/04 1102 o2 delivery room air 12/04 1102 temp 97.7 12/04 1102 pulse 82 12/04 [...] hernandez md on at 1535 rpt #: [id number] end of report 2021-12-03 12:04:00-00:00 [facility] hospitalist progress note report#:[id number] report status: signed date:12/03/21 time:1204 patient: harleen manzano unit #: [id number] room/bed: [place] [address] : 80 age: 41 sex: f attend: samanta castle md adm dt: 11/25/21 author: yusuf castle md * all edits or amendments must be made on the [employer] document * subjective chief complaint: fevers nausea [...] the bandage whi ch was not open railroad police officer alert oriented x3 moving all 4 extremities [...] castle md on at 1207 rpt #: [id number] end of report 2021-12-03 11:11:00-00:00 [facility] infectious dis. progress note report#:[id number] report status: signed date:12/03/21 time:1111 patient: harleen manzano unit #: [id number] room/bed: [facility] : 80 age: 41 sex: f attend: samanta castle md adm dt: 11/25/21 author: donna vieyra md * all edits or amendments must be made on the [employer] document * subjective chief complaint: foot infection, left hpi: c/o itching events noted review of systems constitutional: denies: fever. skin: denies: rash. objective general vs/i o: vital signs date temp pulse resp b/p b/p mean pulse ox fio2 12/02-12/03 36.5-36.8 80-90 14-18 103-152/69-93 80.3-113.0 97-99 last documented: result date time pulse ox 97 12/03 08 b/p 111/71 12/03 0819 b/p mean 84.3 12/03 0819 o2 delivery room air 12/03 818 temp 36.5 12/03 08 pulse 80 12/03 0819 resp 14 12/03 08 vital signs: date time temp pulse resp b/p b/p pulse o2 o2 flow fio2 mean ox delivery rate 12/03 08 36.5 80 14 111/71 84.3 97 room [...] dorsum with fluctuance musculoskeletal: no joint swelling neuro/railroad police officer: alert, oriented x 3 skin: no rash [...] started clindam ycin as outpt after seeing estate conservator recs 1. unasyn (which covers e. coli [...] by donna vieyra md on at 1528 rpt #: [id number] end of report 2021-12-02 22:23:00-00:00 [facility] wound care progress note report#:[id number] report status: signed date:12/02/21 time:2222 patient: harleen manzano unit #: [id number] room/bed: [place] [address] : 80 age: 41 sex: f attend: [...] secondary change dressing on tuesday, tuesday, s 2. obesity advised weight loss to help with pressure reduc tion. 3. type i diabetes mellitus with hyperosmolarit y, uncontrolled arterial dopplers negative for any pad 4. jayleen (acute kidney injury) consultants: infectious disease, nephrology, ort hopedics electronically signed by jonathan hernandez md on at 0274 rpt #: [id number] end of report 2021-12-02 12:01:00-00:00 [facility] infectious dis. progress note report#:[id number] report status: signed date:12/02/21 time:1201 patient: harleen manzano unit #: [id number] room/bed: [place] [address] : 80 age: 41 sex: f attend: samanta castle md adm dt: 11/25/21 author: pro bustamante md * all edits or amendments must be made on the [employer] document * subjective chief complaint: foot infection, left hpi: leukocytosis resolved. last blood cx neg to date . wound cx showed vre. objective physical exam head/eyes: atraumatic, normocephalic cardiovascular: normal heart sounds respiratory: clear to auscultation, no distress abdomen: non-tender, soft, no distention extremities: no cyanosis, le ft foot wound plantar, 5th toe, boggy area on dorsum with fluctuance neuro/railroad police officer: alert, oriented x 3 skin: no rash [...] started clindam ycin as outpt after seeing estate conservator recs 1. unasyn (which covers e. coli and anaerobes) 2. start daptomycin for vre 3. duration: around 6 weeks. end date: 01/05/22. 4. picc line ordered 5. watch cbc diff and kidney function 6. wound care electronically signed by pro bustamante md on 12/02/21 at 1431 rpt #: [id number] end of report 2021-12-02 10:23:00-00:00 [facility] hospitalist progress note report#:[id number] report status: signed date:12/02/21 time:1023 patient: harleen manzano unit #: [id number] room/bed: [place] [address] : 80 age: 41 sex: f attend: samanta castle md adm dt: 11/25/21 author: yusuf castle md * all edits or amendments must be made on the [employer] document * subjective chief complaint: fevers nausea [...] 110 mg/dl) 98 200 h 135 h 24 7 h calcium (8.5 - 10.1 mg/dl) 8.4 [...] the bandage whi ch was not open railroad police officer alert oriented x3 moving all 4 extremities [...] castle md on at 1027 rpt #: [id number] end of report 2021-12-02 09:48:00-00:00 [facility] nephrology progress note report#:[id number] report status: signed date:12/02/21 time:947 patient: harleen manzano unit #: [id number] room/bed: [place] [address] : 80 age: 41 sex: f attend: samanta castle md adm dt: 11/25/21 author: jaylen harrison md * all edits or amendments must be made on the [employer] document * subjective hpi: no events, no cp, no sob, no n/v/abd pain objective general vs/i o: vital signs: date time temp pulse resp b/p b/p pulse o2 o2 f low fio2 mean ox delivery rate 12/02 0836 36.8 87 14 131/85 100.4 100 room air 12/02 0750 36.9 85 16 107/68 81.3 [...] to auscultation abdomen: soft extremities: no edema neuro/railroad police officer: alert psychiatry: normal mood diagnosis, assessment plan free text a p: assessment/plan: jayleen on ckd-iiia likely due to atn. indices rowan r, continue to monitor volume status now ok, off ivf lytes, acid-base acceptable ok to dc home from renal standpoint electronically signed by jaylen harrison md on 12/02/21 at 0949 rpt #: [id number] end of report 2021-12-01 18:58:00-00:00 [facility] wound care progress note report#:[id number] report status: signed date:12/01/21 time:1857 patient: harleen manzano unit #: [id number] room/bed: [place] [address] : 80 age: 41 sex: f attend: samanta castle md adm dt: 11/25/21 author: jonathan hernandez md * all edits or amendments must be made on the [employer] document * subjective chief complaint: wound care [...] signed by jonathan hernandez md on at 1903 rpt #: [id number] end of report 2021-12-01 12:26:00-00:00 [facility] hospitalist progress note report#:[id number] report status: signed date:12/01/21 time:1226 patient: harleen manzano unit #: [id number] room/bed: [address] : 80 age: 41 sex: f [...] o2 flow fio2 mean ox delivery rate 12/01 1102 98.4 88 16 125/84 97.7 99 12/01 [...] 12/01 12/01 11/30 11/30 1104 0700 0515 6 1625 chemistry sodium (134 - 147 mmol/l) [...] report impression - status: signed entered: 11/30/2021 4534 impression: 1. left picc, as above. 2. [...] the bandage whi ch was not open railroad police officer alert oriented x3 moving all 4 extremities [...] castle md on at 1231 rpt #: [id number] end of report 2021-12-01 12:09:00-00:00 [facility] infectious dis. progress note report#:[id number] report status: signed date:12/01/21 time:1209 patient: harleen manzano unit #: [id number] room/bed: [place] [address] : 80 age: 41 sex: f attend: samanta castle md adm dt: 11/25/21 author: pro bustamante md * all edits or amendments must be made on the [employer] document * subjective chief complaint: foot infection, [...] 82 16 110/72 84.5 97 room air 08/23 0229 36.9 85 16 94/61 72.3 97 [...] toe, boggy area on dorsum with fluctuance neuro/railroad police officer: alert, oriented x 3 diagnosis, assessment plan [...] started clindam ycin as outpt after seeing estate conservator recs 1. switch ceftriaxone and clindamycin to unasyn (which covers e. coli and enterococcus) 2. duration: 6 weeks. end date: 01/05/22. 3. picc line ordered 4. watch cbc diff and kidney function 5. follow blood and wound cxs 6. wound care electronically signed by pro bustamante md on 12/01/21 at 1410 rpt #: [id number] end of report 2021-12-01 11:55:00-00:00 [facility] nephrology progress note report#:[id number] report status: signed date:12/01/21 time:1155 patient: harleen manzano unit #: [id number] room/bed: [address] : 80 age: 41 sex: f attend: samanta castle md adm dt: 11/25/21 author: jaylen harrison md * all edits or amendments must be made on the [employer] document * subjective hpi: overall better, no cp, no sob, no n/v/abd pain objective general vs/i o: vital signs: date time temp pulse resp b/p b/p pulse o2 o2 flow fio2 mean ox delivery rate 12/01 1103 [...] to auscultation abdomen: soft extremities: no edema neuro/railroad police officer: alert psychiatry: normal mood diagnosis, assessment plan free text a p: assessment/plan: jayleen on ckd-iiia likely due to atn. indices rowan r, continue to monitor volume status now ok, dcd ivf lytes, acid-base acceptable electronically signed by jaylen harrison md on 12/01/21 at 1156 rpt #: [id number] end of report 2021-12-01 00:44:00-00:00 [id number] [facility] [address] [place] [address] patient name: harleen manzano admit date: 2 account no: [id number] room no: [id number] age: 41 report type: operative report sex: f admitting physician: yusuf castle md attending physician: yusuf castle md operation date: 11/27/2021 operating surgeon: jose garland md assistant federal public defender: preoperative diagnoses: 1. left foot nonhealing ulce [...] history of uncontrolled diabetes, admitted to the [facility] with nonhealing ulcers of the foot on [...] olerated the entire operative procedures very well. timi, dr. garland, performed the entire operative procedure. dictated by: jose garland md wt: op:ladithya//malina dd: 12/01/2021 00:44:55 dt: 12/01/2021 01:35:59 conf#: [id number]/did#: [id number] authenticated and edited by jose keene i, md on 12/06/21 11:32:02 pm electronically signed by jose garland md on 12/06/21 at 1133 patient name: harleen manzano 3430 2021-11-30 16:20:00-00:00 [facility]) wound care progress note report#:[id number] report status: signed date:11/30/21 time:162 patient: harleen manzaon unit #: [id number] room/bed: [place] [address] : 80 age: 41 sex: f attend: [...] hernandez md on at 1621 rpt #: [id number] end of report 2021-11-30 11:40:00-00:[address] [facility]) hospitalist progress note report#:[id number] report status: signed date:11/30/21 time:1140 patient: harleen manzano unit #: [id number] room/bed: [place] [address] : 80 age: 41 sex: f attend: samanta castle md adm dt: 11/25/21 author: yusuf castle md * all edits or amendments must be made on the [employer] document * subjective chief complaint: fevers nausea vomiting comments: patient lying on the bed feels better denies any complaint. objective general vs/i o: vital signs: date time temp pulse resp b/p b/p pulse o2 o2 f low fio2 mean ox delivery rate 11/30 0716 98.1 80 18 105/70 81.9 96 room air 11/30 0505 98.2 86 18 130/75 93.2 98 room air 11/30 0007 98.6 81 16 135/79 97.6 98 room air 11/29 2016 98.4 90 16 110/73 84.9 98 room air 11/29 1806 98.1 101 14 132/84 99.9 97 room [...] nascet d erived psv criteria. impression by: mayelin - esau burns results: labs reviewed, current med profile rev' [...] the bandage whi ch was not open railroad police officer alert oriented x3 moving all 4 extremities [...] castle md on at 1142 rpt #: [id number] end of report 2021-11-30 11:38:00-00:00 [facility]) infectious dis. progress note report#:[id number] report status: signed date:11/30/21 time:1138 patient: harleen manzano unit #: [id number] room/bed: [place] [address] : 80 age: 41 sex: f attend: samanta castle md adm dt: 11/25/21 author: pro bustamante md * all edits or amendments must be made on the [employer] document * subjective chief complaint: foot infection, [...] toe, boggy area on dorsum with fluctuance neuro/railroad police officer: alert, oriented x 3 skin: no rash [...] started clindam ycin as outpt after seeing estate conservator recs continue ceftriaxone and clindamycin pt will need 6 weeks of ceftriaxone with probabl e po metronidazole picc line ordered watch cbc diff and kidney function follow blood and wound cxs wound care electronically signed by pro bustamante md on 11/30/21 at 1329 rpt #: [id number] end of report 2021-11-30 10:25:00-00:[address] [facility]) nephrology progress note report#:[id number] report status: signed date:11/30/21 time:1025 patient: harleen manzano unit #: [id number] room/bed: [place] [address] : 80 age: 41 sex: f attend: samanta castle md adm dt: 11/25/21 author: jaylen harrison md * all edits or amendments must be made on the [employer] document * subjective hpi: overall better, no [...] 16 135/79 97.6 98 room air 11/29 2017 36.9 90 16 110/73 84.9 98 room [...] to auscultation abdomen: soft extremities: no edema neuro/railroad police officer: alert psychiatry: normal mood diagnosis, assessment plan free text a p: assessment/plan: jayleen on ckd-iiia likely due to atn. indices stabi lizing, continue to monitor volume status now ok, dc ivf lytes, acid-base acceptable electronically signed by jaylen harrison md on 11/30/[address] [facility] #: [id number] end of report 2021-11-29 14:56:00-00:00 [facility] wound care progress note report#:[id number] report status: signed date:11/29/21 time:6 patient: harleen manzano unit #: [id number] room/bed: [place] [address] : 80 age: 41 sex: f attend: samanta castle md adm dt: 11/25/21 author: jonathan hernandez md * all edits or amendments must be made on the [employer] document * subjective chief complaint: wound care [...] 79 11/29 1112 resp 14 11/29 1112 patient weight: weight (lb): 365 weight (oz): [...] hernandez md on at 1458 rpt #: [id number] end of report 2021-11-29 11:41:00-00:00 [facility]) hospitalist progress note report#:[id number] report status: signed date:11/29/21 time:1141 patient: harleen manzano unit #: [id number] room/bed: [place] [address] : 80 age: 41 sex: f attend: samanta castle md adm dt: 11/25/21 author: yusuf castle md * all edits or amendments must be made on the [employer] document * subjective chief complaint: fevers nausea vomiting comments: patient lying on the bed feels better. denies an y complaints. objective general vs/i o: vital signs: date time temp pulse resp b/p b/p pulse o2 o2 f low fio2 mean ox delivery rate 11/29 1112 97.3 79 14 105/68 80.4 98 room air 11/29 08 97.5 80 14 114/75 88.1 99 room air 11/284 97.9 78 16 115/77 89.5 97 room [...] 11/29 11/29 11/29 11/28 11/28 1111 0642 0530 2049 1640 chemistry sodium (134 - 147 [...] radiology data: recent impressions: ultrasound - [facility] 11/28 1623 report impression - status: signed entered: 2021 1672 impression: 1. normal exam. impression by: mayelin - esau burns results: labs reviewed, current med profile rev' [...] the bandage whi ch was not open railroad police officer alert oriented x3 moving all 4 extremities [...] castle md on at 1147 rpt #: [id number] end of report 2021 16:03:00-00:00 [facility]) nephrology consultation note report#:[id number] report status: signed date:11/28/21 time:1603 patient: harleen manzano unit #: [id number] room/bed: [place] [address] : 80 age: 41 sex: f attend: samanta castle md adm dt: 11/25/21 author: gabriela higginbotham md * all edits or amendments must be made on the [employer] document * history of present illness requesting clinician: dr. castle reason for consult: elevated serum creatinine. fluid, electrolyte, and acid-base management. chief complaint: n/v fever pcp: pcp: no primary or family physician hpi: patient is a 41 years old female who was admitted to [facility] for sepsis and left foot infecti on [...] to auscultation abdomen: soft extremities: no edema neuro/railroad police officer: alert psychiatry: normal mood results findings/data: laboratory [...] md on 12/15/21 at 0731 rpt #: [id number] end of report 2021 10:59:00-00:00 [facility] ([facility] hospitalist progress note report#:[id number] report status: signed date:11/28/21 time:1059 patient: harleen manzano unit #: [id number] room/bed: [address] : 80 age: 41 sex: f attend: samanta castle md adm dt: 11/25/21 author: yusuf castle md * all edits or amendments must be made on the [employer] document * see addendum subjective chief complaint: [...] chloride (k-dur 20 meq) 40 meq once on e po (dc) lactated ringer's (lactated ringers) 1,000 [...] the bandage whi ch was not open railroad police officer alert oriented x3 moving all 4 extremities [...] castle md on at 1106 rpt #: [id number] end of report 2021 10:32:00-00:00 [facility] ([facility] infectious dis. progress note report#:[id number] report status: signed date:11/28/21 time:1032 patient: harleen manzano unit #: [id number] room/bed: [place] [address] : 80 age: 41 sex: f attend: samanta castle md adm dt: 11/25/21 author: pro bustamante md * all edits or amendments must be made on the [employer] document * subjective chief complaint: foot infection, left hpi: leukocytosis has decreased. e. coli found in blo od cx. objective physical exam head/eyes: atraumatic, normocephalic cardiovascular: normal heart sounds respiratory: clear to auscultation, no distress abdomen: non-tender, soft, no distention extremities: no cyanosis, le ft foot wound plantar, 5th toe, boggy area on dorsum with fluctuance neuro/railroad police officer: alert, oriented x 3 skin: no rash [...] started clindam ycin as outpt after seeing estate conservator recs continue ceftriaxone and clindamycin for now pt will need 6 weeks of iv antibiotics picc line once blood cxs are neg for at least 24 h case discussed with ortho watch cbc diff and kidney function follow blood and wound cxs wound care electronically signed by pro bustamante md on 11/28/21 at 1110 rpt #: [id number] end of report 2021-11-27 23:22:00-00:00 [facility] ([facility]) wound care consultation note report#:[id number] report status: signed date:11/27/21 time:2321 patient: harleen manzano unit #: [id number] room/bed: [place] [address] : 80 age: 41 sex: f attend: samanta castle md adm dt: 11/25/21 author: jonathan hernandez md * all edits or amendments must be made on the [employer] document * history of present illness requesting clinician: yusuf castle md reason for consult: wound care hpi: ms. curran is a 40 year old lady who came in with complains of fevers nausea and vomiting and left foot infection. patien t stated that she was admitted and [facility] for 2 weeks and wa [...] amoxicillin (amoxil) 500 mg po q8hr 33 2 strength: 500 mg cap 1306 furosemide (lasix) [...] tartrate 25 mg q12hr 11/25 2100 ac 11/29 (lopressor) po 12/25 2059 0850 hydralazine [...] chloride 10 meq .q20h 11/28 1745 ac 11/28 (kcl) iv 12/28 1744 1842 lactated ringer's 1,000 ml (lactated ringers) potassium chloride 20 meq once one 11/28 1745 d c 11/28 (k-dur 20 meq) po 11/28 174 1825 dextrose/water 25 ml asdir prn 11/26 [...] lispro 0 ac hs 11/25 2100 ac (humalog) subq 12/25 2058 182 allergies: coded allergies: sulfa (sulfonamide antibiotics) (mild, hives ) review of systems skin: reports: other (left foot wound). objective vs/i o: last documented: result date time pulse ox 98 11/29 1112 b/p 105/68 11/29 1112 b/p mean 80.4 11/29 1112 o2 delivery room air 11/29 1112 temp 97.3 11/29 1112 pulse 79 11/29 1112 resp 14 11/29 1112 24 hour i o ending at 0700: 11/29 0700 11/28 1900 intake total 1000.00 output total balance 1000.00 intake, iv 800.00 intake, oral 200 general appearance: obese head/eyes: atraumatic neck: no jvd cardiovascular: no rub respiratory: no distress abdomen: soft, non-tender extremities: no edema neuro/railroad police officer: alert, disoriented skin: dry wound assessment wound [...] hernandez md on at 1456 rpt #: [id number] end of report 2021-11-27 14:52:00-00:00 [facility]) hospitalist progress note report#:[id number] report status: signed date:11/27/21 time:1452 patient: harleen manzano unit #: [id number] room/bed: [place] [address] : 80 age: 40 sex: f attend: samanta castle md adm dt: 11/25/21 author: yusuf castle md * all edits or amendments must be made on the [employer] document * subjective chief complaint: fevers nausea [...] (dc) lactated ringer's (lactated ringers) 1,000 ml a sdir iv ondansetron hcl (zofran) 8 mg q8h prn prn po ondansetron hcl (zofran) 8 mg q8h prn prn iv ephedrine sulfate (ephedrine sulfate) 0 .stk-med one .route (dc) sodium chloride (sodium chloride 0.9%) 10 ml .st k-med one iv (dc) non-formulary medication (vancomycin trough [...] the bandage whi ch was not open railroad police officer alert oriented x3 moving all 4 extremities [...] by yusuf castle md on at 1455 rpt #: [id number] end of report 2021-11-27 12:29:00-00:00 [facility] infectious dis. progress note report#:[id number] report status: signed date:11/27/21 time:1229 patient: harleen manzano unit #: [id number] room/bed: [place] [address] : 80 age: 40 sex: f attend: samanta castle md adm dt: 11/25/21 author: pro bustamante md * all edits or amendments must be made on the [employer] document * subjective chief complaint: foot infection, [...] toe, boggy area on dorsum with fluctuance neuro/railroad police officer: alert, oriented x 3 diagnosis, assessment plan [...] started clindam ycin last week afetr seeing estate conservator recs stop vancomycin continue ceftriaxone cont clindamycin for now pt will need 6 weeks of iv antibiotics picc line once blood cxs are neg for at least 24 h case discussed with ortho watch cbc diff and kidney function follow blood and wound cxs wound care electronically signed by pro bustamante md on 11/27/21 at 1405 rpt #: [id number] end of report 2021-11-27 10:19:00-00:00 [facility]) pharmacy prog.note-vancomycin report#:[id number] report status: signed date:11/27/21 time:1019 patient: harleen manzano unit #: [id number] room/bed: [place] [address] : 80 age: 40 sex: f attend: samanta castle md adm dt: 11/25/21 author: abigail spain [facility] * all edits or amendments must be made on the [employer] document * vancomycin vancomycin medication therapy goal: [...] 920 toe: gram stain - recd 11/26 0416 nasal: mrsa screen - comp 11/25 162 blood: blood culture - res 11/25 162 blood: blood culture - res 11/25 161 blood: blood culture - res gram negative max 11/25 161 blood: blood culture - res treatment plan: change regimen regimen: trough 27.5 hold vanc dose today restart tomorrow at vanc 1.5g q24hr draw trough on 12/01 @ 0800 monitor renal function electronically signed by abigail spain [facility] on 2 at 1021 rpt #: [id number] end of report 2021-11-27 08:05:00-00:00 [facility] ([facility]) orthopaedic progress note report#:[id number] report status: signed date:11/27/21 time:804 patient: harleen manzano unit #: [id number] room/bed: [place] [address] : 80 age: 40 sex: f attend: samanta castle md adm dt: 11/25/21 author: jose garland * all edits or amendments must be made on the [employer] document * subjective hpi: follow up of mri exam. objective vs: last documented: result date time pulse ox 100 11/27 0713 b/p 122/60 11/27 07 o2 delivery room air 11/27 07 pulse 85 11/27 0713 resp 18 11/27 07 b/p mean 72.6 11/27 032 temp 98.4 11/27 0327 patient weight: weight (lb): 365 weight (oz): 12.27 weight (kg): 165.909 free text obj notes free text obj notes: physical exam vs/i o: vital signs date temp pulse resp b/p b/p mean pulse ox fio2 11/25 102.5 115 18 148/78 101 100 last documented: result date time pulse ox 100 11/25 1600 b/p 148/78 11/26 1599 b/p mean 101 11/26 1599 o2 delivery room air 11/26 1599 temp 102.5 11/26 1599 pulse 115 11/25 1600 resp 18 11/25 [...] mtp joint. 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 x3 moving all 4 extremities [...] garland on 11/27/21 at 0809 rpt #: [id number] end of report 2021-11-26 12:41:00-00:00 [facility] ([facility] infect disease consult note report#:[id number] report status: signed date:11/26/21 time:1241 patient: harleen manzano unit #: [id number] room/bed: [place] [address] : 80 age: 40 sex: f attend: samanta castle md adm dt: 11/25/21 author: donna vieyra md * all edits or amendments must be made on the [employer] document * history of present illness reason for consult: diabetic foot infection chief complaint: foot infection, left hpi: came with worsening left foot wound c/o n/v and fever had a recent complex hospitalization in [place] 10/09-10/20/21 dka/ atn/ covid 19/ diabetic foot [...] insulin glargine 20 unit subq bid 1000 2 (lantus) 1306 strength: 100 unit/ml vial insulin [...] 2100 ac 0 11/26 (lopressor) po 12/25 205 0812 hydralazine hcl 10 mg q6h prn prn 11/25 1900 ac 11/26 (apresoline) iv 12/25 1859 0422 central nervous system agents sig/aubrey start time last medication dose route stop time status admin hydrocodone bitart/ 1 tab q6h prn prn 11/25 190 0 ac acetaminophen po 12/05 1859 (norco 10/325) tramadol hcl 50 mg q6h [...] chloride 1,000 ml .q10h 11/25 1900 ac 0 11/26 (0.9% sodium iv 11/26 1459 0510 chloride) [...] dorsum with fluctuance musculoskeletal: no joint swelling neuro/railroad police officer: alert, oriented x 3 skin: no rash [...] started clindam ycin last week afetr seeing estate conservator recs cont vancomcyin per pharm dosing cautiously- [...] vieyra md on at 1455 rpt #: [id number] end of report 2021-11-26 12:09:00-00:[address] [facility]) hospitalist progress note report#:[id number] report status: signed date:11/26/21 time:1209 patient: harleen manzano unit #: [id number] room/bed: [place] [address] : 80 age: 40 sex: f attend: samanta castle md adm dt: 11/25/21 author: yusuf castle md * all edits or amendments must be made on the [employer] document * subjective chief complaint: fevers nausea [...] - 1.0 /100wbc%) 0.0 laboratory tests 11/25 1645 serology sars-cov-2 ag (rapid) (negative) negative radiology [...] m.d. radiology - xr chest 1 v 11/251 report impression - status: signed entered: 11/25/20218 impression: 1. no focal consolidation. no other [...] the bandage whi ch was not open railroad police officer alert oriented x3 moving all 4 extremities [...] castle md on at 1211 rpt #: [id number] end of report 2021-11-26 12:01:00-00:00 [facility]) orthopaedic consult note report#:[id number] report status: signed date:11/26/21 time:1201 patient: hraleen manzano unit #: [id number] room/bed: [place] [address] : 80 age: 40 sex: f attend: carlo castle ed, md adm dt: 11/25/21 author: jose garland * all edits or amendments must be made on the [employer] document * history of present illness free [...] home and she went to see her estate conservator on and w as told that she [...] mtp joint. 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 x3 moving all 4 extremities [...] garland on 11/26/21 at 1209 rpt #: [id number] end of report 2021-11-25 19:27:00-00:00 [facility] ([facility]) Pharmacy Prog.Note-Vancomycin REPORT#:[id number] REPORT STATUS: Signed DATE:11/25/21 TIME:1926 PATIENT: HARLEEN MANZANO UNIT #: [id number] ROOM/BED: [place] : 80 AGE: 40 SEX: F ATTEND: Samanta Castle MD ADM AUTHOR: Verna Hickman [facility] * ALL edits or amendments must be made on the [employer] document * Vancomycin Vancomycin Medication Therapy Goal: [...] 1620 BLOOD: Blood Culture - RECD 11/25 161 BLOOD: Blood Culture - RECD Treatment plan: consult, initiation of therapy Regimen: BMI 51 VANC 1 G X1 IN ER VANC 1.25 G Q12H TROUGH 11/27 08 Electronically Signed by Verna Hickman [facility] on 0 11/25/21 at 1930 RPT #: [id number] END OF REPORT 2021-11-25 18:53:00-00:00 [facility] ([facility]) Hospitalist History Physical REPORT#:[id number] REPORT STATUS: Signed DATE:11/25/21 TIME:1852 PATIENT: HARLEEN MANZANO UNIT #: [id number] ROOM/BED: [place] : 80 AGE: 40 SEX: F ATTEND: Samanta Castle MD ADM AUTHOR: Yusuf Castle MD * ALL edits or amendments must be made on the [employer] document * History of Present Illness HPI [...] home and she went to see her estate conservator on and w as told that she [...] (Auto) (20.5 - 51.1 %) 15.9 L Sumter % (Auto) (1.7 - 9.3 %) 4.9 Eos % (Auto) (0.0 - 6.0 %) 0.0 Baso % (Auto) (0.0 - 2.0 %) 0.2 Neut # (Auto) (1.8 - 7.6 K/mm3) 9.7 H Lymph # (Auto) (0.6 - 3.2 K/mm3) 2.0 Sumter # (Auto) (0.3 - 1.1 K/mm3) 0.6 [...] potentially a gas gangrene. Impression By: [email or web address] - Christine Marshall M.D. Results: labs reviewed, x-ray personally [...] wound no discharge nontender dusky colored PNEUMATIC PRESS HAND alert oriented x3 moving all 4 extremities [...] by Yusuf Castle MD on at 1902 [facility] #: [id number] END OF REPORT 2021-11-25 17:03:00-00:00 [id number] [facility] [address] [place] [address] patient name: harleen manzano admit date: 2 account no: [id number] room no: [id number] age: 41 report type: eelectrocardiogram sex: f admitting physician: yusuf castle md attending physician: yusuf castle md order: [id number] test reason : cp test date/time stamp: [...] ecgs available confirmed by md eloisa, ramon ([id number]) on 11:13:24 am referred by: self referred confirmed by:ramon medel md electronically signed by ramon amin md on 11/29/21 at 1113 patient name: harleen manzano 3430 2021-11-25 16:12:00-00:00 [facility]) emergency provider report report#:[id number] report status: signed date:11/25/21 time:1612 patient: harleen manzano unit #: [id number] room/bed: [place] [address] : 80 age: 40 sex: f pcp phys: no primar y or family physician service dt: 11/25/21 author: michael wu do * all edits or amendments must be made on the [employer] document * hpi-general illness general confirmed patient yes initial greet date/time 11/25/21 1558 presentation chief complaint __ (foot infection) hx [...] text hpi notes states she saw her estate conservator last week and was instructed to come [...] dme - glucose lancets (glucose lancets) each mi sc daily #400 prov: 10/22/21 dme - glucose meter (glucose meter) each misc as dir dme - glucose meter (glucose meter) each misc a sdir #1 prov: 10/22/21 dme - glucose strips (glucose strips) each misc daily dme - glucose strips (glucose strips) [...] b/p 148/78 11/25 1600 b/p mean 101 / 1600 o2 delivery room air 11/25 1600 temp 102.5 11/25 1600 pulse 115 11/25 1600 resp 18 08/17 1600 review of vital signs reviewed physical [...] date/time procedure - status source growth 11/25 162 blood culture - res blood 11/25 162 blood culture - res blood 11/25 161 blood culture - res blood gram negative max 11/25 161 blood culture - res blood recent impressions: [...] po 11/25 1611 1724 electrolytic, caloric, and noe sig/aubrey start time [...] consultation consultation referral/consult name jose garland md client service consultant called orthopedic requested call time 1814 requested call date 11/25/21 call returned call returned call returned time 1814 call returned date 11/25/21 client service consultant will see patient patient discharge departure [...] (minutes): 35 services performed patient management by maria isabel rojas spent at bedside, reviewing test results, reviewing imaging, discussing henrietta ent care, documentation in record, time with fam/surrogate separately billable procedures excluded from maria isabel mcclure. electronically signed by michael wu do on at [address] [facility] #: [id number] end of report 2021-11-22 22:37:00-00:00 [id number] [address] PATIENT NAME: HARLEEN MANZANO ADMIT DATE: 2 ACCOUNT NO: [id number] ROOM NO: AGE: 40 REPORT TYPE: DISCHARGE [...] 14. Endocrinology was following for her diabetes. Sh e was also seen to have JAYLEEN, which [...] patient. Dictated By: Delisa Shepherd MD WT: DS:FRANCIS/SUJIT/MALINA Conf#: [id number]/DID#: [id number] Authenticated and Edited by Delisa Shepherd MD On 11/23/21 7:15:29 AM at 0717 PATIENT NAME: HARLEEN MANZANO 2173 2021-10-22 19:49:00-00:00 [facility] Infectious Dis. Progress Note REPORT#:[id number] REPORT STATUS: Signed DATE:10/22/21 TIME: 1948 PATIENT: HARLEEN MANZANO UNIT #: [id number] ROOM/BED: [place] [address] : 80 AGE: 40 SEX: F ATTEND: Shoaib Shepherd MD ADM AUTHOR: Pradip Akhtar MD, MD * ALL edits or amendments must be made on the [employer]/computer document * Subjective Chief complaint: DKA HPI: [...] 21 10/15 0920 O2 Flow Rate 15.0 / 1600 Vital Signs: Date Time Temp Pulse [...] by Pradip Akhtar MD, MD on at [facility] RPT #:[id number] END OF REPORT 2021-10-22 18:32:00-00:00 [facility] ([facility] Podiatry Progress Note REPORT#:[id number] REPORT STATUS: Signed DATE:10/22/21 TIME: 1831 PATIENT: HARLEEN MANZANO UNIT #: [id number] ROOM/BED: [place] [address] : 80 AGE: 40 SEX: F ATTEND: Shoaib Shepherd MD ADM AUTHOR: Kristin Alvarenga DPM * ALL edits or amendments must be made on the el [employer]/computer document * Subjective Chief complaint: left and [...] Kristin Alvarenga DPM on at 1509 RPT #:[id number] END OF REPORT 2021-10-22 16:13[facility]00[facility] Progress Note REPORT#:[id number] REPORT STATUS: Signed DATE:10/22/21 TIME: 1613 PATIENT: HARLEEN MANZANO UNIT #: [id number] ROOM/BED: [facility]-1 : 80 AGE: 40 SEX: F ATTEND: Shoaib Shepherd MD ADM AUTHOR: Timoteo Walker MD * ALL edits or amendments must be made on the el [employer]/computer document * Subjective Comments: Data and notes, [...] Genitourinary: no flank pain Extremities: swelling Neuro/PNEUMATIC PRESS HAND: alert, oriented X 3 Skin: intact Psychiatry: no hallucinations Results Results: labs reviewed, vital signs reviewed, vi viv signs stable Diagnosis, Assessment Plan Free Text A P: JAYLEEN, nonoliguric stable azotemia CKD 4 Fluid overload +Diuresis/po Hyperkalemia med rx and diet DKA Resolved glycemic rx underway Respiratory failure Improved COVID+ Bacteremia, alpha Strep Left foot wound culture with E.coli and Enteroco ccus JYALEEN likely 2/2 ATN Plan: Outpt renal clinic in 2 weeks/labs Lowered K+ diet, dw pt Consultants: endocrinology, infectious disease, nephrology Plan discussed with: patient, admitting physicia n, nurse Electronically Signed by Timoteo Walker MD on 10/09 07/31 at 1616 RPT #:[id number] END OF REPORT 2021-10-22 08:40:00-00:00 [facility] Rehab Progress Note REPORT#:[id number] REPORT STATUS: Signed DATE:10/22/21 TIME: 0840 PATIENT: HARLEEN MANZANO UNIT #: [id number] ROOM/BED: [place] [address] : 80 AGE: 40 SEX: F ATTEND: Shoaib Shepherd MD ADM AUTHOR: Ema Hernandez PA-C * ALL edits or amendments must be made on the [employer]/computer document * Subjective Chief complaint: Pt seen and examined. States feeling much more c onfident today with getting around. Objective General VS: Vital Signs: Date Time Temp Pulse Resp B/P B/P Pulse O2 O2 Flow FiO2 Mean Ox Delivery Rate 10/22 0504 [...] ACTIVITIES PERFORMED: Bed Mobility - Rolling: Modified Maury Bed Mobility - Supine to Sit: Modified Independ ence Bed Mobility - Sit to Supine: Modified [place] daniel Scooting: Modified Maury Pivot Transfer: Modified Maury Trunk control: Modified Maury Sit to Stand: Modified Maury Static Sitting: Modified Maury Dynamic Sitting: Modified Maury Static Standing: Modified Maury Dynamic Standing: Modified Maury Functional Ambulation: Supervision or Set-up Distance in Feet: 15 Functional Exercises: BED MOBILITY SITTING EOB SIT TO STANDS GAIT STEP TAPS ATTEMPTED STEP UPS Durable Medical Equipment Currently Utilized: Hospital Bed Walker, Rolling Effects of Treatment: Ringle of care decreased Post [place] Precautions: IN BED CALL BUTTON WITHIN REACH NURSING NOTIFIED Functional Mob.Cmt: PT AGREEABLE TO LAVERNE Stauffer, CASE MANAGMENT STATED PT INPATIENT REHAB IS DENIED, HOWEVER THE CONCERN IS STAIRS. PT TX SUPINE TO SIT INDEPENDENTLY R SIDE OF BED, STATES SHE CANNOT PERFORM TASK OT L SIDE OF BED. SIT TO SUPINE PT STANDS UP, TURNS 180, AND CRAWLS IN BED. STATED SHE CANNOT PERFOM TASK ANY OTHER WAY. PT WALKED AROUND BED, LIFTED WALKER OVER HEAD TO AMBULATE TO L SIDE OF BED. COMPLETED 5 X STEP TAPS ON 6" STEP TO PREPARE FOR STAIR TRAINING. 2X ATTEMTPED NOMI P UPS ON STAIR TO PREPARE FOR [...] HER SISTER IS COMING INTO TOWN NEXT WEEK TO ASSIST NEEDED. P.T. CONTINUES TO RECOMMEND INPATIENT REHAB. WILL CONTINUE GAIT TRAINING, STAIR TRAINING, SAFETY EDUCATION WHILE IN HOSPITAL. NURSE NOTIFIEID. ATTEMPTED TO FIND LEASING CONSULTANT HOWEVER PER NURSE, LEASING CONSULTANT IS GONE FOR THE DAY. PT charges: FT/Therap. Activity 73288 If this is the patient's last treatment, this e ntry serves as the discharge summary: Y Start time: 1516 Stop time: 1546 Treatment Time : ( minutes) 0:30 Completed by: Rosanna Thomas . Physical Therapy: Plan of Care Short Term Goals TARGET DATE GOAL MET Physician Relations Specialist Goals TARGET DATE GOAL MET . PRIOR [...] after session Document OT charges: SELF/HOME MGT/ADL [id number] Document Pain/Education: No Review OT Plan of Care: Yes If this is the patient's last treatment, this e ntry serves as the discharge summary: Y Start Time: 1023 Stop Time: 1035 Treatment time ( minutes): 0:12 Completed by: Sin Bess - GROOMING/HYGIENE: Washing hands/face: Modified Maury Oral Hygiene: Modified Maury Combing/brushing hair: Not Tested Applying/removing make-up: Not Tested Shaving face: Not Applicable ----- Toileting: Modified Maury Safety awareness demonstrated during completion of task: Yes Requires set up of supplies: No ----- ----- ----- ----- . Occupational Therapy: Plan of Care OT Problem List: 1 Impaired Strength/ROM 5 Impaired Functional Mobil 3 Impaired Balance 7 Impaired ADL HALF-WAY GOALS TARGET DATE GOAL MET 1: Complete toileting Mod I in bathroom : 0811/30 LT GL1: Y 2: Complete full body [...] of motion normal, strength testing normal Neuro/PNEUMATIC PRESS HAND: alert, oriented X 3, no motor deficit [...] by Ema Hernandez PA-C on at 1823 RPT #:[id number] END OF REPORT 2021-10-21 20:05:00-00:00 [facility]L [facility] Hospitalist Progress Note REPORT#:[id number] REPORT STATUS: Signed DATE:10/21/21 TIME: 2004 PATIENT: HARLEEN MANZANO UNIT #: [id number] ROOM/BED: [place] [address] : 80 AGE: 40 SEX: F ATTEND: Laura Trinh ADM AUTHOR: Delisa Shepherd MD * ALL edits or amendments must be made on the [employer]/computer document * Subjective Chief complaint: Patient too high [facility]. Patient got denied. Patient working with PT/OT. No acute complaints. Objective General VS/I O: Vital Signs: Date Time Temp Pulse Resp B/P B/P Pulse O2 O2 F low FiO2 Mean Ox Delivery Rate 10/21 1902 [...] PO Insulin Glargine (Lantus/Semglee) 20 UNIT BID S UBQ Insulin Human Lispro (HUMALOG) 5 UNIT AC [...] no distention Extremities: b/l feet wound Neuro/PNEUMATIC PRESS HAND: alert, oriented X 3, CNII-XII intact, normal [...] (Auto) (14.0 - 32.0 %) 38.8 H Sumter % (Auto) (4.8 - 9.0 %) 9.0 Eos % (Auto) (0.3 - 3.7 %) 0.2 L Baso % (Auto) (0.0 - 2.0 %) 0.7 Neut # (Auto) (2.0 - 7.6 x10 3/uL) 6.58 Lymph # (Auto) (1.0 - 3.8 x10 3/uL) 5.00 H Sumter # (Auto) (0.1 - 0.8 x10 3/uL) [...] Delisa Shepherd MD on 0 10/21/21 at 2006 RPT #:[id number] END OF REPORT 2021-10-21 19:47:00-00:00 [facility]) Podiatry Progress Note REPORT#:[id number] REPORT STATUS: Signed DATE:10/21/21 TIME: 1946 PATIENT: HARLEEN MANZANO UNIT #: [id number] ROOM/BED: [place] [address] : 80 AGE: 40 SEX: F ATTEND: Shoaib Shepherd MD ADM AUTHOR: Kristin Alvarenga DPM * ALL edits or amendments must be made on the [employer] document * Subjective Chief complaint: left and [...] (Auto) (14.0 - 32.0 %) 38.8 H Sumter % (Auto) (4.8 - 9.0 %) 9.0 Eos % (Auto) (0.3 - 3.7 %) 0.2 L Baso % (Auto) (0.0 - 2.0 %) 0.7 Neut # (Auto) (2.0 - 7.6 x10 3/uL) 6.58 Lymph # (Auto) (1.0 - 3.8 x10 3/uL) 5.00 H Sumter # (Auto) (0.1 - 0.8 x10 3/uL) [...] Kristin Alvarenga DPM on at 1509 RPT #:[id number] END OF REPORT 2021-10-21 15:37:00-00:00 [facility] Infectious Dis. Progress Note REPORT#:[id number] REPORT STATUS: Signed DATE:10/21/21 TIME: 1537 PATIENT: HARLEEN MANZANO UNIT #: [id number] ROOM[address]BED: [address] : 80 AGE: 40 SEX: F ATTEND: Laura Trinh ADM AUTHOR: Pradip Akhtar MD, MD * ALL edits or amendments must be made on the [employer] document * Subjective Chief complaint: DKA HPI: [...] 1123 Temp 98.2 10/21 1123 Pulse 92 / 1123 Resp 18 10/21 1123 FiO2 21 [...] (Auto) (14.0 - 32.0 %) 38.8 H Sumter % (Auto) (4.8 - 9.0 %) 9.0 Eos % (Auto) (0.3 - 3.7 %) 0.2 L Baso % (Auto) (0.0 - 2.0 %) 0.7 Neut # (Auto) (2.0 - 7.6 x10 3/uL) 6.58 Lymph # (Auto) (1.0 - 3.8 x10 3/uL) 5.00 H Sumter # (Auto) (0.1 - 0.8 x10 3/uL) [...] Pradip Akhtar MD, MD on at 1539 RPT #:[id number] END OF REPORT 2021-10-21 15:31:00-00:00 [facility] ([facility]) Nephrology Progress Note REPORT#:[id number] REPORT STATUS: Signed DATE:10/21/21 TIME: 1531 PATIENT: HARLEEN MANZANO UNIT #: [id number] ROOM/BED: [place] [address] : 80 AGE: 40 SEX: F ATTEND: Laura Trinh MD ADM AUTHOR: Timoteo Walker MD * ALL edits or amendments must be made on the [employer]computer document * Subjective Comments: Data and notes, [...] obese Genitourinary: urinary catheter Extremities: swelling Neuro/PNEUMATIC PRESS HAND: alert, oriented X 3 Psychiatry: no hallucinations [...] MD on 10/09 06/30 at 1532 RPT #:[id number] END OF REPORT 2021-10-21 13:30:00-00:00 HC[facility]L [facility] Endocrinology Progress Note REPORT#:[id number] REPORT STATUS: Signed DATE:10/21/21 TIME: 1330 PATIENT: HARLEEN MANZANO UNIT #: [id number] ROOM/BED: [place] [address] : 80 AGE: 40 SEX: F ATTEND: Shoaib Shepherd MD ADM AUTHOR: Gino Hernandez * ALL edits or amendments must be made on the [employer] document * Subjective Chief complaint: f/u DM [...] indicated Extremities: warm Musculoskeletal: normal inspection Neuro/PNEUMATIC PRESS HAND: alert, oriented X 3, normal speech Skin: [...] (Auto) (14.0 - 32.0 %) 38.8 H Sumter % (Auto) (4.8 - 9.0 %) 9.0 Eos % (Auto) (0.3 - 3.7 %) 0.2 L Baso % (Auto) (0.0 - 2.0 %) 0.7 Neut # (Auto) (2.0 - 7.6 x10 3/uL) 6.58 Lymph # (Auto) (1.0 - 3.8 x10 3/uL) 5.00 H Sumter # (Auto) (0.1 - 0.8 x10 3/uL) [...] (Auto) (14.0 - 32.0 %) 38.8 H Sumter % (Auto) (4.8 - 9.0 %) 9.0 Eos % (Auto) (0.3 - 3.7 %) 0.2 L Baso % (Auto) (0.0 - 2.0 %) 0.7 Neut # (Auto) (2.0 - 7.6 x10 3/uL) 6.58 Lymph # (Auto) (1.0 - 3.8 x10 3/uL) 5.00 H Sumter # (Auto) (0.1 - 0.8 x10 3/uL) [...] Darvin Mooney MD on 0 10/23/21 at 1881 RPT #:[id number] END OF REPORT 2021-10-21 13:20:00-00:00 [id number] [place] [address] PATIENT NAME: HARLEEN MANZANO ADMIT DATE: 2 ACCOUNT NO: [id number] ROOM NO: G.C141 AGE: 40 REPORT TYPE: 360 - QUERY RESPONSE DOCUMENT SEX: F ADMITTING PHYSICIAN:Laura Trinh MD ATTENDING PHYSICIAN:Laura Trinh MD Provider Query QUERY TEXT: Stage CKD 360MD Query related questions should be directed to: Jennifer montenegro [facility] Coding Query Hotline Based on your clinical [...] 10/13 BUN-49H CREATININE-3.9H GFR-15.4L NS 1,000 mL: MAR 10/09 Options provided: -- Stage 1 -- Stage [...] PATIENT NAME: HARLEEN MANZANO [id number] 2021-10-21 06:52:00-00:00 [facility] ([facility]) Acute Rehab Consult REPORT#:[id number] REPORT STATUS: Signed DATE:10/21/21 TIME: 651 PATIENT: HARLEEN MANZANO UNIT #: [id number] ROOM/BED: [place] [address] : 80 AGE: 40 SEX: F ATTEND: Laura Trinh ADM AUTHOR: Ema Hernandez PA-C * ALL edits or amendments must be made on the [employer]/computer document * History of Present Illness HPI [...] and was intubated with central line placed. Sh evy was admitted secondary to DKA and found to have a COVID-positive test and acut e respiratory failure with acute kidney injury. She was aggressively treated with IV hydration and p laced on a insulin drip. She was noted to have a left and right foot wound li brennen from poorly controlled diabetes. ID, Endocrinology and nephrology were consulted. Renal ultrasound was performed on 10 11 showing no acute sonographi c findings. CT [...] Hospital Bed Walker, Rolling Effects of Treatment: Ringle of care decreased Post [place] Precautions: In Bed, rails Up Bed Alarm Sheet Rocker Light in Reach Nursing Notified Pulse OX [...] BACK INTO BED. PT charges: FT/Therap. Activity 21822 If this is the patient's last treatment, [...] to participate Document OT charges: SELF/HOME MGT/ADL [id number] Document Pain/Education: No Review OT Plan of [...] Shaving face: Not Applicable ----- Toileting: Modified Maury Safety awareness demonstrated during completion of task: [...] 10/18 2199 AC 10/21 (AMOXIL) PO 11/01 1562 9198 Fluconazole/Sodium 100 ML DAILY 10/13 899 DC 0 10/20 Chloride IV 10/23 0859 [...] Status Admin Furosemide 40 MG DAILY 10/21 09 AC (LASIX) PO 11/20 0859 Furosemide 20 MG BID 9A 5P 10/15 09 DC 10/20 (LASIX 20MG INJ) IV 11/14 0859 0852 Dextrose/Water 50 ML ASDIR PRN 10/08 213 CKD (DEXTROSE 50% W IV 11/07 2128 [...] 2100 AC 10/09 2 (Lantus/Semglee) SUBQ 11/19 2058 222 Insulin Human Lispro 5 UNIT AC 10/20 [...] Result Date Time Pulse Ox 96 10/21 0335 B/P 131/80 07/13 0335 B/P Mean 96.7 10/21 334 O2 Delivery Room air 10/21 334 Temp 98.2 10/21 334 Pulse 88 10/21 334 Resp 17 10/21 334 FiO2 21 10/15 0920 O2 Flow Rate [...] of motion normal, strength testing normal Neuro/PNEUMATIC PRESS HAND: alert, oriented X 3, no motor deficit [...] Ema Hernandez PA-C on at 1441 RPT #:[id number] END OF REPORT 2021-10-20 23:40:00-00:00 [facility] ([facility]) Hospitalist Progress Note REPORT#:[id number] REPORT STATUS: Signed DATE:10/20/21 TIME: 2339 PATIENT: HARLEEN MANZANO UNIT #: [id number] ROOM/BED: [facility]-1 : 80 AGE: 40 SEX: F ATTEND: Laura Trinh MD ADM AUTHOR: Delisa Shepherd MD * ALL edits or amendments must be made on the [employer]computer document * Subjective Chief complaint: per PT [...] no distention Extremities: b/l feet wound Neuro/PNEUMATIC PRESS HAND: alert, oriented X 3, CNII-XII intact, normal [...] % (Auto) (14.0 - 32.0 %) 30.5 Sumter % (Auto) (4.8 - 9.0 %) 8.7 Eos % (Auto) (0.3 - 3.7 %) 0.1 L Baso % (Auto) (0.0 - 2.0 %) 0.6 Neut # (Auto) (2.0 - 7.6 x10 3/uL) 8.82 H Lymph # (Auto) (1.0 - 3.8 x10 3/uL) 4.52 H Sumter # (Auto) (0.1 - 0.8 x10 3/uL) [...] Shepherd MD on 0 10/21/21 at 0924 RPT #:[id number] END OF REPORT 2021-10-20 15:55:00-00:00 HC[facility]L [facility] Nephrology Progress Note REPORT#:[id number] REPORT STATUS: Signed DATE:10/20/21 TIME: 1555 PATIENT: HARLEEN MANZANO UNIT #: [id number] ROOM/BED: [place] [address] : 80 AGE: 40 SEX: F ATTEND: Laura Trinh ADM AUTHOR: Timoteo Walker MD * ALL edits or amendments must be made on the el [employer]computer document * Subjective Comments: Data and notes, [...] obese Genitourinary: urinary catheter Extremities: swelling Neuro/PNEUMATIC PRESS HAND: alert, oriented X 3 Psychiatry: no hallucinations [...] Signed by Timoteo Walker MD on 10/09 06/02 at 1557 RPT #:[id number] END OF REPORT 2021-10-20 14:58:00-00:00 HCACL [facility] ([facility]) Infectious Dis. Progress Note REPORT#:[id number] REPORT STATUS: Signed DATE:10/20/21 TIME: 1458 PATIENT: HARLEEN MANZANO UNIT #: [id number] ROOM/BED: [place] [address] : 80 AGE: 40 SEX: F ATTEND: Laura Trinh ADM AUTHOR: Pradip Akhtar MD, MD * ALL edits or amendments must be made on the el [employer]/computer document * Subjective Chief complaint: DKA HPI: [...] Pulse Ox 98 10/20 1158 B/P 100/70 07/ 1158 B/P Mean 80.1 / 1158 O2 Delivery Room air 10/20 1158 Temp 98.2 / 1158 Pulse 103 / 1158 Resp 18 / 1158 FiO2 21 / 0920 O2 Flow Rate [...] 0026 99.0 97 18 142/79 100.4 97 / 1927 98.2 98 18 138/79 98.9 98 [...] Extremities: no clubbing Results Findings/Data: Laboratory Tests 10/20 10/20 10/20 10/20 10/19 1156 0753 0636 6830 2127 Chemistry Sodium (134 - 147 mEq/L) [...] % (Auto) (14.0 - 32.0 %) 30.5 Sumter % (Auto) (4.8 - 9.0 %) 8.7 Eos % (Auto) (0.3 - 3.7 %) 0.1 L Baso % (Auto) (0.0 - 2.0 %) 0.6 Neut # (Auto) (2.0 - 7.6 x10 3/uL) 8.82 H Lymph # (Auto) (1.0 - 3.8 x10 3/uL) 4.52 H Sumter # (Auto) (0.1 - 0.8 x10 3/uL) [...] Akhtar MD, MD on at 1459 RPT #:[id number] END OF REPORT 2021-10-20 14:21:00-00:00 [facility]ACL [facility] ([facility]) Endocrinology Progress Note REPORT#:[id number] REPORT STATUS: Signed DATE:10/20/21 TIME: 1420 PATIENT: HARLEEN MANZANO UNIT #: [id number] ROOM/BED: [place] [address] : 80 AGE: 40 SEX: F ATTEND: [...] indicated Extremities: warm Musculoskeletal: normal inspection Neuro/PNEUMATIC PRESS HAND: alert, oriented X 3, normal speech Skin: [...] % (Auto) (14.0 - 32.0 %) 30.5 Sumter % (Auto) (4.8 - 9.0 %) 8.7 Eos % (Auto) (0.3 - 3.7 %) 0.1 L Baso % (Auto) (0.0 - 2.0 %) 0.6 Neut # (Auto) (2.0 - 7.6 x10 3/uL) 8.82 H Lymph # (Auto) (1.0 - 3.8 x10 3/uL) 4.52 H Sumter # (Auto) (0.1 - 0.8 x10 3/uL) [...] Tests: 10/20 10/20 10/20 10/20 10/19 1156 2663 0636 6918 3777 Chemistry Sodium (134 - 147 mEq/L) 137 [...] % (Auto) (14.0 - 32.0 %) 30.5 Sumter % (Auto) (4.8 - 9.0 %) 8.7 Eos % (Auto) (0.3 - 3.7 %) 0.1 L Baso % (Auto) (0.0 - 2.0 %) 0.6 Neut # (Auto) (2.0 - 7.6 x10 3/uL) 8.82 H Lymph # (Auto) (1.0 - 3.8 x10 3/uL) 4.52 H Sumter # (Auto) (0.1 - 0.8 x10 3/uL) [...] MD on 0 10/23/21 at 1523 RPT #:[id number] END OF REPORT 2021-10-19 22:49:00-00:00 [facility]L [facility] Hospitalist Progress Note REPORT#:[id number] REPORT STATUS: Signed DATE:10/19/21 TIME: 2248 PATIENT: HARLEEN MANZANO UNIT #: [id number] ROOM/BED: [place] [address] : 80 AGE: 40 SEX: F ATTEND: Laura Trinh ADM AUTHOR: Delisa Shepherd MD * ALL edits or amendments must be made on the el [employer]computer document * Subjective Chief complaint: PT/OT seen. [...] I O ending at 0700: 10/19 0700 07 1900 Intake Total Output Total 2600 Balance [...] no distention Extremities: b/l feet wound Neuro/PNEUMATIC PRESS HAND: alert, oriented X 3, CNII-XII intact, normal [...] (Auto) (14.0 - 32.0 %) 38.3 H Sumter % (Auto) (4.8 - 9.0 %) 11.0 H Eos % (Auto) (0.3 - 3.7 %) 0.2 L Baso % (Auto) (0.0 - 2.0 %) 0.6 Neut # (Auto) (2.0 - 7.6 x10 3/uL) 6.03 Lymph # (Auto) (1.0 - 3.8 x10 3/uL) 4.67 H Sumter # (Auto) (0.1 - 0.8 x10 3/uL) [...] Shepherd MD on 0 10/19/21 at 2253 RPT #:[id number] END OF REPORT 2021-10-19 12:55:00-00:00 [facility] ([facility] Nephrology Progress Note REPORT#:[id number] REPORT STATUS: Signed DATE:10/19/21 TIME: 1255 PATIENT: HARLEEN MANZANO UNIT #: [id number] [address]BED: [address] : 80 AGE: 40 SEX: F ATTEND: Laura Trinh ADM AUTHOR: Timoteo Walker MD * ALL edits or amendments must be made on the [employer] document * Subjective Comments: Data and notes, [...] obese Genitourinary: urinary catheter Extremities: swelling Neuro/PNEUMATIC PRESS HAND: alert, oriented X 3 Psychiatry: no hallucinations [...] Timoteo Walker MD on 10/09 05/02 at [facility] RPT #:[id number] END OF REPORT 2021-10-19 11:47:00-00:00 [facility]ACL [facility] ([facility]) Infectious Dis. Progress Note REPORT#:[id number] REPORT STATUS: Signed DATE:10/19/21 TIME: 1147 PATIENT: HARLEEN MANZANO UNIT #: [id number] ROOM/BED: [place] [address] : 80 AGE: 40 SEX: F ATTEND: Laura Trinh ADM AUTHOR: Pradip Akhtar MD, MD * ALL edits or amendments must be made on the [employer] document * Subjective Chief complaint: DKA HPI: [...] Pulse Ox 97 10/19 1102 B/P 134/74 10/19 1102 B/P Mean 93.7 10/19 1102 Temp 98.6 10/19 1102 Pulse 100 10/19 1102 Resp 16 10/19 1102 O2 Delivery Room air 10/19 0416 FiO2 21 10/15 0920 O2 Flow Rate [...] (Auto) (14.0 - 32.0 %) 38.3 H Sumter % (Auto) (4.8 - 9.0 %) 11.0 H Eos % (Auto) (0.3 - 3.7 %) 0.2 L Baso % (Auto) (0.0 - 2.0 %) 0.6 Neut # (Auto) (2.0 - 7.6 x10 3/uL) 6.03 Lymph # (Auto) (1.0 - 3.8 x10 3/uL) 4.67 H Sumter # (Auto) (0.1 - 0.8 x10 3/uL) [...] Akhtar MD, MD on at 1148 RPT #:[id number] END OF REPORT 2021-10-18 17:03:00-00:00 [facility]L [facility] ([facility]) Infectious Dis. Progress Note REPORT#:[id number] REPORT STATUS: Signed DATE:10/18/21 TIME: 1703 PATIENT: HARLEEN MANZANO UNIT #: [id number] ROOM/BED: [place] [address] : 80 AGE: 40 SEX: F ATTEND: Laura Trinh ADM AUTHOR: Pradip Akhtar MD, MD * ALL edits or amendments must be made on the [employer] document * Subjective Chief complaint: DKA HPI: [...] Pulse Ox 96 10/18 1656 B/P 133/88 10/18 1656 B/P Mean 103.0 10/18 1656 O2 Delivery Room air 10/18 1656 Temp 98.2 10/18 1656 Pulse 83 10/18 1656 Resp 18 10/18 1656 FiO2 21 10/15 0920 O2 Flow Rate 15.0 07/03 1600 Vital Signs: Date Time Temp Pulse Resp B/P B/P Pulse O2 O2 F low FiO2 Mean Ox Delivery Rate 10/18 1656 98.2 83 18 133/88 103.0 96 Room air 10/18 1154 98.6 89 16 154/89 111.0 97 Room air 10/18 0804 98.6 85 18 132/73 92.8 97 Room air 10/18 0433 98.4 88 14 145/84 104.6 94 Room air 10/18 0044 98.2 86 18 140/82 101.6 98 10/17 2203 98.8 87 12 156/84 108 98 Room air PATIENT WEIGHT: Weight (lb): 378 Weight (oz): 0 Weight (kg): 171.458 Medications: Active Meds + DC'd Last 24 Hrs Insulin Glargine (Lantus/Semglee) 20 UNIT DAILY SUBQ Insulin Glargine (Lantus/Semglee) 20 UNIT BID S UBQ (DC) Polyethylene Glycol (MIRALAX) 17 GM DAILY [...] Calcium (8.0 - 10.5 mg/dL) 8.7 10/17 2019 Chemistry POC Glucose (70 - 110 MG/DL) [...] (Auto) (14.0 - 32.0 %) 46.9 H Sumter % (Auto) (4.8 - 9.0 %) 12.0 H Eos % (Auto) (0.3 - 3.7 %) 0.2 L Baso % (Auto) (0.0 - 2.0 %) 0.5 Neut # (Auto) (2.0 - 7.6 x10 3/uL) 4.54 Lymph # (Auto) (1.0 - 3.8 x10 3/uL) 5.35 H Sumter # (Auto) (0.1 - 0.8 x10 3/uL) 1.37 H Eos # (Auto) (0.0 - 0.2 x10 3/uL) 0.02 Baso # (Auto) (0.0 - 0.2 x10 3/uL) 0.06 Abs Immat Gran (auto) (0.00 - 0.03 x10 3/uL) 0 .07 H Add Manual Diff NO Immature Gran % (0.0 - 2.0 %) 0.6 Nucleated RBC % (0 - 0 %) 0.0 Nucleated RBCs # (Man) (0.0 - 0.1 x10 3/uL) 0.0 0 Results: labs reviewed, truner l signs reviewed, x-ray personally reviewed, current [...] Akhtar MD, MD on at 1707 RPT #:[id number] END OF REPORT 2021-10-18 10:29:00-00:00 [facility]) Podiatry Progress Note REPORT#:[id number] REPORT STATUS: Signed DATE:10/18/21 TIME: 1029 PATIENT: HARLEEN MANZANO UNIT #: [id number] ROOM/BED: [place] [address] : 80 AGE: 40 SEX: F ATTEND: Laura Trinh ADM AUTHOR: Martir Zamora DPM * ALL edits or amendments must be made on the [employer] document * Subjective Chief complaint: left and right foot ulcers Patient reports: no abdomina l pain, no chest pain, no cough, no fever, no nausea Objective General VS: Last Documented: Result Date Time Pulse Ox 97 10/18 0804 B/P 132/73 10/18 0804 B/P Mean 92.8 10/18 0804 O2 Delivery Room air 10/18 0804 Temp 98.6 10/18 0804 Pulse 85 [...] 10/18 10/18 10/18 10/17 0803 0616 0600 [id number] 2019 Chemistry Sodium (134 - 147 mEq/L) 142 [...] (Auto) (14.0 - 32.0 %) 46.9 H [place] % (Auto) (4.8 - 9.0 %) 12.0 H Eos % (Auto) (0.3 - 3.7 %) 0.2 L Baso % (Auto) (0.0 - 2.0 %) 0.5 Neut # (Auto) (2.0 - 7.6 x10 3/uL) 4.54 Lymph # (Auto) (1.0 - 3.8 x10 3/uL) 5.35 H Sumter # (Auto) (0.1 - 0.8 x10 3/uL) [...] (0.0 - 0.1 0.00 x10 3/uL) 10/17 10/17 1642 1133 Chemistry POC Glucose (70 - [...] Zamora DPM on 01/30 at 1031 RPT #:[id number] END OF REPORT 2021-10-18 08:02:00-00:00 [facility] Hospitalist Progress Note REPORT#:[id number] REPORT STATUS: Signed DATE:10/18/21 TIME: 801 PATIENT: HARLEEN MANZANO UNIT #: [id number] ROOM/BED: [place] [address] : 80 AGE: 40 SEX: F ATTEND: Laura Trinh ADM AUTHOR: Delisa Shepherd MD * ALL edits or amendments must be made on the [employer] document * Subjective Chief complaint: awaiting PT/OT [...] no distention Extremities: b/l feet wound Neuro/PNEUMATIC PRESS HAND: alert, oriented X 3, CNII-XII intact, normal speech Skin: dry Psychiatry: normal mood Results Findings/Data: Laboratory Tests 10/18 10/18 10/17 10/17 10/17 0616 0432 2019 1642 1133 Chemistry POC Glucose (70 - [...] attest that the foregoing medication list in [facility] medical record is true, accurate, and complete to the best of my knowled ge. Electronically Signed by Delisa Shepherd MD on 0 10/18/21 at 2325 RPT #:[id number] END OF REPORT 2021-10-17 23:29:00-00:00 [facility] Hospitalist Progress Note REPORT#:[id number] REPORT STATUS: Signed DATE:10/17/21 TIME: 2329 PATIENT: HARLEEN MANZANO UNIT #: [id number] ROOM/BED: [place] [address] : 80 AGE: 40 SEX: F ATTEND: Laura Trinh ADM AUTHOR: Delisa Shepherd MD * ALL edits or amendments must be made on the el [employer]/computer document * Subjective Chief complaint: awaiting PT/OT evaluation. Objective General VS/I O: Vital Signs: Date Time Temp Pulse Resp B/P B/P Pulse O2 O2 F low FiO2 Mean Ox Delivery Rate 10/17 2203 98.8 87 12 156/84 108 98 Room air 10/17 1643 97.7 89 18 159/82 107.7 97 Room air / 1137 97.9 97 18 180/84 115.9 97 Room air 10/17 0751 98.6 75 18 130/78 95.4 100 Room air / 0340 98.6 88 16 159/87 110.7 99 / 0200 80 24 170/87 118 96 / 0100 81 14 156/76 107 97 / 0033 98 Room air 10/17 0029 84 15 154/77 108 100 / 0000 98.9 10/17 0000 87 16 187/84 120 97 24 hour I O ending at 0700: 10/17 0700 07 1900 Intake Total 509.31 Output Total 1300 [...] no distention Extremities: b/l feet wound Neuro/PNEUMATIC PRESS HAND: alert, oriented X 3, CNII-XII intact, normal [...] MD on 0 10/17/21 at 2331 RPT #:[id number] END OF REPORT 2021-10-17 13:51:00-00:00 [facility] Endocrinology Progress Note REPORT#:[id number] REPORT STATUS: Signed DATE:10/17/21 TIME: 1351 PATIENT: HARLEEN MANZANO UNIT #: [id number] ROOM/BED: [place] [address] : 80 AGE: 40 SEX: F ATTEND: Laura Trinh ADM AUTHOR: Darvin Mooney MD * ALL edits or amendments must be made on the [employer]/computer document * Subjective Chief complaint: f/u DM I on diet Objective General VS: Last Documented: Result Date Time Pulse Ox 97 10/17 1137 B/P 180/84 10/17 1137 B/P Mean 115.9 10/17 1137 O2 Delivery Room air 10/17 1137 Temp 36.6 10/17 1137 Pulse 97 10/17 [...] MPV (7.0 - 9.0 fL) 11.3 H 07 1633 Chemistry POC Glucose (70 - 110 [...] MD on 0 10/17/21 at 1351 RPT #:[id number] END OF REPORT 2021-10-17 10:59:00-00:00 [facility] ([facility]) Podiatry Progress Note REPORT#:[id number] REPORT STATUS: Signed DATE:10/17/21 TIME: 1059 PATIENT: HARLEEN MANZANO UNIT #: [id number] ROOM/BED: [place] [address] : 80 AGE: 40 SEX: F ATTEND: Laura Trinh ADM AUTHOR: Martir Zamora DPEsau * ALL edits or amendments must be made on the [employer]/computer document * Subjective Chief complaint: left and right foot ulcers Patient reports: no abdominal pain, no chest eliana n, no cough, no fatigue, no fever, no nausea, no shortness of breath Objective General VS: Last Documented: Result Date Time Pulse Ox 100 10/17 750 B/P 130/78 10/17 750 B/P Mean 95.4 10/17 750 O2 Delivery Room air 07/09 0751 Temp 98.6 10/17 0751 Pulse 75 10/17 0751 Resp 18 10/17 0751 FiO2 21 10/15 0920 O2 Flow Rate 15.0 / 1600 PATIENT WEIGHT: Weight (lb): 378 Weight (oz): 0 Weight (kg): 171.458 Medications: Active Meds + DC'd Last 24 Hrs Dextrose/Sodium Chloride (D5 0.225%NS 1,000mL) 1 ,000 ML .Q8H IV (CAN) Sodium Bicarbonate (SODIUM BICARBONATE) 50 MEQ O NCE ONE IV (CAN) Insulin Glargine (Lantus/Semglee) 25 UNIT BID S UBQ Insulin Human Lispro (HUMALOG) 2 UNIT AC [...] 24 hour I O ending at 0700: 09 0700 07/08 1900 Intake Total 509.31 Output [...] MPV (7.0 - 9.0 fL) 11.3 H 07 1326 Chemistry POC Glucose (70 - 110 [...] Zamora DPM on 12/31 at 1102 RPT #:[id number] END OF REPORT 2021-10-17 06:56:00-00:00 [facility] Nephrology Progress Note REPORT#:[id number] REPORT STATUS: Signed DATE:10/17/21 TIME: 06 PATIENT: HARLEEN MANZANO UNIT #: [id number] ROOM[address]BED: [address] : 80 AGE: 40 SEX: F ATTEND: Laura Trinh ADM AUTHOR: Gen Agosto MD * ALL edits or amendments must be made on the el [employer]/computer document * Subjective Chief complaint: Chart reviewed Events noted Objective General VS/I O: Vital Signs: Date Time Temp Pulse Resp B/P B/P Pulse O2 O2 Flow FiO2 Mean Ox Delivery Rate 10/17 0340 98.6 88 16 159/87 110.7 99 10/17 0200 80 24 170/87 118 96 10/17 0100 81 14 156/76 107 97 10/17 0033 98 Room air 10/17 0029 84 15 154/77 108 100 07/ 0000 98.9 07/ 0000 87 16 187/84 120 97 10/16 2301 88 20 174/80 115 97 07/08 2203 90 23 142/71 101 96 07/08 2100 88 14 96 07/08 1999 99.2 07/1999 86 15 98 07/08 1900 98 22 [...] obese Genitourinary: urinary catheter Extremities: swelling Neuro/PNEUMATIC PRESS HAND: alert, oriented X 3 Psychiatry: unable to evaluate Results Findings/Data: Laboratory Tests 10/17 10/17 10/16 10/16 10/16 03336 1633 1326 Chemistry Sodium (134 - 147 [...] % (Auto) (14.0 - 32.0 %) 29.4 Sumter % (Auto) (4.8 - 9.0 %) 18.2 H Eos % (Auto) (0.3 - 3.7 %) 0.3 Baso % (Auto) (0.0 - 2.0 %) 0.5 Neut # (Auto) (2.0 - 7.6 x10 3/uL) 6.06 Lymph # (Auto) (1.0 - 3.8 x10 3/uL) 3.58 Sumter # (Auto) (0.1 - 0.8 x10 3/uL) [...] Agosto MD on 12/31 at 1710 RPT #:[id number] END OF REPORT 2021-10-16 17:08:00-00:00 [facility] ([facility]) Infectious Dis. Progress Note REPORT#:[id number] REPORT STATUS: Signed DATE:10/16/21 TIME: 1708 PATIENT: HARLEEN MANZANO UNIT #: [id number] ROOM/BED: [place] [address] : 80 AGE: 40 SEX: F ATTEND: Laura Trinh ADM AUTHOR: Pradip Akhtar MD, MD * ALL edits or amendments must be made on the [employer]/computer document * Subjective Chief complaint: DKA HPI: 40-year-old female with past medical history sig nificant for diabetes who was found unresponsive by her da maritahtkamaljit for unknown period of time. Her glucose [...] Resp B/P B/P Mean Pulse Ox FiO2 07/07-/08 98.0-98.4 86-103 15-24 132-182/65-8 6 94-123 94-100 Last Documented: Result Date Time Pulse Ox 95 07/08 1445 B/P 132/71 07/08 1445 B/P Mean 94 07/08 1445 Pulse 91 07/08 1445 Resp 20 07/08 1445 Temp 98.0 07/08 1200 FiO2 21 /07 0920 O2 Delivery Room air 07 0920 O2 Flow Rate 15.0 07/03 1600 Vital Signs: Date Time Temp Pulse Resp B/P B/P Pulse O2 O2 Flow FiO2 Mean Ox Delivery Rate / 1445 91 20 132/71 94 95 07/08 [...] I O ending at 0700: 07/08 0700 0707 1900 Intake Total 971.61 Output Total 1999 5120 Balance -1999 4148.39 Intake, IV 471.61 Intake, Oral 500 Number [...] % (Auto) (14.0 - 32.0 %) 29.4 Sumter % (Auto) (4.8 - 9.0 %) 18.2 H Eos % (Auto) (0.3 - 3.7 %) 0.3 Baso % (Auto) (0.0 - 2.0 %) 0.5 Neut # (Auto) (2.0 - 7.6 x10 3/uL) 6.06 Lymph # (Auto) (1.0 - 3.8 x10 3/uL) 3.58 Sumter # (Auto) (0.1 - 0.8 x10 3/uL) [...] Akhtar MD, MD on at 1712 RPT #:[id number] END OF REPORT 2021-10-16 16:35:00-00:00 [facility] ([facility]) Nephrology Progress Note REPORT#:[id number] REPORT STATUS: Signed DATE:10/16/21 TIME: 1635 PATIENT: HARLEEN MANZANO UNIT #: [id number] ROOM/BED: [address] : 80 AGE: 40 SEX: F ATTEND: Laura Trinh ADM AUTHOR: Mary Steiner MD * ALL edits or amendments must be made on the el [employer]/computer document * Subjective Chief complaint: Chart reviewed Events noted Objective General VS/I O: Vital Signs: Date Time Temp Pulse Resp B/P B/P Pulse O2 O2 F low FiO2 Mean Ox Delivery Rate 07/08 1445 91 20 132/71 94 95 [...] 24 hour I O ending at 0700: 07 0700 07 1900 Intake Total 971.61 Output Total 1999 [...] obese Genitourinary: urinary catheter Extremities: swelling Neuro/PNEUMATIC PRESS HAND: alert, oriented X 3 Results Findings/Data: Laboratory [...] 5.0 g/dL) 2.80 L Laboratory Tests 10/16 07 Hematology WBC (4.5 - 11.0 x10 3/uL) [...] % (Auto) (14.0 - 32.0 %) 29.4 Sumter % (Auto) (4.8 - 9.0 %) 18.2 H Eos % (Auto) (0.3 - 3.7 %) 0.3 Baso % (Auto) (0.0 - 2.0 %) 0.5 Neut # (Auto) (2.0 - 7.6 x10 3/uL) 6.06 Lymph # (Auto) (1.0 - 3.8 x10 3/uL) 3.58 Sumter # (Auto) (0.1 - 0.8 x10 3/uL) [...] MD on 0 10/16/21 at 1637 RPT #:[id number] END OF REPORT 2021-10-16 15:09:00-00:00 [facility] ([facility]) Endocrinology Progress Note REPORT#:[id number] REPORT STATUS: Signed DATE:10/16/21 TIME: 1509 PATIENT: HARLEEN MANZANO UNIT #: [id number] RO[address]BED: [address] : 80 AGE: 40 SEX: F ATTEND: Laura Trinh ADM AUTHOR: Gino Hernandez * ALL edits or amendments must be made on the [employer]/computer document * Subjective Chief complaint: f/u DM [...] IV Polyethylene Glycol (MIRALAX) 17 GM BID FEED-TU BE Senna/Docusate Sodium (SENOKOT S) 2 TAB DAILY [...] Genitourinary: not indicated Musculoskeletal: normal inspection Neuro/PNEUMATIC PRESS HAND: alert Findings/data: Laboratory Tests: 10/16 10/16 10/16 [...] % (Auto) (14.0 - 32.0 %) 29.4 Sumter % (Auto) (4.8 - 9.0 %) 18.2 H Eos % (Auto) (0.3 - 3.7 %) 0.3 Baso % (Auto) (0.0 - 2.0 %) 0.5 Neut # (Auto) (2.0 - 7.6 x10 3/uL) 6.06 Lymph # (Auto) (1.0 - 3.8 x10 3/uL) 3.58 Sumter # (Auto) (0.1 - 0.8 x10 3/uL) [...] % (Auto) (14.0 - 32.0 %) 29.4 Sumter % (Auto) (4.8 - 9.0 %) 18.2 H Eos % (Auto) (0.3 - 3.7 %) 0.3 Baso % (Auto) (0.0 - 2.0 %) 0.5 Neut # (Auto) (2.0 - 7.6 x10 3/uL) 6.06 Lymph # (Auto) (1.0 - 3.8 x10 3/uL) 3.58 Sumter # (Auto) (0.1 - 0.8 x10 3/uL) [...] MD on 0 10/17/21 at 1229 RPT #:[id number] END OF REPORT 2021-10-16 11:52:00-00:00 [facility]) Hospitalist Progress Note REPORT#:[id number] REPORT STATUS: Signed DATE:10/16/21 TIME: 1152 PATIENT: HARLEEN MANZANO UNIT #: [id number] ROOM/BED: [place] [address] : 80 AGE: 40 SEX: F ATTEND: Laura Trinh ADM AUTHOR: Laura Trinh MD * ALL edits or amendments must be made on the [employer]/computer document * Subjective Chief complaint: Patient had a fall by bedside, slipped on the fl oor, did not hit her head. No other complaints Objective General VS/I O: Vital Signs: Date Time Temp Pulse Resp B/P B/P Pulse O2 O2 F low FiO2 Mean Ox Delivery Rate 10/16 1038 86 15 167/76 109 99 / 0904 93 16 175/79 113 100 / 0734 102 23 179/86 123 94 / 0638 92 20 154/74 106 98 / 0400 98.3 / 0015 97 16 146/65 94 96 07/08 0000 98.4 10/15 2242 102 19 163/81 114 98 / 2146 103 15 147/79 107 99 10/15 2000 98.2 10/15 1804 101 24 167/77 111 99 / 1700 96 20 149/72 103 97 / 1601 102 146/65 94 / 1600 98.5 24 hour I O ending [...] Hrs Insulin Glargine (Lantus/Semglee) 25 UNIT BID S UBQ Insulin Human Lispro (HUMALOG) 2 UNIT AC [...] no distention Extremities: b/l feet wound Neuro/PNEUMATIC PRESS HAND: alert, oriented X 3, CNII-XII intact, normal [...] % (Auto) (14.0 - 32.0 %) 29.4 Sumter % (Auto) (4.8 - 9.0 %) 18.2 H Eos % (Auto) (0.3 - 3.7 %) 0.3 Baso % (Auto) (0.0 - 2.0 %) 0.5 Neut # (Auto) (2.0 - 7.6 x10 3/uL) 6.06 Lymph # (Auto) (1.0 - 3.8 x10 3/uL) 3.58 Sumter # (Auto) (0.1 - 0.8 x10 3/uL) [...] 0.0 0 Diagnosis, Assessment Plan Free Text DxA P [...] okay to transfer out of ICU to [facility]. Quality: Gen Med Crit Care VTE Prophylaxis VTE prophylaxis initiated: yes Current Medications Current medication review: I attest that the foregoing medication list in [facility] medical record is true, accurate, and complete to the best of my knowled ge. Electronically Signed by Laura Trinh MD on 2 at 1530 RPT #:[id number] END OF REPORT 2021-10-15 22:47:00-00:00 [facility] ([facility]) Infectious Dis. Progress Note REPORT#:[id number] REPORT STATUS: Signed DATE:10/15/21 TIME: 2246 PATIENT: HARLEEN MANZANO UNIT #: [id number] ROOM/BED: [place] [address] : 80 AGE: 40 SEX: F ATTEND: Laura Trinh ADM AUTHOR: Pradip Akhtar MD, MD * ALL edits or amendments must be made on the [employer]/computer document * Subjective Chief complaint: DKA HPI: [...] Resp B/P B/P Mean Pulse Ox FiO2 07/06-10/15 97.0-98.5 55-104 11-28 134-173/65-9 4 94-120 94-100 21 Last Documented: Result Date Time Pulse Ox 99 07/ 1804 B/P 167/77 07/ 1804 B/P Mean 111 07/ 1804 Pulse 101 07/ 1804 Resp 24 07 1804 Temp 98.5 10/15 1600 FiO2 21 / 0920 O2 Delivery Room air 10/15 0920 O2 Flow Rate 15.0 07/03 1600 Vital Signs: Date Time Temp Pulse Resp B/P B/P Pulse O2 O2 F low FiO2 Mean Ox Delivery Rate 10/15 1804 101 24 167/77 111 99 07/07 [...] 176 H 249 H Laboratory Tests 10/15 06 Hematology WBC (4.5 - 11.0 x10 3/uL) [...] % (Auto) (14.0 - 32.0 %) 22.5 Sumter % (Auto) (4.8 - 9.0 %) 15.6 H Eos % (Auto) (0.3 - 3.7 %) 0.8 Baso % (Auto) (0.0 - 2.0 %) 0.3 Neut # (Auto) (2.0 - 7.6 x10 3/uL) 7.05 Lymph # (Auto) (1.0 - 3.8 x10 3/uL) 2.68 Sumter # (Auto) (0.1 - 0.8 x10 3/uL) [...] Akhtar MD, MD on at 2248 RPT #:[id number] END OF REPORT 2021-10-15 15:54:00-00:00 [facility] ([facility]) Nephrology Progress Note REPORT#:[id number] REPORT STATUS: Signed DATE:10/15/21 TIME: 1554 PATIENT: HARLEEN MANZANO UNIT #: [id number] ROOM/BED: [facility] : 80 AGE: 40 SEX: F ATTEND: Laura Trinh ADM AUTHOR: Mary Steiner MD * ALL edits or amendments must be made on the [employer] document * Subjective Chief complaint: Chart reviewed Events noted Extubated Sitting up at the side of the bed Objective General VS/I O: Vital Signs: Date Time Temp Pulse Resp B/P B/P Pulse O2 O2 F low FiO2 Mean Ox Delivery Rate 10/15 1200 36.7 10/15 0920 98 Room air 21 10/15 0700 36.1 56 12 145/80 106 100 / 0645 36.1 56 12 100 / 0630 36.1 58 12 100 / 0615 36.1 59 12 100 / 0600 36.2 57 12 141/78 103 100 07/07 0545 36.2 58 12 100 07/07 0530 36.2 60 13 99 07/ 0515 36.2 61 12 100 07/ 0500 36.2 62 16 139/81 104 100 / 0445 36.2 64 12 100 07/ 0430 36.2 66 12 100 07/07 0415 [...] 07/06 2045 36.7 68 14 99 07/06 2030 36.7 67 14 99 07/06 2014 36.7 68 15 100 07/06 1999 36.7 74 17 168/92 121 99 07/06 [...] 24 hour I O ending at 0700: 07 0700 07 1900 Intake Total 410.00 Output Total 3386 [...] obese Genitourinary: urinary catheter Extremities: swelling Neuro/PNEUMATIC PRESS HAND: alert, oriented X 3 Results Findings/Data: Laboratory [...] % (Auto) (14.0 - 32.0 %) 22.5 Sumter % (Auto) (4.8 - 9.0 %) 15.6 H Eos % (Auto) (0.3 - 3.7 %) 0.8 Baso % (Auto) (0.0 - 2.0 %) 0.3 Neut # (Auto) (2.0 - 7.6 x10 3/uL) 7.05 Lymph # (Auto) (1.0 - 3.8 x10 3/uL) 2.68 Sumter # (Auto) (0.1 - 0.8 x10 3/uL) [...] emergent indication for dialysis yet, but jenae continue to monitor renal indices closely Electronically Signed by Mary Steiner MD on 0 10/15/21 at 1558 RPT #:[id number] END OF REPORT 2021-10-15 14:04:00-00:00 [facility] Endocrinology Progress Note REPORT#:[id number] REPORT STATUS: Signed DATE:10/15/21 TIME: 1404 PATIENT: HARLEEN MANZANO UNIT #: [id number] RO[address]BED: [address] : 80 AGE: 40 SEX: F ATTEND: Laura Trinh ADM AUTHOR: Gino Hernandez * ALL edits or amendments must be made on the [employer]computer document * Subjective Chief complaint: f/u DM I up in bed to start diet Objective General VS: Last Documented: Result Date Time Pulse Ox 98 10/15 0920 FiO2 21 10/15 0920 O2 Delivery Room air 10/15 0920 B/P 145/80 10/15 0700 B/P Mean 106 10/15 0700 Temp 97.0 10/15 0700 Pulse 56 10/15 0700 Resp 12 10/15 0700 O2 Flow Rate 15.0 10/11 1600 PATIENT WEIGHT: Weight (lb): 378 Weight (oz): 8.54 Weight (kg): 171.700 Medications: Active Meds + DC'd Last 24 Hrs Insulin Glargine (Lantus/Semglee) 35 UNIT BID BLANKENSHIP BQ (UNV) Insulin Human Lispro (HUMALOG) 5 UNIT AC SUBQ ( UNV) Insulin Human Lispro (HUMALOG) 0 AC HS SUBQ (UNV r) Furosemide (LASIX 20MG INJ) 20 MG BID 9A 5P IV Insulin Glargine (Lantus/Semglee) 30 UNIT BID S UBQ (DCr) Sodium Hypochlorite (DAKIN'S 1/2 STRENGTH 0.25% [...] Genitourinary: not indicated Musculoskeletal: normal inspection Neuro/PNEUMATIC PRESS HAND: alert Findings/data: Laboratory Tests: 10/15 10/15 10/15 [...] % (Auto) (14.0 - 32.0 %) 22.5 Sumter % (Auto) (4.8 - 9.0 %) 15.6 H Eos % (Auto) (0.3 - 3.7 %) 0.8 Baso % (Auto) (0.0 - 2.0 %) 0.3 Neut # (Auto) (2.0 - 7.6 x10 3/uL) 7.05 Lymph # (Auto) (1.0 - 3.8 x10 3/uL) 2.68 [place]ter # (Auto) (0.1 - 0.8 x10 3/uL) [...] % (Auto) (14.0 - 32.0 %) 22.5 [place]ter % (Auto) (4.8 - 9.0 %) 15.6 H Eos % (Auto) (0.3 - 3.7 %) 0.8 Baso % (Auto) (0.0 - 2.0 %) 0.3 Neut # (Auto) (2.0 - 7.6 x10 3/uL) 7.05 Lymph # (Auto) (1.0 - 3.8 x10 3/uL) 2.68 Sumter # (Auto) (0.1 - 0.8 x10 3/uL) [...] MD on 0 10/17/21 at 1229 RPT #:[id number] END OF REPORT 2021-10-15 12:18:00-00:00 [facility] Hospitalist Progress Note REPORT#:[id number] REPORT STATUS: Signed DATE:10/15/21 TIME: 1218 PATIENT: HARLEEN MANZANO UNIT #: [id number] ROOM/BED: [facility]1 : 80 AGE: 40 SEX: F ATTEND: Laura Trinh ADM AUTHOR: Laura Trinh MD * ALL edits or amendments must be made on the el [employer]computer document * Subjective Chief complaint: Patient extubated yesterday. Now widely awake. P assed speech eval. Objective General VS/I O: Vital Signs: Date Time Temp Pulse Resp B/P B/P Pulse O2 O2 F low FiO2 Mean Ox Delivery Rate 10/15 1200 98.1 07/07 0920 98 Room air 21 07/07 0700 97.0 56 12 145/80 106 [...] 07/06 2115 98.1 63 12 99 07/06 2100 98.1 65 14 99 07/06 2045 98.1 68 14 99 07/06 2029 98.1 67 14 99 07/06 2014 98.1 68 15 100 07/06 2000 98.1 74 17 168/92 121 99 07/06 [...] no distention Extremities: b/l feet wound Neuro/PNEUMATIC PRESS HAND: alert, oriented X 3, CNII-XII intact, normal [...] 224 H 282 H Laboratory Tests 10/15 06 Hematology WBC (4.5 - 11.0 x10 3/uL) [...] % (Auto) (14.0 - 32.0 %) 22.5 Sumter % (Auto) (4.8 - 9.0 %) 15.6 H Eos % (Auto) (0.3 - 3.7 %) 0.8 Baso % (Auto) (0.0 - 2.0 %) 0.3 Neut # (Auto) (2.0 - 7.6 x10 3/uL) 7.05 Lymph # (Auto) (1.0 - 3.8 x10 3/uL) 2.68 [place]ter # (Auto) (0.1 - 0.8 x10 3/uL) [...] Report Impression - Status: SIGNED Entered: 10/15/2021 0706 IMPRESSION: Mild vascular congestion. No focal airspace [...] Laura Trinh MD on 2 at 1516 [facility] #:[id number] END OF REPORT 2021-10-15 11:16:00-00:00 [facility] ([facility]) Electroencephalogram-EEG REPORT#:[id number] REPORT STATUS: Signed DATE:10/15/21 TIME: 1116 PATIENT: HARLEEN MANZANO UNIT #: [id number] ROOM/BED: [place] [address] : 80 AGE: 40 SEX: F ATTEND: Shoaib Shepherd MD ADM AUTHOR: Maegan Munoz MD * ALL edits or amendments must be made on the [employer] document * Procedure Procedure Date of procedure: 10/15/21 Procedure performed: continuous VEEG Indication: seizure, status epilepticus Impression/Conclusion: Date of procedure: 10/14-10/2021 Procedure performed: continuous VEEG Indication: seizure, status epilepticus Impression/Conclusion: Begin Time: 10/14/2021 226 pm End Time: 10/15/2021 1001am TECHNICAL SUMMARY: 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 IMPRESSION: This patient's [facility] vid eo electroencephalogram is abnormal in the presence of diffuse slowing of the b ackground. There are no definite areas of epileptiform activity noted. Electronically Signed by Maegan Munoz MD n 11/23/21 at 1937 RPT #:[id number] END OF REPORT 2021-10-14 18:18:00-00:00 [facility] ([facility]) Infectious Dis. Progress Note REPORT#:[id number] REPORT STATUS: Signed DATE:10/14/21 TIME: 1817 PATIENT: HARLEEN MANZANO UNIT #: [id number] ROOM/BED: [place] [address] : 80 AGE: 40 SEX: F ATTEND: Laura Trinh ADM AUTHOR: Pradip Akhtar MD, MD * ALL edits or amendments must be made on the [employer] document * Subjective Chief complaint: DKA HPI: [...] Resp B/P B/P Mean Pulse Ox FiO2 07/05-/ 96.6-98.6 62-91 17-45 141-183/67-99 97-131 100 40 Last Documented: Result Date Time Pulse Ox 100 07/ 1204 FiO2 40 07/ 1204 Pulse 86 07/ 1204 O2 Delivery Ventilator / 0800 B/P 146/69 07/ 0630 B/P Mean 99 / 0630 Temp 97.9 / 0630 Resp 18 / 0630 O2 Flow Rate 15.0 07/ 1600 Vital Signs: Date Time Temp Pulse Resp B/P B/P Pulse O2 O2 F low FiO2 Mean Ox Delivery Rate / 1204 86 100 40 07/06 0800 Ventilator [...] 97.0 64 18 148/85 110 100 07/05 2030 97.0 65 19 150/85 112 100 07/05 2014 97.0 66 20 152/85 112 100 07/05 1999 97.0 40 07/05 1999 Ventilator 40 07/05 1999 97.0 68 18 154/81 111 100 07/05 1953 69 100 40 07/05 194 97.0 77 40 161/95 120 100 07/05 1930 97.0 66 18 146/88 112 100 07/05 1915 97.0 66 18 145/87 111 100 07/05 1902 97.0 68 17 100 07/05 1900 97.0 69 19 145/86 110 100 07/05 1845 97.0 66 18 149/88 113 100 07/05 1830 97.0 66 18 149/84 110 100 24 hour I O ending at 0700: 06 0700 / 1900 Intake Total 961.39 1012.79 Output Total 1475 2600 Balance -513.61 -1587.21 Intake, Free 60 60 Water Intake, IV 205.39 395.79 Intake, Tube 696 557 Feeding Number 1 1 Bowel Movements Output, Urine 1471 7350 Patient 171.5 kg Weight Weight Bed scale [...] % (Auto) (14.0 - 32.0 %) 15.0 Sumter % (Auto) (4.8 - 9.0 %) 11.6 H Eos % (Auto) (0.3 - 3.7 %) 0.3 Baso % (Auto) (0.0 - 2.0 %) 0.2 Neut # (Auto) (2.0 - 7.6 x10 3/uL) 8.63 H Lymph # (Auto) (1.0 - 3.8 x10 3/uL) 1.81 Sumter # (Auto) (0.1 - 0.8 x10 3/uL) [...] Report Impression - Status: SIGNED Entered: 10/14/2021 2373 IMPRESSION: 1. There are prominent bilateral interstitial [...] tr iple Internal jugular Right Inserted 10/08/21 0749 Provider comments on imported nursing data: [] [...] Akhtar MD, MD on at 1820 RPT #:[id number] END OF REPORT 2021-10-14 18:13:00-00:00 [facility] ([facility]) Electroencephalogram-EEG REPORT#:[id number] REPORT STATUS: Signed DATE:10/14/21 TIME: 1812 PATIENT: HARLEEN MANZANO UNIT #: [id number] ROOM/BED: [place] [address] : 80 AGE: 40 SEX: F ATTEND: Shoaib Shepherd MD ADM AUTHOR: Maegan Munoz MD * ALL edits or amendments must be made on the [employer]computer document * Procedure Procedure Date of procedure: 10/14/21 Procedure performed: continuous VEEG Indication: seizure, status epilepticus Impression/Conclusion: Date of procedure: 10/14/2021 Procedure performed: continuous VEEG Indication: seizure, status epilepticus Impression/Conclusion: Begin Time: 10/14/2021 626 am End Time: 10/14/2021 226 pm TECHNICAL SUMMARY: This is an adult [facility] vi bobby electroencephalogram performed using the standard [...] 60-90 beats per minute. 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 There are no definite areas of epileptiform activity noted. Electronically Signed by Maegan Munoz MD 11/23/21 at 1936 RPT #:[id number] END OF REPORT 2021-10-14 16:16:00-00:00 [facility] ([facility]) Nephrology Progress Note REPORT#:[id number] REPORT STATUS: Signed DATE:10/14/21 TIME: 161 PATIENT: HARLEEN MANZANO UNIT #: [id number] ROOM/BED: [place] [id number] : 80 AGE: 40 SEX: F ATTEND: Laura Trinh ADM AUTHOR: Mary Steiner MD * ALL edits or amendments must be made on the [employer] document * Subjective Chief complaint: Chart reviewed Events noted Off sedation and following commands Objective General VS/I O: Vital Signs: Date Time Temp Pulse Resp B/P B/P Pulse O2 O2 F low FiO2 Mean Ox Delivery Rate / 1204 86 100 40 07/06 0800 Ventilator [...] 36.1 65 19 150/85 112 100 07/05 2014 36.1 66 20 152/85 112 100 07/05 1999 36.1 40 07/05 2000 Ventilator 40 07/05 1999 36.1 68 18 [...] obese Genitourinary: urinary catheter Extremities: swelling Neuro/PNEUMATIC PRESS HAND: alert, follows commands Results Findings/Data: Laboratory Tests [...] (8.0 - 10.5 mg/dL) 8.6 Ionized Calcium Ajy (1.12 - 1.32 1.18 MMOL/L) Phosphorus (2.5 [...] % (Auto) (14.0 - 32.0 %) 15.0 Sumter % (Auto) (4.8 - 9.0 %) 11.6 H Eos % (Auto) (0.3 - 3.7 %) 0.3 Baso % (Auto) (0.0 - 2.0 %) 0.2 Neut # (Auto) (2.0 - 7.6 x10 3/uL) 8.63 H Lymph # (Auto) (1.0 - 3.8 x10 3/uL) 1.81 Sumter # (Auto) (0.1 - 0.8 x10 3/uL) [...] MD on 0 10/14/21 at 1620 RPT #:[id number] END OF REPORT 2021-10-14 15:32:00-00:00 [facility] ([facility]) Critical Care Progress Note REPORT#:[id number] REPORT STATUS: Signed DATE:10/14/21 TIME: 1532 PATIENT: HARLEEN MANZANO UNIT #: [id number] ROOM/BED: [facility]28-1 : 80 AGE: 40 SEX: F ATTEND: Laura Trinh ADM AUTHOR: Greg Mallory MD * ALL edits or amendments must be made on the el ectronic/computer document * Subjective Chief complaint: AMS HPI: 40 year old female with hist ory of DM, obesity. Presented to [place] [facility] on with complaints of lethar gy, weakness, nausea, and vomiting. Pt was intubated for airway protection then t x to [facility] d/t bed availabilty. She was found to [...] I O ending at 0700: 10/14 0700 10/13 1900 Intake Total 961.39 1012.79 Output Total [...] cyanosis, no edema Musculoskeletal normal inspection Neuro/PNEUMATIC PRESS HAND: altered mental status, disoriented, n o motor deficits, no sensory deficits Skin: dry, intact Psychiatry: unable to evaluate Results Findings/data: Laboratory Tests 10/14 0311 Blood Gas Puncture Site R Radial O2 [...] % (Auto) (14.0 - 32.0 %) 15.0 Sumter % (Auto) (4.8 - 9.0 %) 11.6 H Eos % (Auto) (0.3 - 3.7 %) 0.3 Baso % (Auto) (0.0 - 2.0 %) 0.2 Neut # (Auto) (2.0 - 7.6 x10 3/uL) 8.63 H Lymph # (Auto) (1.0 - 3.8 x10 3/uL) 1.81 Sumter # (Auto) (0.1 - 0.8 x10 3/uL) [...] 0515: [Embedded Image Not Available] Microbiology: 10/13 0153 URINE: Urine Culture - RES YEAST Radiology data Recent Impressions: RADIOLOGY - XR CHEST 1 V 10/14 641 Report Impression - Status: SIGNED Entered: 10/14/2021 0756 IMPRESSION: 1. There are prominent bilateral interstitial [...] MD on 0 10/14/21 at 1555 RPT #:[id number] END OF REPORT 2021-10-14 13:29:00-00:00 [facility] ([facility]) Endocrinology Progress Note REPORT#:[id number] REPORT STATUS: Signed DATE:10/14/21 TIME: 1329 PATIENT: HARLEEN MANZANO UNIT #: [id number] ROOM/BED: [place] [address] : 80 AGE: 40 SEX: F ATTEND: [...] 0630 Temp 97.9 10/14 0630 Resp 18 10/14 0630 O2 Flow Rate 15.0 10/11 1600 PATIENT WEIGHT: Weight (lb): 378 Weight (oz): 1.48 Weight (kg): 171.500 Medications: Active Meds + DC'd Last 24 Hrs Insulin Glargine (Lantus/Semglee) 36 UNIT BID BLANKENSHIP BQ Furosemide (LASIX 20MG [...] Genitourinary: not indicated Musculoskeletal: normal inspection Neuro/PNEUMATIC PRESS HAND: alert Findings/data: Laboratory Tests: 10/14 10/14 10/14 [...] % (Auto) (14.0 - 32.0 %) 15.0 Sumter % (Auto) (4.8 - 9.0 %) 11.6 H Eos % (Auto) (0.3 - 3.7 %) 0.3 Baso % (Auto) (0.0 - 2.0 %) 0.2 Neut # (Auto) (2.0 - 7.6 x10 3/uL) 8.63 H Lymph # (Auto) (1.0 - 3.8 x10 3/uL) 1.81 [place]ter # (Auto) (0.1 - 0.8 x10 3/uL) [...] Report Impression - Status: SIGNED Entered: 10/14/2021 0759 IMPRESSION: 1. There are prominent bilateral interstitial [...] % (Auto) (14.0 - 32.0 %) 15.0 Sumter % (Auto) (4.8 - 9.0 %) 11.6 H Eos % (Auto) (0.3 - 3.7 %) 0.3 Baso % (Auto) (0.0 - 2.0 %) 0.2 Neut # (Auto) (2.0 - 7.6 x10 3/uL) 8.63 H Lymph # (Auto) (1.0 - 3.8 x10 3/uL) 1.81 [place]ter # (Auto) (0.1 - 0.8 x10 3/uL) [...] RADIOLOGY - XR CHEST 1 V 10/14 641 Report Impression - Status: SIGNED Entered: 10/14/2021 1485 IMPRESSION: 1. There are prominent bilateral interstitial [...] Darvin Mooney MD on 0 10/17/21 at 9728 RPT #:[id number] END OF REPORT 2021-10-14 12:12:00-00:00 [facility] ([facility]) Neurology Progress Note REPORT#:[id number] REPORT STATUS: Signed DATE:10/14/21 TIME: 1212 PATIENT: HARLEEN MANZANO UNIT #: [id number] ROOM[address]BED: [address] : 80 AGE: 40 SEX: F ATTEND: Laura Trinh ADM AUTHOR: Rj Menjivar MD * ALL edits or amendments must be made on the el [employer]/computer document * Subjective Comments: Video EEG without focal triphasic waves or dysfu nction or epileptiform discharges. No acute changes. Remains intubated on precedex. Review of Systems Free Text ROS Notes Free Text ROS Notes: KATHERYN 2/2 pt condition Objective General VS: Last Documented: Result Date Time Pulse Ox 100 10/14 1204 FiO2 40 / 1204 Pulse 86 / 1204 O2 Delivery Ventilator 10/14 0750 B/P 146/69 10/14 0630 B/P Mean 99 10/14 0630 Temp 36.6 10/14 0630 Resp 18 10/14 0630 O2 Flow Rate 15.0 / 1600 PATIENT WEIGHT: Weight (lb): 378 Weight [...] assessme nt: Results Findings/Data: Laboratory Tests 10/14 0311 Blood Gas Puncture Site R Radial O2 [...] % (Auto) (14.0 - 32.0 %) 15.0 Sumter % (Auto) (4.8 - 9.0 %) 11.6 H Eos % (Auto) (0.3 - 3.7 %) 0.3 Baso % (Auto) (0.0 - 2.0 %) 0.2 Neut # (Auto) (2.0 - 7.6 x10 3/uL) 8.63 H Lymph # (Auto) (1.0 - 3.8 x10 3/uL) 1.81 Sumter # (Auto) (0.1 - 0.8 x10 3/uL) [...] atele ctasis, or pneumonia. Impression By: Anuradha - Abdi Bradford M.D. Results: labs reviewed, vital signs [...] Menjivar MD on 09/30 at 1217 RPT #:[id number] END OF REPORT 2021-10-14 11:23:00-00:00 [facility] Hospitalist Progress Note REPORT#:[id number] REPORT STATUS: Signed DATE:10/14/21 TIME: 1123 PATIENT: HARLEEN MANZANO UNIT #: [id number] ROOM/BED: [place] [address] : 80 AGE: 40 SEX: F ATTEND: Laura Trinh ADM AUTHOR: aLura Trinh MD * ALL edits or amendments must be made on the [employer]/computer document * Subjective Chief complaint: On spontaneous breathing trial today, following commands. Renal function worsening, IV Lasix x1, on 24-hour EEG, on subcu insulin Objective General VS/I O: Vital Signs: Date Time Temp Pulse Resp B/P B/P Pulse O2 O2 F low FiO2 Mean Ox Delivery Rate 10/14 1204 86 100 40 07/06 0750 100 Ventilator 40 /06 0750 71 100 40 07/06 0630 97.9 [...] 100 07/05 3 69 100 40 07/05 1945 97.0 77 [...] no distention Extremities: b/l feet wound Neuro/PNEUMATIC PRESS HAND: altered mental status Skin: dry Psychiatry: unable [...] % (Auto) (14.0 - 32.0 %) 15.0 Sum[place] % (Auto) (4.8 - 9.0 %) 11.6 H Eos % (Auto) (0.3 - 3.7 %) 0.3 Baso % (Auto) (0.0 - 2.0 %) 0.2 Neut # (Auto) (2.0 - 7.6 x10 3/uL) 8.63 H Lymph # (Auto) (1.0 - 3.8 x10 3/uL) 1.81 [place] # (Auto) (0.1 - 0.8 x10 3/uL) [...] (0.0 - 0.1 x10 3/uL) 0. 00 Radiology data: Recent Impressions: RADIOLOGY - XR CHEST 1 V 10/14 0642 Report Impression - Status: SIGNED Entered: 10/14/2021 4558 IMPRESSION: 1. There are prominent bilateral interstitial [...] H every 6 hours for 24 hours 7/4 blood transfusion if hemoglobin drops below 7 [...] attest that the foregoing medication list in [facility] medical record is true, accurate, and complete to the best of my knowled ge. Electronically Signed by Laura Trinh MD on 2 at 1515 RPT #:[id number] END OF REPORT 2021-10-14 09:28:00-00:00 [facility] ([facility]) Electroencephalogram-EEG REPORT#:[id number] REPORT STATUS: Signed DATE:10/14/21 TIME: 927 PATIENT: HARLEEN MANZANO UNIT #: [id number] ROOM/BED: [place] [address] : 80 AGE: 40 SEX: F ATTEND: Shoaib Shepherd MD ADM AUTHOR: Maegan Munoz MD * ALL edits or amendments must be made on the [employer]/computer document * Procedure Procedure Date of procedure: 10/14/21 Procedure performed: continuous VEEG Indication: seizure, status epilepticus Impression/Conclusion: Date of procedure: 10/13-09/2021 Procedure performed: continuous VEEG Indication: seizure, status epilepticus Impression/Conclusion: Begin Time: 10/13/2021 226 pm End Time: 10/14/2021 626 am TECHNICAL SUMMARY: 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 IMPRESSION: This patient's [facility] vid eo electroencephalogram is abnormal in the presence of diffuse slowing of the b ackground. There are no definite areas of epileptiform activity noted. Electronically Signed by Maegan Munoz MD 11/23/21 at 1936 RPT #:[id number] END OF REPORT 2021-10-13 16:05:00-00:00 [facility] ([facility]) Podiatry Progress Note REPORT#:[id number] REPORT STATUS: Signed DATE:10/13/21 TIME: 1605 PATIENT: HARLEEN MANZANO UNIT #: [id number] ROOM/BED: [place] [address] : 80 AGE: 40 SEX: F ATTEND: Laura Trinh ADM AUTHOR: Fermin Perea DPM * ALL edits or amendments must be made on the el [employer]/computer document * Subjective Chief complaint: left and [...] Signed by Fermin Perea DPM on at 4542 RPT #:[id number] END OF REPORT 2021-10-13 15:17:00-00:00 [facility] ([facility]) Endocrinology Progress Note REPORT#:[id number] REPORT STATUS: Signed DATE:10/13/21 TIME: 1517 PATIENT: HARLEEN MANZANO UNIT #: [id number] ROOM/BED: [place] [address] : 80 AGE: 40 SEX: F ATTEND: Laura Trinh ADM AUTHOR: Gino Hernandez * ALL edits or amendments must be made on the el [employer]/computer document * Subjective Chief complaint: f/u DM I Lantus had to be held last night now back on vital protein TF Objective General VS: Last Documented: Result Date Time Pulse Ox 97 10/13 1204 Temp 98.4 10/13 1204 Pulse 88 / 1204 Resp 39 / 1204 B/P 159/121 / 1200 B/P Mean 136 / 1200 FiO2 97 / 0822 O2 Delivery Ventilator / 0822 O2 Flow Rate 15.0 07/03 1600 [...] (CKD) Lactated Ringer's (LACTATED RINGERS) 1,000 ML DIZA EVANGELINA IV Famotidine (PEPCID) 20 MG Q12HR [...] Genitourinary: not indicated Musculoskeletal: normal inspection Neuro/PNEUMATIC PRESS HAND: altered mental status Findings/data: Laboratory Tests: 10/13 [...] % (Auto) (14.0 - 32.0 %) 23.4 Sumter % (Auto) (4.8 - 9.0 %) 12.9 H Eos % (Auto) (0.3 - 3.7 %) 0.3 Baso % (Auto) (0.0 - 2.0 %) 0.2 Neut # (Auto) (2.0 - 7.6 x10 3/uL) 7.39 Lymph # (Auto) (1.0 - 3.8 x10 3/uL) 2.77 Sumter # (Auto) (0.1 - 0.8 x10 3/uL) [...] pH (5.0 - 7.0) 5.0 Ur Specific [place] (1.005 - 1.030) 1.005 Urine Protein (NEGATIVE) [...] Stable chest. Impression By: [email or web address] - Esau Angelo. RADIOLOGY - XR FOOT [...] % (Auto) (14.0 - 32.0 %) 23.4 Sumter % (Auto) (4.8 - 9.0 %) 12.9 H Eos % (Auto) (0.3 - 3.7 %) 0.3 Baso % (Auto) (0.0 - 2.0 %) 0.2 Neut # (Auto) (2.0 - 7.6 x10 3/uL) 7.39 Lymph # (Auto) (1.0 - 3.8 x10 3/uL) 2.77 Sumter # (Auto) (0.1 - 0.8 x10 3/uL) [...] pH (5.0 - 7.0) 5.0 Ur Specific [place] (1.005 - 1.030) 1.005 Urine Protein (NEGATIVE) [...] Date/Time Procedure - Status Source Growth 10/13 0153 Urine Culture - RECD URINE Recent Impressions: RADIOLOGY - XR CHEST 1 V 10/13 0616 Report Impression - Status: SIGNED Entered: 10/13/2021 0659 IMPRESSION: Stable chest. Impression By: [email or web address] - Esau Angelo. RADIOLOGY - XR FOOT [...] MD on 0 10/17/21 at 1229 RPT #:[id number] END OF REPORT 2021-10-13 15:02:00-00:00 [facility] ([facility]) Infectious Dis. Progress Note REPORT#:[id number] REPORT STATUS: Signed DATE:10/13/21 TIME: 1502 PATIENT: HARLEEN MANZANO UNIT #: [id number] ROOM/BED: [place] [address] : 80 AGE: 40 SEX: F ATTEND: Laura Trinh ADM AUTHOR: Pradip Akhtar MD, MD * ALL edits or amendments must be made on the [employer]/computer document * Subjective Chief complaint: DKA HPI: [...] Resp B/P B/P Mean Pulse Ox FiO2 07/-10/13 97.3-99.3 82-118 10-56 114-199/57-12 1 81-137 40-100 30-97 Last Documented: Result Date Time Pulse Ox 97 / 1204 Temp 98.4 07/ 1204 Pulse 88 07/05 1204 Resp 39 / 1204 B/P 159/121 07/05 1200 B/P Mean 136 07/05 1200 FiO2 97 / 0822 O2 Delivery Ventilator 10/13 0822 O2 Flow Rate 15.0 / 1600 Vital Signs: Date Time Temp Pulse Resp B/P B/P Pulse O2 O2 F low FiO2 Mean Ox Delivery Rate / 1204 98.4 88 39 97 07/05 1200 98.4 07/05 1200 98.4 90 48 159/121 136 97 07/05 1151 96 97 07/ 1145 98.4 99 44 161/91 118 94 [...] 177/82 118 100 07/04 1999 99.0 07/04 2000 Ventilator 30 07/04 1999 97.5 98 21 [...] Feeding Number 0 Bowel Movements Output, Urine 2074 700 Patient 188.2 kg 188.6 kg Weight [...] no clubbing Results Findings/Data: Laboratory Tests 10/13 318 Blood [...] % (Auto) (14.0 - 32.0 %) 23.4 Sumter % (Auto) (4.8 - 9.0 %) 12.9 H Eos % (Auto) (0.3 - 3.7 %) 0.3 Baso % (Auto) (0.0 - 2.0 %) 0.2 Neut # (Auto) (2.0 - 7.6 x10 3/uL) 7.39 Lymph # (Auto) (1.0 - 3.8 x10 3/uL) 2.77 Sumter # (Auto) (0.1 - 0.8 x10 3/uL) [...] pH (5.0 - 7.0) 5.0 Ur Specific [place] (1.005 - 1.030) 1.005 Urine Protein (NEGATIVE) [...] Plan discussed with: admitting physician, thais mancilla ([facility] [employer] X RAY OPERATOR) Electronically Signed by Pradip Akhtar MD, MD on at 1508 RPT #:[id number] END OF REPORT 2021-10-13 14:02:00-00:00 [facility] ([facility]) Nephrology Progress Note REPORT#:[id number] REPORT STATUS: Signed DATE:10/13/21 TIME: 1402 PATIENT: HARLEEN MANZANO UNIT #: [id number] ROOM/BED: [place] [address] : 80 AGE: 40 SEX: F ATTEND: Laura Trinh ADM AUTHOR: Mary Steiner MD * ALL edits or amendments must be made on the el [employer]/computer document * Subjective Chief complaint: Chart reviewed [...] 36.4 101 19 177/82 118 100 07/04 1999 37.2 07/04 2000 Ventilator 30 07/04 2000 [...] Feeding Number 0 Bowel Movements Output, Urine 5 700 Patient 188.2 kg 188.6 kg Weight [...] urinary catheter Extremities: trace visible edema Neuro/PNEUMATIC PRESS HAND: on vent, per RN, does not follow comm ands Psychiatry: unable to evaluate Results Findings/Data: Laboratory Tests 10/13 031 Blood Gas Puncture Site R Radial [...] L C-Reactive Protein (<10.0 mg/L) 116.0 H 10/1310 2345 2108 1651 Chemistry Sodium (134 - [...] % (Auto) (14.0 - 32.0 %) 23.4 Sumter % (Auto) (4.8 - 9.0 %) 12.9 H Eos % (Auto) (0.3 - 3.7 %) 0.3 Baso % (Auto) (0.0 - 2.0 %) 0.2 Neut # (Auto) (2.0 - 7.6 x10 3/uL) 7.39 Lymph # (Auto) (1.0 - 3.8 x10 3/uL) 2.77 Sumter # (Auto) (0.1 - 0.8 x10 3/uL) [...] pH (5.0 - 7.0) 5.0 Ur Specific [place] (1.005 - 1.030) 1.005 Urine Protein (NEGATIVE) [...] chest. Impression By: [email or web address] - Esau Angelo RADIOLOGY - XR FOOT 2 VIEWS BI [...] MD on 0 10/13/21 at 1632 RPT #:[id number] END OF REPORT 2021-10-13 13:32:00-00:00 [facility] Critical Care Progress Note REPORT#:[id number] REPORT STATUS: Signed DATE:10/13/21 TIME: 1332 PATIENT: HARLEEN MANZANO UNIT #: [id number] ROOM/BED: [facility]28-1 : 80 AGE: 40 SEX: F ATTEND: Laura Trinh ADM AUTHOR: Ira Salazar VETERINARY X RAY OPERATOR * ALL edits or amendments must be made on the [employer]/computer document * Subjective Chief complaint: AMS HPI: 40 year old female with hist ory of DM, obesity. Presented to [place] ER on with complaints of lethar gy, weakness, nausea, and vomiting. Pt was intubated for airway protection then t x to [facility] d/t bed availabilty. She was found to be in DKA and +COVID. Blood cultures were positive for alpha strep. Review of Systems Unable to obtain due to: intubated Objective General VS/I O Vital Signs Date Temp Pulse Resp B/P B/P Mean Pulse Ox FiO2 10/12-10/13 97.2-99.3 82-118 10-56 114-199/57-12 1 81-137 40-100 30-97 24 hour I O ending at 0700: 10/13 0700 10/12 1900 Intake Total 489.71 1338.55 Output Total [...] cyanosis, no edema Musculoskeletal normal inspection Neuro/PNEUMATIC PRESS HAND: altered mental status, disoriented, n o motor [...] 10/13/21 0510: [Embedded Image Not Available] Microbiology: 10/13 0153 URINE: Urine Culture - RECD 10/11 [...] chest. Impression By: [email or web address] - Esau Angelo RADIOLOGY - XR FOOT 2 VIEWS BI 10/13 1214 Report Impression - Status: SIGNED Entered: 10/13/2021 1328 IMPRESSION: XR Right Foot 1. Soft tissue [...] of care with the critical ca re sheeter waxer operator. Code status: full code Plan discussed with: admitting physician, collab orating MD, nurse, interdisc care team, pharmacy/pharmacist Critical care time: Minutes: 33 Quality: Gen Med Crit Care VTE Prophylaxis VTE prophylaxis initiated: yes Electronically Signed by Ira Salazar NP on 0 10/13/21 at 1443 RPT #:[id number] END OF REPORT 2021-10-13 11:47:00-00:00 [facility] Neurology Consultation Note REPORT#:[id number] REPORT STATUS: Signed DATE:10/13/21 TIME: 1147 PATIENT: HARLEEN MANZANO UNIT #: [id number] ROOM[address]BED: [address] : 80 AGE: 40 SEX: F ATTEND: Laura Trinh ADM AUTHOR: Rj Menjivar MD * ALL edits or amendments must be made on the [employer]/computer document * History of Present Illness HPI Requesting clinician: KEL Salazar Reason for consult: encephalopathy HPI: History is obtained from chart and staff as henrietta ent intubated. Attempted to reach patient's spouse Eryn Wilcox ([phone] ) however went to voicemail. Patient's other listed NOK advises he has [...] Documented: Result Date Time Pulse Ox 40 / 0822 FiO2 97 /05 0822 O2 Delivery Ventilator / 0822 Pulse 107 / 0822 Temp 37.0 / 0400 B/P 156/77 / 0300 B/P Mean 110 /05 0300 Resp 17 /05 0300 O2 Flow Rate 15.0 /03 1600 PATIENT WEIGHT: Weight (lb): 414 Weight [...] H Cortisol AM Sample (ug/dL) 19.35 10/12 0710/12 2345 2108 1651 1236 Chemistry POC Glucose [...] % (Auto) (14.0 - 32.0 %) 23.4 [place] % (Auto) (4.8 - 9.0 %) 12.9 H Eos % (Auto) (0.3 - 3.7 %) 0.3 Baso % (Auto) (0.0 - 2.0 %) 0.2 Neut # (Auto) (2.0 - 7.6 x10 3/uL) 7.39 Lymph # (Auto) (1.0 - 3.8 x10 3/uL) 2.77 [place] # (Auto) (0.1 - 0.8 x10 3/uL) [...] pH (5.0 - 7.0) 5.0 Ur Specific [place] (1.005 - 1.030) 1.005 Urine Protein (NEGATIVE) [...] Menjivar MD on 08/30 at 1224 RPT #:[id number] END OF REPORT 2021-10-13 10:42:00-00:00 [facility] Hospitalist Progress Note REPORT#:[id number] REPORT STATUS: Signed DATE:10/13/21 TIME: 1042 PATIENT: HARLEEN MANZANO UNIT #: [id number] ROOM/BED: [place] [address] : 80 AGE: 40 SEX: F ATTEND: Laura Trinh ADM AUTHOR: Laura Trinh MD * ALL edits or amendments must be made on the el [employer]/computer document * Subjective Chief complaint: Patient intubated, sedated, weaning off sedation Objective General VS/I O: Vital Signs: Date Time Temp Pulse Resp B/P B/P Pulse O2 O2 F low FiO2 Mean Ox Delivery Rate 10/13 1901 97.0 68 17 100 10/13 1900 97.0 69 19 145/86 110 100 10/13 1845 97.0 66 18 149/88 113 100 10/13 1830 97.0 66 18 149/84 110 100 [...] 2030 97.5 101 19 177/82 118 100 10/13 1999 99.0 10/13 1999 Ventilator 30 10/13 1999 97.5 98 21 179/85 122 100 10/12 1947 100 100 30 10/12 1930 97.3 100 13 186/89 128 100 10/12 1915 97.3 96 13 100 24 hour I O ending at 0700: 0705 0700 10/12 1900 Intake Total 489.71 1338.55 Output Total 5 700 Balance -1585.29 638.55 Intake, Free 60 60 Water Intake, IV 113.71 941.55 Intake, Tube 316 337 Feeding Number 0 Bowel Movements Output, Urine 5 700 Patient 188.2 kg 188.6 kg Weight [...] no distention Extremities: b/l feet wound Neuro/PNEUMATIC PRESS HAND: altered mental status Skin: dry Psychiatry: unable [...] (ml) 500 PEEP (cmH2O) 5 Laboratory Tests 07/05 07/05 07/05 07/05 07/05 1639 1349 0819 0510 0510 Chemistry POC [...] % (Auto) (14.0 - 32.0 %) 23.4 [place] % (Auto) (4.8 - 9.0 %) 12.9 H Eos % (Auto) (0.3 - 3.7 %) 0.3 Baso % (Auto) (0.0 - 2.0 %) 0.2 Neut # (Auto) (2.0 - 7.6 x10 3/uL) 7.39 Lymph # (Auto) (1.0 - 3.8 x10 3/uL) 2.77 [place] # (Auto) (0.1 - 0.8 x10 3/uL) [...] pH (5.0 - 7.0) 5.0 Ur Specific [place] (1.005 - 1.030) 1.005 Urine Protein (NEGATIVE) [...] encephalopathy 10/12 Ammonia IR consulted for LP Anemia: No [...] attest that the foregoing medication list in [facility] medical record is true, accurate, and complete to the best of my knowled ge. Electronically Signed by Laura Trinh MD on 2 at 1920 RPT #:[id number] END OF REPORT 2021-10-13 10:34:00-00:00 [facility] ([facility]) Electroencephalogram-EEG REPORT#:[id number] REPORT STATUS: Signed DATE:10/13/21 TIME: 1034 PATIENT: HARLEEN MANZANO UNIT #: [id number] ROOM/BED: [place] [address] : 80 AGE: 40 SEX: F ATTEND: Laura Trinh ADM AUTHOR: Maegan Ricardo MD * ALL edits or amendments must be made on the el [employer]/computer document * Procedure Procedure Date of procedure: [...] Maegan Ricardo MD 10/13/21 at 1110 RPT #:[id number] END OF REPORT 2021-10-12 15:14:00-00:00 [facility] ([facility]) Clinical Note REPORT#:[id number] REPORT STATUS: Signed DATE:10/12/21 TIME: 1514 PATIENT: HARLEEN MANZANO UNIT #: [id number] ROOM/BED: [facility]28-1 : 80 AGE: 40 SEX: F ATTEND: Laura Trinh ADM AUTHOR: Filipe Owens MD * ALL edits or amendments must be made on the el [employer]/computer document * Clinical Note Note: [id number] Electronically Signed by Filipe Owens MD on at 1514 RPT #:[id number] END OF REPORT 2021-10-12 15:14:00-00:00 [id number] [place] [address] PATIENT NAME: HARLEEN MANZANO ADMIT DATE: 2 ACCOUNT NO: [id number] ROOM NO: [facility] AGE: 40 REPORT TYPE: PROGRESS NOTE SEX: [...] By: Filipe Owens MD WT: PN:FRANCIS/OSMIN/MALINA Conf#: [id number]#: [id number] Authenticated by Filipe Owens MD On 10/31/2021 08 :40:11 AM Electronically Signed by Filipe Owens MD on 10/31 at 0840 PATIENT NAME: HARLEEN MANZANO 8326 2021-10-12 12:08:00-00:00 [facility] Hospitalist Progress Note REPORT#:[id number] REPORT STATUS: Signed DATE:10/12/21 TIME: 1208 PATIENT: HARLEEN MANZANO UNIT #: [id number] ROOM/BED: [place] [address] : 80 AGE: 40 SEX: F ATTEND: Laura Trinh ADM AUTHOR: Laura Trinh MD * ALL edits or amendments must be made on the el [employer]/computer document * Subjective Chief complaint: Patient intubated, sedated, weaning off sedation Objective General VS/I O: Vital Signs: Date Time Temp Pulse Resp B/P B/P Pulse O2 O2 F low FiO2 Mean Ox Delivery Rate 07/04 1413 97.2 92 18 100 07/04 1400 [...] 157/75 07/04 0000 100 07/03 2300 99 07/03 2300 97.9 07/03 2300 106 07/03 2300 159/75 07/03 2300 100 07/03 2250 101 07/03 2250 98.1 07/03 2250 108 07/03 2250 159/75 07/03 2250 100 07/03 2245 98 100 30 07/03 2200 18 07/03 2200 85 07/03 2200 98.2 07/03 2200 66 07/03 2200 87/54 07/03 2200 99 07/03 2100 18 07/03 2100 99 07/03 2100 98.6 10/11 2100 75 10/11 2100 104/57 10/11 2100 100 10/12 1999 18 10/12 1999 97 10/12 1999 98.8 10/12 1999 98.8 Ventilator 30 10/11 2000 Ventilator 30 10/12 1999 67 10/12 1999 [...] no distention Extremities: b/l feet wound 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 Impression By: KhaiAMRosana Pack M.D. RADIOLOGY - XR CHEST 1 [...] of my knowled ge. Electronically Signed by Larua Trinh MD on 2 at 1623 RPT #:[id number] END OF REPORT 2021-10-12 08:16:00-00:00 [facility] Critical Care Progress Note REPORT#:[id number] REPORT STATUS: Signed DATE:10/12/21 TIME: 0816 PATIENT: HARLEEN MANZANO UNIT #: [id number] ROOM/BED: [place] [address] : 80 AGE: 40 SEX: F ATTEND: Laura Trinh ADM AUTHOR: Ira Salazar VETERINARY X RAY OPERATOR * ALL edits or amendments must be made on the [employer] document * Subjective Chief complaint: AMS HPI: 40 year old female with hist ory of DM, obesity. Presented to [place] [facility] on with complaints of lethar gy, weakness, nausea, and vomiting. Pt was intubated for airway protection then t x to [facility] d/t bed availabilty. She was found to be in DKA and +COVID. Blood cultures were positive for alpha strep. Review of Systems Unable to obtain due to: intubated Objective General VS/I O Vital Signs Date Temp Pulse Resp B/P B/P Mean Pulse Ox FiO2 10/11-10/12 97.5-98.8 85-102 0-19 78-159/48-80 58-108 99-100 [...] cyanosis, no edema Musculoskeletal normal inspection Neuro/PNEUMATIC PRESS HAND: altered mental status, disoriented, n o motor [...] (Auto) (14.0 - 32.0 %) 37.5 H [place] % (Auto) (4.8 - 9.0 %) 12.2 H Eos % (Auto) (0.3 - 3.7 %) 0.1 L Baso % (Auto) (0.0 - 2.0 %) 0.2 Neut # (Auto) (2.0 - 7.6 x10 3/uL) 6.10 Lymph # (Auto) (1.0 - 3.8 x10 3/uL) 4.63 H Sumter # (Auto) (0.1 - 0.8 x10 3/uL) [...] 0450: [Embedded Image Not Available] Microbiology: 10/11 08 BLOOD: Blood Culture - RECD 10/11 08 [...] of care with the critical ca re sheeter waxer operator. Plan discussed with: collabo jayla MD, consultants, nurse, interdisc care team, pharmacy/pharmacist Critical care time: Minutes: 35 Quality: Gen Med Crit Care VTE Prophylaxis VTE prophylaxis initiated: yes Electronically Signed by Ira Salazar VETERINARY X RAY OPERATOR on 0 10/12/21 at 1407 [facility] #:[id number] END OF REPORT 2021-10-11 20:26:00-00:00 [facility] [facility] ([facility]) Endocrinology Progress Note REPORT#:[id number] REPORT STATUS: Signed DATE:10/11/21 TIME: 2025 PATIENT: HARLEEN MANZANO UNIT #: [id number] ROOM[address]BED: [address] : 80 AGE: 40 SEX: F ATTEND: Laura Trinh ADM AUTHOR: Gino Hernandez * ALL edits or amendments must be made on the el ectronic/computer document * Subjective Chief complaint: f/u DM I on TF insulin gtt off Objective General VS: Last Documented: Result Date Time Pulse Ox 100 10/12 1943 FiO2 30 10/12 1943 Pulse 99 10/12 1943 B/P 110/70 10/11 1600 B/P Mean 83 10/11 1600 O2 Delivery Ventilator 10/11 1600 O2 Flow Rate 15.0 10/11 1600 Temp 97.9 10/11 1600 Resp 17 [...] ML Insulin Glargine (Lantus/Semglee) 36 UNIT BID S UBQ Vancomycin HCl (VANCOMYCIN HCL) 3,000 MG ONCE [...] (Dextrose 10% W) 1,000 ML ASDIR IV Insulin Human Regular (HumuLIN R) 100 UNIT [...] Genitourinary: not indicated Musculoskeletal: normal inspection Neuro/PNEUMATIC PRESS HAND: altered mental status Findings/data: Laboratory Tests: 10/11 [...] % (Auto) (14.0 - 32.0 %) 31.2 Sumter % (Auto) (4.8 - 9.0 %) 10.4 H Eos % (Auto) (0.3 - 3.7 %) 0.1 L Baso % (Auto) (0.0 - 2.0 %) 0.2 Neut # (Auto) (2.0 - 7.6 x10 3/uL) 9.16 H Lymph # (Auto) (1.0 - 3.8 x10 3/uL) 5.02 H Sumter # (Auto) (0.1 - 0.8 x10 3/uL) [...] (0.0 - 0.1 x10 3/uL) 0.0 6 07/06 15/ 0010 2147 Chemistry POC Glucose (70 - [...] % (Auto) (14.0 - 32.0 %) 31.2 [place] % (Auto) (4.8 - 9.0 %) 10.4 H Eos % (Auto) (0.3 - 3.7 %) 0.1 L Baso % (Auto) (0.0 - 2.0 %) 0.2 Neut # (Auto) (2.0 - 7.6 x10 3/uL) 9.16 H Lymph # (Auto) (1.0 - 3.8 x10 3/uL) 5.02 H Sumter # (Auto) (0.1 - 0.8 x10 3/uL) [...] 857 Blood Culture - RECD BLOOD 10/11 0858 Blood Culture - RECD BLOOD Recent [...] the abdomen or pelvis . Impression By: [email or web address] Boston M.D. CAT SCAN - CT HEAD/BRAIN [...] MD on 0 10/17/21 at 1228 RPT #:[id number] END OF REPORT 2021-10-11 19:59:00-00:00 [facility]L [facility] ([facility]) Nephrology Consultation Note REPORT#:[id number] REPORT STATUS: Signed DATE:10/11/21 TIME: 1958 PATIENT: HARLEEN MANZANO UNIT #: [id number] ROOM/BED: [place] [address] : 80 AGE: 40 SEX: F ATTEND: [...] years old female who was admitted to [facility] for AMS, DKA, resp failure, JAYLEEN, COVID-19. She is currently in ICU, intubated and on vent. On IVF. Off Dopamine and Insulin drips. Nurse at [facility]. Serum Cr at 3.9 BUN 49. As [...] 100 30 07/03 0400 36.7 Ventilator 30 07/03 0238 86 100 35 07/03 0151 100 07/03 0145 17 07/03 0145 88 07/03 0145 [...] 07/02 2130 79 07/02 2130 109/57 07/02 0 100 07/02 5 18 07/02 2114 100 07/02 2114 36.7 07/02 2115 85 07/02 5 120/63 07/02 2114 100 07/02 2099 18 07/02 2099 90 07/02 2099 36.7 07/02 2099 80 07/02 2099 108/59 07/02 2099 100 07/02 5 18 07/02 2044 91 07/02 2044 36.7 07/02 2045 79 07/02 5 109/58 07/2044 98 07/2029 17 072029 93 07/02 2029 36.8 07/02 2029 80 07/02 2029 107/57 07/02 2029 99 072014 16 10/10 2014 98 0702 2014 36.8 07/02 2014 83 07/02 2014 116/58 10/10 2014 99 071999 15 10/11 1999 104 071999 36.7 07/02 1999 Ventilator 30 071999 89 07/1999 129/62 10/11 1999 100 24 hour I O ending at 0700: 10/11 0700 10/10 1900 Intake Total 2456.00 2676.00 Output Total [...] Genitourinary: urinary catheter Extremities: trace edema Neuro/PNEUMATIC PRESS HAND: on vent Psychiatry: unable to evaluate Results [...] % (Auto) (14.0 - 32.0 %) 31.2 Sumter % (Auto) (4.8 - 9.0 %) 10.4 H Eos % (Auto) (0.3 - 3.7 %) 0.1 L Baso % (Auto) (0.0 - 2.0 %) 0.2 Neut # (Auto) (2.0 - 7.6 x10 3/uL) 9.16 H Lymph # (Auto) (1.0 - 3.8 x10 3/uL) 5.02 H Sumter # (Auto) (0.1 - 0.8 x10 3/uL) [...] atelectasis, aspiration or pneumonia. Impression By: [email or web address] Misa Pack M.D. Diagnosis, Assessment Plan Free Text [...] follow pt with you. at 1635 RPT #:[id number] END OF REPORT 2021-10-11 13:25:00-00:00 [facility] ([facility]) Critical Care Progress Note REPORT#:[id number] REPORT STATUS: Signed DATE:10/11/21 TIME: 1325 PATIENT: HARLEEN MANZANO UNIT #: [id number] ROOM/BED: [place] [address] : 80 AGE: 40 SEX: F ATTEND: Laura Trinh ADM AUTHOR: Kermit Casas MD * ALL edits or amendments must be made on the [employer]/computer document * Subjective HPI: 40 year old [...] Kermit Casas MD on 06/30 at 1501 [facility] #:[id number] END OF REPORT 2021-10-11 12:51:00-00:00 [facility] Hospitalist Progress Note REPORT#:[id number] REPORT STATUS: Signed DATE:10/11/21 TIME: 1251 PATIENT: HARLEEN MANZANO UNIT #: [id number] ROOM/BED: [place] [address] : 80 AGE: 40 SEX: F ATTEND: Laura Trinh ADM AUTHOR: Laura Trinh MD * ALL edits or amendments must be made on the [employer]/computer document * Subjective Chief complaint: Patient intubated, sedated, altered off sedation , failed CPAP trial yesterday Objective General VS/I O: Vital Signs: Date Time Temp Pulse Resp B/P B/P Pulse O2 O2 F low FiO2 Mean Ox Delivery Rate 10/11 1200 98.0 90 18 78/48 58 07/03 0800 98.1 99 18 103/55 71 100 Ventilator 15.0 30 07/03 0400 98.1 Ventilator 30 07/03 0238 86 100 35 07/03 0151 100 07/03 0145 17 07/03 0145 88 07/03 0145 98.2 07/03 0145 72 07/03 0145 99/55 07/03 0145 100 07/03 0130 18 07/03 0130 88 07/03 0130 98.1 07/03 0130 76 07/03 0130 100/59 07/03 [...] 07/02 2130 79 07/02 2130 109/57 07/02 0 100 07/02 2114 18 07/02 2114 100 07/02 2114 98.1 07/02 2114 85 07/02 5 120/63 07/02 5 100 07/02 2099 18 07/02 2099 90 07/02 2099 98.1 07/02 2099 80 07/02 2099 108/59 07/02 2099 100 07/02 5 18 07/02 2044 91 07/02 2044 98.1 07/02 2044 79 07/02 2044 109/58 07/02 2044 98 07/02 2029 17 07/02 2029 93 07/02 2029 98.2 07/02 2029 80 07/02 2029 107/57 07/02 2029 99 07/02 2014 16 10/10 2014 98 07/02 2014 98.2 07/02 2014 83 07/02 2014 116/58 07/02 2014 99 07/02 1999 15 10/11 1999 104 07/02 1999 98.1 07/02 1999 [...] 96 07/02 1900 140/68 07/02 1900 99 07/02 1845 118 07/02 1845 97.3 07/02 1845 111 07/02 1845 156/80 07/02 1845 100 07/02 1745 111 100 30 24 hour I O ending at 0700: 0703 0700 07/02 1900 Intake Total 2456.00 2676.00 [...] no distention Extremities: b/l feet wound Neuro/PNEUMATIC PRESS HAND: altered mental status Skin: dry Psychiatry: unable [...] H Ammonia (11 - 35 umol/L) 10/10 191 1809 1805 Chemistry POC Glucose (70 - 110 MG/DL) 260 H 291 H 290 H Lactic Acid (0.4 - 1.9 mmol/L) 1.1 Ammonia (11 - 35 umol/L) 10/10 1729 Chemistry POC Glucose (70 - 110 MG/DL) 273 H Laboratory Tests 10/110 Coagulation INR (0.8 - 1.2) 1.0 PT [...] % (Auto) (14.0 - 32.0 %) 31.2 Sumter % (Auto) (4.8 - 9.0 %) 10.4 H Eos % (Auto) (0.3 - 3.7 %) 0.1 L Baso % (Auto) (0.0 - 2.0 %) 0.2 Neut # (Auto) (2.0 - 7.6 x10 3/uL) 9.16 H Lymph # (Auto) (1.0 - 3.8 x10 3/uL) 5.02 H Sumter # (Auto) (0.1 - 0.8 x10 3/uL) [...] pH (5.0 - 7.0) 5.0 Ur Specific [place] (1.005 - 1.030) 1.009 Urine Protein (NEGATIVE) [...] Impressions: ULTRASOUND - US RETROPERITONEAL COM 10/11 922 Report Impression - Status: SIGNED Entered: 10/11/2021 0900 IMPRESSION: No acute sonographic finding Impression By: Natalee - Christopher Li, M .D. CAT SCAN - CT ABD PELVIS W/O [...] Trinh MD on 2 at 1733 RPT #:[id number] END OF REPORT 2021-10-10 22:32:00-00:00 [facility] ([facility]) Infect Disease Consult Note REPORT#:[id number] REPORT STATUS: Signed DATE:10/10/21 TIME: 2231 PATIENT: HARLEEN MANZANO UNIT #: [id number] ROOM/BED: [place] [address] : 80 AGE: 40 SEX: F ATTEND: Laura Trinh MD ADM AUTHOR: Pradip Akhtar MD, MD * ALL edits or amendments must be made on the [employer]/computer document * History of Present Illness Requesting [...] Resp B/P B/P Mean Pulse Ox FiO2 10/09-10/10 96.4-98.1 86-111 18-19 87-138/54-71 65-96 30-100 30-335 Last Documented: Result Date Time Pulse Ox 100 / 2227 FiO2 335 / 2227 Pulse 92 07/ 2227 O2 Delivery Ventilator /1999 Temp 97.5 07/02 1918 B/P 120/61 07/02 1600 B/P Mean 80 07/02 1600 O2 Flow Rate 15.0 07/02 1600 Resp 18 07/02 1600 Vital Signs: Date Time Temp Pulse Resp B/P B/P Pulse O2 O2 F low FiO2 Mean Ox Delivery Rate 07/ 2227 92 100 335 07/1999 Ventilator 30 07/02 1949 99 100 30 [...] 96.4 07/02 0100 78 07/02 0100 104/61 10/10 0100 100 10/10 0000 19 10/10 0000 100 10/10 0000 96.6 10/10 0000 96.5 Ventilator 35 10/10 0000 92 / 0000 126/71 10/10 0000 100 10/09 2311 96 100 35 10/09 2300 18 10/09 2300 96 10/09 2300 96.8 10/09 2300 96 10/09 2300 138/71 10/09 2300 100 24 hour I O ending at 0700: 10/10 0710/09 1900 Intake Total 4700.00 4714.00 Output Total [...] Extremities: no clubbing Results Findings/Data: Laboratory Tests 10/10 0420 Blood Gas Puncture [...] (3.4 - 5.0 g/dL) 2.40 L 10/09 2234 Chemistry POC Glucose (70 - 110 MG/DL) [...] (Auto) (14.0 - 32.0 %) 12.1 L Sumter % (Auto) (4.8 - 9.0 %) 11.0 H Eos % (Auto) (0.3 - 3.7 %) 0.0 L Baso % (Auto) (0.0 - 2.0 %) 0.1 Neut # (Auto) (2.0 - 7.6 x10 3/uL) 12.34 H Lymph # (Auto) (1.0 - 3.8 x10 3/uL) 2.01 Sumter # (Auto) (0.1 - 0.8 x10 3/uL) [...] pH (5.0 - 7.0) 5.0 Ur Specific [place] (1.005 - 1.030) 1.009 Urine Protein (NEGATIVE) [...] radiographic appearance of the chest. Impression By: [email or web address] - Esau Gary Results: labs reviewed, turner l signs reviewed, [...] Akhtar MD, MD on at 2234 RPT #:[id number] END OF REPORT 2021-10-10 21:02:00-00:00 [facility] ([facility]) Endocrinology Consultation REPORT#:[id number] REPORT STATUS: Signed DATE:10/10/21 TIME: 2101 PATIENT: HARLEEN MANZANO UNIT #: [id number] ROOM/BED: [place] [address] : 80 AGE: 40 SEX: F ATTEND: Laura Trinh ADM AUTHOR: Gino Hernandez * ALL edits or amendments must be made on the [employer]/computer document * History of Present Illness Requesting [...] morbid ob esity and DM1 presented to [place] [facility] with complaints of lethargy and weakness, [...] O: Last Documented: Result Date Time FiO2 10/10 O2 Delivery Ventilator 10/11 1999 Pulse Ox 100 10/10 1948 Pulse 99 10/10 1948 Temp 97.5 10/10 1918 B/P 120/61 10/10 [...] Cardiovascular: regular rate rhythm Respiratory: intubated Neuro/PNEUMATIC PRESS HAND: altered mental status Results Findings/Data: Laboratory Tests: [...] pH (5.0 - 7.0) 5.0 Ur Specific [place] (1.005 - 1.030) 1.009 Urine Protein (NEGATIVE) [...] H 269 H 10/10 10/10 10/10 10/10 0420 0405 0323 0200 Blood Gas Puncture Site R [...] (Auto) (14.0 - 32.0 %) 12.1 L [place] % (Auto) (4.8 - 9.0 %) 11.0 H Eos % (Auto) (0.3 - 3.7 %) 0.0 L Baso % (Auto) (0.0 - 2.0 %) 0.1 Neut # (Auto) (2.0 - 7.6 x10 3/uL) 12.34 H Lymph # (Auto) (1.0 - 3.8 x10 3/uL) 2.01 Sumter # (Auto) (0.1 - 0.8 x10 3/uL) [...] - 0.1 x10 3/uL) 0.1 2 H 10/10 10/10 10/09 10/09 10/09 0038 [...] Date/Time Procedure - Status Source Growth 10/10 175 Urine Culture - WKST URINE 10/10 1745 [...] MD on 0 10/17/21 at 1228 RPT #:[id number] END OF REPORT 2021-10-10 17:35:00-00:00 [facility] Critical Care Progress Note REPORT#:[id number] REPORT STATUS: Signed DATE:10/10/21 TIME: 1735 PATIENT: HARLEEN MANZANO UNIT #: [id number] ROOM/BED: [place] [address] : 80 AGE: 40 SEX: F ATTEND: Laura Trinh ADM AUTHOR: Greg Mallory MD * ALL edits or amendments must be made on the [employer]/computer document * Subjective Chief complaint: AMS HPI: she has PMH morbid obesity and DM1 presents to [place] ER with complaints of clarissa rgy and [...] Pulse Ox 30 10/10 1600 B/P 120/61 / 1600 B/P Mean 80 07/02 1600 FiO2 100 07/02 1600 O2 Delivery Ventilator 10/11 1599 O2 Flow Rate 15.0 10/11 1599 Temp 36.6 10/10 1600 Pulse 90 10/10 1600 Resp 18 10/11 1599 24 hour I O ending at 0700: 10/10 0700 07 1900 Intake Total 4700.00 4714.00 Output Total [...] 10/09 10/09 10/09 10/09 0000 2309 2234 6 2026 Chemistry Sodium (134 - 147 mEq/L) [...] - 5.0 g/dL) 2.40 L 10/09 10/09 1915 1913 Chemistry Sodium (134 - 147 mEq/L) 138 [...] (Auto) (14.0 - 32.0 %) 12.1 L [place] % (Auto) (4.8 - 9.0 %) 11.0 H Eos % (Auto) (0.3 - 3.7 %) 0.0 L Baso % (Auto) (0.0 - 2.0 %) 0.1 Neut # (Auto) (2.0 - 7.6 x10 3/uL) 12.34 H Lymph # (Auto) (1.0 - 3.8 x10 3/uL) 2.01 Sumter # (Auto) (0.1 - 0.8 x10 3/uL) [...] 1915: [Embedded Image Not Available] Microbiology: 10/10 165 FOOT: Wound Culture - ORD 10/10 0000 [...] MD on 0 10/10/21 at 1742 RPT #:[id number] END OF REPORT 2021-10-10 17:05:00-00:00 [facility]L [facility]) Pharmacy Prog.Note-Vancomycin REPORT#:[id number] REPORT STATUS: Signed DATE:10/10/21 TIME: 1705 PATIENT: HARLEEN MANZNAO UNIT #: [id number] ROOM/BED: [facility] : 80 AGE: 40 SEX: F ATTEND: Laura Trinh ADM AUTHOR: Ericka Evans [facility] * ALL edits or amendments must be made on the [employer]/computer document * Vancomycin Vancomycin Medication Therapy Goal: trough 10-15 mcg/mL Indication for treatment: SSTI Current therapy: New start Day of therapy: Weight: Actual weight (kg): 178 VS and I/O: Vital Signs Date Temp Pulse Resp B/P B/P Mean Pulse Ox FiO2 10/08-10/10 94.5-99.0 62-130 9-37 87-143/50-71 65-98 30-100 30-100 72 hours ending at 0700 10/10 0700 10/09 1900 10/09 0710/08 19010/07 0700 1900 Intake 4700.00 4714.00 770.00 Total Output [...] 72 Hour I O Total 10/10 0710/09 0700 10/08 0700 Intake Total 9414.00 770.00 Output Total 560 [...] Report Impression - Status: SIGNED Entered: 10/10/2021 09 IMPRESSION: Stable radiographic appearance of the chest. Impression By: Natalee - Esau Gary Treatment plan: consult, initiation [...] Trinh Indication: SSTI Trough goal: 10-15 mcg/mL / A P: 1. Vitals - Afebrile, BP [...] 3000mg IV x1 dose (17mg/kg). Considering the mayi reich's body habitus (ABW = 178kg) and significant renal dysfunction, will plan to dose vancomycin by level for now rather than starting a sched uled maintenance regimen. Will order a random serum level for tomorrow at 1400 and redose if indicat ed. Thank you for the consult. Pharmacy will continu e to follow. Electronically Signed by Ericka Evans [facility] on 06/02 at 1722 RPT #:[id number] END OF REPORT 2021-10-10 14:53:00-00:00 [facility] ([facility]) Hospitalist Progress Note REPORT#:[id number] REPORT STATUS: Signed DATE:10/10/21 TIME: 1453 PATIENT: HARLEEN MANZANO UNIT #: [id number] ROOM/BED: [facility] : 80 AGE: 40 SEX: F ATTEND: Laura Trinh ADM AUTHOR: Laura Trinh MD * ALL edits or amendments must be made on the [employer]/computer document * See Addendum Subjective Chief complaint: Patient intubated, sedated, altered off sedation , failed CPAP trial Objective General VS/I O: Vital Signs: Date Time Temp Pulse Resp B/P B/P Pulse O2 O2 F low FiO2 Mean Ox Delivery Rate / 1949 99 100 30 07/02 1918 97.5 [...] 96.6 07/02 0200 65 07/02 0200 87/54 07/ 0200 100 07/ 0100 18 07/ 0100 87 07/ 0100 96.4 07/ 0100 78 07/ 0100 104/61 07/ 0100 100 07/ 0000 19 07/ 0000 100 07/ 0000 96.6 07/ 0000 96.5 Ventilator 35 07/02 0000 92 07/02 0000 126/71 07/ 0000 100 / 2311 96 100 35 / 2300 18 10/09 2300 96 07/ 2300 96.8 07/ 2300 96 07/ 2300 138/71 07 2300 100 / 2200 18 10/09 2200 99 10/09 2200 96.8 10/09 2200 76 / 2200 104/58 10/09 2200 99 07/ 2100 18 10/09 2100 97 / 2100 97.3 10/09 2100 77 07/ 2100 104/58 10/09 2100 100 24 hour I O ending [...] (DC) Lactated Ringer's (LACTATED RINGERS) 1,000 ML . Q10H IV Propofol (DIPRIVAN 1,000MG/100ML) 100 ML TITRATE [...] no distention Extremities: b/l feet wound Neuro/PNEUMATIC PRESS HAND: altered mental status Skin: dry Psychiatry: unable to evaluate Results Findings/Data: Laboratory Tests 10/10 0420 Blood Gas Puncture [...] 5.0 g/dL) 2.40 L 10/09 10/09 10/09 3454 213 7 Chemistry POC Glucose (70 - 110 MG/DL) [...] (Auto) (14.0 - 32.0 %) 12.1 L [place] % (Auto) (4.8 - 9.0 %) 11.0 H Eos % (Auto) (0.3 - 3.7 %) 0.0 L Baso % (Auto) (0.0 - 2.0 %) 0.1 Neut # (Auto) (2.0 - 7.6 x10 3/uL) 12.34 H Lymph # (Auto) (1.0 - 3.8 x10 3/uL) 2.01 [place] # (Auto) (0.1 - 0.8 x10 3/uL) [...] pH (5.0 - 7.0) 5.0 Ur Specific [place] (1.005 - 1.030) 1.009 Urine Protein (NEGATIVE) [...] by Laura Trinh MD on 2 at 2116 RPT #:[id number] END OF REPORT 2021-10-09 15:37:00-00:00 [facility] Hospitalist Progress Note REPORT#:[id number] REPORT STATUS: Signed DATE:10/09/21 TIME: 1537 PATIENT: HARLEEN MANZANO UNIT #: [id number] ROOM/BED: [place] [address] : 80 AGE: 40 SEX: F ATTEND: James Teran MD ADM AUTHOR: Gilberto Sigeel DO * ALL edits or amendments must be made on the [employer]/computer document * Subjective Comments: Patient seen and examined, remains intub ated. Discussed case with RN. Still on insulin drip. Objective General VS/I O: Vital Signs: Date Time Temp Pulse Resp B/P B/P Pulse O2 O2 Flow FiO2 Mean Ox Delivery Rate 10/09 1309 126 100 35 07/01 1200 98.2 122 19 07/01 0809 100 Ventilator 40 07/01 0809 130 100 40 07/01 0800 98.3 128 19 130/63 85 40 [...] 0000 94.6 114 13 120/61 86 100 10/08 2350 94.5 113 13 124/62 85 100 10/08 2340 94.5 112 15 120/65 86 100 10/08 2330 94.5 115 14 118/65 83 100 10/08 2324 94.5 119 37 100 10/08 2320 94.5 116 18 119/61 84 100 10/08 2312 116 26 109/56 77 100 10/08 2200 112 15 102/53 74 100 10/08 2130 110 15 107/59 79 100 10/08 2100 110 17 104/57 76 100 10/089 110 100 100 10/08 2048 110 20 104/57 72 100 Ventilator [...] normal bowel sounds, soft, no distention Neuro/PNEUMATIC PRESS HAND: altered mental status Skin: dry Results Findings/Data: [...] 10/09 10/08 10/08 10/08 10/08 0042 2340 7 2107 2107 Chemistry Sodium (134 - 147 mEq/L) 130 [...] (Auto) (14.0 - 32.0 %) 10.5 L [place] % (Auto) (4.8 - 9.0 %) 3.6 L Eos % (Auto) (0.3 - 3.7 %) 30.4 H Baso % (Auto) (0.0 - 2.0 %) 0.2 Neut # (Auto) (2.0 - 7.6 x10 3/uL) 11.89 H Lymph # (Auto) (1.0 - 3.8 x10 3/uL) 2.37 [place] # (Auto) (0.1 - 0.8 x10 3/uL) [...] -Ceftriaxone and azithromycin. 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 -Provide stress ulcer prophylaxis and VTE prophy laxis Electronically Signed by Gilberto Siegel DO on 05/02 at 1539 RPT #:[id number] END OF REPORT 2021-10-09 14:20:00-00:00 [facility] ([facility]) Critical Care Progress Note REPORT#:[id number] REPORT STATUS: Signed DATE:10/09/21 TIME: 1420 PATIENT: HARLEEN MANZANO UNIT #: [id number] ROOM/BED: [place] [address] : 80 AGE: 40 SEX: F ATTEND: James Teran MD ADM AUTHOR: Greg Mallory MD * ALL edits or amendments must be made on the [employer]/computer document * Subjective Chief complaint: AMS HPI: she has PMH morbid obesity and DM1 presents to [place] ER with complaints of clarissa rgy and [...] 250 ML Results Findings/data: Laboratory Tests 10/09 10/08 0400 2055 Blood Gas Puncture Site R Radial R [...] L 10/09 10/08 10/08 10/08 0042 2340 2207 2107 Chemistry POC Glucose (70 - 110 [...] (Auto) (14.0 - 32.0 %) 10.5 L [place] % (Auto) (4.8 - 9.0 %) 3.6 L Eos % (Auto) (0.3 - 3.7 %) 30.4 H Baso % (Auto) (0.0 - 2.0 %) 0.2 Neut # (Auto) (2.0 - 7.6 x10 3/uL) 11.89 H Lymph # (Auto) (1.0 - 3.8 x10 3/uL) 2.37 [place] # (Auto) (0.1 - 0.8 x10 3/uL) [...] 0.1 x10 3/uL) 0.0 2 Laboratory Tests 10/09/21 1345: [Embedded Image Not Available] 10/09/21 0615: [Embedded Image Not Available] 10/08/212107: [Embedded Image Not Available] Microbiology: 10/08 2217 [...] Mallory MD on 0 10/09/21 at 1455 [facility] #:[id number] END OF REPORT 2021-10-09 02:02:00-00:00 [facility] ([facility]) Hospitalist History Physical REPORT#:[id number] REPORT STATUS: Signed DATE:10/09/21 TIME: 0202 PATIENT: HARLEEN MANZANO UNIT #: [id number] ROOM/BED: [facility]-1 : 80 AGE: 40 SEX: F ATTEND: James Teran MD ADM AUTHOR: Emilie Ferguson MD * ALL edits or amendments must be made on the el [employer]/computer document * History of Present Illness HPI [...] Result Date Time Pulse Ox 100 / 0240 B/P 101/58 07/ 0240 B/P Mean 75 07/ 0240 Temp 98.2 07/ 0240 Pulse 120 07/ 0240 Resp 15 / 0240 FiO2 40 07/ 0000 O2 Delivery Ventilator 10/09 0000 24 hour I O ending at 0700: 10/09 0700 10/08 1900 Intake Total Output Total [...] (Auto) (14.0 - 32.0 %) 10.5 L [place] % (Auto) (4.8 - 9.0 %) 3.6 L Eos % (Auto) (0.3 - 3.7 %) 30.4 H Baso % (Auto) (0.0 - 2.0 %) 0.2 Neut # (Auto) (2.0 - 7.6 x10 3/uL) 11.89 H Lymph # (Auto) (1.0 - 3.8 x10 3/uL) 2.37 [place] # (Auto) (0.1 - 0.8 x10 3/uL) [...] is no acute cardiopulmonary process. Impression By: [email or web address] - Mark De Leon D.O. Diagnosis, Assessment [...] -Ceftriaxone and azithromycin. 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 -Obtain UA, urine sodium and creatinine. -Provide stress ulcer prophylaxis and VTE prophy laxis Electronically Signed by Emilie Ferguson MD on 0 10/09/21 at 0315 RPT #:[id number] END OF REPORT 2021-10-08 22:12:00-00:00 [facility] ([facility]) Critical Care Consult Note REPORT#:[id number] REPORT STATUS: Signed DATE:10/08/21 TIME: 2211 PATIENT: HARLEEN MANZANO UNIT #: [id number] ROOM/BED: [place] [id number] : 80 AGE: 40 SEX: F ATTEND: James Teran MD ADM AUTHOR: Pierre Cordero MD * ALL edits or amendments must be made on the [employer]/computer document * History of Present Illness HPI Requesting clinician: ER Reason for consult: respiratory failure Chief complaint: AMS HPI: she has PMH morbid obesity and DM1 presents to [place] ER with complaints of clarissa rgy and [...] Insulin Human Regular (HumuLIN R) 100 UNIT ASDI R IV (CKD) Sodium Chloride (SODIUM CHLORIDE 0.9%) [...] (Auto) (14.0 - 32.0 %) 10.5 L [place] % (Auto) (4.8 - 9.0 %) 3.6 L Eos % (Auto) (0.3 - 3.7 %) 30.4 H Baso % (Auto) (0.0 - 2.0 %) 0.2 Neut # (Auto) (2.0 - 7.6 x10 3/uL) 11.89 H Lymph # (Auto) (1.0 - 3.8 x10 3/uL) 2.37 [place] # (Auto) (0.1 - 0.8 x10 3/uL) [...] by Pierre Cordero MD on 09/11 at 8588 [facility] #:[id number] END OF REPORT 2021-10-08 21:39:00-00:00 [facility] ([facility]) EMERGENCY PROVIDER REPORT REPORT#:[id number] REPORT STATUS: Signed DATE:10/08/21 TIME: 2138 PATIENT: HARLEEN MANZANO UNIT #: [id number] ROOM/BED: [address] AGE: 40 SEX: F PCP PHYS: No Primary or Family P hysician SERVICE AUTHOR: Mark Gorman MD * ALL edits or amendments must be made on the el ectronic/computer document * HPI-General Illness Free Text HPI Notes Free Text HPI Notes 40-year-old female, history of diabetes. Patient daughter called 911 after patient was found down, unknown period time. Dec reased level of GCS, glucose read "high". On arrival to [facility] in ER, pat ient was evaluated, [...] (Auto) (14.0 - 32.0 %) 10.5 L Sumter % (Auto) (4.8 - 9.0 %) 3.6 L Eos % (Auto) (0.3 - 3.7 %) 30.4 H Baso % (Auto) (0.0 - 2.0 %) 0.2 Neut # (Auto) (2.0 - 7.6 x10 3/uL) 11.89 H Lymph # (Auto) (1.0 - 3.8 x10 3/uL) 2.37 Sumter # (Auto) (0.1 - 0.8 x10 3/uL) [...] Insulin Human Regular 100 UNIT ASDIR 10/08 2129 CKD 10/08 Sodium Chloride 99 ML IV 11/07 Skin And Mucous Membrane Agent Sig/Aubrey Start [...] (minutes): 32 Services Performed Patient management by Maria Isabel rojas spent at bedside, Reviewing test results, Reviewing imaging, Discussing henrietta ent care, Documentation in record, Time with fam/surrogate Separately billable procedures excluded from maria isabel mcclure. Patient was critically ill due to: DKA, [...] as written. I was present for the vleasquez portions of any procedures performed and the [...] Gorman MD on 05/02 at 0025 RPT #:[id number] END OF REPORT 2021-10-08 14:37:00-00:00 [facility] ([facility]) EMERGENCY PROVIDER REPORT REPORT#:[id number] REPORT STATUS: Signed DATE:10/08/21 TIME:1437 PATIENT: HARLEEN MANZANO UNIT #: [id number] ROOM/BED: : 80 AGE: 40 SEX: F PCP PHYS: DOES_NOT KNOW SERVICE AUTHOR: Chuy Vega MD * ALL edits or amendments must be made on the el [employer]/computer document * HPI-Altered Mental Status General Confirmed Patient Yes Initial Greet Date/Time 10/08/21 1406 Presentation Chief Complaint Not acting right Hx Obtained From EMS Unable to Obtain Hx Altered mental status Onset Occurred Unknown Quality Unable to verbalize Free Text HPI Notes Free Text HPI Notes 48-year-old female, past med ical history of diabetes with unclear compliance of medications. Patient's daugh ter called 911 after patient was down on [...] sk FiO2 (21 - 100 %) 100 30 10/08 1410 1403 Chemistry Lactic Acid (0.4 - 2.0 mmol/L) 2.1 H Coagulation INR (0.8 - 1.2 INR Unit) 1.03 PTT ([place]) (26 - 35 SECONDS) 26.3 PT Patient/Control [...] (Auto) (20.5 - 51.1 %) 13.8 L [place] % (Auto) (1.7 - 9.3 %) 6.0 Eos % (Auto) (0.0 - 6.0 %) 0.0 Baso % (Auto) (0.0 - 2.0 %) 0.5 Neut # (Auto) (1.8 - 7.6 K/mm3) 19.8 H Lymph # (Auto) (0.6 - 3.2 K/mm3) 3.6 H [place] # (Auto) (0.3 - 1.1 K/mm3) 1.6 H Eos # (Auto) (0.0 - 0.4 K/mm3) 0.0 Baso # (Auto) (0.0 - 0.1 K/mm3) 0.1 Abs Immat Gran (auto) (0.00 - 0.03 x10 3/uL) 1 .03 H Add Manual Diff (CRITERIA DIFF/SCN) NO [...] - 7.0 pH UNITS) <=5.0 Ur Specific [place] (1.005 - 1.030 SG) 1.020 Urine Protein [...] congestive changes possibly. Location: U19 Impression By: KhaiRMErendira - Timi Davis M.D . CAT SCAN - CT C-SPINE W/O CONT 10/08 1610 Report Impression - Status: SIGNED Entered: 10/08/2021 1635 Impression: 1. No evidence of trauma. Location code: H5 CT Brain Without Contrast Indication: found down, vomiting Comparison: None Technical factors: Axial images were obtained fr om the base of the skull to the vertex. Sagittal and coronal recons truction.Dose: 1352 mGy. This exam was performed according to our [facility] ental dose-optimization program, which includes automa kennedy [...] of the brain. Impression By: Esau Morin CAT SCAN - CT HEAD/BRAIN W/O CONT [...] This exam was performed according to our [facility] ental dose-optimization program, which includes automa kennedy [...] Time-out performed, Oxygen administered, Pulse oximeter applied, cafeteria monitor ros lied, Hand hygiene observed, Standard surgical [...] guardian Patient Position Neutral position Blade/ET Tube/Route [place] scope, ET tube cuffed, Route: oral Procedural [...] resources for this now Time of Re-Eval 143 )( Re-Eval Status Unchanged Re-Evaluation/Progress #2 Text/Dict [...] 250 ML X1ED STA 10/08 1706 AC Bitartrate IV 10/19 0305 1729 Rocuronium [place] 150 MG X1ED STA 10/08 1427 D C 10/08 IV 10/08 1428 1445 Central Nervous System Agents Sig/Aubrey Start time Last Medication Dose Route Stop Time Status Admin Magnesium Sulfate/ 100 ML ASDIR PRN 10/08 1645 AC Dextrose IV 10/09 1644 Fentanyl Citrate 100 ML X1ED STA 10/08 1501 CKD 10/08 IV 10/12 1900 1508 Etomidate 20 MG X1ED STA 10/08 1427 DC 10/08 IV 10/08 1428 1445 Propofol 100 ML X1ED STA 10/08 1427 CKD IV 10/12 1826 Electrolytic, Caloric, And Noe Sig/Aubrey Start time Last Medication Dose Route Stop Time Status Admin Sodium Chloride 1,000 ML X1ED STA 10/08 1903 AC IV 10/08 2002 Sodium Chloride 1,000 ML X1ED STA 10/08 1901 AC 10/08 IV 10/08 2000 1917 Sodium Bicarbonate 0 .STK-MED ONE 10/08 [...] Insulin Human Regular 100 ML TITRATE 10/08 164 5 CKD 10/08 IV 11/07 1644 1709 Insulin [...] 1719 Spoke with: Emergency physician [facility] Transfer Accepted Yes Accepted by: Sherif )( [...] by Chuy Vega MD on at 1938 RPT #: [id number] END OF REPORT 2021-10-08 14:24:00-00:00 [id number] [address] PATIENT NAME: HARLEEN MANZANO ADMIT DATE: ACCOUNT NO: [id number] ROOM NO: AGE: 40 REPORT TYPE: eELECTROCARDIOGRAM SEX: F ADMITTING PHYSICIAN: ATTENDING PHYSICIAN: Order: [id number] Test Reason : (Not Selected) Test Date/Time Stamp: TueOct 08 2021 14:24:55 Blood Pressure : 119/062 mmHG Vent. Rate : 098 BPM Atrial Rate : 098 BPM P-R Int : 144 ms QRS Dur : 122 ms QT Int : 400 ms P-R-T Axes : 070 005 075 degree s QTc Int : 510 ms Normal sinus rhythm Confirmed by MD Eloisa, Ramon ([id number]) on 4:30:06 PM Referred By: Self Referred Confirmed by:Ramon robert MD at 1630 PATIENT NAME: HARLEEN MANZANO [id number]
--- NOTE | 2022-10-01 22:16 | ER ---
Nurse's Notes [facility] Name: Serjio Armendariz Age: 41 yrs Sex: Female : 1980 Arrival Date: 10/01/2022 Time: 18:55 Bed 10 Private MD: Diagnosis: Encounter for change or removal of surgical wound dressing Presentation: 10/01 19:27 Chief complaint: Patient states: i need my temperature checked and my dressing changed kl on left foot s/p amputation bebeto toes and debridement on september 08 in [facility] last dressing change x 4 days ago by clinic pt reports [facility] not have supplies or ability to change dressing herself. Coronavirus screen: Vaccine status: Patient reports being unvaccinated. Ebola Screen: Patient negative for fever greater than or equal to 101.5 degrees Fahrenheit, and additional compatible Ebola Virus Disease symptoms. Initial Sepsis Screen: Does the patient meet any 2 criteria? HR > 90 bpm. Does the patient have a suspected source of infection? Yes: Skin breakdown/wound. Risk Assessment: Do you want to hurt yourself or someone else? Patient reports no desire to harm self or others. 19:27 Method Of Arrival: Wheelchair 19:27 Acuity: ANGÉLICA 3 kl 19:32 Note pt reports nunez appt on Tuesday here last for same complaint. Triage Assessment: 19:33 General: Appears in no apparent distress. comfortable, Behavior is calm, cooperative. kl Pain: Denies pain. Historical: - Allergies: 19:31 Sulfa (Sulfonamide Antibiotics); - Home Meds: 19:31 Insulin: Lantus Sub-Q [Active]; Levofloxacin Oral [Active]; linezolid oral [Active]; metronidazole 500 mg Oral tablet [Active]; - PMHx: 19:31 diabetes mellitus; kl - PSHx: 19:31 left toe amputation; kl - Immunization history:: Adult Immunizations not up to date. - Social history:: Smoking status: Patient denies any tobacco usage or history of. Screenin:10 [facility] ED Fall Risk Assessment (Adult) History of falling in the last 3 months, pf1 including since admission No falls in past 3 months (0 pts) Confusion or Disorientation No (0 pts) Intoxicated or Sedated No (0 pts) Impaired Gait No (0 pts) Mobility Assist Device Used No (0 pt) Altered Elimination No (0 pt) Score/Fall Risk Level 0 - 2 = Low Risk Oriented to surroundings, Maintained a safe environment, Educated pt \T\ family on fall prevention, incl call for assistance when getting out of bed, Assessed \T\ reinforced patient's understanding of fall precautions, Provided non-skid footwear, Hourly rounding (assess needs \T\ fall precautionary measures) done, Used ambulatory aids as needed (educated on \T\ assisted with), Used gait belt as appropriate. 22:10 Abuse screen: Denies threats or abuse. Nutritional screening: No deficits noted. pf1 Tuberculosis screening: No symptoms or risk factors identified. Assessment: 22:10 General: Appears in no apparent distress. comfortable, obese, well groomed, well pf1 developed, Behavior is calm, cooperative, appropriate for age, quiet. 22:10 Pain: Denies pain. Neuro: No deficits noted. Level of Consciousness is awake, alert, pf1 obeys commands, Oriented to person, place, time, situation. Cardiovascular: No deficits noted. Capillary refill < 3 seconds Patient's skin is warm and dry. Respiratory: No deficits noted. Airway is patent Respiratory effort is even, unlabored, Respiratory pattern is regular, symmetrical. GI: No deficits noted. No signs and/or symptoms were reported involving the gastrointestinal system. : No deficits noted. No signs and/or symptoms were reported regarding the genitourinary system. EENT: No deficits noted. No signs and/or symptoms were reported regarding the EENT system. Derm: Reports dressing needs to be changed to left foot amputation. Vital Signs: 19:27 BP 99 / 72; Pulse 101; Resp 18; Temp 98.3; Pulse Ox 100% on R/A; Weight 156.94 kg; kl Height 5 ft. 11 in. ; Pain 0/10; 23:30 BP 109 / 78; Pulse 92; Resp 16; Pulse Ox 100% ; pf1 19:27 Body Mass Index 48.26 (156.94 kg, 180.34 cm) 19:27 Pain Scale: Adult ED Course: 18:58 Patient arrived in ED. am2 19:31 Triage completed. 19:37 Alvino Ha PA is PHCP. [facility] 19:37 Jean-Paul Parson MD is Attending Physician. [facility] 22:10 No provider procedures requiring assistance completed. Patient did not have IV access pf1 during this emergency room visit. 22:10 Patient has correct armband on for positive identification. Bed in low position. Call pf1 light in reach. 22:10 Arm band placed on right wrist. pf1 23:03 Jimmy Kim DPM is Referral Physician. homer Administered Medications: No medications were administered Medication: 23:30 VIS not applicable for this client. pf1 Outcome: 22:15 Discharge ordered by . homre 23:30 Discharged to home via wheelchair, with family. pf1 23:30 Condition: improved 23:30 Discharge instructions given to patient, Instructed on discharge instructions, follow up and referral plans. Demonstrated understanding of instructions, follow-up care, wound care. 23:30 Patient left the ED. pf1 Signatures: Shayla Barbosa, RN Alvino Rothman PA PA jmm Moreno, Amanda am Isis Palafox RN RN pf1
--- NOTE | 2022-10-01 22:16 | EDPHYS ---
Physician Documentation [facility] Name: Serjio Armendariz Age: 41 yrs Sex: Female : 1980 Arrival Date: 10/01/2022 Time: 18:55 Bed 10 Private MD: ED Physician Jean-Paul Parson HPI: 10/01 20:03 This 41 yrs old Black Female presents to ER via Wheelchair with complaints of Wound jmm Recheck. 20:03 The affected area is on the left foot. Is a 41-year-old female with history diabetes jmm mellitus status post partial foot amputation performed on September 08. Patient requests dressing change. Patient admits to weightbearing on the foot. Denies fever or purulent drainage from the wound.. Historical: - Allergies: 19:31 Sulfa (Sulfonamide Antibiotics); kl - Home Meds: : Insulin: Lantus Sub-Q [Active]; Levofloxacin Oral [Active]; linezolid oral [Active]; kl metronidazole 500 mg Oral tablet [Active]; - PMHx: 19:31 diabetes mellitus; kl - PSHx: 19:31 left toe amputation; kl - Immunization history:: Adult Immunizations not up to date. - Social history:: Smoking status: Patient denies any tobacco usage or history of. ROS: 20:03 Constitutional: Negative for fever, chills, and weight loss, Cardiovascular: Negative jmm for chest pain, palpitations, and edema, Respiratory: Negative for shortness of breath, cough, wheezing, and pleuritic chest pain. 20:03 MS/extremity: Positive for 20:03 All other systems are negative. Exam: 20:03 Constitutional: This is a well developed, well nourished patient who is awake, alert, jmm and in no acute distress. Head/Face: atraumatic. Eyes: EOMI, no conjunctival erythema appreciated ENT: Moist Mucus Membranes Neck: Trachea midline, Supple Chest/axilla: Normal chest wall appearance and motion. Cardiovascular: Regular rate and rhythm. No edema appreciated Respiratory: Normal respirations, no respiratory distress appreciated Abdomen/GI: Non distended Back: Normal ROM 20:03 Musculoskeletal/extremity: Full dorsalis pulse noted to the left foot, compartments are soft, neurovascular tact. 20:03 Skin: Wound noted to the dorsum of the left foot, no purulent drainage, no erythema. 20:03 Neuro: Orientation: is normal, Mentation: is normal, Memory: is normal. 20:03 Psych: Behavior/mood is pleasant, cooperative. Vital Signs: 19:27 BP 99 / 72; Pulse 101; Resp 18; Temp 98.3; Pulse Ox 100% on R/A; Weight 156.94 kg; kl Height 5 ft. 11 in. ; Pain 0/10; 23:30 BP 109 / 78; Pulse 92; Resp 16; Pulse Ox 100% ; pf1 19:27 Body Mass Index 48.26 (156.94 kg, 180.34 cm) kl 19:27 Pain Scale: Adult kl MDM: 20:03 Patient medically screened. [facility] 10/02 00:55 Differential diagnosis: Chronic wound. Data reviewed: vital signs, nurses notes. [facility] Counseling: I had a detailed discussion with the patient and/or guardian regarding: the historical points, exam findings, and any diagnostic results supporting the discharge/admit diagnosis, the need for outpatient follow up, to return to the emergency department if symptoms worsen or persist or if there are any questions or concerns that arise at home. 10/01 20:07 Order name: Wound Care: dressing change ; Complete Time: 23:23 [facility] Administered Medications: No medications were administered Disposition Summary: 10/01/22 22:15 Discharge Ordered Location: Home [facility] Condition: Stable [facility] Diagnosis - Encounter for change or removal of surgical wound dressing [facility] Followup: [facility] - With: Private Physician - When: 2 - 3 days - Reason: Recheck today's complaints, Continuance of care, Re-evaluation by your physician Followup: [facility] - With: Jimmy Kim DPM - When: 2 - 3 days - Reason: Recheck today's complaints, Continuance of care, Re-evaluation by your physician Discharge Instructions: - Discharge Summary Sheet [facility] - How to Change Your Wound Dressing [facility] Forms: - Medication Reconciliation Form [facility] - Thank You Letter [facility] - Antibiotic Education [facility] - Prescription Opioid Use [facility] Signatures: Shayla Barbosa, RN RN Alvino Salazar PA PA jmm
[2022-10-01 23:53] VITALS: BP 99/72; TEMP 98.3; O2SAT 100
== END 2022-10-01 23:30 | disposition home or self-care (01) ==
LOC: ER 18:55
DX: Z48.01 Encounter for change or removal of surgical wound dressing (principal)
CPT/HCPCS: 99282

== ENCOUNTER 2022-10-11 15:53 | Emergency (ER) | payer OTHER ==
--- OUTSIDE RECORDS SUMMARY | 2022-10-11 16:07 | XMS REPORT | Continuity of Care Document ---
:1980 Author Organization [facility] t Address [address] [place] [address] Care Team Providers Name Role Phone Asked, No Pcp Primary Care Physician Unavailable ADAMS_R Attending Clinician Unavailable Yenny MORENO, Blanco Sanchez Attending Clinician [phone] Tyler MORENO, Yusuf Brown Attending Clinician Evelia Navarrete RN Attending Clinician Unavailable Sae MORENO, Samantha Rushing Attending Clinician [phone] Mateo RNAndria Attending Clinician Unavailable Hallie Medina Attending Clinician Unavailable Brandee Xaveir DO Attending Clinician Ramu RNHemalatha Attending Clinician Unavailable Primo MORENO, Ishaan Mercado Attending Clinician Cecilia Obrien MD Attending Clinician Nadege Obrien MD Attending Clinician Den Lea Attending Clinician Noah MORENO, David Britt Attending Clinician Marga MORENO, Nan Attending Clinician Demetrio HAMMOND, Keith Irvin Attending Clinician [phone] Cleo GUTIERRES Attending Clinician Cong Pearson Attending Clinician Jhon Cherry MD Attending Clinician [phone] JIMMIE ALVARADO Attending Clinician Unavailable Marshal Maya [...] ics) s to drug Sulfa DA Active [facility] 8[facility]17 [facility] 00:00: [facility] (Sulfona 4-15 Clear mide 00:00: Jj [facility]iot [facility] Social History Social Habit Start Date Stop Date Quantity Comments Source Gender identity [facility] Sexual orientation [facility] History of Social 2022-09-08 2022-09-[address] function 00:00:00 00:00:00 Hospital Alcohol intake 2022-09-02 2022-09-02 Lifetime Hinduism 00:00:00 00:00:00 non-drinker Hospital (finding) Tobacco use and 2022-06-16 2022-06-16 Smokeless Hinduism exposure 00:00:00 00:00:00 tobacco non-user Hospital Sex Assigned At [birth year] [facility] 00:00:00 00:00:00 Hospital Smoking Status Start Date Stop Date Source Never Smoker [facility] Medications Ordered Filled Start Stop Current Ordering [...] Hospita U-100 13 l INSULIN SUBQ) insulin 2022-0 Yes 26U Q.5D Inject Methodi GLARGINE 5-[address] (LANTUS) 16:41: (26 Units Hosp sonya 100 unit/mL 13 total) l injection under the (vial) skin 2 (two) times a day. insulin 2022-0 Yes Inject Methodi lispro 5-[address] (HUMALOG 16:41: skin. Hospita U-100 13 l INSULIN SUBQ) linezolid 2022-0 2023- No 600mg Q.5D Take 1 Meth abby (ZYVOX) 600 09-[address] mg tablet 00:00: 04:59 (600 mg Hosp sonya 00 :00 total) by l mouth 2 (two) times a day for 14 days. levoFLOXaci 3-0 2023- No 750mg QD Take 1 Me thodi n 09-[address] (Levaquin) 00:00: 04:59 (750 mg Hos isabel 750 MG 00 :00 total) by l tablet mouth daily for 14 days. metroNIDAZO 3-0 2023- No 500mg [id number] Take 1 Methodi LE (FlagyL) 09-[id number] 500 MG 00:00: 04:59 3D (500 mg Hospita tablet 00 :00 total) by l mouth 3 (three) times a day for 14 days. linezolid 3-0 2023- No 600mg Q.5D Take 1 Meth abby (ZYVOX) 600 09-[address] mg tablet 00:00: 04:59 (600 mg Hosp sonya 00 :00 total) by l mouth 2 (two) times a day for 14 days. levoFLOXaci 2023-0 2023- No 750mg QD Take 1 Me thodi n 09-[address] (Levaquin) 00:00: 04:59 (750 mg Hos isabel 750 MG 00 :00 total) by l tablet mouth daily for 14 days. metroNIDAZO 2023-0 2023- No 500mg Q.[id number] Take 1 Methodi LE (FlagyL) 09-[id number] 500 MG 00:00: 04:59 3D (500 mg Hospita tablet 00 :00 total) by l mouth 3 (three) times a day for 14 days. linezolid 0 2022- No 600mg Q.5D Take 1 Meth [...] tablet mouth daily for 14 days. metroNIDAZO 2022-2022- No 500mg Q.[id number] Take 1 Methodi LE (FlagyL) 09-[id number] 500 MG 00:00: 04:59 3D (500 mg Hospita tablet 00 :00 total) by l mouth 3 (three) times a day for 14 days. insulin 0 Yes 26U Q.5D Inject Methodi GLARGINE 5-[address] (LANTUS) 11:39: (26 Units Hosp sonya 100 unit/mL 09 total) l injection under the (vial) skin 2 (two) times a day. insulin 0 Yes Inject Methodi lispro 5-[address] (HUMALOG 11:32: skin. Hospita U-100 20 l INSULIN SUBQ) insulin 0 Yes Inject Methodi GLARGINE 3-[address] (LANTUS) 20:22: skin. Hospita 100 unit/mL 02 l injection (vial) insulin 2022-0 Yes Inject Methodi lispro 3-[address] (HUMALOG 20:22: skin. Hospita U-100 02 l INSULIN SUBQ) polyethylen 2022-0 2022- No 17g QD Take [...] :00 30 days. l packet polyethylen 2022-0 202- No 17g QD Take 17 g Methodi e glycol 3-16 -[address] (MIRALAX) 00:00: 04:59 daily for Ho spita 17 gram 00 :00 30 days. l packet polyethylen 2022-2022- No 17g QD Take 17 g Methodi e glycol 3-16 -[address] (MIRALAX) 00:00: 04:59 daily for Ho spita 17 gram 00 :00 30 days. l packet cefTRIAXone 2022- No 2g Q24H Infuse 2 g Methodi (ROCEPHIN) 06-[address] 2 g in 100 00:00: 04:59 venous Hosp sonya ML Mini-Bag 00 :00 catheter l Plus daily for 14 days. cefTRIAXone 2022-2022- No 2g Q24H Infuse 2 g Methodi (ROCEPHIN) 06-[address] 2 g in 100 00:00: 04:59 venous Hosp sonya ML Mini-Bag 00 :00 catheter l Plus daily for 14 days. cefTRIAXone 2022-2022- No 2g Q24H Infuse 2 g Methodi (ROCEPHIN) 06-[address] 2 g in 100 00:00: 04:59 venous Hosp sonya ML Mini-Bag 00 :00 catheter l Plus daily for 14 days. cefTRIAXone 2022-0 2022- No 2g Q24H Infuse 2 g Methodi (ROCEPHIN) 06-[address] 2 g in 100 00:00: 04:59 venous Hosp sonya ML Mini-Bag 00 :00 catheter l Plus daily for 14 days. cefTRIAXone 2022-2022- No 2g Q24H Infuse 2 g Methodi (ROCEPHIN) 06-[address] 2 g in 100 00:00: 04:59 venous Hosp sonya ML Mini-Bag 00 :00 catheter l Plus daily for 14 days. HYDROcodone 2022-0 Yes [id number] 1{tbl} Q6H Take 1 M ethodi -acetaminop 3-[address] hen (SafeTool) 00:00: mouth Hospi ta 7.5-325 mg 00 [...] (POSS GREATER than 3).). HYDROcodone 2022-0 Yes [id number] 1{tbl} Q6H Take 1 M ethodi -acetaminop 3-[address] hen (SafeTool) 00:00: mouth Hospi ta 7.5-325 mg 00 [...] (POSS GREATER than 3).). HYDROcodone 2022-0 Yes [id number] 1{tbl} Q6H Take 1 M ethodi -acetaminop 3-[address] hen (SafeTool) 00:00: mouth Hospi ta 7.5-325 mg 00 every 6 l per tablet (six) hours as needed for severe pain .acute pain. Max Daily Amount: 4 tablets naloxone 3-0 Yes .2mg Infuse 0.5 Met hodi (NARCAN) 3-15 mL (0.[address] 0.4 mg/mL 00:00: total) Hospit a injection 00 into a l venous catheter once as needed for opioid reversal or respirator y depression (as needed for respirator y rate 8 per minute or less OR patient sommnolent and difficult to arouse (POSS GREATER than 3).). HYDROcodone 2022-0 Yes [id number] 1{tbl} Q6H Take 1 M ethodi -acetaminop 3-[address] hen (SafeTool) 00:00: mouth Hospi ta 7.5-325 mg 00 every 6 l per tablet (six) hours as needed for severe pain .acute pain. Max Daily Amount: 4 tablets naloxone 3-0 Yes .2mg Infuse 0.5 Met hodi (NARCAN) 3-15 mL (0.[address] 0.4 mg/mL 00:00: total) Hospit a injection 00 into a l venous catheter once as needed for opioid reversal or respirator y depression (as needed for respirator y rate 8 per minute or less OR patient sommnolent and difficult to arouse (POSS GREATER than 3).). HYDROcodone 2022-0 Yes [id number] 1{tbl} Q6H Take 1 M ethodi -acetaminop 3-[address] hen (SafeTool) 00:00: mouth Hospi ta 7.5-325 mg 00 [...] to arouse (POSS GREATER than 3).). bisacodyL 2022-0 2022- No 10mg Q24H Insert 1 Met hodi (DULCOLAX) 3-15 -[address] 10 mg 00:00: 04:59 y (10 mg Hospita suppository 00 :00 total) l into the rectum daily as needed for constipati on for up to 30 days. lactulose 2022-0 202- No 20g Q.5D Take 30 mL M [...] on for up to 30 days. lactulose 2022-2022- No 20g Q.5D Take 30 mL M [...] for up to 30 days. sennosides- 2022-0 3- No 2{tbl} Q.5D Take 2 M ethodi [...] for up to 30 days. sennosides- 2022-0 202- No 2{tbl} Q.5D Take 2 M ethodi [...] per tablet day for 30 days. bisacodyL 2022- No 10mg Q24H Insert 1 Met hodi (DULCOLAX) -15 -[address] 10 mg 00:00: 04:59 y (10 mg Hospita suppository 00 :00 total) l into the rectum daily as needed for constipati on for up to 30 days. lactulose No 20g Q.5D Take 30 mL M [...] for 30 days. Humalog Humalog No Humalog [facility] KwikPen KwikPen KwikPen (U-100) 100 (U-100) 100 (U-100) unit/mL unit/mL 100 subcutaneou subcutaneou unit/mL s half-unit s half-unit subcutaneo pen Inject pen Inject us by by half-unit subcutaneou subcutaneou pen Inject s route. s route. by subcutaneo us route. Coty Florest No Coty Buenrostro U-100 U-100 U-100 Clinic Insulin 100 Insulin [...] pressure Diastolic blood 2022-09-08 12:46:54 81 mm[Hg] [facility] pressure Heart rate 2022-09-08 12:46:54 88 /min Methodis [facility] Body temperature 2022-09-08 12:46:54 36.94 Latricia [facility] Respiratory rate 2022-09-08 12:46:54 18 /min [facility] Oxygen saturation in 2022-09-08 12:46:54 99 /min [facility] Arterial blood by Pulse oximetry Systolic blood 2022-09-07 21:09:01 142 mm[Hg] Method ist Hospital pressure Diastolic blood 2022-09-07 21:09:01 74 mm[Hg] [facility] Heart rate 2022-09-07 21:09:01 80 /min [facility] Body temperature 2022-09-07 21:09:01 36.83 Latricia [facility] Respiratory rate 2022-09-07 21:09:01 16 /min [facility] Oxygen saturation in 2022-09-07 21:09:01 100 /min [facility] Arterial blood by Pulse oximetry Body weight 2022-09-02 11:00:00 102.3 kg [facility] BMI 2022-09-02 11:00:00 32.36 kg/m2 [facility] Body height 2022-09-02 04:07:00 177.8 cm [facility] Systolic blood 2022-08-05 22:33:32 119 mm[Hg] Method is Hospital pressure Diastolic blood 2022-08-05 22:33:32 71 mm[Hg] [facility] pressure Heart rate 2022-08-05 22:33:32 95 /min [facility] Body temperature 2022-08-05 22:33:32 36.72 Latricia [facility] Respiratory rate 2022-08-05 22:33:32 19 /min [facility] Oxygen saturation in 2022-08-05 22:33:32 100 /min [facility] Arterial blood by Pulse oximetry Body height 2022-06-17 04:34:00 177.8 cm [facility] Body weight 2022-06-17 04:34:00 157.8 kg [facility] BMI 2022-06-17 04:34:00 49.92 kg/m2 [facility] Procedures Procedure Date / Time Performing Clinician Source Performed POC GLUCOSE 2022-09-08 17:31:00 Yusuf Brady POC GLUCOSE 2022-09-08 13:53:00 Yusuf Bradyda POC GLUCOSE 2022-09-08 12:48:00 Moosavi, Yusuf [facility] sp[facility] CBC WITH PLATELET AND 2022-09-08 10:45:00 [facility] DIFFERENTIAL BASIC METABOLIC PANEL 2022-09-08 10:45:00 Elvira Rodriguezhad [facility] ESTIMATED GFR 2022-09-08 10:45:00 Michael[facility] MANUAL DIFFERENTIAL 2022-09-08 10:45:00 Michael, Elvira Prasadhad [facility] POC GLUCOSE 2022-09-08 01:19:00 Moosavi, Yusuf Hinduism [facility] sp[facility] [place] POC GLUCOSE 2022-09-07 22:22:00 Moosavi, Yusuf [facility] [place] POC GLUCOSE 2022-09-07 16:17:00 Moosavi, Yusuf [facility]ism [facility] [place] POC GLUCOSE 2022-09-07 12:24:00 Moosachata, Yusuf [facility]ism [facility] [place] CBC WITH PLATELET AND 2022-09-07 09:47:00 [facility] DIFFERENTIAL BASIC METABOLIC PANEL 2022-09-07 09:47:00 [facility] CREATINE KINASE, TOTAL 2022-09-07 09:47:00 Jailyn Idalia Sergio [facility] ([facility]K) ESTIMATED GFR 2022-09-07 09:47:00 [facility] PICC INSERTION REQUEST 2022-09-07 03:03:58 Dean Shay [facility] POC GLUCOSE 2022-09-07 02:59:00 Moosavi, Yusuf [facility] sp[facility] [place] POC GLUCOSE 2022-09-07 01:08:00 Moosavi, Yusuf [facility] [place] POC GLUCOSE 2022-09-06 22:29:00 Moosavi, Yusuf [facility]ism [facility] sp[facility] [place] POC GLUCOSE 2022-09-06 17:04:00 Moosavi, Yusuf [facility]ism [facility] [place] POC GLUCOSE 2022-09-06 13:20:00 Moosavi, Yusuf [facility] [place] BASIC METABOLIC PANEL 2022-09-06 09:05:00 [facility] WITH [facility] AND 2022-09-06 09:05:00 Michael [facility] DIFFERENTIAL ESTIMATED GFR 2022-09-06 09:05:00 [place] Bambi [facility] POC GLUCOSE 2022-09-06 04:09:00 Moosavi, Yusuf [facility] [place] POC GLUCOSE 2022-09-06 00:34:00 Moosavi, Yusuf [facility] [place] POC GLUCOSE 2022-09-05 22:53:00 Moosavi, Yusuf [facility] [place] POC GLUCOSE 2022-09-05 18:00:00 Moosavi, Yusuf [facility] [place] TTE COMPLETE, WO CONTRAST, 2022-09-05 15:28:21 Idalia Glaser [facility] W DOPPLER ([id number]) CBC WITH PLATELET AND 2022-09-05 15:02:00 Michael [facility] DIFFERENTIAL BASIC METABOLIC PANEL 2022-09-05 13:38:00 [place] [facility] ESTIMATED GFR 2022-09-05 13:38:00 [place] [facility] POC GLUCOSE 2022-09-05 13:27:00 Moosavi, Yusuf [facility] [place] CREATININE LEVEL 2022-09-05 10:53:00 [facility] 2022-09-05 10:53:00 [facility] POC GLUCOSE 2022-09-05 06:19:00 Moosavi, Yusuf [facility] sp[facility] [place] POC GLUCOSE 2022-09-05 01:49:00 Moosavi, Yusuf [facility] [place] POC GLUCOSE 2022-09-04 23:37:00 Moosavi, Yusuf [facility] [place] POC GLUCOSE 2022-09-04 19:17:00 Moosavi, Yusuf [facility] [place] POC GLUCOSE 2022-09-04 18:25:00 Moosavi, Yusuf [facility] [place] POC GLUCOSE 2022-09-04 13:58:00 Moosavi, Yusuf [facility] [place] BLOOD CULTURE, AEROBIC & 2022-09-04 08:11:00 [facility] ANAEROBIC CREATININE LEVEL 2022-09-04 08:10:00 [facility] VANCOMYCIN LEVEL, RANDOM 2022-09-04 08:10:00 [facility] ESTIMATED GFR 2022-09-04 08:10:00 [facility] POC GLUCOSE 2022-09-04 02:59:00 Moosavi, Yusuf Hinduism [facility] sp[facility] [place] POC GLUCOSE 2022-09-04 01:50:00 Moosavi, Yusuf Hinduism [facility] sp[facility] [place] POC GLUCOSE 2022-09-03 22:20:00 Moosavi, Yusuf [facility]ism [facility] [place] POC GLUCOSE 2022-09-03 17:45:00 Moosavi, Yusuf Hinduism [facility] [place] POC GLUCOSE 2022-09-03 14:43:00 Moosavi, Yusuf [facility] [place] VANCOMYCIN LEVEL, RANDOM 2022-09-03 13:57:00 [facility] CREATININE LEVEL 2022-09-03 13:57:00 [facility] ESTIMATED GFR 2022-09-03 13:57:00 [facility] POC GLUCOSE 2022-09-03 13:22:00 Moosavi, Yusuf Hinduism [facility] sp[facility] [place] POC GLUCOSE 2022-09-03 03:49:00 Moosavi, Yusuf [facility] [place] MRI LOWER EXTREMITY JOINT 2022-09-03 03:30:09 [facility] Chika MRI LOWER EXTREMITY W WO 2022-09-03 03:29:34 [facility] CONTRAST LEFT POC GLUCOSE 2022-09-03 01:20:00 Moosavi, Yusuf [facility] [place] METHICILLIN-RESISTANT 2022-09-03 00:58:00 [facility] STAPHYLOCOCCUS AUREUS (MRSA), ANIRUDH POC GLUCOSE 2022-09-02 23:19:00 Moosavi, Yusuf [facility] [place] POC GLUCOSE 2022-09-02 22:05:00 Moosavi, Yusuf Hinduism spital [place] POC GLUCOSE 2022-09-02 19:18:00 Moosavi, Yusuf [facility] [place] POC GLUCOSE 2022-09-02 18:24:00 Moosavi, Yusuf [facility] [place] AEROBIC CULTURE 2022-09-02 17:37:00 Menchin, [facility] GRAM STAIN 2022-09-02 17:37:00 [facility] ANAEROB[facility] CULTURE 2022-09-02 17:37:00 [facility] POC GLUCOSE 2022-09-02 15:16:00 [facility] CBC WITH PLATELET AND 2022-09-02 11:35:00 [facility] DIFFERENTIAL COMPREHENSIVE METABOLIC 2022-09-02 11:35:00 [facility] PANEL LACTIC ACID LEVEL, SEPSIS 2022-09-02 11:35:00 Murphy Ramon [facility] - NOW AND REPEAT 2X EVERY Go 3 HOURS ESTIMATED GFR 2022-09-02 11:35:00 [facility] HEMOGLOBIN A1C 2022-09-02 11:35:00 [facility] URINE CULTURE 2022-09-02 11:32:00 [facility] Go URINALYSIS SCREEN AND 2022-09-02 11:32:[address] [facility] MICROSCOPY, WITH REFLEX TO Go CULTURE POC GLUCOSE 2022-09-02 08:30:00 Moosachata, Yusuf [facility] spital Shadaab LACTIC ACID LEVEL, SEPSIS 2022-09-02 08:04:00 Murphy Ramon [facility] - NOW AND REPEAT 2X EVERY Go 3 HOURS BLOOD CULTURE, AEROBIC & 2022-09-02 05:01:00 [facility] ANAEROBIC Go BLOOD CULTURE, AEROBIC & 2022-09-02 05:00:00 [facility] ANAEROBIC Go LACTIC ACID LEVEL, SEPSIS 2022-09-02 05:00:00 [facility] - NOW AND REPEAT 2X EVERY Go 3 HOURS CBC WITH PLATELET AND 2022-09-02 05:00:00 [facility] DIFFERENTIAL Go COMPREHENSIVE METABOLIC 2022-09-02 05:00:00 [facility] PANEL Go PROTHROMBIN TIME WITH INR 2022-09-02 05:00:00 [facility] Go PARTIAL THROMBOPLASTIN 2022-09-02 05:00:00 [facility] TIME (PTT) Go ESTIMATED GFR 2022-09-02 05:00:00 [facility] Go BLOOD CULTURE, AEROBIC & 2022-08-27 08:24:00 [facility] [place] LACTIC ACID, I-STAT 2022-08-27 07:46:00 [facility] BLOOD CULTURE, AEROBIC & 2022-08-27 07:05:00 [facility] Phoenix[facility] ANAEROBIC Kristan CBC WITH PLATELET AND 2022-08-27 07:05:00 [facility] Kristan COMPREHENSIVE METABOLIC 2022-08-27 07:05:00 [facility] PANEL Kristan ESTIMATED GFR 2022-08-27 07:05:00 [facility] Kristan MANUAL DIFFERENTIAL 2022-08-27 07:05:00 [facility] XR FOOT 2 VW LEFT 2022-08-27 05:27:45 [facility]SE 2022-06-23 21:22:00 Marga, [facility] VENIPUNC NEED PHYS 2022-06-23 19:40:32 Altre, Shellaise [facility] SKILL,DX OR RX POC GLUCOSE 2022-06-23 17:09:00 Count Includes [facility] POC GLUCOSE 2022-06-23 13:10:00 Count Includes [facility] BASIC METABOLIC PANEL 2022-06-23 10:48:00 Keith Atkinson [facility] CBC WITH PLATELET AND 2022-06-23 10:48:00 [facility] DIFFERENTIAL ESTIMATED GFR 2022-06-23 10:48:00 Keith Atkinson [facility] POC GLUCOSE 2022-06-23 10:01:00 [facility] POC GLUCOSE 2022-06-23 02:27:00 Count Includes [facility] POC GLUCOSE 2022-06-22 21:26:00 Count Includes [facility] POC GLUCOSE 2022-06-22 16:54:00 Count Includes [facility] POC GLUCOSE 2022-06-22 12:51:00 Count Includes [facility] POC GLUCOSE 2022-06-22 08:09:00 ZamoraDavid garcia Hinduism Ho spital Balwinder POC GLUCOSE 2022-06-22 01:38:00 ZamoraDavid garcia [facility]ism Ho spital Balwinder POC GLUCOSE 2022-06-21 21:53:00 ZamoraDavid Hinduism Ho spital Balwinder POC GLUCOSE 2022-06-21 17:36:00 ZamoraDavid Hinduism Ho spital Balwinder POC GLUCOSE 2022-06-21 12:40:00 ZamoraDavid garcia Hinduism Ho spital Balwinder POC GLUCOSE 2022-06-21 09:38:00 ZamoraDavid Hinduism Ho spital Balwinder POC GLUCOSE 2022-06-21 01:21:00 ZamoraDavid garcia Hinduism Ho spital Balwinder POC GLUCOSE 2022-06-20 20:46:00 Zamora David Hinduism Ho spital Balwinder POC GLUCOSE 2022-06-20 13:09:00 Zamora, David Bateman Ho spital Balwinder COMPREHENSIVE METABOLIC 2022-06-20 09:10:00 Keith Atkinson [facility] PANEL Brandee ESTIMATED GFR 2022-06-20 09:10:00 Nadege Obrien spital VANCOMYCIN LEVEL, TROUGH 2022-06-20 09:10:00 Keith Atkinson [facility] CBC WITH PLATELET AND 2022-06-20 09:10:00 Zamora, David [facility] DIFFERENTIAL Balwinder POC GLUCOSE 2022-06-20 03:12:00 Zamora, David Bateman Ho spital Balwinder POC GLUCOSE 2022-06-19 23:02:00 Zamora, Davidfernando Bateman Ho spital Balwinder POC GLUCOSE 2022-06-19 18:12:00 Zamora, David Ghosh spital Balwinder XR FOOT 3+ VW LEFT 2022-06-19 15:16:52 Demetrio bebo [facility] POC GLUCOSE 2022-06-19 14:43:00 Zamora, David Ghosh spital Balwinder FUNGUS CULTURE 2022-06-19 14:22:00 Keith Atkinson spital [employer] CULTURE 2022-06-19 14:22:00 Keith Atkinson joselito Irvin GRAM STAIN 2022-06-19 14:22:00 Keith Atkinson SURGICAL PATHOLOGY REQUEST 2022-06-19 13:59:00 Zamora, [facility] AMPUTATION, FOOT, 2022-06-19 13:50:00 Demetrio [facility] TRANSMETATARSAL [facility] ANAEROBIC CULTURE 2022-06-19 13:22:00 Demetrio [facility] AEROBIC CULTURE 2022-06-19 13:22:00 Keith Atkinson joselito Irvin FUNGUS SMEAR 2022-06-19 13:22:00 Keith Atkinson spiviv [employer] STAIN 2022-06-19 13:22:00 Keith Atkinson Ho spital Brandee COMPREHENSIVE METABOLIC 2022-06-19 12:12:00 Demetrio bebo [facility] PANEL Brandee CBC WITH PLATELET AND 2022-06-19 12:12:00 [facility]Julius [facility] DIFFERENTIAL Brandee ESTIMATED GFR 2022-06-19 12:12:00 [facility] PROTHROMBIN TIME WITH INR 2022-06-19 12:12:00 [facility] Yusuf POC GLUCOSE 2022-06-19 09:46:00 [facility] Yusuf ESTIMATED GFR 2022-06-19 08:29:00 [facility] Yusuf POC GLUCOSE 2022-06-19 05:34:00 [facility] Yusuf POC GLUCOSE 2022-06-19 02:27:00 [facility] Yusuf POC GLUCOSE 2022-06-18 22:10:00 [facility] Yusuf BASIC METABOLIC PANEL 2022-06-18 20:30:00 [facility] Brandee CBC WITH PLATELET AND 2022-06-18 20:30:00 Demetrio, [facility] DIFFERENTIAL Brandee ESTIMATED GFR 2022-06-18 20:30:00 [facility] Yusuf POC GLUCOSE 2022-06-18 14:21:00 [facility] Yusuf ID AN ELECTIVE 2022-06-18 12:59:18 Lilian Pineda Ho spital [employer] [place] POC GLUCOSE 2022-06-18 12:29:00 [facility] Yusuf POC GLUCOSE 2022-06-18 03:30:00 [facility] Yusuf POC GLUCOSE 2022-06-17 22:13:00 [facility] Yusuf POC GLUCOSE 2022-06-17 18:07:00 [facility] Yusuf XR FOOT 3+ VW LEFT 2022-06-17 16:53:57 Demetrio [facility] SURGICAL PATHOLOGY REQUEST 2022-06-17 15:10:00 [facility] Yusuf POC GLUCOSE 2022-06-17 14:35:00 [facility] Yusuf POC GLUCOSE 2022-06-17 13:35:00 [facility] Yusuf FUNGUS CULTURE 2022-06-17 13:12:00 Keith [facility] [employer] CULTURE 2022-06-17 13:12:00 [facility] [place] GRAM STAIN 2022-06-17 13:12:00 [facility] [employer] [facility], FOOT, 2022-06-17 12:43:00 Demetrio [facility] TRANSMETATARSAL [facility] ANAEROBIC CULTURE 2022-06-17 12:12:00 Demetrio [facility] AEROBIC CULTURE 2022-06-17 12:12:00 [facility] [employer] STAIN 2022-06-17 12:12:00 Demetrio [employer] [employer] [facility] [place] ABO AND RH CONFIRMATION BY 2022-06-17 12:08:00 Nadege Obrien [facility] PROTOCOL PROTHROMBIN TIME WITH INR 2022-06-17 11:45:00 Keith Atkinson [facility] TYPE AND SCREEN 2022-06-17 11:45:00 Keith Atkinson spital Kunjan POC GLUCOSE 2022-06-17 11:42:00 Nadege Obrien US DUPLEX ARTERIAL LOWER 2022-06-17 10:30:00 Nadege Obrien [facility] EXTREMITY LEFT CBC HEMOGRAM 2022-06-17 10:20:00 Nadege Obriental MAGNESIUM LEVEL 2022-06-17 10:20:00 Nadege Obrien spital THYROID STIMULATING 2022-06-17 10:20:00 [facility] HORMONE CREATINE KINASE, TOTAL 2022-06-17 10:20:00 [facility] ([facility]) VITAMIN B12 LEVEL 2022-06-17 10:20:00 [facility] Brandee B NATRIURETIC PEPTIDE 2022-06-17 10:20:00 [facility] PROCALCITONIN 2022-06-17 10:20:00 Demetrio[facility] spital Brandee COMPREHENSIVE METABOLIC 2022-06-17 10:20:00 [facility] PANEL ESTIMATED GFR 2022-06-17 10:20:00 [facility] AMYL[facility] LEV[facility] 2022-06-17 10:20:00 [facility] spital FERRITIN LEVEL 2022-06-17 10:20:00 [facility] T[facility] IRON BINDING 2022-06-17 10:20:00 [facility] CAPACITY URINE CULTURE 2022-06-17 08:11:00 [facility] spital CT LOWER EXTREMITY WO 2022-06-17 08:09:39 [facility] CONTRAST LEFT CT HEAD WO CONTRAST 2022-06-17 07:54:30 [facility] URINALYSIS SCREEN AND 2022-06-17 07:40:00 [facility] MICROSCOPY, WITH REFLEX TO CULTURE SODIUM LEVEL, URINE, 2022-06-17 07:40:00 [facility] RANDOM CHLORIDE LEVEL, URINE, 2022-06-17 07:40:00 [facility] RANDOM OSMOLALITY, URINE 2022-06-17 07:40:00 [facility] HCG QUALITATIVE, URINE 2022-06-17 07:40:00 [facility] SCREEN ECG 12-LEAD 2022-06-17 06:15:21 [facility] spital METHICILLIN-RESISTANT 2022-06-17 05:35:00 [facility] STAPHYLOCOCCUS AUREUS (MRSA), ANIRUDH LACTIC ACID LEVEL 2022-06-17 05:35:00 [facility] PROCALCITONIN 2022-06-17 05:35:[address] [facility] XR FOOT 3+ VW LEFT 2022-06-17 04:01:51 [facility] Rogelio TROPONIN T 2022-06-17 03:46:00 Keith Atkinson [facility] spital Kunjan TROPONIN, I-STAT 2022-06-17 00:39:00 [facility] o[facility] Kunjan SEDIMENTATION RATE 2022-06-17 00:39:00 [facility] Rogelio C-REACTIVE PROTEIN 2022-06-17 00:39:00 [facility] Rogelio CT RENAL STONE PROTOCOL 2022-06-16 23:59:00 [facility] Rogelio XR CHEST 2 VW 2022-06-16 23:58:45 [facility] spital Rogelio COVID-19, INFLUENZA A&B, 2022-06-16 21:58:00 Ishaan deng [facility] AND RSV QUALITATIVE RT-PCR Rogelio CBC WITH PLATELET AND 2022-06-16 21:58:00 [facility] DIFFERENTIAL Rogelio COMPREHENSIVE METABOLIC 2022-06-16 21:58:00 [facility] PANEL Rogelio TROPONIN, I-STAT 2022-06-16 21:58:00 Keith Atkinson [facility] ospital Brandee B NATRIURETIC PEP, I-STAT 2022-06-16 21:58:00 [facility] Rogelio AMYLASE LEVEL 2022-06-16 21:58:00 [facility] Rogelio ESTIMATED GFR 2022-06-16 21:58:00 [facility] spital Rogelio MANUAL DIFFERENTIAL 2022-06-16 21:58:00 [facility] Rogelio ECG ED PRELIMINARY 2022-06-16 21:57:50 [facility] INTERPRETATION Rogelio BLOOD CULTURE, AEROBIC & 2022-06-16 21:05:00 Ishaan Tillman [facility] ANAEROBIC Rogelio BLOOD CULTURE, AEROBIC & 2022-06-16 21:00:00 Ishaan Tillman [facility] ANAEROBIC Rogelio ECG 12-LEAD 2022-06-15 21:51:22 Nadege Obrien Ho spital [id number] 2022-02-12 00:00:00 [facility] [id number] 2022-02-12 00:00:00 [facility] [id number] 2022-02-08 00:00:00 WAU [facility] [id number] 2021-11-30 00:00:00 BOKSY [facility] [id number] 2021-11-27 00:00:00 MARY.01 [facility] [id number] 2021-11-27 00:00:00 MARY.01 [facility] [id number] 2021-10-15 00:00:00 NASLI.01 [facility] [id number] 2021-10-14 00:00:00 NASLI.01 [facility] [id number] 2021-10-12 00:00:00 NASLI.01 [facility] [id number] 2021-10-08 00:00:00 VUPH [facility] [id number] 2021-10-08 00:00:00 VUPH [facility] [id number] 2021-10-08 00:00:00 VUPH [facility] Plan of Care Planned Activity Planned Date Details Comments Source Future Scheduled 2022-10-11 COVID-19 VACCINE (#1) [facility] Test 15:56:07 [code = COVID-19 VACCINE (#1)] Future Scheduled 2022-10-11 Pneumococcal Vaccine: [facility] Test 15:56:07 Pediatrics (0 to 5 Years) and At-Risk Patients (6 to 64 Years) (1 - PCV) [code = Pneumococcal Vaccine: Pediatrics (0 to 5 Years) and At-Risk Patients (6 to 64 Years) (1 - PCV)] Future Scheduled 2022-10-11 DIABETES: RETINAL EYE [facility] Test 15:56:07 EXAM [code = DIABETES: RETINAL EYE EXAM] Future Scheduled 2022-10-11 URINE [facility]ALBUMIN [facility] Test 15:56:07 [code = URINE MICROALBUMIN] Future Scheduled 2022-10-11 Hepatitis C screening [facility] Test 15:56:07 (procedure) [code = 179816327] Future Scheduled 2022-10-11 [facility] Test 15:56:07 malignant neoplasm of cervix (procedure) [code = 069849402] Future Scheduled 2022-10-11 [facility]AST [facility] Test 15:56:07 SCREENING [code = BREAST CANCER SCREENING] Future Scheduled 2022-10-11 INFLUENZA VACCINE [facility] Test 15:56:07 [code = INFLUENZA VACCINE] Future Scheduled 2022-10-11 [facility] Test 15:56:07 [code = DIABETIC FOOT EXAM] Future Scheduled 2022-10-01 COVID-19 VACCINE (#1) [facility] Test 13:25:54 [code = COVID-19 VACCINE (#1)] Future Scheduled 2022-10-01 Pneumococcal Vaccine: [facility] Test 13:25:54 Pediatrics (0 to 5 Years) and At-Risk Patients (6 to 64 Years) (1 - PCV) [code = Pneumococcal Vaccine: Pediatrics (0 to 5 Years) and At-Risk Patients (6 to 64 Years) (1 - PCV)] Future Scheduled 2022-10-01 DIABETES: RETINAL EYE [facility] Test 13:25:54 EXAM [code = DIABETES: RETINAL EYE EXAM] Future Scheduled 2022-10-01 [facility] Test 13:25:54 [code = URINE MICROALBUMIN] Future Scheduled 2022-10-01 Hepatitis C screening [facility] Test 13:25:54 (procedure) [code = 034938727] Future Scheduled 2022-10-01 [facility] Test 13:25:54 malignant neoplasm of cervix (procedure) [code = 951027133] Future Scheduled 2022-10-01 [facility] Test 13:25:54 SCREENING [code = BREAST CANCER SCREENING] Future Scheduled 2022-10-01 INFLUENZA VACCINE [facility] Test 13:25:54 [code = INFLUENZA VACCINE] Future Scheduled 2022-10-01 DIABETIC FOOT EXAM [facility] Test 13:25:54 [code = DIABETIC FOOT EXAM] Future Scheduled 2022-09-17 COVID-19 VACCINE (#1) [facility] Test 09:10:33 [code = COVID-19 VACCINE (#1)] Future Scheduled 2022-09-17 Pneumococcal Vaccine: [facility] Test 09:10:33 Pediatrics (0 to 5 Years) and At-Risk Patients (6 to 64 Years) (1 - PCV) [code = Pneumococcal Vaccine: Pediatrics (0 to 5 Years) and At-Risk Patients (6 to 64 Years) (1 - PCV)] Future Scheduled 2022-09-17 DIABETES: RETINAL EYE [facility] Test 09:10:33 EXAM [code = DIABETES: RETINAL EYE EXAM] Future Scheduled 2022-09-17 URINE MICROALBUMIN [facility] Test 09:10:33 [code = URINE MICROALBUMIN] Future Scheduled 2022-09-17 Hepatitis C screening [facility] Test 09:10:33 (procedure) [code = 181367941] Future Scheduled 2022-09-17 Screening for [facility] Test 09:10:33 malignant neoplasm of cervix (procedure) [code = 880560189] Future Scheduled 2022-09-17 BREAST CANCER [facility] Test 09:10:33 SCREENING [code = BREAST CANCER SCREENING] Future Scheduled 2022-09-17 INFLUENZA VACCINE [email or web address] Test 09:10:33 [code = INFLUENZA VACCINE] Future Scheduled 2022-09-17 DIABETIC FOOT EXAM [facility] Test 09:10:33 [code = DIABETIC FOOT EXAM] Diagnostic Test 2022-09-17 HbA1c (hemoglobin [facility] Pending 00:00:00 A1c), blood [code = HbA1c (hemoglobin A1c), blood] Diagnostic Test 2022-09-17 glucose, fingerstick, [facility] Pending 00:00:00 blood [code = glucose, fingerstick, blood] Future Scheduled 2022-09-07 COVID-19 VACCINE (#1) [facility] Test 14:47:37 [code = COVID-19 VACCINE (#1)] Future Scheduled 2022-09-07 Pneumococcal Vaccine: [facility] Test 14:47:37 Pediatrics (0 to 5 Years) and At-Risk Patients (6 to 64 Years) (1 - PCV) [code = Pneumococcal Vaccine: Pediatrics (0 to 5 Years) and At-Risk Patients (6 to 64 Years) (1 - PCV)] Future Scheduled 2022-09-07 DIABETES: RETINAL EYE [facility] Test 14:47:37 EXAM [code = DIABETES: RETINAL EYE EXAM] Future Scheduled 2022-09-07 [facility] Test 14:47:37 [code = URINE MICROALBUMIN] Future Scheduled 2022-09-07 [facility] Test 14:47:37 (procedure) [code = 927683220] Future Scheduled 2022-09-07 [facility] Test 14:47:37 malignant neoplasm of cervix (procedure) [code = 829907859] Future Scheduled 2022-09-07 BREAST CANCER [facility] Test 14:47:37 SCREENING [code = BREAST CANCER SCREENING] Future Scheduled 2022-09-07 INFLUENZA VACCINE [facility] Test 14:47:37 [code = INFLUENZA VACCINE] Future Scheduled 2022-09-07 [facility] Test 14:47:37 [code = DIABETIC FOOT EXAM] Future Scheduled 2022-08-10 COVID-19 VACCINE (#1) [facility] Test 09:04:27 [code = COVID-19 VACCINE (#1)] Future Scheduled 2022-08-10 Pneumococcal Vaccine: [facility] Test 09:04:27 Pediatrics (0 to 5 Years) and At-Risk Patients (6 to 64 Years) (1 - PCV) [code = Pneumococcal Vaccine: Pediatrics (0 to 5 Years) and At-Risk Patients (6 to 64 Years) (1 - PCV)] Future Scheduled 2022-08-10 DIABETES: RETINAL EYE [facility] Test 09:04:27 EXAM [code = DIABETES: RETINAL EYE EXAM] Future Scheduled 2022-08-10 [facility] Test 09:04:27 [code = URINE MICROALBUMIN] Future Scheduled 2022-08-10 Hepatitis C screening [facility] Test 09:04:27 (procedure) [code = 210384896] Future Scheduled 2022-08-10 [facility] Test 09:04:27 malignant neoplasm of cervix (procedure) [code = 411311159] Future Scheduled 2022-08-10 [facility] Test 09:04:27 SCREENING [code = BREAST CANCER SCREENING] Future Scheduled 2022-08-10 INFLUENZA VACCINE [facility] Test 09:04:27 [code = INFLUENZA VACCINE] Future Scheduled 2022-08-10 DIABETIC FOOT EXAM [facility] Test 09:04:27 [code = DIABETIC FOOT EXAM] Encounters Start End Encounter Admission Attending Care Care Encounter Source Date/Time Date/Time Type Type Clinicians Facility Department ID 2022-09-20 2022-09-20 Outpatient [facility] [id number] [facility] 00:00:00 00:00:00 06 Clinic 2022-09-17 2022-09-17 Outpatient [facility] [id number] [facility] 00:00:00 00:00:00 0609 Clinic 2022-09-17 2022-09-17 Tahira [facility] [place] - [facility] 09 [facility] 00:00:00 00:00:00 [facility] Musa Emerson FIRER RETORT: Primary [facility], [address], [place] [address] , Ph. 2022-09-16 2022-09-16 Outpatient [facility] [id number] [facility] 00:00:00 00:00:00 0608 Clinic 2022-09-15 2022-09-15 Outpatient [facility] [id number] [facility] 00:00:00 00:00:00 0607 [facility] 2022-09-01 2022-09-08 [facility] SchuylerMason 1.2.840.1 [id number] Methodi 23:08:00 16:41:00 Encounter PeemikeMalcolmgiovanny Sanchezab [address]2678.1.[address] 3.430.2.7 Hospit a .3.663780 l .8 2022-09-01 2022-09-08 [facility] [id number] Methodi 23:08:00 16:41:00 Encounter PeeshadiYusuf brizuela Krishdaab 02946.1.[address] 3.430.2.7 Hospit a .3.325762 l .8 2022-09-08 2022-09-08 Orders Navarrete, Evelia 1.2.840.1 [id number] Methodi 00:00:00 00:00:[address] 3.430.2.7 Hospit a .3.998350 l .8 2022-09-08 2022-09-08 Orders Navarrete, Evelia 1.2.840.1 [id number] Methodi 00:00:00 00:00:[address] 3.430.2.7 Hospit a .3.774873 l .8 2022-09-02 2022-09-02 Travel 1.2.840.1 1.2.220.049 6051 [id number] Methodi 00:00:00 00:00:[address] 3.430.2.7 0.2.7.3.698 Ho spita .3.478712 084.8 l .8 2022-09-02 2022-09-02 Travel 1.2.840.1 1.2.062.387 3511 341548 Methodi 00:00:00 00:00:[address] 3.430.2.7 0.2.7.3.698 Ho spita .3.049707 084.8 l .8 2022-08-26 2022-08-27 Emergency Nweze, 1.2.840.1 [id number] 2099 [id number] Methodi 23:54:00 04:10:[address] Kristan 3.430.2.7 Hosp sonya .3.820370 l .8 2022-08-26 2022-08-27 Emergency Nweze, 1.2.840.1 [id number] 2099 [id number] Methodi 23:54:00 04:10:[address] Kristan 3.430.2.7 Hosp sonya .3.838913 l .8 2022-08-26 2022-08-26 Travel 1.2.840.1 1.2.190.893 1132 [id number] Methodi 00:00:00 00:00:[address] 3.430.2.7 0.2.7.3.698 Ho spita .3.228810 084.8 l .8 2022-08-26 2022-08-26 Travel 1.2.840.1 1.2.862.611 8094 471384 Methodi 00:00:00 00:00:[address] 3.430.2.7 0.2.7.3.698 Ho spita .3.403627 084.8 l .8 2022-08-12 2022-08-12 Abstract Andria Galindo 1.2.840.1 [id number] 2 [id number] Methodi 00:00:00 00:00:[address] 3.430.2.7 Hospit a .3.159644 l .8 2022-08-12 2022-08-12 Abstract Andria Galindo 1.2.840.1 [id number] 2 [id number] Methodi 00:00:00 00:00:[address] 3.430.2.7 Hospit a .3.402179 l .8 2022-08-10 2022-08-11 Emergency EM Carol [facility] [id number] [facility] 18:52:00 00:15:[address] 2022-08-05 2022-08-05 Emergency Mantena, 1.2.840.1 [id number] Methodi 18:57:00 20:12:[address] 3.430.2.7 Hospit a .3.160606 l .8 2022-08-05 2022-08-05 Emergency Mantena, 1.2.840.1 [id number] 735 [id number] Methodi 18:57:00 20:12:[address] 3.430.2.7 Hospit a .3.772794 l .8 2022-08-05 2022-08-05 Travel 1.2.840.1 1.2.235.485 5053 190077 Methodi 00:00:00 00:00:[address] 3.430.2.7 0.2.7.3.698 Ho spita .3.061496 084.8 l .8 2022-08-05 2022-08-05 Travel 1.2.840.1 1.2.195.393 6938 161017 Methodi 00:00:00 00:00:[address] 3.430.2.7 0.2.7.3.698 Ho spita .3.564204 084.8 l .8 2022-06-29 2022-06-29 Orders Obtimi Hemalatha 1.2.840.1 [id number] 977 [id number] Methodi 00:00:00 00:00:[address] 3.430.2.7 Hospit a .3.944789 l .8 2022-06-29 2022-06-29 Orders Obtimi Hemalatha 1.2.840.1 [id number] 414 [id number] Methodi 00:00:00 00:00:[address] 3.430.2.7 Hospit a .3.196323 l .8 2022-06-16 2022-06-23 [facility] Ishaan Tillman 1.2.840.1 1 [id number] Methodi 15:30:00 20:22:00 Encounter Cecilia Obrien 14512.1.[address] Micah Nadege 3.430.2.7 Hospita Den Lea Yusuf .3.782460 l David Zamora .8 Nan Gresham 2022-06-16 2022-06-23 [facility] Ishaan Tillman 1.2.840.1 1 [id number] Methodi 15:30:00 20:22:00 Encounter Cecilia Obrien 86755.1.[address] Nadege Obrien 3.430.2.7 Hospita Den Lea Yusuf .3.923320 l ZamoraPetersonDavidfernando Allenra .8 Nan Gresham 2022-06-19 2022-06-19 Surgery Demetrio, 1.2.840.1 [id number] 6355 Methodi 08:00:00 09:20:[address] Kunjan 3.430.2.7 Hospit a .3.162356 l .8 2022-06-19 2022-06-19 Surgery Demetrio, 1.2.840.1 [id number] 8722 Methodi 08:00:00 09:20:[address] Kunjan 3.430.2.7 Hospit a .3.791357 l .8 2022-06-19 2022-06-19 Anesthesia Tu, Cleo 1.2.840.1 [id number] 958 [id number] Methodi 07:50:00 08:39:00 Event Lili, Cong Redd 00055.1.[address] 3.430.2.7 Hospit a .3.293511 l .8 2022-06-19 2022-06-19 Anesthesia Tu, Cleo 1.2.840.1 [id number] 697 [id number] Methodi 07:50:00 08:39:00 Event Lili, Cong Redd 59007.1.[address] 3.430.2.7 Hospit a .3.849041 l .8 2022-06-17 2022-06-17 Surgery Demetrio, 1.2.840.1 [id number] 0167 Methodi 07:10:00 08:40:[address] Kunjan 3.430.2.7 Hospit a .3.823698 l .8 2022-06-17 2022-06-17 Surgery Demetrio, 1.2.840.1 [id number] 7924 Methodi 07:10:00 08:40:[address] Kunjan 3.430.2.7 Hospit a .3.533292 l .8 2022-06-17 2022-06-17 Anesthesia Pasdar-Ambar 1.2.840.1 [id number] Methodi 06:43:00 07:34:00 Event janie, 02326.1.[address] Jhon 3.430.2.7 Hosp sonya .3.490354 l .8 2022-06-17 2022-06-17 Anesthesia Pasdar-Ambar 1.2.840.1 [id number] Methodi 06:43:00 07:34:00 Event janie, 53791.1.[address] Jhon 3.430.2.7 Hosp sonya .3.652043 l .8 2022-06-16 2022-06-16 Travel 1.2.840.1 1.2.932.323 7212 [id number] Methodi 00:00:00 00:00:[address] 3.430.2.7 0.2.7.3.698 Ho spita .3.910873 084.8 l .8 2022-06-16 2022-06-16 Travel 1.2.840.1 1.2.347.254 3256 346169 Methodi 00:00:00 00:00:[address] 3.430.2.7 0.2.7.3.698 Ho spita .3.630070 084.8 l .8 2022-03-11 2022-03-11 [facility] [id number] [facility] 00:00:00 00:00:00 JIMMIE 2022-02-08 2022-02-13 Inpatient EM CRYSTAL Maya MEDI.01 [id number] [facility] 00:23:00 13:44:[address] [place] [address] 2022-02-08 2022-02-08 Outpatient MARY Maya [id number] [facility] 00:43:00 00:43:00 Musaddiq 97 [facility] 2021-11-25 2021-12-07 Inpatient EM Tin, HCAPM INTE.02 [id number] [facility] 18:22:00 18:52:00 Yusuf 30 [facility] 2021-10-08 2021-10-22 Inpatient EM Cora, HCACL INTE [id number] [facility] 21:44:00 18:23:00 Delisa [id number] [facility] 2021-10-08 2021-10-22 Inpatient EM Cora, HCACL INTE [id number] [facility] 21:44:00 18:23:00 Delisa 26 [facility] 2021-10-09 2021-10-09 Outpatient NEERU Vega, HCACL LABO [id number] [facility] 00:42:00 00:42:00 Chuy 73 [facility] 2021-10-09 2021-10-09 Outpatient NEERU Vega, HCACL HCACL [id number] [facility] 00:42:00 00:42:00 Chuy [id number] [facility] 2021-10-08 2021-10-08 Emergency EM Silvia, HCAPM WENDY [id number] [facility] 13:58:00 20:10:00 Chuy 63 [facility] 2021-10-08 2021-10-08 Emergency EM Silvia, HCAPM HCAPM [id number] [facility] 13:58:00 20:10:00 Chuy [id number] [facility] 2017-06-17 2017-06-17 Outpatient [facility] [id number] 93 [place] 00:00:00 00:00:00 [facility] Results Test Description Test Time Test Comments Results Result Comments Source Hemoglobin A1c/Hemoglobin.total in Blood 2022-09-17 15:45:47 Test Item Value Reference Range Interpretation Comme nts HbA1c (test code = HbA1c) 8.2 [facility]/volume] in Capillary [id number] 15:34:50 Test Item Value Reference Range Interpretation Comments Blood Glucose: mg/dl (test code = Blood 502 Glucose: mg/dl) [facility]2023-05-31 17:32:00 Test Item Value Reference Range Interpretation Comments POC glucose (test code 119 mg/dL 65-99 H Opera tor Name: Estuardo = 42282-7) UmbargerDevice ID: [id number] able: HMW 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 Interpretation Abnormal (test code = 63472-4) [facility]2023-05-31 17:32:00 Test Item Value Reference Range Interpretation Comments POC glucose (test code 119 mg/dL 65-99 H Opera tor Name: Estuardo = 40290-7) UmbargerDevice ID: [id number] able: HMW 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 Interpretation Abnormal (test code = 19420-0) [facility]2023-05-31 17:32:00 Test Item Value Reference Range Interpretation Comments POC glucose (test code 119 mg/dL 65-99 H Opera tor Name: Estuardo = 04121-0) UmbargerDevice ID: [id number] able: HMW 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 Interpretation Abnormal (test code = 23072-8) [facility]2023-05-30 16:18:00 Test Item Value Reference Range Interpretation Comments POC glucose (test code 160 mg/dL 65-99 H Opera tor Name: Desiy = 87253-2) HernandezDevice ID: [id number] able: HMW 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 Interpretation Abnormal (test code = 81100-9) [facility]2023-05-29 19:28:00 Test Item Value Reference Interpretation Comments Range Anaerobic culture Porphyromonas A Specimen isolate (test [facility] code = 14284-7) performance Source: Sara dSpecimen characteristics of Site: [place]xton t, left this assay on this isolatewere validated by the Microbiology Laboratory at [facility]. This source has not been approved by the U.S. Food and Drug Administration. The results are not intended to be used as the sole means for clinical diagnosis or patient management. The Microbiology Laboratory is authorized under the clinical Laboratory Improvement Amendments of 1988 (CLIA-88) to perform high complexity testing. Lab Abnormal Interpretation (test code = 27585-0) [facility]2023-05-29 19:28:00 Test Item Value Reference Interpretation Comments Range Anaerobic culture Porphyromonas A Specimen isolate (test [facility] code = 18918-1) performance Source: Woun dSpecimen characteristics of Site: Paxton muñoz, left this assay on this isolatewere validated by the Microbiology Laboratory at [facility]. This source has not been approved by the U.S. Food and Drug Administration. The results are not intended to be used as the sole means for clinical diagnosis or patient management. The Microbiology Laboratory is authorized under the clinical Laboratory Improvement Amendments of 1988 (CLIA-88) to perform high complexity testing. Lab Abnormal Interpretation (test code = 34804-3) [facility]2023-05-29 19:28:00 Test Item Value Reference Interpretation Comments Range Anaerobic culture Porphyromonas A Specimen isolate (test someraeThe Midfin SystemsValley Plaza Doctors Hospitalen code = 57636-4) performance Source: Woun dSpecimen characteristics of Site: Paxton muñoz, left this assay on this isolatewere validated by the Microbiology Laboratory at [facility]. This source has not been approved by the U.S. Food and Drug Administration. The results are not intended to be used as the sole means for clinical diagnosis or patient management. The Microbiology Laboratory is authorized under the clinical Laboratory Improvement Amendments of 1988 (CLIA-88) to perform high complexity testing. Lab Abnormal Interpretation (test code = 51116-4) [facility]2023-05-29 19:28:00 Test Item Value Reference Interpretation Comments Range Anaerobic culture Porphyromonas A Specimen isolate ([facility]Nov[facility] Mid[facility] Systemse [facility]en code = 69494-6) performance Source: Woun dSpecimen characteristics of Site: Paxton t, left this assay on this isolatewere validated by the Microbiology Laboratory at [facility]. This source has not been approved by the U.S. Food and Drug Administration. The results are not intended to be used as the sole means for clinical diagnosis or patient management. The Microbiology Laboratory is authorized under the clinical Laboratory Improvement Amendments of 1988 (CLIA-88) to perform high complexity testing. Lab Abnormal Interpretation (test code = 02377-3) [facility] (w Contrast, Strain and 3D if needed)2022-09-05 15:50:16 Test Item Value Reference Interpretation Comments Range IVS,d (test code = 0.84 cm 0.6-1.19 1394101284) IVS s 2D (test code 1.43 cm = 7273675243) LVPWD,d (test code = 1.07 cm 0.60-1.19 7284093175) LVPW s PLAX (test 1.31 cm code = 2981970078) LV,s (test code = 3.65 cm 5238049105) LV mass (test code = 173.59 g 2627229513) LVOT Diam,S (test 1.97 cm code = 3785128984) LV SHELTON VOL (test 120.24 ml 46-106 A code = 3485238951) LV SYS VOL (test 56.08 ml 14-42 A code = 3090579843) MV Peak E [place] (test 1.00 m/s code = 5174888910) MV Peak A [place] (test 0.60 m/s code = 0917286528) E/A ratio (test code 1.67 <=0.8 A = 1867257669) E wave decelartion 185.12 See_Comment A [Automat ed time (test code = message] T he 3552129836) system which generated this result transmitted reference range : 200 msec. The reference range was not used to interpret this result as normal/abnormal . LV,d (test code = 5.04 cm 3536267029) IVS/LVPW,2D (test 0.79 code = 4128071697) LV EF,2D (test code 62.09 % = 5095725845) LV FS Cube 2D (test 27.62 code = 9895813507) LV FS Teich 2D (test 27.62 code = 7224013831) LV SV Teich 2D (test 64.16 ml code = 5658383131) LV Vol s Teich PSAX 56.08 ml (test code = 5567051315) LVOT stroke volume 0.49 cm3 (test code = 3540720852) Left Atrium 3.82 cm <=3.8 A Dimension Anterior (test code = 6198763872) LA Vol MOD A4C (test 49.39 ml code = 0519612001) LA area s A4C (test 19.64 cm2 code = 4534466748) LVOT area (test code 3.05 cm2 = 4357585004) LVOT Vmax (test code 0.92 m/s = 1578853138) AoV Mean PG (test 3.41 See_Comment [Automate d code = 8047264180) message] The system which generated this result transmitted reference range : 20 mmHg. The reference range was not used to interpret this result as normal/abnormal . AoV Peak PG (test 6.37 mmHg code = 3077397273) AV LVOT peak 3.37 mmHg gradient (test code = 4742419915) AoV Area, Vmax (test 2.23 cm2 >=1.5 code = 2094970641) LVOT VTI (CM) (test 16.00 cm code = 6458219968) AoV Vmax (test code 1.26 m/s = 6326664767) AoV Vmn (test code = 0.87 m/s 3739288200) AoV Area, VTI (test 1.83 cm2 code = 9004071741) LVOT CO (test code = 3.77 l/min 9390770023) LVOT HR for LVOT CO 79.02 bpm (test code = 9626562774) Velocity Ratio 0.73 m/s (V1/V2) (test code = 4689) MV mean gradient 0.88 See_Comment [Automated (test code = message] The 1367435265) system which generated this result transmitted reference range : 5 mmHg. The reference range was not used to interpret this result as normal/abnormal . MR peak grad (test 2.05 mmHg code = 2187320390) MV stenosis pressure 53.68 ms <=150 1/2 time (test code = 9870372447) MV E A ratio (test 1.68 code = 9045711209) MV valve area p 1/2 4.10 cm2 method (test code = 8853884542) MV VTI Tips (test 0.16 m code = 6810581420) MV Vmax (test code = 0.72 m 1863093548) RVOT Vmax (test code 0.60 m/s = 3073558845) PV Mean Grad (test 1.44 mmHg code = 9890499960) PV Pk Grad (test 2.57 See_Comment [Automated code = 5654011004) message] The system which generated this result transmitted reference range : 36 mmHg. The reference range was not used to interpret this result as normal/abnormal . PV VTI (test code = 0.18 m 0877155750) RVOT pk grad (test 1.45 mmHg code = 3332630196) PV VMAX (test code = 0.80 m/s <=3 4518490970) PV Vmn (test code = 0.57 2739997466) Ao Root Diameter 2.57 cm <=3.99 (test code = 0960772681) Ao Root Diameter 2.57 cm (test code = 4788690032) Ascending aorta 2.04 cm (test code = 8281848236) Pred METS R1 (test 9.27 code = 9557246251) Pred Exer Dur R1 9.88 (test code = 0537925899) MV Decel slope (test 5.42 m/s2 code = 3759369609) LVPW pct thck PLAX 21.87 % (test code = 3700061205) LV vol s cube 2D 48.43 ml (test code = 6842479298) LV vol d cube 2D 127.73 ml (test code = 6437432669) LV SV Cube 2D (test 79.30 ml code = 9639162648) IVS pct thck PLAX 69.63 % (test code = 4609466780) Calc MPHR (test code 178.23 bpm = 5499291676) 85 of MPHR (test 151.50 code = 8193664186) RVOT VTI (test code 0.13 m = 6021068339) RVOT Vmn (test code 0.45 m/s = 7860573385) RVOT mean grad (test 0.89 mmHg code = 0170385414) LVOT mean grad (test 1.61 mmHg code = 1982275210) Aov area Vmn (test 2.10 cm2 code = 2247236114) MV AE ratio (test 0.59 code = 4488165741) LVOT Vmn (test code 0.60 = 0333075130) AoV VTI (test code = 0.26 m 0348599233) LVOT VTI (test code 0.16 m = 2782982303) BECKY (test code = BECKY) Left Ventricle: [...] artifact. Lab Interpretation Abnormal (test code = 81615-6) [facility], (w Contrast, Strain and 3D if needed)2022-09-05 15:50:16 Test Item Value Reference Interpretation Comments Range IVS,d (test code = 0.84 cm 0.6-1.19 6599501413) IVS s 2D (test code 1.43 cm = 8452636388) LVPWD,d (test code = 1.07 cm 0.60-1.19 2126103172) LVPW s PLAX (test 1.31 cm code = 0344510735) LV,s (test code = 3.65 cm 3383858601) LV mass (test code = 173.59 g 7645185174) LVOT Diam,S (test 1.97 cm code = 0174378106) LV SHELTON VOL (test 120.24 ml 46-106 A code = 1036285054) LV SYS VOL (test 56.08 ml 14-42 A code = 6764283466) MV Peak E [place] (test 1.00 m/s code = 3016683085) MV Peak A [place] (test 0.60 m/s code = 8479727616) E/A ratio (test code 1.67 <=0.8 A = 0301714414) E wave decelartion 185.12 See_Comment A [Automat ed time (test code = message] T he 6120927105) system which generated this result transmitted reference range : 200 msec. The reference range was not used to interpret this result as normal/abnormal . LV,d (test code = 5.04 cm 2992973588) IVS/LVPW,2D (test 0.79 code = 6633725777) LV EF,2D (test code 62.09 % = 7142996448) LV FS Cube 2D (test 27.62 code = 1481825394) LV FS Teich 2D (test 27.62 code = 7853722568) LV SV Teich 2D (test 64.16 ml code = 7449019165) LV Vol s Teich PSAX 56.08 ml (test code = 9315717562) LVOT stroke volume 0.49 cm3 (test code = 4937567888) Left Atrium 3.82 cm <=3.8 A Dimension Anterior (test code = 1875536900) LA Vol MOD A4C (test 49.39 ml code = 9433414450) LA area s A4C (test 19.64 cm2 code = 3217184851) LVOT area (test code 3.05 cm2 = 4674135865) LVOT Vmax (test code 0.92 m/s = 6805961725) AoV Mean PG (test 3.41 See_Comment [Automate d code = 1196177970) message] The system which generated this result transmitted reference range : 20 mmHg. The reference range was not used to interpret this result as normal/abnormal . AoV Peak PG (test 6.37 mmHg code = 6278823064) AV LVOT peak 3.37 mmHg gradient (test code = 2348235032) AoV Area, Vmax (test 2.23 cm2 >=1.5 code = 2135961608) LVOT VTI (CM) (test 16.00 cm code = 0366756598) AoV Vmax (test code 1.26 m/s = 8633590939) AoV Vmn (test code = 0.87 m/s 2146840715) AoV Area, VTI (test 1.83 cm2 code = 3122955895) LVOT CO (test code = 3.77 l/min 8550191706) LVOT HR for LVOT CO 79.02 bpm (test code = 8892375113) Velocity Ratio 0.73 m/s (V1/V2) (test code = 4689) MV mean gradient 0.88 See_Comment [Automated (test code = message] The 3054126490) system which generated this result transmitted reference range : 5 mmHg. The reference range was not used to interpret this result as normal/abnormal . MR peak grad (test 2.05 mmHg code = 1786345586) MV stenosis pressure 53.68 ms <=150 1/2 time (test code = 1603322781) MV E A ratio (test 1.68 code = 5291127825) MV valve area p 1/2 4.10 cm2 method (test code = 8949232711) MV VTI Tips (test 0.16 m code = 2038008434) MV Vmax (test code = 0.72 m 0342532276) RVOT Vmax (test code 0.60 m/s = 8485104933) PV Mean Grad (test 1.44 mmHg code = 3014849303) PV Pk Grad (test 2.57 See_Comment [Automated code = 9535994794) message] The system which generated this result transmitted reference range : 36 mmHg. The reference range was not used to interpret this result as normal/abnormal . PV VTI (test code = 0.18 m 7610135225) RVOT pk grad (test 1.45 mmHg code = 8281792206) PV VMAX (test code = 0.80 m/s <=3 4602570342) PV Vmn (test code = 0.57 2781081126) Ao Root Diameter 2.57 cm <=3.99 (test code = 6919531284) Ao Root Diameter 2.57 cm (test code = 6524747491) Ascending aorta 2.04 cm (test code = 4780996963) Pred METS R1 (test 9.27 code = 1261401528) Pred Exer Dur R1 9.88 (test code = 7550406121) MV Decel slope (test 5.42 m/s2 code = 0255139356) LVPW pct thck PLAX 21.87 % (test code = 2087966215) LV vol s cube 2D 48.43 ml (test code = 6187373301) LV vol d cube 2D 127.73 ml (test code = 1737400603) LV SV Cube 2D (test 79.30 ml code = 3303530465) IVS pct thck PLAX 69.63 % (test code = 9099330956) Calc MPHR (test code 178.23 bpm = 6943270411) 85 of MPHR (test 151.50 code = 5523924747) RVOT VTI (test code 0.13 m = 5405893720) RVOT Vmn (test code 0.45 m/s = 6270221002) RVOT mean grad (test 0.89 mmHg code = 9083986709) LVOT mean grad (test 1.61 mmHg code = 1847306188) Aov area Vmn (test 2.10 cm2 code = 1307248443) MV AE ratio (test 0.59 code = 6930250069) LVOT Vmn (test code 0.60 = 5431411702) AoV VTI (test code = 0.26 m 3973115880) LVOT VTI (test code 0.16 m = 7999724845) BECKY (test code = BECKY) Left Ventricle: [...] artifact. Lab Interpretation Abnormal (test code = 51300-7) [facility] [id number] 12:20:00 Test Item Value Reference Range Interpretation Comments Urine culture (test SEE COMMENT Bacteriu chaitanya screen code = 3409575) negative. [facility] [id number] 12:20:00 Test Item Value Reference Range Interpretation Comments Urine culture (test SEE COMMENT Bacteriu chaitanya screen code = 9470531) negative. [facility] [id number] 12:20:00 Test Item Value Reference Range Interpretation Comments Urine culture (test SEE COMMENT Bacteriu chaitanya screen code = 8833900) negative. [facility] [id number] 12:20:00 Test Item Value Reference Range Interpretation Comments Urine culture (test SEE COMMENT Bacteriu chaitanya screen code = 9375649) negative. [facility] [id number] 22:29:00 Test Item Value Reference Range Interpretation [...] TOTAL (test code = ALKP) CBC W/AUTO [id number] 21:46:00 Test Item Value Reference Range Interpretation [...] code NO DIFF/SCN CRITERIA = MDIFF) AFB [id number] 00:13:00 Test Item Value Reference Range Interpretation Comments AFB culture No growth Specimen isolate (test after 6 weeks InformationSp ecimen code = 543-9) of Source: [place] geSpecimen incubation. Site: Foot: Lef t foot culture [facility] [id number] 00:13:00 Test Item Value Reference Range Interpretation Comments AFB culture No growth Specimen isolate (test after 6 weeks InformationSp ecimen code = 543-9) of Source: [place] geSpecimen incubation. Site: Foot: Lef t foot culture [facility] [id number] 00:13:00 Test Item Value Reference Range Interpretation Comments AFB culture No growth Specimen isolate (test after 6 weeks InformationSp ecimen code = 543-9) of Source: [place] geSpecimen incubation. Site: Foot: Lef t foot culture [facility] [id number] 00:13:00 Test Item Value Reference Range Interpretation Comments AFB culture No growth Specimen isolate (test after 6 weeks InformationSp ecimen code = 543-9) of Source: [place] geSpecimen incubation. Site: Foot: Lef t foot culture [facility] [id number] 00:13:00 Test Item Value Reference Range Interpretation Comments AFB culture No growth Specimen isolate (test after 6 weeks InformationSp ecimen code = 543-9) of Source: [place] geSpecimen incubation. Site: [id number] 00:15:00 Test Item Value Reference Range Interpretation Comments Fungus culture No growth Specimen isolate (test after 4 weeks InformationSp ecimen code = 580-1) of Source: [place] geSpecimen incubation. Site: Foot: [facility] [id number] 00:15:00 Test Item Value Reference Range Interpretation Comments Fungus culture No growth Specimen isolate (test after 4 weeks InformationSp ecimen code = 580-1) of Source: [place] geSpecimen incubation. Site: Foot: [facility]ef [facility] [id number] 00:15:00 Test Item Value Reference Range Interpretation Comments Fungus culture No growth Specimen isolate (test after 4 weeks InformationSp ecimen code = 580-1) of Source: [place] geSpecimen incubation. Site: Foot: [facility]ef [facility] [id number] 00:15:00 Test Item Value Reference Range Interpretation Comments Fungus culture No growth Specimen isolate (test after 4 weeks InformationSp ecimen code = 580-1) of Source: [place] geSpecimen incubation. Site: Foot: [facility]ef [facility] [id number] 00:15:00 Test Item Value Reference Range Interpretation Comments Fungus culture No growth Specimen isolate (test after 4 weeks InformationSp ecimen code = 580-1) of Source: [place] geSpecimen incubation. Site: Foot: [facility] [id number] 13:44:20 Test Item Value Reference Range Interpretation Comments Case number (test code = [id number]) Surgical pathology See link below for report (test code = PDF Lab Report 2255) Result status (test code This is Final Report = [id number]) for [id number] [facility] [id number] 13:44:20 Test Item Value Reference Range Interpretation Comments Case number (test code = [id number]) Surgical pathology See link below for report (test code = PDF Lab Report 2255) Result status (test code This is Final Report = 8238851) for [id number] [facility] pathology [id number] 13:44:20 Test Item Value Reference Range Interpretation Comments Case number (test code = [id number]) Surgical pathology See link below for report (test code = PDF Lab Report 2255) Result status (test code This is Final Report = 4977517) for [id number] [facility] pathology [id number] 13:44:20 Test Item Value Reference Range Interpretation Comments Case number (test code = [id number]) Surgical pathology See link below for report (test code = PDF Lab Report 2255) Result status (test code This is Final Report = [id number]) for [id number] [facility] pathology [id number] 13:44:20 Test Item Value Reference Range Interpretation Comments Case number (test code = [id number]) Surgical pathology See link below for report (test code = PDF Lab Report 2255) Result status (test code This is Final Report = 3449860) for [id number] [facility] [id number] 21:23:00 Test Item Value Reference Range Interpretation Comments POC glucose (test code = 125 mg/dL 65-99 H Ope rator Name: Vasquez [id number] GimiDevice ID: [id number] able: RN Notified Lab Interpretation (test Abnormal code = 02303-5) [facility] [id number] 14:56:00 Test Item Value Reference Range Interpretation Comments Anaerobic No anaerobic Specimen culture isolate organisms InformationS pecimen (test code = isolated. Source: Drain eSpecimen 77131-5) Site: Foot: Lef t foot [facility] [id number] 21:54:00 Test Item Value Reference Range Interpretation Comments AFB stain No acid fast Specimen (test code = bacilli (AFB) InformationSpe cimen 676-7) seen. Source: Drain eSpecimen Site: Foot: Lef t foot culture [facility] [id number] 21:54:00 Test Item Value Reference Range Interpretation Comments AFB stain No acid fast Specimen (test code = bacilli (AFB) InformationSpe cimen 676-7) seen. Source: Drain eSpecimen Site: Foot: [facility]ef [facility] [id number] 21:54:00 Test Item Value Reference Range Interpretation Comments AFB stain No acid fast Specimen (test code = bacilli (AFB) InformationSpe cimen 676-7) seen. Source: [facility] Site: Foot: Lef t foot culture [facility] [id number] 21:54:00 Test Item Value Reference Range Interpretation Comments AFB stain No acid fast Specimen (test code = bacilli (AFB) InformationSpe cimen 676-7) seen. Source: [facility] Site: Foot: Lef t foot culture [facility] [id number] 21:54:00 Test Item Value Reference Range Interpretation Comments AFB stain No acid fast Specimen (test code = bacilli (AFB) InformationSpe cimen 676-7) seen. Source: [facility] Site: Foot: Lef t foot culture [facility] [id number] 18:01:00 Test Item Value Reference Range Interpretation Comments Fungus smear No fungi Specimen (test code = observed. Everypost Source: 1443) DrainageSpecime n Site: Foot: Left foot [facility] [id number] 18:01:00 Test Item Value Reference Range Interpretation Comments Fungus smear No fungi Specimen (test code = observed. Everypost Source: 1443) DrainageSpecime n Site: Foot: Left foot [facility] [id number] 18:01:00 Test Item Value Reference Range Interpretation Comments Fungus smear No fungi Specimen (test code = observed. Everypost Source: 1443) DrainageSpecime n Site: Foot: Left foot [facility] [id number] 18:01:00 Test Item Value Reference Range Interpretation Comments Fungus smear No fungi Specimen (test code = observed. Everypost Source: 1443) DrainageSpecime n Site: Foot: Left foot culture [facility] [id number] 18:01:00 Test Item Value Reference Range Interpretation Comments Fungus smear No fungi Specimen (test code = observed. Information8Trip Source: 1443) DrainageSpecime n Site: Foot: Left foot culture [facility] [id number] 02:31:00 Test Item Value Reference Range Interpretation Comments Gram stain No WBC's or Specimen isolate (test organisms seen. Information Specimen code = 1469) Source: Drainag eSpecimen Site: Foot: Lef t foot culture [facility] [id number] 18:47:00 Test Item Value Reference Range Interpretation Comments Urine culture Mixed adelso Specimen isolate (test <=10-3 col/cc InformationSp ecimen code = 57108-8) Source: Urin eSpecimen Site: Clean cat ch [facility] 12 [id number] 17:51:52 Test Item Value Reference Range Interpretation Comments Ventricular rate (test 87 code = 253) Atrial rate (test code 87 = 255) ID interval (test code 178 = 266) QRSD [...] of 31-OCT-2012 10:14,-No significant change was found- [address]2023-03-09 17:51:52 Test Item Value Reference Range Interpretation Comments Ventricular rate (test 87 code = 253) Atrial rate (test code 87 = 255) ID interval (test code 178 = 266) QRSD [...] of 31-OCT-2012 10:14,-No significant change was found- [address]2023-03-09 17:51:52 Test Item Value Reference Range Interpretation Comments Ventricular rate (test 87 code = 253) Atrial rate (test code 87 = 255) ID interval (test code 178 = 266) QRSD [...] of 31-OCT-2012 10:14,-No significant change was found- [facility] 12 [id number] 17:51:52 Test Item Value Reference Range Interpretation Comments Ventricular rate (test 87 code = 253) Atrial rate (test code 87 = 255) ID interval (test code 178 = 266) QRSD [...] of 31-OCT-2012 10:14,-No significant change was found- [place] [address] guko2152-02-72 17:51:52 Test Item Value Reference Range Interpretation Comments Ventricular rate (test 87 code = 253) Atrial rate (test code 87 = 255) ID interval (test code 178 = 266) QRSD [...] of 31-OCT-2012 10:14,-No significant change was found- [facility] ED Preliminary Interpretation - Not an [id number] 21:57:50 Test Item Value Reference Range Interpretation Comments BECKY (test code = BECKY) Ishaan Tillman MD 06/18/2022 7:08 [facility] [place] ED Preliminary Interpretation - Not an OrderPerformed by: Ishaan Tillman MDAuthorized by: Ishaan Tillman MD ECG reviewed by ED Physician in the absence of a supervisor concrete stone fabricating: yes Interpretation: Interpretation: abnormal Quality: Tracing quality: Limited by artifactRate: ECG rate: 114 ECG rate assessment: tachycardic Rhythm: Rhythm: sinus tachycardia Ectopy: Ectopy: none QRS: QRS axis: Normal QRS intervals: NormalConduction: Conduction: normal ST segments: ST segments: NormalT waves: T waves: inverted Inverted: AVLComments: ID 152. QRS 96. QTc 443. Lab Interpretation Abnormal (test code = 58061-7) [facility] ED Preliminary Interpretation - Not an [id number] 21:57:50 Test Item Value Reference Range Interpretation Comments BECKY (test code = BECKY) Ishaan Tillman MD 06/18/2022 7:08 [facility] [place] ED Preliminary Interpretation - Not an OrderPerformed by: Ishaan Tillman MDAuthorized by: Ishaan Tillman MD ECG reviewed by ED Physician in the absence of a supervisor concrete stone fabricating: yes Interpretation: Interpretation: abnormal Quality: Tracing quality: Limited by artifactRate: ECG rate: 114 ECG rate assessment: tachycardic Rhythm: Rhythm: sinus tachycardia Ectopy: Ectopy: none QRS: QRS axis: Normal QRS intervals: NormalConduction: Conduction: normal ST segments: ST segments: NormalT waves: T waves: inverted Inverted: AVLComments: ID 152. QRS 96. QTc 443. Lab Interpretation Abnormal (test code = 42914-1) [facility] ED Preliminary Interpretation - Not an [id number] 21:57:50 Test Item Value Reference Range Interpretation Comments BECKY (test code = BECKY) Ishaan Tillman MD 06/18/2022 7:08 [facility] [place] ED Preliminary Interpretation - Not an OrderPerformed by: Ishaan Tillman MDAuthorized by: Ishaan Tillman MD ECG reviewed by ED Physician in the absence of a supervisor concrete stone fabricating: yes Interpretation: Interpretation: abnormal Quality: Tracing quality: Limited by artifactRate: ECG rate: 114 ECG rate assessment: tachycardic Rhythm: Rhythm: sinus tachycardia Ectopy: Ectopy: none QRS: QRS axis: Normal QRS intervals: NormalConduction: Conduction: normal ST segments: ST segments: NormalT waves: T waves: inverted Inverted: AVLComments: ID 152. QRS 96. QTc 443. Lab Interpretation Abnormal (test code = 27494-4) [facility] ED Preliminary Interpretation - Not an [id number] 21:57:50 Test Item Value Reference Range Interpretation Comments BECKY (test code = BECKY) Ishaan Tillman MD 06/18/2022 7:08 [facility] [place] ED Preliminary Interpretation - Not an OrderPerformed by: Ishaan Tillman MDAuthorized by: Ishaan Tillman MD ECG reviewed by ED Physician in the absence of a supervisor concrete stone fabricating: yes Interpretation: Interpretation: abnormal Quality: Tracing quality: Limited by artifactRate: ECG rate: 114 ECG rate assessment: tachycardic Rhythm: Rhythm: sinus tachycardia Ectopy: Ectopy: none QRS: QRS axis: Normal QRS intervals: NormalConduction: Conduction: normal ST segments: ST segments: NormalT waves: T waves: inverted Inverted: AVLComments: ID 152. QRS 96. QTc 443. Lab Interpretation Abnormal (test code = 67090-1) [facility] Preliminary Interpretation - Not an [id number] 21:57:50 Test Item Value Reference Range Interpretation Comments BECKY (test code = BECKY) Ishaan Tillman MD 06/18/2022 7:08 [facility] [place] ED Preliminary Interpretation - Not an OrderPerformed by: Ishaan Tillman MDAuthorized by: Ishaan Tillman MD ECG reviewed by ED Physician in the absence of a supervisor concrete stone fabricating: yes Interpretation: Interpretation: abnormal Quality: Tracing quality: Limited by artifactRate: ECG rate: 114 ECG rate assessment: tachycardic Rhythm: Rhythm: sinus tachycardia Ectopy: Ectopy: none QRS: QRS axis: Normal QRS intervals: NormalConduction: Conduction: normal ST segments: ST segments: NormalT waves: T waves: inverted Inverted: AVLComments: ID 152. QRS 96. QTc 443. Lab Interpretation Abnormal (test code = 89324-8) [facility] and B [id number] 16:55:25 Test Item Value Reference Range Interpretation Comments SARS-CoV-2 (COVID-19) RNA Not detected [Presence] in Respiratory specimen by ANIRUDH with probe detection (test code = 31528-3) Whether patient resides in a No congregate care setting (test code = 71719-1) Date and time of symptom onset Unknown (test code = 58126-9) Whether the patient was No hospitalized for condition of interest (test code = 80525-5) Whether the patient was admitted No to intensive care unit (ICU) for condition of interest (test code = 33786-9) Whether patient is employed in a No healthcare setting (test code = 92952-1) Whether the patient has symptoms No related to condition of interest (test code = 89218-6) status (test code = No 00858-1) [facility] [id number] 11:33:00 Test Item Value Reference Range Interpretation Comments GLUCOSE BEDSIDE TESTING (test code 136 mg/dL 70-110 H = GLUBED) GLUCOSE BEDSIDE [id number] 11:32:00 Test Item Value Reference Range Interpretation Comments GLUCOSE BEDSIDE TESTING (test code 162 mg/dL 70-110 H = GLUBED) GLUCOSE BEDSIDE [id number] 11:36:00 Test Item Value Reference Range Interpretation Comments GLUCOSE BEDSIDE TESTING (test code 154 mg/dL 70-110 H = GLUBED) GLUCOSE BEDSIDE [id number] 07:55:00 Test Item Value Reference Range Interpretation Comments GLUCOSE BEDSIDE TESTING (test code 135 mg/dL 70-110 H = GLUBED) [id number] 21:13:00 Test Item Value Reference Range Interpretation Comments VANCOMYCIN (test code = VANCO) 7.0 mcG/ML 5-40 N GLUCOSE BEDSIDE [id number] 20:28:00 Test Item Value Reference Range Interpretation Comments GLUCOSE BEDSIDE TESTING (test code 249 mg/dL 70-110 H = GLUBED) - XR CHEST 1 [id number] 19:31:00 [facility] : 1980 Sex: F Name: [facility] : 1980 Age/S: 41 / F [address] [address] Unit #: [id number] Loc: [place] [address] Phys: Prakash Larsen MD Acct: [id number] Dis Date: Status: ADM IN PHONE #: [phone] Exam Date: 02/12/20221919 FAX #: Reason: PICC PLACEMENT EXAMS: CPT: [id number] XR CHEST 1 V 73714 Fluoro Time: DAP (Gy m2): Air Kerma [...] identified. IMPRESSION: Right-sided PICC line as above at 1931 Reported and signed by: Shantell Macario M.D. CC: Prakash Larsen MD; Marshal Maya MD PAGE 1 Signed Report Name: HARLEEN MANZANO Burkett : 1980 Age/S: 41 / F [address] [address] Unit #: [id number] Loc: [place] [address] Phys: Prakash Larsen MD Acct: [id number] Dis Date: Status: ADM IN PHONE #: [phone] Exam Date: 02/12/20221919 FAX #: Reason: PICC PLACEMENT EXAMS: CPT: [id number] XR CHEST 1 V 05835 Fluoro Time: DAP (Gy m2): Air Kerma (mGy): (Continued) Technologist: Naif RT(R)(CT) Trnscb Date/Time: 02/12/2022 (1930) [email or web address] Orig Print D/T: S: 02/12/2022 (1934) PAGE 2 Signed ReportGLUCOSE BEDSIDE [id number] 16:39:00 Test Item Value Reference Range Interpretation Comments GLUCOSE BEDSIDE TESTING (test code 206 mg/dL 70-110 H = GLUBED) GLUCOSE BEDSIDE [id number] 07:31:00 Test Item Value Reference Range Interpretation Comments GLUCOSE BEDSIDE TESTING (test code 160 mg/dL 70-110 H = GLUBED) CREATINE KINASE (CK)2022-02-12 04:51:00 Test Item Value Reference Range Interpretation Comments CREATINE KINASE (CK) (test code = 139 Unit/L 26-192 N CK) GLUCOSE BEDSIDE [id number] 20:35:00 Test Item Value Reference Range Interpretation Comments GLUCOSE BEDSIDE TESTING (test code 216 mg/dL 70-110 H = GLUBED) GLUCOSE BEDSIDE [id number] 17:03:00 Test Item Value Reference Range Interpretation Comments GLUCOSE BEDSIDE TESTING (test code 198 mg/dL 70-110 H = GLUBED) GLUCOSE BEDSIDE [id number] 07:47:00 Test Item Value Reference Range Interpretation Comments GLUCOSE BEDSIDE TESTING (test code 161 mg/dL 70-110 H = GLUBED) [id number] 06:48:00 Test Item Value Reference Range Interpretation Comments VANCOMYCIN (test code = VANCO) 22.1 mcG/ML 5-40 N VANCOMYCIN [id number] 21:20:00 Test Item Value Reference Range Interpretation Comments VANCOMYCIN TROUGH (test code = 29.9 mcG/ML 10-20 H VANCT) GLUCOSE BEDSIDE [id number] 20:35:00 Test Item Value Reference Range Interpretation Comments GLUCOSE BEDSIDE TESTING (test code 186 mg/dL 70-110 H = GLUBED) GLUCOSE BEDSIDE [id number] 17:06:00 Test Item Value Reference Range Interpretation Comments GLUCOSE BEDSIDE TESTING (test code 260 mg/dL 70-110 H = GLUBED) VANCOMYCIN [id number] 12:38:00 Test Item Value Reference Range Interpretation Comments VANCOMYCIN PEAK (test code = 37.9 mcG/ML 20-40 N VANCP) GLUCOSE BEDSIDE [id number] 11:38:00 Test Item Value Reference Range Interpretation Comments GLUCOSE BEDSIDE TESTING (test code 177 mg/dL 70-110 H = GLUBED) GLUCOSE BEDSIDE [id number] 08:10:00 Test Item Value Reference Range Interpretation Comments GLUCOSE BEDSIDE TESTING (test code 149 mg/dL 70-110 H = GLUBED) GLUCOSE BEDSIDE [id number] 20:41:00 Test Item Value Reference Range Interpretation Comments GLUCOSE BEDSIDE TESTING (test code 267 mg/dL 70-110 H = GLUBED) GLUCOSE BEDSIDE [id number] 16:58:00 Test Item Value Reference Range Interpretation Comments GLUCOSE BEDSIDE TESTING (test code 262 mg/dL 70-110 H = GLUBED) GLUCOSE BEDSIDE [id number] 11:26:00 Test Item Value Reference Range Interpretation Comments GLUCOSE BEDSIDE TESTING (test code 246 mg/dL 70-110 H = GLUBED) - MRI LOW EXT W/O CONT [id number] 09:24:00 [facility] : 1980 Sex: F FAX:Juan A Perkins [phone] Camps: PM St: ADM FAX: Marshal Maya MD [phone] Name: HARLEEN MANZANO [facility] : 1980 Age/S: 41/F [address] [facility] Unit #: [id number] Loc: [address] [place], [place] [address]Ekqu: Pro Bustamante MD Acct: [id number] Dis Date: Status: ADM IN PHONE #: [phone] Exam Date: 02/09/2022 0856 FAX #: Reason: R/o abscess, osteomyelitis, gas producing infec EXAMS: CPT: [id number] MRI LOW EXT W/[place] [address] EXAM: - MRI LOW EXT W/O CONT LT LOCATION: C3 HISTORY: R/o abscess, osteomyelitis, gas producing infection COMPARISON: None available at the time of interpretation. 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 Loss of T1 signalin the 4th metatarsal head and 4th proximal [...] 4.5 cm fluid collection at the dorsal lateralaspect of the forefoot with 2 sinus tracts. at 0924 Reported and signed by: CORTNEY PARKINSON M.D. CC: Pro Pritchard MD; Marshal Maya MD Technologist: RT Del(R)(CT)(MR) Transcribed Date/Time/By: 02/09/2022 (4869):[email or web address] Orig Print D/T: S: 02/09/2022 (6203) PAGE 1 Signed ReportGLUCOSE BEDSIDE [id number] 07:39:00 Test Item Value Reference Range Interpretation Comments GLUCOSE BEDSIDE TESTING (test code 243 mg/dL 70-110 H = GLUBED) GLUCOSE BEDSIDE [id number] 06:12:00 Test Item Value Reference Range Interpretation Comments GLUCOSE BEDSIDE TESTING (test code 307 mg/dL 70-110 H = GLUBED) BASIC METABOLIC [id number] 04:41:00 Test Item Value Reference Range Interpretation [...] CA) 8.6 MG/DL 8.5-10.1 N CBC W/AUTO [id number] 04:31:00 Test Item Value Reference Range Interpretation [...] NO DIFF/SCN CRITERIA = MDIFF) GLUCOSE BEDSIDE [id number] 22:52:00 Test Item Value Reference Range Interpretation Comments GLUCOSE BEDSIDE TESTING (test code 264 mg/dL 70-110 H = GLUBED) GLUCOSE BEDSIDE [id number] 21:22:00 Test Item Value Reference Range Interpretation Comments GLUCOSE BEDSIDE TESTING (test code 291 mg/dL 70-110 H = GLUBED) GLUCOSE BEDSIDE [id number] 12:12:00 Test Item Value Reference Range Interpretation Comments GLUCOSE BEDSIDE TESTING (test code 163 mg/dL 70-110 H = GLUBED) GLUCOSE BEDSIDE [id number] 07:27:00 Test Item Value Reference Range Interpretation Comments GLUCOSE BEDSIDE TESTING (test code 157 mg/dL 70-110 H = GLUBED) GLUCOSE BEDSIDE [id number] 01:57:00 Test Item Value Reference Range Interpretation Comments GLUCOSE BEDSIDE TESTING (test code 156 mg/dL 70-110 H = GLUBED) - XR FOOT 3+V [id number] 22:39:00 [facility] : 1980 Sex: F Name: HARLEEN MANZANO [facility] : 1980 Age/S: 41 / F [address] Unit #: [id number] Loc: [place] [address] Phys: Abdi Prabhakar NP Acct: [id number] Dis Date: Status: REG ER PHONE #: [phone] Exam Date: 02/07/20222199 FAX #: Reason: LEFT FOOT PAIN EXAMS: CPT: [id number] XR FOOT 3+[place] [address] Fluoro Time: DAP (Gy m2): Air Kerma (mGy): LOCATION: [facility] HISTORY: Female, 41 years of agewith left foot pain, wound. Surgery last month. [...] proximal phalanx has progressed, now with pathologic n ondisplaced fractures. Periosteal reaction is seen along the stump of 5th metatarsal. No other osteolytic lesions. IMPRESSION: 1. Open wound at 5th ray stump. 2. Subcutaneous emphysema/gas gangrene insoft tissues dorsal to the 4th and 5th metatarsals. 3. 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 at 2239 Reported and signed by: Adri Urrutia MD CC: Abdi Sandoval PAGE 1 Signed Report Name: HARLEEN MANZANO Burkett : 1980 Age/S: 41 / F [address] [address] Unit #: [id number] Loc: [place] [address] Phys: Abdi Prabhakar FIRER RETORT Acct: [id number] Dis Date: Status: REG ER PHONE #: [phone] Exam Date: 02/07/20222199 FAX #: Reason: LEFT FOOT PAIN EXAMS: CPT: [id number] XR FOOT 3+[place] [address] Fluoro Time: DAP (Gy m2): Air Kerma (mGy): (Continued) Technologist: Roslyn Llanos, RT(R)(CT) Trnscb Date/Time: 02/07/2022 (2238) [email or web address] Orig Print D/T: S: 02/07/2022 (2241) PAGE 2 Signed ReportUA RFLX MICR CULT IF [id number] 22:21:00 Test Item Value Reference Range Interpretation [...] Dysuria/FrequencySOURCE OF URINE: CLEAN CATCHCOVID 19 INHOUSE [id number] 22:14:00 Test Item Value Reference Range Interpretation Comments COVID 19 INHOUSE AG NEGATIVE Negative Per manu facturer, (test code = negative result s should [id number]) be treated aspr esumptive and, if inconsi [...] symptoms co nsistent with COVID-19. CBC W/AUTO [id number] 21:58:00 Test Item Value Reference Range Interpretation [...] code NO DIFF/SCN CRITERIA = MDIFF) HCG [id number] 21:56:00 Test Item Value Reference Range Interpretation Comments HCG SERUM (test < 1 mi-IU/ML 0-6 N 0 - 6 NOT P REGNANT > 6 code = HCG) SUGGESTIVE OF E YEHUDA RISES TWO FOLD EVERY 2 DAYS; SUGGEST RECONFIRMING AF TER 2 DAYS. 150,000-2 00[address] TRIMESTER 10 ,000 - 50,000 2ND & 3R D TRIMESTER BASIC METABOLIC [id number] 21:56:00 Test Item Value Reference Range Interpretation [...] CA) 9.0 MG/DL 8.5-10.1 N HEPATIC FUNCTION [id number] 21:56:00 Test Item Value Reference Range Interpretation [...] Unit/L 45-117 N code = ALKP) LACTIC [id number] 21:43:00 Test Item Value Reference Range Interpretation Comments LACTIC ACID (test code = LACT) 1.7 mmol/L 0.4-2.0 N [id number] 16:45:00 Test Item Value Reference Range Interpretation Comments SURGICAL (test code = SR) --------RUN DATE: 12/08/21 [facility] PAGE 1 RUN TIME: 1645 Specimen Inquiry RUN USER: INTERFACE --------PATIENT: HARLEEN MANZANO LOC: JOSE Meléndez #: [id number] AGE/SX: 41/F [facility]: Yusuf Castle MD : [birth year] BED: 1 DIS: 12/07/21 STATUS: DIS IN TLOC: -------- SPEC #: [id number]:[id number] RECD: 11/27/21 STATUS: HUMAIRA ORELLANA #: [id number] LAURA: 11/27/21 [facility] DR: Yusuf Castle MD ENTERED: 11/27/21 SP TYPE: SURGICAL OTHR DR: No Primary or Family Physician Self Referred Jose Garland MD, Stephen Q MD Mendoza Requena, Daniel MDORDERED: 07818, 14325, 85529, ANATOMIC SPEC, SPECIMEN TRACK COPIES TO: No Primary or Family Physician [place] [address] [facility] [address] [place] [address] Jose Garland MD [address] [facility] [address] [place], [place] [address] Jonathan Hernandez MD [address] [place] [address] [place] [address] [place] [address] PROCEDURES: 80444 (12/08/21-1639) 38145 (12/08/21) 47959 (12/08/21) SPECIMEN TRACK (11/27/21-1027) TISSUES: A. TOE, NOS - 5TH LEFT TOE CONTINUED ON NEXT PAGE --------RUN DATE: 12/08/21 [facility] - LAB PAGE 2 RUN TIME: 1645 Specimen Inquiry RUN USER: INTERFACE --------SPEC #: [id number]:[id number] PATIENT: HARLEEN MANZANO #[id number] (Continued) FINAL DIAGNOSIS LEFT 5TH TOE, AMPUTATION: [...] submitted entirely asA2-A3. Technical component performed at [id number] , [place] [address] MICROSCOPIC DESCRIPTION Specimen is entirely submitted for [...] of inflammation. -------- Signed SIGNATURE ON FILE [employer] 12/08/21 1645 -------- END OF REPORT GLUCOSE BEDSIDE [id number] 16:19:00 Test Item Value Reference Range Interpretation Comments GLUCOSE BEDSIDE TESTING (test code 271 mg/dL 70-110 H = GLUBED) GLUCOSE BEDSIDE [id number] 11:59:00 Test Item Value Reference Range Interpretation Comments GLUCOSE BEDSIDE TESTING (test code 164 mg/dL 70-110 H = GLUBED) GLUCOSE BEDSIDE [id number] 08:18:00 Test Item Value Reference Range Interpretation Comments GLUCOSE BEDSIDE TESTING (test code 113 mg/dL 70-110 H = GLUBED) BASIC METABOLIC [id number] 04:37:00 Test Item Value Reference Range Interpretation [...] code = CA) 8.6 MG/DL 8.5-10.1 N [id number] 04:37:00 Test Item Value Reference Range Interpretation Comments PHOSPHOROUS (test code = PHOS) 3.6 MG/DL 2.5-4.9 N [id number] 04:37:00 Test Item Value Reference Range Interpretation Comments MAGNESIUM (test code = MAG) 1.6 MG/DL 1.8-2.4 L CBC W/AUTO [id number] 04:23:00 Test Item Value Reference Range Interpretation [...] NO DIFF/SCN CRITERIA = MDIFF) GLUCOSE BEDSIDE [id number] 20:13:00 Test Item Value Reference Range Interpretation Comments GLUCOSE BEDSIDE TESTING (test code 236 mg/dL 70-110 H = GLUBED) GLUCOSE BEDSIDE [id number] 17:06:00 Test Item Value Reference Range Interpretation Comments GLUCOSE BEDSIDE TESTING (test code 188 mg/dL 70-110 H = GLUBED) GLUCOSE BEDSIDE [id number] 11:39:00 Test Item Value Reference Range Interpretation Comments GLUCOSE BEDSIDE TESTING (test code 135 mg/dL 70-110 H = GLUBED) GLUCOSE BEDSIDE [id number] 08:11:00 Test Item Value Reference Range Interpretation Comments GLUCOSE BEDSIDE TESTING (test code = 89 mg/dL 70-110 N GLUBED) CBC W/AUTO [id number] 05:27:00 Test Item Value Reference Range Interpretation [...] NO DIFF/SCN CRITERIA = MDIFF) GLUCOSE BEDSIDE [id number] 19:29:00 Test Item Value Reference Range Interpretation Comments GLUCOSE BEDSIDE TESTING (test code 185 mg/dL 70-110 H = GLUBED) GLUCOSE BEDSIDE [id number] 15:49:00 Test Item Value Reference Range Interpretation Comments GLUCOSE BEDSIDE TESTING (test code 197 mg/dL 70-110 H = GLUBED) GLUCOSE BEDSIDE [id number] 11:52:00 Test Item Value Reference Range Interpretation Comments GLUCOSE BEDSIDE TESTING (test code 177 mg/dL 70-110 H = GLUBED) GLUCOSE BEDSIDE [id number] 08:04:00 Test Item Value Reference Range Interpretation Comments GLUCOSE BEDSIDE TESTING (test code 121 mg/dL 70-110 H = GLUBED) GLUCOSE BEDSIDE [id number] 16:44:00 Test Item Value Reference Range Interpretation Comments GLUCOSE BEDSIDE TESTING (test code 148 mg/dL 70-110 H = GLUBED) GLUCOSE BEDSIDE [id number] 11:42:00 Test Item Value Reference Range Interpretation Comments GLUCOSE BEDSIDE TESTING (test code 121 mg/dL 70-110 H = GLUBED) GLUCOSE BEDSIDE [id number] 07:54:00 Test Item Value Reference Range Interpretation Comments GLUCOSE BEDSIDE TESTING (test code = 79 mg/dL 70-110 N GLUBED) GLUCOSE BEDSIDE [id number] 20:33:00 Test Item Value Reference Range Interpretation Comments GLUCOSE BEDSIDE TESTING (test code 212 mg/dL 70-110 H = GLUBED) GLUCOSE BEDSIDE [id number] 16:07:00 Test Item Value Reference Range Interpretation Comments GLUCOSE BEDSIDE TESTING (test code 142 mg/dL 70-110 H = GLUBED) GLUCOSE BEDSIDE [id number] 11:50:00 Test Item Value Reference Range Interpretation Comments GLUCOSE BEDSIDE TESTING (test code = 85 mg/dL 70-110 N GLUBED) GLUCOSE BEDSIDE [id number] 07:21:00 Test Item Value Reference Range Interpretation Comments GLUCOSE BEDSIDE TESTING (test code 124 mg/dL 70-110 H = GLUBED) RENAL FUNCTION [id number] 05:07:00 Test Item Value Reference Range Interpretation [...] 64 Unit/L 26-192 N CK) GLUCOSE BEDSIDE [id number] 20:52:00 Test Item Value Reference Range Interpretation Comments GLUCOSE BEDSIDE TESTING (test code 151 mg/dL 70-110 H = GLUBED) GLUCOSE BEDSIDE [id number] 15:43:00 Test Item Value Reference Range Interpretation Comments GLUCOSE BEDSIDE TESTING (test code 183 mg/dL 70-110 H = GLUBED) GLUCOSE BEDSIDE [id number] 11:32:00 Test Item Value Reference Range Interpretation Comments GLUCOSE BEDSIDE TESTING (test code 116 mg/dL 70-110 H = GLUBED) GLUCOSE BEDSIDE [id number] 07:40:00 Test Item Value Reference Range Interpretation Comments GLUCOSE BEDSIDE TESTING (test code = 98 mg/dL 70-110 N GLUBED) BASIC METABOLIC [id number] 05:08:00 Test Item Value Reference Range Interpretation [...] CA) 8.4 MG/DL 8.5-10.1 L RENAL FUNCTION [id number] 05:08:00 Test Item Value Reference Range Interpretation Comments ALBUMIN (test code = ALB) 2.1 G/DL 3.4-5.0 L PHOSPHOROUS (test code = PHOS) 4.0 MG/DL 2.5-4.9 N THYROID STIMULATING [id number] 05:08:00 Test Item Value Reference Range Interpretation Comments THYROID STIMULATING HORMONE 1.370 mcIU/ML 0.340-4.820 N (test code = TSH) GLUCOSE BEDSIDE [id number] 20:22:00 Test Item Value Reference Range Interpretation Comments GLUCOSE BEDSIDE TESTING (test code 200 mg/dL 70-110 H = GLUBED) GLUCOSE BEDSIDE [id number] 16:44:00 Test Item Value Reference Range Interpretation Comments GLUCOSE BEDSIDE TESTING (test code 135 mg/dL 70-110 H = GLUBED) - XR CHEST 2 [id number] 15:56:00 [facility] 1980 Sex: F Name: HARLEEN MANZANO [place] : 1980 Age/S: 41 / F [address] [address] Unit #: [id number] Loc: [place] [address] Phys: Yusuf Castle MD Acct: [id number] Dis Date: Status: ADM IN PHONE #: [phone] Exam Date: 12/01/2021 1510 FAX #: Reason: abnormal xr chest 1view EXAMS: CPT: [id number] XR CHEST 2 V 56257 Fluoro Time: DAP (Gy m2): Air Kerma [...] exam. at 1556 Reported and signed by: Faizan Tierney CC: Yusuf Castle MD PAGE 1 Signed Report Name: HARLEEN MANZANO [facility] : 1980 Age/S: 41 / F [address] [address] Unit #: [id number] Loc: [place] [address] Phys: Yanely Castle MD Acct: [id number] Dis Date: Status: ADM IN PHONE #: [phone] Exam Date: 12/01/2021 1510 FAX #: Reason: abnormal xr chest 1view EXAMS: CPT: [id number] XR CHEST 2 V 57353 Fluoro Time: DAP (Gy m2): Air Kerma (mGy): (Continued) Technologist: RT Jack(R) Trnscb Date/Time: 12/01/2021 (7836) [email or web address] Orig Print D/T: S: 12/01/2021 (1776) PAGE 2 Signed ReportGLUCOSE BEDSIDE [id number] 11:39:00 Test Item Value Reference Range Interpretation Comments GLUCOSE BEDSIDE TESTING (test code 247 mg/dL 70-110 H = GLUBED) GLUCOSE BEDSIDE [id number] 07:34:00 Test Item Value Reference Range Interpretation Comments GLUCOSE BEDSIDE TESTING (test code 126 mg/dL 70-110 H = GLUBED) BASIC METABOLIC [id number] 05:47:00 Test Item Value Reference Range Interpretation [...] CA) 8.0 MG/DL 8.5-10.1 L RENAL FUNCTION [id number] 05:47:00 Test Item Value Reference Range Interpretation Comments ALBUMIN (test code = ALB) 1.9 G/DL 3.4-5.0 L PHOSPHOROUS (test code = PHOS) 4.0 MG/DL 2.5-4.9 N [id number] 05:47:00 Test Item Value Reference Range Interpretation Comments MAGNESIUM (test code = MAG) 1.5 MG/DL 1.8-2.4 L GLUCOSE BEDSIDE [id number] 20:43:00 Test Item Value Reference Range Interpretation Comments GLUCOSE BEDSIDE TESTING (test code 204 mg/dL 70-110 H = GLUBED) GLUCOSE BEDSIDE [id number] 16:33:00 Test Item Value Reference Range Interpretation Comments GLUCOSE BEDSIDE TESTING (test code 115 mg/dL 70-110 H = GLUBED) - XR CHEST 1 [id number] 15:26:00 [facility] : 1980 Sex: F Name: HARLEEN MANZANO [facility] : 1980 Age/S: 41 / F [address] [address] Unit #: [id number] Loc: [place] [address] Phys: Pro Bustamante MD Acct: [id number] Dis Date: Status: ADM IN PHONE #: [phone] Exam Date: 11/30/2021 1510 FAX #: Reason: PICC PLACEMENT EXAMS: CPT: [id number] XR CHEST 1 V 66616 Fluoro Time: DAP (Gy m2): Air Kerma [...] appreciable pneumothorax. No radiographic evidence of acute card iopulmonary abnormality. 4. Incidental 1.7 cm superior right hilar nodular opacity, which may represent a prominent vessel or an object on the skin surface. A pulmonary nodule is not excluded. Low lungvolumes limit evaluation. Consider follow-up with a standing, PA/lateral 2 view chest radiograph versus CT. at 1526 Reported and signed by: Vance Culp M.D. CC: Yusuf Castle MD; Pro Pritchard MD PAGE 1 Signed Report Name: HARLEEN MANZANO [facility] : 1980 Age/S: 41 / F [address] [address] Unit #: [id number] Loc: [place] [address] Phys: Pro Bustamante MD Acct: [id number] Dis Date: Status: ADM IN PHONE #: [phone] Exam Date: 11/30/2021 1510 FAX #: Reason: PICC PLACEMENT EXAMS: CPT: [id number] XR CHEST 1 V 81308 Fluoro Time: DAP (Gy m2): Air Kerma (mGy): (Continued) Technologist: Tiffani Santiago, RT(R)(CT) Trnscb Date/Time: 11/30/2021 (1526) [email or web address] Orig Print D/T: S: 11/30/2021 (15 29) PAGE 2 Signed ReportGLUCOSE BEDSIDE [id number] 11:44:00 Test Item Value Reference Range Interpretation Comments GLUCOSE BEDSIDE TESTING (test code 214 mg/dL 70-110 H = GLUBED) GLUCOSE BEDSIDE [id number] 07:51:00 Test Item Value Reference Range Interpretation Comments GLUCOSE BEDSIDE TESTING (test code 133 mg/dL 70-110 H = GLUBED) GLUCOSE BEDSIDE [id number] 06:30:00 Test Item Value Reference Range Interpretation Comments GLUCOSE BEDSIDE TESTING (test code 138 mg/dL 70-110 H = GLUBED) BASIC METABOLIC [id number] 06:17:00 Test Item Value Reference Range Interpretation [...] CA) 8.2 MG/DL 8.5-10.1 L RENAL FUNCTION [id number] 06:17:00 Test Item Value Reference Range Interpretation Comments ALBUMIN (test code = ALB) 2.1 G/DL 3.4-5.0 L PHOSPHOROUS (test code = PHOS) 4.1 MG/DL 2.5-4.9 N CBC W/AUTO [id number] 06:10:00 Test Item Value Reference Range Interpretation [...] NO DIFF/SCN CRITERIA = MDIFF) UR SODIUM [id number] 05:12:00 Test Item Value Reference Range Interpretation [...] this result as normal/abnormal . UR CREATININE [id number] 05:12:00 Test Item Value Reference Range Interpretation Comments UR CREATININE RANDOM (test code = 76.6 MG/DL 30-125 N CREATU) UR SODIUM [id number] 05:11:00 Test Item Value Reference Range Interpretation Comments UR SODIUM RANDOM 37 MEQ/L The Referen ce Range and (test code = YADI) Method Per formance specificationsh ave not been established for this fluid. The test result should be correlated into the clinical context forinte rpretation. GLUCOSE BEDSIDE [id number] 20:59:00 Test Item Value Reference Range Interpretation Comments GLUCOSE BEDSIDE TESTING (test code 191 mg/dL 70-110 H = GLUBED) - [facility]BIR PEREZ [facility] [id number] 16:33:00 [facility] 1980 Sex: F Name: HARLEEN MANZANO [facility] : 1980 Age/S: 41 / F [address] Unit #: [id number] Loc: [place] [address] Phys: Jonathan Hernandez MD Acct: [id number] Dis Date: Status: ADM IN PHONE #: [phone] Exam Date: 11/29/2021 1600 FAX #: Reason: check on blood circulation/rule out PAD EXAMS: CPT: [id number] SHABBIR PEREZ [facility] [address] Location code: H5 Arterial Sonogram Left Lower Extremity Indication: check on blood circulation/rule out PAD. Comparison: None Technique: Toledo scale, color flow, andspectral Doppler imaging of the left lower extremity was performed. Findings: Triphasic flow with normal spectral analysis and normal peak systolic and diastolic velocities, is identified in the commonfemoral, superficial femoral, popliteal, anterior tibial, and posterior tibial arteries. Impression: 1. No evidence of hemodynamically significant stenosis. The degree of stenosis is determined by Nascet derived PSV criteria. [id number] Reported and signed by: Pro Ugarte M.D. CC: Yusuf Castle MD; Jonathan Hernandez MD Technologist: Susanne Emerson Trnsdb Date/Time: 11/29/2021 (163) Ciera PAGE 1 Signed Report Name: HARLEEN MANZANOland : 1980 Age/S: 41 / F [address] Unit #: [id number] Loc: [place] [address] Phys: Jonathan Hernandez MD Acct: [id number] Dis Date: Status: ADM IN PHONE #: [phone] Exam Date: 11/29/2021 1600 FAX #: Reason: check on blood circulation/rule out PAD EXAMS: CPT: [id number] [place] [address] (Continued) Orig Print D/T: S: 11/29/2021 (163) Probe: PAGE 2 Signed Report GLUCOSE BEDSIDE [id number] 15:14:00 Test Item Value Reference Range Interpretation Comments GLUCOSE BEDSIDE TESTING (test code 164 mg/dL 70-110 H = GLUBED) GLUCOSE BEDSIDE [id number] 11:18:00 Test Item Value Reference Range Interpretation Comments GLUCOSE BEDSIDE TESTING (test code 148 mg/dL 70-110 H = GLUBED) GLUCOSE BEDSIDE [id number] 06:48:00 Test Item Value Reference Range Interpretation Comments GLUCOSE BEDSIDE TESTING (test code 127 mg/dL 70-110 H = GLUBED) BASIC METABOLIC [id number] 05:57:00 Test Item Value Reference Range Interpretation [...] CA) 7.8 MG/DL 8.5-10.1 L RENAL FUNCTION [id number] 05:57:00 Test Item Value Reference Range Interpretation Comments ALBUMIN (test code = ALB) 2.0 G/DL 3.4-5.0 L PHOSPHOROUS (test code = PHOS) 4.3 MG/DL 2.5-4.9 N [id number] 05:57:00 Test Item Value Reference Range Interpretation Comments MAGNESIUM (test code = MAG) 1.8 MG/DL 1.8-2.4 N CBC W/AUTO [id number] 05:43:00 Test Item Value Reference Range Interpretation [...] NO DIFF/SCN CRITERIA = MDIFF) GLUCOSE BEDSIDE [id number] 20:57:00 Test Item Value Reference Range Interpretation Comments GLUCOSE BEDSIDE TESTING (test code 211 mg/dL 70-110 H = GLUBED) GLUCOSE BEDSIDE [id number] 17:11:00 Test Item Value Reference Range Interpretation Comments GLUCOSE BEDSIDE TESTING (test code 179 mg/dL 70-110 H = GLUBED) - RETRO [id number] 17:06:00 [facility] : 1980 Sex: F Name: HARLEEN MANZANO [facility] : 1980 Age/S: 41 / F [address] Unit #: [id number] Loc: [place] [address] Phys: Gabriela Higginbotham MD Acct: [id number] Dis Date: Status: ADM IN PHONE #:[phone] Exam Date: 2021 8156 FAX #: Reason: JAYLEEN/CKD EXAMS: CPT: [id number] [employer] [address] Location code: H5 Renal Sonogram Indication: JAYLEEN/CKD. Comparison: None. Technical factors: Longand short axis york scale images were obtained [...] x 4.7 cm. No hydronephrosis or perirenal fluid collection. Renal cortical thickness of 1.8 cmis normal. Parenchymal echogenicity is normal. No evidence of renal cyst or mass. Impression: 1. Normal exam. at 1706 Reported and signed by: Pro Ugarte M.D. CC: Gabriela Higginbotham MD; Yusuf Castle MD Technologist: Susanne Emerson [facility] Date/Time: 2021 (170) [email or web address] PAGE 1 Signed Report Name: HARLEEN MANZANO [facility] : 1980 Age/S: 41 / F [address] Unit #: [id number] Loc: [place] [address] Phys: Gabriela Higginbotham MD Acct: [id number] Dis Date: Status: ADM IN PHONE #: [phone] Exam Date: 2021 1643 FAX #: Reason: JAYLEEN/CKD EXAMS: CPT: [id number] [employer] [address] (Continued) Orig Print D/T: S: 2021 (1709) Probe: PAGE 2 Signed Report GLUCOSE BEDSIDE [id number] 11:17:00 Test Item Value Reference Range Interpretation Comments GLUCOSE BEDSIDE TESTING (test code 170 mg/dL 70-110 H = GLUBED) GLUCOSE BEDSIDE [id number] 07:37:00 Test Item Value Reference Range Interpretation Comments GLUCOSE BEDSIDE TESTING (test code 229 mg/dL 70-110 H = GLUBED) BASIC METABOLIC [id number] 05:48:00 Test Item Value Reference Range Interpretation [...] code = CA) 8.0 MG/DL 8.5-10.1 L [id number] 05:48:00 Test Item Value Reference Range Interpretation Comments PHOSPHOROUS (test code = PHOS) 3.7 MG/DL 2.5-4.9 N [id number] 05:48:00 Test Item Value Reference Range Interpretation Comments MAGNESIUM (test code = MAG) 1.3 MG/DL 1.8-2.4 L GLUCOSE BEDSIDE [id number] 15:59:00 Test Item Value Reference Range Interpretation Comments GLUCOSE BEDSIDE TESTING (test code 262 mg/dL 70-110 H = GLUBED) GLUCOSE BEDSIDE [id number] 11:13:00 Test Item Value Reference Range Interpretation Comments GLUCOSE BEDSIDE TESTING (test code 205 mg/dL 70-110 H = GLUBED) GLUCOSE BEDSIDE [id number] 10:16:00 Test Item Value Reference Range Interpretation Comments GLUCOSE BEDSIDE TESTING (test code 182 mg/dL 70-110 H = GLUBED) BASIC METABOLIC [id number] 07:08:00 Test Item Value Reference Range Interpretation [...] CA) 8.0 MG/DL 8.5-10.1 L HCG SERUM [id number] 07:08:00 Test Item Value Reference Range Interpretation Comments HCG SERUM QUAL (test SERUM NEGATIVE SCREEN NEGATIVE code = HCGQL) VANCOMYCIN [id number] 06:49:00 Test Item Value Reference Range Interpretation Comments VANCOMYCIN TROUGH (test code = 27.5 mcG/ML 10-20 H VANCT) CBC W/AUTO [id number] 06:38:00 Test Item Value Reference Range Interpretation [...] NO DIFF/SCN CRITERIA = MDIFF) GLUCOSE BEDSIDE [id number] 20:22:00 Test Item Value Reference Range Interpretation Comments GLUCOSE BEDSIDE TESTING (test code 273 mg/dL 70-110 H = GLUBED) GLUCOSE BEDSIDE [id number] 16:55:00 Test Item Value Reference Range Interpretation Comments GLUCOSE BEDSIDE TESTING (test code 265 mg/dL 70-110 H = GLUBED) - MRI LOW EXT W/O CONT [id number] 16:18:00 [facility] 1980 Sex: F FAX: Yusuf Finch MD [phone] Camps: PM St: ADM FAX: Ryanne Alonso [phone] Name: HARLEEN MANZANO [facility] : 1980 Age/S: 40/F [address] Unit #: [id number] Loc: [address] [place], [place] [address]Jynk: Jose Garland MD Acct: [id number] Dis Date: Status: ADM IN PHONE #: [phone] Exam Date: 11/26/2021 1420 FAX #: Reason: Left foot osteomyelitis 5the toe, rule out 4th EXAMS: CPT: [id number] [place] L[place] EXT W/[place] [address] Exam: MRI left foot without contrast Dictation [...] 1 Signed Report (CONTINUED) FAX: Yusuf Finch [facility] [phone] Camps: PM St: ADM FAX: Ryanne Alonso [phone] Name: HARLEEN MANZANO [facility] : 1980 Age/S: 40/F [address] Unit #: [id number] Loc: [address] [place] [address] Phys: Jose Garland MD Acct: [id number] Dis Date: Status: ADM IN PHONE #: [phone] Exam Date: 11/26/2021 1420 FAX #: Reason: Left foot osteomyelitis 5the toe, rule out 4th EXAMS: CPT: [id number] MRI LOW EXT W/[place] [address] (Continued) at 1618 Reported and signed by: Jimmy Aarngo M.D. CC: Yusuf Castle MD; Jose Garland MD Technologist: Sandra Moncada RT(R)() Transcribed Date/Time/By: 11/26/2021 (1618) :[email or web address] Orig Print D/T: S: 11/26/2021 (1627) PAGE 2 Signed ReportGLUCOSE BEDSIDE TESTING 2021-11-26 12:04:00 Test Item Value Reference Range Interpretation Comments GLUCOSE BEDSIDE TESTING (test code 246 mg/dL 70-110 H = GLUBED) GLUCOSE BEDSIDE [id number] 08:10:00 Test Item Value Reference Range Interpretation Comments GLUCOSE BEDSIDE TESTING (test code 213 mg/dL 70-110 H = GLUBED) GLUCOSE BEDSIDE [id number] 22:01:00 Test Item Value Reference Range Interpretation Comments GLUCOSE BEDSIDE TESTING (test code 238 mg/dL 70-110 H = GLUBED) - XR CHEST 1 [id number] 21:35:00 [facility] : 1980 Sex: F Name: HARLEEN MANZANO [facility] : 1980 Age/S: 40 / F [id number] Unit #: [id number] Loc: [place] [address] Phys: Yusuf Castle MD Acct: [id number] Dis Date: Status: ADM IN PHONE #: [phone] Exam Date: 11/25/20211920 FAX #: Reason: fever EXAMS: CPT: [id number] XR CHEST 1 V 60964 Fluoro Time: DAP (Gy m2): Air Kerma (mGy): HISTORY: Fever Location: C3 COMPARISON:10/15/2021 FINDINGS:Heart size is upper normal. The lungs are clear of focal consolidation. No effusion, pneumothorax, or acute osseous abnormality. IMPRESSION: 1. No focal consolidation. No other acute abnormality. Alva ctronically Signed by Faizan Cardenas Case on 11/25/2021 at 2135 Reported and signed by: Timi Vazquez M.D. CC: Yusuf Castle MD PAGE 1 Signed Report Name: HARLEEN MANZANO [place] :1980 Age/S: 40 / F [address] Unit #: [id number] Loc: [place] [address] Phys: Yusuf Castle MD Acct: [id number] Dis Date: Status: ADM IN PHONE #: [phone] Exam Date: 11/25/20211920 FAX #: Reason: fever EXAMS: CPT: [id number] XR CHEST 1 V 81438 Fluoro Time: DAP (Gy m2): Air Kerma (mGy): (Continued) Technologist: Olga Acosta, RT(R)(CT) Trnscb Date/Time: 11/25/2021 (2134) [email or web address] Orig Print D/T: S: 11/25/2021 (2137) PAGE 2 Signed ReportLACTIC [id number] 19:31:00 Test Item Value Reference Range Interpretation Comments LACTIC ACID (test code = LACT) 1.0 mmol/L 0.4-2.0 COVID 19 Asymptomatic IH [id number] 19:03:00 Test Item Value Reference Range Interpretation [...] nd symptoms consis tent with COVID-19. LACTIC [id number] 17:25:00 Test Item Value Reference Range Interpretation Comments LACTIC ACID (test code = LACT) 2.7 mmol/L 0.4-2.0 H BASIC METABOLIC [id number] 17:24:00 Test Item Value Reference Range Interpretation [...] 8.5-10.1 N Completed by Nursing: NOHEPATIC FUNCTION [id number] 17:24:00 Test Item Value Reference Range Interpretation [...] = ALKP) Completed by Nursing: NOTROP-I HIGH [id number] 17:24:00 Test Item Value Reference Range Interpretation [...] URLs may varyby method. Completed by Nursing: OTTONIEL W/AUTO [id number] 16:59:00 Test Item Value Reference Range Interpretation [...] CRITERIA = MDIFF) - XR FOOT 3+V [id number] 16:43:00 [facility] : 1980 Sex: F Name: HARLEEN MANZANO [facility] : 1980 Age/S: 40 / F [address] Unit #: [id number] Loc: [place] [address] Phys: Michael Wu DO Acct: [id number] Dis Date: Status: PRE ER PHONE #: [phone] Exam Date: 11/25/2021 2634 FAX #: Reason: infection EXAMS: CPT: [id number] XR FOOT 3+[place] [address] Fluoro Time: DAP (Gy m2): Air Kerma [...] wound or potentially a gas gangrene. at 4993 Reported and signed by: Christine Marshall M.D. CC: Michael Wu DO PAGE 1 Signed Report Name: HARLEEN JEONG [facility] : 1980 Age/S: 40 / F [address] Unit #: [id number] Loc: [place] [address] Phys: Michael Wu DO Acct: [id number] Dis Date: Status: PRE ER PHONE #: [phone] Exam Date: 11/25/2021 1629 FAX #: Reason: infection EXAMS: CPT: [id number] XR FOOT 3+[place] [address] Fluoro Time: DAP (Gy m2): Air Kerma (mGy): (Continued) Technologist: Nicholas Mas RT(R)(CT) Trnscb Date/Time: 11/25/2021 (1642) [email or web address] Orig Print D/T: S: 11/25/2021 (6812) PAGE 2 [facility] ART[facility] BLOOD [id number] 11:02:00 Test Item Value Reference Range Interpretation Comments POC ARTERIAL BLOOD GAS PH (test < 6.999 7.35-7.45 LL code = POCPHA) POC ARTERIAL BLOOD GAS PCO2 32.3 mmHg 35.0-45 L (test code = KWDZOR0F) POC TCO2 ARTERIAL (test code = 7.8 POCTCO2) POC ARTERIAL BLOOD GAS PO2 (test 546.0 mmHg 80-100.0 HH code = QRRTN0L) POC HCO3 ARTERIAL (test code = 6.8 MMOL/L 22.0-26.0 LL WCGURQ9K) POC BASE EXCESS (test code = -25.6 MMOL/L -4.0-4.0 L POCBEA) POC O2 SATURATION (test code = 99.9 % 90-100 N POCO2S) FIO2 (test code = FIO2A) 100 % PaO2/FiO2 (test code = [id number]) 546.00 mm/Hg ABG DELIVERY (test code = [...] (test code = Positive ALLENS) BASIC METABOLIC [id number] 11:02:00 Test Item Value Reference Range Interpretation [...] POCGLU) > 700 MG/DL 70-110 H HEMOGLOBIN [id number] 11:02:00 Test Item Value Reference Range Interpretation Comments HEMOGLOBIN ABG (test code = 13.0 G/DL 11.0-15.0 N HGB/ABG) [id number] 11:02:00 Test Item Value Reference Range Interpretation Comments HEMATOCRIT (test code = HCT/ABG) 38 % 33.0-45.0 N POC LACTIC [id number] 11:02:00 Test Item Value Reference Range Interpretation Comments POC LACTIC ACID (test code = 1.5 mmol/l 0.9-1.7 N POCLAC) GLUCOSE [id number] 15:34:00 Test Item Value Reference Range Interpretation Comments GLUCOSE BEDSIDE (test 302 MG/DL 70-110 H Perfor med by certified code = GLUBED) 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 [facility] GLUCOSE [id number] 11:48:00 Test Item Value Reference Range Interpretation Comments GLUCOSE BEDSIDE (test 191 MG/DL 70-110 H Perfor med by certified code = GLUBED) 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 [facility] GLUCOSE [id number] 09:07:00 Test Item Value Reference Range Interpretation Comments GLUCOSE BEDSIDE (test 211 MG/DL 70-110 H Perfor med by certified code = GLUBED) 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 [facility] RENAL FUNCTION [id number] 07:20:00 Test Item Value Reference Range Interpretation [...] 4.4 MG/DL 2.5-4.9 N = PHOS) GLUCOSE [id number] 22:27:00 Test Item Value Reference Range Interpretation Comments GLUCOSE BEDSIDE (test 153 MG/DL 70-110 H Perfor med by certified code = GLUBED) 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 [facility] GLUCOSE [id number] 17:09:00 Test Item Value Reference Range Interpretation Comments GLUCOSE BEDSIDE (test 172 MG/DL 70-110 H Perfor med by certified code = GLUBED) 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 [facility] GLUCOSE [id number] 11:34:00 Test Item Value Reference Range Interpretation Comments GLUCOSE BEDSIDE (test 173 MG/DL 70-110 H Perfor med by certified code = GLUBED) 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 [facility] CBC W/AUTO [id number] 08:04:00 Test Item Value Reference Range Interpretation [...] REQUIRED (test code NO = MDIFF) GLUCOSE [id number] 07:48:00 Test Item Value Reference Range Interpretation Comments GLUCOSE BEDSIDE (test 240 MG/DL 70-110 H [facility] med by certified code = GLUBED) 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 [facility] RENAL FUNCTION [id number] 07:43:00 Test Item Value Reference Range Interpretation [...] = 4.3 MG/DL 2.5-4.9 N PHOS) GLUCOSE [id number] 23:43:00 Test Item Value Reference Range Interpretation Comments GLUCOSE BEDSIDE (test 286 MG/DL 70-110 H Perfor med by certified code = GLUBED) 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 [facility] GLUCOSE [id number] 17:13:00 Test Item Value Reference Range Interpretation Comments GLUCOSE BEDSIDE (test 308 MG/DL 70-110 H Perfor med by certified code = GLUBED) 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 [facility] GLUCOSE [id number] 12:07:00 Test Item Value Reference Range Interpretation Comments GLUCOSE BEDSIDE (test 332 MG/DL 70-110 H Perfor med by certified code = GLUBED) 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 [facility] CBC W/AUTO [id number] 08:50:00 Test Item Value Reference Range Interpretation [...] (test code NO = MDIFF) RENAL FUNCTION [id number] 08:18:00 Test Item Value Reference Range Interpretation [...] = 5.0 MG/DL 2.5-4.9 H PHOS) GLUCOSE [id number] 08:05:00 Test Item Value Reference Range Interpretation Comments GLUCOSE BEDSIDE (test 325 MG/DL 70-110 H Perfor med by certified code = GLUBED) 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 [facility] GLUCOSE [id number] 06:47:00 Test Item Value Reference Range Interpretation Comments GLUCOSE BEDSIDE (test 301 MG/DL 70-110 H Perfor med by certified code = GLUBED) 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 [facility] GLUCOSE [id number] 21:37:00 Test Item Value Reference Range Interpretation Comments GLUCOSE BEDSIDE (test 237 MG/DL 70-110 H Perfor med by certified code = GLUBED) 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 [facility] GLUCOSE [id number] 17:58:00 Test Item Value Reference Range Interpretation Comments GLUCOSE BEDSIDE (test 207 MG/DL 70-110 H Perfor med by certified code = GLUBED) 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 [facility] GLUCOSE [id number] 12:39:00 Test Item Value Reference Range Interpretation Comments GLUCOSE BEDSIDE (test 230 MG/DL 70-110 H Perfor med by certified code = GLUBED) 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 [facility] GLUCOSE [id number] 11:34:00 Test Item Value Reference Range Interpretation Comments GLUCOSE BEDSIDE (test 209 MG/DL 70-110 H Perfor med by certified code = GLUBED) 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 [facility] BASIC METABOLIC [id number] 08:14:00 Test Item Value Reference Range Interpretation [...] 8.9 mg/dL 8.0-10.5 N CA) CBC W/AUTO [id number] 07:50:00 Test Item Value Reference Range Interpretation [...] REQUIRED (test code NO = MDIFF) GLUCOSE [id number] 07:35:00 Test Item Value Reference Range Interpretation Comments GLUCOSE BEDSIDE (test 140 MG/DL 70-110 H Perfor med by certified code = GLUBED) 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 [facility] GLUCOSE [id number] 20:28:00 Test Item Value Reference Range Interpretation Comments GLUCOSE BEDSIDE (test 118 MG/DL 70-110 H Perfor med by certified code = GLUBED) 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 [facility] GLUCOSE [id number] 17:06:00 Test Item Value Reference Range Interpretation Comments GLUCOSE BEDSIDE (test 105 MG/DL 70-110 N Perfor med by certified code = GLUBED) 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 [facility] GLUCOSE [id number] 12:03:00 Test Item Value Reference Range Interpretation Comments GLUCOSE BEDSIDE (test 96 MG/DL 70-110 N Perfor med by certified code = GLUBED) 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 [facility] CBC W/AUTO [id number] 10:25:00 Test Item Value Reference Range Interpretation [...] 3/uL 0.0-0.1 N code = NRBC#) GLUCOSE [id number] 08:15:00 Test Item Value Reference Range Interpretation Comments GLUCOSE BEDSIDE (test 87 MG/DL 70-110 N Perfor med by certified code = GLUBED) 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 [facility] BASIC METABOLIC [id number] 08:13:00 Test Item Value Reference Range Interpretation [...] = 8.7 mg/dL 8.0-10.5 N CA) GLUCOSE [id number] 06:26:00 Test Item Value Reference Range Interpretation Comments GLUCOSE BEDSIDE (test 90 MG/DL 70-110 N Perfor med by certified code = GLUBED) 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 [facility] GLUCOSE [id number] 04:43:00 Test Item Value Reference Range Interpretation Comments GLUCOSE BEDSIDE (test 67 MG/DL 70-110 L Perfor med by certified code = GLUBED) 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 [facility] GLUCOSE [id number] 20:30:00 Test Item Value Reference Range Interpretation Comments GLUCOSE BEDSIDE (test 62 MG/DL 70-110 L Perfor med by certified code = GLUBED) 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 [facility] GLUCOSE [id number] 16:54:00 Test Item Value Reference Range Interpretation Comments GLUCOSE BEDSIDE (test 73 MG/DL 70-110 N Perfor med by certified code = GLUBED) 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 [facility] GLUCOSE [id number] 11:45:00 Test Item Value Reference Range Interpretation Comments GLUCOSE BEDSIDE (test 118 MG/DL 70-110 H Perfor med by certified code = GLUBED) 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 [facility] GLUCOSE [id number] 08:00:00 Test Item Value Reference Range Interpretation Comments GLUCOSE BEDSIDE (test 52 MG/DL 70-110 L Perfor med by certified code = GLUBED) 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 [facility] BASIC METABOLIC [id number] 04:21:00 Test Item Value Reference Range Interpretation [...] 9.1 mg/dL 8.0-10.5 N CA) CBC W/O [id number] 04:04:00 Test Item Value Reference Range Interpretation [...] 11.3 fL 7.0-9.0 H = MPV) GLUCOSE [id number] 00:49:00 Test Item Value Reference Range Interpretation Comments GLUCOSE BEDSIDE (test 105 MG/DL 70-110 N Perfor med by certified code = GLUBED) 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 [facility] GLUCOSE [id number] 21:40:00 Test Item Value Reference Range Interpretation Comments GLUCOSE BEDSIDE (test 107 MG/DL 70-110 N [facility] med by certified code = GLUBED) 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 [facility] GLUCOSE [id number] 16:44:00 Test Item Value Reference Range Interpretation Comments GLUCOSE BEDSIDE (test 142 MG/DL 70-110 H Perfor med by certified code = GLUBED) 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 [facility] GLUCOSE [id number] 13:38:00 Test Item Value Reference Range Interpretation Comments GLUCOSE BEDSIDE (test 76 MG/DL 70-110 N Perfor med by certified code = GLUBED) 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 [facility] GLUCOSE [id number] 10:04:00 Test Item Value Reference Range Interpretation Comments GLUCOSE BEDSIDE (test 92 MG/DL 70-110 N Perfor med by certified code = GLUBED) 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 [facility] COMPREHENSIVE METABOLIC [id number] 08:10:00 Test Item Value Reference Range Interpretation [...] 20-125 H TOTAL (test code = ALKP) [id number] 08:10:00 Test Item Value Reference Range Interpretation Comments PHOSPHOROUS (test code = PHOS) 4.5 MG/DL 2.5-4.9 N [id number] 08:10:00 Test Item Value Reference Range Interpretation Comments MAGNESIUM (test code = MAG) 2.32 mg/dL 1.80-2.40 N CALCIUM [id number] 08:10:00 Test Item Value Reference Range Interpretation Comments CALCIUM IONIZED (test code = TOMER) 1.21 MMOL/L 1.12-1.32 N CBC W/AUTO [id number] 07:53:00 Test Item Value Reference Range Interpretation [...] REQUIRED (test code NO = MDIFF) GLUCOSE [id number] 01:53:00 Test Item Value Reference Range Interpretation Comments GLUCOSE BEDSIDE (test 164 MG/DL 70-110 H Perfor med by certified code = GLUBED) 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 [facility] GLUCOSE [id number] 16:56:00 Test Item Value Reference Range Interpretation Comments GLUCOSE BEDSIDE (test 139 MG/DL 70-110 H Perfor med by certified code = GLUBED) 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 [facility] GLUCOSE [id number] 14:15:00 Test Item Value Reference Range Interpretation Comments GLUCOSE BEDSIDE (test 165 MG/DL 70-110 H Perfor med by certified code = GLUBED) 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 [facility] GLUCOSE [id number] 11:28:00 Test Item Value Reference Range Interpretation Comments GLUCOSE BEDSIDE (test 164 MG/DL 70-110 H Perfor med by certified code = GLUBED) 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 [facility] GLUCOSE [id number] 08:42:00 Test Item Value Reference Range Interpretation Comments GLUCOSE BEDSIDE (test 148 MG/DL 70-110 H Perfor med by certified code = GLUBED) 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 [facility] COMPREHENSIVE METABOLIC [id number] 07:34:00 Test Item Value Reference Range Interpretation [...] 20-125 H TOTAL (test code = ALKP) [id number] 07:34:00 Test Item Value Reference Range Interpretation Comments PHOSPHOROUS (test code = PHOS) 4.8 MG/DL 2.5-4.9 N [id number] 07:34:00 Test Item Value Reference Range Interpretation Comments MAGNESIUM (test code = MAG) 2.39 mg/dL 1.80-2.40 N CALCIUM [id number] 07:34:00 Test Item Value Reference Range Interpretation Comments CALCIUM IONIZED (test code = TOMER) 1.20 MMOL/L 1.12-1.32 N CBC W/AUTO [id number] 07:14:00 Test Item Value Reference Range Interpretation [...] 0.00 x10 3/uL 0.0-0.1 N NRBC#) GLUCOSE [id number] 06:18:00 Test Item Value Reference Range Interpretation Comments GLUCOSE BEDSIDE (test 176 MG/DL 70-110 H Perfor med by certified code = GLUBED) 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 [facility] GLUCOSE [id number] 01:38:00 Test Item Value Reference Range Interpretation Comments GLUCOSE BEDSIDE (test 249 MG/DL 70-110 H Perfor med by certified code = GLUBED) 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 [facility] - XR CHEST 1 [id number] 00:00:00 [facility] : 1980 Sex: F FAX: Laura Trinh MD [phone] [place]: St: ADM FAX: J Carlos Franz MD [phone] Name: HARLEEN MANZANO [facility] : 1980 Age/S: 40/F [address] [place] [address] Unit #: [id number] Loc: GEliasM328 [place] [address] Phys: J Carlos Gomez MD Acct: [id number] Dis Date: Status: ADM IN PHONE #: [phone] Exam Date: 10/15/2021 0608 FAX #: [phone] Reason: INTUBATED/COVID EXAMS: CPT CODE: [id number] XR CHEST 1 V 46028 PROCEDURE INFORMATION: Exam: XR Chest Exam date [...] Date/Time/By: 10/15/2021 (0740) : By: [email or web address] Orig Prin t D/T: S: 10/15/2021 (0741) PAGE 1 Signed ReportGLUCOSE [id number] 21:44:00 Test Item Value Reference Range Interpretation Comments GLUCOSE BEDSIDE (test 224 MG/DL 70-110 H Perfor med by certified code = GLUBED) 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 [facility] GLUCOSE [id number] 20:15:00 Test Item Value Reference Range Interpretation Comments GLUCOSE BEDSIDE (test 282 MG/DL 70-110 H Perfor med by certified code = GLUBED) 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 [facility] GLUCOSE [id number] 16:30:00 Test Item Value Reference Range Interpretation Comments GLUCOSE BEDSIDE (test 286 MG/DL 70-110 H Perfor med by certified code = GLUBED) 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 [facility] GLUCOSE [id number] 10:22:00 Test Item Value Reference Range Interpretation Comments GLUCOSE BEDSIDE (test 311 MG/DL 70-110 H Perfor med by certified code = GLUBED) 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 [facility] COMPREHENSIVE METABOLIC [id number] 05:53:00 Test Item Value Reference Range Interpretation [...] 20-125 H TOTAL (test code = ALKP) [id number] 05:53:00 Test Item Value Reference Range Interpretation Comments PHOSPHOROUS (test code = PHOS) 5.2 MG/DL 2.5-4.9 H [id number] 05:53:00 Test Item Value Reference Range Interpretation Comments MAGNESIUM (test code = MAG) 2.51 mg/dL 1.80-2.40 H CALCIUM [id number] 05:53:00 Test Item Value Reference Range Interpretation Comments CALCIUM IONIZED (test code = TOMER) 1.18 MMOL/L 1.12-1.32 N CBC W/AUTO [id number] 05:34:00 Test Item Value Reference Range Interpretation [...] code NO = MDIFF) POC ARTERIAL BLOOD [id number] 03:13:00 Test Item Value Reference Range Interpretation Comments POC ARTERIAL BLOOD GAS PH (test 7.376 7.35-7.45 N code = POCPHA) POC ARTERIAL BLOOD GAS PCO2 35.9 mmHg 35.0-45 N (test code = XQHQAT6U) POC TCO2 ARTERIAL (test code = 22.2 POCTCO2) POC ARTERIAL BLOOD GAS PO2 (test 93.8 mmHg 80-100.0 N code = HYXIU6M) POC HCO3 ARTERIAL (test code = 21.1 MMOL/L 22.0-26.0 L MWGZCT9L) POC BASE EXCESS (test code = -4.1 MMOL/L -4.0-4.0 L POCBEA) POC O2 SATURATION (test code = 97.2 % 90-100 N POCO2S) FIO2 (test code = FIO2A) 40 % PaO2/FiO2 (test code = UXX2IVW3) 234.50 mm/Hg ABG DELIVERY (test code = CARLOS) Adult Vent ABG VENT MODE (test code = AC MODEA) ABG VENT RESP RATE (test code = 18 /MIN RRA) ABG TIDAL VOLUME (test code = 500 ml TVA) ABG PEEP (test code = PEEPA) 5 cmH2O ABG SITE (test code = SITEA) R Radial SINTIA'S TEST (test code = Positive ALLENS) GLUCOSE [id number] 00:36:00 Test Item Value Reference Range Interpretation Comments GLUCOSE BEDSIDE (test 303 MG/DL 70-110 H Perfor med by certified code = GLUBED) 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 [facility] [facility] - XR CHEST 1 [id number] 00:00:00 [facility] : 1980 Sex: F FAX: Laura Trinh MD [phone] [place]: St: [facility] FAX: Y J Carlos Gomez MD [phone] Name: HARLEEN MANZANO [facility] : 1980 Age/S: 40/F [address] [place] [address] Unit #: [id number] Loc: G.M328 [place] [address] Phys: J Carlos Gomez MD Acct: [id number] Dis Date: Status: ADM IN PHONE #: [phone] Exam Date: 10/14/2021641 FAX #: [phone] Reason: INTUBATED/COVID EXAMS: CPT CODE: [id number] XR CHEST1 V 59140 PROCEDURE INFORMATION: Exam: XR Chest Exam date and time: 10/14/2021 5:53 AM Age: 40 years o ld Clinical indication: Other: Intubated/covid TECHNIQUE: Imaging protocol: [...] This may be due to pulmonary edema oratypical pneumonitis. 2. There are opacities in the right lung base. This may be due to the alveolarcomponent of pulmonary edema, atelectasis, or pneumonia. at 0755 Reported and signed by: Abdi Bradford M.D. CC: Laura Trinh MD; J Carlos Gomez MD Technologist: RT Ronn(R) Trnscrd Date/Time/By: 10/14/2021 (754) : By: [email or web address] Orig Print D/T: S: 10/14/2021 (754) PAGE 1 Signed ReportGLUCOSE [id number] 20:12:00 Test Item Value Reference Range Interpretation Comments GLUCOSE BEDSIDE (test 240 MG/DL 70-110 H Perfor med by certified code = GLUBED) 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 [facility] GLUCOSE [id number] 17:06:00 Test Item Value Reference Range Interpretation Comments GLUCOSE BEDSIDE (test 226 MG/DL 70-110 H Perfor med by certified code = GLUBED) 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 [facility] GLUCOSE [id number] 14:00:00 Test Item Value Reference Range Interpretation Comments GLUCOSE BEDSIDE (test 215 MG/DL 70-110 H Perfor med by certified code = GLUBED) 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 [facility] GLUCOSE [id number] 08:30:00 Test Item Value Reference Range Interpretation Comments GLUCOSE BEDSIDE (test 188 MG/DL 70-110 H Perfor med by certified code = GLUBED) 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 [facility] COMPREHENSIVE METABOLIC [id number] 06:13:00 Test Item Value Reference Range Interpretation [...] 20-125 H TOTAL (test code = ALKP) [id number] 06:13:00 Test Item Value Reference Range Interpretation Comments PHOSPHOROUS (test code = PHOS) 4.0 MG/DL 2.5-4.9 [id number] 06:13:00 Test Item Value Reference Range Interpretation Comments MAGNESIUM (test code = MAG) 2.46 mg/dL 1.80-2.40 H VITAMIN [id number] 06:13:00 Test Item Value Reference Range Interpretation Comments VITAMIN B12 (test code = VITB12) 1579 pg/mL 193-986 H CALCIUM [id number] 06:13:00 Test Item Value Reference Range Interpretation Comments CALCIUM IONIZED (test code = TOMER) 1.16 MMOL/L 1.12-1.32 N CORTISOL [id number] 06:13:00 Test Item Value Reference Range Interpretation Comments CORTISOL AM (test 19.35 ug/dL Reference Interval: code = CORTAM) 2mo-13yrs: 2. 4-22.9 ug/dL 14-15yrs( Male): 2.5-22.9 ug/dL 14-15yrs(Female ): 2.5-28.6 ug/dL 16-18yrs(M/F): 2.4-28.6 ug/dLAdults(M/F ) AM: 4.3-22.4 ug/dLAdults(M/F ) PM: 3.1-16.7 ug/dL C REACTIVE [id number] 05:58:00 Test Item Value Reference Range Interpretation Comments C REACTIVE PROTEIN (test code = 116.0 mg/L <10.0 H CRP) CBC W/AUTO [id number] 05:51:00 Test Item Value Reference Range Interpretation [...] DIFF REQUIRED (test code NO = MDIFF) [id number] 05:51:00 Test Item Value Reference Range Interpretation Comments AMMONIA (test code = AMM) < 10 umol/L 11-35 L UA RFLX MICR CULT IF [id number] 04:43:00 Test Item Value Reference Range Interpretation [...] MUCU) TRACE /LPF NONE SEEN UR HCG [id number] 04:33:00 Test Item Value Reference Range Interpretation Comments UR HCG QUAL (test code = HCGQLU) NEGATIVE NEGATIVE POC ARTERIAL BLOOD [id number] 03:24:00 Test Item Value Reference Range Interpretation Comments POC ARTERIAL BLOOD GAS PH (test 7.404 7.35-7.45 N code = POCPHA) POC ARTERIAL BLOOD GAS PCO2 34.8 mmHg 35.0-45 L (test code = WOFGUU6I) POC TCO2 ARTERIAL (test code = 22.9 POCTCO2) POC ARTERIAL BLOOD GAS PO2 (test 157.5 mmHg 80-100.0 H code = NERVM8Z) POC HCO3 ARTERIAL (test code = 21.8 MMOL/L 22.0-26.0 L NQGXIK6F) POC BASE EXCESS (test code = -2.9 MMOL/L -4.0-4.0 N POCBEA) POC O2 SATURATION (test code = 99.4 % 90-100 N POCO2S) FIO2 (test code = FIO2A) 40 % PaO2/FiO2 (test code = FBI5ARX9) 393.75 mm/Hg ABG DELIVERY (test code = CARLOS) Adult Vent ABG VENT MODE (test code = AC MODEA) ABG VENT RESP RATE (test code = 18 /MIN RRA) ABG TIDAL VOLUME (test code = 500 ml TVA) ABG PEEP (test code = PEEPA) 5 cmH2O ABG SITE (test code = SITEA) R Radial SINTIA'S TEST (test code = Positive ALLENS) GLUCOSE [id number] 01:22:00 Test Item Value Reference Range Interpretation Comments GLUCOSE BEDSIDE (test 113 MG/DL 70-110 H Perfor med by certified code = GLUBED) 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 [employer] [facility] - XR CHEST 1 [id number] 00:00:00 [facility] : 1980 Sex: F FAX: Laura Trinh MD [phone] [place]: St: ADM FAX: Y J Carlos Gomez MD [phone] Name: HARLEEN MANZANO [facility] : 1980 Age/S: 40/F [address] [place] [address] Unit #: [id number] Loc: G.M328 [place] [address] Phys: J Carlos Gomez MD Acct: [id number] Dis Date: Status: ADM IN PHONE #: [phone] Exam Date: 10/13/2021615 FAX #: [phone] Reason: INTUBATED/COVID EXAMS: CPT CODE: [id number] XR CHEST 1 V 60886 PROCEDURE INFORMATION: Exam: XR Chest Exam date and time: 10/13/2021 5:43 AM Age: 40 years old Clinical indication: Other: Intubated/covid TECHNIQUE: Imaging protocol: Radiologic exam of the chest. Views: 1 view. COMPARISON: CR XR CHEST 1V 10/12/2021 5:50 AM FINDINGS: Tubes, catheters and devices: Right jugular line, endotracheal tube, and gastric tube are not significantly changed. Lungs: No c hange in mild patchy airspace opacities and interstitial infiltrates bilaterally. Pleural spaces: Nopleural effusion. No pneumothorax. Heart/Mediastinum: Heart size is within normal limits. Vasculature is unremarkable. Bones/joints: No acute abnormality. IMPRESSION: Stable chest. at 0658 Reported and signed by: Jimmy Figueroa M.D. CC: Laura Trinh MD; J Carlos Gomez MD Technologist: RT Destiny(Gee) Trnscrd Date/Time/By: 10/13/2021 (657) : By: [email or web address] Orig Print D/T: S: 10/13/2021 (67) PAGE 1 Signed Report- XR FOOT 2 VIEWS [id number] 00:00:00 [facility] : 1980 Sex: F FAX: Deonte Huff MD [place]: St: [facility] FAX: Laura Trinh MD [phone] Name: HARLEEN MANZANO [facility] : 1980Age/S: 40/F [address] [place] [address] Unit #: [id number] Loc: G.M328 [place] [address] Phys: Deonte Higginbotham MD Acct: [id number] Dis Date: Status: ADM IN PHONE #: [phone] Exam Date: 10/13/2021 1328 FAX #: [phone] Reason: R/O OM EXAMS: CPT CODE: [id number] XR FOOT [address] [place] [address] PROCEDURE INFORMATION: Exam: XR Right Foot Exam date and time: 10/13/2021 11:22 AM Age: 40 years old Clinical indication: Condition or disease; Other: Rule out osteomyelitis; Additional info: R/O om; signs and symptoms not specified. TECHNIQUE: Imaging protocol: Radiologic exam of the Right foot. Views: 1 or 2 views.AP and Lateral COMPARISON: No relevant prior studies available. FINDINGS: Limitations: Bandage and other material external of the patient. Absence of oblique image may limit assessment. Bones/joints: T here is no fracture, dislocation or bone destructive [...] is further concern, follow-up radiographs, CT or PAGE 1 Signed Report (CONTINUED) FAX: Deonte Huff MD [place]: St: ADM FAX: Laura Trinh MD Name: HARLEEN MANZANO [facility] : 1980 Age/S: 40/F [address] [place] [address] Unit #: [id number] Loc: HaroldoM[address] [place] [address] Phys: Deonte Higginbotham MD Acct: [id number] Dis Date: Status: ADM IN PHONE #: [phone] Exam Date: 10/13/20218 FAX #: [phone] Reason: R/O OM EXAMS: CPT CODE: [id number] XR FOOT [address] [place] [address] <Continued> MRI may be obtained for complete [...] MD Technologist: RT Paradise(R) Trnscrd Date/Time/By: 10/13/2021 (7879) : By: Bryanna Orig Print D/T: S: 10/13/2021 (2376) PAGE 2 Signed ReportGLUCOSE [id number] 21:23:00 Test Item Value Reference Range Interpretation Comments GLUCOSE BEDSIDE (test 112 MG/DL 70-110 H Perfor med by certified code = GLUBED) 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 [facility] GLUCOSE [id number] 17:02:00 Test Item Value Reference Range Interpretation Comments GLUCOSE BEDSIDE (test 92 MG/DL 70-110 N Perfor med by certified code = GLUBED) 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 [facility] [id number] 13:47:00 Test Item Value Reference Range Interpretation Comments LUDMA86Khrvprlc POSITIVE Negative A Note: this e ntry is for (test code = TRACKING purpos es only and ZXWQS65Lrphgsne) the testwas done at an outside [facility] y. See specimen commen ts fororiginal lab oratory and specimen date. The test was performed at: [facility]: 10/08/21Patient's account number from transferring facility: [id number] patient's current lab results are: PositiveGLUCOSE [id number] 12:51:00 Test Item Value Reference Range Interpretation Comments GLUCOSE BEDSIDE (test 79 MG/DL 70-110 N [facility] med by certified code = GLUBED) 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 [facility] HGB [id number] 12:44:00 Test Item Value Reference Range Interpretation Comments HEMOGLOBIN (test code = HGB) 7.9 g/dL 11.0-15.0 L HEMATOCRIT (test code = HCT) 23.2 % 33.0-45.0 L GLUCOSE [id number] 08:43:00 Test Item Value Reference Range Interpretation Comments GLUCOSE BEDSIDE (test 88 MG/DL 70-110 N Perfor med by certified code = GLUBED) 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 [facility] UR SODIUM [id number] 07:23:00 Test Item Value Reference Range Interpretation Comments UR SODIUM RANDOM 39 MEQ/L The Referen ce Range and (test code = YADI) Method Per formance specificationsh ave not been established for this fluid. The test result should be correlated into the clinical context forinte rpretation. UR CREATININE [id number] 07:23:00 Test Item Value Reference Range Interpretation Comments UR CREATININE 113.5 mg/dL The Reference Range and RANDOM (test code Method Per formance = CREATU) specificationsh ave not been establishe d for this fluid. The test resultshould be correlated into the clinical contex t forinterpretati on. POC ARTERIAL BLOOD [id number] 06:28:00 Test Item Value Reference Range Interpretation Comments POC ARTERIAL BLOOD GAS PH (test 7.415 7.35-7.45 N code = POCPHA) POC ARTERIAL BLOOD GAS PCO2 37.0 mmHg 35.0-45 N (test code = TKVGUL2I) POC TCO2 ARTERIAL (test code = 24.8 POCTCO2) POC ARTERIAL BLOOD GAS PO2 (test 75.3 mmHg 80-100.0 L code = NHFMO4S) POC HCO3 ARTERIAL (test code = 23.7 MMOL/L 22.0-26.0 N ZOPCCO3P) POC BASE EXCESS (test code = -0.9 MMOL/L -4.0-4.0 N POCBEA) POC O2 SATURATION (test code = 95.2 % 90-100 N POCO2S) FIO2 (test code = FIO2A) 30 % PaO2/FiO2 (test code = HKV4KQY2) 251.00 mm/Hg ABG DELIVERY (test code = CARLOS) Adult Vent ABG VENT MODE (test code = AC MODEA) ABG VENT RESP RATE (test code = 18 /MIN RRA) ABG TIDAL VOLUME (test code = 500 ml TVA) ABG PEEP (test code = PEEPA) 5 cmH2O ABG SITE (test code = SITEA) R Radial SINTIA'S TEST (test code = Positive ALLENS) COMPREHENSIVE METABOLIC [id number] 05:25:00 Test Item Value Reference Range Interpretation [...] 20-125 N TOTAL (test code = ALKP) [id number] 05:25:00 Test Item Value Reference Range Interpretation Comments PHOSPHOROUS (test code = PHOS) 2.5 MG/DL 2.5-4.9 [id number] 05:25:00 Test Item Value Reference Range Interpretation Comments MAGNESIUM (test code = MAG) 2.53 mg/dL 1.80-2.40 H CALCIUM [id number] 05:25:00 Test Item Value Reference Range Interpretation Comments CALCIUM IONIZED (test code = TOMER) 1.17 MMOL/L 1.12-1.32 N CBC W/AUTO [id number] 05:12:00 Test Item Value Reference Range Interpretation [...] REQUIRED (test code NO = MDIFF) GLUCOSE [id number] 04:48:00 Test Item Value Reference Range Interpretation Comments GLUCOSE BEDSIDE (test 90 MG/DL 70-110 N Perfor med by certified code = GLUBED) 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 [facility] GLUCOSE [id number] 00:57:00 Test Item Value Reference Range Interpretation Comments GLUCOSE BEDSIDE (test 100 MG/DL 70-110 N Perfor med by certified code = GLUBED) 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 [facility] GLUCOSE [id number] 00:57:00 Test Item Value Reference Range Interpretation Comments GLUCOSE BEDSIDE (test 98 MG/DL 70-110 N Perfor med by certified code = GLUBED) 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 [facility] GLUCOSE [id number] 00:57:00 Test Item Value Reference Range Interpretation Comments GLUCOSE BEDSIDE (test 115 MG/DL 70-110 H Perfor med by certified code = GLUBED) 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 [facility] GLUCOSE [id number] 00:55:00 Test Item Value Reference Range Interpretation Comments GLUCOSE BEDSIDE (test 99 MG/DL 70-110 N Perfor med by certified code = GLUBED) 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 [facility] - XR CHEST 1 [id number] 00:00:00 [facility] JJName: HARLEEN MANZANO : 1980 Sex: F FAX: Laura Trinh MD [phone] [place]: St: ADM FAX: J Carlos Franz MD [phone] Name: HARLEEN MANZANO [facility] [place] : 1980 Age/S: 40/F [address] [place] [address] Unit #: [id number] Loc: G.M328 [place] [address] Phys: JC arlos Gomez MD Acct: [id number] Dis Date: Status: ADM IN PHONE #: [phone] Exam Date: 10/12/202123 FAX #: [phone] Reason: INTUBATED/COVID EXAMS: CPT CODE: [id number] XR CHEST 1V 58221 PROCEDURE INFORMATION: Exam: XR Chest Exam date and time: 10/12/2021 5:50 AM Age: 40 years oldClinical indication: Device placement; Ett placement (vent status); Additional info: Intubated/covidTECHNIQUE: Imaging protocol: Radiologic exam of the chest. Views: 1 view. COMPARISON: CR XR CHEST 1V10/11/2021 5:43 AM FINDINGS: Limitations: Portable technique and [...] MD; J Carlos Gomez MD Technologist: RT Ronn(Gee) Trnscrd Date/Time/By: 10/12/2021 (0710) : By: KhaiKWL Orig Print D/T: S: 10/12/2021 (709) PAGE 1 Signed ReportGLUCOSE [id number] 16:52:00 Test Item Value Reference Range Interpretation Comments GLUCOSE BEDSIDE (test 109 MG/DL 70-110 N Perfor med by certified code = GLUBED) 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 [facility] GLUCOSE [id number] 15:04:00 Test Item Value Reference Range Interpretation Comments GLUCOSE BEDSIDE (test 109 MG/DL 70-110 N Perfor med by certified code = GLUBED) 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 [facility] GLUCOSE [id number] 14:10:00 Test Item Value Reference Range Interpretation Comments GLUCOSE BEDSIDE (test 115 MG/DL 70-110 H Perfor med by certified code = GLUBED) 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 [facility] GLUCOSE [id number] 13:25:00 Test Item Value Reference Range Interpretation Comments GLUCOSE BEDSIDE (test 113 MG/DL 70-110 H Perfor med by certified code = GLUBED) 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 [facility] GLUCOSE [id number] 12:21:00 Test Item Value Reference Range Interpretation Comments GLUCOSE BEDSIDE (test 132 MG/DL 70-110 H Perfor med by certified code = GLUBED) 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 [facility] GLUCOSE [id number] 10:59:00 Test Item Value Reference Range Interpretation Comments GLUCOSE BEDSIDE (test 143 MG/DL 70-110 H Perfor med by certified code = GLUBED) 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 [facility] GLUCOSE [id number] 10:08:00 Test Item Value Reference Range Interpretation Comments GLUCOSE BEDSIDE (test 133 MG/DL 70-110 H Perfor med by certified code = GLUBED) 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 [facility] GLUCOSE [id number] 10:03:00 Test Item Value Reference Range Interpretation Comments GLUCOSE BEDSIDE (test 128 MG/DL 70-110 H Perfor med by certified code = GLUBED) 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 [facility] GLUCOSE [id number] 09:27:00 Test Item Value Reference Range Interpretation Comments GLUCOSE BEDSIDE (test 207 MG/DL 70-110 H Perfor med by certified code = GLUBED) 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 [facility] GLUCOSE [id number] 09:27:00 Test Item Value Reference Range Interpretation Comments GLUCOSE BEDSIDE (test 202 MG/DL 70-110 H Perfor med by certified code = GLUBED) 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 [facility] GLUCOSE [id number] 09:27:00 Test Item Value Reference Range Interpretation Comments GLUCOSE BEDSIDE (test 237 MG/DL 70-110 H Perfor med by certified code = GLUBED) 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 [facility] GLUCOSE [id number] 09:27:00 Test Item Value Reference Range Interpretation Comments GLUCOSE BEDSIDE (test 254 MG/DL 70-110 H Perfor med by certified code = GLUBED) 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 [facility] GLUCOSE [id number] 09:27:00 Test Item Value Reference Range Interpretation Comments GLUCOSE BEDSIDE (test 260 MG/DL 70-110 H Perfor med by certified code = GLUBED) 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 [facility] GLUCOSE [id number] 09:27:00 Test Item Value Reference Range Interpretation Comments GLUCOSE BEDSIDE (test 291 MG/DL 70-110 H Perfor med by certified code = GLUBED) 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 [facility] GLUCOSE [id number] 09:27:00 Test Item Value Reference Range Interpretation Comments GLUCOSE BEDSIDE (test 290 MG/DL 70-110 H Perfor med by certified code = GLUBED) 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 [facility] GLUCOSE [id number] 09:27:00 Test Item Value Reference Range Interpretation Comments GLUCOSE BEDSIDE (test 273 MG/DL 70-110 H Perfor med by certified code = GLUBED) 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 [facility] GLUCOSE [id number] 08:12:00 Test Item Value Reference Range Interpretation Comments GLUCOSE BEDSIDE (test 142 MG/DL 70-110 H Perfor med by certified code = GLUBED) 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 [facility] BASIC METABOLIC [id number] 07:28:00 Test Item Value Reference Range Interpretation [...] code = 7.9 mg/dL 8.0-10.5 L CA) [id number] 07:28:00 Test Item Value Reference Range Interpretation Comments PHOSPHOROUS (test code = PHOS) 1.8 MG/DL 2.5-4.9 L [id number] 07:28:00 Test Item Value Reference Range Interpretation Comments LIPASE (test code = LIP) 45 U/L 13-57 N [id number] 07:28:00 Test Item Value Reference Range Interpretation Comments MAGNESIUM (test code = MAG) 2.73 mg/dL 1.80-2.40 H T4 [id number] 07:28:00 Test Item Value Reference Range Interpretation Comments T4 FREE (test code = T4F) 1.0 ng/dL 0.77-1.61 N THYROID STIMULATING [id number] 07:28:00 Test Item Value Reference Range Interpretation Comments THYROID STIMULATING 0.03 0.42-5.47 L Results in HORMONE (test code = TSH) mi lli-International Units/mL [id number] 05:36:00 Test Item Value Reference Range Interpretation Comments AMMONIA (test code = AMM) 20 umol/L 11-35 N PROTHROMBIN [id number] 05:28:00 Test Item Value Reference Range Interpretation Comments PROTHROMBIN TIME 11.6 SECONDS 9.3-12.9 N PATIENT (test code = PTP) INTERNATIONAL NORMAL 1.0 0.8-1.2 N TARGE T INR BY RATIO [...] (to prevent recurrent infar ct). CBC W/AUTO [id number] 05:28:00 Test Item Value Reference Range Interpretation [...] code NO = MDIFF) POC ARTERIAL BLOOD [id number] 03:37:00 Test Item Value Reference Range Interpretation Comments POC ARTERIAL BLOOD GAS PH (test 7.397 7.35-7.45 N code = POCPHA) POC ARTERIAL BLOOD GAS PCO2 37.6 mmHg 35.0-45 N (test code = IIEDHA3F) POC TCO2 ARTERIAL (test code = 24.3 POCTCO2) POC ARTERIAL BLOOD GAS PO2 (test 150.8 mmHg 80-100.0 H code = RQTNF5S) POC HCO3 ARTERIAL (test code = 23.1 MMOL/L 22.0-26.0 N WMASBC8K) POC BASE EXCESS (test code = -1.7 MMOL/L -4.0-4.0 N POCBEA) POC O2 SATURATION (test code = 99.3 % 90-100 N POCO2S) FIO2 (test code = FIO2A) 30 % PaO2/FiO2 (test code = [id number]) 502.66 mm/Hg ABG DELIVERY (test code = CARLOS) Adult Vent ABG VENT MODE (test code = AC MODEA) ABG VENT RESP RATE (test code = 18 /MIN RRA) ABG PEEP (test code = PEEPA) 5 cmH2O ABG SITE (test code = SITEA) R Radial SINTIA'S TEST (test code = Positive [facility]) - CT HEAD/BRAIN W/O [id number] 00:00:00 [facility] : 1980 Sex: F Name: HARLEEN MANZANO [facility] : 1980 Age/S: 40 / F [address] [place] [address] Unit #: [id number] Loc: [place] [address] Phys: Kermit Casas MD Acct: [id number] Dis Date: Status: ADM IN PHONE #: [phone] Exam Date: 10/11/2021 1608 FAX #: [phone] Reason: encephalopathy EXAMS: CPT CODE: [id number] CT HEAD/BRAIN W/O CONT 10478 PROCEDURE INFORMATION: Exam: CT Head Without Contrast [...] compared to a study dated 10/08/2021. at 8834 Reported and signed by: Hollie De La Rosa M.D. CC: Laura Trinh MD; Kermit Casas MD Technologist:CONI Muniz (N)(CT) CTDI: DLP: Trnscb Date/Time: 10/11/2021 (1425) KhaiJYA Orig Print D/T: S: 10/11/2021 (8952) PAGE 1 Signed Report- CT ABD PELVIS W/O [id number] 00:00:00 [facility] : 1980 Sex: F Name: HARLEEN MANZANO [facility] : 1980 Age/S: 40 / F [address] [place] [address] Unit #: [id number] Loc: [place] [address] Phys: Kermit Casas MD Acct: [id number] Dis Date: Status: ADM IN PHONE #: [phone] Exam Date: 10/11/2021 1604 FAX #: [phone] Reason: small bowel obstruction EXAMS: CPT CODE: [id number] CT ABD PELVIS W/O CONT 42140 PROCEDURE INFORMATION: Exam: CT Abdomen And Pelvis [...] stones. No ductal dilation. Pancreas: Normal. No ductaldilation. Spleen: Normal. No splenomegaly. Adrenal glands: Normal. [...] the abdomen or pelvis. PAGE 1 Signed Report(CONTINUED) Name: HARLEEN MANZANO [facility] Eliel Jj : 1980 Age/S: 40 / F [address] [place] [address] Unit #: [id number] Loc: [place] [address] Phys: Kermit Casas MD Acct: [id number] Dis Date: Status: ADM IN PHONE #: [phone] Exam Date: 10/11/2021 1604 FAX #: [phone] Reason: small bowelobstruction EXAMS: CPT CODE: [id number] CT ABD PELVIS W/O CONT 40716 <Continued> Electronica lly Signed by Faizan Boston on 10/11/2021 at 1632 Reported and signed by: Mulugeta Boston M.D. CC: Laura Trinh MD; Kermit Casas MD Technologist:CONI Muniz (N)(CT) CTDI: DLP: Trnscb Date/Time: 10/11/2021 (1631) [email or web address] Orig Print D/T: S: 10/11/2021 (1632) PAGE 2 Signed Report- XR CHEST 1 [id number] 00:00:00 [facility] : 1980 Sex: F FAX: Laura Trinh MD [phone] [place]: St: ADM FAX: J Carlos Franz MD [phone] Name: HARLEEN MANZANO [facility] : 1980 Age/S: 40/F [address] [place] [address] Unit #: [id number] Loc: [address] [place] [address] Phys: J Carlos Gomez MD Acct: [id number] Dis Date: Status: ADM IN PHONE #: [phone] Exam Date: 10/11/2021 1633 FAX #: [phone] Reason: INTUBATED/COVID EXAMS: CPT CODE: [id number] XR CHEST 1 V 43419 PROCEDURE INFORMATION: Exam: XR Chest Exam date [...] MD; J Carlos Gomez MD Technologist: Sara Jernigan RT(R) Trnscrd Date/Time/By: 10/11/2021 (626) : By: [email or web address] Orig Print D/T: S: 10/11/2021 (1639) PAGE 1 Signed Report- US RETROPERITONEAL [id number] 00:00:00 [facility] : 1980 Sex: F Name: HARLEEN MANZANO [facility] : 1980 Age/S: 40 / F [address] [place] [address] Unit #: [id number] Loc: [place] [address] Phys: Laura Trinh MD Acct: [id number] Dis Date: Status: ADM IN PHONE #: [phone] Exam Date: 10/11/2021 0753 FAX #: [phone] Reason: JAYLEEN EXAMS: CPT CODE: [id number] RETROPERITONEAL [facility] [address] PROCEDURE INFORMATION: Exam: US Retroperitoneal; Complete; Kidneys andBladder Exam date and time: 10/11/2021 7:19 AM Age: 40 years old Clinical indication: Other: Jayleen TECHNIQUE: Imaging protocol: Real-time ultrasound of the retroperitoneum with image documentation. Complete exam focused on the kidneys and bladder. COMPARISON: No relevant prior studies available. FINDINGS:Right kidney: The right kidney measures 12.9 cm. No stones. No hydronephrosis. Left kidney: Limited visualization left kidney. No stones. No hydronephrosis. Urinary bladder: Unremarkable. IMPRESSION: No acute sonographic finding at 0859 Reported and signed by: Nazario Li M.D. CC: Laura Trinh MD Technologist: Maria Del Rosario Dimas RDMS() Trnscb Date/Time: 10/11/2021 (0859) [email or web address] Orig Print D/T: S: 10/11/2021 (6932) Probe: PAGE 1 Signed ReportAMMONIA 2021-10-10 19:58:00 Test Item Value Reference Range Interpretation Comments AMMONIA (test code = AMM) 21 umol/L 11-35 N LACTIC [id number] 18:51:00 Test Item Value Reference Range Interpretation Comments LACTIC ACID (test code = LACT) 1.1 mmol/L 0.4-1.9 N UA RFLX MICR CULT IF [id number] 18:49:00 Test Item Value Reference Range Interpretation [...] SEEN Cath type: Temporary/indwellingIN date: 10/08/21IN time: 2144Elapse time: 43 Hrs 05 MinsIndication for culture: Temperature > 100.4 FSpecimen Description: INDWELLING CATH ([place])Cath Status: Under 72 hoursGLUCOSE [id number] 17:37:00 Test Item Value Reference Range Interpretation Comments GLUCOSE BEDSIDE (test 233 MG/DL 70-110 H Perfor med by certified code = GLUBED) 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 [facility] RENAL FUNCTION [id number] 16:09:00 Test Item Value Reference Range Interpretation [...] gap </= 12 mEq/L, then every morning [id number] 16:09:00 Test Item Value Reference Range Interpretation Comments MAGNESIUM (test code = MAG) 2.63 mg/dL 1.80-2.40 H COMMENTS: Every 6 hours until anion gap </= 12 mEq/L, then every morning GLUCOSE [id number] 14:46:00 Test Item Value Reference Range Interpretation Comments GLUCOSE BEDSIDE (test 265 MG/DL 70-110 H Perfor med by certified code = GLUBED) 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 [facility] GLUCOSE [id number] 14:46:00 Test Item Value Reference Range Interpretation Comments GLUCOSE BEDSIDE (test 258 MG/DL 70-110 H Perfor med by certified code = GLUBED) 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 [facility] GLUCOSE [id number] 10:14:00 Test Item Value Reference Range Interpretation Comments GLUCOSE BEDSIDE (test 234 MG/DL 70-110 H Perfor med by certified code = GLUBED) 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 [facility] GLUCOSE [id number] 10:14:00 Test Item Value Reference Range Interpretation Comments GLUCOSE BEDSIDE (test 244 MG/DL 70-110 H Perfor med by certified code = GLUBED) 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 [facility] GLUCOSE [id number] 09:01:00 Test Item Value Reference Range Interpretation Comments GLUCOSE BEDSIDE (test 269 MG/DL 70-110 H Perfor med by certified code = GLUBED) 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 [facility] CBC W/AUTO [id number] 05:36:00 Test Item Value Reference Range Interpretation [...] (test NO code = MDIFF) RENAL FUNCTION [id number] 05:07:00 Test Item Value Reference Range Interpretation [...] gap </= 12 mEq/L, then every morning [id number] 05:07:00 Test Item Value Reference Range Interpretation Comments MAGNESIUM (test code = MAG) 1.84 mg/dL 1.80-2.40 N COMMENTS: Every 6 hours until anion gap </= 12 mEq/L, then every morning GLUCOSE [id number] 05:01:00 Test Item Value Reference Range Interpretation Comments GLUCOSE BEDSIDE (test 263 MG/DL 70-110 H Perfor med by certified code = GLUBED) 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 [facility] GLUCOSE [id number] 05:01:00 Test Item Value Reference Range Interpretation Comments GLUCOSE BEDSIDE (test 264 MG/DL 70-110 H Perfor med by certified code = GLUBED) 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 [facility] GLUCOSE [id number] 05:01:00 Test Item Value Reference Range Interpretation Comments GLUCOSE BEDSIDE (test 265 MG/DL 70-110 H Perfor med by certified code = GLUBED) 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 [facility] GLUCOSE [id number] 05:01:00 Test Item Value Reference Range Interpretation Comments GLUCOSE BEDSIDE (test 272 MG/DL 70-110 H Perfor med by certified code = GLUBED) 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 [facility] GLUCOSE [id number] 05:01:00 Test Item Value Reference Range Interpretation Comments GLUCOSE BEDSIDE (test 275 MG/DL 70-110 H Perfor med by certified code = GLUBED) 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 [facility] GLUCOSE [id number] 05:01:00 Test Item Value Reference Range Interpretation Comments GLUCOSE BEDSIDE (test 270 MG/DL 70-110 H Perfor med by certified code = GLUBED) 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 [facility] GLUCOSE [id number] 05:01:00 Test Item Value Reference Range Interpretation Comments GLUCOSE BEDSIDE (test 323 MG/DL 70-110 H Perfor med by certified code = GLUBED) 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 [facility] GLUCOSE [id number] 05:01:00 Test Item Value Reference Range Interpretation Comments GLUCOSE BEDSIDE (test 330 MG/DL 70-110 H Perfor med by certified code = GLUBED) 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 [facility] POC ARTERIAL BLOOD [id number] 04:22:00 Test Item Value Reference Range Interpretation Comments POC ARTERIAL BLOOD GAS PH (test 7.353 7.35-7.45 N code = POCPHA) POC ARTERIAL BLOOD GAS PCO2 42.3 mmHg 35.0-45 N (test code = NKRAZC3O) POC TCO2 ARTERIAL (test code = 24.8 POCTCO2) POC ARTERIAL BLOOD GAS PO2 (test 188.3 mmHg 80-100.0 H code = NGBAX4Q) POC HCO3 ARTERIAL (test code = 23.5 MMOL/L 22.0-26.0 N XVBBLX1N) POC BASE EXCESS (test code = -2.0 MMOL/L -4.0-4.0 N POCBEA) POC O2 SATURATION (test code = 99.6 % 90-100 N POCO2S) FIO2 (test code = FIO2A) 35 % PaO2/FiO2 (test code = NBK1JHD3) 538.00 mm/Hg ABG DELIVERY (test code = CARLOS) Adult Vent ABG VENT MODE (test code = AC MODEA) ABG VENT RESP RATE (test code = 18 /MIN RRA) ABG TIDAL VOLUME (test code = 500 ml TVA) ABG PEEP (test code = PEEPA) 5 cmH2O ABG SITE (test code = SITEA) R Radial SINTIA'S TEST (test code = Negative [facility]) RENAL FUNCTION [id number] 00:37:00 Test Item Value Reference Range Interpretation [...] gap </= 12 mEq/L, then every morning [id number] 00:37:00 Test Item Value Reference Range Interpretation Comments MAGNESIUM (test code = MAG) 1.90 mg/dL 1.80-2.40 N COMMENTS: Every 6 hours until anion gap </= 12 mEq/L, then every morning- XR CHEST 1 [id number] 00:00:00 [facility] : 1980 Sex: F FAX: Greg Mallory MD [place]: St: ADM FAX: James Cruz MD [phone] Name: HARLEEN MANZANO [facility] : 1980 Age/S: 40/F [address] [place] [address] Unit #: [id number] Loc: [address] [place] [address] Phys: Greg Choe MD Acct: [id number] Dis Date: Status: ADM IN PHONE #: [phone] Exam Date: 10/10/2021 0857 FAX #: [phone] Reason: Intubated EXAMS: CPT CODE: [id number] XR CHEST 1 V 15950 PROCEDURE INFORMATION: Exam: XR Chest Exam date and time: 10/10/2021 8:42 AM Age: 40 years old Clinical indica tion: Other: Intubated TECHNIQUE: Imaging protocol: Radiologic exam of the chest. Views: 1 view. COMPARISON: CR XR CHEST 1V 10/08/2021 9:20 PM FINDINGS: Tubes, catheters and devices: Endotracheal tube,nasogastric tube and right IJ catheter remain in place Lungs: Lungs are slightly low volume. No definite consolidation allowing for technique. Pleural spaces: Unremarkable. No pleural effusion. No pneumothorax. Heart/Mediastinum: Heart size is within normal limits. Vasculature is unremarkable. Bones/joints: Unremarkable. IMPRESSION: Stable radiographic appearance of the chest. at 0916 Reported and signed by: Nazario Li M.D. CC: Greg Mallory MD; James Tearn MD Technologist: RT Prakash(Gee) Trnscrd Date/Time/By: 10/10/2021 (915) : By: [email or web address] Orig Print D/T: S: 10/10/2021 (915) PAGE 1 Signed ReportRENAL FUNCTION PANEL 2021-10-09 [...] gap </= 12 mEq/L, then every morning [id number] 20:16:00 Test Item Value Reference Range Interpretation Comments MAGNESIUM (test code = MAG) 1.94 mg/dL 1.80-2.40 COMMENTS: Every 6 hours until anion gap </= 12 mEq/L, then every morning GLUCOSE [id number] 17:41:00 Test Item Value Reference Range Interpretation Comments GLUCOSE BEDSIDE (test 334 MG/DL 70-110 H Perfor med by certified code = GLUBED) 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 [facility] GLUCOSE [id number] 16:34:00 Test Item Value Reference Range Interpretation Comments GLUCOSE BEDSIDE (test 383 MG/DL 70-110 H Perfor med by certified code = GLUBED) 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 [facility] GLUCOSE [id number] 14:49:00 Test Item Value Reference Range Interpretation Comments GLUCOSE BEDSIDE (test 383 MG/DL 70-110 H Perfor med by certified code = GLUBED) 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 [facility] RENAL FUNCTION [id number] 14:18:00 Test Item Value Reference Range Interpretation [...] gap </= 12 mEq/L, then every morning [id number] 14:18:00 Test Item Value Reference Range Interpretation Comments MAGNESIUM (test code = MAG) 1.54 mg/dL 1.80-2.40 L COMMENTS: Every 6 hours until anion gap </= 12 mEq/L, then every morning GLUCOSE [id number] 13:08:00 Test Item Value Reference Range Interpretation Comments GLUCOSE BEDSIDE (test 398 MG/DL 70-110 H Perfor med by certified code = GLUBED) 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 [facility] GLUCOSE [id number] 11:12:00 Test Item Value Reference Range Interpretation Comments GLUCOSE BEDSIDE (test 503 MG/DL 70-110 H Perfor med by certified code = GLUBED) 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 [facility] GLUCOSE [id number] 10:27:00 Test Item Value Reference Range Interpretation Comments GLUCOSE BEDSIDE (test 501 MG/DL 70-110 H Perfor med by certified code = GLUBED) 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 [facility] [id number] 08:29:00 Test Item Value Reference Range Interpretation Comments HGBA1C% (test code = HGBA1C%) > 14.0 %A1C 4.8-6.0 H RENAL FUNCTION [id number] 07:03:00 Test Item Value Reference Range Interpretation [...] l result GLU) called to TRU LÓPEZ/Gee [facility].LS at 065 8 10/09/21Nurse gee torres back [...] gap </= 12 mEq/L, then every morning [id number] 07:03:00 Test Item Value Reference Range Interpretation Comments MAGNESIUM (test code = MAG) 1.65 mg/dL 1.80-2.40 L COMMENTS: Every 6 hours until anion gap </= 12 mEq/L, then every morning GLUCOSE [id number] 06:26:00 Test Item Value Reference Range Interpretation Comments GLUCOSE BEDSIDE > 600 MG/DL 70-110 H Performed by certified (test code = GLUBED) operato r at [facility] GLUCOSE [id number] 06:18:00 Test Item Value Reference Range Interpretation Comments GLUCOSE BEDSIDE > 600 MG/DL 70-110 H Performed by certified (test code = GLUBED) operato r at [facility] GLUCOSE [id number] 06:18:00 Test Item Value Reference Range Interpretation Comments GLUCOSE BEDSIDE > 600 MG/DL 70-110 H Performed by certified (test code = GLUBED) operato r at [facility] GLUCOSE [id number] 06:18:00 Test Item Value Reference Range Interpretation Comments GLUCOSE BEDSIDE > 600 MG/DL 70-110 H Performed by certified (test code = GLUBED) operato r at [facility] GLUCOSE [id number] 06:18:00 Test Item Value Reference Range Interpretation Comments GLUCOSE BEDSIDE > 600 MG/DL 70-110 H Performed by certified (test code = GLUBED) operato r at [facility] GLUCOSE [id number] 06:18:00 Test Item Value Reference Range Interpretation Comments GLUCOSE BEDSIDE > 600 MG/DL 70-110 H Performed by certified (test code = GLUBED) operato r at [facility] POC ARTERIAL BLOOD [id number] 04:05:00 Test Item Value Reference Range Interpretation Comments POC ARTERIAL BLOOD GAS PH (test 7.223 7.35-7.45 LL code = POCPHA) POC ARTERIAL BLOOD GAS PCO2 29.3 mmHg 35.0-45 LL (test code = LCTUYK2I) POC TCO2 ARTERIAL (test code = 13.0 POCTCO2) POC ARTERIAL BLOOD GAS PO2 (test 217.6 mmHg 80-100.0 HH code = QQPAE2O) POC HCO3 ARTERIAL (test code = 12.1 MMOL/L 22.0-26.0 LL CBUHNQ9S) POC BASE EXCESS (test code = -15.6 MMOL/L -4.0-4.0 L POCBEA) POC O2 SATURATION (test code = 99.6 % 90-100 N POCO2S) FIO2 (test code = FIO2A) 40 % PaO2/FiO2 (test code = CZR3ACS8) 544.00 mm/Hg ABG DELIVERY (test code = CARLOS) Adult Vent ABG VENT MODE (test code = AC MODEA) ABG VENT RESP RATE (test code = 18 /MIN RRA) ABG TIDAL VOLUME (test code = 500 ml TVA) ABG PEEP (test code = PEEPA) 5 cmH2O ABG SITE (test code = SITEA) R Radial SINTIA'S TEST (test code = Positive ALLENS) COMPREHENSIVE METABOLIC [id number] 22:09:00 Test Item Value Reference Range Interpretation [...] CO2<10 GLUCOSE (test code 903 mg/dL 70-110 Critical result = GLU) called to Sheldon [...] H PHOSPHATASE TOTAL (test code = ALKP) [id number] 22:09:00 Test Item Value Reference Range Interpretation Comments PHOSPHOROUS (test code = PHOS) 7.1 MG/DL 2.5-4.9 H [id number] 22:09:00 Test Item Value Reference Range Interpretation Comments MAGNESIUM (test code = MAG) 2.02 mg/dL 1.80-2.40 N CBC W/AUTO [id number] 22:01:00 Test Item Value Reference Range Interpretation [...] LY#) MANUAL DIFF REQUIRED NO SLIDE R ADELAIDA, (test code = MDIFF) CONSISTE NT WITH [...] 3/uL 0.0-0.1 N code = NRBC#) LACTIC [id number] 21:47:00 Test Item Value Reference Range Interpretation Comments LACTIC ACID (test code = LACT) 1.3 mmol/L 0.4-1.9 N - US ABDOMEN [id number] 20:27:00 [facility] 1980 Sex: F Name: HARLEEN MAN[place] : 1980 Age/S: 40 / F [address] Unit #: [id number] Loc: [place] [address] Phys: Chuy Vega MD Acct: [id number] Dis Date: Status: DEP ER PHONE #: [phone] Exam Date: 10/08/20212022 FAX #: Reason: Abdominal pain, elevated lipase, AMS EXAMS: CPT: [id number] US ABDOMEN COMPLETE 65871 EXAMINATION: - US ABDOMEN COMPLETE INDICATION: Abdominal [...] Justice M.D. CC: Chuy Vega MD Technologist: Band Attacher Trnscb Date/Time: 10/08/2021 (2026) [email or web address] PAGE 1 Signed Report Name: HARLEEN MANZANOland : 1980 Age/S: 40 / F [address] Unit #: [id number] Loc: [place] [address] Phys: Chuy Vega MD Acct: [id number] Dis Date: Status: [facility] ER PHONE #: [phone] Exam Date: 10/08/20212022 FAX #: Reason: Abdominal pain, elevated lipase, AMS EXAMS: CPT: [id number] US ABDOMEN COMPLETE 34332 (Continued) Orig Print D/T: S: 10/08/2021 (2030) Probe: PAGE 2 Signed ReportBASIC METABOLIC [id number] 18:34:00 Test Item Value Reference Range Interpretation [...] CK) Last Dose Date: 10/08/21 Dose Time: [id number] 18:34:00 Test Item Value Reference Range Interpretation Comments ACETAMINOPHEN (test code = ACET) < 2.0 mcG/ML 10.0-30.0 L Last Dose Date: 10/08/21 Dose Time: 1408VENOUS BLOOD [id number] 17:58:00 Test Item Value Reference Range Interpretation [...] SITE (test code = SITEV) CBC W/O [id number] 17:53:00 Test Item Value Reference Range Interpretation [...] = 11.60 fL 7.0-10.5 H MPV) LACTIC [id number] 17:34:00 Test Item Value Reference Range Interpretation Comments LACTIC ACID (test code = LACT) 1.0 mmol/L 0.4-2.0 CBC W/AUTO [id number] 16:47:00 Test Item Value Reference Range Interpretation [...] AUTO DIFFERENTI AL. - CT HEAD/BRAIN W/O [id number] 16:32:00 [facility] 1980 Sex: F Name: HARLEEN MANZANO [facility] : 1980 Age/S: 40 / F [address] Unit #: [id number] Loc: [place] [address] Phys: Chuy Vega MD Acct: [id number] Dis Date: Status: REG ER PHONE #: [phone] Exam Date: 10/08/2021 1613 FAX #: Reason: found down, vomiting EXAMS: CPT: [id number] CT HE AD/BRAIN W/O CONT 12466 Location code: H5 CT Cervical Spine Indication: [...] Alignment is satisfactory . Vertebral body height ismaintained. No fracture or subluxation. Mild narrowing of [...] MANZ[place] : 1980 Age/S: 40 / F [address] Unit #: [id number] Loc: [place] [address] Phys: Chuy Vega MD Acct: [id number] Dis Date: Status: REG ER PHONE #: [phone] Exam Date: 10/08/2021 1613 FAX #: Reason: found down, vomiting EXAMS: CPT: [id number] CT HEAD/BRAIN W/O CONT 94467 (Continued) Impression: 1. No evidence of trauma. [...] PAGE 2 Signed Report (CONTINUED) Name: HARLEEN MANZANOland : 1980 Age/S: 40 / F [address] [facility] Unit #: [id number] Loc: [place] [address] Phys: Chuy Vega MD Acct: [id number] Dis Date: Status: REG ER PHONE #: [phone] Exam Date: 10/08/2021 1613 FAX #: Reason: found down, vomiting EXAMS: CPT: [id number] CT HEAD/BRAIN W/O CONT 87807 (Continued) at 1632 Reported and signed by: DanielR. Shanel M.D. CC: Chuy Vega MD Technologist:James Osullivan, RT(R); Kri CTDI: DLP: TrnscbDate/Time: 10/08/2021 (1631) t.SDR.DRB1 Orig Print D/T: S: 10/08/2021 (1018) PAGE 3 Signed Report- CT C-SPINE W/O [id number] 16:32:00 [facility] : 1980 Sex: F Name: HARLEEN MANZANO [facility] : 1980 Age/S: 40 / F [address] Unit #: [id number] Loc: [place] [address] Phys: Chuy Vega MD Acct: [id number] Dis Date: Status: REG ER PHONE #: [phone] Exam Date: 10/08/2021 1612 FAX #: Reason: found down, vomiting EXAMS: CPT: [id number] CT C-SPINE W/O CONT 15229 Location code: H5 CT Cervical Spine Indication: found down, vomiting. Comparison: none. Technique: Axial images were obtained with sagittal and coronal reconstruction. Dose: 1352.07mGy. This exam was performed according to our departmental dose-optimization program, which includesautomated exposure control, adjustment of the mA and/or [...] 1 Signed Report (CONTINUED) Name: HARLEEN MANZANO [place] : 1980 Age/S: 40 / F [address] Unit #: [id number] Loc: [place] [address] Phys: Chuy Vega MD Acct: [id number] Dis Date: Status: REG ER PHONE #: [phone] Exam Date: 10/08/20211611 FAX #: Reason: found down, vomiting EXAMS: CPT: [id number] CT C- SPINE W/O CONT 29397 (Continued) Impression: 1. No evidence of trauma. Location code: H5 CT Brain Without Contrast Indication: found down, vomiting Comparison: None Technical factors: Axial images were obtained from the base of the skull to the vertex. Sagittal and coronalreconstruction.Dose: 1352 mGy. This exam was performed according to our departmental dose-optimization program, which includes automated exposure control, adjustment of the mA and/or kV according to patient size and/or use of iterative reconstruction technique. Findings: Ventricles and sulci are of normal caliber for patient age. No hemorrhage, mass- effect, or abnormal extra-axial fluid collection.No evidence of acute infarct. Calvarium is unremarkable. No confluent otomastoid disease. Orbits arenormal in appearance. Paranasal sinuses are clear. Impression: 1. Normal non contrast CT scan of thebrain. PAGE 2 Signed Report (CONTINUED) Name: HARLEEN MANZANO [place] : 1980 Age/S: 40 / F [address] Unit #: [id number] Loc: [place] [address] Phys: Chuy Vega MD Acct: [id number] Dis Date: Status: REG ER PHONE #: [phone] Exam Date: 10/08/2021 161 FAX #: Reason: found down, vomiting EXAMS: CPT: [id number] CT C-SPINE W/O CONT 70436 (Continued) at 1632 Reported and signed by: Pro Ugarte M.D. CC: Chuy Vega MD Technologist:James Osullivan, RT(R); Damian CTDI: DLP: Trnscb Date/Time: 10/08/2021 (1632) t.SDR.DRB1 Orig Print D/T: S: 10/08/2021 (7203) PAGE 3 Signed ReportBASIC METABOLIC [id number] 16:28:00 Test Item Value Reference Range Interpretation [...] Physician Notified: .Date & Time Test Performed: .[id number] 16:28:00 Test Item Value Reference Range Interpretation Comments PHOSPHOROUS (test code = PHOS) 8.9 MG/DL 2.5-4.9 H Completed by Nursing: YESTroponin I Result: .Performed By: .If Critical Value, Physician Notified: .Date & Time Test Performed: .[id number] 16:28:00 Test Item Value Reference Range Interpretation Comments LIPASE (test code = LIP) 636 Unit/L 114-286 H Completed by Nursing: YESTroponin I Result: .Performed By: .If Critical Value, Physician Notified: .Date & Time Test Performed: .[id number] 16:28:00 Test Item Value Reference Range Interpretation Comments MAGNESIUM (test code = MAG) 2.7 MG/DL 1.8-2.4 H Completed by Nursing: YESTroponin I Result: .Performed By: .If Critical Value, Physician Notified: .Date & Time Test Performed: .NT PRO-BRAIN NATRIURETIC [id number] 16:28:00 Test Item Value Reference Range Interpretation [...] Physician Notified: .Date & Time Test Performed: .[id number] 16:28:00 Test Item Value Reference Range Interpretation Comments ALCOHOL (test code = ALC) < 3 MG/DL 0-10 N Completed by Nursing: YESTroponin I Result: .Performed By: .If Critical Value, Physician Notified: .Date & Time Test Performed: .- XR CHEST 1 [id number] 16:15:00[facility] : 1980 Sex: F Name: HARLEEN MANZANO [facility] : 1980 Age/S: 40 / F [id number] Unit #: [id number] Loc: [place] [address] Phys: Chuy Vega MD Acct: [id number] Dis Date: Status: REG ER PHONE #: [phone] Exam Date: 10/08/2021 7151 FAX #: Reason: Code Sepsis EXAMS: CPT: [id number] XR CHEST 1 V 23052 Fluoro Time: DAP (Gy m2): Air Kerma [...] inflation level. Vascular congestive changes possibly. Location: [facility] at 1615 Reported and signed by: Timi Davis M.D. CC: Chuy Vega MD PAGE 1 Signed Report Name: HARLEEN MANZANO [facility] : 1980 Age/S: 40 / F [address] Unit #: [id number] Loc: [place] [address] Phys: Chuy Vega MD Acct: [id number] Dis Date: Status: REG ER PHONE #: [phone] Exam Date: 10/08/2021 1608 FAX #: Reason: Code Sepsis EXAMS: CPT: [id number] XR CHEST 1 V 20742 Fluoro Time: DAP (Gy m2): Air Kerma (mGy): (Continued) Technologist: Anisa Peng, RT(R) Trnscb Date/Time: 10/08/2021 (161) [id number] Orig Print D/T: S: 10/08/2021 (1618) PAGE 2 Signed ReportUA RFLX MICR CULT IF [id number] 15:26:00 Test Item Value Reference Range Interpretation [...] for culture: Gross HematuriaDRUGS OF ABUSE SCREEN [id number] 15:26:00 Test Item Value Reference Range Interpretation [...] for culture: Gross HematuriaCOVID 19 Asymptomatic IH [id number] 15:01:00 Test Item Value Reference Range Interpretation Comments COVID 19 Asymptomatic IH AG (test POSITIVE Negative A code = COVNONPUIAG) HCG [id number] 15:00:00 Test Item Value Reference Range Interpretation Comments HCG SERUM (test < 1 mi-IU/ML 0-6 N 0 - 6 NOT P REGNANT > 6 code = HCG) SUGGESTIVE OF E YEHUDA RISES TWO FOLD EVERY 2 DAYS; S UGGEST RECONFIRMING AF TER 2 DAYS. 150,000-2 00,[address] TRIMESTER 10 ,000 - 50,000 2ND & 3R D TRIMESTER LACTIC [id number] 15:00:00 Test Item Value Reference Range Interpretation Comments LACTIC ACID (test code = LACT) 2.1 mmol/L 0.4-2.0 H [id number] 14:59:00 Test Item Value Reference Range Interpretation Comments SALICYLATE (test code 4.8 MG/DL See_Comment N [Auto mated message] = RAMON) The system [employer] generated this result transmitted ref erence range: 2.8-20.0 THER. The reference r west was not used to interpret this result as normal/abnor mal. PROTHROMBIN [id number] 14:47:00 Test Item Value Reference Range Interpretation [...] (to prevent recurrent infar ct). THROMBOPLASTIN TIME [id number] 14:47:00 Test Item Value Reference Range Interpretation Comments THROMBOPLASTIN TIME PARTIAL 26.3 SECONDS 26-35 N (test code = PTT) VENOUS BLOOD [id number] 14:19:00 Test Item Value Reference Range Interpretation [...] code = SITEV) - XR CHEST 1 [id number] 00:00:00 [facility] : 1980 Sex: F FAX: Mark Gorman MD [place]: St: ADM Name: HARLEEN MANZANO [facility] : 1980 Age/S: 40/F [address] [place] [address] Unit #: [id number] Loc: [place] [address] Phys: Mark Gorman MD Acct: [id number] Dis Date: Status: ADM IN PHONE #: [phone] Exam Date: 10/08/20212149 FAX #: [phone] Reason: intubated EXAMS: CPT CODE: [id number] XR CHEST 1 V 46412 PROCEDURE INFORMATION: Exam: XR Chest Exam date [...] cardiopulmonary process. at 2221 Reported and signed by:Mark De Leon D.O. CC: Mark Gorman MD Technologist: BRISA Brody) Trnscrd Date/Time/By: 10/08/2021 (2220) : By: [email or web address] Orig Print D/T: S: 10/08/2021 (2220) PAGE 1 Signed Report Notes Date/Time Note Provider Source 2022-08-10 20:06:00-00:00 [facility] EMERGENCY PROVIDER REPORT REPORT#:[id number] REPORT STATUS: Signed DATE:08/10/22 TIME:2005 PATIENT: HARLEEN MANZANO UNIT #: [id number] ROOM/BED: : 80 AGE: 41 SEX: F PCP PHYS: No Primar y or Family Physician SERVICE AUTHOR: Hallie Medina MD * ALL edits or amendments must be made on the el [employer]/computer document * HPI- Female Free Text HPI [...] August 18 General Initial Greet Date/Time 08/10/22 6085 Presentation Chief Complaint Urinary frequency )( Sudden [...] DME - GLUCOSE LANCETS (GLUCOSE LANCETS) EACH [place] DAILY #400 Prov: 10/22/21 DME - GLUCOSE METER (GLUCOSE METER) EACH MISC DIR DME - GLUCOSE METER (GLUCOSE METER) EACH MISC A SDIR #1 Prov: 10/22/21 DME - GLUCOSE STRIPS (GLUCOSE STRIPS) EACH MISC DAILY DME - GLUCOSE STRIPS (GLUCOSE STRIPS) EACH MIS C DAILY #400 Prov: 10/22/21 cefTRIAXone (ROCEPHIN) 2,000 [...] Pulse 90 08/11 14 Resp 17 08/11 001 Review of Vital Signs Reviewed Basic Physical [...] Glomerular Filtr Rate (>60 estGFR) >=60 max es timate Glucose (70 - 110 MG/DL) 183 H [...] % (Auto) (20.5 - 51.1 %) 37.9 Dubois % (Auto) (1.7 - 9.3 %) 5.9 Eos % (Auto) (0.0 - 6.0 %) 0.0 Baso % (Auto) (0.0 - 2.0 %) 0.6 Neut # (Auto) (1.8 - 7.6 K/mm3) 6.1 Lymph # (Auto) (0.6 - 3.2 K/mm3) 4.2 H Dubois # (Auto) (0.3 - 1.1 K/mm3) 0.7 [...] symptoms should prompt an immediate return to [facility] or the closest emergency department or a call to 911. at 234[address] [facility] #: [id number] END OF REPORT 2022-02-19 20:54:00-00:[id number] [facility] [address] [place] [address] PATIENT NAME: HARLEEN MANZANO ADMIT DATE: 2 ACCOUNT NO: [id number] ROOM NO: [facility]18 AGE: 41 REPORT TYPE: 360 - QUERY RESPONSE DOCUMENT SEX: F ADMITTING PHYSICIAN: Marshal Maya MD ATTENDING PHYSICIAN: Marshal Maya MD Provider Query QUERY TEXT: Relationship Procedure Condition 360MD Query related questions should be directed to::Jennifer montenegro [facility] Coding Query Helpline Please clarify the etiology [...] by: Jin Whitlock on 022 4:13 AM Electronically Signed by Prakash Larsen MD on 1 04/21/21 at 2054 PATIENT NAME: HARLEEN MANZANO [id number] 2022-02-13 19:08:00-00:[address] [facility] ([facility]) Infectious Dis. Progress Note REPORT#:[id number] REPORT STATUS: Signed DATE:02/13/22 TIME:1907 PATIENT: HARLEEN MANZANO UNIT #: [id number] ROOM/BED: [address] : 80 AGE: 41 SEX: F ATTEND: Tee Maya MD ADM AUTHOR: Pro Bustamante MD * ALL edits or amendments must be made on the el [employer]/computer document * Subjective Chief complaint: Foot infection [...] 02/13 1128 O2 Delivery Room air 02/13 112 Temp 36.9 02/13 1128 Pulse 90 02/13 [...] no distention Extremities: Left foot with dressing Neuro/FLIGHT FOLLOWER: alert, oriented X 3, normal speech Diagnosis, [...] from ID standpoint. at 1909 RPT #: [id number] END OF REPORT 2022-02-13 14:35:00-00:[address] [facility] ([facility]) Hospitalist Discharge Summary REPORT#:[id number] REPORT STATUS: Signed DATE:02/13/22 TIME:1435 PATIENT: HARLEEN MANZANO UNIT #: [id number] ROOM/BED: [place] [address] : 80 AGE: 41 SEX: F ATTEND: Tee Maya MD ADM AUTHOR: Prakash Larsen MD * ALL edits or amendments must be made on the el [employer]/computer document * General Information Date of admission: [...] her foot a pproximately 4 weeks ago HEAD NURSE. Patient has a severe appearing infection on [...] Larsen MD on at 1849 RPT #: [id number] END OF REPORT 2022-02-12 11:56:[facility]00 [facility]#:[id number] REPORT STATUS: Signed DATE:02/12/22 TIME:1156 PATIENT: HARLEEN MANZANO UNIT #: [id number] ROOM/BED: [place] [address] : 80 AGE: 41 SEX: F ATTEND: Tee Maya MD ADM AUTHOR: Prakash Larsen MD * ALL edits or amendments must be made on the [employer]/computer document * Subjective Chief complaint: left foot [...] all, LLE open wound/edema Musculoskeletal: normal inspection Neuro/FLIGHT FOLLOWER: alert, oriented X 3, normal speech, n [...] Larsen MD on at 0758 RPT #: [id number] END OF REPORT 2022-02-12 10:07:00-00:[address] [facility] ([facility]) Infectious Dis. Progress Note REPORT#:[id number] REPORT STATUS: Signed DATE:02/12/22 TIME:1007 PATIENT: HARLEEN MANZANO UNIT #: [id number] ROOM[address]BED: [address] : 80 AGE: 41 SEX: F [...] 02/12 0630 O2 Delivery Room air 02/12 0630 Temp 36.9 02/12 0630 Pulse 90 02/12 0630 Resp 16 02/12 0630 Vital Signs: Date Time Temp Pulse Resp B/P B/P Pulse O2 O2 Flow FiO2 Mean Ox Delivery Rate 02/12 0630 36.9 90 16 124/78 93.0 [...] no distention Extremities: Left foot with dressing Neuro/FLIGHT FOLLOWER: alert, oriented X 3, normal speech Diagnosis, [...] be discharged from ID standpoint. at 1010 [facility] #: [id number] END OF REPORT 2022-02-11 20:50:00-00:[address] [facility] ([facility]) Orthopaedic Progress Note REPORT#:[id number] REPORT STATUS: Signed DATE:02/11/22 TIME:2049 PATIENT: HARLEEN MANZANO UNIT #: [id number] ROOM/BED: [place] [address] : 80 AGE: 41 SEX: F ATTEND: Tee Maya MD ADM AUTHOR: Hector Garcia MD * ALL edits or amendments must be made on the [employer]/computer document * Subjective Chief complaint: had long discussion with jamaica peguero, did not have silvadene dressing changes until today, fluid not abscess but fluid from wound, n o surgical debridement indications, will follow Electronically Signed by Hector Garcia MD on at 205 [facility] #: [id number] END OF REPORT 2022-02-11 13:58:00-00:[address] [facility] ([facility]) Infectious Dis. Progress Note REPORT#:[id number] REPORT STATUS: Signed DATE:02/11/22 TIME:1358 PATIENT: HARLEEN MANZANO UNIT #: [id number] ROOM/BED: [place] [address] : 80 AGE: 41 SEX: F ATTEND: Tee Maya MD ADM AUTHOR: Pro Bustamante MD * ALL edits or amendments must be made on the [employer]/computer document * Subjective Chief complaint: Foot infection HPI: Last WBC was normal, pt is on vancomycin, ceftri axone and metronidazole. Review of Systems Constitutional: Denies: fever. Objective Physical Exam Head/Eyes: atraumatic, normocephalic Cardiovascular: regular rate rhythm Respiratory: aerating well, no distress Abdomen: non-tender, soft, no distention Extremities: Left foot with dressing Neuro/FLIGHT FOLLOWER: alert, oriented X 3, normal speech Diagnosis, [...] home IV abxs. at 2216 RPT #: [id number] END OF REPORT 2022-02-11 11:58:00-00:[address] [facility] ([facility]) Hospitalist Progress Note REPORT#:[id number] REPORT STATUS: Signed DATE:02/11/22 TIME:1158 PATIENT: HARLEEN MANZANO UNIT #: [id number] ROOM[address]BED: [address] : 80 AGE: 41 SEX: F ATTEND: Tee Maya MD ADM AUTHOR: Prakash Larsen MD * ALL edits or amendments must be made on the [employer]/computer document * Subjective Chief complaint: left foot [...] all, LLE open wound/edema Musculoskeletal: normal inspection Neuro/FLIGHT FOLLOWER: alert, oriented X 3, normal speech, n [...] Larsen MD on at 1159 RPT #: [id number] END OF REPORT 2022-02-11 08:31:00-00:[address] [facility] ([facility]) Pharmacy Prog.Note-Vancomycin REPORT#:[id number] REPORT STATUS: Signed DATE:02/11/22 TIME:830 PATIENT: HARLEEN MANZANO UNIT #: [id number] ROOM/BED: [place] [address] : 80 AGE: 41 SEX: F ATTEND: Cy Maya MD ADM AUTHOR: Jose Grace [facility] * ALL edits or amendments must be made on the el [employer]/computer document * Vancomycin Vancomycin Medication Therapy Goal: AUC 400-600 mcg*hr/mL Indication for treatment: LEFT FOOT OSTEOMYELITIS VS and I/O: Vital Signs Date Temp Pulse Resp B/P B/P Mean Pulse Ox FiO2 02/08-02/11 36.4-37.0 85-106 14-16 102-165/66-97 78.5-119.8 98-100 72 hours ending at 0700 02/11 0700 02/10 1900 02/10 0702/09 1900 02/08 1900 Intake 500 500 Total Output Total Balance 500 500 Intake, 500 500 Oral Number 1 Voids 72 Hour I O Total 02/11 0702/09 07 Intake Total 500 500 Output Total [...] to follow up! at 0832 RPT #: [id number] END OF REPORT 2022-02-10 10:29:00-00:[address] [facility] ([facility]) Infectious Dis. Progress Note REPORT#:[id number] REPORT STATUS: Signed DATE:02/10/22 TIME:1029 PATIENT: HARLEEN MANZANO UNIT #: [id number] ROOM/BED: [place] [address] : 80 AGE: 41 SEX: F ATTEND: Tee Maya MD ADM AUTHOR: Donna Vieyra MD * ALL edits or amendments must be made on the [employer]/computer document * Subjective HPI: 41-year-old morbidly obese [...] Ox 100 02/10 0714 B/P 154/91 02/10 714 B/P Mean 112.3 02/10 714 O2 Delivery Room air 02/10 714 Temp 37.0 02/10 07 Pulse 106 02/10 0714 Resp 14 02/10 714 Vital Signs: Date [...] flank pain Extremities: Left foot with dressing Neuro/FLIGHT FOLLOWER: alert, oriented X 3, normal speech Skin: [...] MD on 06/02 at 1647 RPT #: [id number] END OF REPORT 2022-02-09 14:04:00-00:[address] [facility] ([facility]) Hospitalist Progress Note REPORT#:[id number] REPORT STATUS: Signed DATE:02/09/22 TIME:1404 PATIENT: HARLEEN MANZANO UNIT #: [id number] ROOM/BED: [place] [address] : 80 AGE: 41 SEX: F ATTEND: Tee Maya MD ADM AUTHOR: Prakash Larsen MD * ALL edits or amendments must be made on the [employer]/computer document * Subjective Chief complaint: left foot wound Review of Systems Respiratory: Denies: productive cough (sputum), SOB. Cardiovascular: Denies: chest pain. GI: Denies: nausea, vomiting. Objective General VS/I O: Vital Signs: Date Time Temp Pulse Resp B/P B/P Pulse O2 O2 Flow FiO2 Mean Ox Delivery Rate 02/09 1120 [...] all, LLE open wound/edema Musculoskeletal: normal inspection Neuro/FLIGHT FOLLOWER: alert, oriented X 3, normal speech, n [...] Larsen MD on at 1405 RPT #: [id number] END OF REPORT 2022-02-09 10:27:00-00:[address] [facility] ([facility] Infectious Dis. Progress Note REPORT#:[id number] REPORT STATUS: Signed DATE:02/09/22 TIME:1027 PATIENT: HARLEEN MANZANO UNIT #: [id number] ROOM/BED: [place] [address] : 80 AGE: 41 SEX: F ATTEND: Tee Maya MD ADM AUTHOR: Donna Vieyra MD * ALL edits or amendments must be made on the el [employer]/computer document * Subjective HPI: 41-year-old morbidly obese [...] 02/09 0638 O2 Delivery Room air 02/09 06 Temp 37.0 02/09 0638 Pulse 96 02/09 0638 Resp 14 02/09 0638 Vital Signs: Date Time Temp Pulse Resp B/P B/P Pulse O2 O2 F low FiO2 Mean Ox Delivery Rate 02/09 0638 37.0 96 14 128/74 91.6 [...] flank pain Extremities: Left foot with dressing Neuro/FLIGHT FOLLOWER: alert, oriented X 3, normal speech Skin: [...] MD on 05/02 at 1553 RPT #: [id number] END OF REPORT 2022-02-08 11:36:00-00:[address] [facility] ([facility]) Infect Disease Consult Note REPORT#:[id number] REPORT STATUS: Signed DATE:02/08/22 TIME:1135 PATIENT: HARLEEN MANZANO UNIT #: [id number] ROOM/BED: [place] [address] : 80 AGE: 41 SEX: F ATTEND: Tee Maya MD ADM AUTHOR: Pro Bustamante MD * ALL edits or amendments must be made on the [employer]/computer document * History of Present Illness Reason [...] the antbiotic bags . She informed m kami that she did not take the antibiotics [...] wound with foul smell, wi th dressing Neuro/FLIGHT FOLLOWER: alert, oriented X 3, CNII-XII intact, normal [...] for this consult. at 1530 RPT #: [id number] END OF REPORT 2022-02-08 10:56:00-00:[address] [facility] ([facility]) Hospitalist Progress Note REPORT#:[id number] REPORT STATUS: Signed DATE:02/08/22 TIME:105 PATIENT: HARLEEN MANZANO UNIT #: [id number] ROOM/BED: [place] [address] : 80 AGE: 41 SEX: F ATTEND: Tee Maya MD ADM AUTHOR: Stephy Benitez MSN * ALL edits or amendments must be made on the [employer]/computer document * Stephy Benitez 02/08/22 1056: Subjective [...] rebound Extremities: moves all, LLE open wound/edema Neuro/FLIGHT FOLLOWER: alert, oriented X 3, normal speech, n [...] % (Auto) (20.5 - 51.1 %) 36.8 Dubois % (Auto) (1.7 - 9.3 %) 5.7 Eos % (Auto) (0.0 - 6.0 %) 0.0 Baso % (Auto) (0.0 - 2.0 %) 0.6 Neut # (Auto) (1.8 - 7.6 K/mm3) 6.6 Lymph # (Auto) (0.6 - 3.2 K/mm3) 4.3 H Dubois # (Auto) (0.3 - 1.1 K/mm3) 0.7 [...] - 7.0 pH UNITS) 6.0 Ur Specific Ashton (1.005 - 1.030 SG) 1.010 Urine Protein [...] 2140 Report Impression - Status: SIGNED Entered: 02/07/20222 IMPRESSION: 1. Open wound at 5th ray [...] MD on 1 at 1429 RPT #: [id number] END OF REPORT 2022-02-08 10:56:00-00:00 [id number] [address] PATIENT NAME: HARLEEN MANZANO ADMIT DATE: 2 ACCOUNT NO: [id number] ROOM NO: L.S218 AGE: 41 REPORT TYPE: CONSULTATION SEX: F ADMITTING PHYSICIAN: Marshal Maya MD ATTENDING PHYSICIAN: Marshla Maya MD CONSULTATION DATE: 02/08/2022 DREDGE OPERATOR: Hector Garcia MD. HISTORY OF PRESENT ILLNESS: [...] Dictated: 02/08/2022 10:56:26 Date Transcribed: 02/08/2022 18:49:16 /[facility] Receipt ID: [id number] Authenticated by Hector Garcia MD On 09:41:53 AM at 0941 PATIENT NAME: HARLEEN MANZANO 0412 2022-02-08 07:35:00-00:[address] [facility] ([facility]) Pharmacy Prog.Note-Vancomycin REPORT#:[id number] REPORT STATUS: Signed DATE:02/08/22 TIME:734 PATIENT: HARLEEN MANZANO UNIT #: [id number] ROOM/BED: [place] [address] : 80 AGE: 41 SEX: F ATTEND: Tee Maya MD ADM AUTHOR: Jose Grace [facility] * ALL edits or amendments must be made on the el [employer]/computer document * Vancomycin Vancomycin Medication Therapy Goal: AUC 400-600 mcg*hr/mL Indication for treatment: LEFT FOOT OSTEOMYELITIS VS and I/O: Vital Signs Date Temp Pulse Resp B/P B/P Mean Pulse Ox FiO2 02/07-02/08 36.7-36.9 90-103 14-19 139-160/73-8 9 95-112.4 98-100 72 hours ending at 0700 02/08 0700 02/07 1900 02/07 0702/06 1900 02/05 0700 1900 Intake Total Output Total Balance Patient 165.909 kg Weight Weight Stated/Rep orted Measuremen t Method 72 Hour I O Total 02/08 0700 02/07 0700 02/06 0700 Intake Total Output Total Balance Labs: Laboratory [...] Rationale: 41 y/o 165kg female presented to [facility] with left f oot osteomyelitis. Of note [...] to follow up! at 0736 RPT #: [id number] END OF REPORT 2022-02-08 01:07:00-00:[address] [facility] ([facility]) Hospitalist History Physical REPORT#:[id number] REPORT STATUS: Signed DATE:02/08/22 TIME:106 PATIENT: HARLEEN MANZANO UNIT #: [id number] ROOM/BED: [place] [address] : 80 AGE: 41 SEX: F ATTEND: Tee Maya MD ADM AUTHOR: Marilyn Sotelo APRNNP * ALL edits or amendments must be made on the [employer]/computer document * Marilyn Sotelo 02/08/22 0107: History [...] O2 Flow FiO2 Mean Ox Delivery Rate 02/08 0144 [...] no cyanosis, no edema Musculoskeletal: normal inspection Neuro/FLIGHT FOLLOWER: alert, oriented X 3, normal speech, n [...] % (Auto) (20.5 - 51.1 %) 36.8 Dubois % (Auto) (1.7 - 9.3 %) 5.7 Eos % (Auto) (0.0 - 6.0 %) 0.0 Baso % (Auto) (0.0 - 2.0 %) 0.6 Neut # (Auto) (1.8 - 7.6 K/mm3) 6.6 Lymph # (Auto) (0.6 - 3.2 K/mm3) 4.3 H Dubois # (Auto) (0.3 - 1.1 K/mm3) 0.7 [...] - 7.0 pH UNITS) 6.0 Ur Specific Ashton (1.005 - 1.030 SG) 1.010 Urine Protein [...] H Urine Culture Screen (Culture CHK Criteria) YE S,WBC>10 EPI<25 Radiology data: Recent Impressions: RADIOLOGY - XR FOOT 3+V LT 02/070 Report Impression - Status: SIGNED Entered: 02/07/2022 6742 IMPRESSION: 1. Open wound at 5th ray [...] possible surgery Full code Marshal Maya 02/08/22 7059: Attestations Physician Attestation Agree w/findings plan: Agree with the findings and plan as documented b y FIRER RETORT Nancy * my personal evaluation is foot wound, antibx, cultures Electronically Signed by Marilyn Sotelo 02/08/22 at 0252 Electronically Signed by Marshal Maya MD on 1 at 1429 [facility] #: [id number] END OF REPORT 2022-02-07 20:07:00-00:[address] [facility] ([facility]) EMERGENCY PROVIDER REPORT REPORT#:[id number] REPORT STATUS: Signed DATE:02/07/22 TIME:2006 PATIENT: HARLEEN MANZANO UNIT #: [id number] ROOM/BED: [place] [address] : 80 AGE: 41 SEX: F PCP PHYS: No Primar y or Family Physician SERVICE AUTHOR: Abdi Prabhakar [employer] * ALL edits or amendments must be made on the [employer]/computer document * Abdi Prabhakar 02/07/222006: HPI-Foot Prob/Inj General Initial Greet Date/Time 02/07/221902 [...] DME - GLUCOSE LANCETS (GLUCOSE LANCETS) EACH [place] DAILY #400 Prov: 10/22/21 DME - [...] - 7.0 pH UNITS) 6.0 Ur Specific [place]hton (1.005 - 1.030 SG) 1.010 Urine Protein [...] % (Auto) (20.5 - 51.1 %) 36.8 Dubois % (Auto) (1.7 - 9.3 %) 5.7 Eos % (Auto) (0.0 - 6.0 %) 0.0 Baso % (Auto) (0.0 - 2.0 %) 0.6 Neut # (Auto) (1.8 - 7.6 K/mm3) 6.6 Lymph # (Auto) (0.6 - 3.2 K/mm3) 4.3 H Dubois # (Auto) (0.3 - 1.1 K/mm3) 0.7 [...] ML X1ED STA 02/08 2008 DC 02/07 IV 02/07 Consultation Consultation Referral/Consult Name eHctor Garcia MD Harvest Manager Called Surgeon Requested Call Time 0033 Requested Call Date 02/08/22 Call Returned Call returned Call Returned Time 0040 Call Returned Date 02/08/22 Harvest Manager Will see patient, Agrees with eval, Agrees [...] with plan, ADMISSION ACCEPTED BY MARILYN SOTELO FIRER RETORT FOR DR. MAYA. Ranjeet Paulino 02/08/22 0141: Patient Discharge Departure Supervising Physician Note MidLv Saw Pt Alone I have reviewed the PA/FIRER RETORT's note and plan of car e. I was available for consultation as needed at al l times during the patient's visit in the emergency department. I agree with the clinical impression , plan and disposition. Electronically Signed by Abdi Prabhakar NP on at 0041 Electronically Signed by Ranjeet Coronel MD on at 0141 RPT #: [id number] END OF REPORT 2021-12-07 20:23:00-00:00 [facility] ([facility]) nephrology progress note report#:[id number] report status: signed date:12/07/21 time:2022 patient: harleen manzano unit #: [id number] room/bed: [place] [address] : 80 age: 41 sex: f attend: samanta castle md adm dt: 11/25/21 author: gabriela higginbotham md * all edits or amendments must be made on the [employer]/computer document * subjective hpi: events noted and [...] to auscultation abdomen: soft extremities: no edema neuro/gate attendant: alert psychiatry: normal mood results findings/data: laboratory [...] md on 12/15/21 at 0731 rpt #: [id number] end of report 2021-12-07 17:41:00-00:00 [facility] ([facility]) wound care progress note report#:[id number] report status: signed date:12/07/21 time:1740 patient: harleen manzano unit #: [id number] room/bed: [place] [address] : 80 age: 41 sex: f attend: [...] hernandez md on at 1745 rpt #: [id number] end of report 2021-12-07 15:45:00-00:00 [facility] ([facility]) hospitalist discharge summary report#:[id number] report status: signed date:12/07/21 time:1545 patient: harleen manzano unit #: [id number] room/bed: [place] [address] : 80 age: 41 sex: f attend: [...] that she was admitted and [facility] for [facility] weeks and was discharged home on october 22 a t which point she was found to have left foot wound for which podiatry recommended outpatient follow -up and oral antibiotics. patient was getting home health and woun d care at home and she went to see her stone hand on and as told that she has [...] patient has no insurance coverage for sk illed nursing, patient will need to go home with iv antibiotics, discussed with case teo richard seen and examined discharge home with home health discharge time 34-minute consultants: infectious disease, nephrology, caitlyn pearson pt. condition on discharge: improved, stable free [...] patient has no insurance coverage for sk illed nursing, patient will need to go home [...] the bandage whi ch was not open gate attendant alert oriented x3 moving all 4 extremities [...] jose garland md specialty: orthopaedic surgery phone: [phone] consult follow up timeframe: in 5 days electronically signed by prakash larsen md on at 1524 [facility] #: [id number] end of report 2021-12-07 12:49:00-00:00 [facility]) infectious dis. progress note report#:[id number] report status: signed date:12/07/21 time:1249 patient: harleen manzano unit #: [id number] room/bed: [place] [address] : 80 age: 41 sex: f attend: samanta castle md adm dt: 11/25/21 author: pro bustamante md * all edits or amendments must be made on the [employer]/computer document * subjective chief complaint: foot infection, left hpi: wbc remains normal, pt is on unasyn and linezoli d. review of systems constitutional: denies: fever. objective physical exam general appearance: alert, awake head/eyes: atraumatic, normocephalic cardiovascular: normal heart sounds respiratory: clear to auscultation, no distress abdomen: non-tender, soft, no distention neuro/gate attendant: alert, oriented x 3 skin: no rash [...] on clin damycin as outpt after seeing stone hand recs 1. ceftriaxone 2 gm iv q24h [...] md on 12/07/21 at 1251 rpt #: [id number] end of report 2021-12-07 12:41:00-00:00 [facility] ([facility]) hospitalist progress note report#:[id number] report status: signed date:12/07/21 time:1241 patient: harleen manzano unit #: [id number] room/bed: [place] [address] : 80 age: 41 sex: f attend: samanta castle md adm dt: 11/25/21 author: prakash larsen md * all edits or amendments must be made on the [employer]/computer document * subjective chief complaint: no complaints [...] 36.5 76 16 125/82 96.4 99 12/06 2005 36.4 88 16 154/95 114.6 100 room [...] refill, normal range of motion, no edema neuro/gate attendant: alert, oriented x 3 diagnosis, assessment plan [...] disposition patient has no insurance coverage for [facility] nursing, patient will need to go home with iv antibiotics, discussed with case teo hilary electronically signed by prakash larsen md on at 1241 rpt #: [id number] end of report 2021-12-06 12:42:00-00:00 [facility] ([facility]) hospitalist progress note report#:[id number] report status: signed date:12/06/21 time:1242 patient: harleen manzano unit #: [id number] room/bed: [place] [address] : 80 age: 41 sex: f attend: samanta castle md adm dt: 11/25/21 author: prakash larsen md * all edits or amendments must be made on the [employer]/computer document * subjective chief complaint: no complaints [...] refill, normal range of motion, no edema neuro/gate attendant: alert, oriented x 3 diagnosis, assessment plan [...] disposition patient has no insurance coverage for [facility] nursing, patient will need to go home with iv antibiotics, discussed with case teo richard electronically signed by prakash larsen md on at 1247 rpt #: [id number] end of report 2021-12-06 11:39:00-00:00 [facility] ([facility]) infectious dis. progress note report#:[id number] report status: signed date:12/06/21 time:1139 patient: harleen manzano unit #: [id number] room/bed: po10-1 : 80 age: 41 sex: f attend: samanta castle md adm dt: 11/25/21 author: pro bustamante md * all edits or amendments must be made on the [employer]/computer document * subjective chief complaint: foot infection, left hpi: wbc remains normal, pt remains on unasyn and holland ezolid. review of systems constitutional: denies: fever. objective physical exam general appearance: alert, awake head/eyes: atraumatic, normocephalic cardiovascular: normal heart sounds respiratory: clear to auscultation, no distress abdomen: non-tender, soft, no distention extremities: no cyanosis neuro/gate attendant: alert, oriented x 3 skin: no rash [...] on clin damycin as outpt after seeing stone hand recs 1. ceftriaxone 2 gm iv q24h [...] md on 12/06/21 at 1201 rpt #: [id number] end of report 2021-12-05 18:26:00-00:00 [facility] ([facility]) wound care progress note report#:[id number] report status: signed date:12/05/21 time:1825 patient: harleen manzano unit #: [id number] room/bed: [place] [address] : 80 age: 41 sex: f attend: [...] pulse ox 100 12/05 153 b/p 135/89 12/05 153 b/p mean 104.6 12/05 153 o2 delivery room air 12/06 1531 temp 97.5 12/05 153 pulse 80 12/05 1532 resp 17 12/05 [...] hernandez md on at 1827 rpt #: [id number] end of report 2021-12-05 10:58:00-00:00 [facility] ([facility]) hospitalist progress note report#:[id number] report status: signed date:12/05/21 time:1058 patient: harleen manzano unit #: [id number] room/bed: [place] [address] : 80 age: 41 sex: f attend: samanta castle md adm dt: 11/25/21 author: prakash larsen md * all edits or amendments must be made on the [employer] document * subjective chief complaint: no complaints [...] refill, normal range of motion, no edema neuro/gate attendant: alert, oriented x 3 free text obj [...] the bandage whi ch was not open gate attendant alert oriented x3 moving all 4 extremities [...] disposition patient has no insurance coverage for [facility] nursing, patient will need to go home with iv antibiotics, discussed with case teo richard electronically signed by prakash larsen md on at 1215 rpt #: [id number] end of report 2021-12-04 22:10:00-00:00 [facility] ([facility]) wound care progress note report#:[id number] report status: signed date:12/04/21 time:2209 patient: harleen manzano unit #: [id number] room/bed: [place] [address] : 80 age: 41 sex: f attend: samanta castle md adm dt: 11/25/21 author: jonathan hernandez md * all edits or amendments must be made on the [employer]/computer document * subjective chief complaint: wound care [...] hernandez md on at 2213 rpt #: [id number] end of report 2021-12-04 11:40:00-00:00 [facility] ([facility]) hospitalist progress note report#:[id number] report status: signed date:12/04/21 time:1140 patient: harleen manzano unit #: [id number] room/bed: [place] [address] : 80 age: 41 sex: f attend: samanta castle md adm dt: 11/25/21 author: yusuf castle md * all edits or amendments must be made on the [employer]/computer document * subjective chief complaint: fevers nausea [...] 0000 97.5 87 18 144/90 107.7 100 12/04 1955 98.1 08/25 1946 87 18 134/81 99.0 100 12/03 [...] prn po results findings/data: laboratory tests 12/04 1551 chemistry poc glucose (70 - 110 [...] the bandage whi ch was not open gate attendant alert oriented x3 moving all 4 extremities [...] castle md on at 1143 rpt #: [id number] end of report 2021-12-04 10:39:00-00:00 [facility] ([facility]) nephrology progress note report#:[id number] report status: signed date:12/04/21 time:1039 patient: harleen manzano unit #: [id number] room/bed: [place] [address] : 80 age: 41 sex: f attend: samanta castle md adm dt: 11/25/21 author: jaylen harrison md * all edits or amendments must be made on the [employer]/computer document * subjective hpi: no events, no cp, no sob, no n/v/abd pain objective general vs/i o: vital signs: date time temp pulse resp b/p b/p pulse o2 o2 f low fio2 mean ox delivery rate 12/04 0615 36.7 91 18 105/62 76.3 97 room air 12/04 0514 36.9 90 18 124/77 93.0 98 12/04 0000 36.4 87 18 144/90 107.7 100 12/03 1956 36.7 08/25 1946 87 18 134/81 99.0 100 12/03 [...] to auscultation abdomen: soft extremities: no edema neuro/gate attendant: alert psychiatry: normal mood diagnosis, assessment plan free text a p: assessment/plan: jayleen on ckd-iiia likely due to atn. indices rowan r, continue to monitor volume status now ok, off ivf lytes, acid-base acceptable ok to dc home from renal standpoint electronically signed by jaylen harrison md on 12/04/21 at 1039 rpt #: [id number] end of report 2021-12-04 10:34:00-00:00 [facility] ([facility] infectious dis. progress note report#:[id number] report status: signed date:12/04/21 time:1034 patient: harleen manzano unit #: [id number] room/bed: [place] [address] : 80 age: 41 sex: f attend: samanta castle md adm dt: 11/25/21 author: donna vieyra md * all edits or amendments must be made on the [employer]computer document * subjective chief complaint: foot infection, [...] 36.8 80 14 152/82 105.4 100 room ai r 24 hour i [...] extremities: no cyanosis musculoskeletal: no joint swelling neuro/gate attendant: alert, oriented x 3 skin: no rash [...] on clin damycin as outpt after seeing stone hand recs 1. unasyn (which covers e. coli [...] vieyra md on at 1520 rpt #: [id number] end of report 2021-12-04 09:54:00-00:00 [facility] ([facility]) orthopaedic progress note report#:[id number] report status: signed date:12/04/21 time:953 patient: harleen manzano unit #: [id number] room/bed: [address] : 80 age: 41 sex: f attend: samanta castle md adm dt: 11/25/21 author: jose garland * all edits or amendments must be made on the [employer]computer document * subjective hpi: 7 days s/p [...] garland on 12/04/21 at 0959 rpt #: [id number] end of report 2021-12-03 16:41:00-00:00 [facility] ([facility]) wound care progress note report#:[id number] report status: signed date:12/03/21 time:164 patient: harleen manzano unit #: [id number] room/bed: [place] [address] : 80 age: 41 sex: f attend: malcolm castle ed, md adm dt: 11/25/21 author: jonathan hernandez md * all edits or amendments must be made on the [employer] document * subjective chief complaint: wound care [...] hernandez md on at 1535 rpt #: [id number] end of report 2021-12-03 12:04:00-00:00 [facility] ([facility]) hospitalist progress note report#:[id number] report status: signed date:12/03/21 time:1204 patient: harleen manzano unit #: [id number] room/bed: [place] [address] : 80 age: 41 sex: f attend: samanta castle md adm dt: 11/25/21 author: yusuf castle md * all edits or amendments must be made on the [employer] document * subjective chief complaint: fevers nausea [...] the bandage whi ch was not open gate attendant alert oriented x3 moving all 4 extremities [...] castle md on at 1207 rpt #: [id number] end of report 2021-12-03 11:11:00-00:00 [facility] ([facility]) infectious dis. progress note report#:[id number] report status: signed date:12/03/21 time:1111 patient: harleen manzano unit #: [id number] room/bed: [place] [address] : 80 age: 41 sex: f attend: samanta castle md adm dt: 11/25/21 author: donna vieyra md * all edits or amendments must be made on the [employer]/computer document * subjective chief complaint: foot infection, [...] 12/03 0819 o2 delivery room air 12/03 08 temp 36.5 12/03 0819 pulse 80 12/03 [...] dorsum with fluctuance musculoskeletal: no joint swelling neuro/gate attendant: alert, oriented x 3 skin: no rash [...] started clindam ycin as outpt after seeing stone hand recs 1. unasyn (which covers e. coli [...] vieyra md on at 1528 rpt #: [id number] end of report 2021-12-02 22:23:00-00:00 [facility] ([facility]) wound care progress note report#:[id number] report status: signed date:12/02/21 time:2222 patient: harleen manzano unit #: [id number] room/bed: [place] [address] : 80 age: 41 sex: f attend: samanta castle md adm dt: 11/25/21 author: jonathan hernandez md * all edits or amendments must be made on the [employer] document * subjective chief complaint: wound care [...] hernandez md on at 2227 rpt #: [id number] end of report 2021-12-02 12:01:00-00:00 [facility] ([facility]) infectious dis. progress note report#:[id number] report status: signed date:12/02/21 time:1201 patient: harleen manzano unit #: [id number] room/bed: [place] [address] : 80 age: 41 sex: f attend: samanta castle md adm dt: 11/25/21 author: pro bustamante md * all edits or amendments must be made on the [employer] document * subjective chief complaint: foot infection, left hpi: leukocytosis resolved. last blood cx neg to date . wound cx showed vre. objective physical exam head/eyes: atraumatic, normocephalic cardiovascular: normal heart sounds respiratory: clear to auscultation, no distress abdomen: non-tender, soft, no distention extremities: no cyanosis, le ft foot wound plantar, 5th toe, boggy area on dorsum with fluctuance neuro/gate attendant: alert, oriented x 3 skin: no rash [...] started clindam ycin as outpt after seeing stone hand recs 1. unasyn (which covers e. coli and anaerobes) 2. start daptomycin for vre 3. duration: around 6 weeks. end date: 01/05/22. 4. picc line ordered 5. watch cbc diff and kidney function 6. wound care electronically signed by pro bustamante md on 12/02/21 at 1431 rpt #: [id number] end of report 2021-12-02 10:23:00-00:00 [facility] ([facility]) hospitalist progress note report#:[id number] report status: signed date:12/02/21 time:1023 patient: harleen manzano unit #: [id number] room/bed: [address] : 80 age: 41 sex: f [...] the bandage whi ch was not open gate attendant alert oriented x3 moving all 4 extremities [...] by yusuf castle md on at 1027 [facility] #: [id number] end of report 2021-12-02 09:48:00-00:00 [facility] ([facility] nephrology progress note report#:[id number] report status: signed date:12/02/21 time:947 patient: harleen manzano unit #: [id number] room/bed: [place] [address] : 80 age: 41 sex: f attend: samanta castle md adm dt: 11/25/21 author: jaylen harrison md * all edits or amendments must be made on the [employer] document * subjective hpi: no events, no [...] to auscultation abdomen: soft extremities: no edema neuro/gate attendant: alert psychiatry: normal mood diagnosis, assessment plan free text a p: assessment/plan: jayleen on ckd-iiia likely due to atn. indices rowan r, continue to monitor volume status now ok, off ivf lytes, acid-base acceptable ok to dc home from renal standpoint electronically signed by jaylen harrison md on 12/02/21 at 0949 [facility] #: [id number] end of report 2021-12-01 18:58:00-00:00 [facility] ([facility]) wound care progress note report#:[id number] report status: signed date:12/01/21 time:1857 patient: harleen manzano unit #: [id number] room/bed: [place] [address] : 80 age: 41 sex: f attend: samanta castle md adm dt: 11/25/21 author: jonathan hernandez md * all edits or amendments must be made on the [employer] document * subjective chief complaint: wound care [...] miguel band as secondary change dressing on naomy, tuesday, s unday 2. obesity advised weight loss to help with pressure reduc tion. 3. type i diabetes mellitus with hyperosmolarit y, uncontrolled arterial dopplers negative for any pad 4. jayleen (acute kidney injury) consultants: infectious disease, nephrology, ort hopedics electronically signed by jonathan hernandez md on at 1903 rpt #: [id number] end of report 2021-12-01 12:26:00-00:00 [facility] ([facility]) hospitalist progress note report#:[id number] report status: signed date:12/01/21 time:1226 patient: harleen manzano unit #: [id number] room/bed: [place] [address] : 80 age: 41 sex: f attend: samanta castle md adm dt: 11/25/21 author: yusuf castle md * all edits or amendments must be made on the [employer] document * subjective chief complaint: fevers nausea [...] report impression - status: signed entered: 11/30/2021 4349 impression: 1. left picc, as above. 2. [...] the bandage whi ch was not open gate attendant alert oriented x3 moving all 4 extremities [...] castle md on at 1231 rpt #: [id number] end of report 2021-12-01 12:09:00-00:00 [facility] ([facility]) infectious dis. progress note report#:[id number] report status: signed date:12/01/21 time:1209 patient: harleen manzano unit #: [id number] room/bed: po10-1 : 80 age: 41 sex: f attend: malcolm castle ed, md adm dt: 11/25/21 author: pro bustamante md * all edits or amendments must be made on the [employer] document * subjective chief complaint: foot infection, [...] 16 94/61 72.3 97 room air 11/30 2011 37.2 94 16 142/83 103.0 98 room [...] toe, boggy area on dorsum with fluctuance neuro/gate attendant: alert, oriented x 3 diagnosis, assessment plan free text a p: laboratory tests 12/01/2115: [embedded image not available] 11/30/2155: [embedded image not available] current abx clindamycin 6 ceftriaxone 6 zosyn dc impression 1. 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 coli bacteremia (s=ceftriaxone, unasyn). gas present in tissue s/p partial amputation by ortho 8/19/22 s/p left 5th toe ray amputation and [...] started clindam ycin as outpt after seeing stone hand recs 1. switch ceftriaxone and clindamycin to unasyn (which covers e. coli and enterococcus) 2. duration: 6 weeks. end date: 01/05/22. 3. picc line ordered 4. watch cbc diff and kidney function 5. follow blood and wound cxs 6. wound care electronically signed by pro bustamante md on 12/01/21 at 1410 rpt #: [id number] end of report 2021-12-01 11:55:00-00:00 [facility] ([facility]) nephrology progress note report#:[id number] report status: signed date:12/01/21 time:1155 patient: harleen manzano unit #: [id number] room/bed: [place] [address] : 80 age: 41 sex: f attend: samanta castle md adm dt: 11/25/21 author: jaylen harrison md * all edits or amendments must be made on the [employer] document * subjective hpi: overall better, no [...] to auscultation abdomen: soft extremities: no edema neuro/gate attendant: alert psychiatry: normal mood diagnosis, assessment plan free text a p: assessment/plan: jayleen on ckd-iiia likely due to atn. indices rowan r, continue to monitor volume status now ok, dcd ivf lytes, acid-base acceptable electronically signed by jaylen harrison md on 12/01/21 at 1156 rpt #: [id number] end of report 2021-12-01 00:44:00-00:00 [id number] [address] patient name: harleen manzano admit date: account no: [id number] room no: [facility] age: 41 report type: operative report sex: f admitting physician: yusuf castle md attending physician: yusuf castle md operation date: 11/27/2021 operating surgeon: jose garland md multimedia production assistant: preoperative diagnoses: 1. left foot nonhealing [...] of uncontrolled diabetes, admitted to the [facility] with nonhealing ulcers of the foot [...] the abscess on the patient name: harleen maznano 3430 plantar aspect with excision of the [...] procedure. dictated by: jose garland md wt: op:[email or web address]//nts dd: 12/01/2021 00:44:55 dt: 12/01/2021 01:35:59 conf#: [id number]/did#: [id number] authenticated and edited by jose keene i, md on 12/06/21 11:32:02 pm electronically signed by jose garland md on 12/06/21 at 1133 patient name: harleen manzano 3430 2021-11-30 16:20:00-00:00 [facility] ([facility] wound care progress note report#:[id number] report status: signed date:11/30/21 time:1620 patient: harleen manzano unit #: [id number] room/bed: [place] [address] : 80 age: 41 sex: f attend: samanta castle md adm dt: 11/25/21 author: jonathan hernandez md * all edits or amendments must be made on the [employer]/computer document * subjective chief complaint: wound care [...] hernandez md on at 1621 rpt #: [id number] end of report 2021-11-30 11:40:00-00:00 [facility] ([facility]) hospitalist progress note report#:[id number] report status: signed date:11/30/21 time:1140 patient: harleen manzano unit #: [id number] room/bed: [place] [address] : 80 age: 41 sex: f attend: samanta castle md adm dt: 11/25/21 author: yusuf castle md * all edits or amendments must be made on the [employer] document * subjective chief complaint: fevers nausea vomiting comments: patient lying on the bed feels better denies any complaint. objective general vs/i o: vital signs: date time temp pulse resp b/p b/p pulse o2 o2 flow fio2 mean ox delivery rate 11/30 0716 [...] report impression - status: signed entered: 11/29/2021 5616 impression: 1. no evidence of hemodynamically significant [...] the bandage whi ch was not open gate attendant alert oriented x3 moving all 4 extremities [...] castle md on at 1142 rpt #: [id number] end of report 2021-11-30 11:38:00-00:00 [facility] ([facility]) infectious dis. progress note report#:[id number] report status: signed date:11/30/21 time:1138 patient: harleen manzano unit #: [id number] room/bed: [place] [address] : 80 age: 41 sex: f attend: [...] toe, boggy area on dorsum with fluctuance neuro/gate attendant: alert, oriented x 3 skin: no rash [...] started clindam ycin as outpt after seeing stone hand recs continue ceftriaxone and clindamycin pt will need 6 weeks of ceftriaxone with probabl e po metronidazole picc line ordered watch cbc diff and kidney function follow blood and wound cxs wound care electronically signed by pro bustamante md on 11/30/21 at 1329 rpt #: [id number] end of report 2021-11-30 10:25:00-00:00 [facility] ([facility]) nephrology progress note report#:[id number] report status: signed date:11/30/21 time:1025 patient: harleen manzano unit #: [id number] room/bed: [address] : 80 age: 41 sex: f [...] to auscultation abdomen: soft extremities: no edema neuro/gate attendant: alert psychiatry: normal mood diagnosis, assessment plan free text a p: assessment/plan: jayleen on ckd-iiia likely due to atn. indices stabi lizing, continue to monitor volume status now ok, dc ivf lytes, acid-base acceptable electronically signed by jaylen harrison md on 11/30/21 at 1027 rpt #: [id number] end of report 2021-11-29 14:56:00-00:00 [facility] ([facility] wound care progress note report#:[id number] report status: signed date:11/29/21 time:6 patient: harleen manzano unit #: [id number] room/bed: [place] [address] : 80 age: 41 sex: f attend: malclom castle ed, md adm dt: 11/25/21 author: jonathan hernandez md * all edits or amendments must be made on the [employer] document * subjective chief complaint: wound care [...] hernandez md on at 1458 rpt #: [id number] end of report 2021-11-29 11:41:00-00:00 [facility] ([facility]) hospitalist progress note report#:[id number] report status: signed date:11/29/21 time:1141 patient: harleen manzano unit #: [id number] room/bed: [address] : 80 age: 41 sex: f attend: samanta castle md adm dt: 11/25/21 author: yusuf castle md * all edits or amendments must be made on the [employer] document * subjective chief complaint: fevers nausea vomiting comments: patient lying on the bed feels better. denies an y complaints. objective general vs/i o: vital signs: date time temp pulse resp b/p b/p pulse o2 o2 flow fio2 mean ox delivery rate 11/29 1112 97.3 79 14 105/68 80.4 98 room air 11/29 0827 97.5 80 14 114/75 88.1 99 room air 11/28 2324 97.9 78 16 115/77 89.5 97 room air 11/28 2027 98.6 84 16 135/72 93.0 98 room [...] report impression - status: signed entered: 2021 0006 impression: 1. normal exam. impression by: esau [...] the bandage whi ch was not open gate attendant alert oriented x3 moving all 4 extremities [...] castle md on at 1147 rpt #: [id number] end of report 2021 16:03:00-00:00 [facility] ([facility]) nephrology consultation note report#:[id number] report status: signed date:11/28/21 time:1603 patient: harleen manzano unit #: [id number] room/bed: [place] [address] : 80 age: 41 sex: f attend: samanta castle md adm dt: 11/25/21 author: gabriela higginbotham md * all edits or amendments must be made on the [employer] document * history of present illness requesting clinician: dr. castle reason for consult: elevated serum creatinine. fluid, electrolyte, and acid-base management. chief complaint: n/v fever pcp: pcp: no primary or family physician hpi: patient is a 41 years old female who was admitted to [facility] for sepsis and left foot infecti [...] to auscultation abdomen: soft extremities: no edema neuro/gate attendant: alert psychiatry: normal mood results findings/data: laboratory [...] gabriela higginbotham md on 12/15/21 at 0731 [facility] #: [id number] end of report 2021 10:59:00-00:00 [facility] ([facility]) hospitalist progress note report#:[id number] report status: signed date:11/28/21 time:105 patient: harleen manzano unit #: [id number] room/bed: [place] [address] : 80 age: 41 sex: f attend: samanta castle md adm dt: 11/25/21 author: yusuf castle md * all edits or amendments must be made on the [employer]/computer document * see addendum subjective chief complaint: [...] the bandage whi ch was not open gate attendant alert oriented x3 moving all 4 extremities [...] castle md on at 1106 rpt #: [id number] end of report 2021 10:32:00-00:00 [facility] ([facility]) infectious dis. progress note report#:[id number] report status: signed date:11/28/21 time:1032 patient: harleen manzano unit #: [id number] room/bed: [place] [address] : 80 age: 41 sex: f attend: samanta castle md adm dt: 11/25/21 author: pro bustamante md * all edits or amendments must be made on the [employer]/computer document * subjective chief complaint: foot infection, left hpi: leukocytosis has decreased. e. coli found in blo od cx. objective physical exam head/eyes: atraumatic, normocephalic cardiovascular: normal heart sounds respiratory: clear to auscultation, no distress abdomen: non-tender, soft, no distention extremities: no cyanosis, le ft foot wound plantar, 5th toe, boggy area on dorsum with fluctuance neuro/gate attendant: alert, oriented x 3 skin: no rash [...] started clindam ycin as outpt after seeing stone hand recs continue ceftriaxone and clindamycin for now pt will need 6 weeks of iv antibiotics picc line once blood cxs are neg for at least 24 h case discussed with ortho watch cbc diff and kidney function follow blood and wound cxs wound care electronically signed by pro bustamante md on 11/28/21 at 1110 rpt #: [id number] end of report 2021-11-27 23:22:00-00:00 [facility] ([facility]) wound care consultation note report#:[id number] report status: signed date:11/27/21 time:2321 patient: harleen manzano unit #: [id number] room/bed: [place] [address] : 80 age: 41 sex: f attend: [...] nausea and vomiting and left foot infection. shivam muñoz stated that she was admitted and [facility] for 2 weeks and jj s discharged home on october 22 at [...] 11/25 2100 ac 11/10 0 (humalog) subq 12/25 2058 182 allergies: coded [...] distress abdomen: soft, non-tender extremities: no edema neuro/gate attendant: alert, disoriented skin: dry wound assessment wound [...] by jonathan hernandez md on at 1456 [facility] #: [id number] end of report 2021-11-27 14:52:00-00:00 [facility] ([facility] hospitalist progress note report#:[id number] report status: signed date:11/27/21 time:1452 patient: harleen manzano unit #: [id number] room/bed: [place] [address] : 80 age: 40 sex: f attend: malcolm castle ed, md adm dt: 11/25/21 author: yusuf castle md * all edits or amendments must be made on the [employer] document * subjective chief complaint: fevers nausea [...] l serum , qual (negative screen) serum negative 11/26 1643 chemistry poc glucose (70 - [...] the bandage whi ch was not open gate attendant alert oriented x3 moving all 4 extremities [...] by yusuf castle md on at 1455 [facility] #: [id number] end of report 2021-11-27 12:29:00-00:00 [facility] ([facility]) infectious dis. progress note report#:[id number] report status: signed date:11/27/21 time:9 patient: harleen manzano unit #: [id number] room/bed: [place] [address] : 80 age: 40 sex: f attend: [...] toe, boggy area on dorsum with fluctuance neuro/gate attendant: alert, oriented x 3 diagnosis, assessment plan [...] started clindam ycin last week afetr seeing stone hand recs stop vancomycin continue ceftriaxone cont clindamycin for now pt will need 6 weeks of iv antibiotics picc line once blood cxs are neg for at least 24 h case discussed with ortho watch cbc diff and kidney function follow blood and wound cxs wound care electronically signed by pro bustamante md on 11/27/21 at 1405 rpt #: [id number] end of report 2021-11-27 10:19:00-00:00 [facility] ([facility]) pharmacy prog.note-vancomycin report#:[id number] report status: signed date:11/27/21 time:1019 patient: harleen manzano unit #: [id number] room/bed: [place] [address] : 80 age: 40 sex: f attend: samanta castle md adm dt: 11/25/21 author: abigail [facility] * all edits or amendments must be made on the [employer]/computer document * vancomycin vancomycin medication therapy goal: [...] 0416 nasal: mrsa screen - comp 11/25 1620 blood: blood culture - res 11/25 1620 blood: blood culture - res 11/25 1615 blood: blood culture - res gram negative max 11/25 1615 blood: blood culture - res treatment plan: change regimen regimen: trough 27.5 hold vanc dose today restart tomorrow at vanc 1.5g q24hr draw trough on 12/01 @ 0800 monitor renal function electronically signed by abigail [facility] on 2 at 1021 [facility] #: [id number] end of report 2021-11-27 08:05:00-00:00 [facility] ([facility]) orthopaedic progress note report#:[id number] report status: signed date:11/27/21 time:0805 patient: harleen manzano unit #: [id number] room/bed: [place] [address] : 80 age: 40 sex: f attend: samanta castle md adm dt: 11/25/21 author: jose garland * all edits or amendments must be made on the [employer]/computer document * subjective hpi: follow up of mri exam. objective vs: last documented: result date time pulse ox 100 11/27 0713 b/p 122/60 11/27 07 o2 delivery room air 11/27 07 pulse 85 11/27 07 resp 18 11/27 07 b/p mean 72.6 [...] mtp joint. mild swelling of 4th toe gate attendant alert oriented x3 moving all 4 extremities [...] garland on 11/27/21 at 0809 rpt #: [id number] end of report 2021-11-26 12:41:00-00:00 [facility] ([facility]) infect disease consult note report#:[id number] report status: signed date:11/26/21 time:1241 patient: harleen manzano unit #: [id number] room/bed: [place] [address] : 80 age: 40 sex: f attend: samanta castle md adm dt: 11/25/21 author: donna vieyra md * all edits or amendments must be made on the [employer] document * history of present illness reason for consult: diabetic foot infection chief complaint: foot infection, left hpi: came with worsening left foot wound c/o n/v and fever had a recent complex hospitalization in [facility] 10/09-10/20/21 dka/ atn/ covid 19/ diabetic [...] 2100 ac 11/09 8 (humalog) subq 12/25 2058 1146 insulin glargine 20 unit q12h 11/25 [...] mean pulse ox fio2 11/25-11/26 36.6-39.2 82-115 - 112-163/65-10 80.8-121.3 97-100 0 last documented: result date time pulse ox 100 08/18 1106 b/p 121/74 08/18 1106 b/p mean 89.9 11/26 1106 o2 [...] dorsum with fluctuance musculoskeletal: no joint swelling neuro/gate attendant: alert, oriented x 3 skin: no rash [...] started clindam ycin last week afetr seeing stone hand recs cont vancomcyin per pharm dosing cautiously- [...] vieyra md on at 1455 rpt #: [id number] end of report 2021-11-26 12:09:00-00:00 [facility] ([facility]) hospitalist progress note report#:[id number] report status: signed date:11/26/21 time:1209 patient: harleen manzano unit #: [id number] room/bed: [place] [address] : 80 age: 40 sex: f attend: samanta castle md adm dt: 11/25/21 author: yusuf castle md * all edits or amendments must be made on the [employer]/computer document * subjective chief complaint: fevers nausea [...] 88 16 147/84 105.3 99 room air 11/252 98.6 94 16 126/80 95.2 99 room [...] radiology - xr chest 1 v 11/25 1920 report impression - status: signed entered: 11/25/20218 [...] the bandage whi ch was not open gate attendant alert oriented x3 moving all 4 extremities [...] castle md on at 1211 rpt #: [id number] end of report 2021-11-26 [facility]:01[facility]00[facility] [facility] consult note report#:[id number] report status: signed date:11/26/21 time:1201 patient: harleen manzano unit #: [id number] room/bed: [place] [address] : 80 age: 40 sex: f attend: samanta castle md adm dt: 11/25/21 author: jose garland * all edits or amendments must be made on the [employer]computer document * history of present illness free [...] home and she went to see her stone hand on and w as told that she [...] b/p 148/78 11/26 1599 b/p mean 101 11/25 1600 o2 delivery room air 11/26 1599 temp 102.5 11/25 1600 pulse 115 11/25 [...] or potentially a gas gangrene. impression by: [email or web address] - christine marshall m.d. results: labs reviewed, [...] mtp joint. mild swelling of 4th toe gate attendant alert oriented x3 moving all 4 extremities [...] garland on 11/26/21 at 1209 rpt #: [id number] end of report 2021-11-25 19:27:00-00:[address] [facility] ([facility]) Pharmacy Prog.Note-Vancomycin REPORT#:[id number] REPORT STATUS: Signed DATE:11/25/21 TIME:1926 PATIENT: HARLEEN MANZANO UNIT #: [id number] ROOM/BED: [place] [address] : 80 AGE: 40 SEX: F ATTEND: Samanta Castle MD ADM AUTHOR: Verna Hickman [facility] * ALL edits or amendments must be made on the [employer]/computer document * Vancomycin Vancomycin Medication Therapy Goal: trough 15-20 mcg/mL Indication for treatment: OSTEOMYELITIS Day of therapy: 1 Weight: Actual weight (kg): 165.9 Labs: Laboratory Test : 11/26 1619 Chemistry BUN (7 - 18 MG/DL) 6 L Creatinine (0.6 - 1.0 MG/DL) 1.3 H Hematology WBC (3.5 - 11.0 K/mm3) 12.3 H Microbiology: 11/25 1822 NASAL: MRSA Screen - ORD 11/26 1619 BLOOD: Blood Culture - RECD 11/25 1615 BLOOD: Blood Culture - RECD Treatment plan: consult, initiation of therapy Regimen: BMI 51 VANC 1 G X1 IN ER VANC 1.25 G Q12H TROUGH 11/27 0800 Electronically Signed by Verna Hickman [facility] on 0 11/25/21 at 1930 RPT #: [id number] END OF REPORT 2021-11-25 18:53:00-00:[address] [facility] ([facility]) Hospitalist History Physical REPORT#:[id number] REPORT STATUS: Signed DATE:11/25/21 TIME:1852 PATIENT: HARLEEN MANZANO UNIT #: [id number] ROOM/BED: [place] [address] : 80 AGE: 40 SEX: F ATTEND: Samanta Castle MD ADM AUTHOR: Yusuf Castle MD * ALL edits or amendments must be made on the [employer] document * History of Present Illness HPI [...] home and she went to see her stone hand on and w as told that she [...] (Auto) (20.5 - 51.1 %) 15.9 L Dubois % (Auto) (1.7 - 9.3 %) 4.9 Eos % (Auto) (0.0 - 6.0 %) 0.0 Baso % (Auto) (0.0 - 2.0 %) 0.2 Neut # (Auto) (1.8 - 7.6 K/mm3) 9.7 H Lymph # (Auto) (0.6 - 3.2 K/mm3) 2.0 Dubois # (Auto) (0.3 - 1.1 K/mm3) 0.6 [...] malodorous wound no discharge nontender dusky colored FLIGHT FOLLOWER alert oriented x3 moving all 4 extremities [...] Castle MD on at 1902 RPT #: [id number] END OF REPORT 2021-11-25 17:03:00-00:00 [id number] [facility] [address] [place] [address] patient name: harleen manzano admit date: 2 account no: [id number] room no: [facility] age: 41 report type: eelectrocardiogram sex: f admitting physician: yusuf castle md attending physician: yusuf castle md order: [id number] test reason : cp test date/time stamp: [...] previous ecgs available confirmed by md eloisa, amir ([id number]) on 11:13:24 am referred by: self referred confirmed by:ramon robert md electronically signed by ramon amin md on 11/29/21 at 1113 patient name: harleen manzano 3430 2021-11-25 16:12:00-00:00 [facility] ([facility]) emergency provider report report#:[id number] report status: signed date:11/25/21 time:1612 patient: harleen manzano unit #: [id number] room/bed: [facility]10-1 : 80 age: 40 sex: f pcp phys: no primar y or family physician service dt: 11/25/21 author: michael wu do * all edits or amendments must be made on the [employer]/computer document * hpi-general illness general confirmed patient [...] text hpi notes states she saw her stone hand last week and was instructed to come [...] dme - glucose lancets (glucose lancets) each tx sc daily #400 prov: 10/22/21 dme - glucose meter (glucose meter) each misc as dir dme - glucose meter (glucose meter) [facility] prov: 10/22/21 dme - [...] a gas gangrene. impression by: [email or web address] - sankaman praisoody, m.d. ecg #1 interpretation text/dict note sinus [...] chloride 1,000 ml x1ed sta 11/25 1610 d c 11/25 iv 11/25 1710 1759 gastrointestinal drugs sig/aubrey start time last medication dose route stop time status admin ondansetron hcl 4 mg x1ed sta 11/25 1713 dc iv 11/25 1714 1733 consultation consultation referral/consult name jose garland md it systems analyst consultant called orthopedic requested call time 181 requested call date 11/25/21 call returned call returned call returned time 1814 call returned date 11/25/21 it systems analyst consultant will see patient patient discharge departure [...] sepsis disposition decision admit admit physician name tin,yusufgiovanny cifuentes md admit physician hospitalist request time 180 [...] by michael wu do on at 1041 [facility] #: [id number] end of report 2021-11-22 22:37:00-00:00 [id number] [place] [address] PATIENT NAME: HARLEEN MANZANO ADMIT DATE: 2 ACCOUNT NO: [id number] ROOM NO: AGE: 40 REPORT TYPE: DISCHARGE [...] patient. Dictated By: Delisa Shepherd MD WT: DS:FRANCIS/MALINA Conf#: [id number]/DID#: [id number] Authenticated and Edited by Delisa Shepherd MD On 11/23/21 7:15:29 AM at 0717 PATIENT NAME: HARLEEN MANZANO [id number] 2021-10-22 19:49:00-00:00 [facility] ([facility]) Infectious Dis. Progress Note REPORT#:[id number] REPORT STATUS: Signed DATE:10/22/21 TIME: 1948 PATIENT: HARLEEN MANZANO UNIT #: [id number] ROOM/BED: [place] [address] : 80 AGE: 40 SEX: F ATTEND: Shoaib Shepherd MD ADM AUTHOR: Pradip Akhtar MD, MD * ALL edits or amendments must be made on the [employer]/computer document * Subjective Chief complaint: DKA HPI: [...] (DCD) Heparin Sodium (HEPARIN 5000 UNITS/ML) 5,000 UN IT Q8H SUBQ (DCD) Dextrose/Water (DEXTROSE 50% W [...] Akhtar MD, MD on at 1950 RPT #:[id number] END OF REPORT 2021-10-22 18:32:00-00:00 [facility]) Podiatry Progress Note REPORT#:[id number] REPORT STATUS: Signed DATE:10/22/21 TIME: 1831 PATIENT: HARLEEN MANZANO UNIT #: [id number] ROOM/BED: [place] [address] : 80 AGE: 40 SEX: F ATTEND: Shoaib Shepherd MD ADM AUTHOR: Kristin Alvarenga DPM * ALL edits or amendments must be made on the [employer] document * Subjective Chief complaint: left and [...] Human Lispro (HUMALOG) 6 UNIT AC SUBQ ( DCD) Potassium Chloride (POTASSIUM CHLORIDE 20MEQ TAB .ER) [...] Kristin Alvarenga DPM on at 1509 RPT #:[id number] END OF REPORT 2021-10-22 16:13:00-00:[address] [facility] Nephrology Progress Note REPORT#:[id number] REPORT STATUS: Signed DATE:10/22/21 TIME: 1613 PATIENT: HARLEEN MANZANO UNIT #: [id number] ROOM/BED: [place] [address] : 80 AGE: 40 SEX: F ATTEND: Shoaib Shepherd MD ADM AUTHOR: Timoteo Walker MD * ALL edits or amendments must be made on the [employer]computer document * Subjective Comments: Data and notes, [...] Flow FiO2 Mean Ox Delivery Rate 10/22 1522 [...] obese Genitourinary: no flank pain Extremities: swelling Neuro/FLIGHT FOLLOWER: alert, oriented X 3 Skin: intact Psychiatry: [...] MD on 10/09 07/31 at 1616 RPT #:[id number] END OF REPORT 2021-10-22 08:40:00-00:00 [facility] Rehab Progress Note REPORT#:[id number] REPORT STATUS: Signed DATE:10/22/21 TIME: 0840 PATIENT: HARLEEN MANZANO UNIT #: [id number] ROOM/BED: [address]141[address]1 : 80 AGE: 40 SEX: F ATTEND: Shoaib Shepherd MD ADM AUTHOR: Ema Hernandez PA-C * ALL edits or amendments must be made on the [employer]/computer document * Subjective Chief complaint: Pt seen [...] ACTIVITIES PERFORMED: Bed Mobility - Rolling: Modified Warrick Bed Mobility - Supine to Sit: Modified Independ ence Bed Mobility - Sit to Supine: Modified Independ ence Scooting: Modified Warrick Pivot Transfer: Modified Warrick Trunk control: Modified Warrick Sit to Stand: Modified Warrick Static Sitting: Modified Warrick Dynamic Sitting: Modified Warrick Static Standing: Modified Warrick Dynamic Standing: Modified Warrick Functional Ambulation: Supervision or Set-up Distance in Feet: 15 Functional Exercises: BED MOBILITY SITTING EOB SIT TO STANDS GAIT STEP TAPS ATTEMPTED STEP UPS Durable Medical Equipment Currently Utilized: Hospital Bed Walker, Rolling Effects of Treatment: [place] of care decreased Post [place] Precautions: IN BED CALL BUTTON WITHIN REACH NURSING NOTIFIED Functional Mob.Cmt: PT AGREEABLE TO STEPHEN Stauffer SESSION, CASE MANAGMENT STATED PT INPATIENT REHAB [...] BEDROOM AND FULL BATH IS UPSTAIRS, HOWEVER THE RE IS A HALF BATH AND BED TO STAY DOWN STAIRS. PT PRESENTS WITH SAFETY DEFICITS AND IS UNABLE AT THIS TIME TO ACCESS UPSTAIRS TO TAKE A SHOWER. PT STATES HER SISTER IS COMING INTO TOWN NEXT WEEK TO ASSIST NEEDED. P.T. CONTINUES TO RECOMMEND INPATIENT REHAB. WILL CONTINUE GAIT TRAINING, STAIR TRAINING, SAFETY EDUCATION WHILE IN HOSPITAL. NURSE NOTIFIEID. ATTEMPTED TO FIND [employer]PER[employer] CHARGE LOADING HOWEVER PER NURSE, SUPER[employer] CHARGE LOAD[employer] IS GONE FOR THE DAY. PT charges: FT/Therap. Activity 14278 If this is the patient's last treatment, this e ntry serves as the discharge summary: Y Start time: 1516 Stop time: 1546 Treatment Time : ( minutes) 0:30 Completed by: Rosanna Thomas . Physical Therapy: Plan of Care Short Term Goals TARGET DATE GOAL MET Mcfp Goals TARGET DATE GOAL MET . PRIOR [...] after session Document OT charges: SELF/HOME MGT/ADL [id number] Document Pain/Education: No Review OT Plan of Care: Yes If this is the patient's last treatment, this e ntry serves as the discharge summary: Y Start Time: 1023 Stop Time: 1035 Treatment time ( minutes): 0:12 Completed by: Sin Bess - GROOMING/HYGIENE: Washing hands/face: Modified Warrick Oral Hygiene: Modified Warrick Combing/brushing hair: Not Tested Applying/removing make-up: Not Tested Shaving face: Not Applicable ----- Toileting: Modified Warrick Safety awareness demonstrated during completion of task: Yes Requires set up of supplies: No ----- ----- ----- ----- . Occupational Therapy: Plan of Care OT Problem List: 1 Impaired Strength/ROM 5 Impaired Functional Mobil 3 Impaired Balance 7 Impaired ADL CUSTODIAL GOALS TARGET DATE GOAL MET 1: Complete [...] range of motion normal, strength testing normal Neuro/FLIGHT FOLLOWER: alert, oriented X 3, no motor deficit [...] Ema Hernandez PA-C on at 1823 RPT #:[id number] END OF REPORT 2021-10-21 20:05:00-00:[address] [facility] Hospitalist Progress Note REPORT#:[id number] REPORT STATUS: Signed DATE:10/21/21 TIME: 2004 PATIENT: HARLEEN MANZANO UNIT #: [id number] ROOM/BED: [place] [address] : 80 AGE: 40 SEX: F ATTEND: Laura Trinh ADM AUTHOR: Delisa Shepherd MD * ALL edits or amendments must be made on the [employer]/computer document * Subjective Chief complaint: Patient too high functioning [facility]. Patient got denied. Patient [...] soft, no distention Extremities: b/l feet wound Neuro/FLIGHT FOLLOWER: alert, oriented X 3, CNII-XII intact, normal [...] (Auto) (14.0 - 32.0 %) 38.8 H Dubois % (Auto) (4.8 - 9.0 %) 9.0 Eos % (Auto) (0.3 - 3.7 %) 0.2 L Baso % (Auto) (0.0 - 2.0 %) 0.7 Neut # (Auto) (2.0 - 7.6 x10 3/uL) 6.58 Lymph # (Auto) (1.0 - 3.8 x10 3/uL) 5.00 H Dubois # (Auto) (0.1 - 0.8 x10 3/uL) [...] attest that the foregoing medication list in [facility] medical record is true, accurate, and complete to the best of my knowled ge. Electronically Signed by Delisa Shepherd MD on 0 10/21/21 at 2007 RPT #:[id number] END OF REPORT 2021-10-21 19:47:00-00:[address] [facility] Podiatry Progress Note REPORT#:[id number] REPORT STATUS: Signed DATE:10/21/21 TIME: 1946 PATIENT: HARLEEN MANZANO UNIT #: [id number] ROOM/BED: [place] [address] : 80 AGE: 40 SEX: F ATTEND: Shoaib Shepherd MD ADM AUTHOR: Kristin Alvarenga DPEsau * ALL edits or amendments must be made on the [employer]/computer document * Subjective Chief complaint: left and [...] (Auto) (14.0 - 32.0 %) 38.8 H Dubois % (Auto) (4.8 - 9.0 %) 9.0 Eos % (Auto) (0.3 - 3.7 %) 0.2 L Baso % (Auto) (0.0 - 2.0 %) 0.7 Neut # (Auto) (2.0 - 7.6 x10 3/uL) 6.58 Lymph # (Auto) (1.0 - 3.8 x10 3/uL) 5.00 H Dubois # (Auto) (0.1 - 0.8 x10 3/uL) [...] Kristin Alvarenga DPM on at 1509 RPT #:[id number] END OF REPORT 2021-10-21 15:37:00-00:00 [facility] ([facility] Infectious Dis. Progress Note REPORT#:[id number] REPORT STATUS: Signed DATE:10/21/21 TIME: 1537 PATIENT: HARLEEN MANZANO UNIT #: [id number] ROOM/BED: [place] [address] : 80 AGE: 40 SEX: F ATTEND: Laura Trinh ADM AUTHOR: Pradip Akhtar MD, MD * ALL edits or amendments must be made on the [employer]/computer document * Subjective Chief complaint: DKA HPI: [...] (Auto) (14.0 - 32.0 %) 38.8 H Dubois % (Auto) (4.8 - 9.0 %) 9.0 Eos % (Auto) (0.3 - 3.7 %) 0.2 L Baso % (Auto) (0.0 - 2.0 %) 0.7 Neut # (Auto) (2.0 - 7.6 x10 3/uL) 6.58 Lymph # (Auto) (1.0 - 3.8 x10 3/uL) 5.00 H Dubois # (Auto) (0.1 - 0.8 x10 3/uL) [...] Akhtar MD, MD on at 1539 RPT #:[id number] END OF REPORT 2021-10-21 15:31:00-00:00 [facility] ([facility]) Nephrology Progress Note REPORT#:[id number] REPORT STATUS: Signed DATE:10/21/21 TIME: 1531 PATIENT: HARLEEN MANZANO UNIT #: [id number] ROOM/BED: [place] [address] : 80 AGE: 40 SEX: F ATTEND: Laura Trinh ADM AUTHOR: Timoteo Walker MD * ALL edits or amendments must be made on the [employer]/computer document * Subjective Comments: Data and notes, reviewed Dw Rn Nad Review of Systems Constitutional: Denies: fever. Respiratory: Denies: non productive cough, productive cough ( sputum). Cardiovascular: Denies: chest pain. GI: Denies: abdominal pain, nausea. Heme: Denies: bleeding. Neuro: Denies: change in LOC, confusion. Objective General VS/I O: Vital Signs: Date Time Temp Pulse Resp B/P B/P Pulse O2 O2 Flow FiO2 Mean Ox Delivery Rate 10/21 1123 [...] soft, obese Genitourinary: urinary catheter Extremities: swelling Neuro/FLIGHT FOLLOWER: alert, oriented X 3 Psychiatry: no hallucinations [...] MD on 10/09 06/30 at 1532 RPT #:[id number] END OF REPORT 2021-10-21 13:30:00-00:00 [facility] Endocrinology Progress Note REPORT#:[id number] REPORT STATUS: Signed DATE:10/21/21 TIME: 1330 PATIENT: HARLEEN MANZANO UNIT #: [id number] ROOM/BED: [place] [address] : 80 AGE: 40 SEX: F ATTEND: Shoabi Shepherd MD ADM AUTHOR: Gino Hernandez * ALL edits or amendments must be made on the [employer]/computer document * Subjective Chief complaint: f/u DM [...] not indicated Extremities: warm Musculoskeletal: normal inspection Neuro/FLIGHT FOLLOWER: alert, oriented X 3, normal speech Skin: [...] (Auto) (14.0 - 32.0 %) 38.8 H Dubois % (Auto) (4.8 - 9.0 %) 9.0 Eos % (Auto) (0.3 - 3.7 %) 0.2 L Baso % (Auto) (0.0 - 2.0 %) 0.7 Neut # (Auto) (2.0 - 7.6 x10 3/uL) 6.58 Lymph # (Auto) (1.0 - 3.8 x10 3/uL) 5.00 H Dubois # (Auto) (0.1 - 0.8 x10 3/uL) [...] (Auto) (14.0 - 32.0 %) 38.8 H Dubois % (Auto) (4.8 - 9.0 %) 9.0 Eos % (Auto) (0.3 - 3.7 %) 0.2 L Baso % (Auto) (0.0 - 2.0 %) 0.7 Neut # (Auto) (2.0 - 7.6 x10 3/uL) 6.58 Lymph # (Auto) (1.0 - 3.8 x10 3/uL) 5.00 H Dubois # (Auto) (0.1 - 0.8 x10 3/uL) [...] Mooney MD on 0 10/23/21 at 1523 [facility] #:[id number] END OF REPORT 2021-10-21 13:20:00-00:00 [id number] [place] [address] PATIENT NAME: HARLEEN MANZANO ADMIT DATE: 2 ACCOUNT NO: [id number] ROOM NO: [id number].[id number] AGE: 40 REPORT TYPE: 360 - QUERY RESPONSE DOCUMENT SEX: F ADMITTING PHYSICIAN:Laura Trinh MD ATTENDING PHYSICIAN:Laura Trinh MD Provider Query QUERY TEXT: Stage CKD 360MD Query related questions should be directed to: [facility] Coding Query Hotline Based on your clinical [...] NAME: HARLEEN MANZANO 8326 2021-10-21 06:52:00-00:[address] [facility] Acute Rehab Consult REPORT#:[id number] REPORT STATUS: Signed DATE:10/21/21 TIME: 651 PATIENT: HARLEEN MANZANO UNIT #: [id number] ROOM/BED: [place] [address] : 80 AGE: 40 SEX: F ATTEND: Laura Trinh ADM AUTHOR: Ema Hernandez PA-C * ALL edits or amendments must be made on the el [employer]/computer document * History of Present Illness HPI [...] and was intubated with central line placed. Marge mcclure was admitted secondary to DKA and found [...] shows no acute intercranial abnormalities. Chest x-ray marge ows ill-defined bibasilar infiltrates diminished lung volumes [...] with grooming/ hygiene, modified independent with toileting, blankesnhip pervision with lower body dressing. 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 PT charges: FT/Therap. Activity 76849 If this is the patient's last treatment, [...] to participate Document OT charges: SELF/HOME MGT/ADL [id number] Document Pain/Education: No Review OT Plan of [...] Shaving face: Not Applicable ----- Toileting: Modified [place] Safety awareness demonstrated during completion of task: [...] Status Admin Amoxicillin 500 MG Q8HR 10/18 2200 AC 10/21 (AMOXIL) PO 11/01 2159 0453 Fluconazole/Sodium 100 ML DAILY 10/13 09 DC 0 10/20 Chloride IV 10/23 0859 [...] MG Q6H PRN PRN 10/12 2315 AC 10/17 (LABETALOL HCL) IV 11/11 2314 0003 [...] 0852 Dextrose/Water 50 ML ASDIR PRN 10/08 2129 CKD (DEXTROSE 50% W IV 11/07 2128 [...] 2100 AC 10/09 2 (Lantus/Semglee) SUBQ 11/19 205 222 Insulin Human Lispro 5 UNIT AC 10/20 1630 AC (HUMALOG) SUBQ 11/19 1629 1726 Insulin Glargine 20 UNIT DAILY 10/18 0905 DC (Lantus/Semglee) SUBQ 11/17 0904 0821 Insulin Human Lispro 0 AC HS 10/15 1630 AC 10/09 2 (HUMALOG) SUBQ 11/14 162 222 Allergies: Coded Allergies: Sulfa (Sulfonamide Antibiotics) (Mild, HIVES ) Objective Physical Exam VS: Last Documented: Result Date Time Pulse Ox 96 10/21 0335 B/P 131/80 10/21 0335 B/P Mean 96.7 10/21 0335 O2 Delivery Room air 10/21 0335 Temp 98.2 10/21 0335 Pulse 88 10/21 0335 Resp 17 10/21 0335 FiO2 21 10/15 0920 O2 Flow Rate [...] range of motion normal, strength testing normal Neuro/FLIGHT FOLLOWER: alert, oriented X 3, no motor deficit [...] Ema Hernandez PA-C on at 1441 RPT #:[id number] END OF REPORT 2021-10-20 23:40:00-00:[address] [facility] Hospitalist Progress Note REPORT#:[id number] REPORT STATUS: Signed DATE:10/20/21 TIME: 2340 PATIENT: HARLEEN MANZANO UNIT #: [id number] ROOM/BED: [place] [address] : 80 AGE: 40 SEX: F ATTEND: Laura Trinh ADM AUTHOR: Delisa Shepherd MD * ALL edits or amendments must be made on the [employer]/computer document * Subjective Chief complaint: per PT [...] soft, no distention Extremities: b/l feet wound Neuro/FLIGHT FOLLOWER: alert, oriented X 3, CNII-XII intact, normal [...] % (Auto) (14.0 - 32.0 %) 30.5 Dubois % (Auto) (4.8 - 9.0 %) 8.7 Eos % (Auto) (0.3 - 3.7 %) 0.1 L Baso % (Auto) (0.0 - 2.0 %) 0.6 Neut # (Auto) (2.0 - 7.6 x10 3/uL) 8.82 H Lymph # (Auto) (1.0 - 3.8 x10 3/uL) 4.52 H Dubois # (Auto) (0.1 - 0.8 x10 3/uL) [...] Delisa Shepherd MD on 0 10/21/21 at 0952 RPT #:[id number] END OF REPORT 2021-10-20 15:55:00-00:00 [facility] ([facility]) Nephrology Progress Note REPORT#:[id number] REPORT STATUS: Signed DATE:10/20/21 TIME: 1555 PATIENT: HARLEEN MANZANO UNIT #: [id number] ROOM/BED: [place] [address] : 80 AGE: 40 SEX: F ATTEND: Laura Trinh ADM AUTHOR: Timoteo Walker MD * ALL edits or amendments must be made on the [employer]/itzat document * Subjective Comments: Data and notes, [...] O2 Flow FiO2 Mean Ox Delivery Rate 10/20 1158 [...] soft, obese Genitourinary: urinary catheter Extremities: swelling Neuro/FLIGHT FOLLOWER: alert, oriented X 3 Psychiatry: no hallucinations [...] MD on 10/09 06/02 at 1557 RPT #:[id number] END OF REPORT 2021-10-20 14:58:00-00:00 [facility] ([facility]) Infectious Dis. Progress Note REPORT#:[id number] REPORT STATUS: Signed DATE:10/20/21 TIME: 1458 PATIENT: HARLEEN MANZANO UNIT #: [id number] ROOM/BED: [place] [address] : 80 AGE: 40 SEX: F ATTEND: Laura Trinh ADM AUTHOR: Pradip Akhtar MD, MD * ALL edits or amendments must be made on the [employer]/computer document * Subjective Chief complaint: DKA HPI: [...] Documented: Result Date Time Pulse Ox 98 / 1158 B/P 100/70 / 1158 B/P Mean 80.1 / 1158 O2 Delivery Room air 10/20 1158 Temp 98.2 07/ 1158 Pulse 103 / 1158 Resp 18 10/20 1158 FiO2 21 / 0920 O2 Flow [...] % (Auto) (14.0 - 32.0 %) 30.5 Dubois % (Auto) (4.8 - 9.0 %) 8.7 Eos % (Auto) (0.3 - 3.7 %) 0.1 L Baso % (Auto) (0.0 - 2.0 %) 0.6 Neut # (Auto) (2.0 - 7.6 x10 3/uL) 8.82 H Lymph # (Auto) (1.0 - 3.8 x10 3/uL) 4.52 H Dubois # (Auto) (0.1 - 0.8 x10 3/uL) [...] Akhtar MD, MD on at 1459 RPT #:[id number] END OF REPORT 2021-10-20 14:21:00-00:00 [facility] ([facility]) Endocrinology Progress Note REPORT#:[id number] REPORT STATUS: Signed DATE:10/20/21 TIME: 1420 PATIENT: HARLEEN MANZANO UNIT #: [id number] ROOM/BED: [place] [address] : 80 AGE: 40 SEX: F ATTEND: Shoaib Shepherd MD ADM AUTHOR: Gino Hernandez * ALL edits or amendments must be made on the [employer]/computer document * Subjective Chief complaint: f/u DM I tolerating diet had fruit today Objective General VS: Last Documented: Result Date Time Pulse Ox 98 10/20 1158 B/P 100/70 10/20 1158 B/P Mean 80.1 10/20 1158 O2 Delivery Room air 10/20 1158 Temp 98.2 10/20 1158 Pulse 103 10/20 1158 Resp 18 10/20 1158 FiO2 21 10/15 0920 O2 Flow Rate 15.0 /03 1600 PATIENT WEIGHT: Weight (lb): 378 Weight [...] not indicated Extremities: warm Musculoskeletal: normal inspection Neuro/FLIGHT FOLLOWER: alert, oriented X 3, normal speech Skin: [...] % (Auto) (14.0 - 32.0 %) 30.5 Dubois % (Auto) (4.8 - 9.0 %) 8.7 Eos % (Auto) (0.3 - 3.7 %) 0.1 L Baso % (Auto) (0.0 - 2.0 %) 0.6 Neut # (Auto) (2.0 - 7.6 x10 3/uL) 8.82 H Lymph # (Auto) (1.0 - 3.8 x10 3/uL) 4.52 H Dubois # (Auto) (0.1 - 0.8 x10 3/uL) [...] 10/20 10/20 10/19 1156 0753 0636 0550 4427 Chemistry Sodium (134 - 147 mEq/L) 137 [...] % (Auto) (14.0 - 32.0 %) 30.5 Dubois % (Auto) (4.8 - 9.0 %) 8.7 Eos % (Auto) (0.3 - 3.7 %) 0.1 L Baso % (Auto) (0.0 - 2.0 %) 0.6 Neut # (Auto) (2.0 - 7.6 x10 3/uL) 8.82 H Lymph # (Auto) (1.0 - 3.8 x10 3/uL) 4.52 H Dubois # (Auto) (0.1 - 0.8 x10 3/uL) [...] MD on 0 10/23/21 at 1523 RPT #:[id number] END OF REPORT 2021-10-19 22:49:00-00:00 [facility] ([facility]) Hospitalist Progress Note REPORT#:[id number] REPORT STATUS: Signed DATE:10/19/21 TIME: 2248 PATIENT: HARLEEN MANZANO UNIT #: [id number] ROOM/BED: [place] [address] : 80 AGE: 40 SEX: F ATTEND: Laura Trinh ADM AUTHOR: Delisa Shepherd MD * ALL edits or amendments must be made on the [employer] document * Subjective Chief complaint: PT/OT seen. [...] soft, no distention Extremities: b/l feet wound Neuro/FLIGHT FOLLOWER: alert, oriented X 3, CNII-XII intact, normal [...] (Auto) (14.0 - 32.0 %) 38.3 H Dubois % (Auto) (4.8 - 9.0 %) 11.0 H Eos % (Auto) (0.3 - 3.7 %) 0.2 L Baso % (Auto) (0.0 - 2.0 %) 0.6 Neut # (Auto) (2.0 - 7.6 x10 3/uL) 6.03 Lymph # (Auto) (1.0 - 3.8 x10 3/uL) 4.67 H Dubois # (Auto) (0.1 - 0.8 x10 3/uL) 1.34 H Eos # (Auto) (0.0 - 0.2 x10 3/uL) 0.02 Baso # (Auto) (0.0 - 0.2 x10 3/uL) 0.07 Abs Immat Gran (auto) (0.00 - 0.03 x10 3/uL) 0 .05 H Add Manual Diff NO Immature Gran [...] Shepherd MD on 0 10/19/21 at 2253 [facility] #:[id number] END OF REPORT 2021-10-19 12:55:00-00:00 [facility] ([facility] Nephrology Progress Note REPORT#:[id number] REPORT STATUS: Signed DATE:10/19/21 TIME: 1255 PATIENT: HARLEEN MANZANO UNIT #: [id number] ROOM/BED: [facility] : 80 AGE: 40 SEX: F ATTEND: Laura Trinh ADM AUTHOR: Timoteo Walker MD * ALL edits or amendments must be made on the [employer]/computer document * Subjective Comments: Data and notes, [...] soft, obese Genitourinary: urinary catheter Extremities: swelling Neuro/FLIGHT FOLLOWER: alert, oriented X 3 Psychiatry: no hallucinations [...] Walker MD on 10/09 05/02 at 1257 [facility] #:[id number] END OF REPORT 2021-10-19 11:47:00-00:00 [facility] ([facility] Infectious Dis. Progress Note REPORT#:[id number] REPORT STATUS: Signed DATE:10/19/21 TIME: 1147 PATIENT: HARLEEN MANZANO UNIT #: [id number] ROOM/BED: [place] [address] : 80 AGE: 40 SEX: F ATTEND: Laura Trinh ADM AUTHOR: Pradip Akhtar MD, MD * ALL edits or amendments must be made on the [employer] document * Subjective Chief complaint: DKA HPI: [...] Tests 10/19 10/19 10/19 10/18 10/18 1103 07524 Chemistry Sodium (134 - 147 mEq/L) 141 [...] (Auto) (14.0 - 32.0 %) 38.3 H Dubois % (Auto) (4.8 - 9.0 %) 11.0 H Eos % (Auto) (0.3 - 3.7 %) 0.2 L Baso % (Auto) (0.0 - 2.0 %) 0.6 Neut # (Auto) (2.0 - 7.6 x10 3/uL) 6.03 Lymph # (Auto) (1.0 - 3.8 x10 3/uL) 4.67 H Dubois # (Auto) (0.1 - 0.8 x10 3/uL) [...] Akhtar MD, MD on at 1148 RPT #:[id number] END OF REPORT 2021-10-18 17:03:00-00:00 [facility] ([facility]) Infectious Dis. Progress Note REPORT#:[id number] REPORT STATUS: Signed DATE:10/18/21 TIME: 1703 PATIENT: HARLEEN MANZANO UNIT #: [id number] ROOM/BED: [facility] : 80 AGE: 40 SEX: F ATTEND: Laura Trinh ADM AUTHOR: Pradip Akhtar MD, MD * ALL edits or amendments must be made on the [employer]/computer document * Subjective Chief complaint: DKA HPI: [...] Delivery Room air 10/18 1656 Temp 98.2 / 1656 Pulse 83 / 1656 Resp 18 10/18 1656 FiO2 21 [...] (Auto) (14.0 - 32.0 %) 46.9 H Dubois % (Auto) (4.8 - 9.0 %) 12.0 H Eos % (Auto) (0.3 - 3.7 %) 0.2 L Baso % (Auto) (0.0 - 2.0 %) 0.5 Neut # (Auto) (2.0 - 7.6 x10 3/uL) 4.54 Lymph # (Auto) (1.0 - 3.8 x10 3/uL) 5.35 H Dubois # (Auto) (0.1 - 0.8 x10 3/uL) [...] Akhtar MD, MD on at 1707 RPT #:[id number] END OF REPORT 2021-10-18 10:29:00-00:00 [facility] ([facility]) Podiatry Progress Note REPORT#:[id number] REPORT STATUS: Signed DATE:10/18/21 TIME: 1029 PATIENT: HARLEEN MANZANO UNIT #: [id number] ROOM/BED: [place] [address] : 80 AGE: 40 SEX: F ATTEND: Laura Trinh ADM AUTHOR: Martir ZamoraEsau * ALL edits or amendments must be made on the [employer]/computer document * Subjective Chief complaint: left and right foot ulcers Patient reports: no abdomina l pain, no chest pain, no cough, no fever, no nausea Objective General VS: Last Documented: Result Date Time Pulse Ox 97 10/18 08 B/P 132/73 10/18 0804 B/P Mean 92.8 10/18 08 O2 Delivery Room air 10/18 08 Temp 98.6 10/18 0804 Pulse 85 10/18 0804 Resp 18 10/18 08 FiO2 21 10/15 0920 O2 Flow Rate [...] TO REGUL AR ENSURE TID Dietitian name: Travisdavid Husseinrand, DIET Assessment completed: 10/15/21 Provider comments on imported dietitian assessme nt: Physical Exam General appearance: alert, awake, oriented Wound/incision: Location: left and right foot Musculoskeletal: Musculoskeletal: decreased ROM Skin: erythema Ulcer: Location: foot Results Findings/Data: Laboratory Tests: 10/18 10/18 10/18 10/18 10/17 0803 0616 0600 0432 2019 Chemistry Sodium (134 - 147 mEq/L) [...] (Auto) (14.0 - 32.0 %) 46.9 H Dubois % (Auto) (4.8 - 9.0 %) 12.0 H Eos % (Auto) (0.3 - 3.7 %) 0.2 L Baso % (Auto) (0.0 - 2.0 %) 0.5 Neut # (Auto) (2.0 - 7.6 x10 3/uL) 4.54 Lymph # (Auto) (1.0 - 3.8 x10 3/uL) 5.35 H Dubois # (Auto) (0.1 - 0.8 x10 3/uL) [...] Zamora DPM on 01/30 at 1031 RPT #:[id number] END OF REPORT 2021-10-18 08:02:00-00:00 [facility]) Hospitalist Progress Note REPORT#:[id number] REPORT STATUS: Signed DATE:10/18/21 TIME: 801 PATIENT: HARLEEN MANZANO UNIT #: [id number] ROOM/BED: [place] [address] : 80 AGE: 40 SEX: F ATTEND: Laura Trinh MD ADM AUTHOR: Delisa Shepherd MD * ALL edits or amendments must be made on the [employer]/computer document * Subjective Chief complaint: awaiting PT/OT [...] soft, no distention Extremities: b/l feet wound Neuro/FLIGHT FOLLOWER: alert, oriented X 3, CNII-XII intact, normal [...] MD on 0 10/18/21 at 2325 RPT #:[id number] END OF REPORT 2021-10-17 23:29:00-00:00 [facility] Hospitalist Progress Note REPORT#:[id number] REPORT STATUS: Signed DATE:10/17/21 TIME: 2328 PATIENT: HARLEEN MANZANO UNIT #: [id number] ROOM/BED: [place] [address] : 80 AGE: 40 SEX: F ATTEND: Laura Trinh ADM AUTHOR: Delisa Shepherd MD * ALL edits or amendments must be made on the [employer] document * Subjective Chief complaint: awaiting PT/OT [...] 15 154/77 108 100 07/ 0000 98.9 / 0000 87 16 187/84 120 97 24 [...] soft, no distention Extremities: b/l feet wound Neuro/FLIGHT FOLLOWER: alert, oriented X 3, CNII-XII intact, normal [...] attest that the foregoing medication list in [facility] medical record is true, accurate, and complete to the best of my knowled ge. Electronically Signed by Delisa Shepherd MD on 0 10/17/21 at 2331 RPT #:[id number] END OF REPORT 2021-10-17 13:51:00-00:[address] [facility] Endocrinology Progress Note REPORT#:[id number] REPORT STATUS: Signed DATE:10/17/21 TIME: 1351 PATIENT: HARLEEN MANZANO UNIT #: [id number] ROOM[address]BED: [address] : 80 AGE: 40 SEX: F ATTEND: Laura Trinh ADM AUTHOR: Darvin Mooney MD * ALL edits or amendments must be made on the [employer]computer document * Subjective Chief complaint: f/u DM [...] (SENOKOT S) 2 TAB DAILY F EED-TUBE (DC) Cefazolin Sodium (KEFZOL OR ANCEF) 1 [...] MPV (7.0 - 9.0 fL) 11.3 H 10/16 1633 Chemistry POC Glucose (70 - 110 [...] MD on 0 10/17/21 at 1351 RPT #:[id number] END OF REPORT 2021-10-17 10:59:00-00:[address] [facility] Podiatry Progress Note REPORT#:[id number] REPORT STATUS: Signed DATE:10/17/21 TIME: 1059 PATIENT: HARLEEN MANZANO UNIT #: [id number] ROOM/BED: [place] [address] : 80 AGE: 40 SEX: F ATTEND: Laura Trinh ADM AUTHOR: Martir Zamora DPM * ALL edits or amendments must be made on the [employer] document * Subjective Chief complaint: left and right foot ulcers Patient reports: no abdominal pain, no chest eliana n, no cough, no fatigue, no fever, no nausea, no shortness of breath Objective General VS: Last Documented: Result Date Time Pulse Ox 100 10/17 075 B/P 130/78 10/17 0751 B/P Mean 95.4 10/17 0751 O2 Delivery Room air 10/17 750 Temp 98.6 10/17 0751 Pulse 75 10/17 0751 Resp 18 10/17 075 FiO2 21 10/15 09 O2 Flow Rate 15.0 /03 1600 PATIENT WEIGHT: Weight (lb): 378 Weight [...] 10/17 10/17 10/17 10/16 10/16 0749 0330 36 2008 1633 Chemistry Sodium (134 - 147 [...] MPV (7.0 - 9.0 fL) 11.3 H 10/16 1326 Chemistry POC Glucose (70 - 110 [...] Zamora DPM on 12/31 at 1102 RPT #:[id number] END OF REPORT 2021-10-17 06:56:00-00:00 [facility] ([facility]) Nephrology Progress Note REPORT#:[id number] REPORT STATUS: Signed DATE:10/17/21 TIME: 06 PATIENT: HARLEEN MANZANO UNIT #: [id number] ROOM/BED: [facility] : 80 AGE: 40 SEX: F ATTEND: Laura Trinh ADM AUTHOR: Gen Agosto MD * ALL edits or amendments must be made on the [employer]/computer document * Subjective Chief complaint: Chart reviewed Events noted Objective General VS/I O: Vital Signs: Date Time Temp Pulse Resp B/P B/P Pulse O2 O2 F low FiO2 Mean Ox Delivery Rate 10/17 0340 98.6 88 16 159/87 110.7 99 07/09 0200 80 24 170/87 118 96 07/09 0100 81 14 156/76 107 97 07/09 0033 98 Room air / 0029 84 15 154/77 108 100 07/09 [...] I O ending at 0700: 07/ 0700 07/08 1900 Intake Total 509.31 Output [...] soft, obese Genitourinary: urinary catheter Extremities: swelling Neuro/FLIGHT FOLLOWER: alert, oriented X 3 Psychiatry: unable to evaluate Results Findings/Data: Laboratory Tests 10/17 10/17 10/16 10/16 10/16 0330 7 2008 1633 1326 Chemistry Sodium (134 - 147 [...] Calcium (8.0 - 10.5 mg/dL) 9.1 10/16 07 0843 0740 Chemistry Sodium (134 - 147 [...] % (Auto) (14.0 - 32.0 %) 29.4 Dubois % (Auto) (4.8 - 9.0 %) 18.2 H Eos % (Auto) (0.3 - 3.7 %) 0.3 Baso % (Auto) (0.0 - 2.0 %) 0.5 Neut # (Auto) (2.0 - 7.6 x10 3/uL) 6.06 Lymph # (Auto) (1.0 - 3.8 x10 3/uL) 3.58 Dubois # (Auto) (0.1 - 0.8 x10 3/uL) [...] Agosto MD on 12/31 at 1710 RPT #:[id number] END OF REPORT 2021-10-16 17:08:00-00:00 [facility] ([facility]) Infectious Dis. Progress Note REPORT#:[id number] REPORT STATUS: Signed DATE:10/16/21 TIME: 1708 PATIENT: HARLEEN MANZANO UNIT #: [id number] ROOM/BED: [address] : 80 AGE: 40 SEX: F ATTEND: Laura Trinh ADM AUTHOR: Pradip Akhtar MD, MD * ALL edits or amendments must be made on the [employer] document * Subjective Chief complaint: DKA HPI: [...] 21 /07 0920 O2 Delivery Room air / 0920 [...] 07/08 0015 97 16 146/65 94 96 10/16 0000 98.4 10/15 2242 102 19 163/81 114 98 10/15 2146 103 15 147/79 107 99 10/16 1999 98.2 10/15 1804 101 24 167/77 111 99 24 [...] % (Auto) (14.0 - 32.0 %) 29.4 Dubois % (Auto) (4.8 - 9.0 %) 18.2 H Eos % (Auto) (0.3 - 3.7 %) 0.3 Baso % (Auto) (0.0 - 2.0 %) 0.5 Neut # (Auto) (2.0 - 7.6 x10 3/uL) 6.06 Lymph # (Auto) (1.0 - 3.8 x10 3/uL) 3.58 Dubois # (Auto) (0.1 - 0.8 x10 3/uL) [...] (0.0 - 0.1 x10 3/uL) 0. 00 Results: labs reviewed, turner l signs reviewed, [...] Akhtar MD, MD on at 1712 RPT #:[id number] END OF REPORT 2021-10-16 16:35:00-00:00 [facility] ([facility]) Nephrology Progress Note REPORT#:[id number] REPORT STATUS: Signed DATE:10/16/21 TIME: 1635 PATIENT: HARLEEN MANZANO UNIT #: [id number] ROOM/BED: [place] [address] : 80 AGE: 40 SEX: F ATTEND: Laura Trinh ADM AUTHOR: Mary Steiner MD * ALL edits or amendments must be made on the [employer]/computer document * Subjective Chief complaint: Chart reviewed [...] 24 hour I O ending at 0700: 0708 0700 07 1900 Intake Total 971.61 Output [...] (SENOKOT S) 2 TAB DAILY F EED-TUBE Cefazolin Sodium (KEFZOL OR ANCEF) 1 GM [...] soft, obese Genitourinary: urinary catheter Extremities: swelling Neuro/FLIGHT FOLLOWER: alert, oriented X 3 Results Findings/Data: Laboratory [...] % (Auto) (14.0 - 32.0 %) 29.4 Dubois % (Auto) (4.8 - 9.0 %) 18.2 H Eos % (Auto) (0.3 - 3.7 %) 0.3 Baso % (Auto) (0.0 - 2.0 %) 0.5 Neut # (Auto) (2.0 - 7.6 x10 3/uL) 6.06 Lymph # (Auto) (1.0 - 3.8 x10 3/uL) 3.58 Dubois # (Auto) (0.1 - 0.8 x10 3/uL) [...] MD on 0 10/16/21 at 1637 RPT #:[id number] END OF REPORT 2021-10-16 15:09:00-00:00 [facility]) Endocrinology Progress Note REPORT#:[id number] REPORT STATUS: Signed DATE:10/16/21 TIME: 1509 PATIENT: HARLEEN MANZANO UNIT #: [id number] ROOM/BED: [place] [address] : 80 AGE: 40 SEX: F ATTEND: Laura Trinh ADM AUTHOR: Gino Hernandez * ALL edits or amendments must be made on the [employer]/computer document * Subjective Chief complaint: f/u DM I on diet Objective General VS: Last Documented: Result Date Time Pulse Ox 99 10/16 1038 B/P 167/76 10/16 1038 B/P Mean 109 / 1038 Pulse 86 / 1038 Resp 15 10/16 1038 Temp 98.3 10/16 0400 FiO2 21 10/15 0920 O2 Delivery Room air 10/15 0920 O2 Flow Rate 15.0 03 1600 PATIENT WEIGHT: Weight (lb): 378 Weight [...] distress Genitourinary: not indicated Musculoskeletal: normal inspection Neuro/FLIGHT FOLLOWER: alert Findings/data: Laboratory Tests: 10/16 10/16 10/16 [...] % (Auto) (14.0 - 32.0 %) 29.4 Dubois % (Auto) (4.8 - 9.0 %) 18.2 H Eos % (Auto) (0.3 - 3.7 %) 0.3 Baso % (Auto) (0.0 - 2.0 %) 0.5 Neut # (Auto) (2.0 - 7.6 x10 3/uL) 6.06 Lymph # (Auto) (1.0 - 3.8 x10 3/uL) 3.58 Dubois # (Auto) (0.1 - 0.8 x10 3/uL) [...] % (Auto) (14.0 - 32.0 %) 29.4 Dubois % (Auto) (4.8 - 9.0 %) 18.2 H Eos % (Auto) (0.3 - 3.7 %) 0.3 Baso % (Auto) (0.0 - 2.0 %) 0.5 Neut # (Auto) (2.0 - 7.6 x10 3/uL) 6.06 Lymph # (Auto) (1.0 - 3.8 x10 3/uL) 3.58 Dubois # (Auto) (0.1 - 0.8 x10 3/uL) [...] MD on 0 10/17/21 at 1229 RPT #:[id number] END OF REPORT 2021-10-16 11:52:00-00:00 [facility] Hospitalist Progress Note REPORT#:[id number] REPORT STATUS: Signed DATE:10/16/21 TIME: 1152 PATIENT: HARLEEN MANZANO UNIT #: [id number] ROOM/BED: [place] [address] : 80 AGE: 40 SEX: F ATTEND: Laura Trinh ADM AUTHOR: Laura Trinh MD * ALL edits or amendments must be made on the [employer]computer document * Subjective Chief complaint: Patient had a fall by bedside, slipped on the fl oor, did not hit her head. No other complaints Objective General VS/I O: Vital Signs: Date Time Temp Pulse Resp B/P B/P Pulse O2 O2 F low FiO2 Mean Ox Delivery Rate 10/16 1038 86 15 167/76 109 99 /08 0904 93 16 175/79 113 100 07/08 0734 102 23 179/86 123 94 07/08 0638 92 20 154/74 106 98 07/08 0400 98.3 07/08 0015 97 16 146/65 94 96 /08 0000 98.4 10/15 2242 102 19 163/81 114 98 /07 2146 103 15 147/79 107 99 10/15 2000 98.2 10/15 1804 101 24 167/77 111 99 / 1700 96 20 149/72 103 97 / 1601 102 146/65 94 10/15 1600 98.5 [...] soft, no distention Extremities: b/l feet wound Neuro/FLIGHT FOLLOWER: alert, oriented X 3, CNII-XII intact, normal [...] % (Auto) (14.0 - 32.0 %) 29.4 Dubois % (Auto) (4.8 - 9.0 %) 18.2 H Eos % (Auto) (0.3 - 3.7 %) 0.3 Baso % (Auto) (0.0 - 2.0 %) 0.5 Neut # (Auto) (2.0 - 7.6 x10 3/uL) 6.06 Lymph # (Auto) (1.0 - 3.8 x10 3/uL) 3.58 Dubois # (Auto) (0.1 - 0.8 x10 3/uL) [...] okay to transfer out of ICU to [facility]. Quality: Gen Med Crit Care VTE Prophylaxis VTE prophylaxis initiated: yes Current Medications Current medication review: I attest that the foregoing medication list in t he medical record is true, accurate, and complete to the best of my knowled ge. Electronically Signed by Laura Trinh MD on 2 at 1530 RPT #:[id number] END OF REPORT 2021-10-15 22:47:00-00:00 [facility] ([facility]) Infectious Dis. Progress Note REPORT#:[id number] REPORT STATUS: Signed DATE:10/15/21 TIME: 2246 PATIENT: HARLEEN MANZANO UNIT #: [id number] ROOM/BED: M328-1 : 80 AGE: 40 SEX: F ATTEND: Laura Trinh ADM AUTHOR: Pradip Akhtar MD, MD * ALL edits or amendments must be made on the [employer]/computer document * Subjective Chief complaint: DKA HPI: [...] Resp B/P B/P Mean Pulse Ox FiO2 10/14-10/15 97.0-98.5 55-104 11-28 134-173/65-9 4 94-120 94-100 21 Last Documented: Result Date Time Pulse Ox 99 10/15 1804 B/P 167/77 10/15 1804 B/P Mean 111 10/15 1804 Pulse 101 / 1804 Resp 24 10/15 1804 Temp 98.5 10/15 1600 FiO2 21 10/15 0920 O2 Delivery Room air 10/15 0920 O2 Flow Rate 15.0 10/11 1600 Vital Signs: Date Time Temp Pulse Resp B/P B/P Pulse O2 O2 F low FiO2 Mean Ox Delivery Rate 10/15 1804 101 24 167/77 111 99 10/15 1700 96 20 149/72 103 97 10/15 1601 102 146/65 94 07/07 1600 98.5 [...] Hrs Insulin Glargine (Lantus/Semglee) 35 UNIT BID S UBQ Insulin Human Lispro [...] 176 H 249 H Laboratory Tests 10/15 0630 Hematology WBC [...] % (Auto) (14.0 - 32.0 %) 22.5 Dubois % (Auto) (4.8 - 9.0 %) 15.6 H Eos % (Auto) (0.3 - 3.7 %) 0.8 Baso % (Auto) (0.0 - 2.0 %) 0.3 Neut # (Auto) (2.0 - 7.6 x10 3/uL) 7.05 Lymph # (Auto) (1.0 - 3.8 x10 3/uL) 2.68 Dubois # (Auto) (0.1 - 0.8 x10 3/uL) [...] RADIOLOGY - XR CHEST 1 V 10/15 0508 Report Impression - Status: SIGNED Entered: 10/15/2021 [...] Akhtar MD, MD on at 2248 RPT #:[id number] END OF REPORT 2021-10-15 15:54:00-00:00 [facility] ([facility]) Nephrology Progress Note REPORT#:[id number] REPORT STATUS: Signed DATE:10/15/21 TIME: 1554 PATIENT: HARLEEN MANZANO UNIT #: [id number] ROOM/BED: [place] [address] : 80 AGE: 40 SEX: F ATTEND: Laura Trinh ADM AUTHOR: Mary Steiner MD * ALL edits or amendments must be made on the el [employer]/computer document * Subjective Chief complaint: Chart reviewed Events noted Extubated Sitting up at the side of the bed Objective General VS/I O: Vital Signs: Date Time Temp Pulse Resp B/P B/P Pulse O2 O2 F low FiO2 Mean Ox Delivery Rate 10/15 1200 36.7 07/ 0920 98 Room air 21 07/ 0700 36.1 56 12 145/80 106 100 [...] 07/06 2200 36.6 62 14 100 07/06 214 36.6 67 14 07/06 2130 36.6 69 17 07/06 2114 36.7 63 12 99 07/06 2099 36.7 65 14 99 07/06 2044 36.7 68 14 99 07/06 2029 36.7 [...] soft, obese Genitourinary: urinary catheter Extremities: swelling Neuro/FLIGHT FOLLOWER: alert, oriented X 3 Results Findings/Data: Laboratory [...] 224 H 282 H Laboratory Tests 10/15 629 Hematology WBC [...] % (Auto) (14.0 - 32.0 %) 22.5 Dubois % (Auto) (4.8 - 9.0 %) 15.6 H Eos % (Auto) (0.3 - 3.7 %) 0.8 Baso % (Auto) (0.0 - 2.0 %) 0.3 Neut # (Auto) (2.0 - 7.6 x10 3/uL) 7.05 Lymph # (Auto) (1.0 - 3.8 x10 3/uL) 2.68 Dubois # (Auto) (0.1 - 0.8 x10 3/uL) [...] Mary Steiner MD on 0 10/15/21 at 0900 RPT #:[id number] END OF REPORT 2021-10-15 14:04:00-00:00 [facility] ([facility]) Endocrinology Progress Note REPORT#:[id number] REPORT STATUS: Signed DATE:10/15/21 TIME: 1404 PATIENT: HARLEEN MANZANO UNIT #: [id number] ROOM/BED: [place] [address] : 80 AGE: 40 SEX: F ATTEND: Laura Trinh ADM AUTHOR: Gino Hernandez * ALL edits or amendments must be made on the el [employer]/computer document * Subjective Chief complaint: f/u DM I up in bed to start diet Objective General VS: Last Documented: Result Date Time Pulse Ox 98 10/16 919 FiO2 21 10/15 09 O2 Delivery Room air 10/15 0920 B/P 145/80 10/15 699 B/P Mean 106 10/15 699 Temp 97.0 10/15 07 Pulse 56 10/15 0600 Resp 12 10/15 0600 O2 Flow Rate 15.0 10/11 1600 PATIENT [...] distress Genitourinary: not indicated Musculoskeletal: normal inspection Neuro/FLIGHT FOLLOWER: alert Findings/data: Laboratory Tests: 10/15 10/15 10/15 [...] % (Auto) (14.0 - 32.0 %) 22.5 Dubois % (Auto) (4.8 - 9.0 %) 15.6 H Eos % (Auto) (0.3 - 3.7 %) 0.8 Baso % (Auto) (0.0 - 2.0 %) 0.3 Neut # (Auto) (2.0 - 7.6 x10 3/uL) 7.05 Lymph # (Auto) (1.0 - 3.8 x10 3/uL) 2.68 Dubois # (Auto) (0.1 - 0.8 x10 3/uL) [...] Impressions: RADIOLOGY - XR CHEST 1 V 10/16 607 Report Impression - Status: SIGNED Entered: 10/15/202141 [...] % (Auto) (14.0 - 32.0 %) 22.5 Dubois % (Auto) (4.8 - 9.0 %) 15.6 H Eos % (Auto) (0.3 - 3.7 %) 0.8 Baso % (Auto) (0.0 - 2.0 %) 0.3 Neut # (Auto) (2.0 - 7.6 x10 3/uL) 7.05 Lymph # (Auto) (1.0 - 3.8 x10 3/uL) 2.68 Dubois # (Auto) (0.1 - 0.8 x10 3/uL) [...] (0.0 - 0.1 x10 3/uL) 0. 00 10/15 10/14 10/14 0128 2133 1804 Chemistry [...] MD on 0 10/17/21 at 1229 RPT #:[id number] END OF REPORT 2021-10-15 12:18:00-00:00 [facility] Hospitalist Progress Note REPORT#:[id number] REPORT STATUS: Signed DATE:10/15/21 TIME: 1218 PATIENT: HARLEEN MANZANO UNIT #: [id number] ROOM/BED: [place] [address] : 80 AGE: 40 SEX: F ATTEND: Laura Trinh ADM AUTHOR: Laura Trinh MD * ALL edits or amendments must be made on the [employer]/itz[employer] document * Subjective Chief complaint: Patient extubated yesterday. Now widely awake. P assed speech eval. Objective General VS/I O: Vital Signs: Date Time Temp Pulse Resp B/P B/P Pulse O2 O2 F low FiO2 Mean Ox Delivery Rate 10/15 1200 98.1 / 0920 98 Room air 21 07/ 0700 97.0 56 12 145/80 106 100 [...] soft, no distention Extremities: b/l feet wound Neuro/FLIGHT FOLLOWER: alert, oriented X 3, CNII-XII intact, normal [...] % (Auto) (14.0 - 32.0 %) 22.5 Dubois % (Auto) (4.8 - 9.0 %) 15.6 H Eos % (Auto) (0.3 - 3.7 %) 0.8 Baso % (Auto) (0.0 - 2.0 %) 0.3 Neut # (Auto) (2.0 - 7.6 x10 3/uL) 7.05 Lymph # (Auto) (1.0 - 3.8 x10 3/uL) 2.68 Dubois # (Auto) (0.1 - 0.8 x10 3/uL) [...] Report Impression - Status: SIGNED Entered: 10/15/2021 0726 IMPRESSION: Mild vascular congestion. No focal airspace [...] attest that the foregoing medication list in [facility] medical record is true, accurate, and complete to the best of my knowled ge. Electronically Signed by Laura Trinh MD on 2 at 1516 RPT #:[id number] END OF REPORT 2021-10-15 11:16:00-00:00 [facility] ([facility]) Electroencephalogram-EEG REPORT#:[id number] REPORT STATUS: Signed DATE:10/15/21 TIME: 1116 PATIENT: HARLEEN MANZANO UNIT #: [id number] ROOM/BED: [place] [address] : 80 AGE: 40 SEX: F ATTEND: Shoaib Shepherd MD ADM AUTHOR: Maegan Munoz MD * ALL edits or amendments must be made on the [employer]/computer document * Procedure Procedure Date of procedure: 10/15/21 Procedure performed: continuous VEEG Indication: seizure, status epilepticus Impression/Conclusion: Date of procedure: 10/14-10/2021 Procedure performed: continuous VEEG Indication: seizure, status epilepticus Impression/Conclusion: Begin Time: 10/14/2021 226 pm End Time: 10/15/2021 1001am TECHNICAL SUMMARY: 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 There are no definite areas of epileptiform activity noted. Electronically Signed by Maegan Munoz MD n 11/23/21 at 1937 RPT #:[id number] END OF REPORT 2021-10-14 18:18:00-00:00 [facility] ([facility]) Infectious Dis. Progress Note REPORT#:[id number] REPORT STATUS: Signed DATE:10/14/21 TIME: 1817 PATIENT: HARLEEN MANZANO UNIT #: [id number] ROOM/BED: [place] [address] : 80 AGE: 40 SEX: F ATTEND: Laura Trinh ADM AUTHOR: Pradip Akhtar MD, MD * ALL edits or amendments must be made on the [employer]/computer document * Subjective Chief complaint: DKA HPI: 40-year-old female with past medical history sig nificant for diabetes who was found unresponsive by her da maritahter for unknown period of time. Her glucose 1095 and WBC 20 1K. Patient was resuscitated, intubated and central line was placed in ED. Unable to obtain: medical condition Review of Systems Unable to obtain due to: mc Objective General VS/I O: Vital Signs Date Temp Pulse Resp B/P B/P Mean Pulse Ox FiO2 07/-10/14 96.6-98.6 62-91 17-45 141-183/67-99 97-131 100 40 Last Documented: Result Date Time Pulse Ox 100 07/ 1204 FiO2 40 07/ 1204 Pulse 86 07/06 1204 O2 Delivery Ventilator / 0800 B/P 146/69 07/ 0630 B/P Mean 99 / 0630 Temp 97.9 07/ 0630 Resp 18 / 0630 O2 Flow Rate 15.0 07/03 1600 Vital Signs: Date Time Temp Pulse Resp B/P B/P Pulse O2 O2 F low FiO2 Mean Ox Delivery Rate / 1204 86 100 40 07/ 0800 Ventilator 07/ 0750 100 Ventilator 40 / 0750 71 100 40 / 0630 97.9 69 18 146/69 99 100 [...] 97.0 64 18 148/85 111 100 07/05 2045 97.0 64 18 148/85 110 100 07/2029 97.0 65 19 150/85 112 100 10/13 2014 97.0 66 20 152/85 112 100 10/14 1999 97.0 40 10/14 1999 Ventilator 40 10/14 1999 97.0 68 18 154/81 111 100 /1952 69 100 40 07/1944 97.0 77 40 161/95 120 100 / 1930 97.0 66 18 146/88 112 100 / 191 97.0 66 18 145/87 111 100 07/05 190 97.0 68 17 100 07/05 1900 97.0 69 19 145/86 110 100 / 184 97.0 66 18 149/88 113 100 /05 1830 97.0 66 18 149/84 110 100 [...] no clubbing Results Findings/Data: Laboratory Tests 10/14 0311 Blood [...] % (Auto) (14.0 - 32.0 %) 15.0 Dubois % (Auto) (4.8 - 9.0 %) 11.6 H Eos % (Auto) (0.3 - 3.7 %) 0.3 Baso % (Auto) (0.0 - 2.0 %) 0.2 Neut # (Auto) (2.0 - 7.6 x10 3/uL) 8.63 H Lymph # (Auto) (1.0 - 3.8 x10 3/uL) 1.81 Dubois # (Auto) (0.1 - 0.8 x10 3/uL) 1.40 H Eos # (Auto) (0.0 - 0.2 x10 3/uL) 0.04 Baso # (Auto) (0.0 - 0.2 x10 3/uL) 0.02 Abs Immat Gran (auto) (0.00 - 0.03 x10 3/uL) 0 .17 H Add Manual Diff NO Immature Gran % (0.0 - 2.0 %) 1.4 Nucleated RBC % (0 - 0 %) 0.0 Nucleated RBCs # (Man) (0.0 - 0.1 x10 3/uL) 0.0 0 Radiology data: Recent Impressions: RADIOLOGY - XR CHEST 1 V 10/14 6342 Report Impression - Status: SIGNED Entered: 10/14/2021 0262 IMPRESSION: 1. There are prominent bilateral interstitial [...] Akhtar MD, MD on at 1820 RPT #:[id number] END OF REPORT 2021-10-14 18:13:00-00:00 [facility] ([facility]) Electroencephalogram-EEG REPORT#:[id number] REPORT STATUS: Signed DATE:10/14/21 TIME: 181 PATIENT: HARLEEN MANZANO UNIT #: [id number] ROOM/BED: [place] [address] : 80 AGE: 40 SEX: F ATTEND: Shoaib Shepherd MD ADM AUTHOR: Maegan Munoz MD * ALL edits or amendments must be made on the el [employer]/computer document * Procedure Procedure Date of procedure: 10/14/21 Procedure performed: continuous VEEG Indication: seizure, status epilepticus Impression/Conclusion: Date of procedure: 10/14/2021 Procedure performed: continuous VEEG Indication: seizure, status epilepticus Impression/Conclusion: Begin Time: 10/14/2021 626 am End Time: 10/14/2021 226 pm TECHNICAL SUMMARY: 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 There are no definite areas of epileptiform activity noted. Electronically Signed by Maegan Munoz MD 11/23/21 at 1936 RPT #:[id number] END OF REPORT 2021-10-14 16:16:00-00:00 [facility] Note REPORT#:[id number] REPORT STATUS: Signed DATE:10/14/21 TIME: 1615 PATIENT: HARLEEN MANZANO UNIT #: [id number] ROOM/BED: [place] [address] : 80 AGE: 40 SEX: F ATTEND: Laura Trinh ADM AUTHOR: Mary Steiner MD * ALL edits or amendments must be made on the [employer]/computer document * Subjective Chief complaint: Chart reviewed Events noted Off sedation and following commands Objective General VS/I O: Vital Signs: Date Time Temp Pulse Resp B/P B/P Pulse O2 O2 F low FiO2 Mean Ox Delivery Rate 10/14 1204 86 100 40 07/ 0800 Ventilator 10/14 0750 100 Ventilator 40 10/14 0750 71 100 40 07/ 0630 36.6 69 18 146/69 99 100 / 0600 36.4 69 18 144/68 98 100 07/ 0530 36.7 71 17 142/67 97 100 [...] soft, obese Genitourinary: urinary catheter Extremities: swelling Neuro/FLIGHT FOLLOWER: alert, follows commands Results Findings/Data: Laboratory Tests 10/14 031 Blood [...] % (Auto) (14.0 - 32.0 %) 15.0 Dubois % (Auto) (4.8 - 9.0 %) 11.6 H Eos % (Auto) (0.3 - 3.7 %) 0.3 Baso % (Auto) (0.0 - 2.0 %) 0.2 Neut # (Auto) (2.0 - 7.6 x10 3/uL) 8.63 H Lymph # (Auto) (1.0 - 3.8 x10 3/uL) 1.81 Dubois # (Auto) (0.1 - 0.8 x10 3/uL) [...] MD on 0 10/14/21 at 1620 RPT #:[id number] END OF REPORT 2021-10-14 15:32:00-00:00 [facility] Critical Care Progress Note REPORT#:[id number] REPORT STATUS: Signed DATE:10/14/21 TIME: 1532 PATIENT: HARLEEN MANZANO UNIT #: [id number] ROOM/BED: [facility]-1 : 80 AGE: 40 SEX: F ATTEND: Laura Trinh ADM AUTHOR: Greg Mallory MD * ALL edits or amendments must be made on the el [employer]/computer document * Subjective Chief complaint: AMS HPI: 40 year old female with hist ory of DM, obesity. [facility]ed [facility] on with complaints of lethar gy, weakness, nausea, and vomiting. Pt was intubated for airway protection then t x to [facility] d/t bed availabilty. She was found to [...] Delivery Ventilator 10/14 0800 B/P 146/69 10/14 629 B/P Mean 99 10/14 629 Temp 36.6 10/14 629 Resp 18 10/14 629 O2 Flow Rate 15.0 10/11 1600 24 hour I O ending at 0700: 10/14 0700 0705 1900 Intake Total 961.39 1012.79 Output Total [...] (DC) Insulin Glargine (Lantus/Semglee) 30 UNIT BID S UBQ Furosemide (LASIX 20MG [...] no cyanosis, no edema Musculoskeletal normal inspection Neuro/FLIGHT FOLLOWER: altered mental status, disoriented, n o motor [...] 5.0 g/dL) 2.50 L Laboratory Tests 10/14 0415 Hematology WBC (4.5 - 11.0 x10 3/uL) [...] % (Auto) (14.0 - 32.0 %) 15.0 Dubois % (Auto) (4.8 - 9.0 %) 11.6 H Eos % (Auto) (0.3 - 3.7 %) 0.3 Baso % (Auto) (0.0 - 2.0 %) 0.2 Neut # (Auto) (2.0 - 7.6 x10 3/uL) 8.63 H Lymph # (Auto) (1.0 - 3.8 x10 3/uL) 1.81 Dubois # (Auto) (0.1 - 0.8 x10 3/uL) [...] 0515: [Embedded Image Not Available] Microbiology: 10/13 015 URINE: Urine Culture - RES YEAST Radiology [...] MD on 0 10/14/21 at 1555 RPT #:[id number] END OF REPORT 2021-10-14 13:29:00-00:00 [facility] Endocrinology Progress Note REPORT#:[id number] REPORT STATUS: Signed DATE:10/14/21 TIME: 1329 PATIENT: HARLEEN MANZANO UNIT #: [id number] ROOM/BED: [place] [address] : 80 AGE: 40 SEX: F ATTEND: Laura Trnih ADM AUTHOR: Gino Hernandez * ALL edits or amendments must be made on the el [employer]/computer document * Subjective Chief complaint: f/u DM [...] Q8H SUBQ Propofol (DIPRIVAN 1,000MG/100ML) 100 ML TITRAT E IV (CKD) Lactated Ringer's (LACTATED RINGERS) 1,000 [...] rhythm Genitourinary: not indicated Musculoskeletal: normal inspection Neuro/FLIGHT FOLLOWER: alert Findings/data: Laboratory Tests: 10/14 10/14 10/14 [...] % (Auto) (14.0 - 32.0 %) 15.0 Dubois % (Auto) (4.8 - 9.0 %) 11.6 H Eos % (Auto) (0.3 - 3.7 %) 0.3 Baso % (Auto) (0.0 - 2.0 %) 0.2 Neut # (Auto) (2.0 - 7.6 x10 3/uL) 8.63 H Lymph # (Auto) (1.0 - 3.8 x10 3/uL) 1.81 Dubois # (Auto) (0.1 - 0.8 x10 3/uL) [...] % (Auto) (14.0 - 32.0 %) 15.0 Dubois % (Auto) (4.8 - 9.0 %) 11.6 H Eos % (Auto) (0.3 - 3.7 %) 0.3 Baso % (Auto) (0.0 - 2.0 %) 0.2 Neut # (Auto) (2.0 - 7.6 x10 3/uL) 8.63 H Lymph # (Auto) (1.0 - 3.8 x10 3/uL) 1.81 Dubois # (Auto) (0.1 - 0.8 x10 3/uL) [...] Report Impression - Status: SIGNED Entered: 10/14/2021 8400 IMPRESSION: 1. There are prominent bilateral interstitial marleny ng markings. This may be due to pulmonary edema or atypical pneumo nitis. 2. There are opacities in the right lung base. T his may be due to the alveolar component of pulmonary edema, atele ctasis, or pneumonia. Impression By: [email or web address] - Abdi Suzette, M.D. Diagnosis, Assessment Plan Free Text A [...] MD on 0 10/17/21 at 1229 RPT #:[id number] END OF REPORT 2021-10-14 12:12:00-00:00 [facility] ([facility]) Neurology Progress Note REPORT#:[id number] REPORT STATUS: Signed DATE:10/14/21 TIME: 1212 PATIENT: HARLEEN MANZANO UNIT #: [id number] ROOM/BED: [place] [address] : 80 AGE: 40 SEX: F ATTEND: Laura Trinh ADM AUTHOR: Rj Menjivar MD * ALL edits or amendments must be made on the [employer]/computer document * Subjective Comments: Video EEG without focal triphasic waves or dysfu nction or epileptiform discharges. No acute changes. Remains intubated on precedex. Review of Systems Free Text ROS Notes Free Text ROS Notes: KATHERYN 2/2 pt condition Objective General VS: Last Documented: Result Date Time Pulse Ox 100 10/14 1204 FiO2 40 10/14 1204 Pulse 86 10/14 1204 O2 Delivery Ventilator 10/14 0750 B/P [...] REQUIRING TF TO MEET, NEEDS Nutrition prescription: VIT AL HP @ 65 ML/HR; FWF @ 30 [...] 500 PEEP (cmH2O) 5 Laboratory Tests 10/1448 514 20 2000 163 Chemistry Sodium (134 - 147 mEq/L) 139 [...] 110 MG/DL) 215 H Laboratory Tests 10/14 514 Hematology WBC (4.5 [...] % (Auto) (14.0 - 32.0 %) 15.0 Dubois % (Auto) (4.8 - 9.0 %) 11.6 H Eos % (Auto) (0.3 - 3.7 %) 0.3 Baso % (Auto) (0.0 - 2.0 %) 0.2 Neut # (Auto) (2.0 - 7.6 x10 3/uL) 8.63 H Lymph # (Auto) (1.0 - 3.8 x10 3/uL) 1.81 Dubois # (Auto) (0.1 - 0.8 x10 3/uL) [...] Report Impression - Status: SIGNED Entered: 10/14/2021 7675 IMPRESSION: 1. There are prominent bilateral interstitial marleny ng markings. This may be due to pulmonary edema or atypical pneumo nitis. 2. There are opacities in the right lung base. T his may be due to the alveolar component of pulmonary edema, atele ctasis, or pneumonia. Impression By: [email or web address] - Abdi Bradford M.D. Results: labs reviewed, [...] Menjivar MD on 09/30 at 1217 RPT #:[id number] END OF REPORT 2021-10-14 11:23:00-00:00 [facility] Hospitalist Progress Note REPORT#:[id number] REPORT STATUS: Signed DATE:10/14/21 TIME: 1123 PATIENT: HARLEEN MANZANO UNIT #: [id number] ROOM/BED: [facility]28-1 : 80 AGE: 40 SEX: F ATTEND: Laura Trinh ADM AUTHOR: Laura Trinh MD * ALL edits or amendments must be made on the [employer]/computer document * Subjective Chief complaint: On spontaneous [...] soft, no distention Extremities: b/l feet wound Neuro/FLIGHT FOLLOWER: altered mental status Skin: dry Psychiatry: unable [...] 10/14 10/14 10/14 10/13 10/13 0948 0515 20 2000 1639 Chemistry Sodium (134 - 147 [...] % (Auto) (14.0 - 32.0 %) 15.0 Dubois % (Auto) (4.8 - 9.0 %) 11.6 H Eos % (Auto) (0.3 - 3.7 %) 0.3 Baso % (Auto) (0.0 - 2.0 %) 0.2 Neut # (Auto) (2.0 - 7.6 x10 3/uL) 8.63 H Lymph # (Auto) (1.0 - 3.8 x10 3/uL) 1.81 Dubois # (Auto) (0.1 - 0.8 x10 3/uL) [...] Trinh MD on 2 at 1515 RPT #:[id number] END OF REPORT 2021-10-14 09:28:00-00:00 [facility] ([facility]) Electroencephalogram-EEG REPORT#:[id number] REPORT STATUS: Signed DATE:10/14/21 TIME: 927 PATIENT: HARLEEN MANZANO UNIT #: [id number] ROOM/BED: [facility]-1 : 80 AGE: 40 SEX: F ATTEND: Shoaib Shepherd MD ADM AUTHOR: Maegan Munoz MD * ALL edits or amendments must be made on the [employer]/computer document * Procedure Procedure Date of procedure: 10/14/21 Procedure performed: continuous VEEG Indication: seizure, status epilepticus Impression/Conclusion: Date of procedure: 10/13-09/2021 Procedure performed: continuous VEEG Indication: seizure, status epilepticus Impression/Conclusion: Begin Time: 10/13/2021 226 pm End Time: 10/14/2021 626 am TECHNICAL SUMMARY: This is an adult [place] [...] 60-90 beats per minute. 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 There are no definite areas of epileptiform activity noted. Electronically Signed by Maegan Munoz MD o n 11/23/21 at 1936 RPT #:[id number] END OF REPORT 2021-10-13 16:05:00-00:00 [facility] Podiatry Progress Note REPORT#:[id number] REPORT STATUS: Signed DATE:10/13/21 TIME: 1605 PATIENT: HARLEEN MANZANO UNIT #: [id number] ROOM/BED: [facility]- : 80 AGE: 40 SEX: F ATTEND: Laura Trinh ADM AUTHOR: Fermin Perea DPM * ALL edits or amendments must be made on the [employer] document * Subjective Chief complaint: left and [...] Fermin Perea DPM on at 1608 RPT #:[id number] END OF REPORT 2021-10-13 15:17:00-00:00 [facility] ([facility]) Endocrinology Progress Note REPORT#:[id number] REPORT STATUS: Signed DATE:10/13/21 TIME: 1517 PATIENT: HARLEEN MANZANO UNIT #: [id number] ROOM/BED: [place] [address] : 80 AGE: 40 SEX: F ATTEND: Laura Trinh ADM AUTHOR: Gino Hernandez APRNNP * ALL edits or amendments must be made on the [employer] document * Subjective Chief complaint: f/u DM I Lantus had to be held last night now back on vital protein TF Objective General VS: Last Documented: Result Date Time Pulse Ox 97 07/ 1204 Temp 98.4 07/ 1204 Pulse 88 07/ 1204 Resp 39 07/ 1204 B/P 159/121 07/05 1200 B/P Mean 136 07/05 1200 FiO2 97 07/05 0822 O2 Delivery Ventilator / 0822 O2 [...] intubated Genitourinary: not indicated Musculoskeletal: normal inspection Neuro/FLIGHT FOLLOWER: altered mental status Findings/data: Laboratory Tests: 10/13 [...] % (Auto) (14.0 - 32.0 %) 23.4 Dubois % (Auto) (4.8 - 9.0 %) 12.9 H Eos % (Auto) (0.3 - 3.7 %) 0.3 Baso % (Auto) (0.0 - 2.0 %) 0.2 Neut # (Auto) (2.0 - 7.6 x10 3/uL) 7.39 Lymph # (Auto) (1.0 - 3.8 x10 3/uL) 2.77 Dubois # (Auto) (0.1 - 0.8 x10 3/uL) [...] pH (5.0 - 7.0) 5.0 Ur Specific [place] (1.005 - 1.030) 1.005 Urine Protein (NEGATIVE) [...] % (Auto) (14.0 - 32.0 %) 23.4 Dubois % (Auto) (4.8 - 9.0 %) 12.9 H Eos % (Auto) (0.3 - 3.7 %) 0.3 Baso % (Auto) (0.0 - 2.0 %) 0.2 Neut # (Auto) (2.0 - 7.6 x10 3/uL) 7.39 Lymph # (Auto) (1.0 - 3.8 x10 3/uL) 2.77 Dubois # (Auto) (0.1 - 0.8 x10 3/uL) [...] pH (5.0 - 7.0) 5.0 Ur Specific [place] (1.005 - 1.030) 1.005 Urine Protein (NEGATIVE) [...] RADIOLOGY - XR CHEST 1 V 10/13 0516 Report Impression - Status: SIGNED Entered: 10/13/2021 [...] MD on 0 10/17/21 at 1229 RPT #:[id number] END OF REPORT 2021-10-13 15:02:00-00:00 [facility] ([facility]) Infectious Dis. Progress Note REPORT#:[id number] REPORT STATUS: Signed DATE:10/13/21 TIME: 1502 PATIENT: HARLEEN MANZANO UNIT #: [id number] ROOM/BED: [facility]-1 : 80 AGE: 40 SEX: F ATTEND: Laura Trinh ADM AUTHOR: Pradip Akhtar MD, MD * ALL edits or amendments must be made on the [employer]/computer document * Subjective Chief complaint: DKA HPI: [...] Resp B/P B/P Mean Pulse Ox FiO2 07/04-07/05 97.3-99.3 82-118 10-56 114-199/57-12 1 81-137 40-100 30-97 Last Documented: Result Date Time Pulse Ox 97 07/ 1204 Temp 98.4 07/05 1204 Pulse 88 07/05 1204 Resp 39 07/05 1204 B/P 159/121 07/05 1200 B/P Mean 136 07/05 1200 FiO2 97 07/05 0822 O2 Delivery Ventilator / 0822 O2 [...] % (Auto) (14.0 - 32.0 %) 23.4 Dubois % (Auto) (4.8 - 9.0 %) 12.9 H Eos % (Auto) (0.3 - 3.7 %) 0.3 Baso % (Auto) (0.0 - 2.0 %) 0.2 Neut # (Auto) (2.0 - 7.6 x10 3/uL) 7.39 Lymph # (Auto) (1.0 - 3.8 x10 3/uL) 2.77 Dubois # (Auto) (0.1 - 0.8 x10 3/uL) [...] (0.0 - 0.1 x10 3/uL) 0. 00 Laboratory Tests 10/13 10/13 0153 8723 Urines Urine Color (YEL/STRAW) YELLOW Urine Appearance (CLEAR) SL CLOUDY Urine pH (5.0 - 7.0) 5.0 Ur Specific [place] (1.005 - 1.030) 1.005 Urine Protein (NEGATIVE) [...] lumen tr iple Internal jugular Right Inserted 10/08/217 Provider comments on imported nursing data: [] [...] Plan discussed with: admitting physician, thais mancilla ([facility]) Electronically Signed by Pradip Akhtar MD, MD on at 1508 RPT #:[id number] END OF REPORT 2021-10-13 14:02:00-00:00 [facility] ([facility]) Nephrology Progress Note REPORT#:[id number] REPORT STATUS: Signed DATE:10/13/21 TIME: 1402 PATIENT: HARLEEN MANZANO UNIT #: [id number] ROOM/BED: [place] [address] : 80 AGE: 40 SEX: F ATTEND: Laura Trinh ADM AUTHOR: Mary Steiner MD * ALL edits or amendments must be made on the [employer]/computer document * Subjective Chief complaint: Chart reviewed [...] Genitourinary: urinary catheter Extremities: trace visible edema Neuro/FLIGHT FOLLOWER: on vent, per RN, does not follow comm ands Psychiatry: unable to evaluate Results Findings/Data: Laboratory Tests 10/13 0319 Blood [...] % (Auto) (14.0 - 32.0 %) 23.4 [place] % (Auto) (4.8 - 9.0 %) 12.9 H Eos % (Auto) (0.3 - 3.7 %) 0.3 Baso % (Auto) (0.0 - 2.0 %) 0.2 Neut # (Auto) (2.0 - 7.6 x10 3/uL) 7.39 Lymph # (Auto) (1.0 - 3.8 x10 3/uL) 2.77 Dubois # (Auto) (0.1 - 0.8 x10 3/uL) [...] pH (5.0 - 7.0) 5.0 Ur Specific [place] (1.005 - 1.030) 1.005 Urine Protein (NEGATIVE) [...] MD on 0 10/13/21 at 1632 RPT #:[id number] END OF REPORT 2021-10-13 13:32:00-00:[address] [facility] Critical Care Progress Note REPORT#:[id number] REPORT STATUS: Signed DATE:10/13/21 TIME: 1332 PATIENT: HARLEEN MANZANO UNIT #: [id number] ROOM/BED: [address] : 80 AGE: 40 SEX: F ATTEND: Laura Trinh ADM AUTHOR: Ira Salazar FIRER RETORT * ALL edits or amendments must be made on the [employer]/itzat document * Subjective Chief complaint: AMS HPI: 40 year old female with hist ory of DM, obesity. [facility] on with complaints of lethar gy, weakness, nausea, and vomiting. Pt was intubated for airway protection then t x to [facility] d/t bed availabilty. She was found to [...] 100% OF ESTIMATED NEEDS Dietitian name: Travis Husseinrand, DIET Assessment completed: 10/12/21 Provider comments on [...] no cyanosis, no edema Musculoskeletal normal inspection Neuro/FLIGHT FOLLOWER: altered mental status, disoriented, n o motor [...] radiographic evidence for osteomyelitis. Impression By: Bryanna Maers M.D. Results: labs reviewed, vital signs reviewed, [...] of care with the critical [facility]. Code status: full code Plan discussed with: admitting physician, collab orating MD, nurse, interdisc care team, pharmacy/pharmacist Critical care time: Minutes: 33 Quality: Gen Med Crit Care VTE Prophylaxis VTE prophylaxis initiated: yes Electronically Signed by Ira Salazar NP on 0 10/13/21 at 1443 [facility] #:[id number] END OF REPORT 2021-10-13 11:47:00-00:00 [facility] ([facility]) Neurology Consultation Note REPORT#:[id number] REPORT STATUS: Signed DATE:10/13/21 TIME: 1147 PATIENT: HARLEEN MANZANO UNIT #: [id number] ROOM[address]BED: [address] : [address] AGE: 40 SEX: F ATTEND: Laura Trinh ADM AUTHOR: Rj Menjivar MD * ALL edits or amendments must be made on the el [employer]/computer document * History of Present Illness HPI Requesting clinician: KEL Salazar Reason for consult: encephalopathy HPI: History is obtained from chart and staff as henrietta ent intubated. Attempted to reach patient's spouse Eryn Wilcox ([phone] ) however went to voicemail. Patient's other [...] 97 10/13 0822 O2 Delivery Ventilator 10/13 821 Pulse 107 / 0822 Temp 37.0 10/13 0400 B/P 156/77 10/13 0300 B/P Mean 110 10/13 0300 Resp 17 10/13 0300 O2 Flow Rate 15.0 07/ 1600 PATIENT WEIGHT: Weight (lb): 414 Weight [...] % (Auto) (14.0 - 32.0 %) 23.4 Dubois % (Auto) (4.8 - 9.0 %) 12.9 H Eos % (Auto) (0.3 - 3.7 %) 0.3 Baso % (Auto) (0.0 - 2.0 %) 0.2 Neut # (Auto) (2.0 - 7.6 x10 3/uL) 7.39 Lymph # (Auto) (1.0 - 3.8 x10 3/uL) 2.77 Dubois # (Auto) (0.1 - 0.8 x10 3/uL) [...] pH (5.0 - 7.0) 5.0 Ur Specific Ashton (1.005 - 1.030) 1.005 Urine Protein (NEGATIVE) [...] Menjivar MD on 08/30 at 1224 RPT #:[id number] END OF REPORT 2021-10-13 10:42:00-00:00 [facility] ([facility]) Hospitalist Progress Note REPORT#:[id number] REPORT STATUS: Signed DATE:10/13/21 TIME: 1041 PATIENT: HARLEEN MANZANO UNIT #: [id number] ROOM/BED: [place] [address] : 80 AGE: 40 SEX: F ATTEND: Laura Trinh ADM AUTHOR: Laura Trinh MD * ALL edits or amendments must be made on the [employer] document * Subjective Chief complaint: Patient intubated, sedated, weaning off sedation Objective General VS/I O: Vital Signs: Date Time Temp Pulse Resp B/P B/P Pulse O2 O2 F low FiO2 Mean Ox Delivery Rate 07 1902 97.0 68 17 100 07/05 1900 [...] (DC) Polyethylene Glycol (MIRALAX) 17 GM BID FEED-TU [...] soft, no distention Extremities: b/l feet wound Neuro/FLIGHT FOLLOWER: altered mental status Skin: dry Psychiatry: unable [...] % (Auto) (14.0 - 32.0 %) 23.4 Dubois % (Auto) (4.8 - 9.0 %) 12.9 H Eos % (Auto) (0.3 - 3.7 %) 0.3 Baso % (Auto) (0.0 - 2.0 %) 0.2 Neut # (Auto) (2.0 - 7.6 x10 3/uL) 7.39 Lymph # (Auto) (1.0 - 3.8 x10 3/uL) 2.77 Dubois # (Auto) (0.1 - 0.8 x10 3/uL) [...] pH (5.0 - 7.0) 5.0 Ur Specific Ashton (1.005 - 1.030) 1.005 Urine Protein (NEGATIVE) [...] IMPRESSION: Stable chest. Impression By: [email or web address] Esau Stein. RADIOLOGY - XR FOOT 2 VIEWS BI [...] for airway protection, sedated Failed CPAP trial 7/2 ICC on board Sepsis: Leukocytosis, tachycardia, JAYLEEN, [...] Trinh MD on 2 at 1920 RPT #:[id number] END OF REPORT 2021-10-13 10:34:00-00:00 [facility] ([facility]) Electroencephalogram-EEG REPORT#:[id number] REPORT STATUS: Signed DATE:10/13/21 TIME: 1034 PATIENT: HARLEEN MANZANO UNIT #: [id number] ROOM/BED: [place] [address] : 80 AGE: 40 SEX: F ATTEND: Laura Trinh ADM AUTHOR: Maegan Ricardo MD * ALL edits or amendments must be made on the [employer]/computer document * Procedure Procedure Date of procedure: [...] Maegan Ricardo MD 10/13/21 at 1110 RPT #:[id number] END OF REPORT 2021-10-12 15:14:00-00:00 [facility] ([facility]) Clinical Note REPORT#:[id number] REPORT STATUS: Signed DATE:10/12/21 TIME: 1514 PATIENT: HARLEEN MANZANO UNIT #: [id number] ROOM/BED: [place] [address] : 80 AGE: 40 SEX: F ATTEND: Laura Trinh ADM AUTHOR: Filipe Owens MD * ALL edits or amendments must be made on the el [employer]/computer document * Clinical Note Note: [id number] Electronically Signed by Filipe Owens MD on at 1514 [facility] #:[id number] END OF REPORT 2021-10-12 15:14:00-00:00 [id number] [place] [address] PATIENT NAME: HARLEEN MANZANO ADMIT DATE: 2 ACCOUNT NO: [id number] ROOM NO: [facility] AGE: 40 REPORT TYPE: PROGRESS NOTE [...] ill. Dictated By: Filipe Owens MD WT: PN:GADITHYA/OSMIN/NTS Conf#: [id number]#: [id number] Authenticated by Filipe Owens MD On 10/31/2021 08 :40:11 AM Electronically Signed by Filipe Owens MD on 10/31 at 0840 PATIENT NAME: HARLEEN MANZANO 8326 2021-10-12 12:08:00-00:00 [facility] Hospitalist Progress Note REPORT#:[id number] REPORT STATUS: Signed DATE:10/12/21 TIME: 1208 PATIENT: HARLEEN MANZANO UNIT #: [id number] ROOM/BED: [place] [address] : 80 AGE: 40 SEX: F ATTEND: Laura Trinh ADM AUTHOR: Laura Trinh MD * ALL edits or amendments must be made on the [employer]/computer document * Subjective Chief complaint: Patient intubated, sedated, weaning off sedation Objective General VS/I O: Vital Signs: Date Time Temp Pulse Resp B/P B/P Pulse O2 O2 F low FiO2 Mean Ox Delivery Rate 10/12 1413 [...] 2245 98 100 30 07/03 2200 18 / 2200 85 07/03 2200 98.2 07/03 2200 66 07/03 2200 87/54 07/03 2200 99 07/03 2100 18 07/03 2100 99 07/03 2100 98.6 07/03 2100 75 07/03 2100 104/57 07/03 2100 100 07/03 1999 18 071999 97 07/03 1999 98.8 07/03 1999 98.8 Ventilator 30 07/03 2000 Ventilator 30 07/03 1999 67 07/03 1999 95/52 07/03 1999 100 07/03 1944 99 100 30 07/03 1900 18 07/03 1900 92 07/03 1900 98.4 07/03 1900 69 07/03 1900 94/53 07/03 1900 99 07/03 1616 97 100 30 24 hour I O ending at 0700: 10/12 0700 07/ 1900 Intake Total 1669.00 1753.00 Output Total [...] soft, no distention Extremities: b/l feet wound Neuro/FLIGHT FOLLOWER: altered mental status Skin: dry Psychiatry: unable [...] (Auto) (14.0 - 32.0 %) 37.5 H Dubois % (Auto) (4.8 - 9.0 %) 12.2 H Eos % (Auto) (0.3 - 3.7 %) 0.1 L Baso % (Auto) (0.0 - 2.0 %) 0.2 Neut # (Auto) (2.0 - 7.6 x10 3/uL) 6.10 Lymph # (Auto) (1.0 - 3.8 x10 3/uL) 4.63 H Dubois # (Auto) (0.1 - 0.8 x10 3/uL) [...] attest that the foregoing medication list in [facility] medical record is true, accurate, and complete to the best of my knowled ge. Electronically Signed by Laura Trinh MD on 2 at 1623 RPT #:[id number] END OF REPORT 2021-10-12 08:16:00-00:00 [facility] Critical Care Progress Note REPORT#:[id number] REPORT STATUS: Signed DATE:10/12/21 TIME: 0816 PATIENT: HARLEEN MANZANO UNIT #: [id number] ROOM/BED: [facility]-1 : 80 AGE: 40 SEX: F ATTEND: Laura Trinh ADM AUTHOR: Ira Salazar FIRER RETORT * ALL edits or amendments must be made on the el [employer]/computer document * Subjective Chief complaint: AMS HPI: 40 year old female with hist ory of DM, obesity. Presented [facility] on with complaints of lethar gy, weakness, nausea, and vomiting. Pt was intubated for airway protection then t x to [facility] d/t bed availabilty. She was found to [...] no cyanosis, no edema Musculoskeletal normal inspection Neuro/FLIGHT FOLLOWER: altered mental status, disoriented, n o motor deficits, no sensory deficits Skin: dry, intact Psychiatry: unable to evaluate Results Findings/data: Laboratory Tests 10/12 0626 Blood Gas Puncture Site R Radial O2 [...] (Auto) (14.0 - 32.0 %) 37.5 H Dubois % (Auto) (4.8 - 9.0 %) 12.2 H Eos % (Auto) (0.3 - 3.7 %) 0.1 L Baso % (Auto) (0.0 - 2.0 %) 0.2 Neut # (Auto) (2.0 - 7.6 x10 3/uL) 6.10 Lymph # (Auto) (1.0 - 3.8 x10 3/uL) 4.63 H Dubois # (Auto) (0.1 - 0.8 x10 3/uL) [...] 0450: [Embedded Image Not Available] Microbiology: 10/11 0858 BLOOD: Blood Culture - RECD 10/11 0858 BLOOD: Blood Culture - RECD 10/10 1755 [...] of care with the critical ca re jail guard. Plan discussed with: lg dickerson MD, consultants, nurse, interdisc care team, pharmacy/pharmacist Critical care time: Minutes: 35 Quality: Gen Med Crit Care VTE Prophylaxis VTE prophylaxis initiated: yes Electronically Signed by Ira Salazar FIRER RETORT on 0 10/12/21 at 1407 [facility] #:[id number] END OF REPORT 2021-10-11 20:26:00-00:00 [facility] Endocrinology Progress Note REPORT#:[id number] REPORT STATUS: Signed DATE:10/11/21 TIME: 2025 PATIENT: HARLEEN MANZANO UNIT #: [id number] ROOM/BED: [place] [address] : 80 AGE: 40 SEX: F ATTEND: Laura Trinh MD ADM AUTHOR: Gino Hernandez * ALL edits or amendments must be made on the [employer]/computer document * Subjective Chief complaint: f/u DM I on TF insulin gtt off Objective General VS: Last Documented: Result Date Time Pulse Ox 100 / 1944 FiO2 30 / 1944 Pulse 99 / 1944 B/P 110/70 / [...] intubated Genitourinary: not indicated Musculoskeletal: normal inspection Neuro/FLIGHT FOLLOWER: altered mental status Findings/data: Laboratory Tests: 10/11 [...] 1.61 ng/dL) 1.0 10/11 10/11 10/11 10/11 6896 0333 0329 0204 Blood Gas Puncture Site R Radial O2 [...] % (Auto) (14.0 - 32.0 %) 31.2 Dubois % (Auto) (4.8 - 9.0 %) 10.4 H Eos % (Auto) (0.3 - 3.7 %) 0.1 L Baso % (Auto) (0.0 - 2.0 %) 0.2 Neut # (Auto) (2.0 - 7.6 x10 3/uL) 9.16 H Lymph # (Auto) (1.0 - 3.8 x10 3/uL) 5.02 H Dubois # (Auto) (0.1 - 0.8 x10 3/uL) [...] Date/Time Procedure - Status Source Growth 10/11 08 Blood Culture - RECD BLOOD 10/11 0858 [...] or pneumonia. Impression By: Melody Pack M.D. Laboratory Tests: 10/11 10/11 10/11 [...] % (Auto) (14.0 - 32.0 %) 31.2 Dubois % (Auto) (4.8 - 9.0 %) 10.4 H Eos % (Auto) (0.3 - 3.7 %) 0.1 L Baso % (Auto) (0.0 - 2.0 %) 0.2 Neut # (Auto) (2.0 - 7.6 x10 3/uL) 9.16 H Lymph # (Auto) (1.0 - 3.8 x10 3/uL) 5.02 H Dubois # (Auto) (0.1 - 0.8 x10 3/uL) [...] the abdomen or pelvis . Impression By: Carol AnnG Misa Bsoton M.D. CAT SCAN - CT HEAD/BRAIN W/O [...] Mooney MD on 0 10/17/21 at 1228 [facility] #:[id number] END OF REPORT 2021-10-11 19:59:00-00:00 [facility] Nephrology Consultation Note REPORT#:[id number] REPORT STATUS: Signed DATE:10/11/21 TIME: 1958 PATIENT: HARLEEN MANZANO UNIT #: [id number] ROOM/BED: [place] [address] : 80 AGE: 40 SEX: F ATTEND: Laura Trinh ADM AUTHOR: Gabriela Higginbotham MD * ALL edits or amendments must be made on the [employer]/computer document * History of Present Illness Requesting clinician: Dr. Trinh Reason for consult: Elevated serum Cr Fluid, electrolyte, and acid/base management Chief complaint: AMS PCP: PCP: No Primary or Family Physician HPI: Patient is a 40 years old female who was admitted to [facility] for AMS, DKA, resp failure, JAYLEEN, COVID-19. She is currently in ICU, intubated and on vent. On IVF. Off Dopamine and Insulin drips. Nurse at formerly [facility]. Serum Cr at 3.9 BUN 49. As [...] Delivery Rate 10/11 1944 99 100 30 10/11 1616 97 100 30 10/11 1600 36.6 99 17 110/70 83 100 [...] 2014 16 07/02 2014 98 07/02 2014 36.8 07/02 2015 83 07/02 2015 116/58 07/02 2014 99 07/02 1999 15 07/02 1999 104 07/02 1999 36.7 07/02 1999 Ventilator 30 07/02 2000 89 10/11 1999 129/62 10/11 1999 100 24 hour I [...] Dextrose/Water (DEXTROSE 50% W SYRINGE) 50 ML A SDIR PRN IV (CKD) Dextrose/Water (Dextrose 10% W) [...] isolation Genitourinary: urinary catheter Extremities: trace edema Neuro/FLIGHT FOLLOWER: on vent Psychiatry: unable to evaluate Results [...] % (Auto) (14.0 - 32.0 %) 31.2 Dubois % (Auto) (4.8 - 9.0 %) 10.4 H Eos % (Auto) (0.3 - 3.7 %) 0.1 L Baso % (Auto) (0.0 - 2.0 %) 0.2 Neut # (Auto) (2.0 - 7.6 x10 3/uL) 9.16 H Lymph # (Auto) (1.0 - 3.8 x10 3/uL) 5.02 H Dubois # (Auto) (0.1 - 0.8 x10 3/uL) [...] to a study dated 10/08/2021. Impression By: Sunny LopezD . RADIOLOGY - XR CHEST 1 V 10/11 [...] follow pt with you. at 1635 RPT #:[id number] END OF REPORT 2021-10-11 13:25:00-00:00 [facility] ([facility]) Critical Care Progress Note REPORT#:[id number] REPORT STATUS: Signed DATE:10/11/21 TIME: 1325 PATIENT: HARLEEN MANZANO UNIT #: [id number] RO[address]BED: [address] : 80 AGE: 40 SEX: F ATTEND: Laura Trinh ADM AUTHOR: Kermit Casas MD * ALL edits or amendments must be made on the [employer]/computer document * Subjective HPI: 40 year old [...] Casas MD on 06/30 at 1501 RPT #:[id number] END OF REPORT 2021-10-11 12:51:00-00:00 [facility]#:[id number] REPORT STATUS: Signed DATE:10/11/21 TIME: 1251 PATIENT: HARLEEN MANZANO UNIT #: [id number] RO[address]BED: [address] : 80 AGE: 40 SEX: F ATTEND: Laura Trinh ADM AUTHOR: Laura Trinh MD * ALL edits or amendments must be made on the [employer]/computer document * Subjective Chief complaint: Patient intubated, sedated, altered off sedation , failed CPAP trial yesterday Objective General VS/I O: Vital Signs: Date Time Temp Pulse Resp B/P B/P Pulse O2 O2 F low FiO2 Mean Ox Delivery Rate 10/11 1200 98.0 90 18 78/48 58 10/11 0800 98.1 99 18 103/55 71 100 [...] 07/02 2030 107/57 07/02 2030 99 07/02 2015 16 07/02 2014 98 07/02 2014 98.2 07/02 2015 83 07/02 2015 116/58 07/02 2015 99 07/02 1999 15 07/02 1999 104 07/02 2000 98.1 07/02 2000 Ventilator 30 07/02 2000 89 07/02 2000 129/62 07/02 2000 100 07/02 1949 99 100 30 07/02 1945 18 07/02 1945 97 07/02 1945 133/64 10/10 194 100 10/10 1930 18 10/10 1930 102 10/10 1930 95 10/10 1930 136/69 10/10 1930 100 10/10 1918 97.5 Ventilator 30 10/10 1915 12 10/10 1914 96 10/10 191 98 10/10 191 141/69 10/10 191 100 10/10 1900 102 10/10 1900 96 10/10 1900 140/68 10/10 1900 99 10/10 1845 118 10/10 1845 97.3 10/10 184 111 10/10 184 156/80 / 1845 100 10/10 1745 111 100 30 [...] soft, no distention Extremities: b/l feet wound Neuro/FLIGHT FOLLOWER: altered mental status Skin: dry Psychiatry: unable [...] H Ammonia (11 - 35 umol/L) 10/10 1920 1916 1809 1805 Chemistry POC Glucose (70 - 110 MG/DL) 260 H 291 H 290 H Lactic Acid (0.4 - 1.9 mmol/L) 1.1 Ammonia (11 - 35 umol/L) 10/10 1729 Chemistry POC Glucose (70 - 110 MG/DL) 273 H Laboratory Tests 10/11 0500 Coagulation INR [...] % (Auto) (14.0 - 32.0 %) 31.2 Dubois % (Auto) (4.8 - 9.0 %) 10.4 H Eos % (Auto) (0.3 - 3.7 %) 0.1 L Baso % (Auto) (0.0 - 2.0 %) 0.2 Neut # (Auto) (2.0 - 7.6 x10 3/uL) 9.16 H Lymph # (Auto) (1.0 - 3.8 x10 3/uL) 5.02 H Dubois # (Auto) (0.1 - 0.8 x10 3/uL) [...] pH (5.0 - 7.0) 5.0 Ur Specific Ashton (1.005 - 1.030) 1.009 Urine Protein (NEGATIVE) [...] the abdomen or pelvis . Impression By: Carol AnnG Misa Boston M.D. CAT SCAN - CT [...] atelectasis, aspiration or pneumonia. Impression By: Melody Pcak M.D. Diagnosis, Assessment Plan Free Text DxA [...] my knowled ge. Electronically Signed by Laura Trnih MD on 2 at 1733 [facility] #:[id number] END OF REPORT 2021-10-10 22:32:00-00:00 [facility] ([facility]) Infect Disease Consult Note REPORT#:[id number] REPORT STATUS: Signed DATE:10/10/21 TIME: 2231 PATIENT: HARLEEN MANZANO UNIT #: [id number] RO[address]BED: [address] : 80 AGE: 40 SEX: F ATTEND: Laura Trinh ADM AUTHOR: Pradip Akhtar MD, MD * ALL edits or amendments must be made on the el [employer]/computer document * History of Present Illness Requesting [...] Resp B/P B/P Mean Pulse Ox FiO2 07/-10/10 96.4-98.1 86-111 18-19 87-138/54-71 65-96 30-100 30-335 Last Documented: Result Date Time Pulse Ox 100 07/ 2227 FiO2 335 / 2227 Pulse 92 07/ 2227 O2 Delivery Ventilator /1999 Temp 97.5 07/02 1918 B/P 120/61 07/02 1600 B/P Mean 80 07/02 1600 O2 Flow Rate 15.0 07/02 1600 Resp 18 07/ 1600 Vital Signs: Date Time Temp Pulse Resp B/P B/P Pulse O2 O2 Flow FiO2 Mean Ox Delivery Rate 07/02 2227 92 100 335 07/02 2000 Ventilator [...] no clubbing Results Findings/Data: Laboratory Tests 10/10 042 Blood [...] (Auto) (14.0 - 32.0 %) 12.1 L Dubois % (Auto) (4.8 - 9.0 %) 11.0 H Eos % (Auto) (0.3 - 3.7 %) 0.0 L Baso % (Auto) (0.0 - 2.0 %) 0.1 Neut # (Auto) (2.0 - 7.6 x10 3/uL) 12.34 H Lymph # (Auto) (1.0 - 3.8 x10 3/uL) 2.01 Dubois # (Auto) (0.1 - 0.8 x10 3/uL) [...] pH (5.0 - 7.0) 5.0 Ur Specific Ashton (1.005 - 1.030) 1.009 Urine Protein (NEGATIVE) [...] 0857 Report Impression - Status: SIGNED Entered: 10/10/2021915 IMPRESSION: Stable radiographic appearance of the chest. Impression By: KhaiCNCarlos A - Esau Gary Results: labs reviewed, turner [...] Akhtar MD, MD on at 2234 RPT #:[id number] END OF REPORT 2021-10-10 21:02:00-00:00 [facility] ([facility]) Endocrinology Consultation REPORT#:[id number] REPORT STATUS: Signed DATE:10/10/21 TIME: 2101 PATIENT: HARLEEN MANZANO UNIT #: [id number] ROOM/BED: [place] [address] : 80 AGE: 40 SEX: F ATTEND: Laura Trinh ADM AUTHOR: Gino Hernandez * ALL edits or amendments must be made on the [employer]computer document * History of Present Illness Requesting Clinician: Reason for consult: DKA Chief complaint: Sepsis DKA intuabted HPI: 40-year-old female with past medical history sig nificant for diabetes who was found unresponsive by her da ughter for unknown period of time. Her GCS was low in ER and glucose was above thousand, serum CO2 was 9 and WBC 20 1K. Patient was resuscitated, intubated and central line was placed in ED. Consulted for DKA. She has PMH morbid ob esity and DM1 presented to [facility] with complaints of lethargy and weakness, [...] ose Cardiovascular: regular rate rhythm Respiratory: intubated Neuro/FLIGHT FOLLOWER: altered mental status Results Findings/Data: Laboratory Tests: [...] pH (5.0 - 7.0) 5.0 Ur Specific Ashton (1.005 - 1.030) 1.009 Urine Protein (NEGATIVE) [...] (Auto) (14.0 - 32.0 %) 12.1 L Dubois % (Auto) (4.8 - 9.0 %) 11.0 H Eos % (Auto) (0.3 - 3.7 %) 0.0 L Baso % (Auto) (0.0 - 2.0 %) 0.1 Neut # (Auto) (2.0 - 7.6 x10 3/uL) 12.34 H Lymph # (Auto) (1.0 - 3.8 x10 3/uL) 2.01 Dubois # (Auto) (0.1 - 0.8 x10 3/uL) [...] Date/Time Procedure - Status Source Growth 10/10 1754 Urine Culture - [facility] URINE 10/10 174 Wound Culture - [facility] FOOT 10/10 0000 MRSA DNA Surveillance Screen - COMP NASAL Recent Impressions: RADIOLOGY - XR CHEST 1 V 10/10 0857 Report Impression - Status: SIGNED Entered: 10/10/2021 0916 IMPRESSION: Stable radiographic appearance of the chest. Impression By: [email or web address] - Esau Gary Diagnosis, Assessment Plan Free [...] MD on 0 10/17/21 at 1228 RPT #:[id number] END OF REPORT 2021-10-10 17:35:00-00:00 [facility] ([facility]) Critical Care Progress Note REPORT#:[id number] REPORT STATUS: Signed DATE:10/10/21 TIME: 1735 PATIENT: HARLEEN MANZANO UNIT #: [id number] ROOM/BED: [facility]-1 : 80 AGE: 40 SEX: F ATTEND: Laura Trinh ADM AUTHOR: Greg Mallory MD * ALL edits or amendments must be made on the el [employer]computer document * Subjective Chief complaint: AMS HPI: she has PMH morbid obesity and DM1 presents to [facility] with complaints of clarissa rgy and [...] B/P Mean 80 10/10 1600 FiO2 100 / 1600 O2 Delivery Ventilator 10/10 1600 O2 Flow Rate 15.0 10/10 1600 Temp 36.6 10/10 1600 Pulse 90 / 1600 Resp 18 10/10 1600 24 hour [...] IV Insulin Glargine (Lantus/Semglee) 25 UNIT BID S UBQ Albumin Human (ALBUMINAR-25%) 50 ML ONCE ONE [...] IV (DC) Propofol (DIPRIVAN 1,000MG/100ML) 100 ML TITRAT E IV (CKD) Lactated Ringer's (LACTATED RINGERS) 1,000 [...] 10/09 10/09 10/09 0000 2309 2234 2136 7 Chemistry Sodium (134 - 147 mEq/L) 137 [...] (Auto) (14.0 - 32.0 %) 12.1 L Dubois % (Auto) (4.8 - 9.0 %) 11.0 H Eos % (Auto) (0.3 - 3.7 %) 0.0 L Baso % (Auto) (0.0 - 2.0 %) 0.1 Neut # (Auto) (2.0 - 7.6 x10 3/uL) 12.34 H Lymph # (Auto) (1.0 - 3.8 x10 3/uL) 2.01 Dubois # (Auto) (0.1 - 0.8 x10 3/uL) [...] Renal consult was placed by primary to fol low. Blood cultures are positive. Continue with antibiotics [...] MD on 0 10/10/21 at 1742 RPT #:[id number] END OF REPORT 2021-10-10 17:05:00-00:00 [facility] ([facility]) Pharmacy Prog.Note-Vancomycin REPORT#:[id number] REPORT STATUS: Signed DATE:10/10/21 TIME: 1705 PATIENT: HARLEEN MANZANO UNIT #: [id number] ROOM/BED: [place] [address] : 80 AGE: 40 SEX: F ATTEND: Laura Trinh ADM AUTHOR: Ericka Evans [facility] * ALL edits or amendments must be made on the [employer]/computer document * Vancomycin Vancomycin Medication Therapy Goal: trough 10-15 mcg/mL Indication for treatment: SSTI Current therapy: New start Day of therapy: Weight: Actual weight (kg): 178 VS and I/O: Vital Signs Date Temp Pulse Resp B/P B/P Mean Pulse Ox FiO2 10/08-10/10 94.5-99.0 62-130 9-37 87-143/50-71 65-98 30-100 30-100 72 hours ending at 0700 10/10 0700 10/09 1900 10/09 0710/08 19010/07 07 1900 Intake 4700.00 4714.00 770.00 Total [...] Method 72 Hour I O Total 10/10 0700 10/09 0700 10/08 0700 Intake Total 9414.00 770.00 [...] chest. Impression By: [email or web address] - Esau Gary Treatment plan: consult, initiation [...] to follow. Electronically Signed by Ericka Evans [facility] on 06/02 at 1722 RPT #:[id number] END OF REPORT 2021-10-10 14:53:00-00:00 [facility] Hospitalist Progress Note REPORT#:[id number] REPORT STATUS: Signed DATE:10/10/21 TIME: 1453 PATIENT: HARLEEN MANZANO UNIT #: [id number] [address] : [address] AGE: 40 SEX: F ATTEND: Laura Trinh ADM AUTHOR: Laura Trinh MD * ALL edits or amendments must be made on the [employer]/computer document * See Addendum Subjective Chief complaint: Patient intubated, sedated, altered off sedation , failed CPAP trial Objective General VS/I O: Vital Signs: Date Time Temp Pulse Resp B/P B/P Pulse O2 O2 F low FiO2 Mean Ox Delivery Rate 10/10 1949 99 100 30 10/10 1918 97.5 Ventilator 30 10/10 1745 111 100 30 10/10 1600 97.9 90 18 120/61 80 30 Ventilator 15.0 100 10/10 1242 98 100 30 10/10 1200 98.0 91 18 100/56 70 30 [...] 104/58 07/01 2200 99 07/01 2100 18 07/01 2100 97 07/01 2100 97.3 07/01 2100 77 07/01 2100 104/58 07/01 2100 [...] soft, no distention Extremities: b/l feet wound Neuro/FLIGHT FOLLOWER: altered mental status Skin: dry Psychiatry: unable to evaluate Results Findings/Data: Laboratory Tests 10/11 419 Blood [...] (Auto) (14.0 - 32.0 %) 12.1 L Dubois % (Auto) (4.8 - 9.0 %) 11.0 H Eos % (Auto) (0.3 - 3.7 %) 0.0 L Baso % (Auto) (0.0 - 2.0 %) 0.1 Neut # (Auto) (2.0 - 7.6 x10 3/uL) 12.34 H Lymph # (Auto) (1.0 - 3.8 x10 3/uL) 2.01 Dubois # (Auto) (0.1 - 0.8 x10 3/uL) [...] pH (5.0 - 7.0) 5.0 Ur Specific [place] (1.005 - 1.030) 1.009 Urine Protein (NEGATIVE) [...] radiographic appearance of the chest. Impression By: KhaiCNCarlos A - Esau Gary Diagnosis, Assessment Plan Free [...] Trinh MD on 2 at 211 RPT #:[id number] END OF REPORT 2021-10-09 15:37:00-00:[address] [facility] Hospitalist Progress Note REPORT#:[id number] REPORT STATUS: Signed DATE:10/09/21 TIME: 1536 PATIENT: HARLEEN MANZANO UNIT #: [id number] ROOM/BED: [facility]23-1 : 80 AGE: 40 SEX: F ATTEND: James Teran MD ADM AUTHOR: Gilberto Siegel DO * ALL edits or amendments must be made on the el Price[employer]/computer document * Subjective Comments: Patient seen and examined, remains intub ated. Discussed case with RN. Still on insulin drip. Objective General VS/I O: Vital Signs: Date Time Temp Pulse Resp B/P B/P Pulse O2 O2 F low FiO2 Mean Ox Delivery Rate 07/ 1309 126 100 35 07/01 1200 98.2 [...] 06/30 2200 112 15 102/53 74 100 /30 2130 110 15 107/59 79 100 06/30 2100 110 17 104/57 76 100 06/30 9 110 100 100 /30 2048 110 20 104/57 72 100 Ventilator [...] non-tender, normal bowel sounds, soft, no distention Neuro/FLIGHT FOLLOWER: altered mental status Skin: dry Results Findings/Data: Laboratory Tests 10/09 10/08 0400 2055 Blood [...] (Auto) (14.0 - 32.0 %) 10.5 L Dubois % (Auto) (4.8 - 9.0 %) 3.6 L Eos % (Auto) (0.3 - 3.7 %) 30.4 H Baso % (Auto) (0.0 - 2.0 %) 0.2 Neut # (Auto) (2.0 - 7.6 x10 3/uL) 11.89 H Lymph # (Auto) (1.0 - 3.8 x10 3/uL) 2.37 Dubois # (Auto) (0.1 - 0.8 x10 3/uL) [...] -Ceftriaxone and azithromycin. -Mechanical ventilation as per jail guard. -Provide stress ulcer prophylaxis and VTE prophy laxis Electronically Signed by Gilberto Siegel DO on 05/02 at 1539 RPT #:[id number] END OF REPORT 2021-10-09 14:20:00-00:00 [facility] ([facility] [facility] Note REPORT#:[id number] REPORT STATUS: Signed DATE:10/09/21 TIME: 1420 PATIENT: HARLEEN MANZANO UNIT #: [id number] ROOM/BED: M323-1 : 80 AGE: 40 SEX: F ATTEND: James Teran MD ADM AUTHOR: Greg Mallory MD * ALL edits or amendments must be made on the [employer]/computer document * Subjective Chief complaint: AMS HPI: she has PMH morbid obesity and DM1 presents to [facility] with complaints of clarissa rgy and [...] Dextrose/Water (DEXTROSE 50% W SYRINGE) 50 ML A SDIR PRN IV (CKD) Dextrose/Water (Dextrose 10% W) [...] L 10/09 10/08 10/08 10/08 0042 2340 7 2107 Chemistry POC Glucose (70 - 110 [...] (Auto) (14.0 - 32.0 %) 10.5 L Dubois % (Auto) (4.8 - 9.0 %) 3.6 L Eos % (Auto) (0.3 - 3.7 %) 30.4 H Baso % (Auto) (0.0 - 2.0 %) 0.2 Neut # (Auto) (2.0 - 7.6 x10 3/uL) 11.89 H Lymph # (Auto) (1.0 - 3.8 x10 3/uL) 2.37 Dubois # (Auto) (0.1 - 0.8 x10 3/uL) [...] MD on 0 10/09/21 at 1455 RPT #:[id number] END OF REPORT 2021-10-09 02:02:00-00:00 [facility] ([facility]) Hospitalist History Physical REPORT#:[id number] REPORT STATUS: Signed DATE:10/09/21 TIME: 0202 PATIENT: HARLEEN MANZANO UNIT #: [id number] ROOM/BED: [place] [address] : 80 AGE: 40 SEX: F ATTEND: James Teran MD ADM AUTHOR: Emilie Ferguson MD * ALL edits or amendments must be made on the [employer]/computer document * History of Present Illness HPI [...] Documented: Result Date Time Pulse Ox 100 10/10 239 B/P 101/58 10/09 0240 B/P Mean 75 10/10 239 Temp 98.2 10/09 024 Pulse 120 10/09 024 Resp 15 10/09 024 FiO2 40 10/09 O2 Delivery Ventilator 10/09 24 hour I O ending at 0700: [...] (Auto) (14.0 - 32.0 %) 10.5 L Dubois % (Auto) (4.8 - 9.0 %) 3.6 L Eos % (Auto) (0.3 - 3.7 %) 30.4 H Baso % (Auto) (0.0 - 2.0 %) 0.2 Neut # (Auto) (2.0 - 7.6 x10 3/uL) 11.89 H Lymph # (Auto) (1.0 - 3.8 x10 3/uL) 2.37 Dubois # (Auto) (0.1 - 0.8 x10 3/uL) [...] -Ceftriaxone and azithromycin. -Mechanical ventilation as per jail guard. -Obtain UA, urine sodium and creatinine. -Provide stress ulcer prophylaxis and VTE prophy laxis Electronically Signed by Emilie Ferguson MD on 0 10/09/21 at 0315 RPT #:[id number] END OF REPORT 2021-10-08 22:12:00-00:00 [facility] ([facility]) Critical Care Consult Note REPORT#:[id number] REPORT STATUS: Signed DATE:10/08/21 TIME: 2211 PATIENT: HARLEEN MANZANO UNIT #: [id number] ROOM/BED: [place] [address] : 80 AGE: 40 SEX: F ATTEND: James Teran MD ADM AUTHOR: Pierre Cordero MD * ALL edits or amendments must be made on the [employer]/computer document * History of Present Illness HPI Requesting clinician: ER Reason for consult: respiratory failure Chief complaint: AMS HPI: she has PMH morbid obesity and DM1 presents to [facility] with complaints of clarissa rgy and [...] (Auto) (14.0 - 32.0 %) 10.5 L Dubois % (Auto) (4.8 - 9.0 %) 3.6 L Eos % (Auto) (0.3 - 3.7 %) 30.4 H Baso % (Auto) (0.0 - 2.0 %) 0.2 Neut # (Auto) (2.0 - 7.6 x10 3/uL) 11.89 H Lymph # (Auto) (1.0 - 3.8 x10 3/uL) 2.37 Dubois # (Auto) (0.1 - 0.8 x10 3/uL) [...] Cordero MD on 09/11 at 2217 RPT #:[id number] END OF REPORT 2021-10-08 21:39:00-00:00 [facility] ([facility] EMERGENCY PROVIDER REPORT REPORT#:[id number] REPORT STATUS: Signed DATE:10/08/21 TIME: 2138 PATIENT: HARLEEN MANZANO UNIT #: [id number] ROOM/BED: [place] [address] AGE: 40 SEX: F PCP PHYS: No Primary or Family Ph ysician SERVICE AUTHOR: Mark Gorman MD * ALL edits or amendments must be made on the [employer]/computer document * HPI-General Illness Free Text HPI Notes Free Text HPI Notes 40-year-old female, history of diabetes. Patient daughter called 911 after patient was found down, unknown period time. Dec reased level of GCS, glucose read "high". On arrival to [facility] in ER, pat ient was evaluated, [...] (Auto) (14.0 - 32.0 %) 10.5 L Dubois % (Auto) (4.8 - 9.0 %) 3.6 L Eos % (Auto) (0.3 - 3.7 %) 30.4 H Baso % (Auto) (0.0 - 2.0 %) 0.2 Neut # (Auto) (2.0 - 7.6 x10 3/uL) 11.89 H Lymph # (Auto) (1.0 - 3.8 x10 3/uL) 2.37 Dubois # (Auto) (0.1 - 0.8 x10 3/uL) [...] Sulfate 100 ML ASDIR PRN 10/08 2129 AC IV 11/07 2128 Electrolytic, Caloric, And Noe [...] Gorman MD on 05/02 at 0025 RPT #:[id number] END OF REPORT 2021-10-08 14:37:00-00:[address] [facility] ([facility]) EMERGENCY PROVIDER REPORT REPORT#:[id number] REPORT STATUS: Signed DATE:10/08/21 TIME:1437 PATIENT: HARLEEN MANZANO UNIT #: [id number] ROOM/BED: : 80 AGE: 40 SEX: F PCP PHYS: DOES_NOT KNOW SERVICE AUTHOR: Chuy Vega MD * ALL edits or amendments must be made on the [employer]/computer document * HPI-Altered Mental Status General Confirmed [...] B/P Mean 92 10/08 1830 FiO2 100 06/30 1830 O2 Delivery Ventilator 10/08 1829 Pulse 104 10/08 183 Resp 20 10/08 1829 Temp 33.0 10/08 1630 O2 Flow Rate [...] sk FiO2 (21 - 100 %) 100 06/30 10/08 1410 1403 Chemistry Lactic Acid (0.4 - 2.0 mmol/L) 2.1 H Coagulation INR (0.8 - 1.2 INR Unit) 1.03 PTT ([place]) (26 - 35 SECONDS) 26.3 PT Patient/Control [...] (Auto) (20.5 - 51.1 %) 13.8 L Dubois % (Auto) (1.7 - 9.3 %) 6.0 Eos % (Auto) (0.0 - 6.0 %) 0.0 Baso % (Auto) (0.0 - 2.0 %) 0.5 Neut # (Auto) (1.8 - 7.6 K/mm3) 19.8 H Lymph # (Auto) (0.6 - 3.2 K/mm3) 3.6 H Dubois # (Auto) (0.3 - 1.1 K/mm3) 1.6 [...] - 7.0 pH UNITS) <=5.0 Ur Specific [place] (1.005 - 1.030 SG) 1.020 Urine Protein [...] possibly. Location: U19 Impression By: KhaiRMErendira - Virgil Zambrano CAT SCAN - CT [...] This exam was performed according to our formerly [facility] ental dose-optimization program, which includes automa kennedy [...] This exam was performed according to our depart ental dose-optimization program, which includes automa kennedy [...] Time-out performed, Oxygen administered, Pulse oximeter applied, thread spooler ros lied, Hand hygiene observed, Standard surgical [...] guardian Patient Position Neutral position Blade/ET Tube/Route [place] scope, ET tube cuffed, Route: oral Procedural [...] AC Bitartrate IV 10/19 0305 1729 Rocuronium [place] 150 MG X1ED STA 10/08 1427 D [...] Sodium Bicarbonate 0 .STK-MED ONE 10/08 1706 D C IV Dextrose/Water 50 ML ASDIR PRN 10/08 [...] Time 1719 Spoke with: Emergency physician Receiving [facility] Transfer Accepted Yes Accepted by: Sherif )( Acceptance Time 171 )( Acceptance Date 10/08/21 Transfer Reason Capacity [...] Vega MD on at 1938 RPT #: [id number] END OF REPORT 2021-10-08 14:24:00-00:00 [id number] [address] [place] [address] PATIENT NAME: HARLEEN MANZANO ADMIT DATE: 2 ACCOUNT NO: [id number] ROOM NO: AGE: 40 REPORT TYPE: eELECTROCARDIOGRAM SEX: F ADMITTING PHYSICIAN: ATTENDING PHYSICIAN: Order: [id number] Test Reason : (Not Selected) Test Date/Time Stamp: TueOct 08 2021 14:24:55 Blood Pressure : 119/062 mmHG Vent. Rate : 098 BPM Atrial Rate : 098 BPM P-R Int : 144 ms QRS Dur : 122 ms QT Int : 400 ms P-R-T Axes : 070 005 075 degree s QTc Int : 510 ms Normal sinus rhythm Confirmed by MD Eloisa, Amir ([id number]) on 4:30:06 PM Referred By: Self Referred Confirmed by:Ramon robert MD at 8703 PATIENT NAME: HARLEEN MANZANO [id number]
--- NOTE | 2022-10-11 16:43 | ER ---
Nurse's Notes [facility] Name: Serjio Armendariz Age: 41 yrs Sex: Female : 1980 Arrival Date: 10/11/2022 Time: 15:53 Bed 9 Private MD: Diagnosis: Encounter for change or removal of nonsurgical wound dressing Presentation: 10/11 16:25 Chief complaint: Patient states: "I didn't want to make the [address] for my wound mb9 care so we came here. I need my wound from my left toe amputation cleaned and redressed.". Coronavirus screen: Vaccine status: Patient reports being unvaccinated. Ebola Screen: No symptoms or risks identified at this time. Initial Sepsis Screen: Does the patient meet any 2 criteria? No. Patient's initial sepsis screen is negative. Does the patient have a suspected source of infection? No. Patient's initial sepsis screen is negative. Risk Assessment: Do you want to hurt yourself or someone else? Patient reports no desire to harm self or others. Onset of symptoms was 2022. 16:25 Method Of Arrival: Wheelchair mb9 16:25 Acuity: ANGÉLICA 4 mb9 Triage Assessment: 16:27 General: Appears in no apparent distress. Behavior is calm, cooperative. Pain: Denies mb9 pain. Neuro: Winters Agitation-Sedation Scale (RASS): 0 - Alert and Calm Level of Consciousness is awake, alert, obeys commands, Oriented to person, place, time, situation, Appropriate for age. Cardiovascular: Patient's skin is warm and dry. Respiratory: Airway is patent Respiratory effort is even, unlabored, Respiratory pattern is regular, symmetrical. Derm: Wound noted left toe amputation. Musculoskeletal: Range of motion: limited in left ankle. STUDY MANAGER: 16:28 LMP N/A - mb9 Historical: - Allergies: 16:26 Sulfa (Sulfonamide Antibiotics); mb9 - Home Meds: 16:26 Insulin: Lantus Sub-Q [Active]; linezolid oral [Active]; mb9 17:10 Levofloxacin Oral [Active]; metronidazole 500 mg Oral tablet [Active]; eh3 - PMHx: 16:26 diabetes mellitus; mb9 - PSHx: 16:26 left toe amputation; mb9 - Immunization history:: Adult Immunizations up to date. - Social history:: Smoking status: Patient denies any tobacco usage or history of. - Family history:: not pertinent. Screenin:28 [facility] ED Fall Risk Assessment (Adult) History of falling in the last 3 months, 9 including since admission No falls in past 3 months (0 pts) Confusion or Disorientation No (0 pts) Intoxicated or Sedated No (0 pts) Impaired Gait Yes (1 pt) Mobility Assist Device Used Yes (1 pt) Altered Elimination No (0 pt) Score/Fall Risk Level 0 - 2 = Low Risk Oriented to surroundings, Maintained a safe environment, Educated pt \\T\\ family on fall prevention, incl call for assistance when getting out of bed. Abuse screen: Denies threats or abuse. Nutritional screening: No deficits noted. Tuberculosis screening: No symptoms or risk factors identified. Assessment: 17:07 General: Appears in no apparent distress. comfortable, Behavior is calm, cooperative, eh3 appropriate for age. Neuro: Level of Consciousness is awake, alert, obeys commands, Oriented to person, place, time, situation. Cardiovascular: Capillary refill < 3 seconds Patient's skin is warm and dry. Respiratory: Airway is patent Respiratory effort is even, unlabored, Respiratory pattern is regular, symmetrical. GI: Abdomen is round non-distended. Derm: Skin is pink, warm \\T\\ dry. Wound noted left foot. Musculoskeletal: Circulation, motion, and sensation intact. Vital Signs: 16:25 BP 116 / 58; Pulse 84; Resp 18; Temp 98.6(O); Pulse Ox 100% on R/A; Weight 156.94 kg; 9 Height 5 ft. 11 in. ; 16:25 Body Mass Index 48.26 (156.94 kg, 180.34 cm) 9 ED Course: 15:55 Patient arrived in ED. im 16:00 Jean-Paul Parson MD is Attending Physician. rt 16:23 Ema Hammonds, CHRISS is Primary Nurse. eh3 16:25 Arm band placed on. [facility] 16:26 Triage completed. 9 16:28 Bed in low position. Call light in reach. Side rails up X 1. Client placed on [facility] continuous cardiac and pulse oximetry monitoring. NIBP monitoring applied. 17:07 Dressings: Kerlix X 4; left foot Vaseline gauze X 1; left foot 4X4s X 1; left foot. eh3 Dressings: Gino wrap X 2, nonslip sock. Irrigation of ulceration on left foot irrigated with normal saline Patient tolerated well. Wound care: was cleaned with Betadine. 17:10 No provider procedures requiring assistance completed. Patient did not have IV access eh3 during this emergency room visit. Administered Medications: No medications were administered Medication: 16:28 VIS not applicable for this client. mb9 Outcome: 16:42 Discharge ordered by . rt 17:11 Discharged to home via wheelchair, with family. eh3 17:11 Condition: stable 17:11 Discharge instructions given to patient, Instructed on discharge instructions, follow up and referral plans. wound care, Demonstrated understanding of instructions, follow-up care, wound care. 17:19 Patient left the ED. 3 Signatures: Ema Hammonds RN RN eh3 Barbie Pritchard RN RN mb9 Jean-Paul Parson MD MD rt Anita Alamo
--- NOTE | 2022-10-11 16:43 | EDPHYS ---
Physician Documentation [facility] Name: Serjio Armendariz Age: 41 yrs Sex: Female : 1980 Arrival Date: 10/11/2022 Time: 15:53 Bed 9 Private MD: ED Physician Jean-Paul Parson HPI: 10/11 17:44 This 41 yrs old Black Female presents to ER via Wheelchair with complaints of Wound rt Check. 17:44 Patient presents to the ED requesting wound redressing of her left foot diabetic wound. rt Patient states that she has been doing this at the ED multiple times over the past month. She denies any worsening pain, other acute complaints. She states that the Betadine is wet leaking from the dressing but otherwise has no other drainage or acute complaints. Symptoms are mild in severity, no other aggravating alleviating factors.. 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 - Social history:: Smoking status: Patient denies any tobacco usage or history of. - Family history:: not pertinent. ROS: 17:45 Constitutional: Negative for fever, chills, and weight loss, Cardiovascular: Negative rt for chest pain, palpitations, and edema, Respiratory: Negative for shortness of breath, cough, wheezing, and pleuritic chest pain, Abdomen/GI: Negative for abdominal pain, nausea, vomiting, diarrhea, and constipation, Neuro: Negative for headache, weakness, numbness, tingling, and seizure, Psych: Negative for depression, anxiety, suicide ideation, homicidal ideation, and hallucinations. 17:45 MS/extremity: Positive for Diabetic foot wound, negative for injury. 17:45 Skin: Positive for Positive for wound, negative for changes. Exam: 17:45 Constitutional: This is a well developed, well nourished patient who is awake, alert, rt and in no acute distress. Head/Face: Normocephalic, atraumatic. Eyes: Pupils equal round and reactive to light, extra-ocular motions intact. Lids and lashes normal. Conjunctiva and sclera are non-icteric and not injected. Cornea within normal limits. Periorbital areas with no swelling, redness, or edema. Neuro: Awake and alert, GCS 15, oriented to person, place, time, and situation. Cranial nerves II-XII grossly intact. Motor strength 5/5 in all extremities. Sensory grossly intact. Cerebellar exam normal. Normal gait. Psych: Awake, alert, with orientation to person, place and time. Behavior, mood, and affect are within normal limits. 17:45 Musculoskeletal/extremity: Surgical wound noted with no surrounding erythema, granulation tissue is noted. There is also 1 to the heel, again with granulation tissue, no purulence noted. There are palpable pulses, sensation is intact. 17:45 Skin: As per MSK exam. Vital Signs: 16:25 BP 116 / 58; Pulse 84; Resp 18; Temp 98.6(O); Pulse Ox 100% on R/A; Weight 156.94 kg; mb9 Height 5 ft. 11 in. ; 16:25 Body Mass Index 48.26 (156.94 kg, 180.34 cm) mb9 MDM: 16:15 Patient medically screened. rt 17:45 Differential diagnosis: Chronic wound, cellulitis, abscess. Data reviewed: vital signs, rt nurses notes. Test considered but Not performed: Labs: Stable vital signs, chronic appearing wound without change, labs not dictated. CT: Stable vital signs, chronically appearing wound, unchanged, CT scan not indicated. Care significantly affected by the following chronic conditions: Diabetes. Counseling: I had a detailed discussion with the patient and/or guardian regarding: the historical points, exam findings, and any diagnostic results supporting the discharge/admit diagnosis, the need for outpatient follow up. 10/11 16:37 Order name: Wound dressing; Complete Time: 17:07 rt Administered Medications: No medications were administered Disposition Summary: 10/11/22 16:42 Discharge Ordered Location: Home rt Problem: an ongoing problem rt Symptoms: have improved rt Condition: Stable rt Diagnosis - Encounter for change or removal of nonsurgical wound dressing rt Followup: rt - With: Private Physician - When: 5 - 6 days - Reason: Discharge Instructions: - Discharge Summary Sheet rt - How to Change Your Wound Dressing rt Forms: - Medication Reconciliation Form rt - Thank You Letter rt - Antibiotic Education rt - Prescription Opioid Use rt - [email or web address] rt Signatures: Ema Hammonds RN RN eh3 Barbie Pritchard RN RN mb9 Jean-Paul Parson MD MD rt Corrections: (The following items were deleted from the chart) 17:46 17:44 Patient presents to the ED requesting wound redressing of her. rt rt
[2022-10-11 17:24] VITALS: BP 116/58; TEMP 98.6; O2SAT 100
== END 2022-10-11 17:19 | disposition home or self-care (01) ==
LOC: ER 15:53
DX: Z48.01 Encounter for change or removal of surgical wound dressing (principal)
CPT/HCPCS: 99283